=== PATIENT | female | born 1945 | race Caucasian/White ===

== ENCOUNTER 2021-05-31 20:54 | Inpatient (IN) ==
--- NOTE | 2021-05-31 22:07 | Emergency Department Note ---
HPI General Chief complaint: Blood Sugar Problem Stated complaint: weakness Time Seen by Provider: 05/31/21 21:56 Source: patient Mode of arrival: ambulatory Limitations: no limitations History of Present Illness HPI Narrative: Narrative: The patient is a 75-year-old female with a history of insulin-dependent diabetes presents today reporting elevated blood sugars. She denies chest pain, fevers, chills, night sweats, rashes, headache or neck pain. Denies any shortness of breath. Related Data Home Medications Medication Instructions Recorded Confirmed amlodipine 5 mg PO DAILY 09/18/17 01/05/21 calcium polycarbophil 1,250 mg PO DAILY 09/18/17 01/05/21 diazepam 5 mg PO TIDP PRN 09/18/17 01/05/21 gabapentin 800 mg PO QIDP 09/18/17 06/01/21 gemfibrozil 600 mg PO BIDAC 09/18/17 01/05/21 insulin NPH isoph U-100 human 60 unit SQ DAILY 09/18/17 01/05/21 [Novolin N] insulin regular human [Novolin R] 0 unit SQ TID 09/18/17 01/05/21 levothyroxine 125 mcg PO DAILY 09/18/17 01/05/21 axfqqwtc-fzj-qtes fum-folic ac 1 ea PO DAILY 09/18/17 01/05/21 omeprazole 20 mg PO BIDAC 09/18/17 01/05/21 pravastatin 20 mg PO HS 09/18/17 01/05/21 tizanidine 4 mg PO TID 09/18/17 01/05/21 propranolol 10 mg PO BID 09/25/17 06/01/21 vit C,Z-Kf-yptly-lutein-zeaxan 1 tab PO DAILY 02/25/18 01/05/21 [Ocuvite] acyclovir 400 mg tablet 400 mg PO QDAY 03/09/20 06/01/21 betamethasone dipropionate 0.05 % See Rx Instructions TOPICAL 03/09/20 01/05/21 topical ointment .COMPLEX escitalopram oxalate 10 mg tablet 10 mg PO QDAY 03/09/20 01/05/21 losartan 50 mg tablet 50 mg PO QDAY 03/09/20 06/01/21 atorvastatin 40 mg PO QHS 06/01/21 06/01/21 levothyroxine 100 mcg PO DAILY 06/01/21 06/01/21 ouuvog-jllyvqba-yrhjxmc [Zenpep] 40,000 cap PO TID 06/01/21 06/01/21 mirtazapine 7.5 mg PO DAILY 06/01/21 06/01/21 Previous Rx's Medication Instructions Recorded albuterol sulfate 1 puff IH Q4-6HP PRN #1 inhaler 09/25/17 naproxen 250 mg PO BIDCC #30 tab 11/13/17 metoclopramide HCl 10 mg PO Q6HP PRN #12 tab 02/25/18 azithromycin 0 mg PO DAILY #6 tab 04/24/18 methylprednisolone 1 packet PO DAILY #1 tab.ds.pk 04/24/18 Allergies Allergy/AdvReac Type Severity Reaction Status Date / Time cephalexin [From Keflex] Allergy Intermediate Swelling Verified 05/31/21 20:56 Nortriptyline Allergy Intermediate Nausea Verified 05/31/21 20:56 penicillin V [From Pen-Vee K] Allergy Intermediate UNKNOWN Verified 05/31/21 20:56 Anistreplase [From Eminase] Allergy Unknown UNKNOWN Verified 05/31/21 20:56 codeine Allergy Unknown UNKNOWN Verified 05/31/21 20:56 fenugreek Allergy Unknown UNKNOWN Verified 05/31/21 20:56 Penicillins Allergy Unknown UNKNOWN Verified 05/31/21 20:56 Sulfa (Sulfonamide Allergy Unknown UNKNOWN Verified 05/31/21 20:56 Antibiotics) promethazine AdvReac Severe Fainting Verified 05/31/21 20:56 Erythromycin Base AdvReac Intermediate Itching Verified 05/31/21 20:56 Review of Systems ROS ROS Narrative: Narrative: All systems ED: reviewed and negative except as stated. 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) Depression (Chronic) Anxiety (Chronic) Hypertension (Chronic) Osteoporosis (Chronic) Rectal pain (Chronic) Low back pain (Chronic) Pain in thoracic spine (Chronic) Age-related osteoporosis with current pathological fracture, vertebra(e), initial encounter for fracture (Chronic) Anemia (Acute) Elevated liver enzymes (Acute) Hyperglycemia due to type 2 diabetes mellitus (Acute) Medical History Acute exacerbation of chronic low back pain Acute exacerbation of chronic obstructive airways disease Age-related osteoporosis with current pathological fracture, vertebra(e), initial encounter for fracture Anterior epistaxis Anxiety Bilateral primary osteoarthritis of hip Bimalleolar ankle fracture Chronic bronchitis Chronic bronchitis with acute exacerbation Dehydration Depression Epistaxis Hypertension Hypoglycemia Hypothyroidism Hypoxia Insomnia Levator syndrome Lipomatosis Low back pain Osteoporosis Pain in thoracic spine Radiculopathy, lumbosacral region Radiculopathy, sacral and sacrococcygeal region Rectal pain Sacrococcygeal pain Surgical History History of surgery Vertebroplasty T12 w/sed 09/28/19 Family History Other No pertinent family history Social History Smoking Status: Never smoker Exam Narrative Narrative: Narrative: General Limitations: no limitations General appearance: Present alert Head Head: Present atraumatic and normocephalic Eye Eye: Present normal appearance, PERRL and EOMI ENT ENT: Present normal exam, normal oropharynx and mucous membranes moist Neck Neck: Present normal inspection, full ROM and trachea midline Chest Chest: Present normal inspection and symmetric chest wall rise Respiratory Respiratory: Present normal lung sounds bilaterally Cardiovascular Cardiovascular: Present regular rate and normal rhythm Adbominal Abdominal: Present soft and normal bowel sounds; Absent tenderness, guarding, rebound and organomegaly Rectal Rectal: Present deferred Extremities Extremities: Present normal inspection and full ROM; Absent tenderness Back Back: Present normal inspection and full ROM; Absent tenderness Neurological Neurological: Present alert, oriented X3, CN II-XII intact, normal gait, motor sensory deficit and reflexes normal Psychiatric Psychiatric: Present normal affect Skin Skin: Present warm (WNL); Absent rash Course Course Course Narrative: ekg interpretation. 05/31/21 11:29 EKG shows no STEMI., Nonspecific EKG. Rate 78, KS interval 160, QRS 88, QTc 488, P waves are upright in leads I, II and III and inverted in aVR, no KS depression or elevation lead II or aVR respectively normal axis, good R wave progression, no acute ST segment elevation depression, no shortened KS interval, no STEMI, nonspecific EKG. Vital Signs Vital signs: Vital Signs Temperature 98.1 F 05/31/21 20:54 Pulse Rate 83 05/31/21 20:54 Respiratory Rate 16 05/31/21 20:54 Blood Pressure 91/40 05/31/21 20:54 Pulse Oximetry (%) 98 05/31/21 20:54 Temperature 97.4 F 06/01/21 04:43 Pulse Rate 78 06/01/21 05:46 Respiratory Rate 14 06/01/21 05:46 Blood Pressure 122/76 06/01/21 04:43 Pulse Oximetry (%) 100 06/01/21 05:46 MDM MDM Narrative Medical decision making narrative: Narrative: Patient is noted to be mildly acidotic as well as have an elevated anion gap with presence of ketones. Her blood sugars have improved significantly. However she is in DKA she was started on insulin drip I spoke with the hospitalist Dr. Gregg who is agreed to admit this patient. Basic facilitated admission orders placed. Lab Data Result diagrams: 05/31/21 22:47 05/31/21 22:47 Labs: Lab Results 05/31/21 05/31/21 05/31/21 Range/Units 22:45 22:47 22:47 WBC 9.1 (4.5-11.0) K/mcL RBC 4.52 (3.59-5.38) M/mcL Hgb 13.7 (11.2-15.7) g/dL Hct 39.3 (34.1-44.9) % MCV 86.9 (80.0-100.0) fL MCH 30.3 (26.0-34.0) pg MCHC 34.9 (31.0-36.0) g/dL RDW 14.4 (11.5-14.5) % Plt Count 236 (140-440) K/mcL MPV 10.3 (7.4-10.4) fL Neut % (Auto) 57.4 (38.0-78.0) % Lymph % (Auto) 28.7 (15.5-49.0) % [place] % (Auto) 11.5 (1.0-12.0) % Eos % (Auto) 1.7 (0.0-7.0) % Baso % (Auto) 0.7 (0.0-2.0) % Lymph # (Auto) 2.61 (1.50-4.80) K/mcL [place] # (Auto) 1.04 H (0.10-0.90) K/mcL Eos # (Auto) 0.15 (0.00-0.70) K/mcL Baso # (Auto) 0.06 (0.00-0.30) K/mcL Absolute Neutrophils 5.22 (1.80-8.00) K/mcL ABG Methemoglobin 0 L (0.4-1.5) % VBG pH 7.28 L (7.32-7.42) U VBG pCO2 26.5 L (41.0-51.0) mmHg VBG pO2 38.6 (25.0-40.0) mmHg VBG HCO3 12.3 L (24.0-28.0) mmol/L VBG Total CO2 13.1 L (25.0-29.0) mmol/L VBG O2 Saturation 67.6 (40.0-70.0) % VBG Base Excess -13 L (-2-3) VBG Lactic Acid (0.5-2.0) mmol/L Carboxyhemoglobin 3.2 H (0.0-1.5) % THgb Total Hemoglobin 13.0 L (13.5-16.5) gm/Dl Sodium 130 L (133-145) mmol/L Potassium 3.8 (3.3-5.1) mmol/L Chloride 96 (96-108) mmol/L Carbon Dioxide 10 L* (22-30) mmol/L Anion Gap 24.0 H (8.0-16.0) BUN 25 H (8-23) mg/dL Creatinine 1.7 H (0.6-1.1) mg/dL GFR Calculation 29 Glucose 255 H (70-105) mg/dL Calcium 9.3 (8.6-10.4) mg/dL Magnesium 2.0 (1.6-2.5) mg/dL Total Bilirubin 0.3 (0.1-1.0) mg/dL AST 151 H (<32) U/L ALT 325 H (<40) U/L Alkaline Phosphatase 174 H (39-117) U/L Total Creatine Kinase (24-170) U/L Troponin T (<0.03) ng/mL NT-Pro-B Natriuret Pep (<450.0) pg/mL Total Protein 6.8 (5.9-8.4) gm/dL Albumin 3.7 (3.2-5.2) gm/dL Globulin 3.1 (2.2-3.7) gm/dL Albumin/Globulin Ratio 1.2 (1.0-2.3) Beta-Hydroxybutyrate 6.53 H (<0.27) mmol/L Ethyl Alcohol (<0.010) gm/dL 05/31/21 05/31/21 05/31/21 Range/Units 22:47 22:47 23:19 WBC (4.5-11.0) K/mcL RBC (3.59-5.38) M/mcL Hgb (11.2-15.7) g/dL Hct (34.1-44.9) % MCV (80.0-100.0) fL MCH (26.0-34.0) pg MCHC (31.0-36.0) g/dL RDW (11.5-14.5) % Plt Count (140-440) K/mcL MPV (7.4-10.4) fL Neut % (Auto) (38.0-78.0) % Lymph % (Auto) (15.5-49.0) % [place] % (Auto) (1.0-12.0) % Eos % (Auto) (0.0-7.0) % Baso % (Auto) (0.0-2.0) % Lymph # (Auto) (1.50-4.80) K/mcL [place] # (Auto) (0.10-0.90) K/mcL Eos # (Auto) (0.00-0.70) K/mcL Baso # (Auto) (0.00-0.30) K/mcL Absolute Neutrophils (1.80-8.00) K/mcL ABG Methemoglobin (0.4-1.5) % VBG pH (7.32-7.42) U VBG pCO2 (41.0-51.0) mmHg VBG pO2 (25.0-40.0) mmHg VBG HCO3 (24.0-28.0) mmol/L VBG Total CO2 (25.0-29.0) mmol/L VBG O2 Saturation (40.0-70.0) % VBG Base Excess (-2-3) VBG Lactic Acid 1.9 (0.5-2.0) mmol/L Carboxyhemoglobin (0.0-1.5) % THgb Total Hemoglobin (13.5-16.5) gm/Dl Sodium (133-145) mmol/L Potassium (3.3-5.1) mmol/L Chloride (96-108) mmol/L Carbon Dioxide (22-30) mmol/L Anion Gap (8.0-16.0) BUN (8-23) mg/dL Creatinine (0.6-1.1) mg/dL GFR Calculation Glucose (70-105) mg/dL Calcium (8.6-10.4) mg/dL Magnesium (1.6-2.5) mg/dL Total Bilirubin (0.1-1.0) mg/dL AST (<32) U/L ALT (<40) U/L Alkaline Phosphatase (39-117) U/L Total Creatine Kinase 82 (24-170) U/L Troponin T < 0.01 (<0.03) ng/mL NT-Pro-B Natriuret Pep (<450.0) pg/mL Total Protein (5.9-8.4) gm/dL Albumin (3.2-5.2) gm/dL Globulin (2.2-3.7) gm/dL Albumin/Globulin Ratio (1.0-2.3) Beta-Hydroxybutyrate (<0.27) mmol/L Ethyl Alcohol (<0.010) gm/dL 05/31/21 06/01/21 Range/Units 23:19 00:39 WBC (4.5-11.0) K/mcL RBC (3.59-5.38) M/mcL Hgb (11.2-15.7) g/dL Hct (34.1-44.9) % MCV (80.0-100.0) fL MCH (26.0-34.0) pg MCHC (31.0-36.0) g/dL RDW (11.5-14.5) % Plt Count (140-440) K/mcL MPV (7.4-10.4) fL Neut % (Auto) (38.0-78.0) % Lymph % (Auto) (15.5-49.0) % [place] % (Auto) (1.0-12.0) % Eos % (Auto) (0.0-7.0) % Baso % (Auto) (0.0-2.0) % Lymph # (Auto) (1.50-4.80) K/mcL [place] # (Auto) (0.10-0.90) K/mcL Eos # (Auto) (0.00-0.70) K/mcL Baso # (Auto) (0.00-0.30) K/mcL Absolute Neutrophils (1.80-8.00) K/mcL ABG Methemoglobin (0.4-1.5) % VBG pH (7.32-7.42) U VBG pCO2 (41.0-51.0) mmHg VBG pO2 (25.0-40.0) mmHg VBG HCO3 (24.0-28.0) mmol/L VBG Total CO2 (25.0-29.0) mmol/L VBG O2 Saturation (40.0-70.0) % VBG Base Excess (-2-3) VBG Lactic Acid (0.5-2.0) mmol/L Carboxyhemoglobin (0.0-1.5) % THgb Total Hemoglobin (13.5-16.5) gm/Dl Sodium (133-145) mmol/L Potassium (3.3-5.1) mmol/L Chloride (96-108) mmol/L Carbon Dioxide (22-30) mmol/L Anion Gap (8.0-16.0) BUN (8-23) mg/dL Creatinine (0.6-1.1) mg/dL GFR Calculation Glucose (70-105) mg/dL Calcium (8.6-10.4) mg/dL Magnesium (1.6-2.5) mg/dL Total Bilirubin (0.1-1.0) mg/dL AST (<32) U/L ALT (<40) U/L Alkaline Phosphatase (39-117) U/L Total Creatine Kinase (24-170) U/L Troponin T (<0.03) ng/mL NT-Pro-B Natriuret Pep 908.9 H (<450.0) pg/mL Total Protein (5.9-8.4) gm/dL Albumin (3.2-5.2) gm/dL Globulin (2.2-3.7) gm/dL Albumin/Globulin Ratio (1.0-2.3) Beta-Hydroxybutyrate (<0.27) mmol/L Ethyl Alcohol < 0.010 (<0.010) gm/dL ED POC Tests ED POC Tests: SHAHID - SARS Antigen Negative Discharge Plan Patient/Caregiver Discharge Instructions Pt seen by TRAIN CALLER/PA only: No Clinical Impression: DKA (diabetic ketoacidosis) Qualifiers: Diabetes mellitus type: other specified (including JACEK) Diabetes mellitus complication detail: without coma Qualified Code(s): E13.10 - Other specified diabetes mellitus with ketoacidosis without coma Patient Disposition: Xfer As Inpt ([facility]) Condition: Serious Discharge Date/Time: 06/01/21 03:02
[2021-05-31] MEDS ORDERED: 0.9 % SODIUM CHLORIDE 1,000 ML IV ONE ×2 (22:20→23:12)
[2021-05-31 23:09] LABS: ABG Methemoglobin 0 % (0.4-1.5); VBG Base Excess -13 (-2-3); VBG HCO3 12.3 mmol/L (24.0-28.0); VBG Oxygen Saturation 67.6 % (40.0-70.0); VBG PCO2 26.5 mmHg (41.0-51.0); VBG PH 7.28 U (7.32-7.42); VBG PO2 38.6 mmHg (25.0-40.0); VBG Total CO2 13.1 mmol/L (25.0-29.0)
[2021-05-31 23:12] LABS: Basophils # (Auto) 0.06 K/mcL (0.00-0.30); Basophils % (Auto) 0.7 % (0.0-2.0); Eosinophils # (Auto) 0.15 K/mcL (0.00-0.70); Eosinophils % (Auto) 1.7 % (0.0-7.0); Hematocrit 39.3 % (34.1-44.9); Hemoglobin 13.7 g/dL (11.2-15.7); Lymphocytes # (Auto) 2.61 K/mcL (1.50-4.80); Lymphocytes % (Auto) 28.7 % (15.5-49.0); Mean Cell Volume 86.9 fL (80.0-100.0); Mean Corpuscular HGB Conc 34.9 g/dL (31.0-36.0); Mean Platelet Volume 10.3 fL (7.4-10.4); Monocytes # (Auto) 1.04 K/mcL (0.10-0.90); Monocytes % (Auto) 11.5 % (1.0-12.0); Neutrophils % (Auto) 57.4 % (38.0-78.0); Platelet Count 236 K/mcL (140-440); RBC 4.52 M/mcL (3.59-5.38); Red Cell Distribution Width 14.4 % (11.5-14.5); WBC 9.1 K/mcL (4.5-11.0)
[2021-05-31 23:50] LABS: Creatine Kinase 82 U/L (24-170)
[2021-05-31 23:55] LABS: ALT/SGPT 325 U/L (<40); AST/SGOT 151 U/L (<32); Albumin 3.7 gm/dL (3.2-5.2); Albumin/Globulin Ratio 1.2 (1.0-2.3); Alkaline Phosphatase 174 U/L (39-117); Bilirubin,Total 0.3 mg/dL (0.1-1.0); Blood Urea Nitrogen 25 mg/dL (8-23); Calcium 9.3 mg/dL (8.6-10.4); Carbon Dioxide 10 mmol/L (22-30); Chloride 96 mmol/L (96-108); Globulin 3.1 gm/dL (2.2-3.7); Glomerular Filtration Rate 29; Glucose 255 mg/dL (70-105)
[2021-06-01 00:03] LABS: Beta Hydroxybutyrate 6.53 mmol/L (<0.27)
[2021-06-01] MEDS ORDERED: INSULIN REGULAR, HUMAN 50 UNIT in 0.9 % SODIUM CHLORIDE 99.5 ML IV SCH ×3 (00:15→16:00)
[2021-06-01] MEDS ORDERED: ONDANSETRON 4 MG/2 ML VIAL IV PRN ×2 (00:40→03:10)
[2021-06-01] MEDS ORDERED: 0.9 % SODIUM CHLORIDE 1,000 ML IV SCH (00:45)
--- NOTE | 2021-06-01 00:46 | Internal Med History&Physical ---
HPI History of Present Illness Patient information: Note initiated : 06/01/21 at 12:44 am Service Date, if different from initiated Date: [] Patient: Tennille Castillo 75 y/o F admitted on for weakness. Chief Complaint: [] History of present illness: Ms. Castillo is a 75 year old female with a history of insulin dependent diabetes mellitus preanted to the ED in diabetic ketoacidosis probably because she was not taking her insulin. The patient was started on an insulin drip, hospital medicine was consulted for hospital admission. The patient denies chest pain, no fevers or chills and clinically she does not appear to have an underlying infection. The patient said she was "in a fog" for several days and did not take her insulin during that time. She lives alone, suffers from chronic back pain, radiculopathy and rectal spasms. She also has hypertension and hypothyroidism. Review of systems Constitutional: no fever, fatigue, or weight loss Eyes: no vision changes or pain Cardiovascular: no chest pain, no palpitations Respiratory: no cough or dyspnea Gastrointestinal: no abdominal pain, no nausea, vomiting, or diarrhea Genitourinary: no dysuria or difficulty voiding Musculoskeletal: positive for back pain Integumentary: no skin lesion or wound Neurological: no focal weakness or numbness Psychiatric: no anxiety or depression Physical exam Head: Atraumatic, normal inspection. Eyes: normal appearance, no scleral icterus. Neck: full ROM Respiratory: no respiratory distress. Cardiovascular: normal rate and rhythm, S1, S2. GI/Abdominal: soft, nontender, no guarding. Extremities: full range of motion, nontender. Neurological: CN II-XII intact, intact motor, intact sensation. 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) Depression (Chronic) Anxiety (Chronic) Hypertension (Chronic) Osteoporosis (Chronic) Rectal pain (Chronic) Low back pain (Chronic) Pain in thoracic spine (Chronic) Age-related osteoporosis with current pathological fracture, vertebra(e), initial encounter for fracture (Chronic) Anemia (Acute) Elevated liver enzymes (Acute) Hyperglycemia due to type 2 diabetes mellitus (Acute) Medical History Acute exacerbation of chronic low back pain Acute exacerbation of chronic obstructive airways disease Age-related osteoporosis with current pathological fracture, vertebra(e), initial encounter for fracture Anterior epistaxis Anxiety Bilateral primary osteoarthritis of hip Bimalleolar ankle fracture Chronic bronchitis Chronic bronchitis with acute exacerbation Dehydration Depression Epistaxis Hypertension Hypoglycemia Hypothyroidism Hypoxia Insomnia Levator syndrome Lipomatosis Low back pain Osteoporosis Pain in thoracic spine Radiculopathy, lumbosacral region Radiculopathy, sacral and sacrococcygeal region Rectal pain Sacrococcygeal pain Surgical History History of surgery Vertebroplasty T12 w/sed 09/28/19 Family History Other No pertinent family history MEDS/ALLERGIES Home Medications and Allergies Home Medications Medication Instructions Recorded Confirmed Type calcium polycarbophil 1,250 mg PO DAILY 09/18/17 06/01/21 History gabapentin 800 mg PO QIDP 09/18/17 06/01/21 History insulin regular human [Novolin R] See Rx Instructions .ROUTE .COMPLEX 09/18/17 06/01/21 History ltnltgll-vtu-hfcq fum-folic ac 1 ea PO DAILY 09/18/17 06/01/21 History albuterol sulfate 1 puff IH Q4-6HP PRN #1 inhaler 09/25/17 06/01/21 Rx propranolol 10 mg PO BID 09/25/17 06/01/21 History vit C,N-At-jhken-lutein-zeaxan 1 tab PO DAILY 02/25/18 06/01/21 History [Ocuvite] acyclovir 400 mg tablet 400 mg PO QDAY 03/09/20 06/01/21 History betamethasone dipropionate 0.05 % See Rx Instructions TOPICAL 03/09/20 06/01/21 History topical ointment .COMPLEX losartan 50 mg tablet 50 mg PO QDAY 03/09/20 06/01/21 History atorvastatin 40 mg PO QHS 06/01/21 06/01/21 History insulin degludec [Tresiba U-100 25 unit SUBCUT BID 06/01/21 06/01/21 History Insulin] levothyroxine 100 mcg PO DAILY 06/01/21 06/01/21 History ocvcxq-kkscxpfq-foncgfk [Zenpep] 40,000 cap PO TID 06/01/21 06/01/21 History mirtazapine 7.5 mg PO DAILY 06/01/21 06/01/21 History Allergies Allergy/AdvReac Type Severity Reaction Status Date / Time cephalexin [From Keflex] Allergy Intermediate Swelling Verified 05/31/21 20:56 Nortriptyline Allergy Intermediate Nausea Verified 05/31/21 20:56 penicillin V [From Pen-Vee K] Allergy Intermediate UNKNOWN Verified 05/31/21 20:56 Anistreplase [From Eminase] Allergy Unknown UNKNOWN Verified 05/31/21 20:56 codeine Allergy Unknown UNKNOWN Verified 05/31/21 20:56 fenugreek Allergy Unknown UNKNOWN Verified 05/31/21 20:56 Penicillins Allergy Unknown UNKNOWN Verified 05/31/21 20:56 Sulfa (Sulfonamide Allergy Unknown UNKNOWN Verified 05/31/21 20:56 Antibiotics) promethazine AdvReac Severe Fainting Verified 05/31/21 20:56 Erythromycin Base AdvReac Intermediate Itching Verified 05/31/21 20:56 EXAM Constitutional Vitals: Temp Pulse Resp BP Pulse Ox 98.1 F 74 16 120/48 99 05/31/21 20:54 06/01/21 00:38 05/31/21 20:54 06/01/21 00:31 06/01/21 00:38 DATA Data Completed and Pending Labs: Labs from last 24 hours 06/01/21 05/31/21 05/31/21 00:39 23:19 23:19 WBC RBC Hgb Hct MCV MCH MCHC RDW Plt Count MPV Neut % (Auto) Lymph % (Auto) [place] % (Auto) Eos % (Auto) Baso % (Auto) Lymph # (Auto) [place] # (Auto) Eos # (Auto) Baso # (Auto) Absolute Neutrophils ABG Methemoglobin VBG pH VBG pCO2 VBG pO2 VBG HCO3 VBG Total CO2 VBG O2 Saturation VBG Base Excess VBG Lactic Acid Carboxyhemoglobin Total Hemoglobin Sodium Potassium Chloride Carbon Dioxide Anion Gap BUN Creatinine GFR Calculation Glucose Calcium Magnesium Total Bilirubin AST ALT Alkaline Phosphatase Total Creatine Kinase Troponin T < 0.01 NT-Pro-B Natriuret Pep 908.9 H Total Protein Albumin Globulin Albumin/Globulin Ratio Beta-Hydroxybutyrate Ethyl Alcohol Pending 05/31/21 05/31/21 05/31/21 22:47 22:47 22:47 WBC 9.1 RBC 4.52 Hgb 13.7 Hct 39.3 MCV 86.9 MCH 30.3 MCHC 34.9 RDW 14.4 Plt Count 236 MPV 10.3 Neut % (Auto) 57.4 Lymph % (Auto) 28.7 [place] % (Auto) 11.5 Eos % (Auto) 1.7 Baso % (Auto) 0.7 Lymph # (Auto) 2.61 [place] # (Auto) 1.04 H Eos # (Auto) 0.15 Baso # (Auto) 0.06 Absolute Neutrophils 5.22 ABG Methemoglobin VBG pH VBG pCO2 VBG pO2 VBG HCO3 VBG Total CO2 VBG O2 Saturation VBG Base Excess VBG Lactic Acid 1.9 Carboxyhemoglobin Total Hemoglobin Sodium Potassium Chloride Carbon Dioxide Anion Gap BUN Creatinine GFR Calculation Glucose Calcium Magnesium Total Bilirubin AST ALT Alkaline Phosphatase Total Creatine Kinase 82 Troponin T NT-Pro-B Natriuret Pep Total Protein Albumin Globulin Albumin/Globulin Ratio Beta-Hydroxybutyrate Ethyl Alcohol 05/31/21 05/31/21 22:47 22:45 WBC RBC Hgb Hct MCV MCH MCHC RDW Plt Count MPV Neut % (Auto) Lymph % (Auto) [place] % (Auto) Eos % (Auto) Baso % (Auto) Lymph # (Auto) [place] # (Auto) Eos # (Auto) Baso # (Auto) Absolute Neutrophils ABG Methemoglobin 0 L VBG pH 7.28 L VBG pCO2 26.5 L VBG pO2 38.6 VBG HCO3 12.3 L VBG Total CO2 13.1 L VBG O2 Saturation 67.6 VBG Base Excess -13 L VBG Lactic Acid Carboxyhemoglobin 3.2 H Total Hemoglobin 13.0 L Sodium 130 L Potassium 3.8 Chloride 96 Carbon Dioxide 10 L* Anion Gap 24.0 H BUN 25 H Creatinine 1.7 H GFR Calculation 29 Glucose 255 H Calcium 9.3 Magnesium 2.0 Total Bilirubin 0.3 AST 151 H ALT 325 H Alkaline Phosphatase 174 H Total Creatine Kinase Troponin T NT-Pro-B Natriuret Pep Total Protein 6.8 Albumin 3.7 Globulin 3.1 Albumin/Globulin Ratio 1.2 Beta-Hydroxybutyrate 6.53 H Ethyl Alcohol A/P Narrative A/P Narrative: Assessment: 75 year old female with insulin dependent diabetes mellitus admitted for diabetic ketoacidosis likely secondary to noncompliance with insulin. #Diabetic ketoacidosis #Acute kidney injury #Elevated LFTs #Urinary retention #Diabetes mellitus #Hypertension #Hypothyroidism #Chronic back pain with radiculopathy Plan -Insulin infusion, follow anion gap and electrolytes-replace prn. -Transition to basal/bolus insulin when anion gap is normal -IV normal saline -Bladder scan/straight cath prn -Home medication reconciliation, resume essential meds. -DVT ppx: heparin SQ -Code status: DNR Time Spent With Patient Time: Total time spent is greater than 50% in coordination of care (as documented) at patient's floor/unit and/or counseling patient:
[2021-06-01] MEDS ORDERED: fentaNYL 100 MCG/2 ML VIAL IV ONE (01:05)
[2021-06-01 01:55] LABS: Alcohol, Blood < 10.0 mg/dL; Alcohol,Blood < 0.010 gm/dL (<0.010)
[2021-06-01] MEDS ORDERED: LACTULOSE 20 GM/30 ML ORAL.SOL PO PRN (03:10)
[2021-06-01] MEDS ORDERED: SENNOSIDES 1 TABLET PO PRN (03:10)
[2021-06-01] MEDS: DEXTROSE 5%-1/2NS 1,000 ML IV SCH ×2 (03:22→13:31)
[2021-06-01] MEDS: 0.9 % SODIUM CHLORIDE 10 ML SYRINGE IV SCH ×6 (05:41→22:39)
[2021-06-01 06:04] LABS: ABG Methemoglobin 0.3 % (0.4-1.5); Total Hemoglobin 12.2 gm/Dl (13.5-16.5); VBG Base Excess -10 (-2-3); VBG HCO3 15.5 mmol/L (24.0-28.0); VBG Oxygen Saturation 84.3 % (40.0-70.0); VBG PCO2 32.6 mmHg (41.0-51.0); VBG PO2 60.8 mmHg (25.0-40.0); VBG Total CO2 16.5 mmol/L (25.0-29.0)
--- NOTE | 2021-06-01 06:25 | EKG ---
[facility] Test Date: 2021-05-31 Pat Name: Tennille Castillo Department: ED Room: Gender: Female Senior [employer]: : 1945 Requested By: Darnell Ramos Order Number: [id number] Reading MD: Danny Milian Measurements Intervals [place] Rate: 78 P: 59 TX: 160 QRS: 36 QRSD: 88 T: 70 QT: 428 QTc: 488 Interpretive Statements SINUS RHYTHM BORDERLINE PROLONGED QT INTERVAL Electronically Signed On 06-01-2021 6:25:53 PDT by Danny Milian /store/M0/[id number].pdf
[2021-06-01 06:34] LABS: ALT/SGPT 262 U/L (<40); AST/SGOT 116 U/L (<32); Albumin 2.9 gm/dL (3.2-5.2); Alkaline Phosphatase 150 U/L (39-117); Bilirubin,Direct < 0.2 mg/dL (0-0.3); Bilirubin,Total 0.3 mg/dL (0.1-1.0); Blood Urea Nitrogen 19 mg/dL (8-23); Calcium 8.2 mg/dL (8.6-10.4); Carbon Dioxide 13 mmol/L (22-30); Chloride 103 mmol/L (96-108); Glomerular Filtration Rate 40; Glucose 165 mg/dL (70-105); Lactate Dehydrogenase 195 U/L (135-225); Triglycerides 466 mg/dL (<150); Uric Acid 7.7 mg/dL (2.5-8.0)
--- NOTE | 2021-06-01 08:07 | XRay Report ---
HISTORY: Increased weakness, chronic bronchitis, prior pneumonia FINDINGS: Subtle increased interstitial lung markings are present in the left lower lobe and lingula. A diffuse pneumonia was seen in this region on the prior x-ray done on 04/24/18. The findings on today's study probably represent residual mild interstitial fibrosis. Right lung is clear. No new infiltrate has developed. There is no mass, pulmonary vascular congestion, pleural effusion or adenopathy. The heart is normal in size and contour. There are calcified plaques in the aortic arch. IMPRESSION: Subtle interstitial lung disease in the left lower thorax which may be fibrosis. The exam is otherwise normal. Interpreted and Authenticated by: Allan Lawler 06/01/21
[2021-06-01] MEDS ORDERED: INSULIN GLARGINE, HUMAN 1 UNIT/0.01 ML SQ SCH (09:00)
[2021-06-01 09:03] LABS: ABG Methemoglobin 0.3 % (0.4-1.5); Total Hemoglobin 12.6 gm/Dl (13.5-16.5); VBG Base Excess -9 (-2-3); VBG HCO3 17.6 mmol/L (24.0-28.0); VBG Oxygen Saturation 66.9 % (40.0-70.0); VBG PCO2 40.5 mmHg (41.0-51.0); VBG PH 7.26 U (7.32-7.42); VBG PO2 36.5 mmHg (25.0-40.0); VBG Total CO2 18.8 mmol/L (25.0-29.0)
[2021-06-01] MEDS: HEPARIN 5,000 UNIT/ML VIAL SQ SCH ×2 (09:23→21:58)
[2021-06-01 09:28] LABS: Albumin 3.5 gm/dL (3.2-5.2); Blood Urea Nitrogen 19 mg/dL (8-23); Calcium 8.5 mg/dL (8.6-10.4); Carbon Dioxide 17 mmol/L (22-30); Chloride 102 mmol/L (96-108); Glomerular Filtration Rate 44; Glucose 227 mg/dL (70-105); Phosphorous 1.7 mg/dL (2.5-4.5)
[2021-06-01] MEDS ORDERED: ACETAMINOPHEN 325 MG TABLET PO PRN (10:47)
[2021-06-01] MEDS ORDERED: KETOROLAC 15 MG/ML VIAL IV ONE (11:01)
[2021-06-01] MEDS: 0.9 % SODIUM CHLORIDE 1,000 ML IV SCH ×2 (11:18→21:22)
[2021-06-01 12:27] LABS: ABG Methemoglobin 0.3 % (0.4-1.5); Total Hemoglobin 11.4 gm/Dl (13.5-16.5); VBG Base Excess -7 (-2-3); VBG HCO3 19.1 mmol/L (24.0-28.0); VBG Oxygen Saturation 78.6 % (40.0-70.0); VBG PCO2 42.4 mmHg (41.0-51.0); VBG PH 7.27 U (7.32-7.42); VBG PO2 46.9 mmHg (25.0-40.0); VBG Total CO2 20.4 mmol/L (25.0-29.0)
[2021-06-01] MEDS: HYDROmorphone 0.5 MG/0.5 ML SYRINGE IV PRN (12:28)
[2021-06-01 12:49] LABS: Albumin 2.9 gm/dL (3.2-5.2); Blood Urea Nitrogen 18 mg/dL (8-23); Calcium 7.8 mg/dL (8.6-10.4); Carbon Dioxide 16 mmol/L (22-30); Chloride 101 mmol/L (96-108); Glomerular Filtration Rate 49; Glucose 405 mg/dL (70-105); Phosphorous 1.1 mg/dL (2.5-4.5)
[2021-06-01 13:12] LABS: Hemoglobin A1C 13.2 % Hgb (4.0-6.0)
[2021-06-01 15:37] LABS: ABG Methemoglobin 0.3 % (0.4-1.5); VBG Base Excess -6 (-2-3); VBG HCO3 19.3 mmol/L (24.0-28.0); VBG Oxygen Saturation 86.9 % (40.0-70.0); VBG PH 7.32 U (7.32-7.42); VBG Total CO2 20.5 mmol/L (25.0-29.0)
[2021-06-01 16:43] LABS: Blood Urea Nitrogen 18 mg/dL (8-23); Carbon Dioxide 17 mmol/L (22-30); Chloride 101 mmol/L (96-108); Glomerular Filtration Rate 36; Glucose 374 mg/dL (70-105); Phosphorous 1.8 mg/dL (2.5-4.5)
[2021-06-01 17:43] LABS: Amphetamine Screen,Urine None detected; Barbiturate Screen,Urine None detected; Benzodiazepines Screen,Urine None detected; Cannabinoid Screen,Urine None detected; Cocaine Screen,Urine None detected; Opiate Screen,Urine None detected; Oxycodone, Urine Screen None detected; Phencyclidine Screen,Urine None detected
[2021-06-01 17:49] LABS: Appearance,Urine HAZY (Clear); Bacteria,Urine FEW /hpf (0); Bilirubin,Urine Negative (Negative); Color,Urine YELLOW; Culture Indicated,Urine yes; Glucose,Urine (UA) 50 mg/dL (Negative); Ketones,Urine 20 mg/dL (Negative); Leukocyte Esterase,Urine 500 /ug (Negative); Mucus,Urine FEW /hpf; Nitrate,Urine Negative (Negative); Protein,Urine Negative (Negative); Specific Gravity,Urine 1.009 (1.000-1.035); Urine Blood Negative (Negative); Urine Hyaline Cast 3 /lph (0-2); Urine RBC 4 /hpf (0-3); Urine Squamous Epithelial Cell < 1 /hpf (0-4); Urine WBC 63 /hpf (0-4); Urobilinogen,Urine Negative
[2021-06-01] MEDS ORDERED: ALBUTEROL SULFATE 200 PUFF INHALER IH PRN (18:31)
[2021-06-01] MEDS ORDERED: DEXTROSE 50% 50 ML VIAL IV PRN (18:34)
[2021-06-01] MEDS ORDERED: DEXTROSE 31 GM ORAL.SUSP PO PRN (18:34)
[2021-06-01] MEDS ORDERED: POTASSIUM CHLORIDE 20 MEQ TABLET PO ONE (18:37)
[2021-06-01] MEDS ORDERED: GABAPENTIN 400 MG CAPSULE PO SCH (18:45)
[2021-06-01 20:00] LABS: ABG Methemoglobin 0.3 % (0.4-1.5); Total Hemoglobin 10.9 gm/Dl (13.5-16.5); VBG Base Excess -5 (-2-3); VBG HCO3 19.5 mmol/L (24.0-28.0); VBG Oxygen Saturation 90.1 % (40.0-70.0); VBG PH 7.36 U (7.32-7.42); VBG PO2 77.6 mmHg (25.0-40.0); VBG Total CO2 20.6 mmol/L (25.0-29.0)
[2021-06-01 20:27] LABS: Albumin 2.8 gm/dL (3.2-5.2); Blood Urea Nitrogen 17 mg/dL (8-23); Calcium 7.9 mg/dL (8.6-10.4); Carbon Dioxide 18 mmol/L (22-30); Chloride 102 mmol/L (96-108); Glomerular Filtration Rate 49; Glucose 252 mg/dL (70-105); Phosphorous 1.2 mg/dL (2.5-4.5)
[2021-06-01] MEDS ORDERED: ATORVASTATIN 40 MG TABLET PO SCH (21:00)
[2021-06-01] MEDS ORDERED: SENNOSIDES 1 TABLET PO SCH (21:00)
[2021-06-01] MEDS: NEUTRA PHOS 1 PACKET PO SCH (21:56)
[2021-06-01] MEDS: INSULIN LISPRO 1 UNIT/0.01 ML UNIT SQ SCH (21:57)
[2021-06-02 01:52] LABS: Albumin 2.9 gm/dL (3.2-5.2); Blood Urea Nitrogen 16 mg/dL (8-23); Calcium 7.9 mg/dL (8.6-10.4); Carbon Dioxide 17 mmol/L (22-30); Chloride 104 mmol/L (96-108); Glomerular Filtration Rate 49; Glucose 404 mg/dL (70-105); Phosphorous 1.9 mg/dL (2.5-4.5)
[2021-06-02] MEDS: DEXTROSE 5%-1/2NS 1,000 ML IV SCH (02:42)
[2021-06-02] MEDS: 0.9 % SODIUM CHLORIDE 10 ML SYRINGE IV SCH ×3 (04:50→20:53)
[2021-06-02] MEDS ORDERED: LEVOTHYROXINE 100 MCG TABLET PO SCH (07:30)
[2021-06-02] MEDS: 0.9 % SODIUM CHLORIDE 1,000 ML IV SCH (08:12)
[2021-06-02] MEDS: INSULIN LISPRO 1 UNIT/0.01 ML UNIT SQ SCH ×8 (08:20→20:49)
[2021-06-02] MEDS: HYDROmorphone 0.5 MG/0.5 ML SYRINGE IV PRN (08:21)
[2021-06-02] MEDS ORDERED: PROTEASE PO SCH (09:00)
[2021-06-02] MEDS ORDERED: INSULIN GLARGINE, HUMAN 1 UNIT/0.01 ML SQ SCH (09:00)
[2021-06-02] MEDS ORDERED: AMYLASE PO SCH (09:00)
[2021-06-02] MEDS ORDERED: LIPASE PO SCH (09:00)
[2021-06-02 09:34] LABS: ALT/SGPT 184 U/L (<40); AST/SGOT 63 U/L (<32); Albumin/Globulin Ratio 1.1 (1.0-2.3); Alkaline Phosphatase 137 U/L (39-117); Bilirubin,Direct < 0.2 mg/dL (0-0.3); Bilirubin,Total 0.3 mg/dL (0.1-1.0); Blood Urea Nitrogen 9 mg/dL (8-23); Calcium 7.9 mg/dL (8.6-10.4); Carbon Dioxide 18 mmol/L (22-30); Chloride 105 mmol/L (96-108); Globulin 2.8 gm/dL (2.2-3.7); Glomerular Filtration Rate 72; Glucose 403 mg/dL (70-105); Lactate Dehydrogenase 185 U/L (135-225); Triglycerides 479 mg/dL (<150); Uric Acid 6.1 mg/dL (2.5-8.0)
[2021-06-02] MEDS: NEUTRA PHOS 1 PACKET PO SCH (10:50)
[2021-06-02] MEDS: HEPARIN 5,000 UNIT/ML VIAL SQ SCH (10:50)
[2021-06-02] MEDS ORDERED: POTASSIUM PHOSPHATE 40 MEQ in DEXTROSE 5% IN WATER 500 ML IV ONE (11:24)
[2021-06-02] MEDS ORDERED: DEXTROSE 31 GM ORAL.SUSP PO PRN (11:57)
[2021-06-02] MEDS ORDERED: ONDANSETRON 4 MG/2 ML VIAL IV PRN (11:57)
[2021-06-02] MEDS ORDERED: LACTULOSE 20 GM/30 ML ORAL.SOL PO PRN (11:57)
[2021-06-02] MEDS ORDERED: HYDROmorphone 0.5 MG/0.5 ML SYRINGE IV PRN ×2 (11:57→18:25)
[2021-06-02] MEDS ORDERED: ACETAMINOPHEN 325 MG TABLET PO PRN (11:57)
[2021-06-02] MEDS ORDERED: DEXTROSE 50% 50 ML VIAL IV PRN (11:57)
[2021-06-02] MEDS ORDERED: SENNOSIDES 1 TABLET PO PRN (11:57)
[2021-06-02] MEDS ORDERED: ALBUTEROL SULFATE 200 PUFF INHALER IH PRN (11:57)
[2021-06-02] MEDS ORDERED: 0.9 % SODIUM CHLORIDE 1,000 ML IV SCH (11:57)
[2021-06-02] MEDS ORDERED: INSULIN GLARGINE, HUMAN 1 UNIT/0.01 ML SQ ONE (12:06)
[2021-06-02] MEDS ORDERED: KETOROLAC 15 MG/ML VIAL IV PRN (12:07)
[2021-06-02] MEDS: LIPASE PO SCH ×2 (14:23→20:30)
[2021-06-02] MEDS: AMYLASE PO SCH ×2 (14:23→20:30)
[2021-06-02] MEDS: PROTEASE PO SCH ×2 (14:23→20:30)
--- NOTE | 2021-06-02 14:35 | Internal Med Progress Note ---
SUBJECTIVE Subjective Patient information: Note initiated : 06/02/21 at 2:31 pm Service Date, if different from initiated Date: [] Patient: Tennille Castillo 75 y/o F admitted on 06/01/21 for weakness. Chief Complaint: [] Interval history: Ms. Castillo is a 75 year old female with a history of insulin dependent diabetes mellitus preanted to the ED in diabetic ketoacidosis probably because she was not taking her insulin. The patient was started on an insulin drip, hospital medicine was consulted for hospital admission. The patient denies chest pain, no fevers or chills and clinically she does not appear to have an underlying infection. The patient said she was "in a fog" for several days and did not take her insulin during that time. She lives alone, suffers from chronic back pain, radiculopathy and rectal spasms. She also has hypertension and hypothyroidism. 06/02: transitioned to basal/bolus subcutaneous insulin, the patient feels better eating well,, back pain improved, replaced phosphorus, discontinued IV fluid, transfer to med/surg. Physical exam Head: Atraumatic, normal inspection. Eyes: normal appearance, no scleral icterus. Neck: full ROM Respiratory: no respiratory distress. Cardiovascular: normal rate and rhythm, S1, S2. GI/Abdominal: soft, nontender, no guarding. Extremities: full range of motion, nontender. Neurological: CN II-XII intact, intact motor, intact sensation. Psychiatric: depressed mood Skin: warm, normal color Constitutional Vitals: Vital Signs Temp Pulse Resp BP Pulse Ox 97.2 F 90 19 153/72 96 06/02/21 08:01 06/02/21 12:01 06/02/21 12:01 06/02/21 12:01 06/02/21 12:01 Period Temp Pulse Resp BP Sys/Rosario Pulse Ox Last 24 Hr 97.0 F-98.4 F 77-91 12-19 110-171/47-73 93-100 Intake and Output 06/02/21 06/02/21 06/02/21 05:59 13:59 21:59 Intake Total 300 1575 Output Total 9855 079 0301 Balance -1550 775 -1500 Weight 84.005 kg Patient Weight 06/03/21 05:59 Weight 84.005 kg Intake & Output: Intake & Output 06/02/21 06/02/2121 05:59 13:59 21:59 Intake Total 300 1575 Output Total 0975 486 8595 Balance -1550 775 -1500 Weight 84.005 kg Intake: IV 1575 Sodium Chloride 0.9% 1,000 ml @ 1575 100 mls/hr IV .Q10H [facility] Rx#: [id number] Oral 300 Output: Void Amount 3728 [id number] Other: Meal Breakfast Percent of Meal Consumed 100% Feeding Ability Independent Urine Appearance Clear Clear Urine Color Bright Yellow Bright Yellow Light Brittani Urine Odor Normal Normal Stool Size Smear Large Stool Color Brown Brown Stool Consistency Soft Soft # Bowel Movements 1 OBJ DATA Labs CBC & Chem 7: 05/31/21 22:47 06/02/21 08:02 Labs: Abnormal Lab Results 06/02/21 06/01/21 06/01/21 08:02 23:18 19:40 [place] # (Auto) ABG Methemoglobin 0.3 L VBG pH VBG pCO2 35.0 L VBG pO2 77.6 H VBG HCO3 19.5 L VBG Total CO2 20.6 L VBG O2 Saturation 90.1 H VBG Base Excess -5 L Carboxyhemoglobin 5.3 H Total Hemoglobin 10.9 L Sodium Potassium Carbon Dioxide 18 L 17 L Anion Gap BUN Creatinine Glucose 403 H 404 H Hemoglobin A1c Calcium 7.9 L 7.9 L Phosphorus 1.0 L 1.9 L GGT 133 H AST 63 H ALT 184 H Alkaline Phosphatase 137 H NT-Pro-B Natriuret Pep Total Protein 5.8 L Albumin 3.0 L 2.9 L Triglycerides 479 H Beta-Hydroxybutyrate Urine Appearance Urine Glucose (UA) Urine Ketones Ur Leukocyte Esterase Urine RBC Urine WBC Urine Bacteria Hyaline Casts Urine Mucus 06/01/21 06/01/21 06/01/21 19:40 15:45 15:15 [place] # (Auto) ABG Methemoglobin 0.3 L VBG pH VBG pCO2 38.0 L VBG pO2 62.0 H VBG HCO3 19.3 L VBG Total CO2 20.5 L VBG O2 Saturation 86.9 H VBG Base Excess -6 L Carboxyhemoglobin 4.7 H Total Hemoglobin 11.0 L Sodium Potassium 3.2 L Carbon Dioxide 18 L Anion Gap BUN Creatinine Glucose 252 H Hemoglobin A1c Calcium 7.9 L Phosphorus 1.2 L GGT AST ALT Alkaline Phosphatase NT-Pro-B Natriuret Pep Total Protein Albumin 2.8 L Triglycerides Beta-Hydroxybutyrate Urine Appearance Hazy A Urine Glucose (UA) 50 A Urine Ketones 20 A Ur Leukocyte Esterase 500 A Urine RBC 4 H Urine WBC 63 H Urine Bacteria Few A Hyaline Casts 3 H Urine Mucus Few A 06/01/21 06/01/21 06/01/21 15:15 11:55 11:55 [place] # (Auto) ABG Methemoglobin 0.3 L VBG pH 7.27 L VBG pCO2 VBG pO2 46.9 H VBG HCO3 19.1 L VBG Total CO2 20.4 L VBG O2 Saturation 78.6 H VBG Base Excess -7 L Carboxyhemoglobin 4.5 H Total Hemoglobin 11.4 L Sodium 130 L Potassium Carbon Dioxide 17 L 16 L Anion Gap BUN Creatinine 1.4 H Glucose 374 H 405 H Hemoglobin A1c Calcium 8.0 L 7.8 L Phosphorus 1.8 L 1.1 L GGT AST ALT Alkaline Phosphatase NT-Pro-B Natriuret Pep Total Protein Albumin 3.0 L 2.9 L Triglycerides Beta-Hydroxybutyrate Urine Appearance Urine Glucose (UA) Urine Ketones Ur Leukocyte Esterase Urine RBC Urine WBC Urine Bacteria Hyaline Casts Urine Mucus 06/01/21 06/01/21 06/01/21 08:20 08:20 05:42 [place] # (Auto) ABG Methemoglobin 0.3 L 0.3 L VBG pH 7.26 L 7.30 L VBG pCO2 40.5 L 32.6 L VBG pO2 60.8 H VBG HCO3 17.6 L 15.5 L VBG Total CO2 18.8 L 16.5 L VBG O2 Saturation 84.3 H VBG Base Excess -9 L -10 L Carboxyhemoglobin 4.0 H 6.6 H Total Hemoglobin 12.6 L 12.2 L Sodium Potassium Carbon Dioxide 17 L Anion Gap BUN Creatinine 1.2 H Glucose 227 H Hemoglobin A1c Calcium 8.5 L Phosphorus 1.7 L GGT AST ALT Alkaline Phosphatase NT-Pro-B Natriuret Pep Total Protein Albumin Triglycerides Beta-Hydroxybutyrate Urine Appearance Urine Glucose (UA) Urine Ketones Ur Leukocyte Esterase Urine RBC Urine WBC Urine Bacteria Hyaline Casts Urine Mucus 06/01/21 05/31/21 05/31/21 05:42 23:19 22:47 [place] # (Auto) 1.04 H ABG Methemoglobin VBG pH VBG pCO2 VBG pO2 VBG HCO3 VBG Total CO2 VBG O2 Saturation VBG Base Excess Carboxyhemoglobin Total Hemoglobin Sodium Potassium Carbon Dioxide 13 L Anion Gap 19.0 H BUN Creatinine 1.3 H Glucose 165 H Hemoglobin A1c Calcium 8.2 L Phosphorus 2.0 L GGT 174 H AST 116 H ALT 262 H Alkaline Phosphatase 150 H NT-Pro-B Natriuret Pep 908.9 H Total Protein Albumin 2.9 L Triglycerides 466 H Beta-Hydroxybutyrate Urine Appearance Urine Glucose (UA) Urine Ketones Ur Leukocyte Esterase Urine RBC Urine WBC Urine Bacteria Hyaline Casts Urine Mucus 05/31/21 05/31/21 05/31/21 22:47 22:45 10:47 [place] # (Auto) ABG Methemoglobin 0 L VBG pH 7.28 L VBG pCO2 26.5 L VBG pO2 VBG HCO3 12.3 L VBG Total CO2 13.1 L VBG O2 Saturation VBG Base Excess -13 L Carboxyhemoglobin 3.2 H Total Hemoglobin 13.0 L Sodium 130 L Potassium Carbon Dioxide 10 L* Anion Gap 24.0 H BUN 25 H Creatinine 1.7 H Glucose 255 H Hemoglobin A1c 13.2 H Calcium Phosphorus GGT AST 151 H ALT 325 H Alkaline Phosphatase 174 H NT-Pro-B Natriuret Pep Total Protein Albumin Triglycerides Beta-Hydroxybutyrate 6.53 H Urine Appearance Urine Glucose (UA) Urine Ketones Ur Leukocyte Esterase Urine RBC Urine WBC Urine Bacteria Hyaline Casts Urine Mucus Meds: Medications Acetaminophen (Acetaminophen 325 Mg Tablet) 325 mg PO Q6HP PRN; Protocol PRN Reason: Per Pain Protocol Albuterol Sulfate (Albuterol Sulfate 200 Puff Inhaler) 1 puff IH Q4-6HP PRN PRN Reason: cough, wheezing Atorvastatin Calcium (Atorvastatin 40 Mg Tablet) 40 mg PO QHS PEG Dextrose (Dextrose 50% 50 Ml Vial) 0 ml IV UD PRN PRN Reason: Hypoglycemia Diagnostic Test (Pha) (Accu-Chek 1 Each Strip) 1 each FS ACHS [facility] Last Admin: 06/02/21 14:05 Dose: 1 each Documented by: Gabapentin (Gabapentin 400 Mg Capsule) 800 mg PO QIDP PEG Glucose (Dextrose 31 Gm Oral.Susp) 15 gm PO PRN PRN PRN Reason: Hypoglycemia Potassium Phosphate 40 meq/ (Dextrose) 509.0909 mls @ 127.273 mls/hr IV ONCE ONE Stop: 06/02/21 15:23 Last Admin: 06/02/21 11:57 Dose: 127.273 mls/hr Documented by: Insulin Glargine (Insulin Glargine, Human 1 Unit/0.01 Ml) 50 unit SQ DAILY PEG Insulin Human Lispro (Insulin Lispro 1 Unit/0.01 Ml Unit) 5 unit SQ AC PEG Insulin Human Lispro (Insulin Lispro 1 Unit/0.01 Ml Unit) 0 unit SQ ACHS [facility]; Protocol Last Admin: 06/02/21 14:23 Dose: 20 units Documented by: Ketorolac Tromethamine (Ketorolac 15 Mg/Ml Vial) 15 mg IV Q6HP PRN PRN Reason: Per Pain Protocol Lactulose (Lactulose 20 Gm/30 Ml Oral.Alley) 10 gm PO DAILYP PRN PRN Reason: Constipation Levothyroxine Sodium (Levothyroxine 100 Mcg Tablet) 100 mcg PO QAMAC PEG Mirtazapine (Mirtazapine 15 Mg Tablet) 7.5 mg PO HS [facility] Ondansetron HCl (Ondansetron 4 Mg/2 Ml Vial) 4 mg IV Q4HP PRN; Protocol PRN Reason: Nausea And Vomiting Lipase-Protease- Amylase [Zenpep] 40, 000-126,000-168,000 Unit Cap 1 dose PO TID [facility] Last Admin: 06/02/21 14:23 Dose: 1 dose Documented by: Senna (Sennosides 1 Tablet) 2 tab PO HS PEG Senna (Sennosides 1 Tablet) 2 tab PO HSP PRN PRN Reason: Constipation Sodium Chloride (0.9 % Sodium Chloride 10 Ml Syringe) 10 ml IV Q8 [facility] Last Admin: 06/02/21 12:57 Dose: Not Given Documented by: Tramadol HCl (Tramadol 50 Mg Tablet) 50 mg PO Q4HP PRN; Protocol PRN Reason: Pain ABG Interpretation ABG results: 05/31/21 06/01/21 06/01/21 22:45 05:42 08:20 ABG Methemoglobin 0 L 0.3 L 0.3 L VBG pH 7.28 L 7.30 L 7.26 L VBG pCO2 26.5 L 32.6 L 40.5 L VBG pO2 38.6 60.8 H 36.5 VBG HCO3 12.3 L 15.5 L 17.6 L VBG Total CO2 13.1 L 16.5 L 18.8 L VBG O2 Saturation 67.6 84.3 H 66.9 VBG Base Excess -13 L -10 L -9 L 06/01/21 06/01/21 06/01/21 11:55 15:15 19:40 ABG Methemoglobin 0.3 L 0.3 L 0.3 L VBG pH 7.27 L 7.32 7.36 VBG pCO2 42.4 38.0 L 35.0 L VBG pO2 46.9 H 62.0 H 77.6 H VBG HCO3 19.1 L 19.3 L 19.5 L VBG Total CO2 20.4 L 20.5 L 20.6 L VBG O2 Saturation 78.6 H 86.9 H 90.1 H VBG Base Excess -7 L -6 L -5 L A/P Narrative A/P Narrative: Assessment: 75 year old female with insulin dependent diabetes mellitus admitted for diabetic ketoacidosis likely secondary to noncompliance with insulin. #Resolved diabetic ketoacidosis #Resolved acute kidney injury #Hypophosphatemia #Elevated LFTs-improving #Urinary retention #Diabetes mellitus #Hypertension #Hypothyroidism #Chronic back pain with radiculopathy Plan -Lantus, Lispro AC and SSI-high. -Discontinue IV fluid. -Analgesics prn for back pain. -Bladder scan/straight cath prn -Essential meds. -DVT ppx: Lovenox SQ -Code status: DNR Time Spent With Patient Time: Total time spent is greater than 50% in coordination of care (as documented) at patient's floor/unit and/or counseling patient:
[2021-06-02] MEDS: traMADol 50 MG TABLET PO PRN (15:50)
[2021-06-02] MEDS ORDERED: INSULIN LISPRO 1 UNIT/0.01 ML UNIT SQ SCH ×2 (17:00)
[2021-06-02] MEDS: ATORVASTATIN 40 MG TABLET PO SCH (20:28)
[2021-06-02] MEDS: MELATONIN 3 MG TABLET PO PRN (20:28)
[2021-06-02] MEDS: MIRTAZAPINE 15 MG TABLET PO SCH (20:28)
[2021-06-02] MEDS: HYDROcodone/APAP 5/325MG TABLET PO PRN (20:28)
[2021-06-02] MEDS: SENNOSIDES 1 TABLET PO SCH (20:53)
[2021-06-02] MEDS ORDERED: MIRTAZAPINE 15 MG TABLET PO SCH (21:00)
[2021-06-02] MEDS ORDERED: HEPARIN 5,000 UNIT/ML VIAL SQ SCH (21:00)
[2021-06-03] MEDS: 0.9 % SODIUM CHLORIDE 10 ML SYRINGE IV SCH ×3 (06:27→20:43)
[2021-06-03] MEDS: LEVOTHYROXINE 100 MCG TABLET PO SCH (08:28)
[2021-06-03] MEDS: INSULIN LISPRO 1 UNIT/0.01 ML UNIT SQ SCH ×7 (08:29→20:40)
[2021-06-03 08:44] LABS: ALT/SGPT 134 U/L (<40); AST/SGOT 42 U/L (<32); Albumin/Globulin Ratio 1.2 (1.0-2.3); Alkaline Phosphatase 115 U/L (39-117); Bilirubin,Direct < 0.2 mg/dL (0-0.3); Bilirubin,Total 0.3 mg/dL (0.1-1.0); Blood Urea Nitrogen 6 mg/dL (8-23); Calcium 7.9 mg/dL (8.6-10.4); Carbon Dioxide 21 mmol/L (22-30); Chloride 108 mmol/L (96-108); Globulin 2.5 gm/dL (2.2-3.7); Glomerular Filtration Rate 94; Glucose 213 mg/dL (70-105); Lactate Dehydrogenase 162 U/L (135-225); Phosphorous 1.9 mg/dL (2.5-4.5); Triglycerides 318 mg/dL (<150); Uric Acid 4.8 mg/dL (2.5-8.0)
[2021-06-03] MEDS ORDERED: INSULIN GLARGINE, HUMAN 1 UNIT/0.01 ML SQ SCH ×2 (09:00)
[2021-06-03] MEDS: LIPASE PO SCH ×3 (09:25→20:43)
[2021-06-03] MEDS: AMYLASE PO SCH ×3 (09:25→20:43)
[2021-06-03] MEDS: PROTEASE PO SCH ×3 (09:25→20:43)
[2021-06-03] MEDS: GABAPENTIN 400 MG CAPSULE PO SCH ×2 (09:26→20:42)
--- NOTE | 2021-06-03 16:39 | Internal Med Progress Note ---
SUBJECTIVE Subjective Patient information: Note initiated : 06/03/21 at 4:36 pm Service Date, if different from initiated Date: [] Patient: Tennille Castillo 75 y/o F admitted on 06/01/21 for weakness. Chief Complaint: [] Interval history: Ms. Castillo is a 75 year old female with a history of insulin dependent diabetes mellitus preanted to the ED in diabetic ketoacidosis probably because she was not taking her insulin. The patient was started on an insulin drip, hospital medicine was consulted for hospital admission. The patient denies chest pain, no fevers or chills and clinically she does not appear to have an underlying infection. The patient said she was "in a fog" for several days and did not take her insulin during that time. She lives alone, suffers from chronic back pain, radiculopathy and rectal spasms. She also has hypertension and hypothyroidism. 06/02: transitioned to basal/bolus subcutaneous insulin, the patient feels better eating well,, back pain improved, replaced phosphorus, discontinued IV fluid, transfer to med/surg. 06/03: blood sugar improved, the patient feels much better, waiting PT recommendations however she says she would go home instead of SNF anyway, possible discharge to home tomorrow, discontinued IV dilaudid prn. Physical exam Head: Atraumatic, normal inspection. Eyes: normal appearance, no scleral icterus. Neck: full ROM Respiratory: no respiratory distress. Cardiovascular: normal rate and rhythm, S1, S2. GI/Abdominal: soft, nontender, no guarding. Extremities: full range of motion, nontender. Neurological: CN II-XII intact, intact motor, intact sensation. Psychiatric: depressed mood Skin: warm, normal color Constitutional Vitals: Vital Signs Temp Pulse Resp BP Pulse Ox 98.0 F 84 16 130/67 95 06/03/21 16:00 06/03/21 16:00 06/03/21 16:00 06/03/21 16:00 06/03/21 16:00 Period Temp Pulse Resp BP Sys/Rosario Pulse Ox Last 24 Hr 96.9 F-98.2 F 73-84 15-20 130-142/56-76 95-97 Intake and Output 06/03/21 06/03/21 06/03/21 05:59 13:59 21:59 Intake Total 0 240 Balance 0 240 Intake & Output: Intake & Output 06/03/21 06/03/21 06/03/21 05:59 13:59 21:59 Intake Total 0 240 Balance 0 240 Intake: Oral 0 240 Other: Meal Breakfast Percent of Meal Consumed 100% Feeding Ability Independent # Voids 1 OBJ DATA Labs CBC & Chem 7: 05/31/21 22:47 06/03/21 05:54 Labs: Abnormal Lab Results 06/03/21 06/02/21 06/01/21 05:54 08:02 23:18 [place] # (Auto) ABG Methemoglobin VBG pH VBG pCO2 VBG pO2 VBG HCO3 VBG Total CO2 VBG O2 Saturation VBG Base Excess Carboxyhemoglobin Total Hemoglobin Sodium Potassium Carbon Dioxide 21 L 18 L 17 L Anion Gap BUN 6 L Creatinine 0.5 L Glucose 213 H 403 H 404 H Hemoglobin A1c Calcium 7.9 L 7.9 L 7.9 L Phosphorus 1.9 L 1.0 L 1.9 L GGT 115 H 133 H AST 42 H 63 H ALT 134 H 184 H Alkaline Phosphatase 137 H NT-Pro-B Natriuret Pep Total Protein 5.5 L 5.8 L Albumin 3.0 L 3.0 L 2.9 L Triglycerides 318 H 479 H Beta-Hydroxybutyrate Urine Appearance Urine Glucose (UA) Urine Ketones Ur Leukocyte Esterase Urine RBC Urine WBC Urine Bacteria Hyaline Casts Urine Mucus 06/01/21 06/01/21 06/01/21 19:40 19:40 15:45 [place] # (Auto) ABG Methemoglobin 0.3 L VBG pH VBG pCO2 35.0 L VBG pO2 77.6 H VBG HCO3 19.5 L VBG Total CO2 20.6 L VBG O2 Saturation 90.1 H VBG Base Excess -5 L Carboxyhemoglobin 5.3 H Total Hemoglobin 10.9 L Sodium Potassium 3.2 L Carbon Dioxide 18 L Anion Gap BUN Creatinine Glucose 252 H Hemoglobin A1c Calcium 7.9 L Phosphorus 1.2 L GGT AST ALT Alkaline Phosphatase NT-Pro-B Natriuret Pep Total Protein Albumin 2.8 L Triglycerides Beta-Hydroxybutyrate Urine Appearance Hazy A Urine Glucose (UA) 50 A Urine Ketones 20 A Ur Leukocyte Esterase 500 A Urine RBC 4 H Urine WBC 63 H Urine Bacteria Few A Hyaline Casts 3 H Urine Mucus Few A 06/01/21 06/01/21 06/01/21 15:15 15:15 11:55 [place] # (Auto) ABG Methemoglobin 0.3 L 0.3 L VBG pH 7.27 L VBG pCO2 38.0 L VBG pO2 62.0 H 46.9 H VBG HCO3 19.3 L 19.1 L VBG Total CO2 20.5 L 20.4 L VBG O2 Saturation 86.9 H 78.6 H VBG Base Excess -6 L -7 L Carboxyhemoglobin 4.7 H 4.5 H Total Hemoglobin 11.0 L 11.4 L Sodium 130 L Potassium Carbon Dioxide 17 L Anion Gap BUN Creatinine 1.4 H Glucose 374 H Hemoglobin A1c Calcium 8.0 L Phosphorus 1.8 L GGT AST ALT Alkaline Phosphatase NT-Pro-B Natriuret Pep Total Protein Albumin 3.0 L Triglycerides Beta-Hydroxybutyrate Urine Appearance Urine Glucose (UA) Urine Ketones Ur Leukocyte Esterase Urine RBC Urine WBC Urine Bacteria Hyaline Casts Urine Mucus 06/01/21 06/01/21 06/01/21 11:55 08:20 08:20 [place] # (Auto) ABG Methemoglobin 0.3 L VBG pH 7.26 L VBG pCO2 40.5 L VBG pO2 VBG HCO3 17.6 L VBG Total CO2 18.8 L VBG O2 Saturation VBG Base Excess -9 L Carboxyhemoglobin 4.0 H Total Hemoglobin 12.6 L Sodium Potassium Carbon Dioxide 16 L 17 L Anion Gap BUN Creatinine 1.2 H Glucose 405 H 227 H Hemoglobin A1c Calcium 7.8 L 8.5 L Phosphorus 1.1 L 1.7 L GGT AST ALT Alkaline Phosphatase NT-Pro-B Natriuret Pep Total Protein Albumin 2.9 L Triglycerides Beta-Hydroxybutyrate Urine Appearance Urine Glucose (UA) Urine Ketones Ur Leukocyte Esterase Urine RBC Urine WBC Urine Bacteria Hyaline Casts Urine Mucus 06/01/21 06/01/21 05/31/21 05:42 05:42 23:19 [place] # (Auto) ABG Methemoglobin 0.3 L VBG pH 7.30 L VBG pCO2 32.6 L VBG pO2 60.8 H VBG HCO3 15.5 L VBG Total CO2 16.5 L VBG O2 Saturation 84.3 H VBG Base Excess -10 L Carboxyhemoglobin 6.6 H Total Hemoglobin 12.2 L Sodium Potassium Carbon Dioxide 13 L Anion Gap 19.0 H BUN Creatinine 1.3 H Glucose 165 H Hemoglobin A1c Calcium 8.2 L Phosphorus 2.0 L GGT 174 H AST 116 H ALT 262 H Alkaline Phosphatase 150 H NT-Pro-B Natriuret Pep 908.9 H Total Protein Albumin 2.9 L Triglycerides 466 H Beta-Hydroxybutyrate Urine Appearance Urine Glucose (UA) Urine Ketones Ur Leukocyte Esterase Urine RBC Urine WBC Urine Bacteria Hyaline Casts Urine Mucus 05/31/21 05/31/21 05/31/21 22:47 22:47 22:45 [place] # (Auto) 1.04 H ABG Methemoglobin 0 L VBG pH 7.28 L VBG pCO2 26.5 L VBG pO2 VBG HCO3 12.3 L VBG Total CO2 13.1 L VBG O2 Saturation VBG Base Excess -13 L Carboxyhemoglobin 3.2 H Total Hemoglobin 13.0 L Sodium 130 L Potassium Carbon Dioxide 10 L* Anion Gap 24.0 H BUN 25 H Creatinine 1.7 H Glucose 255 H Hemoglobin A1c Calcium Phosphorus GGT AST 151 H ALT 325 H Alkaline Phosphatase 174 H NT-Pro-B Natriuret Pep Total Protein Albumin Triglycerides Beta-Hydroxybutyrate 6.53 H Urine Appearance Urine Glucose (UA) Urine Ketones Ur Leukocyte Esterase Urine RBC Urine WBC Urine Bacteria Hyaline Casts Urine Mucus 05/31/21 10:47 [place] # (Auto) ABG Methemoglobin VBG pH VBG pCO2 VBG pO2 VBG HCO3 VBG Total CO2 VBG O2 Saturation VBG Base Excess Carboxyhemoglobin Total Hemoglobin Sodium Potassium Carbon Dioxide Anion Gap BUN Creatinine Glucose Hemoglobin A1c 13.2 H Calcium Phosphorus GGT AST ALT Alkaline Phosphatase NT-Pro-B Natriuret Pep Total Protein Albumin Triglycerides Beta-Hydroxybutyrate Urine Appearance Urine Glucose (UA) Urine Ketones Ur Leukocyte Esterase Urine RBC Urine WBC Urine Bacteria Hyaline Casts Urine Mucus Meds: Medications Acetaminophen (Acetaminophen 325 Mg Tablet) 325 mg PO Q6HP PRN; Protocol PRN Reason: Per Pain Protocol Hydrocodone Bitart/Acetaminophen (Hydrocodone/Apap 5/325mg Tablet) 1 tab PO Q6HP PRN; Protocol PRN Reason: Per Pain Protocol Last Admin: 06/02/21 20:28 Dose: 1 tab Documented by: Albuterol Sulfate (Albuterol Sulfate 200 Puff Inhaler) 1 puff IH Q4-6HP PRN PRN Reason: cough, wheezing Atorvastatin Calcium (Atorvastatin 40 Mg Tablet) 40 mg PO QHS [facility] Last Admin: 06/02/21 20:28 Dose: 40 mg Documented by: Dextrose (Dextrose 50% 50 Ml Vial) 0 ml IV UD PRN PRN Reason: Hypoglycemia Diagnostic Test (Pha) (Accu-Chek 1 Each Strip) 1 each FS [facility] Last Admin: 06/03/21 12:05 Dose: 1 each Documented by: Gabapentin (Gabapentin 400 Mg Capsule) 800 mg PO QIDP [facility] Last Admin: 06/03/21 09:26 Dose: 800 mg Documented by: Glucose (Dextrose 31 Gm Oral.Susp) 15 gm PO PRN PRN PRN Reason: Hypoglycemia Hydromorphone HCl (Hydromorphone 0.5 Mg/0.5 Ml Syringe) 0.5 mg IV Q4HP PRN; Protocol PRN Reason: Per Pain Protocol Insulin Glargine (Insulin Glargine, Human 1 Unit/0.01 Ml) 25 unit SQ BID [facility] Insulin Human Lispro (Insulin Lispro 1 Unit/0.01 Ml Unit) 0 unit SQ [facility]; Protocol Last Admin: 06/03/21 12:05 Dose: 6 units Documented by: Insulin Human Lispro (Insulin Lispro 1 Unit/0.01 Ml Unit) 7 unit SQ [facility] Last Admin: 06/03/21 12:05 Dose: 7 unit Documented by: Ketorolac Tromethamine (Ketorolac 15 Mg/Ml Vial) 15 mg IV Q6HP PRN PRN Reason: Per Pain Protocol Lactulose (Lactulose 20 Gm/30 Ml Oral.Alley) 10 gm PO DAILYP PRN PRN Reason: Constipation Levothyroxine Sodium ([facility]othy[facility]ine 100 Mcg Tablet) [facility] Last Admin: 06/03/21 08:28 Dose: 100 mcg Documented by: Melatonin (Melatonin 3 Mg Tablet) 3 mg PO HSP PRN PRN Reason: Insomnia Last Admin: 06/02/21 20:28 Dose: 3 mg Documented by: Mirtazapine (Mirtazapine 15 Mg Tablet) 7.5 mg PO [facility] Last Admin: 06/02/21 20:28 Dose: 7.5 mg Documented by: Ondansetron HCl (Ondansetron 4 Mg/2 Ml Vial) 4 mg IV Q4HP PRN; Protocol PRN Reason: Nausea And Vomiting Lipase-Protease- Amylase [Zenpep] 40, 000-126,000-168,000 Unit Cap 1 dose PO TID [facility] Last Admin: 06/03/21 15:00 Dose: 1 dose Documented by: Senna (Sennosides 1 Tablet) 2 tab PO HS [facility] Last Admin: 06/02/21 20:53 Dose: Not Given Documented by: Senna (Sennosides 1 Tablet) 2 tab PO HSP PRN PRN Reason: Constipation Sodium Chloride (0.9 % Sodium Chloride 10 Ml Syringe) 10 ml IV Q8 [facility] Last Admin: 06/03/21 12:06 Dose: 10 ml Documented by: Tramadol HCl (Tramadol 50 Mg Tablet) 50 mg PO Q4HP PRN; Protocol PRN Reason: Pain Last Admin: 06/02/21 15:50 Dose: 50 mg Documented by: ABG Interpretation ABG results: 05/31/21 06/01/21 06/01/21 22:45 05:42 08:20 ABG Methemoglobin 0 L 0.3 L 0.3 L VBG pH 7.28 L 7.30 L 7.26 L VBG pCO2 26.5 L 32.6 L 40.5 L VBG pO2 38.6 60.8 H 36.5 VBG HCO3 12.3 L 15.5 L 17.6 L VBG Total CO2 13.1 L 16.5 L 18.8 L VBG O2 Saturation 67.6 84.3 H 66.9 VBG Base Excess -13 L -10 L -9 L 06/01/21 06/01/21 06/01/21 11:55 15:15 19:40 ABG Methemoglobin 0.3 L 0.3 L 0.3 L VBG pH 7.27 L 7.32 7.36 VBG pCO2 42.4 38.0 L 35.0 L VBG pO2 46.9 H 62.0 H 77.6 H VBG HCO3 19.1 L 19.3 L 19.5 L VBG Total CO2 20.4 L 20.5 L 20.6 L VBG O2 Saturation 78.6 H 86.9 H 90.1 H VBG Base Excess -7 L -6 L -5 L A/P Narrative A/P Narrative: Assessment: 75 year old female with insulin dependent diabetes mellitus admitted for diabetic ketoacidosis likely secondary to noncompliance with insulin. #Resolved diabetic ketoacidosis #Resolved acute kidney injury #Hypophosphatemia #Elevated LFTs-improving #Urinary retention #Diabetes mellitus #Hypertension #Hypothyroidism #Chronic back pain with radiculopathy Plan -Lantus, Lispro AC and SSI-high. -Analgesics prn for back pain. -Bladder scan/straight cath prn -Essential meds. -DVT ppx: Lovenox SQ -Code status: DNR -Disposition: probably home tomorrow with home health Time Spent With Patient Time: Total time spent is greater than 50% in coordination of care (as documented) at patient's floor/unit and/or counseling patient:
[2021-06-03] MEDS: INSULIN GLARGINE, HUMAN 1 UNIT/0.01 ML SQ SCH (20:41)
[2021-06-03] MEDS: MIRTAZAPINE 15 MG TABLET PO SCH (20:42)
[2021-06-03] MEDS: traMADol 50 MG TABLET PO PRN (20:42)
[2021-06-03] MEDS: ATORVASTATIN 40 MG TABLET PO SCH (20:43)
[2021-06-03] MEDS: MELATONIN 3 MG TABLET PO PRN (20:43)
[2021-06-03] MEDS: SENNOSIDES 1 TABLET PO SCH (20:43)
[2021-06-04] MEDS: HYDROcodone/APAP 5/325MG TABLET PO PRN ×2 (00:11→05:15)
[2021-06-04] MEDS: traMADol 50 MG TABLET PO PRN (03:34)
[2021-06-04] MEDS: 0.9 % SODIUM CHLORIDE 10 ML SYRINGE IV SCH (04:42)
[2021-06-04] MEDS: LEVOTHYROXINE 100 MCG TABLET PO SCH (07:01)
[2021-06-04] MEDS: INSULIN LISPRO 1 UNIT/0.01 ML UNIT SQ SCH ×4 (07:09→11:22)
[2021-06-04] MEDS ORDERED: POTASSIUM PHOSPHATE 20 MEQ in DEXTROSE 5% IN WATER 250 ML IV ONE ×2 (08:00→09:00)
[2021-06-04] MEDS: INSULIN GLARGINE, HUMAN 1 UNIT/0.01 ML SQ SCH (08:24)
[2021-06-04] MEDS: LIPASE PO SCH (09:10)
[2021-06-04] MEDS: AMYLASE PO SCH (09:10)
[2021-06-04] MEDS: PROTEASE PO SCH (09:10)
--- NOTE | 2021-06-04 09:16 | Discharge Summary ---
Discharge Provider Provider Patient information: Note initiated : 06/04/21 at 9:14 am Service Date, if different from initiated Date: [] Patient: Tennille Castillo 75 y/o F admitted on 06/01/21 for weakness. Chief Complaint: [] Date of admission: 06/01/21 03:00 Discharge date: 06/04/21 Primary care physician: Alan Davis MD Consults: 06/01/21 Consult to Physician [CONS] Stat Comment: Consulting Provider: Tom Montenegro Reason For Exam: Physician to Consult Discharge Meds Discharge Medications Home Medications Novolin R Regular U-100 Insuln See Rx Instructions .ROUTE .COMPLEX 09/18/17 [History Confirmed 06/01/21 Last Taken 07/15/18] calcium polycarbophil 1,250 mg PO DAILY 09/18/17 [History Confirmed 06/01/21 Last Taken 07/15/18] gabapentin 800 mg PO QIDP 09/18/17 [History Confirmed 06/01/21 Last Taken 07/15/18] shcqdkpf-tvi-ldqu fum-folic ac 1 ea PO DAILY 09/18/17 [History Confirmed 06/01/21 Last Taken 07/15/18] albuterol sulfate 1 puff IH Q4-6HP PRN #1 inhaler 09/25/17 [Rx Confirmed 06/01/21 Last Taken 07/15/18] propranolol 10 mg PO BID 09/25/17 [History Confirmed 06/01/21 Last Taken 07/15/18] Healthy Eyes Lutein-Zeaxanthin 1 tab PO DAILY 02/25/18 [History Confirmed 06/01/21 Last Taken 07/15/18] acyclovir 400 mg tablet 400 mg PO QDAY 03/09/20 [History Confirmed 06/01/21 Last Taken Unknown] betamethasone dipropionate 0.05 % topical ointment See Rx Instructions TOPICAL .COMPLEX 03/09/20 [History Confirmed 06/01/21 Last Taken Unknown] losartan 50 mg tablet 50 mg PO QDAY 03/09/20 [History Confirmed 06/01/21 Last Taken Unknown] Tresiba U-100 Insulin 25 unit SUBCUT BID 06/01/21 [History Confirmed 06/01/21 Last Taken Unknown] Zenpep 40,000 cap PO TID 06/01/21 [History Confirmed 06/01/21 Last Taken Unknown] atorvastatin 40 mg PO QHS 06/01/21 [History Confirmed 06/01/21 Last Taken Unknown] levothyroxine 100 mcg PO DAILY 06/01/21 [History Confirmed 06/01/21 Last Taken Unknown] mirtazapine 7.5 mg PO DAILY 06/01/21 [History Confirmed 06/01/21 Last Taken Unknown] COURSE Hospital Course Hospital course: Ms. Castillo is a 75 year old female with a history of insulin dependent diabetes mellitus preanted to the ED in diabetic ketoacidosis probably because she was not taking her insulin. The patient was started on an insulin drip, hospital medicine was consulted for hospital admission. The patient denies chest pain, no fevers or chills and clinically she does not appear to have an underlying infection. The patient said she was "in a fog" for several days and did not take her insulin during that time. She lives alone, suffers from chronic back pain, radiculopathy and rectal spasms. She also has hypertension and hypothyroidism. 06/02: transitioned to basal/bolus subcutaneous insulin, the patient feels better eating well,, back pain improved, replaced phosphorus, discontinued IV fluid, transfer to med/surg. 06/03: blood sugar improved, the patient feels much better, waiting PT recommendations however she says she would go home instead of SNF anyway, possible discharge to home tomorrow, discontinued IV dilaudid prn. 06/04: discharged to home with home health on the same basal/bolus insulin regimen as before. Physical exam Head: Atraumatic, normal inspection. Eyes: normal appearance, no scleral icterus. Neck: full ROM Respiratory: no respiratory distress. Cardiovascular: normal rate and rhythm, S1, S2. GI/Abdominal: soft, nontender, no guarding. Extremities: full range of motion, nontender. Neurological: CN II-XII intact, intact motor, intact sensation. Psychiatric: depressed mood Skin: warm, normal color Discharge diagnosis: Diabetic ketoacidosis Time Spent with Patient Time attestation: Total time spent providing and/or coordinating discharge services: EXAM Constitutional Vitals: Temp Pulse Resp BP Pulse Ox 97 F 67 20 158/77 96 06/04/21 07:26 06/04/21 04:00 06/04/21 07:26 06/04/21 07:26 06/04/21 07:26 Discharge Data Data Completed and Pending Labs on day of discharge: Preliminary micro results at discharge 06/01/21 01:13 Blood Culture - Preliminary Blood 06/01/21 00:57 Blood Culture - Preliminary Blood Discharge Plan Patient/Caregiver Discharge Instructions Activity: increase activity as tolerated Diet: Consistent Carbohydrate Prescriptions: Continued acyclovir 400 mg tablet 400 mg PO QDAY RF: 0 betamethasone dipropionate 0.05 % ointment See Rx Instructions TOPICAL .COMPLEX RF: 0 losartan 50 mg tablet 50 mg PO QDAY RF: 0 gabapentin 400 MG capsule 800 mg PO QIDP RF: 0 Novolin R Regular U-100 Insuln 100 UNIT/ML solution See Rx Instructions unit .ROUTE .COMPLEX RF: 0 calcium polycarbophil 625 MG tablet 1,250 mg PO DAILY RF: 0 owyusctd-zlx-mtre fum-folic ac 1 EACH tablet 1 ea PO DAILY RF: 0 propranolol 10 MG tablet 10 mg PO BID RF: 0 albuterol sulfate 1 PUFF inhaler 1 puff IH Q4-6HP PRN (Reason: cough, wheezing) Qty: 1 RF: 0 Healthy Eyes Lutein-Zeaxanthin 1 TAB tablet 1 tab PO DAILY RF: 0 atorvastatin 40 mg tablet 40 mg PO QHS RF: 0 levothyroxine 100 mcg tablet 100 mcg PO DAILY RF: 0 mirtazapine 7.5 mg tablet 7.5 mg PO DAILY RF: 0 Zenpep 40,000-126,000- 168,000 unit capsule,delayed release(DR/EC) 40,000 cap PO TID RF: 0 Tresiba U-100 Insulin 100 unit/mL solution 25 unit SUBCUT BID RF: 0 Other Ambulatory Orders: OT Discharge Order (Routine) Location: None Selected Ordered By: Tom Montenegro Physical Therapy at Discharge - General (Routine) Location: None Selected Ordered By: Tom Montenegro Follow Up Plan Follow up with: Alan Davis MD [Primary Care Provider] - Patient Disposition: Home Health Service Prognosis: Serious Overall status at discharge: patient is progressing back to baseline Discharge Orders: Discharge Order (Routine); Ordered 06/04/21 Ordered By: Tom Montenegro
== END 2021-06-04 13:30 | disposition home health service (06) | DRG 638 ==
LOC: ED 20:54 → ICU 06-01 03:00 → ED 06-01 03:02 → MEDSUR 06-02 14:33
PROVIDERS: ADMIT Internal Medicine; ATTEND Internal Medicine

== ENCOUNTER 2021-09-20 14:21 | Inpatient (IN) ==
[2021-09-20] MEDS ORDERED: 0.9 % SODIUM CHLORIDE 500 ML IV ONE (14:33)
--- NOTE | 2021-09-20 14:37 | Emergency Department Note ---
HPI General Chief complaint: Weakness Stated complaint: weakness x 1 week Time Seen by Provider: 09/20/21 14:25 Source: patient and EMS Mode of arrival: EMS Limitations: no limitations History of Present Illness HPI Narrative: Narrative: 65-year-old female with a he is, cirrhosis of liver, degenerative disc disease, fibromyalgia, hepatitis A, pancreatitis, neurofibromatosis and a spastic colon presents the ER to be evaluated for weakness for the last week and a half. She normally has caregivers come by her house but they have not been able to come to her house for the last week and a half. She says she is been having trouble fixing her self meals and feels generally weak. She has had several falls but reports no extremity pain or injuries. She has not impacted her chest wall and she is unsure whether she has hit her head or not. She says she is been afebrile and has had no nausea or vomiting. She says she has had diarrhea for the last 2 days there has been no blood in her stools. She denies dysuria, urgency or frequency, chest pain or chest pressure. She does have some chest wall pain in her left lower chest. Related Data Home Medications Medication Instructions Recorded Confirmed calcium polycarbophil 625 mg tablet 1,250 mg PO DAILY 09/18/17 08/22/21 gabapentin 400 mg capsule 800 mg PO QIDP 09/18/17 08/22/21 insulin regular human 100 unit/mL See Rx Instructions .ROUTE .COMPLEX 09/18/17 08/22/21 injection solution (Novolin R Regular U-100 Insulin) rhdlntpximng-njubofdg-sewx 1 ea PO DAILY 09/18/17 08/22/21 fumarate 7.5 mg-folic acid 400 mcg tablet vit C,D-Xu-mehzez-lutein-zeaxan 60 1 tab PO DAILY 02/25/18 08/22/21 mg-13.5 mg-15 mg-2 mg-6 mg capsule (Healthy Eyes Lutein-Zeaxanthin) acyclovir 400 mg tablet 400 mg PO QDAY 03/09/20 08/22/21 betamethasone dipropionate 0.05 % See Rx Instructions TOPICAL 03/09/20 08/22/21 topical ointment .COMPLEX losartan 50 mg tablet 50 mg PO QDAY 03/09/20 08/22/21 atorvastatin 40 mg tablet 40 mg PO QHS 06/01/21 08/22/21 insulin degludec 100 unit/mL 25 unit SUBCUT BID 06/01/21 08/22/21 subcutaneous solution (Tresiba U-100 Insulin) levothyroxine 100 mcg tablet 100 mcg PO DAILY 06/01/21 08/22/21 fxcttk-fwqlzzfo-vlhzumw 40,000 cap PO TID 06/01/21 08/22/21 40,000-126,000-168,000 unit capsule, delay rel (Zenpep) mirtazapine 7.5 mg tablet 7.5 mg PO DAILY 06/01/21 08/22/21 Lactobacillus acidophilus 2 tab PO QDAY tab 07/15/21 08/22/21 (Acidophilus) Saccharomyces boulardii [Daily 1 tab PO QAM 07/15/21 08/22/21 Probiotic (S. boulardii)] bismuth subsalicylate 262 mg See Rx Instructions PO .COMPLEX PRN 07/15/21 08/22/21 chewable tablet (Pepto-Bismol To-Go) cholecalciferol (vitamin D3) PO QDAY 07/15/21 08/22/21 diclofenac sodium 1 % topical gel 2 g TOPICAL QID 07/15/21 08/22/21 diphenhydramine HCl 25 mg tablet 25 mg PO Q4H tab 07/15/21 08/22/21 (Sleep-Tabs) docusate sodium [Stool Softener] PO 07/15/21 08/22/21 fluticasone propionate 50 1 spray INTRANASAL QDAY 07/15/21 08/22/21 mcg/actuation nasal spray,suspension (Allergy Relief (fluticasone)) hyoscyamine sulfate 0.125 mg 0.125 mg PO Q6H PRN tab 07/15/21 08/22/21 sublingual tablet miconazole nitrate [Monistat 3] VAGINAL 07/15/21 08/22/21 multivit yur-dkbg-PH-herb 186 PO 07/15/21 08/22/21 [Hair, Skin and Nails Advanced] zinc 50 mg tablet 50 mg PO QDAY 07/15/21 08/22/21 trazodone 100 mg tablet 100 mg PO QDAY PRN 08/22/21 08/22/21 Previous Rx's Medication Instructions Recorded albuterol sulfate 90 mcg/actuation 1 puff IH Q4-6HP PRN #1 inhaler 09/25/17 aerosol inhaler ciprofloxacin HCl 0.3 % eye See Rx Instructions .ROUTE 06/14/21 ointment (Ciloxan) .COMPLEX #3.5 g Allergies Allergy/AdvReac Type Severity Reaction Status Date / Time cephalexin [From Keflex] Allergy Intermediate Swelling Verified 05/31/21 20:56 Anistreplase [From Eminase] Allergy Unknown UNKNOWN Verified 05/31/21 20:56 codeine Allergy Unknown UNKNOWN Verified 05/31/21 20:56 fenugreek Allergy Unknown UNKNOWN Verified 05/31/21 20:56 Penicillins Allergy Unknown UNKNOWN Verified 05/31/21 20:56 Sulfa (Sulfonamide Allergy Unknown UNKNOWN Verified 05/31/21 20:56 Antibiotics) promethazine AdvReac Intermediate Fainting Verified 06/01/21 21:16 Erythromycin Base AdvReac Mild Itching Verified 06/01/21 21:16 Nortriptyline AdvReac Mild Nausea Verified 06/01/21 21:16 trulicity Allergy Unknown Unknown Uncoded 07/15/21 09:11 Review of Systems ROS ROS Narrative: Narrative: All systems ED: reviewed and negative except as stated. [facility] Narrative Patient History Narrative: Narrative: Medical/Surgical/Family History All Active Problems (Updated 09/20/21 @ 16:55 by Rios Burton PA-C) DKA (diabetic ketoacidosis) (Acute) Vulvovaginitis due to yeast (Acute) Sleepwalking (Chronic) REM sleep behavior disorder (Chronic) Hypersomnia (Chronic) Snoring (Chronic) Tremor (Chronic) Neurofibromatosis 2 (Chronic) Trigger finger (Chronic) Sleep disturbance (Chronic) Arthralgia (Chronic) Pancreatitis (Chronic) Macular degeneration (Chronic) Hepatitis A (Chronic) Glaucoma (Chronic) Fibromyalgia (Chronic) DDD (degenerative disc disease), cervical (Chronic) Diabetic retinopathy (Chronic) Opioid dependence (Chronic) Stress (Chronic) Hard of hearing (Chronic) Multiple environmental allergies (Chronic) Fracture of lumbar spine (Chronic) Compression fracture of lumbosacral spine (Chronic) Abdominal pain (Chronic) Chronic pancreatitis (Chronic) Liver mass (Chronic) Cirrhosis of liver (Chronic) Constipation (Chronic) Neuropathy (Chronic) Chronic pain (Chronic) Essential tremor (Chronic) Bimalleolar ankle fracture (Chronic) Chronic bronchitis with acute exacerbation (Chronic) Dehydration (Chronic) Epistaxis (Chronic) Hypoxia (Chronic) Anterior epistaxis (Chronic) Candidiasis of mouth (Chronic) DKA (diabetic ketoacidosis) (Chronic) Conjunctivitis (Chronic) Bronchitis (Chronic) Dehiscence of closure of skin (Chronic) Anemia (Chronic) Elevated liver enzymes (Chronic) 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) Radiculopathy, sacral and sacrococcygeal region (Chronic) Radiculopathy, lumbosacral region (Chronic) Insomnia (Chronic) Levator syndrome (Chronic) Sacrococcygeal pain (Chronic) History of surgery (Chronic) Hypothyroidism (Chronic) Chronic bronchitis (Chronic) 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) Depression (Chronic) Anxiety (Chronic) Hypertension (Chronic) Osteoporosis (Chronic) Rectal pain (Chronic) Low back pain (Chronic) Pain in thoracic spine (Chronic) Age-related osteoporosis with current pathological fracture, vertebra(e), initial encounter for fracture (Chronic) Medical History Abdominal pain Acute exacerbation of chronic obstructive airways disease Age-related osteoporosis with current pathological fracture, vertebra(e), initial encounter for fracture Anemia Anterior epistaxis Anxiety Arthralgia Bilateral primary osteoarthritis of hip Bimalleolar ankle fracture Bronchitis Candidiasis of mouth Chronic bronchitis with acute exacerbation Chronic pain Chronic pancreatitis Cirrhosis of liver Compression fracture of lumbosacral spine Conjunctivitis Constipation DDD (degenerative disc disease), cervical Dehiscence of closure of skin Dehydration Depression Diabetic retinopathy DKA (diabetic ketoacidosis) Elevated liver enzymes Epistaxis Essential tremor Fibromyalgia Fracture of lumbar spine Glaucoma Hard of hearing Hepatitis A Hyperglycemia due to type 2 diabetes mellitus Hypersomnia Hypertension Hypothyroidism Hypoxia Insomnia Levator syndrome Lipomatosis Liver mass Low back pain Macular degeneration Multiple environmental allergies Neurofibromatosis 2 Neuropathy Opioid dependence Osteoporosis Pain in thoracic spine Pancreatitis Radiculopathy, lumbosacral region Radiculopathy, sacral and sacrococcygeal region Rectal pain REM sleep behavior disorder Sacrococcygeal pain Sleep disturbance Sleepwalking Snoring Stress Tremor Trigger finger Surgical History History of appendectomy (~1970) History of arthroplasty of right ankle (~2017) History of cataract surgery (~2003) History of cholecystectomy History of colonoscopy (~10/11/18) History of decompression of median nerve (~2003) History of dilation and curettage History of eye surgery (~2005) Glaucoma History of hand surgery (~2003) Release of trigger finger, right History of left breast biopsy (~2005) History of oophorectomy History of surgery Vertebroplasty T12 w/sed 09/28/19 History of surgery retinopathy laser Stereotactic destruction of lesion using gamma radiation-2004 History of surgery on wrist History of tonsillectomy and adenoidectomy (~1969) Family History Mother Heart disease Fibromyalgia Father Malignant melanoma Malignant tumor of prostate Leukemia Social History Smoking Status: Never smoker Alcohol Intake Frequency: does not drink Exam Narrative Narrative: Narrative: Gen: Patient sitting upright in bed and appears to be weak but in no acute distress Eyes: PERRL, no conjunctival injection , and symmetrical lids. Sclerae non icteric HENMT: Normocephalic Atraumatic head, external nose and ears. Moist MM. No evidence of external trauma CVS: +S1/S2, No murmurs or gallops. Radial pulses 2+ and equal bilat. No swelling RESP: Unlabored respiratory effort . Clear to auscultation bilaterally (CTAB). No noted wheezes rales or ronchi. GI: Nontender/Nondistended (NTND), No focal tenderness Chest wall: Left anterior chest wall tenderness especially with inspiration no crepitus or subcutaneous emphysema or bruising MSK: Extremities w/o deformity or ttp. No cyanosis or clubbing. Skin: Warm, Dry . No rashes or lesions . Cap refill less than 2. Psych: Awake, Alert, & Oriented (AAO) x3. Appropriate mood and affect . General Limitations: no limitations Course Vital Signs Vital signs: Vital Signs Temperature 98.9 F 09/20/21 14:27 Pulse Rate 80 09/20/21 14:27 Respiratory Rate 20 09/20/21 14:27 Blood Pressure 98/63 09/20/21 14:27 Pulse Oximetry (%) 96 09/20/21 14:27 Temperature 98.9 F 09/20/21 14:27 Pulse Rate 80 09/20/21 14:27 Respiratory Rate 20 09/20/21 14:27 Blood Pressure 98/63 09/20/21 14:27 Pulse Oximetry (%) 96 09/20/21 14:27 MDM MDM Narrative Medical decision making narrative: Narrative: Patient has had weakness for approximately a week and a half her caregivers have not been able to get into her due to snow. She has many chronic medical issues to include uncontrolled diabetes, chronic pancreatitis, hypertension, degenerative disc disease, fibromyalgia etc. She was evaluated with head CT, CBC, CMP, troponin, EKG, chest x-ray, UA and magnesium CBC: Slightly elevated white count otherwise unremarkable CMP: Decrease CO2 and anion gap of 22 blood sugar 268 suggest possible ketoacidosis. Venous blood gas and BHB ordered at this time. Patient has normal potassium. Troponin: Undetectable EKG: Normal sinus rhythm at a rate of 70 bpm no evidence of acute ischemia, EKG reviewed with attending physician Magnesium: Normal Chest x-ray: Normal chest x-ray Head Ct: No acute intracranial hemorrhage or process During from cath it was reported that patient has beefy red and irritated vagina with curd-like discharge consistent with yeast infection and candidal vulvovaginitis she reports some irritation and will be given 150 mg of Diflucan and will be sent home with a prescription for another pill and will follow up with her primary care provider for pelvic exam. Venous blood gas: Consistent with DKA BHB: Elevated 4.47 Patient is in DKA, she also has vulvovaginitis, head CT and chest x-ray were normal. Dr. Borges was contacted regarding her DKA for admission and he agreed to admit the patient she wanted her started on a 7 unit bolus followed by an insulin drip. This was ordered for the patient he will be down to see her and admit the patient. Discharge Plan Patient/Caregiver Discharge Instructions Pt seen by ATHLETIC SHOE DESIGNER/PA only: Yes Clinical Impression: DKA (diabetic ketoacidosis), Vulvovaginitis due to yeast Patient Disposition: Xfer As Inpt ([facility]) Condition: Fair Follow up with: Alan Davis MD [Physician] - Prescriptions: No Action acyclovir 400 mg tablet 400 mg PO QDAY 0RF betamethasone dipropionate 0.05 % ointment See Rx Instructions TOPICAL .COMPLEX 0RF Rx Instructions: UNKNOWN topical UNKNOWN; losartan 50 mg tablet 50 mg PO QDAY 0RF Acidophilus Tablet,Chewable 2 tab PO QDAY 0RF fluticasone propionate [Allergy Relief (fluticasone)] 50 mcg/actuation spray,suspension 1 spray intranasal QDAY 0RF Rx Instructions: administer into each nostril diclofenac sodium 1 % gel 2 g topical QID 0RF Rx Instructions: apply to single elbow, wrist or hand; for hand includes palm/fingers/back of hand hyoscyamine sulfate 0.125 mg tablet, sublingual 0.125 mg PO Q6H PRN0RF multivit aqy-yokr-II-herb 186 [Hair, Skin and Nails Advanced] PO 0RF miconazole nitrate [Monistat 3] vaginal 0RF bismuth subsalicylate [Pepto-Bismol To-Go] 262 mg tablet,chewable See Rx Instructions PO .COMPLEX PRN0RF Rx Instructions: PO PRN; do not exceed 16 tabs per 24 hrs Saccharomyces boulardii [Daily Probiotic (S. boulardii)] 1 tab PO QAM 0RF diphenhydramine HCl [Sleep-Tabs] 25 mg tablet 25 mg PO Q4H 0RF docusate sodium [Stool Softener] PO 0RF zinc 50 mg tablet 50 mg PO QDAY 0RF cholecalciferol (vitamin D3) PO QDAY 0RF Rx Instructions: 2000IU trazodone 100 mg tablet 100 mg PO QDAY PRN (Reason: insomnia) 0RF gabapentin 400 MG capsule 800 mg PO QIDP 0RF Novolin R Regular U-100 Insuln 100 UNIT/ML solution See Rx Instructions unit .ROUTE .COMPLEX 0RF Protocol: Insulin Sliding Scale, High Condition: HUMALOG/NOVALOG SC SLIDING Dose/Route: SCALE Condition: FSBS < 70 Dose/Route: Give 4 Oz juice, or 15gm oral Instruction: Glucose, or 25ml D50W IV if Dose/Route: unable to take PO. Recheck in Instruction: 15 min and repeat if FSBS < 70 Condition: FSBS 71-140 Dose/Route: NO COVERAGE Condition: FSBS 141-170 Dose/Route: 3 UNITS Condition: FSBS 171-200 Dose/Route: 6 UNITS Condition: FSBS 201-250 Dose/Route: 9 UNITS Condition: FSBS 251-300 Dose/Route: 12 UNITS Condition: FSBS 301-350 Dose/Route: 15 UNITS Condition: FSBS 351-400 Dose/Route: 18 UNITS Condition: FSBS > 400 Dose/Route: 20 UNITS; REPEAT Q2H X2 Instruction: CONTINUE FOLLOWING SLIDING Condition: SCALE; IF STILL > 400; CALL Dose/Route: PHYSICIAN Rx Instructions: 70-139 none 140-180 4 units 181-240 6 Units 241-300 8 Units >300 Can't read instructions calcium polycarbophil 625 MG tablet 1,250 mg PO DAILY 0RF nsxaimcf-yws-rhat fum-folic ac 1 EACH tablet 1 ea PO DAILY 0RF albuterol sulfate 1 PUFF inhaler 1 puff IH Q4-6HP PRN (Reason: cough, wheezing) Qty: 1 0RF Healthy Eyes Lutein-Zeaxanthin 1 TAB tablet 1 tab PO DAILY 0RF atorvastatin 40 mg tablet 40 mg PO QHS 0RF Label Comments: take 1 tablet by mouth at bedtime levothyroxine 100 mcg tablet 100 mcg PO DAILY 0RF Label Comments: take 1 tablet by mouth once daily mirtazapine 7.5 mg tablet 7.5 mg PO DAILY 0RF Label Comments: take 1 tablet by mouth every evening Zenpep 40,000-126,000- 168,000 unit capsule,delayed release(DR/EC) 40,000 cap PO TID 0RF Label Comments: take 1 capsule by mouth three times a day Tresiba U-100 Insulin 100 unit/mL solution 25 unit SUBCUT BID 0RF Label Comments: inject 25 units subcutaneously twice a day Ciloxan 0.3 % ointment See Rx Instructions .ROUTE .COMPLEX Qty: 3.5 0RF Rx Instructions: apply 1/2 inch ribbon into affected eye(s) 3 times daily for 2 days; then twice daily for 5 days
--- NOTE | 2021-09-20 15:04 | XRay Report ---
HISTORY: Increased weakness FINDINGS: The lungs are clear and well expanded. The heart size, mediastinum, leroy and pleura are normal. There has been no change since the prior exam done on 06/14/21. IMPRESSION: Normal exam Interpreted and Authenticated by: Allan Lawler 09/20/21
[2021-09-20 15:15] LABS: Basophils # (Auto) 0.06 K/mcL (0.00-0.30); Basophils % (Auto) 0.5 % (0.0-2.0); Eosinophils # (Auto) 0.04 K/mcL (0.00-0.70); Eosinophils % (Auto) 0.3 % (0.0-7.0); Hematocrit 40.1 % (34.1-44.9); Hemoglobin 14.2 g/dL (11.2-15.7); Lymphocytes # (Auto) 2.92 K/mcL (1.50-4.80); Lymphocytes % (Auto) 24.4 % (15.5-49.0); Mean Cell Volume 85.7 fL (80.0-100.0); Mean Corpuscular HGB Conc 35.4 g/dL (31.0-36.0); Monocytes # (Auto) 0.58 K/mcL (0.10-0.90); Monocytes % (Auto) 4.8 % (1.0-12.0); Platelet Count 268 K/mcL (140-440); RBC 4.68 M/mcL (3.59-5.38); Red Cell Distribution Width 13.2 % (11.5-14.5)
[2021-09-20] MEDS ORDERED: ACETAMINOPHEN 325 MG TABLET PO ONE (15:16)
[2021-09-20] MEDS ORDERED: FLUCONAZOLE 150 MG TABLET PO ONE (15:17)
--- NOTE | 2021-09-20 15:23 | Cat Scan Report ---
History: Fell, increased weakness TECHNIQUE: The brain was imaged without contrast in axial plane at 2.5 mm intervals. The radiation exposure was limited using dose reduction technology. FINDINGS: The bone windows show no skull fracture. There is no intracranial hemorrhage, cerebral edema, infarct or mass effect. There is mild generalized atrophy, most apparent in the frontal lobes. No abnormal extra-axial fluid collection is present. The ventricles are prominent but proportionate to the atrophy. There is mucosal thickening, with a small amount of fluid in the inferior recess of the left frontal sinus. There is opacification of a couple anterior ethmoid air cells on the left side and there is mucosal thickening along the mccullough of the sphenoid sinus. Mucosal thickening is also present inferiorly in the left maxillary sinus. Comparison with the prior head CT done on 01/18/17 shows there has been progression of the atrophy. The sinusitis is a new finding. IMPRESSION: Normal age-related degenerative changes and no evidence of acute head injury Sinusitis Rios Burton was called with report Interpreted and Authenticated by: Allan Lawler 09/20/21
[2021-09-20 15:33] LABS: ALT/SGPT 58 U/L (<40); AST/SGOT 80 U/L (<32); Albumin 4.5 gm/dL (3.2-5.2); Albumin/Globulin Ratio 1.4 (1.0-2.3); Alkaline Phosphatase 160 U/L (39-117); Bilirubin,Total 0.4 mg/dL (0.1-1.0); Blood Urea Nitrogen 19 mg/dL (8-23); Calcium 9.6 mg/dL (8.6-10.4); Carbon Dioxide 13 mmol/L (22-30); Chloride 95 mmol/L (96-108); Globulin 3.2 gm/dL (2.2-3.7); Glomerular Filtration Rate 44; Glucose 280 mg/dL (70-105)
[2021-09-20] MEDS ORDERED: INSULIN REGULAR, HUMAN 1 UNIT/0.01 ML UNIT IV ONE (16:48)
[2021-09-20] MEDS ORDERED: LACTATED RINGERS 1,000 ML IV ONE (16:48)
[2021-09-20] MEDS ORDERED: INSULIN REGULAR, HUMAN 50 UNIT in 0.9 % SODIUM CHLORIDE 99.5 ML IV SCH ×2 (17:00→19:30)
--- NOTE | 2021-09-20 17:06 | Internal Med History&Physical ---
HPI History of Present Illness Patient information: Note initiated : 09/20/21 at 5:00 pm Service Date, if different from initiated Date: [] Patient: Tennille Castillo a 76 y/o F admitted on for weakness x 1 week. Chief Complaint: [] History of present illness: Ms. Castillo is a 76 year old F Presents to the ED with generalized weakness lightheadedness. Patient states she has caregivers that help her take care of her but they have not been the recent because of the snow. Her daughter helps her out quite a bit about of the daughter is out of town. She complained of dysuria and in the ED was evaluated found to have candidal vulvovaginitis. Laboratory was also consistent with DKA. She was given oral fluconazole in the ED. Also given IV fluids and started on insulin drip. Review of Systems: Pertinent positive as above plus occasional diarrhea. Denies headache/fever/chills/nausea/vomiting/chest or abdominal pain/cough/dyspnea. Otherwise see above. PFSH PFSH All Active Problems (Updated 09/20/21 @ 16:55 by Rios Burton PA-C) DKA (diabetic ketoacidosis) (Acute) Vulvovaginitis due to yeast (Acute) Sleepwalking (Chronic) REM sleep behavior disorder (Chronic) Hypersomnia (Chronic) Snoring (Chronic) Tremor (Chronic) Neurofibromatosis 2 (Chronic) Trigger finger (Chronic) Sleep disturbance (Chronic) Arthralgia (Chronic) Pancreatitis (Chronic) Macular degeneration (Chronic) Hepatitis A (Chronic) Glaucoma (Chronic) Fibromyalgia (Chronic) DDD (degenerative disc disease), cervical (Chronic) Diabetic retinopathy (Chronic) Opioid dependence (Chronic) Stress (Chronic) Hard of hearing (Chronic) Multiple environmental allergies (Chronic) Fracture of lumbar spine (Chronic) Compression fracture of lumbosacral spine (Chronic) Abdominal pain (Chronic) Chronic pancreatitis (Chronic) Liver mass (Chronic) Cirrhosis of liver (Chronic) Constipation (Chronic) Neuropathy (Chronic) Chronic pain (Chronic) Essential tremor (Chronic) Bimalleolar ankle fracture (Chronic) Chronic bronchitis with acute exacerbation (Chronic) Dehydration (Chronic) Epistaxis (Chronic) Hypoxia (Chronic) Anterior epistaxis (Chronic) Candidiasis of mouth (Chronic) DKA (diabetic ketoacidosis) (Chronic) Conjunctivitis (Chronic) Bronchitis (Chronic) Dehiscence of closure of skin (Chronic) Anemia (Chronic) Elevated liver enzymes (Chronic) 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) Radiculopathy, sacral and sacrococcygeal region (Chronic) Radiculopathy, lumbosacral region (Chronic) Insomnia (Chronic) Levator syndrome (Chronic) Sacrococcygeal pain (Chronic) History of surgery (Chronic) Hypothyroidism (Chronic) Chronic bronchitis (Chronic) 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) Depression (Chronic) Anxiety (Chronic) Hypertension (Chronic) Osteoporosis (Chronic) Rectal pain (Chronic) Low back pain (Chronic) Pain in thoracic spine (Chronic) Age-related osteoporosis with current pathological fracture, vertebra(e), initial encounter for fracture (Chronic) Medical History Abdominal pain Acute exacerbation of chronic obstructive airways disease Age-related osteoporosis with current pathological fracture, vertebra(e), initial encounter for fracture Anemia Anterior epistaxis Anxiety Arthralgia Bilateral primary osteoarthritis of hip Bimalleolar ankle fracture Bronchitis Candidiasis of mouth Chronic bronchitis with acute exacerbation Chronic pain Chronic pancreatitis Cirrhosis of liver Compression fracture of lumbosacral spine Conjunctivitis Constipation DDD (degenerative disc disease), cervical Dehiscence of closure of skin Dehydration Depression Diabetic retinopathy DKA (diabetic ketoacidosis) Elevated liver enzymes Epistaxis Essential tremor Fibromyalgia Fracture of lumbar spine Glaucoma Hard of hearing Hepatitis A Hyperglycemia due to type 2 diabetes mellitus Hypersomnia Hypertension Hypothyroidism Hypoxia Insomnia Levator syndrome Lipomatosis Liver mass Low back pain Macular degeneration Multiple environmental allergies Neurofibromatosis 2 Neuropathy Opioid dependence Osteoporosis Pain in thoracic spine Pancreatitis Radiculopathy, lumbosacral region Radiculopathy, sacral and sacrococcygeal region Rectal pain REM sleep behavior disorder Sacrococcygeal pain Sleep disturbance Sleepwalking Snoring Stress Tremor Trigger finger Surgical History History of appendectomy (~1970) History of arthroplasty of right ankle (~2017) History of cataract surgery (~2003) History of cholecystectomy History of colonoscopy (~06/26/18) History of decompression of median nerve (~2003) History of dilation and curettage History of eye surgery (~2005) Glaucoma History of hand surgery (~2003) Release of trigger finger, right History of left breast biopsy (~2005) History of oophorectomy History of surgery Vertebroplasty T12 w/sed 1/13/20 History of surgery retinopathy laser Stereotactic destruction of lesion using gamma radiation-2004 History of surgery on wrist History of tonsillectomy and adenoidectomy (~1970) Family History Mother Heart disease Fibromyalgia Father Malignant melanoma Malignant tumor of prostate Leukemia Social History education level: college occupational status: retired smoking status: Never smoker alcohol intake frequency: does not drink MEDS/ALLERGIES Home Medications and Allergies Home Medications Medication Instructions Recorded Confirmed Type calcium polycarbophil 625 mg tablet 1,250 mg PO DAILY 09/18/17 08/22/21 History gabapentin 400 mg capsule 800 mg PO QIDP 09/18/17 08/22/21 History insulin regular human 100 unit/mL See Rx Instructions .ROUTE .COMPLEX 09/18/17 08/22/21 History injection solution (Novolin R Regular U-100 Insulin) aeupstdqwjsw-kzfzwylh-semi 1 ea PO DAILY 09/18/17 08/22/21 History fumarate 7.5 mg-folic acid 400 mcg tablet albuterol sulfate 90 mcg/actuation 1 puff IH Q4-6HP PRN #1 inhaler 09/25/17 08/22/21 Rx aerosol inhaler vit C,C-Vq-irnrkn-lutein-zeaxan 60 1 tab PO DAILY 02/25/18 08/22/21 History mg-13.5 mg-15 mg-2 mg-6 mg capsule (Healthy Eyes Lutein-Zeaxanthin) acyclovir 400 mg tablet 400 mg PO QDAY 03/09/20 08/22/21 History betamethasone dipropionate 0.05 % See Rx Instructions TOPICAL 03/09/20 08/22/21 History topical ointment .COMPLEX losartan 50 mg tablet 50 mg PO QDAY 03/09/20 08/22/21 History atorvastatin 40 mg tablet 40 mg PO QHS 06/01/21 08/22/21 History insulin degludec 100 unit/mL 25 unit SUBCUT BID 06/01/21 08/22/21 History subcutaneous solution (Tresiba U-100 Insulin) levothyroxine 100 mcg tablet 100 mcg PO DAILY 06/01/21 08/22/21 History swsfeu-kvoljtka-phziuuh 40,000 cap PO TID 06/01/21 08/22/21 History 40,000-126,000-168,000 unit capsule, delay rel (Zenpep) mirtazapine 7.5 mg tablet 7.5 mg PO DAILY 06/01/21 08/22/21 History ciprofloxacin HCl 0.3 % eye See Rx Instructions .ROUTE 06/14/21 08/22/21 Rx ointment (Ciloxan) .COMPLEX #3.5 g Lactobacillus acidophilus 2 tab PO QDAY tab 07/15/21 08/22/21 History (Acidophilus) Saccharomyces boulardii [Daily 1 tab PO QAM 07/15/21 08/22/21 History Probiotic (S. boulardii)] bismuth subsalicylate 262 mg See Rx Instructions PO .COMPLEX PRN 07/15/21 08/22/21 History chewable tablet (Pepto-Bismol To-Go) cholecalciferol (vitamin D3) PO QDAY 07/15/21 08/22/21 History diclofenac sodium 1 % topical gel 2 g TOPICAL QID 07/15/21 08/22/21 History diphenhydramine HCl 25 mg tablet 25 mg PO Q4H tab 07/15/21 08/22/21 History (Sleep-Tabs) docusate sodium [Stool Softener] PO 07/15/21 08/22/21 History fluticasone propionate 50 1 spray INTRANASAL QDAY 07/15/21 08/22/21 History mcg/actuation nasal spray,suspension (Allergy Relief (fluticasone)) hyoscyamine sulfate 0.125 mg 0.125 mg PO Q6H PRN tab 07/15/21 08/22/21 History sublingual tablet miconazole nitrate [Monistat 3] VAGINAL 07/15/21 08/22/21 History multivit zqw-idrt-EZ-herb 186 PO 07/15/21 08/22/21 History [Hair, Skin and Nails Advanced] zinc 50 mg tablet 50 mg PO QDAY 07/15/21 08/22/21 History trazodone 100 mg tablet 100 mg PO QDAY PRN 08/22/21 08/22/21 History Allergies Allergy/AdvReac Type Severity Reaction Status Date / Time cephalexin [From Keflex] Allergy Intermediate Swelling Verified 05/31/21 20:56 Anistreplase [From Eminase] Allergy Unknown UNKNOWN Verified 05/31/21 20:56 codeine Allergy Unknown UNKNOWN Verified 05/31/21 20:56 fenugreek Allergy Unknown UNKNOWN Verified 05/31/21 20:56 Penicillins Allergy Unknown UNKNOWN Verified 05/31/21 20:56 Sulfa (Sulfonamide Allergy Unknown UNKNOWN Verified 05/31/21 20:56 Antibiotics) promethazine AdvReac Intermediate Fainting Verified 06/01/21 21:16 Erythromycin Base AdvReac Mild Itching Verified 06/01/21 21:16 Nortriptyline AdvReac Mild Nausea Verified 06/01/21 21:16 trulicity Allergy Unknown Unknown Uncoded 07/15/21 09:11 EXAM Constitutional Vitals: Temp Pulse Resp BP Pulse Ox 98.9 F 71 21 111/53 97 09/20/21 14:27 09/20/21 16:51 09/20/21 16:51 09/20/21 16:51 09/20/21 16:51 Exam: General: Alert, Awake, No acute Distress Eyes/N/T: EOMI, PERRL, Head/Neck: neck supple, normocephalic atraumatic CV: RRR, 1/6 SM Pulm: Clear b/l, no wheezing/rhonchi/rales Abd: soft, nontender, +BS x4 Ext: no clubbing/cyanosis/edema Neuro: Alert, no focal deficits, moves all extremities, CN 2-12 grossly intact, symmetrical strength b/l upper/lower, sensations intact b/l upper/lower Skin: warm/dry DATA Data Completed and Pending Labs: Labs from last 24 hours 09/20/21 09/20/21 09/20/21 15:13 14:42 14:42 WBC RBC Hgb Hct MCV MCH MCHC RDW Plt Count MPV Neut % (Auto) Lymph % (Auto) [place] % (Auto) Eos % (Auto) Baso % (Auto) Lymph # (Auto) [place] # (Auto) Eos # (Auto) Baso # (Auto) Absolute Neutrophils Sodium Potassium Chloride Carbon Dioxide Anion Gap BUN Creatinine GFR Calculation Glucose Calcium Magnesium Total Bilirubin AST ALT Alkaline Phosphatase Troponin T < 0.01 Total Protein Albumin Globulin Albumin/Globulin Ratio Beta-Hydroxybutyrate 4.47 H Urine Color Pending Urine Appearance Pending Urine pH Pending Ur Specific [place] Pending Urine Protein Pending Urine Glucose (UA) Pending Urine Ketones Pending Urine Occult Blood Pending Urine Nitrate Pending Urine Bilirubin Pending Urine Urobilinogen Pending Ur Leukocyte Esterase Pending 09/20/21 09/20/21 09/20/21 14:42 14:42 14:42 WBC 12.0 H RBC 4.68 Hgb 14.2 Hct 40.1 MCV 85.7 MCH 30.3 MCHC 35.4 RDW 13.2 Plt Count 268 MPV 11.0 H Neut % (Auto) 70.0 Lymph % (Auto) 24.4 [place] % (Auto) 4.8 Eos % (Auto) 0.3 Baso % (Auto) 0.5 Lymph # (Auto) 2.92 [place] # (Auto) 0.58 Eos # (Auto) 0.04 Baso # (Auto) 0.06 Absolute Neutrophils 8.37 H Sodium 130 L Potassium 4.5 Chloride 95 L Carbon Dioxide 13 L Anion Gap 22.0 H BUN 19 Creatinine 1.2 H GFR Calculation 44 Glucose 280 H Calcium 9.6 Magnesium 1.9 Total Bilirubin 0.4 AST 80 H ALT 58 H Alkaline Phosphatase 160 H Troponin T Total Protein 7.7 Albumin 4.5 Globulin 3.2 Albumin/Globulin Ratio 1.4 Beta-Hydroxybutyrate Urine Color Urine Appearance Urine pH Ur Specific [place] Urine Protein Urine Glucose (UA) Urine Ketones Urine Occult Blood Urine Nitrate Urine Bilirubin Urine Urobilinogen Ur Leukocyte Esterase A/P Narrative A/P Narrative: A: *DKA (DM w/neuropathy): -A1c *Generalized weakness: *Candidal vulvovaginitis: s/p fluconazole in ED *HTN/HLD: on ARB *Hypothyroidism: *Cirrhosis: Follows with Dulce Delcid *Frequently elevated liver enzymes P: -IVF -insulin gtt -monitor electrolytes -PT/OT -Home medication reconciliation -ppx: Lovenox Time Spent With Patient Time: Total time spent is greater than 50% in coordination of care (as documented) at patient's floor/unit and/or counseling patient:
[2021-09-20] MEDS ORDERED: DEXTROSE 5%-1/2NS 1,000 ML IV ONE (17:16)
[2021-09-20 18:29] LABS: Appearance,Urine Clear (Clear); Bilirubin,Urine Negative (Negative); Color,Urine Yellow; Culture Indicated,Urine No; Ketones,Urine >=160 mg/dL mg/dL (Negative); Leukocyte Esterase,Urine Negative /uL (Negative); Nitrate,Urine Negative (Negative); PH,Urine 5.5 (5.0-9.0); Specific Gravity,Urine >= 1.030 (1.000-1.035); Urine Blood Moderate ery/mcL (Negative); Urine Hyaline Cast 19 /lph (0-2); Urine RBC 4 /hpf (0-3); Urine Squamous Epithelial Cell 0 /hpf (0-4); Urine WBC < 1 /hpf (0-4); Urobilinogen,Urine Normal
[2021-09-20] MEDS ORDERED: POLYETHYLENE GLYCOL 3350 17 GM PACKET PO PRN (18:51)
[2021-09-20] MEDS ORDERED: POTASSIUM CHLORIDE 20 MEQ TABLET PO PRN ×2 (18:51)
[2021-09-20] MEDS ORDERED: LACTATED RINGERS 1,000 ML IV SCH ×2 (18:51→19:30)
[2021-09-20] MEDS ORDERED: PROCHLORPERAZINE 10 MG/2 ML VIAL IV PRN (18:51)
[2021-09-20] MEDS ORDERED: IPRATROPIUM/ALBUTEROL 3 ML AMPUL.NEB NEB PRN (18:51)
[2021-09-20] MEDS ORDERED: ONDANSETRON 4 MG/2 ML VIAL IV PRN (18:51)
[2021-09-20] MEDS ORDERED: SENNOSIDES 1 TABLET PO PRN (18:51)
[2021-09-20] MEDS ORDERED: MAGNESIUM SULFATE 2 GM/50 ML BAG IV PRN (18:51)
[2021-09-20] MEDS ORDERED: POTASSIUM CHLORIDE 40 MEQ in DEXTROSE 5% IN WATER 500 ML IV PRN (18:51)
[2021-09-20] MEDS: 0.9 % SODIUM CHLORIDE 10 ML SYRINGE IV SCH ×2 (18:54→21:00)
[2021-09-20] MEDS: 0.9 % SODIUM CHLORIDE 250 ML IV SCH (18:58)
[2021-09-20 19:46] LABS: POC Blood Urea Nitrogen 17 mg/dL (6-20); POC CO2 19 mmol/L (22-30); POC Calcium, Ionized 1.35 mmEq/L (1.16-1.32); POC Chloride 103 mEq/L (96-108); POC Creatinine 0.7 mg/dL (0.6-1.2); POC Glucose, Random 181 mg/dL (70-105); POC Hematocrit 37 % (36-48); POC Potassium 3.6 mEql/L (3.3-5.1); POC Sodium 135 mEq/L (133-145)
[2021-09-20] MEDS: DEXTROSE 5%-1/2NS 1,000 ML IV SCH (20:59)
[2021-09-21] MEDS: DEXTROSE 5%-1/2NS 1,000 ML IV SCH ×2 (02:04→04:18)
[2021-09-21] MEDS: 0.9 % SODIUM CHLORIDE 10 ML SYRINGE IV SCH ×3 (04:19→23:43)
[2021-09-21 06:48] LABS: Basophils # (Auto) 0.03 K/mcL (0.00-0.30); Basophils % (Auto) 0.4 % (0.0-2.0); Eosinophils # (Auto) 0.16 K/mcL (0.00-0.70); Eosinophils % (Auto) 2.2 % (0.0-7.0); Hematocrit 35.5 % (34.1-44.9); Hemoglobin 12.4 g/dL (11.2-15.7); Lymphocytes # (Auto) 3.02 K/mcL (1.50-4.80); Lymphocytes % (Auto) 41.8 % (15.5-49.0); Mean Cell Volume 85.5 fL (80.0-100.0); Mean Corpuscular HGB Conc 34.9 g/dL (31.0-36.0); Mean Platelet Volume 10.6 fL (7.4-10.4); Monocytes # (Auto) 0.37 K/mcL (0.10-0.90); Monocytes % (Auto) 5.1 % (1.0-12.0); Neutrophils % (Auto) 50.5 % (38.0-78.0); Platelet Count 172 K/mcL (140-440); RBC 4.15 M/mcL (3.59-5.38); Red Cell Distribution Width 13.4 % (11.5-14.5); WBC 7.2 K/mcL (4.5-11.0)
[2021-09-21 06:58] LABS: ALT/SGPT 39 U/L (<40); AST/SGOT 41 U/L (<32); Albumin 3.6 gm/dL (3.2-5.2); Albumin/Globulin Ratio 1.8 (1.0-2.3); Alkaline Phosphatase 121 U/L (39-117); Beta Hydroxybutyrate 0.16 mmol/L (<0.27); Bilirubin,Direct < 0.2 mg/dL (0-0.3); Bilirubin,Total 0.3 mg/dL (0.1-1.0); Blood Urea Nitrogen 12 mg/dL (8-23); Calcium 8.7 mg/dL (8.6-10.4); Carbon Dioxide 19 mmol/L (22-30); Chloride 106 mmol/L (96-108); Glomerular Filtration Rate 84; Glucose 154 mg/dL (70-105); Lactate Dehydrogenase 182 U/L (135-225); Phosphorous 2.3 mg/dL (2.5-4.5); Triglycerides 131 mg/dL (<150); Uric Acid 6.9 mg/dL (2.5-8.0)
--- NOTE | 2021-09-21 08:00 | Internal Med Progress Note ---
SUBJECTIVE Subjective Patient information: Note initiated : 09/21/21 at 7:56 am Service Date, if different from initiated Date: [] Patient: Tennille Castillo a 76 y/o F admitted on 09/20/21 for weakness x 1 week. Chief Complaint: [] Interval history: Chief Complaint: [] History of present illness: Ms. Castillo is a 76 year old F Presents to the ED with generalized weakness lightheadedness. Patient states she has caregivers that help her take care of her but they have not been the recent because of the snow. Her daughter helps her out quite a bit about of the daughter is out of town. She complained of dysuria and in the ED was evaluated found to have candidal vulvovaginitis. Laboratory was also consistent with DKA. She was given oral fluconazole in the ED. Also given IV fluids and started on insulin drip. 09/21 Feeling a little better. Other than poor sleep last night. Review of Systems: denies headache/fever/chills/nausea/vomiting/chest or abdominal pain/cough/dyspnea/diarrhea. Otherwise see above. Constitutional Vitals: Vital Signs Temp Pulse Resp BP Pulse Ox 98.8 F 64 14 106/63 95 09/21/21 02:01 09/21/21 04:01 09/21/21 06:01 09/21/21 06:01 09/21/21 06:01 Period Temp Pulse Resp BP Sys/Rosario Pulse Ox Last 24 Hr 97.0 F-98.9 F 64-80 9-21 98-139/45-92 94-99 Intake and Output 09/20/21 09/21/21 09/21/21 21:59 05:59 13:59 Intake Total 1053 939 480 Output Total 1200 Balance 1053 939 -720 Weight 65.941 kg Intake & Output: Intake & Output 09/20/21 09/21/21 09/21/21 21:59 05:59 13:59 Intake Total 1053 939 480 Output Total 1200 Balance 1053 939 -720 Weight 65.941 kg Intake: IV 1053 939 Sodium Chloride 0.9% 500 ml @ 500 Wide Open IV BOLUS ONE Rx#: [id number] Dextrose 5%-1/2Ns IV Solution 1 128 872 ,000 ml @ 100 mls/hr IV .Q10H ONE Rx#:[id number] HumuLIN R 50 UNIT In Sodium 25 67 Chloride 0.9% 99.5 ml @ 5 UNIT/ HR 10 mls/hr IV DUR PEG Rx#: [id number] Lactated Ringers 1,000 ml @ 400 Wide Open IV BOLUS ONE Rx#: [id number] Oral 480 Output: Void Amount 1200 Other: Meal snack Percent of Meal Consumed 75% Urine Appearance Clear Fem Cath Clear Urine Color Pale Fem Cath Bright Yellow Urine Odor Fem Cath Normal # Voids 1 Exam: General: Alert, Awake, No acute Distress Eyes/N/T: EOMI, , Head/Neck: neck supple, CV: RRR, 09/21 SM Pulm: Clear b/l, no wheezing/rhonchi/rales Abd: soft, nontender, +BS x4 Ext: no clubbing/cyanosis/edema Neuro: Alert, no focal deficits, moves all extremities, Skin: warm/dry OBJ DATA Labs CBC & Chem 7: 09/21/21 05:20 09/21/21 05:53 Labs: Abnormal Lab Results 09/21/21 09/21/21 09/20/21 05:53 05:20 19:38 WBC MPV 10.6 H Absolute Neutrophils Sodium Chloride Carbon Dioxide 19 L POC Total CO2 19 L Anion Gap Creatinine Glucose 154 H POC Glucose 181 H Hemoglobin A1c POC WB Ioniz Calcium 1.35 H Phosphorus 2.3 L GGT 79 H AST 41 H ALT Alkaline Phosphatase 121 H Total Protein 5.6 L Globulin 2.0 L Beta-Hydroxybutyrate Urine Protein Urine Glucose (UA) Urine Ketones Urine Occult Blood Urine RBC Hyaline Casts 09/20/21 09/20/21 09/20/21 15:13 14:42 14:42 WBC MPV Absolute Neutrophils Sodium Chloride Carbon Dioxide POC Total CO2 Anion Gap Creatinine Glucose POC Glucose Hemoglobin A1c 12.0 H POC WB Ioniz Calcium Phosphorus GGT AST ALT Alkaline Phosphatase Total Protein Globulin Beta-Hydroxybutyrate 4.47 H Urine Protein 30 mg/dl A Urine Glucose (UA) 500 mg/dl A Urine Ketones >=160 mg/dl A Urine Occult Blood Moderate A Urine RBC 4 H Hyaline Casts 19 H 09/20/21 09/20/21 14:42 14:42 WBC 12.0 H MPV 11.0 H Absolute Neutrophils 8.37 H Sodium 130 L Chloride 95 L Carbon Dioxide 13 L POC Total CO2 Anion Gap 22.0 H Creatinine 1.2 H Glucose 280 H POC Glucose Hemoglobin A1c POC WB Ioniz Calcium Phosphorus GGT AST 80 H ALT 58 H Alkaline Phosphatase 160 H Total Protein Globulin Beta-Hydroxybutyrate Urine Protein Urine Glucose (UA) Urine Ketones Urine Occult Blood Urine RBC Hyaline Casts Meds: Medications Acetaminophen (Acetaminophen 325 Mg Tablet) 650 mg PO Q6HP PRN; Protocol PRN Reason: Per Pain Protocol/Fever > 101 Albuterol/Ipratropium (Ipratropium/Albuterol 3 Ml Ampul.Neb) 3 ml NEB Q4HP PRN PRN Reason: Shortness Of Breath Diagnostic Test (Pha) (Accu-Chek 1 Each Strip) 1 each FS Q1 [facility] Last Admin: 09/21/21 07:09 Dose: 1 each Documented by: Enoxaparin Sodium (Enoxaparin 40 Mg/0.4 Ml Syringe) 40 mg SQ DAILY [facility] Potassium Chloride 40 meq/ (Dextrose) 520 mls @ 130 mls/hr IV UD PRN PRN Reason: Potassium < 3 Magnesium Sulfate (Magnesium Sulfate) 2 gm in 50 mls @ 50 mls/hr IV UD PRN PRN Reason: Magnesium </= 1.6 Sodium Chloride (Sodium Chloride 0.9%) 250 mls @ 20 mls/hr IV .[id number] [facility] Last Admin: 09/20/21 18:58 Dose: 20 mls/hr Documented by: Insulin Human Regular 50 unit/ (Sodium Chloride) 100 mls @ 4 mls/hr IV DUR [facility]; Protocol Last Admin: 09/21/21 07:10 Dose: 2 unit/hr, 4 mls/hr Documented by: Dextrose/Sodium Chloride (Dextrose 5%-1/2ns Iv Solution) 1,000 mls @ 125 mls/hr IV .Q8H [facility] Last Admin: 09/21/21 04:18 Dose: Not Given Documented by: Ondansetron HCl (Ondansetron 4 Mg/2 Ml Vial) 4 mg IV Q4HP PRN PRN Reason: Nausea And Vomiting Polyethylene Glycol (Polyethylene Glycol 3350 17 Gm Packet) 17 gm PO DAILYP PRN PRN Reason: Constipation Potassium Chloride (Potassium Chloride 20 Meq Tablet) 40 meq PO UD PRN PRN Reason: Potssium is 3-3.5 Potassium Chloride (Potassium Chloride 20 Meq Tablet) 40 meq PO UD PRN PRN Reason: Potassium < 3 Prochlorperazine (Prochlorperazine 10 Mg/2 Ml Vial) 10 mg IV Q6HP PRN PRN Reason: Nausea And Vomiting Senna (Sennosides 1 Tablet) 2 tab PO DAILYP PRN PRN Reason: Constipation Sodium Chloride (0.9 % Sodium Chloride 10 Ml Syringe) 10 ml IV Q8 PEG Last Admin: 09/21/21 04:19 Dose: Not Given Documented by: A/P Narrative A/P Narrative: 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 *Generalized weakness: *Candidal vulvovaginitis: s/p fluconazole in ED *HTN/HLD: on ARB *Hypothyroidism: *Cirrhosis: Follows with Dulce Delcid *Frequently elevated liver enzymes P: -insulin gtt to SQ -titrate insulin as needed -monitor electrolytes -PT/OT -CM for placement needs -ppx: Lovenox Time Spent With Patient Time: Total time spent is greater than 50% in coordination of care (as documented) at patient's floor/unit and/or counseling patient: QUALITY VTE Deep Vein Thrombosis/Pulmonary Embolism Present on Admission: No
[2021-09-21] MEDS ORDERED: traZODone HCL 100 MG TABLET PO PRN (08:02)
[2021-09-21] MEDS ORDERED: DEXTROSE 31 GM ORAL.SUSP PO PRN (08:03)
[2021-09-21] MEDS ORDERED: DEXTROSE 50% 50 ML VIAL IV PRN (08:03)
[2021-09-21] MEDS: 0.9 % SODIUM CHLORIDE 250 ML IV SCH ×2 (08:08→21:38)
[2021-09-21] MEDS ORDERED: GABAPENTIN 400 MG CAPSULE PO SCH (08:15)
[2021-09-21] MEDS: LEVOTHYROXINE 125 MCG TABLET PO SCH (09:05)
[2021-09-21] MEDS: INSULIN GLARGINE, HUMAN 1 UNIT/0.01 ML SQ SCH ×2 (09:05→21:28)
[2021-09-21] MEDS: DULoxetine 30 MG CAPSULE PO SCH (09:05)
[2021-09-21] MEDS: ENOXAPARIN 40 MG/0.4 ML SYRINGE SQ SCH (09:06)
[2021-09-21] MEDS ORDERED: diphenhydrAMINE 25 MG CAPSULE PO PRN (09:13)
[2021-09-21] MEDS: INSULIN DEGLUDEC 100 UNIT/ML SUB-Q SCH ×2 (09:15→21:39)
[2021-09-21] MEDS ORDERED: traZODone HCL 100 MG TABLET PO SCH (09:15)
[2021-09-21] MEDS: ACETAMINOPHEN 325 MG TABLET PO PRN ×3 (09:29→21:35)
[2021-09-21] MEDS ORDERED: INSULIN REGULAR, HUMAN 50 UNIT in 0.9 % SODIUM CHLORIDE 99.5 ML IV PRN (10:15)
[2021-09-21] MEDS: INSULIN LISPRO 1 UNIT/0.01 ML UNIT SQ SCH ×4 (11:18→21:29)
--- NOTE | 2021-09-21 11:36 | Discharge Summary ---
Discharge Provider Provider Patient information: Note initiated : 09/21/21 at 11:36 am Service Date, if different from initiated Date: [] Patient: Tennille Castillo 76 y/o F admitted on 09/20/21 for weakness x 1 week. Chief Complaint: [] Date of admission: 09/20/21 18:36 Discharge date: 09/22/21 Primary care physician: Faye Porras DO Consults: 09/20/21 Consult to Physician [CONS] Stat Comment: Consulting Provider: Jef Borges Reason For Exam: Physician to Consult Discharge Meds Discharge Medications Home Medications insulin regular human 100 unit/mL injection solution (Novolin R Regular U-100 Insulin) See Rx Instructions .ROUTE .COMPLEX 09/18/17 [History Confirmed 09/21/21 Last Taken 07/15/18] yaegdtclzped-kmuqindz-xfpd fumarate 7.5 mg-folic acid 400 mcg tablet 1 ea PO DAILY 09/18/17 [History Confirmed 09/21/21 Last Taken 07/15/18] vit C,B-Lm-wbrpxp-lutein-zeaxan 60 mg-13.5 mg-15 mg-2 mg-6 mg capsule (Healthy Eyes Lutein-Zeaxanthin) 1 tab PO DAILY 02/25/18 [History Confirmed 09/21/21 Last Taken 07/15/18] losartan 50 mg tablet 50 mg PO QDAY 03/09/20 [History Confirmed 09/21/21 Last Taken Unknown] atorvastatin 40 mg tablet 40 mg PO QHS 06/01/21 [History Confirmed 09/21/21 Last Taken Unknown] levothyroxine 100 mcg tablet 125 mcg PO DAILY 06/01/21 [History Confirmed 09/21/21 Last Taken Unknown] bjcxjc-vqnktpws-grsgbny 40,000-126,000-168,000 unit capsule, delay rel (Zenpep) 40,000 cap PO TID 06/01/21 [History Confirmed 09/21/21 Last Taken Unknown] Lactobacillus acidophilus (Acidophilus) 2 tab PO QDAY tab 07/15/21 [History Confirmed 09/21/21 Last Taken Unknown] Saccharomyces boulardii [Daily Probiotic (S. boulardii)] 1 tab PO QAM 07/15/21 [History Confirmed 09/21/21 Last Taken Unknown] cholecalciferol (vitamin D3) PO QDAY 07/15/21 [History Confirmed 08/22/21 Last Taken Unknown] diphenhydramine HCl 25 mg tablet (Sleep-Tabs) 50 mg PO Q4H tab 07/15/21 [History Confirmed 09/21/21 Last Taken Unknown] docusate sodium [Stool Softener] 1 dose PO DAILY PRN 07/15/21 [History Confirmed 08/22/21 Last Taken Unknown] fluticasone propionate 50 mcg/actuation nasal spray,suspension (Allergy Relief (fluticasone)) 1 spray INTRANASAL QDAY 07/15/21 [History Confirmed 09/21/21 Last Taken Unknown] hyoscyamine sulfate 0.125 mg sublingual tablet 0.125 mg PO Q6H PRN tab 07/15/21 [History Confirmed 09/21/21 Last Taken Unknown] miconazole nitrate [Monistat 3] VAGINAL 07/15/21 [History Confirmed 08/22/21 Last Taken Unknown] multivit fwe-auec-FC-herb 186 [Hair, Skin and Nails Advanced] 1 tab PO DAILY 07/15/21 [History Confirmed 09/21/21 Last Taken Unknown] zinc 50 mg tablet 50 mg PO QDAY 07/15/21 [History Confirmed 09/21/21 Last Taken Unknown] trazodone 100 mg tablet 100 mg PO QDAY PRN 08/22/21 [History Confirmed 09/21/21 Last Taken Unknown] duloxetine 30 mg capsule,delayed release 30 mg PO QDAY 09/20/21 [History Confirmed 09/21/21 Last Taken Unknown] acyclovir 400 mg tablet 1 tab PO BID 09/21/21 [History Confirmed 09/21/21 Last Taken Unknown] gabapentin 800 mg tablet 1 tab PO QID 09/21/21 [History Confirmed 09/21/21 Last Taken Unknown] insulin aspart U-100 100 unit/mL (3 mL) subcutaneous pen (Novolog Flexpen U-100 Insulin aspart) sliding scale dose SUBCUT UD 09/21/21 [History Last Taken Unknown] insulin degludec 100 unit/mL subcutaneous solution (Tresiba U-100 Insulin) 30 unit (0.3 mL) SUBCUT BID #1 ml 09/22/21 [Rx Last Taken Unknown] COURSE Hospital Course Hospital course: History of present illness: Ms. Castillo is a 76 year old F Presents to the ED with generalized weakness lightheadedness. Patient states she has caregivers that help her take care of her but they have not been the recent because of the snow. Her daughter helps her out quite a bit about of the daughter is out of town. She complained of dysuria and in the ED was evaluated found to have candidal vulvovaginitis. Laboratory was also consistent with DKA. She was given oral fluconazole in the ED. Also given IV fluids and started on insulin drip. 09/21 Feeling a little better. Other than poor sleep last night. 09/22 Doing well. Want to go home. Stable for discharge. 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 *Generalized weakness: *Candidal vulvovaginitis: s/p fluconazole in ED *HTN/HLD: on ARB *Hypothyroidism: *Cirrhosis: Follows with Dulce Delcid *Frequently elevated liver enzymes Discharge diagnosis: DKA generalized weakness candidal vulvovaginitis Secondary discharge diagnosis: Cirrhosis hypertension hypothyroidism Time Spent with Patient Time attestation: Total time spent providing and/or coordinating discharge services: Time spent: Greater than 30 minutes EXAM Constitutional Vitals: Temp Pulse Resp BP Pulse Ox 98.8 F 64 14 106/63 95 09/21/21 02:01 09/21/21 04:01 09/21/21 06:01 09/21/21 06:01 09/21/21 06:01 Discharge Data Data Completed and Pending Labs on day of discharge: Labs from last 24 hours 09/21/21 09/21/21 09/20/21 05:53 05:20 19:38 WBC 7.2 RBC 4.15 Hgb 12.4 Hct 35.5 POC Hct 37 MCV 85.5 MCH 29.9 MCHC 34.9 RDW 13.4 Plt Count 172 MPV 10.6 H Neut % (Auto) 50.5 Lymph % (Auto) 41.8 Rowan % (Auto) 5.1 Eos % (Auto) 2.2 Baso % (Auto) 0.4 Lymph # (Auto) 3.02 Rowan # (Auto) 0.37 Eos # (Auto) 0.16 Baso # (Auto) 0.03 Absolute Neutrophils 3.64 POC Sodium 135 Sodium 136 POC Potassium 3.6 Potassium 3.3 POC Chloride 103 Chloride 106 Carbon Dioxide 19 L POC Total CO2 19 L Anion Gap 11.0 POC BUN 17 BUN 12 Creatinine 0.7 POC Creatinine 0.7 GFR Calculation 84 Glucose 154 H POC Glucose 181 H Hemoglobin A1c Estim Average Glucose Uric Acid 6.9 Calcium 8.7 POC WB Ioniz Calcium 1.35 H Phosphorus 2.3 L Magnesium 1.8 Total Bilirubin 0.3 Direct Bilirubin < 0.2 GGT 79 H AST 41 H ALT 39 Alkaline Phosphatase 121 H Lactate Dehydrogenase 182 Troponin T Total Protein 5.6 L Albumin 3.6 Globulin 2.0 L Albumin/Globulin Ratio 1.8 Triglycerides 131 Beta-Hydroxybutyrate 0.16 Urine Color Urine Appearance Urine pH Ur Specific [employer] Urine Protein Urine Glucose (UA) Urine Ketones Urine Occult Blood Urine Nitrate Urine Bilirubin Urine Urobilinogen Ur Leukocyte Esterase Urine RBC Urine WBC Ur Squamous Epith Cells Urine Bacteria Hyaline Casts Ur Culture Indicated? 09/20/21 09/20/21 09/20/21 15:13 14:42 14:42 WBC RBC Hgb Hct POC Hct MCV MCH MCHC RDW Plt Count MPV Neut % (Auto) Lymph % (Auto) Rowan % (Auto) Eos % (Auto) Baso % (Auto) Lymph # (Auto) Rowan # (Auto) Eos # (Auto) Baso # (Auto) Absolute Neutrophils POC Sodium Sodium POC Potassium Potassium POC Chloride Chloride Carbon Dioxide POC Total CO2 Anion Gap POC BUN BUN Creatinine POC Creatinine GFR Calculation Glucose POC Glucose Hemoglobin A1c 12.0 H Estim Average Glucose 298 Uric Acid Calcium POC WB Ioniz Calcium Phosphorus 3.0 Magnesium Total Bilirubin Direct Bilirubin GGT AST ALT Alkaline Phosphatase Lactate Dehydrogenase Troponin T Total Protein Albumin Globulin Albumin/Globulin Ratio Triglycerides Beta-Hydroxybutyrate Urine Color Yellow Urine Appearance Clear Urine pH 5.5 Ur Specific [employer] >= 1.030 Urine Protein 30 mg/dl A Urine Glucose (UA) 500 mg/dl A Urine Ketones >=160 mg/dl A Urine Occult Blood Moderate A Urine Nitrate Negative Urine Bilirubin Negative Urine Urobilinogen Normal Ur Leukocyte Esterase Negative Urine RBC 4 H Urine WBC < 1 Ur Squamous Epith Cells 0 Urine Bacteria None Hyaline Casts 19 H Ur Culture Indicated? No 09/20/21 09/20/21 09/20/21 14:42 14:42 14:42 WBC RBC Hgb Hct POC Hct MCV MCH MCHC RDW Plt Count MPV Neut % (Auto) Lymph % (Auto) Rowan % (Auto) Eos % (Auto) Baso % (Auto) Lymph # (Auto) Rowan # (Auto) Eos # (Auto) Baso # (Auto) Absolute Neutrophils POC Sodium Sodium POC Potassium Potassium POC Chloride Chloride Carbon Dioxide POC Total CO2 Anion Gap POC BUN BUN Creatinine POC Creatinine GFR Calculation Glucose POC Glucose Hemoglobin A1c Estim Average Glucose Uric Acid Calcium POC WB Ioniz Calcium Phosphorus Magnesium 1.9 Total Bilirubin Direct Bilirubin GGT AST ALT Alkaline Phosphatase Lactate Dehydrogenase Troponin T < 0.01 Total Protein Albumin Globulin Albumin/Globulin Ratio Triglycerides Beta-Hydroxybutyrate 4.47 H Urine Color Urine Appearance Urine pH Ur Specific [employer] Urine Protein Urine Glucose (UA) Urine Ketones Urine Occult Blood Urine Nitrate Urine Bilirubin Urine Urobilinogen Ur Leukocyte Esterase Urine RBC Urine WBC Ur Squamous Epith Cells Urine Bacteria Hyaline Casts Ur Culture Indicated? 09/20/21 09/20/21 14:42 14:42 WBC 12.0 H RBC 4.68 Hgb 14.2 Hct 40.1 POC Hct MCV 85.7 MCH 30.3 MCHC 35.4 RDW 13.2 Plt Count 268 MPV 11.0 H Neut % (Auto) 70.0 Lymph % (Auto) 24.4 Rowan % (Auto) 4.8 Eos % (Auto) 0.3 Baso % (Auto) 0.5 Lymph # (Auto) 2.92 Rowan # (Auto) 0.58 Eos # (Auto) 0.04 Baso # (Auto) 0.06 Absolute Neutrophils 8.37 H POC Sodium Sodium 130 L POC Potassium Potassium 4.5 POC Chloride Chloride 95 L Carbon Dioxide 13 L POC Total CO2 Anion Gap 22.0 H POC BUN BUN 19 Creatinine 1.2 H POC Creatinine GFR Calculation 44 Glucose 280 H POC Glucose Hemoglobin A1c Estim Average Glucose Uric Acid Calcium 9.6 POC WB Ioniz Calcium Phosphorus Magnesium Total Bilirubin 0.4 Direct Bilirubin GGT AST 80 H ALT 58 H Alkaline Phosphatase 160 H Lactate Dehydrogenase Troponin T Total Protein 7.7 Albumin 4.5 Globulin 3.2 Albumin/Globulin Ratio 1.4 Triglycerides Beta-Hydroxybutyrate Urine Color Urine Appearance Urine pH Ur Specific [employer] Urine Protein Urine Glucose (UA) Urine Ketones Urine Occult Blood Urine Nitrate Urine Bilirubin Urine Urobilinogen Ur Leukocyte Esterase Urine RBC Urine WBC Ur Squamous Epith Cells Urine Bacteria Hyaline Casts Ur Culture Indicated? Discharge Plan Patient/Caregiver Discharge Instructions Activity: increase activity as tolerated Diet: Consistent Carbohydrate Instructions: Diabetic Ketoacidosis (GEN), Weakness (GEN) Activity Restrictions/Additional Instructions: Increase activity as tolerated, continue a consistent carbohydrate diet. Please call on Saturday to schedule an appointment with your Primary Care Physician [facility] will contact you to schedule an appointment This discharge packet is provided to you to help keep you informed about your care. We want to ensure you get everything you need when you go home. You will also be receiving a call from us in a few days to follow up with you and see how you are doing since your discharge. This gives us a chance to listen to any concerns you maybe experiencing since you were discharged or any additional needs you may have, as well as providing us feedback on your care experience. We strive to always provide excellent care and thank you for your feedback and for choosing [facility]. Prescriptions: Continued losartan 50 mg tablet 50 mg PO QDAY 0RF Acidophilus Tablet,Chewable 2 tab PO QDAY 0RF fluticasone propionate [Allergy Relief (fluticasone)] 50 mcg/actuation spray,suspension 1 spray intranasal QDAY 0RF Rx Instructions: administer into each nostril hyoscyamine sulfate 0.125 mg tablet, sublingual 0.125 mg PO Q6H PRN (Reason: Secretions) 0RF multivit npm-ipnt-LY-herb 186 [Hair, Skin and Nails Advanced] 1 tab PO DAILY 0RF miconazole nitrate [Monistat 3] vaginal 0RF Saccharomyces boulardii [Daily Probiotic (S. boulardii)] 1 tab PO QAM 0RF diphenhydramine HCl [Sleep-Tabs] 25 mg tablet 50 mg PO Q4H 0RF docusate sodium [Stool Softener] 1 dose PO DAILY PRN (Reason: Constipation) 0RF zinc 50 mg tablet 50 mg PO QDAY 0RF cholecalciferol (vitamin D3) PO QDAY 0RF Rx Instructions: 2000IU trazodone 100 mg tablet 100 mg PO QDAY PRN (Reason: insomnia) 0RF Novolin R Regular U-100 Insuln 100 UNIT/ML solution See Rx Instructions unit .ROUTE .COMPLEX 0RF Protocol: Insulin Sliding Scale, High Condition: HUMALOG/NOVALOG SC SLIDING Dose/Route: SCALE Condition: FSBS < 70 Dose/Route: Give 4 Oz juice, or 15gm oral Instruction: Glucose, or 25ml D50W IV if Dose/Route: unable to take PO. Recheck in Instruction: 15 min and repeat if FSBS < 70 Condition: FSBS 71-140 Dose/Route: NO COVERAGE Condition: FSBS 141-170 Dose/Route: 3 UNITS Condition: FSBS 171-200 Dose/Route: 6 UNITS Condition: FSBS 201-250 Dose/Route: 9 UNITS Condition: FSBS 251-300 Dose/Route: 12 UNITS Condition: FSBS 301-350 Dose/Route: 15 UNITS Condition: FSBS 351-400 Dose/Route: 18 UNITS Condition: FSBS > 400 Dose/Route: 20 UNITS; REPEAT Q2H X2 Instruction: CONTINUE FOLLOWING SLIDING Condition: SCALE; IF STILL > 400; CALL Dose/Route: PHYSICIAN Rx Instructions: 70-139 none 140-180 4 units 181-240 6 Units 241-300 8 Units >300 Can't read instructions txwamghv-vuq-yzow fum-folic ac 1 EACH tablet 1 ea PO DAILY 0RF Healthy Eyes Lutein-Zeaxanthin 1 TAB tablet 1 tab PO DAILY 0RF atorvastatin 40 mg tablet 40 mg PO QHS 0RF Label Comments: take 1 tablet by mouth at bedtime levothyroxine 100 mcg tablet 125 mcg PO DAILY 0RF Label Comments: take 1 tablet by mouth once daily Zenpep 40,000-126,000- 168,000 unit capsule,delayed release(DR/EC) 40,000 cap PO TID 0RF Label Comments: take 1 capsule by mouth three times a day duloxetine 30 mg Capsule,Delayed Release(Dr/Ec) 30 mg PO QDAY 0RF acyclovir 400 mg tablet 1 tab PO BID 0RF gabapentin 800 mg tablet 1 tab PO QID 0RF insulin aspart U-100 [Novolog Flexpen U-100 Insulin] 100 unit/mL (3 mL) insulin pen subcut UD 0RF Changed Tresiba U-100 Insulin 100 unit/mL solution 30 unit SUBCUT BID Qty: 1 0RF Follow Up Plan Follow up with: Faye Porras DO [Primary Care Provider] - (The office is closed on Saturday, please call on Saturday to schedule a post hospital follow up appointment.) Patient Disposition: Home Health Service Prognosis: Fair Overall status at discharge: patient is progressing back to baseline Discharge Orders: Discharge Order (Routine); Ordered 09/22/21 Ordered By: Jef GASCA VTE Deep Vein Thrombosis/Pulmonary Embolism Present on Admission: No
--- NOTE | 2021-09-21 12:27 | EKG ---
[facility] Test Date: 2021-09-20 Pat Name: Tennille Castillo Department: ED Room: Gender: Female Research Program Coordinator: oskar : 1945 Requested By: Rios Burton Order Number: [id number] Reading MD: Will Lawler M.D. Measurements Intervals Adrian Rate: 78 P: 9 NH: 160 QRS: 35 QRSD: 95 T: 100 QT: 404 QTc: 461 Interpretive Statements Sinus rhythm Probable left atrial enlargement Borderline repolarization abnormality Electronically Signed On 09-21-2021 12:27:45 PST by Will Lawler M.D. /[id number]
[2021-09-21] MEDS: LIPASE PO SCH ×2 (16:31→21:40)
[2021-09-21] MEDS: PROTEASE PO SCH ×2 (16:31→21:40)
[2021-09-21] MEDS: AMYLASE PO SCH ×2 (16:31→21:40)
[2021-09-21] MEDS ORDERED: MELATONIN 3 MG TABLET PO SCH (21:00)
[2021-09-21] MEDS ORDERED: ATORVASTATIN 40 MG TABLET PO SCH (21:00)
[2021-09-22] MEDS: GABAPENTIN 400 MG CAPSULE PO SCH ×2 (08:03→12:44)
[2021-09-22] MEDS: DULoxetine 30 MG CAPSULE PO SCH (08:03)
[2021-09-22] MEDS: INSULIN LISPRO 1 UNIT/0.01 ML UNIT SQ SCH ×2 (08:04→12:00)
[2021-09-22] MEDS: LEVOTHYROXINE 125 MCG TABLET PO SCH (08:04)
[2021-09-22] MEDS: ENOXAPARIN 40 MG/0.4 ML SYRINGE SQ SCH (08:04)
[2021-09-22] MEDS: 0.9 % SODIUM CHLORIDE 10 ML SYRINGE IV SCH ×2 (08:09→17:50)
[2021-09-22] MEDS ORDERED: INSULIN GLARGINE, HUMAN 1 UNIT/0.01 ML SQ SCH (09:00)
[2021-09-22] MEDS ORDERED: LOSARTAN 50 MG TABLET PO SCH (09:00)
[2021-09-22] MEDS: ACETAMINOPHEN 325 MG TABLET PO PRN (09:05)
[2021-09-22] MEDS: AMYLASE PO SCH ×2 (11:22→17:51)
[2021-09-22] MEDS: LIPASE PO SCH ×2 (11:22→17:51)
[2021-09-22] MEDS: PROTEASE PO SCH ×2 (11:22→17:51)
== END 2021-09-22 15:25 | disposition home health service (06) | DRG 639 ==
LOC: ED 14:21 → ICU 18:36
PROVIDERS: ADMIT Internal Medicine; ATTEND Internal Medicine

== ENCOUNTER 2021-12-03 21:49 | Inpatient (IN) ==
[2021-12-03] MEDS ORDERED: 0.9 % SODIUM CHLORIDE 1,000 ML IV ONE (21:55)
[2021-12-03 22:16] LABS: POC Blood Urea Nitrogen 18 mg/dL (6-20); POC CO2 9 mmol/L (22-30); POC Calcium, Ionized 1.16 mmEq/L (1.16-1.32); POC Chloride 100 mEq/L (96-108); POC Glucose, Random 697 mg/dL (70-105); POC Hematocrit 46 % (36-48); POC Potassium 4.8 mEql/L (3.3-5.1); POC Sodium 127 mEq/L (133-145)
[2021-12-03 22:34] LABS: Hematocrit 44.2 % (34.1-44.9); Hemoglobin 14.8 g/dL (11.2-15.7); Mean Cell Volume 92.9 fL (80.0-100.0); Mean Corpuscular HGB Conc 33.5 g/dL (31.0-36.0); Mean Platelet Volume 11.3 fL (7.4-10.4); Platelet Count 201 K/mcL (140-440); RBC 4.76 M/mcL (3.59-5.38); Red Cell Distribution Width 14.6 % (11.5-14.5); WBC 9.1 K/mcL (4.5-11.0)
[2021-12-03 23:04] LABS: Anisocytosis 1+ (None Seen); Basophils % (Manual) 1 % (0-2); Lymphocytes % 37 % (15-49); Monocytes % (Manual) 5 % (1-12); Platelet Estimate NORMAL (Normal); RBC Morphology ABNORMAL (Normal); Segmented Neutrophils % 57 % (38-78)
[2021-12-03] MEDS ORDERED: INSULIN REGULAR, HUMAN 1 UNIT/0.01 ML UNIT IV ONE (23:07)
[2021-12-03 23:34] LABS: Beta Hydroxybutyrate 10.86 mmol/L (<0.27)
[2021-12-03 23:43] LABS: ABG Methemoglobin 0.3 % (0.4-1.5); VBG Base Excess 1 (-2-3); VBG HCO3 24.5 mmol/L (24.0-28.0); VBG Oxygen Saturation 89.3 % (40.0-70.0); VBG PCO2 34.9 mmHg (41.0-51.0); VBG PH 7.46 U (7.32-7.42); VBG PO2 149.7 mmHg (25.0-40.0); VBG Total CO2 25.6 mmol/L (25.0-29.0)
--- NOTE | 2021-12-04 00:17 | Emergency Department Note ---
HPI General Chief complaint: Blood Sugar Problem Stated complaint: b lood sugar reads HI Time Seen by Provider: 12/03/21 22:23 Source: EMS Mode of arrival: EMS Limitations: no limitations History of Present Illness HPI Narrative: Narrative: 76 yo F w/ h/o DM2, DELICIA, liver cirrhosis, p/w generalized weakness, elevated blood sugar. She reports one week of malaise, fatigue, slight shortness of breath, cough w/ productive sputum. Due to this she has been eating and drinking less and has stopped taking her insulin. She now presents feeling weak and noting elevated blood sugar. Related Data Home Medications Medication Instructions Recorded Confirmed insulin regular human 100 unit/mL See Rx Instructions .ROUTE .COMPLEX 09/18/17 12/04/21 injection solution (Novolin R Regular U-100 Insulin) vit C,L-Ts-qbsbqp-lutein-zeaxan 60 1 tab PO DAILY 02/25/18 12/04/21 mg-13.5 mg-15 mg-2 mg-6 mg capsule (Healthy Eyes Lutein-Zeaxanthin) losartan 50 mg tablet 50 mg PO QDAY 03/09/20 12/04/21 atorvastatin 40 mg tablet 40 mg PO QHS 06/01/21 12/04/21 levothyroxine 100 mcg tablet 125 mcg PO DAILY 06/01/21 12/04/21 cdxmoo-ayfxujig-reutjzv 40,000 cap PO TID 06/01/21 12/04/21 40,000-126,000-168,000 unit capsule, delay rel (Zenpep) Lactobacillus acidophilus 2 tab PO QDAY tab 07/15/21 12/04/21 (Acidophilus) cholecalciferol (vitamin D3) PO QDAY 07/15/21 08/22/21 docusate sodium [Stool Softener] 1 dose PO DAILY PRN 07/15/21 12/04/21 hyoscyamine sulfate 0.125 mg 0.125 mg PO Q6H PRN tab 07/15/21 12/04/21 sublingual tablet miconazole nitrate [Monistat 3] VAGINAL 07/15/21 08/22/21 multivit tko-pzha-OQ-herb 186 1 tab PO DAILY 07/15/21 12/04/21 [Hair, Skin and Nails Advanced] zinc 50 mg tablet 50 mg PO QDAY 07/15/21 12/04/21 trazodone 100 mg tablet 100 mg PO QDAY PRN 08/22/21 12/04/21 duloxetine 30 mg capsule,delayed 30 mg PO QDAY 09/20/21 12/04/21 release acyclovir 400 mg tablet 1 tab PO BID 09/21/21 12/04/21 gabapentin 800 mg tablet 1 tab PO QID 09/21/21 12/04/21 insulin aspart U-100 100 unit/mL sliding scale dose SUBCUT UD 09/21/21 (3 mL) subcutaneous pen (Novolog Flexpen U-100 Insulin aspart) Previous Rx's Medication Instructions Recorded insulin degludec 100 unit/mL 30 unit (0.3 mL) SUBCUT BID #1 ml 09/22/21 subcutaneous solution (Tresiba U-100 Insulin) Allergies Allergy/AdvReac Type Severity Reaction Status Date / Time cephalexin [From Keflex] Allergy Intermediate Swelling Verified 12/03/21 21:51 Anistreplase [From Eminase] Allergy Unknown UNKNOWN Verified 12/03/21 21:51 fenugreek Allergy Unknown UNKNOWN Verified 12/03/21 21:51 Sulfa (Sulfonamide Allergy Unknown UNKNOWN Verified 12/03/21 21:51 Antibiotics) codeine AdvReac Intermediate Itching Verified 12/03/21 21:51 Penicillins AdvReac Intermediate Rash Verified 12/03/21 21:51 promethazine AdvReac Intermediate Fainting Verified 12/03/21 21:51 Erythromycin Base AdvReac Mild Itching Verified 12/03/21 21:51 Nortriptyline AdvReac Mild Nausea Verified 12/03/21 21:51 trulicity Allergy Intermediate Unknown Uncoded 09/21/21 21:44 Review of Systems ROS ROS Narrative: Narrative: All systems ED: reviewed and negative except as stated. FOR[facility]LY [facility] Narrative Patient History Narrative: Narrative: Medical/Surgical/Family History All Active Problems (Updated 12/04/21 @ 05:40 by Geo Gonsalves MD) Generalized weakness (Acute) Acute dehydration (Acute) Diabetic ketosis (Acute) Acute dyspnea (Acute) Obstructive sleep apnea (Acute) DKA (diabetic ketoacidosis) (Acute) Vulvovaginitis due to yeast (Acute) Sleepwalking (Chronic) REM sleep behavior disorder (Chronic) Hypersomnia (Chronic) Snoring (Chronic) Tremor (Chronic) Neurofibromatosis 2 (Chronic) Trigger finger (Chronic) Sleep disturbance (Chronic) Arthralgia (Chronic) Pancreatitis (Chronic) Macular degeneration (Chronic) Hepatitis A (Chronic) Glaucoma (Chronic) Fibromyalgia (Chronic) DDD (degenerative disc disease), cervical (Chronic) Diabetic retinopathy (Chronic) Opioid dependence (Chronic) Stress (Chronic) Hard of hearing (Chronic) Multiple environmental allergies (Chronic) Fracture of lumbar spine (Chronic) Compression fracture of lumbosacral spine (Chronic) Abdominal pain (Chronic) Chronic pancreatitis (Chronic) Liver mass (Chronic) Cirrhosis of liver (Chronic) Constipation (Chronic) Neuropathy (Chronic) Chronic pain (Chronic) Essential tremor (Chronic) Bimalleolar ankle fracture (Chronic) Chronic bronchitis with acute exacerbation (Chronic) Dehydration (Chronic) Epistaxis (Chronic) Hypoxia (Chronic) Anterior epistaxis (Chronic) Candidiasis of mouth (Chronic) DKA (diabetic ketoacidosis) (Chronic) Conjunctivitis (Chronic) Bronchitis (Chronic) Dehiscence of closure of skin (Chronic) Anemia (Chronic) Elevated liver enzymes (Chronic) 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) Radiculopathy, sacral and sacrococcygeal region (Chronic) Radiculopathy, lumbosacral region (Chronic) Insomnia (Chronic) Levator syndrome (Chronic) Sacrococcygeal pain (Chronic) History of surgery (Chronic) Hypothyroidism (Chronic) Chronic bronchitis (Chronic) 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) Depression (Chronic) Anxiety (Chronic) Hypertension (Chronic) Osteoporosis (Chronic) Rectal pain (Chronic) Low back pain (Chronic) Pain in thoracic spine (Chronic) Age-related osteoporosis with current pathological fracture, vertebra(e), initial encounter for fracture (Chronic) Medical History Abdominal pain Acute exacerbation of chronic obstructive airways disease Age-related osteoporosis with current pathological fracture, vertebra(e), initial encounter for fracture Anemia Anterior epistaxis Anxiety Arthralgia Bilateral primary osteoarthritis of hip Bimalleolar ankle fracture Bronchitis Candidiasis of mouth Chronic bronchitis with acute exacerbation Chronic pain Chronic pancreatitis Cirrhosis of liver Compression fracture of lumbosacral spine Conjunctivitis Constipation DDD (degenerative disc disease), cervical Dehiscence of closure of skin Dehydration Depression Diabetic retinopathy DKA (diabetic ketoacidosis) Elevated liver enzymes Epistaxis Essential tremor Fibromyalgia Fracture of lumbar spine Glaucoma Hard of hearing Hepatitis A Hyperglycemia due to type 2 diabetes mellitus Hypersomnia Hypertension Hypothyroidism Hypoxia Insomnia Levator syndrome Lipomatosis Liver mass Low back pain Macular degeneration Multiple environmental allergies Neurofibromatosis 2 Neuropathy Obstructive sleep apnea Opioid dependence Osteoporosis Pain in thoracic spine Pancreatitis Radiculopathy, lumbosacral region Radiculopathy, sacral and sacrococcygeal region Rectal pain REM sleep behavior disorder Sacrococcygeal pain Sleep disturbance Sleepwalking Snoring Stress Tremor Trigger finger Surgical History History of appendectomy (~1969) History of arthroplasty of right ankle (~2017) History of cataract surgery (~2003) History of cholecystectomy History of colonoscopy (~06/26/18) History of decompression of median nerve (~2003) History of dilation and curettage History of eye surgery (~2005) Glaucoma History of hand surgery (~2003) Release of trigger finger, right History of left breast biopsy (~2005) History of oophorectomy History of surgery Vertebroplasty T12 w/sed 09/28/19 History of surgery retinopathy laser Stereotactic destruction of lesion using gamma radiation-2004 History of surgery on wrist History of tonsillectomy and adenoidectomy (~1969) Family History Mother Heart disease Fibromyalgia Father Malignant melanoma Malignant tumor of prostate Leukemia Social History Smoking Status: Never smoker Alcohol Intake Frequency: does not drink Exam Narrative Narrative: Narrative: General Limitations: no limitations General appearance: Present alert and in no apparent distress Head Head: Present atraumatic and normocephalic ENT ENT: Present normal oropharynx and mucous membranes dry Chest Chest: Present normal inspection and symmetric chest wall rise Respiratory Respiratory: Present normal lung sounds bilaterally; Absent accessory muscle use or decreased breath sounds Cardiovascular Cardiovascular: Present regular rate, normal rhythm, +S1, +S2 and other (2+ B/L radial pulses); Absent systolic murmur or diastolic murmur Adbominal Abdominal: Present soft and normal bowel sounds; Absent distention or tenderness Extremities Extremities: Absent pedal edema Neurological Neurological: Present alert and oriented X3 Psychiatric Psychiatric: Present normal affect Skin Skin: Present warm (WNL) and dry Course Vital Signs Vital signs: Vital Signs Temperature 97.6 F 12/03/21 21:51 Pulse Rate 100 H 12/03/21 21:51 Respiratory Rate 20 12/03/21 21:51 Blood Pressure 123/100 12/03/21 21:51 Pulse Oximetry (%) 100 12/03/21 21:51 Temperature 97.6 F 12/03/21 21:51 Pulse Rate 76 12/04/21 05:06 Respiratory Rate 20 12/03/21 21:51 Blood Pressure 133/54 12/04/21 03:16 Pulse Oximetry (%) 100 12/04/21 05:06 MDM MDM Narrative Medical decision making narrative: 76 yo F w/ h/o DM2, DELICIA, liver cirrhosis, p/w generalized weakness, elevated blood sugar. DDx - sepsis, viral syndrome, PNA, PE, ACS, metabolic/electrolyte d/o Pt presented clinically stable, in NAD. She was not clinically septic and ultimately I did not find evidence of a bacterial process. Her COVID swab was negative, CXR showed no PNA. She reported SOB but clinically PE and ACS were unlikely. EKG showed no ischemia and POC troponin was negative. She did have clear evidence of diabetic ketosis. Her BS was 697 w/ CO2 9 and ketones 10. Suprisingly pH was 7.46 on VBG. While this might not be true DKA, it is clearly more than can be turned around in the ED. I started her on IVF, IV insulin, and admitted her to the hospitalist. Lab Data Lab results reviewed: Yes I reviewed the patient's lab results. Result diagrams: 12/03/21 22:06 Labs: Lab Results 12/03/21 12/03/21 12/03/21 Range/Units 00:16 22:06 22:06 WBC 9.1 (4.5-11.0) K/mcL RBC 4.76 (3.59-5.38) M/mcL Hgb 14.8 (11.2-15.7) g/dL Hct 44.2 (34.1-44.9) % POC Hct 46 (36-48) % MCV 92.9 (80.0-100.0) fL MCH 31.1 (26.0-34.0) pg MCHC 33.5 (31.0-36.0) g/dL RDW 14.6 H (11.5-14.5) % Plt Count 201 (140-440) K/mcL MPV 11.3 H (7.4-10.4) fL Seg Neutrophils % 57 (38-78) % Lymphocytes % 37 (15-49) % Monocytes % (Manual) 5 (1-12) % Basophils % (Manual) 1 (0-2) % Platelet Estimate Normal (Normal) RBC Morphology Abnormal A (Normal) Anisocytosis 1+ A (None Seen) ABG Methemoglobin (0.4-1.5) % VBG pH (7.32-7.42) U VBG pCO2 (41.0-51.0) mmHg VBG pO2 (25.0-40.0) mmHg VBG HCO3 (24.0-28.0) mmol/L VBG Total CO2 (25.0-29.0) mmol/L VBG O2 Saturation (40.0-70.0) % VBG Base Excess (-2-3) Carboxyhemoglobin (0.0-1.5) % THgb Total Hemoglobin (12.0-15.0) gm/Dl POC Sodium 127 L (133-145) mEq/L POC Potassium 4.8 (3.3-5.1) mEql/L POC Chloride 100 (96-108) mEq/L POC Total CO2 9 L* (22-30) mmol/L POC BUN 18 (6-20) mg/dL POC Creatinine 1.0 (0.6-1.2) mg/dL POC Glucose 697 H* (70-105) mg/dL POC WB Ioniz Calcium 1.16 (1.16-1.32) mmEq/L Phosphorus (2.5-4.5) mg/dL Magnesium (1.6-2.5) mg/dL Beta-Hydroxybutyrate (<0.27) mmol/L Urine Color Urine Appearance (Clear) Urine pH (5.0-9.0) Ur Specific Gibson (1.000-1.035) Urine Protein (Negative) mg/dL Urine Glucose (UA) (Negative) mg/dL Urine Ketones (Negative) mg/dL Urine Occult Blood (Negative) vicki/mcL Urine Nitrate (Negative) Urine Bilirubin (Negative) mg/dL Urine Urobilinogen mg/dL Ur Leukocyte Esterase (Negative) /uL Urine RBC (0-3) /hpf Urine WBC (0-4) /hpf Ur Squamous Epith Cells (0-4) /hpf Urine Bacteria (0) /hpf Hyaline Casts (0-2) /lph Urine Mucus (None) /hpf Urine Yeast (Budding) (None) /hpf Ur Culture Indicated? POC Troponin I 0.02 (0.02-0.08) ng/mL 12/03/21 12/03/21 12/04/21 Range/Units 22:06 23:20 01:35 WBC (4.5-11.0) K/mcL RBC (3.59-5.38) M/mcL Hgb (11.2-15.7) g/dL Hct (34.1-44.9) % POC Hct 42 (36-48) % MCV (80.0-100.0) fL MCH (26.0-34.0) pg MCHC (31.0-36.0) g/dL RDW (11.5-14.5) % Plt Count (140-440) K/mcL MPV (7.4-10.4) fL Seg Neutrophils % (38-78) % Lymphocytes % (15-49) % Monocytes % (Manual) (1-12) % Basophils % (Manual) (0-2) % Platelet Estimate (Normal) RBC Morphology (Normal) Anisocytosis (None Seen) ABG Methemoglobin 0.3 L (0.4-1.5) % VBG pH 7.46 H (7.32-7.42) U VBG pCO2 34.9 L (41.0-51.0) mmHg VBG pO2 149.7 H (25.0-40.0) mmHg VBG HCO3 24.5 (24.0-28.0) mmol/L VBG Total CO2 25.6 (25.0-29.0) mmol/L VBG O2 Saturation 89.3 H (40.0-70.0) % VBG Base Excess 1 (-2-3) Carboxyhemoglobin 9.2 H (0.0-1.5) % THgb Total Hemoglobin 12.0 (12.0-15.0) gm/Dl POC Sodium 134 (133-145) mEq/L POC Potassium 4.1 (3.3-5.1) mEql/L POC Chloride 107 (96-108) mEq/L POC Total CO2 9 L* (22-30) mmol/L POC BUN 16 (6-20) mg/dL POC Creatinine 0.9 (0.6-1.2) mg/dL POC Glucose 453 H* (70-105) mg/dL POC WB Ioniz Calcium 1.21 (1.16-1.32) mmEq/L Phosphorus 4.0 (2.5-4.5) mg/dL Magnesium 2.1 (1.6-2.5) mg/dL Beta-Hydroxybutyrate 10.86 H (<0.27) mmol/L Urine Color Urine Appearance (Clear) Urine pH (5.0-9.0) Ur Specific Gibson (1.000-1.035) Urine Protein (Negative) mg/dL Urine Glucose (UA) (Negative) mg/dL Urine Ketones (Negative) mg/dL Urine Occult Blood (Negative) vicki/mcL Urine Nitrate (Negative) Urine Bilirubin (Negative) mg/dL Urine Urobilinogen mg/dL Ur Leukocyte Esterase (Negative) /uL Urine RBC (0-3) /hpf Urine WBC (0-4) /hpf Ur Squamous Epith Cells (0-4) /hpf Urine Bacteria (0) /hpf Hyaline Casts (0-2) /lph Urine Mucus (None) /hpf Urine Yeast (Budding) (None) /hpf Ur Culture Indicated? POC Troponin I (0.02-0.08) ng/mL 12/04/21 Range/Units 03:46 WBC (4.5-11.0) K/mcL RBC (3.59-5.38) M/mcL Hgb (11.2-15.7) g/dL Hct (34.1-44.9) % POC Hct (36-48) % MCV (80.0-100.0) fL MCH (26.0-34.0) pg MCHC (31.0-36.0) g/dL RDW (11.5-14.5) % Plt Count (140-440) K/mcL MPV (7.4-10.4) fL Seg Neutrophils % (38-78) % Lymphocytes % (15-49) % Monocytes % (Manual) (1-12) % Basophils % (Manual) (0-2) % Platelet Estimate (Normal) RBC Morphology (Normal) Anisocytosis (None Seen) ABG Methemoglobin (0.4-1.5) % VBG pH (7.32-7.42) U VBG pCO2 (41.0-51.0) mmHg VBG pO2 (25.0-40.0) mmHg VBG HCO3 (24.0-28.0) mmol/L VBG Total CO2 (25.0-29.0) mmol/L VBG O2 Saturation (40.0-70.0) % VBG Base Excess (-2-3) Carboxyhemoglobin (0.0-1.5) % THgb Total Hemoglobin (12.0-15.0) gm/Dl POC Sodium (133-145) mEq/L POC Potassium (3.3-5.1) mEql/L POC Chloride (96-108) mEq/L POC Total CO2 (22-30) mmol/L POC BUN (6-20) mg/dL POC Creatinine (0.6-1.2) mg/dL POC Glucose (70-105) mg/dL POC WB Ioniz Calcium (1.16-1.32) mmEq/L Phosphorus (2.5-4.5) mg/dL Magnesium (1.6-2.5) mg/dL Beta-Hydroxybutyrate (<0.27) mmol/L Urine Color Yellow Urine Appearance Clear (Clear) Urine pH 5.0 (5.0-9.0) Ur Specific Gibson 1.020 (1.000-1.035) Urine Protein Negative (Negative) mg/dL Urine Glucose (UA) 500 mg/dl A (Negative) mg/dL Urine Ketones >=160 mg/dl A (Negative) mg/dL Urine Occult Blood Small A (Negative) vicki/mcL Urine Nitrate Negative (Negative) Urine Bilirubin Negative (Negative) mg/dL Urine Urobilinogen Normal mg/dL Ur Leukocyte Esterase Negative (Negative) /uL Urine RBC 1 (0-3) /hpf Urine WBC 11 H (0-4) /hpf Ur Squamous Epith Cells 0 (0-4) /hpf Urine Bacteria None (0) /hpf Hyaline Casts 1 (0-2) /lph Urine Mucus Few A (None) /hpf Urine Yeast (Budding) Few A (None) /hpf Ur Culture Indicated? yes POC Troponin I (0.02-0.08) ng/mL ED POC Tests ED POC Tests: SHAHID - SARS Antigen Negative EKG Data EKG #1: EKG attestation: Yes I reviewed and interpreted this EKG. and Yes There are no EKG findings of acute coronary syndrome EKG results narrative: Sinus rate of 86 Normal SD, QRS, QT interval. QTc 524. No STEMI, DeWinters, Brugada, Wellens. Similar to previous EKG. Discharge Plan Patient/Caregiver Discharge Instructions Pt seen by FLEET MANAGER/PA only: No Clinical Impression: Generalized weakness, Acute dehydration, Diabetic ketosis, Acute dyspnea Patient Disposition: Xfer As Inpt ([facility]) Condition: Serious Discharge Date/Time: 12/04/21 05:23
[2021-12-04] MEDS ORDERED: 0.9 % SODIUM CHLORIDE 1,000 ML IV ONE (01:13)
[2021-12-04 01:49] LABS: POC Blood Urea Nitrogen 16 mg/dL (6-20); POC CO2 9 mmol/L (22-30); POC Calcium, Ionized 1.21 mmEq/L (1.16-1.32); POC Chloride 107 mEq/L (96-108); POC Creatinine 0.9 mg/dL (0.6-1.2); POC Glucose, Random 453 mg/dL (70-105); POC Hematocrit 42 % (36-48); POC Potassium 4.1 mEql/L (3.3-5.1); POC Sodium 134 mEq/L (133-145)
[2021-12-04 04:28] LABS: Appearance,Urine Clear (Clear); Bilirubin,Urine Negative (Negative); Color,Urine Yellow; Culture Indicated,Urine yes; Ketones,Urine >=160 mg/dL mg/dL (Negative); Leukocyte Esterase,Urine Negative /uL (Negative); Mucus,Urine FEW /hpf; Nitrate,Urine Negative (Negative); Protein,Urine Negative (Negative); Urine Blood Small ery/mcL (Negative); Urine Budding Yeast FEW /hpf; Urine Hyaline Cast 1 /lph (0-2); Urine RBC 1 /hpf (0-3); Urine Squamous Epithelial Cell 0 /hpf (0-4); Urine WBC 11 /hpf (0-4); Urobilinogen,Urine Normal
[2021-12-04] MEDS ORDERED: ACETAMINOPHEN 325 MG TABLET PO ONE (04:28)
--- NOTE | 2021-12-04 04:58 | Internal Med History&Physical ---
HPI History of Present Illness Patient information: Note initiated : 12/04/21 at 4:54 am Service Date, if different from initiated Date: [] Patient: Tennille Castillo 76 y/o F admitted on for b lood sugar [facility]. Chief Complaint: [] Chief complaint: weakness, abdominal pain, decreased food intake, nausea History of present illness: Ms. Castillo is a 76 year old F past medical history of type 2 diabetes mellitus, depression with anxiety, chronic pancreatitis, hypothyroidism, essential HTN, presenting with 1 week history of general body weakness, abdominal pain, decreased food intake, and nausea. Last prior episode of DKA was about a year ago. Over the past week, patient has experienced gradual onset, gradually worsening nature of general body weakness, abdominal pain mostly in the left upper and lower quadrants, 10 out of 10 in severity, aching, constant, as well as decreased food intake and nausea without vomiting. As a result, patient has not been compliant with her insulin regimen which comprise of Tresiba 30 units twice daily as well as sliding scale insulin. Initial lab works in the ED significant for glucose of 697, serum bicarb of 9, anion gap of 18, and beta hydroxybutyrate of 10.86, suggestive of another episode of diabetic ketoacidosis. Constitutional Constitutional: Present headache(s) and weakness; Absent chills, excessive s weating, fatigue or fever(s) Additional comments: decreased appetite EENT Eyes: Absent blurry vision, change in vision, loss of vision or other visual disturbances Ears: Absent decreased hearing or tinnitus Nose, mouth and throat: Absent abnormal hearing, dry mouth, headache(s), nasal congestion or sore throat Cardiovascular Cardiovascular: Absent chest pain, chest pain at rest, edema, irregular heart rhythm or palpatations Respiratory Respiratory: Absent cough, dyspnea or wheezing Gastrointestinal Gastrointestinal: Present abdominal pain and nausea; Absent constipation, diarrhea or vomiting Additional comments: decreased appetite Musculoskeletal Musculoskeletal: Absent back pain, deformity, limited range of motion, muscle cramps, muscle weakness or numbness Integumentary Integumentary: Absent lesions, rash or wounds Neurological Neurological: Absent focal weakness, headache(s) or numbness Psychiatric Psychiatric: Absent anxiety, depression or hallucinations PFSH PFSH All Active Problems Obstructive sleep apnea (Acute) DKA (diabetic ketoacidosis) (Acute) Vulvovaginitis due to yeast (Acute) Sleepwalking (Chronic) REM sleep behavior disorder (Chronic) Hypersomnia (Chronic) Snoring (Chronic) Tremor (Chronic) Neurofibromatosis 2 (Chronic) Trigger finger (Chronic) Sleep disturbance (Chronic) Arthralgia (Chronic) Pancreatitis (Chronic) Macular degeneration (Chronic) Hepatitis A (Chronic) Glaucoma (Chronic) Fibromyalgia (Chronic) DDD (degenerative disc disease), cervical (Chronic) Diabetic retinopathy (Chronic) Opioid dependence (Chronic) Stress (Chronic) Hard of hearing (Chronic) Multiple environmental allergies (Chronic) Fracture of lumbar spine (Chronic) Compression fracture of lumbosacral spine (Chronic) Abdominal pain (Chronic) Chronic pancreatitis (Chronic) Liver mass (Chronic) Cirrhosis of liver (Chronic) Constipation (Chronic) Neuropathy (Chronic) Chronic pain (Chronic) Essential tremor (Chronic) Bimalleolar ankle fracture (Chronic) Chronic bronchitis with acute exacerbation (Chronic) Dehydration (Chronic) Epistaxis (Chronic) Hypoxia (Chronic) Anterior epistaxis (Chronic) Candidiasis of mouth (Chronic) DKA (diabetic ketoacidosis) (Chronic) Conjunctivitis (Chronic) Bronchitis (Chronic) Dehiscence of closure of skin (Chronic) Anemia (Chronic) Elevated liver enzymes (Chronic) 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) Radiculopathy, sacral and sacrococcygeal region (Chronic) Radiculopathy, lumbosacral region (Chronic) Insomnia (Chronic) Levator syndrome (Chronic) Sacrococcygeal pain (Chronic) History of surgery (Chronic) Hypothyroidism (Chronic) Chronic bronchitis (Chronic) 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) Depression (Chronic) Anxiety (Chronic) Hypertension (Chronic) Osteoporosis (Chronic) Rectal pain (Chronic) Low back pain (Chronic) Pain in thoracic spine (Chronic) Age-related osteoporosis with current pathological fracture, vertebra(e), initial encounter for fracture (Chronic) Medical History Abdominal pain Acute exacerbation of chronic obstructive airways disease Age-related osteoporosis with current pathological fracture, vertebra(e), initial encounter for fracture Anemia Anterior epistaxis Anxiety Arthralgia Bilateral primary osteoarthritis of hip Bimalleolar ankle fracture Bronchitis Candidiasis of mouth Chronic bronchitis with acute exacerbation Chronic pain Chronic pancreatitis Cirrhosis of liver Compression fracture of lumbosacral spine Conjunctivitis Constipation DDD (degenerative disc disease), cervical Dehiscence of closure of skin Dehydration Depression Diabetic retinopathy DKA (diabetic ketoacidosis) Elevated liver enzymes Epistaxis Essential tremor Fibromyalgia Fracture of lumbar spine Glaucoma Hard of hearing Hepatitis A Hyperglycemia due to type 2 diabetes mellitus Hypersomnia Hypertension Hypothyroidism Hypoxia Insomnia Levator syndrome Lipomatosis Liver mass Low back pain Macular degeneration Multiple environmental allergies Neurofibromatosis 2 Neuropathy Obstructive sleep apnea Opioid dependence Osteoporosis Pain in thoracic spine Pancreatitis Radiculopathy, lumbosacral region Radiculopathy, sacral and sacrococcygeal region Rectal pain REM sleep behavior disorder Sacrococcygeal pain Sleep disturbance Sleepwalking Snoring Stress Tremor Trigger finger Surgical History History of appendectomy (~1969) History of arthroplasty of right ankle (~2017) History of cataract surgery (~2003) History of cholecystectomy History of colonoscopy (~06/26/18) History of decompression of median nerve (~2003) History of dilation and curettage History of eye surgery (~2005) Glaucoma History of hand surgery (~2003) Release of trigger finger, right History of left breast biopsy (~2005) History of oophorectomy History of surgery Vertebroplasty T12 w/sed 09/28/19 History of surgery retinopathy laser Stereotactic destruction of lesion using gamma radiation-2004 History of surgery on wrist History of tonsillectomy and adenoidectomy (~1969) Family History Mother Heart disease Fibromyalgia Father Malignant melanoma Malignant tumor of prostate Leukemia Social History education level: college occupational status: retired smoking status: Never smoker alcohol intake frequency: does not drink MEDS/ALLERGIES Home Medications and Allergies Home Medications Medication Instructions Recorded Confirmed Type insulin regular human 100 unit/mL See Rx Instructions .ROUTE .COMPLEX 09/18/17 12/04/21 History injection solution (Novolin R Regular U-100 Insulin) vit C,V-Go-zkgeyo-lutein-zeaxan 60 1 tab PO DAILY 02/25/18 12/04/21 History mg-13.5 mg-15 mg-2 mg-6 mg capsule (Healthy Eyes Lutein-Zeaxanthin) losartan 50 mg tablet 50 mg PO QDAY 03/09/20 12/04/21 History atorvastatin 40 mg tablet 40 mg PO QHS 06/01/21 12/04/21 History levothyroxine 100 mcg tablet 125 mcg PO DAILY 06/01/21 12/04/21 History xjcvhw-gpovrknc-whnqfso 40,000 cap PO TID 06/01/21 12/04/21 History 40,000-126,000-168,000 unit capsule, delay rel (Zenpep) Lactobacillus acidophilus 2 tab PO QDAY tab 07/15/21 12/04/21 History (Acidophilus) cholecalciferol (vitamin D3) PO QDAY 07/15/21 08/22/21 History docusate sodium [Stool Softener] 1 dose PO DAILY PRN 07/15/21 12/04/21 History hyoscyamine sulfate 0.125 mg 0.125 mg PO Q6H PRN tab 07/15/21 12/04/21 History sublingual tablet miconazole nitrate [Monistat 3] VAGINAL 07/15/21 08/22/21 History multivit fsl-eumu-BL-herb 186 1 tab PO DAILY 07/15/21 12/04/21 History [Hair, Skin and Nails Advanced] zinc 50 mg tablet 50 mg PO QDAY 07/15/21 12/04/21 History trazodone 100 mg tablet 100 mg PO QDAY PRN 08/22/21 12/04/21 History duloxetine 30 mg capsule,delayed 30 mg PO QDAY 09/20/21 12/04/21 History release acyclovir 400 mg tablet 1 tab PO BID 09/21/21 12/04/21 History gabapentin 800 mg tablet 1 tab PO QID 09/21/21 12/04/21 History insulin aspart U-100 100 unit/mL sliding scale dose SUBCUT UD 09/21/21 History (3 mL) subcutaneous pen (Novolog Flexpen U-100 Insulin aspart) insulin degludec 100 unit/mL 30 unit (0.3 mL) SUBCUT BID #1 ml 09/22/21 12/04/21 Rx subcutaneous solution (Tresiba U-100 Insulin) Allergies Allergy/AdvReac Type Severity Reaction Status Date / Time cephalexin [From Keflex] Allergy Intermediate Swelling Verified 12/03/21 21:51 Anistreplase [From Eminase] Allergy Unknown UNKNOWN Verified 12/03/21 21:51 fenugreek Allergy Unknown UNKNOWN Verified 12/03/21 21:51 Sulfa (Sulfonamide Allergy Unknown UNKNOWN Verified 12/03/21 21:51 Antibiotics) codeine AdvReac Intermediate Itching Verified 12/03/21 21:51 Penicillins AdvReac Intermediate Rash Verified 12/03/21 21:51 promethazine AdvReac Intermediate Fainting Verified 12/03/21 21:51 Erythromycin Base AdvReac Mild Itching Verified 12/03/21 21:51 Nortriptyline AdvReac Mild Nausea Verified 12/03/21 21:51 trulicity Allergy Intermediate Unknown Uncoded 09/21/21 21:44 EXAM Constitutional Vitals: Temp Pulse Resp BP Pulse Ox 36.4 C 72 20 133/54 100 12/03/21 21:51 12/04/21 03:25 12/03/21 21:51 12/04/21 03:16 12/04/21 03:25 General appearance: cooperative, mild distress and no acute distress Head Head exam: Present atraumatic and normocephalic Eye Eye exam: Present EOMI and PERRL ENT ENT exam: Present mucous membranes moist, normal exam and normal external ear exam Neck Neck exam: Present normal inspection; Absent lymphadenopathy, tenderness or thyromegaly Respiratory Respiratory exam: Absent accessory muscle use, respiratory distress or wheezes Cardiovascular Cardiovascular exam: Present normal rate and rhythm; Absent JVD GI/Abdominal GI/Abdominal exam: Present normal bowel sounds, soft and tenderness; Absent organomegaly Extremities Exam Extremities exam: Present full ROM, normal capillary refill and normal inspection; Absent tenderness Neurological Exam Neurological exam: Present alert, CN II-XII intact and oriented X3; Absent motor sensory deficit Psychiatric Psychiatric exam: Present normal affect and normal mood; Absent anxious or depressed Skin Skin exam: Present dry and intact DATA Data Completed and Pending Labs: Labs from last 24 hours 12/04/21 12/04/21 12/03/21 03:46 01:35 23:20 WBC RBC Hgb Hct POC Hct 42 MCV MCH MCHC RDW Plt Count MPV Seg Neutrophils % Lymphocytes % Monocytes % (Manual) Basophils % (Manual) Platelet Estimate RBC Morphology Anisocytosis ABG Methemoglobin 0.3 L VBG pH 7.46 H VBG pCO2 34.9 L VBG pO2 149.7 H VBG HCO3 24.5 VBG Total CO2 25.6 VBG O2 Saturation 89.3 H VBG Base Excess 1 Carboxyhemoglobin 9.2 H Total Hemoglobin 12.0 POC Sodium 134 POC Potassium 4.1 POC Chloride 107 POC Total CO2 9 L* POC BUN 16 POC Creatinine 0.9 POC Glucose 453 H* POC WB Ioniz Calcium 1.21 Phosphorus Magnesium Beta-Hydroxybutyrate Urine Color Yellow Urine Appearance Clear Urine pH 5.0 Ur Specific [place] 1.020 Urine Protein Negative Urine Glucose (UA) 500 mg/dl A Urine Ketones >=160 mg/dl A Urine Occult Blood Small A Urine Nitrate Negative Urine Bilirubin Negative Urine Urobilinogen Normal Ur Leukocyte Esterase Negative Urine RBC 1 Urine WBC 11 H Ur Squamous Epith Cells 0 Urine Bacteria None Hyaline Casts 1 Urine Mucus Few A Urine Yeast (Budding) Few A Ur Culture Indicated? yes POC Troponin I 12/03/21 12/03/21 12/03/21 22:06 22:06 22:06 WBC 9.1 RBC 4.76 Hgb 14.8 Hct 44.2 POC Hct 46 MCV 92.9 MCH 31.1 MCHC 33.5 RDW 14.6 H Plt Count 201 MPV 11.3 H Seg Neutrophils % 57 Lymphocytes % 37 Monocytes % (Manual) 5 Basophils % (Manual) 1 Platelet Estimate Normal RBC Morphology Abnormal A Anisocytosis 1+ A ABG Methemoglobin VBG pH VBG pCO2 VBG pO2 VBG HCO3 VBG Total CO2 VBG O2 Saturation VBG Base Excess Carboxyhemoglobin Total Hemoglobin POC Sodium 127 L POC Potassium 4.8 POC Chloride 100 POC Total CO2 9 L* POC BUN 18 POC Creatinine 1.0 POC Glucose 697 H* POC WB Ioniz Calcium 1.16 Phosphorus 4.0 Magnesium 2.1 Beta-Hydroxybutyrate 10.86 H Urine Color Urine Appearance Urine pH Ur Specific [place] Urine Protein Urine Glucose (UA) Urine Ketones Urine Occult Blood Urine Nitrate Urine Bilirubin Urine Urobilinogen Ur Leukocyte Esterase Urine RBC Urine WBC Ur Squamous Epith Cells Urine Bacteria Hyaline Casts Urine Mucus Urine Yeast (Budding) Ur Culture Indicated? POC Troponin I 12/03/21 00:16 WBC RBC Hgb Hct POC Hct MCV MCH MCHC RDW Plt Count MPV Seg Neutrophils % Lymphocytes % Monocytes % (Manual) Basophils % (Manual) Platelet Estimate RBC Morphology Anisocytosis ABG Methemoglobin VBG pH VBG pCO2 VBG pO2 VBG HCO3 VBG Total CO2 VBG O2 Saturation VBG Base Excess Carboxyhemoglobin Total Hemoglobin POC Sodium POC Potassium POC Chloride POC Total CO2 POC BUN POC Creatinine POC Glucose POC WB Ioniz Calcium Phosphorus Magnesium Beta-Hydroxybutyrate Urine Color Urine Appearance Urine pH Ur Specific [place] Urine Protein Urine Glucose (UA) Urine Ketones Urine Occult Blood Urine Nitrate Urine Bilirubin Urine Urobilinogen Ur Leukocyte Esterase Urine RBC Urine WBC Ur Squamous Epith Cells Urine Bacteria Hyaline Casts Urine Mucus Urine Yeast (Budding) Ur Culture Indicated? POC Troponin I 0.02 A/P Assessment and plan (1) DKA (diabetic ketoacidosis): Status: Acute (2) Hypothyroidism: Status: Chronic (3) Depression: Status: Chronic (4) Anxiety: Status: Chronic (5) Hypertension: Status: Chronic (6) Chronic pancreatitis: Status: Chronic Narrative A/P Narrative: Assessment and Plans: 1. 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 Essential HTN: Currently normotensive Losartan 3. Hypothyroidism: Continue thyroid replacement therapy 4. Depression with anxiety: Cymbalta 5. Chronic pancreatitis: Lipase level Probiotics Zenpep GI ppx: not currently indicated DVT ppx: Lovenox Code status: Full Prognosis: guarded Disposition: inpatient ICU Critical Care Time: 1hr Time Spent With Patient Time: Total time spent is greater than 50% in coordination of care (as documented) at patient's floor/unit and/or counseling patient: Total time spent with greater than 50% in coordination of care (as documented) at patient's floor/unit and/or counseling patient:: 50 - 70 minutes Critical Care Time: Yes Total Critical Care Time: 60
[2021-12-04] MEDS ORDERED: INSULIN REGULAR, HUMAN 1 UNIT/0.01 ML UNIT ONE (05:10)
[2021-12-04] MEDS ORDERED: POTASSIUM CHLORIDE 20 MEQ in DEXTROSE 5% IN WATER 250 ML IV PRN (05:39)
[2021-12-04] MEDS ORDERED: INSULIN REGULAR, HUMAN 50 UNIT in 0.9 % SODIUM CHLORIDE 99.5 ML IV SCH ×2 (05:39→17:00)
[2021-12-04] MEDS ORDERED: MAGNESIUM SULFATE 2 GM/50 ML BAG IV PRN (05:39)
[2021-12-04] MEDS ORDERED: IPRATROPIUM/ALBUTEROL 3 ML AMPUL.NEB NEB PRN (05:39)
[2021-12-04] MEDS ORDERED: ONDANSETRON 4 MG/2 ML VIAL IV PRN (05:39)
[2021-12-04] MEDS: NACL 0.9% W/KCL 20MEQ 1,000 ML IV SCH ×3 (05:53→16:08)
[2021-12-04] MEDS: DEXTROSE 5%-1/2NS W/20MEQ KCL 1,000 ML IV SCH ×7 (05:54→19:28)
[2021-12-04] MEDS: 0.9 % SODIUM CHLORIDE 10 ML SYRINGE IV SCH ×3 (06:06→20:52)
[2021-12-04 06:57] LABS: Estimated Average Glucose(eAG) 324 mg/dL; Hemoglobin A1C 12.9 % Hgb (4.0-6.0)
[2021-12-04] MEDS ORDERED: INSULIN REGULAR, HUMAN 1 UNIT/0.01 ML UNIT IV ONE ×2 (07:01→07:56)
[2021-12-04] MEDS: LEVOTHYROXINE 125 MCG TABLET PO SCH (07:04)
[2021-12-04] MEDS: METOCLOPRAMIDE 10 MG/2 ML VIAL IV SCH ×3 (07:05→17:41)
[2021-12-04 07:09] LABS: Blood Urea Nitrogen 14 mg/dL (8-23); Calcium 8.2 mg/dL (8.6-10.4); Carbon Dioxide 6 mmol/L (22-30); Chloride 91 mmol/L (96-108); Glomerular Filtration Rate 40; Glucose 487 mg/dL (70-105)
[2021-12-04] MEDS ORDERED: SENNOSIDES 1 TABLET PO PRN (07:58)
--- NOTE | 2021-12-04 08:39 | XRay Report ---
HISTORY: Chest pain FINDINGS: The lungs are clear and normally expanded. The heart size, mediastinum, leroy and pleura are normal. Comparison with the prior exam from 09/20/21 shows no change. Mild calcific tendinitis is present in both shoulders. IMPRESSION: Normal exam Interpreted and Authenticated by: Allan Lawler 12/04/21
[2021-12-04] MEDS: LOSARTAN 50 MG TABLET PO SCH (09:52)
[2021-12-04] MEDS: ENOXAPARIN 40 MG/0.4 ML SYRINGE SQ SCH (09:52)
[2021-12-04] MEDS: DOCUSATE SODIUM 100 MG CAPSULE PO SCH ×2 (09:52→19:59)
[2021-12-04] MEDS: MULTIVIT,THER IRON,CA,FA & MIN 1 TABLET PO SCH (09:52)
[2021-12-04] MEDS: ZINC SULFATE 50 MG CAPSULE PO SCH (09:52)
[2021-12-04] MEDS: GABAPENTIN 400 MG CAPSULE PO SCH ×4 (10:05→19:59)
[2021-12-04] MEDS: LACTOBACILLUS 1 CAPSULE PO SCH (10:06)
[2021-12-04] MEDS: VIT A,C & E/LUTEIN/MINERALS TABLET PO SCH (10:06)
[2021-12-04] MEDS: DULoxetine 30 MG CAPSULE PO SCH (10:06)
[2021-12-04] MEDS: ACYCLOVIR 400 MG TABLET PO SCH ×2 (10:06→19:59)
[2021-12-04] MEDS: LIPASE PROTEASE AMYLASE PO SCH ×3 (10:13→19:56)
[2021-12-04] MEDS: ACETAMINOPHEN 325 MG TABLET PO PRN (12:15)
--- NOTE | 2021-12-04 13:36 | EKG ---
[facility] Test Date: 2021-12-03 Pat Name: Tennille Castillo Department: ED Room: Gender: Female [place] C[place]: ROSY : 1945 Requested By: Geo Gonaslves Order Number: [id number] Reading MD: Shahram Garces D.O. Measurements Intervals [place] Rate: 86 P: 67 MT: 163 QRS: 47 QRSD: 96 T: 66 QT: 438 QTc: 524 Interpretive Statements Sinus rhythm Prolonged QT interval Electronically Signed On 12-04-2021 13:36:49 PDT by Shahram Garces D.O. /store/[id number]
[2021-12-04 16:57] LABS: Blood Urea Nitrogen 11 mg/dL (8-23); Calcium 7.6 mg/dL (8.6-10.4); Carbon Dioxide 13 mmol/L (22-30); Chloride 105 mmol/L (96-108); Glomerular Filtration Rate 55; Glucose 175 mg/dL (70-105)
[2021-12-04] MEDS: INSULIN REGULAR, HUMAN 50 UNIT in 0.9 % SODIUM CHLORIDE 99.5 ML IV SCH (17:26)
[2021-12-04 18:56] LABS: Blood Urea Nitrogen 10 mg/dL (8-23); Calcium 7.8 mg/dL (8.6-10.4); Carbon Dioxide 15 mmol/L (22-30); Chloride 106 mmol/L (96-108); Glomerular Filtration Rate 62; Glucose 173 mg/dL (70-105)
[2021-12-04] MEDS ORDERED: DEXTROSE 50% 50 ML VIAL IV PRN (19:10)
[2021-12-04] MEDS ORDERED: DEXTROSE 31 GM ORAL.SUSP PO PRN (19:10)
[2021-12-04] MEDS: INSULIN GLARGINE, HUMAN 1 UNIT/0.01 ML SQ SCH ×2 (19:51→20:24)
[2021-12-04] MEDS ORDERED: INSULIN GLARGINE, HUMAN 1 UNIT/0.01 ML SQ ONE (19:53)
[2021-12-04] MEDS: oxyCODONE HCL 5 MG TABLET PO PRN (19:53)
[2021-12-04] MEDS: ATORVASTATIN 40 MG TABLET PO SCH (19:59)
[2021-12-04] MEDS: INSULIN LISPRO 1 UNIT/0.01 ML UNIT SQ SCH (20:52)
[2021-12-05] MEDS: DEXTROSE 5%-1/2NS W/20MEQ KCL 1,000 ML IV SCH ×3 (00:50→05:24)
[2021-12-05] MEDS: METOCLOPRAMIDE 10 MG/2 ML VIAL IV SCH ×2 (01:30→05:44)
[2021-12-05] MEDS: oxyCODONE HCL 5 MG TABLET PO PRN ×3 (03:46→20:44)
[2021-12-05] MEDS: INSULIN REGULAR, HUMAN 50 UNIT in 0.9 % SODIUM CHLORIDE 99.5 ML IV SCH (05:23)
[2021-12-05] MEDS: 0.9 % SODIUM CHLORIDE 10 ML SYRINGE IV SCH ×3 (05:44→20:46)
[2021-12-05 07:04] LABS: Basophils # (Auto) 0.04 K/mcL (0.00-0.30); Basophils % (Auto) 0.7 % (0.0-2.0); Eosinophils # (Auto) 0.16 K/mcL (0.00-0.70); Eosinophils % (Auto) 2.7 % (0.0-7.0); Hematocrit 37.9 % (34.1-44.9); Hemoglobin 12.6 g/dL (11.2-15.7); Lymphocytes % (Auto) 43.3 % (15.5-49.0); Mean Cell Volume 90.7 fL (80.0-100.0); Mean Corpuscular HGB Conc 33.2 g/dL (31.0-36.0); Mean Platelet Volume 11.1 fL (7.4-10.4); Monocytes # (Auto) 0.26 K/mcL (0.10-0.90); Monocytes % (Auto) 4.3 % (1.0-12.0); Platelet Count 142 K/mcL (140-440); RBC 4.18 M/mcL (3.59-5.38); Red Cell Distribution Width 15.2 % (11.5-14.5)
[2021-12-05] MEDS: LEVOTHYROXINE 125 MCG TABLET PO SCH (07:08)
[2021-12-05] MEDS: INSULIN LISPRO 1 UNIT/0.01 ML UNIT SQ SCH ×5 (07:08→20:59)
[2021-12-05 07:28] LABS: ALT/SGPT 57 U/L (<40); AST/SGOT 158 U/L (<32); Albumin 3.3 gm/dL (3.2-5.2); Albumin/Globulin Ratio 1.5 (1.0-2.3); Alkaline Phosphatase 117 U/L (39-117); Bilirubin,Total 0.4 mg/dL (0.1-1.0); Blood Urea Nitrogen 8 mg/dL (8-23); Calcium 7.7 mg/dL (8.6-10.4); Carbon Dioxide 14 mmol/L (22-30); Chloride 105 mmol/L (96-108); Globulin 2.2 gm/dL (2.2-3.7); Glomerular Filtration Rate 71; Glucose 216 mg/dL (70-105)
[2021-12-05] MEDS: LIPASE PROTEASE AMYLASE PO SCH ×5 (08:58→20:46)
[2021-12-05] MEDS ORDERED: LEVOTHYROXINE 125 MCG TABLET PO SCH (09:00)
[2021-12-05] MEDS ORDERED: ZINC 50 MG PO SCH (09:00)
[2021-12-05] MEDS: LOSARTAN 50 MG TABLET PO SCH (09:13)
[2021-12-05] MEDS: ZINC SULFATE 50 MG CAPSULE PO SCH (09:14)
[2021-12-05] MEDS: ENOXAPARIN 40 MG/0.4 ML SYRINGE SQ SCH (09:14)
[2021-12-05] MEDS: INSULIN GLARGINE, HUMAN 1 UNIT/0.01 ML SQ SCH ×2 (09:14→20:45)
[2021-12-05] MEDS: VITAMIN D3 25 MCG TABLET PO SCH (09:14)
[2021-12-05] MEDS: MULTIVIT,THER IRON,CA,FA & MIN 1 TABLET PO SCH (09:14)
[2021-12-05] MEDS: VIT A,C & E/LUTEIN/MINERALS TABLET PO SCH (09:15)
[2021-12-05] MEDS: LACTOBACILLUS 1 CAPSULE PO SCH (09:15)
[2021-12-05] MEDS: DOCUSATE SODIUM 100 MG CAPSULE PO SCH ×2 (09:15→20:44)
[2021-12-05] MEDS: GABAPENTIN 400 MG CAPSULE PO SCH ×4 (09:15→20:44)
[2021-12-05] MEDS: ACYCLOVIR 400 MG TABLET PO SCH ×2 (09:15→20:44)
[2021-12-05] MEDS: DULoxetine 30 MG CAPSULE PO SCH (09:15)
[2021-12-05] MEDS: ACETAMINOPHEN 325 MG TABLET PO PRN ×2 (09:34→20:45)
[2021-12-05] MEDS ORDERED: METOCLOPRAMIDE 10 MG/2 ML VIAL IV PRN (11:14)
--- NOTE | 2021-12-05 11:20 | Internal Med Progress Note ---
SUBJECTIVE Subjective Patient information: Note initiated : 12/05/21 at 11:14 am Service Date, if different from initiated Date: [] Patient: Tennille Castillo a 76 y/o F admitted on 12/04/21 for Blood sugar reads HI. Chief Complaint: [] Interval history: Ms. Castillo is a 76 year old F past medical history of type 2 diabetes mellitus, depression with anxiety, chronic pancreatitis, hypothyroidism, essential HTN, presenting with 1 week history of general body weakness, abdominal pain, decreased food intake, and nausea. Last prior episode of DKA was about a year ago. Over the past week, patient has experienced gradual onset, gradually worsening nature of general body weakness, abdominal pain mostly in the left upper and lower quadrants, 10 out of 10 in severity, aching, constant, as well as decreased food intake and nausea without vomiting. As a result, patient has not been compliant with her insulin regimen which comprise of Tresiba 30 units twice daily as well as sliding scale insulin. Initial lab works in the ED significant for glucose of 697, serum bicarb of 9, anion gap of 18, and beta hydroxybutyrate of 10.86, suggestive of another episode of diabetic ketoacidosis. 12/05: Insulin drip was being switched off last evening. Fasting glucose level 214. Tolerating CC diet. Denies nausea or vomiting. Denies abdominal pain. Continue SQ insulin therapy. Transfer from ICU to med surg. Constitutional Vitals: Vital Signs Temp Pulse Resp BP Pulse Ox 36.7 C 77 10 L 142/49 95 12/05/21 08:00 12/05/21 10:01 12/05/21 10:01 12/05/21 10:01 12/05/21 10:01 Period Temp Pulse Resp BP Sys/Rosario Pulse Ox Last 24 Hr 36.0 C-36.8 C 66-86 7-26 112-151/46-95 93-100 Intake and Output 12/04/21 12/05/21 12/05/21 21:59 05:59 13:59 Intake Total 2772 180 0 Output Total 950 0 Balance 1822 180 0 Weight 73.085 kg Intake & Output: Intake & Output 12/04/21 12/05/21 12/05/21 21:59 05:59 13:59 Intake Total 2772 180 0 Output Total 950 0 Balance 1822 180 0 Weight 73.085 kg Intake: IV 2372 0 Dextrose 5%-1/2Ns W/20Meq KCl 1 2317 0 ,000 ml @ 250 mls/hr IV .Q4H [facility] Rx#:[id number] HumuLIN R 50 UNIT In Sodium 55 0 Chloride 0.9% 99.5 ml @ Per Protocol IV Q12H [facility] Rx#: [id number] Oral 400 180 Output: Void Amount 950 0 Other: Urine Appearance Clear Urine Color Light Brittani General appearance: average body habitus, cooperative and no acute distress Head Head exam: Present atraumatic and normal inspection Eye Eye exam: Present normal appearance ENT ENT exam: Present mucous membranes moist, normal exam and normal external ear exam Neck Neck exam: Present normal inspection Respiratory Respiratory exam: Present normal respiratory exam Cardiovascular Cardiovascular exam: Present normal rate and rhythm GI/Abdominal GI/Abdominal exam: Present normal bowel sounds Back Exam Back exam: Present normal inspection Neurological Exam Neurological exam: Present alert and oriented X3 Skin Skin exam: Present intact and warm OBJ DATA Labs CBC & Chem 7: 12/05/21 05:22 12/05/21 05:22 Labs: Abnormal Lab Results 12/05/21 12/05/21 12/04/21 05:22 05:22 17:53 RDW 15.2 H MPV 11.1 H RBC Morphology Anisocytosis ABG Methemoglobin VBG pH VBG pCO2 VBG pO2 VBG O2 Saturation Carboxyhemoglobin POC Sodium Sodium 131 L 132 L Chloride Carbon Dioxide 14 L 15 L POC Total CO2 Anion Gap Creatinine Glucose 216 H 173 H POC Glucose Hemoglobin A1c Calcium 7.7 L 7.8 L Phosphorus 1.0 L AST 158 H ALT 57 H Total Protein 5.5 L Lipase Beta-Hydroxybutyrate Urine Glucose (UA) Urine Ketones Urine Occult Blood Urine WBC Urine Mucus Urine Yeast (Budding) 12/04/21 12/04/21 12/04/21 15:55 05:47 03:46 RDW MPV RBC Morphology Anisocytosis ABG Methemoglobin VBG pH VBG pCO2 VBG pO2 VBG O2 Saturation Carboxyhemoglobin POC Sodium Sodium 132 L 126 L Chloride 91 L Carbon Dioxide 13 L 6 L* POC Total CO2 Anion Gap 29.0 H Creatinine 1.3 H Glucose 175 H 487 H* POC Glucose Hemoglobin A1c 12.9 H Calcium 7.6 L 8.2 L Phosphorus AST ALT Total Protein Lipase 180 H Beta-Hydroxybutyrate Urine Glucose (UA) 500 mg/dl A Urine Ketones >=160 mg/dl A Urine Occult Blood Small A Urine WBC 11 H Urine Mucus Few A Urine Yeast (Budding) Few A 12/04/21 12/03/21 12/03/21 01:35 23:20 22:06 RDW MPV RBC Morphology Anisocytosis ABG Methemoglobin 0.3 L VBG pH 7.46 H VBG pCO2 34.9 L VBG pO2 149.7 H VBG O2 Saturation 89.3 H Carboxyhemoglobin 9.2 H POC Sodium Sodium Chloride Carbon Dioxide POC Total CO2 9 L* Anion Gap Creatinine Glucose POC Glucose 453 H* Hemoglobin A1c Calcium Phosphorus AST ALT Total Protein Lipase Beta-Hydroxybutyrate 10.86 H Urine Glucose (UA) Urine Ketones Urine Occult Blood Urine WBC Urine Mucus Urine Yeast (Budding) 12/03/21 12/03/21 22:06 22:06 RDW 14.6 H MPV 11.3 H RBC Morphology Abnormal A Anisocytosis 1+ A ABG Methemoglobin VBG pH VBG pCO2 VBG pO2 VBG O2 Saturation Carboxyhemoglobin POC Sodium 127 L Sodium Chloride Carbon Dioxide POC Total CO2 9 L* Anion Gap Creatinine Glucose POC Glucose 697 H* Hemoglobin A1c Calcium Phosphorus AST ALT Total Protein Lipase Beta-Hydroxybutyrate Urine Glucose (UA) Urine Ketones Urine Occult Blood Urine WBC Urine Mucus Urine Yeast (Budding) Meds: Medications Acetaminophen (Acetaminophen 325 Mg Tablet) 650 mg PO Q4-6HP PRN; Protocol PRN Reason: Per Pain Protocol/Fever > 101 Last Admin: 12/05/21 09:34 Dose: 650 mg Documented by: Acyclovir (Acyclovir 400 Mg Tablet) 400 mg PO BID [facility]; Protocol Last Admin: 12/05/21 09:15 Dose: 400 mg Documented by: Albuterol/Ipratropium (Ipratropium/Albuterol 3 Ml Ampul.Neb) 3 ml NEB Q4HRT PRN PRN Reason: Wheezing Atorvastatin Calcium (Atorvastatin 40 Mg Tablet) 40 mg PO QHS [facility] Last Admin: 12/04/21 19:59 Dose: 40 mg Documented by: Dextrose (Dextrose 50% 50 Ml Vial) 0 ml IV UD PRN PRN Reason: Per Sliding Scale Diagnostic Test (Pha) (Accu-Chek 1 Each Strip) 1 each FS ACHS [facility] Last Admin: 12/05/21 07:02 Dose: 1 each Documented by: Docusate Sodium (Docusate Sodium 100 Mg Capsule) 100 mg PO BID [facility] Last Admin: 12/05/21 09:15 Dose: 100 mg Documented by: Duloxetine HCl (Duloxetine 30 Mg Capsule) 30 mg PO QDAY [facility] Last Admin: 12/05/21 09:15 Dose: 30 mg Documented by: Enoxaparin Sodium (Enoxaparin 40 Mg/0.4 Ml Syringe) 40 mg SQ DAILY [facility] Last Admin: 12/05/21 09:14 Dose: 40 mg Documented by: Gabapentin (Gabapentin 400 Mg Capsule) 800 mg PO QID [facility] Last Admin: 12/05/21 09:15 Dose: 800 mg Documented by: Glucose (Dextrose 31 Gm Oral.Susp) 15 gm PO PRN PRN PRN Reason: Hypoglycemia Hyoscyamine (Hyoscyamine Sulfate 0.125 Mg Tablet) 0.125 mg PO Q6HP PRN PRN Reason: Secretions Potassium Chloride 20 meq/ (Dextrose) 260 mls @ 130 mls/hr IV UD PRN PRN Reason: hypokalemia Magnesium Sulfate (Magnesium Sulfate) 2 gm in 50 mls @ 50 mls/hr IV UD PRN PRN Reason: Hypomagnesemia Insulin Human Regular 50 unit/ (Sodium Chloride) 100 mls @ 0 mls/hr IV Q12H [facility]; Protocol Last Titration: 12/05/21 07:48 Dose: Infused Documented by: Sodium Phosphate 30 mmol/ (Dextrose) 510 mls @ 85 mls/hr IV UD PRN PRN Reason: Hypophosphatemia Insulin Glargine (Insulin Glargine, Human 1 Unit/0.01 Ml) 30 unit SQ BID [facility] Last Admin: 12/05/21 09:14 Dose: 30 unit Documented by: Insulin Human Lispro (Insulin Lispro 1 Unit/0.01 Ml Unit) 0 unit SQ ACHS [facility]; Protocol Last Admin: 12/05/21 07:08 Dose: 6 unit Documented by: Iron Carb/Multivit/[employer]/Folic Acid (Multivit,Ther Iron,Ca,Fa & Min 1 Tablet) 1 tab PO DAILY [facility] Last Admin: 12/05/21 09:14 Dose: 1 tab Documented by: Lactobacillus Rhamnosus (Lactobacillus 1 Capsule) 2 cap PO QDAY [facility] Last Admin: 12/05/21 09:15 Dose: 2 cap Documented by: Levothyroxine Sodium (Levothyroxine 125 Mcg Tablet) 125 mcg PO QAMAC [facility] Last Admin: 12/05/21 07:08 Dose: 125 mcg Documented by: Losartan Potassium (Losartan 50 Mg Tablet) 50 mg PO QDAY [facility] Last Admin: 12/05/21 09:13 Dose: 50 mg Documented by: Metoclopramide HCl (Metoclopramide 10 Mg/2 Ml Vial) 10 mg IV Q6 PRN PRN Reason: Nausea And Vomiting Morphine Sulfate (Morphine 4 Mg/Ml Vial) 4 mg IV Q2HP PRN; Protocol PRN Reason: Per Pain Protocol Multivitamins/Minerals (Vit A,C & E/Lutein/Minerals Tablet) 1 tab PO DAILY [facility] Last Admin: 12/05/21 09:15 Dose: 1 tab Documented by: Ondansetron HCl (Ondansetron 4 Mg/2 Ml Vial) 4 mg IV Q4-6HP PRN; Protocol PRN Reason: Nausea And Vomiting Oxycodone HCl (Oxycodone Hcl 5 Mg Tablet) 10 mg PO Q6HP PRN; Protocol PRN Reason: Per Pain Protocol Last Admin: 12/05/21 09:34 Dose: 10 mg Documented by: Lipase-Protease- Amylase [Zenpep] 40, 000-126,000-168,000 Cap 1 dose PO TID [facility] Last Admin: 12/05/21 08:58 Dose: 1 dose Documented by: Senna (Sennosides 1 Tablet) 1 tab PO DAILYP PRN PRN Reason: Constipation Sodium Chloride (0.9 % Sodium Chloride 10 Ml Syringe) 10 ml IV Q8 [facility] Last Admin: 12/05/21 05:44 Dose: 10 ml Documented by: Trazodone HCl (Trazodone Hcl 100 Mg Tablet) 100 mg PO HSP PRN PRN Reason: insomnia Vitamin D (Vitamin D3 25 Mcg Tablet) 50 mcg PO DAILY [facility] Last Admin: 12/05/21 09:14 Dose: 50 mcg Documented by: Zinc Sulfate (Zinc Sulfate 50 Mg Capsule) 50 mg PO QDAY [facility] Last Admin: 12/05/21 09:14 Dose: 50 mg Documented by: ABG Interpretation ABG results: 12/03/21 23:20 ABG Methemoglobin 0.3 L VBG pH 7.46 H VBG pCO2 34.9 L VBG pO2 149.7 H VBG HCO3 24.5 VBG Total CO2 25.6 VBG O2 Saturation 89.3 H VBG Base Excess 1 A/P Assessment and plan (1) DKA (diabetic ketoacidosis): Status: Acute (2) Hypothyroidism: Status: Chronic (3) Depression: Status: Chronic (4) Anxiety: Status: Chronic (5) Hypertension: Status: Chronic (6) Chronic pancreatitis: Status: Chronic (7) Hypomagnesemia: Status: Acute Narrative A/P Narrative: Assessment and Plans: 1. DKA type II: Transfer to med surg Insulin Lantus 30 unit BID SSI AC HS Accu Chek AC HS HgA1c Hypoglycemia protocol Diabetes education 2. Essential HTN: Currently normotensive Losartan 3. Hypothyroidism: Continue thyroid replacement therapy 4. Depression with anxiety: Gerambalta 5. Chronic pancreatitis: Lipase level Probiotics Zenpep 6. Hypomagnesemia: Mg rider Trend serum Mg level daily GI ppx: not currently indicated DVT ppx: Lovenox Code status: Full Prognosis: stable Disposition: Transfer to med surg Time Spent With Patient Time: Total time spent is greater than 50% in coordination of care (as documented) at patient's floor/unit and/or counseling patient: Total time spent with greater than 50% in coordination of care (as documented) at patient's floor/unit and/or counseling patient:: 35 - 50 minutes
[2021-12-05] MEDS: SODIUM PHOSPHATE 30 MMOL in DEXTROSE 5% IN WATER 500 ML IV PRN (11:37)
[2021-12-05] MEDS ORDERED: DEXTROSE 31 GM ORAL.SUSP PO PRN (19:23)
[2021-12-05] MEDS ORDERED: DEXTROSE 50% 50 ML VIAL IV PRN (19:23)
[2021-12-05] MEDS: ATORVASTATIN 40 MG TABLET PO SCH (20:45)
[2021-12-06] MEDS: 0.9 % SODIUM CHLORIDE 10 ML SYRINGE IV SCH ×3 (05:10→21:57)
[2021-12-06] MEDS: INSULIN LISPRO 1 UNIT/0.01 ML UNIT SQ SCH ×4 (07:05→21:55)
[2021-12-06] MEDS: LEVOTHYROXINE 125 MCG TABLET PO SCH (07:06)
[2021-12-06 07:07] LABS: ALT/SGPT 58 U/L (<40); AST/SGOT 133 U/L (<32); Albumin 3.2 gm/dL (3.2-5.2); Albumin/Globulin Ratio 1.4 (1.0-2.3); Alkaline Phosphatase 111 U/L (39-117); Bilirubin,Total 0.3 mg/dL (0.1-1.0); Blood Urea Nitrogen 5 mg/dL (8-23); Calcium 8.1 mg/dL (8.6-10.4); Carbon Dioxide 19 mmol/L (22-30); Chloride 104 mmol/L (96-108); Globulin 2.3 gm/dL (2.2-3.7); Glomerular Filtration Rate 84; Glucose 139 mg/dL (70-105); Phosphorous 1.3 mg/dL (2.5-4.5)
[2021-12-06] MEDS: LIPASE PROTEASE AMYLASE PO SCH ×5 (08:25→21:57)
[2021-12-06] MEDS: VIT A,C & E/LUTEIN/MINERALS TABLET PO SCH (08:39)
[2021-12-06] MEDS: MULTIVIT,THER IRON,CA,FA & MIN 1 TABLET PO SCH (08:39)
[2021-12-06] MEDS: ZINC SULFATE 50 MG CAPSULE PO SCH (08:39)
[2021-12-06] MEDS: LACTOBACILLUS 1 CAPSULE PO SCH (08:39)
[2021-12-06] MEDS: VITAMIN D3 25 MCG TABLET PO SCH (08:39)
[2021-12-06] MEDS: LOSARTAN 50 MG TABLET PO SCH (08:39)
[2021-12-06] MEDS: DOCUSATE SODIUM 100 MG CAPSULE PO SCH ×2 (08:39→21:57)
[2021-12-06] MEDS: DULoxetine 30 MG CAPSULE PO SCH (08:40)
[2021-12-06] MEDS: ENOXAPARIN 40 MG/0.4 ML SYRINGE SQ SCH (08:40)
[2021-12-06] MEDS: GABAPENTIN 400 MG CAPSULE PO SCH ×4 (08:40→21:57)
[2021-12-06] MEDS: ACYCLOVIR 400 MG TABLET PO SCH ×2 (08:40→21:57)
[2021-12-06] MEDS: INSULIN GLARGINE, HUMAN 1 UNIT/0.01 ML SQ SCH ×2 (08:41→21:54)
[2021-12-06] MEDS: ACETAMINOPHEN 325 MG TABLET PO PRN ×3 (08:50→19:07)
[2021-12-06] MEDS: oxyCODONE HCL 5 MG TABLET PO PRN ×3 (08:50→21:56)
[2021-12-06] MEDS: SODIUM PHOSPHATE 30 MMOL in DEXTROSE 5% IN WATER 500 ML IV PRN (11:30)
--- NOTE | 2021-12-06 12:02 | Internal Med Progress Note ---
SUBJECTIVE Subjective Patient information: Note initiated : 12/06/21 at 11:58 am Service Date, if different from initiated Date: [] Patient: Tennille Castillo a 76 y/o F admitted on 12/04/21 for Blood sugar reads HI. Chief Complaint: [] Interval history: Ms. Castillo is a 76 year old F past medical history of type 2 diabetes mellitus, depression with anxiety, chronic pancreatitis, hypothyroidism, essential HTN, presenting with 1 week history of general body weakness, abdominal pain, decreased food intake, and nausea. Last prior episode of DKA was about a year ago. Over the past week, patient has experienced gradual onset, gradually worsening nature of general body weakness, abdominal pain mostly in the left upper and lower quadrants, 10 out of 10 in severity, aching, constant, as well as decreased food intake and nausea without vomiting. As a result, patient has not been compliant with her insulin regimen which comprise of Tresiba 30 units twice daily as well as sliding scale insulin. Initial lab works in the ED significant for glucose of 697, serum bicarb of 9, anion gap of 18, and beta hydroxybutyrate of 10.86, suggestive of another episode of diabetic ketoacidosis. 12/05: Insulin drip was being switched off last evening. Fasting glucose level 214. Tolerating CC diet. Denies nausea or vomiting. Denies abdominal pain. Continue SQ insulin therapy. Transfer from ICU to med surg. 12/06: Fasting glucose 114. Good appetite, tolerating oral feeding. Denies GI symptoms such as nausea or vomiting. Denies abdominal pain. Continue SQ insulin therapy. Pending SNF placement. Constitutional Vitals: Vital Signs Temp Pulse Resp BP Pulse Ox 36.6 C 76 20 126/69 95 12/06/21 07:31 12/06/21 07:31 12/06/21 04:00 12/06/21 07:31 12/06/21 07:31 Period Temp Pulse Resp BP Sys/Rosario Pulse Ox Last 24 Hr 36.3 C-36.6 C 74-84 16-20 115-148/54-75 93-99 Intake and Output 12/05/21 12/06/21 12/06/21 21:59 05:59 13:59 Intake Total 910 520 440 Output Total 9942 529 9585 Balance -90 -305 -760 Weight 75.296 kg Intake & Output: Intake & Output 12/05/21 12/06/21 12/06/21 21:59 05:59 13:59 Intake Total 910 520 440 Output Total 5080 638 1325 Balance -90 -305 -760 Weight 75.296 kg Intake: IV 510 Sodium Phosphate 30 Mmol In 510 Dextrose 5% in Water 500 ml @ 85 mls/hr IV UD PRN Rx#: [id number] Oral 400 520 440 Output: Void Amount 3538 694 4240 Other: Meal Breakfast Percent of Meal Consumed 100% Feeding Ability Independent Urine Appearance Clear Urine Color Bright Yellow Head Head exam: Present atraumatic and normal inspection Eye Eye exam: Present normal appearance ENT ENT exam: Present mucous membranes moist, normal exam and normal external ear exam Neck Neck exam: Present normal inspection Respiratory Respiratory exam: Present normal respiratory exam Cardiovascular Cardiovascular exam: Present normal rate and rhythm GI/Abdominal GI/Abdominal exam: Present normal bowel sounds Back Exam Back exam: Present normal inspection Neurological Exam Neurological exam: Present alert and oriented X3 Skin Skin exam: Present intact and warm OBJ DATA Labs CBC & Chem 7: 12/05/21 05:22 12/06/21 05:14 Labs: Abnormal Lab Results 12/06/21 12/05/21 12/05/21 05:14 05:22 05:22 RDW 15.2 H MPV 11.1 H RBC Morphology Anisocytosis ABG Methemoglobin VBG pH VBG pCO2 VBG pO2 VBG O2 Saturation Carboxyhemoglobin POC Sodium Sodium 131 L Chloride Carbon Dioxide 19 L 14 L POC Total CO2 Anion Gap BUN 5 L Creatinine Glucose 139 H 216 H POC Glucose Hemoglobin A1c Calcium 8.1 L 7.7 L Phosphorus 1.3 L 1.0 L AST 133 H 158 H ALT 58 H 57 H Total Protein 5.5 L 5.5 L Lipase Beta-Hydroxybutyrate Urine Glucose (UA) Urine Ketones Urine Occult Blood Urine WBC Urine Mucus Urine Yeast (Budding) 12/04/21 12/04/21 12/04/21 17:53 15:55 05:47 RDW MPV RBC Morphology Anisocytosis ABG Methemoglobin VBG pH VBG pCO2 VBG pO2 VBG O2 Saturation Carboxyhemoglobin POC Sodium Sodium 132 L 132 L 126 L Chloride 91 L Carbon Dioxide 15 L 13 L 6 L* POC Total CO2 Anion Gap 29.0 H BUN Creatinine 1.3 H Glucose 173 H 175 H 487 H* POC Glucose Hemoglobin A1c 12.9 H Calcium 7.8 L 7.6 L 8.2 L Phosphorus AST ALT Total Protein Lipase 180 H Beta-Hydroxybutyrate Urine Glucose (UA) Urine Ketones Urine Occult Blood Urine WBC Urine Mucus Urine Yeast (Budding) 12/04/21 12/04/21 12/03/21 03:46 01:35 23:20 RDW MPV RBC Morphology Anisocytosis ABG Methemoglobin 0.3 L VBG pH 7.46 H VBG pCO2 34.9 L VBG pO2 149.7 H VBG O2 Saturation 89.3 H Carboxyhemoglobin 9.2 H POC Sodium Sodium Chloride Carbon Dioxide POC Total CO2 9 L* Anion Gap BUN Creatinine Glucose POC Glucose 453 H* Hemoglobin A1c Calcium Phosphorus AST ALT Total Protein Lipase Beta-Hydroxybutyrate Urine Glucose (UA) 500 mg/dl A Urine Ketones >=160 mg/dl A Urine Occult Blood Small A Urine WBC 11 H Urine Mucus Few A Urine Yeast (Budding) Few A 12/03/21 12/03/21 12/03/21 22:06 22:06 22:06 RDW 14.6 H MPV 11.3 H RBC Morphology Abnormal A Anisocytosis 1+ A ABG Methemoglobin VBG pH VBG pCO2 VBG pO2 VBG O2 Saturation Carboxyhemoglobin POC Sodium 127 L Sodium Chloride Carbon Dioxide POC Total CO2 9 L* Anion Gap BUN Creatinine Glucose POC Glucose 697 H* Hemoglobin A1c Calcium Phosphorus AST ALT Total Protein Lipase Beta-Hydroxybutyrate 10.86 H Urine Glucose (UA) Urine Ketones Urine Occult Blood Urine WBC Urine Mucus Urine Yeast (Budding) Meds: Medications Acetaminophen (Acetaminophen 325 Mg Tablet) 650 mg PO Q4-6HP PRN; Protocol PRN Reason: Per Pain Protocol/Fever > 101 Last Admin: 12/06/21 08:50 Dose: 650 mg Documented by: Acyclovir (Acyclovir 400 Mg Tablet) 400 mg PO BID [facility]; Protocol Last Admin: 12/06/21 08:40 Dose: 400 mg Documented by: Albuterol/Ipratropium (Ipratropium/Albuterol 3 Ml Ampul.Neb) 3 ml NEB Q4HRT PRN PRN Reason: Wheezing Atorvastatin Calcium (Atorvastatin 40 Mg Tablet) 40 mg PO QHS [facility] Last Admin: 12/05/21 20:45 Dose: 40 mg Documented by: Dextrose (Dextrose 50% 50 Ml Vial) 0 ml IV UD PRN PRN Reason: Per Sliding Scale Diagnostic Test (Pha) (Accu-Chek 1 Each Strip) 1 each FS ACHS [facility] Last Admin: 12/06/21 11:30 Dose: 1 each Documented by: Docusate Sodium (Docusate Sodium 100 Mg Capsule) 100 mg PO BID [facility] Last Admin: 12/06/21 08:39 Dose: 100 mg Documented by: Duloxetine HCl (Duloxetine 30 Mg Capsule) 30 mg PO QDAY [facility] Last Admin: 12/06/21 08:40 Dose: 30 mg Documented by: Enoxaparin Sodium (Enoxaparin 40 Mg/0.4 Ml Syringe) 40 mg SQ DAILY [facility] Last Admin: 12/06/21 08:40 Dose: 40 mg Documented by: Gabapentin (Gabapentin 400 Mg Capsule) 800 mg PO QID [facility] Last Admin: 12/06/21 08:40 Dose: 800 mg Documented by: Glucose (Dextrose 31 Gm Oral.Susp) 15 gm PO PRN PRN PRN Reason: Hypoglycemia Hyoscyamine (Hyoscyamine Sulfate 0.125 Mg Tablet) 0.125 mg PO Q6HP PRN PRN Reason: Secretions Potassium Chloride 20 meq/ (Dextrose) 260 mls @ 130 mls/hr IV UD PRN PRN Reason: hypokalemia Magnesium Sulfate (Magnesium Sulfate) 2 gm in 50 mls @ 50 mls/hr IV UD PRN PRN Reason: Hypomagnesemia Sodium Phosphate 30 mmol/ (Dextrose) 510 mls @ 85 mls/hr IV UD PRN PRN Reason: Hypophosphatemia Last Infusion: 12/05/21 18:11 Dose: Infused Documented by: Insulin Glargine (Insulin Glargine, Human 1 Unit/0.01 Ml) 40 unit SQ BID [facility] Last Admin: 12/06/21 08:41 Dose: 40 unit Documented by: Insulin Human Lispro (Insulin Lispro 1 Unit/0.01 Ml Unit) 0 unit SQ [facility]; Protocol Last Admin: 12/06/21 11:33 Dose: 9 unit Documented by: Iron Carb/Multivit/[place]/Folic Acid (Multivit,Ther Iron,Ca,Fa & Min 1 Tablet) 1 tab PO DAILY [facility] Last Admin: 12/06/21 08:39 Dose: 1 tab Documented by: Lactobacillus Rhamnosus (Lactobacillus 1 Capsule) 2 cap PO QDAY [facility] Last Admin: 12/06/21 08:39 Dose: 2 cap Documented by: Levothyroxine Sodium (Levothyroxine 125 Mcg Tablet) 125 mcg PO QAMAC [facility] Last Admin: 12/06/21 07:06 Dose: 125 mcg Documented by: Losartan Potassium (Losartan 50 Mg Tablet) 50 mg PO QDAY [facility] Last Admin: 12/06/21 08:39 Dose: 50 mg Documented by: Metoclopramide HCl (Metoclopramide 10 Mg/2 Ml Vial) 10 mg IV Q6HP PRN PRN Reason: Nausea And Vomiting Morphine Sulfate (Morphine 4 Mg/Ml Vial) 4 mg IV Q2HP PRN; Protocol PRN Reason: Per Pain Protocol Multivitamins/Minerals (Vit A,C & E/Lutein/Minerals Tablet) 1 tab PO DAILY [facility] Last Admin: 12/06/21 08:39 Dose: 1 tab Documented by: Ondansetron HCl (Ondansetron 4 Mg/2 Ml Vial) 4 mg IV Q4-6HP PRN; Protocol PRN Reason: Nausea And Vomiting Oxycodone HCl (Oxycodone Hcl 5 Mg Tablet) 10 mg PO Q6HP PRN; Protocol PRN Reason: Per Pain Protocol Last Admin: 12/06/21 08:50 Dose: 10 mg Documented by: Lipase-Protease- Amylase [Zenpep] 40, 000-126,000-168,000 Cap 1 dose PO TID [facility] Last Admin: 12/06/21 08:25 Dose: 1 dose Documented by: Senna (Sennosides 1 Tablet) 1 tab PO DAILYP PRN PRN Reason: Constipation Sodium Chloride (0.9 % Sodium Chloride 10 Ml Syringe) 10 ml IV Q8 [facility] Last Admin: 12/06/21 05:10 Dose: 10 ml Documented by: Trazodone HCl (Trazodone Hcl 100 Mg Tablet) 100 mg PO HSP PRN PRN Reason: insomnia Vitamin D (Vitamin D3 25 Mcg Tablet) 50 mcg PO DAILY [facility] Last Admin: 12/06/21 08:39 Dose: 50 mcg Documented by: Zinc Sulfate (Zinc Sulfate 50 Mg Capsule) 50 mg PO QDAY [facility] Last Admin: 12/06/21 08:39 Dose: 50 mg Documented by: ABG Interpretation ABG results: 12/03/21 23:20 ABG Methemoglobin 0.3 L VBG pH 7.46 H VBG pCO2 34.9 L VBG pO2 149.7 H VBG HCO3 24.5 VBG Total CO2 25.6 VBG O2 Saturation 89.3 H VBG Base Excess 1 A/P Assessment and plan (1) DKA (diabetic ketoacidosis): Status: Acute (2) Hypothyroidism: Status: Chronic (3) Depression: Status: Chronic (4) Anxiety: Status: Chronic (5) Hypertension: Status: Chronic (6) Chronic pancreatitis: Status: Chronic (7) Hypomagnesemia: Status: Acute Narrative A/P Narrative: Assessment and Plans: 1. DKA type II: inpatient med surg Insulin Lantus 40 unit BID SSI AC HS Accu Chek AC HS HgA1c 12.9 Hypoglycemia protocol Diabetes education 2. Essential HTN: Currently normotensive Losartan 3. Hypothyroidism: Continue thyroid replacement therapy 4. Depression with anxiety: Cymbalta 5. Chronic pancreatitis: Lipase level Probiotics Zenpep 6. Hypomagnesemia: Mg rider Trend serum Mg level daily GI ppx: not currently indicated DVT ppx: Lovenox Code status: Full Prognosis: stable Disposition: inpatient med surg; pending SNF placement Time Spent With Patient Time: Total time spent is greater than 50% in coordination of care (as documented) at patient's floor/unit and/or counseling patient: Total time spent with greater than 50% in coordination of care (as documented) at patient's floor/unit and/or counseling patient:: 35 - 50 minutes
[2021-12-06] MEDS: ATORVASTATIN 40 MG TABLET PO SCH (21:57)
[2021-12-07] MEDS: ACETAMINOPHEN 325 MG TABLET PO PRN (02:15)
[2021-12-07] MEDS: oxyCODONE HCL 5 MG TABLET PO PRN ×2 (03:38→13:20)
[2021-12-07] MEDS: 0.9 % SODIUM CHLORIDE 10 ML SYRINGE IV SCH ×3 (05:18→21:20)
[2021-12-07 07:02] LABS: ALT/SGPT 80 U/L (<40); AST/SGOT 205 U/L (<32); Albumin 3.2 gm/dL (3.2-5.2); Albumin/Globulin Ratio 1.4 (1.0-2.3); Alkaline Phosphatase 125 U/L (39-117); Bilirubin,Total 0.2 mg/dL (0.1-1.0); Blood Urea Nitrogen 7 mg/dL (8-23); Calcium 8.4 mg/dL (8.6-10.4); Carbon Dioxide 26 mmol/L (22-30); Chloride 104 mmol/L (96-108); Globulin 2.3 gm/dL (2.2-3.7); Glomerular Filtration Rate 88; Glucose 147 mg/dL (70-105)
[2021-12-07 07:03] LABS: Phosphorous 1.7 mg/dL (2.5-4.5)
[2021-12-07] MEDS: LEVOTHYROXINE 125 MCG TABLET PO SCH (07:26)
[2021-12-07] MEDS: INSULIN LISPRO 1 UNIT/0.01 ML UNIT SQ SCH ×4 (07:29→21:21)
[2021-12-07 08:13] LABS: Basophils # (Auto) 0.03 K/mcL (0.00-0.30); Basophils % (Auto) 0.7 % (0.0-2.0); Eosinophils % (Auto) 2.5 % (0.0-7.0); Hematocrit 35.3 % (34.1-44.9); Hemoglobin 12.5 g/dL (11.2-15.7); Lymphocytes # (Auto) 1.81 K/mcL (1.50-4.80); Lymphocytes % (Auto) 44.5 % (15.5-49.0); Mean Corpuscular HGB Conc 35.4 g/dL (31.0-36.0); Mean Platelet Volume 11.3 fL (7.4-10.4); Monocytes # (Auto) 0.28 K/mcL (0.10-0.90); Monocytes % (Auto) 6.9 % (1.0-12.0); Neutrophils % (Auto) 45.4 % (38.0-78.0); Platelet Count 97 K/mcL (140-440); RBC 4.01 M/mcL (3.59-5.38); Red Cell Distribution Width 15.1 % (11.5-14.5); WBC 4.1 K/mcL (4.5-11.0)
[2021-12-07 08:13] LABS: Basophils # (Auto) 0.03 K/mcL (0.00-0.30); Basophils % (Auto) 0.6 % (0.0-2.0); Eosinophils # (Auto) 0.14 K/mcL (0.00-0.70); Eosinophils % (Auto) 2.7 % (0.0-7.0); Hematocrit 36.3 % (34.1-44.9); Hemoglobin 12.3 g/dL (11.2-15.7); Lymphocytes # (Auto) 2.63 K/mcL (1.50-4.80); Lymphocytes % (Auto) 50.9 % (15.5-49.0); Mean Cell Volume 91.9 fL (80.0-100.0); Mean Corpuscular HGB Conc 33.9 g/dL (31.0-36.0); Mean Platelet Volume 12.4 fL (7.4-10.4); Monocytes # (Auto) 0.26 K/mcL (0.10-0.90); Neutrophils % (Auto) 40.8 % (38.0-78.0); Platelet Count 118 K/mcL (140-440); RBC 3.95 M/mcL (3.59-5.38); Red Cell Distribution Width 15.9 % (11.5-14.5); WBC 5.2 K/mcL (4.5-11.0)
[2021-12-07] MEDS: ENOXAPARIN 40 MG/0.4 ML SYRINGE SQ SCH (10:10)
[2021-12-07] MEDS: INSULIN GLARGINE, HUMAN 1 UNIT/0.01 ML SQ SCH ×2 (10:10→21:21)
[2021-12-07] MEDS: VIT A,C & E/LUTEIN/MINERALS TABLET PO SCH (10:11)
[2021-12-07] MEDS: LOSARTAN 50 MG TABLET PO SCH (10:11)
[2021-12-07] MEDS: LACTOBACILLUS 1 CAPSULE PO SCH (10:11)
[2021-12-07] MEDS: DULoxetine 30 MG CAPSULE PO SCH (10:11)
[2021-12-07] MEDS: GABAPENTIN 400 MG CAPSULE PO SCH ×4 (10:11→21:18)
[2021-12-07] MEDS: ACYCLOVIR 400 MG TABLET PO SCH ×2 (10:12→21:18)
[2021-12-07] MEDS: DOCUSATE SODIUM 100 MG CAPSULE PO SCH ×2 (10:14→21:18)
[2021-12-07] MEDS: MULTIVIT,THER IRON,CA,FA & MIN 1 TABLET PO SCH (10:21)
[2021-12-07] MEDS: VITAMIN D3 25 MCG TABLET PO SCH (10:21)
[2021-12-07] MEDS: LIPASE PROTEASE AMYLASE PO SCH ×3 (10:21→21:33)
[2021-12-07] MEDS: ZINC SULFATE 50 MG CAPSULE PO SCH (10:21)
[2021-12-07] MEDS ORDERED: POTASSIUM PHOSPHATE 40 MEQ in DEXTROSE 5% IN WATER 500 ML IV PRN (10:45)
--- NOTE | 2021-12-07 10:47 | Internal Med Progress Note ---
SUBJECTIVE Subjective Patient information: Note initiated : 12/07/21 at 10:46 am Service Date, if different from initiated Date: [] Patient: Tennille Castillo a 76 y/o F admitted on 12/04/21 for Blood sugar reads HI. Chief Complaint: [] Interval history: Ms. Castillo is a 76 year old F past medical history of type 2 diabetes mellitus, depression with anxiety, chronic pancreatitis, hypothyroidism, essential HTN, presenting with 1 week history of general body weakness, abdominal pain, decreased food intake, and nausea. Last prior episode of DKA was about a year ago. Over the past week, patient has experienced gradual onset, gradually worsening nature of general body weakness, abdominal pain mostly in the left upper and lower quadrants, 10 out of 10 in severity, aching, constant, as well as decreased food intake and nausea without vomiting. As a result, patient has not been compliant with her insulin regimen which comprise of Tresiba 30 units twice daily as well as sliding scale insulin. Initial lab works in the ED significant for glucose of 697, serum bicarb of 9, anion gap of 18, and beta hydroxybutyrate of 10.86, suggestive of another episode of diabetic ketoacidosis. 12/05: Insulin drip was being switched off last evening. Fasting glucose level 214. Tolerating CC diet. Denies nausea or vomiting. Denies abdominal pain. Continue SQ insulin therapy. Transfer from ICU to med surg. 12/06: Fasting glucose 114. Good appetite, tolerating oral feeding. Denies GI symptoms such as nausea or vomiting. Denies abdominal pain. Continue SQ insulin therapy. Pending SNF placement. 12/07: Fasting glucose 124. Good appetite, tolerating oral feeding. Denies GI symptoms such as nausea or vomiting. Denies abdominal pain. Continue SQ insulin therapy. Medically cleared, pending SNF placement. Constitutional Vitals: Vital Signs Temp Pulse Resp BP Pulse Ox 35.8 C L 79 14 145/82 95 12/07/21 07:54 12/07/21 07:54 12/07/21 07:54 12/07/21 07:54 12/07/21 07:54 Period Temp Pulse Resp BP Sys/Rosario Pulse Ox Last 24 Hr 35.8 C-36.9 C 78-87 14-16 132-159/60-82 95-98 Intake and Output 12/06/21 12/07/21 12/07/21 21:59 05:59 13:59 Intake Total 480 150 240 Output Total 900 1450 Balance -420 -1300 240 Weight 75.931 kg Intake & Output: Intake & Output 12/06/21 12/07/21 12/07/21 21:59 05:59 13:59 Intake Total 480 150 240 Output Total 900 1450 Balance -420 -1300 240 Weight 75.931 kg Intake: Oral 480 150 240 Output: Void Amount 900 1450 Other: Meal Dinner Percent of Meal Consumed 100% Urine Appearance Clear Clear Urine Color Bright Yellow Bright Yellow Head Head exam: Present atraumatic and normal inspection Eye Eye exam: Present normal appearance ENT ENT exam: Present mucous membranes moist, normal exam and normal external ear exam Neck Neck exam: Present normal inspection Respiratory Respiratory exam: Present normal respiratory exam Cardiovascular Cardiovascular exam: Present normal rate and rhythm GI/Abdominal GI/Abdominal exam: Present normal bowel sounds Back Exam Back exam: Present normal inspection Neurological Exam Neurological exam: Present alert and oriented X3 Skin Skin exam: Present intact and warm OBJ DATA Labs CBC & Chem 7: 12/07/21 05:31 12/07/21 05:31 Labs: Abnormal Lab Results 12/07/21 12/07/21 12/06/21 05:31 05:31 05:14 WBC 4.1 L RDW 15.1 H Plt Count 97 L MPV 11.3 H Lymph % (Auto) Sodium Potassium 3.2 L Carbon Dioxide 19 L BUN 7 L 5 L Glucose 147 H 139 H Calcium 8.4 L 8.1 L Phosphorus 1.7 L 1.3 L AST 205 H 133 H ALT 80 H 58 H Alkaline Phosphatase 125 H Total Protein 5.5 L 5.5 L 12/06/21 12/05/21 12/05/21 05:14 05:22 05:22 WBC RDW 15.9 H 15.2 H Plt Count 118 L MPV 12.4 H 11.1 H Lymph % (Auto) 50.9 H Sodium 131 L Potassium Carbon Dioxide 14 L BUN Glucose 216 H Calcium 7.7 L Phosphorus 1.0 L AST 158 H ALT 57 H Alkaline Phosphatase Total Protein 5.5 L 12/04/21 12/04/21 17:53 15:55 WBC RDW Plt Count MPV Lymph % (Auto) Sodium 132 L 132 L Potassium Carbon Dioxide 15 L 13 L BUN Glucose 173 H 175 H Calcium 7.8 L 7.6 L Phosphorus AST ALT Alkaline Phosphatase Total Protein Meds: Medications Acetaminophen (Acetaminophen 325 Mg Tablet) 650 mg PO Q4-6HP PRN; Protocol PRN Reason: Per Pain Protocol/Fever > 101 Last Admin: 12/07/21 02:15 Dose: 650 mg Documented by: Acyclovir (Acyclovir 400 Mg Tablet) 400 mg PO BID [facility]; Protocol Last Admin: 12/07/21 10:12 Dose: 400 mg Documented by: Albuterol/Ipratropium (Ipratropium/Albuterol 3 Ml Ampul.Neb) 3 ml NEB Q4HRT PRN PRN Reason: Wheezing Atorvastatin Calcium (Atorvastatin 40 Mg Tablet) 40 mg PO QHS [facility] Last Admin: 12/06/21 21:57 Dose: 40 mg Documented by: Dextrose (Dextrose 50% 50 Ml Vial) 0 ml IV UD PRN PRN Reason: Per Sliding Scale Diagnostic Test (Pha) (Accu-Chek 1 Each Strip) 1 each FS ACHS [facility] Last Admin: 12/07/21 07:29 Dose: 1 each Documented by: Docusate Sodium (Docusate Sodium 100 Mg Capsule) 100 mg PO BID [facility] Last Admin: 12/07/21 10:14 Dose: 100 mg Documented by: Duloxetine HCl (Duloxetine 30 Mg Capsule) 30 mg PO QDAY [facility] Last Admin: 12/07/21 10:11 Dose: 30 mg Documented by: Enoxaparin Sodium (Enoxaparin 40 Mg/0.4 Ml Syringe) 40 mg SQ DAILY [facility] Last Admin: 12/07/21 10:10 Dose: 40 mg Documented by: Gabapentin (Gabapentin 400 Mg Capsule) 800 mg PO QID [facility] Last Admin: 12/07/21 10:11 Dose: 800 mg Documented by: Glucose (Dextrose 31 Gm Oral.Susp) 15 gm PO PRN PRN PRN Reason: Hypoglycemia Hyoscyamine (Hyoscyamine Sulfate 0.125 Mg Tablet) 0.125 mg PO Q6HP PRN PRN Reason: Secretions Potassium Chloride 20 meq/ (Dextrose) 260 mls @ 130 mls/hr IV UD PRN PRN Reason: hypokalemia Magnesium Sulfate (Magnesium Sulfate) 2 gm in 50 mls @ 50 mls/hr IV UD PRN PRN Reason: Hypomagnesemia Sodium Phosphate 30 mmol/ (Dextrose) 510 mls @ 85 mls/hr IV UD PRN PRN Reason: Hypophosphatemia Last Infusion: 12/05/21 18:11 Dose: Infused Documented by: Potassium Phosphate 40 meq/ (Dextrose) 509.0909 mls @ 127.273 mls/hr IV UD PRN PRN Reason: Hypokalemia Insulin Glargine (Insulin Glargine, Human 1 Unit/0.01 Ml) 40 unit SQ BID [facility] Last Admin: 12/07/21 10:10 Dose: 40 unit Documented by: Insulin Human Lispro (Insulin Lispro 1 Unit/0.01 Ml Unit) 0 unit SQ ACHS [facility]; Protocol Last Admin: 12/07/21 07:29 Dose: Not Given Documented by: Iron Carb/Multivit/Client Resolution Specialist/Folic Acid (Multivit,Ther Iron,Ca,Fa & Min 1 Tablet) 1 tab PO DAILY [facility] Last Admin: 12/07/21 10:21 Dose: 1 tab Documented by: Lactobacillus Rhamnosus (Lactobacillus 1 Capsule) 2 cap PO QDAY [facility] Last Admin: 12/07/21 10:11 Dose: 2 cap Documented by: Levothyroxine Sodium (Levothyroxine 125 Mcg Tablet) 125 mcg PO QAMAC [facility] Last Admin: 12/07/21 07:26 Dose: 125 mcg Documented by: Losartan Potassium (Losartan 50 Mg Tablet) 50 mg PO QDAY [facility] Last Admin: 12/07/21 10:11 Dose: 50 mg Documented by: Metoclopramide HCl (Metoclopramide 10 Mg/2 Ml Vial) 10 mg IV Q6HP PRN PRN Reason: Nausea And Vomiting Morphine Sulfate (Morphine 4 Mg/Ml Vial) 4 mg IV Q2HP PRN; Protocol PRN Reason: Per Pain Protocol Multivitamins/Minerals (Vit A,C & E/Lutein/Minerals Tablet) 1 tab PO DAILY [facility] Last Admin: 12/07/21 10:11 Dose: 1 tab Documented by: Ondansetron HCl (Ondansetron 4 Mg/2 Ml Vial) 4 mg IV Q4-6HP PRN; Protocol PRN Reason: Nausea And Vomiting Oxycodone HCl (Oxycodone Hcl 5 Mg Tablet) 10 mg PO Q6HP PRN; Protocol PRN Reason: Per Pain Protocol Last Admin: 12/07/21 03:38 Dose: 10 mg Documented by: Lipase-Protease- Amylase [Zenpep] 40, 000-126,000-168,000 Cap 1 dose PO TID [facility] Last Admin: 12/07/21 10:21 Dose: 1 dose Documented by: Polyethylene Glycol (Polyethylene Glycol 3350 17 Gm Packet) 17 gm PO DAILYP PRN PRN Reason: Constipation Potassium Chloride (Potassium Chloride 20 Meq Tablet) 20 meq PO BIDCC [facility] Senna (Sennosides 1 Tablet) 1 tab PO DAILYP PRN PRN Reason: Constipation Sodium Chloride (0.9 % Sodium Chloride 10 Ml Syringe) 10 ml IV Q8 [facility] Last Admin: 12/07/21 05:18 Dose: 10 ml Documented by: Trazodone HCl (Trazodone Hcl 100 Mg Tablet) 100 mg PO HSP PRN PRN Reason: insomnia Vitamin D (Vitamin D3 25 Mcg Tablet) 50 mcg PO DAILY [facility] Last Admin: 12/07/21 10:21 Dose: 50 mcg Documented by: Zinc Sulfate (Zinc Sulfate 50 Mg Capsule) 50 mg PO QDAY [facility] Last Admin: 12/07/21 10:21 Dose: 50 mg Documented by: ABG Interpretation ABG results: 12/03/21 23:20 ABG Methemoglobin 0.3 L VBG pH 7.46 H VBG pCO2 34.9 L VBG pO2 149.7 H VBG HCO3 24.5 VBG Total CO2 25.6 VBG O2 Saturation 89.3 H VBG Base Excess 1 A/P Assessment and plan (1) DKA (diabetic ketoacidosis): Status: Acute (2) Hypothyroidism: Status: Chronic (3) Depression: Status: Chronic (4) Anxiety: Status: Chronic (5) Hypertension: Status: Chronic (6) Chronic pancreatitis: Status: Chronic (7) Hypomagnesemia: Status: Acute Narrative A/P Narrative: Assessment and Plans: 1. DKA type II: inpatient med surg Insulin Lantus 40 unit BID SSI AC HS Accu Chek AC HS HgA1c 12.9 Hypoglycemia protocol Diabetes education 2. Essential HTN: Currently normotensive Losartan 3. Hypothyroidism: Continue thyroid replacement therapy 4. Depression with anxiety: Cymbalta 5. Chronic pancreatitis: Lipase level Probiotics Zenpep 6. Hypomagnesemia: Mg rider Trend serum Mg level daily GI ppx: not currently indicated DVT ppx: Lovenox Code status: Full Prognosis: stable Disposition: inpatient med surg; pending SNF placement Time Spent With Patient Time: Total time spent is greater than 50% in coordination of care (as documented) at patient's floor/unit and/or counseling patient: Total time spent with greater than 50% in coordination of care (as documented) at patient's floor/unit and/or counseling patient:: 35 - 50 minutes
[2021-12-07] MEDS: POLYETHYLENE GLYCOL 3350 17 GM PACKET PO PRN (11:41)
[2021-12-07] MEDS: HYOSCYAMINE SULFATE 0.125 MG TABLET PO PRN ×2 (11:56→17:46)
[2021-12-07] MEDS: POTASSIUM CHLORIDE 20 MEQ TABLET PO SCH ×2 (13:19→17:41)
[2021-12-07] MEDS: NEUTRA PHOS 1 PACKET PO SCH ×2 (13:19→21:19)
[2021-12-07] MEDS ORDERED: POTASSIUM CHLORIDE 20 MEQ TABLET PO SCH (17:30)
[2021-12-07] MEDS ORDERED: NEUTRA PHOS 1 PACKET PO SCH (21:00)
[2021-12-07] MEDS: ATORVASTATIN 40 MG TABLET PO SCH (21:18)
[2021-12-08] MEDS: ACETAMINOPHEN 325 MG TABLET PO PRN ×2 (00:30→21:19)
[2021-12-08] MEDS: 0.9 % SODIUM CHLORIDE 10 ML SYRINGE IV SCH ×3 (05:06→21:21)
[2021-12-08] MEDS: HYOSCYAMINE SULFATE 0.125 MG TABLET PO PRN ×2 (05:06→12:38)
[2021-12-08 06:41] LABS: Basophils # (Auto) 0.04 K/mcL (0.00-0.30); Basophils % (Auto) 0.9 % (0.0-2.0); Eosinophils % (Auto) 2.1 % (0.0-7.0); Hematocrit 37.2 % (34.1-44.9); Hemoglobin 12.8 g/dL (11.2-15.7); Lymphocytes # (Auto) 1.96 K/mcL (1.50-4.80); Lymphocytes % (Auto) 41.7 % (15.5-49.0); Mean Cell Volume 88.4 fL (80.0-100.0); Mean Corpuscular HGB Conc 34.4 g/dL (31.0-36.0); Mean Platelet Volume 11.3 fL (7.4-10.4); Monocytes # (Auto) 0.33 K/mcL (0.10-0.90); Neutrophils % (Auto) 48.3 % (38.0-78.0); Platelet Count 101 K/mcL (140-440); RBC 4.21 M/mcL (3.59-5.38); Red Cell Distribution Width 14.9 % (11.5-14.5); WBC 4.7 K/mcL (4.5-11.0)
[2021-12-08 06:53] LABS: ALT/SGPT 90 U/L (<40); AST/SGOT 207 U/L (<32); Albumin 3.4 gm/dL (3.2-5.2); Albumin/Globulin Ratio 1.4 (1.0-2.3); Alkaline Phosphatase 130 U/L (39-117); Bilirubin,Total 0.3 mg/dL (0.1-1.0); Blood Urea Nitrogen 11 mg/dL (8-23); Calcium 9.1 mg/dL (8.6-10.4); Carbon Dioxide 32 mmol/L (22-30); Chloride 96 mmol/L (96-108); Globulin 2.5 gm/dL (2.2-3.7); Glomerular Filtration Rate 94; Glucose 167 mg/dL (70-105); Phosphorous 1.9 mg/dL (2.5-4.5)
[2021-12-08] MEDS: LIPASE PROTEASE AMYLASE PO SCH ×3 (07:57→21:19)
[2021-12-08] MEDS: POTASSIUM CHLORIDE 20 MEQ TABLET PO SCH ×2 (07:57→16:43)
[2021-12-08] MEDS: LEVOTHYROXINE 125 MCG TABLET PO SCH (07:57)
[2021-12-08] MEDS: INSULIN LISPRO 1 UNIT/0.01 ML UNIT SQ SCH ×4 (07:58→21:20)
[2021-12-08] MEDS: ENOXAPARIN 40 MG/0.4 ML SYRINGE SQ SCH (09:22)
[2021-12-08] MEDS: LACTOBACILLUS 1 CAPSULE PO SCH (09:22)
[2021-12-08] MEDS: INSULIN GLARGINE, HUMAN 1 UNIT/0.01 ML SQ SCH ×2 (09:22→21:21)
[2021-12-08] MEDS: POLYETHYLENE GLYCOL 3350 17 GM PACKET PO PRN (09:22)
[2021-12-08] MEDS: NEUTRA PHOS 1 PACKET PO SCH ×2 (09:22→21:20)
[2021-12-08] MEDS: VIT A,C & E/LUTEIN/MINERALS TABLET PO SCH (09:23)
[2021-12-08] MEDS: DULoxetine 30 MG CAPSULE PO SCH (09:23)
[2021-12-08] MEDS: GABAPENTIN 400 MG CAPSULE PO SCH ×4 (09:23→21:19)
[2021-12-08] MEDS: DOCUSATE SODIUM 100 MG CAPSULE PO SCH ×2 (09:23→21:19)
[2021-12-08] MEDS: LOSARTAN 50 MG TABLET PO SCH (09:23)
[2021-12-08] MEDS: VITAMIN D3 25 MCG TABLET PO SCH (09:23)
[2021-12-08] MEDS: ACYCLOVIR 400 MG TABLET PO SCH ×2 (09:23→21:19)
[2021-12-08] MEDS: ZINC SULFATE 50 MG CAPSULE PO SCH (09:23)
[2021-12-08] MEDS: MULTIVIT,THER IRON,CA,FA & MIN 1 TABLET PO SCH (09:23)
[2021-12-08] MEDS ORDERED: POTASSIUM CHLORIDE 20 MEQ TABLET PO ONE (10:15)
--- NOTE | 2021-12-08 14:33 | Internal Med Progress Note ---
SUBJECTIVE Subjective Patient information: Note initiated : 12/08/21 at 2:32 pm Service Date, if different from initiated Date: [] Patient: Tennille Castillo a 76 y/o F admitted on 12/04/21 for Blood sugar reads HI. Chief Complaint: [] Principal diagnosis: Elevated blood sugars Interval history: Ms. Castillo is a 76 year old F past medical history of type 2 diabetes mellitus, depression with anxiety, chronic pancreatitis, hypothyroidism, essential HTN, presenting with 1 week history of general body weakness, abdominal pain, decreased food intake, and nausea. Last prior episode of DKA was about a year ago. Over the past week, patient has experienced gradual onset, gradually worsening nature of general body weakness, abdominal pain mostly in the left upper and lower quadrants, 10 out of 10 in severity, aching, constant, as well as decreased food intake and nausea without vomiting. As a result, patient has not been compliant with her insulin regimen which comprise of Tresiba 30 units twice daily as well as sliding scale insulin. Initial lab works in the ED significant for glucose of 697, serum bicarb of 9, anion gap of 18, and beta hydroxybutyrate of 10.86, suggestive of another episode of diabetic ketoacidos is. 12/05: Insulin drip was being switched off last evening. Fasting glucose level 214. Tolerating CC diet. Denies nausea or vomiting. Denies abdominal pain. Continue SQ insulin therapy. Transfer from ICU to med surg. 12/06: Fasting glucose 114. Good appetite, tolerating oral feeding. Denies GI symptoms such as nausea or vomiting. Denies abdominal pain. Continue SQ insulin therapy. Pending SNF placement. 12/07: Fasting glucose 124. Good appetite, tolerating oral feeding. Denies GI symptoms such as nausea or vomiting. Denies abdominal pain. Continue SQ insulin therapy. Medically cleared, pending SNF placement. 12/08: No new sx or complaints. Eating well. Awaiting SNF placement. Constitutional Vitals: Vital Signs Temp Pulse Resp BP Pulse Ox 98.3 F 88 20 154/82 93 12/08/21 11:35 12/08/21 11:35 12/08/21 11:35 12/08/21 11:35 12/08/21 11:35 Period Temp Pulse Resp BP Sys/Rosario Pulse Ox Last 24 Hr 97.2 F-98.3 F 87-94 14-20 121-158/70-87 91-97 Intake and Output 12/08/21 12/08/21 12/08/21 05:59 13:59 21:59 Intake Total 1790 480 Output Total 1999 850 Balance -210 -370 Weight 77.247 kg Patient Weight 12/09/21 05:59 Weight 77.247 kg Intake & Output: Intake & Output 12/08/21 12/08/21 12/08/21 05:59 13:59 21:59 Intake Total 1790 480 Output Total 1999 850 Balance -210 -370 Weight 77.247 kg Intake: Oral 1790 480 Output: Void Amount 1999 Other: Meal Breakfast Percent of Meal Consumed 100% Feeding Ability Independent Urine Appearance Clear Urine Color Pale General appearance: average body habitus, cooperative and no acute distress Head Head exam: Present atraumatic and normocephalic Eye Eye exam: Present normal appearance Respiratory Respiratory exam: Present normal respiratory exam and CTAB; Absent accessory muscle use, decreased breath sounds or respiratory distress Cardiovascular Cardiovascular exam: Present normal rate and rhythm and RRR; Absent bradycardia, gallop, systolic murmur or tachycardia GI/Abdominal GI/Abdominal exam: Present soft Neurological Exam Neurological exam: Present alert and oriented X3; Absent altered or motor sensory deficit OBJ DATA Labs CBC & Chem 7: 12/08/21 05:14 12/08/21 05:14 Labs: Abnormal Lab Results 12/08/21 12/08/21 12/07/21 05:14 05:14 05:31 WBC RDW 14.9 H Plt Count 101 L MPV 11.3 H Lymph % (Auto) Potassium 3.2 L 3.2 L Carbon Dioxide 32 H Anion Gap 7.0 L BUN 7 L Creatinine 0.5 L Glucose 167 H 147 H Calcium 8.4 L Phosphorus 1.9 L 1.7 L AST 207 H 205 H ALT 90 H 80 H Alkaline Phosphatase 130 H 125 H Total Protein 5.5 L 12/07/21 12/06/21 12/06/21 05:31 05:14 05:14 WBC 4.1 L RDW 15.1 H 15.9 H Plt Count 97 L 118 L MPV 11.3 H 12.4 H Lymph % (Auto) 50.9 H Potassium Carbon Dioxide 19 L Anion Gap BUN 5 L Creatinine Glucose 139 H Calcium 8.1 L Phosphorus 1.3 L AST 133 H ALT 58 H Alkaline Phosphatase Total Protein 5.5 L Meds: Medications Acetaminophen (Acetaminophen 325 Mg Tablet) 650 mg PO Q4-6HP PRN; Protocol PRN Reason: Per Pain Protocol/Fever > 101 Last Admin: 12/08/21 00:30 Dose: 650 mg Documented by: Acyclovir (Acyclovir 400 Mg Tablet) 400 mg PO BID [facility]; Protocol Last Admin: 12/08/21 09:23 Dose: 400 mg Documented by: Albuterol/Ipratropium (Ipratropium/Albuterol 3 Ml Ampul.Neb) 3 ml NEB Q4HRT PRN PRN Reason: Wheezing Atorvastatin Calcium (Atorvastatin 40 Mg Tablet) 40 mg PO QHS [facility] Last Admin: 12/07/21 21:18 Dose: 40 mg Documented by: Dextrose (Dextrose 50% 50 Ml Vial) 0 ml IV UD PRN PRN Reason: Per Sliding Scale Diagnostic Test (Pha) (Accu-Chek 1 Each Strip) 1 each FS ACHS [facility] Last Admin: 12/08/21 12:01 Dose: 1 each Documented by: Docusate Sodium (Docusate Sodium 100 Mg Capsule) 100 mg PO BID [facility] Last Admin: 12/08/21 09:23 Dose: 100 mg Documented by: Duloxetine HCl (Duloxetine 30 Mg Capsule) 30 mg PO QDAY [facility] Last Admin: 12/08/21 09:23 Dose: 30 mg Documented by: Enoxaparin Sodium (Enoxaparin 40 Mg/0.4 Ml Syringe) 40 mg SQ DAILY [facility] Last Admin: 12/08/21 09:22 Dose: 40 mg Documented by: Gabapentin (Gabapentin 400 Mg Capsule) 800 mg PO QID [facility] Last Admin: 12/08/21 12:38 Dose: 800 mg Documented by: Glucose (Dextrose 31 Gm Oral.Susp) 15 gm PO PRN PRN PRN Reason: Hypoglycemia Hyoscyamine (Hyoscyamine Sulfate 0.125 Mg Tablet) 0.125 mg PO Q6HP PRN PRN Reason: Secretions Last Admin: 12/08/21 12:38 Dose: 0.125 mg Documented by: Potassium Chloride 20 meq/ (Dextrose) 260 mls @ 130 mls/hr IV UD PRN PRN Reason: hypokalemia Magnesium Sulfate (Magnesium Sulfate) 2 gm in 50 mls @ 50 mls/hr IV UD PRN PRN Reason: Hypomagnesemia Potassium Phosphate 40 meq/ (Dextrose) 509.0909 mls @ 127.273 mls/hr IV UD PRN PRN Reason: Hypokalemia Insulin Glargine (Insulin Glargine, Human 1 Unit/0.01 Ml) 40 unit SQ BID [facility] Last Admin: 12/08/21 09:22 Dose: 40 unit Documented by: Insulin Human Lispro (Insulin Lispro 1 Unit/0.01 Ml Unit) 0 unit SQ ACHS [facility]; Protocol Last Admin: 12/08/21 12:01 Dose: 6 unit Documented by: Iron Carb/Multivit/Benjamin Perez/Folic Acid (Multivit,Ther Iron,Ca,Fa & Min 1 Tablet) 1 tab PO DAILY [facility] Last Admin: 12/08/21 09:23 Dose: 1 tab Documented by: Lactobacillus Rhamnosus (Lactobacillus 1 Capsule) 2 cap PO QDAY [facility] Last Admin: 12/08/21 09:22 Dose: 2 cap Documented by: Levothyroxine Sodium (Levothyroxine 125 Mcg Tablet) 125 mcg PO QAMAC [facility] Last Admin: 12/08/21 07:57 Dose: 125 mcg Documented by: Losartan Potassium (Losartan 50 Mg Tablet) 50 mg PO QDAY [facility] Last Admin: 12/08/21 09:23 Dose: 50 mg Documented by: Magnesium Oxide (Magnesium Oxide 400 Mg Tablet) 800 mg PO DAILY [facility] Metoclopramide HCl (Metoclopramide 10 Mg/2 Ml Vial) 10 mg IV Q6HP PRN PRN Reason: Nausea And Vomiting Morphine Sulfate (Morphine 4 Mg/Ml Vial) 4 mg IV Q2HP PRN; Protocol PRN Reason: Per Pain Protocol Multivitamins/Minerals (Vit A,C & E/Lutein/Minerals Tablet) 1 tab PO DAILY [facility] Last Admin: 12/08/21 09:23 Dose: 1 tab Documented by: Ondansetron HCl (Ondansetron 4 Mg/2 Ml Vial) 4 mg IV Q4-6HP PRN; Protocol PRN Reason: Nausea And Vomiting Oxycodone HCl (Oxycodone Hcl 5 Mg Tablet) 10 mg PO Q6HP PRN; Protocol PRN Reason: Per Pain Protocol Last Admin: 12/07/21 13:20 Dose: 10 mg Documented by: Lipase-Protease- Amylase [Zenpep] 40, 000-126,000-168,000 Cap 1 dose PO TID [facility] Last Admin: 12/08/21 07:57 Dose: 1 dose Documented by: Polyethylene Glycol (Polyethylene Glycol 3350 17 Gm Packet) 17 gm PO DAILYP PRN PRN Reason: Constipation Last Admin: 12/08/21 09:22 Dose: 17 gm Documented by: Potassium Chloride (Potassium Chloride 20 Meq Tablet) 40 meq PO BIDCC [facility] Stop: 12/10/21 23:59 Potassium/Phosphorus/Sodium (Neutra Phos 1 Packet) 1 packet PO BID [facility] Last Admin: 12/08/21 09:22 Dose: 1 packet Documented by: Senna (Sennosides 1 Tablet) 1 tab PO DAILYP PRN PRN Reason: Constipation Sodium Chloride (0.9 % Sodium Chloride 10 Ml Syringe) 10 ml IV Q8 [facility] Last Admin: 12/08/21 05:06 Dose: 10 ml Documented by: Trazodone HCl (Trazodone Hcl 100 Mg Tablet) 100 mg PO HSP PRN PRN Reason: insomnia Vitamin D (Vitamin D3 25 Mcg Tablet) 50 mcg PO DAILY [facility] Last Admin: 12/08/21 09:23 Dose: 50 mcg Documented by: Zinc Sulfate (Zinc Sulfate 50 Mg Capsule) 50 mg PO QDAY [facility] Last Admin: 12/08/21 09:23 Dose: 50 mg Documented by: ABG Interpretation ABG results: 12/03/21 23:20 ABG Methemoglobin 0.3 L VBG pH 7.46 H VBG pCO2 34.9 L VBG pO2 149.7 H VBG HCO3 24.5 VBG Total CO2 25.6 VBG O2 Saturation 89.3 H VBG Base Excess 1 A/P Narrative A/P Narrative: 1. DKA type II: inpatient med surg Insulin Lantus 30 unit BID SSI AC HS Accu Chek AC HS HgA1c 12.9 Hypoglycemia protocol Diabetes education 2. Essential HTN: Currently normotensive Losartan 3. Hypothyroidism: Continue thyroid replacement therapy 4. Depression with anxiety: Cymbalta 5. Chronic pancreatitis: Lipase level Probiotics Zenpep 6. Hypomagnesemia:Hypokalemia Mg rider. PO 40 meq BID for another 3 days. Trend serum Mg level daily GI ppx: not currently indicated DVT ppx: Lovenox Code status: Full Prognosis: stable Disposition: inpatient med surg; pending SNF placement Time Spent With Patient Time: Total time spent is greater than 50% in coordination of care (as documented) at patient's floor/unit and/or counseling patient: Total time spent with greater than 50% in coordination of care (as documented) at patient's floor/unit and/or counseling patient:: 25 - 35 minutes Critical Care Time: No
[2021-12-08] MEDS: oxyCODONE HCL 5 MG TABLET PO PRN (16:36)
[2021-12-08] MEDS: ATORVASTATIN 40 MG TABLET PO SCH (21:20)
[2021-12-09] MEDS: 0.9 % SODIUM CHLORIDE 10 ML SYRINGE IV SCH ×3 (04:01→21:55)
[2021-12-09] MEDS: oxyCODONE HCL 5 MG TABLET PO PRN ×2 (04:31→12:17)
[2021-12-09] MEDS: HYOSCYAMINE SULFATE 0.125 MG TABLET PO PRN (04:34)
[2021-12-09 06:23] LABS: Basophils # (Auto) 0.04 K/mcL (0.00-0.30); Basophils % (Auto) 0.8 % (0.0-2.0); Eosinophils # (Auto) 0.14 K/mcL (0.00-0.70); Eosinophils % (Auto) 2.9 % (0.0-7.0); Hematocrit 37.5 % (34.1-44.9); Hemoglobin 12.6 g/dL (11.2-15.7); Lymphocytes # (Auto) 2.27 K/mcL (1.50-4.80); Lymphocytes % (Auto) 46.7 % (15.5-49.0); Mean Cell Volume 90.6 fL (80.0-100.0); Mean Corpuscular HGB Conc 33.6 g/dL (31.0-36.0); Mean Platelet Volume 11.2 fL (7.4-10.4); Monocytes # (Auto) 0.36 K/mcL (0.10-0.90); Monocytes % (Auto) 7.4 % (1.0-12.0); Neutrophils % (Auto) 42.2 % (38.0-78.0); Platelet Count 100 K/mcL (140-440); RBC 4.14 M/mcL (3.59-5.38); Red Cell Distribution Width 15.3 % (11.5-14.5); WBC 4.9 K/mcL (4.5-11.0)
[2021-12-09 06:41] LABS: Phosphorous 2.9 mg/dL (2.5-4.5)
[2021-12-09] MEDS: INSULIN LISPRO 1 UNIT/0.01 ML UNIT SQ SCH ×4 (08:34→21:48)
[2021-12-09] MEDS: POTASSIUM CHLORIDE 20 MEQ TABLET PO SCH ×2 (08:35→17:25)
[2021-12-09] MEDS: INSULIN GLARGINE, HUMAN 1 UNIT/0.01 ML SQ SCH ×2 (08:35→21:47)
[2021-12-09] MEDS: VITAMIN D3 25 MCG TABLET PO SCH (08:35)
[2021-12-09] MEDS: LEVOTHYROXINE 125 MCG TABLET PO SCH (08:36)
[2021-12-09] MEDS: VIT A,C & E/LUTEIN/MINERALS TABLET PO SCH (08:36)
[2021-12-09] MEDS: LACTOBACILLUS 1 CAPSULE PO SCH (08:36)
[2021-12-09] MEDS: MULTIVIT,THER IRON,CA,FA & MIN 1 TABLET PO SCH (08:36)
[2021-12-09] MEDS: LOSARTAN 50 MG TABLET PO SCH (08:36)
[2021-12-09] MEDS: GABAPENTIN 400 MG CAPSULE PO SCH ×4 (08:36→21:55)
[2021-12-09] MEDS: ZINC SULFATE 50 MG CAPSULE PO SCH (08:36)
[2021-12-09] MEDS: DOCUSATE SODIUM 100 MG CAPSULE PO SCH ×2 (08:36→21:55)
[2021-12-09] MEDS: DULoxetine 30 MG CAPSULE PO SCH (08:37)
[2021-12-09] MEDS: ENOXAPARIN 40 MG/0.4 ML SYRINGE SQ SCH (08:37)
[2021-12-09] MEDS: ACYCLOVIR 400 MG TABLET PO SCH ×2 (08:38→21:47)
[2021-12-09] MEDS: LIPASE PROTEASE AMYLASE PO SCH ×3 (08:54→21:55)
[2021-12-09] MEDS ORDERED: MAGNESIUM OXIDE 400 MG TABLET PO SCH (09:00)
--- NOTE | 2021-12-09 10:43 | Internal Med Progress Note ---
SUBJECTIVE Subjective Patient information: Note initiated : 12/09/21 at 10:36 am Service Date, if different from initiated Date: [] Patient: Tennille Castillo a 76 y/o F admitted on 12/04/21 for Blood sugar reads HI. Chief Complaint: [] Principal diagnosis: Elevated blood sugars Interval history: Ms. Castillo is a 76 year old F past medical history of type 2 diabetes mellitus, depression with anxiety, chronic pancreatitis, hypothyroidism, essential HTN, presenting with 1 week history of general body weakness, abdominal pain, decreased food intake, and nausea. Last prior episode of DKA was about a year ago. Over the past week, patient has experienced gradual onset, gradually worsening nature of general body weakness, abdominal pain mostly in the left upper and lower quadrants, 10 out of 10 in severity, aching, constant, as well as decreased food intake and nausea without vomiting. As a result, patient has not been compliant with her insulin regimen which comprise of Tresiba 30 units twice daily as well as sliding scale insulin. Initial lab works in the ED significant for glucose of 697, serum bicarb of 9, anion gap of 18, and beta hydroxybutyrate of 10.86, suggestive of another episode of diabetic ketoacido sis. 12/05: Insulin drip was being switched off last evening. Fasting glucose level 214. Tolerating CC diet. Denies nausea or vomiting. Denies abdominal pain. Continue SQ insulin therapy. Transfer from ICU to med surg. 12/06: Fasting glucose 114. Good appetite, tolerating oral feeding. Denies GI symptoms such as nausea or vomiting. Denies abdominal pain. Continue SQ insulin therapy. Pending SNF placement. 12/07: Fasting glucose 124. Good appetite, tolerating oral feeding. Denies GI symptoms such as nausea or vomiting. Denies abdominal pain. Continue SQ insulin therapy. Medically cleared, pending SNF placement. 12/08: No new sx or complaints. Eating well. Awaiting SNF placement. 12/09- Some sharp chest pain that started this morning. 01/23- substernal. Non radiating. No hx of cardiac pathology. No SOB or dyspnea. Constitutional Vitals: Vital Signs Temp Pulse Resp BP Pulse Ox 97.2 F 83 16 135/64 96 12/09/21 07:35 12/09/21 07:35 12/09/21 07:35 12/09/21 07:35 12/09/21 07:35 Period Temp Pulse Resp BP Sys/Rosario Pulse Ox Last 24 Hr 97.2 F-98.3 F 79-88 16-20 135-154/64-88 92-96 Intake and Output 12/08/21 12/09/21 12/09/21 21:59 05:59 13:59 Intake Total 490 450 0 Output Total 800 800 Balance -310 -350 0 Weight 77.247 kg Intake & Output: Intake & Output 12/08/21 12/09/21 12/09/21 21:59 05:59 13:59 Intake Total 490 450 0 Output Total 800 800 Balance -310 -350 0 Weight 77.247 kg Intake: Oral 490 450 0 Output: Void Amount 800 800 Other: Meal Dinner Breakfast Percent of Meal Consumed 100% 100% Feeding Ability Independent Urine Appearance Clear Clear Urine Color Pale Pale Bright Yellow Urine Odor Normal Normal General appearance: average body habitus, cooperative and no acute distress Head Head exam: Present atraumatic and normocephalic Eye Eye exam: Present normal appearance Respiratory Respiratory exam: Present normal respiratory exam and CTAB; Absent accessory muscle use, decreased breath sounds or respiratory distress Cardiovascular Cardiovascular exam: Present normal rate and rhythm and RRR; Absent bradycardia, gallop, systolic murmur or tachycardia GI/Abdominal GI/Abdominal exam: Present soft Neurological Exam Neurological exam: Present alert and oriented X3; Absent altered or motor sensory deficit OBJ DATA Labs CBC & Chem 7: 12/09/21 05:07 12/08/21 05:14 Labs: Abnormal Lab Results 12/09/21 12/08/21 12/08/21 05:07 05:14 05:14 WBC RDW 15.3 H 14.9 H Plt Count 100 L 101 L MPV 11.2 H 11.3 H Lymph % (Auto) Potassium 3.2 L Carbon Dioxide 32 H Anion Gap 7.0 L BUN Creatinine 0.5 L Glucose 167 H Calcium Phosphorus 1.9 L AST 207 H ALT 90 H Alkaline Phosphatase 130 H Total Protein 12/07/21 12/07/21 12/06/21 05:31 05:31 05:14 WBC 4.1 L RDW 15.1 H 15.9 H Plt Count 97 L 118 L MPV 11.3 H 12.4 H Lymph % (Auto) 50.9 H Potassium 3.2 L Carbon Dioxide Anion Gap BUN 7 L Creatinine Glucose 147 H Calcium 8.4 L Phosphorus 1.7 L AST 205 H ALT 80 H Alkaline Phosphatase 125 H Total Protein 5.5 L Meds: Medications Acetaminophen (Acetaminophen 325 Mg Tablet) 650 mg PO Q4-6HP PRN; Protocol PRN Reason: Per Pain Protocol/Fever > 101 Last Admin: 12/08/21 21:19 Dose: 650 mg Documented by: Acyclovir (Acyclovir 400 Mg Tablet) 400 mg PO BID [facility]; Protocol Last Admin: 12/09/21 08:38 Dose: 400 mg Documented by: Albuterol/Ipratropium (Ipratropium/Albuterol 3 Ml Ampul.Neb) 3 ml NEB Q4HRT PRN PRN Reason: Wheezing Atorvastatin Calcium (Atorvastatin 40 Mg Tablet) 40 mg PO QHS [facility] Last Admin: 12/08/21 21:20 Dose: 40 mg Documented by: Dextrose (Dextrose 50% 50 Ml Vial) 0 ml IV UD PRN PRN Reason: Per Sliding Scale Diagnostic Test (Pha) (Accu-Chek 1 Each Strip) 1 each FS ACHS [facility] Last Admin: 12/09/21 07:25 Dose: 1 each Documented by: Docusate Sodium (Docusate Sodium 100 Mg Capsule) 100 mg PO BID [facility] Last Admin: 12/09/21 08:36 Dose: 100 mg Documented by: Duloxetine HCl (Duloxetine 30 Mg Capsule) 30 mg PO QDAY [facility] Last Admin: 12/09/21 08:37 Dose: 30 mg Documented by: Enoxaparin Sodium (Enoxaparin 40 Mg/0.4 Ml Syringe) 40 mg SQ DAILY [facility] Last Admin: 12/09/21 08:37 Dose: 40 mg Documented by: Gabapentin (Gabapentin 400 Mg Capsule) 800 mg PO QID [facility] Last Admin: 12/09/21 08:36 Dose: 800 mg Documented by: Glucose (Dextrose 31 Gm Oral.Susp) 15 gm PO PRN PRN PRN Reason: Hypoglycemia Hyoscyamine (Hyoscyamine Sulfate 0.125 Mg Tablet) 0.125 mg PO Q6HP PRN PRN Reason: Secretions Last Admin: 12/09/21 04:34 Dose: 0.125 mg Documented by: Potassium Chloride 20 meq/ (Dextrose) 260 mls @ 130 mls/hr IV UD PRN PRN Reason: hypokalemia Potassium Phosphate 40 meq/ (Dextrose) 509.0909 mls @ 127.273 mls/hr IV UD PRN PRN Reason: Hypokalemia Insulin Glargine (Insulin Glargine, Human 1 Unit/0.01 Ml) 40 unit SQ BID [facility] Last Admin: 12/09/21 08:35 Dose: 40 unit Documented by: Insulin Human Lispro (Insulin Lispro 1 Unit/0.01 Ml Unit) 0 unit SQ ACHS [facility]; Protocol Last Admin: 12/09/21 08:34 Dose: 9 unit Documented by: Iron Carb/Multivit/[place]/Folic Acid (Multivit,Ther Iron,Ca,Fa & Min 1 Tablet) 1 tab PO DAILY [facility] Last Admin: 12/09/21 08:36 Dose: 1 tab Documented by: Lactobacillus Rhamnosus (Lactobacillus 1 Capsule) 2 cap PO QDAY [facility] Last Admin: 12/09/21 08:36 Dose: 2 cap Documented by: Levothyroxine Sodium (Levothyroxine 125 Mcg Tablet) 125 mcg PO QAMAC [facility] Last Admin: 12/09/21 08:36 Dose: 125 mcg Documented by: Losartan Potassium (Losartan 50 Mg Tablet) 50 mg PO QDAY [facility] Last Admin: 12/09/21 08:36 Dose: 50 mg Documented by: Metoclopramide HCl (Metoclopramide 10 Mg/2 Ml Vial) 10 mg IV Q6HP PRN PRN Reason: Nausea And Vomiting Morphine Sulfate (Morphine 4 Mg/Ml Vial) 4 mg IV Q2HP PRN; Protocol PRN Reason: Per Pain Protocol Multivitamins/Minerals (Vit A,C & E/Lutein/Minerals Tablet) 1 tab PO DAILY [facility] Last Admin: 12/09/21 08:36 Dose: 1 tab Documented by: Ondansetron HCl (Ondansetron 4 Mg/2 Ml Vial) 4 mg IV Q4-6HP PRN; Protocol PRN Reason: Nausea And Vomiting Oxycodone HCl (Oxycodone Hcl 5 Mg Tablet) 10 mg PO Q6HP PRN; Protocol PRN Reason: Per Pain Protocol Last Admin: 12/09/21 04:31 Dose: 10 mg Documented by: Lipase-Protease- Amylase [Zenpep] 40, 000-126,000-168,000 Cap 1 dose PO TID [facility] Last Admin: 12/09/21 08:54 Dose: 1 dose Documented by: Polyethylene Glycol (Polyethylene Glycol 3350 17 Gm Packet) 17 gm PO DAILYP PRN PRN Reason: Constipation Last Admin: 12/08/21 09:22 Dose: 17 gm Documented by: Potassium Chloride ([facility] Stop: 12/10/21 23:59 Last Admin: 12/09/21 08:35 Dose: 40 meq Documented by: Senna (Sennosides 1 Tablet) 1 tab PO DAILYP PRN PRN Reason: Constipation Sodium Chloride (0.9 % Sodium Chloride 10 Ml Syringe) 10 ml IV Q8 [facility] Last Admin: 12/09/21 04:01 Dose: 10 ml Documented by: Trazodone HCl (Trazodone Hcl 100 Mg Tablet) 100 mg PO HSP PRN PRN Reason: insomnia Vitamin D (Vitamin D3 25 Mcg Tablet) 50 mcg PO DAILY [facility] Last Admin: 12/09/21 08:35 Dose: 50 mcg Documented by: Zinc Sulfate (Zinc Sulfate 50 Mg Capsule) 50 mg PO QDAY [facility] Last Admin: 12/09/21 08:36 Dose: 50 mg Documented by: ABG Interpretation ABG results: 12/03/21 23:20 ABG Methemoglobin 0.3 L VBG pH 7.46 H VBG pCO2 34.9 L VBG pO2 149.7 H VBG HCO3 24.5 VBG Total CO2 25.6 VBG O2 Saturation 89.3 H VBG Base Excess 1 A/P Narrative A/P Narrative: 1. DKA type II: inpatient med surg Insulin Lantus 30 unit BID SSI AC HS Accu Chek AC HS HgA1c 12.9 Hypoglycemia protocol Diabetes education 2. Essential HTN: Currently normotensive Losartan 3. Hypothyroidism: Continue thyroid replacement therapy 4. Depression with anxiety: Cymbalta 5. Chronic pancreatitis: Lipase level Probiotics Zenpep 6. Hypomagnesemia:Hypokalemia Mg rider. PO 40 meq BID for another 3 days. Trend serum Mg level daily 7. Chest pain. Ordered EKG and troponin. CXR on 12/03- WNL. GI ppx: not currently indicated DVT ppx: Lovenox Code status: Full Prognosis: stable Disposition: inpatient med surg; pending SNF placement Time Spent With Patient Time: Total time spent is greater than 50% in coordination of care (as documented) at patient's floor/unit and/or counseling patient: Total time spent with greater than 50% in coordination of care (as documented) at patient's floor/unit and/or counseling patient:: 25 - 35 minutes
[2021-12-09] MEDS: ACETAMINOPHEN 325 MG TABLET PO PRN ×2 (14:52→23:49)
[2021-12-09] MEDS: morphine 4 MG/ML VIAL IV PRN ×2 (18:53→23:49)
[2021-12-09] MEDS: ATORVASTATIN 40 MG TABLET PO SCH (21:47)
[2021-12-10] MEDS: traZODone HCL 100 MG TABLET PO PRN ×2 (03:18→20:56)
[2021-12-10] MEDS: 0.9 % SODIUM CHLORIDE 10 ML SYRINGE IV SCH ×3 (05:09→20:57)
[2021-12-10] MEDS: morphine 4 MG/ML VIAL IV PRN (05:41)
[2021-12-10] MEDS: POTASSIUM CHLORIDE 20 MEQ TABLET PO SCH ×2 (07:05→17:25)
[2021-12-10] MEDS: LEVOTHYROXINE 125 MCG TABLET PO SCH (07:05)
[2021-12-10] MEDS: ACETAMINOPHEN 325 MG TABLET PO PRN ×2 (07:06→16:30)
[2021-12-10] MEDS: INSULIN LISPRO 1 UNIT/0.01 ML UNIT SQ SCH ×4 (07:36→20:56)
[2021-12-10] MEDS: INSULIN GLARGINE, HUMAN 1 UNIT/0.01 ML SQ SCH ×2 (08:53→20:55)
[2021-12-10] MEDS: ACYCLOVIR 400 MG TABLET PO SCH ×2 (08:54→20:55)
[2021-12-10] MEDS: DULoxetine 30 MG CAPSULE PO SCH (08:54)
[2021-12-10] MEDS: VITAMIN D3 25 MCG TABLET PO SCH (08:54)
[2021-12-10] MEDS: LACTOBACILLUS 1 CAPSULE PO SCH (08:54)
[2021-12-10] MEDS: ZINC SULFATE 50 MG CAPSULE PO SCH (08:54)
[2021-12-10] MEDS: GABAPENTIN 400 MG CAPSULE PO SCH ×4 (08:54→21:00)
[2021-12-10] MEDS: MULTIVIT,THER IRON,CA,FA & MIN 1 TABLET PO SCH (08:54)
[2021-12-10] MEDS: VIT A,C & E/LUTEIN/MINERALS TABLET PO SCH (08:54)
--- NOTE | 2021-12-10 09:11 | Internal Med Progress Note ---
SUBJECTIVE Subjective Patient information: Note initiated : 12/10/21 at 9:06 am Service Date, if different from initiated Date: [] Patient: Tennille Castillo a 76 y/o F admitted on 12/04/21 for Blood sugar reads HI. Chief Complaint: [] Principal diagnosis: Elevated blood sugars Interval history: Ms. Castillo is a 76 year old F past medical history of type 2 diabetes mellitus, depression with anxiety, chronic pancreatitis, hypothyroidism, essential HTN, presenting with 1 week history of general body weakness, abdominal pain, decreased food intake, and nausea. Last prior episode of DKA was about a year ago. Over the past week, patient has experienced gradual onset, gradually worsening nature of general body weakness, abdominal pain mostly in the left upper and lower quadrants, 10 out of 10 in severity, aching, constant, as well as decreased food intake and nausea without vomiting. As a result, patient has not been compliant with her insulin regimen which comprise of Tresiba 30 units twice daily as well as sliding scale insulin. Initial lab works in the ED significant for glucose of 697, serum bicarb of 9, anion gap of 18, and beta hydroxybutyrate of 10.86, suggestive of another episode of diabetic ketoacidos is. 12/05: Insulin drip was being switched off last evening. Fasting glucose level 214. Tolerating CC diet. Denies nausea or vomiting. Denies abdominal pain. Continue SQ insulin therapy. Transfer from ICU to med surg. 12/06: Fasting glucose 114. Good appetite, tolerating oral feeding. Denies GI symptoms such as nausea or vomiting. Denies abdominal pain. Continue SQ insulin therapy. Pending SNF placement. 12/07: Fasting glucose 124. Good appetite, tolerating oral feeding. Denies GI symptoms such as nausea or vomiting. Denies abdominal pain. Continue SQ insulin therapy. Medically cleared, pending SNF placement. 12/08: No new sx or complaints. Eating well. Awaiting SNF placement. 12/09- Some sharp chest pain that started this morning. 01/23- substernal. Non radiating. No hx of cardiac pathology. No SOB or dyspnea. 12/10Chest pain has resolved. Unremarkable work-up with negative troponin This morning she reports severe headache mostly frontal, 8 out of 10 in severity, radiating to the back and to her neck. She also describes a floater in her left eye which has been bothering her for a few days now. She says she has never had headaches in the past and this concerns her. Denies any other focal neurological deficits. The only pertinent medical history that I was able to find on chart review was thoracic compression fracture status post vertebroplasty. This does not appear to be from migraines. Perhaps tension headaches/giant cell arteritis/other cerebral pathology. Ordered MRI of the brain with contrast. Do not suspect meningitis since afebrile. No evidence of neck st iffness. She also has poor dentition and complains of worsening dental pain. Ordered Peridex rinses. Her blood pressure this morning is soft 90s over 80s. Has some dizziness and lightheadedness. For the newer issues are headaches, lightheadedness, hypotension and poor dentition. Ordered blood culture, CRP, ESR .- Constitutional Vitals: Vital Signs Temp Pulse Resp BP Pulse Ox 97.2 F 94 H 20 93/82 93 12/10/21 06:54 12/10/21 00:00 12/10/21 06:54 12/10/21 06:54 12/10/21 06:54 Period Temp Pulse Resp BP Sys/Rosario Pulse Ox Last 24 Hr 97.2 F-98.2 F 85-94 16-20 93-131/67-82 93-97 Intake and Output 12/09/21 12/10/21 12/10/21 21:59 05:59 13:59 Intake Total 1000 1984 Output Total 1 Balance 1000 1983 Weight 77.247 kg Intake & Output: Intake & Output 12/09/21 12/10/21 12/10/21 21:59 05:59 13:59 Intake Total 1000 1984 Output Total 1 Balance 1000 1983 Weight 77.247 kg Intake: Oral 1000 1984 Output: # of times incontinent of urine 1 Other: Meal Dinner Percent of Meal Consumed 100% Feeding Ability Independent Urine Appearance Clear Clear Urine Color Pale Pale Urine Odor Normal Stool Size Small Small Stool Color Brown Brown Stool Consistency Dry and Hard Dry and Hard # Voids 1 1 General appearance: average body habitus, cooperative and no acute distress Head Head exam: Present atraumatic and normocephalic Eye Eye exam: Present normal appearance Respiratory Respiratory exam: Present normal respiratory exam and CTAB; Absent accessory m uscle use, decreased breath sounds or respiratory distress Cardiovascular Cardiovascular exam: Present normal rate and rhythm and RRR; Absent bradycardia, gallop, systolic murmur or tachycardia GI/Abdominal GI/Abdominal exam: Present soft Neurological Exam Neurological exam: Present alert and oriented X3; Absent altered or motor sensory deficit OBJ DATA Labs CBC & Chem 7: 12/09/21 05:07 12/08/21 05:14 Labs: Abnormal Lab Results 12/09/21 12/08/21 12/08/21 05:07 05:14 05:14 RDW 15.3 H 14.9 H Plt Count 100 L 101 L MPV 11.2 H 11.3 H Potassium 3.2 L Carbon Dioxide 32 H Anion Gap 7.0 L Creatinine 0.5 L Glucose 167 H Phosphorus 1.9 L AST 207 H ALT 90 H Alkaline Phosphatase 130 H Meds: Medications Acetaminophen (Acetaminophen 325 Mg Tablet) 650 mg PO Q4-6HP PRN; Protocol PRN Reason: Per Pain Protocol/Fever > 101 Last Admin: 12/10/21 07:06 Dose: 650 mg Documented by: Acetaminophen/Butalbital/Caffeine (Butalb/Acetaminophen/Caffeine 1 Tablet) 1 tab PO Q6HP PRN PRN Reason: Headache Acyclovir (Acyclovir 400 Mg Tablet) 400 mg PO BID [facility]; Protocol Last Admin: 12/10/21 08:54 Dose: 400 mg Documented by: Albuterol/Ipratropium (Ipratropium/Albuterol 3 Ml Ampul.Neb) 3 ml NEB Q4HRT PRN PRN Reason: Wheezing Atorvastatin Calcium (Atorvastatin 40 Mg Tablet) 40 mg PO QHS [facility] Last Admin: 12/09/21 21:47 Dose: 40 mg Documented by: Dextrose (Dextrose 50% 50 Ml Vial) 0 ml IV UD PRN PRN Reason: Per Sliding Scale Diagnostic Test (Pha) (Accu-Chek 1 Each Strip) 1 each FS ACHS [facility] Last Admin: 12/10/21 07:24 Dose: 1 each Documented by: Docusate Sodium (Docusate Sodium 100 Mg Capsule) 100 mg PO BID [facility] Last Admin: 12/09/21 21:55 Dose: 100 mg Documented by: Duloxetine HCl (Duloxetine 30 Mg Capsule) 30 mg PO QDAY [facility] Last Admin: 12/10/21 08:54 Dose: 30 mg Documented by: Enoxaparin Sodium (Enoxaparin 40 Mg/0.4 Ml Syringe) 40 mg SQ DAILY [facility] Last Admin: 12/09/21 08:37 Dose: 40 mg Documented by: Gabapentin (Gabapentin 400 Mg Capsule) 800 mg PO QID [facility] Last Admin: 12/10/21 08:54 Dose: 800 mg Documented by: Glucose (Dextrose 31 Gm Oral.Susp) 15 gm PO PRN PRN PRN Reason: Hypoglycemia Hyoscyamine (Hyoscyamine Sulfate 0.125 Mg Tablet) 0.125 mg PO Q6HP PRN PRN Reason: Secretions Last Admin: 12/09/21 04:34 Dose: 0.125 mg Documented by: Potassium Chloride 20 meq/ (Dextrose) 260 mls @ 130 mls/hr IV UD PRN PRN Reason: hypokalemia Potassium Phosphate 40 meq/ (Dextrose) 509.0909 mls @ 127.273 mls/hr IV UD PRN PRN Reason: Hypokalemia Insulin Glargine (Insulin Glargine, Human 1 Unit/0.01 Ml) 40 unit SQ BID [facility] Last Admin: 12/10/21 08:53 Dose: 40 unit Documented by: Insulin Human Lispro (Insulin Lispro 1 Unit/0.01 Ml Unit) 0 unit SQ ACHS [facility]; Protocol Last Admin: 12/10/21 07:36 Dose: 6 unit Documented by: Iron Carb/Multivit/[place]/Folic Acid (Multivit,Ther Iron,Ca,Fa & Min 1 Tablet) 1 tab PO DAILY [facility] Last Admin: 12/10/21 08:54 Dose: 1 tab Documented by: Lactobacillus Rhamnosus (Lactobacillus 1 Capsule) 2 cap PO QDAY [facility] Last Admin: 12/10/21 08:54 Dose: 2 cap Documented by: Levothyroxine Sodium (Levothyroxine 125 Mcg Tablet) 125 mcg PO QAMAC [facility] Last Admin: 12/10/21 07:05 Dose: 125 mcg Documented by: Metoclopramide HCl (Metoclopramide 10 Mg/2 Ml Vial) 10 mg IV Q6HP PRN PRN Reason: Nausea And Vomiting Morphine Sulfate (Morphine 4 Mg/Ml Vial) 4 mg IV Q2HP PRN; Protocol PRN Reason: Per Pain Protocol Last Admin: 12/10/21 05:41 Dose: 4 mg Documented by: Multivitamins/Minerals (Vit A,C & E/Lutein/Minerals Tablet) 1 tab PO DAILY [facility] Last Admin: 12/10/21 08:54 Dose: 1 tab Documented by: Ondansetron HCl (Ondansetron 4 Mg/2 Ml Vial) 4 mg IV Q4-6HP PRN; Protocol PRN Reason: Nausea And Vomiting Oxycodone HCl (Oxycodone Hcl 5 Mg Tablet) 10 mg PO Q6HP PRN; Protocol PRN Reason: Per Pain Protocol Last Admin: 12/09/21 12:17 Dose: 10 mg Documented by: Lipase-Protease- Amylase [Zenpep] 40, 000-126,000-168,000 Cap 1 dose PO TID [facility] Last Admin: 12/09/21 21:55 Dose: 1 dose Documented by: Polyethylene Glycol (Polyethylene Glycol 3350 17 Gm Packet) 17 gm PO DAILYP PRN PRN Reason: Constipation Last Admin: 12/08/21 09:22 Dose: 17 gm Documented by: Potassium Chloride (Potassium Chloride 20 Meq Tablet) 40 meq PO BIDCC [facility] Stop: 12/10/21 23:59 Last Admin: 12/10/21 07:05 Dose: 40 meq Documented by: Senna (Sennosides 1 Tablet) 1 tab PO DAILYP PRN PRN Reason: Constipation Sodium Chloride (0.9 % Sodium Chloride 10 Ml Syringe) 10 ml IV Q8 [facility] Last Admin: 12/10/21 05:09 Dose: 10 ml Documented by: Trazodone HCl (Trazodone Hcl 100 Mg Tablet) 100 mg PO HSP PRN PRN Reason: insomnia Last Admin: 12/10/21 03:18 Dose: 100 mg Documented by: Vitamin D (Vitamin D3 25 Mcg Tablet) 50 mcg PO DAILY [facility] Last Admin: 12/10/21 08:54 Dose: 50 mcg Documented by: Zinc Sulfate (Zinc Sulfate 50 Mg Capsule) 50 mg PO QDAY [facility] Last Admin: 12/10/21 08:54 Dose: 50 mg Documented by: ABG Interpretation ABG results: 12/03/21 23:20 ABG Methemoglobin 0.3 L VBG pH 7.46 H VBG pCO2 34.9 L VBG pO2 149.7 H VBG HCO3 24.5 VBG Total CO2 25.6 VBG O2 Saturation 89.3 H VBG Base Excess 1 A/P Narrative A/P Narrative: # DKA type II: inpatient med surg Insulin Lantus 40 unit BID SSI AC HS Accu Chek AC HS HgA1c 12.9 Hypoglycemia protocol Diabetes education . #Severe headache, bilateral Ordered MRI brain with contrast. Doubt infectious etiology. Suspect either g iant cell arteritis or other pathology (rule out tumor/bleed) As needed oxycodone. Also wonder if polypharmacy is contributing to her headaches. She is on high dose of gabapentin, oxycodone 10 mg, Afebrile and no neck stiffness, low suspicion for meningitis. Once MRI is performed, if it fails to reveal any pathology and if she continues to have symptoms, will consider lumbar puncture at that time. Also suspect poor dentition, translocation of bacteria from mouth. Ordered blood cultures, ESR, CRP. 2. Essential HTN: Currently normotensive Blood pressure is low. Hold losartan. 3. Hypothyroidism: Continue thyroid replacement therapy 4. Depression with anxiety: Cymbalta 5. Chronic pancreatitis: Lipase level Probiotics Zenpep 6. Hypomagnesemia:Hypokalemia Mg rider. PO 40 meq BID for another 3 days. Trend serum Mg level daily 7. Chest pain. Ordered EKG and troponin. CXR on 12/03- WNL. Unsure about the indications for acyclovir therapy. Continue for now. GI ppx: not currently indicated DVT ppx: Lovenox Code status: Full Prognosis: stable Time Spent With Patient Time: Total time spent is greater than 50% in coordination of care (as documented) at patient's floor/unit and/or counseling patient: Total time spent with greater than 50% in coordination of care (as documented) at patient's floor/unit and/or counseling patient:: 35 - 50 minutes Critical Care Time: No
[2021-12-10] MEDS: LIPASE PROTEASE AMYLASE PO SCH ×3 (09:25→20:57)
[2021-12-10] MEDS: DOCUSATE SODIUM 100 MG CAPSULE PO SCH ×2 (09:25→20:55)
[2021-12-10] MEDS: ENOXAPARIN 40 MG/0.4 ML SYRINGE SQ SCH (09:25)
--- NOTE | 2021-12-10 10:37 | EKG ---
[facility] Test Date: 2021-12-09 Pat Name: Tennille Castillo Department: MED[facility] Room: 108 Gender: Female Trouble Tracer: : 1945 Requested By: Bia Danielson Order Number: [id number] Reading MD: Danny Milian Measurements Intervals Swan Rate: 81 P: 52 TN: 167 QRS: 28 QRSD: 85 T: 114 QT: 384 QTc: 446 Interpretive Statements Sinus rhythm Probable left atrial enlargement Nonspecific T abnormalities, lateral leads Electronically Signed On 12-10-2021 10:36:54 PDT by Danny Milian /store/M0/[id number]
[2021-12-10] MEDS: BUTALB/ACETAMINOPHEN/CAFFEINE 1 TABLET PO PRN ×2 (12:03→18:51)
--- NOTE | 2021-12-10 17:15 | Cat Scan Report ---
History: Headaches, diabetes TECHNIQUE: The brain was imaged without contrast in axial plane at 2.5 mm The radiation exposure was limited using dose reduction technology. FINDINGS: There are stable chronic age-related degenerative changes with mild to moderate frontal lobe atrophy and mild temporal and parietal lobe atrophy. Subtle areas of decreased attenuation in the white matter predominantly involving the frontal lobes, consistent with age-related ischemia or degeneration. There is no evidence of an infarct, hemorrhage or mass effect. The ventricles are normal in size allowing for atrophy. No abnormal extra-axial fluid collection is present. There is concentric thickening mccullough of the sphenoid sinuses and a few ethmoid air cells. The sphenoid sinusitis is unchanged from 09/20/21. The ethmoid sinusitis has improved and previously seen left maxillary sinusitis has resolved. Bone windows show no skull lesion. No abnormality is seen within the orbits. IMPRESSION: Stable age-related degenerative changes and no acute abnormality Interpreted and Authenticated by: Allan Lawler 12/10/21
[2021-12-10] MEDS: HYOSCYAMINE SULFATE 0.125 MG TABLET PO PRN (19:04)
[2021-12-10] MEDS: ATORVASTATIN 40 MG TABLET PO SCH (20:55)
[2021-12-10] MEDS: CHLORHEXIDINE GLUCONATE 1 ML ORAL.SOL SWABMOUTH SCH (20:57)
[2021-12-11] MEDS: 0.9 % SODIUM CHLORIDE 10 ML SYRINGE IV SCH ×2 (05:16→12:46)
[2021-12-11] MEDS: ACYCLOVIR 400 MG TABLET PO SCH (09:06)
[2021-12-11] MEDS: DOCUSATE SODIUM 100 MG CAPSULE PO SCH (09:06)
[2021-12-11] MEDS: LACTOBACILLUS 1 CAPSULE PO SCH (09:06)
[2021-12-11] MEDS: MULTIVIT,THER IRON,CA,FA & MIN 1 TABLET PO SCH (09:06)
[2021-12-11] MEDS: VIT A,C & E/LUTEIN/MINERALS TABLET PO SCH (09:06)
[2021-12-11] MEDS: LEVOTHYROXINE 125 MCG TABLET PO SCH (09:06)
[2021-12-11] MEDS: GABAPENTIN 400 MG CAPSULE PO SCH ×3 (09:06→17:10)
[2021-12-11] MEDS: ENOXAPARIN 40 MG/0.4 ML SYRINGE SQ SCH (09:07)
[2021-12-11] MEDS: INSULIN GLARGINE, HUMAN 1 UNIT/0.01 ML SQ SCH (09:07)
[2021-12-11] MEDS: LIPASE PROTEASE AMYLASE PO SCH ×2 (09:07→17:11)
[2021-12-11] MEDS: DULoxetine 30 MG CAPSULE PO SCH (09:07)
[2021-12-11] MEDS: VITAMIN D3 25 MCG TABLET PO SCH (09:08)
[2021-12-11] MEDS: ZINC SULFATE 50 MG CAPSULE PO SCH (09:08)
[2021-12-11] MEDS: CHLORHEXIDINE GLUCONATE 1 ML ORAL.SOL SWABMOUTH SCH (09:08)
[2021-12-11] MEDS: INSULIN LISPRO 1 UNIT/0.01 ML UNIT SQ SCH ×3 (09:12→17:10)
[2021-12-11] MEDS ORDERED: GADOBENATE DIMEGLUMINE 20 ML/VIAL IV ONE (11:52)
--- NOTE | 2021-12-11 12:04 | Magnetic Resonance Report ---
CLINICAL INFORMATION: Headaches COMPARISON: None. TECHNIQUE: Sagittal T1 FLAIR, axial diffusion ADC, T1 FLAIR, T2 FLAIR propeller, T2 propeller gradient, T1 post Magnevist and coronal T1 FLAIR post Magnevist images were acquired. FINDINGS: The ventricles, sulci, fissures and cisterns are symmetrically enlarged enlarged compatible with mild age-related atrophy. There are no extra-axial fluid collections or mass are appreciated. Small scattered chronic senescent ischemic foci in the deep cerebral white matter with confluence in the paraventricular region are expected for age. There are no regions of restricted diffusion, hemorrhage, edema or abnormal enhancement.The signal void in intracerebral arteries, extra-axial cranial nerves, pituitary, and orbits are unremarkable. Mild mucosal thickening is present in the sphenoid sinuses minimal ethmoid mucosal thickening is likely physiologic. IMPRESSION: Mild atrophy and chronic ischemic changes throughout white matter-expected for age. Mild sphenoid sinusitis Interpreted and Authenticated by: Will Brito 12/11/21
--- NOTE | 2021-12-11 15:13 | Discharge Summary ---
Discharge Provider Provider Patient information: Note initiated : 12/11/21 at 3:08 pm Service Date, if different from initiated Date: [] Patient: Tennille Castillo 76 y/o F admitted on 12/04/21 for Blood sugar reads HI. Chief Complaint: [] Date of admission: 12/04/21 05:23 Discharge date: 12/11/21 Primary care physician: Faye Porras DO Consults: 12/04/21 Consult to Physician [CONS] Stat Comment: Consulting Provider: Devon Mcdaniel Reason For Exam: Physician to Consult 12/05/21 12:40 Consult to Physician [CONS] Routine Comment: snf referral Consulting Provider: [facility] Reason For Exam: Physician to Consult Attending physician on discharge: Bia Danielson Discharging clinician: Bia Danielson Discharge Meds Discharge Medications Home Medications insulin regular human 100 unit/mL injection solution (Novolin R Regular U-100 Insulin) See Rx Instructions .ROUTE .COMPLEX 09/18/17 [History Confirmed 12/04/21 Last Taken 07/15/18] atorvastatin 40 mg tablet 40 mg PO QHS 06/01/21 [History Confirmed 12/04/21 Last Taken Unknown] anbevo-ivxcvhma-pywvtem 40,000-126,000-168,000 unit capsule, delay rel (Zenpep) 40,000 cap PO TID 06/01/21 [History Confirmed 12/04/21 Last Taken 12/02/21] Lactobacillus acidophilus (Acidophilus) 2 tab PO BID tab 07/15/21 [History Confirmed 12/04/21 Last Taken 12/02/21] hyoscyamine sulfate 0.125 mg sublingual tablet 0.125 mg PO Q6H PRN tab 07/15/21 [History Confirmed 12/04/21 Last Taken 12/02/21] multivit gbc-ngnx-BC-herb 186 [Hair, Skin and Nails Advanced] 1 tab PO DAILY 07/15/21 [History Confirmed 12/04/21 Last Taken 12/02/21] trazodone 100 mg tablet 100 mg PO HSP PRN 08/22/21 [History Confirmed 12/04/21 Last Taken 12/01/21] duloxetine 30 mg capsule,delayed release 30 mg PO QDAY 09/20/21 [History Confirmed 12/04/21 Last Taken 12/02/21] acyclovir 400 mg tablet 1 tab PO BID 09/21/21 [History Confirmed 12/04/21 Last Taken 12/02/21] gabapentin 800 mg tablet 1 tab PO QID 09/21/21 [History Confirmed 12/04/21 Last Taken 12/02/21] insulin degludec 100 unit/mL subcutaneous solution (Tresiba U-100 Insulin) 30 unit (0.3 mL) SUBCUT BID #1 ml 09/22/21 [Rx Confirmed 12/04/21 Last Taken 12/01/21] cholecalciferol (vitamin D3) 50 mcg (2,000 unit) capsule (Vitamin D3) 50 mcg PO DAILY 12/04/21 [History Confirmed 12/04/21 Last Taken Unknown] levothyroxine 125 mcg tablet 1 tab PO QDAY 12/04/21 [History Confirmed 12/04/21 Last Taken Unknown] zinc 50 mg tablet 50 mg PO DAILY 12/04/21 [History Confirmed 12/04/21 Last Taken Unknown] COURSE Hospital Course Hospital course: Ms. Castillo is a 76 year old F past medical history of type 2 diabetes mellitus, depression with anxiety, chronic pancreatitis, hypothyroidism, essential HTN, presenting with 1 week history of general body weakness, abdominal pain, decreased food intake, and nausea. Last prior episode of DKA was about a year ago. Over the past week, patient has experienced gradual onset, gradually worsening nature of general body weakness, abdominal pain mostly in the left upper and lower quadrants, 10 out of 10 in severity, aching, constant, as well as decreased food intake and nausea without vomiting. As a result, patient has not been compliant with her insulin regimen which comprise of Tresiba 30 units twice daily as well as sliding scale insulin. Initial lab works in the ED significant for glucose of 697, serum bicarb of 9, anion gap of 18, and beta hydroxybutyrate of 10.86, suggestive of another episode of diabetic ketoacidosis. 12/05: Insulin drip was being switched off last evening. Fasting glucose level 214. Tolerating CC diet. Denies nausea or vomiting. Denies abdominal pain. Continue SQ insulin therapy. Transfer from ICU to med surg. 12/06: Fasting glucose 114. Good appetite, tolerating oral feeding. Denies GI symptoms such as nausea or vomiting. Denies abdominal pain. Continue SQ insulin therapy. Pending SNF placement. 12/07: Fasting glucose 124. Good appetite, tolerating oral feeding. Denies GI symptoms such as nausea or vomiting. Denies abdominal pain. Continue SQ insulin therapy. Medically cleared, pending SNF placement. 12/08: No new sx or complaints. Eating well. Awaiting SNF placement. 12/09- Some sharp chest pain that started this morning. 01/23- substernal. Non radiating. No hx of cardiac pathology. No SOB or dyspnea. 12/10Chest pain has resolved. Unremarkable work-up with negative troponin This morning she reports severe headache mostly frontal, 8 out of 10 in severity, radiating to the back and to her neck. She also describes a floater in her left eye which has been bothering her for a few days now. She says she has never had headaches in the past and this concerns her. Denies any other focal joanie rological deficits. The only pertinent medical history that I was able to find on chart review was thoracic compression fracture status post vertebroplasty. This does not appear to be from migraines. Perhaps tension headaches/giant cell arteritis/other cerebral pathology. Ordered MRI of the brain with contrast-unremarkable and no acute events. She also has poor dentition and complains of worsening dental pain. Ordered Peridex rinses. 12/11- Doing well. Wants to go home instead of SNF. Ambulated well with PT yesterday, cleared for discharge. Discharge diagnosis: Diabetic ketoacidosis Pertinent studies/significant findings: # DKA type II: inpatient med surg Insulin Lantus 40 unit BID HgA1c 12.9 Resume Tresiba 30 units twice daily with Novolin sliding scale on discharge . #Severe headache, bilateral Ordered MRI brain with contrast which ruled out acute pathology. Mild atrophy and chronic ischemic changes noted, this seems to be age appropriate and would not cause her any headaches. Doubt infectious etiology. Low suspicion for giant cell arteritis considering her normal ESR. As needed oxycodone. Also wonder if polypharmacy is contributing to her headaches. She is on high dose of gabapentin (she says her neuropathic pain is pretty severe and needs it) oxycodone 10 mg, Afebrile and no neck stiffness, low suspicion for meningitis. 2. Essential HTN: Currently normotensive Blood pressure is low. Stop losartan 3. Hypothyroidism: Continue thyroid replacement therapy 4. Depression with anxiety: Cymbalta 5. Chronic pancreatitis: Lipase level Probiotics Zenpep 6. Hypomagnesemia:Hypokalemia Mg rider. PO 40 meq BID for another 3 days. Trend serum Mg level daily 7. Chest pain. Ordered EKG and troponin. CXR on 12/03- WNL. Spontaneously resolved Time Spent with Patient Time attestation: Total time spent providing and/or coordinating discharge services: Time spent: Greater than 30 minutes EXAM Constitutional Vitals: Temp Pulse Resp BP Pulse Ox 97.3 F 82 16 135/79 95 12/11/21 12:06 12/11/21 12:06 12/11/21 12:06 12/11/21 12:06 12/11/21 12:06 General appearance: average body habitus, cooperative and no acute distress Head Head exam: Present atraumatic and normocephalic Eye Eye exam: Present normal appearance ENT ENT exam: Present mucous membranes moist Respiratory Respiratory exam: Present normal respiratory exam and CTAB; Absent accessory muscle use, rales, respiratory distress, stridor or wheezes Cardiovascular Cardiovascular exam: Present normal rate and rhythm and RRR; Absent bradycardia, diastolic murmur, gallop, irregular rhythm or rubs GI/Abdominal GI/Abdominal exam: Present normal bowel sounds and soft; Absent distended, guarding or rebound Expanded Lower Extremity Exam Hip exam: Present normal inspection; Absent swelling Back Exam Back exam: Present normal inspection; Absent CVA tenderness (L), CVA tenderness (R), paraspinal tenderness or vertebral tenderness Neurological Exam Neurological exam: Present alert and oriented X3; Absent abnormal gait or motor sensory deficit Discharge Data Data Completed and Pending Labs on day of discharge: Labs from last 24 hours 12/11/21 05:24 C-Reactive Protein < 0.30 Discharge Plan Patient/Caregiver Discharge Instructions Activity: as per physical therapy and increase activity as tolerated Diet: Consistent Carbohydrate Prescriptions: Continued Acidophilus Tablet,Chewable 2 tab PO BID 0RF hyoscyamine sulfate 0.125 mg tablet, sublingual 0.125 mg PO Q6H PRN (Reason: Abdominal Discomfort) 0RF multivit gls-vums-AC-herb 186 [Hair, Skin and Nails Advanced] 1 tab PO DAILY 0RF trazodone 100 mg tablet 100 mg PO HSP PRN (Reason: insomnia) 0RF Novolin R Regular U-100 Insuln 100 UNIT/ML solution See Rx Instructions unit .ROUTE .COMPLEX 0RF Protocol: Insulin Sliding Scale, High Condition: HUMALOG/NOVALOG SC SLIDING Dose/Route: SCALE Condition: FSBS < 70 Dose/Route: Give 4 Oz juice, or 15gm oral Instruction: Glucose, or 25ml D50W IV if Dose/Route: unable to take PO. Recheck in Instruction: 15 min and repeat if FSBS < 70 Condition: FSBS 71-140 Dose/Route: NO COVERAGE Condition: FSBS 141-170 Dose/Route: 3 UNITS Condition: FSBS 171-200 Dose/Route: 6 UNITS Condition: FSBS 201-250 Dose/Route: 9 UNITS Condition: FSBS 251-300 Dose/Route: 12 UNITS Condition: FSBS 301-350 Dose/Route: 15 UNITS Condition: FSBS 351-400 Dose/Route: 18 UNITS Condition: FSBS > 400 Dose/Route: 20 UNITS; REPEAT Q2H X2 Instruction: CONTINUE FOLLOWING SLIDING Condition: SCALE; IF STILL > 400; CALL Dose/Route: PHYSICIAN Rx Instructions: 70-139 none 140-180 4 units 181-240 6 Units 241-300 8 Units >300 Can't read instructions atorvastatin 40 mg tablet 40 mg PO QHS 0RF Label Comments: take 1 tablet by mouth at bedtime Zenpep 40,000-126,000- 168,000 unit capsule,delayed release(DR/EC) 40,000 cap PO TID 0RF Label Comments: take 1 capsule by mouth three times a day duloxetine 30 mg Capsule,Delayed Release(Dr/Ec) 30 mg PO QDAY 0RF acyclovir 400 mg tablet 1 tab PO BID 0RF gabapentin 800 mg tablet 1 tab PO QID 0RF Tresiba U-100 Insulin 100 unit/mL solution 30 unit SUBCUT BID Qty: 1 0RF levothyroxine 125 mcg tablet 1 tab PO QDAY 0RF zinc 50 mg Tablet 50 mg PO DAILY 0RF cholecalciferol (vitamin D3) [Vitamin D3] 50 mcg (2,000 unit) Capsule 50 mcg PO DAILY 0RF Discontinued losartan 50 mg tablet 50 mg PO QDAY 0RF Follow Up Plan Follow up with: Faye Porras DO [Primary Care Provider] - Patient Disposition: Home, Self-Care Prognosis: Serious Overall status at discharge: patient is back to baseline Discharge Orders: Discharge Order (Routine); Ordered 12/11/21 Ordered By: Bia Danielson
== END 2021-12-11 19:53 | disposition home or self-care (01) | DRG 638 ==
LOC: ED 21:49 → ICU 12-04 05:23 → MEDSUR 12-06 17:05
PROVIDERS: ADMIT Internal Medicine; ATTEND Internal Medicine Medical Oncology

== ENCOUNTER 2021-12-20 10:14 | Inpatient (IN) ==
[2021-12-20] MEDS ORDERED: IOPAMIDOL 100 ML BOTTLE IV ONE (10:15)
[2021-12-20] MEDS ORDERED: 0.9 % SODIUM CHLORIDE 1,000 ML IV ONE (10:31)
[2021-12-20] MEDS ORDERED: LACTATED RINGERS 1,000 ML IV ONE (10:31)
--- NOTE | 2021-12-20 10:46 | XRay Report ---
INDICATION: cough TECHNIQUE: AP portable chest x-ray COMPARISON: Previous chest x-rays dated 12/03/2021, 09/20/2021, 06/14/2021 FINDINGS: Lungs:Lungs are negative. No focal pulmonary parenchymal infiltrate or mass Heart, vascular:No significant cardiomegaly. Pulmonary vascularity is normal. No pulmonary edema or pulmonary congestion Mediastinum, leroy:No mediastinal widening. No hilar mass Pleura:No pleural fluid. No pleural-based mass or calcification Skeletal:Negative. IMPRESSION: 1. Negative AP portable chest x-ray 2. No significant interval change Interpreted and Authenticated by: Will Peck 12/20/21
[2021-12-20 11:35] LABS: POC Blood Urea Nitrogen 20 mg/dL (6-20); POC CO2 12 mmol/L (22-30); POC Calcium, Ionized 1.26 mmEq/L (1.16-1.32); POC Chloride 98 mEq/L (96-108); POC Creatinine 0.9 mg/dL (0.6-1.2); POC Glucose, Random > 700 mg/dL; POC Hematocrit 39 % (36-48); POC Potassium 4.8 mEql/L (3.3-5.1); POC Sodium 126 mEq/L (133-145)
[2021-12-20 12:04] LABS: Basophils # (Auto) 0.08 K/mcL (0.00-0.30); Basophils % (Auto) 1.2 % (0.0-2.0); Eosinophils % (Auto) 1.5 % (0.0-7.0); Hematocrit 38.7 % (34.1-44.9); Hemoglobin 12.5 g/dL (11.2-15.7); Lymphocytes # (Auto) 2.18 K/mcL (1.50-4.80); Lymphocytes % (Auto) 32.3 % (15.5-49.0); Mean Cell Volume 97.2 fL (80.0-100.0); Mean Corpuscular HGB Conc 32.3 g/dL (31.0-36.0); Mean Platelet Volume 10.5 fL (7.4-10.4); Monocytes # (Auto) 0.43 K/mcL (0.10-0.90); Monocytes % (Auto) 6.4 % (1.0-12.0); Neutrophils % (Auto) 58.6 % (38.0-78.0); Platelet Count 216 K/mcL (140-440); RBC 3.98 M/mcL (3.59-5.38); Red Cell Distribution Width 15.2 % (11.5-14.5); WBC 6.7 K/mcL (4.5-11.0)
--- NOTE | 2021-12-20 12:14 | Cat Scan Report ---
INDICATION: abd pain, dka COMPARISON: Previous examination dated 02/25/2018 TECHNIQUE: Axial images were obtained through the abdomen and pelvis. Sagittally and coronally reformatted images. 80 mL Isovue 370 injected intravenously.Oral contrast material was not administered FINDINGS: Lung bases:Negative. No pulmonary parenchymal infiltrates. There is no pneumonia. No pleural effusion or pericardial effusion. There is severe coronary artery calcification. Liver:Negative. No focal intrahepatic mass. No focal abnormality. No intrahepatic abscess Liver contour is smooth. No evidence for cirrhosis Gallbladder, bilary:Surgical clips in the gallbladder fossa. There is mild intrahepatic bile duct dilatation. Common bile duct is dilated to 11 mm. Findings are chronic Spleen:No splenomegaly. Normal enhancement of splenic and portal veins. Pancreas:Pancreas is atrophic. There are multiple low density lesions within the body and head of the pancreas. These appear stable since 2019. No evidence of pancreatitis. Adrenal glands:Negative Kidneys,ureters,bladder:11 mm right lower pole renal cyst, unchanged. No hydronephrosis. No perinephric abscess. No hydroureter. No ureteral calculus. Bladder is distended. There is no bladder calculus. No detectable mass. Gastrointestinal:Negative colon. No diverticulitis. No detectable mass Negative small bowel. No mechanical small bowel obstruction. No bowel wall thickening. No focal abnormality. Negative stomach and duodenum. No focal abnormality. Appendix: The appendix is not well visualized. No evidence for appendicitis Vascular:There is atherosclerotic calcification. 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 The splenic vein is thin but patent. Appearance is unchanged Lymphatic:No retroperitoneal or mesenteric adenopathy Mesentery, peritoneum: No free intraperitoneal fluid. No mesenteric or retroperitoneal mass. No intra-abdominal abscess. Reproductive:Uterus is not well visualized and is probably been removed. No adnexal mass Musculoskeletal:Previous kyphoplasty or vertebroplasty at T12. Mild compression deformity of the L2 vertebral body. These findings are new. No sacral fracture identified. Pelvis is negative. No acute fracture. Hips are negative Subcutaneous densities in the anterior abdominal wall or secondary to insulin injections No abdominal wall or inguinal hernia IMPRESSION: 1. No focal abnormality to suggest infection. No intra-abdominal abscess 2. Severe coronary artery calcification 3. Previous cholecystectomy. Mild intrahepatic and extrahepatic bile duct dilatation 4. Splenic vein is thin but patent. There are prominent perisplenic, retroperitoneal varices. Appearance is unchanged 5. Atrophic pancreas. Multiple low density lesions are stable 6. Distended urinary bladder 7. T12 and L2 compression deformities are new since 02/25/2018. Prior T12 vertebral body augmentation 8. Abnormality in the anterior abdominal wall subcutaneous fat consistent with insulin injections 9. Atherosclerotic calcification of the abdominal aorta. No abdominal aortic aneurysm The exam was performed using radiation dose optimization techniques including, but not limited to, automated exposure control, adjustment of the mA and/or kV according to patient size and use of iterative reconstruction technique. Interpreted and Authenticated by: Will Peck 12/20/21
[2021-12-20] MEDS ORDERED: INSULIN REGULAR, HUMAN 50 UNIT in 0.9 % SODIUM CHLORIDE 99.5 ML IV SCH (12:15)
[2021-12-20 12:50] LABS: ALT/SGPT 83 U/L (<40); AST/SGOT 105 U/L (<32); Albumin 4.3 gm/dL (3.2-5.2); Albumin/Globulin Ratio 1.5 (1.0-2.3); Alkaline Phosphatase 172 U/L (39-117); Bilirubin,Total 0.5 mg/dL (0.1-1.0); Blood Urea Nitrogen 20 mg/dL (8-23); Calcium 9.7 mg/dL (8.6-10.4); Carbon Dioxide 10 mmol/L (22-30); Chloride 85 mmol/L (96-108); Globulin 2.8 gm/dL (2.2-3.7); Glomerular Filtration Rate 44; Glucose 788 mg/dL (70-105)
--- NOTE | 2021-12-20 14:00 | Internal Med History&Physical ---
HPI History of Present Illness Patient information: Note initiated : 12/20/21 at 1:45 pm Service Date, if different from initiated Date: [] Patient: Tennille Castillo a 76 y/o F admitted on for High blood sugar. Chief Complaint: [] History of present illness: Ms. Castillo is a 76 year old female with a history of insulin-dependent diabetes mellitus complicated by recurrent hospitalizations for diabetic ketoacidosis, chronic pancreatitis, hypothyroidism, coronary artery disease, hyperlipidemia who presented to the ED emergency department at the request of her primary care provider for hyperglycemia. In the emergency department, the patient was found to have a serum glucose of over 700 and a metabolic acidosis as well as an acute kidney injury. A CT abdomen pelvis was done and did not show any acute changes. These findings are consistent with diabetic ketoacidosis, hospital medicine was consulted for admission. The patient was discharged from [facility] on 12/11/2021 after being treated for diabetic ketoacidosis. It appears that the patient was initially recommended go to a residential facility for rehab however the patient eventually went home. The patient says that this was because her insurance had refused payment for a residential facility. It seems like the patient's blood sugar was well controlled during the hospital stay however when the patient returned home she says that the lowest blood sugar she noted was 190. In addition, the patient felt generally weak and lethargic. She was seen by her primary care provider who ordered labs and noted that her blood sugar was extremely elevated and referred her to the emergency department. There is no evidence of infectious causes of diabetic ketoacidosis, no evidence of acute coronary syndrome. Patient says that she was taking her Tresiba and sliding scale insulin as prescribed, she does not feel like she was eating excessive carbohydrates. The patient lives alone and recently has been struggling more with activities of daily living. In p articular, she says that she has been having difficulty because of a tremor. On exam the patient does have a significant tremor during activity but disappears at rest consistent with essential tremor. We discussed the plan of care which would include an insulin infusion, correction of electrolyte abnormalities and titrating her basal bolus insulin to achieve better glycemic control. We also discussed the possibility of residential facility for rehab as she appears to be much weaker than she was during her last hospitalization. We discussed CODE STATUS in detail, the patient wishes to be a limited cold that would include CPR, vasopressors, defibrillation and resynchronization shocks as indicated but not intubation. Review of systems Constitutional: Positive for fatigue and chills, no fever Eyes: no vision changes or pain Cardiovascular: no chest pain, no palpitations Respiratory: no cough or dyspnea Gastrointestinal: Positive for nausea and abdominal discomfort. Genitourinary: no dysuria or difficulty voiding Musculoskeletal: no arthralgia or myalgia Integumentary: no skin lesion or wound Neurological: no focal weakness or numbness Psychiatric: no anxiety or depression Physical exam Head: Small bruise over left orbit. Eyes: normal appearance, no scleral icterus. Neck: full ROM Respiratory: no respiratory distress. Cardiovascular: normal rate and rhythm, S1, S2. GI/Abdominal: soft, nontender, no guarding. Extremities: full range of motion, nontender. Neurological: CN II-XII intact, intact motor, intact sensation. Psychiatric: normal mood. Skin: warm, normal color PFSH PFSH All Active Problems (Updated 12/05/21 @ 11:18 by Devon Mcdaniel MD) Hypomagnesemia (Acute) Generalized weakness (Acute) Acute dehydration (Acute) Diabetic ketosis (Acute) Acute dyspnea (Acute) Obstructive sleep apnea (Acute) DKA (diabetic ketoacidosis) (Acute) Vulvovaginitis due to yeast (Acute) Sleepwalking (Chronic) REM sleep behavior disorder (Chronic) Hypersomnia (Chronic) Snoring (Chronic) Tremor (Chronic) Neurofibromatosis 2 (Chronic) Trigger finger (Chronic) Sleep disturbance (Chronic) Arthralgia (Chronic) Pancreatitis (Chronic) Macular degeneration (Chronic) Hepatitis A (Chronic) Glaucoma (Chronic) Fibromyalgia (Chronic) DDD (degenerative disc disease), cervical (Chronic) Diabetic retinopathy (Chronic) Opioid dependence (Chronic) Stress (Chronic) Hard of hearing (Chronic) Multiple environmental allergies (Chronic) Fracture of lumbar spine (Chronic) Compression fracture of lumbosacral spine (Chronic) Abdominal pain (Chronic) Chronic pancreatitis (Chronic) Liver mass (Chronic) Cirrhosis of liver (Chronic) Constipation (Chronic) Neuropathy (Chronic) Chronic pain (Chronic) Essential tremor (Chronic) Bimalleolar ankle fracture (Chronic) Chronic bronchitis with acute exacerbation (Chronic) Dehydration (Chronic) Epistaxis (Chronic) Hypoxia (Chronic) Anterior epistaxis (Chronic) Candidiasis of mouth (Chronic) DKA (diabetic ketoacidosis) (Chronic) Conjunctivitis (Chronic) Bronchitis (Chronic) Dehiscence of closure of skin (Chronic) Anemia (Chronic) Elevated liver enzymes (Chronic) 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) Radiculopathy, sacral and sacrococcygeal region (Chronic) Radiculopathy, lumbosacral region (Chronic) Insomnia (Chronic) Levator syndrome (Chronic) Sacrococcygeal pain (Chronic) History of surgery (Chronic) Hypothyroidism (Chronic) Chronic bronchitis (Chronic) 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) Depression (Chronic) Anxiety (Chronic) Hypertension (Chronic) Osteoporosis (Chronic) Rectal pain (Chronic) Low back pain (Chronic) Pain in thoracic spine (Chronic) Age-related osteoporosis with current pathological fracture, vertebra(e), initial encounter for fracture (Chronic) Medical History Abdominal pain Acute exacerbation of chronic obstructive airways disease Age-related osteoporosis with current pathological fracture, vertebra(e), initial encounter for fracture Anemia Anterior epistaxis Anxiety Arthralgia Bilateral primary osteoarthritis of hip Bimalleolar ankle fracture Bronchitis Candidiasis of mouth Chronic bronchitis with acute exacerbation Chronic pain Chronic pancreatitis Cirrhosis of liver Compression fracture of lumbosacral spine Conjunctivitis Constipation DDD (degenerative disc disease), cervical Dehiscence of closure of skin Dehydration Depression Diabetic retinopathy DKA (diabetic ketoacidosis) Elevated liver enzymes Epistaxis Essential tremor Fibromyalgia Fracture of lumbar spine Glaucoma Hard of hearing Hepatitis A Hyperglycemia due to type 2 diabetes mellitus Hypersomnia Hypertension Hypothyroidism Hypoxia Insomnia Levator syndrome Lipomatosis Liver mass Low back pain Macular degeneration Multiple environmental allergies Neurofibromatosis 2 Neuropathy Obstructive sleep apnea Opioid dependence Osteoporosis Pain in thoracic spine Pancreatitis Radiculopathy, lumbosacral region Radiculopathy, sacral and sacrococcygeal region Rectal pain REM sleep behavior disorder Sacrococcygeal pain Sleep disturbance Sleepwalking Snoring Stress Tremor Trigger finger Surgical History History of appendectomy (~1970) History of arthroplasty of right ankle (~2017) History of cataract surgery (~2003) History of cholecystectomy History of colonoscopy (~06/26/18) History of decompression of median nerve (~2003) History of dilation and curettage History of eye surgery (~2005) Glaucoma History of hand surgery (~2003) Release of trigger finger, right History of left breast biopsy (~2005) History of oophorectomy History of surgery Vertebroplasty T12 w/sed 09/28/19 History of surgery retinopathy laser Stereotactic destruction of lesion using gamma radiation-2004 History of surgery on wrist History of tonsillectomy and adenoidectomy (~1969) Family History Mother Heart disease Fibromyalgia Father Malignant melanoma Malignant tumor of prostate Leukemia Social History education level: college occupational status: retired smoking status: Never smoker alcohol intake frequency: does not drink MEDS/ALLERGIES Home Medications and Allergies Home Medications Medication Instructions Recorded Confirmed Type insulin regular human 100 unit/mL See Rx Instructions .ROUTE .COMPLEX 09/18/17 12/20/21 History injection solution (Novolin R Regular U-100 Insulin) atorvastatin 40 mg tablet 40 mg PO QHS 06/01/21 12/20/21 History [id number] 40,000 cap PO TID 06/01/21 12/20/21 History 40,000-126,000-168,000 unit capsule, delay rel (Zenpep) Lactobacillus acidophilus 2 tab PO BID tab 07/15/21 12/04/21 History (Acidophilus) hyoscyamine sulfate 0.125 mg 0.125 mg PO Q6H PRN tab 07/15/21 12/04/21 History sublingual tablet multivit [id number] 186 1 tab PO DAILY 07/15/21 12/04/21 History [Hair, Skin and Nails Advanced] trazodone 100 mg tablet 100 mg PO HSP PRN 08/22/21 12/20/21 History duloxetine 30 mg capsule,delayed 30 mg PO QDAY 09/20/21 12/20/21 History release acyclovir 400 mg tablet 1 tab PO BID 09/21/21 12/20/21 History gabapentin 800 mg tablet 1 tab PO QID 09/21/21 12/04/21 History insulin degludec 100 unit/mL 30 unit (0.3 mL) SUBCUT BID #1 ml 09/22/21 12/20/21 Rx subcutaneous solution (Tresiba U-100 Insulin) cholecalciferol (vitamin D3) 50 50 mcg PO DAILY 12/04/21 12/04/21 History mcg (2,000 unit) capsule (Vitamin D3) levothyroxine 125 mcg tablet 1 tab PO QDAY 12/04/21 12/20/21 History zinc 50 mg tablet 50 mg PO DAILY 12/04/21 12/04/21 History nystatin 100,000 unit/mL oral 5 ml PO QID PRN 12/20/21 12/20/21 History suspension Allergies Allergy/AdvReac Type Severity Reaction Status Date / Time cephalexin [From Keflex] Allergy Intermediate Swelling Verified 12/20/21 10:15 Penicillins Allergy Mild Rash Verified 12/20/21 10:15 Anistreplase [From Eminase] Allergy Unknown UNKNOWN Verified 12/20/21 10:15 fenugreek Allergy Unknown UNKNOWN Verified 12/20/21 10:15 codeine AdvReac Mild Itching Verified 12/20/21 10:15 Erythromycin Base AdvReac Mild Itching Verified 12/20/21 10:15 Nortriptyline AdvReac Mild Nausea Verified 12/20/21 10:15 promethazine AdvReac Mild Fainting Verified 12/20/21 10:15 trulicity AdvReac Intermediate Other Uncoded 12/04/21 06:40 EXAM Constitutional Vitals: Temp Pulse Resp BP Pulse Ox 97.0 F 82 12 124/49 97 12/20/21 10:15 12/20/21 13:21 12/20/21 13:21 12/20/21 13:21 12/20/21 13:21 DATA Data Completed and Pending Labs: Labs from last 24 hours 12/20/21 12/20/21 12/20/21 12:40 11:18 11:18 WBC RBC Hgb Hct POC Hct 39 MCV MCH MCHC RDW Plt Count MPV Neut % (Auto) Lymph % (Auto) [place] % (Auto) Eos % (Auto) Baso % (Auto) Lymph # (Auto) [place] # (Auto) Eos # (Auto) Baso # (Auto) Absolute Neutrophils VBG Lactic Acid POC Sodium 126 L Sodium 124 L POC Potassium 4.8 Potassium 4.9 POC Chloride 98 Chloride 85 L Carbon Dioxide 10 L* POC Total CO2 12 L Anion Gap 29.0 H POC BUN 20 BUN 20 Creatinine 1.2 H POC Creatinine 0.9 GFR Calculation 44 Glucose 788 H* POC Glucose > 700 H* Calcium 9.7 POC WB Ioniz Calcium 1.26 Total Bilirubin 0.5 AST 105 H ALT 83 H Alkaline Phosphatase 172 H Troponin T < 0.01 Total Protein 7.1 Albumin 4.3 Globulin 2.8 Albumin/Globulin Ratio 1.5 Urine Color Pending Urine Appearance Pending Urine pH Pending Ur Specific [place] Pending Urine Protein Pending Urine Glucose (UA) Pending Urine Ketones Pending Urine Occult Blood Pending Urine Nitrate Pending Urine Bilirubin Pending Urine Urobilinogen Pending Ur Leukocyte Esterase Pending 12/20/21 12/20/21 11:18 11:05 WBC 6.7 RBC 3.98 Hgb 12.5 Hct 38.7 POC Hct MCV 97.2 MCH 31.4 MCHC 32.3 RDW 15.2 H Plt Count 216 MPV 10.5 H Neut % (Auto) 58.6 Lymph % (Auto) 32.3 [place] % (Auto) 6.4 Eos % (Auto) 1.5 Baso % (Auto) 1.2 Lymph # (Auto) 2.18 [place] # (Auto) 0.43 Eos # (Auto) 0.10 Baso # (Auto) 0.08 Absolute Neutrophils 3.95 VBG Lactic Acid 1.8 POC Sodium Sodium POC Potassium Potassium POC Chloride Chloride Carbon Dioxide POC Total CO2 Anion Gap POC BUN BUN Creatinine POC Creatinine GFR Calculation Glucose POC Glucose Calcium POC WB Ioniz Calcium Total Bilirubin AST ALT Alkaline Phosphatase Troponin T Total Protein Albumin Globulin Albumin/Globulin Ratio Urine Color Urine Appearance Urine pH Ur Specific [place] Urine Protein Urine Glucose (UA) Urine Ketones Urine Occult Blood Urine Nitrate Urine Bilirubin Urine Urobilinogen Ur Leukocyte Esterase A/P Narrative A/P Narrative: Assessment: 76 year old female with a history of insulin-dependent diabetes mellitus complicated by recurrent hospitalizations for diabetic ketoacidosis, chronic pancreatitis, hypothyroidism, coronary artery disease, hyperlipidemia admitted for diabetic ketoacidosis. #Diabetic ketoacidosis #Acute kidney injury secondary to diabetic ketoacidosis #Hyponatremia due to hyperglycemia #Poorly controlled insulin-dependent diabetes mellitus #Coronary artery disease, stable #Hypothyroidism #Chronic pancreatitis #Essential tremor Plan -Insulin infusion for DKA. -Follow anion gap, VBG for pH, electrolytes. -IV fluid with NS, add D5 if anion gap not closed when glucose less than 200. -Replace electrolytes as needed. -Follow renal function and urine output. -Continue home atorvastatin, duloxetine, gabapentin, levothyroxine, trazodone at bedtime as needed. -When DKA resolved and the patient is tolerating a diet transition to basal bolus insulin, likely will need higher doses than before admission. -Consistent carbohydrate diet. -PT and OT. -DVT prophylaxis: Heparin SQ -CODE STATUS: Limited -Disposition: Probably SNF for rehab. Time Spent With Patient Time: Total time spent is greater than 50% in coordination of care (as documented) at patient's floor/unit and/or counseling patient:
[2021-12-20 14:04] LABS: Appearance,Urine CLEAR (Clear); Bilirubin,Urine Negative (Negative); Color,Urine COLORLESS; Culture Indicated,Urine No; Glucose,Urine (UA) >=500 mg/dL (Negative); Ketones,Urine 80 mg/dL (Negative); Leukocyte Esterase,Urine Negative /uL (Negative); Mucus,Urine FEW /hpf; Nitrate,Urine Negative (Negative); Protein,Urine Negative (Negative); Specific Gravity,Urine 1.026 (1.000-1.035); Urine Blood Negative (Negative); Urine Hyaline Cast 1 /lph (0-2); Urine RBC < 1 /hpf (0-3); Urine Squamous Epithelial Cell < 1 /hpf (0-4); Urine WBC 7 /hpf (0-4); Urobilinogen,Urine Negative
--- NOTE | 2021-12-20 14:12 | Emergency Department Note ---
HPI General Chief complaint: Blood Sugar Problem Stated complaint: High blood sugar Time Seen by Provider: 12/20/21 10:22 Source: EMS Mode of arrival: EMS Limitations: no limitations History of Present Illness HPI Narrative: Narrative: 76-year-old female with history of diabetes, multiple admissions for DKA last ab out 3 weeks ago presents for evaluation of severe hyperglycemia from her primary care physician's office. She has been home for about a week, she reports that she is compliant on her medications, takes Tresiba 30 units twice daily and sliding scale insulin approximately 20 units 3 times daily of short acting. She denies any increased p.o. intake. She has been at rehab and has had steadily increasing blood sugars when she checks ranging from approximately 200 to briefly undetectable high, but mostly in a normal range. She denies any cough or congestion. She denies fever or chills. She denies body aches. She reports general malaise and weakness and fatigue. She denies any new abdominal pain. She denies nausea or vomiting. She denies constipation or diarrhea. She denies dysuria or flank pain. Related Data Home Medications Medication Instructions Recorded Confirmed insulin regular human 100 unit/mL See Rx Instructions .ROUTE .COMPLEX 09/18/17 12/20/21 injection solution (Novolin R Regular U-100 Insulin) atorvastatin 40 mg tablet 40 mg PO QHS 06/01/21 12/20/21 [id number] 40,000 cap PO TID 06/01/21 12/20/21 40,000-126,000-168,000 unit capsule, delay rel (Zenpep) Lactobacillus acidophilus 2 tab PO BID tab 07/15/21 12/04/21 (Acidophilus) hyoscyamine sulfate 0.125 mg 0.125 mg PO Q6H PRN tab 07/15/21 12/04/21 sublingual tablet multivit [id number] 186 1 tab PO DAILY 07/15/21 12/04/21 [Hair, Skin and Nails Advanced] trazodone 100 mg tablet 100 mg PO HSP PRN 08/22/21 12/20/21 duloxetine 30 mg capsule,delayed 30 mg PO QDAY 09/20/21 12/20/21 release acyclovir 400 mg tablet 1 tab PO BID 09/21/21 12/20/21 gabapentin 800 mg tablet 1 tab PO QID 09/21/21 12/04/21 cholecalciferol (vitamin D3) 50 50 mcg PO DAILY 12/04/21 12/04/21 mcg (2,000 unit) capsule (Vitamin D3) levothyroxine 125 mcg tablet 1 tab PO QDAY 12/04/21 12/20/21 zinc 50 mg tablet 50 mg PO DAILY 12/04/21 12/04/21 nystatin 100,000 unit/mL oral 5 ml PO QID PRN 12/20/21 12/20/21 suspension Previous Rx's Medication Instructions Recorded insulin degludec 100 unit/mL 30 unit (0.3 mL) SUBCUT BID #1 ml 09/22/21 subcutaneous solution (Tresiba U-100 Insulin) Allergies Allergy/AdvReac Type Severity Reaction Status Date / Time cephalexin [From Keflex] Allergy Intermediate Swelling Verified 12/20/21 10:15 Penicillins Allergy Mild Rash Verified 12/20/21 10:15 Anistreplase [From Eminase] Allergy Unknown UNKNOWN Verified 12/20/21 10:15 fenugreek Allergy Unknown UNKNOWN Verified 12/20/21 10:15 codeine AdvReac Mild Itching Verified 12/20/21 10:15 Erythromycin Base AdvReac Mild Itching Verified 12/20/21 10:15 Nortriptyline AdvReac Mild Nausea Verified 12/20/21 10:15 promethazine AdvReac Mild Fainting Verified 12/20/21 10:15 trulicity AdvReac Intermediate Other Uncoded 12/04/21 06:40 Review of Systems ROS ROS Narrative: Narrative: All systems ED: reviewed and negative except as stated. [facility] Narrative Patient History Narrative: Narrative: Medical/Surgical/Family History All Active Problems (Updated 12/20/21 @ 14:12 by Dakota Chappell DO) Diabetic keto-acidosis (Acute) Pseudohyponatremia (Acute) Hypomagnesemia (Acute) Generalized weakness (Acute) Acute dehydration (Acute) Diabetic ketosis (Acute) Acute dyspnea (Acute) Obstructive sleep apnea (Acute) DKA (diabetic ketoacidosis) (Acute) Vulvovaginitis due to yeast (Acute) Sleepwalking (Chronic) REM sleep behavior disorder (Chronic) Hypersomnia (Chronic) Snoring (Chronic) Tremor (Chronic) Neurofibromatosis 2 (Chronic) Trigger finger (Chronic) Sleep disturbance (Chronic) Arthralgia (Chronic) Pancreatitis (Chronic) Macular degeneration (Chronic) Hepatitis A (Chronic) Glaucoma (Chronic) Fibromyalgia (Chronic) DDD (degenerative disc disease), cervical (Chronic) Diabetic retinopathy (Chronic) Opioid dependence (Chronic) Stress (Chronic) Hard of hearing (Chronic) Multiple environmental allergies (Chronic) Fracture of lumbar spine (Chronic) Compression fracture of lumbosacral spine (Chronic) Abdominal pain (Chronic) Chronic pancreatitis (Chronic) Liver mass (Chronic) Cirrhosis of liver (Chronic) Constipation (Chronic) Neuropathy (Chronic) Chronic pain (Chronic) Essential tremor (Chronic) Bimalleolar ankle fracture (Chronic) Chronic bronchitis with acute exacerbation (Chronic) Dehydration (Chronic) Epistaxis (Chronic) Hypoxia (Chronic) Anterior epistaxis (Chronic) Candidiasis of mouth (Chronic) DKA (diabetic ketoacidosis) (Chronic) Conjunctivitis (Chronic) Bronchitis (Chronic) Dehiscence of closure of skin (Chronic) Anemia (Chronic) Elevated liver enzymes (Chronic) 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) Radiculopathy, sacral and sacrococcygeal region (Chronic) Radiculopathy, lumbosacral region (Chronic) Insomnia (Chronic) Levator syndrome (Chronic) Sacrococcygeal pain (Chronic) History of surgery (Chronic) Hypothyroidism (Chronic) Chronic bronchitis (Chronic) 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) Depression (Chronic) Anxiety (Chronic) Hypertension (Chronic) Osteoporosis (Chronic) Rectal pain (Chronic) Low back pain (Chronic) Pain in thoracic spine (Chronic) Age-related osteoporosis with current pathological fracture, vertebra(e), initi al encounter for fracture (Chronic) Medical History Abdominal pain Acute exacerbation of chronic obstructive airways disease Age-related osteoporosis with current pathological fracture, vertebra(e), initial encounter for fracture Anemia Anterior epistaxis Anxiety Arthralgia Bilateral primary osteoarthritis of hip Bimalleolar ankle fracture Bronchitis Candidiasis of mouth Chronic bronchitis with acute exacerbation Chronic pain Chronic pancreatitis Cirrhosis of liver Compression fracture of lumbosacral spine Conjunctivitis Constipation DDD (degenerative disc disease), cervical Dehiscence of closure of skin Dehydration Depression Diabetic retinopathy DKA (diabetic ketoacidosis) Elevated liver enzymes Epistaxis Essential tremor Fibromyalgia Fracture of lumbar spine Glaucoma Hard of hearing Hepatitis A Hyperglycemia due to type 2 diabetes mellitus Hypersomnia Hypertension Hypothyroidism Hypoxia Insomnia Levator syndrome Lipomatosis Liver mass Low back pain Macular degeneration Multiple environmental allergies Neurofibromatosis 2 Neuropathy Obstructive sleep apnea Opioid dependence Osteoporosis Pain in thoracic spine Pancreatitis Radiculopathy, lumbosacral region Radiculopathy, sacral and sacrococcygeal region Rectal pain REM sleep behavior disorder Sacrococcygeal pain Sleep disturbance Sleepwalking Snoring Stress Tremor Trigger finger Surgical History History of appendectomy (~1969) History of arthroplasty of right ankle (~2017) History of cataract surgery (~2003) History of cholecystectomy History of colonoscopy (~06/26/18) History of decompression of median nerve (~2003) History of dilation and curettage History of eye surgery (~2005) Glaucoma History of hand surgery (~2003) Release of trigger finger, right History of left breast biopsy (~2005) History of oophorectomy History of surgery Vertebroplasty T12 w/sed 09/28/19 History of surgery retinopathy laser Stereotactic destruction of lesion using gamma radiation-2004 History of surgery on wrist History of tonsillectomy and adenoidectomy (~1969) Family History Mother Heart disease Fibromyalgia Father Malignant melanoma Malignant tumor of prostate Leukemia Social History Smoking Status: Never smoker Alcohol Intake Frequency: does not drink Exam Narrative Narrative: Narrative: General Limitations: no limitations General appearance: Present alert and in no apparent distress Head Head: Present atraumatic and normocephalic Eye Eye: Present normal appearance, PERRL and EOMI; Absent nystagmus ENT ENT: Present normal oropharynx and mucous membranes dry Neck Neck: Present normal inspection and full ROM; Absent meningismus Chest Chest: Present normal inspection and symmetric chest wall rise Respiratory Respiratory: Present normal lung sounds bilaterally; Absent respiratory distress Cardiovascular Cardiovascular: Present regular rate, normal rhythm and normal heart sounds Adbominal Abdominal: Present soft and tenderness (Very mild diffuse tenderness with no guarding or rebound); Absent distention Extremities Extremities: Present normal inspection and full ROM Back Back: Present normal inspection and full ROM; Absent CVA tenderness (R) or CVA tenderness (L) Neurological Neurological: Present alert, oriented X3 and CN II-XII intact; Absent motor sensory deficit Psychiatric Psychiatric: Present normal affect and normal mood Skin Skin: Present warm (WNL), dry and normal color Course Vital Signs Vital signs: Vital Signs Temperature 97.0 F 12/20/21 10:15 Pulse Rate 93 H 12/20/21 10:15 Respiratory Rate 18 12/20/21 10:15 Blood Pressure 155/123 12/20/21 10:15 Pulse Oximetry (%) 100 12/20/21 10:15 Temperature 97.0 F 12/20/21 10:15 Pulse Rate 82 12/20/21 13:21 Respiratory Rate 12 12/20/21 13:21 Blood Pressure 124/49 12/20/21 13:21 Pulse Oximetry (%) 97 12/20/21 13:21 MDM MDM Narrative Medical decision making narrative: Narrative: Patient with symptoms concerning for DKA, recent admission for the same and reports consistent steadily increasing blood sugars. Lab work-up confirms this with anion gap metabolic acidosis and severe hyperglycemia for which she will require IV insulin for now. There is no definite underlying causative issue. Given frequency of episodes, more likely dietary issue at home as she has not had any change in her insulin dosing and by report is consistent with this. Blo od cultures were sent, no occult pathology evident on ER work-up Medical Records Medical records reviewed: Yes I reviewed the patient's medical records. Lab Data Lab results reviewed: Yes I reviewed the patient's lab results. Result diagrams: 12/20/21 11:18 12/20/21 11:18 Labs: Lab Results 12/20/21 12/20/21 12/20/21 Range/Units 11:05 11:18 11:18 WBC 6.7 (4.5-11.0) K/mcL RBC 3.98 (3.59-5.38) M/mcL Hgb 12.5 (11.2-15.7) g/dL Hct 38.7 (34.1-44.9) % POC Hct 39 (36-48) % MCV 97.2 (80.0-100.0) fL MCH 31.4 (26.0-34.0) pg MCHC 32.3 (31.0-36.0) g/dL RDW 15.2 H (11.5-14.5) % Plt Count 216 (140-440) K/mcL MPV 10.5 H (7.4-10.4) fL Neut % (Auto) 58.6 (38.0-78.0) % Lymph % (Auto) 32.3 (15.5-49.0) % Hamilton % (Auto) 6.4 (1.0-12.0) % Eos % (Auto) 1.5 (0.0-7.0) % Baso % (Auto) 1.2 (0.0-2.0) % Lymph # (Auto) 2.18 (1.50-4.80) K/mcL [place] # (Auto) 0.43 (0.10-0.90) K/mcL Eos # (Auto) 0.10 (0.00-0.70) K/mcL Baso # (Auto) 0.08 (0.00-0.30) K/mcL Absolute Neutrophils 3.95 (1.80-8.00) K/mcL VBG Lactic Acid 1.8 (0.5-2.0) mmol/L POC Sodium 126 L (133-145) mEq/L Sodium 124 L (133-145) mmol/L POC Potassium 4.8 (3.3-5.1) mEql/L Potassium 4.9 (3.3-5.1) mmol/L POC Chloride 98 (96-108) mEq/L Chloride 85 L (96-108) mmol/L Carbon Dioxide 10 L* (22-30) mmol/L POC Total CO2 12 L (22-30) mmol/L Anion Gap 29.0 H (8.0-16.0) POC BUN 20 (6-20) mg/dL BUN 20 (8-23) mg/dL Creatinine 1.2 H (0.6-1.1) mg/dL POC Creatinine 0.9 (0.6-1.2) mg/dL GFR Calculation 44 Glucose 788 H* (70-105) mg/dL POC Glucose > 700 H* mg/dL Calcium 9.7 (8.6-10.4) mg/dL POC WB Ioniz Calcium 1.26 (1.16-1.32) mmEq/L Total Bilirubin 0.5 (0.1-1.0) mg/dL AST 105 H (<32) U/L ALT 83 H (<40) U/L Alkaline Phosphatase 172 H (39-117) U/L Troponin T (<0.03) ng/mL Total Protein 7.1 (5.9-8.4) gm/dL Albumin 4.3 (3.2-5.2) gm/dL Globulin 2.8 (2.2-3.7) gm/dL Albumin/Globulin Ratio 1.5 (1.0-2.3) 12/20/21 Range/Units 11:18 WBC (4.5-11.0) K/mcL RBC (3.59-5.38) M/mcL Hgb (11.2-15.7) g/dL Hct (34.1-44.9) % POC Hct (36-48) % MCV (80.0-100.0) fL MCH (26.0-34.0) pg MCHC (31.0-36.0) g/dL RDW (11.5-14.5) % Plt Count (140-440) K/mcL MPV (7.4-10.4) fL Neut % (Auto) (38.0-78.0) % Lymph % (Auto) (15.5-49.0) % Hamilton % (Auto) (1.0-12.0) % Eos % (Auto) (0.0-7.0) % Baso % (Auto) (0.0-2.0) % Lymph # (Auto) (1.50-4.80) K/mcL Hamilton # (Auto) (0.10-0.90) K/mcL Eos # (Auto) (0.00-0.70) K/mcL Baso # (Auto) (0.00-0.30) K/mcL Absolute Neutrophils (1.80-8.00) K/mcL VBG Lactic Acid (0.5-2.0) mmol/L POC Sodium (133-145) mEq/L Sodium (133-145) mmol/L POC Potassium (3.3-5.1) mEql/L Potassium (3.3-5.1) mmol/L POC Chloride (96-108) mEq/L Chloride (96-108) mmol/L Carbon Dioxide (22-30) mmol/L POC Total CO2 (22-30) mmol/L Anion Gap (8.0-16.0) POC BUN (6-20) mg/dL BUN (8-23) mg/dL Creatinine (0.6-1.1) mg/dL POC Creatinine (0.6-1.2) mg/dL GFR Calculation Glucose (70-105) mg/dL POC Glucose mg/dL Calcium (8.6-10.4) mg/dL POC WB Ioniz Calcium (1.16-1.32) mmEq/L Total Bilirubin (0.1-1.0) mg/dL AST (<32) U/L ALT (<40) U/L Alkaline Phosphatase (39-117) U/L Troponin T < 0.01 (<0.03) ng/mL Total Protein (5.9-8.4) gm/dL Albumin (3.2-5.2) gm/dL Globulin (2.2-3.7) gm/dL Albumin/Globulin Ratio (1.0-2.3) Radiology Data Radiology results reviewed: Yes I reviewed the patient's radiology results. EKG Data EKG #1: EKG attestation: Yes I reviewed and interpreted this EKG. and Yes There are no EKG findings of acute coronary syndrome EKG results narrative: Sinus rhythm at a rate of 84. Normal axis. QTc 458. High lateral T wave flattening/inversion. Borderline LVH with possible strain abnormality. Abnormal but nonspecific EKG Procedures Other Procedure: Peripheral IV placement Indication: Nursing/lab unable to obtain sample for lab and secondary IV for DKA No contraindications Verbal consent obtained from patient Usual sterile prep and drape. Ultrasound guidance utilized. Vessel identified with good compression. Left proximal arm utilized. 20-gauge 1.9 inch catheter introduced, good blood return. Samples obtained and sent for lab analysis. Flushed easily. No complications CC TIME Critical Care Time Critical Care Time: Yes Attestation: Approximately 30 minutes of critical care time was used in order to assess and manage the high probability of imminent or life threatening deterioration to diabetic ketoacidosis which required my highest level of preparedness and interventions with frequent patient assessments. This time is excluding time spent on separately billable procedures. Discharge Plan Patient/Caregiver Discharge Instructions Pt seen by PASTRY WRAPPER/PA only: No Clinical Impression: Diabetic keto-acidosis, Pseudohyponatremia Patient Disposition: Xfer As Inpt ([facility]) Follow up with: Faye Porras DO [Primary Care Provider] - Prescriptions: No Action Acidophilus Tablet,Chewable 2 tab PO BID 0RF hyoscyamine sulfate 0.125 mg tablet, sublingual 0.125 mg PO Q6H PRN (Reason: Abdominal Discomfort) 0RF multivit [id number]-JG-herb 186 [Hair, Skin and Nails Advanced] 1 tab PO DAILY 0RF trazodone 100 mg tablet 100 mg PO HSP PRN (Reason: insomnia) 0RF Novolin R Regular U-100 Insuln 100 UNIT/ML solution See Rx Instructions unit .ROUTE .COMPLEX 0RF Protocol: Insulin Sliding Scale, High Condition: HUMALOG/NOVALOG SC SLIDING Dose/Route: SCALE Condition: FSBS < 70 Dose/Route: Give 4 Oz juice, or 15gm oral Instruction: Glucose, or 25ml D50W IV if Dose/Route: unable to take PO. Recheck in Instruction: 15 min and repeat if FSBS < 70 Condition: FSBS 71-140 Dose/Route: NO COVERAGE Condition: FSBS 141-170 Dose/Route: 3 UNITS Condition: FSBS 171-200 Dose/Route: 6 UNITS Condition: FSBS 201-250 Dose/Route: 9 UNITS Condition: FSBS 251-300 Dose/Route: 12 UNITS Condition: FSBS 301-350 Dose/Route: 15 UNITS Condition: FSBS 351-400 Dose/Route: 18 UNITS Condition: FSBS > 400 Dose/Route: 20 UNITS; REPEAT Q2H X2 Instruction: CONTINUE FOLLOWING SLIDING Condition: SCALE; IF STILL > 400; CALL Dose/Route: PHYSICIAN Rx Instructions: 70-139 none 140-180 4 units 181-240 6 Units 241-300 8 Units >300 Can't read instructions atorvastatin 40 mg tablet 40 mg PO QHS 0RF Label Comments: take 1 tablet by mouth at bedtime Zenpep 40,000-126,000- 168,000 unit capsule,delayed release(DR/EC) 40,000 cap PO TID 0RF Label Comments: take 1 capsule by mouth three times a day duloxetine 30 mg Capsule,Delayed Release(Dr/Ec) 30 mg PO QDAY 0RF acyclovir 400 mg tablet 1 tab PO BID 0RF gabapentin 800 mg tablet 1 tab PO QID 0RF Tresiba U-100 Insulin 100 unit/mL solution 30 unit SUBCUT BID Qty: 1 0RF levothyroxine 125 mcg tablet 1 tab PO QDAY 0RF zinc 50 mg Tablet 50 mg PO DAILY 0RF cholecalciferol (vitamin D3) [Vitamin D3] 50 mcg (2,000 unit) Capsule 50 mcg PO DAILY 0RF nystatin 100,000 unit/mL suspension 5 ml PO QID PRN (Reason: Itching) 0RF
[2021-12-20] MEDS ORDERED: ONDANSETRON 4 MG/2 ML VIAL IV PRN (15:10)
[2021-12-20] MEDS ORDERED: traZODone HCL 100 MG TABLET PO PRN (15:10)
[2021-12-20] MEDS ORDERED: LACTULOSE 20 GM/30 ML ORAL.SOL PO PRN (15:10)
[2021-12-20] MEDS ORDERED: LACTATED RINGERS 1,000 ML IV SCH (15:10)
[2021-12-20] MEDS ORDERED: INSULIN REGULAR, HUMAN 1 UNIT/0.01 ML UNIT IV ONE ×2 (15:34→16:28)
--- NOTE | 2021-12-20 15:34 | EKG ---
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 Measurements Intervals [place] Rate: 84 P: 55 MN: 171 QRS: 24 QRSD: 91 T: 111 QT: 387 QTc: 458 Interpretive Statements Sinus rhythm Probable left atrial enlargement Probable LVH with secondary repol abnrm Electronically Signed On 12-20-2021 15:33:36 PDT by Will Lawler M.D. /store/M0/[id number]
[2021-12-20] MEDS: 0.9 % SODIUM CHLORIDE 10 ML SYRINGE IV SCH ×2 (15:48→22:09)
[2021-12-20 15:51] LABS: ABG Methemoglobin 0.1 % (0.4-1.5); Total Hemoglobin 12.5 gm/Dl (12.0-15.0); VBG Base Excess -13 (-2-3); VBG HCO3 13.1 mmol/L (24.0-28.0); VBG Oxygen Saturation 91.6 % (40.0-70.0); VBG PCO2 29.9 mmHg (41.0-51.0); VBG PH 7.26 U (7.32-7.42); VBG PO2 80.3 mmHg (25.0-40.0); VBG Total CO2 14.1 mmol/L (25.0-29.0)
[2021-12-20 16:23] LABS: Carbon Dioxide 13 mmol/L (22-30); Chloride 95 mmol/L (96-108)
[2021-12-20 16:35] LABS: ALT/SGPT 69 U/L (<40); AST/SGOT 77 U/L (<32); Albumin 4.1 gm/dL (3.2-5.2); Albumin/Globulin Ratio 1.7 (1.0-2.3); Alkaline Phosphatase 151 U/L (39-117); Bilirubin,Direct < 0.2 mg/dL (0-0.3); Bilirubin,Total 0.4 mg/dL (0.1-1.0); Blood Urea Nitrogen 17 mg/dL (8-23); Calcium 9.1 mg/dL (8.6-10.4); Globulin 2.4 gm/dL (2.2-3.7); Glomerular Filtration Rate 49; Glucose 456 mg/dL (70-105); Lactate Dehydrogenase 183 U/L (135-225); Phosphorous 2.7 mg/dL (2.5-4.5); Triglycerides 278 mg/dL (<150); Uric Acid 8.2 mg/dL (2.5-8.0)
[2021-12-20 16:55] LABS: Beta Hydroxybutyrate 5.05 mmol/L (<0.27)
[2021-12-20] MEDS: GABAPENTIN 400 MG CAPSULE PO SCH ×2 (17:22→20:15)
[2021-12-20] MEDS: PROTEASE PO SCH ×2 (17:24→20:24)
[2021-12-20] MEDS: AMYLASE PO SCH ×2 (17:24→20:24)
[2021-12-20] MEDS: LIPASE PO SCH ×2 (17:24→20:24)
[2021-12-20] MEDS: INSULIN REGULAR, HUMAN 50 UNIT in 0.9 % SODIUM CHLORIDE 99.5 ML IV SCH (18:39)
[2021-12-20] MEDS: ACETAMINOPHEN 325 MG TABLET PO PRN (18:49)
[2021-12-20 19:57] LABS: ABG Methemoglobin 0.3 % (0.4-1.5); Total Hemoglobin 12.1 gm/Dl (12.0-15.0); VBG Base Excess -5 (-2-3); VBG HCO3 20.4 mmol/L (24.0-28.0); VBG Oxygen Saturation 90.3 % (40.0-70.0); VBG PCO2 36.8 mmHg (41.0-51.0); VBG PH 7.36 U (7.32-7.42); VBG PO2 71.2 mmHg (25.0-40.0); VBG Total CO2 21.5 mmol/L (25.0-29.0)
[2021-12-20] MEDS: ATORVASTATIN 40 MG TABLET PO SCH (20:14)
[2021-12-20] MEDS: HEPARIN 5,000 UNIT/ML VIAL SQ SCH (20:15)
[2021-12-20] MEDS: ACYCLOVIR 400 MG TABLET PO SCH (20:15)
[2021-12-20] MEDS: HYOSCYAMINE SULFATE 0.125 MG TABLET PO PRN (20:23)
[2021-12-20] MEDS: DOCUSATE SODIUM 100 MG CAPSULE PO SCH (22:09)
[2021-12-20] MEDS ORDERED: DEXTROSE 50% 50 ML SYRINGE IV ONE (22:09)
[2021-12-20] MEDS ORDERED: POTASSIUM CHLORIDE 20 MEQ/10 ML VIAL IV ONE (22:31)
[2021-12-20] MEDS: DEXTROSE 5%-1/2NS W/40MEQ KCL 1,000 ML IV SCH (22:40)
[2021-12-20 23:42] LABS: ABG Methemoglobin 0.2 % (0.4-1.5); Total Hemoglobin 11.6 gm/Dl (12.0-15.0); VBG Base Excess -3 (-2-3); VBG HCO3 21.5 mmol/L (24.0-28.0); VBG Oxygen Saturation 93.2 % (40.0-70.0); VBG PCO2 35.8 mmHg (41.0-51.0); VBG PO2 115.4 mmHg (25.0-40.0); VBG Total CO2 22.6 mmol/L (25.0-29.0)
[2021-12-21 00:30] LABS: Blood Urea Nitrogen 15 mg/dL (8-23); Carbon Dioxide 19 mmol/L (22-30); Chloride 104 mmol/L (96-108); Glomerular Filtration Rate 62; Glucose 128 mg/dL (70-105)
[2021-12-21] MEDS ORDERED: INSULIN REGULAR, HUMAN 1 UNIT/0.01 ML UNIT ONE (01:31)
[2021-12-21] MEDS ORDERED: DEXTROSE 50% 50 ML VIAL IV PRN ×2 (02:10→08:14)
[2021-12-21] MEDS ORDERED: DEXTROSE 50% 50 ML SYRINGE IV ONE ×3 (02:15→06:35)
[2021-12-21] MEDS: INSULIN REGULAR, HUMAN 50 UNIT in 0.9 % SODIUM CHLORIDE 99.5 ML IV SCH (02:15)
[2021-12-21 03:58] LABS: ABG Methemoglobin 0.3 % (0.4-1.5); Total Hemoglobin 11.5 gm/Dl (12.0-15.0); VBG Base Excess -4 (-2-3); VBG HCO3 20.4 mmol/L (24.0-28.0); VBG Oxygen Saturation 93.6 % (40.0-70.0); VBG PCO2 36.5 mmHg (41.0-51.0); VBG PH 7.37 U (7.32-7.42); VBG PO2 95.3 mmHg (25.0-40.0); VBG Total CO2 21.6 mmol/L (25.0-29.0)
[2021-12-21 04:23] LABS: Blood Urea Nitrogen 15 mg/dL (8-23); Calcium 8.9 mg/dL (8.6-10.4); Carbon Dioxide 20 mmol/L (22-30); Chloride 106 mmol/L (96-108); Glomerular Filtration Rate 62; Glucose 101 mg/dL (70-105)
[2021-12-21] MEDS: 0.9 % SODIUM CHLORIDE 250 ML IV SCH ×2 (05:25→17:26)
[2021-12-21] MEDS: 0.9 % SODIUM CHLORIDE 10 ML SYRINGE IV SCH ×3 (05:27→20:48)
[2021-12-21] MEDS ORDERED: DEXTROSE 31 GM ORAL.SUSP PO PRN (08:14)
[2021-12-21 08:31] LABS: ABG Methemoglobin 0.2 % (0.4-1.5); Total Hemoglobin 11.7 gm/Dl (12.0-15.0); VBG Base Excess -5 (-2-3); VBG HCO3 20.1 mmol/L (24.0-28.0); VBG Oxygen Saturation 92.5 % (40.0-70.0); VBG PCO2 36.3 mmHg (41.0-51.0); VBG PH 7.36 U (7.32-7.42); VBG PO2 104.4 mmHg (25.0-40.0); VBG Total CO2 21.2 mmol/L (25.0-29.0)
[2021-12-21] MEDS: DOCUSATE SODIUM 100 MG CAPSULE PO SCH ×2 (08:40→20:33)
[2021-12-21] MEDS: AMYLASE PO SCH ×4 (08:45→20:34)
[2021-12-21] MEDS: LIPASE PO SCH ×4 (08:45→20:34)
[2021-12-21] MEDS: PROTEASE PO SCH ×4 (08:45→20:34)
[2021-12-21] MEDS: MULTIVIT,THER IRON,CA,FA & MIN 1 TABLET PO SCH (08:56)
[2021-12-21] MEDS: HEPARIN 5,000 UNIT/ML VIAL SQ SCH ×2 (08:57→20:33)
[2021-12-21] MEDS: DULoxetine 30 MG CAPSULE PO SCH (08:57)
[2021-12-21] MEDS: LEVOTHYROXINE 125 MCG TABLET PO SCH (08:57)
[2021-12-21] MEDS: ACYCLOVIR 400 MG TABLET PO SCH ×2 (08:57→20:34)
[2021-12-21] MEDS: GABAPENTIN 400 MG CAPSULE PO SCH ×4 (08:57→20:34)
[2021-12-21 08:59] LABS: Blood Urea Nitrogen 13 mg/dL (8-23); Calcium 8.8 mg/dL (8.6-10.4); Carbon Dioxide 20 mmol/L (22-30); Chloride 107 mmol/L (96-108); Glomerular Filtration Rate 71; Glucose 187 mg/dL (70-105)
[2021-12-21] MEDS ORDERED: INSULIN GLARGINE, HUMAN 1 UNIT/0.01 ML SQ SCH ×2 (09:00→21:00)
[2021-12-21] MEDS: DEXTROSE 5%-1/2NS W/40MEQ KCL 1,000 ML IV SCH (09:13)
[2021-12-21 11:00] LABS: Hemoglobin A1C 12.9 % Hgb (4.0-6.0)
[2021-12-21] MEDS ORDERED: INSULIN LISPRO 1 UNIT/0.01 ML UNIT SQ SCH (11:30)
--- NOTE | 2021-12-21 12:27 | Internal Med Progress Note ---
SUBJECTIVE Subjective Patient information: Note initiated : 12/21/21 at 12:24 pm Service Date, if different from initiated Date: [] Patient: Tennille Castillo a 76 y/o F admitted on 12/20/21 for High blood sugar. Chief Complaint: [] Interval history: Ms. Castillo is a 76 year old female with a history of insulin-dependent diabetes mellitus complicated by recurrent hospitalizations for diabetic ketoacidosis, chronic pancreatitis, hypothyroidism, coronary artery disease, hyperlipidemia who presented to the ED emergency department at the request of her primary care provider for hyperglycemia. In the emergency department, the patient was found to have a serum glucose of over 700 and a metabolic acidosis as well as an acute kidney injury. A CT abdomen pelvis was done and did not show any acute changes. These findings are consistent with diabetic ketoacidosis, hospital medicine was consulted for admission. The patient was discharged from [facility] on 12/11/2021 after being treated for diabetic ketoacidosis. It appears that the patient was initially recommended go to a retirement facility for rehab however the patient eventually went home. The patient says that this was because her insurance had refused payment for a retirement facility. It seems like the patient's blood sugar was well controlled during the hospital stay however when the patient returned home she says that the lowest blood sugar she noted was 190. In addition, the patient felt generally weak and lethargic. She was seen by her primary care provider who ordered labs and noted that her blood sugar was extremely elevated and referred her to the emergency department. There is no evidence of infectious causes of diabetic ketoacidosis, no evidence of acute coronary syndrome. Patient says that she was taking her Tresiba and sliding scale insulin as prescribed, she does not feel like she was eating excessive carbohydrates. The patient lives alone and recently has been struggling more with activities of daily living. In particular, she says that she has been having difficulty because of a tremor. On exam the patient does have a significant tremor during activity but disappears at rest consistent with essential tremor. We discussed the plan of care which would include an insulin infusion, correction of electrolyte abnormalities and titrating her basal bolus insulin to achieve better glycemic control. We also discussed the possibility of retirement facility for rehab as she appears to be much weaker than she was during her last hospitalization. We discussed CODE STATUS in detail, the patient wishes to be a limited cold that would include CPR, vasopressors, defibrillation and resynchronization shocks as indicated but not intubation. 4/7 Diabetic ketoacidosis resolved, transitioned off insulin infusion to basal bolus subcutaneous insulin regimen. Awaiting PT and OT recommendations. Transfer to [facility]. Physical exam Head: Small bruise over left orbit. Eyes: normal appearance, no scleral icterus. Neck: full ROM Respiratory: no respiratory distress. Cardiovascular: normal rate and rhythm, S1, S2. GI/Abdominal: soft, nontender, no guarding. Extremities: full range of motion, nontender. Neurological: CN II-XII intact, intact motor, intact sensation. Psychiatric: normal mood. Skin: warm, normal color Constitutional Vitals: Vital Signs Temp Pulse Resp BP Pulse Ox 97.4 F 71 12 94/57 96 12/21/21 08:01 12/21/21 10:01 12/21/21 10:01 12/21/21 10:01 12/21/21 10:01 Period Temp Pulse Resp BP Sys/Rosario Pulse Ox Last 24 Hr 97.4 F-98.5 F 65-83 12-18 92-135/38-60 90-100 Intake and Output 12/20/21 12/21/21 12/21/21 21:59 05:59 13:59 Intake Total 0227 855 9494 Output Total 1350 0 Balance 615 333 1760 Weight 72.711 kg Intake & Output: Intake & Output 12/20/21 12/21/21 12/21/21 21:59 05:59 13:59 Intake Total 0313 970 1066 Output Total 1350 0 Balance 912 522 0723 Weight 72.711 kg Intake: IV 9812 753 5497 Sodium Chloride 0.9% 1,000 ml @ 1000 Wide Open IV .Q0M ONE Rx#: [id number] Dextrose 5%-1/2Ns W/40Meq KCl 1 1000 ,000 ml @ 100 mls/hr IV .Q10H PEG Rx#:[id number] HumuLIN R 50 UNIT In Sodium 157 61 5 Chloride 0.9% 99.5 ml @ Per Protocol IV DUR PEG Rx#: [id number] Lactated Ringers 1,000 ml @ 100 725 mls/hr IV .Q10H PEG Rx#: [id number] Oral 520 360 Output: Void Amount 1350 0 Other: Meal Dinner Breakfast Percent of Meal Consumed 100% 100% Feeding Ability Independent Urine Appearance Clear Urine Color Bright Yellow OBJ DATA Labs CBC & Chem 7: 12/20/21 11:18 12/21/21 08:02 Labs: Abnormal Lab Results 12/21/21 12/21/21 12/21/21 08:02 08:02 08:02 RDW MPV ABG Methemoglobin 0.2 L VBG pH VBG pCO2 36.3 L VBG pO2 104.4 H VBG HCO3 20.1 L VBG Total CO2 21.2 L VBG O2 Saturation 92.5 H VBG Base Excess -5 L Carboxyhemoglobin 4.9 H Total Hemoglobin 11.7 L POC Sodium Sodium Chloride Carbon Dioxide 20 L POC Total CO2 Anion Gap Creatinine Glucose 187 H POC Glucose Hemoglobin A1c 12.9 H Uric Acid GGT AST ALT Alkaline Phosphatase Triglycerides Beta-Hydroxybutyrate Urine Glucose (UA) Urine Ketones Urine WBC Urine Mucus 12/21/21 12/21/21 12/20/21 03:36 03:35 23:21 RDW MPV ABG Methemoglobin 0.3 L VBG pH VBG pCO2 36.5 L VBG pO2 95.3 H VBG HCO3 20.4 L VBG Total CO2 21.6 L VBG O2 Saturation 93.6 H VBG Base Excess -4 L Carboxyhemoglobin 3.0 H Total Hemoglobin 11.5 L POC Sodium Sodium Chloride Carbon Dioxide 20 L 19 L POC Total CO2 Anion Gap Creatinine Glucose 128 H POC Glucose Hemoglobin A1c Uric Acid GGT AST ALT Alkaline Phosphatase Triglycerides Beta-Hydroxybutyrate Urine Glucose (UA) Urine Ketones Urine WBC Urine Mucus 12/20/21 12/20/21 12/20/21 23:21 19:34 15:23 RDW MPV ABG Methemoglobin 0.2 L 0.3 L 0.1 L VBG pH 7.26 L VBG pCO2 35.8 L 36.8 L 29.9 L VBG pO2 115.4 H 71.2 H 80.3 H VBG HCO3 21.5 L 20.4 L 13.1 L VBG Total CO2 22.6 L 21.5 L 14.1 L VBG O2 Saturation 93.2 H 90.3 H 91.6 H VBG Base Excess -3 L -5 L -13 L Carboxyhemoglobin 4.4 H 4.0 H 3.3 H Total Hemoglobin 11.6 L POC Sodium Sodium Chloride Carbon Dioxide POC Total CO2 Anion Gap Creatinine Glucose POC Glucose Hemoglobin A1c Uric Acid GGT AST ALT Alkaline Phosphatase Triglycerides Beta-Hydroxybutyrate Urine Glucose (UA) Urine Ketones Urine WBC Urine Mucus 12/20/21 12/20/21 12/20/21 15:23 12:40 11:18 RDW MPV ABG Methemoglobin VBG pH VBG pCO2 VBG pO2 VBG HCO3 VBG Total CO2 VBG O2 Saturation VBG Base Excess Carboxyhemoglobin Total Hemoglobin POC Sodium 126 L Sodium 129 L 124 L Chloride 95 L 85 L Carbon Dioxide 13 L 10 L* POC Total CO2 12 L Anion Gap 21.0 H 29.0 H Creatinine 1.2 H Glucose 456 H* 788 H* POC Glucose > 700 H* Hemoglobin A1c Uric Acid 8.2 H GGT 242 H AST 77 H 105 H ALT 69 H 83 H Alkaline Phosphatase 151 H 172 H Triglycerides 278 H Beta-Hydroxybutyrate 5.05 H Urine Glucose (UA) >=500 A Urine Ketones 80 A Urine WBC 7 H Urine Mucus Few A 12/20/21 11:18 RDW 15.2 H MPV 10.5 H ABG Methemoglobin VBG pH VBG pCO2 VBG pO2 VBG HCO3 VBG Total CO2 VBG O2 Saturation VBG Base Excess Carboxyhemoglobin Total Hemoglobin POC Sodium Sodium Chloride Carbon Dioxide POC Total CO2 Anion Gap Creatinine Glucose POC Glucose Hemoglobin A1c Uric Acid GGT AST ALT Alkaline Phosphatase Triglycerides Beta-Hydroxybutyrate Urine Glucose (UA) Urine Ketones Urine WBC Urine Mucus Meds: Medications Acetaminophen (Acetaminophen 325 Mg Tablet) 650 mg PO Q6HP PRN; Protocol PRN Reason: Per Pain Protocol/Fever > 101 Last Admin: 12/20/21 18:49 Dose: 650 mg Documented by: Acyclovir (Acyclovir 400 Mg Tablet) 400 mg PO BID [facility]; Protocol Last Admin: 12/21/21 08:57 Dose: 400 mg Documented by: Atorvastatin Calcium (Atorvastatin 40 Mg Tablet) 40 mg PO QHS [facility] Last Admin: 12/20/21 20:14 Dose: 40 mg Documented by: Dextrose (Dextrose 50% 50 Ml Vial) 0 ml IV UD PRN PRN Reason: Per Sliding Scale Diagnostic Test (Pha) (Accu-Chek 1 Each Strip) 1 each FS ACHS [facility] Last Admin: 12/21/21 11:35 Dose: 1 each Documented by: Docusate Sodium (Docusate Sodium 100 Mg Capsule) 100 mg PO BID [facility] Last Admin: 12/21/21 08:40 Dose: Not Given Documented by: Duloxetine HCl (Duloxetine 30 Mg Capsule) 30 mg PO QDAY [facility] Last Admin: 12/21/21 08:57 Dose: 30 mg Documented by: Gabapentin (Gabapentin 400 Mg Capsule) 800 mg PO QID [facility] Last Admin: 12/21/21 08:57 Dose: 800 mg Documented by: Glucose (Dextrose 31 Gm Oral.Susp) 15 gm PO PRN PRN PRN Reason: Hypoglycemia Heparin Sodium (Porcine) (Heparin 5,000 Unit/Ml Vial) 5,000 unit SQ Q12 [facility] Last Admin: 12/21/21 08:57 Dose: 5,000 unit Documented by: Hyoscyamine (Hyoscyamine Sulfate 0.125 Mg Tablet) 0.125 mg PO Q6HP PRN PRN Reason: Abdominal Discomfort Last Admin: 12/20/21 20:23 Dose: 0.125 mg Documented by: Sodium Chloride (Sodium Chloride 0.9%) 250 mls @ 20 mls/hr IV .[id number] [facility] Last Admin: 12/21/21 05:25 Dose: 20 mls/hr Documented by: Insulin Glargine (Insulin Glargine, Human 1 Unit/0.01 Ml) 24 unit SQ BID [facility] Last Admin: 12/21/21 08:55 Dose: 24 units Documented by: Insulin Human Lispro (Insulin Lispro 1 Unit/0.01 Ml Unit) 0 unit SQ ACHS [facility]; Protocol Last Admin: 12/21/21 11:35 Dose: 10 units Documented by: Iron Carb/Multivit/[place]/Folic Acid (Multivit,Ther Iron,Ca,Fa & Min 1 Tablet) 1 tab PO DAILY [facility] Last Admin: 12/21/21 08:56 Dose: 1 tab Documented by: Lactulose (Lactulose 20 Gm/30 Ml Oral.Alley) 10 gm PO DAILYP PRN PRN Reason: Constipation Levothyroxine Sodium (Levothyroxine 125 Mcg Tablet) 125 mcg PO QDAY [facility] Last Admin: 12/21/21 08:57 Dose: 125 mcg Documented by: Melatonin (Melatonin 3 Mg Tablet) 3 mg PO HSP PRN PRN Reason: Insomnia Ondansetron HCl (Ondansetron 4 Mg/2 Ml Vial) 4 mg IV Q4HP PRN; Protocol PRN Reason: Nausea And Vomiting Lipase 40,000 Longterm Units, Protease 126, 000 Longterm Units, And Amylase 168,000 Longterm 1 dose PO TID [facility] Last Admin: 12/21/21 11:35 Dose: 1 dose Documented by: Izabel (Sennosides 1 Tablet) 2 tab PO HSP PRN PRN Reason: Constipation Sodium Chloride (0.9 % Sodium Chloride 10 Ml Syringe) 10 ml IV Q8 [facility] Last Admin: 12/21/21 05:27 Dose: Not Given Documented by: ABG Interpretation ABG results: 12/20/21 12/20/21 12/20/21 15:23 19:34 23:21 ABG Methemoglobin 0.1 L 0.3 L 0.2 L VBG pH 7.26 L 7.36 7.40 VBG pCO2 29.9 L 36.8 L 35.8 L VBG pO2 80.3 H 71.2 H 115.4 H VBG HCO3 13.1 L 20.4 L 21.5 L VBG Total CO2 14.1 L 21.5 L 22.6 L VBG O2 Saturation 91.6 H 90.3 H 93.2 H VBG Base Excess -13 L -5 L -3 L 12/21/21 12/21/21 03:35 08:02 ABG Methemoglobin 0.3 L 0.2 L VBG pH 7.37 7.36 VBG pCO2 36.5 L 36.3 L VBG pO2 95.3 H 104.4 H VBG HCO3 20.4 L 20.1 L VBG Total CO2 21.6 L 21.2 L VBG O2 Saturation 93.6 H 92.5 H VBG Base Excess -4 L -5 L A/P Narrative A/P Narrative: Assessment: 76 year old female with a history of insulin-dependent diabetes mellitus complicated by recurrent hospitalizations for diabetic ketoacidosis, chronic pancreatitis, hypothyroidism, coronary artery disease, hyperlipidemia admitted for diabetic ketoacidosis. #Resolved diabetic ketoacidosis #Resolved prerenal acute kidney injury #Insulin-dependent diabetes mellitus, poorly controlled #Coronary artery disease, stable #Hypothyroidism #Chronic pancreatitis #Essential tremor Plan -Discontinued insulin infusion, monitor for recurrence of diabetic ketoacidosis. -Lantus 30 units twice daily and correction Humalog SSIhigh. -Adjust basal/bolus insulin doses as needed, hemoglobin A1c was 12.9. -Discontinued IV fluid. -Continue home atorvastatin, duloxetine, gabapentin, levothyroxine. -Consistent carbohydrate diet. -PT and OT. -DVT prophylaxis: Heparin SQ -CODE STATUS: Limited -Disposition: Probably SNF for rehab. Likely higher doses of insulin at discharge. Time Spent With Patient Time: Total time spent is greater than 50% in coordination of care (as documented) at patient's floor/unit and/or counseling patient: QUALITY VTE Deep Vein Thrombosis/Pulmonary Embolism Present on Admission: No
[2021-12-21] MEDS: HYOSCYAMINE SULFATE 0.125 MG TABLET PO PRN ×2 (12:55→20:35)
[2021-12-21] MEDS: INSULIN LISPRO 1 UNIT/0.01 ML UNIT SQ SCH ×2 (16:39→20:34)
[2021-12-21] MEDS: ATORVASTATIN 40 MG TABLET PO SCH (20:34)
[2021-12-21] MEDS: INSULIN GLARGINE, HUMAN 1 UNIT/0.01 ML SQ SCH (20:35)
[2021-12-22] MEDS: 0.9 % SODIUM CHLORIDE 10 ML SYRINGE IV SCH ×3 (05:23→21:38)
[2021-12-22] MEDS: INSULIN LISPRO 1 UNIT/0.01 ML UNIT SQ SCH ×4 (07:17→21:37)
[2021-12-22 07:37] LABS: ALT/SGPT 143 U/L (<40); AST/SGOT 393 U/L (<32); Albumin 3.4 gm/dL (3.2-5.2); Albumin/Globulin Ratio 1.4 (1.0-2.3); Alkaline Phosphatase 142 U/L (39-117); Bilirubin,Direct < 0.2 mg/dL (0-0.3); Bilirubin,Total 0.3 mg/dL (0.1-1.0); Blood Urea Nitrogen 9 mg/dL (8-23); Calcium 8.6 mg/dL (8.6-10.4); Carbon Dioxide 21 mmol/L (22-30); Chloride 104 mmol/L (96-108); Globulin 2.4 gm/dL (2.2-3.7); Glomerular Filtration Rate 88; Glucose 176 mg/dL (70-105); Lactate Dehydrogenase 353 U/L (135-225); Phosphorous 1.7 mg/dL (2.5-4.5); Triglycerides 147 mg/dL (<150)
[2021-12-22] MEDS: DOCUSATE SODIUM 100 MG CAPSULE PO SCH ×2 (07:58→21:37)
[2021-12-22] MEDS: DULoxetine 30 MG CAPSULE PO SCH (07:58)
[2021-12-22] MEDS: LEVOTHYROXINE 125 MCG TABLET PO SCH (07:58)
[2021-12-22] MEDS: INSULIN GLARGINE, HUMAN 1 UNIT/0.01 ML SQ SCH ×2 (07:58→21:37)
[2021-12-22] MEDS: HEPARIN 5,000 UNIT/ML VIAL SQ SCH ×2 (07:58→21:38)
[2021-12-22] MEDS: MULTIVIT,THER IRON,CA,FA & MIN 1 TABLET PO SCH (07:58)
[2021-12-22] MEDS: GABAPENTIN 400 MG CAPSULE PO SCH ×4 (07:58→21:37)
[2021-12-22] MEDS: ACYCLOVIR 400 MG TABLET PO SCH ×2 (08:09→21:38)
[2021-12-22] MEDS: PROTEASE PO SCH ×3 (08:09→21:42)
[2021-12-22] MEDS: AMYLASE PO SCH ×3 (08:09→21:42)
[2021-12-22] MEDS: LIPASE PO SCH ×3 (08:09→21:42)
[2021-12-22] MEDS: HYOSCYAMINE SULFATE 0.125 MG TABLET PO PRN ×2 (10:39→19:28)
[2021-12-22] MEDS: SENNOSIDES 1 TABLET PO PRN (12:01)
[2021-12-22] MEDS ORDERED: NEUTRA PHOS 1 PACKET PO SCH (15:00)
--- NOTE | 2021-12-22 15:16 | Internal Med Progress Note ---
SUBJECTIVE Subjective Patient information: Note initiated : 12/22/21 at 3:15 pm Service Date, if different from initiated Date: [] Patient: Tennille Castillo a 76 y/o F admitted on 12/20/21 for High blood sugar. Chief Complaint: [] Interval history: Ms. Castillo is a 76 year old female with a history of insulin-dependent diabetes mellitus complicated by recurrent hospitalizations for diabetic ketoacidosis, chronic pancreatitis, hypothyroidism, coronary artery disease, hyperlipidemia who presented to the ED emergency department at the request of her primary care provider for hyperglycemia. In the emergency department, the patient was found to have a serum glucose of over 700 and a metabolic acidosis as well as an acute kidney injury. A CT abdomen pelvis was done and did not show any acute changes. These findings are consistent with diabetic ketoacidosis, hospital medicine was consulted for admission. The patient was discharged from [facility] on 12/11/2021 after being treated for diabetic ketoacidosis. It appears that the patient was initially recommended go to a alf facility for rehab however the patient eventually went home. The patient says that this was because her insurance had refused payment for a alf facility. It seems like the patient's blood sugar was well controlled during the hospital stay however when the patient returned home she says that the lowest blood sugar she noted was 190. In addition, the patient felt generally weak and lethargic. She was seen by her primary care provider who ordered labs and noted that her blood sugar was extremely elevated and referred her to the emergency department. There is no evidence of infectious causes of diabetic ketoacidosis, no evidence of acute coronary syndrome. Patient says that she was taking her Tresiba and sliding scale insulin as prescribed, she does not feel like she was eating excessive carbohydrates. The patient lives alone and recently has been struggling more with activities of daily living. In particular, she says that she has been having difficulty because of a tremor. On exam the patient does have a significant tremor during activity but disappears at rest consistent with essential tremor. We discussed the plan of care which would include an insulin infusion, correction of electrolyte abnormalities and titrating her basal bolus insulin to achieve better glycemic control. We also discussed the possibility of alf facility for rehab as she appears to be much weaker than she was during her last hospitalization. We discussed CODE STATUS in detail, the patient wishes to be a limited cold that would include CPR, vasopressors, defibrillation and resynchronization shocks as indicated but not intubation. 12/21 Diabetic ketoacidosis resolved, transitioned off insulin infusion to basal bolus subcutaneous insulin regimen. Awaiting PT and OT recommendations. Transfer to [facility]. 12/22 Elevated LFTs, will follow tomorrow. Recent abdominal ultrasound reviewed. Replacing phosphorus. Otherwise CM working on prior authorization for short term SNF rehab. Physical exam Head: Small bruise over left orbit. Eyes: normal appearance, no scleral icterus. Neck: full ROM Respiratory: no respiratory distress. Cardiovascular: normal rate and rhythm, S1, S2. GI/Abdominal: soft, nontender, no guarding. Extremities: full range of motion, nontender. Neurological: CN II-XII intact, intact motor, intact sensation. Psychiatric: normal mood. Skin: warm, normal color Constitutional Vitals: Vital Signs Temp Pulse Resp BP Pulse Ox 97.6 F 64 18 121/64 91 12/22/21 12:00 12/22/21 12:00 12/22/21 12:00 12/22/21 12:00 12/22/21 12:00 Period Temp Pulse Resp BP Sys/Rosario Pulse Ox Last 24 Hr 97.6 F-98.9 F 64-78 14-18 121-147/63-76 91-99 Intake and Output 12/22/21 12/22/21 12/22/21 05:59 13:59 21:59 Intake Total 1800 247 Output Total 2225 1300 Balance -425 -1300 247 Weight 82.645 kg 82.645 kg Patient Weight 12/23/21 05:59 Weight 82.645 kg Intake & Output: Intake & Output 12/22/21 12/22/21 12/22/21 05:59 13:59 21:59 Intake Total 1800 247 Output Total 2225 1300 Balance -425 -1300 247 Weight 82.645 kg 82.645 kg Intake: IV 247 Sodium Chloride 0.9% 250 ml @ 247 20 mls/hr IV .[id number] PEG Rx#: [id number] Oral 1800 Output: Void Amount 2225 1300 Other: Urine Appearance Clear Urine Color Bright Yellow Urine Odor Normal OBJ DATA Labs CBC & Chem 7: 12/20/21 11:18 12/22/21 05:37 Labs: Abnormal Lab Results 12/22/21 12/21/2122 05:37 08:02 08:02 RDW MPV ABG Methemoglobin VBG pH VBG pCO2 VBG pO2 VBG HCO3 VBG Total CO2 VBG O2 Saturation VBG Base Excess Carboxyhemoglobin Total Hemoglobin POC Sodium Sodium Chloride Carbon Dioxide 21 L 20 L POC Total CO2 Anion Gap Creatinine Glucose 176 H 187 H POC Glucose Hemoglobin A1c 12.9 H Uric Acid Phosphorus 1.7 L GGT 259 H AST 393 H ALT 143 H Alkaline Phosphatase 142 H Lactate Dehydrogenase 353 H Total Protein 5.8 L Triglycerides Beta-Hydroxybutyrate Urine Glucose (UA) Urine Ketones Urine WBC Urine Mucus 12/21/21 12/21/21 12/21/21 08:02 03:36 03:35 RDW MPV ABG Methemoglobin 0.2 L 0.3 L VBG pH VBG pCO2 36.3 L 36.5 L VBG pO2 104.4 H 95.3 H VBG HCO3 20.1 L 20.4 L VBG Total CO2 21.2 L 21.6 L VBG O2 Saturation 92.5 H 93.6 H VBG Base Excess -5 L -4 L Carboxyhemoglobin 4.9 H 3.0 H Total Hemoglobin 11.7 L 11.5 L POC Sodium Sodium Chloride Carbon Dioxide 20 L POC Total CO2 Anion Gap Creatinine Glucose POC Glucose Hemoglobin A1c Uric Acid Phosphorus GGT AST ALT Alkaline Phosphatase Lactate Dehydrogenase Total Protein Triglycerides Beta-Hydroxybutyrate Urine Glucose (UA) Urine Ketones Urine WBC Urine Mucus 12/20/21 12/20/21 12/20/21 23:21 23:21 19:34 RDW MPV ABG Methemoglobin 0.2 L 0.3 L VBG pH VBG pCO2 35.8 L 36.8 L VBG pO2 115.4 H 71.2 H VBG HCO3 21.5 L 20.4 L VBG Total CO2 22.6 L 21.5 L VBG O2 Saturation 93.2 H 90.3 H VBG Base Excess -3 L -5 L Carboxyhemoglobin 4.4 H 4.0 H Total Hemoglobin 11.6 L POC Sodium Sodium Chloride Carbon Dioxide 19 L POC Total CO2 Anion Gap Creatinine Glucose 128 H POC Glucose Hemoglobin A1c Uric Acid Phosphorus GGT AST ALT Alkaline Phosphatase Lactate Dehydrogenase Total Protein Triglycerides Beta-Hydroxybutyrate Urine Glucose (UA) Urine Ketones Urine WBC Urine Mucus 12/20/21 12/20/21 12/20/21 15:23 15:23 12:40 RDW MPV ABG Methemoglobin 0.1 L VBG pH 7.26 L VBG pCO2 29.9 L VBG pO2 80.3 H VBG HCO3 13.1 L VBG Total CO2 14.1 L VBG O2 Saturation 91.6 H VBG Base Excess -13 L Carboxyhemoglobin 3.3 H Total Hemoglobin POC Sodium Sodium 129 L Chloride 95 L Carbon Dioxide 13 L POC Total CO2 Anion Gap 21.0 H Creatinine Glucose 456 H* POC Glucose Hemoglobin A1c Uric Acid 8.2 H Phosphorus GGT 242 H AST 77 H ALT 69 H Alkaline Phosphatase 151 H Lactate Dehydrogenase Total Protein Triglycerides 278 H Beta-Hydroxybutyrate 5.05 H Urine Glucose (UA) >=500 A Urine Ketones 80 A Urine WBC 7 H Urine Mucus Few A 12/20/21 12/20/21 11:18 11:18 RDW 15.2 H MPV 10.5 H ABG Methemoglobin VBG pH VBG pCO2 VBG pO2 VBG HCO3 VBG Total CO2 VBG O2 Saturation VBG Base Excess Carboxyhemoglobin Total Hemoglobin POC Sodium 126 L Sodium 124 L Chloride 85 L Carbon Dioxide 10 L* POC Total CO2 12 L Anion Gap 29.0 H Creatinine 1.2 H Glucose 788 H* POC Glucose > 700 H* Hemoglobin A1c Uric Acid Phosphorus GGT AST 105 H ALT 83 H Alkaline Phosphatase 172 H Lactate Dehydrogenase Total Protein Triglycerides Beta-Hydroxybutyrate Urine Glucose (UA) Urine Ketones Urine WBC Urine Mucus Meds: Medications Acetaminophen (Acetaminophen 325 Mg Tablet) 650 mg PO Q6HP PRN; Protocol PRN Reason: Per Pain Protocol/Fever > 101 Last Admin: 12/20/21 18:49 Dose: 650 mg Documented by: Acyclovir (Acyclovir 400 Mg Tablet) 400 mg PO BID [facility]; Protocol Last Admin: 12/22/21 08:09 Dose: 400 mg Documented by: Atorvastatin Calcium (Atorvastatin 40 Mg Tablet) 40 mg PO QHS [facility] Last Admin: 12/21/21 20:34 Dose: 40 mg Documented by: Dextrose (Dextrose 50% 50 Ml Vial) 0 ml IV UD PRN PRN Reason: Per Sliding Scale Diagnostic Test (Pha) (Accu-Chek 1 Each Strip) 1 each FS ACHS [facility] Last Admin: 12/22/21 11:57 Dose: 1 each Documented by: Docusate Sodium (Docusate Sodium 100 Mg Capsule) 100 mg PO BID [facility] Last Admin: 12/22/21 07:58 Dose: 100 mg Documented by: Duloxetine HCl (Duloxetine 30 Mg Capsule) 30 mg PO QDAY [facility] Last Admin: 12/22/21 07:58 Dose: 30 mg Documented by: Gabapentin (Gabapentin 400 Mg Capsule) 800 mg PO QID [facility] Last Admin: 12/22/21 13:29 Dose: 800 mg Documented by: Glucose (Dextrose 31 Gm Oral.Susp) 15 gm PO PRN PRN PRN Reason: Hypoglycemia Heparin Sodium (Porcine) (Heparin 5,000 Unit/Ml Vial) 5,000 unit SQ Q12 [facility] Last Admin: 12/22/21 07:58 Dose: 5,000 unit Documented by: Hyoscyamine (Hyoscyamine Sulfate 0.125 Mg Tablet) 0.125 mg PO Q6HP PRN PRN Reason: Abdominal Discomfort Last Admin: 12/22/21 10:39 Dose: 0.125 mg Documented by: Insulin Glargine (Insulin Glargine, Human 1 Unit/0.01 Ml) 30 unit SQ BID [facility] Last Admin: 12/22/21 07:58 Dose: 30 units Documented by: Insulin Human Lispro (Insulin Lispro 1 Unit/0.01 Ml Unit) 0 unit SQ ACHS [facility]; Protocol Last Admin: 12/22/21 11:56 Dose: 9 units Documented by: Iron Carb/Multivit/[place]/Folic Acid (Multivit,Ther Iron,Ca,Fa & Min 1 Tablet) 1 tab PO DAILY [facility] Last Admin: 12/22/21 07:58 Dose: 1 tab Documented by: Lactulose (Lactulose 20 Gm/30 Ml Oral.Alley) 10 gm PO DAILYP PRN PRN Reason: Constipation Levothyroxine Sodium (Levothyroxine 125 Mcg Tablet) 125 mcg PO QDAY [facility] Last Admin: 12/22/21 07:58 Dose: 125 mcg Documented by: Melatonin (Melatonin 3 Mg Tablet) 3 mg PO HSP PRN PRN Reason: Insomnia Ondansetron HCl (Ondansetron 4 Mg/2 Ml Vial) 4 mg IV Q4HP PRN; Protocol PRN Reason: Nausea And Vomiting Lipase 40,000 Fpc Units, Protease 126, 000 Fpc Units, And Amylase 168,000 Fpc 1 dose PO TID [facility] Last Admin: 12/22/21 14:54 Dose: 1 dose Documented by: Senna (Sennosides 1 Tablet) 2 tab PO HSP PRN PRN Reason: Constipation Last Admin: 12/22/21 12:01 Dose: 2 tab Documented by: Sodium Chloride (0.9 % Sodium Chloride 10 Ml Syringe) 10 ml IV Q8 PEG Last Admin: 12/22/21 14:52 Dose: 10 ml Documented by: ABG Interpretation ABG results: 12/20/21 12/20/21 12/20/21 15:23 19:34 23:21 ABG Methemoglobin 0.1 L 0.3 L 0.2 L VBG pH 7.26 L 7.36 7.40 VBG pCO2 29.9 L 36.8 L 35.8 L VBG pO2 80.3 H 71.2 H 115.4 H VBG HCO3 13.1 L 20.4 L 21.5 L VBG Total CO2 14.1 L 21.5 L 22.6 L VBG O2 Saturation 91.6 H 90.3 H 93.2 H VBG Base Excess -13 L -5 L -3 L 12/21/21 12/21/21 03:35 08:02 ABG Methemoglobin 0.3 L 0.2 L VBG pH 7.37 7.36 VBG pCO2 36.5 L 36.3 L VBG pO2 95.3 H 104.4 H VBG HCO3 20.4 L 20.1 L VBG Total CO2 21.6 L 21.2 L VBG O2 Saturation 93.6 H 92.5 H VBG Base Excess -4 L -5 L A/P Narrative A/P Narrative: Assessment: 76 year old female with a history of insulin-dependent diabetes mellitus complicated by recurrent hospitalizations for diabetic ketoacidosis, chronic pancreatitis, hypothyroidism, coronary artery disease, hyperlipidemia admitted for diabetic ketoacidosis. #Elevated LFTs #Resolved diabetic ketoacidosis #Resolved prerenal acute kidney injury #Insulin-dependent diabetes mellitus, poorly controlled #Coronary artery disease, stable #Hypothyroidism #Chronic pancreatitis #Essential tremor Plan -Lantus 30 units twice daily and correction Humalog SSIhigh. -Add prandial Humalog 3 units AC. -Adjust basal/bolus insulin doses as needed, hemoglobin A1c was 12.9. -Monitor LFTs, consider liver imaging. History of cholecystectomy noted. -Continue home atorvastatin, duloxetine, gabapentin, levothyroxine. -Consistent carbohydrate diet. -PT and OT. -DVT prophylaxis: Heparin SQ -CODE STATUS: Limited -Disposition: SNF for rehab. Likely higher doses of insulin at discharge. Time Spent With Patient Time: Total time spent is greater than 50% in coordination of care (as documented) at patient's floor/unit and/or counseling patient: QUALITY VTE Deep Vein Thrombosis/Pulmonary Embolism Present on Admission: No
[2021-12-22] MEDS ORDERED: INSULIN LISPRO 1 UNIT/0.01 ML UNIT SQ SCH (17:00)
[2021-12-22] MEDS: NEUTRA PHOS 1 PACKET PO SCH (21:36)
[2021-12-22] MEDS: MELATONIN 3 MG TABLET PO PRN (21:38)
[2021-12-22] MEDS: ATORVASTATIN 40 MG TABLET PO SCH (21:38)
[2021-12-23] MEDS: 0.9 % SODIUM CHLORIDE 10 ML SYRINGE IV SCH ×3 (06:01→20:30)
[2021-12-23] MEDS ORDERED: INSULIN LISPRO 1 UNIT/0.01 ML UNIT SQ SCH (07:00)
[2021-12-23 07:18] LABS: ALT/SGPT 146 U/L (<40); AST/SGOT 308 U/L (<32); Albumin 3.6 gm/dL (3.2-5.2); Albumin/Globulin Ratio 1.4 (1.0-2.3); Alkaline Phosphatase 156 U/L (39-117); Bilirubin,Direct < 0.2 mg/dL (0-0.3); Bilirubin,Total 0.3 mg/dL (0.1-1.0); Blood Urea Nitrogen 8 mg/dL (8-23); Calcium 8.6 mg/dL (8.6-10.4); Carbon Dioxide 28 mmol/L (22-30); Chloride 105 mmol/L (96-108); Globulin 2.5 gm/dL (2.2-3.7); Glomerular Filtration Rate 94; Glucose 70 mg/dL (70-105); Lactate Dehydrogenase 281 U/L (135-225); Phosphorous 2.5 mg/dL (2.5-4.5); Triglycerides 198 mg/dL (<150); Uric Acid 4.2 mg/dL (2.5-8.0)
[2021-12-23] MEDS: INSULIN LISPRO 1 UNIT/0.01 ML UNIT SQ SCH ×7 (07:55→20:29)
[2021-12-23] MEDS: HEPARIN 5,000 UNIT/ML VIAL SQ SCH ×2 (08:28→20:29)
[2021-12-23] MEDS: NEUTRA PHOS 1 PACKET PO SCH ×2 (08:28→20:29)
[2021-12-23] MEDS: AMYLASE PO SCH ×3 (08:29→16:53)
[2021-12-23] MEDS: GABAPENTIN 400 MG CAPSULE PO SCH ×4 (08:29→20:28)
[2021-12-23] MEDS: LEVOTHYROXINE 125 MCG TABLET PO SCH (08:29)
[2021-12-23] MEDS: HYOSCYAMINE SULFATE 0.125 MG TABLET PO PRN ×2 (08:29→22:26)
[2021-12-23] MEDS: LIPASE PO SCH ×3 (08:29→16:53)
[2021-12-23] MEDS: DOCUSATE SODIUM 100 MG CAPSULE PO SCH ×2 (08:29→20:28)
[2021-12-23] MEDS: DULoxetine 30 MG CAPSULE PO SCH (08:29)
[2021-12-23] MEDS: MULTIVIT,THER IRON,CA,FA & MIN 1 TABLET PO SCH (08:29)
[2021-12-23] MEDS: PROTEASE PO SCH ×3 (08:29→16:53)
[2021-12-23] MEDS: ACYCLOVIR 400 MG TABLET PO SCH ×2 (08:29→20:29)
[2021-12-23] MEDS: INSULIN GLARGINE, HUMAN 1 UNIT/0.01 ML SQ SCH (08:30)
[2021-12-23] MEDS ORDERED: POTASSIUM CHLORIDE 20 MEQ TABLET PO ONE (09:21)
[2021-12-23] MEDS: ACETAMINOPHEN 325 MG TABLET PO PRN (09:44)
[2021-12-23] MEDS: SENNOSIDES 1 TABLET PO PRN (11:42)
--- NOTE | 2021-12-23 13:17 | Internal Med Progress Note ---
SUBJECTIVE Subjective Patient information: Note initiated : 12/23/21 at 1:13 pm Service Date, if different from initiated Date: [] Patient: Tennille Castillo a 76 y/o F admitted on 12/20/21 for High blood sugar. Chief Complaint: [] Interval history: Ms. Castillo is a 76 year old female with a history of insulin-dependent diabetes mellitus complicated by recurrent hospitalizations for diabetic ketoacidosis, chronic pancreatitis, hypothyroidism, coronary artery disease, hyperlipidemia who presented to the ED emergency department at the request of her primary care provider for hyperglycemia. In the emergency department, the patient was found to have a serum glucose of over 700 and a metabolic acidosis as well as an acute kidney injury. A CT abdomen pelvis was done and did not show any acute changes. These findings are consistent with diabetic ketoacidosis, hospital medicine was consulted for admission. The patient was discharged from [facility] on 12/11/2021 after being treated for diabetic ketoacidosis. It appears that the patient was initially recommended go to a [facility] facility for rehab however the patient eventually went home. The patient says that this was because her insurance had refused payment for a [facility] facility. It seems like the patient's blood sugar was well controlled during the hospital stay however when the patient returned home she says that the lowest blood sugar she noted was 190. In addition, the patient felt generally weak and lethargic. She was seen by her primary care provider who ordered labs and noted that her blood sugar was extremely elevated and referred her to the emergency department. There is no evidence of infectious causes of diabetic ketoacidosis, no evidence of acute coronary syndrome. Patient says that she was taking her Tresiba and sliding scale insulin as prescribed, she does not feel like she was eating excessive carbohydrates. The patient lives alone and recently has been struggling more with activities of daily living. In particular, she says that she has been having difficulty because of a tremor. On exam the patient does have a significant tremor during activity but disappears at rest consistent with essential tremor. We discussed the plan of care which would include an insulin infusion, correction of electrolyte abnormalities and titrating her basal bolus insulin to achieve better glycemic control. We also discussed the possibility of [facility] facility for rehab as she appears to be much weaker than she was during her last hospitalization. We discussed CODE STATUS in detail, the patient wishes to be a limited cold that would include CPR, vasopressors, defibrillation and resynchronization shocks as indicated but not intubation. 12/21 Diabetic ketoacidosis resolved, transitioned off insulin infusion to basal bolus subcutaneous insulin regimen. Awaiting PT and OT recommendations. Transfer to [facility]. 12/22 Elevated LFTs, will follow tomorrow. Recent abdominal ultrasound reviewed. Replacing phosphorus. Otherwise CM working on prior authorization for short term SNF rehab. 12/23 LFTs trending down, no abdominal tenderness. Morning glucose was 77 but the patient was hypergycemic during the daytime yesterday. Decreased Lantus to 50 units once a day, increased prandial Humalog to 7 units with meals and decreased sliding scale humalog to medium dose. Pending placement. Physical exam Head: Small bruise over left orbit. Eyes: normal appearance, no scleral icterus. Neck: full ROM Respiratory: no respiratory distress. Cardiovascular: normal rate and rhythm, S1, S2. GI/Abdominal: soft, nontender, no guarding. Extremities: full range of motion, nontender. Neurological: CN II-XII intact, intact motor, intact sensation. Psychiatric: normal mood. Skin: warm, normal color Constitutional Vitals: Vital Signs Temp Pulse Resp BP Pulse Ox 97.2 F 82 18 134/70 96 12/23/21 11:29 12/23/21 11:29 12/23/21 11:29 12/23/21 11:29 12/23/21 11:29 Period Temp Pulse Resp BP Sys/Rosario Pulse Ox Last 24 Hr 97.2 F-98.3 F 72-92 14-19 120-156/63-83 92-99 Intake and Output 12/22/21 12/23/21 12/23/21 21:59 05:59 13:59 Intake Total 607 350 240 Output Total 1225 900 900 Balance -555 -391 -992 Weight 75.16 kg Intake & Output: Intake & Output 12/22/21 12/23/21 12/23/21 21:59 05:59 13:59 Intake Total 607 350 240 Output Total 1225 900 900 Balance -747 -550 660 Weight 75.16 kg Intake: IV 247 Sodium Chloride 0.9% 250 ml @ 247 20 mls/hr IV .[id number] [facility] Rx#: [id number] Oral 360 350 240 Output: Void Amount 1225 900 900 Other: Meal Breakfast Percent of Meal Consumed 100% Feeding Ability Independent Urine Appearance Clear Urine Color Light Brittani Urine Odor Normal OBJ DATA Labs CBC & Chem 7: 12/20/21 11:18 12/23/21 05:21 Labs: Abnormal Lab Results 12/23/21 12/22/21 12/21/21 05:21 05:37 08:02 ABG Methemoglobin VBG pH VBG pCO2 VBG pO2 VBG HCO3 VBG Total CO2 VBG O2 Saturation VBG Base Excess Carboxyhemoglobin Total Hemoglobin Sodium Potassium 3.0 L Chloride Carbon Dioxide 21 L Anion Gap Creatinine 0.5 L Glucose 176 H Hemoglobin A1c 12.9 H Uric Acid Phosphorus 1.7 L GGT 291 H 259 H AST 308 H 393 H ALT 146 H 143 H Alkaline Phosphatase 156 H 142 H Lactate Dehydrogenase 281 H 353 H Total Protein 5.8 L Triglycerides 198 H Beta-Hydroxybutyrate Urine Glucose (UA) Urine Ketones Urine WBC Urine Mucus 12/21/21 12/21/21 12/21/21 08:02 08:02 03:36 ABG Methemoglobin 0.2 L VBG pH VBG pCO2 36.3 L VBG pO2 104.4 H VBG HCO3 20.1 L VBG Total CO2 21.2 L VBG O2 Saturation 92.5 H VBG Base Excess -5 L Carboxyhemoglobin 4.9 H Total Hemoglobin 11.7 L Sodium Potassium Chloride Carbon Dioxide 20 L 20 L Anion Gap Creatinine Glucose 187 H Hemoglobin A1c Uric Acid Phosphorus GGT AST ALT Alkaline Phosphatase Lactate Dehydrogenase Total Protein Triglycerides Beta-Hydroxybutyrate Urine Glucose (UA) Urine Ketones Urine WBC Urine Mucus 12/21/21 12/20/21 12/20/21 03:35 23:21 23:21 ABG Methemoglobin 0.3 L 0.2 L VBG pH VBG pCO2 36.5 L 35.8 L VBG pO2 95.3 H 115.4 H VBG HCO3 20.4 L 21.5 L VBG Total CO2 21.6 L 22.6 L VBG O2 Saturation 93.6 H 93.2 H VBG Base Excess -4 L -3 L Carboxyhemoglobin 3.0 H 4.4 H Total Hemoglobin 11.5 L 11.6 L Sodium Potassium Chloride Carbon Dioxide 19 L Anion Gap Creatinine Glucose 128 H Hemoglobin A1c Uric Acid Phosphorus GGT AST ALT Alkaline Phosphatase Lactate Dehydrogenase Total Protein Triglycerides Beta-Hydroxybutyrate Urine Glucose (UA) Urine Ketones Urine WBC Urine Mucus 12/20/21 12/20/21 12/20/21 19:34 15:23 15:23 ABG Methemoglobin 0.3 L 0.1 L VBG pH 7.26 L VBG pCO2 36.8 L 29.9 L VBG pO2 71.2 H 80.3 H VBG HCO3 20.4 L 13.1 L VBG Total CO2 21.5 L 14.1 L VBG O2 Saturation 90.3 H 91.6 H VBG Base Excess -5 L -13 L Carboxyhemoglobin 4.0 H 3.3 H Total Hemoglobin Sodium 129 L Potassium Chloride 95 L Carbon Dioxide 13 L Anion Gap 21.0 H Creatinine Glucose 456 H* Hemoglobin A1c Uric Acid 8.2 H Phosphorus GGT 242 H AST 77 H ALT 69 H Alkaline Phosphatase 151 H Lactate Dehydrogenase Total Protein Triglycerides 278 H Beta-Hydroxybutyrate 5.05 H Urine Glucose (UA) Urine Ketones Urine WBC Urine Mucus 12/20/21 12:40 ABG Methemoglobin VBG pH VBG pCO2 VBG pO2 VBG HCO3 VBG Total CO2 VBG O2 Saturation VBG Base Excess Carboxyhemoglobin Total Hemoglobin Sodium Potassium Chloride Carbon Dioxide Anion Gap Creatinine Glucose Hemoglobin A1c Uric Acid Phosphorus GGT AST ALT Alkaline Phosphatase Lactate Dehydrogenase Total Protein Triglycerides Beta-Hydroxybutyrate Urine Glucose (UA) >=500 A Urine Ketones 80 A Urine WBC 7 H Urine Mucus Few A Meds: Medications Acetaminophen (Acetaminophen 325 Mg Tablet) 650 mg PO Q6HP PRN; Protocol PRN Reason: Per Pain Protocol/Fever > 101 Last Admin: 12/23/21 09:44 Dose: 650 mg Documented by: Acyclovir (Acyclovir 400 Mg Tablet) 400 mg PO BID [facility]; Protocol Last Admin: 12/23/21 08:29 Dose: 400 mg Documented by: Atorvastatin Calcium (Atorvastatin 40 Mg Tablet) 40 mg PO QHS [facility] Last Admin: 12/22/21 21:38 Dose: 40 mg Documented by: Dextrose (Dextrose 50% 50 Ml Vial) 0 ml IV UD PRN PRN Reason: Per Sliding Scale Diagnostic Test (Pha) (Accu-Chek 1 Each Strip) 1 each FS ACHS [facility] Last Admin: 12/23/21 11:43 Dose: 1 each Documented by: Docusate Sodium (Docusate Sodium 100 Mg Capsule) 100 mg PO BID [facility] Last Admin: 12/23/21 08:29 Dose: 100 mg Documented by: Duloxetine HCl (Duloxetine 30 Mg Capsule) 30 mg PO QDAY [facility] Last Admin: 12/23/21 08:29 Dose: 30 mg Documented by: Gabapentin (Gabapentin 400 Mg Capsule) 800 mg PO QID [facility] Last Admin: 12/23/21 12:37 Dose: 800 mg Documented by: Glucose (Dextrose 31 Gm Oral.Susp) 15 gm PO PRN PRN PRN Reason: Hypoglycemia Heparin Sodium (Porcine) (Heparin 5,000 Unit/Ml Vial) 5,000 unit SQ Q12 [facility] Last Admin: 12/23/21 08:28 Dose: 5,000 unit Documented by: Hyoscyamine (Hyoscyamine Sulfate 0.125 Mg Tablet) 0.125 mg PO Q6HP PRN PRN Reason: Abdominal Discomfort Last Admin: 12/23/21 08:29 Dose: 0.125 mg Documented by: Insulin Glargine (Insulin Glargine, Human 1 Unit/0.01 Ml) 10 unit SQ HS [facility] Stop: 12/23/21 21:01 Insulin Glargine (Insulin Glargine, Human 1 Unit/0.01 Ml) 50 unit SQ DAILY [facility] Insulin Human Lispro (Insulin Lispro 1 Unit/0.01 Ml Unit) 0 unit SQ ACHS [facility]; P rotocol Last Admin: 12/23/21 11:42 Dose: 2 units Documented by: Insulin Human Lispro (Insulin Lispro 1 Unit/0.01 Ml Unit) 7 unit SQ AC [facility] Last Admin: 12/23/21 11:42 Dose: 7 units Documented by: Iron Carb/Multivit/[employer]/Folic Acid (Multivit,Ther Iron,Ca,Fa & Min 1 Tablet) 1 tab PO DAILY [facility] Last Admin: 12/23/21 08:29 Dose: 1 tab Documented by: Lactulose (Lactulose 20 Gm/30 Ml Oral.Alley) 10 gm PO DAILYP PRN PRN Reason: Constipation Last Admin: 12/23/21 07:28 Dose: 10 gm Documented by: Levothyroxine Sodium (Levothyroxine 125 Mcg Tablet) 125 mcg PO QDAY [facility] Last Admin: 12/23/21 08:29 Dose: 125 mcg Documented by: Melatonin (Melatonin 3 Mg Tablet) 3 mg PO HSP PRN PRN Reason: Insomnia Last Admin: 12/22/21 21:38 Dose: 3 mg Documented by: Ondansetron HCl (Ondansetron 4 Mg/2 Ml Vial) 4 mg IV Q4HP PRN; Protocol PRN Reason: Nausea And Vomiting Lipase 40,000 Correction Units, Protease 126, 000 Correction Units, And Amylase 168,000 Correction 1 dose PO TIDCC PEG Potassium/Phosphorus/Sodium (Neutra Phos 1 Packet) 2 packet PO BID [facility] Stop: 12/23/21 21:01 Last Admin: 12/23/21 08:28 Dose: 2 packet Documented by: Senna (Sennosides 1 Tablet) 2 tab PO HSP PRN PRN Reason: Constipation Last Admin: 12/23/21 11:42 Dose: 2 tab Documented by: Sodium Chloride (0.9 % Sodium Chloride 10 Ml Syringe) 10 ml IV Q8 [facility] Last Admin: 12/23/21 06:01 Dose: 10 ml Documented by: ABG Interpretation ABG results: 12/20/21 12/20/21 12/20/21 15:23 19:34 23:21 ABG Methemoglobin 0.1 L 0.3 L 0.2 L VBG pH 7.26 L 7.36 7.40 VBG pCO2 29.9 L 36.8 L 35.8 L VBG pO2 80.3 H 71.2 H 115.4 H VBG HCO3 13.1 L 20.4 L 21.5 L VBG Total CO2 14.1 L 21.5 L 22.6 L VBG O2 Saturation 91.6 H 90.3 H 93.2 H VBG Base Excess -13 L -5 L -3 L 12/21/21 12/21/21 03:35 08:02 ABG Methemoglobin 0.3 L 0.2 L VBG pH 7.37 7.36 VBG pCO2 36.5 L 36.3 L VBG pO2 95.3 H 104.4 H VBG HCO3 20.4 L 20.1 L VBG Total CO2 21.6 L 21.2 L VBG O2 Saturation 93.6 H 92.5 H VBG Base Excess -4 L -5 L A/P Narrative A/P Narrative: Assessment: 76 year old female with a history of insulin-dependent diabetes mellitus complicated by recurrent hospitalizations for diabetic ketoacidosis, chronic pancreatitis, hypothyroidism, coronary artery disease, hyperlipidemia admitted for diabetic ketoacidosis. #Elevated LFTs #Resolved diabetic ketoacidosis #Resolved prerenal acute kidney injury #Insulin-dependent diabetes mellitus, poorly controlled #Coronary artery disease, stable #Hypothyroidism #Chronic pancreatitis #Essential tremor Plan -Change Lantus to 50 units daily, previously 30 units BID. -Increase prandial Humalog to 7 units with meals. -Decrease correction Humalog SSI to medium. -Adjust basal/bolus insulin doses as needed, hemoglobin A1c was 12.9. -Monitor LFTs, consider liver imaging. History of cholecystectomy noted. -Continue home atorvastatin, duloxetine, gabapentin, levothyroxine. -Consistent carbohydrate diet. -PT and OT. -DVT prophylaxis: Heparin SQ -CODE STATUS: Limited -Disposition: SNF for rehab. Likely higher doses of insulin at discharge. Time Spent With Patient Time: Total time spent is greater than 50% in coordination of care (as documented) at patient's floor/unit and/or counseling patient: QUALITY VTE Deep Vein Thrombosis/Pulmonary Embolism Present on Admission: No
[2021-12-23] MEDS ORDERED: POLYETHYLENE GLYCOL 3350 17 GM PACKET ONE (16:43)
[2021-12-23] MEDS: POLYETHYLENE GLYCOL 3350 17 GM PACKET PO SCH (16:46)
[2021-12-23] MEDS: ATORVASTATIN 40 MG TABLET PO SCH (20:28)
[2021-12-23] MEDS: MELATONIN 3 MG TABLET PO PRN (20:29)
[2021-12-23] MEDS ORDERED: INSULIN GLARGINE, HUMAN 1 UNIT/0.01 ML SQ SCH (21:00)
[2021-12-24] MEDS: 0.9 % SODIUM CHLORIDE 10 ML SYRINGE IV SCH ×3 (05:06→20:27)
[2021-12-24] MEDS: MULTIVIT,THER IRON,CA,FA & MIN 1 TABLET PO SCH (08:13)
[2021-12-24] MEDS: GABAPENTIN 400 MG CAPSULE PO SCH ×4 (08:14→20:26)
[2021-12-24] MEDS: ACYCLOVIR 400 MG TABLET PO SCH ×2 (08:14→20:26)
[2021-12-24] MEDS: DULoxetine 30 MG CAPSULE PO SCH (08:14)
[2021-12-24] MEDS: ACETAMINOPHEN 325 MG TABLET PO PRN (08:14)
[2021-12-24] MEDS: HYOSCYAMINE SULFATE 0.125 MG TABLET PO PRN ×3 (08:14→21:21)
[2021-12-24] MEDS: LEVOTHYROXINE 125 MCG TABLET PO SCH (08:14)
[2021-12-24] MEDS: LIPASE PO SCH ×3 (08:15→17:04)
[2021-12-24] MEDS: AMYLASE PO SCH ×3 (08:15→17:04)
[2021-12-24] MEDS: INSULIN GLARGINE, HUMAN 1 UNIT/0.01 ML SQ SCH (08:15)
[2021-12-24] MEDS: PROTEASE PO SCH ×3 (08:15→17:04)
[2021-12-24] MEDS: HEPARIN 5,000 UNIT/ML VIAL SQ SCH ×2 (08:15→20:26)
[2021-12-24 08:16] LABS: ALT/SGPT 180 U/L (<40); AST/SGOT 348 U/L (<32); Albumin 3.5 gm/dL (3.2-5.2); Albumin/Globulin Ratio 1.3 (1.0-2.3); Alkaline Phosphatase 161 U/L (39-117); Bilirubin,Direct < 0.2 mg/dL (0-0.3); Bilirubin,Total 0.3 mg/dL (0.1-1.0); Blood Urea Nitrogen 6 mg/dL (8-23); Calcium 8.9 mg/dL (8.6-10.4); Carbon Dioxide 28 mmol/L (22-30); Chloride 101 mmol/L (96-108); Globulin 2.6 gm/dL (2.2-3.7); Glomerular Filtration Rate 94; Glucose 121 mg/dL (70-105); Lactate Dehydrogenase 302 U/L (135-225); Phosphorous 2.4 mg/dL (2.5-4.5); Triglycerides 232 mg/dL (<150); Uric Acid 3.3 mg/dL (2.5-8.0)
[2021-12-24] MEDS: INSULIN LISPRO 1 UNIT/0.01 ML UNIT SQ SCH ×7 (08:16→20:26)
[2021-12-24] MEDS: DOCUSATE SODIUM 100 MG CAPSULE PO SCH ×2 (08:20→20:27)
[2021-12-24] MEDS: POLYETHYLENE GLYCOL 3350 17 GM PACKET PO SCH (08:20)
--- NOTE | 2021-12-24 10:09 | Internal Med Progress Note ---
SUBJECTIVE Subjective Patient information: Note initiated : 12/24/21 at 10:09 am Service Date, if different from initiated Date: [] Patient: Tennille Castillo a 76 y/o F admitted on 12/20/21 for High blood sugar. Chief Complaint: [] Interval history: Ms. Castillo is a 76 year old female with a history of insulin-dependent diabetes mellitus complicated by recurrent hospitalizations for diabetic ketoacidosis, chronic pancreatitis, hypothyroidism, coronary artery disease, hyperlipidemia who presented to the ED emergency department at the request of her primary care provider for hyperglycemia. In the emergency department, the patient was found to have a serum glucose of over 700 and a metabolic acidosis as well as an acute kidney injury. A CT abdomen pelvis was done and did not show any acute changes. These findings are consistent with diabetic ketoacidosis, hospital medicine was consulted for admission. The patient was discharged from [facility] on 12/11/2021 after being treated for diabetic ketoacidosis. It appears that the patient was initially recommended go to a assisted facility for rehab however the patient eventually went home. The patient says that this was because her insurance had refused payment for a assisted facility. It seems like the patient's blood sugar was well controlled during the hospital stay however when the patient returned home she says that the lowest blood sugar she noted was 190. In addition, the patient felt generally weak and lethargic. She was seen by her primary care provider who ordered labs and noted that her blood sugar was extremely elevated and referred her to the emergency department. There is no evidence of infectious causes of diabetic ketoacidosis, no evidence of acute coronary syndrome. Patient says that she was taking her Tresiba and sliding scale insulin as prescribed, she does not feel like she was eating excessive carbohydrates. The patient lives alone and recently has been struggling more with activities of daily living. In particular, she says that she has been having difficulty because of a tremor. On exam the patient does have a significant tremor during activity but disappears at rest consistent with essential tremor. We discussed the plan of care which would include an insulin infusion, correction of electrolyte abnormalities and titrating her basal bolus insulin to achieve better glycemic control. We also discussed the possibility of assisted facility for rehab as she appears to be much weaker than she was during her last hospitalization. We discussed CODE STATUS in detail, the patient wishes to be a limited cold that would include CPR, vasopressors, defibrillation and resynchronization shocks as indicated but not intubation. 12/21 Diabetic ketoacidosis resolved, transitioned off insulin infusion to basal bolus subcutaneous insulin regimen. Awaiting PT and OT recommendations. Transfer to [facility]. 12/22 Elevated LFTs, will follow tomorrow. Recent abdominal ultrasound reviewed. Replacing phosphorus. Otherwise CM working on prior authorization for short term SNF rehab. 12/23 LFTs trending down, no abdominal tenderness. Morning glucose was 77 but the patient was hyperglycemic during the daytime yesterday. Decreased Lantus to 50 units once a day, increased prandial Humalog to 7 units with meals and decreased sliding scale humalog to medium dose. Pending placement. 12/24 The patient feels well, LFTs increased from yesterday but no tenderness in the right upper quadrant. Ordered limited abdominal ultrasound for further evaluation, the patient has a history of cholecystectomy. Need to evaluate further with advanced imaging such as MRCP. Otherwise the patient is doing well, awaiting placement. Physical exam Head: Small bruise over left orbit. Eyes: normal appearance, no scleral icterus. Neck: full ROM Respiratory: no respiratory distress. Cardiovascular: normal rate and rhythm, S1, S2. GI/Abdominal: soft, nontender, no guarding. Extremities: full range of motion, nontender. Neurological: CN II-XII intact, intact motor, intact sensation. Psychiatric: normal mood. Skin: warm, normal color Constitutional Vitals: Vital Signs Temp Pulse Resp BP Pulse Ox 97.6 F 74 18 136/73 97 12/24/21 08:00 12/24/21 08:00 12/24/21 08:00 12/24/21 08:00 12/24/21 08:00 Period Temp Pulse Resp BP Sys/Rosario Pulse Ox Last 24 Hr 97.2 F-98.8 F 74-92 14-18 126-144/69-79 96-97 Intake and Output 12/23/21 12/24/21 12/24/21 21:59 05:59 13:59 Intake Total 840 550 Output Total 1650 Balance -810 550 Weight 75.841 kg Intake & Output: Intake & Output 12/23/21 12/24/21 12/24/21 21:59 05:59 13:59 Intake Total 840 550 Output Total 1650 Balance -810 550 Weight 75.841 kg Intake: Oral 240 550 GI Tube Flush 600 Output: Void Amount 1650 Other: Meal Dinner Percent of Meal Consumed 100% Feeding Ability Independent Urine Appearance Clear Urine Color Bright Yellow Urine Odor Normal Stool Size Moderate Stool Color Brown Green Stool Consistency Soft # Voids 1 # Bowel Movements 1 OBJ DATA Labs CBC & Chem 7: 12/20/21 11:18 12/24/21 06:40 Labs: Abnormal Lab Results 12/24/21 12/23/21 12/22/21 06:40 05:21 05:37 Potassium 3.0 L Carbon Dioxide 21 L BUN 6 L Creatinine 0.5 L 0.5 L Glucose 121 H 176 H Hemoglobin A1c Phosphorus 2.4 L 1.7 L GGT 316 H 291 H 259 H AST 348 H 308 H 393 H ALT 180 H 146 H 143 H Alkaline Phosphatase 161 H 156 H 142 H Lactate Dehydrogenase 302 H 281 H 353 H Total Protein 5.8 L Triglycerides 232 H 198 H 12/21/21 08:02 Potassium Carbon Dioxide BUN Creatinine Glucose Hemoglobin A1c 12.9 H Phosphorus GGT AST ALT Alkaline Phosphatase Lactate Dehydrogenase Total Protein Triglycerides Meds: Medications Acetaminophen (Acetaminophen 325 Mg Tablet) 650 mg PO Q6HP PRN; Protocol PRN Reason: Per Pain Protocol/Fever > 101 Last Admin: 12/24/21 08:14 Dose: 650 mg Documented by: Acetaminophen/Butalbital/Caffeine (Butalb/Acetaminophen/Caffeine 1 Tablet) 1 tab PO Q6HP PRN PRN Reason: Headache Acyclovir (Acyclovir 400 Mg Tablet) 400 mg PO BID [facility]; Protocol Last Admin: 12/24/21 08:14 Dose: 400 mg Documented by: Atorvastatin Calcium (Atorvastatin 40 Mg Tablet) 40 mg PO QHS [facility] Last Admin: 12/23/21 20:28 Dose: 40 mg Documented by: Dextrose (Dextrose 50% 50 Ml Vial) 0 ml IV UD PRN PRN Reason: Per Sliding Scale Diagnostic Test (Pha) (Accu-Chek 1 Each Strip) 1 each FS ACHS [facility] Last Admin: 12/24/21 08:16 Dose: 1 each Documented by: Docusate Sodium (Docusate Sodium 100 Mg Capsule) 100 mg PO BID [facility] Last Admin: 12/24/21 08:20 Dose: Not Given Documented by: Duloxetine HCl (Duloxetine 30 Mg Capsule) 30 mg PO QDAY [facility] Last Admin: 12/24/21 08:14 Dose: 30 mg Documented by: Gabapentin (Gabapentin 400 Mg Capsule) 800 mg PO QID [facility] Last Admin: 12/24/21 08:14 Dose: 800 mg Documented by: Glucose (Dextrose 31 Gm Oral.Susp) 15 gm PO PRN PRN PRN Reason: Hypoglycemia Heparin Sodium (Porcine) (Heparin 5,000 Unit/Ml Vial) 5,000 unit SQ Q12 [facility] Last Admin: 12/24/21 08:15 Dose: 5,000 unit Documented by: Hyoscyamine (Hyoscyamine Sulfate 0.125 Mg Tablet) 0.125 mg PO Q6HP PRN PRN Reason: Abdominal Discomfort Last Admin: 12/24/21 08:14 Dose: 0.125 mg Documented by: Insulin Glargine (Insulin Glargine, Human 1 Unit/0.01 Ml) 50 unit SQ DAILY [facility] Last Admin: 12/24/21 08:15 Dose: 50 unit Documented by: Insulin Human Lispro (Insulin Lispro 1 Unit/0.01 Ml Unit) 0 unit SQ [facility]; Protocol Last Admin: 12/24/21 08:16 Dose: Not Given Documented by: Insulin Human Lispro (Insulin Lispro 1 Unit/0.01 Ml Unit) 7 unit SQ AC [facility] Last Admin: 12/24/21 08:16 Dose: 7 units Documented by: Iron Carb/Multivit/Braham/Folic Acid (Multivit,Ther Iron,Ca,Fa & Min 1 Tablet) 1 tab PO DAILY [facility] Last Admin: 12/24/21 08:13 Dose: 1 tab Documented by: Lactulose (Lactulose 20 Gm/30 Ml Oral.Alley) 10 gm PO DAILYP PRN PRN Reason: Constipation Last Admin: 12/23/21 07:28 Dose: 10 gm Documented by: Levothyroxine Sodium (Levothyroxine 125 Mcg Tablet) 125 mcg PO QDAY [facility] Last Admin: 12/24/21 08:14 Dose: 125 mcg Documented by: Melatonin (Melatonin 3 Mg Tablet) 3 mg PO HSP PRN PRN Reason: Insomnia Last Admin: 12/23/21 20:29 Dose: 3 mg Documented by: Ondansetron HCl (Ondansetron 4 Mg/2 Ml Vial) 4 mg IV Q4HP PRN; Protocol PRN Reason: Nausea And Vomiting Lipase 40,000 Residential Units, Protease 126, 000 Residential Units, And Amylase 168,000 Residential 1 dose PO TIDCC [facility] Last Admin: 12/24/21 08:15 Dose: 1 dose Documented by: Polyethylene Glycol (Polyethylene Glycol 3350 17 Gm Packet) 17 gm PO DAILY [facility] Last Admin: 12/24/21 08:20 Dose: Not Given Documented by: Senna (Sennosides 1 Tablet) 2 tab PO HSP PRN PRN Reason: Constipation Last Admin: 12/23/21 11:42 Dose: 2 tab Documented by: Sodium Chloride (0.9 % Sodium Chloride 10 Ml Syringe) 10 ml IV Q8 [facility] Last Admin: 12/24/21 05:06 Dose: 10 ml Documented by: ABG Interpretation ABG results: 12/20/21 12/20/21 12/20/21 15:23 19:34 23:21 ABG Methemoglobin 0.1 L 0.3 L 0.2 L VBG pH 7.26 L 7.36 7.40 VBG pCO2 29.9 L 36.8 L 35.8 L VBG pO2 80.3 H 71.2 H 115.4 H VBG HCO3 13.1 L 20.4 L 21.5 L VBG Total CO2 14.1 L 21.5 L 22.6 L VBG O2 Saturation 91.6 H 90.3 H 93.2 H VBG Base Excess -13 L -5 L -3 L 12/21/21 12/21/21 03:35 08:02 ABG Methemoglobin 0.3 L 0.2 L VBG pH 7.37 7.36 VBG pCO2 36.5 L 36.3 L VBG pO2 95.3 H 104.4 H VBG HCO3 20.4 L 20.1 L VBG Total CO2 21.6 L 21.2 L VBG O2 Saturation 93.6 H 92.5 H VBG Base Excess -4 L -5 L A/P Narrative A/P Narrative: Assessment: 76 year old female with a history of insulin-dependent diabetes mellitus complicated by recurrent hospitalizations for diabetic ketoacidosis, chronic pancreatitis, hypothyroidism, coronary artery disease, hyperlipidemia admitted for diabetic ketoacidosis. Diabetic ketoacidosis resolved. The estuardo bustillos also had a prerenal acute kidney injury with resolved with IV fluids and treating diabetic ketoacidosis. The patient subsequently developed an increase in her liver function tests. #Elevated LFTs of uncertain cause #Resolved diabetic ketoacidosis #Resolved prerenal acute kidney injury #Insulin-dependent diabetes mellitus, poorly controlled #Coronary artery disease, stable #Hypothyroidism #Chronic pancreatitis #Essential tremor Plan -Lantus 50 units daily, previously 30 units BID. -Prandial Humalog 7 units with meals. -Correction Humalog SSI to medium. -Adjust basal/bolus insulin doses as needed, hemoglobin A1c was 12.9. -Limited abdominal ultrasound, consider advanced imaging such as MRCP. -Hold atorvastatin for now for elevated LFTs. -Continue home duloxetine, gabapentin, levothyroxine. -Consistent carbohydrate diet. -PT and OT. -DVT prophylaxis: Heparin SQ -CODE STATUS: Limited -Disposition: SNF for rehab. Likely higher doses of insulin at discharge. Time Spent With Patient Time: Total time spent is greater than 50% in coordination of care (as documented) at patient's floor/unit and/or counseling patient: QUALITY VTE Deep Vein Thrombosis/Pulmonary Embolism Present on Admission: No
--- NOTE | 2021-12-24 11:25 | Ultrasound Report ---
INDICATION: Elevated LFTs TECHNIQUE: Grayscale and color flow Doppler spectral imaging COMPARISON: Previous abdominal and pelvic CT scan dated 12/20/2021 FINDINGS: Gallbladder:Previous cholecystectomy Common bile duct:Dilated common bile duct, unchanged. Common bile duct measures9 mm Liver:Liver is sonographically dense. No detectable mass. Liver contour is smooth. Liver [id number] cm Portal vein:Normal hepatopedal portal venous flow Pancreas:Pancreas is poorly visualized. Pancreatic cyst demonstrated on CT scan are not identified IMPRESSION: 1. Previous cholecystectomy 2. Mild extrahepatic bile duct dilatation 3. Echogenic liver without focal abnormality Interpreted and Authenticated by: Will Peck 12/24/21
--- NOTE | 2021-12-24 12:58 | Discharge Summary ---
Discharge Provider Provider Patient information: Note initiated : 12/24/21 at 12:55 pm Service Date, if different from initiated Date: [] Patient: Tennille Castillo 76 y/o F admitted on 12/20/21 for High blood sugar. Chief Complaint: [] Date of admission: 12/20/21 14:55 Discharge date: 12/25/21 Primary care physician: Faye Porras DO Consults: 12/20/21 Consult to Physician [CONS] Stat Comment: Consulting Provider: Tom Montenegro Reason For Exam: Physician to Consult 12/21/21 08:06 Consult to Physician [CONS] Routine Comment: snf referral Consulting Provider: [facility] [place] Reason For Exam: Physician to Consult Discharge Meds Discharge Medications Home Medications atorvastatin 40 mg tablet 40 mg PO QHS 06/01/21 [History Confirmed 12/20/21 Last Taken Unknown] udyqki-hnudtzsq-vnajald 40,000-126,000-168,000 unit capsule, delay rel (Zenpep) 40,000 cap PO TID 06/01/21 [History Confirmed 12/20/21 Last Taken 12/02/21] Lactobacillus acidophilus (Acidophilus) 2 tab PO BID tab 07/15/21 [History Confirmed 12/20/21 Last Taken 12/02/21] hyoscyamine sulfate 0.125 mg sublingual tablet 0.125 mg PO Q6H PRN tab 07/15/21 [History Confirmed 12/20/21 Last Taken 12/02/21] multivit noo-cczz-GP-herb 186 [Hair, Skin and Nails Advanced] 1 tab PO DAILY 07/15/21 [History Confirmed 12/20/21 Last Taken 12/02/21] trazodone 100 mg tablet 100 mg PO HSP PRN 08/22/21 [History Confirmed 12/20/21 Last Taken 12/01/21] duloxetine 30 mg capsule,delayed release 30 mg PO QDAY 09/20/21 [History Confirmed 12/20/21 Last Taken 12/02/21] acyclovir 400 mg tablet 1 tab PO BID 09/21/21 [History Confirmed 12/20/21 Last Taken 12/02/21] gabapentin 800 mg tablet 1 tab PO QID 09/21/21 [History Confirmed 12/20/21 Last Taken 12/02/21] insulin degludec 100 unit/mL subcutaneous solution (Tresiba U-100 Insulin) 30 unit (0.3 mL) SUBCUT BID #1 ml 09/22/21 [Rx Confirmed 12/20/21 Last Taken 12/01/21] cholecalciferol (vitamin D3) 50 mcg (2,000 unit) capsule (Vitamin D3) 50 mcg PO DAILY 12/04/21 [History Confirmed 12/20/21 Last Taken Unknown] levothyroxine 125 mcg tablet 1 tab PO QDAY 12/04/21 [History Confirmed 12/20/21 Last Taken Unknown] zinc 50 mg tablet 50 mg PO DAILY 12/04/21 [History Confirmed 12/20/21 Last Taken Unknown] insulin regular human 100 unit/mL injection solution (Novolin R Regular U-100 Insulin) See Protocol SUBCUT AC #10 ml 12/25/21 [Rx Last Taken Unknown] COURSE Hospital Course Hospital course: Interval history: Ms. Castillo is a 76 year old female with a history of insulin-dependent diabetes mellitus complicated by recurrent hospitalizations for diabetic ketoacidosis, chronic pancreatitis, hypothyroidism, coronary artery disease, hyperlipidemia who presented to the ED emergency department at the request of her primary care provider for hyperglycemia. In the emergency department, the patient was found to have a serum glucose of over 700 and a metabolic acidosis as well as an acute kidney injury. A CT abdomen pelvis was done and did not show any acute changes. These findings are consistent with diabetic ketoacidosis, hospital medicine was consulted for admission. The patient was discharged from [facility] on 12/11/2021 after being treated for diabetic ketoacidosis. It appears that the patient was initially recommended go to a intermediate facility for rehab however the patient eventually went home. The patient says that this was because her insurance had refused payment for a intermediate facility. It seems like the patient's blood sugar was well controlled during the hospital stay however when the patient returned home she says that the lowest blood sugar she noted was 190. In addition, the patient felt generally weak and lethargic. She was seen by her primary care provider who ordered labs and noted that her blood sugar was extremely elevated and referred her to the emergency department. There is no evidence of infectious causes of diabetic ketoacidosis, no evidence of acute coronary syndrome. Patient says that she was taking her Tresiba and sliding scale insulin as prescribed, she does not feel like she was eating excessive carbohydrates. The patient lives alone and recently has been struggling more with activities of daily living. In particular, she says that she has been having difficulty because of a tremor. On exam the patient does alejandre ve a significant tremor during activity but disappears at rest consistent with essential tremor. We discussed the plan of care which would include an insulin infusion, correction of electrolyte abnormalities and titrating her basal bolus insulin to achieve better glycemic control. We also discussed the possibility of intermediate facility for rehab as she appears to be much weaker than she was during her last hospitalization. We discussed CODE STATUS in detail, the patient wishes to be a limited cold that would include CPR, vasopressors, defibrillation and resynchronization shocks as indicated but not intubation. 12/21 Diabetic ketoacidosis resolved, transitioned off insulin infusion to basal bolus subcutaneous insulin regimen. Awaiting PT and OT recommendations. Transfer to [facility]. 12/22 Elevated LFTs, will follow tomorrow. Recent abdominal ultrasound reviewed. Replacing phosphorus. Otherwise CM working on prior authorization for short term SNF rehab. 12/23 LFTs trending down, no abdominal tenderness. Morning glucose was 77 but the patient was hyperglycemic during the daytime yesterday. Decreased Lantus to 50 units once a day, increased prandial Humalog to 7 units with meals and decreased sliding scale humalog to medium dose. Pending placement. 12/24 The patient feels well, LFTs increased from yesterday but no tenderness in the right upper quadrant. Ordered limited abdominal ultrasound for further evaluation, the patient has a history of cholecystectomy. Need to evaluate further with advanced imaging such as MRCP. Otherwise the patient is doing well, awaiting placement. 12/25 Blood glucose better controlled. Transaminitis mildly improved but still elevated. We will follow up labs outpatient. A/P Narrative: Assessment: 76 year old female with a history of insulin-dependent diabetes mellitus complicated by recurrent hospitalizations for diabetic ketoacidosis, chronic pancreatitis, hypothyroidism, coronary artery disease, hyperlipidemia admitted for diabetic ketoacidosis. Diabetic ketoacidosis resolved. The patient also had a prerenal acute kidney injury with resolved with IV fluids and treating diabetic ketoacidosis. The patient subsequently developed an increase in her liver function tests. #Resolved diabetic ketoacidosis, a1c 12.9 #Elevated LFTs of uncertain cause #Resolved prerenal acute kidney injury #Insulin-dependent diabetes mellitus, poorly controlled #Coronary artery disease, stable #Hypothyroidism #Chronic pancreatitis #Essential tremor Plan -Likely higher doses of insulin at discharge. Discharge diagnosis: DKA transaminitis SUDARSHAN Secondary discharge diagnosis: Diabetes CAD hypothyroidism chronic pancreatitis essential tremor Time Spent with Patient Time attestation: Total time spent providing and/or coordinating discharge services: Time spent: Greater than 30 minutes EXAM Constitutional Vitals: Temp Pulse Resp BP Pulse Ox 97.9 F 80 18 140/68 96 12/24/21 12:00 12/24/21 12:00 12/24/21 12:00 12/24/21 12:00 12/24/21 12:00 Discharge Data Data Completed and Pending Labs on day of discharge: Labs from last 24 hours 12/24/21 06:40 Sodium 139 Potassium 4.0 Chloride 101 Carbon Dioxide 28 Anion Gap 10.0 BUN 6 L Creatinine 0.5 L GFR Calculation 94 Glucose 121 H Uric Acid 3.3 Calcium 8.9 Phosphorus 2.4 L Magnesium 2.0 Total Bilirubin 0.3 Direct Bilirubin < 0.2 GGT 316 H AST 348 H ALT 180 H Alkaline Phosphatase 161 H Lactate Dehydrogenase 302 H Total Protein 6.1 Albumin 3.5 Globulin 2.6 Albumin/Globulin Ratio 1.3 Triglycerides 232 H Preliminary micro results at discharge 12/20/21 11:18 Blood Culture - Preliminary Blood 12/20/21 10:50 Blood Culture - Preliminary Blood Discharge Plan Patient/Caregiver Discharge Instructions Activity: increase activity as tolerated Diet: Consistent Carbohydrate Activity Restrictions/Additional Instructions: Check blood glucose with meals and at bedtime and keep a log and bring to PCP for medication adjustment for diabetes. Prescriptions: Continued Acidophilus Tablet,Chewable 2 tab PO BID 0RF hyoscyamine sulfate 0.125 mg tablet, sublingual 0.125 mg PO Q6H PRN (Reason: Abdominal Discomfort) 0RF multivit mjk-kjtg-ML-herb 186 [Hair, Skin and Nails Advanced] 1 tab PO DAILY 0RF trazodone 100 mg tablet 100 mg PO HSP PRN (Reason: insomnia) 0RF atorvastatin 40 mg tablet 40 mg PO QHS 0RF Label Comments: take 1 tablet by mouth at bedtime Zenpep 40,000-126,000- 168,000 unit capsule,delayed release(DR/EC) 40,000 cap PO TID 0RF Label Comments: take 1 capsule by mouth three times a day duloxetine 30 mg Capsule,Delayed Release(Dr/Ec) 30 mg PO QDAY 0RF acyclovir 400 mg tablet 1 tab PO BID 0RF gabapentin 800 mg tablet 1 tab PO QID 0RF Tresiba U-100 Insulin 100 unit/mL solution 30 unit SUBCUT BID Qty: 1 0RF levothyroxine 125 mcg tablet 1 tab PO QDAY 0RF zinc 50 mg Tablet 50 mg PO DAILY 0RF cholecalciferol (vitamin D3) [Vitamin D3] 50 mcg (2,000 unit) Capsule 50 mcg PO DAILY 0RF Changed Novolin R Regular U-100 Insuln 100 UNIT/ML solution See Protocol unit subcut AC Qty: 10 0RF Protocol: Insulin Sliding Scale, High Condition: HUMALOG/NOVALOG SC SLIDING Dose/Route: SCALE Condition: FSBS < 70 Dose/Route: Give 4 Oz juice, or 15gm oral Instruction: Glucose, or 25ml D50W IV if Dose/Route: unable to take PO. Recheck in Instruction: 15 min and repeat if FSBS < 70 Condition: FSBS 71-140 Dose/Route: NO COVERAGE Condition: FSBS 141-170 Dose/Route: 3 UNITS Condition: FSBS 171-200 Dose/Route: 6 UNITS Condition: FSBS 201-250 Dose/Route: 9 UNITS Condition: FSBS 251-300 Dose/Route: 12 UNITS Condition: FSBS 301-350 Dose/Route: 15 UNITS Condition: FSBS 351-400 Dose/Route: 18 UNITS Condition: FSBS > 400 Dose/Route: 20 UNITS; REPEAT Q2H X2 Instruction: CONTINUE FOLLOWING SLIDING Condition: SCALE; IF STILL > 400; CALL Dose/Route: PHYSICIAN Rx Instructions: 70-139 none subcut before meals and at bedtime; Other Ambulatory Orders: Comprehensive Metabolic Panel (Routine) Timeframe: 3 Days Facility: [facility] - Location: Laboratory Ordered By: Jef Borges Follow Up Plan Follow up with: Faye Porras DO [Primary Care Provider] - Patient Disposition: Xfer Assisted Living Facility Prognosis: Fair Overall status at discharge: patient is progressing back to baseline Discharge Orders: Discharge Order (Routine); Ordered 12/25/21 Ordered By: Jef Borges QUALITY VTE Deep Vein Thrombosis/Pulmonary Embolism Present on Admission: No
[2021-12-24] MEDS: MELATONIN 3 MG TABLET PO PRN (20:26)
[2021-12-25] MEDS: 0.9 % SODIUM CHLORIDE 10 ML SYRINGE IV SCH ×3 (05:22→20:25)
[2021-12-25 07:37] LABS: ALT/SGPT 161 U/L (<40); AST/SGOT 256 U/L (<32); Albumin 3.6 gm/dL (3.2-5.2); Albumin/Globulin Ratio 1.4 (1.0-2.3); Alkaline Phosphatase 168 U/L (39-117); Bilirubin,Direct < 0.2 mg/dL (0-0.3); Bilirubin,Total 0.4 mg/dL (0.1-1.0); Blood Urea Nitrogen 10 mg/dL (8-23); Calcium 9.3 mg/dL (8.6-10.4); Carbon Dioxide 26 mmol/L (22-30); Chloride 105 mmol/L (96-108); Globulin 2.6 gm/dL (2.2-3.7); Glomerular Filtration Rate 88; Glucose 74 mg/dL (70-105); Lactate Dehydrogenase 278 U/L (135-225); Phosphorous 3.4 mg/dL (2.5-4.5); Triglycerides 165 mg/dL (<150); Uric Acid 3.7 mg/dL (2.5-8.0)
[2021-12-25] MEDS: INSULIN LISPRO 1 UNIT/0.01 ML UNIT SQ SCH ×7 (07:45→20:38)
[2021-12-25] MEDS: LIPASE PO SCH ×3 (08:06→16:56)
[2021-12-25] MEDS: PROTEASE PO SCH ×3 (08:06→16:56)
[2021-12-25] MEDS: AMYLASE PO SCH ×3 (08:06→16:56)
[2021-12-25] MEDS: HEPARIN 5,000 UNIT/ML VIAL SQ SCH ×2 (08:07→20:22)
[2021-12-25] MEDS: INSULIN GLARGINE, HUMAN 1 UNIT/0.01 ML SQ SCH (08:07)
[2021-12-25] MEDS: GABAPENTIN 400 MG CAPSULE PO SCH ×4 (08:08→20:17)
[2021-12-25] MEDS: MULTIVIT,THER IRON,CA,FA & MIN 1 TABLET PO SCH (08:09)
[2021-12-25] MEDS: LEVOTHYROXINE 125 MCG TABLET PO SCH (08:09)
[2021-12-25] MEDS: DULoxetine 30 MG CAPSULE PO SCH (08:09)
[2021-12-25] MEDS: ACYCLOVIR 400 MG TABLET PO SCH ×2 (08:09→20:17)
[2021-12-25] MEDS: POLYETHYLENE GLYCOL 3350 17 GM PACKET PO SCH (08:11)
[2021-12-25] MEDS: HYOSCYAMINE SULFATE 0.125 MG TABLET PO PRN ×3 (08:22→20:17)
[2021-12-25] MEDS: DOCUSATE SODIUM 100 MG CAPSULE PO SCH ×2 (08:22→20:21)
[2021-12-25] MEDS: ACETAMINOPHEN 325 MG TABLET PO PRN (11:24)
[2021-12-25] MEDS: MELATONIN 3 MG TABLET PO PRN (22:20)
[2021-12-26] MEDS: HYOSCYAMINE SULFATE 0.125 MG TABLET PO PRN ×3 (03:26→19:31)
[2021-12-26] MEDS: ACETAMINOPHEN 325 MG TABLET PO PRN ×2 (07:33→21:34)
[2021-12-26] MEDS: INSULIN LISPRO 1 UNIT/0.01 ML UNIT SQ SCH ×7 (07:35→21:35)
[2021-12-26] MEDS: ACYCLOVIR 400 MG TABLET PO SCH ×2 (08:11→21:20)
[2021-12-26] MEDS: LEVOTHYROXINE 125 MCG TABLET PO SCH (08:12)
[2021-12-26] MEDS: DULoxetine 30 MG CAPSULE PO SCH (08:12)
[2021-12-26] MEDS: GABAPENTIN 400 MG CAPSULE PO SCH ×4 (08:12→21:20)
[2021-12-26] MEDS: MULTIVIT,THER IRON,CA,FA & MIN 1 TABLET PO SCH (08:12)
[2021-12-26] MEDS: INSULIN GLARGINE, HUMAN 1 UNIT/0.01 ML SQ SCH (08:13)
[2021-12-26] MEDS: AMYLASE PO SCH ×3 (08:14→17:30)
[2021-12-26] MEDS: LIPASE PO SCH ×3 (08:14→17:30)
[2021-12-26] MEDS: PROTEASE PO SCH ×3 (08:14→17:30)
[2021-12-26] MEDS: DOCUSATE SODIUM 100 MG CAPSULE PO SCH ×2 (08:14→21:20)
[2021-12-26] MEDS: HEPARIN 5,000 UNIT/ML VIAL SQ SCH ×2 (08:17→21:20)
[2021-12-26] MEDS: POLYETHYLENE GLYCOL 3350 17 GM PACKET PO SCH (09:15)
[2021-12-26] MEDS: BUTALB/ACETAMINOPHEN/CAFFEINE 1 TABLET PO PRN (14:27)
[2021-12-26] MEDS: 0.9 % SODIUM CHLORIDE 10 ML SYRINGE IV SCH ×3 (14:29→21:36)
--- NOTE | 2021-12-26 16:28 | Internal Med Progress Note ---
SUBJECTIVE Subjective Patient information: Note initiated : 12/26/21 at 4:25 pm Service Date, if different from initiated Date: [] Patient: Tennille Castillo a 76 y/o F admitted on 12/20/21 for High blood sugar. Chief Complaint: [] Interval history: Interval history: Ms. Castillo is a 76 year old female with a history of insulin-dependent diabetes mellitus complicated by recurrent hospitalizations for diabetic ketoacidosis, chronic pancreatitis, hypothyroidism, coronary artery disease, hyperlipidemia who presented to the ED emergency department at the request of her primary care provider for hyperglycemia. In the emergency department, the patient was found to have a serum glucose of over 700 and a metabolic acidosis as well as an acute kidney injury. A CT abdomen pelvis was done and did not show any acute changes. These findings are consistent with diabetic ketoacidosis, hospital medicine was consulted for admission. The patient was discharged from [facility] on 12/11/2021 after being treated for diabetic ketoacidosis. It appears that the patient was initially recommended go to a correction facility for rehab however the patient eventually went home. The patient says that this was because her insurance had refused payment for a correction facility. It seems like the patient's blood sugar was well controlled during the hospital stay however when the patient returned home she says that the lowest blood sugar she noted was 190. In addition, the patient felt generally weak and lethargic. She was seen by her primary care provider who ordered labs and noted that her blood sugar was extremely elevated and referred her to the emergency department. There is no evidence of infectious causes of diabetic ketoacidosis, no evidence of acute coronary syndrome. Patient says that she was taking her Tresiba and sliding scale insulin as prescribed, she does not feel like she was eating excessive carbohydrates. The patient lives alone and recently has been struggling more with activities of daily living. In particular, she says that she has been having difficulty because of a tremor. On exam the patient does have a significant tremor during activity but disappears at rest consistent with essential tremor. We discussed the plan of care which would include an insulin infusion, correction of electrolyte abnormalities and titrating her basal bolus insulin to achieve better glycemic control. We also discussed the possibility of correction facility for rehab as she appears to be much weaker than she was during her last hospitalization. We discussed CODE STATUS in detail, the patient wishes to be a limited cold that would include CPR, vasopressors, defibrillation and resynchronization shocks as indicated but not intubation. 12/21 Diabetic ketoacidosis resolved, transitioned off insulin infusion to basal bolus subcutaneous insulin regimen. Awaiting PT and OT recommendations. Transfer to [facility]. 12/22 Elevated LFTs, will follow tomorrow. Recent abdominal ultrasound reviewed. Repla cing phosphorus. Otherwise CM working on prior authorization for short term SNF rehab. 12/23 LFTs trending down, no abdominal tenderness. Morning glucose was 77 but the patient was hyperglycemic during the daytime yesterday. Decreased Lantus to 50 units once a day, increased prandial Humalog to 7 units with meals and decreased sliding scale humalog to medium dose. Pending placement. 12/24 The patient feels well, LFTs increased from yesterday but no tenderness in the right upper quadrant. Ordered limited abdominal ultrasound for further evaluation, the patient has a history of cholecystectomy. Need to evaluate further with advanced imaging such as MRCP. Otherwise the patient is doing well, awaiting placement. 12/25 Blood glucose better controlled. Transaminitis mildly improved but still elevated. We will follow up labs outpatient. 12/26 Pt sas not discharged yesterday because of Insurance authorization for nursing facility. Patient had poor sleep last night but slept well during the day. No new complaints. Review of Systems: denies headache/fever/chills/nausea/vomiting/chest or abdominal pain/cough/dyspnea/diarrhea. Otherwise see above. Constitutional Vitals: Vital Signs Temp Pulse Resp BP Pulse Ox 98.1 F 71 20 136/71 98 12/26/21 12:00 12/26/21 12:00 12/26/21 12:00 12/26/21 12:00 12/26/21 12:00 Period Temp Pulse Resp BP Sys/Rosario Pulse Ox Last 24 Hr 96.7 F-98.1 F 71-90 12-20 136-189/71-95 94-99 Intake and Output 12/26/21 12/26/21 12/26/21 05:59 13:59 21:59 Intake Total 240 400 Output Total 1000 1350 Balance -760 -950 Weight 74.344 kg Patient Weight 12/27/21 05:59 Weight 74.344 kg Intake & Output: Intake & Output 12/26/21 12/26/21 12/26/21 05:59 13:59 21:59 Intake Total 240 400 Output Total 1000 1350 Balance -760 -950 Weight 74.344 kg Intake: Oral 240 400 Output: Void Amount 1000 1350 Other: Urine Appearance Clear Urine Color Bright Yellow Bright Yellow Urine Odor Normal Exam: General: Alert, Awake, No acute Distress Eyes/N/T: EOMI, Head/Neck: neck supple, CV: RRR, No murmurs, Pulm: Clear b/l, no wheezing/rhonchi/rales Abd: soft, nontender, +BS x4 Ext: no clubbing/cyanosis/edema Neuro: Alert, no focal deficits, moves all extremities, Skin: warm/dry OBJ DATA Labs CBC & Chem 7: 12/20/21 11:18 12/25/21 05:49 Labs: Abnormal Lab Results 12/25/21 12/24/21 05:49 06:40 BUN 6 L Creatinine 0.5 L Glucose 121 H Phosphorus 2.4 L GGT 296 H 316 H AST 256 H 348 H ALT 161 H 180 H Alkaline Phosphatase 168 H 161 H Lactate Dehydrogenase 278 H 302 H Triglycerides 165 H 232 H Meds: Medications Acetaminophen (Acetaminophen 325 Mg Tablet) 650 mg PO Q6HP PRN; Protocol PRN Reason: Per Pain Protocol/Fever > 101 Last Admin: 12/26/21 07:33 Dose: 650 mg Documented by: Acetaminophen/Butalbital/Caffeine (Butalb/Acetaminophen/Caffeine 1 Tablet) 1 tab PO Q6HP PRN PRN Reason: Headache Last Admin: 12/26/21 14:27 Dose: 1 tab Documented by: Acyclovir (Acyclovir 400 Mg Tablet) 400 mg PO BID [facility]; Protocol Last Admin: 12/26/21 08:11 Dose: 400 mg Documented by: Dextrose (Dextrose 50% 50 Ml Vial) 0 ml IV UD PRN PRN Reason: Per Sliding Scale Diagnostic Test (Pha) (Accu-Chek 1 Each Strip) 1 each FS ACHS [facility] Last Admin: 12/26/21 11:29 Dose: 1 each Documented by: Docusate Sodium (Docusate Sodium 100 Mg Capsule) 100 mg PO BID [facility] Last Admin: 12/26/21 08:14 Dose: Not Given Documented by: Duloxetine HCl (Duloxetine 30 Mg Capsule) 30 mg PO QDAY [facility] Last Admin: 12/26/21 08:12 Dose: 30 mg Documented by: Gabapentin (Gabapentin 400 Mg Capsule) 800 mg PO QID [facility] Last Admin: 12/26/21 14:27 Dose: 800 mg Documented by: Glucose (Dextrose 31 Gm Oral.Susp) 15 gm PO PRN PRN PRN Reason: Hypoglycemia Heparin Sodium (Porcine) (Heparin 5,000 Unit/Ml Vial) 5,000 unit SQ Q12 [facility] Last Admin: 12/26/21 08:17 Dose: 5,000 unit Documented by: Hyoscyamine (Hyoscyamine Sulfate 0.125 Mg Tablet) 0.125 mg PO Q6HP PRN PRN Reason: Abdominal Discomfort Last Admin: 12/26/21 09:52 Dose: 0.125 mg Documented by: Insulin Glargine (Insulin Glargine, Human 1 Unit/0.01 Ml) 50 unit SQ DAILY [facility] Last Admin: 12/26/21 08:13 Dose: 50 unit Documented by: Insulin Human Lispro (Insulin Lispro 1 Unit/0.01 Ml Unit) 0 unit SQ [facility]; Protocol Last Admin: 12/26/21 11:44 Dose: 2 units Documented by: Insulin Human Lispro (Insulin Lispro 1 Unit/0.01 Ml Unit) 7 unit SQ AC [facility] Last Admin: 12/26/21 11:44 Dose: 7 units Documented by: Iron Carb/Multivit/[employer]/Folic Acid (Multivit,Ther Iron,Ca,Fa & Min 1 Tablet) 1 tab PO DAILY [facility] Last Admin: 12/26/21 08:12 Dose: 1 tab Documented by: Lactulose (Lactulose 20 Gm/30 Ml Oral.Alley) 10 gm PO DAILYP PRN PRN Reason: Constipation Last Admin: 12/23/21 07:28 Dose: 10 gm Documented by: Levothyroxine Sodium (Levothyroxine 125 Mcg Tablet) 125 mcg PO QDAY [facility] Last Admin: 12/26/21 08:12 Dose: 125 mcg Documented by: Melatonin (Melatonin 3 Mg Tablet) 3 mg PO HSP PRN PRN Reason: Insomnia Last Admin: 12/25/21 22:20 Dose: 3 mg Documented by: Ondansetron HCl (Ondansetron 4 Mg/2 Ml Vial) 4 mg IV Q4HP PRN; Protocol PRN Reason: Nausea And Vomiting Lipase 40,000 Jail Units, Protease 126, 000 Jail Units, And Amylase 168,000 Jail 1 dose PO TIDCC [facility] Last Admin: 12/26/21 11:45 Dose: 1 dose Documented by: Polyethylene Glycol (Polyethylene Glycol 3350 17 Gm Packet) 17 gm PO DAILY [facility] Last Admin: 12/26/21 09:15 Dose: Not Given Documented by: Senna (Sennosides 1 Tablet) 2 tab PO HSP PRN PRN Reason: Constipation Last Admin: 12/23/21 11:42 Dose: 2 tab Documented by: Sodium Chloride (0.9 % Sodium Chloride 10 Ml Syringe) 10 ml IV Q8 [facility] Last Admin: 12/26/21 14:31 Dose: 10 ml Documented by: ABG Interpretation ABG results: 12/20/21 12/20/21 12/20/21 15:23 19:34 23:21 ABG Methemoglobin 0.1 L 0.3 L 0.2 L VBG pH 7.26 L 7.36 7.40 VBG pCO2 29.9 L 36.8 L 35.8 L VBG pO2 80.3 H 71.2 H 115.4 H VBG HCO3 13.1 L 20.4 L 21.5 L VBG Total CO2 14.1 L 21.5 L 22.6 L VBG O2 Saturation 91.6 H 90.3 H 93.2 H VBG Base Excess -13 L -5 L -3 L 12/21/21 12/21/21 03:35 08:02 ABG Methemoglobin 0.3 L 0.2 L VBG pH 7.37 7.36 VBG pCO2 36.5 L 36.3 L VBG pO2 95.3 H 104.4 H VBG HCO3 20.4 L 20.1 L VBG Total CO2 21.6 L 21.2 L VBG O2 Saturation 93.6 H 92.5 H VBG Base Excess -4 L -5 L A/P Narrative A/P Narrative: A: #Resolved diabetic ketoacidosis, a1c 12.9 #Elevated LFTs of uncertain cause #Resolved prerenal acute kidney injury #Insulin-dependent diabetes mellitus, poorly controlled #Coronary artery disease, stable #Hypothyroidism #Chronic pancreatitis #Essential tremor Plan -Lantus and SSI -Prandial Humalog 7 units with meals. -Adjust basal/bolus insulin doses as needed, hemoglobin A1c was 12.9. -Hold atorvastatin for now for elevated LFTs. -Continue home duloxetine, gabapentin, levothyroxine. -Consistent carbohydrate diet. -PT and OT. -DVT prophylaxis: Heparin SQ -CODE STATUS: Limited Time Spent With Patient Time: Total time spent is greater than 50% in coordination of care (as documented) at patient's floor/unit and/or counseling patient: QUALITY VTE Deep Vein Thrombosis/Pulmonary Embolism Present on Admission: No
--- NOTE | 2021-12-26 16:29 | Discharge Summary ---
Discharge Provider Provider Patient information: Note initiated : 12/26/21 at 7:22 am Service Date, if different from initiated Date: [] Patient: Tennille Castillo 76 y/o F admitted on 12/20/21 for High blood sugar. Chief Complaint: [] Date of admission: 12/20/21 14:55 Discharge date: 12/29/21 Primary care physician: Faye Porras DO Consults: 12/20/21 Consult to Physician [CONS] Stat Comment: Consulting Provider: Tom Montenegro Reason For Exam: Physician to Consult 12/21/21 08:06 Consult to Physician [CONS] Routine Comment: snf referral Consulting Provider: [facility] Reason For Exam: Physician to Consult Discharge Meds Discharge Medications Home Medications [id number] 40,000-126,000-168,000 unit capsule, delay rel (Zenpep) 40,000 cap PO TID 06/01/21 [History Confirmed 12/20/21 Last Taken 12/02/21] Lactobacillus acidophilus (Acidophilus) 2 tab PO BID tab 07/15/21 [History Confirmed 12/20/21 Last Taken 12/02/21] hyoscyamine sulfate 0.125 mg sublingual tablet 0.125 mg PO Q6H PRN tab 07/15/21 [History Confirmed 12/20/21 Last Taken 12/02/21] multivit [id number] 186 [Hair, Skin and Nails Advanced] 1 tab PO DAILY 07/15/21 [History Confirmed 12/20/21 Last Taken 12/02/21] trazodone 100 mg tablet 100 mg PO HSP PRN 08/22/21 [History Confirmed 12/20/21 Last Taken 12/01/21] duloxetine 30 mg capsule,delayed release 30 mg PO QDAY 09/20/21 [History Confirmed 12/20/21 Last Taken 12/02/21] acyclovir 400 mg tablet 1 tab PO BID 09/21/21 [History Confirmed 12/20/21 Last Taken 12/02/21] gabapentin 800 mg tablet 1 tab PO QID 09/21/21 [History Confirmed 12/20/21 Last Taken 12/02/21] insulin degludec 100 unit/mL subcutaneous solution (Tresiba U-100 Insulin) 30 unit (0.3 mL) SUBCUT BID #1 ml 09/22/21 [Rx Confirmed 12/20/21 Last Taken 12/01/21] cholecalciferol (vitamin D3) 50 mcg (2,000 unit) capsule (Vitamin D3) 50 mcg PO DAILY 12/04/21 [History Confirmed 12/20/21 Last Taken Unknown] levothyroxine 125 mcg tablet 1 tab PO QDAY 12/04/21 [History Confirmed 12/20/21 Last Taken Unknown] zinc 50 mg tablet 50 mg PO DAILY 12/04/21 [History Confirmed 12/20/21 Last Taken Unknown] insulin regular human 100 unit/mL injection solution (Novolin R Regular U-100 Insulin) See Protocol SUBCUT AC #10 ml 12/25/21 [Rx Last Taken Unknown] COURSE Hospital Course Hospital course: Interval history: Ms. Castillo is a 76 year old female with a history of insulin-dependent diabetes mellitus complicated by recurrent hospitalizations for diabetic ketoacidosis, chronic pancreatitis, hypothyroidism, coronary artery disease, hyperlipidemia who presented to the ED emergency department at the request of her primary care provider for hyperglycemia. In the emergency department, the patient was found to have a serum glucose of over 700 and a metabolic acidosis as well as an acute kidney injury. A CT abdomen pelvis was done and did not show any acute changes. These findings are consistent with diabetic ketoacidosis, hospital medicine was consulted for admission. The patient was discharged from [facility] on 12/11/2021 after being treated for diabetic ketoacidosis. It appears that the patient was initially recommended go to a intermediate facility for rehab however the patient eventually went home. The patient says that this was because her insurance had refused payment for a intermediate facility. It seems like the patient's blood sugar was well controlled during the hospital stay however when the patient returned home she says that the lowest blood sugar she noted was 190. In addition, the patient felt generally weak and lethargic. She was seen by her primary care provider who ordered labs and noted that her blood sugar was extremely elevated and referred her to the emergency department. There is no evidence of infectious causes of diabetic ketoacidosis, no evidence of acute coronary syndrome. Patient says that she was taking her Tresiba and sliding scale insulin as prescribed, she does not feel like she was eating excessive carbohydrates. The patient lives alone and recently has been struggling more with activities of daily living. In particular, she says that she has been having difficulty because of a tremor. On exam the patient does have a significant tremor during activity but disappears at rest consistent with essential tremor. We discussed the plan of care which would include an insulin infusion, correction of electrolyte abnormalities and titrating her basal bolus insulin to achieve better glycemic control. We also discussed the possibility of intermediate facility for rehab as she appears to be much weaker than she was during her last hospitalization. We discussed CODE STATUS in detail, the patient wishes to be a limited cold that would include CPR, vasopressors, defibrillation and resynchronization shocks as indicated but not intubation. 12/21 Diabetic ketoacidosis resolved, transitioned off insulin infusion to basal bolus subcutaneous insulin regimen. Awaiting PT and OT recommendations. Transfer to [facility]. 12/22 Elevated LFTs, will follow tomorrow. Recent abdominal ultrasound reviewed. Replacing phosphorus. Otherwise CM working on prior authorization for short term SNF rehab. 12/23 LFTs trending down, no abdominal tenderness. Morning glucose was 77 but the patient was hyperglycemic during the daytime yesterday. Decreased Lantus to 50 units once a day, increased prandial Humalog to 7 units with meals and decreased sliding scale humalog to medium dose. Pending placement. 12/24 The patient feels well, LFTs increased from yesterday but no tenderness in the right upper quadrant. Ordered limited abdominal ultrasound for further evaluation, the patient has a history of cholecystectomy. Need to evaluate further with advanced imaging such as MRCP. Otherwise the patient is doing well, awaiting placement. 12/25 Blood glucose better controlled. Transaminitis mildly improved but still elevated. We will follow up labs outpatient. 12/26 Pt sas not discharged yesterday because of Insurance authorization for nursing facility. Patient had poor sleep last night but slept well during the day. No new complaints. 12/27 No overnight event or new complaints. Awaiting discharge. 12/28 Patient feels a little constipated and was hoping to get some laxatives. Although looking at the notes she was on MiraLAX daily but refused several days ago because she had a loose stool. No nausea or vomiting. 12/29 No overnight event or new complaints. Awaiting placement. A: #Resolved diabetic ketoacidosis, a1c 12.9 #Elevated LFTs of uncertain cause #Resolved prerenal acute kidney injury #Insulin-dependent diabetes mellitus, poorly controlled #Coronary artery disease, stable #Hypothyroidism #Chronic pancreatitis #Essential tremor Plan -Lantus and SSI -Hold atorvastatin for now for elevated LFTs. Discharge diagnosis: DKA transaminitis acute kidney injury Secondary discharge diagnosis: Diabetes CAD hypothyroidism chronic pancreatitis essential tremor Time Spent with Patient Time attestation: Total time spent providing and/or coordinating discharge services: Time spent: Greater than 30 minutes EXAM Constitutional Vitals: Temp Pulse Resp BP Pulse Ox 97.2 F 82 14 147/79 96 12/26/21 03:22 12/26/21 03:22 12/26/21 03:22 12/26/21 03:22 12/26/21 03:22 Discharge Data Data Completed and Pending Labs on day of discharge: Labs from last 24 hours 12/25/21 05:49 Sodium 143 Potassium 3.6 Chloride 105 Carbon Dioxide 26 Anion Gap 12.0 BUN 10 Creatinine 0.6 GFR Calculation 88 Glucose 74 Uric Acid 3.7 Calcium 9.3 Phosphorus 3.4 Magnesium 2.1 Total Bilirubin 0.4 Direct Bilirubin < 0.2 GGT 296 H AST 256 H ALT 161 H Alkaline Phosphatase 168 H Lactate Dehydrogenase 278 H Total Protein 6.2 Albumin 3.6 Globulin 2.6 Albumin/Globulin Ratio 1.4 Triglycerides 165 H Discharge Plan Patient/Caregiver Discharge Instructions Activity: increase activity as tolerated Diet: Consistent Carbohydrate Instructions: Acute Kidney Injury (DC), Diabetic Ketoacidosis (DC), Meal Planning with Diabetes Exchanges (DC) Activity Restrictions/Additional Instructions: Resume home diet as tolerated. Take all meals up in chair, sitting at 90 degrees, to prevent aspiration. Increase activity as tolerated. PT and OT at SNF. Continue fall precautions. Hospitalist recommends a CMP be drawn in 3 days. Take all medication as directed. Your prescription is with your discharge paperwork. The Hospitalist changed your insulin sliding scale. Bring a blood glucose log to PCP for medication adjustment for diabetes. Return to ER for fever, chills, uncontrolled pain, inability to urinate or have a bowel movement, nausea and/or vomiting, swelling, redness, signs of infection, shortness of breath, chest pain, return of symptoms, or other acute symptom. This discharge packet is provided to you to help keep you informed about your care. We want to ensure you get everything you need when you go home. You will also be receiving a call from us in a few days to follow up with you and see how you are doing since your discharge. This gives us a chance to listen to any concerns you maybe experiencing since you were discharged or any additional needs you may have, as well as providing us feedback on your care experience. We strive to always provide excellent care and thank you for your feedback and for choosing [facility]. Prescriptions: Continued Acidophilus Tablet,Chewable 2 tab PO BID 0RF hyoscyamine sulfate 0.125 mg tablet, sublingual 0.125 mg PO Q6H PRN (Reason: Abdominal Discomfort) 0RF multivit [id number] 186 [Hair, Skin and Nails Advanced] 1 tab PO DAILY 0RF trazodone 100 mg tablet 100 mg PO HSP PRN (Reason: insomnia) 0RF Zenpep 40,000-126,000- 168,000 unit capsule,delayed release(DR/EC) 40,000 cap PO TID 0RF Label Comments: take 1 capsule by mouth three times a day duloxetine 30 mg Capsule,Delayed Release(Dr/Ec) 30 mg PO QDAY 0RF acyclovir 400 mg tablet 1 tab PO BID 0RF gabapentin 800 mg tablet 1 tab PO QID 0RF Tresiba U-100 Insulin 100 unit/mL solution 30 unit SUBCUT BID Qty: 1 0RF levothyroxine 125 mcg tablet 1 tab PO QDAY 0RF zinc 50 mg Tablet 50 mg PO DAILY 0RF cholecalciferol (vitamin D3) [Vitamin D3] 50 mcg (2,000 unit) Capsule 50 mcg PO DAILY 0RF Changed Novolin R Regular U-100 Insuln 100 UNIT/ML solution See Protocol unit subcut AC Qty: 10 0RF Protocol: Insulin Sliding Scale, High Condition: HUMALOG/NOVALOG SC SLIDING Dose/Route: SCALE Condition: FSBS < 70 Dose/Route: Give 4 Oz juice, or 15gm oral Instruction: Glucose, or 25ml D50W IV if Dose/Route: unable to take PO. Recheck in Instruction: 15 min and repeat if FSBS < 70 Condition: FSBS 71-140 Dose/Route: NO COVERAGE Condition: FSBS 141-170 Dose/Route: 3 UNITS Condition: FSBS 171-200 Dose/Route: 6 UNITS Condition: FSBS 201-250 Dose/Route: 9 UNITS Condition: FSBS 251-300 Dose/Route: 12 UNITS Condition: FSBS 301-350 Dose/Route: 15 UNITS Condition: FSBS 351-400 Dose/Route: 18 UNITS Condition: FSBS > 400 Dose/Route: 20 UNITS; REPEAT Q2H X2 Instruction: CONTINUE FOLLOWING SLIDING Condition: SCALE; IF STILL > 400; CALL Dose/Route: PHYSICIAN Rx Instructions: 70-139 none subcut before meals and at bedtime; Discontinued atorvastatin 40 mg tablet 40 mg PO QHS 0RF Label Comments: take 1 tablet by mouth at bedtime Other Ambulatory Orders: Comprehensive Metabolic Panel (Routine) Timeframe: 3 Days Facility: [facility] - Location: Laboratory Ordered By: Jef Borges OT Discharge Order (Routine) Location: None Selected Ordered By: Jef Borges Physical Therapy at Discharge - General (Routine) Location: None Selected Ordered By: Jef Borges Follow Up Plan Follow up with: Faye Porras DO [Primary Care Provider] - (IF you have not heard from the office in 4 busines days, please contact office to schedule a hospital follow up appointment.) Patient Disposition: Home Health Service Prognosis: Fair Overall status at discharge: patient is progressing back to baseline Discharge Orders: Discharge Order (Routine); Ordered 12/29/21 Ordered By: Jef Borges QUALITY VTE Deep Vein Thrombosis/Pulmonary Embolism Present on Admission: No
[2021-12-26] MEDS: MELATONIN 3 MG TABLET PO PRN (21:35)
[2021-12-27] MEDS: ACETAMINOPHEN 325 MG TABLET PO PRN ×2 (07:02→13:15)
[2021-12-27] MEDS: INSULIN LISPRO 1 UNIT/0.01 ML UNIT SQ SCH ×8 (07:40→21:30)
[2021-12-27] MEDS: MULTIVIT,THER IRON,CA,FA & MIN 1 TABLET PO SCH (08:17)
[2021-12-27] MEDS: GABAPENTIN 400 MG CAPSULE PO SCH ×4 (08:17→21:28)
[2021-12-27] MEDS: ACYCLOVIR 400 MG TABLET PO SCH ×2 (08:17→21:28)
[2021-12-27] MEDS: DOCUSATE SODIUM 100 MG CAPSULE PO SCH ×2 (08:17→21:28)
[2021-12-27] MEDS: DULoxetine 30 MG CAPSULE PO SCH (08:17)
[2021-12-27] MEDS: HEPARIN 5,000 UNIT/ML VIAL SQ SCH ×2 (08:18→21:28)
[2021-12-27] MEDS: INSULIN GLARGINE, HUMAN 1 UNIT/0.01 ML SQ SCH (08:18)
[2021-12-27] MEDS: AMYLASE PO SCH ×3 (08:20→16:42)
[2021-12-27] MEDS: LIPASE PO SCH ×3 (08:20→16:42)
[2021-12-27] MEDS: POLYETHYLENE GLYCOL 3350 17 GM PACKET PO SCH (08:20)
[2021-12-27] MEDS: PROTEASE PO SCH ×3 (08:20→16:42)
--- NOTE | 2021-12-27 10:02 | Internal Med Progress Note ---
SUBJECTIVE Subjective Patient information: Note initiated : 12/27/21 at 10:01 am Service Date, if different from initiated Date: [] Patient: Tennille Castillo a 76 y/o F admitted on 12/20/21 for High blood sugar. Chief Complaint: [] Interval history: Interval history: Ms. Castillo is a 76 year old female with a history of insulin-dependent diabetes mellitus complicated by recurrent hospitalizations for diabetic ketoacidosis, chronic pancreatitis, hypothyroidism, coronary artery disease, hyperlipidemia who presented to the ED emergency department at the request of her primary care provider for hyperglycemia. In the emergency department, the patient was found to have a serum glucose of over 700 and a metabolic acidosis as well as an acute kidney injury. A CT abdomen pelvis was done and did not show any acute changes. These findings are consistent with diabetic ketoacidosis, hospital medicine was consulted for admission. The patient was discharged from [facility] on 12/11/2021 after being treated for diabetic ketoacidosis. It appears that the patient was initially recommended go to a [facility] facility for rehab however the patient eventually went home. The patient says that this was because her insurance had refused payment for a [facility] facility. It seems like the patient's blood sugar was well controlled during the hospital stay however when the patient returned home she says that the lowest blood sugar she noted was 190. In addition, the patient felt generally weak and lethargic. She was seen by her primary care provider who ordered labs and noted that her blood sugar was extremely elevated and referred her to the emergency department. There is no evidence of infectious causes of diabetic ketoacidosis, no evidence of acute coronary syndrome. Patient says that she was taking her Tresiba and sliding scale insulin as prescribed, she does not feel like she was eating excessive carbohydrates. The patient lives alone and recently has been struggling more with activities of daily living. In particular, she says that she has been having difficulty because of a tremor. On exam the patient does have a significant tremor during activity but disappears at rest consistent with essential tremor. We discussed the plan of care which would include an insulin infusion, correction of electrolyte abnormalities and titrating her basal bolus insulin to achieve better glycemic control. We also discussed the possibility of [facility] facility for rehab as she appears to be much weaker than she was during her last hospitalization. We discussed CODE STATUS in detail, the patient wishes to be a limited cold that would include CPR, vasopressors, defibrillation and resynchronization shocks as indicated but not intubation. 12/21 Diabetic ketoacidosis resolved, transitioned off insulin infusion to basal bolus subcutaneous insulin regimen. Awaiting PT and OT recommendations. Transfer to [facility]. 12/22 Elevated LFTs, will follow tomorrow. Recent abdominal ultrasound reviewed. Repl acing phosphorus. Otherwise CM working on prior authorization for short term SNF rehab. 12/23 LFTs trending down, no abdominal tenderness. Morning glucose was 77 but the patient was hyperglycemic during the daytime yesterday. Decreased Lantus to 50 units once a day, increased prandial Humalog to 7 units with meals and decreased sliding scale humalog to medium dose. Pending placement. 12/24 The patient feels well, LFTs increased from yesterday but no tenderness in the right upper quadrant. Ordered limited abdominal ultrasound for further evaluation, the patient has a history of cholecystectomy. Need to evaluate further with advanced imaging such as MRCP. Otherwise the patient is doing well, awaiting placement. 12/25 Blood glucose better controlled. Transaminitis mildly improved but still elevated. We will follow up labs outpatient. 12/26 Pt not discharged yesterday because of Insurance authorization for nursing facility. Patient had poor sleep last night but slept well during the day. No new complaints. 12/27 No overnight event or new complaints. Awaiting discharge. Review of Systems: denies headache/fever/chills/nausea/vomiting/chest or abdominal pain/cough/dyspnea/diarrhea. Otherwise see above. Constitutional Vitals: Vital Signs Temp Pulse Resp BP Pulse Ox 97.1 F 73 20 118/63 96 12/27/21 07:41 12/27/21 07:41 12/27/21 07:41 12/27/21 07:41 12/27/21 07:41 Period Temp Pulse Resp BP Sys/Rosario Pulse Ox Last 24 Hr 96.5 F-98.4 F 71-81 12-20 118-144/63-74 94-98 Intake and Output 12/26/21 12/27/21 12/27/21 21:59 05:59 13:59 Intake Total 450 200 480 Output Total 1000 Balance 450 -800 480 Weight 74.797 kg Intake & Output: Intake & Output 12/26/21 12/27/21 12/27/21 21:59 05:59 13:59 Intake Total 450 200 480 Output Total 1000 Balance 450 -800 480 Weight 74.797 kg Intake: Oral 450 200 480 Output: Void Amount 1000 Other: Meal Breakfast Percent of Meal Consumed 100% Feeding Ability Independent Urine Appearance Clear Urine Color Bright Yellow Exam: General: Alert, Awake, No acute Distress Eyes/N/T: EOMI, Head/Neck: neck supple, CV: RRR, No murmurs, Pulm: Clear b/l, no wheezing/rhonchi/rales Abd: soft, nontender, +BS x4 Ext: no clubbing/cyanosis/edema Neuro: Alert, no focal deficits, moves all extremities, Skin: warm/dry OBJ DATA Labs CBC & Chem 7: 12/20/21 11:18 12/25/21 05:49 Labs: Abnormal Lab Results 12/25/21 05:49 GGT 296 H AST 256 H ALT 161 H Alkaline Phosphatase 168 H Lactate Dehydrogenase 278 H Triglycerides 165 H Meds: Medications Acetaminophen (Acetaminophen 325 Mg Tablet) 650 mg PO Q6HP PRN; Protocol PRN Reason: Per Pain Protocol/Fever > 101 Last Admin: 12/27/21 07:02 Dose: 650 mg Documented by: Acetaminophen/Butalbital/Caffeine (Butalb/Acetaminophen/Caffeine 1 Tablet) 1 tab PO Q6HP PRN PRN Reason: Headache Last Admin: 12/26/21 14:27 Dose: 1 tab Documented by: Acyclovir (Acyclovir 400 Mg Tablet) 400 mg PO BID [facility]; Protocol Last Admin: 12/27/21 08:17 Dose: 400 mg Documented by: Dextrose (Dextrose 50% 50 Ml Vial) 0 ml IV UD PRN PRN Reason: Per Sliding Scale Diagnostic Test (Pha) (Accu-Chek 1 Each Strip) 1 each FS ACHS [facility] Last Admin: 12/27/21 07:41 Dose: 1 each Documented by: Docusate Sodium (Docusate Sodium 100 Mg Capsule) 100 mg PO BID [facility] Last Admin: 12/27/21 08:17 Dose: 100 mg Documented by: Duloxetine HCl (Duloxetine 30 Mg Capsule) 30 mg PO QDAY [facility] Last Admin: 12/27/21 08:17 Dose: 30 mg Documented by: Gabapentin (Gabapentin 400 Mg Capsule) 800 mg PO QID [facility] Last Admin: 12/27/21 08:17 Dose: 800 mg Documented by: Glucose (Dextrose 31 Gm Oral.Susp) 15 gm PO PRN PRN PRN Reason: Hypoglycemia Heparin Sodium (Porcine) (Heparin 5,000 Unit/Ml Vial) 5,000 unit SQ Q12 [facility] Last Admin: 12/27/21 08:18 Dose: 5,000 unit Documented by: Hyoscyamine (Hyoscyamine Sulfate 0.125 Mg Tablet) 0.125 mg PO Q6HP PRN PRN Reason: Abdominal Discomfort Last Admin: 12/26/21 19:31 Dose: 0.125 mg Documented by: Insulin Glargine (Insulin Glargine, Human 1 Unit/0.01 Ml) 50 unit SQ DAILY [facility] Last Admin: 12/27/21 08:18 Dose: 50 unit Documented by: Insulin Human Lispro (Insulin Lispro 1 Unit/0.01 Ml Unit) 0 unit SQ ACHS [facility]; Protocol Last Admin: 12/27/21 07:41 Dose: 4 units Documented by: Insulin Human Lispro (Insulin Lispro 1 Unit/0.01 Ml Unit) 7 unit SQ AC [facility] Last Admin: 12/27/21 07:40 Dose: 7 units Documented by: Iron Carb/Multivit/[place]/Folic Acid (Multivit,Ther Iron,Ca,Fa & Min 1 Tablet) 1 tab PO DAILY [facility] Last Admin: 12/27/21 08:17 Dose: 1 tab Documented by: Lactulose (Lactulose 20 Gm/30 Ml Oral.Alley) 10 gm PO DAILYP PRN PRN Reason: Constipation Last Admin: 12/23/21 07:28 Dose: 10 gm Documented by: Levothyroxine Sodium (Levothyroxine 125 Mcg Tablet) 125 mcg PO QDAY [facility] Last Admin: 12/26/21 08:12 Dose: 125 mcg Documented by: Melatonin (Melatonin 3 Mg Tablet) 3 mg PO HSP PRN PRN Reason: Insomnia Last Admin: 12/26/21 21:35 Dose: 3 mg Documented by: Ondansetron HCl (Ondansetron 4 Mg/2 Ml Vial) 4 mg IV Q4HP PRN; Protocol PRN Reason: Nausea And Vomiting Lipase 40,000 Penitentiary Units, Protease 126, 000 Penitentiary Units, And Amylase 168,000 Penitentiary 1 dose PO TIDCC [facility] Last Admin: 12/27/21 08:20 Dose: 1 dose Documented by: Polyethylene Glycol (Polyethylene Glycol 3350 17 Gm Packet) 17 gm PO DAILY PEG Last Admin: 12/27/21 08:20 Dose: 17 gm Documented by: Izabel (Sennosides 1 Tablet) 2 tab PO HSP PRN PRN Reason: Constipation Last Admin: 12/23/21 11:42 Dose: 2 tab Documented by: ABG Interpretation ABG results: 12/20/21 12/20/21 12/20/21 15:23 19:34 23:21 ABG Methemoglobin 0.1 L 0.3 L 0.2 L VBG pH 7.26 L 7.36 7.40 VBG pCO2 29.9 L 36.8 L 35.8 L VBG pO2 80.3 H 71.2 H 115.4 H VBG HCO3 13.1 L 20.4 L 21.5 L VBG Total CO2 14.1 L 21.5 L 22.6 L VBG O2 Saturation 91.6 H 90.3 H 93.2 H VBG Base Excess -13 L -5 L -3 L 12/21/21 12/21/21 03:35 08:02 ABG Methemoglobin 0.3 L 0.2 L VBG pH 7.37 7.36 VBG pCO2 36.5 L 36.3 L VBG pO2 95.3 H 104.4 H VBG HCO3 20.4 L 20.1 L VBG Total CO2 21.6 L 21.2 L VBG O2 Saturation 93.6 H 92.5 H VBG Base Excess -4 L -5 L A/P Narrative A/P Narrative: A: #Resolved diabetic ketoacidosis, a1c 12.9 #Elevated LFTs of uncertain cause #Resolved prerenal acute kidney injury #Insulin-dependent diabetes mellitus, poorly controlled #Coronary artery disease, stable #Hypothyroidism #Chronic pancreatitis #Essential tremor Plan -Lantus and SSI -Prandial Humalog 7 units with meals. -Adjust basal/bolus insulin doses as needed, hemoglobin A1c was 12.9. -Hold atorvastatin for now for elevated LFTs. -Continue home duloxetine, gabapentin, levothyroxine. -Consistent carbohydrate diet. -PT and OT. -DVT prophylaxis: Heparin SQ -CODE STATUS: Limited Time Spent With Patient Time: Total time spent is greater than 50% in coordination of care (as documented) at patient's floor/unit and/or counseling patient: QUALITY VTE Deep Vein Thrombosis/Pulmonary Embolism Present on Admission: No
[2021-12-27] MEDS: LEVOTHYROXINE 125 MCG TABLET PO SCH (12:20)
[2021-12-27] MEDS: HYOSCYAMINE SULFATE 0.125 MG TABLET PO PRN ×2 (13:15→19:18)
[2021-12-27] MEDS: BUTALB/ACETAMINOPHEN/CAFFEINE 1 TABLET PO PRN (19:18)
[2021-12-27] MEDS: MELATONIN 3 MG TABLET PO PRN (22:06)
--- NOTE | 2021-12-28 07:36 | Internal Med Progress Note ---
SUBJECTIVE Subjective Patient information: Note initiated : 12/28/21 at 7:35 am Service Date, if different from initiated Date: [] Patient: Tennille Castillo a 76 y/o F admitted on 12/20/21 for High blood sugar. Chief Complaint: [] Interval history: Interval history: Ms. Castillo is a 76 year old female with a history of insulin-dependent diabetes mellitus complicated by recurrent hospitalizations for diabetic ketoacidosis, chronic pancreatitis, hypothyroidism, coronary artery disease, hyperlipidemia who presented to the ED emergency department at the request of her primary care provider for hyperglycemia. In the emergency department, the patient was found to have a serum glucose of over 700 and a metabolic acidosis as well as an acute kidney injury. A CT abdomen pelvis was done and did not show any acute changes. These findings are consistent with diabetic ketoacidosis, hospital medicine was consulted for admission. The patient was discharged from [facility] on 12/11/2021 after being treated for diabetic ketoacidosis. It appears that the patient was initially recommended go to a shelter facility for rehab however the patient eventually went home. The patient says that this was because her insurance had refused payment for a shelter facility. It seems like the patient's blood sugar was well controlled during the hospital stay however when the patient returned home she says that the lowest blood sugar she noted was 190. In addition, the patient felt generally weak and lethargic. She was seen by her primary care provider who ordered labs and noted that her blood sugar was extremely elevated and referred her to the emergency department. There is no evidence of infectious causes of diabetic ketoacidosis, no evidence of acute coronary syndrome. Patient says that she was taking her Tresiba and sliding scale insulin as prescribed, she does not feel like she was eating excessive carbohydrates. The patient lives alone and recently has been struggling more with activities of daily living. In particular, she says that she has been having difficulty because of a tremor. On exam the patient does have a significant tremor during activity but disappears at rest consistent with essential tremor. We discussed the plan of care which would include an insulin infusion, correction of electrolyte abnormalities and titrating her basal bolus insulin to achieve better glycemic control. We also discussed the possibility of shelter facility for rehab as she appears to be much weaker than she was during her last hospitalization. We discussed CODE STATUS in detail, the patient wishes to be a limited cold that would include CPR, vasopressors, defibrillation and resynchronization shocks as indicated but not intubation. 12/21 Diabetic ketoacidosis resolved, transitioned off insulin infusion to basal bolus subcutaneous insulin regimen. Awaiting PT and OT recommendations. Transfer to [facility]. 12/22 Elevated LFTs, will follow tomorrow. Recent abdominal ultrasound reviewed. Repla cing phosphorus. Otherwise CM working on prior authorization for short term SNF rehab. 12/23 LFTs trending down, no abdominal tenderness. Morning glucose was 77 but the patient was hyperglycemic during the daytime yesterday. Decreased Lantus to 50 units once a day, increased prandial Humalog to 7 units with meals and decreased sliding scale humalog to medium dose. Pending placement. 12/24 The patient feels well, LFTs increased from yesterday but no tenderness in the right upper quadrant. Ordered limited abdominal ultrasound for further evaluation, the patient has a history of cholecystectomy. Need to evaluate further with advanced imaging such as MRCP. Otherwise the patient is doing well, awaiting placement. 12/25 Blood glucose better controlled. Transaminitis mildly improved but still elevated. We will follow up labs outpatient. 12/26 Pt not discharged yesterday because of Insurance authorization for nursing facility. Patient had poor sleep last night but slept well during the day. No new complaints. 12/27 No overnight event or new complaints. Awaiting discharge. 12/28 Patient feels a little constipated and was hoping to get some laxatives. Although looking at the notes she was on MiraLAX daily but refused several days ago because she had a loose stool. No nausea or vomiting. Review of Systems: denies headache/fever/chills/nausea/vomiting/chest or abdominal pain/co ugh/dyspnea/diarrhea. Otherwise see above. Constitutional Vitals: Vital Signs Temp Pulse Resp BP Pulse Ox 97.5 F 98 H 17 136/86 98 12/28/21 07:24 12/28/21 07:24 12/28/21 07:24 12/28/21 07:24 12/28/21 07:24 Period Temp Pulse Resp BP Sys/Rosario Pulse Ox Last 24 Hr 96.5 F-98.0 F 71-98 14-20 118-155/63-86 94-98 Intake and Output 12/27/21 12/28/21 12/28/21 21:59 05:59 13:59 Intake Total 580 Output Total 1000 1000 Balance -1000 -420 Weight 75.115 kg Intake & Output: Intake & Output 12/27/21 12/28/21 12/28/21 21:59 05:59 13:59 Intake Total 580 Output Total 1000 1000 Balance -1000 -420 Weight 75.115 kg Intake: Oral 580 Output: Urine Catheter Amount 1000 Void Amount 0 1000 # of times incontinent of urine 0 Other: Meal PB & Andres Crackers Percent of Meal Consumed 100% Feeding Ability Independent Urine Appearance Clear Clear Urine Color Dark Yellow Bright Yellow Urine Odor Normal # Voids 0 Exam: General: Alert, Awake, No acute Distress Eyes/N/T: EOMI, Head/Neck: neck supple, CV: RRR, No murmurs, Pulm: Clear b/l, no wheezing/rhonchi/rales Abd: soft, nontender, +BS x4 Ext: no clubbing/cyanosis/edema Neuro: Alert, no focal deficits, moves all extremities, Skin: warm/dry OBJ DATA Labs CBC & Chem 7: 12/20/21 11:18 12/25/21 05:49 Labs: Abnormal Lab Results 12/25/21 05:49 GGT 296 H AST 256 H ALT 161 H Alkaline Phosphatase 168 H Lactate Dehydrogenase 278 H Triglycerides 165 H Meds: Medications Acetaminophen (Acetaminophen 325 Mg Tablet) 650 mg PO Q6HP PRN; Protocol PRN Reason: Per Pain Protocol/Fever > 101 Last Admin: 12/27/21 13:15 Dose: 650 mg Documented by: Acetaminophen/Butalbital/Caffeine (Butalb/Acetaminophen/Caffeine 1 Tablet) 1 tab PO Q6HP PRN PRN Reason: Headache Last Admin: 12/27/21 19:18 Dose: 1 tab Documented by: Acyclovir (Acyclovir 400 Mg Tablet) 400 mg PO BID [facility]; Protocol Last Admin: 12/27/21 21:28 Dose: 400 mg Documented by: Dextrose (Dextrose 50% 50 Ml Vial) 0 ml IV UD PRN PRN Reason: Per Sliding Scale Diagnostic Test (Pha) (Accu-Chek 1 Each Strip) 1 each FS ACHS PEG Last Admin: 12/27/21 21:30 Dose: 1 each Documented by: Docusate Sodium (Docusate Sodium 100 Mg Capsule) 100 mg PO BID [facility] Last Admin: 12/27/21 21:28 Dose: 100 mg Documented by: Duloxetine HCl (Duloxetine 30 Mg Capsule) 30 mg PO QDAY [facility] Last Admin: 12/27/21 08:17 Dose: 30 mg Documented by: Gabapentin (Gabapentin 400 Mg Capsule) 800 mg PO QID [facility] Last Admin: 12/27/21 21:28 Dose: 800 mg Documented by: Glucose (Dextrose 31 Gm Oral.Susp) 15 gm PO PRN PRN PRN Reason: Hypoglycemia Heparin Sodium (Porcine) (Heparin 5,000 Unit/Ml Vial) 5,000 unit SQ Q12 [facility] Last Admin: 12/27/21 21:28 Dose: 5,000 unit Documented by: Hyoscyamine (Hyoscyamine Sulfate 0.125 Mg Tablet) 0.125 mg PO Q6HP PRN PRN Reason: Abdominal Discomfort Last Admin: 12/27/21 19:18 Dose: 0.125 mg Documented by: Insulin Glargine (Insulin Glargine, Human 1 Unit/0.01 Ml) 50 unit SQ DAILY [facility] Last Admin: 12/27/21 08:18 Dose: 50 unit Documented by: Insulin Human Lispro (Insulin Lispro 1 Unit/0.01 Ml Unit) 0 unit SQ [facility]; Protocol Last Admin: 12/27/21 21:30 Dose: Not Given Documented by: Insulin Human Lispro (Insulin Lispro 1 Unit/0.01 Ml Unit) 7 unit SQ AC [facility] Last Admin: 12/27/21 16:40 Dose: 7 units Documented by: Iron Carb/Multivit/[place]/Folic Acid (Multivit,Ther Iron,Ca,Fa & Min 1 Tablet) 1 tab PO DAILY [facility] Last Admin: 12/27/21 08:17 Dose: 1 tab Documented by: Lactulose (Lactulose 20 Gm/30 Ml Oral.Alley) 10 gm PO DAILYP PRN PRN Reason: Constipation Last Admin: 12/23/21 07:28 Dose: 10 gm Documented by: Levothyroxine Sodium (Levothyroxine 125 Mcg Tablet) 125 mcg PO QDAY [facility] Last Admin: 12/27/21 12:20 Dose: 125 mcg Documented by: Melatonin (Melatonin 3 Mg Tablet) 3 mg PO HSP PRN PRN Reason: Insomnia Last Admin: 12/27/21 22:06 Dose: 3 mg Documented by: Ondansetron HCl (Ondansetron 4 Mg/2 Ml Vial) 4 mg IV Q4HP PRN; Protocol PRN Reason: Nausea And Vomiting Lipase 40,000 [place] Units, Protease 126, 000 Prison Units, And Amylase 168,000 [place] 1 dose PO TIDCC [facility] Last Admin: 12/27/21 16:42 Dose: 1 dose Documented by: Polyethylene Glycol (Polyethylene Glycol 3350 17 Gm Packet) 17 gm PO DAILY [facility] Last Admin: 12/27/21 08:20 Dose: 17 gm Documented by: Senna (Sennosides 1 Tablet) 2 tab PO HSP PRN PRN Reason: Constipation Last Admin: 12/23/21 11:42 Dose: 2 tab Documented by: ABG Interpretation ABG results: 12/20/21 12/20/21 12/20/21 15:23 19:34 23:21 ABG Methemoglobin 0.1 L 0.3 L 0.2 L VBG pH 7.26 L 7.36 7.40 VBG pCO2 29.9 L 36.8 L 35.8 L VBG pO2 80.3 H 71.2 H 115.4 H VBG HCO3 13.1 L 20.4 L 21.5 L VBG Total CO2 14.1 L 21.5 L 22.6 L VBG O2 Saturation 91.6 H 90.3 H 93.2 H VBG Base Excess -13 L -5 L -3 L 12/21/21 12/21/21 03:35 08:02 ABG Methemoglobin 0.3 L 0.2 L VBG pH 7.37 7.36 VBG pCO2 36.5 L 36.3 L VBG pO2 95.3 H 104.4 H VBG HCO3 20.4 L 20.1 L VBG Total CO2 21.6 L 21.2 L VBG O2 Saturation 93.6 H 92.5 H VBG Base Excess -4 L -5 L A/P Narrative A/P Narrative: A: #Resolved diabetic ketoacidosis, a1c 12.9 #Elevated LFTs of uncertain cause #Resolved prerenal acute kidney injury #Insulin-dependent diabetes mellitus, poorly controlled #Coronary artery disease, stable #Hypothyroidism #Chronic pancreatitis #Essential tremor Plan -Lantus and SSI -Prandial Humalog 7 units with meals. -Adjust basal/bolus insulin doses as needed, hemoglobin A1c was 12.9. -Hold atorvastatin for now for elevated LFTs. -Continue home duloxetine, gabapentin, levothyroxine. -Consistent carbohydrate diet. -PT and OT. -awaiting placement -DVT prophylaxis: Heparin SQ CODE STATUS: Limited Time Spent With Patient Time: Total time spent is greater than 50% in coordination of care (as documented) at patient's floor/unit and/or counseling patient: QUALITY VTE Deep Vein Thrombosis/Pulmonary Embolism Present on Admission: No
[2021-12-28] MEDS: INSULIN LISPRO 1 UNIT/0.01 ML UNIT SQ SCH ×7 (07:39→20:25)
[2021-12-28] MEDS: PROTEASE PO SCH ×3 (08:52→16:52)
[2021-12-28] MEDS: AMYLASE PO SCH ×3 (08:52→16:52)
[2021-12-28] MEDS: LIPASE PO SCH ×3 (08:52→16:52)
[2021-12-28] MEDS: MULTIVIT,THER IRON,CA,FA & MIN 1 TABLET PO SCH (08:53)
[2021-12-28] MEDS: BUTALB/ACETAMINOPHEN/CAFFEINE 1 TABLET PO PRN (08:56)
[2021-12-28] MEDS: LEVOTHYROXINE 125 MCG TABLET PO SCH (08:57)
[2021-12-28] MEDS: ACYCLOVIR 400 MG TABLET PO SCH ×2 (08:58→20:24)
[2021-12-28] MEDS: DOCUSATE SODIUM 100 MG CAPSULE PO SCH ×2 (08:58→20:24)
[2021-12-28] MEDS: DULoxetine 30 MG CAPSULE PO SCH (08:58)
[2021-12-28] MEDS: GABAPENTIN 400 MG CAPSULE PO SCH ×4 (08:58→20:24)
[2021-12-28] MEDS: HYOSCYAMINE SULFATE 0.125 MG TABLET PO PRN ×3 (09:04→21:46)
[2021-12-28] MEDS: HEPARIN 5,000 UNIT/ML VIAL SQ SCH ×2 (09:04→20:25)
[2021-12-28] MEDS: INSULIN GLARGINE, HUMAN 1 UNIT/0.01 ML SQ SCH (09:09)
[2021-12-28] MEDS: POLYETHYLENE GLYCOL 3350 17 GM PACKET PO SCH (09:10)
[2021-12-28] MEDS: MELATONIN 3 MG TABLET PO PRN (20:28)
[2021-12-29] MEDS: INSULIN LISPRO 1 UNIT/0.01 ML UNIT SQ SCH ×4 (07:23→11:27)
[2021-12-29] MEDS: PROTEASE PO SCH ×2 (07:31→11:26)
[2021-12-29] MEDS: LIPASE PO SCH ×2 (07:31→11:26)
[2021-12-29] MEDS: AMYLASE PO SCH ×2 (07:31→11:26)
[2021-12-29] MEDS: POLYETHYLENE GLYCOL 3350 17 GM PACKET PO SCH (08:06)
[2021-12-29] MEDS: DULoxetine 30 MG CAPSULE PO SCH (08:06)
[2021-12-29] MEDS: GABAPENTIN 400 MG CAPSULE PO SCH ×2 (08:06→12:37)
[2021-12-29] MEDS: ACYCLOVIR 400 MG TABLET PO SCH (08:06)
[2021-12-29] MEDS: LEVOTHYROXINE 125 MCG TABLET PO SCH (08:06)
[2021-12-29] MEDS: MULTIVIT,THER IRON,CA,FA & MIN 1 TABLET PO SCH (08:06)
[2021-12-29] MEDS: HEPARIN 5,000 UNIT/ML VIAL SQ SCH (08:07)
[2021-12-29] MEDS: INSULIN GLARGINE, HUMAN 1 UNIT/0.01 ML SQ SCH (08:07)
[2021-12-29] MEDS: DOCUSATE SODIUM 100 MG CAPSULE PO SCH (08:08)
--- NOTE | 2021-12-29 08:36 | Internal Med Progress Note ---
SUBJECTIVE Subjective Patient information: Note initiated : 12/29/21 at 8:35 am Service Date, if different from initiated Date: [] Patient: Tennille Castillo a 76 y/o F admitted on 12/20/21 for High blood sugar. Chief Complaint: [] Interval history: Interval history: Ms. Castillo is a 76 year old female with a history of insulin-dependent diabetes mellitus complicated by recurrent hospitalizations for diabetic ketoacidosis, chronic pancreatitis, hypothyroidism, coronary artery disease, hyperlipidemia who presented to the ED emergency department at the request of her primary care provider for hyperglycemia. In the emergency department, the patient was found to have a serum glucose of over 700 and a metabolic acidosis as well as an acute kidney injury. A CT abdomen pelvis was done and did not show any acute changes. These findings are consistent with diabetic ketoacidosis, hospital medicine was consulted for admission. The patient was discharged from [facility] on 12/11/2021 after being treated for diabetic ketoacidosis. It appears that the patient was initially recommended go to a long term facility for rehab however the patient eventually went home. The patient says that this was because her insurance had refused payment for a long term facility. It seems like the patient's blood sugar was well controlled during the hospital stay however when the patient returned home she says that the lowest blood sugar she noted was 190. In addition, the patient felt generally weak and lethargic. She was seen by her primary care provider who ordered labs and noted that her blood sugar was extremely elevated and referred her to the emergency department. There is no evidence of infectious causes of diabetic ketoacidosis, no evidence of acute coronary syndrome. Patient says that she was taking her Tresiba and sliding scale insulin as prescribed, she does not feel like she was eating excessive carbohydrates. The patient lives alone and recently has been struggling more with activities of daily living. In particular, she says that she has been having difficulty because of a tremor. On exam the patient does have a significant tremor during activity but disappears at rest consistent with essential tremor. We discussed the plan of care which would include an insulin infusion, correction of electrolyte abnormalities and titrating her basal bolus insulin to achieve better glycemic control. We also discussed the possibility of long term facility for rehab as she appears to be much weaker than she was during her last hospitalization. We discussed CODE STATUS in detail, the patient wishes to be a limited cold that would include CPR, vasopressors, defibrillation and resynchronization shocks as indicated but not intubation. 12/21 Diabetic ketoacidosis resolved, transitioned off insulin infusion to basal bolus subcutaneous insulin regimen. Awaiting PT and OT recommendations. Transfer to [facility]. 12/22 Elevated LFTs, will follow tomorrow. Recent abdominal ultrasound reviewed. Repla cing phosphorus. Otherwise CM working on prior authorization for short term SNF rehab. 12/23 LFTs trending down, no abdominal tenderness. Morning glucose was 77 but the patient was hyperglycemic during the daytime yesterday. Decreased Lantus to 50 units once a day, increased prandial Humalog to 7 units with meals and decreased sliding scale humalog to medium dose. Pending placement. 12/24 The patient feels well, LFTs increased from yesterday but no tenderness in the right upper quadrant. Ordered limited abdominal ultrasound for further evaluation, the patient has a history of cholecystectomy. Need to evaluate further with advanced imaging such as MRCP. Otherwise the patient is doing well, awaiting placement. 12/25 Blood glucose better controlled. Transaminitis mildly improved but still elevated. We will follow up labs outpatient. 12/26 Pt not discharged yesterday because of Insurance authorization for nursing facility. Patient had poor sleep last night but slept well during the day. No new complaints. 12/27 No overnight event or new complaints. Awaiting discharge. 12/28 Patient feels a little constipated and was hoping to get some laxatives. Although looking at the notes she was on MiraLAX daily but refused several days ago because she had a loose stool. No nausea or vomiting. 12/29 No overnight event or new complaints. Awaiting placement. Review of Systems: denies headache/fever/chills/nausea/vomiting/chest or abdominal pain/cough/dyspnea/diarrhea. Otherwise see above. Constitutional Vitals: Vital Signs Temp Pulse Resp BP Pulse Ox 97.5 F 69 16 129/65 92 12/29/21 08:00 12/29/21 08:00 12/29/21 08:00 12/29/21 08:00 12/29/21 08:00 Period Temp Pulse Resp BP Sys/Rosario Pulse Ox Last 24 Hr 97 F-98.3 F 69-87 16-18 121-176/65-94 92-98 Intake and Output 12/28/21 12/29/21 12/29/21 21:59 05:59 13:59 Intake Total 250 1000 Balance 250 1000 Weight 76.34 kg Intake & Output: Intake & Output 12/28/21 12/29/21 12/29/21 21:59 05:59 13:59 Intake Total 250 1000 Balance 250 1000 Weight 76.34 kg Intake: Oral 250 1000 Other: Meal Dinner Percent of Meal Consumed 100% Feeding Ability Independent # Voids 1 1 Exam: General: Alert, Awake, No acute Distress Eyes/N/T: EOMI, Head/Neck: neck supple, CV: RRR, No murmurs, Pulm: Clear b/l, no wheezing/rhonchi/rales Abd: soft, nontender, +BS x4 Ext: no clubbing/cyanosis/edema Neuro: Alert, no focal deficits, moves all extremities, Skin: warm/dry OBJ DATA Labs CBC & Chem 7: 12/20/21 11:18 12/25/21 05:49 Meds: Medications Acetaminophen (Acetaminophen 325 Mg Tablet) 650 mg PO Q6HP PRN; Protocol PRN Reason: Per Pain Protocol/Fever > 101 Last Admin: 12/27/21 13:15 Dose: 650 mg Documented by: Acetaminophen/Butalbital/Caffeine (Butalb/Acetaminophen/Caffeine 1 Tablet) 1 tab PO Q6HP PRN PRN Reason: Headache Last Admin: 12/28/21 08:56 Dose: 1 tab Documented by: Acyclovir (Acyclovir 400 Mg Tablet) 400 mg PO BID [facility]; Protocol Last Admin: 12/29/21 08:06 Dose: 400 mg Documented by: Dextrose (Dextrose 50% 50 Ml Vial) 0 ml IV UD PRN PRN Reason: Per Sliding Scale Diagnostic Test (Pha) (Accu-Chek 1 Each Strip) 1 each FS ACHS [facility] Last Admin: 12/29/21 07:21 Dose: 1 each Documented by: Docusate Sodium (Docusate Sodium 100 Mg Capsule) 100 mg PO BID [facility] Last Admin: 12/29/21 08:08 Dose: 100 mg Documented by: Duloxetine HCl (Duloxetine 30 Mg Capsule) 30 mg PO QDAY [facility] Last Admin: 12/29/21 08:06 Dose: 30 mg Documented by: Gabapentin (Gabapentin 400 Mg Capsule) 800 mg PO QID [facility] Last Admin: 12/29/21 08:06 Dose: 800 mg Documented by: Glucose (Dextrose 31 Gm Oral.Susp) 15 gm PO PRN PRN PRN Reason: Hypoglycemia Heparin Sodium (Porcine) (Heparin 5,000 Unit/Ml Vial) 5,000 unit SQ Q12 [facility] Last Admin: 12/29/21 08:07 Dose: 5,000 unit Documented by: Hyoscyamine (Hyoscyamine Sulfate 0.125 Mg Tablet) 0.125 mg PO Q6HP PRN PRN Reason: Abdominal Discomfort Last Admin: 12/28/21 21:46 Dose: 0.125 mg Documented by: Insulin Glargine (Insulin Glargine, Human 1 Unit/0.01 Ml) 50 unit SQ DAILY [facility] Last Admin: 12/29/21 08:07 Dose: 50 unit Documented by: Insulin Human Lispro (Insulin Lispro 1 Unit/0.01 Ml Unit) 0 unit SQ ACHS [facility]; Protocol Last Admin: 12/29/21 07:23 Dose: Not Given Documented by: Insulin Human Lispro (Insulin Lispro 1 Unit/0.01 Ml Unit) 7 unit SQ AC [facility] Last Admin: 12/29/21 07:30 Dose: 7 units Documented by: Iron Carb/Multivit/[place]/Folic Acid (Multivit,Ther Iron,Ca,Fa & Min 1 Tablet) 1 tab PO DAILY [facility] Last Admin: 12/29/21 08:06 Dose: 1 tab Documented by: Lactulose (Lactulose 20 Gm/30 Ml Oral.Alley) 10 gm PO DAILYP PRN PRN Reason: Constipation Last Admin: 12/23/21 07:28 Dose: 10 gm Documented by: Levothyroxine Sodium (Levothyroxine 125 Mcg Tablet) 125 mcg PO QDAY [facility] Last Admin: 12/29/21 08:06 Dose: 125 mcg Documented by: Melatonin (Melatonin 3 Mg Tablet) 3 mg PO HSP PRN PRN Reason: Insomnia Last Admin: 12/28/21 20:28 Dose: 3 mg Documented by: Ondansetron HCl (Ondansetron 4 Mg/2 Ml Vial) 4 mg IV Q4HP PRN; Protocol PRN Reason: Nausea And Vomiting Lipase 40,000 Long Term Units, Protease 126, 000 Long Term Units, And Amylase 168,000 Long Term 1 dose PO TIDCC [facility] Last Admin: 12/29/21 07:31 Dose: 1 dose Documented by: Polyethylene Glycol (Polyethylene Glycol 3350 17 Gm Packet) 17 gm PO DAILY PEG Last Admin: 12/29/21 08:06 Dose: 17 gm Documented by: Senna (Sennosides 1 Tablet) 2 tab PO HSP PRN PRN Reason: Constipation Last Admin: 12/23/21 11:42 Dose: 2 tab Documented by: ABG Interpretation ABG results: 12/20/21 12/20/21 12/20/21 15:23 19:34 23:21 ABG Methemoglobin 0.1 L 0.3 L 0.2 L VBG pH 7.26 L 7.36 7.40 VBG pCO2 29.9 L 36.8 L 35.8 L VBG pO2 80.3 H 71.2 H 115.4 H VBG HCO3 13.1 L 20.4 L 21.5 L VBG Total CO2 14.1 L 21.5 L 22.6 L VBG O2 Saturation 91.6 H 90.3 H 93.2 H VBG Base Excess -13 L -5 L -3 L 12/21/21 12/21/21 03:35 08:02 ABG Methemoglobin 0.3 L 0.2 L VBG pH 7.37 7.36 VBG pCO2 36.5 L 36.3 L VBG pO2 95.3 H 104.4 H VBG HCO3 20.4 L 20.1 L VBG Total CO2 21.6 L 21.2 L VBG O2 Saturation 93.6 H 92.5 H VBG Base Excess -4 L -5 L A/P Narrative A/P Narrative: A: #Resolved diabetic ketoacidosis, a1c 12.9 #Elevated LFTs of uncertain cause #Resolved prerenal acute kidney injury #Insulin-dependent diabetes mellitus, poorly controlled #Coronary artery disease, stable #Hypothyroidism #Chronic pancreatitis #Essential tremor Plan -Lantus and SSI -Prandial Humalog 7 units with meals. -Adjust basal/bolus insulin doses as needed, hemoglobin A1c was 12.9. -Hold atorvastatin for now for elevated LFTs. -Continue home duloxetine, gabapentin, levothyroxine. -Consistent carbohydrate diet. -PT and OT. -awaiting placement -DVT prophylaxis: Heparin SQ CODE STATUS: Limited Time Spent With Patient Time: Total time spent is greater than 50% in coordination of care (as documented) at patient's floor/unit and/or counseling patient: QUALITY VTE Deep Vein Thrombosis/Pulmonary Embolism Present on Admission: No
[2021-12-29] MEDS: HYOSCYAMINE SULFATE 0.125 MG TABLET PO PRN (08:40)
[2021-12-29] MEDS: BUTALB/ACETAMINOPHEN/CAFFEINE 1 TABLET PO PRN (10:19)
== END 2021-12-29 15:45 | disposition home health service (06) | DRG 638 ==
LOC: ED 10:14 → ICU 14:55 → MEDSUR 12-21 13:03
PROVIDERS: ADMIT Internal Medicine; ATTEND Internal Medicine

== ENCOUNTER 2022-02-07 15:03 | Inpatient (IN) ==
[2022-02-07 15:48] LABS: POC Calcium, Ionized 1.16 (1.16-1.32); POC Creatinine 1.4 (0.6-1.2); POC Potassium 4.8 (3.3-5.1)
--- NOTE | 2022-02-07 15:59 | Emergency Department Note ---
HPI <Rios Burton PA-C - Last Filed: 02/07/22 21:47> General Chief complaint: Blood Sugar Problem Stated complaint: HYPRGLYEMIC Time Seen by Provider: 02/07/22 15:22 Source: patient Mode of arrival: EMS Limitations: no limitations History of Present Illness HPI Narrative: Narrative: 76-year-old female with a history of uncontrolled diabetes, diabetic ketoacidosis, pseudohyponatremia, hypomagnesemia, DELICIA, fibromyalgia, degenerative disc disease, essential tremor, hypothyroidism presents the ER to be evaluated for abdominal pain, malaise, elevated blood sugars, polydipsia, polyphagia polyuria she states her blood sugars were good last week but this week they have been doing way worse. She states she had her thyroid medication changed last week. She states she is felt hot but has had no objective fever, she had nausea without vomiting, general abdominal pain associated with her blood sugars being high and denies urinary symptoms. Related Data Home Medications Medication Instructions Recorded Confirmed [id number] 40,000 cap PO TID 06/01/21 02/07/22 40,000-126,000-168,000 unit capsule, delay rel (Zenpep) Lactobacillus acidophilus 2 tab PO BID tab 07/15/21 02/07/22 (Acidophilus) hyoscyamine sulfate 0.125 mg 0.125 mg PO Q6H PRN tab 07/15/21 02/07/22 sublingual tablet multivit [id number] 186 1 tab PO DAILY 07/15/21 02/07/22 [Hair, Skin and Nails Advanced] trazodone 100 mg tablet 100 mg PO HSP PRN 08/22/21 02/07/22 duloxetine 30 mg capsule,delayed 30 mg PO QDAY 09/20/21 02/07/22 release acyclovir 400 mg tablet 1 tab PO BID 09/21/21 02/07/22 gabapentin 800 mg tablet 1 tab PO QID 09/21/21 02/07/22 cholecalciferol (vitamin D3) 50 50 mcg PO DAILY 12/04/21 02/07/22 mcg (2,000 unit) capsule (Vitamin D3) zinc 50 mg tablet 50 mg PO DAILY 12/04/21 02/07/22 levothyroxine 100 mcg tablet 100 mcg PO QDAY 02/07/22 02/07/22 propranolol 10 mg PO TID 02/07/22 02/07/22 Previous Rx's Medication Instructions Recorded insulin degludec 100 unit/mL 30 unit (0.3 mL) SUBCUT BID #1 ml 09/22/21 subcutaneous solution (Tresiba U-100 Insulin) insulin regular human 100 unit/mL See Protocol SUBCUT AC #10 ml 12/25/21 injection solution (Novolin R Regular U-100 Insulin) Allergies Allergy/AdvReac Type Severity Reaction Status Date / Time cephalexin [From Keflex] Allergy Intermediate Swelling Verified 02/07/22 20:49 Penicillins Allergy Mild Rash Verified 02/07/22 20:49 Anistreplase [From Eminase] Allergy Unknown UNKNOWN Verified 02/07/22 20:49 fenugreek Allergy Unknown UNKNOWN Verified 02/07/22 20:49 codeine AdvReac Mild Itching Verified 02/07/22 20:49 Erythromycin Base AdvReac Mild Itching Verified 02/07/22 20:49 Nortriptyline AdvReac Mild Nausea Verified 02/07/22 20:49 promethazine AdvReac Mild Fainting Verified 02/07/22 20:49 trulicity AdvReac Intermediate Other Uncoded 12/04/21 06:40 Review of Systems <Rios Burton PA-C - Last Filed: 02/07/22 21:47> ROS ROS Narrative: Narrative: All systems ED: reviewed and negative except as stated. [facility] <Rios Burotn PA-C - Last Filed: 02/07/22 21:47> Narrative Patient History Narrative: Narrative: Medical/Surgical/Family History All Active Problems (Updated 02/07/22 @ 21:47 by Rios Burton PA-C) Diabetic keto-acidosis (Acute) Pseudohyponatremia (Acute) DKA (diabetic ketoacidosis) (Acute) Hypomagnesemia (Acute) Generalized weakness (Acute) Acute dehydration (Acute) Diabetic ketosis (Acute) Acute dyspnea (Acute) Obstructive sleep apnea (Acute) DKA (diabetic ketoacidosis) (Acute) Vulvovaginitis due to yeast (Acute) Sleepwalking (Chronic) REM sleep behavior disorder (Chronic) Hypersomnia (Chronic) Snoring (Chronic) Tremor (Chronic) Neurofibromatosis 2 (Chronic) Trigger finger (Chronic) Sleep disturbance (Chronic) Arthralgia (Chronic) Pancreatitis (Chronic) Macular degeneration (Chronic) Hepatitis A (Chronic) Glaucoma (Chronic) Fibromyalgia (Chronic) DDD (degenerative disc disease), cervical (Chronic) Diabetic retinopathy (Chronic) Opioid dependence (Chronic) Stress (Chronic) Hard of hearing (Chronic) Multiple environmental allergies (Chronic) Fracture of lumbar spine (Chronic) Compression fracture of lumbosacral spine (Chronic) Abdominal pain (Chronic) Chronic pancreatitis (Chronic) Liver mass (Chronic) Cirrhosis of liver (Chronic) Constipation (Chronic) Neuropathy (Chronic) Chronic pain (Chronic) Essential tremor (Chronic) Bimalleolar ankle fracture (Chronic) Chronic bronchitis with acute exacerbation (Chronic) Dehydration (Chronic) Epistaxis (Chronic) Hypoxia (Chronic) Anterior epistaxis (Chronic) Candidiasis of mouth (Chronic) DKA (diabetic ketoacidosis) (Chronic) Conjunctivitis (Chronic) Bronchitis (Chronic) Dehiscence of closure of skin (Chronic) Anemia (Chronic) Elevated liver enzymes (Chronic) 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) Radiculopathy, sacral and sacrococcygeal region (Chronic) Radiculopathy, lumbosacral region (Chronic) Insomnia (Chronic) Levator syndrome (Chronic) Sacrococcygeal pain (Chronic) History of surgery (Chronic) Hypothyroidism (Chronic) Chronic bronchitis (Chronic) 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) Depression (Chronic) Anxiety (Chronic) Hypertension (Chronic) Osteoporosis (Chronic) Rectal pain (Chronic) Low back pain (Chronic) Pain in thoracic spine (Chronic) Age-related osteoporosis with current pathological fracture, vertebra(e), initial encounter for fracture (Chronic) Medical History Abdominal pain Acute exacerbation of chronic obstructive airways disease Age-related osteoporosis with current pathological fracture, vertebra(e), initial encounter for fracture Anemia Anterior epistaxis Anxiety Arthralgia Bilateral primary osteoarthritis of hip Bimalleolar ankle fracture Bronchitis Candidiasis of mouth Chronic bronchitis with acute exacerbation Chronic pain Chronic pancreatitis Cirrhosis of liver Compression fracture of lumbosacral spine Conjunctivitis Constipation DDD (degenerative disc disease), cervical Dehiscence of closure of skin Dehydration Depression Diabetic retinopathy DKA (diabetic ketoacidosis) Elevated liver enzymes Epistaxis Essential tremor Fibromyalgia Fracture of lumbar spine Glaucoma Hard of hearing Hepatitis A Hyperglycemia due to type 2 diabetes mellitus Hypersomnia Hypertension Hypothyroidism Hypoxia Insomnia Levator syndrome Lipomatosis Liver mass Low back pain Macular degeneration Multiple environmental allergies Neurofibromatosis 2 Neuropathy Obstructive sleep apnea Opioid dependence Osteoporosis Pain in thoracic spine Pancreatitis Radiculopathy, lumbosacral region Radiculopathy, sacral and sacrococcygeal region Rectal pain REM sleep behavior disorder Sacrococcygeal pain Sleep disturbance Sleepwalking Snoring Stress Tremor Trigger finger Surgical History History of appendectomy (~1969) History of arthroplasty of right ankle (~2017) History of cataract surgery (~2003) History of cholecystectomy History of colonoscopy (~06/26/18) History of decompression of median nerve (~2003) History of dilation and curettage History of eye surgery (~2005) Glaucoma History of hand surgery (~2003) Release of trigger finger, right History of left breast biopsy (~2005) History of oophorectomy History of surgery Vertebroplasty T12 w/sed 09/28/19 History of surgery retinopathy laser Stereotactic destruction of lesion using gamma radiation-2004 History of surgery on wrist History of tonsillectomy and adenoidectomy (~1969) Family History Mother Heart disease Fibromyalgia Father Malignant melanoma Malignant tumor of prostate Leukemia Social History Smoking Status: Never smoker Alcohol Intake Frequency: does not drink Exam <Rios Burton PA-C - Last Filed: 02/07/22 21:47> Narrative Narrative: Narrative: Gen: No acute distress, patient peacefully sleeping when I came into the room Eyes: PERRL, no conjunctival injection , and symmetrical lids. Sclerae non icte lakisha HENMT: Normocephalic Atraumatic head, external nose and ears. Moist MM. Neck: Symmetric, trachea midline, midline neck scar from what appears to be a thyroidectomy CVS: +S1/S2, No murmurs or gallops. Radial pulses 2+ and equal bilat. No swelling RESP: Unlabored respiratory effort . Clear to auscultation bilaterally (CTAB). No noted wheezes rales or ronchi. GI: Diffusely tender but nondistended abdomen, no guarding, rigidity or evidence of focal peritonitis MSK: Extremities w/o deformity or ttp. No cyanosis or clubbing. Skin: Warm, Dry . No rashes or lesions . Cap refill less than 2. Neuro: No focal neurological deficit Psych: Awake, Alert, & Oriented (AAO) x3. Appropriate mood and affect . General Limitations: no limitations Course <Rios Burton PA-C - Last Filed: 02/07/22 21:47> Vital Signs Vital signs: Vital Signs Temperature 96.7 F L 02/07/22 15:05 Pulse Rate 80 02/07/22 15:05 Respiratory Rate 1 L 02/07/22 15:05 Blood Pressure 126/59 02/07/22 15:05 Pulse Oximetry (%) 98 02/07/22 15:05 Temperature 96.4 F L 02/13/22 16:00 Pulse Rate 70 02/13/22 16:00 Respiratory Rate 12 02/13/22 16:00 Blood Pressure 147/75 02/13/22 16:00 Pulse Oximetry (%) 95 02/13/22 16:00 MDM <Rios Burton PA-C - Last Filed: 02/07/22 21:47> MDM Narrative Medical decision making narrative: Narrative: Patient presents the ER for high blood sugars. She will be evaluated for DKA and will be started initially with a liter of normal saline. She will be evaluated with CBC, Chem-8, hepatic panel, BHB, CG 4, TSH and magnesium. CBC: Slightly elevated white count otherwise unremarkable Chem8: Potassium is normal, bump in creatinine elevated anion gap Hepatic panel: Unremarkable BHB: 7.29 cg4: Acidosis, decreased bicarb, lactate to upper limit of normal TSH: 22.38 H severely hypothyroid Mag: Normal Patient started on insulin drip. Patient has anion gap acidosis and elevated beta hydroxybutyrate in addition to hypothyroid which is likely contributing to her elevation of blood sugars rather than an infectious source. Dr. Curry will be consulted for admission. Dr. Curry: Requested a chest x-ray and a UA and he will follow up on results and admit the patient. Chest x-ray: Pending UA: Pending Lab Data Result diagrams: 02/07/22 15:41 02/12/22 09:56 Labs: Lab Results 02/07/22 02/07/22 02/07/22 Range/Units 15:41 15:41 15:42 WBC 11.2 H (4.5-11.0) K/mcL RBC 4.36 (3.59-5.38) M/mcL Hgb 13.8 (11.2-15.7) g/dL Hct 39.5 (34.1-44.9) % POC Hct (36-48) MCV 90.6 (80.0-100.0) fL MCH 31.7 (26.0-34.0) pg MCHC 34.9 (31.0-36.0) g/dL RDW 13.3 (11.5-14.5) % Plt Count 211 (140-440) K/mcL MPV 10.5 H (7.4-10.4) fL Neut % (Auto) 72.2 (38.0-78.0) % Lymph % (Auto) 21.2 (15.5-49.0) % Davison % (Auto) 6.1 (1.0-12.0) % Eos % (Auto) 0.1 (0.0-7.0) % Baso % (Auto) 0.4 (0.0-2.0) % Lymph # (Auto) 2.38 (1.50-4.80) K/mcL Davison # (Auto) 0.69 (0.10-0.90) K/mcL Eos # (Auto) 0.01 (0.00-0.70) K/mcL Baso # (Auto) 0.04 (0.00-0.30) K/mcL Absolute Neutrophils 8.10 H (1.80-8.00) K/mcL POC VBG pH 7.21 L (7.32-7.42) POC VBG pCO2 at Temp 27.2 L (41-51) POC VBG pO2 32 (25-40) POC VBG HCO3 10.9 L* (24-28) POC VBG Total CO2 12.0 L (25-29) POC Venous O2 Sat 50.0 (40-70) POC VBG Base Excess -17.0 L (-2-2) POC Sodium (133-145) POC Potassium (3.3-5.1) POC Chloride (96-108) POC Total CO2 (22-30) POC BUN (6-20) POC Creatinine (0.6-1.2) POC Glucose (70-105) POC Venous Lactate 2.0 (0.5-2) POC WB Ioniz Calcium (1.16-1.32) Magnesium 2.2 (1.6-2.5) mg/dL Total Bilirubin 0.7 (0.1-1.0) mg/dL Direct Bilirubin 0.2 (<0.3) mg/dL AST 31 (<32) U/L ALT 67 H (<40) U/L Alkaline Phosphatase 140 H (39-117) U/L Total Protein 7.3 (5.9-8.4) gm/dL Albumin 4.4 (3.2-5.2) gm/dL Globulin 2.9 (2.2-3.7) gm/dL Beta-Hydroxybutyrate 7.29 H (<0.27) mmol/L TSH 22.38 H (0.27-5.01) uIU/mL Urine Color Urine Appearance (Clear) Urine pH (5.0-9.0) Ur Specific Henry (1.000-1.035) Urine Protein (Negative) mg/dL Urine Glucose (UA) (Negative) mg/dL Urine Ketones (Negative) mg/dL Urine Occult Blood (Negative) mg/dL Urine Nitrate (Negative) Urine Bilirubin (Negative) mg/dL Urine Urobilinogen mg/dL Ur Leukocyte Esterase (Negative) /uL Urine RBC (0-3) /hpf Urine WBC (0-4) /hpf Ur Squamous Epith Cells (0-4) /hpf Urine Bacteria (0) /hpf Hyaline Casts (0-2) /lph Urine Mucus (None) /hpf Ur Culture Indicated? 02/07/22 02/07/22 Range/Units 15:46 17:37 WBC (4.5-11.0) K/mcL RBC (3.59-5.38) M/mcL Hgb (11.2-15.7) g/dL Hct (34.1-44.9) % POC Hct 42.0 (36-48) MCV (80.0-100.0) fL MCH (26.0-34.0) pg MCHC (31.0-36.0) g/dL RDW (11.5-14.5) % Plt Count (140-440) K/mcL MPV (7.4-10.4) fL Neut % (Auto) (38.0-78.0) % Lymph % (Auto) (15.5-49.0) % Davison % (Auto) (1.0-12.0) % Eos % (Auto) (0.0-7.0) % Baso % (Auto) (0.0-2.0) % Lymph # (Auto) (1.50-4.80) K/mcL Davison # (Auto) (0.10-0.90) K/mcL Eos # (Auto) (0.00-0.70) K/mcL Baso # (Auto) (0.00-0.30) K/mcL Absolute Neutrophils (1.80-8.00) K/mcL POC VBG pH (7.32-7.42) POC VBG pCO2 at Temp (41-51) POC VBG pO2 (25-40) POC VBG HCO3 (24-28) POC VBG Total CO2 (25-29) POC Venous O2 Sat (40-70) POC VBG Base Excess (-2-2) POC Sodium 128 L (133-145) POC Potassium 4.8 (3.3-5.1) POC Chloride 98 (96-108) POC Total CO2 12.0 L (22-30) POC BUN 33 H (6-20) POC Creatinine 1.4 H (0.6-1.2) POC Glucose 509 H* (70-105) POC Venous Lactate (0.5-2) POC WB Ioniz Calcium 1.16 (1.16-1.32) Magnesium (1.6-2.5) mg/dL Total Bilirubin (0.1-1.0) mg/dL Direct Bilirubin (<0.3) mg/dL AST (<32) U/L ALT (<40) U/L Alkaline Phosphatase (39-117) U/L Total Protein (5.9-8.4) gm/dL Albumin (3.2-5.2) gm/dL Globulin (2.2-3.7) gm/dL Beta-Hydroxybutyrate (<0.27) mmol/L TSH (0.27-5.01) uIU/mL Urine Color Yellow Urine Appearance Hazy A (Clear) Urine pH 5.0 (5.0-9.0) Ur Specific Henry 1.022 (1.000-1.035) Urine Protein Negative (Negative) mg/dL Urine Glucose (UA) >=500 A (Negative) mg/dL Urine Ketones 80 A (Negative) mg/dL Urine Occult Blood 0.03 (Negative) mg/dL Urine Nitrate Negative (Negative) Urine Bilirubin Negative (Negative) mg/dL Urine Urobilinogen Negative mg/dL Ur Leukocyte Esterase 250 A (Negative) /uL Urine RBC 3 (0-3) /hpf Urine WBC 83 H (0-4) /hpf Ur Squamous Epith Cells < 1 (0-4) /hpf Urine Bacteria Few A (0) /hpf Hyaline Casts 4 H (0-2) /lph Urine Mucus Few A (None) /hpf Ur Culture Indicated? yes Discharge Plan Patient/Caregiver Discharge Instructions Pt seen by TECHNOLOGY DIRECTOR/PA only: Yes Clinical Impression: DKA (diabetic ketoacidosis) Activity: increase activity as tolerated Patient Disposition: Xfer As Inpt ([facility]) Condition: Fair Discharge Date/Time: 02/07/22 18:46 Discharge Comment: Taken to ICU via stretcher
[2022-02-07 16:24] LABS: Basophils # (Auto) 0.04 K/mcL (0.00-0.30); Basophils % (Auto) 0.4 % (0.0-2.0); Eosinophils # (Auto) 0.01 K/mcL (0.00-0.70); Eosinophils % (Auto) 0.1 % (0.0-7.0); Hematocrit 39.5 % (34.1-44.9); Hemoglobin 13.8 g/dL (11.2-15.7); Lymphocytes # (Auto) 2.38 K/mcL (1.50-4.80); Lymphocytes % (Auto) 21.2 % (15.5-49.0); Mean Cell Volume 90.6 fL (80.0-100.0); Mean Corpuscular HGB Conc 34.9 g/dL (31.0-36.0); Mean Platelet Volume 10.5 fL (7.4-10.4); Monocytes # (Auto) 0.69 K/mcL (0.10-0.90); Monocytes % (Auto) 6.1 % (1.0-12.0); Neutrophils % (Auto) 72.2 % (38.0-78.0); Platelet Count 211 K/mcL (140-440); RBC 4.36 M/mcL (3.59-5.38); Red Cell Distribution Width 13.3 % (11.5-14.5); WBC 11.2 K/mcL (4.5-11.0)
[2022-02-07] MEDS ORDERED: 0.9 % SODIUM CHLORIDE 1,000 ML IV ONE (16:34)
[2022-02-07] MEDS: INSULIN REGULAR, HUMAN 50 UNIT in 0.9 % SODIUM CHLORIDE 99.5 ML IV SCH ×2 (16:54→22:38)
[2022-02-07 17:00] LABS: ALT/SGPT 67 U/L (<40); AST/SGOT 31 U/L (<32); Albumin 4.4 gm/dL (3.2-5.2); Alkaline Phosphatase 140 U/L (39-117); Bilirubin,Direct 0.2 mg/dL (<0.3); Bilirubin,Total 0.7 mg/dL (0.1-1.0); Globulin 2.9 gm/dL (2.2-3.7); Thyroid Stimulating Hormone 22.38 uIU/mL (0.27-5.01)
[2022-02-07 17:06] LABS: Beta Hydroxybutyrate 7.29 mmol/L (<0.27)
[2022-02-07] MEDS ORDERED: ONDANSETRON 4 MG/2 ML VIAL IV PRN (17:36)
[2022-02-07] MEDS ORDERED: NITROGLYCERIN 0.4 MG TAB.SUBL SL PRN (17:36)
[2022-02-07] MEDS ORDERED: BISACODYL 10 MG SUPP.RECT PR PRN (17:36)
[2022-02-07] MEDS ORDERED: PROMETHAZINE 25 MG/ML VIAL IV PRN (17:36)
[2022-02-07] MEDS ORDERED: SENNOSIDES 1 TABLET PO PRN (17:36)
[2022-02-07] MEDS ORDERED: IPRATROPIUM/ALBUTEROL 3 ML AMPUL.NEB NEB PRN (17:36)
[2022-02-07] MEDS ORDERED: DEXTROSE 5%-NS 1,000 ML IV PRN (17:45)
[2022-02-07] MEDS ORDERED: INSULIN REGULAR, HUMAN 50 UNIT in 0.9 % SODIUM CHLORIDE 100 ML IV SCH (17:45)
--- NOTE | 2022-02-07 17:51 | XRay Report ---
CLINICAL INFORMATION: Cough COMPARISON: 12/20/2021. TECHNIQUE: Portable FINDINGS: The heart size, mediastinum and pulmonary vessels are unremarkable. The lungs are clear. There are no effusions. The bones and soft tissues are within normal limits. IMPRESSION: Normal chest. Interpreted and Authenticated by: Will Brito 02/07/22
[2022-02-07 18:31] LABS: Appearance,Urine HAZY (Clear); Bacteria,Urine FEW /hpf (0); Bilirubin,Urine Negative (Negative); Color,Urine YELLOW; Culture Indicated,Urine yes; Glucose,Urine (UA) >=500 mg/dL (Negative); Ketones,Urine 80 mg/dL (Negative); Leukocyte Esterase,Urine 250 /uL (Negative); Mucus,Urine FEW /hpf; Nitrate,Urine Negative (Negative); Protein,Urine Negative (Negative); Specific Gravity,Urine 1.022 (1.000-1.035); Urine Blood 0.03 mg/dL (Negative); Urine Hyaline Cast 4 /lph (0-2); Urine RBC 3 /hpf (0-3); Urine Squamous Epithelial Cell < 1 /hpf (0-4); Urine WBC 83 /hpf (0-4); Urobilinogen,Urine Negative
[2022-02-07] MEDS: 0.9 % SODIUM CHLORIDE 1,000 ML IV SCH (19:11)
--- NOTE | 2022-02-07 19:25 | Internal Med History&Physical ---
HPI History of Present Illness Patient information: Note initiated : 02/07/22 at 7:23 pm Service Date, if different from initiated Date: [] Patient: Tennille Castillo a 76 y/o F admitted on 02/07/22 for HYPRGLYEMIC. Chief Complaint: [] History of present illness: Ms. Castillo is a 76 year old F This is a 76-year-old female with a history of type 2 diabetes had a recurrent hospital admissions for DKA, chronic pancreatitis hypothyroidism, coronary art vicki disease hyperlipidemia who is present to the ER with a blood glucose of more than 500 and tiredness. Patient continued having chronic abdominal pain no significant worsening she also complaining of some lower abdominal pain and her urine analysis was positive for UTI and started on ceftriaxone in the ED patient had a recent admissions for the same and was supposed to be discharged to a rehab facility when finally patient ended up choosing going home and she failed home multiple times. ED physician seriously doubt her insulin management at home CODE STATUS discussed with the patient and she want to be limited intervention which includes CPR vasopressors defibrillation resynchronization shock as indicated but no intubation Review of systems Constitutional: Positive for fatigue and chills, no fever Eyes: no vision changes or pain Cardiovascular: no chest pain, no palpitations Respiratory: no cough or dyspnea Gastrointestinal: Positive for nausea and abdominal discomfort. Genitourinary: no dysuria or difficulty voiding Musculoskeletal: no arthralgia or myalgia Integumentary: no skin lesion or wound Neurological: no focal weakness or numbness Psychiatric: no anxiety or depression Physical exam Head: Small bruise over left orbit. Eyes: normal appearance, no scleral icterus. Neck: full ROM Respiratory: no respiratory distress. Cardiovascular: normal rate and rhythm, S1, S2. GI/Abdominal: soft, nontender, no guarding. Extremities: full range of motion, nontender. Neurological: CN II-XII intact, intact motor, intact sensation. Psychiatric: normal mood. Skin: warm, normal color PFSH PFSH All Active Problems (Updated 02/07/22 @ 21:47 by Rios Burton PA-C) Diabetic keto-acidosis (Acute) Pseudohyponatremia (Acute) DKA (diabetic ketoacidosis) (Acute) Hypomagnesemia (Acute) Generalized weakness (Acute) Acute dehydration (Acute) Diabetic ketosis (Acute) Acute dyspnea (Acute) Obstructive sleep apnea (Acute) DKA (diabetic ketoacidosis) (Acute) Vulvovaginitis due to yeast (Acute) Sleepwalking (Chronic) REM sleep behavior disorder (Chronic) Hypersomnia (Chronic) Snoring (Chronic) Tremor (Chronic) Neurofibromatosis 2 (Chronic) Trigger finger (Chronic) Sleep disturbance (Chronic) Arthralgia (Chronic) Pancreatitis (Chronic) Macular degeneration (Chronic) Hepatitis A (Chronic) Glaucoma (Chronic) Fibromyalgia (Chronic) DDD (degenerative disc disease), cervical (Chronic) Diabetic retinopathy (Chronic) Opioid dependence (Chronic) Stress (Chronic) Hard of hearing (Chronic) Multiple environmental allergies (Chronic) Fracture of lumbar spine (Chronic) Compression fracture of lumbosacral spine (Chronic) Abdominal pain (Chronic) Chronic pancreatitis (Chronic) Liver mass (Chronic) Cirrhosis of liver (Chronic) Constipation (Chronic) Neuropathy (Chronic) Chronic pain (Chronic) Essential tremor (Chronic) Bimalleolar ankle fracture (Chronic) Chronic bronchitis with acute exacerbation (Chronic) Dehydration (Chronic) Epistaxis (Chronic) Hypoxia (Chronic) Anterior epistaxis (Chronic) Candidiasis of mouth (Chronic) DKA (diabetic ketoacidosis) (Chronic) Conjunctivitis (Chronic) Bronchitis (Chronic) Dehiscence of closure of skin (Chronic) Anemia (Chronic) Elevated liver enzymes (Chronic) 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) Radiculopathy, sacral and sacrococcygeal region (Chronic) Radiculopathy, lumbosacral region (Chronic) Insomnia (Chronic) Levator syndrome (Chronic) Sacrococcygeal pain (Chronic) History of surgery (Chronic) Hypothyroidism (Chronic) Chronic bronchitis (Chronic) 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) Depression (Chronic) Anxiety (Chronic) Hypertension (Chronic) Osteoporosis (Chronic) Rectal pain (Chronic) Low back pain (Chronic) Pain in thoracic spine (Chronic) Age-related osteoporosis with current pathological fracture, vertebra(e), initial encounter for fracture (Chronic) Medical History Abdominal pain Acute exacerbation of chronic obstructive airways disease Age-related osteoporosis with current pathological fracture, vertebra(e), initial encounter for fracture Anemia Anterior epistaxis Anxiety Arthralgia Bilateral primary osteoarthritis of hip Bimalleolar ankle fracture Bronchitis Candidiasis of mouth Chronic bronchitis with acute exacerbation Chronic pain Chronic pancreatitis Cirrhosis of liver Compression fracture of lumbosacral spine Conjunctivitis Constipation DDD (degenerative disc disease), cervical Dehiscence of closure of skin Dehydration Depression Diabetic retinopathy DKA (diabetic ketoacidosis) Elevated liver enzymes Epistaxis Essential tremor Fibromyalgia Fracture of lumbar spine Glaucoma Hard of hearing Hepatitis A Hyperglycemia due to type 2 diabetes mellitus Hypersomnia Hypertension Hypothyroidism Hypoxia Insomnia Levator syndrome Lipomatosis Liver mass Low back pain Macular degeneration Multiple environmental allergies Neurofibromatosis 2 Neuropathy Obstructive sleep apnea Opioid dependence Osteoporosis Pain in thoracic spine Pancreatitis Radiculopathy, lumbosacral region Radiculopathy, sacral and sacrococcygeal region Rectal pain REM sleep behavior disorder Sacrococcygeal pain Sleep disturbance Sleepwalking Snoring Stress Tremor Trigger finger Surgical History History of appendectomy (~1969) History of arthroplasty of right ankle (~2017) History of cataract surgery (~2003) History of cholecystectomy History of colonoscopy (~06/26/18) History of decompression of median nerve (~2003) History of dilation and curettage History of eye surgery (~2005) Glaucoma History of hand surgery (~2003) Release of trigger finger, right History of left breast biopsy (~2005) History of oophorectomy History of surgery Vertebroplasty T12 w/sed 09/28/19 History of surgery retinopathy laser Stereotactic destruction of lesion using gamma radiation-2004 History of surgery on wrist History of tonsillectomy and adenoidectomy (~1969) Family History Mother Heart disease Fibromyalgia Father Malignant melanoma Malignant tumor of prostate Leukemia Social History education level: college occupational status: retired smoking status: Never smoker alcohol intake frequency: does not drink MEDS/ALLERGIES Home Medications and Allergies Home Medications Medication Instructions Recorded Confirmed Type [id number] 40,000 cap PO TID 06/01/21 02/07/22 History 40,000-126,000-168,000 unit capsule, delay rel (Zenpep) Lactobacillus acidophilus 2 tab PO BID tab 07/15/21 02/07/22 History (Acidophilus) hyoscyamine sulfate 0.125 mg 0.125 mg PO Q6H PRN tab 07/15/21 02/07/22 History sublingual tablet multivit [id number] 186 1 tab PO DAILY 07/15/21 02/07/22 History [Hair, Skin and Nails Advanced] trazodone 100 mg tablet 100 mg PO HSP PRN 08/22/21 02/07/22 History duloxetine 30 mg capsule,delayed 30 mg PO QDAY 09/20/21 02/07/22 History release acyclovir 400 mg tablet 1 tab PO BID 09/21/21 02/07/22 History gabapentin 800 mg tablet 1 tab PO QID 09/21/21 02/07/22 History insulin degludec 100 unit/mL 30 unit (0.3 mL) SUBCUT BID #1 ml 09/22/21 02/07/22 Rx subcutaneous solution (Tresiba U-100 Insulin) cholecalciferol (vitamin D3) 50 50 mcg PO DAILY 12/04/21 02/07/22 History mcg (2,000 unit) capsule (Vitamin D3) zinc 50 mg tablet 50 mg PO DAILY 12/04/21 02/07/22 History insulin regular human 100 unit/mL See Protocol SUBCUT AC #10 ml 12/25/21 02/07/22 Rx injection solution (Novolin R Regular U-100 Insulin) levothyroxine 100 mcg tablet 100 mcg PO QDAY 02/07/22 02/07/22 History propranolol 10 mg PO TID 02/07/22 02/07/22 History Allergies Allergy/AdvReac Type Severity Reaction Status Date / Time cephalexin [From Keflex] Allergy Intermediate Swelling Verified 02/07/22 20:49 Penicillins Allergy Mild Rash Verified 02/07/22 20:49 Anistreplase [From Eminase] Allergy Unknown UNKNOWN Verified 02/07/22 20:49 fenugreek Allergy Unknown UNKNOWN Verified 02/07/22 20:49 codeine AdvReac Mild Itching Verified 02/07/22 20:49 Erythromycin Base AdvReac Mild Itching Verified 02/07/22 20:49 Nortriptyline AdvReac Mild Nausea Verified 02/07/22 20:49 promethazine AdvReac Mild Fainting Verified 02/07/22 20:49 trulicity AdvReac Intermediate Other Uncoded 12/04/21 06:40 EXAM Constitutional Vitals: Temp Pulse Resp BP Pulse Ox 96.7 F L 82 14 108/55 99 02/07/22 19:02 02/07/22 19:02 02/07/22 19:02 02/07/22 19:02 02/07/22 19:02 DATA Data Completed and Pending Labs: Labs from last 24 hours 02/07/22 02/07/22 02/07/22 17:37 15:46 15:42 WBC RBC Hgb Hct POC Hct 42.0 MCV MCH MCHC RDW Plt Count MPV Neut % (Auto) Lymph % (Auto) Campbell % (Auto) Eos % (Auto) Baso % (Auto) Lymph # (Auto) Campbell # (Auto) Eos # (Auto) Baso # (Auto) Absolute Neutrophils POC VBG pH 7.21 L POC VBG pCO2 at Temp 27.2 L POC VBG pO2 32 POC VBG HCO3 10.9 L* POC VBG Total CO2 12.0 L POC Venous O2 Sat 50.0 POC VBG Base Excess -17.0 L POC Sodium 128 L POC Potassium 4.8 POC Chloride 98 POC Total CO2 12.0 L POC BUN 33 H POC Creatinine 1.4 H POC Glucose 509 H* POC Venous Lactate 2.0 POC WB Ioniz Calcium 1.16 Magnesium Total Bilirubin Direct Bilirubin AST ALT Alkaline Phosphatase Total Protein Albumin Globulin Beta-Hydroxybutyrate TSH Urine Color Yellow Urine Appearance Hazy A Urine pH 5.0 Ur Specific [place] 1.022 Urine Protein Negative Urine Glucose (UA) >=500 A Urine Ketones 80 A Urine Occult Blood 0.03 Urine Nitrate Negative Urine Bilirubin Negative Urine Urobilinogen Negative Ur Leukocyte Esterase 250 A Urine RBC 3 Urine WBC 83 H Ur Squamous Epith Cells < 1 Urine Bacteria Few A Hyaline Casts 4 H Urine Mucus Few A Ur Culture Indicated? yes 02/07/22 02/07/22 15:41 15:41 WBC 11.2 H RBC 4.36 Hgb 13.8 Hct 39.5 POC Hct MCV 90.6 MCH 31.7 MCHC 34.9 RDW 13.3 Plt Count 211 MPV 10.5 H Neut % (Auto) 72.2 Lymph % (Auto) 21.2 Campbell % (Auto) 6.1 Eos % (Auto) 0.1 Baso % (Auto) 0.4 Lymph # (Auto) 2.38 Campbell # (Auto) 0.69 Eos # (Auto) 0.01 Baso # (Auto) 0.04 Absolute Neutrophils 8.10 H POC VBG pH POC VBG pCO2 at Temp POC VBG pO2 POC VBG HCO3 POC VBG Total CO2 POC Venous O2 Sat POC VBG Base Excess POC Sodium POC Potassium POC Chloride POC Total CO2 POC BUN POC Creatinine POC Glucose POC Venous Lactate POC WB Ioniz Calcium Magnesium 2.2 Total Bilirubin 0.7 Direct Bilirubin 0.2 AST 31 ALT 67 H Alkaline Phosphatase 140 H Total Protein 7.3 Albumin 4.4 Globulin 2.9 Beta-Hydroxybutyrate 7.29 H TSH 22.38 H Urine Color Urine Appearance Urine pH Ur Specific [place] Urine Protein Urine Glucose (UA) Urine Ketones Urine Occult Blood Urine Nitrate Urine Bilirubin Urine Urobilinogen Ur Leukocyte Esterase Urine RBC Urine WBC Ur Squamous Epith Cells Urine Bacteria Hyaline Casts Urine Mucus Ur Culture Indicated? A/P Narrative Plan of Treatment: #Diabetic ketoacidosis #Acute kidney injury secondary to diabetic ketoacidosis #Hyponatremia due to hyperglycemia #Poorly controlled insulin-dependent diabetes mellitus #Coronary artery disease, stable #Hypothyroidism #Chronic pancreatitis #Essential tremor Plan -Insulin infusion for DKA. -Follow anion gap, VBG for pH, electrolytes. -IV fluid with NS, add D5 if anion gap not closed when glucose less than 200. -Replace electrolytes as needed. -Follow renal function and urine output. -Continue home atorvastatin, duloxetine, gabapentin, levothyroxine -When DKA resolved and the patient is tolerating a diet transition to basal bolus insulin, likely will need higher doses than before admission. -Continue her home pancreatic enzyme supplements -Consistent carbohydrate diet. -PT and OT. -DVT prophylaxis: Heparin SQ -CODE STATUS: Limited -Disposition: Probably SNF or Time Spent With Patient Time: Total time spent is greater than 50% in coordination of care (as documented) at patient's floor/unit and/or counseling patient: Total time spent with greater than 50% in coordination of care (as documented) at patient's floor/unit and/or counseling patient:: 50 - 70 minutes Critical Care Time: No
[2022-02-07] MEDS: ACETAMINOPHEN 325 MG TABLET PO PRN (19:51)
[2022-02-07] MEDS ORDERED: DEXTROSE 31 GM ORAL.SUSP PO PRN (20:37)
[2022-02-07] MEDS ORDERED: DEXTROSE 50% 50 ML VIAL IV PRN (20:37)
[2022-02-07] MEDS: GABAPENTIN 300 MG CAPSULE PO SCH (21:00)
[2022-02-07] MEDS: PROPRANOLOL 10 MG TABLET PO SCH (21:00)
[2022-02-07] MEDS: LEVOFLOXACIN 750 MG/150 ML BAG IV SCH (21:00)
[2022-02-07] MEDS: 0.9 % SODIUM CHLORIDE 10 ML SYRINGE IV SCH (21:01)
[2022-02-07] MEDS: INSULIN LISPRO 1 UNIT/0.01 ML UNIT SQ SCH (21:13)
[2022-02-07] MEDS: INSULIN GLARGINE, HUMAN 1 UNIT/0.01 ML SQ SCH (21:14)
[2022-02-07] MEDS ORDERED: INSULIN REGULAR, HUMAN 1 UNIT/0.01 ML UNIT ONE ×2 (22:17→22:26)
[2022-02-07] MEDS: 0.9 % SODIUM CHLORIDE 500 ML IV SCH (22:52)
[2022-02-08] MEDS ORDERED: POTASSIUM CHLORIDE 20 MEQ TABLET PO PRN
[2022-02-08] MEDS: ACETAMINOPHEN 325 MG TABLET PO PRN ×3 (02:04→19:18)
[2022-02-08] MEDS: 0.9 % SODIUM CHLORIDE 1,000 ML IV SCH ×3 (03:49→15:42)
[2022-02-08] MEDS ORDERED: DEXTROSE 50% 50 ML SYRINGE IV ONE (05:11)
[2022-02-08] MEDS: 0.9 % SODIUM CHLORIDE 10 ML SYRINGE IV SCH ×3 (05:27→21:37)
[2022-02-08 07:07] LABS: Blood Urea Nitrogen 22 mg/dL (8-23); Calcium 8.3 mg/dL (8.6-10.4); Carbon Dioxide 16 mmol/L (22-30); Chloride 101 mmol/L (96-108); Glomerular Filtration Rate 49; Glucose 135 mg/dL (70-105)
[2022-02-08] MEDS: INSULIN LISPRO 1 UNIT/0.01 ML UNIT SQ SCH ×4 (07:22→21:36)
[2022-02-08] MEDS: PROPRANOLOL 10 MG TABLET PO SCH ×3 (07:58→21:37)
[2022-02-08] MEDS: LEVOTHYROXINE 100 MCG TABLET PO SCH (07:58)
[2022-02-08] MEDS: PANTOPRAZOLE 40 MG TABLET PO SCH (07:58)
[2022-02-08] MEDS: DULoxetine 30 MG CAPSULE PO SCH (07:58)
[2022-02-08] MEDS: GABAPENTIN 300 MG CAPSULE PO SCH ×3 (07:58→21:37)
[2022-02-08] MEDS: INSULIN GLARGINE, HUMAN 1 UNIT/0.01 ML SQ SCH ×2 (07:59→21:36)
[2022-02-08] MEDS: ENOXAPARIN 30 MG/0.3 ML SYRINGE SQ SCH (07:59)
[2022-02-08] MEDS: LIPASE PO SCH ×2 (15:42→21:00)
[2022-02-08] MEDS: AMYLASE PO SCH ×2 (15:42→21:00)
[2022-02-08] MEDS: PROTEASE PO SCH ×2 (15:42→21:00)
[2022-02-09] MEDS: 0.9 % SODIUM CHLORIDE 500 ML IV SCH ×2 (06:19→23:53)
[2022-02-09] MEDS: 0.9 % SODIUM CHLORIDE 10 ML SYRINGE IV SCH ×3 (06:20→20:41)
[2022-02-09] MEDS: INSULIN LISPRO 1 UNIT/0.01 ML UNIT SQ SCH ×5 (07:03→23:13)
[2022-02-09] MEDS: LEVOTHYROXINE 100 MCG TABLET PO SCH (08:11)
[2022-02-09] MEDS: PROPRANOLOL 10 MG TABLET PO SCH ×3 (08:11→20:41)
[2022-02-09] MEDS: DULoxetine 30 MG CAPSULE PO SCH (08:11)
[2022-02-09] MEDS: ENOXAPARIN 30 MG/0.3 ML SYRINGE SQ SCH ×2 (08:11→08:43)
[2022-02-09] MEDS: PANTOPRAZOLE 40 MG TABLET PO SCH (08:11)
[2022-02-09] MEDS: GABAPENTIN 300 MG CAPSULE PO SCH ×3 (08:11→20:41)
[2022-02-09] MEDS: INSULIN GLARGINE, HUMAN 1 UNIT/0.01 ML SQ SCH ×2 (08:23→20:40)
[2022-02-09] MEDS: LEVOFLOXACIN 750 MG/150 ML BAG IV SCH (08:30)
[2022-02-09] MEDS: LIPASE PO SCH ×3 (08:44→20:42)
[2022-02-09] MEDS: PROTEASE PO SCH ×3 (08:44→20:42)
[2022-02-09] MEDS: AMYLASE PO SCH ×3 (08:44→20:42)
[2022-02-09] MEDS: LEVOFLOXACIN 750 MG TABLET PO SCH (10:30)
[2022-02-09] MEDS: ACETAMINOPHEN 325 MG TABLET PO PRN (10:50)
--- NOTE | 2022-02-09 11:35 | Internal Med Progress Note ---
SUBJECTIVE Subjective Patient information: Note initiated : 02/08/22 at 11:31 am Service Date, if different from initiated Date:02/08/2022 Patient: Tennille Castillo 76 y/o F admitted on 02/07/22 for HYPRGLYEMIC. Chief Complaint: [] Interval history: This is a 76-year-old female with a history of type 2 diabetes had a recurrent hospital admissions for DKA, chronic pancreatitis hypothyroidism, coronary artery disease hyperlipidemia who is present to the ER with a blood glucose of more than 500 and tiredness. Patient continued having chronic abdominal pain no significant worsening she also complaining of some lower abdominal pain and her urine analysis was positive for UTI and started on ceftriaxone in the ED patient had a recent admissions for the same and was supposed to be discharged to a rehab facility when finally patient ended up choosing going home and she failed home multiple times. ED physician seriously doubt her insulin management at home CODE STATUS discussed with the patient and she want to be limited intervention which includes CPR vasopressors defibrillation resynchronization shock as indicated but no intubation Review of systems Constitutional: Positive for fatigue and chills, no fever Eyes: no vision changes or pain Cardiovascular: no chest pain, no palpitations Respiratory: no cough or dyspnea Gastrointestinal: Positive for nausea and abdominal discomfort. Genitourinary: no dysuria or difficulty voiding Musculoskeletal: no arthralgia or myalgia Integumentary: no skin lesion or wound Neurological: no focal weakness or numbness Psychiatric: no anxiety or depression Physical exam Head: Small bruise over left orbit. Eyes: normal appearance, no scleral icterus. Neck: full ROM Respiratory: no respiratory distress. Cardiovascular: normal rate and rhythm, S1, S2. GI/Abdominal: soft, nontender, no guarding. Extremities: full range of motion, nontender. Neurological: CN II-XII intact, intact motor, intact sensation. Psychiatric: normal mood. Skin: warm, normal color 02/08 Patient is feeling better Blood sugar is better controlled she had an episode of hypoglycemia I seriously doubt her insulin management at home she lives alone and appears to be weak and having abdominal pain from chronic pancreatitis We will continue titrating her long-acting insulin Constitutional Vitals: Vital Signs Temp Pulse Resp BP Pulse Ox 97.0 F 61 18 107/58 98 02/09/22 08:01 02/08/22 20:01 02/09/22 08:01 02/09/22 08:40 02/09/22 08:01 Period Temp Pulse Resp BP Sys/Rosario Pulse Ox Last 24 Hr 96.8 F-97.4 F 57-63 14-24 98-130/52-81 95-99 Intake and Output 02/08/22 02/09/22 02/09/22 21:59 05:59 13:59 Intake Total 1450 1300 33 Output Total 150 675 Balance 1300 625 33 Weight 72.802 kg Intake & Output: Intake & Output 02/08/22 02/09/22 02/09/22 21:59 05:59 13:59 Intake Total 1450 1300 33 Output Total 150 675 Balance 1300 625 33 Weight 72.802 kg Intake: IV 1000 1000 33 Sodium Chloride 0.9% 1,000 ml @ 1000 1000 100 mls/hr IV .Q10H PEG Rx#: [id number] Sodium Chloride 0.9% 500 ml @ 0 20 mls/hr IV .Q24H PEG Rx#: [id number] HumuLIN R 50 UNIT In Sodium 0 Chloride 0.9% 99.5 ml @ 7.2 UNIT/HR 14.4 mls/hr IV DUR PEG Rx#:[id number] Oral 450 300 Output: Void Amount 150 675 Other: Meal Dinner Percent of Meal Consumed 100% Urine Appearance Clear Urine Color Dark Yellow Dark Yellow Stool Size Moderate Large Moderate Stool Color Brown Brown Brown Blood Tinged Stool Consistency Formed Soft Soft # Bowel Movements 1 1 OBJ DATA Labs CBC & Chem 7: 02/07/22 15:41 02/08/22 05:10 Labs: Abnormal Lab Results 02/08/22 02/07/22 02/07/22 05:10 17:37 15:46 WBC MPV Absolute Neutrophils POC VBG pH POC VBG pCO2 at Temp POC VBG HCO3 POC VBG Total CO2 POC VBG Base Excess POC Sodium 128 L Sodium 130 L Carbon Dioxide 16 L POC Total CO2 12.0 L POC BUN 33 H POC Creatinine 1.4 H Glucose 135 H POC Glucose 509 H* Calcium 8.3 L ALT Alkaline Phosphatase Beta-Hydroxybutyrate TSH Urine Appearance Hazy A Urine Glucose (UA) >=500 A Urine Ketones 80 A Ur Leukocyte Esterase 250 A Urine WBC 83 H Urine Bacteria Few A Hyaline Casts 4 H Urine Mucus Few A 02/07/22 02/07/22 02/07/22 15:42 15:41 15:41 WBC 11.2 H MPV 10.5 H Absolute Neutrophils 8.10 H POC VBG pH 7.21 L POC VBG pCO2 at Temp 27.2 L POC VBG HCO3 10.9 L* POC VBG Total CO2 12.0 L POC VBG Base Excess -17.0 L POC Sodium Sodium Carbon Dioxide POC Total CO2 POC BUN POC Creatinine Glucose POC Glucose Calcium ALT 67 H Alkaline Phosphatase 140 H Beta-Hydroxybutyrate 7.29 H TSH 22.38 H Urine Appearance Urine Glucose (UA) Urine Ketones Ur Leukocyte Esterase Urine WBC Urine Bacteria Hyaline Casts Urine Mucus Meds: Medications Acetaminophen (Acetaminophen 325 Mg Tablet) 650 mg PO Q4-6HP PRN; Protocol PRN Reason: Per Pain Protocol/Fever > 101 Last Admin: 02/09/22 10:50 Dose: 650 mg Documented by: Albuterol/Ipratropium (Ipratropium/Albuterol 3 Ml Ampul.Neb) 3 ml NEB Q4HRT PRN PRN Reason: Wheezing Bisacodyl (Bisacodyl 10 Mg Supp.Rect) 10 mg OK Q2-3DAYS PRN PRN Reason: Constipation Dextrose (Dextrose 50% 50 Ml Vial) 0 ml IV UD PRN PRN Reason: Per Sliding Scale Last Admin: 02/08/22 05:28 Dose: 25 ml Documented by: Diagnostic Test (Pha) (Accu-Chek 1 Each Strip) 1 each FS ACHS [facility] Last Admin: 02/09/22 11:24 Dose: 1 each Documented by: Duloxetine HCl (Duloxetine 30 Mg Capsule) 30 mg PO QDAY [facility] Last Admin: 02/09/22 08:11 Dose: 30 mg Documented by: Enoxaparin Sodium (Enoxaparin 30 Mg/0.3 Ml Syringe) 30 mg SQ DAILY [facility] Last Admin: 02/09/22 08:43 Dose: Not Given Documented by: Gabapentin (Gabapentin 300 Mg Capsule) 300 mg PO TID [facility] Last Admin: 02/09/22 08:11 Dose: 300 mg Documented by: Glucose (Dextrose 31 Gm Oral.Susp) 15 gm PO PRN PRN PRN Reason: Hypoglycemia Insulin Human Regular 50 unit/ (Sodium Chloride) 100.5 mls @ 2.93 mls/hr IV DUR [facility]; Protocol Sodium Chloride (Sodium Chloride 0.9%) 500 mls @ 20 mls/hr IV .Q24H [facility] Last Admin: 02/09/22 06:19 Dose: Not Given Documented by: Insulin Glargine (Insulin Glargine, Human 1 Unit/0.01 Ml) 30 unit SQ BID [facility] Last Admin: 02/09/22 08:23 Dose: 30 units Documented by: Insulin Human Lispro (Insulin Lispro 1 Unit/0.01 Ml Unit) 0 unit SQ ACHS [facility]; Protocol Last Admin: 02/09/22 07:03 Dose: Not Given Documented by: Levofloxacin (Levofloxacin 750 Mg Tablet) 750 mg PO Q48H [facility] Last Admin: 02/09/22 10:30 Dose: 750 mg Documented by: Levothyroxine Sodium (Levothyroxine 100 Mcg Tablet) 100 mcg PO ACB [facility] Last Admin: 02/09/22 08:11 Dose: 100 mcg Documented by: Lorazepam (Lorazepam 2 Mg/Ml Vial) 0.5 mg IV Q2HP PRN PRN Reason: ANXIETY/SEDATION Nitroglycerin (Nitroglycerin 0.4 Mg Tab.Subl) 0.4 mg SL Q5M PRN PRN Reason: Chest Pain Ondansetron HCl (Ondansetron 4 Mg/2 Ml Vial) 4 mg IV Q4-6HP PRN; Protocol PRN Reason: Nausea And Vomiting Pantoprazole Sodium (Pantoprazole 40 Mg Tablet) 40 mg PO QAMAC [facility] Last Admin: 02/09/22 08:11 Dose: 40 mg Documented by: Lipase-Protease- Amylase [Zenpep] 40, 000-126,000-168,000 Unit Cap 1 dose PO TID [facility] Last Admin: 02/09/22 08:44 Dose: Not Given Documented by: Potassium Chloride (Potassium Chloride 20 Meq Tablet) 40 meq PO ONCE PRN PRN Reason: Hypokalemia <3.5 Promethazine HCl (Promethazine 25 Mg/Ml Vial) 12.5 mg IV Q4-6HP PRN; Protocol PRN Reason: Nausea And Vomiting Propranolol HCl (Propranolol 10 Mg Tablet) 10 mg PO TID [facility] Last Admin: 02/09/22 08:11 Dose: 10 mg Documented by: Senna (Sennosides 1 Tablet) 2 tab PO HSP PRN PRN Reason: Constipation Sodium Chloride (0.9 % Sodium Chloride 10 Ml Syringe) 10 ml IV Q8 [facility] Last Admin: 02/09/22 06:20 Dose: 10 ml Documented by: A/P Narrative Plan of Treatment: #Diabetic ketoacidosis #Acute kidney injury secondary to diabetic ketoacidosis-improved #Hyponatremia due to hyperglycemia #Poorly controlled insulin-dependent diabetes mellitus #Coronary artery disease, stable #Hypothyroidism #Chronic pancreatitis #Essential tremor Plan -Insulin infusion for DKA discontinued and started on long-acting insulin and sliding scale -Follow adced encourage her oral intake -Replace electrolytes as needed. -Follow renal function and urine output. -Continue home atorvastatin, duloxetine, gabapentin, levothyroxine -Started home Lantus and sliding scale -Continue her home pancreatic enzyme supplements -Consistent carbohydrate diet. -PT and OT. -DVT prophylaxis: Heparin SQ -CODE STATUS: Limited -Disposition: Probably SNF or Time Spent With Patient Time: Total time spent is greater than 50% in coordination of care (as documented) at patient's floor/unit and/or counseling patient:
--- NOTE | 2022-02-09 11:38 | Internal Med Progress Note ---
SUBJECTIVE Subjective Patient information: Note initiated : 02/09/22 at 11:37 am Service Date, if different from initiated Date: [] Patient: Tennille Castillo 76 y/o F admitted on 02/07/22 for HYPRGLYEMIC. Chief Complaint: [] Interval history: 76-year-old female with a history of type 2 diabetes had a recurrent hospital admissions for DKA, chronic pancreatitis hypothyroidism, coronary artery disease hyperlipidemia who is present to the ER with a blood glucose of more than 500 and tiredness. Patient continued having chronic abdominal pain no significant worsening she also complaining of some lower abdominal pain and her urine analysis was positive for UTI and started on ceftriaxone in the ED patient had a recent admissions for the same and was supposed to be discharged to a rehab facility when finally patient ended up choosing going home and she failed home multiple times. ED physician seriously doubt her insulin management at home CODE STATUS discussed with the patient and she want to be limited intervention which includes CPR vasopressors defibrillation resynchronization shock as indicated but no intubation Review of systems Constitutional: Positive for fatigue and chills, no fever Eyes: no vision changes or pain Cardiovascular: no chest pain, no palpitations Respiratory: no cough or dyspnea Gastrointestinal: no nausea and stil have abdominal discomfort. Genitourinary: no dysuria or difficulty voiding Musculoskeletal: no arthralgia or myalgia Integumentary: no skin lesion or wound Neurological: no focal weakness or numbness Psychiatric: no anxiety or depression Physical exam Head: Small bruise over left orbit. Eyes: normal appearance, no scleral icterus. Neck: full ROM Respiratory: no respiratory distress. Cardiovascular: normal rate and rhythm, S1, S2. GI/Abdominal: soft, nontender, no guarding. Extremities: full range of motion, nontender. Neurological: CN II-XII intact, intact motor, intact sensation. Psychiatric: normal mood. Skin: warm, normal color 02/08 Patient is feeling better Blood sugar is better controlled she had an episode of hypoglycemia I seriously doubt her insulin management at home she lives alone and appears to be weak and having abdominal pain from chronic pancreatitis We will continue titrating her long-acting insulin 02/09 Patient appears to be very weak Not participating much with the physical therapy Hypoglycemia improved Discussed with case management about probably needing placement in [place] discussed with the patient she refused to go to rehab and continued to fail at home and failing insulin management Constitutional Vitals: Vital Signs Temp Pulse Resp BP Pulse Ox 97.0 F 61 18 107/58 98 02/09/22 08:01 02/08/22 20:01 02/09/22 08:01 02/09/22 08:40 02/09/22 08:01 Period Temp Pulse Resp BP Sys/Rosario Pulse Ox Last 24 Hr 96.8 F-97.4 F 57-63 14-24 98-130/52-81 95-99 Intake and Output 02/08/22 02/09/22 02/09/22 21:59 05:59 13:59 Intake Total 1450 1300 33 Output Total 150 675 Balance 1300 625 33 Weight 72.802 kg Intake & Output: Intake & Output 02/08/22 02/09/22 02/09/22 21:59 05:59 13:59 Intake Total 1450 1300 33 Output Total 150 675 Balance 1300 625 33 Weight 72.802 kg Intake: IV 1000 1000 33 Sodium Chloride 0.9% 1,000 ml @ 1000 1000 100 mls/hr IV .Q10H PEG Rx#: [id number] Sodium Chloride 0.9% 500 ml @ 0 20 mls/hr IV .Q24H PEG Rx#: [id number] HumuLIN R 50 UNIT In Sodium 0 Chloride 0.9% 99.5 ml @ 7.2 UNIT/HR 14.4 mls/hr IV DUR PEG Rx#:[id number] Oral 450 300 Output: Void Amount 150 675 Other: Meal Dinner Percent of Meal Consumed 100% Urine Appearance Clear Urine Color Dark Yellow Dark Yellow Stool Size Moderate Large Moderate Stool Color Brown Brown Brown Blood Tinged Stool Consistency Formed Soft Soft # Bowel Movements 1 1 OBJ DATA Labs CBC & Chem 7: 02/07/22 15:41 02/08/22 05:10 Labs: Abnormal Lab Results 02/08/22 02/07/22 02/07/22 05:10 17:37 15:46 WBC MPV Absolute Neutrophils POC VBG pH POC VBG pCO2 at Temp POC VBG HCO3 POC VBG Total CO2 POC VBG Base Excess POC Sodium 128 L Sodium 130 L Carbon Dioxide 16 L POC Total CO2 12.0 L POC BUN 33 H POC Creatinine 1.4 H Glucose 135 H POC Glucose 509 H* Calcium 8.3 L ALT Alkaline Phosphatase Beta-Hydroxybutyrate TSH Urine Appearance Hazy A Urine Glucose (UA) >=500 A Urine Ketones 80 A Ur Leukocyte Esterase 250 A Urine WBC 83 H Urine Bacteria Few A Hyaline Casts 4 H Urine Mucus Few A 02/07/22 02/07/22 02/07/22 15:42 15:41 15:41 WBC 11.2 H MPV 10.5 H Absolute Neutrophils 8.10 H POC VBG pH 7.21 L POC VBG pCO2 at Temp 27.2 L POC VBG HCO3 10.9 L* POC VBG Total CO2 12.0 L POC VBG Base Excess -17.0 L POC Sodium Sodium Carbon Dioxide POC Total CO2 POC BUN POC Creatinine Glucose POC Glucose Calcium ALT 67 H Alkaline Phosphatase 140 H Beta-Hydroxybutyrate 7.29 H TSH 22.38 H Urine Appearance Urine Glucose (UA) Urine Ketones Ur Leukocyte Esterase Urine WBC Urine Bacteria Hyaline Casts Urine Mucus Meds: Medications Acetaminophen (Acetaminophen 325 Mg Tablet) 650 mg PO Q4-6HP PRN; Protocol PRN Reason: Per Pain Protocol/Fever > 101 Last Admin: 02/09/22 10:50 Dose: 650 mg Documented by: Albuterol/Ipratropium (Ipratropium/Albuterol 3 Ml Ampul.Neb) 3 ml NEB Q4HRT PRN PRN Reason: Wheezing Bisacodyl (Bisacodyl 10 Mg Supp.Rect) 10 mg RI Q2-3DAYS PRN PRN Reason: Constipation Dextrose (Dextrose 50% 50 Ml Vial) 0 ml IV UD PRN PRN Reason: Per Sliding Scale Last Admin: 02/08/22 05:28 Dose: 25 ml Documented by: Diagnostic Test (Pha) (Accu-Chek 1 Each Strip) 1 each FS ACHS [facility] Last Admin: 02/09/22 11:24 Dose: 1 each Documented by: Duloxetine HCl (Duloxetine 30 Mg Capsule) 30 mg PO QDAY [facility] Last Admin: 02/09/22 08:11 Dose: 30 mg Documented by: Enoxaparin Sodium (Enoxaparin 30 Mg/0.3 Ml Syringe) 30 mg SQ DAILY [facility] Last Admin: 02/09/22 08:43 Dose: Not Given Documented by: Gabapentin (Gabapentin 300 Mg Capsule) 300 mg PO TID [facility] Last Admin: 02/09/22 08:11 Dose: 300 mg Documented by: Glucose (Dextrose 31 Gm Oral.Susp) 15 gm PO PRN PRN PRN Reason: Hypoglycemia Insulin Human Regular 50 unit/ (Sodium Chloride) 100.5 mls @ 2.93 mls/hr IV DUR [facility]; Protocol Sodium Chloride (Sodium Chloride 0.9%) 500 mls @ 20 mls/hr IV .Q24H [facility] Last Admin: 02/09/22 06:19 Dose: Not Given Documented by: Insulin Glargine (Insulin Glargine, Human 1 Unit/0.01 Ml) 30 unit SQ BID [facility] Last Admin: 02/09/22 08:23 Dose: 30 units Documented by: Insulin Human Lispro (Insulin Lispro 1 Unit/0.01 Ml Unit) 0 unit SQ ACHS [facility]; Protocol Last Admin: 02/09/22 07:03 Dose: Not Given Documented by: Levofloxacin (Levofloxacin 750 Mg Tablet) 750 mg PO Q48H [facility] Last Admin: 02/09/22 10:30 Dose: 750 mg Documented by: Levothyroxine Sodium (Levothyroxine 100 Mcg Tablet) 100 mcg PO ACB [facility] Last Admin: 02/09/22 08:11 Dose: 100 mcg Documented by: Lorazepam (Lorazepam 2 Mg/Ml Vial) 0.5 mg IV Q2HP PRN PRN Reason: ANXIETY/SEDATION Nitroglycerin (Nitroglycerin 0.4 Mg Tab.Subl) 0.4 mg SL Q5M PRN PRN Reason: Chest Pain Ondansetron HCl (Ondansetron 4 Mg/2 Ml Vial) 4 mg IV Q4-6HP PRN; Protocol PRN Reason: Nausea And Vomiting Pantoprazole Sodium (Pantoprazole 40 Mg Tablet) 40 mg PO QAMAC [facility] Last Admin: 02/09/22 08:11 Dose: 40 mg Documented by: Lipase-Protease- Amylase [Zenpep] 40, 000-126,000-168,000 Unit Cap 1 dose PO TID [facility] Last Admin: 02/09/22 08:44 Dose: Not Given Documented by: Potassium Chloride (Potassium Chloride 20 Meq Tablet) 40 meq PO ONCE PRN PRN Reason: Hypokalemia <3.5 Promethazine HCl (Promethazine 25 Mg/Ml Vial) 12.5 mg IV Q4-6HP PRN; Protocol PRN Reason: Nausea And Vomiting Propranolol HCl (Propranolol 10 Mg Tablet) 10 mg PO TID [facility] Last Admin: 02/09/22 08:11 Dose: 10 mg Documented by: Senna (Sennosides 1 Tablet) 2 tab PO HSP PRN PRN Reason: Constipation Sodium Chloride (0.9 % Sodium Chloride 10 Ml Syringe) 10 ml IV Q8 PEG Last Admin: 02/09/22 06:20 Dose: 10 ml Documented by: A/P Narrative Plan of Treatment: #Diabetic ketoacidosis #Acute kidney injury secondary to diabetic ketoacidosis-improved #Hyponatremia due to hyperglycemia #Poorly controlled insulin-dependent diabetes mellitus #Coronary artery disease, stable #Hypothyroidism #Chronic pancreatitis #Essential tremor Plan -Insulin infusion for DKA discontinued and started on long-acting insulin and sliding scale -Follow adced encourage her oral intake -Replace electrolytes as needed -Follow renal function and urine output. -Continue home atorvastatin, duloxetine, gabapentin, levothyroxine -Started home Lantus and sliding scale -Continue her home pancreatic enzyme supplements -Consistent carbohydrate diet. -PT and OT. -DVT prophylaxis: Heparin SQ -CODE STATUS: Limited -Disposition: Probably SNF or Time Spent With Patient Time: Total time spent is greater than 50% in coordination of care (as documented) at patient's floor/unit and/or counseling patient:
[2022-02-10] MEDS: LORazepam 2 MG/ML VIAL IV PRN ×2 (00:24→10:54)
[2022-02-10] MEDS: INSULIN LISPRO 1 UNIT/0.01 ML UNIT SQ SCH ×5 (01:28→20:19)
[2022-02-10] MEDS: 0.9 % SODIUM CHLORIDE 10 ML SYRINGE IV SCH ×3 (05:42→21:05)
[2022-02-10] MEDS: LEVOTHYROXINE 100 MCG TABLET PO SCH (07:36)
[2022-02-10] MEDS: PANTOPRAZOLE 40 MG TABLET PO SCH (07:36)
[2022-02-10] MEDS: GABAPENTIN 300 MG CAPSULE PO SCH ×3 (08:26→20:05)
[2022-02-10] MEDS: PROPRANOLOL 10 MG TABLET PO SCH ×3 (08:26→20:05)
[2022-02-10] MEDS: DULoxetine 30 MG CAPSULE PO SCH (08:26)
[2022-02-10] MEDS: INSULIN GLARGINE, HUMAN 1 UNIT/0.01 ML SQ SCH ×2 (08:26→20:19)
[2022-02-10] MEDS: AMYLASE PO SCH ×3 (08:27→20:07)
[2022-02-10] MEDS: ENOXAPARIN 30 MG/0.3 ML SYRINGE SQ SCH (08:27)
[2022-02-10] MEDS: PROTEASE PO SCH ×3 (08:27→20:07)
[2022-02-10] MEDS: LIPASE PO SCH ×3 (08:27→20:07)
[2022-02-10] MEDS: ACETAMINOPHEN 325 MG TABLET PO PRN ×2 (09:58→20:05)
--- NOTE | 2022-02-10 15:03 | Internal Med Progress Note ---
SUBJECTIVE Subjective Patient information: Note initiated : 02/10/22 at 3:03 pm Service Date, if different from initiated Date: [] Patient: Tennille Castillo 76 y/o F admitted on 02/07/22 for HYPRGLYEMIC. Chief Complaint: [] Interval history: 76-year-old female with a history of type 2 diabetes had a recurrent hospital admissions for DKA, chronic pancreatitis hypothyroidism, coronary artery disease hyperlipidemia who is present to the ER with a blood glucose of more than 500 and tiredness. Patient continued having chronic abdominal pain no significant worsening she also complaining of some lower abdominal pain and her urine analysis was positive for UTI and started on ceftriaxone in the ED patient had a recent admissions for the same and was supposed to be discharged to a rehab facility when finally patient ended up choosing going home and she failed home multiple times. ED physician seriously doubt her insulin management at home CODE STATUS discussed with the patient and she want to be limited intervention which includes CPR vasopressors defibrillation resynchronization shock as indicated but no intubation Review of systems Constitutional: Positive for fatigue and chills, no fever Eyes: no vision changes or pain Cardiovascular: no chest pain, no palpitations Respiratory: no cough or dyspnea Gastrointestinal: no nausea and stil have abdominal discomfort. Genitourinary: no dysuria or difficulty voiding Musculoskeletal: no arthralgia or myalgia Integumentary: no skin lesion or wound Neurological: no focal weakness or numbness Psychiatric: no anxiety or depression Physical exam Head: Small bruise over left orbit. Eyes: normal appearance, no scleral icterus. Neck: full ROM Respiratory: no respiratory distress. Cardiovascular: normal rate and rhythm, S1, S2. GI/Abdominal: soft, nontender, no guarding. Extremities: full range of motion, nontender. Neurological: CN II-XII intact, intact motor, intact sensation. Psychiatric: normal mood. Skin: warm, normal color 02/08 Patient is feeling better Blood sugar is better controlled she had an episode of hypoglycemia I seriously doubt her insulin management at home she lives alone and appears to be weak and having abdominal pain from chronic pancreatitis We will continue titrating her long-acting insulin 02/09 Patient appears to be very weak Not participating much with the physical therapy Hypoglycemia improved Discussed with case management about probably needing placement in [place] discussed with the patient she refused to go to rehab and continued to fail at home and failing insulin management 05/13 Patient blood sugar is better controlled Patient was complaining of rectal spasm she takes hyoscyamine at home and continued Patient is willing to go to subacute rehab encourage her to work with physical therapy Constitutional Vitals: Vital Signs Temp Pulse Resp BP Pulse Ox 96.9 F L 63 16 142/70 100 02/10/22 11:54 02/10/22 11:54 02/10/22 11:54 02/10/22 11:54 02/10/22 11:54 Period Temp Pulse Resp BP Sys/Rosario Pulse Ox Last 24 Hr 96.9 F-97.2 F 63-69 16-20 122-149/63-74 93-100 Intake and Output 02/10/22 02/10/22 02/10/22 05:59 13:59 21:59 Intake Total 480 480 480 Balance 480 480 480 Weight 72.802 kg Intake & Output: Intake & Output 02/10/22 02/10/22 02/10/22 05:59 13:59 21:59 Intake Total 480 480 480 Balance 480 480 480 Weight 72.802 kg Intake: Oral 480 480 480 Other: Meal Breakfast Lunch Percent of Meal Consumed 100% 100% Feeding Ability Independent Independent Stool Size Moderate Stool Consistency Soft # Voids 3 OBJ DATA Labs CBC & Chem 7: 02/07/22 15:41 02/08/22 05:10 Labs: Abnormal Lab Results 02/08/22 02/07/22 02/07/22 05:10 17:37 15:46 WBC MPV Absolute Neutrophils POC VBG pH POC VBG pCO2 at Temp POC VBG HCO3 POC VBG Total CO2 POC VBG Base Excess POC Sodium 128 L Sodium 130 L Carbon Dioxide 16 L POC Total CO2 12.0 L POC BUN 33 H POC Creatinine 1.4 H Glucose 135 H POC Glucose 509 H* Calcium 8.3 L ALT Alkaline Phosphatase Beta-Hydroxybutyrate TSH Urine Appearance Hazy A Urine Glucose (UA) >=500 A Urine Ketones 80 A Ur Leukocyte Esterase 250 A Urine WBC 83 H Urine Bacteria Few A Hyaline Casts 4 H Urine Mucus Few A 02/07/22 02/07/22 02/07/22 15:42 15:41 15:41 WBC 11.2 H MPV 10.5 H Absolute Neutrophils 8.10 H POC VBG pH 7.21 L POC VBG pCO2 at Temp 27.2 L POC VBG HCO3 10.9 L* POC VBG Total CO2 12.0 L POC VBG Base Excess -17.0 L POC Sodium Sodium Carbon Dioxide POC Total CO2 POC BUN POC Creatinine Glucose POC Glucose Calcium ALT 67 H Alkaline Phosphatase 140 H Beta-Hydroxybutyrate 7.29 H TSH 22.38 H Urine Appearance Urine Glucose (UA) Urine Ketones Ur Leukocyte Esterase Urine WBC Urine Bacteria Hyaline Casts Urine Mucus Meds: Medications Acetaminophen (Acetaminophen 325 Mg Tablet) 650 mg PO Q4-6HP PRN; Protocol PRN Reason: Per Pain Protocol/Fever > 101 Last Admin: 02/10/22 09:58 Dose: 650 mg Documented by: Albuterol/Ipratropium (Ipratropium/Albuterol 3 Ml Ampul.Neb) 3 ml NEB Q4HRT PRN PRN Reason: Wheezing Bisacodyl (Bisacodyl 10 Mg Supp.Rect) 10 mg [place] Q2-3DAYS PRN PRN Reason: Constipation Dextrose (Dextrose 50% 50 Ml Vial) 0 ml IV UD PRN PRN Reason: Per Sliding Scale Last Admin: 02/08/22 05:28 Dose: 25 ml Documented by: Diagnostic Test (Pha) (Accu-Chek 1 Each Strip) 1 each FS ACHS [facility] Last Admin: 02/10/22 11:12 Dose: 1 each Documented by: Duloxetine HCl (Duloxetine 30 Mg Capsule) 30 mg PO QDAY [facility] Last Admin: 02/10/22 08:26 Dose: 30 mg Documented by: Enoxaparin Sodium (Enoxaparin 30 Mg/0.3 Ml Syringe) 30 mg SQ DAILY [facility] Last Admin: 02/10/22 08:27 Dose: Not Given Documented by: Gabapentin (Gabapentin 300 Mg Capsule) 300 mg PO TID [facility] Last Admin: 02/10/22 14:34 Dose: 300 mg Documented by: Glucose (Dextrose 31 Gm Oral.Susp) 15 gm PO PRN PRN PRN Reason: Hypoglycemia Hyoscyamine (Hyoscyamine Sulfate 0.125 Mg Tablet) 0.125 mg PO Q12HP PRN PRN Reason: Abdominal Discomfort Insulin Human Regular 50 unit/ (Sodium Chloride) 100.5 mls @ 2.93 mls/hr IV DUR PEG; Protocol Sodium Chloride (Sodium Chloride 0.9%) 500 mls @ 20 mls/hr IV .Q24H [facility] Last Admin: 02/09/22 23:53 Dose: Not Given Documented by: Insulin Glargine (Insulin Glargine, Human 1 Unit/0.01 Ml) 30 unit SQ BID [facility] Last Admin: 02/10/22 08:26 Dose: 30 units Documented by: Insulin Human Lispro (Insulin Lispro 1 Unit/0.01 Ml Unit) 0 unit SQ ACHS [facility]; P rotocol Last Admin: 02/10/22 11:28 Dose: 8 units Documented by: Levofloxacin (Levofloxacin 750 Mg Tablet) 750 mg PO Q48H [facility] Last Admin: 02/09/22 10:30 Dose: 750 mg Documented by: Levothyroxine Sodium (Levothyroxine 100 Mcg Tablet) 100 mcg PO ACB [facility] Last Admin: 02/10/22 07:36 Dose: 100 mcg Documented by: Lorazepam (Lorazepam 2 Mg/Ml Vial) 0.5 mg IV Q2HP PRN PRN Reason: ANXIETY/SEDATION Last Admin: 02/10/22 10:54 Dose: 0.5 mg Documented by: Nitroglycerin (Nitroglycerin 0.4 Mg Tab.Subl) 0.4 mg SL Q5M PRN PRN Reason: Chest Pain Ondansetron HCl (Ondansetron 4 Mg/2 Ml Vial) 4 mg IV Q4-6HP PRN; Protocol PRN Reason: Nausea And Vomiting Pantoprazole Sodium (Pantoprazole 40 Mg Tablet) 40 mg PO QAMAC [facility] Last Admin: 02/10/22 07:36 Dose: 40 mg Documented by: Lipase-Protease- Amylase [Zenpep] 40, 000-126,000-168,000 Unit Cap 1 dose PO TID [facility] Last Admin: 02/10/22 08:27 Dose: Not Given Documented by: Potassium Chloride (Potassium Chloride 20 Meq Tablet) 40 meq PO ONCE PRN PRN Reason: Hypokalemia <3.5 Promethazine HCl (Promethazine 25 Mg/Ml Vial) 12.5 mg IV Q4-6HP PRN; Protocol PRN Reason: Nausea And Vomiting Propranolol HCl (Propranolol 10 Mg Tablet) 10 mg PO TID [facility] Last Admin: 02/10/22 14:34 Dose: 10 mg Documented by: Senna (Sennosides 1 Tablet) 2 tab PO HSP PRN PRN Reason: Constipation Sodium Chloride (0.9 % Sodium Chloride 10 Ml Syringe) 10 ml IV Q8 [facility] Last Admin: 02/10/22 13:44 Dose: Not Given Documented by: A/P Narrative Plan of Treatment: #Diabetic ketoacidosis #Acute kidney injury secondary to diabetic ketoacidosis-improved #Hyponatremia due to hyperglycemia #Poorly controlled insulin-dependent diabetes mellitus #Coronary artery disease, stable #Hypothyroidism #Chronic pancreatitis #Essential tremor Plan -Insulin infusion for DKA discontinued and started on long-acting insulin and sliding scale -Follow adced encourage her oral intake -Replace electrolytes as needed -Follow renal function and urine output. -Continue home atorvastatin, duloxetine, gabapentin, levothyroxine -Started home Lantus and sliding scale -Continue her home pancreatic enzyme supplements -Consistent carbohydrate diet. -PT and OT. -DVT prophylaxis: Heparin SQ -CODE STATUS: Limited -Disposition: Probably SNF or Time Spent With Patient Time: Total time spent is greater than 50% in coordination of care (as documented) at patient's floor/unit and/or counseling patient:
[2022-02-10] MEDS: HYOSCYAMINE SULFATE 0.125 MG TABLET PO PRN (15:04)
[2022-02-10] MEDS: QUEtiapine 25 MG TABLET PO PRN (22:12)
[2022-02-10] MEDS: MELATONIN 3 MG TABLET PO PRN (22:12)
[2022-02-10] MEDS ORDERED: QUEtiapine 25 MG TABLET ONE (22:19)
[2022-02-10] MEDS ORDERED: MELATONIN 3 MG TABLET PO ONE (22:19)
[2022-02-11] MEDS: 0.9 % SODIUM CHLORIDE 10 ML SYRINGE IV SCH ×3 (04:29→21:49)
[2022-02-11] MEDS: INSULIN LISPRO 1 UNIT/0.01 ML UNIT SQ SCH ×4 (07:23→20:56)
[2022-02-11] MEDS: PANTOPRAZOLE 40 MG TABLET PO SCH (07:28)
[2022-02-11] MEDS: LEVOTHYROXINE 100 MCG TABLET PO SCH (07:28)
[2022-02-11] MEDS: DULoxetine 30 MG CAPSULE PO SCH (08:13)
[2022-02-11] MEDS: GABAPENTIN 300 MG CAPSULE PO SCH ×3 (08:13→20:49)
[2022-02-11] MEDS: PROPRANOLOL 10 MG TABLET PO SCH ×3 (08:13→20:49)
[2022-02-11] MEDS: PROTEASE PO SCH ×3 (08:14→16:30)
[2022-02-11] MEDS: LIPASE PO SCH ×3 (08:14→16:30)
[2022-02-11] MEDS: INSULIN GLARGINE, HUMAN 1 UNIT/0.01 ML SQ SCH ×2 (08:14→20:48)
[2022-02-11] MEDS: AMYLASE PO SCH ×3 (08:14→16:30)
[2022-02-11] MEDS: ACETAMINOPHEN 325 MG TABLET PO PRN (08:18)
[2022-02-11] MEDS: ENOXAPARIN 30 MG/0.3 ML SYRINGE SQ SCH (08:28)
[2022-02-11] MEDS: LEVOFLOXACIN 750 MG TABLET PO SCH (08:34)
[2022-02-11] MEDS: HYOSCYAMINE SULFATE 0.125 MG TABLET PO PRN (08:54)
--- NOTE | 2022-02-11 13:08 | Internal Med Progress Note ---
SUBJECTIVE Subjective Patient information: Note initiated : 02/11/22 at 1:07 pm Service Date, if different from initiated Date: [] Patient: Tennille Castillo 76 y/o F admitted on 02/07/22 for HYPRGLYEMIC. Chief Complaint: [] Interval history: 76-year-old female with a history of type 2 diabetes had a recurrent hospital admissions for DKA, chronic pancreatitis hypothyroidism, coronary artery disease hyperlipidemia who is present to the ER with a blood glucose of more than 500 and tiredness. Patient continued having chronic abdominal pain no significant worsening she also complaining of some lower abdominal pain and her urine analysis was positive for UTI and started on ceftriaxone in the ED patient had a recent admissions for the same and was supposed to be discharged to a rehab facility when finally patient ended up choosing going home and she failed home multiple times. ED physician seriously doubt her insulin management at home CODE STATUS discussed with the patient and she want to be limited intervention which includes CPR vasopressors defibrillation resynchronization shock as indicated but no intubation Review of systems Constitutional: Positive for fatigue and chills, no fever Eyes: no vision changes or pain Cardiovascular: no chest pain, no palpitations Respiratory: no cough or dyspnea Gastrointestinal: no nausea and stil have abdominal discomfort. Genitourinary: no dysuria or difficulty voiding Musculoskeletal: no arthralgia or myalgia Integumentary: no skin lesion or wound Neurological: no focal weakness or numbness Psychiatric: no anxiety or depression Physical exam Head: Small bruise over left orbit. Eyes: normal appearance, no scleral icterus. Neck: full ROM Respiratory: no respiratory distress. Cardiovascular: normal rate and rhythm, S1, S2. GI/Abdominal: soft, nontender, no guarding. Extremities: full range of motion, nontender. Neurological: CN II-XII intact, intact motor, intact sensation. Psychiatric: normal mood. Skin: warm, normal color 02/08 Patient is feeling better Blood sugar is better controlled she had an episode of hypoglycemia I seriously doubt her insulin management at home she lives alone and appears to be weak and having abdominal pain from chronic pancreatitis We will continue titrating her long-acting insulin 02/09 Patient appears to be very weak Not participating much with the physical therapy Hypoglycemia improved Discussed with case management about probably needing placement in [place] discussed with the patient she refused to go to rehab and continued to fail at home and failing insulin management 05/13 Patient blood sugar is better controlled Patient was complaining of rectal spasm she takes hyoscyamine at home and continued Patient is willing to go to subacute rehab encourage her to work with physical therapy 05/14 Blood sugar control Patient able to work with physical therapy Constitutional Vitals: Vital Signs Temp Pulse Resp BP Pulse Ox 97.3 F 61 16 134/71 96 02/11/22 11:58 02/11/22 11:58 02/11/22 11:58 02/11/22 11:58 02/11/22 11:58 Period Temp Pulse Resp BP Sys/Rosario Pulse Ox Last 24 Hr 96.8 F-98.5 F 58-72 14-20 122-162/66-83 94-98 Intake and Output 02/10/22 02/11/22 02/11/22 21:59 05:59 13:59 Intake Total 600 720 Balance 600 720 Weight 71.94 kg Intake & Output: Intake & Output 02/10/22 02/11/22 02/11/22 21:59 05:59 13:59 Intake Total 600 720 Balance 600 720 Weight 71.94 kg Intake: Oral 600 720 Other: Meal Lunch Breakfast Percent of Meal Consumed 100% 100% Feeding Ability Independent Independent # Voids 3 OBJ DATA Labs CBC & Chem 7: 02/07/22 15:41 02/08/22 05:10 Meds: Medications Acetaminophen (Acetaminophen 325 Mg Tablet) 650 mg PO Q4-6HP PRN; Protocol PRN Reason: Per Pain Protocol/Fever > 101 Last Admin: 02/11/22 08:18 Dose: 650 mg Documented by: Albuterol/Ipratropium (Ipratropium/Albuterol 3 Ml Ampul.Neb) 3 ml NEB Q4HRT PRN PRN Reason: Wheezing Bisacodyl (Bisacodyl 10 Mg Supp.Rect) 10 mg [place] Q2-3DAYS PRN PRN Reason: Constipation Dextrose (Dextrose 50% 50 Ml Vial) 0 ml IV UD PRN PRN Reason: Per Sliding Scale Last Admin: 02/08/22 05:28 Dose: 25 ml Documented by: Diagnostic Test (Pha) (Accu-Chek 1 Each Strip) 1 each FS ACHS PEG Last Admin: 02/11/22 11:18 Dose: 1 each Documented by: Duloxetine HCl (Duloxetine 30 Mg Capsule) 30 mg PO QDAY PEG Last Admin: 02/11/22 08:13 Dose: 30 mg Documented by: Enoxaparin Sodium (Enoxaparin 30 Mg/0.3 Ml Syringe) 30 mg SQ DAILY [facility] Last Admin: 02/11/22 08:28 Dose: Not Given Documented by: Gabapentin (Gabapentin 300 Mg Capsule) 300 mg PO TID [facility] Last Admin: 02/11/22 08:13 Dose: 300 mg Documented by: Glucose (Dextrose 31 Gm Oral.Susp) 15 gm PO PRN PRN PRN Reason: Hypoglycemia Hyoscyamine (Hyoscyamine Sulfate 0.125 Mg Tablet) 0.125 mg PO Q12HP PRN PRN Reason: Abdominal Discomfort Last Admin: 02/11/22 08:54 Dose: 0.125 mg Documented by: Insulin Human Regular 50 unit/ (Sodium Chloride) 100.5 mls @ 2.93 mls/hr IV DUR [facility]; Protocol Insulin Glargine (Insulin Glargine, Human 1 Unit/0.01 Ml) 30 unit SQ BID [facility] Last Admin: 02/11/22 08:14 Dose: 30 units Documented by: Insulin Human Lispro (Insulin Lispro 1 Unit/0.01 Ml Unit) 0 unit SQ ACHS [facility]; Protocol Last Admin: 02/11/22 11:29 Dose: 2 units Documented by: Levofloxacin (Levofloxacin 750 Mg Tablet) 750 mg PO Q48H [facility] Last Admin: 02/11/22 08:34 Dose: 750 mg Documented by: Levothyroxine Sodium (Levothyroxine 100 Mcg Tablet) 100 mcg PO ACB [facility] Last Admin: 02/11/22 07:28 Dose: 100 mcg Documented by: Lorazepam (Lorazepam 2 Mg/Ml Vial) 0.5 mg IV Q2HP PRN PRN Reason: ANXIETY/SEDATION Last Admin: 02/10/22 10:54 Dose: 0.5 mg Documented by: Melatonin (Melatonin 3 Mg Tablet) 3 mg PO HSP PRN PRN Reason: Insomnia Last Admin: 02/10/22 22:12 Dose: 3 mg Documented by: Nitroglycerin (Nitroglycerin 0.4 Mg Tab.Subl) 0.4 mg SL Q5M PRN PRN Reason: Chest Pain Ondansetron HCl (Ondansetron 4 Mg/2 Ml Vial) 4 mg IV Q4-6HP PRN; Protocol PRN Reason: Nausea And Vomiting Pantoprazole Sodium (Pantoprazole 40 Mg Tablet) 40 mg PO QAMAC [facility] Last Admin: 02/11/22 07:28 Dose: 40 mg Documented by: Lipase-Protease- Amylase [Zenpep] 40, 000-126,000-168,000 Unit Cap 1 dose PO 0800,1100,1600 [facility] Last Admin: 02/11/22 11:42 Dose: 1 dose Documented by: Potassium Chloride (Potassium Chloride 20 Meq Tablet) 40 meq PO ONCE PRN PRN Reason: Hypokalemia <3.5 Promethazine HCl (Promethazine 25 Mg/Ml Vial) 12.5 mg IV Q4-6HP PRN; Protocol PRN Reason: Nausea And Vomiting Propranolol HCl (Propranolol 10 Mg Tablet) 10 mg PO TID [facility] Last Admin: 02/11/22 08:13 Dose: 10 mg Documented by: Quetiapine Fumarate (Quetiapine 25 Mg Tablet) 12.5 mg PO HS PRN PRN Reason: iNSOMNIA-2nd option Last Admin: 02/10/22 22:12 Dose: 12.5 mg Documented by: Senna (Sennosides 1 Tablet) 2 tab PO HSP PRN PRN Reason: Constipation Sodium Chloride (0.9 % Sodium Chloride 10 Ml Syringe) 10 ml IV Q8 [facility] Last Admin: 02/11/22 12:25 Dose: Not Given Documented by: A/P Narrative Plan of Treatment: #Diabetic ketoacidosis #Acute kidney injury secondary to diabetic ketoacidosis-improved #Hyponatremia due to hyperglycemia #Poorly controlled insulin-dependent diabetes mellitus #Coronary artery disease, stable #Hypothyroidism #Chronic pancreatitis #Essential tremor Plan -Insulin infusion for DKA discontinued and started on long-acting insulin and sliding scale -Follow adced encourage her oral intake -Replace electrolytes as needed -Follow renal function and urine output. -Continue home atorvastatin, duloxetine, gabapentin, levothyroxine -Started home Lantus and sliding scale -Continue her home pancreatic enzyme supplements -Consistent carbohydrate diet. -PT and OT. -DVT prophylaxis: Heparin SQ -CODE STATUS: Limited -Disposition: Probably SNF or Time Spent With Patient Time: Total time spent is greater than 50% in coordination of care (as documented) at patient's floor/unit and/or counseling patient:
[2022-02-11] MEDS: traMADol 50 MG TABLET PO PRN ×2 (14:11→20:49)
[2022-02-11] MEDS: DICYCLOMINE 20 MG TABLET PO PRN (14:12)
[2022-02-11] MEDS: QUEtiapine 25 MG TABLET PO PRN (20:49)
[2022-02-11] MEDS: MELATONIN 3 MG TABLET PO PRN (20:49)
[2022-02-12] MEDS: PANTOPRAZOLE 40 MG TABLET PO SCH (07:05)
[2022-02-12] MEDS: LEVOTHYROXINE 100 MCG TABLET PO SCH (07:05)
[2022-02-12] MEDS: LIPASE PO SCH ×3 (07:06→16:25)
[2022-02-12] MEDS: PROTEASE PO SCH ×3 (07:06→16:25)
[2022-02-12] MEDS: AMYLASE PO SCH ×3 (07:06→16:25)
[2022-02-12] MEDS: INSULIN LISPRO 1 UNIT/0.01 ML UNIT SQ SCH ×4 (07:16→20:34)
[2022-02-12] MEDS: DICYCLOMINE 20 MG TABLET PO PRN ×2 (07:16→19:42)
[2022-02-12] MEDS: INSULIN GLARGINE, HUMAN 1 UNIT/0.01 ML SQ SCH ×2 (08:08→20:33)
[2022-02-12] MEDS: DULoxetine 30 MG CAPSULE PO SCH (08:08)
[2022-02-12] MEDS: GABAPENTIN 300 MG CAPSULE PO SCH ×3 (08:08→20:33)
[2022-02-12] MEDS: PROPRANOLOL 10 MG TABLET PO SCH ×3 (08:08→20:33)
[2022-02-12] MEDS: ENOXAPARIN 30 MG/0.3 ML SYRINGE SQ SCH (08:10)
[2022-02-12] MEDS ORDERED: POLYETHYLENE GLYCOL 3350 17 GM PACKET PO PRN (09:47)
--- NOTE | 2022-02-12 10:10 | Internal Med Progress Note ---
SUBJECTIVE Subjective Patient information: Note initiated : 02/12/22 at 10:10 am Service Date, if different from initiated Date: [] Patient: Tennille Castillo 76 y/o F admitted on 02/07/22 for HYPRGLYEMIC. Chief Complaint: [] Interval history: 6-year-old female with a history of type 2 diabetes had a recurrent hospital admissions for DKA, chronic pancreatitis hypothyroidism, coronary artery disease hyperlipidemia who is present to the ER with a blood glucose of more than 500 and tiredness. Patient continued having chronic abdominal pain no significant worsening she also complaining of some lower abdominal pain and her urine analysis was positive for UTI and started on ceftriaxone in the ED patient had a recent admissions for the same and was supposed to be discharged to a rehab facility when finally patient ended up choosing going home and she failed home multiple times. ED physician seriously doubt her insulin management at home CODE STATUS discussed with the patient and she want to be limited intervention which includes CPR vasopressors defibrillation resynchronization shock as indicated but no intubation Review of systems Constitutional: Positive for fatigue and chills, no fever Cardiovascular: no chest pain, no palpitations Respiratory: no cough or dyspnea Gastrointestinal: no nausea and stil have abdominal discomfort. Genitourinary: no dysuria or difficulty voiding Neurological: no focal weakness or numbness Physical exam Eyes: normal appearance, no scleral icterus. Respiratory: no respiratory distress. Cardiovascular: normal rate and rhythm, S1, S2. GI/Abdominal: soft, nontender, no guarding. Extremities: full range of motion, nontender. Neurological: CN II-XII intact, intact motor, intact sensation. 02/08 Patient is feeling better Blood sugar is better controlled she had an episode of hypoglycemia I seriously doubt her insulin management at home she lives alone and appears to be weak and having abdominal pain from chronic pancreatitis We will continue titrating her long-acting insulin 02/09 Patient appears to be very weak Not participating much with the physical therapy Hypoglycemia improved Discussed with case management about probably needing placement in [place] discussed with the patient she refused to go to rehab and continued to fail at home and failing insulin management 05/13 Patient blood sugar is better controlled Patient was complaining of rectal spasm she takes hyoscyamine at home and continued Patient is willing to go to subacute rehab encourage her to work with physical therapy 05/14 Blood sugar control Patient able to work with physical therapy 05/15 Patient continues to refuse Lovenox Educated her Working with physical therapy Constitutional Vitals: Vital Signs Temp Pulse Resp BP Pulse Ox 97.3 F 64 18 148/80 98 02/12/22 07:33 02/12/22 07:33 02/12/22 07:33 02/12/22 07:33 02/12/22 07:33 Period Temp Pulse Resp BP Sys/Rosario Pulse Ox Last 24 Hr 97.3 F-98.8 F 61-71 14-18 120-166/68-92 95-100 Intake and Output 02/11/22 02/12/22 02/12/22 21:59 05:59 13:59 Intake Total 240 480 240 Balance 240 480 240 Weight 73.709 kg Intake & Output: Intake & Output 02/11/22 02/12/22 02/12/22 21:59 05:59 13:59 Intake Total 240 480 240 Balance 240 480 240 Weight 73.709 kg Intake: Oral 240 480 240 Other: Meal Dinner Breakfast Percent of Meal Consumed 100% 100% Feeding Ability Independent Independent # Voids 2 3 OBJ DATA Labs CBC & Chem 7: 02/07/22 15:41 02/08/22 05:10 Meds: Medications Acetaminophen (Acetaminophen 325 Mg Tablet) 650 mg PO Q4-6HP PRN; Protocol PRN Reason: Per Pain Protocol/Fever > 101 Last Admin: 02/11/22 08:18 Dose: 650 mg Documented by: Albuterol/Ipratropium (Ipratropium/Albuterol 3 Ml Ampul.Neb) 3 ml NEB Q4HRT PRN PRN Reason: Wheezing Bisacodyl (Bisacodyl 10 Mg Supp.Rect) 10 mg [place] Q2-3DAYS PRN PRN Reason: Constipation Dextrose (Dextrose 50% 50 Ml Vial) 0 ml IV UD PRN PRN Reason: Per Sliding Scale Last Admin: 02/08/22 05:28 Dose: 25 ml Documented by: Diagnostic Test (Pha) (Accu-Chek 1 Each Strip) 1 each FS ACHS PEG Last Admin: 02/12/22 07:08 Dose: 1 each Documented by: Dicyclomine HCl (Dicyclomine 20 Mg Tablet) 20 mg PO QID PRN PRN Reason: abdominal discomfort Last Admin: 02/12/22 07:16 Dose: 20 mg Documented by: Duloxetine HCl (Duloxetine 30 Mg Capsule) 30 mg PO QDAY [facility] Last Admin: 02/12/22 08:08 Dose: 30 mg Documented by: Enoxaparin Sodium (Enoxaparin 30 Mg/0.3 Ml Syringe) 30 mg SQ DAILY [facility] Last Admin: 02/12/22 08:10 Dose: Not Given Documented by: Gabapentin (Gabapentin 300 Mg Capsule) 300 mg PO TID [facility] Last Admin: 02/12/22 08:08 Dose: 300 mg Documented by: Glucose (Dextrose 31 Gm Oral.Susp) 15 gm PO PRN PRN PRN Reason: Hypoglycemia Insulin Human Regular 50 unit/ (Sodium Chloride) 100.5 mls @ 2.93 mls/hr IV DUR [facility]; Protocol Insulin Glargine (Insulin Glargine, Human 1 Unit/0.01 Ml) 30 unit SQ BID [facility] Last Admin: 02/12/22 08:08 Dose: 30 units Documented by: Insulin Human Lispro (Insulin Lispro 1 Unit/0.01 Ml Unit) 0 unit SQ ACHS [facility]; Protocol Last Admin: 02/12/22 07:16 Dose: 4 units Documented by: Levofloxacin (Levofloxacin 750 Mg Tablet) 750 mg PO Q48H [facility] Last Admin: 02/11/22 08:34 Dose: 750 mg Documented by: Levothyroxine Sodium (Levothyroxine 100 Mcg Tablet) 100 mcg PO ACB [facility] Last Admin: 02/12/22 07:05 Dose: 100 mcg Documented by: Melatonin (Melatonin 3 Mg Tablet) 3 mg PO HSP PRN PRN Reason: Insomnia Last Admin: 02/11/22 20:49 Dose: 3 mg Documented by: Nitroglycerin (Nitroglycerin 0.4 Mg Tab.Subl) 0.4 mg SL Q5M PRN PRN Reason: Chest Pain Ondansetron HCl (Ondansetron 4 Mg/2 Ml Vial) 4 mg IV Q4-6HP PRN; Protocol PRN Reason: Nausea And Vomiting Pantoprazole Sodium (Pantoprazole 40 Mg Tablet) 40 mg PO QAMAC [facility] Last Admin: 02/12/22 07:05 Dose: 40 mg Documented by: Lipase-Protease- Amylase [Zenpep] 40, 000-126,000-168,000 Unit Cap 1 dose PO 0800,1100,1600 [facility] Last Admin: 02/12/22 07:06 Dose: 1 dose Documented by: Polyethylene Glycol (Polyethylene Glycol 3350 17 Gm Packet) 17 gm PO DAILYP PRN PRN Reason: Constipation Potassium Chloride (Potassium Chloride 20 Meq Tablet) 40 meq PO ONCE PRN PRN Reason: Hypokalemia <3.5 Promethazine HCl (Promethazine 25 Mg/Ml Vial) 12.5 mg IV Q4-6HP PRN; Protocol PRN Reason: Nausea And Vomiting Propranolol HCl (Propranolol 10 Mg Tablet) 10 mg PO TID PEG Last Admin: 02/12/22 08:08 Dose: 10 mg Documented by: Quetiapine Fumarate (Quetiapine 25 Mg Tablet) 12.5 mg PO HS PRN PRN Reason: iNSOMNIA-2nd option Last Admin: 02/11/22 20:49 Dose: 12.5 mg Documented by: Senna (Sennosides 1 Tablet) 2 tab PO HSP PRN PRN Reason: Constipation Tramadol HCl (Tramadol 50 Mg Tablet) 50 mg PO Q6HP PRN; Protocol PRN Reason: Pain Last Admin: 02/11/22 20:49 Dose: 50 mg Documented by: A/P Narrative Plan of Treatment: #Diabetic ketoacidosis #Acute kidney injury secondary to diabetic ketoacidosis-improved #Hyponatremia due to hyperglycemia #Poorly controlled insulin-dependent diabetes mellitus #Coronary artery disease, stable #Hypothyroidism #Chronic pancreatitis #Essential tremor Plan -Insulin infusion for DKA discontinued and started on long-acting insulin and sliding scale -Follow adced encourage her oral intake -Replace electrolytes as needed -Follow renal function and urine output. -Continue home atorvastatin, duloxetine, gabapentin, levothyroxine -Started home Lantus and sliding scale -Continue her home pancreatic enzyme supplements -Consistent carbohydrate diet. -PT and OT. -DVT prophylaxis: Heparin SQ -CODE STATUS: Limited -Disposition: Probably SNF or Time Spent With Patient Time: Total time spent is greater than 50% in coordination of care (as documented) at patient's floor/unit and/or counseling patient:
[2022-02-12 10:48] LABS: ALT/SGPT 73 U/L (<40); AST/SGOT 148 U/L (<32); Albumin 3.3 gm/dL (3.2-5.2); Albumin/Globulin Ratio 1.4 (1.0-2.3); Alkaline Phosphatase 114 U/L (39-117); Bilirubin,Total 0.2 mg/dL (0.1-1.0); Blood Urea Nitrogen 14 mg/dL (8-23); Calcium 8.5 mg/dL (8.6-10.4); Carbon Dioxide 26 mmol/L (22-30); Chloride 97 mmol/L (96-108); Globulin 2.4 gm/dL (2.2-3.7); Glomerular Filtration Rate 71; Glucose 314 mg/dL (70-105)
[2022-02-12] MEDS: ACETAMINOPHEN 325 MG TABLET PO PRN (19:44)
[2022-02-12] MEDS: MELATONIN 3 MG TABLET PO PRN (20:33)
[2022-02-12] MEDS: QUEtiapine 25 MG TABLET PO PRN (20:33)
[2022-02-12] MEDS ORDERED: POTASSIUM CHLORIDE 20 MEQ TABLET PO ONE (22:59)
[2022-02-12] MEDS ORDERED: CARVEDILOL 12.5 MG TABLET PO ONE (23:34)
[2022-02-12] MEDS: POTASSIUM CHLORIDE 20 MEQ TABLET PO ONE ×2 (23:57→23:59)
[2022-02-12] MEDS: CARVEDILOL 12.5 MG TABLET PO SCH (23:58)
[2022-02-12] MEDS: CARVEDILOL 6.25 MG TABLET ONE (23:58)
[2022-02-13] MEDS: CARVEDILOL 6.25 MG TABLET ONE
[2022-02-13] MEDS ORDERED: hydrALAZINE 20 MG/ML VIAL IV PRN (02:07)
[2022-02-13] MEDS: LEVOTHYROXINE 100 MCG TABLET PO SCH (07:55)
[2022-02-13] MEDS: PANTOPRAZOLE 40 MG TABLET PO SCH (07:55)
[2022-02-13] MEDS: LIPASE PO SCH ×3 (07:56→15:51)
[2022-02-13] MEDS: AMYLASE PO SCH ×3 (07:56→15:51)
[2022-02-13] MEDS: PROTEASE PO SCH ×3 (07:56→15:51)
[2022-02-13] MEDS: CARVEDILOL 12.5 MG TABLET PO SCH ×2 (07:56→17:15)
[2022-02-13] MEDS: INSULIN GLARGINE, HUMAN 1 UNIT/0.01 ML SQ SCH ×2 (08:31→21:29)
[2022-02-13] MEDS: GABAPENTIN 300 MG CAPSULE PO SCH ×3 (08:31→21:29)
[2022-02-13] MEDS: PROPRANOLOL 10 MG TABLET PO SCH ×3 (08:31→21:29)
[2022-02-13] MEDS: DULoxetine 30 MG CAPSULE PO SCH (08:31)
[2022-02-13] MEDS: ENOXAPARIN 30 MG/0.3 ML SYRINGE SQ SCH (08:32)
[2022-02-13] MEDS: INSULIN LISPRO 1 UNIT/0.01 ML UNIT SQ SCH ×5 (08:32→23:37)
[2022-02-13] MEDS: LEVOFLOXACIN 750 MG TABLET PO SCH (08:41)
[2022-02-13] MEDS ORDERED: CARVEDILOL 12.5 MG TABLET PO SCH ×2 (09:00→23:41)
--- NOTE | 2022-02-13 11:36 | Internal Med Progress Note ---
SUBJECTIVE Subjective Patient information: Note initiated : 02/13/22 at 11:35 am Service Date, if different from initiated Date: [] Patient: Tennille Castillo 76 y/o F admitted on 02/07/22 for HYPRGLYEMIC. Chief Complaint: [] Interval history: 6-year-old female with a history of type 2 diabetes had a recurrent hospital admissions for DKA, chronic pancreatitis hypothyroidism, coronary artery disease hyperlipidemia who is present to the ER with a blood glucose of more than 500 and tiredness. Patient continued having chronic abdominal pain no significant worsening she also complaining of some lower abdominal pain and her urine analysis was positive for UTI and started on ceftriaxone in the ED patient had a recent admissions for the same and was supposed to be discharged to a rehab facility when finally patient ended up choosing going home and she failed home multiple times. ED physician seriously doubt her insulin management at home CODE STATUS discussed with the patient and she want to be limited intervention which includes CPR vasopressors defibrillation resynchronization shock as indicated but no intubation Review of systems Constitutional: Positive for fatigue and chills, no fever Cardiovascular: no chest pain, no palpitations Respiratory: no cough or dyspnea Gastrointestinal: no nausea and stil have abdominal discomfort. Genitourinary: no dysuria or difficulty voiding Neurological: no focal weakness or numbness Physical exam Eyes: normal appearance, no scleral icterus. Respiratory: no respiratory distress. Cardiovascular: normal rate and rhythm, S1, S2. GI/Abdominal: soft, nontender, no guarding. Extremities: full range of motion, nontender. Neurological: CN II-XII intact, intact motor, intact sensation. 02/08 Patient is feeling better Blood sugar is better controlled she had an episode of hypoglycemia I seriously doubt her insulin management at home she lives alone and appears to be weak and having abdominal pain from chronic pancreatitis We will continue titrating her long-acting insulin 02/09 Patient appears to be very weak Not participating much with the physical therapy Hypoglycemia improved Discussed with case management about probably needing placement in [place] discussed with the patient she refused to go to rehab and continued to fail at home and failing insulin management 05/13 Patient blood sugar is better controlled Patient was complaining of rectal spasm she takes hyoscyamine at home and continued Patient is willing to go to subacute rehab encourage her to work with physical therapy 05/14 Blood sugar control Patient able to work with physical therapy 05/15 Patient continues to refuse Lovenox Educated her Working with physical therapy 05/16 Patient is progressing well with physical therapy Pending SNF placement Constitutional Vitals: Vital Signs Temp Pulse Resp BP Pulse Ox 96.5 F L 63 12 137/81 94 02/13/22 07:23 02/13/22 07:23 02/13/22 07:23 02/13/22 07:23 02/13/22 07:23 Period Temp Pulse Resp BP Sys/Rosario Pulse Ox Last 24 Hr 96.5 F-97.6 F 63-73 12-16 114-171/65-87 93-99 Intake and Output 02/12/22 02/13/22 02/13/22 21:59 05:59 13:59 Intake Total 700 700 Balance 700 700 Weight 74.435 kg Intake & Output: Intake & Output 02/12/22 02/13/22 02/13/22 21:59 05:59 13:59 Intake Total 700 700 Balance 700 700 Weight 74.435 kg Intake: Oral 700 700 Other: Meal Dinner Snacks Percent of Meal Consumed 100% 100% Feeding Ability Independent Independent Stool Size Moderate Stool Consistency Soft # Voids 4 1 # Bowel Movements 1 OBJ DATA Labs CBC & Chem 7: 02/07/22 15:41 02/12/22 09:56 Labs: Abnormal Lab Results 02/12/22 09:56 Potassium 3.0 L Glucose 314 H Calcium 8.5 L AST 148 H ALT 73 H Total Protein 5.7 L Meds: Medications Acetaminophen (Acetaminophen 325 Mg Tablet) 650 mg PO Q4-6HP PRN; Protocol PRN Reason: Per Pain Protocol/Fever > 101 Last Admin: 02/12/22 19:44 Dose: 650 mg Documented by: Albuterol/Ipratropium (Ipratropium/Albuterol 3 Ml Ampul.Neb) 3 ml NEB Q4HRT PRN PRN Reason: Wheezing Bisacodyl (Bisacodyl 10 Mg Supp.Rect) 10 mg [place] Q2-3DAYS PRN PRN Reason: Constipation Carvedilol (Carvedilol 12.5 Mg Tablet) 12.5 mg PO BIDCC PEG Last Admin: 02/13/22 07:56 Dose: 12.5 mg Documented by: Dextrose (Dextrose 50% 50 Ml Vial) 0 ml IV UD PRN PRN Reason: Per Sliding Scale Last Admin: 02/08/22 05:28 Dose: 25 ml Documented by: Diagnostic Test (Pha) (Accu-Chek 1 Each Strip) 1 each FS ACHS [facility] Last Admin: 02/13/22 11:16 Dose: 1 each Documented by: Dicyclomine HCl (Dicyclomine 20 Mg Tablet) 20 mg PO QID PRN PRN Reason: abdominal discomfort Last Admin: 02/12/22 19:42 Dose: 20 mg Documented by: Duloxetine HCl (Duloxetine 30 Mg Capsule) 30 mg PO QDAY [facility] Last Admin: 02/13/22 08:31 Dose: 30 mg Documented by: Enoxaparin Sodium (Enoxaparin 30 Mg/0.3 Ml Syringe) 30 mg SQ DAILY [facility] Last Admin: 02/13/22 08:32 Dose: 30 mg Documented by: Gabapentin (Gabapentin 300 Mg Capsule) 300 mg PO TID [facility] Last Admin: 02/13/22 08:31 Dose: 300 mg Documented by: Glucose (Dextrose 31 Gm Oral.Susp) 15 gm PO PRN PRN PRN Reason: Hypoglycemia Hydralazine HCl (Hydralazine 20 Mg/Ml Vial) 10 mg IV Q4HP PRN PRN Reason: Hypertension Insulin Human Regular 50 unit/ (Sodium Chloride) 100.5 mls @ 2.93 mls/hr IV DUR [facility]; Protocol Insulin Glargine (Insulin Glargine, Human 1 Unit/0.01 Ml) 30 unit SQ BID [facility] Last Admin: 02/13/22 08:31 Dose: 30 units Documented by: Insulin Human Lispro (Insulin Lispro 1 Unit/0.01 Ml Unit) 0 unit SQ [facility]; Protocol Last Admin: 02/13/22 11:15 Dose: 6 units Documented by: Levofloxacin (Levofloxacin 750 Mg Tablet) 750 mg PO Q48H [facility] Last Admin: 02/13/22 08:41 Dose: 750 mg Documented by: Levothyroxine Sodium (Levothyroxine 100 Mcg Tablet) 100 mcg PO ACB [facility] Last Admin: 02/13/22 07:55 Dose: 100 mcg Documented by: Melatonin (Melatonin 3 Mg Tablet) 3 mg PO HSP PRN PRN Reason: Insomnia Last Admin: 02/12/22 20:33 Dose: 3 mg Documented by: Nitroglycerin (Nitroglycerin 0.4 Mg Tab.Subl) 0.4 mg SL Q5M PRN PRN Reason: Chest Pain Ondansetron HCl (Ondansetron 4 Mg/2 Ml Vial) 4 mg IV Q4-6HP PRN; Protocol PRN Reason: Nausea And Vomiting Pantoprazole Sodium (Pantoprazole 40 Mg Tablet) 40 mg PO QAMAC [facility] Last Admin: 02/13/22 07:55 Dose: 40 mg Documented by: Lipase-Protease- Amylase [Zenpep] 40, 000-126,000-168,000 Unit Cap 1 dose PO 08 00,1100,1600 [facility] Last Admin: 02/13/22 11:07 Dose: 1 dose Documented by: Polyethylene Glycol (Polyethylene Glycol 3350 17 Gm Packet) 17 gm PO DAILYP PRN PRN Reason: Constipation Promethazine HCl (Promethazine 25 Mg/Ml Vial) 12.5 mg IV Q4-6HP PRN; Protocol PRN Reason: Nausea And Vomiting Propranolol HCl (Propranolol 10 Mg Tablet) 10 mg PO TID [facility] Last Admin: 02/13/22 08:31 Dose: 10 mg Documented by: Quetiapine Fumarate (Quetiapine 25 Mg Tablet) 12.5 mg PO HS PRN PRN Reason: iNSOMNIA-2nd option Last Admin: 02/12/22 20:33 Dose: 12.5 mg Documented by: Senna (Sennosides 1 Tablet) 2 tab PO HSP PRN PRN Reason: Constipation Tramadol HCl (Tramadol 50 Mg Tablet) 50 mg PO Q6HP PRN; Protocol PRN Reason: Pain Last Admin: 02/11/22 20:49 Dose: 50 mg Documented by: A/P Narrative Plan of Treatment: #Diabetic ketoacidosis #Acute kidney injury secondary to diabetic ketoacidosis-improved #Hyponatremia due to hyperglycemia #Poorly controlled insulin-dependent diabetes mellitus #Coronary artery disease, stable #Hypothyroidism #Chronic pancreatitis #Essential tremor Plan -Insulin infusion for DKA discontinued and started on long-acting insulin and sliding scale -Follow adced encourage her oral intake -Replace electrolytes as needed -Follow renal function and urine output. -Continue home atorvastatin, duloxetine, gabapentin, levothyroxine -Started home Lantus and sliding scale -Continue her home pancreatic enzyme supplements -Consistent carbohydrate diet. -PT and OT. -DVT prophylaxis: Heparin SQ -CODE STATUS: Limited -Disposition: Probably SNF or Time Spent With Patient Time: Total time spent is greater than 50% in coordination of care (as documented) at patient's floor/unit and/or counseling patient:
[2022-02-13] MEDS: DICYCLOMINE 20 MG TABLET PO PRN ×3 (11:55→21:33)
--- NOTE | 2022-02-13 13:31 | Discharge Summary ---
Discharge Provider Provider IMPORTANT FOLLOW-UP INFORMATION FOR PCP: Plan -changed home lantus from 30bid to 40 qam and 30 qpm -Patient to monitor Blood glucose twice daily and bring log to PCP -started fenofibrate Patient information: Note initiated : 02/13/22 at 1:29 pm Service Date, if different from initiated Date: [] Patient: Tennille Castillo 76 y/o F admitted on 02/07/22 for HYPRGLYEMIC. Chief Complaint: [] Date of admission: 02/07/22 18:46 Primary care physician: OSKAR Carvajal Consults: 02/07/22 Consult to Physician [CONS] Stat Comment: Consulting Provider: Giselle Curry Reason For Exam: Physician to Consult COURSE Hospital Course Hospital course: 6-year-old female with a history of type 2 diabetes had a recurrent hospital admissions for DKA, chronic pancreatitis hypothyroidism, coronary artery disease hyperlipidemia who is present to the ER with a blood glucose of more than 500 and tiredness. Patient continued having chronic abdominal pain no significant worsening she also complaining of some lower abdominal pain and her urine analysis was positive for UTI and started on ceftriaxone in the ED patient had a recent admissions for the same and was supposed to be discharged to a rehab facility when finally patient ended up choosing going home and she failed home multiple times. ED physician seriously doubt her insulin management at home CODE STATUS discussed with the patient and she want to be limited intervention which includes CPR vasopressors defibrillation resynchronization shock as indicated but no intubation 02/08 Patient is feeling better Blood sugar is better controlled she had an episode of hypoglycemia I seriously doubt her insulin management at home she lives alone and appears to be weak and having abdominal pain from chronic pancreatitis We will continue titrating her long-acting insulin 02/09 Patient appears to be very weak Not participating much with the physical therapy Hypoglycemia improved Discussed with case management about probably needing placement in [place] discussed with the patient she refused to go to rehab and continued to fail at home and failing insulin management 02/10 Patient blood sugar is better controlled Patient was complaining of rectal spasm she takes hyoscyamine at home and continued Patient is willing to go to subacute rehab encourage her to work with physical therapy 02/11 Blood sugar control Patient able to work with physical therapy 02/12 Patient continues to refuse Lovenox Educated her Working with physical therapy 02/13 Patient is progressing well with physical therapy Pending SNF placement 02/14 Patient states poor sleep, no other new complaints. Hypoglycemic yesterday afternoon evening. Will adjust her morning Lantus. Hypertriglyceridemia, start fibrate. 02/15 Patient seems to sleep better. Complains of mild headache. Blood glucose in the afternoon evening mildly improving Triglycerides better today. A: #Diabetic ketoacidosis: -A1c 12.9 in December #SUDARSHAN: 2/2 diabetic ketoacidosis-improved #Hyponatremia due to hyperglycemia: improved #Poorly controlled insulin-dependent diabetes mellitus: #Coronary artery disease: stable #Hypothyroidism: #Chronic pancreatitis: #Transaminitis: #Hypertriglyceridemia: Was on statin in past but that was stopped due to elevated liver enzymes. -improving #Electrolyte d/o (hypokalemia): #Essential tremor: #UTI (Staph, mssa): Plan -changed home lantus from 30bid to 40 qam and 30 qpm -Patient to monitor Blood glucose twice daily and bring log to PCP -started fenofibrate Discharge diagnosis: DKA SUDARSHAN hyponatremia hypertriglyceridemia Secondary discharge diagnosis: CAD hypothyroidism chronic pancreatitis tremor essential diabetes Time Spent with Patient Time attestation: Total time spent providing and/or coordinating discharge services: Time spent: Greater than 30 minutes EXAM Constitutional Vitals: Temp Pulse Resp BP Pulse Ox 96.7 F L 69 12 129/84 95 02/13/22 12:00 02/13/22 12:00 02/13/22 12:00 02/13/22 12:00 02/13/22 12:00 Discharge Plan Patient/Caregiver Discharge Instructions Activity: increase activity as tolerated Diet: Consistent Carbohydrate Stand Alone Forms: Work/Release Restrictions Prescriptions: New fenofibrate micronized 43 mg Capsule 86 mg PO DAILY Qty: 30 0RF Continued Acidophilus Tablet,Chewable 2 tab PO BID 0RF hyoscyamine sulfate 0.125 mg tablet, sublingual 0.125 mg PO Q6H PRN (Reason: Abdominal Discomfort) 0RF multivit [id number] [Hair, Skin and Nails Advanced] 1 tab PO DAILY 0RF trazodone 100 mg tablet 100 mg PO HSP PRN (Reason: insomnia) 0RF Zenpep 40,000-126,000- 168,000 unit capsule,delayed release(DR/EC) 40,000 cap PO TID 0RF Label Comments: take 1 capsule by mouth three times a day duloxetine 30 mg Capsule,Delayed Release(Dr/Ec) 30 mg PO QDAY 0RF acyclovir 400 mg tablet 1 tab PO BID 0RF gabapentin 800 mg tablet 1 tab PO QID 0RF zinc 50 mg Tablet 50 mg PO DAILY 0RF cholecalciferol (vitamin D3) [Vitamin D3] 50 mcg (2,000 unit) Capsule 50 mcg PO DAILY 0RF Novolin R Regular U-100 Insuln 100 UNIT/ML solution See Protocol unit subcut AC Qty: 10 0RF Protocol: Insulin Sliding Scale, High Condition: HUMALOG/NOVALOG SC SLIDING Dose/Route: SCALE Condition: FSBS < 70 Dose/Route: Give 4 Oz juice, or 15gm oral Instruction: Glucose, or 25ml D50W IV if Dose/Route: unable to take PO. Recheck in Instruction: 15 min and repeat if FSBS < 70 Condition: FSBS 71-140 Dose/Route: NO COVERAGE Condition: FSBS 141-170 Dose/Route: 3 UNITS Condition: FSBS 171-200 Dose/Route: 6 UNITS Condition: FSBS 201-250 Dose/Route: 9 UNITS Condition: FSBS 251-300 Dose/Route: 12 UNITS Condition: FSBS 301-350 Dose/Route: 15 UNITS Condition: FSBS 351-400 Dose/Route: 18 UNITS Condition: FSBS > 400 Dose/Route: 20 UNITS; REPEAT Q2H X2 Instruction: CONTINUE FOLLOWING SLIDING Condition: SCALE; IF STILL > 400; CALL Dose/Route: PHYSICIAN Rx Instructions: 70-139 none subcut before meals and at bedtime; levothyroxine 100 mcg Tablet 100 mcg PO QDAY 0RF propranolol 30 mg tablet 10 mg PO TID 0RF Changed Tresiba U-100 Insulin 100 unit/mL solution See Rx Instructions .ROUTE .COMPLEX Qty: 1 0RF Rx Instructions: take 40 units in morning and 30 units in evening Follow Up Plan Follow up with: Jacque Severino FNP [Primary Care Provider] - Patient Disposition: Xfer SNF Prognosis: Fair Rehab Potential: Fair I certify that the patient requires SNF services: Yes Overall status at discharge: patient is progressing back to baseline
--- NOTE | 2022-02-13 14:12 | Internal Med Progress Note ---
SUBJECTIVE Subjective Patient information: Note initiated : 02/13/22 at 2:10 pm Service Date, if different from initiated Date: [] Patient: Tennille Castillo 76 y/o F admitted on 02/07/22 for HYPRGLYEMIC. Chief Complaint: [] Interval history: 6-year-old female with a history of type 2 diabetes had a recurrent hospital admissions for DKA, chronic pancreatitis hypothyroidism, coronary artery disease hyperlipidemia who is present to the ER with a blood glucose of more than 500 and tiredness. Patient continued having chronic abdominal pain no significant worsening she also complaining of some lower abdominal pain and her urine analysis was positive for UTI and started on ceftriaxone in the ED patient had a recent admissions for the same and was supposed to be discharged to a rehab facility when finally patient ended up choosing going home and she failed home multiple times. ED physician seriously doubt her insulin management at home CODE STATUS discussed with the patient and she want to be limited intervention which includes CPR vasopressors defibrillation resynchronization shock as indicated but no intubation 02/08 Patient is feeling better Blood sugar is better controlled she had an episode of hypoglycemia I seriously doubt her insulin management at home she lives alone and appears to be weak and having abdominal pain from chronic pancreatitis We will continue titrating her long-acting insulin 02/09 Patient appears to be very weak Not participating much with the physical therapy Hypoglycemia improved Discussed with case management about probably needing placement in [place] discussed with the patient she refused to go to rehab and continued to fail at home and failing insulin management 02/10 Patient blood sugar is better controlled Patient was complaining of rectal spasm she takes hyoscyamine at home and continued Patient is willing to go to subacute rehab encourage her to work with physical therapy 02/11 Blood sugar control Patient able to work with physical therapy 02/12 Patient continues to refuse Lovenox Educated her Working with physical therapy 02/13 Patient is progressing well with physical therapy Pending SNF placement 02/14 Constitutional Vitals: Vital Signs Temp Pulse Resp BP Pulse Ox 96.7 F L 69 12 129/84 95 02/13/22 12:00 02/13/22 12:00 02/13/22 12:00 02/13/22 12:00 02/13/22 12:00 Period Temp Pulse Resp BP Sys/Rosario Pulse Ox Last 24 Hr 96.5 F-97.4 F 63-73 12-14 114-171/65-87 93-98 Intake and Output 02/13/22 02/13/22 02/13/22 05:59 13:59 21:59 Intake Total 700 Balance 700 Weight 74.435 kg Patient Weight 02/14/22 05:59 Weight 74.435 kg Intake & Output: Intake & Output 02/13/22 02/13/22 02/13/22 05:59 13:59 21:59 Intake Total 700 Balance 700 Weight 74.435 kg Intake: Oral 700 Other: Meal Snacks Percent of Meal Consumed 100% Feeding Ability Independent Stool Size Moderate Stool Consistency Soft # Voids 1 # Bowel Movements 1 Exam: General: Alert, Awake, No acute Distress Eyes/N/T: EOMI, Head/Neck: neck supple, CV: RRR, No murmurs, Pulm: Clear b/l, no wheezing/rhonchi/rales Abd: soft, nontender, +BS x4 Ext: no clubbing/cyanosis/edema Neuro: Alert, no focal deficits, moves all extremities, Skin: warm/dry OBJ DATA Labs CBC & Chem 7: 02/07/22 15:41 02/12/22 09:56 Labs: Abnormal Lab Results 02/12/22 09:56 Potassium 3.0 L Glucose 314 H Calcium 8.5 L AST 148 H ALT 73 H Total Protein 5.7 L Meds: Medications Acetaminophen (Acetaminophen 325 Mg Tablet) 650 mg PO Q4-6HP PRN; Protocol PRN Reason: Per Pain Protocol/Fever > 101 Last Admin: 02/12/22 19:44 Dose: 650 mg Documented by: Albuterol/Ipratropium (Ipratropium/Albuterol 3 Ml Ampul.Neb) 3 ml NEB Q4HRT PRN PRN Reason: Wheezing Bisacodyl (Bisacodyl 10 Mg Supp.Rect) 10 mg [place] Q2-3DAYS PRN PRN Reason: Constipation Carvedilol (Carvedilol 12.5 Mg Tablet) 12.5 mg PO BIDCC [facility] Last Admin: 02/13/22 07:56 Dose: 12.5 mg Documented by: Dextrose (Dextrose 50% 50 Ml Vial) 0 ml IV UD PRN PRN Reason: Per Sliding Scale Last Admin: 02/08/22 05:28 Dose: 25 ml Documented by: Diagnostic Test (Pha) (Accu-Chek 1 Each Strip) 1 each FS ACHS [facility] Last Admin: 02/13/22 11:16 Dose: 1 each Documented by: Dicyclomine HCl (Dicyclomine 20 Mg Tablet) 20 mg PO QID PRN PRN Reason: abdominal discomfort Last Admin: 02/13/22 11:55 Dose: 20 mg Documented by: Duloxetine HCl (Duloxetine 30 Mg Capsule) 30 mg PO QDAY [facility] Last Admin: 02/13/22 08:31 Dose: 30 mg Documented by: Enoxaparin Sodium (Enoxaparin 30 Mg/0.3 Ml Syringe) 30 mg SQ DAILY [facility] Last Admin: 02/13/22 08:32 Dose: 30 mg Documented by: Gabapentin (Gabapentin 300 Mg Capsule) 300 mg PO TID [facility] Last Admin: 02/13/22 08:31 Dose: 300 mg Documented by: Glucose (Dextrose 31 Gm Oral.Susp) 15 gm PO PRN PRN PRN Reason: Hypoglycemia Hydralazine HCl (Hydralazine 20 Mg/Ml Vial) 10 mg IV Q4HP PRN PRN Reason: Hypertension Insulin Human Regular 50 unit/ (Sodium Chloride) 100.5 mls @ 2.93 mls/hr IV DUR [facility]; Protocol Insulin Glargine (Insulin Glargine, Human 1 Unit/0.01 Ml) 30 unit SQ BID [facility] Last Admin: 02/13/22 08:31 Dose: 30 units Documented by: Insulin Human Lispro (Insulin Lispro 1 Unit/0.01 Ml Unit) 0 unit SQ [facility]; Protocol Last Admin: 02/13/22 11:15 Dose: 6 units Documented by: Levofloxacin (Levofloxacin 750 Mg Tablet) 750 mg PO Q48H [facility] Last Admin: 02/13/22 08:41 Dose: 750 mg Documented by: Levothyroxine Sodium (Levothyroxine 100 Mcg Tablet) 100 mcg PO ACB [facility] Last Admin: 02/13/22 07:55 Dose: 100 mcg Documented by: Melatonin (Melatonin 3 Mg Tablet) 3 mg PO HSP PRN PRN Reason: Insomnia Last Admin: 02/12/22 20:33 Dose: 3 mg Documented by: Nitroglycerin (Nitroglycerin 0.4 Mg Tab.Subl) 0.4 mg SL Q5M PRN PRN Reason: Chest Pain Ondansetron HCl (Ondansetron 4 Mg/2 Ml Vial) 4 mg IV Q4-6HP PRN; Protocol PRN Reason: Nausea And Vomiting Pantoprazole Sodium (Pantoprazole 40 Mg Tablet) 40 mg PO QAMAC [facility] Last Admin: 02/13/22 07:55 Dose: 40 mg Documented by: Lipase-Protease- Amylase [Zenpep] 40, 000-126,000-168,000 Unit Cap 1 dose PO 0800,1100,1600 [facility] Last Admin: 02/13/22 11:07 Dose: 1 dose Documented by: Polyethylene Glycol (Polyethylene Glycol 3350 17 Gm Packet) 17 gm PO DAILYP PRN PRN Reason: Constipation Promethazine HCl (Promethazine 25 Mg/Ml Vial) 12.5 mg IV Q4-6HP PRN; Protocol PRN Reason: Nausea And Vomiting Propranolol HCl (Propranolol 10 Mg Tablet) 10 mg PO TID [facility] Last Admin: 02/13/22 08:31 Dose: 10 mg Documented by: Quetiapine Fumarate (Quetiapine 25 Mg Tablet) 12.5 mg PO HS PRN PRN Reason: iNSOMNIA-2nd option Last Admin: 02/12/22 20:33 Dose: 12.5 mg Documented by: Senna (Sennosides 1 Tablet) 2 tab PO HSP PRN PRN Reason: Constipation Tramadol HCl (Tramadol 50 Mg Tablet) 50 mg PO Q6HP PRN; Protocol PRN Reason: Pain Last Admin: 02/11/22 20:49 Dose: 50 mg Documented by: A/P Narrative A/P Narrative: A: #Diabetic ketoacidosis: #SUDARSHAN: 2/2 diabetic ketoacidosis-improved #Hyponatremia due to hyperglycemia: #Poorly controlled insulin-dependent diabetes mellitus: #Coronary artery disease: stable #Hypothyroidism: #Chronic pancreatitis: #Essential tremor: Plan -Insulin infusion for DKA discontinued and started on long-acting insulin and sliding scale -Started home Lantus and sliding scale -encourage her oral intake -Replace electrolytes as needed -Follow renal function and urine output -Continue home atorvastatin/duloxetine/gabapentin/levothyroxine -Continue her home pancreatic enzyme supplements -PT and OT -CM for SNF placement -DVT prophylaxis: Heparin SQ CODE STATUS: Limited Time Spent With Patient Time: Total time spent is greater than 50% in coordination of care (as documented) at patient's floor/unit and/or counseling patient:
[2022-02-13] MEDS: MELATONIN 3 MG TABLET PO PRN (23:44)
[2022-02-13] MEDS: QUEtiapine 25 MG TABLET PO PRN (23:44)
[2022-02-14 07:07] LABS: ALT/SGPT 53 U/L (<40); AST/SGOT 60 U/L (<32); Albumin 3.5 gm/dL (3.2-5.2); Albumin/Globulin Ratio 1.7 (1.0-2.3); Alkaline Phosphatase 104 U/L (39-117); Bilirubin,Direct < 0.2 mg/dL (0-0.3); Bilirubin,Total 0.2 mg/dL (0.1-1.0); Blood Urea Nitrogen 12 mg/dL (8-23); Carbon Dioxide 30 mmol/L (22-30); Chloride 100 mmol/L (96-108); Globulin 2.1 gm/dL (2.2-3.7); Glomerular Filtration Rate 84; Glucose 101 mg/dL (70-105); Lactate Dehydrogenase 192 U/L (135-225); Phosphorous 3.5 mg/dL (2.5-4.5); Triglycerides 613 mg/dL (<150); Uric Acid 3.7 mg/dL (2.5-8.0)
[2022-02-14] MEDS: PANTOPRAZOLE 40 MG TABLET PO SCH (07:13)
[2022-02-14] MEDS: LEVOTHYROXINE 100 MCG TABLET PO SCH (07:13)
[2022-02-14] MEDS: INSULIN LISPRO 1 UNIT/0.01 ML UNIT SQ SCH ×4 (07:16→21:22)
[2022-02-14] MEDS ORDERED: ATORVASTATIN 10 MG TABLET PO ONE (07:29)
[2022-02-14] MEDS ORDERED: POTASSIUM CHLORIDE 20 MEQ TABLET PO ONE (07:30)
--- NOTE | 2022-02-14 07:32 | Internal Med Progress Note ---
SUBJECTIVE Subjective Patient information: Note initiated : 02/14/22 at 7:23 am Service Date, if different from initiated Date: [] Patient: Tennille Castillo 76 y/o F admitted on 02/07/22 for HYPRGLYEMIC. Chief Complaint: [] Interval history: 6-year-old female with a history of type 2 diabetes had a recurrent hospital admissions for DKA, chronic pancreatitis hypothyroidism, coronary artery disease hyperlipidemia who is present to the ER with a blood glucose of more than 500 and tiredness. Patient continued having chronic abdominal pain no significant worsening she also complaining of some lower abdominal pain and her urine analysis was positive for UTI and started on ceftriaxone in the ED patient had a recent admissions for the same and was supposed to be discharged to a rehab facility when finally patient ended up choosing going home and she failed home multiple times. ED physician seriously doubt her insulin management at home CODE STATUS discussed with the patient and she want to be limited intervention which includes CPR vasopressors defibrillation resynchronization shock as indicated but no intubation 02/08 Patient is feeling better Blood sugar is better controlled she had an episode of hypoglycemia I seriously doubt her insulin management at home she lives alone and appears to be weak and having abdominal pain from chronic pancreatitis We will continue titrating her long-acting insulin 02/09 Patient appears to be very weak Not participating much with the physical therapy Hypoglycemia improved Discussed with case management about probably needing placement in [place] discussed with the patient she refused to go to rehab and continued to fail at home and failing insulin management 02/10 Patient blood sugar is better controlled Patient was complaining of rectal spasm she takes hyoscyamine at home and continued Patient is willing to go to subacute rehab encourage her to work with physical therapy 02/11 Blood sugar control Patient able to work with physical therapy 02/12 Patient continues to refuse Lovenox Educated her Working with physical therapy 02/13 Patient is progressing well with physical therapy Pending SNF placement 02/14 Patient states poor sleep, no other new complaints. Hypoglycemic yesterday afte rnoon evening. Will adjust her morning Lantus. Hypertriglyceridemia, start ibrate. Review of Systems: denies headache/fever/chills/nausea/vomiting/chest or abdominal pain/cough/dyspnea/diarrhea. Otherwise see above. Constitutional Vitals: Vital Signs Temp Pulse Resp BP Pulse Ox 97.2 F 65 12 122/70 90 02/14/22 03:21 02/14/22 03:21 02/14/22 03:21 02/14/22 03:21 02/14/22 03:21 Period Temp Pulse Resp BP Sys/Rosario Pulse Ox Last 24 Hr 96.4 F-97.2 F 65-70 12-16 122-154/70-84 90-95 Intake and Output 02/13/22 02/14/22 02/14/22 21:59 05:59 13:59 Intake Total 480 290 Balance 480 290 Weight 75.795 kg Intake & Output: Intake & Output 02/13/22 02/14/22 02/14/22 21:59 05:59 13:59 Intake Total 480 290 Balance 480 290 Weight 75.795 kg Intake: Oral 480 290 Other: Meal Lunch Percent of Meal Consumed 100% Feeding Ability Independent # Voids 2 Exam: General: Alert, Awake, No acute Distress Eyes/N/T: EOMI, Head/Neck: neck supple, CV: RRR, No murmurs, Pulm: Clear b/l, no wheezing/rhonchi/rales Abd: soft, nontender, +BS x4 Ext: no clubbing/cyanosis/edema Neuro: Alert, no focal deficits, moves all extremities, Skin: warm/dry OBJ DATA Labs CBC & Chem 7: 02/07/22 15:41 02/14/22 05:18 Labs: Abnormal Lab Results 02/14/22 02/12/22 05:18 09:56 Potassium 3.2 L 3.0 L Glucose 314 H Calcium 8.5 L GGT 153 H AST 60 H 148 H ALT 53 H 73 H Total Protein 5.6 L 5.7 L Globulin 2.1 L Triglycerides 613 H Meds: Medications Acetaminophen (Acetaminophen 325 Mg Tablet) 650 mg PO Q4-6HP PRN; Protocol PRN Reason: Per Pain Protocol/Fever > 101 Last Admin: 02/12/22 19:44 Dose: 650 mg Documented by: Albuterol/Ipratropium (Ipratropium/Albuterol 3 Ml Ampul.Neb) 3 ml NEB Q4HRT PRN PRN Reason: Wheezing Bisacodyl (Bisacodyl 10 Mg Supp.Rect) 10 mg IN Q2-3DAYS PRN PRN Reason: Constipation Carvedilol (Carvedilol 12.5 Mg Tablet) 12.5 mg PO BIDCC [facility] Last Admin: 02/13/22 17:15 Dose: 12.5 mg Documented by: Dextrose (Dextrose 50% 50 Ml Vial) 0 ml IV UD PRN PRN Reason: Per Sliding Scale Last Admin: 02/08/22 05:28 Dose: 25 ml Documented by: Diagnostic Test (Pha) (Accu-Chek 1 Each Strip) 1 each FS ACHS [facility] Last Admin: 02/14/22 07:13 Dose: 1 each Documented by: Dicyclomine HCl (Dicyclomine 20 Mg Tablet) 20 mg PO QID PRN PRN Reason: abdominal discomfort Last Admin: 02/13/22 21:33 Dose: 20 mg Documented by: Duloxetine HCl (Duloxetine 30 Mg Capsule) 30 mg PO QDAY [facility] Last Admin: 02/13/22 08:31 Dose: 30 mg Documented by: Enoxaparin Sodium (Enoxaparin 30 Mg/0.3 Ml Syringe) 30 mg SQ DAILY [facility] Last Admin: 02/13/22 08:32 Dose: 30 mg Documented by: Gabapentin (Gabapentin 300 Mg Capsule) 300 mg PO TID [facility] Last Admin: 02/13/22 21:29 Dose: 300 mg Documented by: Glucose (Dextrose 31 Gm Oral.Susp) 15 gm PO PRN PRN PRN Reason: Hypoglycemia Hydralazine HCl (Hydralazine 20 Mg/Ml Vial) 10 mg IV Q4HP PRN PRN Reason: Hypertension Insulin Human Regular 50 unit/ (Sodium Chloride) 100.5 mls @ 2.93 mls/hr IV DUR [facility]; Protocol Insulin Glargine (Insulin Glargine, Human 1 Unit/0.01 Ml) 30 unit SQ BID [facility] Last Admin: 02/13/22 21:29 Dose: 30 units Documented by: Insulin Human Lispro (Insulin Lispro 1 Unit/0.01 Ml Unit) 0 unit SQ [facility]; Protocol Last Admin: 02/14/22 07:16 Dose: Not Given Documented by: Levofloxacin (Levofloxacin 750 Mg Tablet) 750 mg PO Q48H [facility] Last Admin: 02/13/22 08:41 Dose: 750 mg Documented by: Levothyroxine Sodium (Levothyroxine 100 Mcg Tablet) 100 mcg PO ACB [facility] Last Admin: 02/14/22 07:13 Dose: 100 mcg Documented by: Melatonin (Melatonin 3 Mg Tablet) 3 mg PO HSP PRN PRN Reason: Insomnia Last Admin: 02/13/22 23:44 Dose: 3 mg Documented by: Nitroglycerin (Nitroglycerin 0.4 Mg Tab.Subl) 0.4 mg SL Q5M PRN PRN Reason: Chest Pain Ondansetron HCl (Ondansetron 4 Mg/2 Ml Vial) 4 mg IV Q4-6HP PRN; Protocol PRN Reason: Nausea And Vomiting Pantoprazole Sodium (Pantoprazole 40 Mg Tablet) 40 mg PO QAMAC [facility] Last Admin: 02/14/22 07:13 Dose: 40 mg Documented by: Lipase-Protease- Amylase [Zenpep] 40, 000-126,000-168,000 Unit Cap 1 dose PO 0800,1100,1600 [facility] Last Admin: 02/13/22 15:51 Dose: 1 dose Documented by: Polyethylene Glycol (Polyethylene Glycol 3350 17 Gm Packet) 17 gm PO DAILYP PRN PRN Reason: Constipation Promethazine HCl (Promethazine 25 Mg/Ml Vial) 12.5 mg IV Q4-6HP PRN; Protocol PRN Reason: Nausea And Vomiting Propranolol HCl (Propranolol 10 Mg Tablet) 10 mg PO TID [facility] Last Admin: 02/13/22 21:29 Dose: 10 mg Documented by: Quetiapine Fumarate (Quetiapine 25 Mg Tablet) 12.5 mg PO HS PRN PRN Reason: iNSOMNIA-2nd option Last Admin: 02/13/22 23:44 Dose: 12.5 mg Documented by: Senna (Sennosides 1 Tablet) 2 tab PO HSP PRN PRN Reason: Constipation Tramadol HCl (Tramadol 50 Mg Tablet) 50 mg PO Q6HP PRN; Protocol PRN Reason: Pain Last Admin: 02/11/22 20:49 Dose: 50 mg Documented by: A/P Narrative A/P Narrative: A: #Diabetic ketoacidosis: -A1c 12.9 in December #SUDARSHAN: 2/2 diabetic ketoacidosis-improved #Hyponatremia due to hyperglycemia: improved #Poorly controlled insulin-dependent diabetes mellitus: #Coronary artery disease: stable #Hypothyroidism: #Chronic pancreatitis: #Transaminitis: #Hypertriglyceridemia: Was on statin in past but that was stopped due to elevated liver enzymes. -improving #Electrolyte d/o (hypokalemia): #Essential tremor: #UTI (Staph, mssa): Plan -started home basal(increase) and sliding scale -encourage her oral intake -Replace electrolytes as needed -Follow renal function and urine output -Continue home duloxetine/gabapentin/levothyroxine, -fenofibrate, monitor LFT's outpt -Continue her home pancreatic enzyme supplements -PT and OT -CM for SNF placement -DVT prophylaxis: Heparin SQ CODE STATUS: Limited Time Spent With Patient Time: Total time spent is greater than 50% in coordination of care (as documented) at patient's floor/unit and/or counseling patient: Total time spent with greater than 50% in coordination of care (as documented) at patient's floor/unit and/or counseling patient:: 35 - 50 minutes
[2022-02-14] MEDS: LIPASE PO SCH ×3 (08:05→15:54)
[2022-02-14] MEDS: PROTEASE PO SCH ×3 (08:05→15:54)
[2022-02-14] MEDS: AMYLASE PO SCH ×3 (08:05→15:54)
[2022-02-14] MEDS: CARVEDILOL 12.5 MG TABLET PO SCH ×2 (08:05→17:09)
[2022-02-14 08:17] LABS: HDL Cholesterol 44 mg/dL (>40); Non-HDL Cholesterol 269 mg/dL (<130); Triglycerides 607 mg/dL (<150)
[2022-02-14] MEDS: ENOXAPARIN 30 MG/0.3 ML SYRINGE SQ SCH (09:22)
[2022-02-14] MEDS: DULoxetine 30 MG CAPSULE PO SCH (09:22)
[2022-02-14] MEDS: INSULIN GLARGINE, HUMAN 1 UNIT/0.01 ML SQ SCH ×2 (09:22→21:28)
[2022-02-14] MEDS: GABAPENTIN 300 MG CAPSULE PO SCH ×3 (09:22→21:29)
[2022-02-14] MEDS: PROPRANOLOL 10 MG TABLET PO SCH ×3 (09:22→21:29)
[2022-02-14] MEDS: FENOFIBRATE 43 MG CAPSULE PO SCH (11:18)
[2022-02-14] MEDS: DICYCLOMINE 20 MG TABLET PO PRN (11:18)
[2022-02-14] MEDS: MELATONIN 3 MG TABLET PO SCH (21:29)
[2022-02-14] MEDS: ATORVASTATIN 20 MG TABLET PO SCH (21:29)
[2022-02-14] MEDS: QUEtiapine 25 MG TABLET PO PRN (21:38)
[2022-02-15 07:17] LABS: ALT/SGPT 48 U/L (<40); AST/SGOT 54 U/L (<32); Albumin 3.2 gm/dL (3.2-5.2); Albumin/Globulin Ratio 1.4 (1.0-2.3); Alkaline Phosphatase 89 U/L (39-117); Bilirubin,Direct < 0.2 mg/dL (0-0.3); Bilirubin,Total 0.2 mg/dL (0.1-1.0); Blood Urea Nitrogen 14 mg/dL (8-23); Calcium 8.9 mg/dL (8.6-10.4); Carbon Dioxide 32 mmol/L (22-30); Chloride 105 mmol/L (96-108); Globulin 2.3 gm/dL (2.2-3.7); Glomerular Filtration Rate 84; Glucose 60 mg/dL (70-105); Lactate Dehydrogenase 169 U/L (135-225); Phosphorous 3.8 mg/dL (2.5-4.5); Triglycerides 256 mg/dL (<150); Uric Acid 3.5 mg/dL (2.5-8.0)
[2022-02-15] MEDS: LEVOTHYROXINE 100 MCG TABLET PO SCH (07:20)
[2022-02-15] MEDS: PANTOPRAZOLE 40 MG TABLET PO SCH (07:21)
[2022-02-15] MEDS: INSULIN LISPRO 1 UNIT/0.01 ML UNIT SQ SCH ×4 (07:21→20:43)
--- NOTE | 2022-02-15 07:52 | Internal Med Progress Note ---
SUBJECTIVE Subjective Patient information: Note initiated : 02/15/22 at 7:48 am Service Date, if different from initiated Date: [] Patient: Tennille Castillo 76 y/o F admitted on 02/07/22 for HYPRGLYEMIC. Chief Complaint: [] Interval history: 6-year-old female with a history of type 2 diabetes had a recurrent hospital admissions for DKA, chronic pancreatitis hypothyroidism, coronary artery disease hyperlipidemia who is present to the ER with a blood glucose of more than 500 and tiredness. Patient continued having chronic abdominal pain no significant worsening she also complaining of some lower abdominal pain and her urine analysis was positive for UTI and started on ceftriaxone in the ED patient had a recent admissions for the same and was supposed to be discharged to a rehab facility when finally patient ended up choosing going home and she failed home multiple times. ED physician seriously doubt her insulin management at home CODE STATUS discussed with the patient and she want to be limited intervention which includes CPR vasopressors defibrillation resynchronization shock as indicated but no intubation 02/08 Patient is feeling better Blood sugar is better controlled she had an episode of hypoglycemia I seriously doubt her insulin management at home she lives alone and appears to be weak and having abdominal pain from chronic pancreatitis We will continue titrating her long-acting insulin 02/09 Patient appears to be very weak Not participating much with the physical therapy Hypoglycemia improved Discussed with case management about probably needing placement in [place] discussed with the patient she refused to go to rehab and continued to fail at home and failing insulin management 02/10 Patient blood sugar is better controlled Patient was complaining of rectal spasm she takes hyoscyamine at home and continued Patient is willing to go to subacute rehab encourage her to work with physical therapy 02/11 Blood sugar control Patient able to work with physical therapy 02/12 Patient continues to refuse Lovenox Educated her Working with physical therapy 02/13 Patient is progressing well with physical therapy Pending SNF placement 02/14 Patient states poor sleep, no other new complaints. Hypoglycemic yesterday afte rnoon evening. Will adjust her morning Lantus. Hypertriglyceridemia, start fibrate. 02/15 Patient seems to sleep better. Complains of mild headache. Blood glucose in the afternoon evening mildly improving Triglycerides better today. Review of Systems: denies fever/chills/nausea/vomiting/chest or abdominal pain/cough/dyspnea/diarrhea. Otherwise see above. Constitutional Vitals: Vital Signs Temp Pulse Resp BP Pulse Ox 96.7 F L 45 L 12 108/63 95 02/15/22 07:45 02/15/22 07:45 02/15/22 07:45 02/15/22 07:45 02/15/22 07:45 Period Temp Pulse Resp BP Sys/Rosario Pulse Ox Last 24 Hr 96.4 F-97.9 F 45-94 12-12 102-154/63-80 93-97 Intake and Output 02/14/22 02/15/22 02/15/22 21:59 05:59 13:59 Intake Total 595 946 Balance 595 946 Weight 75.568 kg Intake & Output: Intake & Output 02/14/22 02/15/22 02/15/22 21:59 05:59 13:59 Intake Total 595 946 Balance 595 946 Weight 75.568 kg Intake: Oral 595 946 Other: # Voids 1 1 Exam: General: Alert, Awake, No acute Distress Eyes/N/T: EOMI, Head/Neck: neck supple, CV: RRR, 2/6 SM Pulm: Clear b/l, no wheezing/rhonchi/rales Abd: soft, nontender, +BS x4 Ext: no clubbing/cyanosis/edema Neuro: Alert, no focal deficits, moves all extremities, Skin: warm/dry OBJ DATA Labs CBC & Chem 7: 02/07/22 15:41 02/15/22 05:34 Labs: Abnormal Lab Results 02/15/22 02/14/22 02/14/22 05:34 05:18 05:18 Potassium 3.2 L Carbon Dioxide 32 H Anion Gap 5.0 L Glucose 60 L Calcium GGT 130 H 153 H AST 54 H 60 H ALT 48 H 53 H Total Protein 5.5 L 5.6 L Globulin 2.1 L Triglycerides 256 H 607 H 613 H Cholesterol 313 H Non-HDL Cholesterol 269 H 02/12/22 09:56 Potassium 3.0 L Carbon Dioxide Anion Gap Glucose 314 H Calcium 8.5 L GGT AST 148 H ALT 73 H Total Protein 5.7 L Globulin Triglycerides Cholesterol Non-HDL Cholesterol Meds: Medications Acetaminophen (Acetaminophen 325 Mg Tablet) 650 mg PO Q4-6HP PRN; Protocol PRN Reason: Per Pain Protocol/Fever > 101 Last Admin: 02/12/22 19:44 Dose: 650 mg Documented by: Albuterol/Ipratropium (Ipratropium/Albuterol 3 Ml Ampul.Neb) 3 ml NEB Q4HRT PRN PRN Reason: Wheezing Atorvastatin Calcium (Atorvastatin 20 Mg Tablet) 20 mg PO HS REPLACED BY [facility] Last Admin: 02/14/22 21:29 Dose: 20 mg Documented by: Bisacodyl (Bisacodyl 10 Mg Supp.Rect) 10 mg AK Q2-3DAYS PRN PRN Reason: Constipation Carvedilol (Carvedilol 12.5 Mg Tablet) 12.5 mg PO BIDCC REPLACED BY [facility] Last Admin: 02/14/22 17:09 Dose: 12.5 mg Documented by: Dextrose (Dextrose 50% 50 Ml Vial) 0 ml IV UD PRN PRN Reason: Per Sliding Scale Last Admin: 02/08/22 05:28 Dose: 25 ml Documented by: Diagnostic Test (Pha) (Accu-Chek 1 Each Strip) 1 each FS ACHS REPLACED BY [facility] Last Admin: 02/15/22 07:15 Dose: 1 each Documented by: Dicyclomine HCl (Dicyclomine 20 Mg Tablet) 20 mg PO QID PRN PRN Reason: abdominal discomfort Last Admin: 02/14/22 11:18 Dose: 20 mg Documented by: Duloxetine HCl (Duloxetine 30 Mg Capsule) 30 mg PO QDAY REPLACED BY [facility] Last Admin: 02/14/22 09:22 Dose: 30 mg Documented by: Enoxaparin Sodium (Enoxaparin 30 Mg/0.3 Ml Syringe) 30 mg SQ DAILY [facility]PL[facility] Last Admin: 02/14/22 09:22 Dose: 30 mg Documented by: Fenofibrate (Fenofibrate 43 Mg Capsule) 86 mg PO DAILY REPL[facility] BY [facility] Last Admin: 02/14/22 11:18 Dose: 86 mg Documented by: Gabapentin (Gabapentin 300 Mg Capsule) 300 mg PO TID REPLACED BY [facility] Last Admin: 02/14/22 21:29 Dose: 300 mg Documented by: Glucose (Dextrose 31 Gm Oral.Susp) 15 gm PO PRN PRN PRN Reason: Hypoglycemia Hydralazine HCl (Hydralazine 20 Mg/Ml Vial) 10 mg IV Q4HP PRN PRN Reason: Hypertension Insulin Human Regular 50 unit/ (Sodium Chloride) 100.5 mls @ 2.93 mls/hr IV DUR REPLACED BY [facility]; Protocol Insulin Glargine (Insulin Glargine, Human 1 Unit/0.01 Ml) 40 unit SQ DAILY [facility] Last Admin: 02/14/22 09:22 Dose: 40 units Documented by: Insulin Glargine (Insulin Glargine, Human 1 Unit/0.01 Ml) 30 unit SQ HS REPLACED BY [facility] Last Admin: 02/14/22 21:28 Dose: 30 units Documented by: Insulin Human Lispro (Insulin Lispro 1 Unit/0.01 Ml Unit) 0 unit SQ ACHS REPLACED [facility]; Protocol Last Admin: 02/15/22 07:21 Dose: Not Given Documented by: Levothyroxine Sodium (Levothyroxine 100 Mcg Tablet) 100 mcg PO ACB REPLACED BY [facility] Last Admin: 02/15/22 07:20 Dose: 100 mcg Documented by: Melatonin (Melatonin 3 Mg Tablet) 3 mg PO HSP PRN PRN Reason: Insomnia Last Admin: 02/13/22 23:44 Dose: 3 mg Documented by: Melatonin (Melatonin 3 Mg Tablet) 3 mg PO QHS REPLACED BY [facility] Last Admin: 02/14/22 21:29 Dose: 3 mg Documented by: Nitroglycerin (Nitroglycerin 0.4 Mg Tab.Subl) 0.4 mg SL Q5M PRN PRN Reason: Chest Pain Ondansetron HCl (Ondansetron 4 Mg/2 Ml Vial) 4 mg IV Q4-6HP PRN; Protocol PRN Reason: Nausea And Vomiting Pantoprazole Sodium (Pantoprazole 40 Mg Tablet) 40 mg PO QAMAC REPLACED BY [facility] Last Admin: 02/15/22 07:21 Dose: 40 mg Documented by: Lipase-Protease- Amylase [Zenpep] 40, 000-126,000-168,000 Unit Cap 1 dose PO 0800,1100,1600 REPLACED BY [facility] Last Admin: 02/14/22 15:54 Dose: 1 dose Documented by: Polyethylene Glycol (Polyethylene Glycol 3350 17 Gm Packet) 17 gm PO DAILYP PRN PRN Reason: Constipation Promethazine HCl (Promethazine 25 Mg/Ml Vial) 12.5 mg IV Q4-6HP PRN; Protocol PRN Reason: Nausea And Vomiting Propranolol HCl (Propranolol 10 Mg Tablet) 10 mg PO TID REPLACED BY [facility] Last Admin: 02/14/22 21:29 Dose: 10 mg Documented by: Quetiapine Fumarate (Quetiapine 25 Mg Tablet) 12.5 mg PO HS PRN PRN Reason: iNSOMNIA-2nd option Last Admin: 02/14/22 21:38 Dose: 12.5 mg Documented by: Senna (Sennosides 1 Tablet) 2 tab PO HSP PRN PRN Reason: Constipation Tramadol HCl (Tramadol 50 Mg Tablet) 50 mg PO Q6HP PRN; Protocol PRN Reason: Pain Last Admin: 02/11/22 20:49 Dose: 50 mg Documented by: A/P Narrative A/P Narrative: A: #Diabetic ketoacidosis: -A1c 12.9 in December #SUDARSHAN: 2/2 diabetic ketoacidosis-improved #Hyponatremia due to hyperglycemia: improved #Poorly controlled insulin-dependent diabetes mellitus: #Coronary artery disease: stable #Hypothyroidism: #Chronic pancreatitis: #Transaminitis: slowly improving #Hypertriglyceridemia: Was on statin in past but that was stopped due to elevate d liver enzymes. -improving #Electrolyte d/o (hypokalemia): #Essential tremor: #UTI (Staph, mssa): completed abx course Plan -started home basal(increased morning dose) and sliding scale -encourage her oral intake -Replace electrolytes as needed -Continue home duloxetine/gabapentin/levothyroxine -started fenofibrate, monitor LFT's outpt -decrease BB for low normal Bp -Continue her home pancreatic enzyme supplements -PT and OT -CM for SNF placement -DVT prophylaxis: Heparin SQ CODE STATUS: Limited Time Spent With Patient Time: Total time spent is greater than 50% in coordination of care (as documented) at patient's floor/unit and/or counseling patient: Total time spent with greater than 50% in coordination of care (as documented) at patient's floor/unit and/or counseling patient:: 25 - 35 minutes
[2022-02-15] MEDS: GABAPENTIN 300 MG CAPSULE PO SCH ×3 (08:23→20:53)
[2022-02-15] MEDS: PROPRANOLOL 10 MG TABLET PO SCH ×3 (08:23→20:53)
[2022-02-15] MEDS: DULoxetine 30 MG CAPSULE PO SCH (08:23)
[2022-02-15] MEDS: FENOFIBRATE 43 MG CAPSULE PO SCH (08:23)
[2022-02-15] MEDS: CARVEDILOL 6.25 MG TABLET PO SCH ×2 (08:23→17:05)
[2022-02-15] MEDS: INSULIN GLARGINE, HUMAN 1 UNIT/0.01 ML SQ SCH ×2 (08:25→20:53)
[2022-02-15] MEDS: ENOXAPARIN 30 MG/0.3 ML SYRINGE SQ SCH (08:27)
[2022-02-15] MEDS: DICYCLOMINE 20 MG TABLET PO PRN ×2 (08:33→17:25)
[2022-02-15] MEDS: AMYLASE PO SCH ×3 (08:34→16:25)
[2022-02-15] MEDS: LIPASE PO SCH ×3 (08:34→16:25)
[2022-02-15] MEDS: PROTEASE PO SCH ×3 (08:34→16:25)
[2022-02-15] MEDS: ACETAMINOPHEN 325 MG TABLET PO PRN (13:25)
[2022-02-15] MEDS: ATORVASTATIN 20 MG TABLET PO SCH (20:53)
[2022-02-15] MEDS: MELATONIN 3 MG TABLET PO SCH (20:53)
[2022-02-16] MEDS: DICYCLOMINE 20 MG TABLET PO PRN ×4 (01:22→20:37)
[2022-02-16] MEDS: INSULIN LISPRO 1 UNIT/0.01 ML UNIT SQ SCH ×4 (07:11→20:36)
[2022-02-16] MEDS: PANTOPRAZOLE 40 MG TABLET PO SCH (07:12)
[2022-02-16] MEDS: CARVEDILOL 6.25 MG TABLET PO SCH ×2 (07:12→16:32)
[2022-02-16] MEDS: LEVOTHYROXINE 100 MCG TABLET PO SCH (07:12)
--- NOTE | 2022-02-16 07:15 | Internal Med Progress Note ---
SUBJECTIVE Subjective Patient information: Note initiated : 02/16/22 at 7:13 am Service Date, if different from initiated Date: [] Patient: Tennille Castillo 76 y/o F admitted on 02/07/22 for HYPRGLYEMIC. Chief Complaint: [] Interval history: 6-year-old female with a history of type 2 diabetes had a recurrent hospital admissions for DKA, chronic pancreatitis hypothyroidism, coronary artery disease hyperlipidemia who is present to the ER with a blood glucose of more than 500 and tiredness. Patient continued having chronic abdominal pain no significant worsening she also complaining of some lower abdominal pain and her urine analysis was positive for UTI and started on ceftriaxone in the ED patient had a recent admissions for the same and was supposed to be discharged to a rehab facility when finally patient ended up choosing going home and she failed home multiple times. ED physician seriously doubt her insulin management at home CODE STATUS discussed with the patient and she want to be limited intervention which includes CPR vasopressors defibrillation resynchronization shock as indicated but no intubation 02/08 Patient is feeling better Blood sugar is better controlled she had an episode of hypoglycemia I seriously doubt her insulin management at home she lives alone and appears to be weak and having abdominal pain from chronic pancreatitis We will continue titrating her long-acting insulin 02/09 Patient appears to be very weak Not participating much with the physical therapy Hypoglycemia improved Discussed with case management about probably needing placement in [place] discussed with the patient she refused to go to rehab and continued to fail at home and failing insulin management 02/10 Patient blood sugar is better controlled Patient was complaining of rectal spasm she takes hyoscyamine at home and continued Patient is willing to go to subacute rehab encourage her to work with physical therapy 02/11 Blood sugar control Patient able to work with physical therapy 02/12 Patient continues to refuse Lovenox Educated her Working with physical therapy 02/13 Patient is progressing well with physical therapy Pending SNF placement 02/14 Patient states poor sleep, no other new complaints. Hypoglycemic yesterday afte rnoon evening. Will adjust her morning Lantus. Hypertriglyceridemia, start fibrate. 02/15 Patient seems to sleep better. Complains of mild headache. Blood glucose in the afternoon evening mildly improving Triglycerides better today. 02/16 Patient states poor sleep last night. Patient hypoglycemic this morning. Will decrease her evening Lantus. Complains of headache but otherwise no new complaints. Review of Systems: denies fever/chills/nausea/vomiting/chest or abdominal pain/cough/dyspnea/di arrhea. Otherwise see above. Constitutional Vitals: Vital Signs Temp Pulse Resp BP Pulse Ox 97.4 F 62 16 127/62 95 02/16/22 03:15 02/16/22 03:15 02/16/22 03:15 02/16/22 03:15 02/16/22 03:15 Period Temp Pulse Resp BP Sys/Rosario Pulse Ox Last 24 Hr 96.7 F-98.5 F 45-74 12-20 108-146/62-76 94-96 Intake and Output 02/15/22 02/16/22 02/16/22 21:59 05:59 13:59 Intake Total 650 Balance 650 Weight 78.471 kg Intake & Output: Intake & Output 02/15/22 02/16/22 02/16/22 21:59 05:59 13:59 Intake Total 650 Balance 650 Weight 78.471 kg Intake: Oral 650 Other: Meal 2x peanutbutter & 4x crackers nicole Percent of Meal Consumed 100% 100% Feeding Ability Independent Independent Stool Size Small Stool Consistency Soft # Voids 1 1 # Bowel Movements 1 Exam: General: Alert, Awake, No acute Distress Eyes/N/T: EOMI, Head/Neck: neck supple, CV: RRR, 2/6 SM Pulm: Clear b/l, no wheezing/rhonchi/rales Abd: soft, nontender, +BS x4 Ext: no clubbing/cyanosis/edema Neuro: Alert, no focal deficits, moves all extremities, Skin: warm/dry OBJ DATA Labs CBC & Chem 7: 02/07/22 15:41 02/16/22 05:10 Labs: Abnormal Lab Results 02/15/22 02/14/22 02/14/22 05:34 05:18 05:18 Potassium 3.2 L Carbon Dioxide 32 H Anion Gap 5.0 L Glucose 60 L GGT 130 H 153 H AST 54 H 60 H ALT 48 H 53 H Total Protein 5.5 L 5.6 L Globulin 2.1 L Triglycerides 256 H 607 H 613 H Cholesterol 313 H Non-HDL Cholesterol 269 H Meds: Medications Acetaminophen (Acetaminophen 325 Mg Tablet) 650 mg PO Q4-6HP PRN; Protocol PRN Reason: Per Pain Protocol/Fever > 101 Last Admin: 02/15/22 13:25 Dose: 650 mg Documented by: Albuterol/Ipratropium (Ipratropium/Albuterol 3 Ml Ampul.Neb) 3 ml NEB Q4HRT PRN PRN Reason: Wheezing Atorvastatin Calcium (Atorvastatin 20 Mg Tablet) 20 mg PO HS [facility] Last Admin: 02/15/22 20:53 Dose: 20 mg Documented by: Bisacodyl (Bisacodyl 10 Mg Supp.Rect) 10 mg HI Q2-3DAYS PRN PRN Reason: Constipation Carvedilol (Carvedilol 6.25 Mg Tablet) 6.25 mg PO BIDCC [facility] Last Admin: 02/15/22 17:05 Dose: 6.25 mg Documented by: Dextrose (Dextrose 50% 50 Ml Vial) 0 ml IV UD PRN PRN Reason: Per Sliding Scale Last Admin: 02/08/22 05:28 Dose: 25 ml Documented by: Diagnostic Test (Pha) (Accu-Chek 1 Each Strip) 1 each FS ACHS [facility] Last Admin: 02/16/22 05:01 Dose: 1 each Documented by: Dicyclomine HCl (Dicyclomine 20 Mg Tablet) 20 mg PO QID PRN PRN Reason: abdominal discomfort Last Admin: 02/16/22 01:22 Dose: 20 mg Documented by: Duloxetine HCl (Duloxetine 30 Mg Capsule) 30 mg PO QDAY [facility] Last Admin: 02/15/22 08:23 Dose: 30 mg Documented by: Enoxaparin Sodium (Enoxaparin 30 Mg/0.3 Ml Syringe) 30 mg SQ DAILY [facility] Last Admin: 02/15/22 08:27 Dose: Not Given Documented by: Fenofibrate (Fenofibrate 43 Mg Capsule) 86 mg PO DAILY [facility] Last Admin: 02/15/22 08:23 Dose: 86 mg Documented by: Gabapentin (Gabapentin 300 Mg Capsule) 300 mg PO TID [facility] Last Admin: 02/15/22 20:53 Dose: 300 mg Documented by: Glucose (Dextrose 31 Gm Oral.Susp) 15 gm PO PRN PRN PRN Reason: Hypoglycemia Hydralazine HCl (Hydralazine 20 Mg/Ml Vial) 10 mg IV Q4HP PRN PRN Reason: Hypertension Insulin Human Regular 50 unit/ (Sodium Chloride) 100.5 mls @ 2.93 mls/hr IV DUR [facility]; Protocol Insulin Glargine (Insulin Glargine, Human 1 Unit/0.01 Ml) 40 unit SQ DAILY [facility] Last Admin: 02/15/22 08:25 Dose: 40 units Documented by: Insulin Glargine (Insulin Glargine, Human 1 Unit/0.01 Ml) 30 unit SQ HS [facility] Last Admin: 02/15/22 20:53 Dose: 30 units Documented by: Insulin Human Lispro (Insulin Lispro 1 Unit/0.01 Ml Unit) 0 unit SQ ACHS [facility]; Protocol Last Admin: 02/15/22 20:43 Dose: Not Given Documented by: Levothyroxine Sodium (Levothyroxine 100 Mcg Tablet) 100 mcg PO ACB [facility] Last Admin: 02/15/22 07:20 Dose: 100 mcg Documented by: Melatonin (Melatonin 3 Mg Tablet) 3 mg PO HSP PRN PRN Reason: Insomnia Last Admin: 02/13/22 23:44 Dose: 3 mg Documented by: Melatonin (Melatonin 3 Mg Tablet) 3 mg PO QHS [facility] Last Admin: 02/15/22 20:53 Dose: 3 mg Documented by: Nitroglycerin (Nitroglycerin 0.4 Mg Tab.Subl) 0.4 mg SL Q5M PRN PRN Reason: Chest Pain Ondansetron HCl (Ondansetron 4 Mg/2 Ml Vial) 4 mg IV Q4-6HP PRN; Protocol PRN Reason: Nausea And Vomiting Pantoprazole Sodium (Pantoprazole 40 Mg Tablet) 40 mg PO QAMAC [facility] Last Admin: 02/15/22 07:21 Dose: 40 mg Documented by: Lipase-Protease- Amylase [Zenpep] 40, 000-126,000-168,000 Unit Cap 1 dose PO 0800,1100,1600 [facility] Last Admin: 02/15/22 16:25 Dose: 1 dose Documented by: Polyethylene Glycol (Polyethylene Glycol 3350 17 Gm Packet) 17 gm PO DAILYP PRN PRN Reason: Constipation Promethazine HCl (Promethazine 25 Mg/Ml Vial) 12.5 mg IV Q4-6HP PRN; Protocol PRN Reason: Nausea And Vomiting Propranolol HCl (Propranolol 10 Mg Tablet) 10 mg PO TID [facility] Last Admin: 02/15/22 20:53 Dose: 10 mg Documented by: Quetiapine Fumarate (Quetiapine 25 Mg Tablet) 12.5 mg PO HS PRN PRN Reason: iNSOMNIA-2nd option Last Admin: 02/14/22 21:38 Dose: 12.5 mg Documented by: Senna (Sennosides 1 Tablet) 2 tab PO HSP PRN PRN Reason: Constipation Last Admin: 02/15/22 20:53 Dose: 2 tab Documented by: Tramadol HCl (Tramadol 50 Mg Tablet) 50 mg PO Q6HP PRN; Protocol PRN Reason: Pain Last Admin: 02/11/22 20:49 Dose: 50 mg Documented by: A/P Narrative A/P Narrative: A: #Diabetic ketoacidosis: -A1c 12.9 in December -Hypoglycemic this morning #Poorly controlled insulin-dependent diabetes mellitus: #SUDARSHAN: 2/2 diabetic ketoacidosis-improved #Hyponatremia due to hyperglycemia: improved #Coronary artery disease: stable #Hypothyroidism: #Chronic pancreatitis: #Transaminitis: slowly improving #Hypertriglyceridemia: Was on statin in past but that was stopped due to elevated liver enzymes. -improving #Electrolyte d/o (hypokalemia): #Essential tremor: #UTI (Stap, mssa): completed abx course Plan -started home basal(increased morning dose and now decrease evening dose) and sliding scale -Replace electrolytes as needed -Continue home duloxetine/gabapentin/levothyroxine -started fenofibrate, monitor LFT's outpt -decreased BB for low normal Bp -Continue her home pancreatic enzyme supplements -PT and OT -CM for SNF placement -DVT prophylaxis: Heparin SQ CODE STATUS: Limited Time Spent With Patient Time: Total time spent is greater than 50% in coordination of care (as documented) at patient's floor/unit and/or counseling patient: Total time spent with greater than 50% in coordination of care (as documented) at patient's floor/unit and/or counseling patient:: 25 - 35 minutes
[2022-02-16 08:04] LABS: ALT/SGPT 46 U/L (<40); AST/SGOT 64 U/L (<32); Albumin 3.4 gm/dL (3.2-5.2); Albumin/Globulin Ratio 1.7 (1.0-2.3); Alkaline Phosphatase 84 U/L (39-117); Bilirubin,Direct < 0.2 mg/dL (0-0.3); Bilirubin,Total 0.2 mg/dL (0.1-1.0); Blood Urea Nitrogen 15 mg/dL (8-23); Calcium 8.6 mg/dL (8.6-10.4); Carbon Dioxide 30 mmol/L (22-30); Chloride 102 mmol/L (96-108); Glomerular Filtration Rate 88; Glucose 72 mg/dL (70-105); Lactate Dehydrogenase 195 U/L (135-225); Phosphorous 3.2 mg/dL (2.5-4.5); Triglycerides 157 mg/dL (<150)
[2022-02-16] MEDS: DULoxetine 30 MG CAPSULE PO SCH (08:05)
[2022-02-16] MEDS: AMYLASE PO SCH ×3 (08:05→15:19)
[2022-02-16] MEDS: PROTEASE PO SCH ×3 (08:05→15:19)
[2022-02-16] MEDS: LIPASE PO SCH ×3 (08:05→15:19)
[2022-02-16] MEDS: PROPRANOLOL 10 MG TABLET PO SCH ×3 (08:05→20:29)
[2022-02-16] MEDS: GABAPENTIN 300 MG CAPSULE PO SCH ×3 (08:05→20:30)
[2022-02-16] MEDS: FENOFIBRATE 43 MG CAPSULE PO SCH (08:05)
[2022-02-16] MEDS: ENOXAPARIN 30 MG/0.3 ML SYRINGE SQ SCH (08:06)
[2022-02-16] MEDS: INSULIN GLARGINE, HUMAN 1 UNIT/0.01 ML SQ SCH (08:06)
[2022-02-16] MEDS: ATORVASTATIN 20 MG TABLET PO SCH (20:29)
[2022-02-16] MEDS: MELATONIN 3 MG TABLET PO SCH (20:30)
[2022-02-16] MEDS: QUEtiapine 25 MG TABLET PO PRN (20:37)
[2022-02-16] MEDS ORDERED: INSULIN GLARGINE, HUMAN 1 UNIT/0.01 ML SQ SCH (21:00)
--- NOTE | 2022-02-17 07:30 | Internal Med Progress Note ---
SUBJECTIVE Subjective Patient information: Note initiated : 02/17/22 at 7:27 am Service Date, if different from initiated Date: [] Patient: Tennille Castillo 76 y/o F admitted on 02/07/22 for HYPRGLYEMIC. Chief Complaint: [] Interval history: 6-year-old female with a history of type 2 diabetes had a recurrent hospital admissions for DKA, chronic pancreatitis hypothyroidism, coronary artery disease hyperlipidemia who is present to the ER with a blood glucose of more than 500 and tiredness. Patient continued having chronic abdominal pain no significant worsening she also complaining of some lower abdominal pain and her urine analysis was positive for UTI and started on ceftriaxone in the ED patient had a recent admissions for the same and was supposed to be discharged to a rehab facility when finally patient ended up choosing going home and she failed home multiple times. ED physician seriously doubt her insulin management at home CODE STATUS discussed with the patient and she want to be limited intervention which includes CPR vasopressors defibrillation resynchronization shock as indicated but no intubation 02/08 Patient is feeling better Blood sugar is better controlled she had an episode of hypoglycemia I seriously doubt her insulin management at home she lives alone and appears to be weak and having abdominal pain from chronic pancreatitis We will continue titrating her long-acting insulin 02/09 Patient appears to be very weak Not participating much with the physical therapy Hypoglycemia improved Discussed with case management about probably needing placement in [place] discussed with the patient she refused to go to rehab and continued to fail at home and failing insulin management 02/10 Patient blood sugar is better controlled Patient was complaining of rectal spasm she takes hyoscyamine at home and continued Patient is willing to go to subacute rehab encourage her to work with physical therapy 02/11 Blood sugar control Patient able to work with physical therapy 02/12 Patient continues to refuse Lovenox Educated her Working with physical therapy 02/13 Patient is progressing well with physical therapy Pending SNF placement 02/14 Patient states poor sleep, no other new complaints. Hypoglycemic yesterday afte rnoon evening. Will adjust her morning Lantus. Hypertriglyceridemia, start fibrate. 02/15 Patient seems to sleep better. Complains of mild headache. Blood glucose in the afternoon evening mildly improving Triglycerides better today. 02/16 Patient states poor sleep last night. Patient hypoglycemic this morning. Will decrease her evening Lantus. Complains of headache but otherwise no new complaints. 02/17 Blood sugar again in the morning. We will check to see if she is getting a nighttime snack. She was a bit lightheaded with hypoglycemia. able to confirm patient is not getting nighttime snack. Will instruct staff accordingly. 02/18 Review of Systems: denies fever/chills/nausea/vomiting/chest or abdominal pain/cough/dyspnea/diarrhea. Otherwise see above. Constitutional Vitals: Vital Signs Temp Pulse Resp BP Pulse Ox 96.8 F L 62 18 122/59 98 02/17/22 07:21 02/17/22 07:21 02/17/22 07:21 02/17/22 07:21 02/17/22 07:21 Period Temp Pulse Resp BP Sys/Rosario Pulse Ox Last 24 Hr 96.8 F-98.7 F 62-74 14-18 122-160/58-78 93-98 Intake and Output 02/16/22 02/17/22 02/17/22 21:59 05:59 13:59 Intake Total 800 240 Balance 800 240 Weight 77.746 kg Intake & Output: Intake & Output 02/16/22 02/17/22 02/17/22 21:59 05:59 13:59 Intake Total 800 240 Balance 800 240 Weight 77.746 kg Intake: Oral 800 240 Other: Meal Lunch Percent of Meal Consumed 100% Feeding Ability Independent # Voids 3 2 # Bowel Movements 1 Exam: General: Alert, Awake, No acute Distress Eyes/N/T: EOMI, Head/Neck: neck supple, CV: RRR, 2/6 SM Pulm: Clear b/l, no wheezing/rhonchi/rales Abd: soft, nontender, +BS x4 Ext: no clubbing/cyanosis/edema Neuro: Alert, no focal deficits, moves all extremities, Skin: warm/dry OBJ DATA Labs CBC & Chem 7: 02/07/22 15:41 02/16/22 05:10 Labs: Abnormal Lab Results 02/16/22 02/15/22 02/14/22 05:10 05:34 05:18 Carbon Dioxide 32 H Anion Gap 5.0 L Glucose 60 L GGT 126 H 130 H AST 64 H 54 H ALT 46 H 48 H Total Protein 5.4 L 5.5 L Globulin 2.0 L Triglycerides 157 H 256 H 607 H Cholesterol 313 H Non-HDL Cholesterol 269 H Meds: Medications Acetaminophen (Acetaminophen 325 Mg Tablet) 650 mg PO Q4-6HP PRN; Protocol PRN Reason: Per Pain Protocol/Fever > 101 Last Admin: 02/15/22 13:25 Dose: 650 mg Documented by: Albuterol/Ipratropium (Ipratropium/Albuterol 3 Ml Ampul.Neb) 3 ml NEB Q4HRT PRN PRN Reason: Wheezing Atorvastatin Calcium (Atorvastatin 20 Mg Tablet) 20 mg PO HS [facility] Last Admin: 02/16/22 20:29 Dose: 20 mg Documented by: Bisacodyl (Bisacodyl 10 Mg Supp.Rect) 10 mg AR Q2-3DAYS PRN PRN Reason: Constipation Carvedilol (Carvedilol 6.25 Mg Tablet) 6.25 mg PO BIDCC [facility] Last Admin: 02/16/22 16:32 Dose: 6.25 mg Documented by: Dextrose (Dextrose 50% 50 Ml Vial) 0 ml IV UD PRN PRN Reason: Per Sliding Scale Last Admin: 02/08/22 05:28 Dose: 25 ml Documented by: Diagnostic Test (Pha) (Accu-Chek 1 Each Strip) 1 each FS ACHS [facility] Last Admin: 02/17/22 07:16 Dose: 1 each Documented by: Dicyclomine HCl (Dicyclomine 20 Mg Tablet) 20 mg PO QID PRN PRN Reason: abdominal discomfort Last Admin: 02/16/22 20:37 Dose: 20 mg Documented by: Duloxetine HCl (Duloxetine 30 Mg Capsule) 30 mg PO QDAY [facility] Last Admin: 02/16/22 08:05 Dose: 30 mg Documented by: Enoxaparin Sodium (Enoxaparin 30 Mg/0.3 Ml Syringe) 30 mg SQ DAILY [facility] Last Admin: 02/16/22 08:06 Dose: Not Given Documented by: Fenofibrate (Fenofibrate 43 Mg Capsule) 86 mg PO DAILY [facility] Last Admin: 02/16/22 08:05 Dose: 86 mg Documented by: Gabapentin (Gabapentin 300 Mg Capsule) 300 mg PO TID [facility] Last Admin: 02/16/22 20:30 Dose: 300 mg Documented by: Glucose (Dextrose 31 Gm Oral.Susp) 15 gm PO PRN PRN PRN Reason: Hypoglycemia Hydralazine HCl (Hydralazine 20 Mg/Ml Vial) 10 mg IV Q4HP PRN PRN Reason: Hypertension Insulin Human Regular 50 unit/ (Sodium Chloride) 100.5 mls @ 2.93 mls/hr IV DUR [facility]; Protocol Insulin Glargine (Insulin Glargine, Human 1 Unit/0.01 Ml) 40 unit SQ DAILY [facility] Last Admin: 02/16/22 08:06 Dose: 40 units Documented by: Insulin Glargine (Insulin Glargine, Human 1 Unit/0.01 Ml) 25 unit SQ HS [facility] Last Admin: 02/16/22 20:30 Dose: 25 unit Documented by: Insulin Human Lispro (Insulin Lispro 1 Unit/0.01 Ml Unit) 0 unit SQ ACHS [facility]; Protocol Last Admin: 02/16/22 20:36 Dose: 8 units Documented by: Levothyroxine Sodium (Levothyroxine 100 Mcg Tablet) 100 mcg PO ACB [facility] Last Admin: 02/16/22 07:12 Dose: 100 mcg Documented by: Melatonin (Melatonin 3 Mg Tablet) 3 mg PO HSP PRN PRN Reason: Insomnia Last Admin: 02/13/22 23:44 Dose: 3 mg Documented by: Melatonin (Melatonin 3 Mg Tablet) 3 mg PO QHS [facility] Last Admin: 02/16/22 20:30 Dose: 3 mg Documented by: Nitroglycerin (Nitroglycerin 0.4 Mg Tab.Subl) 0.4 mg SL Q5M PRN PRN Reason: Chest Pain Ondansetron HCl (Ondansetron 4 Mg/2 Ml Vial) 4 mg IV Q4-6HP PRN; Protocol PRN Reason: Nausea And Vomiting Pantoprazole Sodium (Pantoprazole 40 Mg Tablet) 40 mg PO QAMAC [facility] Last Admin: 02/16/22 07:12 Dose: 40 mg Documented by: Lipase-Protease- Amylase [Zenpep] 40, 000-126,000-168,000 Unit Cap 1 dose PO 0800,1100,1600 [facility] Last Admin: 02/16/22 15:19 Dose: 1 dose Documented by: Polyethylene Glycol (Polyethylene Glycol 3350 17 Gm Packet) 17 gm PO DAILYP PRN PRN Reason: Constipation Promethazine HCl (Promethazine 25 Mg/Ml Vial) 12.5 mg IV Q4-6HP PRN; Protocol PRN Reason: Nausea And Vomiting Propranolol HCl (Propranolol 10 Mg Tablet) 10 mg PO TID PEG Last Admin: 02/16/22 20:29 Dose: 10 mg Documented by: Quetiapine Fumarate (Quetiapine 25 Mg Tablet) 12.5 mg PO HS PRN PRN Reason: iNSOMNIA-2nd option Last Admin: 02/16/22 20:37 Dose: 12.5 mg Documented by: Senna (Sennosides 1 Tablet) 2 tab PO HSP PRN PRN Reason: Constipation Last Admin: 02/15/22 20:53 Dose: 2 tab Documented by: Tramadol HCl (Tramadol 50 Mg Tablet) 50 mg PO Q6HP PRN; Protocol PRN Reason: Pain Last Admin: 02/11/22 20:49 Dose: 50 mg Documented by: A/P Narrative A/P Narrative: A: #Diabetic ketoacidosis: -A1c 12.9 in December -Hypoglycemic again this morning, was not getting nighttime snack #Poorly controlled insulin-dependent diabetes mellitus: #SUDARSHAN: 2/2 diabetic ketoacidosis-improved #Hyponatremia due to hyperglycemia: improved #Coronary artery disease: stable #Hypothyroidism: #Chronic pancreatitis: #Transaminitis: slowly improving #Hypertriglyceridemia: Was on statin in past but that was stopped due to elevated liver enzymes. -improving #Electrolyte d/o (hypokalemia): #Essential tremor: #UTI (Staph, mssa): completed abx course Plan -started home basal(increased morning dose and now decreased evening dose) and sliding scale -nighttime snack -Replace electrolytes as needed -Continue home duloxetine/gabapentin/levothyroxine -started fenofibrate, LFT's no change -decreased BB for low normal Bp -Continue her home pancreatic enzyme supplements -PT and OT -CM for SNF placement -DVT prophylaxis: Heparin SQ CODE STATUS: Limited Time Spent With Patient Time: Total time spent is greater than 50% in coordination of care (as documented) at patient's floor/unit and/or counseling patient: Total time spent with greater than 50% in coordination of care (as documented) at patient's floor/unit and/or counseling patient:: 25 - 35 minutes
[2022-02-17] MEDS: CARVEDILOL 6.25 MG TABLET PO SCH ×2 (07:44→16:57)
[2022-02-17] MEDS: LEVOTHYROXINE 100 MCG TABLET PO SCH (07:44)
[2022-02-17] MEDS: PANTOPRAZOLE 40 MG TABLET PO SCH (07:45)
[2022-02-17] MEDS: INSULIN LISPRO 1 UNIT/0.01 ML UNIT SQ SCH ×4 (07:46→20:19)
[2022-02-17] MEDS: DICYCLOMINE 20 MG TABLET PO PRN ×3 (08:02→20:20)
[2022-02-17] MEDS: PROPRANOLOL 10 MG TABLET PO SCH ×3 (08:03→20:20)
[2022-02-17] MEDS: FENOFIBRATE 43 MG CAPSULE PO SCH (08:03)
[2022-02-17] MEDS: GABAPENTIN 300 MG CAPSULE PO SCH ×3 (08:03→20:19)
[2022-02-17] MEDS: AMYLASE PO SCH ×3 (08:04→16:17)
[2022-02-17] MEDS: DULoxetine 30 MG CAPSULE PO SCH (08:04)
[2022-02-17] MEDS: PROTEASE PO SCH ×3 (08:04→16:17)
[2022-02-17] MEDS: LIPASE PO SCH ×3 (08:04→16:17)
[2022-02-17] MEDS: ENOXAPARIN 30 MG/0.3 ML SYRINGE SQ SCH (08:08)
[2022-02-17] MEDS: INSULIN GLARGINE, HUMAN 1 UNIT/0.01 ML SQ SCH ×3 (09:16→20:27)
[2022-02-17] MEDS: traMADol 50 MG TABLET PO PRN ×2 (14:45→20:19)
[2022-02-17] MEDS: ATORVASTATIN 20 MG TABLET PO SCH (20:19)
[2022-02-17] MEDS: MELATONIN 3 MG TABLET PO SCH (20:20)
[2022-02-17] MEDS: QUEtiapine 25 MG TABLET PO PRN (20:20)
[2022-02-18] MEDS: traMADol 50 MG TABLET PO PRN ×3 (02:26→18:04)
[2022-02-18] MEDS: LEVOTHYROXINE 100 MCG TABLET PO SCH (06:57)
[2022-02-18] MEDS: PANTOPRAZOLE 40 MG TABLET PO SCH (06:57)
[2022-02-18] MEDS: INSULIN LISPRO 1 UNIT/0.01 ML UNIT SQ SCH ×4 (07:19→20:34)
[2022-02-18] MEDS: PROTEASE PO SCH ×3 (07:30→17:45)
[2022-02-18] MEDS: LIPASE PO SCH ×3 (07:30→17:45)
[2022-02-18] MEDS: CARVEDILOL 6.25 MG TABLET PO SCH (07:30)
[2022-02-18] MEDS: AMYLASE PO SCH ×3 (07:30→17:45)
--- NOTE | 2022-02-18 07:50 | Internal Med Progress Note ---
SUBJECTIVE Subjective Patient information: Note initiated : 02/18/22 at 7:48 am Service Date, if different from initiated Date: [] Patient: Tennille Castillo 76 y/o F admitted on 02/07/22 for HYPRGLYEMIC. Chief Complaint: [] Interval history: 6-year-old female with a history of type 2 diabetes had a recurrent hospital admissions for DKA, chronic pancreatitis hypothyroidism, coronary artery disease hyperlipidemia who is present to the ER with a blood glucose of more than 500 and tiredness. Patient continued having chronic abdominal pain no significant worsening she also complaining of some lower abdominal pain and her urine analysis was positive for UTI and started on ceftriaxone in the ED patient had a recent admissions for the same and was supposed to be discharged to a rehab facility when finally patient ended up choosing going home and she failed home multiple times. ED physician seriously doubt her insulin management at home CODE STATUS discussed with the patient and she want to be limited intervention which includes CPR vasopressors defibrillation resynchronization shock as indicated but no intubation 02/08 Patient is feeling better Blood sugar is better controlled she had an episode of hypoglycemia I seriously doubt her insulin management at home she lives alone and appears to be weak and having abdominal pain from chronic pancreatitis We will continue titrating her long-acting insulin 02/09 Patient appears to be very weak Not participating much with the physical therapy Hypoglycemia improved Discussed with case management about probably needing placement in [place] discussed with the patient she refused to go to rehab and continued to fail at home and failing insulin management 02/10 Patient blood sugar is better controlled Patient was complaining of rectal spasm she takes hyoscyamine at home and continued Patient is willing to go to subacute rehab encourage her to work with physical therapy 02/11 Blood sugar control Patient able to work with physical therapy 02/12 Patient continues to refuse Lovenox Educated her Working with physical therapy 02/13 Patient is progressing well with physical therapy Pending SNF placement 02/14 Patient states poor sleep, no other new complaints. Hypoglycemic yesterday afte rnoon evening. Will adjust her morning Lantus. Hypertriglyceridemia, start fibrate. 02/15 Patient seems to sleep better. Complains of mild headache. Blood glucose in the afternoon evening mildly improving Triglycerides better today. 02/16 Patient states poor sleep last night. Patient hypoglycemic this morning. Will decrease her evening Lantus. Complains of headache but otherwise no new complaints. 02/17 Blood sugar again in the morning. We will check to see if she is getting a nighttime snack. She was a bit lightheaded with hypoglycemia. able to confirm patient is not getting nighttime snack. Will instruct staff accordingly. 02/18 Patient's blood glucose still low. We will decrease her basal insulin. lasix for postive fluid balance and some mild bibase rales today. Review of Systems: denies fever/chills/nausea/vomiting/chest or abdominal pain/cough/dyspnea/diarrhea. Otherwise see above. Constitutional Vitals: Vital Signs Temp Pulse Resp BP Pulse Ox 97.4 F 67 18 130/74 97 02/18/22 07:20 02/18/22 07:20 02/18/22 07:20 02/18/22 07:20 02/18/22 07:20 Period Temp Pulse Resp BP Sys/Rosario Pulse Ox Last 24 Hr 96.8 F-98.2 F 66-71 14-18 110-147/62-74 93-97 Intake and Output 02/17/22 02/18/22 02/18/22 21:59 05:59 13:59 Intake Total 360 Balance 360 Weight 76.113 kg Intake & Output: Intake & Output 02/17/22 02/18/22 02/18/22 21:59 05:59 13:59 Intake Total 360 Balance 360 Weight 76.113 kg Intake: Oral 360 Other: Meal Dinner Percent of Meal Consumed 100% # Voids 2 Exam: General: Alert, Awake, No acute Distress Eyes/N/T: EOMI, Head/Neck: neck supple, CV: RRR, 2/6 SM Pulm: mild rales at base, no wheezing/rhonchi Abd: soft, nontender, +BS x4 Ext: no clubbing/cyanosis/edema Neuro: Alert, no focal deficits, moves all extremities, Skin: warm/dry OBJ DATA Labs CBC & Chem 7: 02/07/22 15:41 02/16/22 05:10 Labs: Abnormal Lab Results 02/16/22 05:10 GGT 126 H AST 64 H ALT 46 H Total Protein 5.4 L Globulin 2.0 L Triglycerides 157 H Meds: Medications Acetaminophen (Acetaminophen 325 Mg Tablet) 650 mg PO Q4-6HP PRN; Protocol PRN Reason: Per Pain Protocol/Fever > 101 Last Admin: 02/15/22 13:25 Dose: 650 mg Documented by: Albuterol/Ipratropium (Ipratropium/Albuterol 3 Ml Ampul.Neb) 3 ml NEB Q4HRT PRN PRN Reason: Wheezing Atorvastatin Calcium (Atorvastatin 20 Mg Tablet) 20 mg PO HS [facility] Last Admin: 02/17/22 20:19 Dose: 20 mg Documented by: Bisacodyl (Bisacodyl 10 Mg Supp.Rect) 10 mg ND Q2-3DAYS PRN PRN Reason: Constipation Carvedilol (Carvedilol 6.25 Mg Tablet) 6.25 mg PO BIDCC [facility] Last Admin: 02/18/22 07:30 Dose: 6.25 mg Documented by: Dextrose (Dextrose 50% 50 Ml Vial) 0 ml IV UD PRN PRN Reason: Per Sliding Scale Last Admin: 02/08/22 05:28 Dose: 25 ml Documented by: Diagnostic Test (Pha) (Accu-Chek 1 Each Strip) 1 each FS ACHS [facility] Last Admin: 02/18/22 06:57 Dose: 1 each Documented by: Dicyclomine HCl (Dicyclomine 20 Mg Tablet) 20 mg PO QID PRN PRN Reason: abdominal discomfort Last Admin: 02/17/22 20:20 Dose: 20 mg Documented by: Duloxetine HCl (Duloxetine 30 Mg Capsule) 30 mg PO QDAY [facility] Last Admin: 02/17/22 08:04 Dose: 30 mg Documented by: Enoxaparin Sodium (Enoxaparin 30 Mg/0.3 Ml Syringe) 30 mg SQ DAILY [facility] Last Admin: 02/17/22 08:08 Dose: Not Given Documented by: Fenofibrate (Fenofibrate 43 Mg Capsule) 86 mg PO DAILY [facility] Last Admin: 02/17/22 08:03 Dose: 86 mg Documented by: Gabapentin (Gabapentin 300 Mg Capsule) 300 mg PO TID [facility] Last Admin: 02/17/22 20:19 Dose: 300 mg Documented by: Glucose (Dextrose 31 Gm Oral.Susp) 15 gm PO PRN PRN PRN Reason: Hypoglycemia Hydralazine HCl (Hydralazine 20 Mg/Ml Vial) 10 mg IV Q4HP PRN PRN Reason: Hypertension Insulin Human Regular 50 unit/ (Sodium Chloride) 100.5 mls @ 2.93 mls/hr IV DUR [facility]; Protocol Insulin Glargine (Insulin Glargine, Human 1 Unit/0.01 Ml) 40 unit SQ DAILY [facility] Last Admin: 02/17/22 12:16 Dose: 40 units Documented by: Insulin Glargine (Insulin Glargine, Human 1 Unit/0.01 Ml) 20 unit SQ HS [facility] Last Admin: 02/17/22 20:27 Dose: 20 units Documented by: Insulin Human Lispro (Insulin Lispro 1 Unit/0.01 Ml Unit) 0 unit SQ ACHS [facility]; Protocol Last Admin: 02/18/22 07:19 Dose: Not Given Documented by: Levothyroxine Sodium (Levothyroxine 100 Mcg Tablet) 100 mcg PO ACB [facility] Last Admin: 02/18/22 06:57 Dose: 100 mcg Documented by: Melatonin (Melatonin 3 Mg Tablet) 3 mg PO HSP PRN PRN Reason: Insomnia Last Admin: 02/13/22 23:44 Dose: 3 mg Documented by: Melatonin (Melatonin 3 Mg Tablet) 3 mg PO QHS [facility] Last Admin: 02/17/22 20:20 Dose: 3 mg Documented by: Nitroglycerin (Nitroglycerin 0.4 Mg Tab.Subl) 0.4 mg SL Q5M PRN PRN Reason: Chest Pain Ondansetron HCl (Ondansetron 4 Mg/2 Ml Vial) 4 mg IV Q4-6HP PRN; Protocol PRN Reason: Nausea And Vomiting Pantoprazole Sodium (Pantoprazole 40 Mg Tablet) 40 mg PO QAMAC [facility] Last Admin: 02/18/22 06:57 Dose: 40 mg Documented by: Lipase-Protease- Amylase [Zenpep] 40, 000-126,000-168,000 Unit Cap 1 dose PO 0800,1100,1600 [facility] Last Admin: 02/18/22 07:30 Dose: 1 dose Documented by: Polyethylene Glycol (Polyethylene Glycol 3350 17 Gm Packet) 17 gm PO DAILYP PRN PRN Reason: Constipation Promethazine HCl (Promethazine 25 Mg/Ml Vial) 12.5 mg IV Q4-6HP PRN; Protocol PRN Reason: Nausea And Vomiting Propranolol HCl (Propranolol 10 Mg Tablet) 10 mg PO TID [facility] Last Admin: 02/17/22 20:20 Dose: 10 mg Documented by: Quetiapine Fumarate (Quetiapine 25 Mg Tablet) 12.5 mg PO HS PRN PRN Reason: iNSOMNIA-2nd option Last Admin: 02/17/22 20:20 Dose: 12.5 mg Documented by: Senna (Sennosides 1 Tablet) 2 tab PO HSP PRN PRN Reason: Constipation Last Admin: 02/15/22 20:53 Dose: 2 tab Documented by: Tramadol HCl (Tramadol 50 Mg Tablet) 50 mg PO Q6HP PRN; Protocol PRN Reason: Pain Last Admin: 02/18/22 02:26 Dose: 50 mg Documented by: A/P Narrative A/P Narrative: A: #Diabetic ketoacidosis: -A1c 12.9 in December -low BG #Poorly controlled insulin-dependent diabetes mellitus: #SUDARSHAN: 2/2 diabetic ketoacidosis-improved #Hyponatremia due to hyperglycemia: improved #Coronary artery disease: stable #Hypothyroidism: #Chronic pancreatitis: #Transaminitis: slowly improving #Hypertriglyceridemia: Was on statin in past but that was stopped due to elevated liver enzymes. -improving #Electrolyte d/o (hypokalemia): #Essential tremor: #UTI (Stap, mssa): completed abx course Plan -started home basal(increased morning dose by 10 but reduced to 5 today, and now decreased evening dose) and sliding scale -nighttime snack -Replace electrolytes as needed -Continue home duloxetine/gabapentin/levothyroxine -started fenofibrate, LFT's no change -lasix x1 today -decreased BB for low normal Bp -Continue her home pancreatic enzyme supplements -PT and OT -CM for SNF placement -DVT prophylaxis: Heparin SQ CODE STATUS: Limited Time Spent With Patient Time: Total time spent is greater than 50% in coordination of care (as documented) at patient's floor/unit and/or counseling patient:
[2022-02-18] MEDS: PROPRANOLOL 10 MG TABLET PO SCH ×3 (08:38→20:27)
[2022-02-18] MEDS: FENOFIBRATE 43 MG CAPSULE PO SCH (08:38)
[2022-02-18] MEDS: INSULIN GLARGINE, HUMAN 1 UNIT/0.01 ML SQ SCH ×2 (08:39→20:34)
[2022-02-18] MEDS: DULoxetine 30 MG CAPSULE PO SCH (08:39)
[2022-02-18] MEDS: GABAPENTIN 300 MG CAPSULE PO SCH ×3 (08:39→20:27)
[2022-02-18] MEDS: ENOXAPARIN 30 MG/0.3 ML SYRINGE SQ SCH (08:41)
[2022-02-18] MEDS ORDERED: FUROSEMIDE 40 MG/4 ML VIAL IV ONE (09:06)
[2022-02-18] MEDS ORDERED: FUROSEMIDE 80 MG TABLET PO ONE (10:40)
--- NOTE | 2022-02-18 11:56 | Discharge Summary ---
Discharge Provider Provider IMPORTANT FOLLOW-UP INFORMATION FOR PCP: Patient information: Note initiated : 02/18/22 at 11:53 am Service Date, if different from initiated Date: [] Patient: Tennille Castillo 76 y/o F admitted on 02/07/22 for HYPRGLYEMIC. Chief Complaint: [] Date of admission: 02/07/22 18:46 Discharge date: 02/18/22 Primary care physician: OSKAR Carvajal Consults: 02/07/22 Consult to Physician [CONS] Stat Comment: Consulting Provider: Giselle Curry Reason For Exam: Physician to Consult COURSE Hospital Course Hospital course: 6-year-old female with a history of type 2 diabetes had a recurrent hospital admissions for DKA, chronic pancreatitis hypothyroidism, coronary artery disease hyperlipidemia who is present to the ER with a blood glucose of more than 500 and tiredness. Patient continued having chronic abdominal pain no significant worsening she also complaining of some lower abdominal pain and her urine analysis was positive for UTI and started on ceftriaxone in the ED patient had a recent admissions for the same and was supposed to be discharged to a rehab facility when finally patient ended up choosing going home and she failed home multiple times. ED physician seriously doubt her insulin management at home CODE STATUS discussed with the patient and she want to be limited intervention which includes CPR vasopressors defibrillation resynchronization shock as indicated but no intubation 02/08 Patient is feeling better Blood sugar is better controlled she had an episode of hypoglycemia I seriously doubt her insulin management at home she lives alone and appears to be weak and having abdominal pain from chronic pancreatitis We will continue titrating her long-acting insulin 02/09 Patient appears to be very weak Not participating much with the physical therapy Hypoglycemia improved Discussed with case management about probably needing placement in [place] discussed with the patient she refused to go to rehab and continued to fail at home and failing insulin management 02/10 Patient blood sugar is better controlled Patient was complaining of rectal spasm she takes hyoscyamine at home and continued Patient is willing to go to subacute rehab encourage her to work with physical therapy 02/11 Blood sugar control Patient able to work with physical therapy 02/12 Patient continues to refuse Lovenox Educated her Working with physical therapy 02/13 Patient is progressing well with physical therapy Pending SNF placement 02/14 Patient states poor sleep, no other new complaints. Hypoglycemic yesterday afternoon evening. Will adjust her morning Lantus. Hypertriglyceridemia, start fibrate. 02/15 Patient seems to sleep better. Complains of mild headache. Blood glucose in the afternoon evening mildly improving Triglycerides better today. 02/16 Patient states poor sleep last night. Patient hypoglycemic this morning. Will decrease her evening Lantus. Complains of headache but otherwise no new complaints. 02/17 Blood sugar again in the morning. We will check to see if she is getting a nighttime snack. She was a bit lightheaded with hypoglycemia. able to confirm patient is not getting nighttime snack. Will instruct staff accordingly. 02/18 Patient's blood glucose still low. We will decrease her basal insulin. lasix for postive fluid balance and some mild bibase rales today. A: #Diabetic ketoacidosis: -A1c 12.9 in December -low BG #Poorly controlled insulin-dependent diabetes mellitus: #SUDARSHAN: 2/2 diabetic ketoacidosis-improved #Hyponatremia due to hyperglycemia: improved #Coronary artery disease: stable #Hypothyroidism: #Chronic pancreatitis: #Transaminitis: slowly improving #Hypertriglyceridemia: Was on statin in past but that was stopped due to elevated liver enzymes. #Electrolyte d/o (hypokalemia): #Essential tremor: #UTI (Staph, mssa): completed abx course Plan -started fenofibrate, LFT's no change Discharge diagnosis: DKA poorly controlled diabetes SUDARSHAN hyponatremia Secondary discharge diagnosis: CAD hypothyroidism chronic pancreatitis transaminitis hypertriglyceridemia central tremor UTI Time Spent with Patient Time attestation: Total time spent providing and/or coordinating discharge services: Time spent: Greater than 30 minutes EXAM Constitutional Vitals: Temp Pulse Resp BP Pulse Ox 97.4 F 67 18 130/74 97 02/18/22 07:20 02/18/22 07:20 02/18/22 07:20 02/18/22 07:20 02/18/22 07:20 Discharge Plan Patient/Caregiver Discharge Instructions Activity: increase activity as tolerated Diet: Consistent Carbohydrate Stand Alone Forms: Work/Release Restrictions Prescriptions: New fenofibrate micronized 43 mg Capsule 86 mg PO DAILY Qty: 30 0RF Tresiba U-100 Insulin 100 unit/mL solution 30 unit subcut BID Qty: 10 0RF Continued Acidophilus Tablet,Chewable 2 tab PO BID 0RF hyoscyamine sulfate 0.125 mg tablet, sublingual 0.125 mg PO Q6H PRN (Reason: Abdominal Discomfort) 0RF multivit [id number] 186 [Hair, Skin and Nails Advanced] 1 tab PO DAILY 0RF trazodone 100 mg tablet 100 mg PO HSP PRN (Reason: insomnia) 0RF Zenpep 40,000-126,000- 168,000 unit capsule,delayed release(DR/EC) 40,000 cap PO TID 0RF Label Comments: take 1 capsule by mouth three times a day duloxetine 30 mg Capsule,Delayed Release(Dr/Ec) 30 mg PO QDAY 0RF acyclovir 400 mg tablet 1 tab PO BID 0RF gabapentin 800 mg tablet 1 tab PO QID 0RF zinc 50 mg Tablet 50 mg PO DAILY 0RF cholecalciferol (vitamin D3) [Vitamin D3] 50 mcg (2,000 unit) Capsule 50 mcg PO DAILY 0RF Novolin R Regular U-100 Insuln 100 UNIT/ML solution See Protocol unit subcut AC Qty: 10 0RF Protocol: Insulin Sliding Scale, High Condition: HUMALOG/NOVALOG SC SLIDING Dose/Route: SCALE Condition: FSBS < 70 Dose/Route: Give 4 Oz juice, or 15gm oral Instruction: Glucose, or 25ml D50W IV if Dose/Route: unable to take PO. Recheck in Instruction: 15 min and repeat if FSBS < 70 Condition: FSBS 71-140 Dose/Route: NO COVERAGE Condition: FSBS 141-170 Dose/Route: 3 UNITS Condition: FSBS 171-200 Dose/Route: 6 UNITS Condition: FSBS 201-250 Dose/Route: 9 UNITS Condition: FSBS 251-300 Dose/Route: 12 UNITS Condition: FSBS 301-350 Dose/Route: 15 UNITS Condition: FSBS 351-400 Dose/Route: 18 UNITS Condition: FSBS > 400 Dose/Route: 20 UNITS; REPEAT Q2H X2 Instruction: CONTINUE FOLLOWING SLIDING Condition: SCALE; IF STILL > 400; CALL Dose/Route: PHYSICIAN Rx Instructions: 70-139 none subcut before meals and at bedtime; levothyroxine 100 mcg Tablet 100 mcg PO QDAY 0RF propranolol 30 mg tablet 10 mg PO TID 0RF Discontinued Tresiba U-100 Insulin 100 unit/mL solution 30 unit SUBCUT BID Qty: 1 0RF Follow Up Plan Follow up with: Jacque Severino FNP [Primary Care Provider] - Patient Disposition: Home Health Service Prognosis: Fair Overall status at discharge: patient is progressing back to baseline Discharge Orders: Discharge Order (Routine); Ordered 02/18/22 Ordered By: Jef Borges
[2022-02-18] MEDS: MELATONIN 3 MG TABLET PO SCH (20:27)
[2022-02-18] MEDS: ATORVASTATIN 20 MG TABLET PO SCH (20:27)
[2022-02-18] MEDS: DICYCLOMINE 20 MG TABLET PO PRN (20:36)
[2022-02-18] MEDS: QUEtiapine 25 MG TABLET PO PRN (20:36)
[2022-02-19] MEDS: LEVOTHYROXINE 100 MCG TABLET PO SCH (07:30)
[2022-02-19] MEDS: PANTOPRAZOLE 40 MG TABLET PO SCH (07:30)
[2022-02-19] MEDS: AMYLASE PO SCH ×2 (07:30→11:31)
[2022-02-19] MEDS: LIPASE PO SCH ×2 (07:30→11:31)
[2022-02-19] MEDS: INSULIN LISPRO 1 UNIT/0.01 ML UNIT SQ SCH ×2 (07:30→11:30)
[2022-02-19] MEDS: PROTEASE PO SCH ×2 (07:30→11:31)
[2022-02-19] MEDS: DICYCLOMINE 20 MG TABLET PO PRN (07:38)
[2022-02-19] MEDS: INSULIN GLARGINE, HUMAN 1 UNIT/0.01 ML SQ SCH (08:48)
[2022-02-19] MEDS: GABAPENTIN 300 MG CAPSULE PO SCH ×2 (08:49→14:44)
[2022-02-19] MEDS: PROPRANOLOL 10 MG TABLET PO SCH ×2 (08:49→14:44)
[2022-02-19] MEDS: FENOFIBRATE 43 MG CAPSULE PO SCH (08:49)
[2022-02-19] MEDS: DULoxetine 30 MG CAPSULE PO SCH (08:50)
[2022-02-19] MEDS: ENOXAPARIN 30 MG/0.3 ML SYRINGE SQ SCH (08:52)
[2022-02-19] MEDS: traMADol 50 MG TABLET PO PRN (13:04)
== END 2022-02-19 16:25 | disposition home health service (06) | DRG 638 ==
LOC: ED 15:03 → ICU 18:46 → MEDSUR 02-09 15:45
PROVIDERS: ADMIT Internal Medicine; ATTEND Internal Medicine

== ENCOUNTER 2022-04-23 02:17 | Inpatient (IN) ==
[2022-04-23] MEDS ORDERED: 0.9 % SODIUM CHLORIDE 1,780 ML IV ONE (02:32)
--- NOTE | 2022-04-23 02:47 | Emergency Department Note ---
HPI General Chief complaint: Anxiety Time Seen by Provider: 04/23/22 02:20 Source: patient Mode of arrival: EMS Limitations: no limitations History of Present Illness HPI Narrative: Narrative: Patient arrives to the ED via EMS with concerns about anxiety. Patient that she has been feeling well today and does not feel comfortable in her own skin. She states she has a history of diabetes but she has not checked her blood sugar today. She states she checked yesterday was in the 300s. EMS states is greater than 600. Patient states she has not been eating today so she does not know what caused her blood sugar to be elevated. She denies fever, chills, nausea, vomiting, abdominal pain, dysuria, hematuria, urinary frequency, cardiac chest pain, heart palpitation, cardiac chest pain, shortness of breath, cough. Patient denies any other alleviating or aggravating factors.. Related Data Home Medications Medication Instructions Recorded Confirmed [id number] 40,000 cap PO TID 06/01/21 02/07/22 40,000-126,000-168,000 unit capsule, delay rel (Zenpep) Lactobacillus acidophilus 2 tab PO BID 07/15/21 02/07/22 (Acidophilus chewable tablet) multivit [id number] 186 1 tab PO DAILY 07/15/21 02/07/22 [Hair, Skin and Nails Advanced] trazodone 100 mg tablet 100 mg PO HSP PRN insomnia 08/22/21 02/07/22 duloxetine 30 mg capsule,delayed 30 mg PO QDAY 09/20/21 02/07/22 release acyclovir 400 mg tablet 1 tab PO BID 09/21/21 02/07/22 gabapentin 800 mg tablet 1 tab PO QID 09/21/21 02/07/22 cholecalciferol (vitamin D3) 50 50 mcg PO DAILY 12/04/21 02/07/22 mcg (2,000 unit) capsule (Vitamin D3) zinc 50 mg tablet 50 mg PO DAILY 12/04/21 02/07/22 levothyroxine 100 mcg tablet 100 mcg PO QDAY 02/07/22 02/07/22 propranolol 10 mg PO TID 02/07/22 02/07/22 Previous Rx's Medication Instructions Recorded insulin regular human 100 unit/mL See Protocol subcut AC #10 mL 12/25/21 injection solution (Novolin R Regular U-100 Insulin) fenofibrate micronized 43 mg 86 mg PO DAILY #30 caps 02/14/22 capsule insulin degludec 100 unit/mL 30 unit (0.3 mL) subcut BID #10 mL 02/18/22 subcutaneous solution (Tresiba U-100 Insulin) hyoscyamine sulfate 0.125 mg 0.125 mg PO Q6H PRN Abdominal 02/19/22 sublingual tablet Discomfort #20 tabs Allergies Allergy/AdvReac Type Severity Reaction Status Date / Time cephalexin [From Keflex] Allergy Intermediate Swelling Verified 04/20/22 14:54 Penicillins Allergy Mild Rash Verified 04/20/22 14:54 Anistreplase [From Eminase] Allergy Unknown UNKNOWN Verified 04/20/22 14:54 fenugreek Allergy Unknown UNKNOWN Verified 04/20/22 14:54 codeine AdvReac Mild Itching Verified 04/20/22 14:54 Erythromycin Base AdvReac Mild Itching Verified 04/20/22 14:54 Nortriptyline AdvReac Mild Nausea Verified 04/20/22 14:54 promethazine AdvReac Mild Fainting Verified 04/20/22 14:54 trulicity AdvReac Intermediate Other Uncoded 12/04/21 06:40 Review of Systems ROS ROS Narrative: Narrative: All systems ED: reviewed and negative except as stated. [facility] Narrative Patient History Narrative: Narrative: Medical/Surgical/Family History All Active Problems (Updated 04/23/22 @ 03:47 by Abdi Grant DO) Hypoglycemia (Acute) DKA (diabetic ketoacidosis) (Acute) Acute hyponatremia (Acute) Acute hyperkalemia (Acute) Acidosis, lactic (Acute) Metabolic acidosis (Acute) Blood in urine (Chronic) Diabetic keto-acidosis (Chronic) Pseudohyponatremia (Chronic) DKA (diabetic ketoacidosis) (Chronic) Hypomagnesemia (Chronic) Generalized weakness (Chronic) Acute dehydration (Chronic) Diabetic ketosis (Chronic) Acute dyspnea (Chronic) Obstructive sleep apnea (Chronic) DKA (diabetic ketoacidosis) (Chronic) Vulvovaginitis due to yeast (Chronic) Sleepwalking (Chronic) REM sleep behavior disorder (Chronic) Hypersomnia (Chronic) Snoring (Chronic) Tremor (Chronic) Neurofibromatosis 2 (Chronic) Trigger finger (Chronic) Sleep disturbance (Chronic) Arthralgia (Chronic) Pancreatitis (Chronic) Macular degeneration (Chronic) Hepatitis A (Chronic) Glaucoma (Chronic) Fibromyalgia (Chronic) DDD (degenerative disc disease), cervical (Chronic) Diabetic retinopathy (Chronic) Opioid dependence (Chronic) Stress (Chronic) Hard of hearing (Chronic) Multiple environmental allergies (Chronic) Fracture of lumbar spine (Chronic) Compression fracture of lumbosacral spine (Chronic) Abdominal pain (Chronic) Chronic pancreatitis (Chronic) Liver mass (Chronic) Cirrhosis of liver (Chronic) Constipation (Chronic) Neuropathy (Chronic) Chronic pain (Chronic) Essential tremor (Chronic) Bimalleolar ankle fracture (Chronic) Chronic bronchitis with acute exacerbation (Chronic) Dehydration (Chronic) Epistaxis (Chronic) Hypoxia (Chronic) Anterior epistaxis (Chronic) Candidiasis of mouth (Chronic) DKA (diabetic ketoacidosis) (Chronic) Conjunctivitis (Chronic) Bronchitis (Chronic) Dehiscence of closure of skin (Chronic) Anemia (Chronic) Elevated liver enzymes (Chronic) 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) Radiculopathy, sacral and sacrococcygeal region (Chronic) Radiculopathy, lumbosacral region (Chronic) Insomnia (Chronic) Levator syndrome (Chronic) Sacrococcygeal pain (Chronic) History of surgery (Chronic) Hypothyroidism (Chronic) Chronic bronchitis (Chronic) 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) Depression (Chronic) Anxiety (Chronic) Hypertension (Chronic) Osteoporosis (Chronic) Rectal pain (Chronic) Low back pain (Chronic) Pain in thoracic spine (Chronic) Age-related osteoporosis with current pathological fracture, vertebra(e), initi al encounter for fracture (Chronic) Medical History Abdominal pain Acute exacerbation of chronic obstructive airways disease Age-related osteoporosis with current pathological fracture, vertebra(e), initial encounter for fracture Anemia Anterior epistaxis Anxiety Arthralgia Bilateral primary osteoarthritis of hip Bimalleolar ankle fracture Blood in urine Bronchitis Candidiasis of mouth Chronic bronchitis with acute exacerbation Chronic pain Chronic pancreatitis Cirrhosis of liver Compression fracture of lumbosacral spine Conjunctivitis Constipation DDD (degenerative disc disease), cervical Dehiscence of closure of skin Dehydration Depression Diabetic retinopathy DKA (diabetic ketoacidosis) Elevated liver enzymes Epistaxis Essential tremor Fibromyalgia Fracture of lumbar spine Glaucoma Hard of hearing Hepatitis A Hyperglycemia due to type 2 diabetes mellitus Hypersomnia Hypertension Hypothyroidism Hypoxia Insomnia Levator syndrome Lipomatosis Liver mass Low back pain Macular degeneration Multiple environmental allergies Neurofibromatosis 2 Neuropathy Obstructive sleep apnea Opioid dependence Osteoporosis Pain in thoracic spine Pancreatitis Radiculopathy, lumbosacral region Radiculopathy, sacral and sacrococcygeal region Rectal pain REM sleep behavior disorder Sacrococcygeal pain Sleep disturbance Sleepwalking Snoring Stress Tremor Trigger finger Surgical History History of appendectomy (~1969) History of arthroplasty of right ankle (~2017) History of cataract surgery (~2003) History of cholecystectomy History of colonoscopy (~06/26/18) History of decompression of median nerve (~2003) History of dilation and curettage History of eye surgery (~2005) Glaucoma History of hand surgery (~2003) Release of trigger finger, right History of left breast biopsy (~2005) History of oophorectomy History of surgery Vertebroplasty T12 w/sed 09/28/19 History of surgery retinopathy laser Stereotactic destruction of lesion using gamma radiation-2004 History of surgery on wrist History of tonsillectomy and adenoidectomy (~1969) Family History Mother Heart disease Fibromyalgia Father Malignant melanoma Malignant tumor of prostate Leukemia Social History Smoking Status: Never smoker Alcohol Intake Frequency: does not drink Substance Use: does not use Exam Narrative Narrative: Narrative: General Limitations: no limitations General appearance: Present anxious and other (Chronically ill-appearing) ENT ENT: Present normal oropharynx and mucous membranes dry Respiratory Respiratory: Present normal lung sounds bilaterally; Absent respiratory distress Cardiovascular Cardiovascular: Present normal rhythm and tachycardia Adbominal Abdominal: Present soft; Absent tenderness Neurological Neurological: Present alert and oriented X3 Psychiatric Psychiatric: Present anxious and serious Skin Skin: Present warm (WNL) and normal color Course Course Course Narrative: Patient was evaluated initially for anxiety. Blood work revealed that patient's blood sugar was greater than 700. Initial blood gas showed that her pH was less than 7 with a lactic acid of 5.5. Urine was noninfectious. Patient was bolused IV fluids at 30 mL/kg. She was given a bolus of IV insulin, 10 units. Repeat blood sugar was still too high to read on our machines. Patient was then started on a insulin drip. EKG was unremarkable with exception of sinus tachycardia. Patient's white cell count was elevated as well as a respiratory rate so she was given IV vancomycin and Rocephin prophylactically after blood cultures and urine's were obtained. Chest x-ray obtained with image reviewed myself with no acute cardiopulmonary findings. Case was discussed with hospitalist who has agreed to admit the patient for DKA. Patient will need ICU care. Plan discussed with patient she expressed verbal understanding agreement. Reevaluation(s) Reevaluation #1: Patient remains hemodynamically stable. No new complaints at this time. Time: 03:27 Consultations Consultation #1: Case was discussed with hospitalist, Dr. Perales, who has agreed to admit the patient for DKA Time: 06:32 Vital Signs Vital signs: Vital Signs Temperature 97.5 F 04/23/22 02:22 Pulse Rate 121 H 04/23/22 02:22 Respiratory Rate 24 H 04/23/22 02:22 Blood Pressure 160/68 04/23/22 02:22 Pulse Oximetry (%) 100 04/23/22 02:22 Oxygen Delivery Method 04/23/22 02:22 Temperature 97.5 F 04/23/22 02:22 Pulse Rate 109 H 04/23/22 06:32 Respiratory Rate 24 H 04/23/22 02:22 Blood Pressure 132/59 04/23/22 06:32 Pulse Oximetry (%) 100 04/23/22 06:32 Oxygen Delivery Method 04/23/22 02:22 [facility] MDM Narrative Medical decision making narrative: Narrative: Differential Diagnosis Differential Diagnosis: Anxiety, DKA, sepsis, UTI Medical Records Medical records reviewed: Yes I reviewed the patient's medical records. Lab Data Lab results reviewed: Yes I reviewed the patient's lab results. Result diagrams: 04/23/22 02:40 Labs: Lab Results 04/23/22 04/23/22 Range/Units 02:40 02:47 WBC 19.0 H (4.5-11.0) K/mcL RBC 4.29 (3.59-5.38) M/mcL Hgb 13.2 (11.2-15.7) g/dL Hct 43.5 (34.1-44.9) % POC Hct 42.0 (36-48) MCV 101.4 H (80.0-100.0) fL MCH 30.8 (26.0-34.0) pg MCHC 30.3 L (31.0-36.0) g/dL RDW 13.2 (11.5-14.5) % Plt Count 300 (140-440) K/mcL MPV 10.7 H (7.4-10.4) fL Immature Gran % (Auto) 1.6 H (0.0-0.5) % Neut % (Auto) 81.9 H (38.0-78.0) % Lymph % (Auto) 10.2 L (15.5-49.0) % [place] % (Auto) 5.5 (1.0-12.0) % Eos % (Auto) 0.3 (0.0-7.0) % Baso % (Auto) 0.5 (0.0-2.0) % Lymph # (Auto) 1.93 (1.50-4.80) K/mcL [place] # (Auto) 1.05 H (0.10-0.90) K/mcL Eos # (Auto) 0.05 (0.00-0.70) K/mcL Baso # (Auto) 0.09 (0.00-0.30) K/mcL Immature Gran # 0.31 H (0.00-0.05) K/mcl Absolute Neutrophils 15.58 H (1.80-8.00) K/mcL POC Sodium 124 L (133-145) POC Potassium 5.8 H (3.3-5.1) POC Chloride 97 (96-108) POC Total CO2 7.0 L* (22-30) POC BUN 28 H (6-20) POC Creatinine 1.1 (0.6-1.2) POC Glucose > 700 H* (70-105) POC WB Ioniz Calcium 1.21 (1.16-1.32) Radiology Data Radiology results reviewed: Yes I reviewed the patient's radiology results. Radiology results narrative: Chest x-ray obtained with image reviewed myself, no acute cardiopulmonary findings, official read pending. EKG Data EKG #1: EKG attestation: Yes I reviewed and interpreted this EKG. EKG shows normal: sinus rhythm Rate: tachycardia Rhythm: NSR [place]/QRS: normal P waves: LAE Heart block present: None ST segment elevation in: None ST segment depression in: None QTc: normal QRS morphology: Present normal Interpretation: no acute changes Core Measures AMI Core Measures Followed: Yes Discharge Plan Patient/Caregiver Discharge Instructions Pt seen by POWERHOUSE HELPER/PA only: No Clinical Impression: Acute hyponatremia, Acute hyperkalemia, Acidosis, lactic, Metabolic acidosis DKA (diabetic ketoacidosis) Qualifiers: Diabetes mellitus type: type 2 Diabetes mellitus complication detail: without coma Qualified Code(s): E11.10 - Type 2 diabetes mellitus with ketoacidosis without coma Patient Disposition: Xfer As Inpt ([facility]) Condition: Critical Follow up with: Jacque Severino FNP [Primary Care Provider] - Prescriptions: No Action Acidophilus Tablet,Chewable 2 tab PO BID multivit [id number] 186 [Hair, Skin and Nails Advanced] 1 tab PO DAILY trazodone 100 mg tablet 100 mg PO HSP PRN (Reason: insomnia) Zenpep 40,000-126,000- 168,000 unit capsule,delayed release(DR/EC) 40,000 cap PO TID Label Comments: take 1 capsule by mouth three times a day duloxetine 30 mg Capsule,Delayed Release(Dr/Ec) 30 mg PO QDAY acyclovir 400 mg tablet 1 tab PO BID gabapentin 800 mg tablet 1 tab PO QID zinc 50 mg Tablet 50 mg PO DAILY cholecalciferol (vitamin D3) [Vitamin D3] 50 mcg (2,000 unit) Capsule 50 mcg PO DAILY Novolin R Regular U-100 Insuln 100 UNIT/ML solution See Protocol subcut AC Qty: 10 0RF Protocol: Insulin Sliding Scale, High Condition: HUMALOG/NOVALOG SC SLIDING Dose/Route: SCALE Condition: FSBS < 70 Dose/Route: Give 4 Oz juice, or 15gm oral Instruction: Glucose, or 25ml D50W IV if Dose/Route: unable to take PO. Recheck in Instruction: 15 min and repeat if FSBS < 70 Condition: FSBS 71-140 Dose/Route: NO COVERAGE Condition: FSBS 141-170 Dose/Route: 3 UNITS Condition: FSBS 171-200 Dose/Route: 6 UNITS Condition: FSBS 201-250 Dose/Route: 9 UNITS Condition: FSBS 251-300 Dose/Route: 12 UNITS Condition: FSBS 301-350 Dose/Route: 15 UNITS Condition: FSBS 351-400 Dose/Route: 18 UNITS Condition: FSBS > 400 Dose/Route: 20 UNITS; REPEAT Q2H X2 Instruction: CONTINUE FOLLOWING SLIDING Condition: SCALE; IF STILL > 400; CALL Dose/Route: PHYSICIAN Rx Instructions: 70-139 none subcut before meals and at bedtime; levothyroxine 100 mcg Tablet 100 mcg PO QDAY propranolol 30 mg tablet 10 mg PO TID fenofibrate micronized 43 mg Capsule 86 mg PO DAILY Qty: 30 0RF Tresiba U-100 Insulin 100 unit/mL solution 30 unit subcut BID Qty: 10 0RF hyoscyamine sulfate 0.125 mg tablet, sublingual 0.125 mg PO Q6H PRN (Reason: Abdominal Discomfort) Qty: 20 0RF
[2022-04-23 02:52] LABS: POC Blood Urea Nitrogen 28 (6-20); POC Calcium, Ionized 1.21 (1.16-1.32); POC Chloride 97 (96-108); POC Creatinine 1.1 (0.6-1.2); POC Glucose, Random > 700 (70-105); POC Potassium 5.8 (3.3-5.1); POC Sodium 124 (133-145)
[2022-04-23 03:20] LABS: Basophils # (Auto) 0.09 K/mcL (0.00-0.30); Basophils % (Auto) 0.5 % (0.0-2.0); Eosinophils # (Auto) 0.05 K/mcL (0.00-0.70); Eosinophils % (Auto) 0.3 % (0.0-7.0); Hematocrit 43.5 % (34.1-44.9); Hemoglobin 13.2 g/dL (11.2-15.7); Lymphocytes # (Auto) 1.93 K/mcL (1.50-4.80); Lymphocytes % (Auto) 10.2 % (15.5-49.0); Mean Cell Volume 101.4 fL (80.0-100.0); Mean Corpuscular HGB Conc 30.3 g/dL (31.0-36.0); Mean Platelet Volume 10.7 fL (7.4-10.4); Monocytes # (Auto) 1.05 K/mcL (0.10-0.90); Monocytes % (Auto) 5.5 % (1.0-12.0); Neutrophils % (Auto) 81.9 % (38.0-78.0); Platelet Count 300 K/mcL (140-440); RBC 4.29 M/mcL (3.59-5.38); Red Cell Distribution Width 13.2 % (11.5-14.5)
[2022-04-23] MEDS ORDERED: PIPERACILLIN SODIUM/TAZOBACTAM 3.375 GM in DEXTROSE 5% IN WATER 50 ML IV ONE (03:33)
[2022-04-23] MEDS ORDERED: VANCOMYCIN 1,000 MG in 0.9 % SODIUM CHLORIDE 250 ML IV ONE (03:33)
[2022-04-23] MEDS ORDERED: diphenhydrAMINE 50 MG/ML VIAL IV ONE (03:34)
[2022-04-23] MEDS ORDERED: INSULIN REGULAR, HUMAN 1 UNIT/0.01 ML UNIT IV ONE ×4 (03:47→10:17)
[2022-04-23] MEDS ORDERED: INSULIN REGULAR, HUMAN 50 UNIT in 0.9 % SODIUM CHLORIDE 99.5 ML IV SCH ×2 (05:30→09:00)
--- NOTE | 2022-04-23 05:43 | XRay Report ---
INDICATION: sepsis TECHNIQUE: AP portable semiupright chest x-ray COMPARISON: Previous chest x-rays dated 04/20/2022, 02/07/2022, 12/20/2021 FINDINGS: Lungs:Lungs are negative. No focal pulmonary parenchymal infiltrate or mass Heart, vascular:No significant cardiomegaly. Pulmonary vascularity is normal. No pulmonary edema or pulmonary congestion Mediastinum, leroy:No mediastinal widening. No hilar mass Pleura:No pleural fluid. No pleural-based mass or calcification Skeletal:Negative. IMPRESSION: 1. Negative AP chest x-ray 2. No significant interval change Interpreted and Authenticated by: Will Peck 04/23/22
[2022-04-23] MEDS: 0.9 % SODIUM CHLORIDE 1,000 ML IV SCH ×3 (06:04→12:40)
[2022-04-23] MEDS ORDERED: ONDANSETRON 4 MG/2 ML VIAL IV PRN (07:03)
[2022-04-23] MEDS ORDERED: LACTATED RINGERS 1,000 ML IV SCH (07:15)
--- NOTE | 2022-04-23 08:18 | EKG ---
[facility] Test Date: 2022-04-23 Pat Name: Tennille Castillo Department: ED Room: Gender: Female Owner: GREGORIO : 1945 Requested By: Abdi Grant Order Number: [id number] Reading MD: Will Lawler M.D. Measurements Intervals Taylor Rate: 116 P: 79 AL: 169 QRS: 50 QRSD: 113 T: 91 QT: 335 QTc: 466 Interpretive Statements Sinus tachycardia Probable left atrial enlargement Borderline intraventricular conduction delay Electronically Signed On 04-23-2022 8:18:27 PDT by Will Lawler M.D. /[id number]/[email or web address]/[id number]
[2022-04-23] MEDS: ACETAMINOPHEN 325 MG TABLET PO PRN ×2 (08:22→12:44)
[2022-04-23 08:24] LABS: Blood Urea Nitrogen 26 mg/dL (8-23); Calcium 7.8 mg/dL (8.6-10.4); Carbon Dioxide 6 mmol/L (22-30); Chloride 97 mmol/L (96-108); Glomerular Filtration Rate 36; Glucose 545 mg/dL (70-105)
[2022-04-23] MEDS: ENOXAPARIN 40 MG/0.4 ML SYRINGE SQ SCH (09:18)
[2022-04-23] MEDS: GABAPENTIN 300 MG CAPSULE PO SCH ×3 (10:23→21:10)
--- NOTE | 2022-04-23 10:56 | Internal Med History&Physical ---
HPI History of Present Illness Patient information: Note initiated : 04/23/22 at 10:50 am Service Date, if different from initiated Date: [] Patient: Tennille Castillo a 76 y/o F admitted on 04/23/22 for Anxiety. Chief Complaint: [Nausea, tremors, weakness] Chief complaint: DKA History of present illness: Ms. Castillo is a 76 year old F with a complex past medical history significant for frequent hospitalization, brittle diabetes with prior DKA, fibromyalgia, cirrhosis, COPD, and hypothyroidism who presents to the hospital with 2-day history of malaise, nausea, and severe tremors. She called EMS and she was brought to the hospital where she was found to be severely hyperglycemic with a blood sugar of greater than 700. She was found to have severe metabolic acidosis, hyponatremia with a sodium of 124, anion gap that was elevated at 30. The patient has been hospitalized recently in February for severe urinary tract infection at that point. She was supposed to go to a [place] [facility] facility but declined and went home. It is unclear if she is able to look after her at home. She states that she developed severe tremors and was unable to give herself insulin. Yesterday, she felt extremely weak and there was nobody to help out. She states that she does not have caregiving support from Saturday to Saturday. She states that her daughter was busy at work. Social work and case management will be involved regarding disposition. The hospitalist service was asked admit the patient for further management and evaluation of her diabetic ketoacidosis. Review of Systems All systems: reviewed and no additional remarkable complaints except as stated Constitutional Constitutional: Present as per HPI EENT Eyes: Present as per HPI; Absent blurry vision Cardiovascular Cardiovascular: Present as per HPI; Absent chest pain, dyspnea, dyspnea on exertion, leg edema or palpatations Respiratory Respiratory: Present as per HPI; Absent cough, dyspnea, dyspnea on exertion, wheezing or stridor Gastrointestinal Gastrointestinal: Present as per HPI, nausea and vomiting; Absent abdominal pain, diarrhea, dysphagia, hematemesis or melena Musculoskeletal Musculoskeletal: Present as per HPI; Absent joint swelling, limited range of motion, muscle cramps, muscle weakness or myalgias Integumentary Integumentary: Present as per HPI; Absent erythema, new lesions, rash or wounds Neurological Neurological: Present as per HPI; Absent abnormal gait, behavioral changes, focal weakness, headache(s), loss of vision, numbness, sensory deficit or syncope Endocrine Endocrine: Absent change in body appearance, fatigue or heat intolerance Hematologic/Lymphatic Hematologic/Lymphatic: Present as per HPI PFSH PFSH All Active Problems (Updated 04/23/22 @ 03:47 by Abdi Grant DO) Hypoglycemia (Acute) DKA (diabetic ketoacidosis) (Acute) Acute hyponatremia (Acute) Acute hyperkalemia (Acute) Acidosis, lactic (Acute) Metabolic acidosis (Acute) Blood in urine (Chronic) Diabetic keto-acidosis (Chronic) Pseudohyponatremia (Chronic) DKA (diabetic ketoacidosis) (Chronic) Hypomagnesemia (Chronic) Generalized weakness (Chronic) Acute dehydration (Chronic) Diabetic ketosis (Chronic) Acute dyspnea (Chronic) Obstructive sleep apnea (Chronic) DKA (diabetic ketoacidosis) (Chronic) Vulvovaginitis due to yeast (Chronic) Sleepwalking (Chronic) REM sleep behavior disorder (Chronic) Hypersomnia (Chronic) Snoring (Chronic) Tremor (Chronic) Neurofibromatosis 2 (Chronic) Trigger finger (Chronic) Sleep disturbance (Chronic) Arthralgia (Chronic) Pancreatitis (Chronic) Macular degeneration (Chronic) Hepatitis A (Chronic) Glaucoma (Chronic) Fibromyalgia (Chronic) DDD (degenerative disc disease), cervical (Chronic) Diabetic retinopathy (Chronic) Opioid dependence (Chronic) Stress (Chronic) Hard of hearing (Chronic) Multiple environmental allergies (Chronic) Fracture of lumbar spine (Chronic) Compression fracture of lumbosacral spine (Chronic) Abdominal pain (Chronic) Chronic pancreatitis (Chronic) Liver mass (Chronic) Cirrhosis of liver (Chronic) Constipation (Chronic) Neuropathy (Chronic) Chronic pain (Chronic) Essential tremor (Chronic) Bimalleolar ankle fracture (Chronic) Chronic bronchitis with acute exacerbation (Chronic) Dehydration (Chronic) Epistaxis (Chronic) Hypoxia (Chronic) Anterior epistaxis (Chronic) Candidiasis of mouth (Chronic) DKA (diabetic ketoacidosis) (Chronic) Conjunctivitis (Chronic) Bronchitis (Chronic) Dehiscence of closure of skin (Chronic) Anemia (Chronic) Elevated liver enzymes (Chronic) 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) Radiculopathy, sacral and sacrococcygeal region (Chronic) Radiculopathy, lumbosacral region (Chronic) Insomnia (Chronic) Levator syndrome (Chronic) Sacrococcygeal pain (Chronic) History of surgery (Chronic) Hypothyroidism (Chronic) Chronic bronchitis (Chronic) 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) Depression (Chronic) Anxiety (Chronic) Hypertension (Chronic) Osteoporosis (Chronic) Rectal pain (Chronic) Low back pain (Chronic) Pain in thoracic spine (Chronic) Age-related osteoporosis with current pathological fracture, vertebra(e), initial encounter for fracture (Chronic) Medical History Abdominal pain Acute exacerbation of chronic obstructive airways disease Age-related osteoporosis with current pathological fracture, vertebra(e), initial encounter for fracture Anemia Anterior epistaxis Anxiety Arthralgia Bilateral primary osteoarthritis of hip Bimalleolar ankle fracture Blood in urine Bronchitis Candidiasis of mouth Chronic bronchitis with acute exacerbation Chronic pain Chronic pancreatitis Cirrhosis of liver Compression fracture of lumbosacral spine Conjunctivitis Constipation DDD (degenerative disc disease), cervical Dehiscence of closure of skin Dehydration Depression Diabetic retinopathy DKA (diabetic ketoacidosis) Elevated liver enzymes Epistaxis Essential tremor Fibromyalgia Fracture of lumbar spine Glaucoma Hard of hearing Hepatitis A Hyperglycemia due to type 2 diabetes mellitus Hypersomnia Hypertension Hypothyroidism Hypoxia Insomnia Levator syndrome Lipomatosis Liver mass Low back pain Macular degeneration Multiple environmental allergies Neurofibromatosis 2 Neuropathy Obstructive sleep apnea Opioid dependence Osteoporosis Pain in thoracic spine Pancreatitis Radiculopathy, lumbosacral region Radiculopathy, sacral and sacrococcygeal region Rectal pain REM sleep behavior disorder Sacrococcygeal pain Sleep disturbance Sleepwalking Snoring Stress Tremor Trigger finger Surgical History History of appendectomy (~1970) History of arthroplasty of right ankle (~2017) History of cataract surgery (~2003) History of cholecystectomy History of colonoscopy (~06/26/18) History of decompression of median nerve (~2003) History of dilation and curettage History of eye surgery (~2005) Glaucoma History of hand surgery (~2003) Release of trigger finger, right History of left breast biopsy (~2005) History of oophorectomy History of surgery Vertebroplasty T12 w/sed 09/28/19 History of surgery retinopathy laser Stereotactic destruction of lesion using gamma radiation-2004 History of surgery on wrist History of tonsillectomy and adenoidectomy (~1970) Family History Mother Heart disease Fibromyalgia Father Malignant melanoma Malignant tumor of prostate Leukemia Social History (Updated 02/22/22 @ 15:40 by Gi Vernon) lives independently: Yes marital status: education level: college occupational status: retired pets and animals: No other: 2 children physical activity: none smoking status: Never smoker alcohol intake frequency: does not drink substance use type: does not use seatbelt use: always working smoke detector in home: Yes carbon monox detector in home: Yes MEDS/ALLERGIES Home Medications and Allergies Home Medications Medication Instructions Recorded Confirmed Type [id number] 40,000 cap PO TID 06/01/21 04/23/22 History 40,000-126,000-168,000 unit capsule, delay rel (Zenpep) Lactobacillus acidophilus 2 tab PO BID 07/15/21 04/23/22 History (Acidophilus chewable tablet) multivit [id number] 186 1 tab PO DAILY 07/15/21 04/23/22 History [Hair, Skin and Nails Advanced] trazodone 100 mg tablet 100 mg PO HSP PRN insomnia 08/22/21 04/23/22 History duloxetine 30 mg capsule,delayed 30 mg PO QDAY 09/20/21 04/23/22 History release acyclovir 400 mg tablet 1 tab PO BID 09/21/21 04/23/22 History gabapentin 800 mg tablet 1 tab PO TID 09/21/21 04/23/22 History cholecalciferol (vitamin D3) 50 50 mcg PO DAILY 12/04/21 04/23/22 History mcg (2,000 unit) capsule (Vitamin D3) zinc 50 mg tablet 50 mg PO DAILY 12/04/21 04/23/22 History fenofibrate micronized 43 mg 86 mg PO DAILY #30 caps 02/14/22 04/23/22 Rx capsule insulin degludec 100 unit/mL 30 unit (0.3 mL) subcut BID #10 mL 02/18/22 04/23/22 Rx subcutaneous solution (Tresiba U-100 Insulin) hyoscyamine sulfate 0.125 mg 0.125 mg PO Q6H PRN Abdominal 02/19/22 04/23/22 Rx sublingual tablet Discomfort #20 tabs insulin aspart U-100 100 unit/mL See Protocol subcut ACHS 04/23/22 04/23/22 History (3 mL) subcutaneous pen (Novolog Flexpen U-100 Insulin aspart) levothyroxine 25 mcg tablet 1 tab PO QAM 04/23/22 04/23/22 History propranolol 10 mg tablet 1 tab PO TID 04/23/22 04/23/22 History Allergies Allergy/AdvReac Type Severity Reaction Status Date / Time cephalexin [From Keflex] Allergy Intermediate Swelling Verified 04/23/22 09:25 Penicillins Allergy Mild Rash Verified 04/23/22 09:25 Anistreplase [From Eminase] Allergy Unknown UNKNOWN Verified 04/23/22 09:25 fenugreek Allergy Unknown UNKNOWN Verified 04/23/22 09:25 codeine AdvReac Mild Itching Verified 04/23/22 09:25 Erythromycin Base AdvReac Mild Itching Verified 04/23/22 09:25 Nortriptyline AdvReac Mild Nausea Verified 04/23/22 09:25 promethazine AdvReac Mild Fainting Verified 04/23/22 09:25 trulicity AdvReac Intermediate Other Uncoded 12/04/21 06:40 EXAM Constitutional Vitals: Temp Pulse Resp BP Pulse Ox O2 Del Method 97.2 F 98 H 15 130/58 100 04/23/22 08:01 04/23/22 10:01 04/23/22 10:01 04/23/22 10:01 04/23/22 10:01 04/23/22 02:22 General appearance: average body habitus Head Head exam: Present atraumatic, normal inspection and normocephalic Eye Eye exam: Present EOMI, normal appearance and PERRL; Absent conjunctival injection ENT ENT exam: Present mucous membranes dry; Absent normal exam Neck Neck exam: Present full ROM; Absent lymphadenopathy Respiratory Respiratory exam: Present normal respiratory exam and CTAB; Absent decreased breath sounds, respiratory distress or wheezes Cardiovascular Cardiovascular exam: Present RRR and tachycardia; Absent JVD GI/Abdominal GI/Abdominal exam: Present normal bowel sounds and soft; Absent diminished bowel sounds, distended, guarding, mass, rebound or tenderness Neurological Exam Neurological exam: Present alert, CN II-XII intact and oriented X3 Psychiatric Psychiatric exam: Present normal affect and normal mood Skin Skin exam: Present intact and warm; Absent erythema, pallor, petechiae or rash DATA Data Completed and Pending Labs: Labs from last 24 hours 04/23/22 04/23/2204/23/22 07:18 02:47 02:40 WBC 19.0 H RBC 4.29 Hgb 13.2 Hct 43.5 POC Hct 42.0 MCV 101.4 H MCH 30.8 MCHC 30.3 L RDW 13.2 Plt Count 300 MPV 10.7 H Immature Gran % (Auto) 1.6 H Neut % (Auto) 81.9 H Lymph % (Auto) 10.2 L [place] % (Auto) 5.5 Eos % (Auto) 0.3 Baso % (Auto) 0.5 Lymph # (Auto) 1.93 [place] # (Auto) 1.05 H Eos # (Auto) 0.05 Baso # (Auto) 0.09 Immature Gran # 0.31 H Absolute Neutrophils 15.58 H POC Sodium 124 L Sodium 133 POC Potassium 5.8 H Potassium 4.5 POC Chloride 97 Chloride 97 Carbon Dioxide 6 L* POC Total CO2 7.0 L* Anion Gap 30.0 H POC BUN 28 H BUN 26 H Creatinine 1.4 H POC Creatinine 1.1 GFR Calculation 36 Glucose 545 H* POC Glucose > 700 H* Calcium 7.8 L POC WB Ioniz Calcium 1.21 A/P Assessment and plan (1) DKA (diabetic ketoacidosis): Status: Acute Qualifiers: Diabetes mellitus complication detail: without coma Diabetes mellitus type: type 2 Qualified Code(s): E11.10 - Type 2 diabetes mellitus with ketoacidosis without coma (2) Acute hyponatremia: Status: Acute (3) Acidosis, lactic: Status: Acute (4) Acute hyperkalemia: Status: Acute (5) Metabolic acidosis: Status: Acute Narrative A/P Narrative: The patient was unable to give herself insulin at home due to severe tremors. It is unclear if she is able to look after herself at home. She is found to have severe anion gap metabolic acidosis due to diabetic ketoacidosis. She has been placed on an insulin infusion and admitted to the ICU. She will be aggressively fluid resuscitated with NS 150 cc an hour. We will monitor and replete her electrolytes closely. Once her anion gap is closed, we will discontinue her insulin infusion. At this time she will be kept NPO. Medication reconciliation is pending. Time Spent With Patient Time: Total time spent is greater than 50% in coordination of care (as documented) at patient's floor/unit and/or counseling patient: Total time spent with greater than 50% in coordination of care (as documented) at patient's floor/unit and/or counseling patient:: Greater than 70 minutes Total Critical Care Time: 50
[2022-04-23] MEDS: DEXTROSE 5%-1/2NS 1,000 ML IV SCH ×2 (12:39→18:47)
[2022-04-23] MEDS: 0.9 % SODIUM CHLORIDE 10 ML SYRINGE IV SCH ×2 (14:12→21:10)
[2022-04-23 14:20] LABS: Blood Urea Nitrogen 23 mg/dL (8-23); Calcium 8.2 mg/dL (8.6-10.4); Carbon Dioxide 13 mmol/L (22-30); Chloride 105 mmol/L (96-108); Glomerular Filtration Rate 48; Glucose 180 mg/dL (70-105)
[2022-04-24 01:02] LABS: Blood Urea Nitrogen 17 mg/dL (8-23); Calcium 7.8 mg/dL (8.6-10.4); Carbon Dioxide 15 mmol/L (22-30); Chloride 109 mmol/L (96-108); Glomerular Filtration Rate 62; Glucose 212 mg/dL (70-105)
[2022-04-24] MEDS: DEXTROSE 5%-1/2NS 1,000 ML IV SCH (01:20)
[2022-04-24] MEDS ORDERED: 0.9 % SODIUM CHLORIDE 1,000 ML IV SCH (01:45)
[2022-04-24] MEDS: 0.9 % SODIUM CHLORIDE 10 ML SYRINGE IV SCH ×3 (05:07→20:28)
[2022-04-24 07:06] LABS: Basophils # (Auto) 0.03 K/mcL (0.00-0.30); Basophils % (Auto) 0.3 % (0.0-2.0); Eosinophils # (Auto) 0.06 K/mcL (0.00-0.70); Eosinophils % (Auto) 0.6 % (0.0-7.0); Hematocrit 32.9 % (34.1-44.9); Hemoglobin 11.2 g/dL (11.2-15.7); Lymphocytes # (Auto) 1.91 K/mcL (1.50-4.80); Lymphocytes % (Auto) 19.1 % (15.5-49.0); Mean Cell Volume 90.6 fL (80.0-100.0); Mean Platelet Volume 10.4 fL (7.4-10.4); Monocytes # (Auto) 0.51 K/mcL (0.10-0.90); Monocytes % (Auto) 5.1 % (1.0-12.0); Neutrophils % (Auto) 74.5 % (38.0-78.0); Platelet Count 155 K/mcL (140-440); RBC 3.63 M/mcL (3.59-5.38); Red Cell Distribution Width 13.5 % (11.5-14.5)
[2022-04-24] MEDS: ACETAMINOPHEN 325 MG TABLET PO PRN (07:06)
[2022-04-24 07:19] LABS: Blood Urea Nitrogen 15 mg/dL (8-23); Calcium 7.9 mg/dL (8.6-10.4); Carbon Dioxide 14 mmol/L (22-30); Chloride 112 mmol/L (96-108); Glomerular Filtration Rate 71; Glucose 365 mg/dL (70-105)
[2022-04-24] MEDS ORDERED: DEXTROSE 31 GM ORAL.SUSP PO PRN (07:29)
[2022-04-24] MEDS ORDERED: DEXTROSE 50% 50 ML VIAL IV PRN (07:29)
[2022-04-24] MEDS: GABAPENTIN 300 MG CAPSULE PO SCH (07:45)
[2022-04-24] MEDS: INSULIN LISPRO 1 UNIT/0.01 ML UNIT SQ SCH ×4 (07:45→20:32)
[2022-04-24] MEDS: ENOXAPARIN 40 MG/0.4 ML SYRINGE SQ SCH (07:45)
[2022-04-24] MEDS: LEVOTHYROXINE 25 MCG TABLET PO SCH (07:45)
[2022-04-24] MEDS: LEVOTHYROXINE 100 MCG TABLET PO SCH (07:50)
[2022-04-24] MEDS: PROPRANOLOL 10 MG TABLET PO SCH ×3 (07:50→20:27)
[2022-04-24] MEDS ORDERED: INSULIN GLARGINE, HUMAN 1 UNIT/0.01 ML SQ SCH (09:00)
[2022-04-24] MEDS: INSULIN GLARGINE, HUMAN 1 UNIT/0.01 ML SQ SCH ×2 (09:34→20:31)
--- NOTE | 2022-04-24 10:36 | Internal Med Progress Note ---
SUBJECTIVE Subjective Patient information: Note initiated : 04/24/22 at 10:34 am Service Date, if different from initiated Date: [] Patient: Tennille Castillo 76 y/o F admitted on 04/23/22 for Anxiety. Chief Complaint: [Nausea, weakness, tremors] Principal diagnosis: DKA Interval history: The patient was resting comfortably in bed. She had no active complaints or concerns. She is looking and feeling much better. Discussed the case with the RN. Constitutional Vitals: Vital Signs Temp Pulse Resp BP Pulse Ox O2 Del Method O2 Flow Rate 97.9 F 77 16 124/57 97 0 04/24/22 08:01 04/24/22 10:00 04/24/22 10:00 04/24/22 10:00 04/24/22 10:00 04/24/22 01:31 04/24/22 05:01 Period Temp Pulse Resp BP Sys/Rosario Pulse Ox O2 Del Method O2 Flow Rate Last 24 Hr 97.9 F-99.1 F 74-101 09-06 101-147/44-79 94-100 Room Air-Room Air 0-0 Intake and Output 04/23/22 04/24/22 04/24/22 21:59 05:59 13:59 Intake Total 949 1306 350 Output Total 0 900 1150 Balance 949 406 -800 Weight 72.62 kg Intake & Output: Intake & Output 04/23/22 04/24/22 04/24/22 21:59 05:59 13:59 Intake Total 949 1306 350 Output Total 0 900 1150 Balance 949 406 -800 Weight 72.62 kg Intake: IV 949 1056 Dextrose 5%-1/2Ns IV Solution 1 918 1038 ,000 ml @ 150 mls/hr IV .[id number] PEG Rx#:[id number] HumuLIN R 50 UNIT In Sodium 31 18 Chloride 0.9% 99.5 ml @ 4 UNIT/ HR 8 mls/hr IV DUR PEG Rx#: [id number] Oral 0 250 350 Output: Void Amount 0 0 1150 Urine/Stool Mix 900 Other: Meal Breakfast Percent of Meal Consumed 100% Feeding Ability Independent Urine Appearance Clear Urine Color Yellow Urine Odor Normal Stool Size Small Stool Color Brown Stool Consistency Soft Judy # Bowel Movements 0 Head Head exam: Present atraumatic and normal inspection Eye Eye exam: Present normal appearance ENT ENT exam: Present mucous membranes moist, normal exam and normal external ear exam Neck Neck exam: Present normal inspection Respiratory Respiratory exam: Present normal respiratory exam Cardiovascular Cardiovascular exam: Present normal rate and rhythm GI/Abdominal GI/Abdominal exam: Present normal bowel sounds Back Exam Back exam: Present normal inspection Neurological Exam Neurological exam: Present alert and oriented X3 Skin Skin exam: Present intact and warm OBJ DATA Labs CBC & Chem 7: 04/24/22 05:31 04/24/22 05:31 Labs: Abnormal Lab Results 04/24/22 04/24/22 04/23/22 05:31 05:31 23:59 WBC Hct 32.9 L MCV MCHC MPV Immature Gran % (Auto) Neut % (Auto) Lymph % (Auto) [place] # (Auto) Immature Gran # Absolute Neutrophils POC Sodium POC Potassium Chloride 112 H 109 H Carbon Dioxide 14 L 15 L POC Total CO2 Anion Gap POC BUN BUN Creatinine Glucose 365 H 212 H POC Glucose Calcium 7.9 L 7.8 L 04/23/22 04/23/22 04/23/22 13:22 07:18 02:47 WBC Hct MCV MCHC MPV Immature Gran % (Auto) Neut % (Auto) Lymph % (Auto) [place] # (Auto) Immature Gran # Absolute Neutrophils POC Sodium 124 L POC Potassium 5.8 H Chloride Carbon Dioxide 13 L 6 L* POC Total CO2 7.0 L* Anion Gap 18.0 H 30.0 H POC BUN 28 H BUN 26 H Creatinine 1.4 H Glucose 180 H 545 H* POC Glucose > 700 H* Calcium 8.2 L 7.8 L 04/23/22 02:40 WBC 19.0 H Hct MCV 101.4 H MCHC 30.3 L MPV 10.7 H Immature Gran % (Auto) 1.6 H Neut % (Auto) 81.9 H Lymph % (Auto) 10.2 L [place] # (Auto) 1.05 H Immature Gran # 0.31 H Absolute Neutrophils 15.58 H POC Sodium POC Potassium Chloride Carbon Dioxide POC Total CO2 Anion Gap POC BUN BUN Creatinine Glucose POC Glucose Calcium Meds: Medications Acetaminophen (Acetaminophen 325 Mg Tablet) 650 mg PO Q4-6HP PRN; Protocol PRN Reason: Per Pain Protocol/Fever > 101 Last Admin: 04/24/22 07:06 Dose: 650 mg Dextrose (Dextrose 50% 50 Ml Vial) 0 ml IV UD PRN PRN Reason: Per Sliding Scale Diagnostic Test (Pha) (Accu-Chek 1 Each Strip) 1 each FS ACHS [facility] Last Admin: 04/24/22 07:00 Dose: 1 each Enoxaparin Sodium (Enoxaparin 40 Mg/0.4 Ml Syringe) 40 mg SQ DAILY [facility] Last Admin: 04/24/22 07:45 Dose: 40 mg Gabapentin (Gabapentin 300 Mg Capsule) 300 mg PO TID [facility] Last Admin: 04/24/22 07:45 Dose: 300 mg Glucose (Dextrose 31 Gm Oral.Susp) 15 gm PO PRN PRN PRN Reason: Hypoglycemia Sodium Chloride (Sodium Chloride 0.9%) 1,000 mls @ 75 mls/hr IV .[id number] [facility] Last Admin: 04/24/22 01:45 Dose: 75 mls/hr Insulin Glargine (Insulin Glargine, Human 1 Unit/0.01 Ml) 30 unit SQ BID [facility] Last Admin: 04/24/22 09:34 Dose: Not Given Insulin Human Lispro (Insulin Lispro 1 Unit/0.01 Ml Unit) 0 unit SQ [facility]; Protocol Last Admin: 04/24/22 07:45 Dose: 18 unit Levothyroxine Sodium (Levothyroxine 25 Mcg Tablet) 25 mcg PO QAM [facility] Last Admin: 04/24/22 07:45 Dose: 25 mcg Levothyroxine Sodium (Levothyroxine 100 Mcg Tablet) 100 mcg PO QDAY [facility] Last Admin: 04/24/22 07:50 Dose: 100 mcg Ondansetron HCl (Ondansetron 4 Mg/2 Ml Vial) 4 mg IV Q4-6HP PRN; Protocol PRN Reason: Nausea And Vomiting Propranolol HCl (Propranolol 10 Mg Tablet) 10 mg PO TID [facility] Last Admin: 04/24/22 07:50 Dose: 10 mg Sodium Chloride (0.9 % Sodium Chloride 10 Ml Syringe) 10 ml IV Q8 [facility] Last Admin: 04/24/22 05:07 Dose: 10 ml A/P Assessment and plan (1) DKA (diabetic ketoacidosis): Status: Acute Qualifiers: Diabetes mellitus complication detail: without coma Diabetes mellitus type: type 2 Qualified Code(s): E11.10 - Type 2 diabetes mellitus with ketoacidosis without coma (2) Acute hyponatremia: Status: Acute (3) Acidosis, lactic: Status: Acute (4) Acute hyperkalemia: Status: Acute (5) Metabolic acidosis: Status: Acute Narrative A/P Narrative: The patient was unable to give herself insulin at home due to severe tremors. It is unclear if she is able to look after herself at home. She is found to have severe anion gap metabolic acidosis due to diabetic ketoacidosis. She has been placed on an insulin infusion and admitted to the ICU. She will be aggressively fluid resuscitated with NS 150 cc an hour. We will monitor and replete her electrolytes closely. Once her anion gap is closed, we will discontinue her insulin infusion. At this time she will be kept NPO. Medication reconciliation is pending. 04/24: The patient's insulin infusion has been off since 2 AM. Her anion gap is finally closed and her electrolyte derangements, and metabolic acidosis have improved. She has been switched to Lantus 30 units twice daily and high-dose insulin sliding scale. She is currently being assessed by occupational therapy and physical therapy. Social work and case management will work on disposition. Time Spent With Patient Time: Total time spent is greater than 50% in coordination of care (as documented) at patient's floor/unit and/or counseling patient: Total time spent with greater than 50% in coordination of care (as documented) at patient's floor/unit and/or counseling patient:: 25 - 35 minutes
--- NOTE | 2022-04-24 13:05 | Internal Med Progress Note ---
SUBJECTIVE Subjective Patient information: Note initiated : 04/24/22 at 1:01 pm Service Date, if different from initiated Date: [] Patient: Tennille Castillo 76 y/o F admitted on 04/23/22 for Anxiety. Chief Complaint: [] Principal diagnosis: DKA Interval history: The patient was unable to give herself insulin at home due to severe tremors. It is unclear if she is able to look after herself at home. She is found to have severe anion gap metabolic acidosis due to diabetic ketoacidosis. She has been placed on an insulin infusion and admitted to the ICU. She will be aggressively fluid resuscitated with NS 150 cc an hour. We will monitor and replete her electrolytes closely. Once her anion gap is closed, we will di scontinue her insulin infusion. At this time she will be kept NPO. Medication reconciliation is pending. 04/24: The patient's insulin infusion has been off since 2 AM. Her anion gap is finally closed and her electrolyte derangements, and metabolic acidosis have improved. She has been switched to Lantus 30 units twice daily and high-dose insulin sliding scale. She is currently being assessed by occupational therapy and physical therapy. Social work and case management will work on disposition. 04/25: Constitutional Vitals: Vital Signs Temp Pulse Resp BP Pulse Ox O2 Del Method O2 Flow Rate 97.9 F 73 19 118/41 97 0 04/24/22 08:01 04/24/22 11:01 04/24/22 11:01 04/24/22 11:01 04/24/22 11:01 04/24/22 01:31 04/24/22 05:01 Period Temp Pulse Resp BP Sys/Rosario Pulse Ox O2 Del Method O2 Flow Rate Last 24 Hr 97.9 F-99 F 73-89 12-19 101-147/41-79 94-100 Room Air-Room Air 0-0 Intake and Output 04/23/22 04/24/22 04/24/22 21:59 05:59 13:59 Intake Total 949 1306 350 Output Total 0 900 1150 Balance 949 406 -800 Weight 72.62 kg Intake & Output: Intake & Output 04/23/22 04/24/22 04/24/22 21:59 05:59 13:59 Intake Total 949 1306 350 Output Total 0 900 1150 Balance 949 406 -800 Weight 72.62 kg Intake: IV 949 1056 Dextrose 5%-1/2Ns IV Solution 1 918 1038 ,000 ml @ 150 mls/hr IV .[id number] [facility] Rx#:[id number] HumuLIN R 50 UNIT In Sodium 31 18 Chloride 0.9% 99.5 ml @ 4 UNIT/ HR 8 mls/hr IV DUR [facility] Rx#: [id number] Oral 0 250 350 Output: Void Amount 0 0 1150 Urine/Stool Mix 900 Other: Meal Breakfast Percent of Meal Consumed 100% Feeding Ability Independent Urine Appearance Clear Urine Color Yellow Urine Odor Normal Stool Size Small Stool Color Brown Stool Consistency Soft Judy # Bowel Movements 0 Exam: General: Alert, Awake, No acute Distress Eyes/N/T: EOMI, Head/Neck: neck supple, CV: RRR, 2/6 SM Pulm: mild rales at base, no wheezing/rhonchi Abd: soft, nontender, +BS x4 Ext: no clubbing/cyanosis/edema Neuro: Alert, no focal deficits, moves all extremities, Skin: warm/dry OBJ DATA Labs CBC & Chem 7: 04/24/22 05:31 04/24/22 05:31 Labs: Abnormal Lab Results 04/24/22 04/24/22 04/23/22 05:31 05:31 23:59 WBC Hct 32.9 L MCV MCHC MPV Immature Gran % (Auto) Neut % (Auto) Lymph % (Auto) [place] # (Auto) Immature Gran # Absolute Neutrophils POC Sodium POC Potassium Chloride 112 H 109 H Carbon Dioxide 14 L 15 L POC Total CO2 Anion Gap POC BUN BUN Creatinine Glucose 365 H 212 H POC Glucose Calcium 7.9 L 7.8 L 04/23/22 04/23/22 04/23/22 13:22 07:18 02:47 WBC Hct MCV MCHC MPV Immature Gran % (Auto) Neut % (Auto) Lymph % (Auto) [place] # (Auto) Immature Gran # Absolute Neutrophils POC Sodium 124 L POC Potassium 5.8 H Chloride Carbon Dioxide 13 L 6 L* POC Total CO2 7.0 L* Anion Gap 18.0 H 30.0 H POC BUN 28 H BUN 26 H Creatinine 1.4 H Glucose 180 H 545 H* POC Glucose > 700 H* Calcium 8.2 L 7.8 L 04/23/22 02:40 WBC 19.0 H Hct MCV 101.4 H MCHC 30.3 L MPV 10.7 H Immature Gran % (Auto) 1.6 H Neut % (Auto) 81.9 H Lymph % (Auto) 10.2 L [place] # (Auto) 1.05 H Immature Gran # 0.31 H Absolute Neutrophils 15.58 H POC Sodium POC Potassium Chloride Carbon Dioxide POC Total CO2 Anion Gap POC BUN BUN Creatinine Glucose POC Glucose Calcium Meds: Medications Acetaminophen (Acetaminophen 325 Mg Tablet) 650 mg PO Q4-6HP PRN; Protocol PRN Reason: Per Pain Protocol/Fever > 101 Last Admin: 04/24/22 07:06 Dose: 650 mg Dextrose (Dextrose 50% 50 Ml Vial) 0 ml IV UD PRN PRN Reason: Per Sliding Scale Diagnostic Test (Pha) (Accu-Chek 1 Each Strip) 1 each FS [facility] Last Admin: 04/24/22 11:21 Dose: 1 each Enoxaparin Sodium (Enoxaparin 40 Mg/0.4 Ml Syringe) 40 mg SQ DAILY [facility] Last Admin: 04/24/22 07:45 Dose: 40 mg Gabapentin (Gabapentin 300 Mg Capsule) 300 mg PO TID [facility] Last Admin: 04/24/22 07:45 Dose: 300 mg Glucose (Dextrose 31 Gm Oral.Susp) 15 gm PO PRN PRN PRN Reason: Hypoglycemia Sodium Chloride (Sodium Chloride 0.9%) 1,000 mls @ 75 mls/hr IV .[id number] [facility] Last Admin: 04/24/22 01:45 Dose: 75 mls/hr Insulin Glargine (Insulin Glargine, Human 1 Unit/0.01 Ml) 30 unit SQ BID [facility] Last Admin: 04/24/22 09:34 Dose: Not Given Insulin Human Lispro (Insulin Lispro 1 Unit/0.01 Ml Unit) 0 unit SQ [facility]; Protocol Last Admin: 04/24/22 11:23 Dose: 15 unit Levothyroxine Sodium (Levothyroxine 25 Mcg Tablet) 25 mcg PO QAM [facility] Last Admin: 04/24/22 07:45 Dose: 25 mcg Levothyroxine Sodium (Levothyroxine 100 Mcg Tablet) 100 mcg PO QDAY [facility] Last Admin: 04/24/22 07:50 Dose: 100 mcg Ondansetron HCl (Ondansetron 4 Mg/2 Ml Vial) 4 mg IV Q4-6HP PRN; Protocol PRN Reason: Nausea And Vomiting Propranolol HCl (Propranolol 10 Mg Tablet) 10 mg PO TID [facility] Last Admin: 04/24/22 07:50 Dose: 10 mg Sodium Chloride (0.9 % Sodium Chloride 10 Ml Syringe) 10 ml IV Q8 [facility] Last Admin: 04/24/22 05:07 Dose: 10 ml A/P Narrative A/P Narrative: A: #Diabetic ketoacidosis: -A1c 12.9 in December - #Poorly controlled insulin-dependent diabetes mellitus: #Metabolic acidosis: #Coronary artery disease: stable #Hypothyroidism: #Chronic pancreatitis: #Hypertriglyceridemia: #Essential tremor: Plan -started home basal 30 bid, nighttime snack -Replace electrolytes as needed -Continue home duloxetine/gabapentin/levothyroxine -cont fenofibrate -Continue her home pancreatic enzyme supplements -PT and OT -CM for SNF placement -DVT prophylaxis: lovenox CODE STATUS: Limited Time Spent With Patient Time: Total time spent is greater than 50% in coordination of care (as documented) at patient's floor/unit and/or counseling patient:
[2022-04-24] MEDS: ZENPEP PO SCH ×2 (14:15→20:30)
[2022-04-24] MEDS: SODIUM BICARBONATE 650 MG TABLET PO SCH ×3 (14:15→20:28)
[2022-04-24] MEDS: GABAPENTIN 400 MG CAPSULE PO SCH ×2 (14:15→20:30)
[2022-04-24] MEDS: HYOSCYAMINE SULFATE 0.125 MG TABLET PO PRN ×2 (14:29→20:41)
[2022-04-24] MEDS ORDERED: MAGNESIUM SULFATE 2 GM/50 ML BAG IV PRN (17:04)
[2022-04-24] MEDS ORDERED: POTASSIUM CHLORIDE 20 MEQ TABLET PO PRN ×2 (17:07→17:20)
[2022-04-24] MEDS ORDERED: POTASSIUM CHLORIDE 40 MEQ in DEXTROSE 5% IN WATER 500 ML IV PRN (17:11)
[2022-04-24 19:45] LABS: Appearance,Urine Clear (Clear); Bilirubin,Urine Negative (Negative); Color,Urine Yellow; Culture Indicated,Urine yes; Glucose,Urine (UA) >=1000 mg/dL mg/dL (Negative); Ketones,Urine Trace mg/dL (Negative); Leukocyte Esterase,Urine Trace /uL (Negative); Nitrate,Urine Negative (Negative); Protein,Urine Negative (Negative); Urine Blood Moderate ery/mcL (Negative); Urine RBC 10 /hpf (0-3); Urine Squamous Epithelial Cell < 1 /hpf (0-4); Urine WBC 30 /hpf (0-4); Urobilinogen,Urine Normal
[2022-04-24] MEDS: LACTOBACILLUS 1 CAPSULE PO SCH (20:27)
[2022-04-24] MEDS: traZODone HCL 100 MG TABLET PO PRN (22:09)
[2022-04-25] MEDS: HYOSCYAMINE SULFATE 0.125 MG TABLET PO PRN ×3 (03:10→15:18)
[2022-04-25] MEDS: 0.9 % SODIUM CHLORIDE 10 ML SYRINGE IV SCH ×3 (05:25→21:20)
[2022-04-25 07:09] LABS: Blood Urea Nitrogen 10 mg/dL (8-23); Calcium 8.2 mg/dL (8.6-10.4); Carbon Dioxide 20 mmol/L (22-30); Chloride 115 mmol/L (96-108); Glomerular Filtration Rate 88; Glucose 73 mg/dL (70-105)
[2022-04-25] MEDS: INSULIN LISPRO 1 UNIT/0.01 ML UNIT SQ SCH ×4 (07:41→21:05)
[2022-04-25] MEDS: ACETAMINOPHEN 325 MG TABLET PO PRN (07:50)
--- NOTE | 2022-04-25 07:54 | Internal Med Progress Note ---
SUBJECTIVE Subjective Patient information: Note initiated : 04/25/22 at 7:50 am Service Date, if different from initiated Date: [] Patient: Tennille Castillo 76 y/o F admitted on 04/23/22 for Anxiety. Chief Complaint: [] Principal diagnosis: DKA Interval history: The patient was unable to give herself insulin at home due to severe tremors. It is unclear if she is able to look after herself at home. She is found to have severe anion gap metabolic acidosis due to diabetic ketoacidosis. She has been placed on an insulin infusion and admitted to the ICU. She will be aggressively fluid resuscitated with NS 150 cc an hour. We will monitor and replete her electrolytes closely. Once her anion gap is closed, we will di scontinue her insulin infusion. At this time she will be kept NPO. Medication reconciliation is pending. 04/24: The patient's insulin infusion has been off since 2 AM. Her anion gap is finally closed and her electrolyte derangements, and metabolic acidosis have improved. She has been switched to Lantus 30 units twice daily and high-dose insulin sliding scale. She is currently being assessed by occupational therapy and physical therapy. Social work and case management will work on disposition. 04/25: Patient blood glucose was low range this morning, patient did not have a bedtime snack. She had a headache this morning has resolved. We will institute nighttime snack, she does take a nighttime snack at home. Patient states her latest insulin regimen was 30 in the morning and 20 5 at night of the long- acting. Hypokalemia this morning of 2.8. Bicarb improved. Elevated chloride. A1c 12.3. Constitutional Vitals: Vital Signs Temp Pulse Resp BP Pulse Ox O2 Del Method O2 Flow Rate 97.8 F 69 16 117/62 97 0 04/25/22 03:16 04/25/22 00:26 04/25/22 03:16 04/25/22 03:16 04/25/22 03:16 04/25/22 00:26 04/25/22 03:16 Period Temp Pulse Resp BP Sys/Rosario Pulse Ox O2 Del Method O2 Flow Rate Last 24 Hr 97.1 F-98.3 F 69-78 14-19 99-145/41-102 95-99 Room Air-Room Air 0-0 Intake and Output 04/24/22 04/25/22 04/25/22 21:59 05:59 13:59 Intake Total 1690 1050 240 Output Total 2300 1000 Balance -610 50 240 Weight 74.797 kg Intake & Output: Intake & Output 04/24/22 04/25/22 04/25/22 21:59 05:59 13:59 Intake Total 1690 1050 240 Output Total 2300 1000 Balance -610 50 240 Weight 74.797 kg Intake: IV 1000 Sodium Chloride 0.9% 1,000 ml @ 1000 75 mls/hr IV .[id number] [facility] Rx#: [id number] Oral 690 1050 240 Output: Void Amount 25 0 Urine/Stool Mix 2225 1000 Stool 50 Other: Meal Dinner Percent of Meal Consumed 100% Feeding Ability Independent Urine Appearance Clear Clear Urine Color Straw Straw Stool Size Small Small Stool Color Brown Stool Consistency Liquid Loose # Bowel Movements 1 Exam: General: Alert, Awake, No acute Distress Eyes/N/T: EOMI, Head/Neck: neck supple, CV: RRR, 2/6 SM Pulm: mild rales at base, no wheezing/rhonchi Abd: soft, nontender, +BS x4 Ext: no clubbing/cyanosis/edema Neuro: Alert, no focal deficits, moves all extremities, Skin: warm/dry OBJ DATA Labs CBC & Chem 7: 04/24/22 05:31 04/25/22 05:11 Labs: Abnormal Lab Results 04/25/22 04/24/22 04/24/22 05:11 18:40 05:31 WBC Hct MCV MCHC MPV Immature Gran % (Auto) Neut % (Auto) Lymph % (Auto) [place] # (Auto) Immature Gran # Absolute Neutrophils POC Sodium POC Potassium Potassium 2.8 L* Chloride 115 H 112 H Carbon Dioxide 20 L 14 L POC Total CO2 Anion Gap POC BUN BUN Creatinine Glucose 365 H POC Glucose Calcium 8.2 L 7.9 L Urine Glucose (UA) >=1000 mg/dl A Urine Ketones Trace A Urine Occult Blood Moderate A Ur Leukocyte Esterase Trace A Urine RBC 10 H Urine WBC 30 H 04/24/22 04/23/22 04/23/22 05:31 23:59 13:22 WBC Hct 32.9 L MCV MCHC MPV Immature Gran % (Auto) Neut % (Auto) Lymph % (Auto) [place] # (Auto) Immature Gran # Absolute Neutrophils POC Sodium POC Potassium Potassium Chloride 109 H Carbon Dioxide 15 L 13 L POC Total CO2 Anion Gap 18.0 H POC BUN BUN Creatinine Glucose 212 H 180 H POC Glucose Calcium 7.8 L 8.2 L Urine Glucose (UA) Urine Ketones Urine Occult Blood Ur Leukocyte Esterase Urine RBC Urine WBC 04/23/22 04/23/22 04/23/22 07:18 02:47 02:40 WBC 19.0 H Hct MCV 101.4 H MCHC 30.3 L MPV 10.7 H Immature Gran % (Auto) 1.6 H Neut % (Auto) 81.9 H Lymph % (Auto) 10.2 L [place] # (Auto) 1.05 H Immature Gran # 0.31 H Absolute Neutrophils 15.58 H POC Sodium 124 L POC Potassium 5.8 H Potassium Chloride Carbon Dioxide 6 L* POC Total CO2 7.0 L* Anion Gap 30.0 H POC BUN 28 H BUN 26 H Creatinine 1.4 H Glucose 545 H* POC Glucose > 700 H* Calcium 7.8 L Urine Glucose (UA) Urine Ketones Urine Occult Blood Ur Leukocyte Esterase Urine RBC Urine WBC Meds: Medications Acetaminophen (Acetaminophen 325 Mg Tablet) 650 mg PO Q4-6HP PRN; Protocol PRN Reason: Per Pain Protocol/Fever > 101 Last Admin: 04/24/22 07:06 Dose: 650 mg Dextrose (Dextrose 50% 50 Ml Vial) 0 ml IV UD PRN PRN Reason: Per Sliding Scale Diagnostic Test (Pha) (Accu-Chek 1 Each Strip) 1 each FS ACHS [facility] Last Admin: 04/25/22 07:40 Dose: 1 each Duloxetine HCl (Duloxetine 30 Mg Capsule) 30 mg PO QDAY [facility] Enoxaparin Sodium (Enoxaparin 40 Mg/0.4 Ml Syringe) 40 mg SQ DAILY [facility] Last Admin: 04/24/22 07:45 Dose: 40 mg Fenofibrate (Fenofibrate 43 Mg Capsule) 86 mg PO DAILY [facility] Gabapentin (Gabapentin 400 Mg Capsule) 800 mg PO TID [facility] Last Admin: 04/24/22 20:30 Dose: 800 mg Glucose (Dextrose 31 Gm Oral.Susp) 15 gm PO PRN PRN PRN Reason: Hypoglycemia Hyoscyamine (Hyoscyamine Sulfate 0.125 Mg Tablet) 0.125 mg PO Q6H PRN PRN Reason: Abdominal Discomfort Last Admin: 04/25/22 03:10 Dose: 0.125 mg Magnesium Sulfate (Magnesium Sulfate) 2 gm in 50 mls @ 25 mls/hr IV PRN PRN PRN Reason: Magnesium </= 1.6 Potassium Chloride 40 meq/ (Dextrose) 520 mls @ 130 mls/hr IV PRN PRN PRN Reason: Potassium < 3 Insulin Glargine (Insulin Glargine, Human 1 Unit/0.01 Ml) 30 unit SQ BID [facility] Last Admin: 04/24/22 20:31 Dose: 30 units Insulin Human Lispro (Insulin Lispro 1 Unit/0.01 Ml Unit) 0 unit SQ ACHS [facility]; Protocol Last Admin: 04/25/22 07:41 Dose: Not Given Lactobacillus Rhamnosus (Lactobacillus 1 Capsule) 2 cap PO BID [facility] Last Admin: 04/24/22 20:27 Dose: 2 cap Levothyroxine Sodium (Levothyroxine 25 Mcg Tablet) 25 mcg PO QAM [facility] Last Admin: 04/24/22 07:45 Dose: 25 mcg Levothyroxine Sodium (Levothyroxine 100 Mcg Tablet) 100 mcg PO QDAY [facility] Last Admin: 04/24/22 07:50 Dose: 100 mcg Ondansetron HCl (Ondansetron 4 Mg/2 Ml Vial) 4 mg IV Q4-6HP PRN; Protocol PRN Reason: Nausea And Vomiting Zenpep 40,000-126, (000-168,000) 1 dose PO TID [facility] Last Admin: 04/24/22 20:30 Dose: Not Given Potassium Chloride (Potassium Chloride 20 Meq Tablet) 40 meq PO PRN PRN PRN Reason: Potassium is < 3 Potassium Chloride (Potassium Chloride 20 Meq Tablet) 40 meq PO PRN PRN PRN Reason: Potassium is 3-3.5 Propranolol HCl (Propranolol 10 Mg Tablet) 10 mg PO TID [facility] Last Admin: 04/24/22 20:27 Dose: 10 mg Sodium Bicarbonate (Sodium Bicarbonate 650 Mg Tablet) 1,300 mg PO TID [facility] Last Admin: 04/24/22 20:28 Dose: 1,300 mg Sodium Chloride (0.9 % Sodium Chloride 10 Ml Syringe) 10 ml IV Q8 [facility] Last Admin: 04/25/22 05:25 Dose: 10 ml Trazodone HCl (Trazodone Hcl 100 Mg Tablet) 100 mg PO HSP PRN PRN Reason: insomnia Last Admin: 04/24/22 22:09 Dose: 100 mg A/P Narrative A/P Narrative: A: #Diabetic ketoacidosis: improved -A1c 12.3 #Poorly controlled insulin-dependent diabetes mellitus: #Hypokalemia: #Metabolic acidosis: improving #CAD: stable #Hypothyroidism: #Chronic pancreatitis: #Hypertriglyceridemia: #Essential tremor: Plan -started home basal 30 qam and 25 qhs, nighttime snack needed for am low BG -Replace electrolytes -Continue home duloxetine/gabapentin/levothyroxine -cont fenofibrate -Continue her home pancreatic enzyme supplements -PT and OT -CM for SNF placement -DVT prophylaxis: lovenox CODE STATUS: Limited Time Spent With Patient Time: Total time spent is greater than 50% in coordination of care (as documented) at patient's floor/unit and/or counseling patient:
[2022-04-25] MEDS: LEVOTHYROXINE 25 MCG TABLET PO SCH (07:58)
[2022-04-25] MEDS: LEVOTHYROXINE 100 MCG TABLET PO SCH (07:58)
[2022-04-25 08:26] LABS: Hemoglobin A1C 12.3 % Hgb (4.0-6.0)
[2022-04-25] MEDS: INSULIN GLARGINE, HUMAN 1 UNIT/0.01 ML SQ SCH (08:54)
[2022-04-25] MEDS: ENOXAPARIN 40 MG/0.4 ML SYRINGE SQ SCH (08:54)
[2022-04-25] MEDS: FENOFIBRATE 43 MG CAPSULE PO SCH (08:55)
[2022-04-25] MEDS: LACTOBACILLUS 1 CAPSULE PO SCH ×2 (08:55→21:19)
[2022-04-25] MEDS: DULoxetine 30 MG CAPSULE PO SCH (08:56)
[2022-04-25] MEDS: GABAPENTIN 400 MG CAPSULE PO SCH ×3 (08:56→21:19)
[2022-04-25] MEDS: PROPRANOLOL 10 MG TABLET PO SCH ×3 (08:59→21:21)
[2022-04-25] MEDS: ZENPEP PO SCH ×3 (09:00→21:20)
[2022-04-25] MEDS: SODIUM BICARBONATE 650 MG TABLET PO SCH ×3 (09:05→21:20)
--- NOTE | 2022-04-25 10:31 | Discharge Summary ---
Discharge Provider Provider IMPORTANT FOLLOW-UP INFORMATION FOR PCP: Patient information: Note initiated : 04/25/22 at 10:29 am Service Date, if different from initiated Date: [] Patient: Tennille Castillo 76 y/o F admitted on 04/23/22 for Anxiety. Chief Complaint: [] Date of admission: 04/23/22 07:44 Discharge date: 04/26/22 Primary care physician: OSKAR Carvajal Consults: 04/23/22 Consult to Physician [CONS] Stat Comment: Consulting Provider: Gonzalez Perales Reason For Exam: Physician to Consult COURSE Hospital Course Hospital course: Principal diagnosis: DKA Interval history: The patient was unable to give herself insulin at home due to severe tremors. It is unclear if she is able to look after herself at home. She is found to have severe anion gap metabolic acidosis due to diabetic ketoacidosis. She has been placed on an insulin infusion and admitted to the ICU. She will be aggressively fluid resuscitated with NS 150 cc an hour. We will monitor and replete her electrolytes closely. Once her anion gap is closed, we will discontinue her insulin infusion. At this time she will be kept NPO. Medication reconciliation is pending. 04/24: The patient's insulin infusion has been off since 2 AM. Her anion gap is finally closed and her electrolyte derangements, and metabolic acidosis have improved. She has been switched to Lantus 30 units twice daily and high-dose insulin sliding scale. She is currently being assessed by occupational therapy and physical therapy. Social work and case management will work on disposition. 04/25: Patient blood glucose was low range this morning, patient did not have a bedtime snack. She had a headache this morning has resolved. We will institute nighttime snack, she does take a nighttime snack at home. Patient states her latest insulin regimen was 30 in the morning and 20 5 at night of the long- acting. Hypokalemia this morning of 2.8. Bicarb improved. Elevated chloride. A1c 12.3. 04/26 Patient doing well. No overnight event or complaints. Blood glucose stable. Patient refuses [facility] facility and likely does not need to [facility] but would definitely benefit from an assisted living facility Patient high risk for readmission as she does not seem to be able to take care of herself very well A: #Diabetic ketoacidosis: improved -A1c 12.3 #Poorly controlled insulin-dependent diabetes mellitus: #Hypokalemia: #Metabolic acidosis: improving #CAD: stable #Hypothyroidism: #Chronic pancreatitis: #Hypertriglyceridemia: #Essential tremor: Plan: -Recommended at least assisted living facility to help patient monitor and take her medications correctly. Discharge diagnosis: DKA poorly controlled diabetes electrolyte disorder metabolic acidosis Secondary discharge diagnosis: CAD hypothyroidism chronic pancreatitis hypertriglyceridemia central tremor Time Spent with Patient Time attestation: Total time spent providing and/or coordinating discharge services: Time spent: Greater than 30 minutes EXAM Constitutional Vitals: Temp Pulse Resp BP Pulse Ox O2 Del Method O2 Flow Rate 97.3 F 65 16 134/63 96 0 04/25/22 08:00 04/25/22 08:00 04/25/22 08:00 04/25/22 08:00 04/25/22 08:00 04/25/22 08:00 04/25/22 03:16 Discharge Data Data Completed and Pending Labs on day of discharge: Labs from last 24 hours 04/25/22 04/25/22 04/25/22 05:12 05:11 05:11 Sodium Potassium Chloride Carbon Dioxide Anion Gap BUN Creatinine GFR Calculation Glucose Hemoglobin A1c 12.3 H Estim Average Glucose 306 Calcium Phosphorus 1.3 L Magnesium 2.0 Urine Color Urine Appearance Urine pH Ur Specific [place] Urine Protein Urine Glucose (UA) Urine Ketones Urine Occult Blood Urine Nitrate Urine Bilirubin Urine Urobilinogen Ur Leukocyte Esterase Urine RBC Urine WBC Ur Squamous Epith Cells Urine Bacteria Ur Culture Indicated? 04/25/22 04/24/22 05:11 18:40 Sodium 145 Potassium 2.8 L* Chloride 115 H Carbon Dioxide 20 L Anion Gap 10.0 BUN 10 Creatinine 0.6 GFR Calculation 88 Glucose 73 Hemoglobin A1c Estim Average Glucose Calcium 8.2 L Phosphorus Magnesium Urine Color Yellow Urine Appearance Clear Urine pH 6.0 Ur Specific [place] 1.020 Urine Protein Negative Urine Glucose (UA) >=1000 mg/dl A Urine Ketones Trace A Urine Occult Blood Moderate A Urine Nitrate Negative Urine Bilirubin Negative Urine Urobilinogen Normal Ur Leukocyte Esterase Trace A Urine RBC 10 H Urine WBC 30 H Ur Squamous Epith Cells < 1 Urine Bacteria None Ur Culture Indicated? yes Preliminary micro results at discharge 04/23/22 03:08 Blood Culture - Preliminary Blood 04/23/22 02:58 Blood Culture - Preliminary Blood Discharge Plan Patient/Caregiver Discharge Instructions Activity: increase activity as tolerated Diet: Consistent Carbohydrate Instructions: Diabetic Ketoacidosis (GEN) Activity Restrictions/Additional Instructions: have a bedtime snack. Prescriptions: Continued Acidophilus Tablet,Chewable 2 tab PO BID multivit [id number] [Hair, Skin and Nails Advanced] 1 tab PO DAILY trazodone 100 mg tablet 100 mg PO HSP PRN (Reason: insomnia) Zenpep 40,000-126,000- 168,000 unit capsule,delayed release(DR/EC) 40,000 cap PO TID Label Comments: take 1 capsule by mouth three times a day duloxetine 30 mg Capsule,Delayed Release(Dr/Ec) 30 mg PO QDAY acyclovir 400 mg tablet 1 tab PO BID gabapentin 800 mg tablet 1 tab PO TID zinc 50 mg Tablet 50 mg PO DAILY cholecalciferol (vitamin D3) [Vitamin D3] 50 mcg (2,000 unit) Capsule 50 mcg PO DAILY fenofibrate micronized 43 mg Capsule 86 mg PO DAILY Qty: 30 0RF hyoscyamine sulfate 0.125 mg tablet, sublingual 0.125 mg PO Q6H PRN (Reason: Abdominal Discomfort) Qty: 20 0RF levothyroxine 25 mcg tablet 1 tab PO QAM propranolol 10 mg tablet 1 tab PO TID insulin aspart U-100 [Novolog Flexpen U-100 Insulin] 100 unit/mL (3 mL) insulin pen See Protocol subcut ACHS Protocol: Insulin Sliding Scale, High Condition: HUMALOG/NOVALOG SC SLIDING Dose/Route: SCALE Condition: FSBS < 70 Dose/Route: Give 4 Oz juice, or 15gm oral Instruction: Glucose, or 25ml D50W IV if Dose/Route: unable to take PO. Recheck in Instruction: 15 min and repeat if FSBS < 70 Condition: FSBS 71-140 Dose/Route: NO COVERAGE Condition: FSBS 141-170 Dose/Route: 3 UNITS Condition: FSBS 171-200 Dose/Route: 6 UNITS Condition: FSBS 201-250 Dose/Route: 9 UNITS Condition: FSBS 251-300 Dose/Route: 12 UNITS Condition: FSBS 301-350 Dose/Route: 15 UNITS Condition: FSBS 351-400 Dose/Route: 18 UNITS Condition: FSBS > 400 Dose/Route: 20 UNITS; REPEAT Q2H X2 Instruction: CONTINUE FOLLOWING SLIDING Condition: SCALE; IF STILL > 400; CALL Dose/Route: PHYSICIAN levothyroxine 100 mcg tablet 1 tab PO QDAY Tresiba U-100 Insulin 100 unit/mL solution See Rx Instructions .ROUTE .COMPLEX Rx Instructions: 30 units QAM, 25 units QPM Follow Up Plan Follow up with: Jacque Severino FNP [Primary Care Provider] - Patient Disposition: Home Health Service Prognosis: Undetermined Rehab Potential: Fair Overall status at discharge: patient is progressing back to baseline Discharge Orders: Discharge Order (Routine); Ordered 04/26/22 Ordered By: Jef Borges
[2022-04-25] MEDS ORDERED: POTASSIUM PHOSPHATE 20 MEQ in DEXTROSE 5% IN WATER 250 ML IV SCH (11:00)
[2022-04-25] MEDS: NEUTRA PHOS 1 PACKET PO SCH ×2 (12:14→21:19)
[2022-04-25] MEDS ORDERED: INSULIN GLARGINE, HUMAN 1 UNIT/0.01 ML SQ SCH (21:00)
[2022-04-25] MEDS: traZODone HCL 100 MG TABLET PO PRN (22:46)
[2022-04-26] MEDS: ACETAMINOPHEN 325 MG TABLET PO PRN (02:19)
[2022-04-26] MEDS: INSULIN LISPRO 1 UNIT/0.01 ML UNIT SQ SCH (07:00)
[2022-04-26 07:13] LABS: Phosphorous 2.2 mg/dL (2.5-4.5)
[2022-04-26] MEDS: 0.9 % SODIUM CHLORIDE 10 ML SYRINGE IV SCH (07:13)
[2022-04-26 07:16] LABS: Blood Urea Nitrogen 10 mg/dL (8-23); Carbon Dioxide 25 mmol/L (22-30); Chloride 109 mmol/L (96-108); Glomerular Filtration Rate 88; Glucose 143 mg/dL (70-105)
[2022-04-26] MEDS ORDERED: PHOSPHORUS 250 MG TABLET PO SCH (07:45)
[2022-04-26] MEDS: FENOFIBRATE 43 MG CAPSULE PO SCH (08:47)
[2022-04-26] MEDS: LACTOBACILLUS 1 CAPSULE PO SCH (08:48)
[2022-04-26] MEDS: LEVOTHYROXINE 100 MCG TABLET PO SCH (08:48)
[2022-04-26] MEDS: PROPRANOLOL 10 MG TABLET PO SCH (08:48)
[2022-04-26] MEDS: LEVOTHYROXINE 25 MCG TABLET PO SCH (08:48)
[2022-04-26] MEDS: GABAPENTIN 400 MG CAPSULE PO SCH (08:48)
[2022-04-26] MEDS: DULoxetine 30 MG CAPSULE PO SCH (08:48)
[2022-04-26] MEDS: SODIUM BICARBONATE 650 MG TABLET PO SCH (08:48)
[2022-04-26] MEDS: ENOXAPARIN 40 MG/0.4 ML SYRINGE SQ SCH ×2 (08:49→08:58)
[2022-04-26] MEDS: ZENPEP PO SCH (08:59)
[2022-04-26] MEDS ORDERED: INSULIN GLARGINE, HUMAN 1 UNIT/0.01 ML SQ SCH (09:00)
== END 2022-04-26 11:00 | disposition home health service (06) | DRG 638 ==
LOC: ED 02:17 → ICU 07:44 → MEDSUR 04-25 15:12
PROVIDERS: ADMIT Student in an Organized Health Care Education/Training Program; ATTEND Student in an Organized Health Care Education/Training Program

== ENCOUNTER 2022-05-06 12:02 | Observation (INO) ==
[2022-05-06] MEDS ORDERED: IOPAMIDOL 100 ML BOTTLE IV ONE (12:03)
--- NOTE | 2022-05-06 12:07 | Emergency Department Note ---
HPI General Chief complaint: Fall Stated complaint: fall Time Seen by Provider: 05/06/22 12:07 Mode of arrival: EMS History of Present Illness HPI Narrative: Narrative: Patient is a 76-year-old female with a complex past medical history who presents to the emergency department due to a fall. Patient states that she felt that she was in her normal health this morning, but she had a brief period of room spinning dizziness, then fell backwards, hit the back of her head, and her back. She states that she began to have significant pain in her back in the middle and to the right. She endorses pain in her neck and abdomen as well. She endorses worsening with movement. She denies any other palliative or provocative factors. She does endorse some continued lightheadedness, but denies room spinning dizziness at this time. She denies changes in vision/hear ing/speech, numbness/tingling/weakness, facial droop, nausea, vomiting, or any other acute concerns. She does endorse approximately 1 month of dark-colored stool, but states that her stool is normal today. She denies any other concerns at this time. Related Data Home Medications Medication Instructions Recorded Confirmed [id number] 40,000 cap PO TID 06/01/21 04/23/22 40,000-126,000-168,000 unit capsule, delay rel (Zenpep) Lactobacillus acidophilus 2 tab PO BID 07/15/21 04/23/22 (Acidophilus chewable tablet) multivit [id number] 186 1 tab PO DAILY 07/15/21 04/23/22 [Hair, Skin and Nails Advanced] trazodone 100 mg tablet 100 mg PO HSP PRN insomnia 08/22/21 04/23/22 duloxetine 30 mg capsule,delayed 30 mg PO QDAY 09/20/21 04/23/22 release acyclovir 400 mg tablet 1 tab PO BID 09/21/21 04/23/22 gabapentin 800 mg tablet 1 tab PO TID 09/21/21 04/23/22 cholecalciferol (vitamin D3) 50 50 mcg PO DAILY 12/04/21 04/23/22 mcg (2,000 unit) capsule (Vitamin D3) zinc 50 mg tablet 50 mg PO DAILY 12/04/21 04/23/22 insulin aspart U-100 100 unit/mL See Protocol subcut ACHS 04/23/22 04/23/22 (3 mL) subcutaneous pen (Novolog Flexpen U-100 Insulin aspart) levothyroxine 100 mcg tablet 1 tab PO QDAY 04/23/22 04/23/22 levothyroxine 25 mcg tablet 1 tab PO QAM 04/23/22 04/23/22 propranolol 10 mg tablet 1 tab PO TID 04/23/22 04/23/22 insulin degludec 100 unit/mL See Rx Instructions .Route .COMPLEX 04/25/22 04/25/22 subcutaneous solution (Tresiba U-100 Insulin) Previous Rx's Medication Instructions Recorded fenofibrate micronized 43 mg 86 mg PO DAILY #30 caps 02/14/22 capsule hyoscyamine sulfate 0.125 mg 0.125 mg PO Q6H PRN Abdominal 02/19/22 sublingual tablet Discomfort #20 tabs Allergies Allergy/AdvReac Type Severity Reaction Status Date / Time cephalexin [From Keflex] Allergy Intermediate Swelling Verified 04/23/22 09:25 Penicillins Allergy Mild Rash Verified 04/23/22 09:25 Anistreplase [From Eminase] Allergy Unknown UNKNOWN Verified 04/23/22 09:25 fenugreek Allergy Unknown UNKNOWN Verified 04/23/22 09:25 codeine AdvReac Mild Itching Verified 04/23/22 09:25 Erythromycin Base AdvReac Mild Itching Verified 04/23/22 09:25 Nortriptyline AdvReac Mild Nausea Verified 04/23/22 09:25 promethazine AdvReac Mild Fainting Verified 04/23/22 09:25 trulicity AdvReac Intermediate Other Uncoded 12/04/21 06:40 Review of Systems ROS ROS Narrative: Narrative: Constitutional: Denies fever or weakness Eyes: Denies eye pain or vision change ENT ED: Denies throat pain, hearing loss or rhinorrhea Cardiovascular: Denies chest pain, dyspnea on exertion, orthopnea or edema Respiratory: Denies shortness of breath or cough Gastrointestinal: Reports abdominal pain; Denies nausea, vomiting, diarrhea, constipation, hematochezia or melena Musculoskeletal: Reports back pain; Denies myalgia Integumentary: Denies rash or lesions Neurological: Reports dizziness (Brief episode, no resolved) and other (Lightheaded); Denies headache, weakness, numbness, confusion or abnormal gait Psychiatric: Reports as per HPI; Denies anxiety Endocrine: Denies fatigue or polyuria PFSH Narrative Patient History Narrative: Narrative: Medical/Surgical/Family History All Active Problems (Updated 05/06/22 @ 16:18 by Wiley Patel MD) Compression fracture of body of thoracic vertebra (Acute) Pain in rib (Acute) Hypoglycemia (Acute) DKA (diabetic ketoacidosis) (Acute) Acute hyponatremia (Acute) Acute hyperkalemia (Acute) Acidosis, lactic (Acute) Metabolic acidosis (Acute) Blood in urine (Chronic) Diabetic keto-acidosis (Chronic) Pseudohyponatremia (Chronic) DKA (diabetic ketoacidosis) (Chronic) Hypomagnesemia (Chronic) Generalized weakness (Chronic) Acute dehydration (Chronic) Diabetic ketosis (Chronic) Acute dyspnea (Chronic) Obstructive sleep apnea (Chronic) DKA (diabetic ketoacidosis) (Chronic) Vulvovaginitis due to yeast (Chronic) Sleepwalking (Chronic) REM sleep behavior disorder (Chronic) Hypersomnia (Chronic) Snoring (Chronic) Tremor (Chronic) Neurofibromatosis 2 (Chronic) Trigger finger (Chronic) Sleep disturbance (Chronic) Arthralgia (Chronic) Pancreatitis (Chronic) Macular degeneration (Chronic) Hepatitis A (Chronic) Glaucoma (Chronic) Fibromyalgia (Chronic) DDD (degenerative disc disease), cervical (Chronic) Diabetic retinopathy (Chronic) Opioid dependence (Chronic) Stress (Chronic) Hard of hearing (Chronic) Multiple environmental allergies (Chronic) Fracture of lumbar spine (Chronic) Compression fracture of lumbosacral spine (Chronic) Abdominal pain (Chronic) Chronic pancreatitis (Chronic) Liver mass (Chronic) Cirrhosis of liver (Chronic) Constipation (Chronic) Neuropathy (Chronic) Chronic pain (Chronic) Essential tremor (Chronic) Bimalleolar ankle fracture (Chronic) Chronic bronchitis with acute exacerbation (Chronic) Dehydration (Chronic) Epistaxis (Chronic) Hypoxia (Chronic) Anterior epistaxis (Chronic) Candidiasis of mouth (Chronic) DKA (diabetic ketoacidosis) (Chronic) Conjunctivitis (Chronic) Bronchitis (Chronic) Dehiscence of closure of skin (Chronic) Anemia (Chronic) Elevated liver enzymes (Chronic) 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) Radiculopathy, sacral and sacrococcygeal region (Chronic) Radiculopathy, lumbosacral region (Chronic) Insomnia (Chronic) Levator syndrome (Chronic) Sacrococcygeal pain (Chronic) History of surgery (Chronic) Hypothyroidism (Chronic) Chronic bronchitis (Chronic) 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) Depression (Chronic) Anxiety (Chronic) Hypertension (Chronic) Osteoporosis (Chronic) Rectal pain (Chronic) Low back pain (Chronic) Pain in thoracic spine (Chronic) Age-related osteoporosis with current pathological fracture, vertebra(e), initial encounter for fracture (Chronic) Medical History Abdominal pain Acute exacerbation of chronic obstructive airways disease Age-related osteoporosis with current pathological fracture, vertebra(e), initial encounter for fracture Anemia Anterior epistaxis Anxiety Arthralgia Bilateral primary osteoarthritis of hip Bimalleolar ankle fracture Blood in urine Bronchitis Candidiasis of mouth Chronic bronchitis with acute exacerbation Chronic pain Chronic pancreatitis Cirrhosis of liver Compression fracture of lumbosacral spine Conjunctivitis Constipation DDD (degenerative disc disease), cervical Dehiscence of closure of skin Dehydration Depression Diabetic retinopathy DKA (diabetic ketoacidosis) Elevated liver enzymes Epistaxis Essential tremor Fibromyalgia Fracture of lumbar spine Glaucoma Hard of hearing Hepatitis A Hyperglycemia due to type 2 diabetes mellitus Hypersomnia Hypertension Hypothyroidism Hypoxia Insomnia Levator syndrome Lipomatosis Liver mass Low back pain Macular degeneration Multiple environmental allergies Neurofibromatosis 2 Neuropathy Obstructive sleep apnea Opioid dependence Osteoporosis Pain in thoracic spine Pancreatitis Radiculopathy, lumbosacral region Radiculopathy, sacral and sacrococcygeal region Rectal pain REM sleep behavior disorder Sacrococcygeal pain Sleep disturbance Sleepwalking Snoring Stress Tremor Trigger finger Surgical History History of appendectomy (~1970) History of arthroplasty of right ankle (~2017) History of cataract surgery (~2003) History of cholecystectomy History of colonoscopy (~06/26/18) History of decompression of median nerve (~2003) History of dilation and curettage History of eye surgery (~2005) Glaucoma History of hand surgery (~2003) Release of trigger finger, right History of left breast biopsy (~2005) History of oophorectomy History of surgery Vertebroplasty T12 w/sed 09/28/19 History of surgery retinopathy laser Stereotactic destruction of lesion using gamma radiation-2004 History of surgery on wrist History of tonsillectomy and adenoidectomy (~1970) Family History Mother Heart disease Fibromyalgia Father Malignant melanoma Malignant tumor of prostate Leukemia Social History Smoking Status: Never smoker Alcohol Intake Frequency: does not drink Substance Use: does not use Exam Narrative Narrative: Narrative: General General appearance: Present alert and in no apparent distress; Absent anxious or appears intoxicated Head Head: Present atraumatic and normocephalic Eye Eye: Present PERRL and EOMI; Absent scleral icterus or nystagmus ENT ENT: Present mucous membranes moist; Absent nasal congestion Neck Neck: Present full ROM and tenderness (Midline c spine) Chest Chest: Present normal inspection and symmetric chest wall rise; Absent tenderness Respiratory Respiratory: Present normal lung sounds bilaterally; Absent respiratory distress or accessory muscle use Cardiovascular Cardiovascular: Present regular rate, normal rhythm and normal heart sounds Adbominal Abdominal: Present soft, tenderness (Throughout abdomen) and normal bowel sounds; Absent distention Extremities Extremities: Present normal inspection and full ROM; Absent tenderness Back Back: Present normal inspection, full ROM, tenderness (C and T spine) and other (Right of T spine overlying inferior ribs) Neurological Neurological: Present alert, oriented X3, CN II-XII intact, normal gait and reflexes normal; Absent motor sensory deficit Psychiatric Psychiatric: Present normal affect and normal mood Skin Skin: Present warm (WNL), dry and normal color Course Vital Signs Vital signs: Vital Signs Temperature 97.8 F 05/06/22 12:07 Pulse Rate 85 05/06/22 12:07 Respiratory Rate 20 05/06/22 12:07 Blood Pressure 138/83 05/06/22 12:07 Pulse Oximetry (%) 96 05/06/22 12:07 Oxygen Delivery Method 05/06/22 12:07 Temperature 97.8 F 05/06/22 12:07 Pulse Rate 70 05/06/22 16:01 Respiratory Rate 20 05/06/22 12:07 Blood Pressure 127/55 05/06/22 16:01 Pulse Oximetry (%) 96 05/06/22 16:01 Oxygen Delivery Method 05/06/22 12:07 [facility] Narrative Medical decision making narrative: Narrative: Patient is a 76-year-old female with a complex past medical history who presents to the emergency department due to a fall. Due to concern for potential spinal, rib, and intracranial injuries images have been ordered. These images do demonstrate compression deformities of T7 and T8 with uncertain chronicity and mild T2 superior endplate compression deformity of uncertain chronicity. Cem bustillos has more significant pain to the right posterior ribs, but does not have rib fracture. It is possible the patient has bruising to her ribs. Due to significant pain we have given patient fentanyl which did not help her pain. We gave her Dilaudid with minimal improvement in pain. We have given her Toradol and gabapentin without improvement in pain. We have given her another dose of Dilaudid. Because patient has had minimal improvement in pain with multiple medications and only Dilaudid has helped, and because patient's saturations did decrease to the low 90s with the first dose of Dilaudid we will speak to Dr. Spence about admission for pain control. I have spoken to Dr. Spence who was agreed to see and evaluate patient for observation. Lab Data Result diagrams: 05/06/22 12:31 Labs: Lab Results 05/06/22 05/06/22 05/06/22 Range/Units 12:21 12:31 12:31 WBC 10.1 (4.5-11.0) K/mcL RBC 4.09 (3.59-5.38) M/mcL Hgb 12.4 (11.2-15.7) g/dL Hct 36.7 (34.1-44.9) % POC Hct 36.0 (36-48) MCV 89.7 (80.0-100.0) fL MCH 30.3 (26.0-34.0) pg MCHC 33.8 (31.0-36.0) g/dL RDW 13.2 (11.5-14.5) % Plt Count 190 (140-440) K/mcL MPV 10.2 (7.4-10.4) fL Immature Gran % (Auto) 0.8 H (0.0-0.5) % Neut % (Auto) 82.1 H (38.0-78.0) % Lymph % (Auto) 10.9 L (15.5-49.0) % [place] % (Auto) 4.9 (1.0-12.0) % Eos % (Auto) 0.7 (0.0-7.0) % Baso % (Auto) 0.6 (0.0-2.0) % Lymph # (Auto) 1.11 L (1.50-4.80) K/mcL [place] # (Auto) 0.50 (0.10-0.90) K/mcL Eos # (Auto) 0.07 (0.00-0.70) K/mcL Baso # (Auto) 0.06 (0.00-0.30) K/mcL Immature Gran # 0.08 H (0.00-0.05) K/mcl Absolute Neutrophils 8.32 H (1.80-8.00) K/mcL POC Sodium 136 (133-145) POC Potassium 3.7 (3.3-5.1) POC Chloride 101 (96-108) POC Total CO2 21.0 L (22-30) POC BUN 15 (6-20) POC Creatinine 0.6 (0.6-1.2) POC Glucose 390 H (70-105) POC WB Ioniz Calcium 1.10 L (1.16-1.32) Total Bilirubin 0.3 (0.1-1.0) mg/dL Direct Bilirubin < 0.2 (0-0.3) mg/dL AST 83 H (<32) U/L ALT 39 (<40) U/L Alkaline Phosphatase 111 (39-117) U/L Total Protein 6.3 (5.9-8.4) gm/dL Albumin 3.4 (3.2-5.2) gm/dL Globulin 2.9 (2.2-3.7) gm/dL Lipase 15 (7-60) U/L Urine Color Urine Appearance (Clear) Urine pH (5.0-9.0) Ur Specific [place] (1.000-1.035) Urine Protein (Negative) mg/dL Urine Glucose (UA) (Negative) mg/dL Urine Ketones (Negative) mg/dL Urine Occult Blood (Negative) vicki/mcL Urine Nitrate (Negative) Urine Bilirubin (Negative) mg/dL Urine Urobilinogen mg/dL Ur Leukocyte Esterase (Negative) /uL Urine RBC (0-3) /hpf Urine WBC (0-4) /hpf Ur Squamous Epith Cells (0-4) /hpf Urine Bacteria (0) /hpf Ur Culture Indicated? POC Troponin I (0.02-0.08) 05/06/22 05/06/22 Range/Units 12:34 14:52 WBC (4.5-11.0) K/mcL RBC (3.59-5.38) M/mcL Hgb (11.2-15.7) g/dL Hct (34.1-44.9) % POC Hct (36-48) MCV (80.0-100.0) fL MCH (26.0-34.0) pg MCHC (31.0-36.0) g/dL RDW (11.5-14.5) % Plt Count (140-440) K/mcL MPV (7.4-10.4) fL Immature Gran % (Auto) (0.0-0.5) % Neut % (Auto) (38.0-78.0) % Lymph % (Auto) (15.5-49.0) % [place] % (Auto) (1.0-12.0) % Eos % (Auto) (0.0-7.0) % Baso % (Auto) (0.0-2.0) % Lymph # (Auto) (1.50-4.80) K/mcL [place] # (Auto) (0.10-0.90) K/mcL Eos # (Auto) (0.00-0.70) K/mcL Baso # (Auto) (0.00-0.30) K/mcL Immature Gran # (0.00-0.05) K/mcl Absolute Neutrophils (1.80-8.00) K/mcL POC Sodium (133-145) POC Potassium (3.3-5.1) POC Chloride (96-108) POC Total CO2 (22-30) POC BUN (6-20) POC Creatinine (0.6-1.2) POC Glucose (70-105) POC WB Ioniz Calcium (1.16-1.32) Total Bilirubin (0.1-1.0) mg/dL Direct Bilirubin (0-0.3) mg/dL AST (<32) U/L ALT (<40) U/L Alkaline Phosphatase (39-117) U/L Total Protein (5.9-8.4) gm/dL Albumin (3.2-5.2) gm/dL Globulin (2.2-3.7) gm/dL Lipase (7-60) U/L Urine Color Yellow Urine Appearance Clear (Clear) Urine pH 5.5 (5.0-9.0) Ur Specific [place] 1.010 (1.000-1.035) Urine Protein Negative (Negative) mg/dL Urine Glucose (UA) 500 mg/dl A (Negative) mg/dL Urine Ketones 40 mg/dl A (Negative) mg/dL Urine Occult Blood Trace-intact A (Negative) vicki/mcL Urine Nitrate Negative (Negative) Urine Bilirubin Negative (Negative) mg/dL Urine Urobilinogen Normal mg/dL Ur Leukocyte Esterase Negative (Negative) /uL Urine RBC 2 (0-3) /hpf Urine WBC 3 (0-4) /hpf Ur Squamous Epith Cells 0 (0-4) /hpf Urine Bacteria None (0) /hpf Ur Culture Indicated? No POC Troponin I 0.01 L (0.02-0.08) EKG Data EKG #1: EKG attestation: Yes I reviewed and interpreted this EKG. EKG results narrative: Normal sinus rhythm with normal axis, CT of 161, QRS of 86, QTC of 535, T wave flattening in leads I, III, aVL, and aVF, and absence of ST elevation or depression Discharge Plan Patient/Caregiver Discharge Instructions Pt seen by TELEPHONE EXCHANGE OPERATOR/PA only: No Clinical Impression: Compression fracture of body of thoracic vertebra, Pain in rib Patient Disposition: Xfer As Outpt/Obs ([facility]) Follow up with: Jacque Severino FNP [Primary Care Provider] - Prescriptions: No Action Acidophilus Tablet,Chewable 2 tab PO BID multivit [id number] 186 [Hair, Skin and Nails Advanced] 1 tab PO DAILY trazodone 100 mg tablet 100 mg PO HSP PRN (Reason: insomnia) Zenpep 40,000-126,000- 168,000 unit capsule,delayed release(DR/EC) 40,000 cap PO TID Label Comments: take 1 capsule by mouth three times a day duloxetine 30 mg Capsule,Delayed Release(Dr/Ec) 30 mg PO QDAY acyclovir 400 mg tablet 1 tab PO BID gabapentin 800 mg tablet 1 tab PO TID zinc 50 mg Tablet 50 mg PO DAILY cholecalciferol (vitamin D3) [Vitamin D3] 50 mcg (2,000 unit) Capsule 50 mcg PO DAILY fenofibrate micronized 43 mg Capsule 86 mg PO DAILY Qty: 30 0RF hyoscyamine sulfate 0.125 mg tablet, sublingual 0.125 mg PO Q6H PRN (Reason: Abdominal Discomfort) Qty: 20 0RF levothyroxine 25 mcg tablet 1 tab PO QAM propranolol 10 mg tablet 1 tab PO TID insulin aspart U-100 [Novolog Flexpen U-100 Insulin] 100 unit/mL (3 mL) insulin pen See Protocol subcut ACHS Protocol: Insulin Sliding Scale, High Condition: HUMALOG/NOVALOG SC SLIDING Dose/Route: SCALE Condition: FSBS < 70 Dose/Route: Give 4 Oz juice, or 15gm oral Instruction: Glucose, or 25ml D50W IV if Dose/Route: unable to take PO. Recheck in Instruction: 15 min and repeat if FSBS < 70 Condition: FSBS 71-140 Dose/Route: NO COVERAGE Condition: FSBS 141-170 Dose/Route: 3 UNITS Condition: FSBS 171-200 Dose/Route: 6 UNITS Condition: FSBS 201-250 Dose/Route: 9 UNITS Condition: FSBS 251-300 Dose/Route: 12 UNITS Condition: FSBS 301-350 Dose/Route: 15 UNITS Condition: FSBS 351-400 Dose/Route: 18 UNITS Condition: FSBS > 400 Dose/Route: 20 UNITS; REPEAT Q2H X2 Instruction: CONTINUE FOLLOWING SLIDING Condition: SCALE; IF STILL > 400; CALL Dose/Route: PHYSICIAN levothyroxine 100 mcg tablet 1 tab PO QDAY Tresiba U-100 Insulin 100 unit/mL solution See Rx Instructions .ROUTE .COMPLEX Rx Instructions: 30 units QAM, 25 units QPM
[2022-05-06 12:24] LABS: POC Calcium, Ionized 1.1 (1.16-1.32); POC Creatinine 0.6 (0.6-1.2); POC Potassium 3.7 (3.3-5.1)
[2022-05-06] MEDS ORDERED: fentaNYL 100 MCG/2 ML VIAL IV ONE (12:25)
[2022-05-06] MEDS ORDERED: HYDROmorphone 0.5 MG/0.5 ML SYRINGE IV ONE ×2 (12:57→15:24)
[2022-05-06 13:06] LABS: Basophils # (Auto) 0.06 K/mcL (0.00-0.30); Basophils % (Auto) 0.6 % (0.0-2.0); Eosinophils # (Auto) 0.07 K/mcL (0.00-0.70); Eosinophils % (Auto) 0.7 % (0.0-7.0); Hematocrit 36.7 % (34.1-44.9); Hemoglobin 12.4 g/dL (11.2-15.7); Lymphocytes # (Auto) 1.11 K/mcL (1.50-4.80); Lymphocytes % (Auto) 10.9 % (15.5-49.0); Mean Cell Volume 89.7 fL (80.0-100.0); Mean Corpuscular HGB Conc 33.8 g/dL (31.0-36.0); Mean Platelet Volume 10.2 fL (7.4-10.4); Monocytes % (Auto) 4.9 % (1.0-12.0); Neutrophils % (Auto) 82.1 % (38.0-78.0); Platelet Count 190 K/mcL (140-440); RBC 4.09 M/mcL (3.59-5.38); Red Cell Distribution Width 13.2 % (11.5-14.5); WBC 10.1 K/mcL (4.5-11.0)
[2022-05-06 13:14] LABS: ALT/SGPT 39 U/L (<40); AST/SGOT 83 U/L (<32); Albumin 3.4 gm/dL (3.2-5.2); Alkaline Phosphatase 111 U/L (39-117); Bilirubin,Direct < 0.2 mg/dL (0-0.3); Bilirubin,Total 0.3 mg/dL (0.1-1.0); Globulin 2.9 gm/dL (2.2-3.7)
--- NOTE | 2022-05-06 13:19 | Cat Scan Report ---
INDICATION: Fall, T-spine, right posterior rib, abd tenderness COMPARISON: INDICATION: Fall, T-spine, right posterior rib, abd tenderness COMPARISON: Previous abdominal pelvic CT scan dated 12/20/2021 TECHNIQUE: Axial images were obtained through the chest,abdomen and pelvis. Sagittally and coronally reformatted images. 80ml Isovue 370 injected intravenously. FINDINGS: Chest CT: Lungs:No pulmonary contusion or focal pulmonary parenchymal infiltrate. No posttraumatic abnormality Mediastinum:No mediastinal hematoma. Thoracic aorta is negative. No dissection or aneurysmal dilatation Heart:No significant cardiomegaly. No pericardial effusion. There is severe coronary artery calcification Pleura:There is no pneumothorax or hemothorax Axilla, supraclavicular regions, chest wall:No chest wall hematoma. No acute or focal abnormality. Musculoskeletal:No rib fractures. Scapula and clavicles are negative. Sternum is negative. Mild compression deformities of the T7 and T8 vertebral bodies. There is no retropulsion. No paraspinal hematoma. Chronicity of these mild compression fractures is not certain. Chronic compression deformity of the T12 vertebral body. Previous vertebral body augmentation. Abdomen/Pelvis: Liver:No hepatic injury. No hepatic laceration or fracture. No perihepatic hemorrhage Gallbladder, bilary:Previous cholecystectomy. Common bile duct measures approximately 12 mm. There is slight intrahepatic bile duct dilatation Spleen:Spleen is negative. No splenic injury. No perisplenic hemorrhage. Normal enhancement of splenic and portal veins Pancreas:No pancreatic mass. No peripancreatic abnormality. No retroperitoneal abnormality Adrenal glands:Left adrenal gland is prominent, unchanged Kidneys,ureters,bladder:No solid renal mass. No hydronephrosis. No obstructing or nonobstructing calculi. There are benign renal cysts. No evidence for renal No hydroureter. No ureteral calculus. No bladder stone. No detectable bladder mass. Gastrointestinal:Colon is negative. No diverticulitis. No detectable colonic mass. There is prominent fecal material suggesting constipation Negative small bowel. No mechanical small bowel obstruction. No bowel wall thickening. No focal abnormality. Negative stomach and duodenum. No focal abnormality. Probable small hiatal hernia Appendix: The appendix is negative Vascular:There is calcification of the abdominal aorta. No abdominal aortic aneurysm Lymphatic:No pathologic retroperitoneal or mesenteric adenopathy Mesentery, peritoneum:No free intraperitoneal fluid. No intra-abdominal abscess. There is no hemoperitoneum or pneumoperitoneum Reproductive:Uterus is not visualized. No adnexal mass Musculoskeletal:Mild compression deformity of the L2 vertebral body, unchanged since 12/20/2021. Sacrum is negative. There is no insufficiency fracture. Pelvis is negative. Fracture. Hips are negative No anterior abdominal wall or inguinal hernia. IMPRESSION: 1. Severe coronary artery calcification 2. Mild compression deformities of T7 and T8 vertebral bodies. Chronicity is not certain. Chronic compression deformities of the T12 and L2 vertebral bodies 3. Calcification of the abdominal aorta. No abdominal aortic aneurysm 4. No pneumoperitoneum or hemoperitoneum. No splenic or hepatic injury 5. Previous cholecystectomy. Mild intrahepatic bile duct dilatation. Chronic dilatation of the common bile duct The exam was performed using radiation dose optimization techniques including, but not limited to, automated exposure control, adjustment of the mA and/or kV according to patient size and use of iterative reconstruction technique. Interpreted and Authenticated by: Will Peck 05/06/22
--- NOTE | 2022-05-06 13:21 | Cat Scan Report ---
INDICATION: Fall, hit head COMPARISON: Previous brain CT scans dated 04/20/2022, 12/10/2021, 09/20/2021 TECHNIQUE: Axial noncontrast-enhanced images through the brain. Sagittally and coronally reformatted images. FINDINGS: Cerebral hemispheres:Negative. No intra-axial abnormality. No intra-axial hematoma. No localized mass effect. There is cerebral atrophy, probably age appropriate. No acute or focal intra-axial attenuation abnormality Brainstem and cerebellum:No intra-axial abnormality Extra-axial:No acute hemorrhage. No subdural or epidural hematoma. No subarachnoid hemorrhage. Basilar cisterns are normal Calvarial:No calvarial fracture. No lytic lesion Temporal bones are negative. No destructive lesions Soft tissue, orbits, sinuses:Orbits and visualized facial soft tissues and paranasal sinuses are negative. There is mild chronic mucosal thickening within sphenoid sinuses IMPRESSION: Negative post trauma brain CT scan The exam was performed using radiation dose optimization techniques including, but not limited to, automated exposure control, adjustment of the mA and/or kV according to patient size and use of iterative reconstruction technique. Interpreted and Authenticated by: Will Peck 05/06/22
--- NOTE | 2022-05-06 13:25 | Cat Scan Report ---
INDICATION: Fall, c spine tenderness COMPARISON: None. TECHNIQUE: Axial thin section images through the cervical spine. Sagittally and coronally reformatted images. The exam was performed using radiation dose optimization techniques including, but not limited to, automated exposure control, adjustment of the mA and/or kV according to patient size and use of iterative reconstruction technique. FINDINGS: Vertebral bodies, spinous processes: Mild superior endplate compression deformity of the T2 vertebral body. Chronicity is not certain. Vertebral bodies and spinous processes are otherwise negative. Alignment is anatomic without anterolisthesis Normal odontoid process. No fracture. Occipital condyles and C1 are negative. No atlantoaxial subluxation. Facets:No perched or locked facet. No facet complex fracture. Disc spaces:Severe degenerative disc disease at C5-6 and C6-7 Temporal bones:Negative. No basilar skull fracture. There is mild mucosal thickening within sphenoid sinuses. Does not consider posttraumatic Cervical soft tissues:Negative. No prevertebral soft tissue swelling. No focal soft tissue mass or acute abnormality Lung apices:No pneumothorax. No pulmonary contusion. IMPRESSION: 1. Degenerative disc disease at C5-6 and C6-7 2. Mild T2 superior endplate compression deformity. Uncertain chronicity Interpreted and Authenticated by: Will Peck 05/06/22
[2022-05-06] MEDS ORDERED: LIDOCAINE PATCH TOPICAL ONE (13:45)
[2022-05-06] MEDS ORDERED: KETOROLAC 30 MG/ML VIAL IV ONE (14:17)
[2022-05-06] MEDS ORDERED: GABAPENTIN 100 MG CAPSULE PO ONE (14:17)
[2022-05-06] MEDS ORDERED: GABAPENTIN 400 MG CAPSULE PO ONE ×2 (14:29→14:31)
[2022-05-06 15:41] LABS: Appearance,Urine Clear (Clear); Bilirubin,Urine Negative (Negative); Color,Urine Yellow; Culture Indicated,Urine No; Ketones,Urine 40 mg/dL mg/dL (Negative); Leukocyte Esterase,Urine Negative /uL (Negative); Nitrate,Urine Negative (Negative); PH,Urine 5.5 (5.0-9.0); Protein,Urine Negative (Negative); Urine Blood Trace-intact ery/mcL (Negative); Urine RBC 2 /hpf (0-3); Urine Squamous Epithelial Cell 0 /hpf (0-4); Urine WBC 3 /hpf (0-4); Urobilinogen,Urine Normal
[2022-05-06] MEDS ORDERED: INSULIN REGULAR, HUMAN 1 UNIT/0.01 ML UNIT IV ONE (16:16)
[2022-05-06] MEDS ORDERED: DEXTROSE 50% 50 ML VIAL IV PRN (17:53)
[2022-05-06] MEDS ORDERED: ONDANSETRON 4 MG/2 ML VIAL IV PRN (17:53)
[2022-05-06] MEDS ORDERED: ACETAMINOPHEN 325 MG TABLET PO PRN (17:53)
[2022-05-06] MEDS ORDERED: DEXTROSE 31 GM ORAL.SUSP PO PRN (17:53)
--- NOTE | 2022-05-06 19:12 | Internal Med History&Physical ---
HPI History of Present Illness Patient information: Note initiated : 05/06/22 at 7:12 pm Service Date, if different from initiated Date: [] Patient: Tennille Castillo a 76 y/o F admitted on 05/06/22 for fall. Chief Complaint: [] Chief complaint: Back pain following a fall. History of present illness: Ms. 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 Patient states she had been up for about an hour this morning went into the bathroom, felt spinning and fell hitting her back. She has had recent falls in the past, including one about July 2020 that also resulted in a forehead laceration and loss of memory. After the fall today, the patient felt it very difficult to get up. She was experiencing mid to low thoracic back pain, also off to the right in the mid to lower thoracic region. She did not have weakness in the legs, no focal neurologic symptoms, it was difficult for her to get up due to pain. Because of ongoing pain she presents to the ED. The emergency department imaging showed mild T7 and T8 compression fractures of undetermined duration. There are no evidence of rib fractures. She did have tenderness over the right lower rib cage. She received fentanyl with minimal effect. She received a dose of hydromorphone with mild drop in her oxygen saturations but mild effect on the pain. Subsequently she received ketorolac and a dose of her usual gabapentin which provided some mild relief, she subsequently received another dose of hydromorphone. She is now being hospitalized for further pain control. I discussed with the patient, she notes that she often has a vertiginous feeling and sensation. She did not have lightheadedness. She had no loss of consciousness with the event today. No associated chest pain or dyspnea. Most of the pain is off to the right in the lower thoracic back. By the time I see her she notes that it has crossed over to the left. She did have some shortness of breath secondary to pain, that is now resolved. Constitutional Constitutional: Absent fever(s) EENT Eyes: Present change in vision (Chronic, secondary to diabetes) Ears: Absent tinnitus Nose, mouth and throat: Present disequilibrium; Absent sore throat Cardiovascular Cardiovascular: Absent chest pain, chest pain at rest, edema or syncope Respiratory Respiratory: Present dyspnea (Transient, associated with back pain, resolved); Absent cough or pain with cough Gastrointestinal Gastrointestinal: Absent abdominal pain, nausea or vomiting Genitourinary Genitourinary: Absent dysuria or urinary urgency Musculoskeletal Musculoskeletal: Present as per HPI Integumentary Integumentary: Absent rash or jaundice Neurological Neurological: Present as per HPI and tremor(s); Absent radicular pain or syncope Endocrine Endocrine: Absent polydipsia Hematologic/Lymphatic Hematologic/Lymphatic: Absent easy bleeding PFSH PFSH All Active Problems (Updated 05/06/22 @ 16:18 by Wiley Patel MD) Compression fracture of body of thoracic vertebra (Acute) Pain in rib (Acute) Hypoglycemia (Acute) DKA (diabetic ketoacidosis) (Acute) Acute hyponatremia (Acute) Acute hyperkalemia (Acute) Acidosis, lactic (Acute) Metabolic acidosis (Acute) Blood in urine (Chronic) Diabetic keto-acidosis (Chronic) Pseudohyponatremia (Chronic) DKA (diabetic ketoacidosis) (Chronic) Hypomagnesemia (Chronic) Generalized weakness (Chronic) Acute dehydration (Chronic) Diabetic ketosis (Chronic) Acute dyspnea (Chronic) Obstructive sleep apnea (Chronic) DKA (diabetic ketoacidosis) (Chronic) Vulvovaginitis due to yeast (Chronic) Sleepwalking (Chronic) REM sleep behavior disorder (Chronic) Hypersomnia (Chronic) Snoring (Chronic) Tremor (Chronic) Neurofibromatosis 2 (Chronic) Trigger finger (Chronic) Sleep disturbance (Chronic) Arthralgia (Chronic) Pancreatitis (Chronic) Macular degeneration (Chronic) Hepatitis A (Chronic) Glaucoma (Chronic) Fibromyalgia (Chronic) DDD (degenerative disc disease), cervical (Chronic) Diabetic retinopathy (Chronic) Opioid dependence (Chronic) Stress (Chronic) Hard of hearing (Chronic) Multiple environmental allergies (Chronic) Fracture of lumbar spine (Chronic) Compression fracture of lumbosacral spine (Chronic) Abdominal pain (Chronic) Chronic pancreatitis (Chronic) Liver mass (Chronic) Cirrhosis of liver (Chronic) Constipation (Chronic) Neuropathy (Chronic) Chronic pain (Chronic) Essential tremor (Chronic) Bimalleolar ankle fracture (Chronic) Chronic bronchitis with acute exacerbation (Chronic) Dehydration (Chronic) Epistaxis (Chronic) Hypoxia (Chronic) Anterior epistaxis (Chronic) Candidiasis of mouth (Chronic) DKA (diabetic ketoacidosis) (Chronic) Conjunctivitis (Chronic) Bronchitis (Chronic) Dehiscence of closure of skin (Chronic) Anemia (Chronic) Elevated liver enzymes (Chronic) 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) Radiculopathy, sacral and sacrococcygeal region (Chronic) Radiculopathy, lumbosacral region (Chronic) Insomnia (Chronic) Levator syndrome (Chronic) Sacrococcygeal pain (Chronic) History of surgery (Chronic) Hypothyroidism (Chronic) Chronic bronchitis (Chronic) 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) Depression (Chronic) Anxiety (Chronic) Hypertension (Chronic) Osteoporosis (Chronic) Rectal pain (Chronic) Low back pain (Chronic) Pain in thoracic spine (Chronic) Age-related osteoporosis with current pathological fracture, vertebra(e), initial encounter for fracture (Chronic) Medical History Abdominal pain Acute exacerbation of chronic obstructive airways disease Age-related osteoporosis with current pathological fracture, vertebra(e), initial encounter for fracture Anemia Anterior epistaxis Anxiety Arthralgia Bilateral primary osteoarthritis of hip Bimalleolar ankle fracture Blood in urine Bronchitis Candidiasis of mouth Chronic bronchitis with acute exacerbation Chronic pain Chronic pancreatitis Cirrhosis of liver Compression fracture of lumbosacral spine Conjunctivitis Constipation DDD (degenerative disc disease), cervical Dehiscence of closure of skin Dehydration Depression Diabetic retinopathy DKA (diabetic ketoacidosis) Elevated liver enzymes Epistaxis Essential tremor Fibromyalgia Fracture of lumbar spine Glaucoma Hard of hearing Hepatitis A Hyperglycemia due to type 2 diabetes mellitus Hypersomnia Hypertension Hypothyroidism Hypoxia Insomnia Levator syndrome Lipomatosis Liver mass Low back pain Macular degeneration Multiple environmental allergies Neurofibromatosis 2 Neuropathy Obstructive sleep apnea Opioid dependence Osteoporosis Pain in thoracic spine Pancreatitis Radiculopathy, lumbosacral region Radiculopathy, sacral and sacrococcygeal region Rectal pain REM sleep behavior disorder Sacrococcygeal pain Sleep disturbance Sleepwalking Snoring Stress Tremor Trigger finger Surgical History History of appendectomy (~1970) History of arthroplasty of right ankle (~2017) History of cataract surgery (~2003) History of cholecystectomy History of colonoscopy (~06/26/18) History of decompression of median nerve (~2003) History of dilation and curettage History of eye surgery (~2005) Glaucoma History of hand surgery (~2003) Release of trigger finger, right History of left breast biopsy (~2005) History of oophorectomy History of surgery Vertebroplasty T12 w/sed 09/28/19 History of surgery retinopathy laser Stereotactic destruction of lesion using gamma radiation-2004 History of surgery on wrist History of tonsillectomy and adenoidectomy (~1969) Family History Mother Heart disease Fibromyalgia Father Malignant melanoma Malignant tumor of prostate Leukemia Social History (Updated 02/22/22 @ 15:40 by Gi Vernon) lives independently: Yes marital status: education level: college occupational status: retired pets and animals: No other: 2 children physical activity: none smoking status: Never smoker alcohol intake frequency: does not drink substance use type: does not use seatbelt use: always working smoke detector in home: Yes carbon monox detector in home: Yes MEDS/ALLERGIES Home Medications and Allergies Home Medications Medication Instructions Recorded Confirmed Type [id number] 40,000 cap PO TID 06/01/21 05/06/22 History 40,000-126,000-168,000 unit capsule, delay rel (Zenpep) multivit [id number] 186 1 tab PO DAILY 07/15/21 05/06/22 History [Hair, Skin and Nails Advanced] trazodone 100 mg tablet 100 mg PO HSP PRN insomnia 08/22/21 05/06/22 History acyclovir 400 mg tablet 1 tab PO BID 09/21/21 05/06/22 History gabapentin 800 mg tablet 1 tab PO TID 09/21/21 05/06/22 History cholecalciferol (vitamin D3) 50 50 mcg PO DAILY 12/04/21 05/06/22 History mcg (2,000 unit) capsule (Vitamin D3) zinc 50 mg tablet 50 mg PO DAILY 12/04/21 05/06/22 History hyoscyamine sulfate 0.125 mg 0.125 mg PO Q6H PRN Abdominal 02/19/22 05/06/22 Rx sublingual tablet Discomfort #20 tabs insulin aspart U-100 100 unit/mL See Protocol subcut ACHS 04/23/22 05/06/22 History (3 mL) subcutaneous pen (Novolog Flexpen U-100 Insulin aspart) levothyroxine 100 mcg tablet 1 tab PO QDAY 04/23/22 05/06/22 History levothyroxine 25 mcg tablet 1 tab PO QAM 04/23/22 05/06/22 History propranolol 10 mg tablet 1 tab PO TID 04/23/22 05/06/22 History insulin degludec 100 unit/mL See Rx Instructions .Route .COMPLEX 04/25/22 05/06/22 History subcutaneous solution (Tresiba U-100 Insulin) Allergies Allergy/AdvReac Type Severity Reaction Status Date / Time cephalexin [From Keflex] Allergy Intermediate Swelling Verified 04/23/22 09:25 lidocaine Allergy Intermediate Blister Verified 05/06/22 16:53 Penicillins Allergy Mild Rash Verified 04/23/22 09:25 Anistreplase [From Eminase] Allergy Unknown UNKNOWN Verified 04/23/22 09:25 fenugreek Allergy Unknown UNKNOWN Verified 04/23/22 09:25 codeine AdvReac Mild Itching Verified 04/23/22 09:25 Erythromycin Base AdvReac Mild Itching Verified 04/23/22 09:25 Nortriptyline AdvReac Mild Nausea Verified 04/23/22 09:25 promethazine AdvReac Mild Fainting Verified 04/23/22 09:25 trulicity AdvReac Intermediate Other Uncoded 12/04/21 06:40 EXAM Constitutional Vitals: Temp Pulse Resp BP Pulse Ox O2 Del Method 97.6 F 82 20 105/67 95 05/06/22 17:58 05/06/22 17:58 05/06/22 17:58 05/06/22 17:58 05/06/22 17:58 05/06/22 17:58 General appearance: average body habitus, cooperative and mild distress Head Head exam: Present normal inspection Eye Eye exam: Present EOMI (Physiologic nystagmus present) and PERRL; Absent conjunctival injection or scleral icterus ENT ENT exam: Present mucous membranes moist and normal oropharynx Neck Neck exam: Present full ROM; Absent meningismus or tenderness Respiratory Respiratory exam: Present normal respiratory exam; Absent accessory muscle use, rales or wheezes Cardiovascular Cardiovascular exam: Present normal rate and rhythm and systolic murmur (Upper right sternal border without radiation) Expanded Cardiovascular Exam Peripheral pulses: 2+: carotid (L) and carotid (R) GI/Abdominal GI/Abdominal exam: Present normal bowel sounds and soft; Absent distended, guarding or tenderness Extremities Exam Extremities exam: Present full ROM and normal inspection; Absent joint swelling Back Exam Back exam: Present paraspinal tenderness, tenderness (Mid to lower thoracic spine with tenderness over the posterior right lower rib cage.) and vertebral tenderness Neurological Exam Neurological exam: Present alert, CN II-XII intact (Visual cedillo not tested) and oriented X3; Absent motor sensory deficit Expanded Neurological Exam Cranial nerves: EOM's intact: Normal, facial palsy with forehead movement: Normal, facial palsy without forehead movement: Normal, facial sensation: Normal, gag reflex: Normal, nystagmus: Normal and tongue deviation: Normal Sensory exam: lower extremity light touch: Normal and upper extremity light touch: Normal Neuro motor strength exam: LLE: 5 and RLE: 5 DTR: bicep (L): 1+, bicep (R): 1+, patellar (L): 1+ and patellar (R): 1+ Psychiatric Psychiatric exam: Present normal affect and normal mood Skin Skin exam: Present dry and warm DATA Data Completed and Pending Labs: Labs from last 24 hours 05/06/22 05/06/22 05/06/22 14:52 12:34 12:31 WBC RBC Hgb Hct POC Hct MCV MCH MCHC RDW Plt Count MPV Immature Gran % (Auto) Neut % (Auto) Lymph % (Auto) Bartholomew % (Auto) Eos % (Auto) Baso % (Auto) Lymph # (Auto) Bartholomew # (Auto) Eos # (Auto) Baso # (Auto) Immature Gran # Absolute Neutrophils POC Sodium POC Potassium POC Chloride POC Total CO2 POC BUN POC Creatinine POC Glucose POC WB Ioniz Calcium Total Bilirubin 0.3 Direct Bilirubin < 0.2 AST 83 H ALT 39 Alkaline Phosphatase 111 Total Protein 6.3 Albumin 3.4 Globulin 2.9 Lipase 15 Urine Color Yellow Urine Appearance Clear Urine pH 5.5 Ur Specific Sigel 1.010 Urine Protein Negative Urine Glucose (UA) 500 mg/dl A Urine Ketones 40 mg/dl A Urine Occult Blood Trace-intact A Urine Nitrate Negative Urine Bilirubin Negative Urine Urobilinogen Normal Ur Leukocyte Esterase Negative Urine RBC 2 Urine WBC 3 Ur Squamous Epith Cells 0 Urine Bacteria None Ur Culture Indicated? No POC Troponin I 0.01 L 05/06/22 05/06/22 12:31 12:21 WBC 10.1 RBC 4.09 Hgb 12.4 Hct 36.7 POC Hct 36.0 MCV 89.7 MCH 30.3 MCHC 33.8 RDW 13.2 Plt Count 190 MPV 10.2 Immature Gran % (Auto) 0.8 H Neut % (Auto) 82.1 H Lymph % (Auto) 10.9 L Bartholomew % (Auto) 4.9 Eos % (Auto) 0.7 Baso % (Auto) 0.6 Lymph # (Auto) 1.11 L Bartholomew # (Auto) 0.50 Eos # (Auto) 0.07 Baso # (Auto) 0.06 Immature Gran # 0.08 H Absolute Neutrophils 8.32 H POC Sodium 136 POC Potassium 3.7 POC Chloride 101 POC Total CO2 21.0 L POC BUN 15 POC Creatinine 0.6 POC Glucose 390 H POC WB Ioniz Calcium 1.10 L Total Bilirubin Direct Bilirubin AST ALT Alkaline Phosphatase Total Protein Albumin Globulin Lipase Urine Color Urine Appearance Urine pH Ur Specific Sigel Urine Protein Urine Glucose (UA) Urine Ketones Urine Occult Blood Urine Nitrate Urine Bilirubin Urine Urobilinogen Ur Leukocyte Esterase Urine RBC Urine WBC Ur Squamous Epith Cells Urine Bacteria Ur Culture Indicated? POC Troponin I Imaging and Cardiology CT -Chest/abdomen/pelvis: Status: image reviewed by me Additional comments: IMPRESSION: 1. Severe coronary artery calcification 2. Mild compression deformities of T7 and T8 vertebral bodies. Chronicity is not certain. Chronic compression deformities of the T12 and L2 vertebral bodies 3. Calcification of the abdominal aorta. No abdominal aortic aneurysm 4. No pneumoperitoneum or hemoperitoneum. No splenic or hepatic injury 5. Previous cholecystectomy. Mild intrahepatic bile duct dilatation. Chronic dilatation of the common bile duct CT scan - head: Status: image reviewed by me Additional comments: IMPRESSION: Negative post trauma brain CT scan CT scan - cervical spine: Additional comments: IMPRESSION: 1. Degenerative disc disease at C5-6 and C6-7 2. Mild T2 superior endplate compression deformity. Uncertain chronicity A/P Narrative A/P Narrative: 76-year-old female with a history of falls presents after fall from home. Significant back pain, hospitalized for further pain control, evaluation by physical therapy. Fall with back pain -Ground-level fall -She does not think she tripped on anything -No loss of consciousness -Did have dizziness/spinning sensation prior to fall, which has been chronic for her -Does have an aortic murmur, will evaluate for aortic stenosis as etiology (felt less likely) -Requiring intravenous opioids for adequate pain control Type 2 diabetes mellitus, insulin requiring -Uses Tresiba 30 units in the morning and 25 units p.m. -Uses sliding scale NovoLog -Hospitalization for DKA earlier this month -Current fall not associated with hypoglycemia Tremor -Ongoing for at least 5 years by her daughters estimate -Follows with neurology at [facility] -On propranolol -At times so severe, she must use a walker and not her cane Chronic pancreatitis -On pancreatic enzymes Coronary artery disease -No current symptoms Hypothyroidism -On levothyroxine Plan: -Hospitalize on observation -Oral oxycodone, intravenous hydromorphone for pain control -Continue home gabapentin -Has lidocaine patch allergy, unable to use that modality -Lantus 25 units twice daily instead of Tresiba -Sliding scale insulin with meals -Continue pancreatic enzymes -Continue propranolol -PT eval and treat CODE STATUS: DO NOT RESUSCITATE DVT prophylaxis: Enoxaparin
[2022-05-06] MEDS: HYDROmorphone 0.5 MG/0.5 ML SYRINGE IV PRN (19:21)
[2022-05-06] MEDS: SENNOSIDES 1 TABLET PO SCH (21:03)
[2022-05-06] MEDS: GABAPENTIN 400 MG CAPSULE PO SCH (21:03)
[2022-05-06] MEDS: FAMOTIDINE 20 MG TABLET PO SCH (21:04)
[2022-05-06] MEDS: DOCUSATE SODIUM 100 MG CAPSULE PO SCH (21:04)
[2022-05-06] MEDS: ACYCLOVIR 400 MG TABLET PO SCH (21:04)
[2022-05-06] MEDS: PROPRANOLOL 10 MG TABLET PO SCH (21:04)
[2022-05-06] MEDS: INSULIN GLARGINE, HUMAN 1 UNIT/0.01 ML SQ SCH (21:05)
[2022-05-06] MEDS: LIPASE PROTEASE AMYLASE PO SCH (21:14)
[2022-05-06] MEDS: 0.9 % SODIUM CHLORIDE 10 ML SYRINGE IV SCH (21:15)
[2022-05-06] MEDS: INSULIN LISPRO 1 UNIT/0.01 ML UNIT SQ SCH ×2 (21:34→23:30)
[2022-05-06] MEDS: traZODone HCL 100 MG TABLET PO PRN (21:36)
[2022-05-06] MEDS: oxyCODONE HCL 5 MG TABLET PO PRN (21:36)
[2022-05-07] MEDS: HYDROmorphone 0.5 MG/0.5 ML SYRINGE IV PRN ×6 (01:18→23:00)
[2022-05-07] MEDS: 0.9 % SODIUM CHLORIDE 10 ML SYRINGE IV SCH ×3 (05:57→20:59)
[2022-05-07] MEDS: INSULIN LISPRO 1 UNIT/0.01 ML UNIT SQ SCH ×4 (07:33→21:11)
[2022-05-07] MEDS: ACYCLOVIR 400 MG TABLET PO SCH ×2 (08:24→20:56)
[2022-05-07] MEDS: GABAPENTIN 400 MG CAPSULE PO SCH ×3 (08:24→20:56)
[2022-05-07] MEDS: LEVOTHYROXINE 125 MCG TABLET PO SCH (08:25)
[2022-05-07] MEDS: PROPRANOLOL 10 MG TABLET PO SCH ×3 (08:25→20:56)
[2022-05-07] MEDS: DOCUSATE SODIUM 100 MG CAPSULE PO SCH ×2 (08:25→20:56)
[2022-05-07] MEDS: FAMOTIDINE 20 MG TABLET PO SCH ×2 (08:25→20:56)
[2022-05-07] MEDS: INSULIN GLARGINE, HUMAN 1 UNIT/0.01 ML SQ SCH ×2 (08:25→20:59)
[2022-05-07] MEDS: LIPASE PROTEASE AMYLASE PO SCH ×3 (08:27→23:01)
[2022-05-07] MEDS: ENOXAPARIN 40 MG/0.4 ML SYRINGE SQ SCH (08:28)
[2022-05-07] MEDS ORDERED: LEVOTHYROXINE 100 MCG TABLET PO SCH (09:00)
[2022-05-07] MEDS: METHOCARBAMOL 500 MG TABLET PO PRN ×2 (13:42→21:11)
[2022-05-07] MEDS: oxyCODONE HCL 5 MG TABLET PO PRN ×2 (13:44→23:00)
[2022-05-07] MEDS: SENNOSIDES 1 TABLET PO SCH (20:56)
--- NOTE | 2022-05-07 20:56 | Internal Med Progress Note ---
SUBJECTIVE Subjective Patient information: Note initiated : 05/07/22 at 8:52 pm Service Date, if different from initiated Date: [] Patient: Tennille Castillo a 76 y/o F admitted on 05/06/22 for fall. Chief Complaint: [] Principal diagnosis: Back pain following ground-level fall Interval history: 05/06: Ms. 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 Patient states she had been up for about an hour this morning went into the bathroom, felt spinning and fell hitting her back. She has had recent falls in the past, including one about July 2020 that also resulted in a forehead laceration and loss of memory. After the fall today, the patient felt it very difficult to get up. She was experiencing mid to low thoracic back pain, also off to the right in the mid to lower thoracic region. She did not have weakness in the legs, no focal neurologic symptoms, it was difficult for her to get up due to pain. Because of ongoing pain she presents to the ED. Evaluation in the emergency department imaging showed mild T7 and T8 compression fractures of undetermined duration. There are no evidence of rib fractures. She did have tenderness over the right lower rib cage. She received fentanyl with minimal effect. She received a dose of hydromorphone with mild drop in her oxygen saturations but mild effect on the pain. Subsequently she received ketorolac and a dose of her usual gabapentin which provided some mild relief, she subsequently received another dose of hydromorphone. She is now being hospitalized for further pain control. 05/07: Patient still with significant back pain and spasms. Methocarbamol has been added to the regimen. Working with physical therapy. Constitutional Vitals: Vital Signs Temp Pulse Resp BP Pulse Ox O2 Del Method O2 Flow Rate 97.1 F 66 20 140/60 99 2 05/07/22 19:16 05/07/22 19:16 05/07/22 19:16 05/07/22 19:16 05/07/22 19:16 05/07/22 19:16 05/07/22 19:16 Period Temp Pulse Resp BP Sys/Rosario Pulse Ox O2 Del Method O2 Flow Rate Last 24 Hr 96.2 F-98.2 F 65-72 16-20 93-140/54-67 92-100 Nasal Cannula- Nasal Cannula 2-2 Intake and Output 05/07/22 05/07/22 05/07/22 05:59 13:59 21:59 Intake Total 400 480 Output Total 900 Balance -500 480 Weight 167 lb 3.2 oz Patient Weight 05/08/22 05:59 Weight 167 lb 3.2 oz Intake & Output: Intake & Output 05/07/22 05/07/22 05/07/22 05:59 13:59 21:59 Intake Total 400 480 Output Total 900 Balance -500 480 Weight 167 lb 3.2 oz Intake: Oral 400 480 Output: Void Amount 900 Other: Meal Lunch Percent of Meal Consumed 100% Feeding Ability Independent GENERAL: In bed, appears uncomfortable RESPIRATORY: Unlabored, clear CARDIOVASCULAR: Regular ABDOMEN: Soft, nontender EXTREMITIES: No edema NEURO: Alert, oriented to person, place and situation. Strength 5/5 at the ankles bilaterally OBJ DATA Labs CBC & Chem 7: 05/06/22 12:31 Labs: Abnormal Lab Results 05/06/22 05/06/22 05/06/22 14:52 12:34 12:31 Immature Gran % (Auto) Neut % (Auto) Lymph % (Auto) Lymph # (Auto) Immature Gran # Absolute Neutrophils POC Total CO2 POC Glucose POC WB Ioniz Calcium AST 83 H Urine Glucose (UA) 500 mg/dl A Urine Ketones 40 mg/dl A Urine Occult Blood Trace-intact A POC Troponin I 0.01 L 05/06/22 05/06/22 12:31 12:21 Immature Gran % (Auto) 0.8 H Neut % (Auto) 82.1 H Lymph % (Auto) 10.9 L Lymph # (Auto) 1.11 L Immature Gran # 0.08 H Absolute Neutrophils 8.32 H POC Total CO2 21.0 L POC Glucose 390 H POC WB Ioniz Calcium 1.10 L AST Urine Glucose (UA) Urine Ketones Urine Occult Blood POC Troponin I Meds: Medications Acetaminophen (Acetaminophen 325 Mg Tablet) 650 mg PO Q6HP PRN; Protocol PRN Reason: Per Pain Protocol/Fever > 101 Acyclovir (Acyclovir 400 Mg Tablet) 400 mg PO BID PEG; Protocol Last Admin: 05/07/22 08:24 Dose: 400 mg Dextrose (Dextrose 50% 50 Ml Vial) 0 ml IV UD PRN PRN Reason: Per Sliding Scale Diagnostic Test (Pha) (Accu-Chek 1 Each Strip) 1 each FS ACHS [facility] Last Admin: 05/07/22 18:14 Dose: 1 each Docusate Sodium (Docusate Sodium 100 Mg Capsule) 100 mg PO BID [facility] Last Admin: 05/07/22 08:25 Dose: 100 mg Enoxaparin Sodium (Enoxaparin 40 Mg/0.4 Ml Syringe) 40 mg SQ DAILY [facility] Last Admin: 05/07/22 08:28 Dose: 40 mg Famotidine (Famotidine 20 Mg Tablet) 20 mg PO BID [facility] Last Admin: 05/07/22 08:25 Dose: 20 mg Gabapentin (Gabapentin 400 Mg Capsule) 800 mg PO TID [facility] Last Admin: 05/07/22 15:58 Dose: 800 mg Glucose (Dextrose 31 Gm Oral.Susp) 15 gm PO PRN PRN PRN Reason: Hypoglycemia Hydromorphone HCl (Hydromorphone 0.5 Mg/0.5 Ml Syringe) 0.5 mg IV Q2HP PRN; Protocol PRN Reason: Per Pain Protocol Last Admin: 05/07/22 18:57 Dose: 0.5 mg Insulin Glargine (Insulin Glargine, Human 1 Unit/0.01 Ml) 25 unit SQ BID [facility] Last Admin: 05/07/22 08:25 Dose: 25 units Insulin Human Lispro (Insulin Lispro 1 Unit/0.01 Ml Unit) 0 unit SQ [facility]; Protocol Last Admin: 05/07/22 18:25 Dose: 8 units Levothyroxine Sodium (Levothyroxine 125 Mcg Tablet) 125 mcg PO QAMAC [facility] Last Admin: 05/07/22 08:25 Dose: 125 mcg Methocarbamol (Methocarbamol 500 Mg Tablet) 500 mg PO TIDP PRN PRN Reason: Muscle Spasm Last Admin: 05/07/22 13:42 Dose: 500 mg Ondansetron HCl (Ondansetron 4 Mg/2 Ml Vial) 4 mg IV Q6HP PRN PRN Reason: Nausea And Vomiting Oxycodone HCl (Oxycodone Hcl 5 Mg Tablet) 5 mg PO Q4HP PRN; Protocol PRN Reason: Per Pain Protocol Last Admin: 05/07/22 13:44 Dose: 5 mg Lipase-Protease- Amylase [Zenpep] 40, 000-126,000- 168,000 40,000 dose PO TID [facility] Last Admin: 05/07/22 15:59 Dose: 40,000 dose Propranolol HCl (Propranolol 10 Mg Tablet) 10 mg PO TID [facility] Last Admin: 05/07/22 15:58 Dose: 10 mg Senna (Sennosides 1 Tablet) 2 tab PO HS [facility] Last Admin: 05/06/22 21:03 Dose: 2 tab Sodium Chloride (0.9 % Sodium Chloride 10 Ml Syringe) 10 ml IV Q8 [facility] Last Admin: 05/07/22 16:02 Dose: 10 ml Trazodone HCl (Trazodone Hcl 100 Mg Tablet) 100 mg PO HSP PRN PRN Reason: insomnia Last Admin: 05/06/22 21:36 Dose: 100 mg A/P Narrative A/P Narrative: 76-year-old female with a history of falls presents after fall from home. Significant back pain, hospitalized for further pain control, evaluation by physical therapy. Fall with back pain -Ground-level fall -She does not think she tripped on anything -No loss of consciousness -Did have dizziness/spinning sensation prior to fall, which has been chronic for her -Does have an aortic murmur, will evaluate for aortic stenosis as etiology (felt less likely) -Requiring intravenous opioids for adequate pain control Type 2 diabetes mellitus, insulin requiring -Uses Tresiba 30 units in the morning and 25 units p.m. -Uses sliding scale NovoLog -Hospitalization for DKA earlier this month -Current fall not associated with hypoglycemia Tremor -Ongoing for at least 5 years by her daughters estimate -Follows with neurology at [facility] -On propranolol -At times so severe, she must use a walker and not her cane Chronic pancreatitis -On pancreatic enzymes Coronary artery disease -No current symptoms Hypothyroidism -On levothyroxine Plan: * Continue with oral and IV pain control * Add methocarbamol * Continue with gabapentin at home doses * PT evaluation/treatment * Continue with Lantus 25 units twice daily (on Tresiba at home) * Continue sliding scale insulin * Continue pancreatic enzymes * Continue propranolol Disposition: Likely will need placement for rehab; ultimately patient would like assisted living facility Time Spent With Patient Time: Total time spent is greater than 50% in coordination of care (as documented) at patient's floor/unit and/or counseling patient: Total time spent with greater than 50% in coordination of care (as documented) at patient's floor/unit and/or counseling patient:: 25 - 35 minutes
[2022-05-07] MEDS: traZODone HCL 100 MG TABLET PO PRN (21:11)
[2022-05-08] MEDS: 0.9 % SODIUM CHLORIDE 10 ML SYRINGE IV SCH ×3 (07:32→21:34)
[2022-05-08] MEDS: METHOCARBAMOL 500 MG TABLET PO PRN ×3 (07:42→21:27)
[2022-05-08] MEDS: oxyCODONE HCL 5 MG TABLET PO PRN ×4 (07:42→21:27)
[2022-05-08] MEDS: LEVOTHYROXINE 125 MCG TABLET PO SCH (07:42)
[2022-05-08] MEDS: INSULIN LISPRO 1 UNIT/0.01 ML UNIT SQ SCH ×4 (07:44→21:40)
[2022-05-08 09:46] LABS: Albumin 3.4 gm/dL (3.2-5.2); Blood Urea Nitrogen 9 mg/dL (8-23); Calcium 9.3 mg/dL (8.6-10.4); Carbon Dioxide 27 mmol/L (22-30); Chloride 105 mmol/L (96-108); Glomerular Filtration Rate 84; Glucose 178 mg/dL (70-105); Phosphorous 3.1 mg/dL (2.5-4.5)
[2022-05-08] MEDS: GABAPENTIN 400 MG CAPSULE PO SCH ×3 (10:24→21:26)
[2022-05-08] MEDS: INSULIN GLARGINE, HUMAN 1 UNIT/0.01 ML SQ SCH ×2 (10:25→21:40)
[2022-05-08] MEDS: FAMOTIDINE 20 MG TABLET PO SCH ×2 (10:25→21:27)
[2022-05-08] MEDS: ENOXAPARIN 40 MG/0.4 ML SYRINGE SQ SCH (10:25)
[2022-05-08] MEDS: DOCUSATE SODIUM 100 MG CAPSULE PO SCH ×2 (10:25→21:26)
[2022-05-08] MEDS: PROPRANOLOL 10 MG TABLET PO SCH ×3 (10:25→21:26)
[2022-05-08] MEDS: LIPASE PROTEASE AMYLASE PO SCH ×3 (10:25→21:27)
[2022-05-08] MEDS: ACYCLOVIR 400 MG TABLET PO SCH ×2 (10:25→21:26)
--- NOTE | 2022-05-08 12:11 | Internal Med Progress Note ---
SUBJECTIVE Subjective Patient information: Note initiated : 05/08/22 at 12:08 pm Service Date, if different from initiated Date: [] Patient: Tennille Castillo a 76 y/o F admitted on 05/06/22 for fall. Chief Complaint: [] Principal diagnosis: Back pain following ground-level fall Interval history: 05/06: Ms. Castillo is a 76 year old F with a history of type 2 diabetes which is insulin requiring and with recent admission for diabetic ketoacidosis, hypothyroidism, tremor, coronary artery disease, chronic pancreatitis, fibromyal jd, cirrhosis presents the ED after a fall. Patient states she had been up for about an hour this morning went into the bathroom, felt spinning and fell hitting her back. She has had recent falls in the past, including one about July 2020 that also resulted in a forehead laceration and loss of memory. After the fall today, the patient felt it very difficult to get up. She was experiencing mid to low thoracic back pain, also off to the right in the mid to lower thoracic region. She did not have weakness in the legs, no focal neurologic symptoms, it was difficult for her to get up due to pain. Because of ongoing pain she presents to the ED. Evaluation in the emergency department imaging showed mild T7 and T8 compression fractures of undetermined duration. There are no evidence of rib fractures. She did have tenderness over the right lower rib cage. She received fentanyl with minimal effect. She received a dose of hydromorphone with mild drop in her oxygen saturations but mild effect on the pain. Subsequently she received ketorolac and a dose of her usual gabapentin which provided some mild relief, she subsequently received another dose of hydromorphone. She is now being hospitalized for further pain control. 05/07: Patient still with significant back pain and spasms. Methocarbamol has been added to the regimen. Working with physical therapy. 05/08: Still with back pain spasms from the right lower thoracic region across to the left. Using methocarbamol and oxycodone. Patient tends to hold her breath desaturates secondary to pain, not taking good deep inspirations. Has an allergy to lidocaine patches. Voltaren gel is nonformulary at this hospital. May benefit from IPC referral at discharge. Constitutional Vitals: Vital Signs Temp Pulse Resp BP Pulse Ox O2 Del Method O2 Flow Rate 96.4 F L 70 14 123/64 97 2 05/08/22 08:00 05/08/22 08:00 05/08/22 08:00 05/08/22 08:00 05/08/22 08:00 05/08/22 08:00 05/08/22 08:00 Period Temp Pulse Resp BP Sys/Rosario Pulse Ox O2 Del Method O2 Flow Rate Last 24 Hr 96.2 F-97.5 F 65-70 14-20 123-154/60-72 95-100 Nasal Cannula- Nasal Cannula 2-2 Intake and Output 05/07/22 05/08/22 05/08/22 21:59 05:59 13:59 Intake Total 400 150 240 Output Total 1050 Balance 400 -900 240 Weight 167 lb 3.2 oz Intake & Output: Intake & Output 05/07/22 05/08/22 05/08/22 21:59 05:59 13:59 Intake Total 400 150 240 Output Total 1050 Balance 400 -900 240 Weight 167 lb 3.2 oz Intake: Oral 400 150 240 Output: Void Amount 1050 Other: Meal Breakfast Percent of Meal Consumed 100% GENERAL: Laying in bed, mildly uncomfortable, she has just woken up RESPIRATORY: Clear bilaterally CARDIOVASCULAR: Regular ABDOMEN: Soft, nontender MUSCULOSKELETAL: Tenderness in the right lower thorax paraspinous region EXTREMITIES: No edema NEURO: Alert, oriented x3, lower extremities neurologically intact OBJ DATA Labs CBC & Chem 7: 05/06/22 12:31 05/08/22 05:42 Labs: Abnormal Lab Results 05/08/22 05/06/22 05/06/22 05:42 14:52 12:34 Immature Gran % (Auto) Neut % (Auto) Lymph % (Auto) Lymph # (Auto) Immature Gran # Absolute Neutrophils POC Total CO2 Glucose 178 H POC Glucose POC WB Ioniz Calcium AST Urine Glucose (UA) 500 mg/dl A Urine Ketones 40 mg/dl A Urine Occult Blood Trace-intact A POC Troponin I 0.01 L 05/06/22 05/06/22 05/06/22 12:31 12:31 12:21 Immature Gran % (Auto) 0.8 H Neut % (Auto) 82.1 H Lymph % (Auto) 10.9 L Lymph # (Auto) 1.11 L Immature Gran # 0.08 H Absolute Neutrophils 8.32 H POC Total CO2 21.0 L Glucose POC Glucose 390 H POC WB Ioniz Calcium 1.10 L AST 83 H Urine Glucose (UA) Urine Ketones Urine Occult Blood POC Troponin I Meds: Medications Acetaminophen (Acetaminophen 325 Mg Tablet) 650 mg PO Q6HP PRN; Protocol PRN Reason: Per Pain Protocol/Fever > 101 Acyclovir (Acyclovir 400 Mg Tablet) 400 mg PO BID [facility]; Protocol Last Admin: 05/08/22 10:25 Dose: 400 mg Dextrose (Dextrose 50% 50 Ml Vial) 0 ml IV UD PRN PRN Reason: Per Sliding Scale Diagnostic Test (Pha) (Accu-Chek 1 Each Strip) 1 each FS ACHS [facility] Last Admin: 05/08/22 11:42 Dose: 1 each Docusate Sodium (Docusate Sodium 100 Mg Capsule) 100 mg PO BID [facility] Last Admin: 05/08/22 10:25 Dose: 100 mg Enoxaparin Sodium (Enoxaparin 40 Mg/0.4 Ml Syringe) 40 mg SQ DAILY [facility] Last Admin: 05/08/22 10:25 Dose: 40 mg Famotidine (Famotidine 20 Mg Tablet) 20 mg PO BID [facility] Last Admin: 05/08/22 10:25 Dose: 20 mg Gabapentin (Gabapentin 400 Mg Capsule) 800 mg PO TID [facility] Last Admin: 05/08/22 10:24 Dose: 800 mg Glucose (Dextrose 31 Gm Oral.Susp) 15 gm PO PRN PRN PRN Reason: Hypoglycemia Hydromorphone HCl (Hydromorphone 0.5 Mg/0.5 Ml Syringe) 0.5 mg IV Q2HP PRN; Pro tocol PRN Reason: Per Pain Protocol Last Admin: 05/07/22 23:00 Dose: 0.5 mg Insulin Glargine (Insulin Glargine, Human 1 Unit/0.01 Ml) 25 unit SQ BID [facility] Last Admin: 05/08/22 10:25 Dose: 25 units Insulin Human Lispro (Insulin Lispro 1 Unit/0.01 Ml Unit) 0 unit SQ [facility]; Protocol Last Admin: 05/08/22 11:50 Dose: 8 units Levothyroxine Sodium (Levothyroxine 125 Mcg Tablet) 125 mcg PO QAMAC [facility] Last Admin: 05/08/22 07:42 Dose: 125 mcg Methocarbamol (Methocarbamol 500 Mg Tablet) 500 mg PO TIDP PRN PRN Reason: Muscle Spasm Last Admin: 05/08/22 07:42 Dose: 500 mg Ondansetron HCl (Ondansetron 4 Mg/2 Ml Vial) 4 mg IV Q6HP PRN PRN Reason: Nausea And Vomiting Oxycodone HCl (Oxycodone Hcl 5 Mg Tablet) 5 mg PO Q4HP PRN; Protocol PRN Reason: Per Pain Protocol Last Admin: 05/08/22 07:42 Dose: 5 mg Lipase-Protease- Amylase [Zenpep] 40, 000-126,000- 168,000 1 dose PO TID [facility] Last Admin: 05/08/22 10:25 Dose: 1 dose Propranolol HCl (Propranolol 10 Mg Tablet) 10 mg PO TID [facility] Last Admin: 05/08/22 10:25 Dose: 10 mg Senna (Sennosides 1 Tablet) 2 tab PO HS [facility] Last Admin: 05/07/22 20:56 Dose: 2 tab Sodium Chloride (0.9 % Sodium Chloride 10 Ml Syringe) 10 ml IV Q8 [facility] Last Admin: 05/08/22 07:32 Dose: Not Given Trazodone HCl (Trazodone Hcl 100 Mg Tablet) 100 mg PO HSP PRN PRN Reason: insomnia Last Admin: 05/07/22 21:11 Dose: 100 mg A/P Narrative A/P Narrative: 76-year-old female with a history of falls presents after fall from home. Significant back pain, hospitalized for further pain control, evaluation by physical therapy. Fall with back pain -Ground-level fall -She does not think she tripped on anything -No loss of consciousness -Did have dizziness/spinning sensation prior to fall, which has been chronic for her -Does have an aortic murmur, will evaluate for aortic stenosis as etiology (felt less likely) -Requiring intravenous opioids for adequate pain control Type 2 diabetes mellitus, insulin requiring -Uses Tresiba 30 units in the morning and 25 units p.m. -Uses sliding scale NovoLog -Hospitalization for DKA earlier this month -Current fall not associated with hypoglycemia Tremor -Ongoing for at least 5 years by her daughters estimate -Follows with neurology at [facility] -On propranolol -At times so severe, she must use a walker and not her cane Chronic pancreatitis -On pancreatic enzymes Coronary artery disease -No current symptoms Hypothyroidism -On levothyroxine Plan: * Continue current pain control * Continue methocarbamol * Continue home dose to gabapentin * Continue with skilled therapies * Continue with diabetes, tremor, pancreatic insufficiency care * Reevaluate later today for possible discharge Disposition: Likely will need placement for rehab, though the patient is not interested currently; ultimately patient would like assisted living facility Time Spent With Patient Time: Total time spent is greater than 50% in coordination of care (as documented) at patient's floor/unit and/or counseling patient: Total time spent with greater than 50% in coordination of care (as documented) at patient's floor/unit and/or counseling patient:: 25 - 35 minutes
--- NOTE | 2022-05-08 13:00 | Discharge Summary ---
Discharge Provider Provider IMPORTANT FOLLOW-UP INFORMATION FOR PCP: Patient information: Note initiated : 05/08/22 at 12:57 pm Service Date, if different from initiated Date: [] Patient: Tennille Castillo a 76 y/o F admitted on 05/06/22 for fall. Chief Complaint: [] Date of admission: 05/06/22 17:41 Discharge date: 05/09/22 Primary care physician: OSKAR Carvajal Consults: 05/06/22 Consult to Physician [CONS] Stat Comment: Consulting Provider: Sharon Segura Reason For Exam: Physician to Consult COURSE Hospital Course Hospital course: Ms. 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 Patient states she had been up for about an hour this morning went into the bathroom, felt spinning and fell hitting her back. She has had recent falls in the past, including one about July 2020 that also resulted in a forehead laceration and loss of memory. After the fall today, the patient felt it very difficult to get up. She was experiencing mid to low thoracic back pain, also off to the right in the mid to lower thoracic region. She did not have weakness in the legs, no focal neurologic symptoms, it was difficult for her to get up due to pain. Because of ongoing pain she presents to the ED. Evaluation in the emergency department imaging showed mild T7 and T8 compression fractures of undetermined duration. There are no evidence of rib fractures. She did have tenderness over the right lower rib cage. She received fentanyl with minimal effect. She received a dose of hydromorphone with mild drop in her oxygen saturations but mild effect on the pain. Subsequently she received ketorolac and a dose of her usual gabapentin which provided some mild relief, she subsequently received another dose of hydromorphone. She is now being ho spitalized for further pain control. 05/07: Patient still with significant back pain and spasms. Methocarbamol has been added to the regimen. Working with physical therapy. 05/08: Still with back pain spasms from the right lower thoracic region across to the left. Using methocarbamol and oxycodone. Patient tends to hold her breath desaturates secondary to pain, not taking good deep inspirations. Has an allergy to lidocaine patches. Voltaren gel is nonformulary at this hospital. May benefit from IPC referral at discharge. 05/09 Feeling better. Pain better controlled. No overnight event or new complaints. high risk for readmission given multiple hospitalizations. Patient needs to transition to at least an assisted living facility. A: -Fall with back pain,Ground-level fall -Type 2 diabetes mellitus, insulin requiring -Tremor -Chronic pancreatitis -Coronary artery disease -Hypothyroidism Plan: * Continue current pain control * Continue methocarbamol * Continue home dose to gabapentin Discharge diagnosis: fall with back pain Secondary discharge diagnosis: diabetes, tremor, pancreatitis Time Spent with Patient Time attestation: Total time spent providing and/or coordinating discharge services: Time spent: Greater than 30 minutes EXAM Constitutional Vitals: Temp Pulse Resp BP Pulse Ox O2 Del Method O2 Flow Rate 96.4 F L 70 14 123/64 97 2 05/08/22 08:00 05/08/22 08:00 05/08/22 08:00 05/08/22 08:00 05/08/22 08:00 05/08/22 08:00 05/08/22 08:00 Discharge Data Data Completed and Pending Labs on day of discharge: Labs from last 24 hours 05/08/22 05:42 Sodium 142 Potassium 4.4 Chloride 105 Carbon Dioxide 27 Anion Gap 10.0 BUN 9 Creatinine 0.7 GFR Calculation 84 Glucose 178 H Calcium 9.3 Phosphorus 3.1 Albumin 3.4 Discharge Plan Patient/Caregiver Discharge Instructions Activity: increase activity as tolerated Diet: Consistent Carbohydrate Activity Restrictions/Additional Instructions: follow up with [facility] or SNF placement outpt. Prescriptions: New methocarbamol 500 mg Tablet 500 mg PO TIDP PRN (Reason: Muscle Spasm) Qty: 30 0RF oxycodone 5 mg Tablet 5 mg PO Q4HP PRN (Reason: Per Pain Protocol) Qty: 20 0RF Continued multivit [id number] [Hair, Skin and Nails Advanced] 1 tab PO DAILY trazodone 100 mg tablet 100 mg PO HSP PRN (Reason: insomnia) Zenpep 40,000-126,000- 168,000 unit capsule,delayed release(DR/EC) 40,000 cap PO TID Label Comments: take 1 capsule by mouth three times a day acyclovir 400 mg tablet 1 tab PO BID gabapentin 800 mg tablet 1 tab PO TID zinc 50 mg Tablet 50 mg PO DAILY cholecalciferol (vitamin D3) [Vitamin D3] 50 mcg (2,000 unit) Capsule 50 mcg PO DAILY hyoscyamine sulfate 0.125 mg tablet, sublingual 0.125 mg PO Q6H PRN (Reason: Abdominal Discomfort) Qty: 20 0RF levothyroxine 25 mcg tablet 1 tab PO QAM propranolol 10 mg tablet 1 tab PO TID insulin aspart U-100 [Novolog Flexpen U-100 Insulin] 100 unit/mL (3 mL) insulin pen See Protocol subcut ACHS Protocol: Insulin Sliding Scale, High Condition: HUMALOG/NOVALOG SC SLIDING Dose/Route: SCALE Condition: FSBS < 70 Dose/Route: Give 4 Oz juice, or 15gm oral Instruction: Glucose, or 25ml D50W IV if Dose/Route: unable to take PO. Recheck in Instruction: 15 min and repeat if FSBS < 70 Condition: FSBS 71-140 Dose/Route: NO COVERAGE Condition: FSBS 141-170 Dose/Route: 3 UNITS Condition: FSBS 171-200 Dose/Route: 6 UNITS Condition: FSBS 201-250 Dose/Route: 9 UNITS Condition: FSBS 251-300 Dose/Route: 12 UNITS Condition: FSBS 301-350 Dose/Route: 15 UNITS Condition: FSBS 351-400 Dose/Route: 18 UNITS Condition: FSBS > 400 Dose/Route: 20 UNITS; REPEAT Q2H X2 Instruction: CO NTINUE FOLLOWING SLIDING Condition: SCALE; IF STILL > 400; CALL Dose/Route: PHYSICIAN levothyroxine 100 mcg tablet 1 tab PO QDAY Tresiba U-100 Insulin 100 unit/mL solution See Rx Instructions .ROUTE .COMPLEX Rx Instructions: 30 units QAM, 25 units QPM atorvastatin 40 mg tablet 1 tab PO QDAY duloxetine 30 mg capsule,delayed release(DR/EC) 1 cap PO QDAY Follow Up Plan Follow up with: Jacque Severino FNP [Primary Care Provider] - Patient Disposition: Home Health Service Prognosis: Fair Rehab Potential: Fair Overall status at discharge: patient is progressing back to baseline Discharge Orders: Discharge Order (Routine); Ordered 05/09/22 Ordered By: Jef Borges
[2022-05-08] MEDS: HYDROmorphone 0.5 MG/0.5 ML SYRINGE IV PRN ×3 (15:26→22:57)
[2022-05-08] MEDS: SENNOSIDES 1 TABLET PO SCH (21:26)
[2022-05-08] MEDS: traZODone HCL 100 MG TABLET PO PRN (21:27)
[2022-05-09] MEDS: oxyCODONE HCL 5 MG TABLET PO PRN ×3 (03:30→14:07)
[2022-05-09] MEDS: HYDROmorphone 0.5 MG/0.5 ML SYRINGE IV PRN (04:33)
[2022-05-09] MEDS: 0.9 % SODIUM CHLORIDE 10 ML SYRINGE IV SCH ×2 (04:33→14:07)
[2022-05-09] MEDS: INSULIN LISPRO 1 UNIT/0.01 ML UNIT SQ SCH ×2 (08:02→11:50)
[2022-05-09] MEDS: FAMOTIDINE 20 MG TABLET PO SCH (08:13)
[2022-05-09] MEDS: LEVOTHYROXINE 125 MCG TABLET PO SCH (08:13)
[2022-05-09] MEDS: PROPRANOLOL 10 MG TABLET PO SCH ×2 (08:13→14:07)
[2022-05-09] MEDS: DOCUSATE SODIUM 100 MG CAPSULE PO SCH (08:13)
[2022-05-09] MEDS: ACYCLOVIR 400 MG TABLET PO SCH (08:13)
[2022-05-09] MEDS: INSULIN GLARGINE, HUMAN 1 UNIT/0.01 ML SQ SCH (08:14)
[2022-05-09] MEDS: LIPASE PROTEASE AMYLASE PO SCH ×2 (08:14→14:08)
[2022-05-09] MEDS: GABAPENTIN 400 MG CAPSULE PO SCH ×2 (08:14→14:07)
[2022-05-09] MEDS: ENOXAPARIN 40 MG/0.4 ML SYRINGE SQ SCH (08:14)
[2022-05-09] MEDS: METHOCARBAMOL 500 MG TABLET PO PRN ×2 (09:47→14:07)
== END 2022-05-09 15:45 | disposition home health service (06) ==
LOC: MEDSUR 12:02 → ED 12:02 → MEDSUR 17:00
PROVIDERS: ADMIT Internal Medicine; ATTEND Internal Medicine

== ENCOUNTER 2022-08-15 14:47 | Inpatient (IN) ==
[2022-08-15] MEDS ORDERED: 0.9 % SODIUM CHLORIDE 1,000 ML IV ONE (15:02)
[2022-08-15 15:38] LABS: Basophils # (Auto) 0.06 K/mcL (0.00-0.30); Basophils % (Auto) 1.1 % (0.0-2.0); Eosinophils # (Auto) 0.06 K/mcL (0.00-0.70); Eosinophils % (Auto) 1.1 % (0.0-7.0); Hematocrit 41.8 % (34.1-44.9); Hemoglobin 13.2 g/dL (11.2-15.7); Lymphocytes # (Auto) 1.63 K/mcL (1.50-4.80); Lymphocytes % (Auto) 29.8 % (15.5-49.0); Mean Cell Volume 93.5 fL (80.0-100.0); Mean Corpuscular HGB Conc 31.6 g/dL (31.0-36.0); Mean Platelet Volume 10.2 fL (8.8-12.5); Monocytes # (Auto) 0.23 K/mcL (0.10-0.90); Monocytes % (Auto) 4.2 % (1.0-12.0); Neutrophils % (Auto) 63.4 % (38.0-78.0); Platelet Count 280 K/mcL (140-440); RBC 4.47 M/mcL (3.59-5.38); Red Cell Distribution Width 14.3 % (11.5-14.5); WBC 5.5 K/mcL (4.5-11.0)
[2022-08-15 16:11] LABS: ALT/SGPT 19 U/L (<40); AST/SGOT 18 U/L (<32); Albumin 3.7 gm/dL (3.2-5.2); Albumin/Globulin Ratio 1.1 (1.0-2.3); Alkaline Phosphatase 159 U/L (39-117); Bilirubin,Total 0.4 mg/dL (0.1-1.0); Blood Urea Nitrogen 22 mg/dL (8-23); Calcium 9.2 mg/dL (8.6-10.4); Carbon Dioxide 11 mmol/L (22-30); Chloride 90 mmol/L (96-108); Globulin 3.3 gm/dL (2.2-3.7); Glomerular Filtration Rate 40; Glucose 561 mg/dL (70-105)
[2022-08-15] MEDS ORDERED: INSULIN REGULAR, HUMAN 1 UNIT/0.01 ML UNIT IV ONE (16:12)
[2022-08-15] MEDS ORDERED: DEXTROSE 50% 50 ML SYRINGE IV ONE (16:12)
[2022-08-15] MEDS ORDERED: INSULIN REGULAR, HUMAN 50 UNIT in 0.9 % SODIUM CHLORIDE 99.5 ML IV SCH (16:15)
[2022-08-15] MEDS: INSULIN REGULAR, HUMAN 50 UNIT in 0.9 % SODIUM CHLORIDE 99.5 ML IV ONE (16:45)
[2022-08-15 17:19] LABS: ALT/SGPT 18 U/L (<40); AST/SGOT 18 U/L (<32); Albumin 3.8 gm/dL (3.2-5.2); Albumin/Globulin Ratio 1.2 (1.0-2.3); Alkaline Phosphatase 166 U/L (39-117); Bilirubin,Direct < 0.2 mg/dL (0-0.3); Bilirubin,Total 0.3 mg/dL (0.1-1.0); Blood Urea Nitrogen 21 mg/dL (8-23); Calcium 9.4 mg/dL (8.6-10.4); Carbon Dioxide 8 mmol/L (22-30); Chloride 92 mmol/L (96-108); Globulin 3.3 gm/dL (2.2-3.7); Glomerular Filtration Rate 36; Glucose 599 mg/dL (70-105); Lactate Dehydrogenase 247 U/L (135-225); Phosphorous 3.7 mg/dL (2.5-4.5); Triglycerides 509 mg/dL (<150); Uric Acid 11.6 mg/dL (2.5-8.0)
[2022-08-15] MEDS ORDERED: oxyCODONE HCL 5 MG TABLET PO ONE (17:31)
--- NOTE | 2022-08-15 17:31 | Emergency Department Note ---
HPI General Chief complaint: Blood Sugar Problem Stated complaint: BG HI Time Seen by Provider: 08/15/22 15:01 Source: EMS Mode of arrival: EMS Limitations: no limitations History of Present Illness HPI Narrative: 77-year-old female with type 2 diabetes presents with a.m. blood glucose that read high on her glucometer this morning. This typically means her blood glucose is over 600. Her daughter called EMS to bring her to the hospital and they noted that their glucometer also read high. The patient is on Tresiba 25 units a.m. and 20 units p.m. and notes that she stopped taking this about a week ago because her a.m. blood sugars over several days were routinely in the 40s. She has been taking her sliding scale regular insulin per protocol. She notes that this morning she took 30 units prior to coming to the ER. She does endorse significant thirst and polyuria over the last week. She is also endorsing some abdominal pain and states she has "liver cirrhosis." She also carries a history of chronic pancreatitis and is on enzyme supplements. CT imaging from 05/06/2022 notes a T7/T8 compression fracture and she endorses chronic back pain. It also notes she is status post cholecystectomy. She st ates that her back pain and her abdominal pain are chronic but she feels like they are somewhat worse today. She denies F/C/S. She denies melena or hematochezia. Related Data Home Medications Medication Instructions Recorded Confirmed [id number] 40,000 cap PO TID 06/01/21 05/06/22 40,000-126,000-168,000 unit capsule, delay rel (Zenpep) multivit [id number] 186 1 tab PO DAILY 07/15/21 05/06/22 [Hair, Skin and Nails Advanced] trazodone 100 mg tablet 100 mg PO HSP PRN insomnia 08/22/21 05/06/22 acyclovir 400 mg tablet 1 tab PO BID 09/21/21 05/06/22 gabapentin 800 mg tablet 1 tab PO TID 09/21/21 05/06/22 cholecalciferol (vitamin D3) 50 50 mcg PO DAILY 12/04/21 05/06/22 mcg (2,000 unit) capsule (Vitamin D3) zinc 50 mg tablet 50 mg PO DAILY 12/04/21 05/06/22 insulin aspart U-100 100 unit/mL See Protocol subcut ACHS 04/23/22 05/06/22 (3 mL) subcutaneous pen (Novolog Flexpen U-100 Insulin aspart) levothyroxine 100 mcg tablet 1 tab PO QDAY 04/23/22 05/06/22 levothyroxine 25 mcg tablet 1 tab PO QAM 04/23/22 05/06/22 propranolol 10 mg tablet 1 tab PO TID 04/23/22 05/06/22 insulin degludec 100 unit/mL See Rx Instructions .Route .COMPLEX 04/25/2205/06 subcutaneous solution (Tresiba U-100 Insulin) atorvastatin 40 mg tablet 1 tab PO QDAY 05/06/22 05/06/22 duloxetine 30 mg capsule,delayed 1 cap PO QDAY 05/06/22 05/06/22 release Previous Rx's Medication Instructions Recorded hyoscyamine sulfate 0.125 mg 0.125 mg PO Q6H PRN Abdominal 02/19/22 sublingual tablet Discomfort #20 tabs methocarbamol 500 mg tablet 500 mg PO TIDP PRN Muscle Spasm 05/08/22 #30 tabs oxycodone 5 mg tablet 5 mg PO Q4HP PRN Per Pain Protocol 05/08/22 #20 tabs Allergies Allergy/AdvReac Type Severity Reaction Status Date / Time cephalexin [From Keflex] Allergy Intermediate Swelling Verified 08/15/22 14:49 lidocaine Allergy Intermediate Blister Verified 08/15/22 14:49 Penicillins Allergy Mild Rash Verified 08/15/22 14:49 Anistreplase [From Eminase] Allergy Unknown UNKNOWN Verified 08/15/22 14:49 fenugreek Allergy Unknown UNKNOWN Verified 08/15/22 14:49 codeine AdvReac Mild Itching Verified 08/15/22 14:49 Erythromycin Base AdvReac Mild Itching Verified 08/15/22 14:49 Nortriptyline AdvReac Mild Nausea Verified 08/15/22 14:49 promethazine AdvReac Mild Fainting Verified 08/15/22 14:49 trulicity AdvReac Intermediate Other Uncoded 12/04/21 06:40 Review of Systems ROS ROS Narrative: Narrative: All systems ED: reviewed and negative except as stated. [facility] Narrative Patient History Narrative: Narrative: Medical/Surgical/Family History All Active Problems (Updated 08/15/22 @ 18:20 by Emi Romero PA-C) Compression fracture of body of thoracic vertebra (Acute) Pain in rib (Acute) Hyperglycemia due to type 2 diabetes mellitus (Acute) Chronic pain syndrome (Acute) DKA, type 2 (Acute) Hypoglycemia (Acute) DKA (diabetic ketoacidosis) (Acute) Acute hyponatremia (Acute) Acute hyperkalemia (Acute) Acidosis, lactic (Acute) Metabolic acidosis (Acute) Blood in urine (Chronic) Diabetic keto-acidosis (Chronic) Pseudohyponatremia (Chronic) DKA (diabetic ketoacidosis) (Chronic) Hypomagnesemia (Chronic) Generalized weakness (Chronic) Acute dehydration (Chronic) Diabetic ketosis (Chronic) Acute dyspnea (Chronic) Obstructive sleep apnea (Chronic) DKA (diabetic ketoacidosis) (Chronic) Vulvovaginitis due to yeast (Chronic) Sleepwalking (Chronic) REM sleep behavior disorder (Chronic) Hypersomnia (Chronic) Snoring (Chronic) Tremor (Chronic) Neurofibromatosis 2 (Chronic) Trigger finger (Chronic) Sleep disturbance (Chronic) Arthralgia (Chronic) Pancreatitis (Chronic) Macular degeneration (Chronic) Hepatitis A (Chronic) Glaucoma (Chronic) Fibromyalgia (Chronic) DDD (degenerative disc disease), cervical (Chronic) Diabetic retinopathy (Chronic) Opioid dependence (Chronic) Stress (Chronic) Hard of hearing (Chronic) Multiple environmental allergies (Chronic) Fracture of lumbar spine (Chronic) Compression fracture of lumbosacral spine (Chronic) Abdominal pain (Chronic) Chronic pancreatitis (Chronic) Liver mass (Chronic) Cirrhosis of liver (Chronic) Constipation (Chronic) Neuropathy (Chronic) Chronic pain (Chronic) Essential tremor (Chronic) Bimalleolar ankle fracture (Chronic) Chronic bronchitis with acute exacerbation (Chronic) Dehydration (Chronic) Epistaxis (Chronic) Hypoxia (Chronic) Anterior epistaxis (Chronic) Candidiasis of mouth (Chronic) DKA (diabetic ketoacidosis) (Chronic) Conjunctivitis (Chronic) Bronchitis (Chronic) Dehiscence of closure of skin (Chronic) Anemia (Chronic) Elevated liver enzymes (Chronic) 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) Radiculopathy, sacral and sacrococcygeal region (Chronic) Radiculopathy, lumbosacral region (Chronic) Insomnia (Chronic) Levator syndrome (Chronic) Sacrococcygeal pain (Chronic) History of surgery (Chronic) Hypothyroidism (Chronic) Chronic bronchitis (Chronic) 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) Depression (Chronic) Anxiety (Chronic) Hypertension (Chronic) Osteoporosis (Chronic) Rectal pain (Chronic) Low back pain (Chronic) Pain in thoracic spine (Chronic) Age-related osteoporosis with current pathological fracture, vertebra(e), initia l encounter for fracture (Chronic) Medical History Abdominal pain Acute exacerbation of chronic obstructive airways disease Age-related osteoporosis with current pathological fracture, vertebra(e), initial encounter for fracture Anemia Anterior epistaxis Anxiety Arthralgia Bilateral primary osteoarthritis of hip Bimalleolar ankle fracture Blood in urine Bronchitis Candidiasis of mouth Chronic bronchitis with acute exacerbation Chronic pain Chronic pancreatitis Cirrhosis of liver Compression fracture of lumbosacral spine Conjunctivitis Constipation DDD (degenerative disc disease), cervical Dehiscence of closure of skin Dehydration Depression Diabetic retinopathy DKA (diabetic ketoacidosis) Elevated liver enzymes Epistaxis Essential tremor Fibromyalgia Fracture of lumbar spine Glaucoma Hard of hearing Hepatitis A Hyperglycemia due to type 2 diabetes mellitus Hypersomnia Hypertension Hypothyroidism Hypoxia Insomnia Levator syndrome Lipomatosis Liver mass Low back pain Macular degeneration Multiple environmental allergies Neurofibromatosis 2 Neuropathy Obstructive sleep apnea Opioid dependence Osteoporosis Pain in thoracic spine Pancreatitis Radiculopathy, lumbosacral region Radiculopathy, sacral and sacrococcygeal region Rectal pain REM sleep behavior disorder Sacrococcygeal pain Sleep disturbance Sleepwalking Snoring Stress Tremor Trigger finger Surgical History History of appendectomy (~1969) History of arthroplasty of right ankle (~2017) History of cataract surgery (~2003) History of cholecystectomy History of colonoscopy (~06/26/18) History of decompression of median nerve (~2003) History of dilation and curettage History of eye surgery (~2005) Glaucoma History of hand surgery (~2003) Release of trigger finger, right History of left breast biopsy (~2005) History of oophorectomy History of surgery Vertebroplasty T12 w/sed 09/28/19 History of surgery retinopathy laser Stereotactic destruction of lesion using gamma radiation-2004 History of surgery on wrist History of tonsillectomy and adenoidectomy (~1969) Family History Mother Heart disease Fibromyalgia Father Malignant melanoma Malignant tumor of prostate Leukemia Social History Smoking Status: Never smoker Alcohol Intake Frequency: does not drink Substance Use: does not use Exam Narrative Narrative: General: AOx3, NAD, nontoxic appearing. Pleasant and conversant. HEENT: PERRL, EOMI, normocephalic. Dry mucous membranes. Normal facies and normal dentition. Respiratory: Lungs clear to auscultation bilaterally. No respiratory distress. Unlabored breathing. Heart: Regular rate and rhythm, no murmurs/clicks/rubs. Abdomen: Right upper quadrant tenderness, she is non distended, normal bowel tones. No organomegaly. Extremities: Warm and well perfused. No edema. DP 2+ bilaterally. No venous stasis. Neuro: No focal deficits. Cranial nerves II-XII grossly normal. Skin: Warm dry, pale, no rashes or lesions Psych: Normal mood and affect Heme/Lymph: No abnormal bruising General Limitations: no limitations Course Course Course Narrative: 77-year-old female with history of T2DM presents for acute hyperglycemia Reevaluation(s) Reevaluation #1: Obtain basic labs, start IV and give 1 L IV fluids. Reevaluation #2: VBG with pH of 7.18, lactic acid of 3.3, and anion gap is 34 on her CMP. Blood glucose is 599. She has creatinine 1.4, with baseline normal back on 05/14/2022. I did check a serum osmolality which is slightly elevated at 320. LFTs with alk phos 166, lactate dehydrogenase of 247, and GGT of 81. AST and ALT are within normal limits. Bilirubin is also within normal limits. I have initiated DKA protocol Vital Signs Vital signs: Vital Signs Temperature 97.6 F 08/15/22 14:47 Pulse Rate 86 08/15/22 14:47 Respiratory Rate 16 08/15/22 14:47 Blood Pressure 148/60 08/15/22 14:47 Pulse Oximetry (%) 100 08/15/22 14:47 Oxygen Delivery Method 08/15/22 14:47 Temperature 97.6 F 08/15/22 14:47 Pulse Rate 76 08/15/22 17:16 Respiratory Rate 16 08/15/22 17:16 Blood Pressure 120/51 08/15/22 17:16 Pulse Oximetry (%) 95 08/15/22 17:16 Oxygen Delivery Method 08/15/22 14:47 MDM MDM Narrative Medical decision making narrative: DKA Chronic abdominal and back pain DKA protocol has been initiated. We will recheck her VBG and blood glucose at 1800. 10 mg oral oxycodone for abdominal and back pain. I have reached out to Dr. Borges for admission and he has accepted the patient for admission. Lab Data Result diagrams: 08/15/22 15:08 08/15/22 15:08 Labs: Lab Results 08/15/22 08/15/22 08/15/22 Range/Units 14:57 15:08 15:08 WBC 5.5 (4.5-11.0) K/mcL RBC 4.47 (3.59-5.38) M/mcL Hgb 13.2 (11.2-15.7) g/dL Hct 41.8 (34.1-44.9) % MCV 93.5 (80.0-100.0) fL MCH 29.5 (26.0-34.0) pg MCHC 31.6 (31.0-36.0) g/dL RDW 14.3 (11.5-14.5) % Plt Count 280 (140-440) K/mcL MPV 10.2 (8.8-12.5) fL Immature Gran % (Auto) 0.4 (0.0-0.5) % Neut % (Auto) 63.4 (38.0-78.0) % Lymph % (Auto) 29.8 (15.5-49.0) % [place] % (Auto) 4.2 (1.0-12.0) % Eos % (Auto) 1.1 (0.0-7.0) % Baso % (Auto) 1.1 (0.0-2.0) % Lymph # (Auto) 1.63 (1.50-4.80) K/mcL [place] # (Auto) 0.23 (0.10-0.90) K/mcL Eos # (Auto) 0.06 (0.00-0.70) K/mcL Baso # (Auto) 0.06 (0.00-0.30) K/mcL Immature Gran # 0.02 (0.00-0.05) K/mcl Absolute Neutrophils 3.47 (1.80-8.00) K/mcL ABG Methemoglobin (0.4-1.5) % VBG pH (7.32-7.42) U POC VBG pH 7.18 L* (7.32-7.42) VBG pCO2 (41.0-51.0) mmHg POC VBG pCO2 at Temp 31.4 L (41-51) VBG pO2 (25.0-40.0) mmHg POC VBG pO2 25 (25-40) VBG HCO3 (24.0-28.0) mmol/L POC VBG HCO3 11.6 L (24-28) VBG Total CO2 (25.0-29.0) mmol/L POC VBG Total CO2 13.0 L (25-29) VBG O2 Saturation (40.0-70.0) % POC Venous O2 Sat 33.0 L (40-70) VBG Base Excess (-2-3) POC VBG Base Excess -17.0 L (-2-2) VBG Lactic Acid 3.3 H (0.5-2) Carboxyhemoglobin (0.0-1.5) % THgb Total Hemoglobin (12.0-15.0) gm/Dl Sodium 131 L (133-145) mmol/L Potassium 4.3 (3.3-5.1) mmol/L Chloride 90 L (96-108) mmol/L Carbon Dioxide 11 L (22-30) mmol/L Anion Gap 30.0 H (8.0-16.0) BUN 22 (8-23) mg/dL Creatinine 1.3 H (0.6-1.1) mg/dL GFR Calculation 40 Glucose 561 H* (70-105) mg/dL Osmolality (280-300) mOSM/kg Uric Acid (2.5-8.0) mg/dL Calcium 9.2 (8.6-10.4) mg/dL Phosphorus (2.5-4.5) mg/dL Magnesium (1.6-2.5) mg/dL Total Bilirubin 0.4 (0.1-1.0) mg/dL Direct Bilirubin (0-0.3) mg/dL GGT (5-36) U/L AST 18 (<32) U/L ALT 19 (<40) U/L Alkaline Phosphatase 159 H (39-117) U/L Lactate Dehydrogenase (135-225) U/L Total Protein 7.0 (5.9-8.4) gm/dL Albumin 3.7 (3.2-5.2) gm/dL Globulin 3.3 (2.2-3.7) gm/dL Albumin/Globulin Ratio 1.1 (1.0-2.3) Triglycerides (<150) mg/dL 08/15/22 08/15/22 08/15/22 Range/Units 15:08 15:08 17:30 WBC (4.5-11.0) K/mcL RBC (3.59-5.38) M/mcL Hgb (11.2-15.7) g/dL Hct (34.1-44.9) % MCV (80.0-100.0) fL MCH (26.0-34.0) pg MCHC (31.0-36.0) g/dL RDW (11.5-14.5) % Plt Count (140-440) K/mcL MPV (8.8-12.5) fL Immature Gran % (Auto) (0.0-0.5) % Neut % (Auto) (38.0-78.0) % Lymph % (Auto) (15.5-49.0) % [place] % (Auto) (1.0-12.0) % Eos % (Auto) (0.0-7.0) % Baso % (Auto) (0.0-2.0) % Lymph # (Auto) (1.50-4.80) K/mcL [place] # (Auto) (0.10-0.90) K/mcL Eos # (Auto) (0.00-0.70) K/mcL Baso # (Auto) (0.00-0.30) K/mcL Immature Gran # (0.00-0.05) K/mcl Absolute Neutrophils (1.80-8.00) K/mcL ABG Methemoglobin 0.3 L (0.4-1.5) % VBG pH 7.28 L (7.32-7.42) U POC VBG pH (7.32-7.42) VBG pCO2 37.6 L (41.0-51.0) mmHg POC VBG pCO2 at Temp (41-51) VBG pO2 43.7 H (25.0-40.0) mmHg POC VBG pO2 (25-40) VBG HCO3 17.2 L (24.0-28.0) mmol/L POC VBG HCO3 (24-28) VBG Total CO2 18.3 L (25.0-29.0) mmol/L POC VBG Total CO2 (25-29) VBG O2 Saturation 76.4 H (40.0-70.0) % POC Venous O2 Sat (40-70) VBG Base Excess -9 L (-2-3) POC VBG Base Excess (-2-2) VBG Lactic Acid (0.5-2) Carboxyhemoglobin 3.2 H (0.0-1.5) % THgb Total Hemoglobin 13.9 (12.0-15.0) gm/Dl Sodium 134 (133-145) mmol/L Potassium 4.2 (3.3-5.1) mmol/L Chloride 92 L (96-108) mmol/L Carbon Dioxide 8 L* (22-30) mmol/L Anion Gap 34.0 H (8.0-16.0) BUN 21 (8-23) mg/dL Creatinine 1.4 H (0.6-1.1) mg/dL GFR Calculation 36 Glucose 599 H* (70-105) mg/dL Osmolality 320 H (280-300) mOSM/kg Uric Acid 11.6 H (2.5-8.0) mg/dL Calcium 9.4 (8.6-10.4) mg/dL Phosphorus 3.7 (2.5-4.5) mg/dL Magnesium 2.0 (1.6-2.5) mg/dL Total Bilirubin 0.3 (0.1-1.0) mg/dL Direct Bilirubin < 0.2 (0-0.3) mg/dL GGT 81 H (5-36) U/L AST 18 (<32) U/L ALT 18 (<40) U/L Alkaline Phosphatase 166 H (39-117) U/L Lactate Dehydrogenase 247 H (135-225) U/L Total Protein 7.1 (5.9-8.4) gm/dL Albumin 3.8 (3.2-5.2) gm/dL Globulin 3.3 (2.2-3.7) gm/dL Albumin/Globulin Ratio 1.2 (1.0-2.3) Triglycerides 509 H (<150) mg/dL Discharge Plan Patient/Caregiver Discharge Instructions Pt seen by [facility]ER/PA only: Yes Clinical Impression: DKA, type 2 Patient Disposition: Xfer As Inpt ([facility]) Follow up with: Jacque Severino FNP [Primary Care Provider] - Prescriptions: No Action multivit [id number] 186 [Hair, Skin and Nails Advanced] 1 tab PO DAILY trazodone 100 mg tablet 100 mg PO HSP PRN (Reason: insomnia) Zenpep 40,000-126,000- 168,000 unit capsule,delayed release(DR/EC) 40,000 cap PO TID Label Comments: take 1 capsule by mouth three times a day acyclovir 400 mg tablet 1 tab PO BID gabapentin 800 mg tablet 1 tab PO TID zinc 50 mg Tablet 50 mg PO DAILY cholecalciferol (vitamin D3) [Vitamin D3] 50 mcg (2,000 unit) Capsule 50 mcg PO DAILY hyoscyamine sulfate 0.125 mg tablet, sublingual 0.125 mg PO Q6H PRN (Reason: Abdominal Discomfort) Qty: 20 0RF levothyroxine 25 mcg tablet 1 tab PO QAM propranolol 10 mg tablet 1 tab PO TID insulin aspart U-100 [Novolog Flexpen U-100 Insulin] 100 unit/mL (3 mL) insulin pen See Protocol subcut ACHS Protocol: Insulin Sliding Scale, High Condition: HUMALOG/NOVALOG SC SLIDING Dose/Route: SCALE Condition: FSBS < 70 Dose/Route: Give 4 Oz juice, or 15gm oral Instruction: Glucose, or 25ml D50W IV if Dose/Route: unable to take PO. Recheck in Instruction: 15 min and repeat if FSBS < 70 Condition: FSBS 71-140 Dose/Route: NO COVERAGE Condition: FSBS 141-170 Dose/Route: 3 UNITS Condition: FSBS 171-200 Dose/Route: 6 UNITS Condition: FSBS 201-250 Dose/Route: 9 UNITS Condition: FSBS 251-300 Dose/Route: 12 UNITS Condition: FSBS 301-350 Dose/Route: 15 UNITS Condition: FSBS 351-400 Dose/Route: 18 UNITS Condition: FSBS > 400 Dose/Route: 20 UNITS; REPEAT Q2H X2 Instruction: CONTINUE FOLLOWING SLIDING Condition: SCALE; IF STILL > 400; CALL Dose/Route: PHYSICIAN levothyroxine 100 mcg tablet 1 tab PO QDAY Tresiba U-100 Insulin 100 unit/mL solution See Rx Instructions .ROUTE .COMPLEX Rx Instructions: 30 units QAM, 25 units QPM atorvastatin 40 mg tablet 1 tab PO QDAY duloxetine 30 mg capsule,delayed release(DR/EC) 1 cap PO QDAY methocarbamol 500 mg Tablet 500 mg PO TIDP PRN (Reason: Muscle Spasm) Qty: 30 0RF oxycodone 5 mg Tablet 5 mg PO Q4HP PRN (Reason: Per Pain Protocol) Qty: 20 0RF
[2022-08-15 17:52] LABS: ABG Methemoglobin 0.3 % (0.4-1.5); Total Hemoglobin 13.9 gm/Dl (12.0-15.0); VBG Base Excess -9 (-2-3); VBG HCO3 17.2 mmol/L (24.0-28.0); VBG Oxygen Saturation 76.4 % (40.0-70.0); VBG PCO2 37.6 mmHg (41.0-51.0); VBG PH 7.28 U (7.32-7.42); VBG PO2 43.7 mmHg (25.0-40.0); VBG Total CO2 18.3 mmol/L (25.0-29.0)
--- NOTE | 2022-08-15 17:57 | Internal Med History&Physical ---
HPI History of Present Illness Patient information: Note initiated : 08/15/22 at 5:48 pm Service Date, if different from initiated Date: [] Patient: Tennille Castillo a 77 y/o F admitted on for BG HI. Chief Complaint: [] History of present illness: Ms. Castillo is a 77 year old F Presents to the ED with elevated blood glucose. Patient states she is also have some dizziness weakness headache nausea. She is on Tresiba and stopped taking this several weeks ago because her morning blood sugars are in the 40s. She has been taking sliding scale insulin. She complains of polyuria and polydipsia. She has some mild abdominal pain. In the ED she was found to be in DKA and started on insulin drip and IV fluids. pH is 7.18. Blood glucose 599 with a BUN of 21 creatinine 1.4. Bicarb of 8. Lactate elevated 2.3. Elevated triglycerides of 509. She does not recall if she is taking fenofibrate. Review of Systems: Pertinent positives as above. Denies vomiting/chest pain/cough/dyspnea/diarrhea. Remaining 10 point review of system reviewed osbaldo boudreaux [facility] All Active Problems (Updated 08/15/22 @ 18:20 by Emi Romero PA-C) Compression fracture of body of thoracic vertebra (Acute) Pain in rib (Acute) Hyperglycemia due to type 2 diabetes mellitus (Acute) Chronic pain syndrome (Acute) DKA, type 2 (Acute) Hypoglycemia (Acute) DKA (diabetic ketoacidosis) (Acute) Acute hyponatremia (Acute) Acute hyperkalemia (Acute) Acidosis, lactic (Acute) Metabolic acidosis (Acute) Blood in urine (Chronic) Diabetic keto-acidosis (Chronic) Pseudohyponatremia (Chronic) DKA (diabetic ketoacidosis) (Chronic) Hypomagnesemia (Chronic) Generalized weakness (Chronic) Acute dehydration (Chronic) Diabetic ketosis (Chronic) Acute dyspnea (Chronic) Obstructive sleep apnea (Chronic) DKA (diabetic ketoacidosis) (Chronic) Vulvovaginitis due to yeast (Chronic) Sleepwalking (Chronic) REM sleep behavior disorder (Chronic) Hypersomnia (Chronic) Snoring (Chronic) Tremor (Chronic) Neurofibromatosis 2 (Chronic) Trigger finger (Chronic) Sleep disturbance (Chronic) Arthralgia (Chronic) Pancreatitis (Chronic) Macular degeneration (Chronic) Hepatitis A (Chronic) Glaucoma (Chronic) Fibromyalgia (Chronic) DDD (degenerative disc disease), cervical (Chronic) Diabetic retinopathy (Chronic) Opioid dependence (Chronic) Stress (Chronic) Hard of hearing (Chronic) Multiple environmental allergies (Chronic) Fracture of lumbar spine (Chronic) Compression fracture of lumbosacral spine (Chronic) Abdominal pain (Chronic) Chronic pancreatitis (Chronic) Liver mass (Chronic) Cirrhosis of liver (Chronic) Constipation (Chronic) Neuropathy (Chronic) Chronic pain (Chronic) Essential tremor (Chronic) Bimalleolar ankle fracture (Chronic) Chronic bronchitis with acute exacerbation (Chronic) Dehydration (Chronic) Epistaxis (Chronic) Hypoxia (Chronic) Anterior epistaxis (Chronic) Candidiasis of mouth (Chronic) DKA (diabetic ketoacidosis) (Chronic) Conjunctivitis (Chronic) Bronchitis (Chronic) Dehiscence of closure of skin (Chronic) Anemia (Chronic) Elevated liver enzymes (Chronic) 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) Radiculopathy, sacral and sacrococcygeal region (Chronic) Radiculopathy, lumbosacral region (Chronic) Insomnia (Chronic) Levator syndrome (Chronic) Sacrococcygeal pain (Chronic) History of surgery (Chronic) Hypothyroidism (Chronic) Chronic bronchitis (Chronic) 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) Depression (Chronic) Anxiety (Chronic) Hypertension (Chronic) Osteoporosis (Chronic) Rectal pain (Chronic) Low back pain (Chronic) Pain in thoracic spine (Chronic) Age-related osteoporosis with current pathological fracture, vertebra(e), initial encounter for fracture (Chronic) Medical History Abdominal pain Acute exacerbation of chronic obstructive airways disease Age-related osteoporosis with current pathological fracture, vertebra(e), initial encounter for fracture Anemia Anterior epistaxis Anxiety Arthralgia Bilateral primary osteoarthritis of hip Bimalleolar ankle fracture Blood in urine Bronchitis Candidiasis of mouth Chronic bronchitis with acute exacerbation Chronic pain Chronic pancreatitis Cirrhosis of liver Compression fracture of lumbosacral spine Conjunctivitis Constipation DDD (degenerative disc disease), cervical Dehiscence of closure of skin Dehydration Depression Diabetic retinopathy DKA (diabetic ketoacidosis) Elevated liver enzymes Epistaxis Essential tremor Fibromyalgia Fracture of lumbar spine Glaucoma Hard of hearing Hepatitis A Hyperglycemia due to type 2 diabetes mellitus Hypersomnia Hypertension Hypothyroidism Hypoxia Insomnia Levator syndrome Lipomatosis Liver mass Low back pain Macular degeneration Multiple environmental allergies Neurofibromatosis 2 Neuropathy Obstructive sleep apnea Opioid dependence Osteoporosis Pain in thoracic spine Pancreatitis Radiculopathy, lumbosacral region Radiculopathy, sacral and sacrococcygeal region Rectal pain REM sleep behavior disorder Sacrococcygeal pain Sleep disturbance Sleepwalking Snoring Stress Tremor Trigger finger Surgical History History of appendectomy (~1969) History of arthroplasty of right ankle (~2017) History of cataract surgery (~2003) History of cholecystectomy History of colonoscopy (~06/26/18) History of decompression of median nerve (~2003) History of dilation and curettage History of eye surgery (~2005) Glaucoma History of hand surgery (~2003) Release of trigger finger, right History of left breast biopsy (~2005) History of oophorectomy History of surgery Vertebroplasty T12 w/sed 09/28/19 History of surgery retinopathy laser Stereotactic destruction of lesion using gamma radiation-2004 History of surgery on wrist History of tonsillectomy and adenoidectomy (~1969) Family History Mother Heart disease Fibromyalgia Father Malignant melanoma Malignant tumor of prostate Leukemia Social History (Updated 02/22/22 @ 15:40 by Gi Vernon) lives independently: Yes marital status: education level: college occupational status: retired pets and animals: No other: 2 children physical activity: none smoking status: Never smoker alcohol intake frequency: does not drink substance use type: does not use seatbelt use: always working smoke detector in home: Yes carbon monox detector in home: Yes MEDS/ALLERGIES Home Medications and Allergies Home Medications Medication Instructions Recorded Confirmed Type [id number] 40,000 cap PO TID 06/01/21 05/06/22 History 40,000-126,000-168,000 unit capsule, delay rel (Zenpep) multivit [id number] 186 1 tab PO DAILY 07/15/21 05/06/22 History [Hair, Skin and Nails Advanced] trazodone 100 mg tablet 100 mg PO HSP PRN insomnia 08/22/21 05/06/22 History acyclovir 400 mg tablet 1 tab PO BID 09/21/21 05/06/22 History gabapentin 800 mg tablet 1 tab PO TID 09/21/21 05/06/22 History cholecalciferol (vitamin D3) 50 50 mcg PO DAILY 12/04/21 05/06/22 History mcg (2,000 unit) capsule (Vitamin D3) zinc 50 mg tablet 50 mg PO DAILY 12/04/21 05/06/22 History hyoscyamine sulfate 0.125 mg 0.125 mg PO Q6H PRN Abdominal 02/19/22 05/06/22 Rx sublingual tablet Discomfort #20 tabs insulin aspart U-100 100 unit/mL See Protocol subcut ACHS 04/23/22 05/06/22 History (3 mL) subcutaneous pen (Novolog Flexpen U-100 Insulin aspart) levothyroxine 100 mcg tablet 1 tab PO QDAY 04/23/22 05/06/22 History levothyroxine 25 mcg tablet 1 tab PO QAM 04/23/22 05/06/22 History propranolol 10 mg tablet 1 tab PO TID 04/23/22 05/06/22 History insulin degludec 100 unit/mL See Rx Instructions .Route .COMPLEX 04/25/22 05/06/22 History subcutaneous solution (Tresiba U-100 Insulin) atorvastatin 40 mg tablet 1 tab PO QDAY 05/06/22 05/06/22 History duloxetine 30 mg capsule,delayed 1 cap PO QDAY 05/06/22 05/06/22 History release methocarbamol 500 mg tablet 500 mg PO TIDP PRN Muscle Spasm 05/08/22 Rx #30 tabs oxycodone 5 mg tablet 5 mg PO Q4HP PRN Per Pain Protocol 05/08/22 Rx #20 tabs Allergies Allergy/AdvReac Type Severity Reaction Status Date / Time cephalexin [From Keflex] Allergy Intermediate Swelling Verified 08/15/22 14:49 lidocaine Allergy Intermediate Blister Verified 08/15/22 14:49 Penicillins Allergy Mild Rash Verified 08/15/22 14:49 Anistreplase [From Eminase] Allergy Unknown UNKNOWN Verified 08/15/22 14:49 fenugreek Allergy Unknown UNKNOWN Verified 08/15/22 14:49 codeine AdvReac Mild Itching Verified 08/15/22 14:49 Erythromycin Base AdvReac Mild Itching Verified 08/15/22 14:49 Nortriptyline AdvReac Mild Nausea Verified 08/15/22 14:49 promethazine AdvReac Mild Fainting Verified 08/15/22 14:49 trulicity AdvReac Intermediate Other Uncoded 12/04/21 06:40 EXAM Constitutional Vitals: Temp Pulse Resp BP Pulse Ox O2 Del Method 97.6 F 76 16 120/51 95 08/15/22 14:47 08/15/22 17:16 08/15/22 17:16 08/15/22 17:16 08/15/22 17:16 08/15/22 14:47 DATA Data Completed and Pending Labs: Labs from last 24 hours 08/15/22 08/15/22 08/15/22 17:30 15:08 15:08 WBC RBC Hgb Hct MCV MCH MCHC RDW Plt Count MPV Immature Gran % (Auto) Neut % (Auto) Lymph % (Auto) [place] % (Auto) Eos % (Auto) Baso % (Auto) Lymph # (Auto) [place] # (Auto) Eos # (Auto) Baso # (Auto) Immature Gran # Absolute Neutrophils ABG Methemoglobin Pending VBG pH Pending POC VBG pH VBG pCO2 Pending POC VBG pCO2 at Temp VBG pO2 Pending POC VBG pO2 VBG HCO3 Pending POC VBG HCO3 VBG Total CO2 Pending POC VBG Total CO2 VBG O2 Saturation Pending POC Venous O2 Sat VBG Base Excess Pending POC VBG Base Excess VBG Lactic Acid Carboxyhemoglobin Pending Total Hemoglobin Pending Sodium 134 Potassium 4.2 Chloride 92 L Carbon Dioxide 8 L* Anion Gap 34.0 H BUN 21 Creatinine 1.4 H GFR Calculation 36 Glucose 599 H* Osmolality 320 H Uric Acid 11.6 H Calcium 9.4 Phosphorus 3.7 Magnesium 2.0 Total Bilirubin 0.3 Direct Bilirubin < 0.2 GGT 81 H AST 18 ALT 18 Alkaline Phosphatase 166 H Lactate Dehydrogenase 247 H Total Protein 7.1 Albumin 3.8 Globulin 3.3 Albumin/Globulin Ratio 1.2 Triglycerides 509 H 08/15/22 08/15/22 08/15/22 15:08 15:08 14:57 WBC 5.5 RBC 4.47 Hgb 13.2 Hct 41.8 MCV 93.5 MCH 29.5 MCHC 31.6 RDW 14.3 Plt Count 280 MPV 10.2 Immature Gran % (Auto) 0.4 Neut % (Auto) 63.4 Lymph % (Auto) 29.8 [place] % (Auto) 4.2 Eos % (Auto) 1.1 Baso % (Auto) 1.1 Lymph # (Auto) 1.63 [place] # (Auto) 0.23 Eos # (Auto) 0.06 Baso # (Auto) 0.06 Immature Gran # 0.02 Absolute Neutrophils 3.47 ABG Methemoglobin VBG pH POC VBG pH 7.18 L* VBG pCO2 POC VBG pCO2 at Temp 31.4 L VBG pO2 POC VBG pO2 25 VBG HCO3 POC VBG HCO3 11.6 L VBG Total CO2 POC VBG Total CO2 13.0 L VBG O2 Saturation POC Venous O2 Sat 33.0 L VBG Base Excess POC VBG Base Excess -17.0 L VBG Lactic Acid 3.3 H Carboxyhemoglobin Total Hemoglobin Sodium 131 L Potassium 4.3 Chloride 90 L Carbon Dioxide 11 L Anion Gap 30.0 H BUN 22 Creatinine 1.3 H GFR Calculation 40 Glucose 561 H* Osmolality Uric Acid Calcium 9.2 Phosphorus Magnesium Total Bilirubin 0.4 Direct Bilirubin GGT AST 18 ALT 19 Alkaline Phosphatase 159 H Lactate Dehydrogenase Total Protein 7.0 Albumin 3.7 Globulin 3.3 Albumin/Globulin Ratio 1.1 Triglycerides A/P Narrative A/P Narrative: A: #DKA/HHS: -stopped tresiba b/c morning BG was in 40's -A1c #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: #Metabolic acidosis with lactic acidosis: #SUDARSHAN w/volume depletion: 2/2 above #CAD: #Hypothyroidism: #Chronic pancreatitis: #Hypertriglyceridemia: #chronically elevated LFT's #Essential tremor: #chr back pain: Plan: -insulin gtt -adjust home tresiba upon d/c and reminder of qhs snack -IVF -f/u and Replace electrolytes -uop, i/o -a1c -Continue home duloxetine/gabapentin/levothyroxine -cont fenofibrate -Continue her home pancreatic enzyme supplements -PT/OT -CM for SNF placement -Home medication reconciliation -DVT prophylaxis: lovenox CODE STATUS: DNR Time Spent With Patient Time: Total time spent is greater than 50% in coordination of care (as documented) at patient's floor/unit and/or counseling patient: Critical Care Time: Yes Total Critical Care Time: 70
[2022-08-15] MEDS: DEXTROSE 5%-1/2NS 1,000 ML IV SCH ×2 (18:16→22:40)
[2022-08-15 18:54] LABS: Beta Hydroxybutyrate 8.68 mmol/L (<0.27)
[2022-08-15 19:02] LABS: Albumin 3.9 gm/dL (3.2-5.2); Blood Urea Nitrogen 22 mg/dL (8-23); Calcium 9.4 mg/dL (8.6-10.4); Carbon Dioxide 13 mmol/L (22-30); Chloride 92 mmol/L (96-108); Glomerular Filtration Rate 36; Glucose 587 mg/dL (70-105); Phosphorous 3.9 mg/dL (2.5-4.5)
[2022-08-15] MEDS ORDERED: POTASSIUM CHLORIDE 20 MEQ TABLET PO PRN ×2 (19:55)
[2022-08-15] MEDS ORDERED: POLYETHYLENE GLYCOL 3350 17 GM PACKET PO PRN (19:55)
[2022-08-15] MEDS ORDERED: POTASSIUM CHLORIDE 40 MEQ in DEXTROSE 5% IN WATER 500 ML IV PRN (19:55)
[2022-08-15] MEDS ORDERED: ONDANSETRON 4 MG/2 ML VIAL IV PRN (19:55)
[2022-08-15] MEDS ORDERED: SENNOSIDES 1 TABLET PO PRN (19:55)
[2022-08-15] MEDS ORDERED: MAGNESIUM SULFATE 2 GM/50 ML BAG IV PRN (19:55)
[2022-08-15] MEDS ORDERED: IPRATROPIUM/ALBUTEROL 3 ML AMPUL.NEB NEB PRN (19:55)
[2022-08-15] MEDS ORDERED: ACETAMINOPHEN 325 MG TABLET PO PRN (19:55)
[2022-08-15] MEDS: 0.9 % SODIUM CHLORIDE 1,000 ML IV SCH (20:54)
[2022-08-15] MEDS: 0.9 % SODIUM CHLORIDE 10 ML SYRINGE IV SCH (21:45)
[2022-08-15] MEDS: PROPRANOLOL 10 MG TABLET PO SCH (22:26)
[2022-08-15] MEDS: HYOSCYAMINE SULFATE 0.125 MG TABLET PO PRN (22:26)
[2022-08-15] MEDS: DOCUSATE SODIUM 100 MG CAPSULE PO SCH (22:26)
[2022-08-15] MEDS: traZODone HCL 100 MG TABLET PO PRN (22:26)
[2022-08-16 01:17] LABS: Hemoglobin A1C 11.4 % Hgb (4.0-6.0)
[2022-08-16] MEDS: DEXTROSE 5%-1/2NS 1,000 ML IV SCH ×2 (02:19→06:12)
[2022-08-16] MEDS: oxyCODONE HCL 5 MG TABLET PO PRN ×3 (02:19→21:17)
[2022-08-16] MEDS: 0.9 % SODIUM CHLORIDE 1,000 ML IV SCH ×2 (03:35→04:19)
[2022-08-16 04:22] LABS: Appearance,Urine CLEAR (Clear); Bilirubin,Urine Negative (Negative); Color,Urine LT. YELLOW; Culture Indicated,Urine yes; Glucose,Urine (UA) 500 mg/dL (Negative); Ketones,Urine 40 mg/dL (Negative); Leukocyte Esterase,Urine TRACE /uL (Negative); Nitrate,Urine NEGATIVE (Negative); Protein,Urine NEGATIVE (Negative); Specific Gravity,Urine <= 1.005 (1.000-1.035); Urine Blood NEGATIVE ery/mcL (Negative); Urine Hyaline Cast 3 /lph (0-2); Urine RBC 0 /hpf (0-3); Urine Squamous Epithelial Cell 0 /hpf (0-4); Urine WBC 10 /hpf (0-4); Urobilinogen,Urine Normal
[2022-08-16] MEDS: 0.9 % SODIUM CHLORIDE 10 ML SYRINGE IV SCH ×4 (06:10→21:29)
[2022-08-16 06:43] LABS: ABG Methemoglobin 0.1 % (0.4-1.5); VBG Base Excess -4 (-2-3); VBG HCO3 20.6 mmol/L (24.0-28.0); VBG Oxygen Saturation 93.2 % (40.0-70.0); VBG PCO2 35.7 mmHg (41.0-51.0); VBG PH 7.38 U (7.32-7.42); VBG PO2 140.1 mmHg (25.0-40.0); VBG Total CO2 21.7 mmol/L (25.0-29.0)
[2022-08-16 06:49] LABS: Basophils # (Auto) 0.04 K/mcL (0.00-0.30); Basophils % (Auto) 0.8 % (0.0-2.0); Eosinophils # (Auto) 0.24 K/mcL (0.00-0.70); Eosinophils % (Auto) 4.8 % (0.0-7.0); Hematocrit 32.2 % (34.1-44.9); Hemoglobin 10.6 g/dL (11.2-15.7); Lymphocytes # (Auto) 2.23 K/mcL (1.50-4.80); Lymphocytes % (Auto) 44.6 % (15.5-49.0); Mean Cell Volume 89.9 fL (80.0-100.0); Mean Corpuscular HGB Conc 32.9 g/dL (31.0-36.0); Mean Platelet Volume 9.4 fL (8.8-12.5); Monocytes # (Auto) 0.29 K/mcL (0.10-0.90); Monocytes % (Auto) 5.8 % (1.0-12.0); Neutrophils % (Auto) 43.8 % (38.0-78.0); Platelet Count 196 K/mcL (140-440); RBC 3.58 M/mcL (3.59-5.38); Red Cell Distribution Width 14.2 % (11.5-14.5)
[2022-08-16] MEDS: LEVOTHYROXINE 125 MCG TABLET PO SCH (07:26)
[2022-08-16 07:27] LABS: ALT/SGPT 13 U/L (<40); AST/SGOT 17 U/L (<32); Albumin/Globulin Ratio 1.3 (1.0-2.3); Alkaline Phosphatase 119 U/L (39-117); Bilirubin,Direct < 0.2 mg/dL (0-0.3); Bilirubin,Total 0.3 mg/dL (0.1-1.0); Blood Urea Nitrogen 11 mg/dL (8-23); Calcium 8.3 mg/dL (8.6-10.4); Carbon Dioxide 20 mmol/L (22-30); Chloride 103 mmol/L (96-108); Globulin 2.3 gm/dL (2.2-3.7); Glomerular Filtration Rate 71; Glucose 177 mg/dL (70-105); Lactate Dehydrogenase 173 U/L (135-225); Phosphorous 1.7 mg/dL (2.5-4.5); Triglycerides 149 mg/dL (<150); Uric Acid 9.3 mg/dL (2.5-8.0)
[2022-08-16] MEDS ORDERED: 0.9 % SODIUM CHLORIDE 250 ML IV SCH (07:45)
[2022-08-16] MEDS ORDERED: INSULIN REGULAR, HUMAN 50 UNIT in 0.9 % SODIUM CHLORIDE 99.5 ML IV SCH (07:45)
[2022-08-16] MEDS ORDERED: DEXTROSE 5%-NS 1,000 ML IV SCH (07:45)
[2022-08-16] MEDS ORDERED: DEXTROSE 50% 50 ML VIAL IV PRN (08:22)
[2022-08-16] MEDS ORDERED: DEXTROSE 31 GM ORAL.SUSP PO PRN (08:22)
--- NOTE | 2022-08-16 08:23 | Internal Med Progress Note ---
SUBJECTIVE Subjective Patient information: Note initiated : 08/16/22 at 8:16 am Service Date, if different from initiated Date: [] Patient: Tennille Castillo a 77 y/o F admitted on 08/15/22 for BG HI. Chief Complaint: [] Interval history: History of present illness: Ms. Castillo is a 77 year old F Presents to the ED with elevated blood glucose. Patient states she is also have some dizziness weakness headache nausea. She is on Tresiba and stopped taking this several weeks ago because her morning blood sugars are in the 40s. She has been taking sliding scale insulin. She complains of polyuria and polydipsia. She has some mild abdominal pain. In the ED she was found to be in DKA and started on insulin drip and IV fluids. pH is 7.18. Blood glucose 599 with a BUN of 21 creatinine 1.4. Bicarb of 8. Lactate elevated 2.3. Elevated triglycerides of 509. She does not recall if she is taking fenofibrate. 08/16 Patient complains of a headache but otherwise is feeling better. Transition off insulin drip to subcu insulin and titrate as needed. Acidosis improved. Hypokalemia. Acidosis present but improving. Hypophosphatemia. Review of Systems: denies fever/chills/nausea/vomiting/chest or abdominal pain/cough/dyspnea/diarrhea. Otherwise see above. Constitutional Vitals: Vital Signs Temp Pulse Resp BP Pulse Ox O2 Del Method 97.4 F 58 L 14 119/54 96 08/16/22 03:32 08/16/22 05:01 08/16/22 05:31 08/16/22 04:01 08/16/22 05:31 08/16/22 02:00 Period Temp Pulse Resp BP Sys/Rosario Pulse Ox O2 Del Method O2 Flow Rate Last 24 Hr 97.4 F-98.3 F 58-86 10-17 99-153/37-97 91-100 Room Air-Room Air Intake and Output 08/15/22 08/16/22 08/16/22 19:59 03:59 11:59 Intake Total 1004 2104 1825 Output Total 0 1200 Balance 3203 146 7396 Weight 68.492 kg 65.317 kg Intake & Output: Intake & Output 08/15/22 08/16/22 08/16/22 19:59 03:59 11:59 Intake Total 1004 2104 1825 Output Total 0 1200 Balance 8984 663 2982 Weight 68.492 kg 65.317 kg Intake: IV 1004 1924 1375 Sodium Chloride 0.9% 1,000 ml @ 1000 Wide Open IV BOLUS ONE Rx#: [id number] Dextrose 5%-1/2Ns IV Solution 1 1912 1350 ,000 ml @ 250 mls/hr IV .Q4H PEG Rx#:[id number] HumuLIN R 50 UNIT In Sodium 4 11 25 Chloride 0.9% 99.5 ml @ 3 UNIT/ HR 6 mls/hr IV DUR PEG Rx#: [id number] Oral 0 180 450 Output: Void Amount 0 1200 Other: Meal 4 cracker packs since admit Percent of Meal Consumed 100% Urine Appearance Cloudy Sediment Urine Color Dark Yellow Urine Odor Normal Exam: General: Alert, Awake, No acute Distress Eyes/N/T: EOMI, Head/Neck: neck supple, CV: RRR, 3/6SM, Pulm: Clear b/l, no wheezing/rhonchi/rales Abd: soft, nontender, +BS x4 Ext: no clubbing/cyanosis/edema Neuro: Alert, no focal deficits, moves all extremities, Skin: warm/dry OBJ DATA Labs CBC & Chem 7: 08/16/22 06:16 08/16/22 06:16 Labs: Abnormal Lab Results 08/16/22 08/16/22 08/16/22 06:17 06:16 06:16 RBC 3.58 L Hgb 10.6 L Hct 32.2 L ABG Methemoglobin 0.1 L VBG pH POC VBG pH VBG pCO2 35.7 L POC VBG pCO2 at Temp VBG pO2 140.1 H VBG HCO3 20.6 L POC VBG HCO3 VBG Total CO2 21.7 L POC VBG Total CO2 VBG O2 Saturation 93.2 H POC Venous O2 Sat VBG Base Excess -4 L POC VBG Base Excess VBG Lactic Acid Carboxyhemoglobin 5.2 H Sodium Potassium 3.0 L Chloride Carbon Dioxide 20 L Anion Gap Creatinine Glucose 177 H Hemoglobin A1c Osmolality Uric Acid 9.3 H Calcium 8.3 L Phosphorus 1.7 L GGT 62 H Alkaline Phosphatase 119 H Lactate Dehydrogenase Total Protein 5.3 L Albumin 3.0 L Triglycerides Beta-Hydroxybutyrate Urine Glucose (UA) Urine Ketones Ur Leukocyte Esterase Urine WBC Hyaline Casts 08/15/22 08/15/22 08/15/22 17:30 15:08 15:08 RBC Hgb Hct ABG Methemoglobin 0.3 L VBG pH 7.28 L POC VBG pH VBG pCO2 37.6 L POC VBG pCO2 at Temp VBG pO2 43.7 H VBG HCO3 17.2 L POC VBG HCO3 VBG Total CO2 18.3 L POC VBG Total CO2 VBG O2 Saturation 76.4 H POC Venous O2 Sat VBG Base Excess -9 L POC VBG Base Excess VBG Lactic Acid Carboxyhemoglobin 3.2 H Sodium Potassium Chloride 92 L 92 L Carbon Dioxide 13 L 8 L* Anion Gap 29.0 H 34.0 H Creatinine 1.4 H 1.4 H Glucose 587 H* 599 H* Hemoglobin A1c Osmolality Uric Acid 11.6 H Calcium Phosphorus GGT 81 H Alkaline Phosphatase 166 H Lactate Dehydrogenase 247 H Total Protein Albumin Triglycerides 509 H Beta-Hydroxybutyrate 8.68 H Urine Glucose (UA) Urine Ketones Ur Leukocyte Esterase Urine WBC Hyaline Casts 08/15/22 08/15/22 08/15/22 15:08 15:08 15:05 RBC Hgb Hct ABG Methemoglobin VBG pH POC VBG pH VBG pCO2 POC VBG pCO2 at Temp VBG pO2 VBG HCO3 POC VBG HCO3 VBG Total CO2 POC VBG Total CO2 VBG O2 Saturation POC Venous O2 Sat VBG Base Excess POC VBG Base Excess VBG Lactic Acid Carboxyhemoglobin Sodium 131 L Potassium Chloride 90 L Carbon Dioxide 11 L Anion Gap 30.0 H Creatinine 1.3 H Glucose 561 H* Hemoglobin A1c 11.4 H Osmolality 320 H Uric Acid Calcium Phosphorus GGT Alkaline Phosphatase 159 H Lactate Dehydrogenase Total Protein Albumin Triglycerides Beta-Hydroxybutyrate Urine Glucose (UA) Urine Ketones Ur Leukocyte Esterase Urine WBC Hyaline Casts 08/15/22 08/15/22 14:57 03:15 RBC Hgb Hct ABG Methemoglobin VBG pH POC VBG pH 7.18 L* VBG pCO2 POC VBG pCO2 at Temp 31.4 L VBG pO2 VBG HCO3 POC VBG HCO3 11.6 L VBG Total CO2 POC VBG Total CO2 13.0 L VBG O2 Saturation POC Venous O2 Sat 33.0 L VBG Base Excess POC VBG Base Excess -17.0 L VBG Lactic Acid 3.3 H Carboxyhemoglobin Sodium Potassium Chloride Carbon Dioxide Anion Gap Creatinine Glucose Hemoglobin A1c Osmolality Uric Acid Calcium Phosphorus GGT Alkaline Phosphatase Lactate Dehydrogenase Total Protein Albumin Triglycerides Beta-Hydroxybutyrate Urine Glucose (UA) 500 A Urine Ketones 40 A Ur Leukocyte Esterase Trace A Urine WBC 10 H Hyaline Casts 3 H Meds: Medications Acetaminophen (Acetaminophen 325 Mg Tablet) 650 mg PO Q6HP PRN; Protocol PRN Reason: Per Pain Protocol/Fever > 101 Albuterol/Ipratropium (Ipratropium/Albuterol 3 Ml Ampul.Neb) 3 ml NEB Q4HP PRN PRN Reason: Shortness Of Breath Lipase/Protease/Amylase (Lipase/Protease/Amylase 1 Cap Capsule) 1 cap PO TIDCC PEG Atorvastatin Calcium (Atorvastatin 40 Mg Tablet) 40 mg PO QDAY [facility] Diagnostic Test (Pha) (Accu-Chek 1 Each Strip) 1 each FS Q1 PEG Last Admin: 08/16/22 08:08 Dose: 1 each Docusate Sodium (Docusate Sodium 100 Mg Capsule) 100 mg PO BID [facility] Last Admin: 08/15/22 22:26 Dose: 100 mg Duloxetine HCl (Duloxetine 30 Mg Capsule) 30 mg PO QDAY [facility] Enoxaparin Sodium (Enoxaparin 40 Mg/0.4 Ml Syringe) 40 mg SQ DAILY [facility] Gabapentin (Gabapentin 400 Mg Capsule) 800 mg PO TID PEG Hyoscyamine (Hyoscyamine Sulfate 0.125 Mg Tablet) 0.125 mg PO Q6HP PRN PRN Reason: Abdominal Discomfort Last Admin: 08/15/22 22:26 Dose: 0.125 mg Potassium Chloride 40 meq/ (Dextrose) 520 mls @ 130 mls/hr IV UD PRN PRN Reason: Potassium < 3 Magnesium Sulfate (Magnesium Sulfate) 2 gm in 50 mls @ 50 mls/hr IV UD PRN PRN Reason: Magnesium </= 1.6 Insulin Human Regular 50 unit/ (Sodium Chloride) 100 mls @ 6 mls/hr IV DUR [facility]; Protocol Last Titration: 08/16/22 08:09 Dose: 2 unit/hr, 4 mls/hr Dextrose/Sodium Chloride (Dextrose 5%-Ns Iv Solution) 1,000 mls @ 125 mls/hr IV .Q8H PEG Last Admin: 08/16/22 07:41 Dose: 125 mls/hr Sodium Chloride (Sodium Chloride 0.9%) 250 mls @ 20 mls/hr IV .[id number] [facility] Last Admin: 08/16/22 07:41 Dose: 20 mls/hr Levothyroxine Sodium (Levothyroxine 125 Mcg Tablet) 125 mcg PO QAMAC [facility] Last Admin: 08/16/22 07:26 Dose: 125 mcg Methocarbamol (Methocarbamol 500 Mg Tablet) 500 mg PO TIDP PRN PRN Reason: Muscle Spasm Ondansetron HCl (Ondansetron 4 Mg/2 Ml Vial) 4 mg IV Q4HP PRN PRN Reason: Nausea And Vomiting Oxycodone HCl (Oxycodone Hcl 5 Mg Tablet) 5 mg PO Q4HP PRN; Protocol PRN Reason: Per Pain Protocol Last Admin: 08/16/22 07:27 Dose: 5 mg Polyethylene Glycol (Polyethylene Glycol 3350 17 Gm Packet) 17 gm PO DAILYP PRN PRN Reason: Constipation Potassium Chloride (Potassium Chloride 20 Meq Tablet) 40 meq PO UD PRN PRN Reason: Potssium is 3-3.5 Potassium Chloride (Potassium Chloride 20 Meq Tablet) 40 meq PO UD PRN PRN Reason: Potassium < 3 Propranolol HCl (Propranolol 10 Mg Tablet) 10 mg PO TID [facility] Last Admin: 08/15/22 22:26 Dose: 10 mg Senna (Sennosides 1 Tablet) 2 tab PO DAILYP PRN PRN Reason: Constipation Sodium Chloride (0.9 % Sodium Chloride 10 Ml Syringe) 10 ml IV Q8 [facility] Last Admin: 08/16/22 06:10 Dose: Not Given Trazodone HCl (Trazodone Hcl 100 Mg Tablet) 100 mg PO HSP PRN PRN Reason: insomnia Last Admin: 08/15/22 22:26 Dose: 100 mg ABG Interpretation ABG results: 08/15/22 08/16/22 17:30 06:17 ABG Methemoglobin 0.3 L 0.1 L VBG pH 7.28 L 7.38 VBG pCO2 37.6 L 35.7 L VBG pO2 43.7 H 140.1 H VBG HCO3 17.2 L 20.6 L VBG Total CO2 18.3 L 21.7 L VBG O2 Saturation 76.4 H 93.2 H VBG Base Excess -9 L -4 L A/P Narrative A/P Narrative: 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: #Metabolic acidosis with lactic acidosis(improved): #SUDARSHAN w/volume depletion: 2/2 above -improving #Hypokalemia/hypophosphatemia: #CAD: #Hypothyroidism: #Chronic pancreatitis: #Hypertriglyceridemia: #chronically elevated LFT's #Essential tremor: #chr back pain: Plan: -insulin gtt to home tresiba at lower dose and titrate -QHS snack -adjust home tresiba upon d/c and reminder of qhs snack -IVF d/c, f/u lactate -f/u and Replace electrolytes -uop, i/o -Continue home duloxetine/gabapentin/levothyroxine -Continue her home pancreatic enzyme supplements -PT/OT -CM for SNF placement -DVT prophylaxis: lovenox CODE STATUS: DNR Time Spent With Patient Time: Total time spent is greater than 50% in coordination of care (as documented) at patient's floor/unit and/or counseling patient: Total time spent with greater than 50% in coordination of care (as documented) at patient's floor/unit and/or counseling patient:: 35 - 50 minutes
[2022-08-16] MEDS: DULoxetine 30 MG CAPSULE PO SCH (08:57)
[2022-08-16] MEDS: GABAPENTIN 400 MG CAPSULE PO SCH ×3 (08:57→21:17)
[2022-08-16] MEDS: ATORVASTATIN 40 MG TABLET PO SCH (08:57)
[2022-08-16] MEDS: DOCUSATE SODIUM 100 MG CAPSULE PO SCH ×2 (08:57→21:05)
[2022-08-16] MEDS: PROPRANOLOL 10 MG TABLET PO SCH ×3 (08:57→21:17)
[2022-08-16] MEDS: ENOXAPARIN 40 MG/0.4 ML SYRINGE SQ SCH (08:58)
[2022-08-16] MEDS: NEUTRA PHOS 1 PACKET PO SCH ×2 (08:58→21:17)
[2022-08-16] MEDS ORDERED: LEVOTHYROXINE 100 MCG TABLET PO SCH (09:00)
[2022-08-16] MEDS: LIPASE/PROTEASE/AMYLASE 1 CAP CAPSULE PO SCH ×3 (09:39→16:47)
[2022-08-16] MEDS: INSULIN LISPRO 1 UNIT/0.01 ML UNIT SQ SCH ×5 (10:10→21:22)
[2022-08-16] MEDS: INSULIN GLARGINE, HUMAN 1 UNIT/0.01 ML SQ SCH (10:33)
--- NOTE | 2022-08-16 15:54 | Discharge Summary ---
Discharge Provider Provider IMPORTANT FOLLOW-UP INFORMATION FOR PCP: Patient information: Note initiated : 08/16/22 at 3:52 pm Service Date, if different from initiated Date: [] Patient: Tennille Castillo a 77 y/o F admitted on 08/15/22 for BG HI. Chief Complaint: [] Date of admission: 08/15/22 19:50 Discharge date: 08/17/22 Primary care physician: OSKAR Carvajal Consults: 08/15/22 Consult to Physician [CONS] Stat Comment: Consulting Provider: Jef Borges Reason For Exam: Physician to Consult COURSE Hospital Course Hospital course: Interval history: History of present illness: Ms. Castillo is a 77 year old F Presents to the ED with elevated blood glucose. Patient states she is also have some dizziness weakness headache nausea. She is on Tresiba and stopped taking this several weeks ago because her morning blood sugars are in the 40s. She has been taking sliding scale insulin. She complains of polyuria and polydipsia. She has some mild abdominal pain. In the ED she was found to be in DKA and started on insulin drip and IV fluids. pH is 7.18. Blood glucose 599 with a BUN of 21 creatinine 1.4. Bicarb of 8. Lactate elevated 2.3. Elevated triglycerides of 509. She does not recall if she is taking fenofibrate. 08/16 Patient complains of a headache but otherwise is feeling better. Transition off insulin drip to subcu insulin and titrate as needed. Acidosis improved. Hypokalemia. Acidosis present but improving. Hypophosphatemia. 08/17 Patient doing better. Acid-base improved blood glucose improved electrolytes improved. Patient stable for discharge Patient extremely high risk for readmission given multiple admissions and attempt to get to assisted living facility but unable, this is being worked on outpatient. 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: #Metabolic acidosis with lactic acidosis(improved): #SUDARSHAN w/volume depletion: 2/2 above #Hypokalemia/hypophosphatemia: #CAD: #Hypothyroidism: #Chronic pancreatitis: #Hypertriglyceridemia: #chronically elevated LFT's #Essential tremor: #chr back pain: Plan: -QHS snack -adjust home tresiba upon d/c and reminder of qhs snack Discharge diagnosis: DKA/HHS acidosis post renal diabetes acute kidney injury electrolyte distur Secondary discharge diagnosis: Electrolyte disturbance CAD hypothyroidism chronic pancreatitis hypertriglyceridemia chronically elevated LFTs essential tremor chronic back pain Time Spent with Patient Time attestation: Total time spent providing and/or coordinating discharge services: Time spent: Greater than 30 minutes EXAM Constitutional Vitals: Temp Pulse Resp BP Pulse Ox O2 Del Method 97.6 F 63 13 140/50 96 08/16/22 12:36 08/16/22 12:01 08/16/22 12:01 08/16/22 12:01 08/16/22 12:01 08/16/22 08:00 Discharge Data Data Completed and Pending Labs on day of discharge: Labs from last 24 hours 08/16/22 08/16/22 08/16/22 06:17 06:16 06:16 WBC 5.0 RBC 3.58 L Hgb 10.6 L Hct 32.2 L MCV 89.9 MCH 29.6 MCHC 32.9 RDW 14.2 Plt Count 196 MPV 9.4 Immature Gran % (Auto) 0.2 Neut % (Auto) 43.8 Lymph % (Auto) 44.6 [place] % (Auto) 5.8 Eos % (Auto) 4.8 Baso % (Auto) 0.8 Lymph # (Auto) 2.23 [place] # (Auto) 0.29 Eos # (Auto) 0.24 Baso # (Auto) 0.04 Immature Gran # 0.01 Absolute Neutrophils 2.19 ABG Methemoglobin 0.1 L VBG pH 7.38 VBG pCO2 35.7 L VBG pO2 140.1 H VBG HCO3 20.6 L VBG Total CO2 21.7 L VBG O2 Saturation 93.2 H VBG Base Excess -4 L VBG Lactic Acid Carboxyhemoglobin 5.2 H Total Hemoglobin 12.0 Sodium 133 Potassium 3.0 L Chloride 103 Carbon Dioxide 20 L Anion Gap 10.0 BUN 11 Creatinine 0.8 GFR Calculation 71 Glucose 177 H Hemoglobin A1c Estim Average Glucose Osmolality Uric Acid 9.3 H Calcium 8.3 L Phosphorus 1.7 L Magnesium 1.6 Total Bilirubin 0.3 Direct Bilirubin < 0.2 GGT 62 H AST 17 ALT 13 Alkaline Phosphatase 119 H Lactate Dehydrogenase 173 Total Protein 5.3 L Albumin 3.0 L Globulin 2.3 Albumin/Globulin Ratio 1.3 Triglycerides 149 Beta-Hydroxybutyrate 0.10 Urine Color Urine Appearance Urine pH Ur Specific Reubens Urine Protein Urine Glucose (UA) Urine Ketones Urine Occult Blood Urine Nitrate Urine Bilirubin Urine Urobilinogen Ur Leukocyte Esterase Urine RBC Urine WBC Ur Squamous Epith Cells Urine Bacteria Hyaline Casts Ur Culture Indicated? 08/15/22 08/15/22 08/15/22 19:44 17:30 15:08 WBC RBC Hgb Hct MCV MCH MCHC RDW Plt Count MPV Immature Gran % (Auto) Neut % (Auto) Lymph % (Auto) [place] % (Auto) Eos % (Auto) Baso % (Auto) Lymph # (Auto) [place] # (Auto) Eos # (Auto) Baso # (Auto) Immature Gran # Absolute Neutrophils ABG Methemoglobin 0.3 L VBG pH 7.28 L VBG pCO2 37.6 L VBG pO2 43.7 H VBG HCO3 17.2 L VBG Total CO2 18.3 L VBG O2 Saturation 76.4 H VBG Base Excess -9 L VBG Lactic Acid 1.4 Carboxyhemoglobin 3.2 H Total Hemoglobin 13.9 Sodium 134 Potassium 4.6 Chloride 92 L Carbon Dioxide 13 L Anion Gap 29.0 H BUN 22 Creatinine 1.4 H GFR Calculation 36 Glucose 587 H* Hemoglobin A1c Estim Average Glucose Osmolality Uric Acid Calcium 9.4 Phosphorus 3.9 Magnesium 2.0 Total Bilirubin Direct Bilirubin GGT AST ALT Alkaline Phosphatase Lactate Dehydrogenase Total Protein Albumin 3.9 Globulin Albumin/Globulin Ratio Triglycerides Beta-Hydroxybutyrate 8.68 H Urine Color Urine Appearance Urine pH Ur Specific Reubens Urine Protein Urine Glucose (UA) Urine Ketones Urine Occult Blood Urine Nitrate Urine Bilirubin Urine Urobilinogen Ur Leukocyte Esterase Urine RBC Urine WBC Ur Squamous Epith Cells Urine Bacteria Hyaline Casts Ur Culture Indicated? 08/15/22 08/15/22 08/15/22 15:08 15:08 15:08 WBC RBC Hgb Hct MCV MCH MCHC RDW Plt Count MPV Immature Gran % (Auto) Neut % (Auto) Lymph % (Auto) [place] % (Auto) Eos % (Auto) Baso % (Auto) Lymph # (Auto) [place] # (Auto) Eos # (Auto) Baso # (Auto) Immature Gran # Absolute Neutrophils ABG Methemoglobin VBG pH VBG pCO2 VBG pO2 VBG HCO3 VBG Total CO2 VBG O2 Saturation VBG Base Excess VBG Lactic Acid Carboxyhemoglobin Total Hemoglobin Sodium 134 131 L Potassium 4.2 4.3 Chloride 92 L 90 L Carbon Dioxide 8 L* 11 L Anion Gap 34.0 H 30.0 H BUN 21 22 Creatinine 1.4 H 1.3 H GFR Calculation 36 40 Glucose 599 H* 561 H* Hemoglobin A1c Estim Average Glucose Osmolality 320 H Uric Acid 11.6 H Calcium 9.4 9.2 Phosphorus 3.7 Magnesium 2.0 Total Bilirubin 0.3 0.4 Direct Bilirubin < 0.2 GGT 81 H AST 18 18 ALT 18 19 Alkaline Phosphatase 166 H 159 H Lactate Dehydrogenase 247 H Total Protein 7.1 7.0 Albumin 3.8 3.7 Globulin 3.3 3.3 Albumin/Globulin Ratio 1.2 1.1 Triglycerides 509 H Beta-Hydroxybutyrate Urine Color Urine Appearance Urine pH Ur Specific Reubens Urine Protein Urine Glucose (UA) Urine Ketones Urine Occult Blood Urine Nitrate Urine Bilirubin Urine Urobilinogen Ur Leukocyte Esterase Urine RBC Urine WBC Ur Squamous Epith Cells Urine Bacteria Hyaline Casts Ur Culture Indicated? 08/15/22 08/15/22 15:05 03:15 WBC RBC Hgb Hct MCV MCH MCHC RDW Plt Count MPV Immature Gran % (Auto) Neut % (Auto) Lymph % (Auto) [place] % (Auto) Eos % (Auto) Baso % (Auto) Lymph # (Auto) [place] # (Auto) Eos # (Auto) Baso # (Auto) Immature Gran # Absolute Neutrophils ABG Methemoglobin VBG pH VBG pCO2 VBG pO2 VBG HCO3 VBG Total CO2 VBG O2 Saturation VBG Base Excess VBG Lactic Acid Carboxyhemoglobin Total Hemoglobin Sodium Potassium Chloride Carbon Dioxide Anion Gap BUN Creatinine GFR Calculation Glucose Hemoglobin A1c 11.4 H Estim Average Glucose 280 Osmolality Uric Acid Calcium Phosphorus Magnesium Total Bilirubin Direct Bilirubin GGT AST ALT Alkaline Phosphatase Lactate Dehydrogenase Total Protein Albumin Globulin Albumin/Globulin Ratio Triglycerides Beta-Hydroxybutyrate Urine Color Lt. yellow Urine Appearance Clear Urine pH 6.0 Ur Specific Reubens <= 1.005 Urine Protein Negative Urine Glucose (UA) 500 A Urine Ketones 40 A Urine Occult Blood Negative Urine Nitrate Negative Urine Bilirubin Negative Urine Urobilinogen Normal Ur Leukocyte Esterase Trace A Urine RBC 0 Urine WBC 10 H Ur Squamous Epith Cells 0 Urine Bacteria None Hyaline Casts 3 H Ur Culture Indicated? yes Discharge Plan Patient/Caregiver Discharge Instructions Activity: increase activity as tolerated Diet: Consistent Carbohydrate Activity Restrictions/Additional Instructions: Call your PCP if your blood sugars are running low. Remember to have a nighttime snack before bed. Prescriptions: Continued multivit [id number] [Hair, Skin and Nails Advanced] 1 tab PO DAILY trazodone 100 mg tablet 100 mg PO HSP PRN (Reason: insomnia) Zenpep 40,000-126,000- 168,000 unit capsule,delayed release(DR/EC) 40,000 cap PO TID Label Comments: take 1 capsule by mouth three times a day took one does this am acyclovir 400 mg tablet 1 tab PO BID gabapentin 800 mg tablet 1 tab PO TID Label Comments: morning and noon dose zinc 50 mg Tablet 50 mg PO DAILY cholecalciferol (vitamin D3) [Vitamin D3] 50 mcg (2,000 unit) Capsule 50 mcg PO DAILY hyoscyamine sulfate 0.125 mg tablet, sublingual 0.125 mg PO Q6H PRN (Reason: Abdominal Discomfort) Qty: 20 0RF Rx Instructions: PRN for rectal spasms levothyroxine 25 mcg tablet 1 tab PO QAM propranolol 10 mg tablet 1 tab PO TID Label Comments: Took 1 dose this am insulin aspart U-100 [Novolog Flexpen U-100 Insulin] 100 unit/mL (3 mL) insulin pen See Protocol subcut ACHS Protocol: Insulin Sliding Scale, High Condition: HUMALOG/NOVALOG SC SLIDING Dose/Route: SCALE Condition: FSBS < 70 Dose/Route: Give 4 Oz juice, or 15gm oral Instruction: Glucose, or 25ml D50W IV if Dose/Route: unable to take PO. Recheck in Instruction: 15 min and repeat if FSBS < 70 Condition: FSBS 71-140 Dose/Route: NO COVERAGE Condition: FSBS 141-170 Dose/Route: 3 UNITS Condition: FSBS 171-200 Dose/Route: 6 UNITS Condition: FSBS 201-250 Dose/Route: 9 UNITS Condition: FSBS 251-300 Dose/Route: 12 UNITS Condition: FSBS 301-350 Dose/Route: 15 UNITS Condition: FSBS 351-400 Dose/Route: 18 UNITS Condition: FSBS > 400 Dose/Route: 20 UNITS; REPEAT Q2H X2 Instruction: CONTINUE FOLLOWING SLIDING Condition: SCALE; IF STILL > 400; CALL Dose/Route: PHYSICIAN levothyroxine 100 mcg tablet 1 tab PO QDAY Label Comments: takes total 125 mcg of levothyroxine a day atorvastatin 40 mg tablet 1 tab PO QDAY duloxetine 30 mg capsule,delayed release(DR/EC) 1 cap PO QDAY methocarbamol 500 mg Tablet 500 mg PO TIDP PRN (Reason: Muscle Spasm) Qty: 30 0RF Label Comments: "Took one this morning 08/15/22" oxycodone 5 mg Tablet 5 mg PO Q4HP PRN (Reason: Per Pain Protocol) Qty: 20 0RF Label Comments: "I havent used that for two years." ibuprofen 200 mg Tablet 200 mg PO Q6H PRN (Reason: Pain) Label Comments: Takes a few times a day as needed otc Took unknown amount thiis am; takes for generalized pain/lower back pain insulin degludec [Tresiba U-100 Insulin] 100 unit/mL solution 25 unit subcut AC Changed insulin degludec [Tresiba U-100 Insulin] 100 unit/mL solution 15 unit subcut HS Qty: 10 0RF Follow Up Plan Follow up with: Jacque Severino FNP [Primary Care Provider] - Patient Disposition: Home Health Service Prognosis: Undetermined Overall status at discharge: patient is progressing back to baseline Discharge Orders: Discharge Order (Routine); Ordered 08/17/22 Ordered By: Jef Borges
[2022-08-16] MEDS: METHOCARBAMOL 500 MG TABLET PO PRN (19:30)
[2022-08-16] MEDS ORDERED: INSULIN GLARGINE, HUMAN 1 UNIT/0.01 ML SQ SCH (21:00)
[2022-08-16] MEDS: traZODone HCL 100 MG TABLET PO PRN (21:17)
[2022-08-16] MEDS: HYOSCYAMINE SULFATE 0.125 MG TABLET PO PRN (21:17)
[2022-08-17] MEDS: METHOCARBAMOL 500 MG TABLET PO PRN ×2 (02:08→08:26)
[2022-08-17] MEDS: oxyCODONE HCL 5 MG TABLET PO PRN ×2 (02:08→08:27)
[2022-08-17] MEDS: 0.9 % SODIUM CHLORIDE 10 ML SYRINGE IV SCH (04:31)
[2022-08-17] MEDS: LEVOTHYROXINE 125 MCG TABLET PO SCH (07:37)
[2022-08-17] MEDS: INSULIN LISPRO 1 UNIT/0.01 ML UNIT SQ SCH ×2 (07:37→11:27)
[2022-08-17] MEDS: LIPASE/PROTEASE/AMYLASE 1 CAP CAPSULE PO SCH ×2 (07:37→11:27)
[2022-08-17 07:38] LABS: ALT/SGPT 30 U/L (<40); AST/SGOT 104 U/L (<32); Albumin 2.9 gm/dL (3.2-5.2); Albumin/Globulin Ratio 1.1 (1.0-2.3); Alkaline Phosphatase 129 U/L (39-117); Bilirubin,Direct < 0.2 mg/dL (0-0.3); Bilirubin,Total 0.2 mg/dL (0.1-1.0); Blood Urea Nitrogen 7 mg/dL (8-23); Calcium 8.6 mg/dL (8.6-10.4); Carbon Dioxide 20 mmol/L (22-30); Chloride 106 mmol/L (96-108); Globulin 2.6 gm/dL (2.2-3.7); Glomerular Filtration Rate 88; Glucose 196 mg/dL (70-105); Lactate Dehydrogenase 244 U/L (135-225); Phosphorous 2.5 mg/dL (2.5-4.5); Triglycerides 121 mg/dL (<150); Uric Acid 6.3 mg/dL (2.5-8.0)
[2022-08-17] MEDS: DOCUSATE SODIUM 100 MG CAPSULE PO SCH (08:26)
[2022-08-17] MEDS: GABAPENTIN 400 MG CAPSULE PO SCH (08:27)
[2022-08-17] MEDS: INSULIN GLARGINE, HUMAN 1 UNIT/0.01 ML SQ SCH (08:28)
[2022-08-17] MEDS: DULoxetine 30 MG CAPSULE PO SCH (08:28)
[2022-08-17] MEDS: ENOXAPARIN 40 MG/0.4 ML SYRINGE SQ SCH (08:28)
[2022-08-17] MEDS: ATORVASTATIN 40 MG TABLET PO SCH (08:28)
[2022-08-17] MEDS: PROPRANOLOL 10 MG TABLET PO SCH (08:28)
--- NOTE | 2022-08-17 08:43 | Internal Med Progress Note ---
SUBJECTIVE Subjective Patient information: Note initiated : 08/17/22 at 8:42 am Service Date, if different from initiated Date: [] Patient: Tennille Castillo a 77 y/o F admitted on 08/15/22 for BG HI. Chief Complaint: [] Interval history: History of present illness: Ms. Castillo is a 77 year old F Presents to the ED with elevated blood glucose. Patient states she is also have some dizziness weakness headache nausea. She is on Tresiba and stopped taking this several weeks ago because her morning blood sugars are in the 40s. She has been taking sliding scale insulin. She complains of polyuria and polydipsia. She has some mild abdominal pain. In the ED she was found to be in DKA and started on insulin drip and IV fluids. pH is 7.18. Blood glucose 599 with a BUN of 21 creatinine 1.4. Bicarb of 8. Lactate elevated 2.3. Elevated triglycerides of 509. She does not recall if she is taking fenofibrate. 08/16 Patient complains of a headache but otherwise is feeling better. Transition off insulin drip to subcu insulin and titrate as needed. Acidosis improved. Hypokalemia. Acidosis present but improving. Hypophosphatemia. Review of Systems: denies fever/chills/nausea/vomiting/chest or abdominal pain/cough/dyspnea/diarrhea. Otherwise see above. Constitutional Vitals: Vital Signs Temp Pulse Resp BP Pulse Ox O2 Del Method 98.4 F 62 16 115/57 100 08/17/22 07:33 08/17/22 07:33 08/17/22 07:33 08/17/22 07:33 08/17/22 07:33 08/17/22 07:33 Period Temp Pulse Resp BP Sys/Rosario Pulse Ox O2 Del Method O2 Flow Rate Last 24 Hr 97.3 F-98.8 F 62-65 13-18 109-140/50-63 95-100 Room Air-Room Air Intake and Output 08/16/22 08/17/22 08/17/22 19:59 03:59 11:59 Intake Total 720 600 200 Output Total 1050 Balance -330 600 200 Weight 65.317 kg 68.765 kg Intake & Output: Intake & Output 08/16/22 08/17/22 08/17/22 19:59 03:59 11:59 Intake Total 720 600 200 Output Total 1050 Balance -330 600 200 Weight 65.317 kg 68.765 kg Intake: IV 0 Sodium Chloride 0.9% 250 ml @ 0 20 mls/hr IV .[id number] [facility] Rx#: [id number] HumuLIN R 50 UNIT In Sodium 0 Chloride 0.9% 99.5 ml @ 3 UNIT/ HR 6 mls/hr IV DUR PEG Rx#: [id number] Oral 720 600 200 Output: Void Amount 1050 Other: Meal Dinner Percent of Meal Consumed 100% Feeding Ability Independent Urine Appearance Clear Urine Color Dark Yellow Stool Color Brown Stool Consistency Loose # Voids 3 2 # Bowel Movements 5 1 Exam: General: Alert, Awake, No acute Distress Eyes/N/T: EOMI, Head/Neck: neck supple, CV: RRR, 3/6SM, Pulm: Clear b/l, no wheezing/rhonchi/rales Abd: soft, nontender, +BS x4 Ext: no clubbing/cyanosis/edema Neuro: Alert, no focal deficits, moves all extremities, Skin: warm/dry OBJ DATA Labs CBC & Chem 7: 08/16/22 06:16 08/17/22 05:30 Labs: Abnormal Lab Results 08/17/22 08/16/22 08/16/22 05:30 06:17 06:16 RBC Hgb Hct ABG Methemoglobin 0.1 L VBG pH POC VBG pH VBG pCO2 35.7 L POC VBG pCO2 at Temp VBG pO2 140.1 H VBG HCO3 20.6 L POC VBG HCO3 VBG Total CO2 21.7 L POC VBG Total CO2 VBG O2 Saturation 93.2 H POC Venous O2 Sat VBG Base Excess -4 L POC VBG Base Excess VBG Lactic Acid Carboxyhemoglobin 5.2 H Sodium Potassium 3.0 L Chloride Carbon Dioxide 20 L 20 L Anion Gap BUN 7 L Creatinine Glucose 196 H 177 H Hemoglobin A1c Osmolality Uric Acid 9.3 H Calcium 8.3 L Phosphorus 1.7 L GGT 72 H 62 H AST 104 H Alkaline Phosphatase 129 H 119 H Lactate Dehydrogenase 244 H Total Protein 5.5 L 5.3 L Albumin 2.9 L 3.0 L Triglycerides Beta-Hydroxybutyrate Urine Glucose (UA) Urine Ketones Ur Leukocyte Esterase Urine WBC Hyaline Casts 08/16/22 08/15/22 08/15/22 06:16 17:30 15:08 RBC 3.58 L Hgb 10.6 L Hct 32.2 L ABG Methemoglobin 0.3 L VBG pH 7.28 L POC VBG pH VBG pCO2 37.6 L POC VBG pCO2 at Temp VBG pO2 43.7 H VBG HCO3 17.2 L POC VBG HCO3 VBG Total CO2 18.3 L POC VBG Total CO2 VBG O2 Saturation 76.4 H POC Venous O2 Sat VBG Base Excess -9 L POC VBG Base Excess VBG Lactic Acid Carboxyhemoglobin 3.2 H Sodium Potassium Chloride 92 L Carbon Dioxide 13 L Anion Gap 29.0 H BUN Creatinine 1.4 H Glucose 587 H* Hemoglobin A1c Osmolality Uric Acid Calcium Phosphorus GGT AST Alkaline Phosphatase Lactate Dehydrogenase Total Protein Albumin Triglycerides Beta-Hydroxybutyrate 8.68 H Urine Glucose (UA) Urine Ketones Ur Leukocyte Esterase Urine WBC Hyaline Casts 08/15/22 08/15/22 08/15/22 15:08 15:08 15:08 RBC Hgb Hct ABG Methemoglobin VBG pH POC VBG pH VBG pCO2 POC VBG pCO2 at Temp VBG pO2 VBG HCO3 POC VBG HCO3 VBG Total CO2 POC VBG Total CO2 VBG O2 Saturation POC Venous O2 Sat VBG Base Excess POC VBG Base Excess VBG Lactic Acid Carboxyhemoglobin Sodium 131 L Potassium Chloride 92 L 90 L Carbon Dioxide 8 L* 11 L Anion Gap 34.0 H 30.0 H BUN Creatinine 1.4 H 1.3 H Glucose 599 H* 561 H* Hemoglobin A1c Osmolality 320 H Uric Acid 11.6 H Calcium Phosphorus GGT 81 H AST Alkaline Phosphatase 166 H 159 H Lactate Dehydrogenase 247 H Total Protein Albumin Triglycerides 509 H Beta-Hydroxybutyrate Urine Glucose (UA) Urine Ketones Ur Leukocyte Esterase Urine WBC Hyaline Casts 08/15/22 08/15/22 08/15/22 15:05 14:57 03:15 RBC Hgb Hct ABG Methemoglobin VBG pH POC VBG pH 7.18 L* VBG pCO2 POC VBG pCO2 at Temp 31.4 L VBG pO2 VBG HCO3 POC VBG HCO3 11.6 L VBG Total CO2 POC VBG Total CO2 13.0 L VBG O2 Saturation POC Venous O2 Sat 33.0 L VBG Base Excess POC VBG Base Excess -17.0 L VBG Lactic Acid 3.3 H Carboxyhemoglobin Sodium Potassium Chloride Carbon Dioxide Anion Gap BUN Creatinine Glucose Hemoglobin A1c 11.4 H Osmolality Uric Acid Calcium Phosphorus GGT AST Alkaline Phosphatase Lactate Dehydrogenase Total Protein Albumin Triglycerides Beta-Hydroxybutyrate Urine Glucose (UA) 500 A Urine Ketones 40 A Ur Leukocyte Esterase Trace A Urine WBC 10 H Hyaline Casts 3 H Meds: Medications Acetaminophen (Acetaminophen 325 Mg Tablet) 650 mg PO Q6HP PRN; Protocol PRN Reason: Per Pain Protocol/Fever > 101 Last Admin: 08/16/22 11:51 Dose: 650 mg Albuterol/Ipratropium (Ipratropium/Albuterol 3 Ml Ampul.Neb) 3 ml NEB Q4HP PRN PRN Reason: Shortness Of Breath Lipase/Protease/Amylase (Lipase/Protease/Amylase 1 Cap Capsule) 1 cap PO TIDCC [facility] Last Admin: 08/17/22 07:37 Dose: 1 cap Atorvastatin Calcium (Atorvastatin 40 Mg Tablet) 40 mg PO QDAY [facility] [place] Last Admin: 08/17/22 08:28 Dose: 40 mg Dextrose (Dextrose 50% 50 Ml Vial) 0 ml IV UD PRN PRN Reason: Per Sliding Scale Diagnostic Test (Pha) (Accu-Chek 1 Each Strip) 1 each FS ACHS [facility] [place] Last Admin: 08/17/22 07:37 Dose: 1 each Docusate Sodium (Docusate Sodium 100 Mg Capsule) 100 mg PO BID [facility] [place] Last Admin: 08/17/22 08:26 Dose: Not Given Duloxetine HCl (Duloxetine 30 Mg Capsule) 30 mg PO QDAY [facility] [place] Last Admin: 08/17/22 08:28 Dose: 30 mg Enoxaparin Sodium (Enoxaparin 40 Mg/0.4 Ml Syringe) 40 mg SQ DAILY [facility] [place] Last Admin: 08/17/22 08:28 Dose: 40 mg Gabapentin (Gabapentin 400 Mg Capsule) 800 mg PO TID [facility] [place] Last Admin: 08/17/22 08:27 Dose: 800 mg Glucose (Dextrose 31 Gm Oral.Susp) 15 gm PO PRN PRN PRN Reason: Hypoglycemia Hyoscyamine (Hyoscyamine Sulfate 0.125 Mg Tablet) 0.125 mg PO Q6HP PRN PRN Reason: Abdominal Discomfort Last Admin: 08/16/22 21:17 Dose: 0.125 mg Potassium Chloride 40 meq/ (Dextrose) 520 mls @ 130 mls/hr IV UD PRN PRN Reason: Potassium < 3 Magnesium Sulfate (Magnesium Sulfate) 2 gm in 50 mls @ 50 mls/hr IV UD PRN PRN Reason: Magnesium </= 1.6 Last Infusion: 08/16/22 11:40 Dose: Infused Insulin Human Lispro (Insulin Lispro 1 Unit/0.01 Ml Unit) 0 unit SQ ACHS [facility] [place]; Protocol Last Admin: 08/17/22 07:37 Dose: 6 units Levothyroxine Sodium (Levothyroxine 125 Mcg Tablet) 125 mcg PO QAMAC PEG Last Admin: 08/17/22 07:37 Dose: 125 mcg Methocarbamol (Methocarbamol 500 Mg Tablet) 500 mg PO TIDP PRN PRN Reason: Muscle Spasm Last Admin: 08/17/22 08:26 Dose: 500 mg Ondansetron HCl (Ondansetron 4 Mg/2 Ml Vial) 4 mg IV Q4HP PRN PRN Reason: Nausea And Vomiting Oxycodone HCl (Oxycodone Hcl 5 Mg Tablet) 5 mg PO Q4HP PRN; Protocol PRN Reason: Per Pain Protocol Last Admin: 08/17/22 08:27 Dose: 5 mg Polyethylene Glycol (Polyethylene Glycol 3350 17 Gm Packet) 17 gm PO DAILYP PRN PRN Reason: Constipation Potassium Chloride (Potassium Chloride 20 Meq Tablet) 40 meq PO UD PRN PRN Reason: Potssium is 3-3.5 Last Admin: 08/16/22 09:01 Dose: 40 meq Potassium Chloride (Potassium Chloride 20 Meq Tablet) 40 meq PO UD PRN PRN Reason: Potassium < 3 Propranolol HCl (Propranolol 10 Mg Tablet) 10 mg PO TID [facility] [place] Last Admin: 08/17/22 08:28 Dose: 10 mg Senna (Sennosides 1 Tablet) 2 tab PO DAILYP PRN PRN Reason: Constipation Sodium Chloride (0.9 % Sodium Chloride 10 Ml Syringe) 10 ml IV Q8 [facility] [place] Last Admin: 08/17/22 04:31 Dose: 10 ml Trazodone HCl (Trazodone Hcl 100 Mg Tablet) 100 mg PO HSP PRN PRN Reason: insomnia Last Admin: 08/16/22 21:17 Dose: 100 mg ABG Interpretation ABG results: 08/15/22 08/16/22 17:30 06:17 ABG Methemoglobin 0.3 L 0.1 L VBG pH 7.28 L 7.38 VBG pCO2 37.6 L 35.7 L VBG pO2 43.7 H 140.1 H VBG HCO3 17.2 L 20.6 L VBG Total CO2 18.3 L 21.7 L VBG O2 Saturation 76.4 H 93.2 H VBG Base Excess -9 L -4 L A/P Narrative A/P Narrative: 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: #Metabolic acidosis with lactic acidosis(improved): #SUDARSHAN w/volume depletion: 2/2 above -improving #Hypokalemia/hypophosphatemia: #CAD: #Hypothyroidism: #Chronic pancreatitis: #Hypertriglyceridemia: #chronically elevated LFT's #Essential tremor: #chr back pain: Plan: -restarted home basal insulin at lower dose, increase back to 25qam but qhs only at 20 -QHS snack -adjust home tresiba upon d/c and reminder of qhs snack -f/u and Replace electrolytes -uop, i/o -Continue home duloxetine/gabapentin/levothyroxine -Continue her home pancreatic enzyme supplements -PT/OT -CM for SNF placement -DVT prophylaxis: lovenox CODE STATUS: DNR Time Spent With Patient Time: Total time spent is greater than 50% in coordination of care (as documented) at patient's floor/unit and/or counseling patient: Total time spent with greater than 50% in coordination of care (as documented) at patient's floor/unit and/or counseling patient:: 35 - 50 minutes
[2022-08-17] MEDS ORDERED: INSULIN GLARGINE, HUMAN 1 UNIT/0.01 ML SQ SCH ×2 (09:00→21:00)
== END 2022-08-17 15:15 | disposition home health service (06) | DRG 638 ==
LOC: ED 14:47 → ICU 19:50 → MEDSUR 08-16 13:00
PROVIDERS: ADMIT Internal Medicine; ATTEND Internal Medicine

== ENCOUNTER 2022-08-21 14:21 | Inpatient (IN) ==
[2022-08-21] MEDS ORDERED: 0.9 % SODIUM CHLORIDE 1,000 ML IV ONE ×2 (14:45→14:50)
[2022-08-21 15:00] LABS: POC Blood Urea Nitrogen 29 (6-20); POC Calcium, Ionized 1.16 (1.16-1.32); POC Chloride 101 (96-108); POC Creatinine 1.2 (0.6-1.2); POC Glucose, Random > 700 (70-105); POC Potassium 5.9 (3.3-5.1); POC Sodium 125 (133-145)
[2022-08-21] MEDS ORDERED: INSULIN REGULAR, HUMAN 1 UNIT/0.01 ML UNIT IV ONE ×2 (15:50→18:15)
--- NOTE | 2022-08-21 16:12 | Emergency Department Note ---
HPI General Chief complaint: Blood Sugar Problem Stated complaint: shortness of breath, elevated blood sugar Time Seen by Provider: 08/21/22 14:49 Source: patient and EMS Mode of arrival: EMS Limitations: no limitations History of Present Illness HPI Narrative: 77-year-old female with longstanding type 2 diabetes and recent admission to [facility] from 08/15-08/17 for DKA presents for the same today. Patient is very weak and having difficulty answering my questions. She states that she "does not know what happened." It looks like her Tresiba was stopped due to low blood sugars at her discharge. The patient is endorsing significant weakness and dehydration. She was brought in by EMS today. She states she feels very weak and short of breath. She does not usually require oxygen and is on 2 L here. Related Data Home Medications Medication Instructions Recorded Confirmed [id number] 40,000 cap PO TID 06/01/21 08/21/22 40,000-126,000-168,000 unit capsule, delay rel (Zenpep) multivit [id number] 186 1 tab PO DAILY 07/15/21 08/21/22 [Hair, Skin and Nails Advanced] trazodone 100 mg tablet 100 mg PO HSP PRN insomnia 08/22/21 08/21/22 acyclovir 400 mg tablet 1 tab PO BID 09/21/21 08/21/22 gabapentin 800 mg tablet 1 tab PO TID 09/21/21 08/21/22 cholecalciferol (vitamin D3) 50 50 mcg PO DAILY 12/04/21 08/21/22 mcg (2,000 unit) capsule (Vitamin D3) zinc 50 mg tablet 50 mg PO DAILY 12/04/21 08/21/22 insulin aspart U-100 100 unit/mL See Protocol subcut ACHS 04/23/22 08/21/22 (3 mL) subcutaneous pen (Novolog Flexpen U-100 Insulin aspart) propranolol 10 mg tablet 1 tab PO TID 04/23/22 08/21/22 atorvastatin 40 mg tablet 1 tab PO QDAY 05/06/22 08/21/22 duloxetine 30 mg capsule,delayed 1 cap PO QDAY 05/06/22 08/21/22 release ibuprofen 200 mg tablet 200 mg PO Q6H PRN Pain 08/15/22 08/21/22 insulin degludec 100 unit/mL 25 unit subcut AC 08/16/22 08/21/22 subcutaneous solution (Tresiba U-100 Insulin) blood sugar diagnostic (True 08/21/22 08/21/22 Metrix Glucose Test Strip) levothyroxine 125 mcg tablet 1 tab PO QAM 08/21/22 08/21/22 Previous Rx's Medication Instructions Recorded hyoscyamine sulfate 0.125 mg 0.125 mg PO Q6H PRN Abdominal 02/19/22 sublingual tablet Discomfort #20 tabs methocarbamol 500 mg tablet 500 mg PO TIDP PRN Muscle Spasm 05/08/22 #30 tabs insulin degludec 100 unit/mL 15 unit (0.15 mL) subcut HS #10 mL 08/17/22 subcutaneous solution (Tresiba U-100 Insulin) Allergies Allergy/AdvReac Type Severity Reaction Status Date / Time cephalexin [From Keflex] Allergy Intermediate Swelling Verified 08/15/22 20:56 lidocaine Allergy Intermediate Blister Verified 08/15/22 20:56 Penicillins Allergy Mild Rash Verified 08/15/22 20:56 Anistreplase [From Eminase] Allergy Unknown UNKNOWN Verified 08/15/22 20:56 fenugreek Allergy Unknown UNKNOWN Verified 08/15/22 20:56 codeine AdvReac Mild Itching Verified 08/15/22 20:56 Erythromycin Base AdvReac Mild Itching Verified 08/15/22 20:56 Nortriptyline AdvReac Mild Nausea Verified 08/15/22 20:56 promethazine AdvReac Mild Fainting Verified 08/15/22 20:56 trulicity AdvReac Intermediate Other Uncoded 12/04/21 06:40 Review of Systems ROS ROS Narrative: Narrative: All systems ED: reviewed and negative except as stated. [facility] Narrative Patient History Narrative: Narrative: Medical/Surgical/Family History All Active Problems (Updated 08/21/22 @ 19:36 by Emi Romero PA-C) DKA, type 2 (Acute) Essential hypertension (Acute) Mixed dyslipidemia (Acute) Hyperkalemia (Acute) Compression fracture of body of thoracic vertebra (Acute) Pain in rib (Acute) Hyperglycemia due to type 2 diabetes mellitus (Acute) Chronic pain syndrome (Acute) DKA, type 2 (Acute) Hypoglycemia (Acute) DKA (diabetic ketoacidosis) (Acute) Acute hyponatremia (Acute) Acute hyperkalemia (Acute) Acidosis, lactic (Acute) Metabolic acidosis (Acute) Blood in urine (Chronic) Diabetic keto-acidosis (Chronic) Pseudohyponatremia (Chronic) DKA (diabetic ketoacidosis) (Chronic) Hypomagnesemia (Chronic) Generalized weakness (Chronic) Acute dehydration (Chronic) Diabetic ketosis (Chronic) Acute dyspnea (Chronic) Obstructive sleep apnea (Chronic) DKA (diabetic ketoacidosis) (Chronic) Vulvovaginitis due to yeast (Chronic) Sleepwalking (Chronic) REM sleep behavior disorder (Chronic) Hypersomnia (Chronic) Snoring (Chronic) Tremor (Chronic) Neurofibromatosis 2 (Chronic) Trigger finger (Chronic) Sleep disturbance (Chronic) Arthralgia (Chronic) Pancreatitis (Chronic) Macular degeneration (Chronic) Hepatitis A (Chronic) Glaucoma (Chronic) Fibromyalgia (Chronic) DDD (degenerative disc disease), cervical (Chronic) Diabetic retinopathy (Chronic) Opioid dependence (Chronic) Stress (Chronic) Hard of hearing (Chronic) Multiple environmental allergies (Chronic) Fracture of lumbar spine (Chronic) Compression fracture of lumbosacral spine (Chronic) Abdominal pain (Chronic) Chronic pancreatitis (Chronic) Liver mass (Chronic) Cirrhosis of liver (Chronic) Constipation (Chronic) Neuropathy (Chronic) Chronic pain (Chronic) Essential tremor (Chronic) Bimalleolar ankle fracture (Chronic) Chronic bronchitis with acute exacerbation (Chronic) Dehydration (Chronic) Epistaxis (Chronic) Hypoxia (Chronic) Anterior epistaxis (Chronic) Candidiasis of mouth (Chronic) DKA (diabetic ketoacidosis) (Chronic) Conjunctivitis (Chronic) Bronchitis (Chronic) Dehiscence of closure of skin (Chronic) Anemia (Chronic) Elevated liver enzymes (Chronic) 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) Radiculopathy, sacral and sacrococcygeal region (Chronic) Radiculopathy, lumbosacral region (Chronic) Insomnia (Chronic) Levator syndrome (Chronic) Sacrococcygeal pain (Chronic) History of surgery (Chronic) Hypothyroidism (Chronic) Chronic bronchitis (Chronic) 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) Depression (Chronic) Anxiety (Chronic) Hypertension (Chronic) Osteoporosis (Chronic) Rectal pain (Chronic) Low back pain (Chronic) Pain in thoracic spine (Chronic) Age-related osteoporosis with current pathological fracture, vertebra(e), initial encounter for fracture (Chronic) Medical History Abdominal pain Acute exacerbation of chronic obstructive airways disease Age-related osteoporosis with current pathological fracture, vertebra(e), initial encounter for fracture Anemia Anterior epistaxis Anxiety Arthralgia Bilateral primary osteoarthritis of hip Bimalleolar ankle fracture Blood in urine Bronchitis Candidiasis of mouth Chronic bronchitis with acute exacerbation Chronic pain Chronic pancreatitis Cirrhosis of liver Compression fracture of lumbosacral spine Conjunctivitis Constipation DDD (degenerative disc disease), cervical Dehiscence of closure of skin Dehydration Depression Diabetic retinopathy DKA (diabetic ketoacidosis) Elevated liver enzymes Epistaxis Essential tremor Fibromyalgia Fracture of lumbar spine Glaucoma Hard of hearing Hepatitis A Hyperglycemia due to type 2 diabetes mellitus Hypersomnia Hypertension Hypothyroidism Hypoxia Insomnia Levator syndrome Lipomatosis Liver mass Low back pain Macular degeneration Multiple environmental allergies Neurofibromatosis 2 Neuropathy Obstructive sleep apnea Opioid dependence Osteoporosis Pain in thoracic spine Pancreatitis Radiculopathy, lumbosacral region Radiculopathy, sacral and sacrococcygeal region Rectal pain REM sleep behavior disorder Sacrococcygeal pain Sleep disturbance Sleepwalking Snoring Stress Tremor Trigger finger Surgical History History of appendectomy (~1970) History of arthroplasty of right ankle (~2017) History of cataract surgery (~2003) History of cholecystectomy History of colonoscopy (~06/26/18) History of decompression of median nerve (~2003) History of dilation and curettage History of eye surgery (~2005) Glaucoma History of hand surgery (~2003) Release of trigger finger, right History of left breast biopsy (~2005) History of oophorectomy History of surgery Vertebroplasty T12 w/sed 09/28/19 History of surgery retinopathy laser Stereotactic destruction of lesion using gamma radiation-2004 History of surgery on wrist History of tonsillectomy and adenoidectomy (~1969) Family History Mother Heart disease Fibromyalgia Father Malignant melanoma Malignant tumor of prostate Leukemia Social History Smoking Status: Never smoker Alcohol Intake Frequency: does not drink Substance Use: does not use Exam Narrative Narrative: General: AOx3, ill and weak appearing. Following commands, answering questions appropriately. Conversant HEENT: PERRL, EOMI, normocephalic. Severely dry mucous membranes. Normal facies and normal dentition. Chest: Symmetric, no pain to palpation Respiratory: Lungs clear to auscultation bilaterally. No respiratory distress. Unlabored breathing. Heart: Regular rate and rhythm, no murmurs/clicks/rubs. Abdomen: Mild hypogastric discomfort, negative rebound, non distended, normal bowel tones. No organomegaly. Extremities: Warm and well perfused. No edema. DP 2+ bilaterally. No venous stasis. Neuro: No focal deficits. Cranial nerves II-XII grossly normal. Skin: Warm dry, no rashes or lesions, no cyanosis. Psych: Normal mood and affect Heme/Lymph: No abnormal bruising General Limitations: no limitations Course Course Course Narrative: 77-year-old type II diabetic with recent admission for DKA presents to the ER for weakness and shortness of breath. Reevaluation(s) Reevaluation #1: Obtain DKA laboratory work-up Start IV give 1 L IV fluids now Obtain chest x-ray, CBC Reevaluation #2: Patient is in severe DKA with an anion gap of 40. pH is 6.85, PCO2 is 18.7, bicarb is 3.2, corrected sodium is 139 Initiate DKA protocol Chest x-ray is negative. UA is pending. Patient has significant leukocytosis with a white blood cell count of 16,000 with left shift. Vital Signs Vital signs: Vital Signs Pulse Rate 99 H 08/21/22 14:31 Respiratory Rate 20 08/21/22 14:31 Blood Pressure 134/48 08/21/22 14:31 Pulse Oximetry (%) 100 08/21/22 14:31 Oxygen Delivery Method 08/21/22 14:31 Temperature 96.3 F L 08/21/22 17:41 Pulse Rate 93 H 08/21/22 17:00 Respiratory Rate 15 08/21/22 19:30 Blood Pressure 120/50 08/21/22 19:30 Pulse Oximetry (%) 100 08/21/22 19:30 Oxygen Delivery Method 08/21/22 17:41 MDM MDM Narrative Medical decision making narrative: DKA Leukocytosis Hyperkalemia Patient will need to be admitted inpatient for management of her severe DKA. UA is currently pending, chest x-ray is negative. I have reached out to the hospitalist for admission and she has been accepted. Lab Data Result diagrams: 08/21/22 15:38 08/21/22 14:42 Labs: Lab Results 08/21/22 08/21/22 08/21/22 Range/Units 14:42 14:42 15:38 WBC 16.0 H (4.5-11.0) K/mcL RBC 4.12 (3.59-5.38) M/mcL Hgb 12.9 (11.2-15.7) g/dL Hct 42.3 (34.1-44.9) % POC Hct 40.0 (36-48) MCV 102.7 H (80.0-100.0) fL MCH 31.3 (26.0-34.0) pg MCHC 30.5 L (31.0-36.0) g/dL RDW 14.9 H (11.5-14.5) % Plt Count 277 (140-440) K/mcL MPV 11.0 (8.8-12.5) fL Immature Gran % (Auto) 1.8 H (0.0-0.5) % Neut % (Auto) 78.9 H (38.0-78.0) % Lymph % (Auto) 14.0 L (15.5-49.0) % Sharkey % (Auto) 4.2 (1.0-12.0) % Eos % (Auto) 0.4 (0.0-7.0) % Baso % (Auto) 0.7 (0.0-2.0) % Lymph # (Auto) 2.25 (1.50-4.80) K/mcL Sharkey # (Auto) 0.67 (0.10-0.90) K/mcL Eos # (Auto) 0.06 (0.00-0.70) K/mcL Baso # (Auto) 0.11 (0.00-0.30) K/mcL Immature Gran # 0.29 H (0.00-0.05) K/mcl Absolute Neutrophils 12.66 H (1.80-8.00) K/mcL ABG Methemoglobin (0.4-1.5) % VBG pH (7.32-7.42) U VBG pCO2 (41.0-51.0) mmHg VBG pO2 (25.0-40.0) mmHg VBG HCO3 (24.0-28.0) mmol/L VBG Total CO2 (25.0-29.0) mmol/L VBG O2 Saturation (40.0-70.0) % VBG Base Excess (-2-3) Carboxyhemoglobin (0.0-1.5) % THgb Total Hemoglobin (12.0-15.0) gm/Dl POC Sodium 125 L (133-145) Sodium 126 L (133-145) mmol/L POC Potassium 5.9 H* (3.3-5.1) Potassium 6.1 H* (3.3-5.1) mmol/L POC Chloride 101 (96-108) Chloride 84 L (96-108) mmol/L Carbon Dioxide 2 L* (22-30) mmol/L POC Total CO2 5.0 L* (22-30) Anion Gap 40.0 H (8.0-16.0) POC BUN 29 H (6-20) BUN 25 H (8-23) mg/dL Creatinine 1.6 H (0.6-1.1) mg/dL POC Creatinine 1.2 (0.6-1.2) GFR Calculation 31 Glucose 996 H* (70-105) mg/dL POC Glucose > 700 H* (70-105) Calcium 9.1 (8.6-10.4) mg/dL POC WB Ioniz Calcium 1.16 (1.16-1.32) Phosphorus (2.5-4.5) mg/dL Total Bilirubin 0.4 (0.1-1.0) mg/dL AST 20 (<32) U/L ALT 21 (<40) U/L Alkaline Phosphatase 166 H (39-117) U/L Total Protein 6.5 (5.9-8.4) gm/dL Albumin 3.6 (3.2-5.2) gm/dL Globulin 2.9 (2.2-3.7) gm/dL Albumin/Globulin Ratio 1.2 (1.0-2.3) 08/21/22 08/21/22 Range/Units 15:55 16:15 WBC (4.5-11.0) K/mcL RBC (3.59-5.38) M/mcL Hgb (11.2-15.7) g/dL Hct (34.1-44.9) % POC Hct (36-48) MCV (80.0-100.0) fL MCH (26.0-34.0) pg MCHC (31.0-36.0) g/dL RDW (11.5-14.5) % Plt Count (140-440) K/mcL MPV (8.8-12.5) fL Immature Gran % (Auto) (0.0-0.5) % Neut % (Auto) (38.0-78.0) % Lymph % (Auto) (15.5-49.0) % Sharkey % (Auto) (1.0-12.0) % Eos % (Auto) (0.0-7.0) % Baso % (Auto) (0.0-2.0) % Lymph # (Auto) (1.50-4.80) K/mcL Sharkey # (Auto) (0.10-0.90) K/mcL Eos # (Auto) (0.00-0.70) K/mcL Baso # (Auto) (0.00-0.30) K/mcL Immature Gran # (0.00-0.05) K/mcl Absolute Neutrophils (1.80-8.00) K/mcL ABG Methemoglobin 0.3 L (0.4-1.5) % VBG pH 6.85 L* (7.32-7.42) U VBG pCO2 18.7 L* (41.0-51.0) mmHg VBG pO2 132.3 H (25.0-40.0) mmHg VBG HCO3 3.2 L* (24.0-28.0) mmol/L VBG Total CO2 3.7 L* (25.0-29.0) mmol/L VBG O2 Saturation 90.4 H (40.0-70.0) % VBG Base Excess -30 L (-2-3) Carboxyhemoglobin 6.7 H (0.0-1.5) % THgb Total Hemoglobin 13.3 (12.0-15.0) gm/Dl POC Sodium (133-145) Sodium (133-145) mmol/L POC Potassium (3.3-5.1) Potassium (3.3-5.1) mmol/L POC Chloride (96-108) Chloride (96-108) mmol/L Carbon Dioxide (22-30) mmol/L POC Total CO2 (22-30) Anion Gap (8.0-16.0) POC BUN (6-20) BUN (8-23) mg/dL Creatinine (0.6-1.1) mg/dL POC Creatinine (0.6-1.2) GFR Calculation Glucose (70-105) mg/dL POC Glucose (70-105) Calcium (8.6-10.4) mg/dL POC WB Ioniz Calcium (1.16-1.32) Phosphorus 8.1 H* (2.5-4.5) mg/dL Total Bilirubin (0.1-1.0) mg/dL AST (<32) U/L ALT (<40) U/L Alkaline Phosphatase (39-117) U/L Total Protein (5.9-8.4) gm/dL Albumin (3.2-5.2) gm/dL Globulin (2.2-3.7) gm/dL Albumin/Globulin Ratio (1.0-2.3) Discharge Plan Patient/Caregiver Discharge Instructions Pt seen by SENIOR BILLING CONSULTANT/PA only: Yes Clinical Impression: DKA, type 2 Patient Disposition: Xfer As Inpt ([facility]) Condition: Fair Discharge Date/Time: 08/21/22 17:23
[2022-08-21 16:38] LABS: Basophils # (Auto) 0.11 K/mcL (0.00-0.30); Basophils % (Auto) 0.7 % (0.0-2.0); Eosinophils # (Auto) 0.06 K/mcL (0.00-0.70); Eosinophils % (Auto) 0.4 % (0.0-7.0); Hematocrit 42.3 % (34.1-44.9); Hemoglobin 12.9 g/dL (11.2-15.7); Lymphocytes # (Auto) 2.25 K/mcL (1.50-4.80); Mean Cell Volume 102.7 fL (80.0-100.0); Mean Corpuscular HGB Conc 30.5 g/dL (31.0-36.0); Monocytes # (Auto) 0.67 K/mcL (0.10-0.90); Monocytes % (Auto) 4.2 % (1.0-12.0); Neutrophils % (Auto) 78.9 % (38.0-78.0); Platelet Count 277 K/mcL (140-440); RBC 4.12 M/mcL (3.59-5.38); Red Cell Distribution Width 14.9 % (11.5-14.5)
[2022-08-21 16:41] LABS: ABG Methemoglobin 0.3 % (0.4-1.5); Total Hemoglobin 13.3 gm/Dl (12.0-15.0); VBG Base Excess -30 (-2-3); VBG HCO3 3.2 mmol/L (24.0-28.0); VBG Oxygen Saturation 90.4 % (40.0-70.0); VBG PCO2 18.7 mmHg (41.0-51.0); VBG PH 6.85 U (7.32-7.42); VBG PO2 132.3 mmHg (25.0-40.0); VBG Total CO2 3.7 mmol/L (25.0-29.0)
[2022-08-21] MEDS: INSULIN REGULAR, HUMAN 50 UNIT in 0.9 % SODIUM CHLORIDE 99.5 ML IV SCH ×2 (17:00→21:32)
--- NOTE | 2022-08-21 17:08 | Internal Med History&Physical ---
HPI History of Present Illness Patient information: Note initiated : 08/21/22 at 5:05 pm Service Date, if different from initiated Date: [] Patient: Tennille Castillo a 77 y/o F admitted on for shortness of breath, elevated blood sugar. Chief Complaint: [extreme weakness, no appetite, shortness of breath] Chief complaint: extreme weakness, no appetite, shortness of breath History of present illness: Ms. Castillo is a 77 year old F history of type 2 diabetes mellitus, chronic back pain from compression fracture of thoracic vertebra, hypothyroidism, essential tremor, dyslipidemia, presenting with a 4-day history of general weakness, loss of appetite, short of breath. She was recently hospitalized in our facility for the treatment of diabetic ketoacidosis and was being discharged home 4 days ago. She claims that since she got back home, she is continue to feel extremely weak, loss of appetite, as well as shortness of breath. She further stated that she did not have her home health physical therapy sections since she was being discharged home. Labs showing leukocytosis with WBCs 16.0. Blood glucose level greater than 700. VBH pH 6.85, bicarb 3.2, anion gap 19. Serum ketone pending. Admission request was called for another round of diabetic ketoacidosis associated with type 2 diabetes mellitus. Pending chest x-ray and urinalysis to rule out infections as trigger of diabetic ketoacidosis. Constitutional Constitutional: Present weakness; Absent chills, excessive sweating, fatigue or fever(s) Additional comments: Loss of appetite EENT Eyes: Absent blurry vision, change in vision, loss of vision or other visual disturbances Ears: Absent decreased hearing or tinnitus Nose, mouth and throat: Absent abnormal hearing, dry mouth, headache(s), nasal congestion or sore throat Cardiovascular Cardiovascular: Absent chest pain, chest pain at rest, edema, irregular heart rhythm or palpatations Respiratory Respiratory: Present dyspnea; Absent cough or wheezing Gastrointestinal Gastrointestinal: Absent abdominal pain, constipation, diarrhea, nausea or vomiting Musculoskeletal Musculoskeletal: Absent back pain, deformity, limited range of motion, muscle cramps, muscle weakness or numbness Integumentary Integumentary: Absent lesions, rash or wounds Neurological Neurological: Absent focal weakness, headache(s) or numbness Psychiatric Psychiatric: Absent anxiety, depression or hallucinations PFSH PFSH All Active Problems (Updated 08/21/22 @ 17:12 by Devon Mcdaniel MD) Essential hypertension (Acute) Mixed dyslipidemia (Acute) Hyperkalemia (Acute) Compression fracture of body of thoracic vertebra (Acute) Pain in rib (Acute) Hyperglycemia due to type 2 diabetes mellitus (Acute) Chronic pain syndrome (Acute) DKA, type 2 (Acute) Hypoglycemia (Acute) DKA (diabetic ketoacidosis) (Acute) Acute hyponatremia (Acute) Acute hyperkalemia (Acute) Acidosis, lactic (Acute) Metabolic acidosis (Acute) Blood in urine (Chronic) Diabetic keto-acidosis (Chronic) Pseudohyponatremia (Chronic) DKA (diabetic ketoacidosis) (Chronic) Hypomagnesemia (Chronic) Generalized weakness (Chronic) Acute dehydration (Chronic) Diabetic ketosis (Chronic) Acute dyspnea (Chronic) Obstructive sleep apnea (Chronic) DKA (diabetic ketoacidosis) (Chronic) Vulvovaginitis due to yeast (Chronic) Sleepwalking (Chronic) REM sleep behavior disorder (Chronic) Hypersomnia (Chronic) Snoring (Chronic) Tremor (Chronic) Neurofibromatosis 2 (Chronic) Trigger finger (Chronic) Sleep disturbance (Chronic) Arthralgia (Chronic) Pancreatitis (Chronic) Macular degeneration (Chronic) Hepatitis A (Chronic) Glaucoma (Chronic) Fibromyalgia (Chronic) DDD (degenerative disc disease), cervical (Chronic) Diabetic retinopathy (Chronic) Opioid dependence (Chronic) Stress (Chronic) Hard of hearing (Chronic) Multiple environmental allergies (Chronic) Fracture of lumbar spine (Chronic) Compression fracture of lumbosacral spine (Chronic) Abdominal pain (Chronic) Chronic pancreatitis (Chronic) Liver mass (Chronic) Cirrhosis of liver (Chronic) Constipation (Chronic) Neuropathy (Chronic) Chronic pain (Chronic) Essential tremor (Chronic) Bimalleolar ankle fracture (Chronic) Chronic bronchitis with acute exacerbation (Chronic) Dehydration (Chronic) Epistaxis (Chronic) Hypoxia (Chronic) Anterior epistaxis (Chronic) Candidiasis of mouth (Chronic) DKA (diabetic ketoacidosis) (Chronic) Conjunctivitis (Chronic) Bronchitis (Chronic) Dehiscence of closure of skin (Chronic) Anemia (Chronic) Elevated liver enzymes (Chronic) 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) Radiculopathy, sacral and sacrococcygeal region (Chronic) Radiculopathy, lumbosacral region (Chronic) Insomnia (Chronic) Levator syndrome (Chronic) Sacrococcygeal pain (Chronic) History of surgery (Chronic) Hypothyroidism (Chronic) Chronic bronchitis (Chronic) 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) Depression (Chronic) Anxiety (Chronic) Hypertension (Chronic) Osteoporosis (Chronic) Rectal pain (Chronic) Low back pain (Chronic) Pain in thoracic spine (Chronic) Age-related osteoporosis with current pathological fracture, vertebra(e), initial encounter for fracture (Chronic) Medical History Abdominal pain Acute exacerbation of chronic obstructive airways disease Age-related osteoporosis with current pathological fracture, vertebra(e), initial encounter for fracture Anemia Anterior epistaxis Anxiety Arthralgia Bilateral primary osteoarthritis of hip Bimalleolar ankle fracture Blood in urine Bronchitis Candidiasis of mouth Chronic bronchitis with acute exacerbation Chronic pain Chronic pancreatitis Cirrhosis of liver Compression fracture of lumbosacral spine Conjunctivitis Constipation DDD (degenerative disc disease), cervical Dehiscence of closure of skin Dehydration Depression Diabetic retinopathy DKA (diabetic ketoacidosis) Elevated liver enzymes Epistaxis Essential tremor Fibromyalgia Fracture of lumbar spine Glaucoma Hard of hearing Hepatitis A Hyperglycemia due to type 2 diabetes mellitus Hypersomnia Hypertension Hypothyroidism Hypoxia Insomnia Levator syndrome Lipomatosis Liver mass Low back pain Macular degeneration Multiple environmental allergies Neurofibromatosis 2 Neuropathy Obstructive sleep apnea Opioid dependence Osteoporosis Pain in thoracic spine Pancreatitis Radiculopathy, lumbosacral region Radiculopathy, sacral and sacrococcygeal region Rectal pain REM sleep behavior disorder Sacrococcygeal pain Sleep disturbance Sleepwalking Snoring Stress Tremor Trigger finger Surgical History History of appendectomy (~1969) History of arthroplasty of right ankle (~2017) History of cataract surgery (~2003) History of cholecystectomy History of colonoscopy (~06/26/18) History of decompression of median nerve (~2003) History of dilation and curettage History of eye surgery (~2005) Glaucoma History of hand surgery (~2003) Release of trigger finger, right History of left breast biopsy (~2005) History of oophorectomy History of surgery Vertebroplasty T12 w/sed 09/28/19 History of surgery retinopathy laser Stereotactic destruction of lesion using gamma radiation-2004 History of surgery on wrist History of tonsillectomy and adenoidectomy (~1969) Family History Mother Heart disease Fibromyalgia Father Malignant melanoma Malignant tumor of prostate Leukemia Social History (Updated 02/22/22 @ 15:40 by Gi Vernon) lives independently: Yes marital status: education level: college occupational status: retired pets and animals: No other: 2 children physical activity: none smoking status: Never smoker alcohol intake frequency: does not drink substance use type: does not use seatbelt use: always working smoke detector in home: Yes carbon monox detector in home: Yes MEDS/ALLERGIES Home Medications and Allergies Home Medications Medication Instructions Recorded Confirmed Type [id number] 40,000 cap PO TID 06/01/21 08/15/22 History 40,000-126,000-168,000 unit capsule, delay rel (Zenpep) multivit [id number] 186 1 tab PO DAILY 07/15/21 08/15/22 History [Hair, Skin and Nails Advanced] trazodone 100 mg tablet 100 mg PO HSP PRN insomnia 08/22/21 08/15/22 History acyclovir 400 mg tablet 1 tab PO BID 09/21/21 08/15/22 History gabapentin 800 mg tablet 1 tab PO TID 09/21/21 08/15/22 History cholecalciferol (vitamin D3) 50 50 mcg PO DAILY 12/04/21 08/15/22 History mcg (2,000 unit) capsule (Vitamin D3) zinc 50 mg tablet 50 mg PO DAILY 12/04/21 08/15/22 History hyoscyamine sulfate 0.125 mg 0.125 mg PO Q6H PRN Abdominal 02/19/22 08/15/22 Rx sublingual tablet Discomfort #20 tabs insulin aspart U-100 100 unit/mL See Protocol subcut ACHS 04/23/22 08/15/22 History (3 mL) subcutaneous pen (Novolog Flexpen U-100 Insulin aspart) levothyroxine 100 mcg tablet 1 tab PO QDAY 04/23/22 08/15/22 History levothyroxine 25 mcg tablet 1 tab PO QAM 04/23/22 08/15/22 History propranolol 10 mg tablet 1 tab PO TID 04/23/22 08/15/22 History atorvastatin 40 mg tablet 1 tab PO QDAY 05/06/22 08/15/22 History duloxetine 30 mg capsule,delayed 1 cap PO QDAY 05/06/22 08/15/22 History release methocarbamol 500 mg tablet 500 mg PO TIDP PRN Muscle Spasm 05/08/22 08/15/22 Rx #30 tabs oxycodone 5 mg tablet 5 mg PO Q4HP PRN Per Pain Protocol 05/08/22 08/15/22 Rx #20 tabs ibuprofen 200 mg tablet 200 mg PO Q6H PRN Pain 08/15/22 08/15/22 History insulin degludec 100 unit/mL 25 unit subcut AC 08/16/22 08/16/22 History subcutaneous solution (Tresiba U-100 Insulin) insulin degludec 100 unit/mL 15 unit (0.15 mL) subcut HS #10 mL 08/17/22 Rx subcutaneous solution (Tresiba U-100 Insulin) Allergies Allergy/AdvReac Type Severity Reaction Status Date / Time cephalexin [From Keflex] Allergy Intermediate Swelling Verified 08/15/22 20:56 lidocaine Allergy Intermediate Blister Verified 08/15/22 20:56 Penicillins Allergy Mild Rash Verified 08/15/22 20:56 Anistreplase [From Eminase] Allergy Unknown UNKNOWN Verified 08/15/22 20:56 fenugreek Allergy Unknown UNKNOWN Verified 08/15/22 20:56 codeine AdvReac Mild Itching Verified 08/15/22 20:56 Erythromycin Base AdvReac Mild Itching Verified 08/15/22 20:56 Nortriptyline AdvReac Mild Nausea Verified 08/15/22 20:56 promethazine AdvReac Mild Fainting Verified 08/15/22 20:56 trulicity AdvReac Intermediate Other Uncoded 12/04/21 06:40 EXAM Constitutional Vitals: Pulse Resp BP Pulse Ox O2 Del Method 93 H 17 119/45 100 08/21/22 17:00 08/21/22 17:00 08/21/22 17:00 08/21/22 17:00 08/21/22 14:31 General appearance: cooperative and moderate distress Head Head exam: Present atraumatic and normocephalic Eye Eye exam: Present EOMI and PERRL ENT ENT exam: Present mucous membranes moist, normal exam and normal external ear exam Neck Neck exam: Present normal inspection; Absent lymphadenopathy, tenderness or thyromegaly Respiratory Respiratory exam: Absent accessory muscle use, respiratory distress or wheezes Cardiovascular Cardiovascular exam: Present normal rate and rhythm; Absent JVD GI/Abdominal GI/Abdominal exam: Present normal bowel sounds and soft; Absent organomegaly or tenderness Extremities Exam Extremities exam: Present full ROM, normal capillary refill and normal inspection; Absent tenderness Neurological Exam Neurological exam: Present alert, CN II-XII intact and oriented X3; Absent motor sensory deficit Additional comments: Increased hand tremor Psychiatric Psychiatric exam: Present normal affect and normal mood; Absent anxious or depressed Skin Skin exam: Present dry and intact DATA Data Completed and Pending Labs: Labs from last 24 hours 08/21/22 08/21/22 08/21/22 16:15 15:55 15:38 WBC 16.0 H RBC 4.12 Hgb 12.9 Hct 42.3 POC Hct MCV 102.7 H MCH 31.3 MCHC 30.5 L RDW 14.9 H Plt Count 277 MPV 11.0 Immature Gran % (Auto) 1.8 H Neut % (Auto) 78.9 H Lymph % (Auto) 14.0 L [place] % (Auto) 4.2 Eos % (Auto) 0.4 Baso % (Auto) 0.7 Lymph # (Auto) 2.25 [place] # (Auto) 0.67 Eos # (Auto) 0.06 Baso # (Auto) 0.11 Immature Gran # 0.29 H Absolute Neutrophils 12.66 H ABG Methemoglobin 0.3 L VBG pH 6.85 L* VBG pCO2 18.7 L* VBG pO2 132.3 H VBG HCO3 3.2 L* VBG Total CO2 3.7 L* VBG O2 Saturation 90.4 H VBG Base Excess -30 L Carboxyhemoglobin 6.7 H Total Hemoglobin 13.3 POC Sodium Sodium POC Potassium Potassium POC Chloride Chloride Carbon Dioxide POC Total CO2 Anion Gap POC BUN BUN Creatinine POC Creatinine GFR Calculation Glucose POC Glucose Calcium POC WB Ioniz Calcium Phosphorus Pending Total Bilirubin AST ALT Alkaline Phosphatase Total Protein Albumin Globulin Albumin/Globulin Ratio 08/21/22 08/21/22 14:42 14:42 WBC RBC Hgb Hct POC Hct 40.0 MCV MCH MCHC RDW Plt Count MPV Immature Gran % (Auto) Neut % (Auto) Lymph % (Auto) [place] % (Auto) Eos % (Auto) Baso % (Auto) Lymph # (Auto) [place] # (Auto) Eos # (Auto) Baso # (Auto) Immature Gran # Absolute Neutrophils ABG Methemoglobin VBG pH VBG pCO2 VBG pO2 VBG HCO3 VBG Total CO2 VBG O2 Saturation VBG Base Excess Carboxyhemoglobin Total Hemoglobin POC Sodium 125 L Sodium Pending POC Potassium 5.9 H* Potassium Pending POC Chloride 101 Chloride Pending Carbon Dioxide Pending POC Total CO2 5.0 L* Anion Gap Pending POC BUN 29 H BUN Pending Creatinine Pending POC Creatinine 1.2 GFR Calculation Pending Glucose Pending POC Glucose > 700 H* Calcium Pending POC WB Ioniz Calcium 1.16 Phosphorus Total Bilirubin Pending AST Pending ALT Pending Alkaline Phosphatase Pending Total Protein Pending Albumin Pending Globulin Pending Albumin/Globulin Ratio Pending A/P Assessment and plan (1) DKA, type 2: Status: Acute (2) Compression fracture of body of thoracic vertebra: Status: Acute (3) Hyperkalemia: Status: Acute (4) Hypothyroidism: Status: Chronic (5) Mixed dyslipidemia: Status: Acute (6) Essential tremor: Status: Chronic Narrative A/P Narrative: Assessment and Plans: 1. Diabetic ketoacidosis associated with type 2 diabetes mellitus: Inpatient ICU CXR and UA to rule out infections as trigger of DKA; patient claims to be complaint to her medications including insulin NPO with IV fluid as following: NS@250cc/hr when anion gap is elevated (>14) and blood glucose >=200 D5 1/2NS@2550cc/hr when anion gap is elevated (>14) and blood glucose <200 Insulin drip according to DKA protocol Neurotin HgA1c Accu Check q1hr BMP q6hr clinical nurse educator referral 2. Chronic back pain secondary to compression fracture of thoracic vertebra: Tylenol Oxycodone Morphine IV Physical therapy evaluation and treatment 3. Hypothyroidism: Continue thyroid replacement therapy 4. Mixed dyslipidemia: Continue Lipitor 5. Essential tremor: Propranolol 6. Hyperkalemia: Calcium gluconate Insulin drip according to DKA protocol BMP q6hr to trend serum potassium level When serum potassium level trended down to low normal, consider adding potassium chloride into the IV fluid GI ppx: not currently indicated DVT ppx: Lovenox Code status: Full Prognosis: extremely guarded Disposition: inpatient ICU; PT Critical Care Time: 60min Time Spent With Patient Time: Total time spent is greater than 50% in coordination of care (as documented) at patient's floor/unit and/or counseling patient: Total time spent with greater than 50% in coordination of care (as documented) at patient's floor/unit and/or counseling patient:: 50 - 70 minutes Critical Care Time: Yes Total Critical Care Time: 60
[2022-08-21] MEDS ORDERED: CALCIUM GLUCONATE 4.65 MEQ/10 ML VIAL IV ONE (17:10)
--- NOTE | 2022-08-21 17:17 | XRay Report ---
INDICATION: SOB TECHNIQUE: AP portable upright chest x-ray COMPARISON: Previous examinations dated 04/23/2022, 04/20/2022 FINDINGS: Lungs:Lungs are negative. No focal pulmonary parenchymal infiltrate or mass Heart, vascular:No significant cardiomegaly. Pulmonary vascularity is normal. No pulmonary edema or pulmonary congestion Mediastinum, leroy:No mediastinal widening. No hilar mass Pleura:No pleural fluid. No pleural-based mass or calcification Skeletal:Negative. IMPRESSION: 1. Negative AP chest x-ray 2. No interval change Interpreted and Authenticated by: Will Peck 08/21/22
[2022-08-21 17:26] LABS: ALT/SGPT 21 U/L (<40); AST/SGOT 20 U/L (<32); Albumin 3.6 gm/dL (3.2-5.2); Albumin/Globulin Ratio 1.2 (1.0-2.3); Alkaline Phosphatase 166 U/L (39-117); Bilirubin,Total 0.4 mg/dL (0.1-1.0); Blood Urea Nitrogen 25 mg/dL (8-23); Calcium 9.1 mg/dL (8.6-10.4); Carbon Dioxide 2 mmol/L (22-30); Chloride 84 mmol/L (96-108); Globulin 2.9 gm/dL (2.2-3.7); Glomerular Filtration Rate 31; Glucose 996 mg/dL (70-105)
[2022-08-21] MEDS ORDERED: IPRATROPIUM/ALBUTEROL 3 ML AMPUL.NEB NEB PRN (17:27)
[2022-08-21] MEDS ORDERED: ONDANSETRON 4 MG/2 ML VIAL IV PRN (17:27)
[2022-08-21] MEDS ORDERED: PROMETHAZINE 25 MG/ML VIAL IV PRN (17:27)
[2022-08-21] MEDS: 0.9 % SODIUM CHLORIDE 1,000 ML IV SCH ×2 (17:33→21:27)
[2022-08-21] MEDS: DEXTROSE 5%-1/2NS 1,000 ML IV SCH (17:34)
[2022-08-21] MEDS: CALCIUM GLUCONATE 4.65 MEQ in DEXTROSE 5% IN WATER 50 ML IV SCH ×2 (17:44→18:25)
[2022-08-21] MEDS ORDERED: INSULIN REGULAR, HUMAN 1 UNIT/0.01 ML UNIT IV SCH (17:45)
[2022-08-21] MEDS ORDERED: INSULIN REGULAR, HUMAN 1 UNIT/0.01 ML UNIT IV PRN (18:27)
[2022-08-21] MEDS ORDERED: INSULIN REGULAR, HUMAN 1 UNIT/0.01 ML UNIT ONE (19:14)
[2022-08-21] MEDS: morphine 4 MG/ML VIAL IV PRN (20:21)
[2022-08-21 20:56] LABS: Appearance,Urine CLEAR (Clear); Bacteria,Urine 0 /hpf (0); Bilirubin,Urine NEGATIVE (Negative); Color,Urine LT. YELLOW; Culture Indicated,Urine No; Glucose,Urine (UA) >=1000 mg/dL (Negative); Ketones,Urine >=80 mg/dL (Negative); Leukocyte Esterase,Urine NEGATIVE /uL (Negative); Nitrate,Urine NEGATIVE (Negative); PH,Urine 5.5 (5.0-9.0); Protein,Urine TRACE mg/dL (Negative); Specific Gravity,Urine 1.025 (1.000-1.035); Urine Blood SMALL ery/mcL (Negative); Urine Hyaline Cast < 1 /lph (0-2); Urine RBC 0 /hpf (0-3); Urine Squamous Epithelial Cell < 1 /hpf (0-4); Urine WBC < 1 /hpf (0-4); Urobilinogen,Urine Normal
[2022-08-21] MEDS ORDERED: PROPRANOLOL 10 MG TABLET PO SCH (21:00)
[2022-08-21 21:35] LABS: ALT/SGPT 17 U/L (<40); AST/SGOT 16 U/L (<32); Albumin 3.1 gm/dL (3.2-5.2); Albumin/Globulin Ratio 1.2 (1.0-2.3); Alkaline Phosphatase 144 U/L (39-117); Bilirubin,Direct < 0.2 mg/dL (0-0.3); Bilirubin,Total 0.3 mg/dL (0.1-1.0); Blood Urea Nitrogen 24 mg/dL (8-23); Calcium 7.6 mg/dL (8.6-10.4); Carbon Dioxide 5 mmol/L (22-30); Chloride 103 mmol/L (96-108); Globulin 2.5 gm/dL (2.2-3.7); Glomerular Filtration Rate 44; Glucose 508 mg/dL (70-105); Lactate Dehydrogenase 218 U/L (135-225); Phosphorous 4.3 mg/dL (2.5-4.5); Triglycerides 344 mg/dL (<150); Uric Acid 8.5 mg/dL (2.5-8.0)
[2022-08-21] MEDS: ACYCLOVIR 400 MG TABLET PO SCH (21:43)
[2022-08-21] MEDS: GABAPENTIN 400 MG CAPSULE PO SCH (21:43)
[2022-08-21] MEDS: DOCUSATE SODIUM 100 MG CAPSULE PO SCH (21:43)
[2022-08-21 21:51] LABS: ABG Methemoglobin 0.4 % (0.4-1.5); Total Hemoglobin 12.7 gm/Dl (12.0-15.0); VBG Base Excess -23 (-2-3); VBG Oxygen Saturation 74.8 % (40.0-70.0); VBG PCO2 26.9 mmHg (41.0-51.0); VBG PH 7.03 U (7.32-7.42); VBG Total CO2 7.8 mmol/L (25.0-29.0)
[2022-08-21 22:35] LABS: Beta Hydroxybutyrate 8.81 mmol/L (<0.27)
[2022-08-21] MEDS: 0.9 % SODIUM CHLORIDE 10 ML SYRINGE IV SCH (22:39)
[2022-08-21] MEDS: NACL 0.9% W/KCL 20MEQ 1,000 ML IV SCH (23:05)
[2022-08-22 00:23] LABS: ABG Methemoglobin 0.3 % (0.4-1.5); Total Hemoglobin 12.7 gm/Dl (12.0-15.0); VBG Base Excess -17 (-2-3); VBG HCO3 10.8 mmol/L (24.0-28.0); VBG Oxygen Saturation 78.1 % (40.0-70.0); VBG PCO2 32.1 mmHg (41.0-51.0); VBG PH 7.14 U (7.32-7.42); VBG PO2 45.9 mmHg (25.0-40.0); VBG Total CO2 11.7 mmol/L (25.0-29.0)
[2022-08-22] MEDS: DEXTROSE 5%-1/2NS 1,000 ML IV SCH (00:24)
[2022-08-22] MEDS ORDERED: INSULIN REGULAR, HUMAN 1 UNIT/0.01 ML UNIT ONE (01:12)
[2022-08-22] MEDS: morphine 4 MG/ML VIAL IV PRN (01:17)
[2022-08-22] MEDS: INSULIN REGULAR, HUMAN 50 UNIT in 0.9 % SODIUM CHLORIDE 99.5 ML IV SCH (02:11)
[2022-08-22 02:36] LABS: Blood Urea Nitrogen 26 mg/dL (8-23); Calcium 8.9 mg/dL (8.6-10.4); Carbon Dioxide 10 mmol/L (22-30); Chloride 102 mmol/L (96-108); Glomerular Filtration Rate 40; Glucose 223 mg/dL (70-105)
[2022-08-22] MEDS ORDERED: VANCOMYCIN 1,000 MG in 0.9 % SODIUM CHLORIDE 250 ML IV SCH (04:30)
[2022-08-22] MEDS ORDERED: MEROPENEM 0.5 GM in 0.9 % SODIUM CHLORIDE 50 ML IV SCH (04:30)
[2022-08-22] MEDS ORDERED: NOREPINEPHRINE BITARTRATE 4 MG/4 ML VIAL IV ONE (04:31)
[2022-08-22] MEDS: NOREPINEPHRINE BITARTRATE 8 MG in 0.9 % SODIUM CHLORIDE 242 ML IV SCH (04:35)
[2022-08-22] MEDS: DEXTROSE 5%-1/2NS W/20MEQ KCL 1,000 ML IV SCH ×4 (05:59→15:48)
[2022-08-22] MEDS ORDERED: DEXTROSE 50% 50 ML VIAL IV ONE (06:12)
[2022-08-22] MEDS ORDERED: DEXTROSE 50% 50 ML SYRINGE IV ONE ×2 (06:13→06:30)
[2022-08-22] MEDS: MEROPENEM 1 GM in 0.9 % SODIUM CHLORIDE 50 ML IV SCH (06:16)
[2022-08-22] MEDS: 0.9 % SODIUM CHLORIDE 10 ML SYRINGE IV SCH ×3 (06:18→20:16)
[2022-08-22] MEDS: NACL 0.9% W/KCL 20MEQ 1,000 ML IV SCH (06:24)
[2022-08-22 08:02] LABS: ABG Methemoglobin 0 % (0.4-1.5); Total Hemoglobin 13.6 gm/Dl (12.0-15.0); VBG Base Excess -10 (-2-3); VBG HCO3 14.5 mmol/L (24.0-28.0); VBG Oxygen Saturation 85.1 % (40.0-70.0); VBG PCO2 27.5 mmHg (41.0-51.0); VBG PH 7.34 U (7.32-7.42); VBG PO2 129.7 mmHg (25.0-40.0); VBG Total CO2 15.3 mmol/L (25.0-29.0)
[2022-08-22 08:18] LABS: Basophils # (Auto) 0.02 K/mcL (0.00-0.30); Basophils % (Auto) 0.2 % (0.0-2.0); Eosinophils # (Auto) 0.12 K/mcL (0.00-0.70); Eosinophils % (Auto) 1.1 % (0.0-7.0); Hematocrit 33.8 % (34.1-44.9); Hemoglobin 11.4 g/dL (11.2-15.7); Lymphocytes # (Auto) 2.14 K/mcL (1.50-4.80); Mean Cell Volume 90.6 fL (80.0-100.0); Mean Corpuscular HGB Conc 33.7 g/dL (31.0-36.0); Mean Platelet Volume 9.9 fL (8.8-12.5); Monocytes # (Auto) 0.89 K/mcL (0.10-0.90); Monocytes % (Auto) 7.9 % (1.0-12.0); Neutrophils % (Auto) 71.3 % (38.0-78.0); Platelet Count 205 K/mcL (140-440); RBC 3.73 M/mcL (3.59-5.38); Red Cell Distribution Width 14.4 % (11.5-14.5); WBC 11.2 K/mcL (4.5-11.0)
[2022-08-22] MEDS ORDERED: SUCRETS LOZENGE PO PRN (08:36)
[2022-08-22] MEDS ORDERED: PHENOL/SODIUM PHENOLATE 5 SPRAY BOTTLE 180ML SSP PRN (08:36)
[2022-08-22] MEDS: LIPASE/PROTEASE/AMYLASE 1 CAP CAPSULE PO SCH ×3 (08:38→17:11)
--- NOTE | 2022-08-22 08:42 | Internal Med Progress Note ---
SUBJECTIVE Subjective Patient information: Note initiated : 08/22/22 at 8:38 am Service Date, if different from initiated Date: [] Patient: Tennille Castillo a 77 y/o F admitted on 08/21/22 for shortness of breath, elevated blood sugar. Chief Complaint: [] Interval history: Ms. Castillo is a 77 year old F history of type 2 diabetes mellitus, chronic back pain from compression fracture of thoracic vertebra, hypothyroidism, essential tremor, dyslipidemia, presenting with a 4-day history of general weakness, loss of appetite, short of breath. She was recently hospitalized in our facility for the treatment of diabetic ketoacidosis and was being discharged home 4 days ago. She claims that since she got back home, she is continue to feel extremely weak, loss of appetite, as well as shortness of breath. She further stated that she did not have her home health physical therapy sections since she was being discharged home. Labs showing leukocytosis with WBCs 16.0. Blood glucose level greater than 700. VBH pH 6.85, bicarb 3.2, anion gap 19. Serum ketone pending. Admission request was called for another round of diabetic ketoacidosis associated with type 2 diabetes mellitus. Pending chest x-ray and urinalysis to rule out infections as trigger of diabetic ketoacidosis. 08/22: Patient's blood pressure dropped to 80s over 40s mmHg earlier this morning. Patient still on insulin drip at 1 unit/hr, and IV fluid D5 1/2NS w/ KCl 20mEq @150cc/hr. Still on Levophed drip, currently at 7 mcg/min. Morning labs pending. Latest blood glucose level 178. Patient is still complaining of severe general weakness. She is coming of shortness of breath. She is complaining of nonproductive cough and respiratory wheezings. She is complaining of shaking chills. She is complaining of sore throat. Blood culture x2 collected. CEPHEID for influenza and CoVID pending. Will also order rapid strep test. Started on Vancomycin and Meropenem (due to penicillin allergy) as empiric broad spectrum antibiotics for clinical sepsis. Continue NPO status with insulin drip, IV fluid infusion, Levophed drip, and the aforementioned antibiotics. Still extremely guarded. Stay in ICU. Constitutional Vitals: Vital Signs Temp Pulse Resp BP Pulse Ox O2 Del Method 37.2 C 93 H 16 113/68 99 08/22/22 08:11 08/21/22 17:00 08/22/22 08:11 08/22/22 08:11 08/22/22 08:11 08/22/22 08:11 Period Temp Pulse Resp BP Sys/Rosario Pulse Ox O2 Del Method O2 Flow Rate Last 24 Hr 33.8 C-37.4 C 93-99 8-22 81-134/39-71 95-100 Room Air-Room Air Intake and Output 08/21/22 08/22/22 08/22/22 19:59 03:59 11:59 Intake Total 2096 1768 623 Output Total 1100 305 304 Balance 996 1463 319 Weight 66.542 kg 63.412 kg Intake & Output: Intake & Output 08/21/22 08/22/22 08/22/22 19:59 03:59 11:59 Intake Total 2096 1768 623 Output Total 1100 305 304 Balance 996 1463 319 Weight 66.542 kg 63.412 kg Intake: IV 2095 1768 383 Sodium Chloride 0.9% 1,000 ml @ 2000 1383 250 mls/hr IV .Q4H PEG Rx#: [id number] Calcium Gluconate 4.65 Meq In 60 60 Dextrose 5% in Water 50 ml @ 100 mls/hr IV 1715,1815 PEG Rx# :[id number] HumuLIN R 50 UNIT In Sodium 36 148 23 Chloride 0.9% 99.5 ml @ Per Protocol IV DUR PEG Rx#: [id number] Merrem 1 gm In Sodium Chloride 50 0.9% 50 ml @ 100 mls/hr IV Q24H PEG Rx#:[id number] NaCl 0.9% W/KCl 20Meq 1000ML 1, 177 000 ml @ 150 mls/hr IV .Q6H40M PEG Rx#:[id number] Levophed 8 mg In Sodium 60 Chloride 0.9% 242 ml @ 10 MCG/ MIN 18.75 mls/hr IV Q14H PEG Rx #:[id number] Vancomycin 1,000 mg In Sodium 250 Chloride 0.9% 250 ml @ 250 mls/ hr IV Q12H PEG Rx#:[id number] Oral 240 Output: Urine Catheter Amount 305 304 Void Amount 1100 Other: Urine Appearance Clear Clear Clear Uretheral ([place]azar) Clear Urine Color Dark Yellow Dark Yellow Yellow Uretheral ([place]cazar) Yellow Urine Odor Strong Normal Normal General appearance: average body habitus, cooperative and mild distress Head Head exam: Present atraumatic and normal inspection Eye Eye exam: Present normal appearance ENT ENT exam: Present mucous membranes moist, normal exam and normal external ear exam Neck Neck exam: Present normal inspection Respiratory Respiratory exam: Present normal respiratory exam Cardiovascular Cardiovascular exam: Present normal rate and rhythm GI/Abdominal GI/Abdominal exam: Present normal bowel sounds Back Exam Back exam: Present normal inspection Neurological Exam Neurological exam: Present alert and oriented X3 Skin Skin exam: Present intact and warm OBJ DATA Labs CBC & Chem 7: 08/22/22 07:40 08/21/22 23:49 Labs: Abnormal Lab Results 08/22/22 08/22/22 08/21/22 07:40 07:39 23:57 WBC 11.2 H Hct 33.8 L MCV MCHC RDW Immature Gran % (Auto) Neut % (Auto) Lymph % (Auto) Immature Gran # 0.06 H Absolute Neutrophils 8.01 H ABG Methemoglobin 0 L 0.3 L VBG pH 7.14 L* VBG pCO2 27.5 L 32.1 L VBG pO2 129.7 H 45.9 H VBG HCO3 14.5 L 10.8 L* VBG Total CO2 15.3 L 11.7 L VBG O2 Saturation 85.1 H 78.1 H VBG Base Excess -10 L -17 L Carboxyhemoglobin 13.3 H 6.0 H POC Sodium Sodium POC Potassium Potassium Chloride Carbon Dioxide POC Total CO2 Anion Gap POC BUN BUN Creatinine Glucose POC Glucose Hemoglobin A1c Uric Acid Calcium Phosphorus GGT Alkaline Phosphatase Total Protein Albumin Triglycerides Beta-Hydroxybutyrate Urine Protein Urine Glucose (UA) Urine Ketones Urine Occult Blood 08/21/22 08/21/22 08/21/22 23:49 21:27 19:37 WBC Hct MCV MCHC RDW Immature Gran % (Auto) Neut % (Auto) Lymph % (Auto) Immature Gran # Absolute Neutrophils ABG Methemoglobin VBG pH 7.03 L* VBG pCO2 26.9 L VBG pO2 45.0 H VBG HCO3 7.0 L* VBG Total CO2 7.8 L* VBG O2 Saturation 74.8 H VBG Base Excess -23 L Carboxyhemoglobin 4.0 H POC Sodium Sodium POC Potassium Potassium Chloride Carbon Dioxide 10 L* POC Total CO2 Anion Gap 22.0 H POC BUN BUN 26 H Creatinine 1.3 H Glucose 223 H POC Glucose Hemoglobin A1c 12.0 H Uric Acid Calcium Phosphorus GGT Alkaline Phosphatase Total Protein Albumin Triglycerides Beta-Hydroxybutyrate Urine Protein Urine Glucose (UA) Urine Ketones Urine Occult Blood 08/21/22 08/21/22 08/21/22 19:36 19:36 17:08 WBC Hct MCV MCHC RDW Immature Gran % (Auto) Neut % (Auto) Lymph % (Auto) Immature Gran # Absolute Neutrophils ABG Methemoglobin VBG pH VBG pCO2 VBG pO2 VBG HCO3 VBG Total CO2 VBG O2 Saturation VBG Base Excess Carboxyhemoglobin POC Sodium Sodium POC Potassium Potassium Chloride Carbon Dioxide 5 L* POC Total CO2 Anion Gap 27.0 H POC BUN BUN 24 H Creatinine 1.2 H Glucose 508 H* POC Glucose Hemoglobin A1c Uric Acid 8.5 H Calcium 7.6 L Phosphorus GGT 69 H Alkaline Phosphatase 144 H Total Protein 5.6 L Albumin 3.1 L Triglycerides 344 H Beta-Hydroxybutyrate 8.81 H Urine Protein Trace A Urine Glucose (UA) >=1000 A Urine Ketones >=80 A Urine Occult Blood Small A 08/21/22 08/21/22 08/21/22 16:15 15:55 15:38 WBC 16.0 H Hct MCV 102.7 H MCHC 30.5 L RDW 14.9 H Immature Gran % (Auto) 1.8 H Neut % (Auto) 78.9 H Lymph % (Auto) 14.0 L Immature Gran # 0.29 H Absolute Neutrophils 12.66 H ABG Methemoglobin 0.3 L VBG pH 6.85 L* VBG pCO2 18.7 L* VBG pO2 132.3 H VBG HCO3 3.2 L* VBG Total CO2 3.7 L* VBG O2 Saturation 90.4 H VBG Base Excess -30 L Carboxyhemoglobin 6.7 H POC Sodium Sodium POC Potassium Potassium Chloride Carbon Dioxide POC Total CO2 Anion Gap POC BUN BUN Creatinine Glucose POC Glucose Hemoglobin A1c Uric Acid Calcium Phosphorus 8.1 H* GGT Alkaline Phosphatase Total Protein Albumin Triglycerides Beta-Hydroxybutyrate Urine Protein Urine Glucose (UA) Urine Ketones Urine Occult Blood 08/21/22 08/21/22 14:42 14:42 WBC Hct MCV MCHC RDW Immature Gran % (Auto) Neut % (Auto) Lymph % (Auto) Immature Gran # Absolute Neutrophils ABG Methemoglobin VBG pH VBG pCO2 VBG pO2 VBG HCO3 VBG Total CO2 VBG O2 Saturation VBG Base Excess Carboxyhemoglobin POC Sodium 125 L Sodium 126 L POC Potassium 5.9 H* Potassium 6.1 H* Chloride 84 L Carbon Dioxide 2 L* POC Total CO2 5.0 L* Anion Gap 40.0 H POC BUN 29 H BUN 25 H Creatinine 1.6 H Glucose 996 H* POC Glucose > 700 H* Hemoglobin A1c Uric Acid Calcium Phosphorus GGT Alkaline Phosphatase 166 H Total Protein Albumin Triglycerides Beta-Hydroxybutyrate Urine Protein Urine Glucose (UA) Urine Ketones Urine Occult Blood Meds: Medications Acetaminophen (Acetaminophen 325 Mg Tablet) 650 mg PO Q4-6HP PRN; Protocol PRN Reason: Per Pain Protocol/Fever > 101 Acyclovir (Acyclovir 400 Mg Tablet) 400 mg PO BID [facility]; Protocol Last Admin: 08/21/22 21:43 Dose: 400 mg Albuterol/Ipratropium (Ipratropium/Albuterol 3 Ml Ampul.Neb) 3 ml NEB Q4HRT PRN PRN Reason: Wheezing Lipase/Protease/Amylase (Lipase/Protease/Amylase 1 Cap Capsule) 1 cap PO TIDCC [facility] Atorvastatin Calcium (Atorvastatin 40 Mg Tablet) 40 mg PO QDAY [facility] Diagnostic Test (Pha) (Accu-Chek 1 Each Strip) 1 each FS Q1 [facility] Last Admin: 08/22/22 08:10 Dose: 1 each Docusate Sodium (Docusate Sodium 100 Mg Capsule) 100 mg PO BID [facility] Last Admin: 08/21/22 21:43 Dose: 100 mg Duloxetine HCl (Duloxetine 30 Mg Capsule) 30 mg PO QDAY [facility] Enoxaparin Sodium (Enoxaparin 40 Mg/0.4 Ml Syringe) 40 mg SQ DAILY [facility] Gabapentin (Gabapentin 400 Mg Capsule) 800 mg PO TID [facility] Last Admin: 08/21/22 21:43 Dose: 800 mg Hyoscyamine (Hyoscyamine Sulfate 0.125 Mg Tablet) 0.125 mg PO Q6HP PRN PRN Reason: Abdominal Discomfort Insulin Human Regular 50 unit/ (Sodium Chloride) 100 mls @ 0 mls/hr IV DUR PEG; Protocol Last Titration: 08/22/22 07:00 Dose: 1 unit/hr, 2 mls/hr Potassium Chloride/Dextrose/Sod Cl (Dextrose 5%-1/2ns W/20meq Kcl) 1,000 mls @ 150 mls/hr IV .Q6H40M [facility] Last Admin: 08/22/22 00:00 Dose: 150 mls/hr Norepinephrine Bitartrate 8 mg (/ Sodium Chloride) 250 mls @ 18.75 mls/hr IV Q14H [facility]; Protocol Last Titration: 08/22/22 08:00 Dose: 7 mcg/min, 13.125 mls/hr Vancomycin HCl 1,000 mg/ (Sodium Chloride) 250 mls @ 250 mls/hr IV Q12H [facility]; Protocol Last Infusion: 08/22/22 06:20 Dose: Infused Meropenem 1 gm/ Sodium (Chloride) 50 mls @ 100 mls/hr IV Q24H [facility]; Protocol Last Infusion: 08/22/22 07:30 Dose: Infused Ibuprofen (Ibuprofen 200 Mg Tablet) 200 mg PO Q6HP PRN PRN Reason: Pain Iron Carb/Multivit/[place]/Folic Acid (Multivit,Ther Iron,Ca,Fa & Min 1 Tablet) 1 tab PO DAILY [facility] Levothyroxine Sodium (Levothyroxine 125 Mcg Tablet) 125 mcg PO QAMAC [facility] Methocarbamol (Methocarbamol 500 Mg Tablet) 500 mg PO TIDP PRN PRN Reason: Muscle Spasm Morphine Sulfate (Morphine 4 Mg/Ml Vial) 4 mg IV Q2HP PRN; Protocol PRN Reason: Per Pain Protocol Last Admin: 08/22/22 01:17 Dose: 4 mg Ondansetron HCl (Ondansetron 4 Mg/2 Ml Vial) 4 mg IV Q4-6HP PRN; Protocol PRN Reason: Nausea And Vomiting Phenol (Phenol/Sodium Phenolate 5 [place] 180ml) 5 spray SSP Q2HP PRN PRN Reason: Sore Throat Promethazine HCl (Promethazine 25 Mg/Ml Vial) 25 mg IV Q4-6HP PRN; Protocol PRN Reason: Nausea And Vomiting Propranolol HCl (Propranolol 10 Mg Tablet) 10 mg PO TID [facility] Last Admin: 08/21/22 21:44 Dose: 10 mg Senna (Sennosides 1 Tablet) 1 tab PO DAILY [facility] Sodium Chloride (0.9 % Sodium Chloride 10 Ml Syringe) 10 ml IV Q8 [facility] Last Admin: 08/22/22 06:18 Dose: Not Given Trazodone HCl (Trazodone Hcl 100 Mg Tablet) 100 mg PO HSP PRN PRN Reason: insomnia Vitamin D (Vitamin D3 25 Mcg Tablet) 50 mcg PO DAILY PEG Zinc Sulfate (Zinc Sulfate 50 Mg Capsule) 50 mg PO DAILY PEG ABG Interpretation ABG results: 08/21/22 08/21/22 08/21/22 16:15 20:07 21:27 ABG Methemoglobin 0.3 L TNP 0.4 VBG pH 6.85 L* TNP 7.03 L* VBG pCO2 18.7 L* TNP 26.9 L VBG pO2 132.3 H TNP 45.0 H VBG HCO3 3.2 L* TNP 7.0 L* VBG Total CO2 3.7 L* TNP 7.8 L* VBG O2 Saturation 90.4 H TNP 74.8 H VBG Base Excess -30 L TNP -23 L 08/21/22 08/22/22 23:57 07:39 ABG Methemoglobin 0.3 L 0 L VBG pH 7.14 L* 7.34 VBG pCO2 32.1 L 27.5 L VBG pO2 45.9 H 129.7 H VBG HCO3 10.8 L* 14.5 L VBG Total CO2 11.7 L 15.3 L VBG O2 Saturation 78.1 H 85.1 H VBG Base Excess -17 L -10 L A/P Assessment and plan (1) DKA, type 2: Status: Acute (2) Compression fracture of body of thoracic vertebra: Status: Acute (3) Hyperkalemia: Status: Acute (4) Hypothyroidism: Status: Chronic (5) Mixed dyslipidemia: Status: Acute (6) Essential tremor: Status: Chronic (7) Clinical sepsis: Status: Acute (8) Septic shock: Status: Acute Narrative A/P Narrative: Assessment and Plans: 1. Diabetic ketoacidosis associated with type 2 diabetes mellitus: Inpatient ICU NPO with IV fluid as following: NS w/ KCl 20mEq@150cc/hr when anion gap is elevated (>14) and blood glucose >=200 D5 1/2NS w/ KCl 20mEq@150cc/hr when anion gap is elevated (>14) and blood glucose <200 Insulin drip according to DKA protocol Neurontin HgA1c 12.0 Accu Check q1hr BMP q6hr diabetes educator referral 2. Chronic back pain secondary to compression fracture of thoracic vertebra: Tylenol Oxycodone Morphine IV Physical therapy evaluation and treatment 3. Hypothyroidism: Continue thyroid replacement therapy 4. Mixed dyslipidemia: Continue Lipitor 5. Essential tremor: Hold Propranolol due to septic shock 6. Hyperkalemia: RESOLVED Calcium gluconate Insulin drip according to DKA protocol BMP q6hr to trend serum potassium level 7. Clinical sepsis with septic shock: Blood culture X2 pending Rapid strep test CEPHEID for influenza and CoVID pending cbc w/ auto diff in the morning to trend WBC Broad spectrum antibiotics with Vancomycin and Meropenem (penicillin allergy) Levophed drip goal MAP>=65mmHg IV fluid according to DKA protocol, see #1 GI ppx: not currently indicated DVT ppx: Lovenox Code status: DNR Prognosis: extremely guarded Disposition: inpatient ICU; PT Critical Care Time: 60min Time Spent With Patient Time: Total time spent is greater than 50% in coordination of care (as documented) at patient's floor/unit and/or counseling patient: Total time spent with greater than 50% in coordination of care (as documented) at patient's floor/unit and/or counseling patient:: 50 - 70 minutes Critical Care Time: Yes Total Critical Care Time: 60 QUALITY VTE Deep Vein Thrombosis/Pulmonary Embolism Present on Admission: No
[2022-08-22 08:48] LABS: ALT/SGPT 16 U/L (<40); AST/SGOT 19 U/L (<32); Albumin 3.1 gm/dL (3.2-5.2); Albumin/Globulin Ratio 1.3 (1.0-2.3); Alkaline Phosphatase 133 U/L (39-117); Bilirubin,Total 0.4 mg/dL (0.1-1.0); Blood Urea Nitrogen 19 mg/dL (8-23); Calcium 8.3 mg/dL (8.6-10.4); Carbon Dioxide 13 mmol/L (22-30); Chloride 108 mmol/L (96-108); Globulin 2.3 gm/dL (2.2-3.7); Glomerular Filtration Rate 44; Glucose 180 mg/dL (70-105); Phosphorous 1.8 mg/dL (2.5-4.5)
[2022-08-22] MEDS ORDERED: VANCOMYCIN PER PHARMACY IV SCH (08:51)
[2022-08-22] MEDS: LEVOTHYROXINE 125 MCG TABLET PO SCH (08:55)
[2022-08-22] MEDS: ZINC SULFATE 50 MG CAPSULE PO SCH (10:17)
[2022-08-22] MEDS: SENNOSIDES 1 TABLET PO SCH (10:17)
[2022-08-22] MEDS: VITAMIN D3 25 MCG TABLET PO SCH (10:17)
[2022-08-22] MEDS: MULTIVIT,THER IRON,CA,FA & MIN 1 TABLET PO SCH (10:17)
[2022-08-22] MEDS: ENOXAPARIN 40 MG/0.4 ML SYRINGE SQ SCH (10:17)
[2022-08-22] MEDS: ATORVASTATIN 40 MG TABLET PO SCH (10:17)
[2022-08-22] MEDS: DOCUSATE SODIUM 100 MG CAPSULE PO SCH ×2 (10:18→20:17)
[2022-08-22] MEDS: DULoxetine 30 MG CAPSULE PO SCH (10:27)
[2022-08-22] MEDS: ACYCLOVIR 400 MG TABLET PO SCH ×2 (10:27→20:16)
[2022-08-22] MEDS: GABAPENTIN 400 MG CAPSULE PO SCH ×3 (10:27→20:16)
[2022-08-22 11:11] LABS: ABG Methemoglobin 0.3 % (0.4-1.5); Total Hemoglobin 12.8 gm/Dl (12.0-15.0); VBG Base Excess -11 (-2-3); VBG HCO3 13.5 mmol/L (24.0-28.0); VBG Oxygen Saturation 91.6 % (40.0-70.0); VBG PCO2 25.9 mmHg (41.0-51.0); VBG PH 7.34 U (7.32-7.42); VBG PO2 140.2 mmHg (25.0-40.0); VBG Total CO2 14.3 mmol/L (25.0-29.0)
[2022-08-22 13:32] LABS: Blood Urea Nitrogen 20 mg/dL (8-23); Calcium 8.4 mg/dL (8.6-10.4); Carbon Dioxide 14 mmol/L (22-30); Chloride 106 mmol/L (96-108); Glomerular Filtration Rate 48; Glucose 202 mg/dL (70-105)
[2022-08-22] MEDS ORDERED: DEXTROSE 31 GM ORAL.SUSP PO PRN (13:39)
[2022-08-22] MEDS ORDERED: DEXTROSE 50% 50 ML VIAL IV PRN (13:39)
[2022-08-22] MEDS ORDERED: INSULIN GLARGINE, HUMAN 1 UNIT/0.01 ML SQ SCH ×2 (14:00→21:00)
[2022-08-22] MEDS ORDERED: INSULIN DEGLUDEC 100 UNIT SUB-Q SCH (17:00)
[2022-08-22] MEDS: INSULIN LISPRO 1 UNIT/0.01 ML UNIT SQ SCH ×2 (17:10→20:17)
[2022-08-22] MEDS: INSULIN GLARGINE, HUMAN 1 UNIT/0.01 ML SQ SCH (20:17)
[2022-08-22] MEDS ORDERED: MAGNESIUM SULFATE 2 GM/50 ML BAG IV ONE (21:12)
[2022-08-23] MEDS: NOREPINEPHRINE BITARTRATE 8 MG in 0.9 % SODIUM CHLORIDE 242 ML IV SCH ×2 (05:14→09:03)
[2022-08-23] MEDS: 0.9 % SODIUM CHLORIDE 10 ML SYRINGE IV SCH ×3 (05:14→22:07)
[2022-08-23 07:26] LABS: Basophils # (Auto) 0.04 K/mcL (0.00-0.30); Basophils % (Auto) 0.6 % (0.0-2.0); Eosinophils % (Auto) 1.5 % (0.0-7.0); Hematocrit 31.5 % (34.1-44.9); Hemoglobin 10.8 g/dL (11.2-15.7); Lymphocytes # (Auto) 2.36 K/mcL (1.50-4.80); Lymphocytes % (Auto) 34.5 % (15.5-49.0); Mean Cell Volume 87.5 fL (80.0-100.0); Mean Corpuscular HGB Conc 34.3 g/dL (31.0-36.0); Mean Platelet Volume 10.5 fL (8.8-12.5); Monocytes # (Auto) 0.34 K/mcL (0.10-0.90); Platelet Count 135 K/mcL (140-440); WBC 6.9 K/mcL (4.5-11.0)
[2022-08-23 07:47] LABS: Phosphorous 1.8 mg/dL (2.5-4.5)
[2022-08-23] MEDS ORDERED: VANCOMYCIN 750 MG in 0.9 % SODIUM CHLORIDE 250 ML IV SCH (08:00)
[2022-08-23 08:23] LABS: ALT/SGPT 18 U/L (<40); AST/SGOT 44 U/L (<32); Albumin 2.7 gm/dL (3.2-5.2); Albumin/Globulin Ratio 1.2 (1.0-2.3); Alkaline Phosphatase 121 U/L (39-117); Bilirubin,Total 0.2 mg/dL (0.1-1.0); Blood Urea Nitrogen 12 mg/dL (8-23); Calcium 8.5 mg/dL (8.6-10.4); Carbon Dioxide 18 mmol/L (22-30); Chloride 112 mmol/L (96-108); Globulin 2.2 gm/dL (2.2-3.7); Glomerular Filtration Rate 62; Glucose 203 mg/dL (70-105)
[2022-08-23] MEDS: LEVOTHYROXINE 125 MCG TABLET PO SCH (08:40)
[2022-08-23] MEDS: LIPASE/PROTEASE/AMYLASE 1 CAP CAPSULE PO SCH ×3 (08:41→16:45)
[2022-08-23] MEDS: MEROPENEM 1 GM in 0.9 % SODIUM CHLORIDE 50 ML IV SCH (08:41)
[2022-08-23] MEDS: INSULIN GLARGINE, HUMAN 1 UNIT/0.01 ML SQ SCH ×2 (08:46→22:06)
[2022-08-23] MEDS: INSULIN LISPRO 1 UNIT/0.01 ML UNIT SQ SCH ×4 (08:46→22:06)
--- NOTE | 2022-08-23 08:46 | Internal Med Progress Note ---
SUBJECTIVE Subjective Patient information: Note initiated : 08/23/22 at 8:42 am Service Date, if different from initiated Date: [] Patient: Tennille Castillo a 77 y/o F admitted on 08/21/22 for shortness of breath, elevated blood sugar. Chief Complaint: [] Interval history: Ms. Castillo is a 77 year old F history of type 2 diabetes mellitus, chronic back pain from compression fracture of thoracic vertebra, hypothyroidism, essential tremor, dyslipidemia, presenting with a 4-day history of general weakness, loss of appetite, short of breath. She was recently hospitalized in our facility for the treatment of diabetic ketoacidosis and was being discharged home 4 days ago. She claims that since she got back home, she is continue to feel extremely weak, loss of appetite, as well as shortness of breath. She further stated that she did not have her home health physical therapy sections since she was being discharged home. Labs showing leukocytosis with WBCs 16.0. Blood glucose level greater than 700. VBH pH 6.85, bicarb 3.2, anion gap 19. Serum ketone pending. Admission request was called for another round of diabetic ketoacidosis associated with type 2 diabetes mellitus. Pending chest x-ray and urinalysis to rule out infections as trigger of diabetic ketoacidosis. 08/22: Patient's blood pressure dropped to 80s over 40s mmHg earlier this morning. Patient still on insulin drip at 1 unit/hr, and IV fluid D5 1/2NS w/ KCl 20mEq @150cc/hr. Still on Levophed drip, currently at 7 mcg/min. Morning labs pending. Latest blood glucose level 178. Patient is still complaining of severe general weakness. She is coming of shortness of breath. She is complaining of nonproductive cough and respiratory wheezings. She is complaining of shaking chills. She is complaining of sore throat. Blood culture x2 collected. CEPHEID for influenza and CoVID pending. Will also order rapid strep test. Started on Vancomycin and Meropenem (due to penicillin allergy) as empiric broad spectrum antibiotics for clinical sepsis. Continue NPO status with insulin drip, IV fluid infusion, Levophed drip, and the aforementioned antibiotics. Still extremely guarded. Stay in ICU. 08/23: CEPHEID negative for CoVID pneumonia. Rapid strep also negative. Fasting glucose 176 this morning. Levophed drip was being switched off at around 3 AM this morning. Urine output borderline at around 30 cc/h as of this morning. Order cultures no growth today. Patient is feeling better this morning, denies any pain including abdominal pain. She also denies any nausea or vomiting. She denies any insomnia overnight. She has a good appetite and is ready to have her breakfast. Continue vancomycin and Zosyn while monitoring blood culture results. Continuing basal bolus insulin therapy. We will have the Levophed drip standby. We will keep the patient in the ICU for now because patient is still guarded. Physical therapy evaluation and treatments today. Constitutional Vitals: Vital Signs Temp Pulse Resp BP Pulse Ox O2 Del Method 36.3 C 93 H 14 102/49 96 08/23/22 07:00 08/21/22 17:00 08/23/22 07:00 08/23/22 07:00 08/23/22 07:00 08/23/22 07:00 Period Temp Pulse Resp BP Sys/Rosario Pulse Ox O2 Del Method O2 Flow Rate Last 24 Hr 36.3 C-37.5 C 9-21 90-193/42-90 95-100 Room Air-Room Air Intake and Output 08/22/22 08/23/22 08/23/22 19:59 03:59 11:59 Intake Total 2303 40 50 Output Total 958 1017 376 Balance 1345 -977 -326 Weight 63.004 kg Intake & Output: Intake & Output 08/22/22 08/23/22 08/23/22 19:59 03:59 11:59 Intake Total 2303 40 50 Output Total 958 1017 376 Balance 1345 -977 -326 Weight 63.004 kg Intake: IV 1103 40 50 Dextrose 5%-1/2Ns W/20Meq KCl 1 1000 ,000 ml @ 150 mls/hr IV .Q6H40M PEG Rx#:[id number] HumuLIN R 50 UNIT In Sodium 21 Chloride 0.9% 99.5 ml @ Per Protocol IV DUR PEG Rx#: [id number] Levophed 8 mg In Sodium 82 40 Chloride 0.9% 242 ml @ 10 MCG/ MIN 18.75 mls/hr IV Q14H PEG Rx #:[id number] Oral 1200 Output: Urine Catheter Amount 958 1017 335 Void Amount 41 Other: Meal Dinner Percent of Meal Consumed 100% Feeding Ability Independent Urine Appearance Clear Clear Clear Uretheral (Alcazar) Clear Clear Urine Color Yellow Pale Yellow Uretheral (Alcazar) Bright Yellow Pale Urine Odor Normal Stool Size Moderate Stool Color Brown Stool Consistency Watery Judy Loose # Bowel Movements 1 # of times incontinent of 0 Bowels Head Head exam: Present atraumatic and normal inspection Eye Eye exam: Present normal appearance ENT ENT exam: Present mucous membranes moist, normal exam and normal external ear exam Neck Neck exam: Present normal inspection Respiratory Respiratory exam: Present normal respiratory exam Cardiovascular Cardiovascular exam: Present normal rate and rhythm GI/Abdominal GI/Abdominal exam: Present normal bowel sounds Additional comments: Alcazar catheter in place Back Exam Back exam: Present normal inspection Neurological Exam Neurological exam: Present alert and oriented X3 Skin Skin exam: Present intact and warm OBJ DATA Labs CBC & Chem 7: 08/23/22 05:56 08/23/22 05:56 Labs: Abnormal Lab Results 08/23/22 08/23/22 08/22/22 05:56 05:56 12:08 WBC Hgb 10.8 L Hct 31.5 L MCV MCHC RDW 15.0 H Plt Count 135 L Immature Gran % (Auto) Neut % (Auto) Lymph % (Auto) Immature Gran # Absolute Neutrophils ABG Methemoglobin VBG pH VBG pCO2 VBG pO2 VBG HCO3 VBG Total CO2 VBG O2 Saturation VBG Base Excess Carboxyhemoglobin POC Sodium Sodium 132 L POC Potassium Potassium Chloride 112 H Carbon Dioxide 18 L 14 L POC Total CO2 Anion Gap POC BUN BUN Creatinine Glucose 203 H 202 H POC Glucose Hemoglobin A1c Uric Acid Calcium 8.5 L 8.4 L Phosphorus 1.8 L Magnesium GGT AST 44 H Alkaline Phosphatase 121 H Total Protein 4.9 L Albumin 2.7 L Triglycerides Beta-Hydroxybutyrate Urine Protein Urine Glucose (UA) Urine Ketones Urine Occult Blood 08/22/22 08/22/22 08/22/22 10:44 10:44 07:40 WBC Hgb Hct MCV MCHC RDW Plt Count Immature Gran % (Auto) Neut % (Auto) Lymph % (Auto) Immature Gran # Absolute Neutrophils ABG Methemoglobin 0.3 L VBG pH VBG pCO2 25.9 L VBG pO2 140.2 H VBG HCO3 13.5 L VBG Total CO2 14.3 L VBG O2 Saturation 91.6 H VBG Base Excess -11 L Carboxyhemoglobin 6.5 H POC Sodium Sodium 132 L POC Potassium Potassium Chloride Carbon Dioxide 13 L 13 L POC Total CO2 Anion Gap POC BUN BUN Creatinine 1.2 H Glucose 180 H POC Glucose Hemoglobin A1c Uric Acid Calcium 8.3 L Phosphorus 1.8 L Magnesium 1.5 L GGT AST Alkaline Phosphatase 133 H Total Protein 5.4 L Albumin 3.1 L Triglycerides Beta-Hydroxybutyrate Urine Protein Urine Glucose (UA) Urine Ketones Urine Occult Blood 08/22/22 08/22/22 08/21/22 07:40 07:39 23:57 WBC 11.2 H Hgb Hct 33.8 L MCV MCHC RDW Plt Count Immature Gran % (Auto) Neut % (Auto) Lymph % (Auto) Immature Gran # 0.06 H Absolute Neutrophils 8.01 H ABG Methemoglobin 0 L 0.3 L VBG pH 7.14 L* VBG pCO2 27.5 L 32.1 L VBG pO2 129.7 H 45.9 H VBG HCO3 14.5 L 10.8 L* VBG Total CO2 15.3 L 11.7 L VBG O2 Saturation 85.1 H 78.1 H VBG Base Excess -10 L -17 L Carboxyhemoglobin 13.3 H 6.0 H POC Sodium Sodium POC Potassium Potassium Chloride Carbon Dioxide POC Total CO2 Anion Gap POC BUN BUN Creatinine Glucose POC Glucose Hemoglobin A1c Uric Acid Calcium Phosphorus Magnesium GGT AST Alkaline Phosphatase Total Protein Albumin Triglycerides Beta-Hydroxybutyrate Urine Protein Urine Glucose (UA) Urine Ketones Urine Occult Blood 08/21/22 08/21/22 08/21/22 23:49 21:27 19:37 WBC Hgb Hct MCV MCHC RDW Plt Count Immature Gran % (Auto) Neut % (Auto) Lymph % (Auto) Immature Gran # Absolute Neutrophils ABG Methemoglobin VBG pH 7.03 L* VBG pCO2 26.9 L VBG pO2 45.0 H VBG HCO3 7.0 L* VBG Total CO2 7.8 L* VBG O2 Saturation 74.8 H VBG Base Excess -23 L Carboxyhemoglobin 4.0 H POC Sodium Sodium POC Potassium Potassium Chloride Carbon Dioxide 10 L* POC Total CO2 Anion Gap 22.0 H POC BUN BUN 26 H Creatinine 1.3 H Glucose 223 H POC Glucose Hemoglobin A1c 12.0 H Uric Acid Calcium Phosphorus Magnesium GGT AST Alkaline Phosphatase Total Protein Albumin Triglycerides Beta-Hydroxybutyrate Urine Protein Urine Glucose (UA) Urine Ketones Urine Occult Blood 08/21/22 08/21/22 08/21/22 19:36 19:36 17:08 WBC Hgb Hct MCV MCHC RDW Plt Count Immature Gran % (Auto) Neut % (Auto) Lymph % (Auto) Immature Gran # Absolute Neutrophils ABG Methemoglobin VBG pH VBG pCO2 VBG pO2 VBG HCO3 VBG Total CO2 VBG O2 Saturation VBG Base Excess Carboxyhemoglobin POC Sodium Sodium POC Potassium Potassium Chloride Carbon Dioxide 5 L* POC Total CO2 Anion Gap 27.0 H POC BUN BUN 24 H Creatinine 1.2 H Glucose 508 H* POC Glucose Hemoglobin A1c Uric Acid 8.5 H Calcium 7.6 L Phosphorus Magnesium GGT 69 H AST Alkaline Phosphatase 144 H Total Protein 5.6 L Albumin 3.1 L Triglycerides 344 H Beta-Hydroxybutyrate 8.81 H Urine Protein Trace A Urine Glucose (UA) >=1000 A Urine Ketones >=80 A Urine Occult Blood Small A 08/21/22 08/21/22 08/21/22 16:15 15:55 15:38 WBC 16.0 H Hgb Hct MCV 102.7 H MCHC 30.5 L RDW 14.9 H Plt Count Immature Gran % (Auto) 1.8 H Neut % (Auto) 78.9 H Lymph % (Auto) 14.0 L Immature Gran # 0.29 H Absolute Neutrophils 12.66 H ABG Methemoglobin 0.3 L VBG pH 6.85 L* VBG pCO2 18.7 L* VBG pO2 132.3 H VBG HCO3 3.2 L* VBG Total CO2 3.7 L* VBG O2 Saturation 90.4 H VBG Base Excess -30 L Carboxyhemoglobin 6.7 H POC Sodium Sodium POC Potassium Potassium Chloride Carbon Dioxide POC Total CO2 Anion Gap POC BUN BUN Creatinine Glucose POC Glucose Hemoglobin A1c Uric Acid Calcium Phosphorus 8.1 H* Magnesium GGT AST Alkaline Phosphatase Total Protein Albumin Triglycerides Beta-Hydroxybutyrate Urine Protein Urine Glucose (UA) Urine Ketones Urine Occult Blood 08/21/22 08/21/22 14:42 14:42 WBC Hgb Hct MCV MCHC RDW Plt Count Immature Gran % (Auto) Neut % (Auto) Lymph % (Auto) Immature Gran # Absolute Neutrophils ABG Methemoglobin VBG pH VBG pCO2 VBG pO2 VBG HCO3 VBG Total CO2 VBG O2 Saturation VBG Base Excess Carboxyhemoglobin POC Sodium 125 L Sodium 126 L POC Potassium 5.9 H* Potassium 6.1 H* Chloride 84 L Carbon Dioxide 2 L* POC Total CO2 5.0 L* Anion Gap 40.0 H POC BUN 29 H BUN 25 H Creatinine 1.6 H Glucose 996 H* POC Glucose > 700 H* Hemoglobin A1c Uric Acid Calcium Phosphorus Magnesium GGT AST Alkaline Phosphatase 166 H Total Protein Albumin Triglycerides Beta-Hydroxybutyrate Urine Protein Urine Glucose (UA) Urine Ketones Urine Occult Blood Meds: Medications Acetaminophen (Acetaminophen 325 Mg Tablet) 650 mg PO Q4-6HP PRN; Protocol PRN Reason: Per Pain Protocol/Fever > 101 Acyclovir (Acyclovir 400 Mg Tablet) 400 mg PO BID [facility]; Protocol Last Admin: 08/22/22 20:16 Dose: 400 mg Albuterol/Ipratropium (Ipratropium/Albuterol 3 Ml Ampul.Neb) 3 ml NEB Q4HRT PRN PRN Reason: Wheezing Lipase/Protease/Amylase (Lipase/Protease/Amylase 1 Cap Capsule) 1 cap PO TIDCC [facility] Last Admin: 08/23/22 08:41 Dose: 1 cap Atorvastatin Calcium (Atorvastatin 40 Mg Tablet) 40 mg PO QDAY [facility] Last Admin: 08/22/22 10:17 Dose: 40 mg Dextrose (Dextrose 50% 50 Ml Vial) 0 ml IV UD PRN PRN Reason: Per Sliding Scale Diagnostic Test (Pha) (Accu-Chek 1 Each Strip) 1 each FS ACHS [facility] Last Admin: 08/23/22 08:20 Dose: 1 each Docusate Sodium (Docusate Sodium 100 Mg Capsule) 100 mg PO BID [facility] Last Admin: 08/22/22 20:17 Dose: Not Given Duloxetine HCl (Duloxetine 30 Mg Capsule) 30 mg PO QDAY [facility] Last Admin: 08/22/22 10:27 Dose: 30 mg Enoxaparin Sodium (Enoxaparin 40 Mg/0.4 Ml Syringe) 40 mg SQ DAILY [facility] Last Admin: 08/22/22 10:17 Dose: 40 mg Gabapentin (Gabapentin 400 Mg Capsule) 800 mg PO TID [facility] Last Admin: 08/22/22 20:16 Dose: 800 mg Glucose (Dextrose 31 Gm Oral.Susp) 15 gm PO PRN PRN PRN Reason: Hypoglycemia Hyoscyamine (Hyoscyamine Sulfate 0.125 Mg Tablet) 0.125 mg PO Q6HP PRN PRN Reason: Abdominal Discomfort Insulin Human Regular 50 unit/ (Sodium Chloride) 100 mls @ 0 mls/hr IV DUR [facility]; Protocol Last Titration: 08/22/22 18:12 Dose: Infused Norepinephrine Bitartrate 8 mg (/ Sodium Chloride) 250 mls @ 18.75 mls/hr IV Q14H [facility]; Protocol Last Admin: 08/23/22 05:14 Dose: Not Given Meropenem 1 gm/ Sodium (Chloride) 50 mls @ 100 mls/hr IV Q24H [facility]; Protocol Last Admin: 08/23/22 08:41 Dose: 100 mls/hr Vancomycin HCl 750 mg/ Sodium (Chloride) 250 mls @ 250 mls/hr IV Q24H PEG; Protocol Ibuprofen (Ibuprofen 200 Mg Tablet) 200 mg PO Q6HP PRN PRN Reason: Pain Insulin Glargine (Insulin Glargine, Human 1 Unit/0.01 Ml) 30 unit SQ BID [facility] Last Admin: 08/22/22 20:17 Dose: 30 unit Insulin Human Lispro (Insulin Lispro 1 Unit/0.01 Ml Unit) 0 unit SQ ACHS [facility]; Protocol Last Admin: 08/22/22 20:17 Dose: 10 unit Iron Carb/Multivit/Inbound Telemarketer/Folic Acid (Multivit,Ther Iron,Ca,Fa & Min 1 Tablet) 1 tab PO DAILY [facility] Last Admin: 08/22/22 10:17 Dose: 1 tab Levothyroxine Sodium (Levothyroxine 125 Mcg Tablet) 125 mcg PO QAMAC [facility] Last Admin: 08/23/22 08:40 Dose: 125 mcg Methocarbamol (Methocarbamol 500 Mg Tablet) 500 mg PO TIDP PRN PRN Reason: Muscle Spasm Morphine Sulfate (Morphine 4 Mg/Ml Vial) 4 mg IV Q2HP PRN; Protocol PRN Reason: Per Pain Protocol Last Admin: 08/22/22 01:17 Dose: 4 mg Ondansetron HCl (Ondansetron 4 Mg/2 Ml Vial) 4 mg IV Q4-6HP PRN; Protocol PRN Reason: Nausea And Vomiting Phenol (Phenol/Sodium Phenolate 5 [place] Bottle 180ml) 5 spray SSP Q2HP PRN PRN Reason: Sore Throat Last Admin: 08/22/22 20:29 Dose: 5 spray Promethazine HCl (Promethazine 25 Mg/Ml Vial) 25 mg IV Q4-6HP PRN; Protocol PRN Reason: Nausea And Vomiting Senna (Sennosides 1 Tablet) 1 tab PO DAILY [facility] Last Admin: 08/22/22 10:17 Dose: 1 tab Sodium Chloride (0.9 % Sodium Chloride 10 Ml Syringe) 10 ml IV Q8 [facility] Last Admin: 08/23/22 05:14 Dose: 10 ml Trazodone HCl (Trazodone Hcl 100 Mg Tablet) 100 mg PO HSP PRN PRN Reason: insomnia Vancomycin HCl (Vancomycin Per Pharmacy) 1 order IV UD [facility]; Protocol Vitamin D (Vitamin D3 25 Mcg Tablet) 50 mcg PO DAILY [facility] Last Admin: 08/22/22 10:17 Dose: 50 mcg Zinc Sulfate (Zinc Sulfate 50 Mg Capsule) 50 mg PO DAILY [facility] Last Admin: 08/22/22 10:17 Dose: 50 mg ABG Interpretation ABG results: 08/21/22 08/21/22 08/21/22 16:15 20:07 21:27 ABG Methemoglobin 0.3 L TNP 0.4 VBG pH 6.85 L* TNP 7.03 L* VBG pCO2 18.7 L* TNP 26.9 L VBG pO2 132.3 H TNP 45.0 H VBG HCO3 3.2 L* TNP 7.0 L* VBG Total CO2 3.7 L* TNP 7.8 L* VBG O2 Saturation 90.4 H TNP 74.8 H VBG Base Excess -30 L TNP -23 L 08/21/22 08/22/22 08/22/22 23:57 07:39 10:44 ABG Methemoglobin 0.3 L 0 L 0.3 L VBG pH 7.14 L* 7.34 7.34 VBG pCO2 32.1 L 27.5 L 25.9 L VBG pO2 45.9 H 129.7 H 140.2 H VBG HCO3 10.8 L* 14.5 L 13.5 L VBG Total CO2 11.7 L 15.3 L 14.3 L VBG O2 Saturation 78.1 H 85.1 H 91.6 H VBG Base Excess -17 L -10 L -11 L A/P Assessment and plan (1) DKA, type 2: Status: Acute (2) Compression fracture of body of thoracic vertebra: Status: Acute (3) Hyperkalemia: Status: Acute (4) Hypothyroidism: Status: Chronic (5) Mixed dyslipidemia: Status: Acute (6) Essential tremor: Status: Chronic (7) Clinical sepsis: Status: Acute (8) Septic shock: Status: Acute Narrative A/P Narrative: Assessment and Plans: 1. Diabetic ketoacidosis associated with type 2 diabetes mellitus: Inpatient ICU Neurontin HgA1c 12.0 Insulin Lantus 30 unit BID Accu Check AC HS Insulin Lispro SSI AC HS BMP q6hr clinical nurse educator referral Diabetic diet 2. Chronic back pain secondary to compression fracture of thoracic vertebra: Tylenol Oxycodone Morphine IV Physical therapy evaluation and treatment 3. Hypothyroidism: Continue thyroid replacement therapy 4. Mixed dyslipidemia: Continue Lipitor 5. Essential tremor: Hold Propranolol due to recent septic shock 6. Hyperkalemia: RESOLVED Calcium gluconate Insulin drip according to DKA protocol BMP q6hr to trend serum potassium level 7. Clinical sepsis with septic shock: Blood culture X2, no growth to date Rapid strep test negative CEPHEID for influenza and CoVID negative cbc w/ auto diff in the morning to trend WBC Broad spectrum antibiotics with Vancomycin and Meropenem (penicillin allergy) Levophed drip goal MAP>=65mmHg, stands b Saline lock GI ppx: not currently indicated DVT ppx: Lovenox Code status: DNR Prognosis: Guarded Disposition: inpatient ICU; PT Critical Care Time: 60min Time Spent With Patient Time: Total time spent is greater than 50% in coordination of care (as documented) at patient's floor/unit and/or counseling patient: Total time spent with greater than 50% in coordination of care (as documented) at patient's floor/unit and/or counseling patient:: 50 - 70 minutes Critical Care Time: Yes Total Critical Care Time: 60 QUALITY VTE Deep Vein Thrombosis/Pulmonary Embolism Present on Admission: No
[2022-08-23] MEDS: ENOXAPARIN 40 MG/0.4 ML SYRINGE SQ SCH (09:01)
[2022-08-23] MEDS: ATORVASTATIN 40 MG TABLET PO SCH (09:02)
[2022-08-23] MEDS: DULoxetine 30 MG CAPSULE PO SCH (09:02)
[2022-08-23] MEDS: ACYCLOVIR 400 MG TABLET PO SCH ×2 (09:02→22:06)
[2022-08-23] MEDS: GABAPENTIN 400 MG CAPSULE PO SCH ×3 (09:02→22:06)
[2022-08-23] MEDS: MULTIVIT,THER IRON,CA,FA & MIN 1 TABLET PO SCH (09:02)
[2022-08-23] MEDS: ACETAMINOPHEN 325 MG TABLET PO PRN (09:02)
[2022-08-23] MEDS: DOCUSATE SODIUM 100 MG CAPSULE PO SCH ×2 (09:02→22:07)
[2022-08-23] MEDS: VITAMIN D3 25 MCG TABLET PO SCH (09:02)
[2022-08-23] MEDS: SENNOSIDES 1 TABLET PO SCH (09:02)
[2022-08-23] MEDS: ZINC SULFATE 50 MG CAPSULE PO SCH (09:03)
[2022-08-23] MEDS ORDERED: NOREPINEPHRINE BITARTRATE 8 MG in 0.9 % SODIUM CHLORIDE 242 ML IV PRN (16:18)
[2022-08-23] MEDS: IBUPROFEN 200 MG TABLET PO PRN (16:45)
[2022-08-23] MEDS: METHOCARBAMOL 500 MG TABLET PO PRN (18:37)
[2022-08-23] MEDS: traZODone HCL 100 MG TABLET PO PRN (22:06)
[2022-08-23] MEDS: morphine 4 MG/ML VIAL IV PRN (23:09)
[2022-08-24] MEDS: 0.9 % SODIUM CHLORIDE 10 ML SYRINGE IV SCH ×3 (06:17→22:00)
[2022-08-24] MEDS: INSULIN LISPRO 1 UNIT/0.01 ML UNIT SQ SCH ×4 (07:07→20:52)
[2022-08-24] MEDS: HYOSCYAMINE SULFATE 0.125 MG TABLET PO PRN (07:11)
[2022-08-24] MEDS: METHOCARBAMOL 500 MG TABLET PO PRN ×2 (07:12→19:01)
[2022-08-24] MEDS: LEVOTHYROXINE 125 MCG TABLET PO SCH (07:12)
--- NOTE | 2022-08-24 07:22 | EKG ---
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 Measurements Intervals [place] Rate: 97 P: 59 MD: 162 QRS: 37 QRSD: 103 T: 131 QT: 384 QTc: 489 Interpretive Statements Sinus rhythm Nonspecific T abnormalities, lateral leads Borderline prolonged QT interval Electronically Signed On 08-24-2022 7:22:27 PST by Will Lawler M.D. /[id number]
[2022-08-24 07:23] LABS: Basophils # (Auto) 0.03 K/mcL (0.00-0.30); Basophils % (Auto) 0.9 % (0.0-2.0); Eosinophils # (Auto) 0.08 K/mcL (0.00-0.70); Eosinophils % (Auto) 2.5 % (0.0-7.0); Hematocrit 32.7 % (34.1-44.9); Hemoglobin 11.1 g/dL (11.2-15.7); Lymphocytes # (Auto) 1.61 K/mcL (1.50-4.80); Lymphocytes % (Auto) 49.5 % (15.5-49.0); Mean Corpuscular HGB Conc 33.9 g/dL (31.0-36.0); Mean Platelet Volume 10.3 fL (8.8-12.5); Monocytes # (Auto) 0.22 K/mcL (0.10-0.90); Monocytes % (Auto) 6.8 % (1.0-12.0); Platelet Count 109 K/mcL (140-440); RBC 3.76 M/mcL (3.59-5.38); WBC 3.3 K/mcL (4.5-11.0)
[2022-08-24] MEDS: ACETAMINOPHEN 325 MG TABLET PO PRN (07:54)
[2022-08-24] MEDS: LIPASE/PROTEASE/AMYLASE 1 CAP CAPSULE PO SCH ×3 (07:54→17:18)
[2022-08-24] MEDS: MEROPENEM 1 GM in 0.9 % SODIUM CHLORIDE 50 ML IV SCH (07:55)
[2022-08-24 08:06] LABS: ALT/SGPT 28 U/L (<40); AST/SGOT 70 U/L (<32); Albumin 2.6 gm/dL (3.2-5.2); Albumin/Globulin Ratio 1.2 (1.0-2.3); Alkaline Phosphatase 128 U/L (39-117); Bilirubin,Total 0.3 mg/dL (0.1-1.0); Blood Urea Nitrogen 7 mg/dL (8-23); Calcium 8.3 mg/dL (8.6-10.4); Carbon Dioxide 25 mmol/L (22-30); Chloride 111 mmol/L (96-108); Globulin 2.2 gm/dL (2.2-3.7); Glomerular Filtration Rate 93; Glucose 98 mg/dL (70-105); Phosphorous 2.4 mg/dL (2.5-4.5)
[2022-08-24] MEDS: ZINC SULFATE 50 MG CAPSULE PO SCH (09:21)
[2022-08-24] MEDS: SENNOSIDES 1 TABLET PO SCH (09:21)
[2022-08-24] MEDS: DOCUSATE SODIUM 100 MG CAPSULE PO SCH ×2 (09:21→20:51)
[2022-08-24] MEDS: ATORVASTATIN 40 MG TABLET PO SCH (09:21)
[2022-08-24] MEDS: ACYCLOVIR 400 MG TABLET PO SCH ×2 (09:21→20:51)
[2022-08-24] MEDS: VITAMIN D3 25 MCG TABLET PO SCH (09:21)
[2022-08-24] MEDS: DULoxetine 30 MG CAPSULE PO SCH (09:21)
[2022-08-24] MEDS: ENOXAPARIN 40 MG/0.4 ML SYRINGE SQ SCH (09:21)
[2022-08-24] MEDS: GABAPENTIN 400 MG CAPSULE PO SCH ×3 (09:21→20:51)
[2022-08-24] MEDS: MULTIVIT,THER IRON,CA,FA & MIN 1 TABLET PO SCH (09:21)
[2022-08-24] MEDS: INSULIN GLARGINE, HUMAN 1 UNIT/0.01 ML SQ SCH ×2 (09:22→20:53)
--- NOTE | 2022-08-24 10:10 | Internal Med Progress Note ---
SUBJECTIVE Subjective Patient information: Note initiated : 08/24/22 at 10:06 am Service Date, if different from initiated Date: [] Patient: Tennille Castillo a 77 y/o F admitted on 08/21/22 for shortness of breath, elevated blood sugar. Chief Complaint: [] Interval history: Ms. Castillo is a 77 year old F history of type 2 diabetes mellitus, chronic back pain from compression fracture of thoracic vertebra, hypothyroidism, essential tremor, dyslipidemia, presenting with a 4-day history of general weakness, loss of appetite, short of breath. She was recently hospitalized in our facility for the treatment of diabetic ketoacidosis and was being discharged home 4 days ago. She claims that since she got back home, she is continue to feel extremely weak, loss of appetite, as well as shortness of breath. She further stated that she did not have her home health physical therapy sections since she was being discharged home. Labs showing leukocytosis with WBCs 16.0. Blood glucose level greater than 700. VBH pH 6.85, bicarb 3.2, anion gap 19. Serum ketone pending. Admission request was called for another round of diabetic ketoacidosis associated with type 2 diabetes mellitus. Pending chest x-ray and urinalysis to rule out infections as trigger of diabetic ketoacidosis. 08/22: Patient's blood pressure dropped to 80s over 40s mmHg earlier this morning. Patient still on insulin drip at 1 unit/hr, and IV fluid D5 1/2NS w/ KCl 20mEq @150cc/hr. Still on Levophed drip, currently at 7 mcg/min. Morning labs pending. Latest blood glucose level 178. Patient is still complaining of severe general weakness. She is coming of shortness of breath. She is complaining of nonproductive cough and respiratory wheezings. She is complaining of shaking chills. She is complaining of sore throat. Blood culture x2 collected. CEPHEID for influenza and CoVID pending. Will also order rapid strep test. Started on Vancomycin and Meropenem (due to penicillin allergy) as empiric broad spectrum antibiotics for clinical sepsis. Continue NPO status with insulin drip, IV fluid infusion, Levophed drip, and the aforementioned antibiotics. Still extremely guarded. Stay in ICU. 08/23: CEPHEID negative for CoVID pneumonia. Rapid strep also negative. Fasting glucose 176 this morning. Levophed drip was being switched off at around 3 AM this morning. Urine output borderline at around 30 cc/h as of this morning. Order cultures no growth today. Patient is feeling better this morning, denies any pain including abdominal pain. She also denies any nausea or vomiting. She denies any insomnia overnight. She has a good appetite and is ready to have her breakfast. Continue vancomycin and Zosyn while monitoring blood culture results. Continuing basal bolus insulin therapy. We will have the Levophed drip standby. We will keep the patient in the ICU for now because patient is still guarded. Physical therapy evaluation and treatments today. 08/24: Fasting glucose 87 this morning. Blood pressure has been okay without Levophed drip. s/p physical therapy evaluation and treatment, and SNF is recommended. Blood cultures no growth to date. She is complaining of mild RUQ abdominal pain, denies nausea vomiting diarrhea or constipation. Good appetite, finished all the food provided. She denies any insomnia overnight. Continue Zosyn while monitoring blood culture results. Abdominal US to rule out any abdominal pathologies. Cut Insulin Lantus from 30 to 25 unit BID and medium scale insulin Lispro SSI AC HS. Transfer to med surg telemetry. Pending SNF placement. Constitutional Vitals: Vital Signs Temp Pulse Resp BP Pulse Ox O2 Del Method O2 Flow Rate 36.1 C 69 10 L 134/76 99 0 08/24/22 08:39 08/24/22 00:39 08/24/22 08:00 08/24/22 08:00 08/24/22 08:00 08/24/22 07:34 08/24/22 04:00 Period Temp Pulse Resp BP Sys/Rosario Pulse Ox O2 Del Method O2 Flow Rate Last 24 Hr 34.9 C-37.2 C 69-71 10-18 109-150/55-90 95-100 Room Air-Room Air 0-0 Intake and Output 08/23/22 08/24/22 08/24/22 19:59 03:59 11:59 Intake Total 360 675 50 Output Total 1154 5564 562 Balance -795 -1275 -512 Weight 68.402 kg Intake & Output: Intake & Output 08/23/22 08/24/22 08/24/22 19:59 03:59 11:59 Intake Total 360 675 50 Output Total 1155 1139 562 Balance -795 -1275 -512 Weight 68.402 kg Intake: IV 0 50 Merrem 1 gm In Sodium Chloride 50 0.9% 50 ml @ 100 mls/hr IV Q24H [facility] Rx#:[id number] Levophed 8 mg In Sodium 0 Chloride 0.9% 242 ml @ 10 MCG/ MIN 18.75 mls/hr IV Q14H [facility] Rx #:[id number] Oral 360 675 Output: Urine Catheter Amount 1156 4984 562 Other: Meal Lunch snack Percent of Meal Consumed 50% 100% Feeding Ability Independent Nourishment/Supplement name peanut butter, krista and saltine crackers Urine Appearance Clear Clear Clear Uretheral (Alcazar) Clear Clear Urine Color Yellow Yellow Bright Yellow Pale Uretheral (Alcazar) Yellow Yellow Yellow Pale Pale Urine Odor Normal Uretheral (Alcazar) Normal Stool Size Moderate Stool Color Brown Stool Consistency Liquid Loose # Bowel Movements 1 0 Head Head exam: Present atraumatic and normal inspection Eye Eye exam: Present normal appearance ENT ENT exam: Present mucous membranes moist, normal exam and normal external ear exam Neck Neck exam: Present normal inspection Respiratory Respiratory exam: Present normal respiratory exam Cardiovascular Cardiovascular exam: Present normal rate and rhythm GI/Abdominal GI/Abdominal exam: Present normal bowel sounds and tenderness Back Exam Back exam: Present normal inspection Neurological Exam Neurological exam: Present alert and oriented X3 Skin Skin exam: Present intact and warm OBJ DATA Labs CBC & Chem 7: 08/24/22 05:28 08/24/22 05:28 Labs: Abnormal Lab Results 08/24/22 08/24/22 08/23/22 05:28 05:28 05:56 WBC 3.3 L Hgb 11.1 L Hct 32.7 L MCV MCHC RDW 15.0 H Plt Count 109 L Immature Gran % (Auto) Neut % (Auto) Lymph % (Auto) 49.5 H Immature Gran # Absolute Neutrophils 1.30 L ABG Methemoglobin VBG pH VBG pCO2 VBG pO2 VBG HCO3 VBG Total CO2 VBG O2 Saturation VBG Base Excess Carboxyhemoglobin POC Sodium Sodium POC Potassium Potassium Chloride 111 H 112 H Carbon Dioxide 18 L POC Total CO2 Anion Gap 7.0 L POC BUN BUN 7 L Creatinine 0.5 L Glucose 203 H POC Glucose Hemoglobin A1c Uric Acid Calcium 8.3 L 8.5 L Phosphorus 2.4 L 1.8 L Magnesium GGT AST 70 H 44 H Alkaline Phosphatase 128 H 121 H Total Protein 4.8 L 4.9 L Albumin 2.6 L 2.7 L Triglycerides Beta-Hydroxybutyrate Urine Protein Urine Glucose (UA) Urine Ketones Urine Occult Blood 08/23/22 08/22/22 08/22/22 05:56 12:08 10:44 WBC Hgb 10.8 L Hct 31.5 L MCV MCHC RDW 15.0 H Plt Count 135 L Immature Gran % (Auto) Neut % (Auto) Lymph % (Auto) Immature Gran # Absolute Neutrophils ABG Methemoglobin 0.3 L VBG pH VBG pCO2 25.9 L VBG pO2 140.2 H VBG HCO3 13.5 L VBG Total CO2 14.3 L VBG O2 Saturation 91.6 H VBG Base Excess -11 L Carboxyhemoglobin 6.5 H POC Sodium Sodium 132 L POC Potassium Potassium Chloride Carbon Dioxide 14 L POC Total CO2 Anion Gap POC BUN BUN Creatinine Glucose 202 H POC Glucose Hemoglobin A1c Uric Acid Calcium 8.4 L Phosphorus Magnesium GGT AST Alkaline Phosphatase Total Protein Albumin Triglycerides Beta-Hydroxybutyrate Urine Protein Urine Glucose (UA) Urine Ketones Urine Occult Blood 08/22/22 08/22/22 08/22/22 10:44 07:40 07:40 WBC 11.2 H Hgb Hct 33.8 L MCV MCHC RDW Plt Count Immature Gran % (Auto) Neut % (Auto) Lymph % (Auto) Immature Gran # 0.06 H Absolute Neutrophils 8.01 H ABG Methemoglobin VBG pH VBG pCO2 VBG pO2 VBG HCO3 VBG Total CO2 VBG O2 Saturation VBG Base Excess Carboxyhemoglobin POC Sodium Sodium 132 L POC Potassium Potassium Chloride Carbon Dioxide 13 L 13 L POC Total CO2 Anion Gap POC BUN BUN Creatinine 1.2 H Glucose 180 H POC Glucose Hemoglobin A1c Uric Acid Calcium 8.3 L Phosphorus 1.8 L Magnesium 1.5 L GGT AST Alkaline Phosphatase 133 H Total Protein 5.4 L Albumin 3.1 L Triglycerides Beta-Hydroxybutyrate Urine Protein Urine Glucose (UA) Urine Ketones Urine Occult Blood 08/22/22 08/21/22 08/21/22 07:39 23:57 23:49 WBC Hgb Hct MCV MCHC RDW Plt Count Immature Gran % (Auto) Neut % (Auto) Lymph % (Auto) Immature Gran # Absolute Neutrophils ABG Methemoglobin 0 L 0.3 L VBG pH 7.14 L* VBG pCO2 27.5 L 32.1 L VBG pO2 129.7 H 45.9 H VBG HCO3 14.5 L 10.8 L* VBG Total CO2 15.3 L 11.7 L VBG O2 Saturation 85.1 H 78.1 H VBG Base Excess -10 L -17 L Carboxyhemoglobin 13.3 H 6.0 H POC Sodium Sodium POC Potassium Potassium Chloride Carbon Dioxide 10 L* POC Total CO2 Anion Gap 22.0 H POC BUN BUN 26 H Creatinine 1.3 H Glucose 223 H POC Glucose Hemoglobin A1c Uric Acid Calcium Phosphorus Magnesium GGT AST Alkaline Phosphatase Total Protein Albumin Triglycerides Beta-Hydroxybutyrate Urine Protein Urine Glucose (UA) Urine Ketones Urine Occult Blood 08/21/22 08/21/22 08/21/22 21:27 19:37 19:36 WBC Hgb Hct MCV MCHC RDW Plt Count Immature Gran % (Auto) Neut % (Auto) Lymph % (Auto) Immature Gran # Absolute Neutrophils ABG Methemoglobin VBG pH 7.03 L* VBG pCO2 26.9 L VBG pO2 45.0 H VBG HCO3 7.0 L* VBG Total CO2 7.8 L* VBG O2 Saturation 74.8 H VBG Base Excess -23 L Carboxyhemoglobin 4.0 H POC Sodium Sodium POC Potassium Potassium Chloride Carbon Dioxide POC Total CO2 Anion Gap POC BUN BUN Creatinine Glucose POC Glucose Hemoglobin A1c 12.0 H Uric Acid Calcium Phosphorus Magnesium GGT AST Alkaline Phosphatase Total Protein Albumin Triglycerides Beta-Hydroxybutyrate 8.81 H Urine Protein Urine Glucose (UA) Urine Ketones Urine Occult Blood 08/21/22 08/21/22 08/21/22 19:36 17:08 16:15 WBC Hgb Hct MCV MCHC RDW Plt Count Immature Gran % (Auto) Neut % (Auto) Lymph % (Auto) Immature Gran # Absolute Neutrophils ABG Methemoglobin 0.3 L VBG pH 6.85 L* VBG pCO2 18.7 L* VBG pO2 132.3 H VBG HCO3 3.2 L* VBG Total CO2 3.7 L* VBG O2 Saturation 90.4 H VBG Base Excess -30 L Carboxyhemoglobin 6.7 H POC Sodium Sodium POC Potassium Potassium Chloride Carbon Dioxide 5 L* POC Total CO2 Anion Gap 27.0 H POC BUN BUN 24 H Creatinine 1.2 H Glucose 508 H* POC Glucose Hemoglobin A1c Uric Acid 8.5 H Calcium 7.6 L Phosphorus Magnesium GGT 69 H AST Alkaline Phosphatase 144 H Total Protein 5.6 L Albumin 3.1 L Triglycerides 344 H Beta-Hydroxybutyrate Urine Protein Trace A Urine Glucose (UA) >=1000 A Urine Ketones >=80 A Urine Occult Blood Small A 08/21/22 08/21/22 08/21/22 15:55 15:38 14:42 WBC 16.0 H Hgb Hct MCV 102.7 H MCHC 30.5 L RDW 14.9 H Plt Count Immature Gran % (Auto) 1.8 H Neut % (Auto) 78.9 H Lymph % (Auto) 14.0 L Immature Gran # 0.29 H Absolute Neutrophils 12.66 H ABG Methemoglobin VBG pH VBG pCO2 VBG pO2 VBG HCO3 VBG Total CO2 VBG O2 Saturation VBG Base Excess Carboxyhemoglobin POC Sodium Sodium 126 L POC Potassium Potassium 6.1 H* Chloride 84 L Carbon Dioxide 2 L* POC Total CO2 Anion Gap 40.0 H POC BUN BUN 25 H Creatinine 1.6 H Glucose 996 H* POC Glucose Hemoglobin A1c Uric Acid Calcium Phosphorus 8.1 H* Magnesium GGT AST Alkaline Phosphatase 166 H Total Protein Albumin Triglycerides Beta-Hydroxybutyrate Urine Protein Urine Glucose (UA) Urine Ketones Urine Occult Blood 08/21/22 14:42 WBC Hgb Hct MCV MCHC RDW Plt Count Immature Gran % (Auto) Neut % (Auto) Lymph % (Auto) Immature Gran # Absolute Neutrophils ABG Methemoglobin VBG pH VBG pCO2 VBG pO2 VBG HCO3 VBG Total CO2 VBG O2 Saturation VBG Base Excess Carboxyhemoglobin POC Sodium 125 L Sodium POC Potassium 5.9 H* Potassium Chloride Carbon Dioxide POC Total CO2 5.0 L* Anion Gap POC BUN 29 H BUN Creatinine Glucose POC Glucose > 700 H* Hemoglobin A1c Uric Acid Calcium Phosphorus Magnesium GGT AST Alkaline Phosphatase Total Protein Albumin Triglycerides Beta-Hydroxybutyrate Urine Protein Urine Glucose (UA) Urine Ketones Urine Occult Blood Meds: Medications Acetaminophen (Acetaminophen 325 Mg Tablet) 650 mg PO Q4-6HP PRN; Protocol PRN Reason: Per Pain Protocol/Fever > 101 Last Admin: 08/24/22 07:54 Dose: 650 mg Acyclovir (Acyclovir 400 Mg Tablet) 400 mg PO BID PEG; Protocol Last Admin: 08/24/22 09:21 Dose: 400 mg Albuterol/Ipratropium (Ipratropium/Albuterol 3 Ml Ampul.Neb) 3 ml NEB Q4HRT PRN PRN Reason: Wheezing Lipase/Protease/Amylase (Lipase/Protease/Amylase 1 Cap Capsule) 1 cap PO TIDCC [facility] Last Admin: 08/24/22 07:54 Dose: 1 cap Atorvastatin Calcium (Atorvastatin 40 Mg Tablet) 40 mg PO QDAY [facility] Last Admin: 08/24/22 09:21 Dose: 40 mg Dextrose (Dextrose 50% 50 Ml Vial) 0 ml IV UD PRN PRN Reason: Per Sliding Scale Diagnostic Test (Pha) (Accu-Chek 1 Each Strip) 1 each FS ACHS [facility] Last Admin: 08/24/22 07:06 Dose: 1 each Docusate Sodium (Docusate Sodium 100 Mg Capsule) 100 mg PO BID [facility] Last Admin: 08/24/22 09:21 Dose: 100 mg Duloxetine HCl (Duloxetine 30 Mg Capsule) 30 mg PO QDAY [facility] Last Admin: 08/24/22 09:21 Dose: 30 mg Enoxaparin Sodium (Enoxaparin 40 Mg/0.4 Ml Syringe) 40 mg SQ DAILY [facility] Last Admin: 08/24/22 09:21 Dose: 40 mg Gabapentin (Gabapentin 400 Mg Capsule) 800 mg PO TID [facility] Last Admin: 08/24/22 09:21 Dose: 800 mg Glucose (Dextrose 31 Gm Oral.Susp) 15 gm PO PRN PRN PRN Reason: Hypoglycemia Hyoscyamine (Hyoscyamine Sulfate 0.125 Mg Tablet) 0.125 mg PO Q6HP PRN PRN Reason: Abdominal Discomfort Last Admin: 08/24/22 07:11 Dose: 0.125 mg Meropenem 1 gm/ Sodium (Chloride) 50 mls @ 100 mls/hr IV Q24H [facility]; Protocol Last Infusion: 08/24/22 08:25 Dose: Infused Norepinephrine Bitartrate 8 mg (/ Sodium Chloride) 250 mls @ 18.75 mls/hr IV PRN PRN; Protocol PRN Reason: hypotension Ibuprofen (Ibuprofen 200 Mg Tablet) 200 mg PO Q6HP PRN PRN Reason: Pain Last Admin: 08/23/22 16:45 Dose: 200 mg Insulin Glargine (Insulin Glargine, Human 1 Unit/0.01 Ml) 25 unit SQ BID [facility] Last Admin: 08/24/22 09:22 Dose: 25 units Insulin Human Lispro (Insulin Lispro 1 Unit/0.01 Ml Unit) 0 unit SQ ACHS [facility]; Protocol Last Admin: 08/24/22 07:07 Dose: Not Given Iron Carb/Multivit/Cano [place] Pena/Folic Acid (Multivit,Ther Iron,Ca,Fa & Min 1 Tablet) 1 tab PO DAILY [facility] Last Admin: 08/24/22 09:21 Dose: 1 tab Levothyroxine Sodium (Levothyroxine 125 Mcg Tablet) 125 mcg PO QAMAC [facility] Last Admin: 08/24/22 07:12 Dose: 125 mcg Methocarbamol (Methocarbamol 500 Mg Tablet) 500 mg PO TIDP PRN PRN Reason: Muscle Spasm Last Admin: 08/24/22 07:12 Dose: 500 mg Morphine Sulfate (Morphine 4 Mg/Ml Vial) 4 mg IV Q2HP PRN; Protocol PRN Reason: Per Pain Protocol Last Admin: 08/23/22 23:09 Dose: 4 mg Ondansetron HCl (Ondansetron 4 Mg/2 Ml Vial) 4 mg IV Q4-6HP PRN; Protocol PRN Reason: Nausea And Vomiting Phenol (Phenol/Sodium Phenolate 5 [place] Bottle 180ml) 5 spray SSP Q2HP PRN PRN Reason: Sore Throat Last Admin: 08/22/22 20:29 Dose: 5 spray Promethazine HCl (Promethazine 25 Mg/Ml Vial) 25 mg IV Q4-6HP PRN; Protocol PRN Reason: Nausea And Vomiting Senna (Sennosides 1 Tablet) 1 tab PO DAILY [facility] Last Admin: 08/24/22 09:21 Dose: 1 tab Sodium Chloride (0.9 % Sodium Chloride 10 Ml Syringe) 10 ml IV Q8 [facility] Last Admin: 08/24/22 06:17 Dose: 10 ml Trazodone HCl (Trazodone Hcl 100 Mg Tablet) 100 mg PO HSP PRN PRN Reason: insomnia Last Admin: 08/23/22 22:06 Dose: 100 mg Vitamin D (Vitamin D3 25 Mcg Tablet) 50 mcg PO DAILY [facility] Last Admin: 08/24/22 09:21 Dose: 50 mcg Zinc Sulfate (Zinc Sulfate 50 Mg Capsule) 50 mg PO DAILY [facility] Last Admin: 08/24/22 09:21 Dose: 50 mg ABG Interpretation ABG results: 08/21/22 08/21/22 08/21/22 16:15 20:07 21:27 ABG Methemoglobin 0.3 L TNP 0.4 VBG pH 6.85 L* TNP 7.03 L* VBG pCO2 18.7 L* TNP 26.9 L VBG pO2 132.3 H TNP 45.0 H VBG HCO3 3.2 L* TNP 7.0 L* VBG Total CO2 3.7 L* TNP 7.8 L* VBG O2 Saturation 90.4 H TNP 74.8 H VBG Base Excess -30 L TNP -23 L 08/21/22 08/22/22 08/22/22 23:57 07:39 10:44 ABG Methemoglobin 0.3 L 0 L 0.3 L VBG pH 7.14 L* 7.34 7.34 VBG pCO2 32.1 L 27.5 L 25.9 L VBG pO2 45.9 H 129.7 H 140.2 H VBG HCO3 10.8 L* 14.5 L 13.5 L VBG Total CO2 11.7 L 15.3 L 14.3 L VBG O2 Saturation 78.1 H 85.1 H 91.6 H VBG Base Excess -17 L -10 L -11 L A/P Assessment and plan (1) DKA, type 2: Status: Acute (2) Compression fracture of body of thoracic vertebra: Status: Acute (3) Hyperkalemia: Status: Acute (4) Hypothyroidism: Status: Chronic (5) Mixed dyslipidemia: Status: Acute (6) Essential tremor: Status: Chronic (7) Clinical sepsis: Status: Acute (8) Septic shock: Status: Acute (9) Transaminitis: Status: Acute Narrative A/P Narrative: Assessment and Plans: 1. Diabetic ketoacidosis associated with type 2 diabetes mellitus: Inpatient med surg telemetry Neurontin HgA1c 12.0 Insulin Lantus 30-->25 unit BID to avoid hypoglycemia Accu Check AC HS Insulin Lispro SSI AC HS medical educator referral Diabetic diet 2. Chronic back pain secondary to compression fracture of thoracic vertebra: Tylenol Oxycodone Morphine IV Physical therapy evaluation and treatment-->recs. SNF placement 3. Hypothyroidism: Continue thyroid replacement therapy 4. Mixed dyslipidemia: Continue Lipitor 5. Essential tremor: Hold Propranolol due to recent septic shock 6. Hyperkalemia: RESOLVED Calcium gluconate Insulin drip according to DKA protocol BMP q6hr to trend serum potassium level 7. Clinical sepsis with septic shock: Blood culture X2, no growth to date Rapid strep test negative CEPHEID for influenza and CoVID negative cbc w/ auto diff in the morning to trend WBC Broad spectrum antibiotics with Meropenem (penicillin allergy) Saline lock 8. RUQ abdominal pain with transaminitis: US abdomen to rule out any liver/gallbladder pathologies GI ppx: not currently indicated DVT ppx: Lovenox Code status: DNR Prognosis: Stable Disposition: inpatient med surg telemetry; pending SNF placement Time Spent With Patient Time: Total time spent is greater than 50% in coordination of care (as documented) at patient's floor/unit and/or counseling patient: Total time spent with greater than 50% in coordination of care (as documented) at patient's floor/unit and/or counseling patient:: 25 - 35 minutes QUALITY VTE Deep Vein Thrombosis/Pulmonary Embolism Present on Admission: No
--- NOTE | 2022-08-24 15:06 | Ultrasound Report ---
INDICATION: RUQ abdominal pain TECHNIQUE: Grayscale and color flow Doppler spectral imaging COMPARISON: Previous CT scan dated 05/06/2022 FINDINGS: Pancreas:Visualized portions of the pancreas are negative Gallbladder:Previous cholecystectomy Bile Ducts:No intra or extrahepatic bile duct dilatation. Common bile duct measures8 mm Liver:Mildly heterogeneous parenchyma. No focal hepatic mass Liver [id number] cm Spleen:No splenomegaly. No focal intrasplenic abnormality. Normal hepatopedal portal venous flow Kidneys: Right kidney measures 10.8 x 4.6 x 4.6 cm. No solid or cystic mass. No hydronephrosis Left kidney measures 11.2 x 5.4 x 4.4 cm. Images are suspicious for a possible solid left upper pole renal mass. This measures 2.0 x 1.9 x 2.1 cm. This is not identified on prior examination and is not considered a definite lesion. Follow-up CT scan or MRI scan are recommended. Vascular:No abdominal aortic aneurysm IMPRESSION: 1. Previous cholecystectomy. No bile duct dilatation 2. Possible left upper pole solid renal mass. This is not identified on 05/06/2022. Follow-up CT scan or MRI scan recommended Interpreted and Authenticated by: Will Peck 08/24/22
[2022-08-24] MEDS: morphine 4 MG/ML VIAL IV PRN (15:17)
[2022-08-24] MEDS ORDERED: POTASSIUM CHLORIDE 20 MEQ TABLET PO SCH (17:30)
[2022-08-24] MEDS: traZODone HCL 100 MG TABLET PO PRN (23:43)
[2022-08-25] MEDS: 0.9 % SODIUM CHLORIDE 10 ML SYRINGE IV SCH ×3 (05:33→21:22)
[2022-08-25 06:51] LABS: Basophils # (Auto) 0.02 K/mcL (0.00-0.30); Basophils % (Auto) 0.6 % (0.0-2.0); Eosinophils # (Auto) 0.11 K/mcL (0.00-0.70); Eosinophils % (Auto) 3.3 % (0.0-7.0); Hematocrit 32.6 % (34.1-44.9); Hemoglobin 11.2 g/dL (11.2-15.7); Mean Cell Volume 86.9 fL (80.0-100.0); Mean Corpuscular HGB Conc 34.4 g/dL (31.0-36.0); Mean Platelet Volume 10.8 fL (8.8-12.5); Monocytes # (Auto) 0.25 K/mcL (0.10-0.90); Monocytes % (Auto) 7.5 % (1.0-12.0); Neutrophils % (Auto) 43.3 % (38.0-78.0); Platelet Count 110 K/mcL (140-440); RBC 3.75 M/mcL (3.59-5.38); Red Cell Distribution Width 14.8 % (11.5-14.5); WBC 3.3 K/mcL (4.5-11.0)
[2022-08-25 07:06] LABS: Phosphorous 2.6 mg/dL (2.5-4.5)
[2022-08-25 07:11] LABS: ALT/SGPT 34 U/L (<40); AST/SGOT 93 U/L (<32); Albumin 2.6 gm/dL (3.2-5.2); Alkaline Phosphatase 129 U/L (39-117); Bilirubin,Total 0.3 mg/dL (0.1-1.0); Blood Urea Nitrogen 7 mg/dL (8-23); Calcium 8.2 mg/dL (8.6-10.4); Carbon Dioxide 28 mmol/L (22-30); Chloride 108 mmol/L (96-108); Globulin 2.5 gm/dL (2.2-3.7); Glomerular Filtration Rate 88; Glucose 114 mg/dL (70-105)
--- NOTE | 2022-08-25 07:31 | Internal Med Progress Note ---
SUBJECTIVE Subjective Patient information: Note initiated : 08/25/22 at 7:29 am Service Date, if different from initiated Date: [] Patient: Tennille Castillo a 77 y/o F admitted on 08/21/22 for shortness of breath, elevated blood sugar. Chief Complaint: [] Interval history: Ms. Castillo is a 77 year old F history of type 2 diabetes mellitus, chronic back pain from compression fracture of thoracic vertebra, hypothyroidism, essential tremor, dyslipidemia, presenting with a 4-day history of general weakness, loss of appetite, short of breath. She was recently hospitalized in our facility for the treatment of diabetic ketoacidosis and was being discharged home 4 days ago. She claims that since she got back home, she is continue to feel extremely weak, loss of appetite, as well as shortness of breath. She further stated that she did not have her home health physical therapy sections since she was being discharged home. Labs showing leukocytosis with WBCs 16.0. Blood glucose level greater than 700. VBH pH 6.85, bicarb 3.2, anion gap 19. Serum ketone pending. Admission request was called for another round of diabetic ketoacidosis associated with type 2 diabetes mellitus. Pending chest x-ray and urinalysis to rule out infections as trigger of diabetic ketoacidosis. 08/22: Patient's blood pressure dropped to 80s over 40s mmHg earlier this morning. Patient still on insulin drip at 1 unit/hr, and IV fluid D5 1/2NS w/ KCl 20mEq @150cc/hr. Still on Levophed drip, currently at 7 mcg/min. Morning labs pending. Latest blood glucose level 178. Patient is still complaining of severe general weakness. She is coming of shortness of breath. She is complaining of nonproductive cough and respiratory wheezings. She is complaining of shaking chills. She is complaining of sore throat. Blood culture x2 collected. CEPHEID for influenza and CoVID pending. Will also order rapid strep test. Started on Vancomycin and Meropenem (due to penicillin allergy) as empiric broad spectrum antibiotics for clinical sepsis. Continue NPO status with insulin drip, IV fluid infusion, Levophed drip, and the aforementioned antibiotics. Still extremely guarded. Stay in ICU. 08/23: CEPHEID negative for CoVID pneumonia. Rapid strep also negative. Fasting glucose 176 this morning. Levophed drip was being switched off at around 3 AM this morning. Urine output borderline at around 30 cc/h as of this morning. Order cultures no growth today. Patient is feeling better this morning, denies any pain including abdominal pain. She also denies any nausea or vomiting. She denies any insomnia overnight. She has a good appetite and is ready to have her breakfast. Continue vancomycin and Zosyn while monitoring blood culture results. Continuing basal bolus insulin therapy. We will have the Levophed drip standby. We will keep the patient in the ICU for now because patient is still guarded. Physical therapy evaluation and treatments today. 08/24: Fasting glucose 87 this morning. Blood pressure has been okay without Levophed drip. s/p physical therapy evaluation and treatment, and SNF is recommended. Blood cultures no growth to date. She is complaining of mild RUQ abdominal pain, denies nausea vomiting diarrhea or constipation. Good appetite, finished all the food provided. She denies any insomnia overnight. Continue Zosyn while monitoring blood culture results. Abdominal US to rule out any abdominal pathologies. Cut Insulin Lantus from 30 to 25 unit BID and medium scale insulin Lispro SSI AC HS. Transfer to med surg telemetry. Pending SNF placement. 08/25: Patient was up all night, finally went to sleep, currently sleeping. Blood cultures no growth to date. Serum potassium level 3.0. Serum Mg level 1.7. Fasting glucose 114. Abdominal US showing 2.0X1.9X2.1cm possible solid left upper pole renal mass. CT abdomen pelvis w/ contrast to follow up the possible left renal mass. Increase potassium chloride from 20 to 40mEq PO BID for better potassium replacement. Continue Lantus 25 unit BID and medium scale insulin Lispro SSI AC HS. Continue Zosyn while monitoring blood culture results. Stays in med surg telemetry. Pending SNF placement. Constitutional Vitals: Vital Signs Temp Pulse Resp BP Pulse Ox O2 Del Method O2 Flow Rate 36.1 C L 154 H 12 136/47 95 0 08/25/22 04:00 08/24/22 20:23 08/25/22 04:26 08/25/22 04:00 08/25/22 04:26 08/25/22 04:00 08/25/22 04:00 Period Temp Pulse Resp BP Sys/Roasrio Pulse Ox O2 Del Method O2 Flow Rate Last 24 Hr 36.1 C-36.6 C 70-154 10-18 134-161/47-85 95-100 Room Air-Room Air 0-0 Intake and Output 08/24/22 08/25/22 08/25/22 19:59 03:59 11:59 Intake Total 1360 480 240 Output Total 1225 1775 Balance 135 -1295 240 Weight 67.495 kg Intake & Output: Intake & Output 08/24/22 08/25/22 08/25/22 19:59 03:59 11:59 Intake Total 1360 480 240 Output Total 1225 1775 Balance 135 -1295 240 Weight 67.495 kg Intake: Nourishment/Supplement quantity 240 (ml) Oral 1360 240 240 Output: Void Amount 1225 1775 Other: Meal Dinner snack Percent of Meal Consumed 100% 100% Nourishment/Supplement name peanut butter, saltine and krista crackers. Tyler diet cola Urine Appearance Clear Clear Urine Color Yellow Bright Yellow Urine Odor Normal Stool Size Smear Stool Color Brown Stool Consistency Normal for Patient Exam: Sleeping Head Head exam: Present atraumatic and normal inspection Eye Eye exam: Present normal appearance ENT ENT exam: Present mucous membranes moist, normal exam and normal external ear e xam Neck Neck exam: Present normal inspection Respiratory Respiratory exam: Present normal respiratory exam Cardiovascular Cardiovascular exam: Present normal rate and rhythm GI/Abdominal GI/Abdominal exam: Present normal bowel sounds Back Exam Back exam: Present normal inspection Neurological Exam Additional comments: Sleeping Skin Skin exam: Present intact and warm OBJ DATA Labs CBC & Chem 7: 08/25/22 05:15 08/25/22 05:15 Labs: Abnormal Lab Results 08/25/22 08/25/22 08/24/22 05:15 05:15 05:28 WBC 3.3 L Hgb Hct 32.6 L RDW 14.8 H Plt Count 110 L Lymph % (Auto) Immature Gran # Absolute Neutrophils 1.44 L ABG Methemoglobin VBG pCO2 VBG pO2 VBG HCO3 VBG Total CO2 VBG O2 Saturation VBG Base Excess Carboxyhemoglobin Sodium Potassium 3.0 L Chloride 111 H Carbon Dioxide Anion Gap 7.0 L 7.0 L BUN 7 L 7 L Creatinine 0.5 L Glucose 114 H Calcium 8.2 L 8.3 L Phosphorus 2.4 L Magnesium AST 93 H 70 H Alkaline Phosphatase 129 H 128 H Total Protein 5.1 L 4.8 L Albumin 2.6 L 2.6 L 08/24/22 08/23/22 08/23/22 05:28 05:56 05:56 WBC 3.3 L Hgb 11.1 L 10.8 L Hct 32.7 L 31.5 L RDW 15.0 H 15.0 H Plt Count 109 L 135 L Lymph % (Auto) 49.5 H Immature Gran # Absolute Neutrophils 1.30 L ABG Methemoglobin VBG pCO2 VBG pO2 VBG HCO3 VBG Total CO2 VBG O2 Saturation VBG Base Excess Carboxyhemoglobin Sodium Potassium Chloride 112 H Carbon Dioxide 18 L Anion Gap BUN Creatinine Glucose 203 H Calcium 8.5 L Phosphorus 1.8 L Magnesium AST 44 H Alkaline Phosphatase 121 H Total Protein 4.9 L Albumin 2.7 L 08/22/22 08/22/22 08/22/22 12:08 10:44 10:44 WBC Hgb Hct RDW Plt Count Lymph % (Auto) Immature Gran # Absolute Neutrophils ABG Methemoglobin 0.3 L VBG pCO2 25.9 L VBG pO2 140.2 H VBG HCO3 13.5 L VBG Total CO2 14.3 L VBG O2 Saturation 91.6 H VBG Base Excess -11 L Carboxyhemoglobin 6.5 H Sodium 132 L 132 L Potassium Chloride Carbon Dioxide 14 L 13 L Anion Gap BUN Creatinine Glucose 202 H Calcium 8.4 L Phosphorus Magnesium 1.5 L AST Alkaline Phosphatase Total Protein Albumin 08/22/22 08/22/22 08/22/22 07:40 07:40 07:39 WBC 11.2 H Hgb Hct 33.8 L RDW Plt Count Lymph % (Auto) Immature Gran # 0.06 H Absolute Neutrophils 8.01 H ABG Methemoglobin 0 L VBG pCO2 27.5 L VBG pO2 129.7 H VBG HCO3 14.5 L VBG Total CO2 15.3 L VBG O2 Saturation 85.1 H VBG Base Excess -10 L Carboxyhemoglobin 13.3 H Sodium Potassium Chloride Carbon Dioxide 13 L Anion Gap BUN Creatinine 1.2 H Glucose 180 H Calcium 8.3 L Phosphorus 1.8 L Magnesium AST Alkaline Phosphatase 133 H Total Protein 5.4 L Albumin 3.1 L Meds: Medications Acetaminophen (Acetaminophen 325 Mg Tablet) 650 mg PO Q4-6HP PRN; Protocol PRN Reason: Per Pain Protocol/Fever > 101 Last Admin: 08/24/22 07:54 Dose: 650 mg Acyclovir (Acyclovir 400 Mg Tablet) 400 mg PO BID ON LICENSE OF [facility]; Protocol Last Admin: 08/24/22 20:51 Dose: 400 mg Albuterol/Ipratropium (Ipratropium/Albuterol 3 Ml Ampul.Neb) 3 ml NEB Q4HRT PRN PRN Reason: Wheezing Lipase/Protease/Amylase (Lipase/Protease/Amylase 1 Cap Capsule) 1 cap PO TIDCC ON LICENSE OF [facility] Last Admin: 08/24/22 17:18 Dose: 1 cap Atorvastatin Calcium (Atorvastatin 40 Mg Tablet) 40 mg PO QDAY ON LICENSE OF [facility] Last Admin: 08/24/22 09:21 Dose: 40 mg Dextrose (Dextrose 50% 50 Ml Vial) 0 ml IV UD PRN PRN Reason: Per Sliding Scale Diagnostic Test (Pha) (Accu-Chek 1 Each Strip) 1 each FS ACHS ON LICENSE OF [facility] Last Admin: 08/25/22 00:35 Dose: 1 each Docusate Sodium (Docusate Sodium 100 Mg Capsule) 100 mg PO BID ON LICENSE OF [facility] Last Admin: 08/24/22 20:51 Dose: 100 mg Duloxetine HCl (Duloxetine 30 Mg Capsule) 30 mg PO QDAY ON LICENSE OF [facility] Last Admin: 08/24/22 09:21 Dose: 30 mg Enoxaparin Sodium (Enoxaparin 40 Mg/0.4 Ml Syringe) 40 mg SQ DAILY ON LICENSE OF [facility] Last Admin: 08/24/22 09:21 Dose: 40 mg Gabapentin (Gabapentin 400 Mg Capsule) 800 mg PO TID ON LICENSE OF [facility] Last Admin: 08/24/22 20:51 Dose: 800 mg Glucose (Dextrose 31 Gm Oral.Susp) 15 gm PO PRN PRN PRN Reason: Hypoglycemia Hyoscyamine (Hyoscyamine Sulfate 0.125 Mg Tablet) 0.125 mg PO Q6HP PRN PRN Reason: Abdominal Discomfort Last Admin: 08/24/22 07:11 Dose: 0.125 mg Meropenem 1 gm/ Sodium (Chloride) 50 mls @ 100 mls/hr IV Q24H PEG; Protocol Last Infusion: 08/24/22 08:25 Dose: Infused Ibuprofen (Ibuprofen 200 Mg Tablet) 200 mg PO Q6HP PRN PRN Reason: Pain Last Admin: 08/23/22 16:45 Dose: 200 mg Insulin Glargine (Insulin Glargine, Human 1 Unit/0.01 Ml) 25 unit SQ BID ON LICENSE OF [facility] Last Admin: 08/24/22 20:53 Dose: 25 units Insulin Human Lispro (Insulin Lispro 1 Unit/0.01 Ml Unit) 0 unit SQ ACHS ON LICENSE OF [facility]; Protocol Last Admin: 08/24/22 20:52 Dose: 2 unit Iron Carb/Multivit/Upson/Folic Acid (Multivit,Ther Iron,Ca,Fa & Min 1 Tablet) 1 tab PO DAILY ON LICENSE OF [facility] Last Admin: 08/24/22 09:21 Dose: 1 tab Levothyroxine Sodium (Levothyroxine 125 Mcg Tablet) 125 mcg PO QAMAC ON LICENSE OF [facility] Last Admin: 08/24/22 07:12 Dose: 125 mcg Methocarbamol (Methocarbamol 500 Mg Tablet) 500 mg PO TIDP PRN PRN Reason: Muscle Spasm Last Admin: 08/24/22 19:01 Dose: 500 mg Morphine Sulfate (Morphine 4 Mg/Ml Vial) 4 mg IV Q2HP PRN; Protocol PRN Reason: Per Pain Protocol Last Admin: 08/24/22 15:17 Dose: 4 mg Ondansetron HCl (Ondansetron 4 Mg/2 Ml Vial) 4 mg IV Q4-6HP PRN; Protocol PRN Reason: Nausea And Vomiting Phenol (Phenol/Sodium Phenolate 5 [place] Bottle 180ml) 5 spray SSP Q2HP PRN PRN Reason: Sore Throat Last Admin: 08/22/22 20:29 Dose: 5 spray Potassium Chloride (Potassium Chloride 20 Meq Tablet) 40 meq PO BIDCC ON LICENSE OF [facility] Promethazine HCl (Promethazine 25 Mg/Ml Vial) 25 mg IV Q4-6HP PRN; Protocol PRN Reason: Nausea And Vomiting Senna (Sennosides 1 Tablet) 1 tab PO DAILY ON LICENSE OF [facility] Last Admin: 08/24/22 09:21 Dose: 1 tab Sodium Chloride (0.9 % Sodium Chloride 10 Ml Syringe) 10 ml IV Q8 ON LICENSE OF [facility] Last Admin: 08/25/22 05:33 Dose: 10 ml Trazodone HCl (Trazodone Hcl 100 Mg Tablet) 100 mg PO HSP PRN PRN Reason: insomnia Last Admin: 08/24/22 23:43 Dose: 100 mg Vitamin D (Vitamin D3 25 Mcg Tablet) 50 mcg PO DAILY ON LICENSE OF [facility] Last Admin: 08/24/22 09:21 Dose: 50 mcg Zinc Sulfate (Zinc Sulfate 50 Mg Capsule) 50 mg PO DAILY PEG Last Admin: 08/24/22 09:21 Dose: 50 mg ABG Interpretation ABG results: 08/21/22 08/21/22 08/21/22 16:15 20:07 21:27 ABG Methemoglobin 0.3 L TNP 0.4 VBG pH 6.85 L* TNP 7.03 L* VBG pCO2 18.7 L* TNP 26.9 L VBG pO2 132.3 H TNP 45.0 H VBG HCO3 3.2 L* TNP 7.0 L* VBG Total CO2 3.7 L* TNP 7.8 L* VBG O2 Saturation 90.4 H TNP 74.8 H VBG Base Excess -30 L TNP -23 L 08/21/22 08/22/22 08/22/22 23:57 07:39 10:44 ABG Methemoglobin 0.3 L 0 L 0.3 L VBG pH 7.14 L* 7.34 7.34 VBG pCO2 32.1 L 27.5 L 25.9 L VBG pO2 45.9 H 129.7 H 140.2 H VBG HCO3 10.8 L* 14.5 L 13.5 L VBG Total CO2 11.7 L 15.3 L 14.3 L VBG O2 Saturation 78.1 H 85.1 H 91.6 H VBG Base Excess -17 L -10 L -11 L A/P Assessment and plan (1) DKA, type 2: Status: Acute (2) Compression fracture of body of thoracic vertebra: Status: Acute (3) Hypothyroidism: Status: Chronic (4) Mixed dyslipidemia: Status: Acute (5) Essential tremor: Status: Chronic (6) Clinical sepsis: Status: Acute (7) Septic shock: Status: Acute (8) Transaminitis: Status: Acute (9) Left renal mass: Status: Acute (10) Hypokalemia: Status: Acute Narrative A/P Narrative: Assessment and Plans: 1. Diabetic ketoacidosis associated with type 2 diabetes mellitus: Inpatient med surg telemetry Neurontin HgA1c 12.0 Insulin Lantus 25 unit BID Accu Check AC HS Insulin Lispro SSI AC HS primary special educator referral Diabetic diet 2. Chronic back pain secondary to compression fracture of thoracic vertebra: Tylenol Oxycodone Morphine IV Physical therapy evaluation and treatment-->recs. SNF placement 3. Hypothyroidism: Continue thyroid replacement therapy 4. Mixed dyslipidemia: Continue Lipitor 5. Essential tremor: Hold Propranolol due to recent septic shock 6. Hypokalemia: Potassium chloride oral replacement CMP in the morning to trend serum potassium level Also check serum Mg level, and replace if needed 7. Clinical sepsis with septic shock: Blood culture X2, no growth to date Rapid strep test negative CEPHEID for influenza and CoVID negative cbc w/ auto diff in the morning to trend WBC Broad spectrum antibiotics with Meropenem (penicillin allergy) Saline lock 8. RUQ abdominal pain with transaminitis: US abdomen to rule out any liver/gallbladder pathologies-->showing possible left renal mass, follow up with CT abdomen pelvis w/ contrast 9. Possible left renal mass: CT abdomen pelvis w/ contrast to follow up GI ppx: not currently indicated DVT ppx: Lovenox Code status: DNR Prognosis: Stable Disposition: inpatient med surg telemetry; pending SNF placement Time Spent With Patient Time: Total time spent is greater than 50% in coordination of care (as documented) at patient's floor/unit and/or counseling patient: Total time spent with greater than 50% in coordination of care (as documented) at patient's floor/unit and/or counseling patient:: 25 - 35 minutes QUALITY VTE Deep Vein Thrombosis/Pulmonary Embolism Present on Admission: No
[2022-08-25] MEDS: LEVOTHYROXINE 125 MCG TABLET PO SCH (07:32)
[2022-08-25] MEDS: INSULIN LISPRO 1 UNIT/0.01 ML UNIT SQ SCH ×4 (07:42→20:44)
[2022-08-25] MEDS ORDERED: IOPAMIDOL 100 ML BOTTLE IV ONE (08:16)
[2022-08-25] MEDS: LIPASE/PROTEASE/AMYLASE 1 CAP CAPSULE PO SCH ×3 (08:17→16:57)
[2022-08-25] MEDS: POTASSIUM CHLORIDE 20 MEQ TABLET PO SCH ×2 (08:21→16:57)
[2022-08-25] MEDS: INSULIN GLARGINE, HUMAN 1 UNIT/0.01 ML SQ SCH ×2 (08:33→20:50)
[2022-08-25] MEDS: GABAPENTIN 400 MG CAPSULE PO SCH ×3 (08:34→20:42)
[2022-08-25] MEDS: ATORVASTATIN 40 MG TABLET PO SCH (08:34)
[2022-08-25] MEDS: DOCUSATE SODIUM 100 MG CAPSULE PO SCH ×2 (08:34→20:42)
[2022-08-25] MEDS: VITAMIN D3 25 MCG TABLET PO SCH (08:34)
[2022-08-25] MEDS: ACYCLOVIR 400 MG TABLET PO SCH ×2 (08:34→20:42)
[2022-08-25] MEDS: DULoxetine 30 MG CAPSULE PO SCH (08:34)
[2022-08-25] MEDS: SENNOSIDES 1 TABLET PO SCH (08:34)
[2022-08-25] MEDS: ENOXAPARIN 40 MG/0.4 ML SYRINGE SQ SCH (08:34)
[2022-08-25] MEDS: MULTIVIT,THER IRON,CA,FA & MIN 1 TABLET PO SCH (08:34)
[2022-08-25] MEDS: ZINC SULFATE 50 MG CAPSULE PO SCH (08:34)
[2022-08-25] MEDS: MEROPENEM 1 GM in 0.9 % SODIUM CHLORIDE 50 ML IV SCH (08:55)
--- NOTE | 2022-08-25 10:05 | Cat Scan Report ---
INDICATION: lef renal mass COMPARISON: Previous examinations dated 05/06/2022, 02/25/2018. Previous ultrasound dated 08/24/2022 TECHNIQUE: Axial images were obtained through the abdomen and pelvis. Sagittally and coronally reformatted images. 80 mL Isovue 370 injected intravenously. Oral contrast material was not administered. Arterial phase, venous phase, delayed phase imaging performed FINDINGS: Lung bases:Negative. No pulmonary parenchymal nodule. No pleural fluid or pericardial fluid. There is severe coronary artery calcification Liver:Negative. No focal intrahepatic mass. No focal abnormality. Liver contour is smooth. No evidence for cirrhosis Gallbladder, bilary:Previous cholecystectomy. No dilated bile ducts Spleen:No splenomegaly. Normal enhancement of splenic and portal veins. Pancreas:No pancreatic mass. No peripancreatic abnormality Adrenal glands:Negative Kidneys,ureters,bladder:Previous ultrasound was suggestive of a possible left renal mass. 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 This is stable since 02/25/2018. No solid renal mass. No significant abnormality. There are small benign cysts bilaterally No hydroureter. No ureteral calculus. Bladder is distended. There is gas within the nondependent portion of the urinary bladder. Clinical correlation for history of previous instrumentation is necessary. In the absence of catheterization a fistula or infection are possible Gastrointestinal:No detectable colonic mass. There is no diverticulitis. Negative small bowel. No mechanical small bowel obstruction. No bowel wall thickening. No focal abnormality. Negative stomach and duodenum. No focal abnormality. Appendix: The appendix is negative Vascular: There is calcification of the abdominal aorta. No abdominal aortic aneurysm. Celiac trunk and superior mesenteric artery are normal. Lymphatic:No retroperitoneal or mesenteric adenopathy Mesentery, peritoneum: No free intraperitoneal fluid. No mesenteric or retroperitoneal mass. No intra-abdominal abscess. Reproductive:Uterus is not visualized consistent with hysterectomy. No adnexal mass Musculoskeletal:Previous T12 compression fracture with vertebroplasty or kyphoplasty. No acute compression fracture. No interval change. Sacrum and pelvis are negative There are densities in calcification within the subcutaneous fat of the abdominal wall. These are bilateral. Findings are probably secondary to previous injections IMPRESSION: 1. No solid renal mass. 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 This is stable since 02/25/2018 2. Chronic T12 compression fracture with previous vertebral body augmentation 3. Calcification of the abdominal aorta. No abdominal aortic aneurysm. Prominent coronary artery calcifications 4. Previous cholecystectomy. Previous hysterectomy. 5. Gas within the urinary bladder. Correlation for previous instrumentation recommended 6. Subcutaneous soft tissue density and calcifications. This may be secondary to injections 7. No significant interval change since 05/06/2022 The exam was performed using radiation dose optimization techniques including, but not limited to, automated exposure control, adjustment of the mA and/or kV according to patient size and use of iterative reconstruction technique. Interpreted and Authenticated by: Will Peck 08/25/22
[2022-08-25] MEDS: METHOCARBAMOL 500 MG TABLET PO PRN ×2 (10:34→20:42)
[2022-08-25] MEDS: IBUPROFEN 200 MG TABLET PO PRN (10:37)
[2022-08-25] MEDS: HYOSCYAMINE SULFATE 0.125 MG TABLET PO PRN (20:42)
[2022-08-25] MEDS: morphine 4 MG/ML VIAL IV PRN (21:21)
[2022-08-25] MEDS: traZODone HCL 100 MG TABLET PO PRN (23:13)
[2022-08-26] MEDS: HYOSCYAMINE SULFATE 0.125 MG TABLET PO PRN ×2 (03:36→09:36)
[2022-08-26] MEDS: METHOCARBAMOL 500 MG TABLET PO PRN ×2 (03:36→10:09)
[2022-08-26] MEDS: morphine 4 MG/ML VIAL IV PRN ×3 (03:36→18:26)
[2022-08-26] MEDS: 0.9 % SODIUM CHLORIDE 10 ML SYRINGE IV SCH ×5 (03:43→21:56)
[2022-08-26 07:11] LABS: Basophils # (Auto) 0.02 K/mcL (0.00-0.30); Basophils % (Auto) 0.6 % (0.0-2.0); Eosinophils # (Auto) 0.13 K/mcL (0.00-0.70); Eosinophils % (Auto) 3.9 % (0.0-7.0); Hemoglobin 11.9 g/dL (11.2-15.7); Lymphocytes # (Auto) 1.44 K/mcL (1.50-4.80); Lymphocytes % (Auto) 42.9 % (15.5-49.0); Mean Cell Volume 87.5 fL (80.0-100.0); Mean Platelet Volume 10.9 fL (8.8-12.5); Monocytes # (Auto) 0.28 K/mcL (0.10-0.90); Monocytes % (Auto) 8.3 % (1.0-12.0); Platelet Count 115 K/mcL (140-440); Red Cell Distribution Width 14.6 % (11.5-14.5); WBC 3.4 K/mcL (4.5-11.0)
[2022-08-26] MEDS: LEVOTHYROXINE 125 MCG TABLET PO SCH (07:25)
[2022-08-26] MEDS: LIPASE/PROTEASE/AMYLASE 1 CAP CAPSULE PO SCH ×3 (07:26→16:59)
[2022-08-26] MEDS: POTASSIUM CHLORIDE 20 MEQ TABLET PO SCH ×2 (07:26→16:58)
[2022-08-26] MEDS: INSULIN LISPRO 1 UNIT/0.01 ML UNIT SQ SCH ×4 (07:29→21:58)
[2022-08-26 07:41] LABS: Phosphorous 2.5 mg/dL (2.5-4.5)
[2022-08-26 07:53] LABS: ALT/SGPT 31 U/L (<40); AST/SGOT 69 U/L (<32); Albumin 3.2 gm/dL (3.2-5.2); Albumin/Globulin Ratio 1.3 (1.0-2.3); Alkaline Phosphatase 145 U/L (39-117); Bilirubin,Total 0.2 mg/dL (0.1-1.0); Blood Urea Nitrogen 10 mg/dL (8-23); Calcium 8.6 mg/dL (8.6-10.4); Carbon Dioxide 33 mmol/L (22-30); Chloride 104 mmol/L (96-108); Globulin 2.5 gm/dL (2.2-3.7); Glomerular Filtration Rate 93; Glucose 53 mg/dL (70-105)
[2022-08-26] MEDS: DOCUSATE SODIUM 100 MG CAPSULE PO SCH ×3 (08:36→22:02)
[2022-08-26] MEDS: MULTIVIT,THER IRON,CA,FA & MIN 1 TABLET PO SCH (08:36)
[2022-08-26] MEDS: ENOXAPARIN 40 MG/0.4 ML SYRINGE SQ SCH (08:37)
[2022-08-26] MEDS: ACYCLOVIR 400 MG TABLET PO SCH ×2 (08:37→21:57)
[2022-08-26] MEDS: SENNOSIDES 1 TABLET PO SCH (08:37)
[2022-08-26] MEDS: VITAMIN D3 25 MCG TABLET PO SCH (08:37)
[2022-08-26] MEDS: GABAPENTIN 400 MG CAPSULE PO SCH ×3 (08:37→21:57)
[2022-08-26] MEDS: ZINC SULFATE 50 MG CAPSULE PO SCH (08:37)
[2022-08-26] MEDS: DULoxetine 30 MG CAPSULE PO SCH (08:37)
[2022-08-26] MEDS: ATORVASTATIN 40 MG TABLET PO SCH (08:37)
[2022-08-26] MEDS: INSULIN GLARGINE, HUMAN 1 UNIT/0.01 ML SQ SCH ×2 (09:36→21:58)
--- NOTE | 2022-08-26 10:04 | Internal Med Progress Note ---
SUBJECTIVE Subjective Patient information: Note initiated : 08/26/22 at 10:01 am Service Date, if different from initiated Date: [] Patient: Tennille Castillo a 77 y/o F admitted on 08/21/22 for shortness of breath, elevated blood sugar. Chief Complaint: [] Interval history: Ms. Castillo is a 77 year old F history of type 2 diabetes mellitus, chronic back pain from compression fracture of thoracic vertebra, hypothyroidism, essential tremor, dyslipidemia, presenting with a 4-day history of general weakness, loss of appetite, short of breath. She was recently hospitalized in our facility for the treatment of diabetic ketoacidosis and was being discharged home 4 days ago. She claims that since she got back home, she is continue to feel extremely weak, loss of appetite, as well as shortness of breath. She further stated that she did not have her home health physical therapy sections since she was being discharged home. Labs showing leukocytosis with WBCs 16.0. Blood glucose level greater than 700. VBH pH 6.85, bicarb 3.2, anion gap 19. Serum ketone pending. Admission request was called for another round of diabetic ketoacidosis associated with type 2 diabetes mellitus. Pending chest x-ray and urinalysis to rule out infections as trigger of diabetic ketoacidosis. 08/22: Patient's blood pressure dropped to 80s over 40s mmHg earlier this morning. Patient still on insulin drip at 1 unit/hr, and IV fluid D5 1/2NS w/ KCl 20mEq @150cc/hr. Still on Levophed drip, currently at 7 mcg/min. Morning labs pending. Latest blood glucose level 178. Patient is still complaining of severe general weakness. She is coming of shortness of breath. She is complaining of nonproductive cough and respiratory wheezings. She is complaining of shaking chills. She is complaining of sore throat. Blood culture x2 collected. CEPHEID for influenza and CoVID pending. Will also order rapid strep test. Started on Vancomycin and Meropenem (due to penicillin allergy) as empiric broad spectrum antibiotics for clinical sepsis. Continue NPO status with insulin drip, IV fluid infusion, Levophed drip, and the aforementioned antibiotics. Still extremely guarded. Stay in ICU. 08/23: CEPHEID negative for CoVID pneumonia. Rapid strep also negative. Fasting glucose 176 this morning. Levophed drip was being switched off at around 3 AM this morning. Urine output borderline at around 30 cc/h as of this morning. Order cultures no growth today. Patient is feeling better this morning, denies any pain including abdominal pain. She also denies any nausea or vomiting. She denies any insomnia overnight. She has a good appetite and is ready to have her breakfast. Continue vancomycin and Meropenem while monitoring blood culture results. Continuing basal bolus insulin therapy. We will have the Levophed drip standby. We will keep the patient in the ICU for now because patient is still guarded. Physical therapy evaluation and treatments today. 08/24: Fasting glucose 87 this morning. Blood pressure has been okay without Levophed drip. s/p physical therapy evaluation and treatment, and SNF is recommended. Blood cultures no growth to date. She is complaining of mild RUQ abdominal pain, denies nausea vomiting diarrhea or constipation. Good appetite, finished all the food provided. She denies any insomnia overnight. Continue Meropenem while monitoring blood culture results. Abdominal US to rule out any abdominal pathologies. Cut Insulin Lantus from 30 to 25 unit BID and medium scale insulin Lispro SSI AC HS. Transfer to med surg telemetry. Pending SNF placement. 08/25: Patient was up all night, finally went to sleep, currently sleeping. Blood cultures no growth to date. Serum potassium level 3.0. Serum Mg level 1.7. Fasting glucose 114. Abdominal US showing 2.0X1.9X2.1cm possible solid left upper pole renal mass. CT abdomen pelvis w/ contrast to follow up the possible left renal mass. Increase potassium chloride from 20 to 40mEq PO BID for better potassium replacement. Continue Lantus 25 unit BID and medium scale insulin Lispro SSI AC HS. Continue Meropenem while monitoring blood culture results. Stays in med surg telemetry. Pending SNF placement. 08/26: Serum potassium level 3.4. Serum Mg level 1.8. Fasting glucose [address] abdomen pelvis w/ contrast did not see any left renal mass. Patient is c omplaining of nausea and back pain. Continue potassium chloride oral replacement. Continue Lantus 25 unit BID and medium scale insulin Lispro SSI AC HS. d/c Meropenem. Stays in med surg. Pending SNF placement. Constitutional Vitals: Vital Signs Temp Pulse Resp BP Pulse Ox O2 Del Method O2 Flow Rate 36.8 C 88 16 97/54 94 0 08/26/22 08:00 08/26/22 08:00 08/26/22 08:00 08/26/22 08:00 08/26/22 08:00 08/26/22 08:00 08/25/22 04:00 Period Temp Pulse Resp BP Sys/Rosario Pulse Ox O2 Del Method O2 Flow Rate Last 24 Hr 36.2 C-36.9 C 76-88 16-18 97-161/54-82 94-100 Room Air-Room Air Intake and Output 08/25/22 08/26/22 08/26/22 19:59 03:59 11:59 Intake Total 1080 550 240 Output Total 1300 Balance -220 550 240 Weight 69.536 kg Intake & Output: Intake & Output 08/25/22 08/26/22 08/26/22 19:59 03:59 11:59 Intake Total 1080 550 240 Output Total 1300 Balance -220 550 240 Weight 69.536 kg Intake: Oral 1080 550 240 Output: Void Amount 1300 Other: Meal Dinner Breakfast Percent of Meal Consumed 100% 100% Feeding Ability Assist with Tray Set Up Independent Urine Appearance Clear Urine Color Dark Yellow Pale Urine Odor Normal Stool Size Small Moderate Stool Color Brown Black Stool Consistency Dry and Hard Normal for Patient Formed # Voids 1 1 # of times incontinent of 1 Bowels Exam: Sleeping Head Head exam: Present atraumatic and normal inspection Eye Eye exam: Present normal appearance ENT ENT exam: Present mucous membranes moist, normal exam and normal external ear exam Neck Neck exam: Present normal inspection Respiratory Respiratory exam: Present normal respiratory exam Cardiovascular Cardiovascular exam: Present normal rate and rhythm GI/Abdominal GI/Abdominal exam: Present normal bowel sounds Back Exam Back exam: Present normal inspection Neurological Exam Neurological exam: Present alert and oriented X3 Skin Skin exam: Present intact and warm OBJ DATA Labs CBC & Chem 7: 08/26/22 05:16 08/26/22 05:16 Labs: Abnormal Lab Results 08/26/22 08/26/22 08/25/22 05:16 05:16 05:15 WBC 3.4 L Hgb Hct RDW 14.6 H Plt Count 115 L Lymph % (Auto) Lymph # (Auto) 1.44 L Absolute Neutrophils 1.48 L Potassium 3.0 L Chloride Carbon Dioxide 33 H Anion Gap 7.0 L 7.0 L BUN 7 L Creatinine 0.5 L Glucose 53 L 114 H Calcium 8.2 L Phosphorus AST 69 H 93 H Alkaline Phosphatase 145 H 129 H Total Protein 5.7 L 5.1 L Albumin 2.6 L 08/25/22 08/24/22 08/24/22 05:15 05:28 05:28 WBC 3.3 L 3.3 L Hgb 11.1 L Hct 32.6 L 32.7 L RDW 14.8 H 15.0 H Plt Count 110 L 109 L Lymph % (Auto) 49.5 H Lymph # (Auto) Absolute Neutrophils 1.44 L 1.30 L Potassium Chloride 111 H Carbon Dioxide Anion Gap 7.0 L BUN 7 L Creatinine 0.5 L Glucose Calcium 8.3 L Phosphorus 2.4 L AST 70 H Alkaline Phosphatase 128 H Total Protein 4.8 L Albumin 2.6 L Meds: Medications Acetaminophen (Acetaminophen 325 Mg Tablet) 650 mg PO Q4-6HP PRN; Protocol PRN Reason: Per Pain Protocol/Fever > 101 Last Admin: 08/24/22 07:54 Dose: 650 mg Acyclovir (Acyclovir 400 Mg Tablet) 400 mg PO BID [facility]; Protocol Last Admin: 08/26/22 08:37 Dose: 400 mg Albuterol/Ipratropium (Ipratropium/Albuterol 3 Ml Ampul.Neb) 3 ml NEB Q4HRT PRN PRN Reason: Wheezing Lipase/Protease/Amylase (Lipase/Protease/Amylase 1 Cap Capsule) 1 cap PO TIDCC [facility] Last Admin: 08/26/22 07:26 Dose: 1 cap Atorvastatin Calcium (Atorvastatin 40 Mg Tablet) 40 mg PO QDAY [facility] Last Admin: 08/26/22 08:37 Dose: 40 mg Dextrose (Dextrose 50% 50 Ml Vial) 0 ml IV UD PRN PRN Reason: Per Sliding Scale Diagnostic Test (Pha) (Accu-Chek 1 Each Strip) 1 each FS ACHS [facility] Last Admin: 08/26/22 07:29 Dose: 1 each Docusate Sodium (Docusate Sodium 100 Mg Capsule) 100 mg PO BID [facility] Last Admin: 08/26/22 08:36 Dose: 100 mg Duloxetine HCl (Duloxetine 30 Mg Capsule) 30 mg PO QDAY [facility] Last Admin: 08/26/22 08:37 Dose: 30 mg Enoxaparin Sodium (Enoxaparin 40 Mg/0.4 Ml Syringe) 40 mg SQ DAILY [facility] Last Admin: 08/26/22 08:37 Dose: 40 mg Gabapentin (Gabapentin 400 Mg Capsule) 800 mg PO TID [facility] Last Admin: 08/26/22 08:37 Dose: 800 mg Glucose (Dextrose 31 Gm Oral.Susp) 15 gm PO PRN PRN PRN Reason: Hypoglycemia Hyoscyamine (Hyoscyamine Sulfate 0.125 Mg Tablet) 0.125 mg PO Q6HP PRN PRN Reason: Abdominal Discomfort Last Admin: 08/26/22 09:36 Dose: 0.125 mg Ibuprofen (Ibuprofen 200 Mg Tablet) 200 mg PO Q6HP PRN PRN Reason: Pain Last Admin: 08/25/22 10:37 Dose: 200 mg Insulin Glargine (Insulin Glargine, Human 1 Unit/0.01 Ml) 25 unit SQ BID [facility] Last Admin: 08/26/22 09:36 Dose: 25 units Insulin Human Lispro (Insulin Lispro 1 Unit/0.01 Ml Unit) 0 unit SQ ACHS [facility]; Protocol Last Admin: 08/26/22 07:29 Dose: Not Given Iron Carb/Multivit/[place]/Folic Acid (Multivit,Ther Iron,Ca,Fa & Min 1 Tablet) 1 tab PO DAILY [facility] Last Admin: 08/26/22 08:36 Dose: 1 tab Levothyroxine Sodium (Levothyroxine 125 Mcg Tablet) 125 mcg PO QAMAC [facility] Last Admin: 08/26/22 07:25 Dose: 125 mcg Methocarbamol (Methocarbamol 500 Mg Tablet) 500 mg PO TIDP PRN PRN Reason: Muscle Spasm Last Admin: 08/26/22 03:36 Dose: 500 mg Morphine Sulfate (Morphine 4 Mg/Ml Vial) 4 mg IV Q2HP PRN; Protocol PRN Reason: Per Pain Protocol Last Admin: 08/26/22 03:36 Dose: 4 mg Ondansetron HCl (Ondansetron 4 Mg/2 Ml Vial) 4 mg IV Q4-6HP PRN; Protocol PRN Reason: Nausea And Vomiting Phenol (Phenol/Sodium Phenolate 5 [place] Bottle 180ml) 5 spray SSP Q2HP PRN PRN Reason: Sore Throat Last Admin: 08/22/22 20:29 Dose: 5 spray Potassium Chloride (Potassium Chloride 20 Meq Tablet) 40 meq PO BIDCC [facility] Last Admin: 08/26/22 07:26 Dose: 40 meq Promethazine HCl (Promethazine 25 Mg/Ml Vial) 25 mg IV Q4-6HP PRN; Protocol PRN Reason: Nausea And Vomiting Senna (Sennosides 1 Tablet) 1 tab PO DAILY [facility] Last Admin: 08/26/22 08:37 Dose: 1 tab Sodium Chloride (0.9 % Sodium Chloride 10 Ml Syringe) 10 ml IV Q8 [facility] Last Admin: 08/26/22 05:23 Dose: Not Given Trazodone HCl (Trazodone Hcl 100 Mg Tablet) 100 mg PO HSP PRN PRN Reason: insomnia Last Admin: 08/25/22 23:13 Dose: 100 mg Vitamin D (Vitamin D3 25 Mcg Tablet) 50 mcg PO DAILY [facility] Last Admin: 08/26/22 08:37 Dose: 50 mcg Zinc Sulfate (Zinc Sulfate 50 Mg Capsule) 50 mg PO DAILY [facility] Last Admin: 08/26/22 08:37 Dose: 50 mg ABG Interpretation ABG results: 08/21/22 08/21/22 08/21/22 16:15 20:07 21:27 ABG Methemoglobin 0.3 L TNP 0.4 VBG pH 6.85 L* TNP 7.03 L* VBG pCO2 18.7 L* TNP 26.9 L VBG pO2 132.3 H TNP 45.0 H VBG HCO3 3.2 L* TNP 7.0 L* VBG Total CO2 3.7 L* TNP 7.8 L* VBG O2 Saturation 90.4 H TNP 74.8 H VBG Base Excess -30 L TNP -23 L 08/21/22 08/22/22 08/22/22 23:57 07:39 10:44 ABG Methemoglobin 0.3 L 0 L 0.3 L VBG pH 7.14 L* 7.34 7.34 VBG pCO2 32.1 L 27.5 L 25.9 L VBG pO2 45.9 H 129.7 H 140.2 H VBG HCO3 10.8 L* 14.5 L 13.5 L VBG Total CO2 11.7 L 15.3 L 14.3 L VBG O2 Saturation 78.1 H 85.1 H 91.6 H VBG Base Excess -17 L -10 L -11 L A/P Assessment and plan (1) DKA, type 2: Status: Acute (2) Compression fracture of body of thoracic vertebra: Status: Acute (3) Hypothyroidism: Status: Chronic (4) Mixed dyslipidemia: Status: Acute (5) Essential tremor: Status: Chronic (6) Clinical sepsis: Status: Acute (7) Septic shock: Status: Acute (8) Transaminitis: Status: Acute (9) Left renal mass: Status: Acute (10) Hypokalemia: Status: Acute Narrative A/P Narrative: Assessment and Plans: 1. Diabetic ketoacidosis associated with type 2 diabetes mellitus: Inpatient med surg telemetry Neurontin HgA1c 12.0 Insulin Lantus 25 unit BID Accu Check AC HS Insulin Lispro SSI AC HS pegger referral Diabetic diet 2. Chronic back pain secondary to compression fracture of thoracic vertebra: Tylenol Oxycodone Morphine IV Physical therapy evaluation and treatment-->recs. SNF placement 3. Hypothyroidism: Continue thyroid replacement therapy 4. Mixed dyslipidemia: Continue Lipitor 5. Essential tremor: Hold Propranolol due to recent septic shock 6. Hypokalemia: Potassium chloride oral replacement CMP in the morning to trend serum potassium level Also check serum Mg level, and replace if needed 7. Clinical sepsis with septic shock: Blood culture X2, no growth to date Rapid strep test negative CEPHEID for influenza and CoVID negative cbc w/ auto diff in the morning to trend WBC d/c Meropenem Saline lock 8. RUQ abdominal pain with transaminitis: US abdomen to rule out any liver/gallbladder pathologies-->showing possible left renal mass, follow up with CT abdomen pelvis w/ contrast CT abdomen pelvis w/ contrast did not see any left renal mass 9. Possible left renal mass: CT abdomen pelvis w/ contrast to follow up CT abdomen pelvis w/ contrast did not see any left renal mass GI ppx: not currently indicated DVT ppx: Lovenox Code status: DNR Prognosis: Stable Disposition: inpatient med surg; pending SNF placement Time Spent With Patient Time: Total time spent is greater than 50% in coordination of care (as documented) at patient's floor/unit and/or counseling patient: Total time spent with greater than 50% in coordination of care (as documented) at patient's floor/unit and/or counseling patient:: 25 - 35 minutes QUALITY VTE Deep Vein Thrombosis/Pulmonary Embolism Present on Admission: No
[2022-08-26] MEDS: IBUPROFEN 200 MG TABLET PO PRN (13:43)
[2022-08-26] MEDS: LOPERAMIDE 2 MG CAPSULE PO PRN ×2 (16:12→18:04)
[2022-08-26] MEDS: traZODone HCL 100 MG TABLET PO PRN (23:01)
[2022-08-27] MEDS: 0.9 % SODIUM CHLORIDE 10 ML SYRINGE IV SCH ×3 (05:49→20:59)
[2022-08-27] MEDS: morphine 4 MG/ML VIAL IV PRN ×3 (06:07→21:12)
[2022-08-27 07:17] LABS: Basophils # (Auto) 0.01 K/mcL (0.00-0.30); Basophils % (Auto) 0.2 % (0.0-2.0); Eosinophils # (Auto) 0.12 K/mcL (0.00-0.70); Eosinophils % (Auto) 2.8 % (0.0-7.0); Hemoglobin 10.8 g/dL (11.2-15.7); Lymphocytes # (Auto) 1.79 K/mcL (1.50-4.80); Lymphocytes % (Auto) 41.4 % (15.5-49.0); Mean Cell Volume 94.6 fL (80.0-100.0); Mean Corpuscular HGB Conc 32.7 g/dL (31.0-36.0); Mean Platelet Volume 11.1 fL (8.8-12.5); Monocytes # (Auto) 0.42 K/mcL (0.10-0.90); Monocytes % (Auto) 9.7 % (1.0-12.0); Neutrophils % (Auto) 45.7 % (38.0-78.0); Platelet Count 118 K/mcL (140-440); RBC 3.49 M/mcL (3.59-5.38); Red Cell Distribution Width 15.5 % (11.5-14.5); WBC 4.3 K/mcL (4.5-11.0)
[2022-08-27] MEDS: POTASSIUM CHLORIDE 20 MEQ TABLET PO SCH ×2 (07:35→16:46)
[2022-08-27] MEDS: LEVOTHYROXINE 125 MCG TABLET PO SCH (07:35)
[2022-08-27] MEDS: INSULIN LISPRO 1 UNIT/0.01 ML UNIT SQ SCH ×4 (07:36→21:11)
[2022-08-27] MEDS: LIPASE/PROTEASE/AMYLASE 1 CAP CAPSULE PO SCH ×3 (07:36→16:45)
[2022-08-27 07:50] LABS: Phosphorous 2.6 mg/dL (2.5-4.5)
[2022-08-27 07:59] LABS: ALT/SGPT 25 U/L (<40); AST/SGOT 50 U/L (<32); Albumin 2.8 gm/dL (3.2-5.2); Albumin/Globulin Ratio 1.2 (1.0-2.3); Alkaline Phosphatase 108 U/L (39-117); Bilirubin,Total 0.3 mg/dL (0.1-1.0); Blood Urea Nitrogen 14 mg/dL (8-23); Calcium 8.4 mg/dL (8.6-10.4); Carbon Dioxide 26 mmol/L (22-30); Chloride 107 mmol/L (96-108); Globulin 2.3 gm/dL (2.2-3.7); Glomerular Filtration Rate 93; Glucose 61 mg/dL (70-105)
[2022-08-27] MEDS: MULTIVIT,THER IRON,CA,FA & MIN 1 TABLET PO SCH (08:54)
[2022-08-27] MEDS: ATORVASTATIN 40 MG TABLET PO SCH (08:54)
[2022-08-27] MEDS: ENOXAPARIN 40 MG/0.4 ML SYRINGE SQ SCH (08:54)
[2022-08-27] MEDS: ACYCLOVIR 400 MG TABLET PO SCH ×2 (08:54→20:56)
[2022-08-27] MEDS: ZINC SULFATE 50 MG CAPSULE PO SCH (08:54)
[2022-08-27] MEDS: VITAMIN D3 25 MCG TABLET PO SCH (08:54)
[2022-08-27] MEDS: DULoxetine 30 MG CAPSULE PO SCH (08:54)
[2022-08-27] MEDS: HYOSCYAMINE SULFATE 0.125 MG TABLET PO PRN (08:54)
[2022-08-27] MEDS: DOCUSATE SODIUM 100 MG CAPSULE PO SCH ×2 (08:54→20:59)
[2022-08-27] MEDS: GABAPENTIN 400 MG CAPSULE PO SCH ×3 (08:54→20:56)
[2022-08-27] MEDS: SENNOSIDES 1 TABLET PO SCH (08:55)
[2022-08-27] MEDS: INSULIN GLARGINE, HUMAN 1 UNIT/0.01 ML SQ SCH ×2 (08:55→21:12)
[2022-08-27] MEDS ORDERED: DEXTROSE 31 GM ORAL.SUSP PO PRN (10:19)
[2022-08-27] MEDS ORDERED: DEXTROSE 50% 50 ML VIAL IV PRN (10:19)
--- NOTE | 2022-08-27 10:26 | Internal Med Progress Note ---
SUBJECTIVE Subjective Patient information: Note initiated : 08/27/22 at 10:19 am Service Date, if different from initiated Date: [] Patient: Tennille Castillo a 77 y/o F admitted on 08/21/22 for shortness of breath, elevated blood sugar. Chief Complaint: [] Interval history: Ms. Castillo is a 77 year old F history of type 2 diabetes mellitus, chronic back pain from compression fracture of thoracic vertebra, hypothyroidism, essential tremor, dyslipidemia, presenting with a 4-day history of general weakness, loss of appetite, short of breath. She was recently hospitalized in our facility for the treatment of diabetic ketoacidosis and was being discharged home 4 days ago. She claims that since she got back home, she is continue to feel extremely weak, loss of appetite, as well as shortness of breath. She further stated that she did not have her home health physical therapy sections since she was being discharged home. Labs showing leukocytosis with WBCs 16.0. Blood glucose level greater than 700. VBH pH 6.85, bicarb 3.2, anion gap 19. Serum ketone pending. Admission request was called for another round of diabetic ketoacidosis associated with type 2 diabetes mellitus. Pending chest x-ray and urinalysis to rule out infections as trigger of diabetic ketoacidosis. 08/22: Patient's blood pressure dropped to 80s over 40s mmHg earlier this morning. Patient still on insulin drip at 1 unit/hr, and IV fluid D5 1/2NS w/ KCl 20mEq @150cc/hr. Still on Levophed drip, currently at 7 mcg/min. Morning labs pending. Latest blood glucose level 178. Patient is still complaining of severe general weakness. She is coming of shortness of breath. She is complaining of nonproductive cough and respiratory wheezings. She is complaining of shaking chills. She is complaining of sore throat. Blood culture x2 collected. CEPHEID for influenza and CoVID pending. Will also order rapid strep test. Started on Vancomycin and Meropenem (due to penicillin allergy) as empiric broad spectrum antibiotics for clinical sepsis. Continue NPO status with insulin drip, IV fluid infusion, Levophed drip, and the aforementioned antibiotics. Still extremely guarded. Stay in ICU. 08/23: CEPHEID negative for CoVID pneumonia. Rapid strep also negative. Fasting glucose 176 this morning. Levophed drip was being switched off at around 3 AM this morning. Urine output borderline at around 30 cc/h as of this morning. Order cultures no growth today. Patient is feeling better this morning, denies any pain including abdominal pain. She also denies any nausea or vomiting. She denies any insomnia overnight. She has a good appetite and is ready to have her breakfast. Continue vancomycin and Meropenem while monitoring blood culture results. Continuing basal bolus insulin therapy. We will have the Levophed drip standby. We will keep the patient in the ICU for now because patient is still guarded. Physical therapy evaluation and treatments today. 08/24: Fasting glucose 87 this morning. Blood pressure has been okay without Levophed drip. s/p physical therapy evaluation and treatment, and SNF is recommended. Blood cultures no growth to date. She is complaining of mild RUQ abdominal pain, denies nausea vomiting diarrhea or constipation. Good appetite, finished all the food provided. She denies any insomnia overnight. Continue Meropenem while monitoring blood culture results. Abdominal US to rule out any abdominal pathologies. Cut Insulin Lantus from 30 to 25 unit BID and medium scale insulin Lispro SSI AC HS. Transfer to med surg telemetry. Pending SNF placement. 08/25: Patient was up all night, finally went to sleep, currently sleeping. Blood cultures no growth to date. Serum potassium level 3.0. Serum Mg level 1.7. Fasting glucose 114. Abdominal US showing 2.0X1.9X2.1cm possible solid left upper pole renal mass. CT abdomen pelvis w/ contrast to follow up the possible left renal mass. Increase potassium chloride from 20 to 40mEq PO BID for better potassium replacement. Continue Lantus 25 unit BID and medium scale insulin Lispro SSI AC HS. Continue Meropenem while monitoring blood culture results. Stays in med surg telemetry. Pending SNF placement. 08/26: Serum potassium level 3.4. Serum Mg level 1.8. Fasting glucose [address] abdomen pelvis w/ contrast did not see any left renal mass. Patient is c omplaining of nausea and back pain. Continue potassium chloride oral replacement. Continue Lantus 25 unit BID and medium scale insulin Lispro SSI AC HS. d/c Meropenem. Stays in med surg. Pending SNF placement. 08/27: Fasting glucose 49 this morning. Patient was confused and had hand shakes at the same time. Such hypoglycemia was resolved after OJ was given. Otherwise there was no other major overnight events. Decreased Lantus from 25 to 20 unit BID. Switch from medium to low scale insulin Lispro SSI AC HS. Reached clinical stability, pending SNF placement. Constitutional Vitals: Vital Signs Temp Pulse Resp BP Pulse Ox O2 Del Method O2 Flow Rate 36.4 C 68 16 113/62 97 0 08/27/22 06:45 08/27/22 06:45 08/27/22 06:45 08/27/22 06:45 08/27/22 06:45 08/27/22 06:45 08/25/22 04:00 Period Temp Pulse Resp BP Sys/Rosario Pulse Ox O2 Del Method O2 Flow Rate Last 24 Hr 36.4 C-36.8 C 68-84 14-18 113-153/62-93 95-100 Room Air-Room A ir Intake and Output 08/26/22 08/27/22 08/27/22 19:59 03:59 11:59 Intake Total 960 640 Output Total 202 1000 Balance 758 -360 Weight 69.037 kg Intake & Output: Intake & Output 08/26/22 08/27/22 08/27/22 19:59 03:59 11:59 Intake Total 960 640 Output Total 202 1000 Balance 758 -360 Weight 69.037 kg Intake: Oral 960 640 Output: Void Amount 200 1000 Urine/Stool Mix 2 Other: Meal Dinner Breakfast Percent of Meal Consumed 90 100% Feeding Ability Independent Independent Urine Appearance Clear Clear Clear Urine Color Dark Yellow Yellow Dark Yellow Urine Odor Normal Normal Normal Stool Size Small Stool Color Brown Brown Stool Consistency Loose Loose # Voids 3 # Bowel Movements 2 Exam: Sleeping Head Head exam: Present atraumatic and normal inspection Eye Eye exam: Present normal appearance ENT ENT exam: Present mucous membranes moist, normal exam and normal external ear exam Neck Neck exam: Present normal inspection Respiratory Respiratory exam: Present normal respiratory exam Cardiovascular Cardiovascular exam: Present normal rate and rhythm GI/Abdominal GI/Abdominal exam: Present normal bowel sounds Back Exam Back exam: Present normal inspection Neurological Exam Neurological exam: Present alert and oriented X3 Skin Skin exam: Present intact and warm OBJ DATA Labs CBC & Chem 7: 08/27/22 05:28 08/27/22 05:28 Labs: Abnormal Lab Results 08/27/22 08/27/22 08/26/22 05:28 05:28 05:16 WBC 4.3 L RBC 3.49 L Hgb 10.8 L Hct 33.0 L RDW 15.5 H Plt Count 118 L Lymph # (Auto) Absolute Neutrophils Potassium Carbon Dioxide 33 H Anion Gap 7.0 L 7.0 L BUN Creatinine 0.5 L 0.5 L Glucose 61 L 53 L Calcium 8.4 L AST 50 H 69 H Alkaline Phosphatase 145 H Total Protein 5.1 L 5.7 L Albumin 2.8 L 08/26/22 08/25/22 08/25/22 05:16 05:15 05:15 WBC 3.4 L 3.3 L RBC Hgb Hct 32.6 L RDW 14.6 H 14.8 H Plt Count 115 L 110 L Lymph # (Auto) 1.44 L Absolute Neutrophils 1.48 L 1.44 L Potassium 3.0 L Carbon Dioxide Anion Gap 7.0 L BUN 7 L Creatinine Glucose 114 H Calcium 8.2 L AST 93 H Alkaline Phosphatase 129 H Total Protein 5.1 L Albumin 2.6 L Meds: Medications Acetaminophen (Acetaminophen 325 Mg Tablet) 650 mg PO Q4-6HP PRN; Protocol PRN Reason: Per Pain Protocol/Fever > 101 Last Admin: 08/24/22 07:54 Dose: 650 mg Acyclovir (Acyclovir 400 Mg Tablet) 400 mg PO BID [facility]; Protocol Last Admin: 08/27/22 08:54 Dose: 400 mg Albuterol/Ipratropium (Ipratropium/Albuterol 3 Ml Ampul.Neb) 3 ml NEB Q4HRT PRN PRN Reason: Wheezing Lipase/Protease/Amylase (Lipase/Protease/Amylase 1 Cap Capsule) 1 cap PO TIDCC [facility] Last Admin: 08/27/22 07:36 Dose: 1 cap Atorvastatin Calcium (Atorvastatin 40 Mg Tablet) 40 mg PO QDAY [facility] Last Admin: 08/27/22 08:54 Dose: 40 mg Dextrose (Dextrose 50% 50 Ml Vial) 0 ml IV UD PRN PRN Reason: Per Sliding Scale Diagnostic Test (Pha) (Accu-Chek 1 Each Strip) 1 each FS ACHS [facility] Last Admin: 08/27/22 07:36 Dose: 1 each Docusate Sodium (Docusate Sodium 100 Mg Capsule) 100 mg PO BID [facility] Last Admin: 08/27/22 08:54 Dose: Not Given Duloxetine HCl (Duloxetine 30 Mg Capsule) 30 mg PO QDAY [facility] Last Admin: 08/27/22 08:54 Dose: 30 mg Enoxaparin Sodium (Enoxaparin 40 Mg/0.4 Ml Syringe) 40 mg SQ DAILY [facility] Last Admin: 08/27/22 08:54 Dose: 40 mg Gabapentin (Gabapentin 400 Mg Capsule) 800 mg PO TID [facility] Last Admin: 08/27/22 08:54 Dose: 800 mg Glucose (Dextrose 31 Gm Oral.Susp) 15 gm PO PRN PRN PRN Reason: Hypoglycemia Hyoscyamine (Hyoscyamine Sulfate 0.125 Mg Tablet) 0.125 mg PO Q6HP PRN PRN Reason: Abdominal Discomfort Last Admin: 08/27/22 08:54 Dose: 0.125 mg Ibuprofen (Ibuprofen 200 Mg Tablet) 200 mg PO Q6HP PRN PRN Reason: Pain Last Admin: 08/26/22 13:43 Dose: 200 mg Insulin Glargine (Insulin Glargine, Human 1 Unit/0.01 Ml) 20 unit SQ BID [facility] Last Admin: 08/27/22 08:55 Dose: 20 unit Iron Carb/Multivit/[place]/Folic Acid (Multivit,Ther Iron,Ca,Fa & Min 1 Tablet) 1 tab PO DAILY [facility] Last Admin: 08/27/22 08:54 Dose: 1 tab Levothyroxine Sodium (Levothyroxine 125 Mcg Tablet) 125 mcg PO QAMAC [facility] Last Admin: 08/27/22 07:35 Dose: 125 mcg Loperamide HCl (Loperamide 2 Mg Capsule) 2 mg PO PRN PRN PRN Reason: Diarrhea Last Admin: 08/26/22 18:04 Dose: 2 mg Methocarbamol (Methocarbamol 500 Mg Tablet) 500 mg PO TIDP PRN PRN Reason: Muscle Spasm Last Admin: 08/26/22 10:09 Dose: 500 mg Morphine Sulfate (Morphine 4 Mg/Ml Vial) 4 mg IV Q2HP PRN; Protocol PRN Reason: Per Pain Protocol Last Admin: 08/27/22 06:07 Dose: 4 mg Ondansetron HCl (Ondansetron 4 Mg/2 Ml Vial) 4 mg IV Q4-6HP PRN; Protocol PRN Reason: Nausea And Vomiting Last Admin: 08/26/22 10:10 Dose: 4 mg Phenol (Phenol/Sodium Phenolate 5 [place] Bottle 180ml) 5 spray SSP Q2HP PRN PRN Reason: Sore Throat Last Admin: 08/22/22 20:29 Dose: 5 spray Potassium Chloride (Potassium Chloride 20 Meq Tablet) 40 meq PO BIDCC [facility] Last Admin: 08/27/22 07:35 Dose: 40 meq Promethazine HCl (Promethazine 25 Mg/Ml Vial) 25 mg IV Q4-6HP PRN; Protocol PRN Reason: Nausea And Vomiting Senna (Sennosides 1 Tablet) 1 tab PO DAILY [facility] Last Admin: 08/27/22 08:55 Dose: Not Given Sodium Chloride (0.9 % Sodium Chloride 10 Ml Syringe) 10 ml IV Q8 [facility] Last Admin: 08/27/22 05:49 Dose: 10 ml Trazodone HCl (Trazodone Hcl 100 Mg Tablet) 100 mg PO HSP PRN PRN Reason: insomnia Last Admin: 08/26/22 23:01 Dose: 100 mg Vitamin D (Vitamin D3 25 Mcg Tablet) 50 mcg PO DAILY [facility] Last Admin: 08/27/22 08:54 Dose: 50 mcg Zinc Sulfate (Zinc Sulfate 50 Mg Capsule) 50 mg PO DAILY [facility] Last Admin: 08/27/22 08:54 Dose: 50 mg ABG Interpretation ABG results: 08/21/22 08/21/22 08/21/22 16:15 20:07 21:27 ABG Methemoglobin 0.3 L TNP 0.4 VBG pH 6.85 L* TNP 7.03 L* VBG pCO2 18.7 L* TNP 26.9 L VBG pO2 132.3 H TNP 45.0 H VBG HCO3 3.2 L* TNP 7.0 L* VBG Total CO2 3.7 L* TNP 7.8 L* VBG O2 Saturation 90.4 H TNP 74.8 H VBG Base Excess -30 L TNP -23 L 08/21/22 08/22/22 08/22/22 23:57 07:39 10:44 ABG Methemoglobin 0.3 L 0 L 0.3 L VBG pH 7.14 L* 7.34 7.34 VBG pCO2 32.1 L 27.5 L 25.9 L VBG pO2 45.9 H 129.7 H 140.2 H VBG HCO3 10.8 L* 14.5 L 13.5 L VBG Total CO2 11.7 L 15.3 L 14.3 L VBG O2 Saturation 78.1 H 85.1 H 91.6 H VBG Base Excess -17 L -10 L -11 L A/P Assessment and plan (1) DKA, type 2: Status: Acute (2) Compression fracture of body of thoracic vertebra: Status: Acute (3) Hypothyroidism: Status: Chronic (4) Mixed dyslipidemia: Status: Acute (5) Essential tremor: Status: Chronic (6) Clinical sepsis: Status: Acute (7) Septic shock: Status: Acute (8) Transaminitis: Status: Acute (9) Left renal mass: Status: Acute (10) Hypokalemia: Status: Acute Narrative A/P Narrative: Assessment and Plans: 1. Diabetic ketoacidosis associated with type 2 diabetes mellitus: Inpatient med surg telemetry Neurontin HgA1c 12.0 Decrease Insulin Lantus 25-->20 unit BID to avoid hypoglycemia Accu Check AC HS Decrease Insulin Lispro SSI AC HS from medium to low scale to avoid hypoglycemia informatics educator referral Diabetic diet 2. Chronic back pain secondary to compression fracture of thoracic vertebra: Tylenol Oxycodone Morphine IV Physical therapy evaluation and treatment-->recs. SNF placement 3. Hypothyroidism: Continue thyroid replacement therapy 4. Mixed dyslipidemia: Continue Lipitor 5. Essential tremor: Hold Propranolol due to recent septic shock 6. Hypokalemia: Potassium chloride oral replacement CMP in the morning to trend serum potassium level Also check serum Mg level, and replace if needed 7. Clinical sepsis with septic shock: RESOLVED Blood culture X2, no growth to date Rapid strep test negative CEPHEID for influenza and CoVID negative cbc w/ auto diff in the morning to trend WBC d/c Meropenem Saline lock 8. RUQ abdominal pain with transaminitis: US abdomen to rule out any liver/gallbladder pathologies-->showing possible left renal mass, follow up with CT abdomen pelvis w/ contrast CT abdomen pelvis w/ contrast did not see any left renal mass 9. Possible left renal mass: CT abdomen pelvis w/ contrast to follow up CT abdomen pelvis w/ contrast did not see any left renal mass GI ppx: not currently indicated DVT ppx: Lovenox Code status: DNR Prognosis: Stable Disposition: inpatient med surg; pending SNF placement Time Spent With Patient Time: Total time spent is greater than 50% in coordination of care (as documented) at patient's floor/unit and/or counseling patient: Total time spent with greater than 50% in coordination of care (as documented) at patient's floor/unit and/or counseling patient:: 25 - 35 minutes QUALITY VTE Deep Vein Thrombosis/Pulmonary Embolism Present on Admission: No
[2022-08-27] MEDS: CALCIUM CARBONATE 500 MG TAB.CHEW CHEWED PRN ×2 (10:39→19:06)
[2022-08-27] MEDS: METHOCARBAMOL 500 MG TABLET PO PRN (11:42)
--- NOTE | 2022-08-27 14:07 | Internal Med Progress Note ---
SUBJECTIVE Subjective Patient information: Note initiated : 08/27/22 at 2:00 pm Service Date, if different from initiated Date: [] Patient: Tennille Castillo a 77 y/o F admitted on 08/21/22 for shortness of breath, elevated blood sugar. Chief Complaint: [] Interval history: Ms. Castillo is a 77 year old F history of type 2 diabetes mellitus, chronic back pain from compression fracture of thoracic vertebra, hypothyroidism, essential tremor, dyslipidemia, presenting with a 4-day history of general weakness, loss of appetite, short of breath. She was recently hospitalized in our facility for the treatment of diabetic ketoacidosis and was being discharged home 4 days ago. She claims that since she got back home, she is continue to feel extremely weak, loss of appetite, as well as shortness of breath. She further stated that she did not have her home health physical therapy sections since she was being discharged home. Labs showing leukocytosis with WBCs 16.0. Blood glucose level greater than 700. VBH pH 6.85, bicarb 3.2, anion gap 19. Serum ketone pending. Admission request was called for another round of diabetic ketoacidosis associated with type 2 diabetes mellitus. Pending chest x-ray and urinalysis to rule out infections as trigger of diabetic ketoacidosis. 08/22: Patient's blood pressure dropped to 80s over 40s mmHg earlier this morning. Patient still on insulin drip at 1 unit/hr, and IV fluid D5 1/2NS w/ KCl 20mEq @150cc/hr. Still on Levophed drip, currently at 7 mcg/min. Morning labs pending. Latest blood glucose level 178. Patient is still complaining of severe general weakness. She is coming of shortness of breath. She is complaining of nonproductive cough and respiratory wheezings. She is complaining of shaking chills. She is complaining of sore throat. Blood culture x2 collected. CEPHEID for influenza and CoVID pending. Will also order rapid strep test. Started on Vancomycin and Meropenem (due to penicillin allergy) as empiric broad spectrum antibiotics for clinical sepsis. Continue NPO status with insulin drip, IV fluid infusion, Levophed drip, and the aforementioned antibiotics. Still extremely guarded. Stay in ICU. 08/23: CEPHEID negative for CoVID pneumonia. Rapid strep also negative. Fasting glucose 176 this morning. Levophed drip was being switched off at around 3 AM this morning. Urine output borderline at around 30 cc/h as of this morning. Order cultures no growth today. Patient is feeling better this morning, denies any pain including abdominal pain. She also denies any nausea or vomiting. She denies any insomnia overnight. She has a good appetite and is ready to have her breakfast. Continue vancomycin and Meropenem while monitoring blood culture results. Continuing basal bolus insulin therapy. We will have the Levophed drip standby. We will keep the patient in the ICU for now because patient is still guarded. Physical therapy evaluation and treatments today. 08/24: Fasting glucose 87 this morning. Blood pressure has been okay without Levophed drip. s/p physical therapy evaluation and treatment, and SNF is recommended. Blood cultures no growth to date. She is complaining of mild RUQ abdominal pain, denies nausea vomiting diarrhea or constipation. Good appetite, finished all the food provided. She denies any insomnia overnight. Continue Meropenem while monitoring blood culture results. Abdominal US to rule out any abdominal pathologies. Cut Insulin Lantus from 30 to 25 unit BID and medium scale insulin Lispro SSI AC HS. Transfer to med surg telemetry. Pending SNF placement. 08/25: Patient was up all night, finally went to sleep, currently sleeping. Blood cultures no growth to date. Serum potassium level 3.0. Serum Mg level 1.7. Fasting glucose 114. Abdominal US showing 2.0X1.9X2.1cm possible solid left upper pole renal mass. CT abdomen pelvis w/ contrast to follow up the possible left renal mass. Increase potassium chloride from 20 to 40mEq PO BID for better potassium replacement. Continue Lantus 25 unit BID and medium scale insulin Lispro SSI AC HS. Continue Meropenem while monitoring blood culture results. Stays in med surg telemetry. Pending SNF placement. 08/26: Serum potassium level 3.4. Serum Mg level 1.8. Fasting glucose [address] abdomen pelvis w/ contrast did not see any left renal mass. Patient is co mplaining of nausea and back pain. Continue potassium chloride oral replacement. Continue Lantus 25 unit BID and medium scale insulin Lispro SSI AC HS. d/c Meropenem. Stays in med surg. Pending SNF placement. 08/27: Fasting glucose 49 this morning. Patient was confused and had hand shakes at the same time. Such hypoglycemia was resolved after OJ was given. Otherwise there was no other major overnight events. Decreased Lantus from 25 to 20 unit BID. Switch from medium to low scale insulin Lispro SSI AC HS. Reached clinical stability, pending SNF placement. Constitutional Vitals: Vital Signs Temp Pulse Resp BP Pulse Ox O2 Del Method O2 Flow Rate 97.7 F 71 14 134/71 96 0 08/27/22 10:57 08/27/22 10:57 08/27/22 10:57 08/27/22 10:57 08/27/22 10:57 08/27/22 10:57 08/25/22 04:00 Period Temp Pulse Resp BP Sys/Rosario Pulse Ox O2 Del Method O2 Flow Rate Last 24 Hr 97.5 F-98.2 F 68-84 14-18 113-153/62-93 95-100 Room Air-Room Air Intake and Output 08/27/22 08/27/22 08/27/22 03:59 11:59 19:59 Intake Total 640 480 Output Total 1500 500 Balance -860 -20 Weight 69.037 kg Intake & Output: Intake & Output 08/27/22 08/27/22 08/27/22 03:59 11:59 19:59 Intake Total 640 480 Output Total 1500 500 Balance -860 -20 Weight 69.037 kg Intake: Oral 640 480 Output: Void Amount 1500 500 Other: Meal Breakfast Lunch Percent of Meal Consumed 100% 100% Feeding Ability Independent Independent Urine Appearance Clear Clear Urine Color Yellow Dark Yellow Urine Odor Normal Normal Stool Size Small Stool Color Brown Stool Consistency Loose Exam: General: Alert, awake, No acute Distress Eyes/N/T: EOMI, Head/Neck: neck supple, CV: RRR, No murmurs, Pulm: Clear b/l, no wheezing/rhonchi/rales Abd: soft, nontender, +BS x4 Ext: no clubbing/cyanosis/edema Neuro: Alert, no focal deficits, moves all extremities, Skin: warm/dry OBJ DATA Labs CBC & Chem 7: 08/27/22 05:28 08/27/22 05:28 Labs: Abnormal Lab Results 08/27/22 08/27/22 08/26/22 05:28 05:28 05:16 WBC 4.3 L RBC 3.49 L Hgb 10.8 L Hct 33.0 L RDW 15.5 H Plt Count 118 L Lymph # (Auto) Absolute Neutrophils Potassium Carbon Dioxide 33 H Anion Gap 7.0 L 7.0 L BUN Creatinine 0.5 L 0.5 L Glucose 61 L 53 L Calcium 8.4 L AST 50 H 69 H Alkaline Phosphatase 145 H Total Protein 5.1 L 5.7 L Albumin 2.8 L 08/26/22 08/25/22 08/25/22 05:16 05:15 05:15 WBC 3.4 L 3.3 L RBC Hgb Hct 32.6 L RDW 14.6 H 14.8 H Plt Count 115 L 110 L Lymph # (Auto) 1.44 L Absolute Neutrophils 1.48 L 1.44 L Potassium 3.0 L Carbon Dioxide Anion Gap 7.0 L BUN 7 L Creatinine Glucose 114 H Calcium 8.2 L AST 93 H Alkaline Phosphatase 129 H Total Protein 5.1 L Albumin 2.6 L Meds: Medications Acetaminophen (Acetaminophen 325 Mg Tablet) 650 mg PO Q4-6HP PRN; Protocol PRN Reason: Per Pain Protocol/Fever > 101 Last Admin: 08/24/22 07:54 Dose: 650 mg Acyclovir (Acyclovir 400 Mg Tablet) 400 mg PO BID PEG; Protocol Last Admin: 08/27/22 08:54 Dose: 400 mg Albuterol/Ipratropium (Ipratropium/Albuterol 3 Ml Ampul.Neb) 3 ml NEB Q4HRT PRN PRN Reason: Wheezing Lipase/Protease/Amylase (Lipase/Protease/Amylase 1 Cap Capsule) 1 cap PO TIDCC [facility] Last Admin: 08/27/22 11:41 Dose: 1 cap Atorvastatin Calcium (Atorvastatin 40 Mg Tablet) 40 mg PO QDAY PEG Last Admin: 08/27/22 08:54 Dose: 40 mg Calcium Carbonate/Glycine (Calcium Carbonate 500 Mg Tab.Chew) 500 mg CHEWED Q4HP PRN PRN Reason: Dyspepsia Last Admin: 08/27/22 10:39 Dose: 500 mg Dextrose (Dextrose 50% 50 Ml Vial) 0 ml IV UD PRN PRN Reason: Per Sliding Scale Diagnostic Test (Pha) (Accu-Chek 1 Each Strip) 1 each FS ACHS [facility] Last Admin: 08/27/22 12:15 Dose: 1 each Docusate Sodium (Docusate Sodium 100 Mg Capsule) 100 mg PO BID [facility] Last Admin: 08/27/22 08:54 Dose: Not Given Duloxetine HCl (Duloxetine 30 Mg Capsule) 30 mg PO QDAY [facility] Last Admin: 08/27/22 08:54 Dose: 30 mg Enoxaparin Sodium (Enoxaparin 40 Mg/0.4 Ml Syringe) 40 mg SQ DAILY [facility] Last Admin: 08/27/22 08:54 Dose: 40 mg Gabapentin (Gabapentin 400 Mg Capsule) 800 mg PO TID [facility] Last Admin: 08/27/22 08:54 Dose: 800 mg Glucose (Dextrose 31 Gm Oral.Susp) 15 gm PO PRN PRN PRN Reason: Hypoglycemia Hyoscyamine (Hyoscyamine Sulfate 0.125 Mg Tablet) 0.125 mg PO Q6HP PRN PRN Reason: Abdominal Discomfort Last Admin: 08/27/22 08:54 Dose: 0.125 mg Ibuprofen (Ibuprofen 200 Mg Tablet) 200 mg PO Q6HP PRN PRN Reason: Pain Last Admin: 08/26/22 13:43 Dose: 200 mg Insulin Glargine (Insulin Glargine, Human 1 Unit/0.01 Ml) 20 unit SQ BID [facility] Last Admin: 08/27/22 08:55 Dose: 20 unit Insulin Human Lispro (Insulin Lispro 1 Unit/0.01 Ml Unit) 0 unit SQ ACHS [facility]; Protocol Last Admin: 08/27/22 11:41 Dose: 1 unit Iron Carb/Multivit/[place]/Folic Acid (Multivit,Ther Iron,Ca,Fa & Min 1 Tablet) 1 tab PO DAILY [facility] Last Admin: 08/27/22 08:54 Dose: 1 tab Levothyroxine Sodium (Levothyroxine 125 Mcg Tablet) 125 mcg PO QAMAC [facility] Last Admin: 08/27/22 07:35 Dose: 125 mcg Loperamide HCl (Loperamide 2 Mg Capsule) 2 mg PO PRN PRN PRN Reason: Diarrhea Last Admin: 08/26/22 18:04 Dose: 2 mg Methocarbamol (Methocarbamol 500 Mg Tablet) 500 mg PO TIDP PRN PRN Reason: Muscle Spasm Last Admin: 08/27/22 11:42 Dose: 500 mg Morphine Sulfate (Morphine 4 Mg/Ml Vial) 4 mg IV Q2HP PRN; Protocol PRN Reason: Per Pain Protocol Last Admin: 08/27/22 06:07 Dose: 4 mg Ondansetron HCl (Ondansetron 4 Mg/2 Ml Vial) 4 mg IV Q4-6HP PRN; Protocol PRN Reason: Nausea And Vomiting Last Admin: 08/26/22 10:10 Dose: 4 mg Phenol (Phenol/Sodium Phenolate 5 [place] Bottle 180ml) 5 spray SSP Q2HP PRN PRN Reason: Sore Throat Last Admin: 08/22/22 20:29 Dose: 5 spray Potassium Chloride (Potassium Chloride 20 Meq Tablet) 40 meq PO BIDCC [facility] Last Admin: 08/27/22 07:35 Dose: 40 meq Promethazine HCl (Promethazine 25 Mg/Ml Vial) 25 mg IV Q4-6HP PRN; Protocol PRN Reason: Nausea And Vomiting Senna (Sennosides 1 Tablet) 1 tab PO DAILY [facility] Last Admin: 08/27/22 08:55 Dose: Not Given Sodium Chloride (0.9 % Sodium Chloride 10 Ml Syringe) 10 ml IV Q8 [facility] Last Admin: 08/27/22 05:49 Dose: 10 ml Trazodone HCl (Trazodone Hcl 100 Mg Tablet) 100 mg PO HSP PRN PRN Reason: insomnia Last Admin: 08/26/22 23:01 Dose: 100 mg Vitamin D (Vitamin D3 25 Mcg Tablet) 50 mcg PO DAILY [facility] Last Admin: 08/27/22 08:54 Dose: 50 mcg Zinc Sulfate (Zinc Sulfate 50 Mg Capsule) 50 mg PO DAILY [facility] Last Admin: 08/27/22 08:54 Dose: 50 mg ABG Interpretation ABG results: 08/21/22 08/21/22 08/21/22 16:15 20:07 21:27 ABG Methemoglobin 0.3 L TNP 0.4 VBG pH 6.85 L* TNP 7.03 L* VBG pCO2 18.7 L* TNP 26.9 L VBG pO2 132.3 H TNP 45.0 H VBG HCO3 3.2 L* TNP 7.0 L* VBG Total CO2 3.7 L* TNP 7.8 L* VBG O2 Saturation 90.4 H TNP 74.8 H VBG Base Excess -30 L TNP -23 L 08/21/22 08/22/22 08/22/22 23:57 07:39 10:44 ABG Methemoglobin 0.3 L 0 L 0.3 L VBG pH 7.14 L* 7.34 7.34 VBG pCO2 32.1 L 27.5 L 25.9 L VBG pO2 45.9 H 129.7 H 140.2 H VBG HCO3 10.8 L* 14.5 L 13.5 L VBG Total CO2 11.7 L 15.3 L 14.3 L VBG O2 Saturation 78.1 H 85.1 H 91.6 H VBG Base Excess -17 L -10 L -11 L A/P Narrative A/P Narrative: Assessment and Plans: *Diabetic ketoacidosis associated with type 2 diabetes mellitus w/neuropathya: -HgA1c 12.0 -Decrease Lantus 25-->20 unit BID to avoid hypoglycemia , SSI -hospice educator referral -gabapentin *Hypokalemia: -Potassium chloride oral replacement, CMP in the morning to trend serum potassium level -Monitor and replace other electrolytes as needed *Clinical sepsis with septic shock: RESOLVED -Blood culture X2, no growth to date -CEPHEID for influenza and CoVID negative -d/c Meropenem *RUQ abdominal pain with transaminitis: -US abdomen showing possible left renal mass, follow up CT abd/pelv did not see any left renal mass * Chronic back pain: 2/2 compression fracture of thoracic vertebra: -Tylenol , Oxycodone , Morphine IV *Hypothyroidism: Continue thyroid replacement therapy *Essential tremor: Hold Propranolol due to recent septic shock *Chronic pancreatitis: *Generalized weakness/deconditioning: Physical therapy evaluation and treatment-->recs. SNF placement *ppx: Lovenox Code status: DNR Time Spent With Patient Time: Total time spent is greater than 50% in coordination of care (as documented) at patient's floor/unit and/or counseling patient: QUALITY VTE Deep Vein Thrombosis/Pulmonary Embolism Present on Admission: No
--- NOTE | 2022-08-27 14:09 | Discharge Summary ---
Discharge Provider Provider IMPORTANT FOLLOW-UP INFORMATION FOR PCP: Patient information: Note initiated : 08/27/22 at 2:08 pm Service Date, if different from initiated Date: [] Patient: Tennille Castillo 77 y/o F admitted on 08/21/22 for shortness of breath, elevated blood sugar. Chief Complaint: [] Date of admission: 08/21/22 17:23 Discharge date: 08/29/22 Primary care physician: OSKAR Carvajal Consults: 08/21/22 16:37 Consult to Physician [CONS] Stat Comment: Consulting Provider: Devon Mcdaniel Reason For Exam: Physician to Consult 08/27/22 11:48 Consult to Physician [CONS] Routine Comment: snf referral Consulting Provider: [facility] Gaby Reason For Exam: Physician to Consult COURSE Hospital Course Hospital course: Interval history: Ms. Castillo is a 77 year old F history of type 2 diabetes mellitus, chronic back pain from compression fracture of thoracic vertebra, hypothyroidism, essential tremor, dyslipidemia, presenting with a 4-day history of general weakness, loss of appetite, short of breath. She was recently hospitalized in our facility for the treatment of diabetic ketoacidosis and was being discharged home 4 days ago. She claims that since she got back home, she is continue to feel extremely weak, loss of appetite, as well as shortness of breath. She further stated that she did not have her home health physical therapy sections since she was being discharged home. Labs showing leukocytosis with WBCs 16.0. Blood glucose level greater than 700. VBH pH 6.85, bicarb 3.2, anion gap 19. Serum ketone pending. Admission request was called for another round of diabetic ketoacidosis associated with type 2 diabetes mellitus. Pending chest x-ray and urinalysis to rule out infections as trigger of diabetic ketoacidosis. 08/22: Patient's blood pressure dropped to 80s over 40s mmHg earlier this morning. Patient still on insulin drip at 1 unit/hr, and IV fluid D5 1/2NS w/ KCl 20mEq @150cc/hr. Still on Levophed drip, currently at 7 mcg/min. Morning labs pending. Latest blood glucose level 178. Patient is still complaining of severe general weakness. She is coming of shortness of breath. She is complaining of nonpr oductive cough and respiratory wheezings. She is complaining of shaking chills. She is complaining of sore throat. Blood culture x2 collected. CEPHEID for influenza and CoVID pending. Will also order rapid strep test. Started on Vancomycin and Meropenem (due to penicillin allergy) as empiric broad spectrum antibiotics for clinical sepsis. Continue NPO status with insulin drip, IV fluid infusion, Levophed drip, and the aforementioned antibiotics. Still extremely guarded. Stay in ICU. 08/23: CEPHEID negative for CoVID pneumonia. Rapid strep also negative. Fasting glucose 176 this morning. Levophed drip was being switched off at around 3 AM this morning. Urine output borderline at around 30 cc/h as of this morning. Order cultures no growth today. Patient is feeling better this morning, denies any pain including abdominal pain. She also denies any nausea or vomiting. She denies any insomnia overnight. She has a good appetite and is ready to have her breakfast. Continue vancomycin and Meropenem while monitoring blood culture results. Continuing basal bolus insulin therapy. We will have the Levophed drip standby. We will keep the patient in the ICU for now because patient is still guarded. Physical therapy evaluation and treatments today. 08/24: Fasting glucose 87 this morning. Blood pressure has been okay without Levophed drip. s/p physical therapy evaluation and treatment, and SNF is recommended. Blood cultures no growth to date. She is complaining of mild RUQ abdominal pain, denies nausea vomiting diarrhea or constipation. Good appetite, finished all the food provided. She denies any insomnia overnight. Continue Meropenem while monitoring blood culture results. Abdominal US to rule out any abdominal pathologies. Cut Insulin Lantus from 30 to 25 unit BID and medium scale insulin Lispro SSI AC HS. Transfer to med surg telemetry. Pending SNF placement. 08/25: Patient was up all night, finally went to sleep, currently sleeping. Blood cultures no growth to date. Serum potassium level 3.0. Serum Mg level 1.7. Fasting glucose 114. Abdominal US showing 2.0X1.9X2.1cm possible solid left upper pole renal mass. CT abdomen pelvis w/ contrast to follow up the possible left renal mass. Increase potassium chloride from 20 to 40mEq PO BID for better potassium replacement. Continue Lantus 25 unit BID and medium scale insulin Lispro SSI AC HS. Continue Meropenem while monitoring blood culture results. Stays in med surg telemetry. Pending SNF placement. 08/26: Serum potassium level 3.4. Serum Mg level 1.8. Fasting glucose [address] abdomen pelvis w/ contrast did not see any left renal mass. Patient is complaining of nausea and back pain. Continue potassium chloride oral replacement. Continue Lantus 25 unit BID and medium scale insulin Lispro SSI AC HS. d/c Meropenem. Stays in med surg. Pending SNF placement. 08/27: Fasting glucose 49 this morning. Patient was confused and had hand shakes at the same time. Such hypoglycemia was resolved after OJ was given. Otherwise there was no other major overnight events. Decreased Lantus from 25 to 20 unit BID. Switch from medium to low scale insulin Lispro SSI AC HS. Reached clinical stability, pending SNF placement. 08/28 No overnight events or new complaints. Patient seems to be tolerating the change in her Lantus. 08/29 Seems to be feeling well. No overnight event or new complaints. Stable blood glucose. Assessment and Plans: *Diabetic ketoacidosis associated with type 2 diabetes mellitus w/neuropathya: -HgA1c 12.0 -Decrease Lantus 25-->20 unit BID *Hypokalemia: *Chronic back pain: 2/2 compression fracture of thoracic vertebra: *Hypothyroidism: *Essential tremor: *Chronic pancreatitis: *Generalized weakness/deconditioning:-Physical therapy evaluation and treatment-->recs. SNF placement Discharge diagnosis: DKA chronic pain sepsis Secondary discharge diagnosis: Hypothyroidism tremor chronic pancreatitis essential tremor chronic back pain Time Spent with Patient Time attestation: Total time spent providing and/or coordinating discharge services: Time spent: Greater than 30 minutes EXAM Constitutional Vitals: Temp Pulse Resp BP Pulse Ox O2 Del Method O2 Flow Rate 97.7 F 71 14 134/71 96 0 08/27/22 10:57 08/27/22 10:57 08/27/22 10:57 08/27/22 10:57 08/27/22 10:57 08/27/22 10:57 08/25/22 04:00 Discharge Data Data Completed and Pending Labs on day of discharge: Labs from last 24 hours 08/27/22 08/27/22 05:28 05:28 WBC 4.3 L RBC 3.49 L Hgb 10.8 L Hct 33.0 L MCV 94.6 MCH 30.9 MCHC 32.7 RDW 15.5 H Plt Count 118 L MPV 11.1 Immature Gran % (Auto) 0.2 Neut % (Auto) 45.7 Lymph % (Auto) 41.4 [place] % (Auto) 9.7 Eos % (Auto) 2.8 Baso % (Auto) 0.2 Lymph # (Auto) 1.79 [place] # (Auto) 0.42 Eos # (Auto) 0.12 Baso # (Auto) 0.01 Immature Gran # 0.01 Absolute Neutrophils 1.97 Sodium 140 Potassium 4.2 Chloride 107 Carbon Dioxide 26 Anion Gap 7.0 L BUN 14 Creatinine 0.5 L GFR Calculation 93 Glucose 61 L Calcium 8.4 L Phosphorus 2.6 Magnesium 1.8 Total Bilirubin 0.3 AST 50 H ALT 25 Alkaline Phosphatase 108 Total Protein 5.1 L Albumin 2.8 L Globulin 2.3 Albumin/Globulin Ratio 1.2 Discharge Plan Patient/Caregiver Discharge Instructions Activity: increase activity as tolerated Diet: Consistent Carbohydrate Prescriptions: Continued multivit [id number] [Hair, Skin and Nails Advanced] 1 tab PO DAILY trazodone 100 mg tablet 100 mg PO HSP PRN (Reason: insomnia) Zenpep 40,000-126,000- 168,000 unit capsule,delayed release(DR/EC) 40,000 cap PO TID Label Comments: take 1 capsule by mouth three times a day took one does this am acyclovir 400 mg tablet 1 tab PO BID gabapentin 800 mg tablet 1 tab PO TID Label Comments: morning and noon dose zinc 50 mg Tablet 50 mg PO DAILY cholecalciferol (vitamin D3) [Vitamin D3] 50 mcg (2,000 unit) Capsule 50 mcg PO DAILY hyoscyamine sulfate 0.125 mg tablet, sublingual 0.125 mg PO Q6H PRN (Reason: Abdominal Discomfort) Qty: 20 0RF Rx Instructions: PRN for rectal spasms propranolol 10 mg tablet 1 tab PO TID Label Comments: Took 1 dose this am insulin aspart U-100 [Novolog Flexpen U-100 Insulin] 100 unit/mL (3 mL) insulin pen See Protocol subcut ACHS Protocol: Insulin Sliding Scale, High Condition: HUMALOG/NOVALOG SC SLIDING Dose/Route: SCALE Condition: FSBS < 70 Dose/Route: Give 4 Oz juice, or 15gm oral Instruction: Glucose, or 25ml D50W IV if Dose/Route: unable to take PO. Recheck in Instruction: 15 min and repeat if FSBS < 70 Condition: FSBS 71-140 Dose/Route: NO COVERAGE Condition: FSBS 141-170 Dose/Route: 3 UNITS Condition: FSBS 171-200 Dose/Route: 6 UNITS Condition: FSBS 201-250 Dose/Route: 9 UNITS Condition: FSBS 251-300 Dose/Route: 12 UNITS Condition: FSBS 301-350 Dose/Route: 15 UNITS Condition: FSBS 351-400 Dose/Route: 18 UNITS Condition: FSBS > 400 Dose/Route: 20 UNITS; REPEAT Q2H X2 Instruction: CONTINUE FOLLOWING SLIDING Condition: SCALE; IF STILL > 400; CALL Dose/Route: PHYSICIAN atorvastatin 40 mg tablet 1 tab PO QDAY duloxetine 30 mg capsule,delayed release(DR/EC) 1 cap PO QDAY methocarbamol 500 mg Tablet 500 mg PO TIDP PRN (Reason: Muscle Spasm) Qty: 30 0RF ibuprofen 200 mg Tablet 200 mg PO Q6H PRN (Reason: Pain) Label Comments: Takes a few times a day as needed otc Took unknown amount thiis am; takes for generalized pain/lower back pain levothyroxine 125 mcg tablet 1 tab PO QAM (DME) True Metrix Glucose Test Strip Strip 1 strip MISCELLANEOUS QID Changed insulin degludec [Tresiba U-100 Insulin] 100 unit/mL solution 20 unit subcut BID Qty: 10 0RF Follow Up Plan Follow up with: Jacque Severino FNP [Primary Care Provider] - Patient Disposition: Xfer SNF Prognosis: Fair Rehab Potential: Fair I certify that the patient requires SNF services: Yes Overall status at discharge: patient is progressing back to baseline Discharge Orders: Discharge Order (Routine); Ordered 08/29/22 Ordered By: Jef Jackson [facility] VTE Deep Vein Thrombosis/Pulmonary Embolism Present on Admission: No
[2022-08-28] MEDS: traZODone HCL 100 MG TABLET PO PRN ×2 (00:31→23:15)
[2022-08-28] MEDS: 0.9 % SODIUM CHLORIDE 10 ML SYRINGE IV SCH ×3 (05:45→21:34)
[2022-08-28] MEDS: INSULIN LISPRO 1 UNIT/0.01 ML UNIT SQ SCH ×4 (07:14→21:39)
[2022-08-28 07:45] LABS: Basophils # (Auto) 0.02 K/mcL (0.00-0.30); Basophils % (Auto) 0.3 % (0.0-2.0); Eosinophils # (Auto) 0.12 K/mcL (0.00-0.70); Eosinophils % (Auto) 2.1 % (0.0-7.0); Hematocrit 34.5 % (34.1-44.9); Hemoglobin 11.2 g/dL (11.2-15.7); Lymphocytes # (Auto) 2.01 K/mcL (1.50-4.80); Lymphocytes % (Auto) 34.7 % (15.5-49.0); Mean Corpuscular HGB Conc 32.5 g/dL (31.0-36.0); Monocytes # (Auto) 0.59 K/mcL (0.10-0.90); Monocytes % (Auto) 10.2 % (1.0-12.0); Neutrophils % (Auto) 52.4 % (38.0-78.0); Platelet Count 132 K/mcL (140-440); RBC 3.71 M/mcL (3.59-5.38); Red Cell Distribution Width 14.8 % (11.5-14.5); WBC 5.8 K/mcL (4.5-11.0)
[2022-08-28 07:55] LABS: ALT/SGPT 22 U/L (<40); AST/SGOT 36 U/L (<32); Albumin 2.9 gm/dL (3.2-5.2); Albumin/Globulin Ratio 1.2 (1.0-2.3); Alkaline Phosphatase 112 U/L (39-117); Bilirubin,Direct < 0.2 mg/dL (0-0.3); Bilirubin,Total 0.2 mg/dL (0.1-1.0); Blood Urea Nitrogen 11 mg/dL (8-23); Calcium 9.5 mg/dL (8.6-10.4); Carbon Dioxide 31 mmol/L (22-30); Chloride 103 mmol/L (96-108); Globulin 2.4 gm/dL (2.2-3.7); Glomerular Filtration Rate 88; Glucose 101 mg/dL (70-105); Lactate Dehydrogenase 238 U/L (135-225); Phosphorous 2.5 mg/dL (2.5-4.5); Triglycerides 235 mg/dL (<150); Uric Acid 3.6 mg/dL (2.5-8.0)
[2022-08-28] MEDS: MULTIVIT,THER IRON,CA,FA & MIN 1 TABLET PO SCH (08:09)
[2022-08-28] MEDS: GABAPENTIN 400 MG CAPSULE PO SCH ×3 (08:09→21:31)
[2022-08-28] MEDS: ATORVASTATIN 40 MG TABLET PO SCH (08:10)
[2022-08-28] MEDS: DOCUSATE SODIUM 100 MG CAPSULE PO SCH ×2 (08:10→21:32)
[2022-08-28] MEDS: DULoxetine 30 MG CAPSULE PO SCH (08:10)
[2022-08-28] MEDS: POTASSIUM CHLORIDE 20 MEQ TABLET PO SCH ×2 (08:11→16:22)
[2022-08-28] MEDS: ZINC SULFATE 50 MG CAPSULE PO SCH (08:11)
[2022-08-28] MEDS: LEVOTHYROXINE 125 MCG TABLET PO SCH (08:11)
[2022-08-28] MEDS: ACYCLOVIR 400 MG TABLET PO SCH ×2 (08:11→21:31)
[2022-08-28] MEDS: VITAMIN D3 25 MCG TABLET PO SCH (08:12)
[2022-08-28] MEDS: LIPASE/PROTEASE/AMYLASE 1 CAP CAPSULE PO SCH ×3 (08:12→16:22)
[2022-08-28] MEDS: INSULIN GLARGINE, HUMAN 1 UNIT/0.01 ML SQ SCH ×2 (08:13→21:40)
[2022-08-28] MEDS: ENOXAPARIN 40 MG/0.4 ML SYRINGE SQ SCH (08:13)
[2022-08-28] MEDS: SENNOSIDES 1 TABLET PO SCH (08:14)
[2022-08-28] MEDS: IBUPROFEN 200 MG TABLET PO PRN (08:23)
--- NOTE | 2022-08-28 08:23 | Internal Med Progress Note ---
SUBJECTIVE Subjective Patient information: Note initiated : 08/28/22 at 8:21 am Service Date, if different from initiated Date: [] Patient: Tennille Castillo a 77 y/o F admitted on 08/21/22 for shortness of breath, elevated blood sugar. Chief Complaint: [] Interval history: Ms. Castillo is a 77 year old F history of type 2 diabetes mellitus, chronic back pain from compression fracture of thoracic vertebra, hypothyroidism, essential tremor, dyslipidemia, presenting with a 4-day history of general weakness, loss of appetite, short of breath. She was recently hospitalized in our facility for the treatment of diabetic ketoacidosis and was being discharged home 4 days ago. She claims that since she got back home, she is continue to feel extremely weak, loss of appetite, as well as shortness of breath. She further stated that she did not have her home health physical therapy sections since she was being discharged home. Labs showing leukocytosis with WBCs 16.0. Blood glucose level greater than 700. VBH pH 6.85, bicarb 3.2, anion gap 19. Serum ketone pending. Admission request was called for another round of diabetic ketoacidosis associated with type 2 diabetes mellitus. Pending chest x-ray and urinalysis to rule out infections as trigger of diabetic ketoacidosis. 08/22: Patient's blood pressure dropped to 80s over 40s mmHg earlier this morning. Patient still on insulin drip at 1 unit/hr, and IV fluid D5 1/2NS w/ KCl 20mEq @150cc/hr. Still on Levophed drip, currently at 7 mcg/min. Morning labs pending. Latest blood glucose level 178. Patient is still complaining of severe general weakness. She is coming of shortness of breath. She is complaining of nonproductive cough and respiratory wheezings. She is complaining of shaking chills. She is complaining of sore throat. Blood culture x2 collected. CEPHEID for influenza and CoVID pending. Will also order rapid strep test. Started on Vancomycin and Meropenem (due to penicillin allergy) as empiric broad spectrum antibiotics for clinical sepsis. Continue NPO status with insulin drip, IV fluid infusion, Levophed drip, and the aforementioned antibiotics. Still extremely guarded. Stay in ICU. 08/23: CEPHEID negative for CoVID pneumonia. Rapid strep also negative. Fasting glucose 176 this morning. Levophed drip was being switched off at around 3 AM this morning. Urine output borderline at around 30 cc/h as of this morning. Order cultures no growth today. Patient is feeling better this morning, denies any pain including abdominal pain. She also denies any nausea or vomiting. She denies any insomnia overnight. She has a good appetite and is ready to have her breakfast. Continue vancomycin and Meropenem while monitoring blood culture results. Continuing basal bolus insulin therapy. We will have the Levophed drip standby. We will keep the patient in the ICU for now because patient is still guarded. Physical therapy evaluation and treatments today. 08/24: Fasting glucose 87 this morning. Blood pressure has been okay without Levophed drip. s/p physical therapy evaluation and treatment, and SNF is recommended. Blood cultures no growth to date. She is complaining of mild RUQ abdominal pain, denies nausea vomiting diarrhea or constipation. Good appetite, finished all the food provided. She denies any insomnia overnight. Continue Meropenem while monitoring blood culture results. Abdominal US to rule out any abdominal pathologies. Cut Insulin Lantus from 30 to 25 unit BID and medium scale insulin Lispro SSI AC HS. Transfer to med surg telemetry. Pending SNF placement. 08/25: Patient was up all night, finally went to sleep, currently sleeping. Blood cultures no growth to date. Serum potassium level 3.0. Serum Mg level 1.7. Fasting glucose 114. Abdominal US showing 2.0X1.9X2.1cm possible solid left upper pole renal mass. CT abdomen pelvis w/ contrast to follow up the possible left renal mass. Increase potassium chloride from 20 to 40mEq PO BID for better potassium replacement. Continue Lantus 25 unit BID and medium scale insulin Lispro SSI AC HS. Continue Meropenem while monitoring blood culture results. Stays in med surg telemetry. Pending SNF placement. 08/26: Serum potassium level 3.4. Serum Mg level 1.8. Fasting glucose [address] abdomen pelvis w/ contrast did not see any left renal mass. Patient is co mplaining of nausea and back pain. Continue potassium chloride oral replacement. Continue Lantus 25 unit BID and medium scale insulin Lispro SSI AC HS. d/c Meropenem. Stays in med surg. Pending SNF placement. 08/27: Fasting glucose 49 this morning. Patient was confused and had hand shakes at the same time. Such hypoglycemia was resolved after OJ was given. Otherwise there was no other major overnight events. Decreased Lantus from 25 to 20 unit BID. Switch from medium to low scale insulin Lispro SSI AC HS. Reached clinical stability, pending SNF placement. 08/28 No overnight events or new complaints. Patient seems to be tolerating the change in her Lantus. Review of Systems: denies headache/fever/chills/nausea/vomiting/chest or abdominal pain/cough/dyspnea/diarrhea. Otherwise see above. Constitutional Vitals: Vital Signs Temp Pulse Resp BP Pulse Ox O2 Del Method O2 Flow Rate 97.9 F 72 14 112/68 96 0 08/28/22 07:45 08/28/22 07:45 08/28/22 07:45 08/28/22 07:45 08/28/22 07:45 08/28/22 07:45 08/25/22 04:00 Period Temp Pulse Resp BP Sys/Rosario Pulse Ox O2 Del Method O2 Flow Rate Last 24 Hr 97.1 F-98.3 F 71-84 14-16 112-151/68-86 92-96 Room Air-Room Air Intake and Output 08/27/22 08/28/22 08/28/22 19:59 03:59 11:59 Intake Total 1440 400 Output Total 1050 1650 Balance 390 -1250 Weight 70.67 kg Intake & Output: Intake & Output 08/27/22 08/28/22 08/28/22 19:59 03:59 11:59 Intake Total 1440 400 Output Total 1050 1650 Balance 390 -1250 Weight 70.67 kg Intake: Oral 1440 400 Output: Void Amount 1050 1650 Other: Meal Dinner Percent of Meal Consumed 100% Feeding Ability Assist with Tray Set Up Urine Appearance Clear Clear Urine Color Yellow Pale Urine Odor Normal Normal # Voids 3 Exam: General: Alert, awake, No acute Distress Eyes/N/T: EOMI, Head/Neck: neck supple, CV: RRR, No murmurs, Pulm: Clear b/l, no wheezing/rhonchi/rales Abd: soft, nontender, +BS x4 Ext: no clubbing/cyanosis/edema Neuro: Alert, no focal deficits, moves all extremities, Skin: warm/dry OBJ DATA Labs CBC & Chem 7: 08/28/22 05:23 08/28/22 05:23 Labs: Abnormal Lab Results 08/28/22 08/28/22 08/27/22 05:23 05:23 05:28 WBC RBC Hgb Hct RDW 14.8 H Plt Count 132 L Lymph # (Auto) Absolute Neutrophils Carbon Dioxide 31 H Anion Gap 4.0 L 7.0 L Creatinine 0.5 L Glucose 61 L Calcium 8.4 L GGT 64 H AST 36 H 50 H Alkaline Phosphatase Lactate Dehydrogenase 238 H Total Protein 5.3 L 5.1 L Albumin 2.9 L 2.8 L Triglycerides 235 H 08/27/22 08/26/22 08/26/22 05:28 05:16 05:16 WBC 4.3 L 3.4 L RBC 3.49 L Hgb 10.8 L Hct 33.0 L RDW 15.5 H 14.6 H Plt Count 118 L 115 L Lymph # (Auto) 1.44 L Absolute Neutrophils 1.48 L Carbon Dioxide 33 H Anion Gap 7.0 L Creatinine 0.5 L Glucose 53 L Calcium GGT AST 69 H Alkaline Phosphatase 145 H Lactate Dehydrogenase Total Protein 5.7 L Albumin Triglycerides Meds: Medications Acetaminophen (Acetaminophen 325 Mg Tablet) 650 mg PO Q4-6HP PRN; Protocol PRN Reason: Per Pain Protocol/Fever > 101 Last Admin: 08/24/22 07:54 Dose: 650 mg Acyclovir (Acyclovir 400 Mg Tablet) 400 mg PO BID PEG; Protocol Last Admin: 08/28/22 08:11 Dose: 400 mg Albuterol/Ipratropium (Ipratropium/Albuterol 3 Ml Ampul.Neb) 3 ml NEB Q4HRT PRN PRN Reason: Wheezing Lipase/Protease/Amylase (Lipase/Protease/Amylase 1 Cap Capsule) 1 cap PO TIDCC PEG Last Admin: 08/28/22 08:12 Dose: 1 cap Atorvastatin Calcium (Atorvastatin 40 Mg Tablet) 40 mg PO QDAY PEG Last Admin: 08/28/22 08:10 Dose: 40 mg Calcium Carbonate/Glycine (Calcium Carbonate 500 Mg Tab.Chew) 500 mg CHEWED Q4HP PRN PRN Reason: Dyspepsia Last Admin: 08/27/22 19:06 Dose: 500 mg Dextrose (Dextrose 50% 50 Ml Vial) 0 ml IV UD PRN PRN Reason: Per Sliding Scale Diagnostic Test (Pha) (Accu-Chek 1 Each Strip) 1 each FS ACHS [facility] Last Admin: 08/28/22 07:14 Dose: 1 each Docusate Sodium (Docusate Sodium 100 Mg Capsule) 100 mg PO BID [facility] Last Admin: 08/28/22 08:10 Dose: 100 mg Duloxetine HCl (Duloxetine 30 Mg Capsule) 30 mg PO QDAY [facility] Last Admin: 08/28/22 08:10 Dose: 30 mg Enoxaparin Sodium (Enoxaparin 40 Mg/0.4 Ml Syringe) 40 mg SQ DAILY [facility] Last Admin: 08/28/22 08:13 Dose: 40 mg Gabapentin (Gabapentin 400 Mg Capsule) 800 mg PO TID [facility] Last Admin: 08/28/22 08:09 Dose: 800 mg Glucose (Dextrose 31 Gm Oral.Susp) 15 gm PO PRN PRN PRN Reason: Hypoglycemia Hyoscyamine (Hyoscyamine Sulfate 0.125 Mg Tablet) 0.125 mg PO Q6HP PRN PRN Reason: Abdominal Discomfort Last Admin: 08/27/22 08:54 Dose: 0.125 mg Ibuprofen (Ibuprofen 200 Mg Tablet) 200 mg PO Q6HP PRN PRN Reason: Pain Last Admin: 08/26/22 13:43 Dose: 200 mg Insulin Glargine (Insulin Glargine, Human 1 Unit/0.01 Ml) 20 unit SQ BID [facility] Last Admin: 08/28/22 08:13 Dose: 20 unit Insulin Human Lispro (Insulin Lispro 1 Unit/0.01 Ml Unit) 0 unit SQ [facility]; Protocol Last Admin: 08/28/22 07:14 Dose: Not Given Iron Carb/Multivit/August/Folic Acid (Multivit,Ther Iron,Ca,Fa & Min 1 Tablet) 1 tab PO DAILY [facility] Last Admin: 08/28/22 08:09 Dose: 1 tab Levothyroxine Sodium (Levothyroxine 125 Mcg Tablet) 125 mcg PO QAMAC [facility] Last Admin: 08/28/22 08:11 Dose: 125 mcg Loperamide HCl (Loperamide 2 Mg Capsule) 2 mg PO PRN PRN PRN Reason: Diarrhea Last Admin: 08/26/22 18:04 Dose: 2 mg Methocarbamol (Methocarbamol 500 Mg Tablet) 500 mg PO TIDP PRN PRN Reason: Muscle Spasm Last Admin: 08/27/22 11:42 Dose: 500 mg Morphine Sulfate (Morphine 4 Mg/Ml Vial) 4 mg IV Q2HP PRN; Protocol PRN Reason: Per Pain Protocol Last Admin: 08/27/22 21:12 Dose: 4 mg Ondansetron HCl (Ondansetron 4 Mg/2 Ml Vial) 4 mg IV Q4-6HP PRN; Protocol PRN Reason: Nausea And Vomiting Last Admin: 08/26/22 10:10 Dose: 4 mg Phenol (Phenol/Sodium Phenolate 5 [place] Bottle 180ml) 5 spray SSP Q2HP PRN PRN Reason: Sore Throat Last Admin: 08/22/22 20:29 Dose: 5 spray Potassium Chloride (Potassium Chloride 20 Meq Tablet) 40 meq PO BIDCC [facility] Last Admin: 08/28/22 08:11 Dose: 40 meq Promethazine HCl (Promethazine 25 Mg/Ml Vial) 25 mg IV Q4-6HP PRN; Protocol PRN Reason: Nausea And Vomiting Senna (Sennosides 1 Tablet) 1 tab PO DAILY [facility] Last Admin: 08/28/22 08:14 Dose: 1 tab Sodium Chloride (0.9 % Sodium Chloride 10 Ml Syringe) 10 ml IV Q8 [facility] Last Admin: 08/28/22 05:45 Dose: 10 ml Trazodone HCl (Trazodone Hcl 100 Mg Tablet) 100 mg PO HSP PRN PRN Reason: insomnia Last Admin: 08/28/22 00:31 Dose: 100 mg Vitamin D (Vitamin D3 25 Mcg Tablet) 50 mcg PO DAILY [facility] Last Admin: 08/28/22 08:12 Dose: 50 mcg Zinc Sulfate (Zinc Sulfate 50 Mg Capsule) 50 mg PO DAILY [facility] Last Admin: 08/28/22 08:11 Dose: 50 mg ABG Interpretation ABG results: 08/21/22 08/21/22 08/21/22 16:15 20:07 21:27 ABG Methemoglobin 0.3 L TNP 0.4 VBG pH 6.85 L* TNP 7.03 L* VBG pCO2 18.7 L* TNP 26.9 L VBG pO2 132.3 H TNP 45.0 H VBG HCO3 3.2 L* TNP 7.0 L* VBG Total CO2 3.7 L* TNP 7.8 L* VBG O2 Saturation 90.4 H TNP 74.8 H VBG Base Excess -30 L TNP -23 L 08/21/22 08/22/22 08/22/22 23:57 07:39 10:44 ABG Methemoglobin 0.3 L 0 L 0.3 L VBG pH 7.14 L* 7.34 7.34 VBG pCO2 32.1 L 27.5 L 25.9 L VBG pO2 45.9 H 129.7 H 140.2 H VBG HCO3 10.8 L* 14.5 L 13.5 L VBG Total CO2 11.7 L 15.3 L 14.3 L VBG O2 Saturation 78.1 H 85.1 H 91.6 H VBG Base Excess -17 L -10 L -11 L A/P Narrative A/P Narrative: Assessment and Plans: *Diabetic ketoacidosis associated with type 2 diabetes mellitus w/neuropathya: -HgA1c 12.0 -Decrease Lantus 25-->20 unit BID to avoid hypoglycemia , SSI -wellness educator referral -gabapentin *Hypokalemia: -Potassium chloride oral replacement, CMP in the morning to trend serum potassium level -Monitor and replace other electrolytes as needed *Clinical sepsis with septic shock: RESOLVED -Blood culture X2, no growth to date -CEPHEID for influenza and CoVID negative -d/c Meropenem *RUQ abdominal pain with transaminitis: -US abdomen showing possible left renal mass, follow up CT abd/pelv did not see any left renal mass *Chronic back pain: 2/2 compression fracture of thoracic vertebra: -Tylenol , Oxycodone , Morphine IV *Hypothyroidism: Continue thyroid replacement therapy *Essential tremor: Hold Propranolol due to recent septic shock *Chronic pancreatitis: *Generalized weakness/deconditioning: Physical therapy evaluation and treatment-->recs. SNF placement *ppx: Lovenox Code status: DNR Time Spent With Patient Time: Total time spent is greater than 50% in coordination of care (as documented) at patient's floor/unit and/or counseling patient: Total time spent with greater than 50% in coordination of care (as documented) at patient's floor/unit and/or counseling patient:: 35 - 50 minutes QUALITY VTE Deep Vein Thrombosis/Pulmonary Embolism Present on Admission: No
[2022-08-28] MEDS: morphine 4 MG/ML VIAL IV PRN ×4 (09:50→22:08)
[2022-08-28] MEDS: CALCIUM CARBONATE 500 MG TAB.CHEW CHEWED PRN (22:07)
[2022-08-29] MEDS: 0.9 % SODIUM CHLORIDE 10 ML SYRINGE IV SCH (05:30)
[2022-08-29] MEDS: LEVOTHYROXINE 125 MCG TABLET PO SCH (07:25)
[2022-08-29] MEDS: POTASSIUM CHLORIDE 20 MEQ TABLET PO SCH (07:25)
[2022-08-29] MEDS: LIPASE/PROTEASE/AMYLASE 1 CAP CAPSULE PO SCH ×2 (07:26→12:18)
[2022-08-29] MEDS: INSULIN LISPRO 1 UNIT/0.01 ML UNIT SQ SCH ×2 (07:26→11:15)
--- NOTE | 2022-08-29 08:12 | Internal Med Progress Note ---
SUBJECTIVE Subjective Patient information: Note initiated : 08/29/22 at 8:11 am Service Date, if different from initiated Date: [] Patient: Tennille Castillo a 77 y/o F admitted on 08/21/22 for shortness of breath, elevated blood sugar. Chief Complaint: [] Interval history: Ms. Castillo is a 77 year old F history of type 2 diabetes mellitus, chronic back pain from compression fracture of thoracic vertebra, hypothyroidism, essential tremor, dyslipidemia, presenting with a 4-day history of general weakness, loss of appetite, short of breath. She was recently hospitalized in our facility for the treatment of diabetic ketoacidosis and was being discharged home 4 days ago. She claims that since she got back home, she is continue to feel extremely weak, loss of appetite, as well as shortness of breath. She further stated that she did not have her home health physical therapy sections since she was being discharged home. Labs showing leukocytosis with WBCs 16.0. Blood glucose level greater than 700. VBH pH 6.85, bicarb 3.2, anion gap 19. Serum ketone pending. Admission request was called for another round of diabetic ketoacidosis associated with type 2 diabetes mellitus. Pending chest x-ray and urinalysis to rule out infections as trigger of diabetic ketoacidosis. 08/22: Patient's blood pressure dropped to 80s over 40s mmHg earlier this morning. Patient still on insulin drip at 1 unit/hr, and IV fluid D5 1/2NS w/ KCl 20mEq @150cc/hr. Still on Levophed drip, currently at 7 mcg/min. Morning labs pending. Latest blood glucose level 178. Patient is still complaining of severe general weakness. She is coming of shortness of breath. She is complaining of nonproductive cough and respiratory wheezings. She is complaining of shaking chills. She is complaining of sore throat. Blood culture x2 collected. CEPHEID for influenza and CoVID pending. Will also order rapid strep test. Started on Vancomycin and Meropenem (due to penicillin allergy) as empiric broad spectrum antibiotics for clinical sepsis. Continue NPO status with insulin drip, IV fluid infusion, Levophed drip, and the aforementioned antibiotics. Still extremely guarded. Stay in ICU. 08/23: CEPHEID negative for CoVID pneumonia. Rapid strep also negative. Fasting glucose 176 this morning. Levophed drip was being switched off at around 3 AM this morning. Urine output borderline at around 30 cc/h as of this morning. Order cultures no growth today. Patient is feeling better this morning, denies any pain including abdominal pain. She also denies any nausea or vomiting. She denies any insomnia overnight. She has a good appetite and is ready to have her breakfast. Continue vancomycin and Meropenem while monitoring blood culture results. Continuing basal bolus insulin therapy. We will have the Levophed drip standby. We will keep the patient in the ICU for now because patient is still guarded. Physical therapy evaluation and treatments today. 08/24: Fasting glucose 87 this morning. Blood pressure has been okay without Levophed drip. s/p physical therapy evaluation and treatment, and SNF is recommended. Blood cultures no growth to date. She is complaining of mild RUQ abdominal pain, denies nausea vomiting diarrhea or constipation. Good appetite, finished all the food provided. She denies any insomnia overnight. Continue Meropenem while monitoring blood culture results. Abdominal US to rule out any abdominal pathologies. Cut Insulin Lantus from 30 to 25 unit BID and medium scale insulin Lispro SSI AC HS. Transfer to med surg telemetry. Pending SNF placement. 08/25: Patient was up all night, finally went to sleep, currently sleeping. Blood cultures no growth to date. Serum potassium level 3.0. Serum Mg level 1.7. Fasting glucose 114. Abdominal US showing 2.0X1.9X2.1cm possible solid left upper pole renal mass. CT abdomen pelvis w/ contrast to follow up the possible left renal mass. Increase potassium chloride from 20 to 40mEq PO BID for better potassium replacement. Continue Lantus 25 unit BID and medium scale insulin Lispro SSI AC HS. Continue Meropenem while monitoring blood culture results. Stays in med surg telemetry. Pending SNF placement. 08/26: Serum potassium level 3.4. Serum Mg level 1.8. Fasting glucose [address] abdomen pelvis w/ contrast did not see any left renal mass. Patient is co mplaining of nausea and back pain. Continue potassium chloride oral replacement. Continue Lantus 25 unit BID and medium scale insulin Lispro SSI AC HS. d/c Meropenem. Stays in med surg. Pending SNF placement. 08/27: Fasting glucose 49 this morning. Patient was confused and had hand shakes at the same time. Such hypoglycemia was resolved after OJ was given. Otherwise there was no other major overnight events. Decreased Lantus from 25 to 20 unit BID. Switch from medium to low scale insulin Lispro SSI AC HS. Reached clinical stability, pending SNF placement. 08/28 No overnight events or new complaints. Patient seems to be tolerating the change in her Lantus. 08/29 Seems to be feeling well. No overnight event or new complaints. Stable blood glucose. Review of Systems: denies headache/fever/chills/nausea/vomiting/chest or abdominal pain/cough/dyspnea/diarrhea. Otherwise see above. Constitutional Vitals: Vital Signs Temp Pulse Resp BP Pulse Ox O2 Del Method O2 Flow Rate 98.1 F 75 16 106/58 95 0 08/29/22 07:10 08/29/22 07:10 08/29/22 07:10 08/29/22 07:10 08/29/22 07:10 08/29/22 07:10 08/25/22 04:00 Period Temp Pulse Resp BP Sys/Rosario Pulse Ox O2 Del Method O2 Flow Rate Last 24 Hr 96.7 F-98.1 F 70-87 14-18 103-144/58-83 94-97 Room Air-Room Air Intake and Output 08/28/22 08/29/22 08/29/22 19:59 03:59 11:59 Intake Total 240 200 Output Total 1500 1000 Balance -1260 -800 Weight 68.901 kg Intake & Output: Intake & Output 08/28/22 08/29/22 08/29/22 19:59 03:59 11:59 Intake Total 240 200 Output Total 1500 1000 Balance -1260 -800 Weight 68.901 kg Intake: Oral 240 200 Output: Void Amount 1500 1000 Other: Urine Appearance Clear Cloudy Urine Color Yellow Yellow Urine Odor Normal Stool Size Small Exam: General: Alert, awake, No acute Distress Eyes/N/T: EOMI, Head/Neck: neck supple, CV: RRR, No murmurs, Pulm: Clear b/l, no wheezing/rhonchi/rales Abd: soft, nontender, +BS x4 Ext: no clubbing/cyanosis/edema Neuro: Alert, no focal deficits, moves all extremities, Skin: warm/dry OBJ DATA Labs CBC & Chem 7: 08/28/22 05:23 08/28/22 05:23 Labs: Abnormal Lab Results 08/28/22 08/28/22 08/27/22 05:23 05:23 05:28 WBC RBC Hgb Hct RDW 14.8 H Plt Count 132 L Carbon Dioxide 31 H Anion Gap 4.0 L 7.0 L Creatinine 0.5 L Glucose 61 L Calcium 8.4 L GGT 64 H AST 36 H 50 H Lactate Dehydrogenase 238 H Total Protein 5.3 L 5.1 L Albumin 2.9 L 2.8 L Triglycerides 235 H 08/27/22 05:28 WBC 4.3 L RBC 3.49 L Hgb 10.8 L Hct 33.0 L RDW 15.5 H Plt Count 118 L Carbon Dioxide Anion Gap Creatinine Glucose Calcium GGT AST Lactate Dehydrogenase Total Protein Albumin Triglycerides Meds: Medications Acetaminophen (Acetaminophen 325 Mg Tablet) 650 mg PO Q4-6HP PRN; Protocol PRN Reason: Per Pain Protocol/Fever > 101 Last Admin: 08/24/22 07:54 Dose: 650 mg Acyclovir (Acyclovir 400 Mg Tablet) 400 mg PO BID [facility]; Protocol Last Admin: 08/28/22 21:31 Dose: 400 mg Albuterol/Ipratropium (Ipratropium/Albuterol 3 Ml Ampul.Neb) 3 ml NEB Q4HRT PRN PRN Reason: Wheezing Lipase/Protease/Amylase (Lipase/Protease/Amylase 1 Cap Capsule) 1 cap PO TIDCC [facility] Last Admin: 08/29/22 07:26 Dose: 1 cap Atorvastatin Calcium (Atorvastatin 40 Mg Tablet) 40 mg PO QDAY [facility] Last Admin: 08/28/22 08:10 Dose: 40 mg Calcium Carbonate/Glycine (Calcium Carbonate 500 Mg Tab.Chew) 500 mg CHEWED Q4HP PRN PRN Reason: Dyspepsia Last Admin: 08/28/22 22:07 Dose: 500 mg Dextrose (Dextrose 50% 50 Ml Vial) 0 ml IV UD PRN PRN Reason: Per Sliding Scale Diagnostic Test (Pha) (Accu-Chek 1 Each Strip) 1 each FS ACHS [facility] Last Admin: 08/29/22 07:26 Dose: 1 each Docusate Sodium (Docusate Sodium 100 Mg Capsule) 100 mg PO BID [facility] Last Admin: 08/28/22 21:32 Dose: Not Given Duloxetine HCl (Duloxetine 30 Mg Capsule) 30 mg PO QDAY [facility] Last Admin: 08/28/22 08:10 Dose: 30 mg Enoxaparin Sodium (Enoxaparin 40 Mg/0.4 Ml Syringe) 40 mg SQ DAILY [facility] Last Admin: 08/28/22 08:13 Dose: 40 mg Gabapentin (Gabapentin 400 Mg Capsule) 800 mg PO TID [facility] Last Admin: 08/28/22 21:31 Dose: 800 mg Glucose (Dextrose 31 Gm Oral.Susp) 15 gm PO PRN PRN PRN Reason: Hypoglycemia Hyoscyamine (Hyoscyamine Sulfate 0.125 Mg Tablet) 0.125 mg PO Q6HP PRN PRN Reason: Abdominal Discomfort Last Admin: 08/27/22 08:54 Dose: 0.125 mg Ibuprofen (Ibuprofen 200 Mg Tablet) 200 mg PO Q6HP PRN PRN Reason: Pain Last Admin: 08/28/22 08:23 Dose: 200 mg Insulin Glargine (Insulin Glargine, Human 1 Unit/0.01 Ml) 20 unit SQ BID [facility] Last Admin: 08/28/22 21:40 Dose: 20 unit Insulin Human Lispro (Insulin Lispro 1 Unit/0.01 Ml Unit) 0 unit SQ ACHS [facility]; Protocol Last Admin: 08/29/22 07:26 Dose: 2 unit Iron Carb/Multivit/Mesa/Folic Acid (Multivit,Ther Iron,Ca,Fa & Min 1 Tablet) 1 tab PO DAILY [facility] Last Admin: 08/28/22 08:09 Dose: 1 tab Levothyroxine Sodium (Levothyroxine 125 Mcg Tablet) 125 mcg PO QAMAC [facility] Last Admin: 08/29/22 07:25 Dose: 125 mcg Loperamide HCl (Loperamide 2 Mg Capsule) 2 mg PO PRN PRN PRN Reason: Diarrhea Last Admin: 08/26/22 18:04 Dose: 2 mg Methocarbamol (Methocarbamol 500 Mg Tablet) 500 mg PO TIDP PRN PRN Reason: Muscle Spasm Last Admin: 08/27/22 11:42 Dose: 500 mg Morphine Sulfate (Morphine 4 Mg/Ml Vial) 4 mg IV Q2HP PRN; Protocol PRN Reason: Per Pain Protocol Last Admin: 08/28/22 22:08 Dose: 4 mg Ondansetron HCl (Ondansetron 4 Mg/2 Ml Vial) 4 mg IV Q4-6HP PRN; Protocol PRN Reason: Nausea And Vomiting Last Admin: 08/26/22 10:10 Dose: 4 mg Phenol (Phenol/Sodium Phenolate 5 Lamar Bottle 180ml) 5 spray SSP Q2HP PRN PRN Reason: Sore Throat Last Admin: 08/22/22 20:29 Dose: 5 spray Potassium Chloride (Potassium Chloride 20 Meq Tablet) 40 meq PO BIDCC [facility] Last Admin: 08/29/22 07:25 Dose: 40 meq Promethazine HCl (Promethazine 25 Mg/Ml Vial) 25 mg IV Q4-6HP PRN; Protocol PRN Reason: Nausea And Vomiting Senna (Sennosides 1 Tablet) 1 tab PO DAILY [facility] Last Admin: 08/28/22 08:14 Dose: 1 tab Sodium Chloride (0.9 % Sodium Chloride 10 Ml Syringe) 10 ml IV Q8 [facility] Last Admin: 08/29/22 05:30 Dose: 10 ml Trazodone HCl (Trazodone Hcl 100 Mg Tablet) 100 mg PO HSP PRN PRN Reason: insomnia Last Admin: 08/28/22 23:15 Dose: 100 mg Vitamin D (Vitamin D3 25 Mcg Tablet) 50 mcg PO DAILY [facility] Last Admin: 08/28/22 08:12 Dose: 50 mcg Zinc Sulfate (Zinc Sulfate 50 Mg Capsule) 50 mg PO DAILY [facility] Last Admin: 08/28/22 08:11 Dose: 50 mg ABG Interpretation ABG results: 08/21/22 08/21/22 08/21/22 16:15 20:07 21:27 ABG Methemoglobin 0.3 L TNP 0.4 VBG pH 6.85 L* TNP 7.03 L* VBG pCO2 18.7 L* TNP 26.9 L VBG pO2 132.3 H TNP 45.0 H VBG HCO3 3.2 L* TNP 7.0 L* VBG Total CO2 3.7 L* TNP 7.8 L* VBG O2 Saturation 90.4 H TNP 74.8 H VBG Base Excess -30 L TNP -23 L 08/21/22 08/22/22 08/22/22 23:57 07:39 10:44 ABG Methemoglobin 0.3 L 0 L 0.3 L VBG pH 7.14 L* 7.34 7.34 VBG pCO2 32.1 L 27.5 L 25.9 L VBG pO2 45.9 H 129.7 H 140.2 H VBG HCO3 10.8 L* 14.5 L 13.5 L VBG Total CO2 11.7 L 15.3 L 14.3 L VBG O2 Saturation 78.1 H 85.1 H 91.6 H VBG Base Excess -17 L -10 L -11 L A/P Narrative A/P Narrative: Assessment and Plans: *Diabetic ketoacidosis associated with type 2 diabetes mellitus w/neuropathya: -HgA1c 12.0 -Decrease Lantus 25-->20 unit BID to avoid hypoglycemia , SSI -certified diabetes educator referral -gabapentin *Hypokalemia: -Potassium chloride oral replacement, CMP in the morning to trend serum potassium level -Monitor and replace other electrolytes as needed *Clinical sepsis with septic shock: RESOLVED -Blood culture X2, no growth to date, CEPHEID for influenza and CoVID negative, d/c Meropenem *RUQ abdominal pain with transaminitis: -US abdomen showing possible left renal mass, follow up CT abd/pelv did not see any left renal mass *Chronic back pain: 2/2 compression fracture of thoracic vertebra: -Tylenol , Oxycodone , Morphine IV *Hypothyroidism: Continue thyroid replacement therapy *Essential tremor: Hold Propranolol due to recent septic shock *Chronic pancreatitis: *Generalized weakness/deconditioning: -Physical therapy evaluation and treatment-->recs. SNF placement *ppx: Lovenox Code status: DNR Time Spent With Patient Time: Total time spent is greater than 50% in coordination of care (as documented) at patient's floor/unit and/or counseling patient: Total time spent with greater than 50% in coordination of care (as documented) at patient's floor/unit and/or counseling patient:: 25 - 35 minutes QUALITY VTE Deep Vein Thrombosis/Pulmonary Embolism Present on Admission: No
[2022-08-29] MEDS: VITAMIN D3 25 MCG TABLET PO SCH (08:26)
[2022-08-29] MEDS: GABAPENTIN 400 MG CAPSULE PO SCH (08:26)
[2022-08-29] MEDS: SENNOSIDES 1 TABLET PO SCH (08:27)
[2022-08-29] MEDS: DULoxetine 30 MG CAPSULE PO SCH (08:27)
[2022-08-29] MEDS: ZINC SULFATE 50 MG CAPSULE PO SCH (08:27)
[2022-08-29] MEDS: ACYCLOVIR 400 MG TABLET PO SCH (08:27)
[2022-08-29] MEDS: ATORVASTATIN 40 MG TABLET PO SCH (08:28)
[2022-08-29] MEDS: DOCUSATE SODIUM 100 MG CAPSULE PO SCH (08:28)
[2022-08-29] MEDS: MULTIVIT,THER IRON,CA,FA & MIN 1 TABLET PO SCH (08:28)
[2022-08-29] MEDS: INSULIN GLARGINE, HUMAN 1 UNIT/0.01 ML SQ SCH (08:28)
[2022-08-29] MEDS: ENOXAPARIN 40 MG/0.4 ML SYRINGE SQ SCH (08:28)
[2022-08-29] MEDS: morphine 4 MG/ML VIAL IV PRN (11:15)
== END 2022-08-29 13:14 | DRG 637 ==
LOC: ED 14:21 → ICU 17:23 → MEDSUR 08-25 16:27
PROVIDERS: ADMIT Internal Medicine; ATTEND Internal Medicine

== ENCOUNTER 2022-10-13 18:29 | Inpatient (IN) ==
[2022-10-13] MEDS ORDERED: 0.9 % SODIUM CHLORIDE 1,000 ML IV ONE ×2 (18:37→19:15)
--- NOTE | 2022-10-13 18:37 | Emergency Department Note ---
HPI General Chief complaint: Blood Sugar Problem Stated complaint: Pain all over, "HI" blood glucose. Time Seen by Provider: 10/13/22 18:37 Source: patient and EMS Mode of arrival: EMS Limitations: no limitations History of Present Illness HPI Narrative: Narrative: Patient is a 77-year-old female with history of type 2 diabetes that presents to the emergency department today by EMS indicating that that her glucometer at home read "high". She reports that typically this means her blood sugars over 600. She has a history of DKA. She has been having some mild nausea without any vomiting, chest pain, shortness of breath, difficulty breathing. She reports feeling body aches and has not been feeling well for about 1 week. She has been having abdominal aching sensation throughout her entire abdomen for the last couple of weeks. Patient denies having any constipation, diarrhea, melena, or hematochezia. She had a bowel movement yesterday that was soft and brown. She did not take her insulin today. She is prescribed Tresiba 20 units twice daily. She has not been taking her medication today as she could not find her medication. She reports that her caregiver placed her medication box somewhere that she could not find it. Patient has not had any fevers or chills. She has not had any dysuria, urinary frequency polyuria, polydipsia, or polyphagia. She has not had any falls, confusion, vision changes. Related Data Home Medications Medication Instructions Recorded Confirmed multivit [id number] 1 tab PO DAILY 07/15/21 10/14/22 [Hair, Skin and Nails Advanced] trazodone 100 mg tablet 100 mg PO HSP PRN insomnia 08/22/21 10/14/22 acyclovir 400 mg tablet 1 tab PO BID 09/21/21 10/14/22 cholecalciferol (vitamin D3) 50 50 mcg PO DAILY 12/04/21 10/14/22 mcg (2,000 unit) capsule (Vitamin D3) insulin aspart U-100 100 unit/mL See Protocol subcut ACHS 04/23/22 10/14/22 (3 mL) subcutaneous pen (Novolog FlexPen U-100 Insulin aspart) blood sugar diagnostic (True 08/21/22 10/14/22 Metrix Glucose Test Strip) levothyroxine 125 mcg tablet 1 tab PO QAM 08/21/22 10/14/22 ketoconazole 2 % shampoo 1 applic topical DAILY 10/14/22 10/14/22 Previous Rx's Medication Instructions Recorded methocarbamol 500 mg tablet 500 mg PO TIDP PRN Muscle Spasm 05/08/22 #30 tabs insulin degludec 100 unit/mL 20 unit (0.2 mL) subcut BID #10 mL 08/29/22 subcutaneous solution (Tresiba U-100 Insulin) Allergies Allergy/AdvReac Type Severity Reaction Status Date / Time cephalexin [From Keflex] Allergy Intermediate Swelling Verified 08/15/22 20:56 lidocaine Allergy Intermediate Blister Verified 08/15/22 20:56 Penicillins Allergy Mild Rash Verified 08/15/22 20:56 Anistreplase [From Eminase] Allergy Unknown UNKNOWN Verified 08/15/22 20:56 fenugreek Allergy Unknown UNKNOWN Verified 08/15/22 20:56 codeine AdvReac Mild Itching Verified 08/15/22 20:56 Erythromycin Base AdvReac Mild Itching Verified 08/15/22 20:56 Nortriptyline AdvReac Mild Nausea Verified 08/15/22 20:56 promethazine AdvReac Mild Fainting Verified 08/15/22 20:56 trulicity AdvReac Intermediate Other Uncoded 12/04/21 06:40 Review of Systems ROS ROS Narrative: Narrative: All systems ED: reviewed and negative except as stated. [facility] Narrative Patient History Narrative: Narrative: Medical/Surgical/Family History All Active Problems (Updated 10/13/22 @ 20:13 by PAULINA Chatman) Hypokalemia (Acute) Left renal mass (Acute) Transaminitis (Acute) Septic shock (Acute) Clinical sepsis (Acute) DKA, type 2 (Acute) Essential hypertension (Acute) Mixed dyslipidemia (Acute) Hyperkalemia (Acute) Compression fracture of body of thoracic vertebra (Acute) Pain in rib (Acute) Hyperglycemia due to type 2 diabetes mellitus (Acute) Chronic pain syndrome (Acute) DKA, type 2 (Acute) Hypoglycemia (Acute) DKA (diabetic ketoacidosis) (Acute) Acute hyponatremia (Acute) Acute hyperkalemia (Acute) Acidosis, lactic (Acute) Metabolic acidosis (Acute) Blood in urine (Chronic) Diabetic keto-acidosis (Chronic) Pseudohyponatremia (Chronic) DKA (diabetic ketoacidosis) (Chronic) Hypomagnesemia (Chronic) Generalized weakness (Chronic) Acute dehydration (Chronic) Diabetic ketosis (Chronic) Acute dyspnea (Chronic) Obstructive sleep apnea (Chronic) DKA (diabetic ketoacidosis) (Chronic) Vulvovaginitis due to yeast (Chronic) Sleepwalking (Chronic) REM sleep behavior disorder (Chronic) Hypersomnia (Chronic) Snoring (Chronic) Tremor (Chronic) Neurofibromatosis 2 (Chronic) Trigger finger (Chronic) Sleep disturbance (Chronic) Arthralgia (Chronic) Pancreatitis (Chronic) Macular degeneration (Chronic) Hepatitis A (Chronic) Glaucoma (Chronic) Fibromyalgia (Chronic) DDD (degenerative disc disease), cervical (Chronic) Diabetic retinopathy (Chronic) Opioid dependence (Chronic) Stress (Chronic) Hard of hearing (Chronic) Multiple environmental allergies (Chronic) Fracture of lumbar spine (Chronic) Compression fracture of lumbosacral spine (Chronic) Abdominal pain (Chronic) Chronic pancreatitis (Chronic) Liver mass (Chronic) Cirrhosis of liver (Chronic) Constipation (Chronic) Neuropathy (Chronic) Chronic pain (Chronic) Essential tremor (Chronic) Bimalleolar ankle fracture (Chronic) Chronic bronchitis with acute exacerbation (Chronic) Dehydration (Chronic) Epistaxis (Chronic) Hypoxia (Chronic) Anterior epistaxis (Chronic) Candidiasis of mouth (Chronic) DKA (diabetic ketoacidosis) (Chronic) Conjunctivitis (Chronic) Bronchitis (Chronic) Dehiscence of closure of skin (Chronic) Anemia (Chronic) Elevated liver enzymes (Chronic) 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) Radiculopathy, sacral and sacrococcygeal region (Chronic) Radiculopathy, lumbosacral region (Chronic) Insomnia (Chronic) Levator syndrome (Chronic) Sacrococcygeal pain (Chronic) History of surgery (Chronic) Hypothyroidism (Chronic) Chronic bronchitis (Chronic) 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) Depression (Chronic) Anxiety (Chronic) Hypertension (Chronic) Osteoporosis (Chronic) Rectal pain (Chronic) Low back pain (Chronic) Pain in thoracic spine (Chronic) Age-related osteoporosis with current pathological fracture, vertebra(e), initial encounter for fracture (Chronic) Medical History Abdominal pain Acute exacerbation of chronic obstructive airways disease Age-related osteoporosis with current pathological fracture, vertebra(e), i nitial encounter for fracture Anemia Anterior epistaxis Anxiety Arthralgia Bilateral primary osteoarthritis of hip Bimalleolar ankle fracture Blood in urine Bronchitis Candidiasis of mouth Chronic bronchitis with acute exacerbation Chronic pain Chronic pancreatitis Cirrhosis of liver Compression fracture of lumbosacral spine Conjunctivitis Constipation DDD (degenerative disc disease), cervical Dehiscence of closure of skin Dehydration Depression Diabetic retinopathy DKA (diabetic ketoacidosis) Elevated liver enzymes Epistaxis Essential tremor Fibromyalgia Fracture of lumbar spine Glaucoma Hard of hearing Hepatitis A Hyperglycemia due to type 2 diabetes mellitus Hypersomnia Hypertension Hypothyroidism Hypoxia Insomnia Levator syndrome Lipomatosis Liver mass Low back pain Macular degeneration Multiple environmental allergies Neurofibromatosis 2 Neuropathy Obstructive sleep apnea Opioid dependence Osteoporosis Pain in thoracic spine Pancreatitis Radiculopathy, lumbosacral region Radiculopathy, sacral and sacrococcygeal region Rectal pain REM sleep behavior disorder Sacrococcygeal pain Sleep disturbance Sleepwalking Snoring Stress Tremor Trigger finger Surgical History History of appendectomy (~1969) History of arthroplasty of right ankle (~2017) History of cataract surgery (~2003) History of cholecystectomy History of colonoscopy (~06/26/18) History of decompression of median nerve (~2003) History of dilation and curettage History of eye surgery (~2005) Glaucoma History of hand surgery (~2003) Release of trigger finger, right History of left breast biopsy (~2005) History of oophorectomy History of surgery Vertebroplasty T12 w/sed 09/28/19 History of surgery retinopathy laser Stereotactic destruction of lesion using gamma radiation-2004 History of surgery on wrist History of tonsillectomy and adenoidectomy (~1969) Family History Mother Heart disease Fibromyalgia Father Malignant melanoma Malignant tumor of prostate Leukemia Social History Smoking Status: Never smoker Alcohol Intake Frequency: does not drink Substance Use: does not use Exam Narrative Narrative: Narrative: General Limitations: no limitations General appearance: Present alert and in no apparent distress Eye Eye: Present normal appearance; Absent scleral icterus ENT ENT: Present normal oropharynx and mucous membranes dry Neck Neck: Present normal inspection and full ROM; Absent tenderness or lymphadenopathy Chest Chest: Present symmetric chest wall rise Respiratory Respiratory: Present normal lung sounds bilaterally; Absent respiratory distres s, rales/crackles, wheezes, stridor or accessory muscle use Cardiovascular Cardiovascular: Present regular rate, normal rhythm and normal heart sounds Adbominal Abdominal: Present soft, tenderness (Moderate diffuse abdominal tenderness in all 4 quadrants.) and normal bowel sounds; Absent distention, rebound, rigidity, Spence's sign, tenderness at McBurney's Point or mass Extremities Extremities: Present normal inspection, full ROM and normal capillary refill; Absent tenderness, pedal edema, pretibial edema or cyanosis Neurological Neurological: Present alert, oriented X3 and CN II-XII intact Expanded Neurological Patient oriented to: Present person, place and time CRANIAL NERVES: EOM function (II, III, IV, ): Normal, facial sensation (V): Normal, facial palsy (VII): Normal, gag reflex (IX): Normal, spinal accessory fu nction (XI): Normal and tongue deviation (XII): Normal CEREBELLAR FUNCTION: finger to nose: Normal and heel to jin: Normal CEREBELLAR FUNCTION: normal gait Motor strength - LUE: 5/5 Motor strength - RUE: 5/5 Motor strength - LLE: 5/5 Motor strength - RLE: 5/5 SENSORY EXAM UPPER EXTREMITY: Normal: light touch SENSORY EXAM LOWER EXTREMITY: Normal: light touch Coma Scale Eye Opening: Spontaneous Coma Scale Motor Response: Obeys Commands Coma Scale Verbal Response: Oriented Coma Scale Total: 15 Psychiatric Psychiatric: Present normal affect and normal mood Skin Skin: Present warm (WNL), dry and normal color Course Vital Signs Vital signs: Vital Signs Temperature 96.5 F L 10/13/22 18:30 Pulse Rate 91 H 10/13/22 18:30 Respiratory Rate 26 H 10/13/22 18:30 Blood Pressure 127/35 10/13/22 18:30 Oxygen Delivery Method Room Air 10/13/22 18:30 Temperature 97.5 F 10/14/22 12:04 Pulse Rate 73 10/14/22 12:04 Respiratory Rate 10 L 10/14/22 12:04 Blood Pressure 107/43 10/14/22 12:04 Pulse Oximetry (%) 100 10/14/22 12:04 Oxygen Delivery Method Room Air 10/14/22 07:17 MDM MDM Narrative Medical decision making narrative: Narrative: 77-year-old female presented the emergency department today by EMS with complaint of abdominal aching sensation, glucometer reading as "high" and she did not take her insulin today as she could not find her medication. She has been having weakness over the last week. Began work-up with labs today. Evaluated for DKA today. Patient's pH on venous ABG is 7.04, HCO3 4.8, lactic acid 1.76, potassium 5.6, sodium 127, and blood glucose greater than 700. Ordered for the patient 1 L normal saline for hydration, and 10 units of regular insulin IV for elevated blood sugar. CBC does not show any leukocytosis or anemia. Patient's beta hydroxybutyrate is 11. Patient's work-up today reveals diabetic ketoacidosis. 1 hour after IV insulin given patient's blood sugar remains "high" on the glucometer. I feel the patient would benefit from hospital admission today at [facility]. I was able to speak with hospitalist, Dr. Mcdaniel today, and he agrees to accept the patient for hospital admission at [facility] for DKA. Currently awaiting a urinalysis to evaluate ketones. Will need to straight cath patient to collect urine specimen as she has not voided yet. Lab Data Lab results reviewed: Yes I reviewed the patient's lab results. 10/13/22 18:52 Labs: Lab Results 10/13/22 10/13/22 10/13/22 Range/Units 18:52 18:52 18:52 WBC 5.5 (4.5-11.0) K/mcL RBC 4.52 (3.59-5.38) M/mcL Hgb 13.3 (11.2-15.7) g/dL Hct 43.5 (34.1-44.9) % POC Hct (36-48) MCV 96.2 (80.0-100.0) fL MCH 29.4 (26.0-34.0) pg MCHC 30.6 L (31.0-36.0) g/dL RDW 13.9 (11.5-14.5) % Plt Count 220 (140-440) K/mcL MPV 11.2 (8.8-12.5) fL Immature Gran % (Auto) 1.1 H (0.0-0.5) % Neut % (Auto) 68.7 (38.0-78.0) % Lymph % (Auto) 24.9 (15.5-49.0) % Bryan % (Auto) 4.2 (1.0-12.0) % Eos % (Auto) 0.4 (0.0-7.0) % Baso % (Auto) 0.7 (0.0-2.0) % Lymph # (Auto) 1.36 L (1.50-4.80) K/mcL Bryan # (Auto) 0.23 (0.10-0.90) K/mcL Eos # (Auto) 0.02 (0.00-0.70) K/mcL Baso # (Auto) 0.04 (0.00-0.30) K/mcL Immature Gran # 0.06 H (0.00-0.05) K/mcl Absolute Neutrophils 3.76 (1.80-8.00) K/mcL POC VBG pH (7.32-7.42) POC VBG pCO2 at Temp (41-51) POC VBG pO2 (25-40) POC VBG HCO3 (24-28) POC VBG Total CO2 (25-29) POC Venous O2 Sat (40-70) POC VBG Base Excess (-2-2) VBG Lactic Acid (0.5-2) POC Sodium (133-145) POC Potassium (3.3-5.1) POC Chloride (96-108) POC Total CO2 (22-30) POC BUN (6-20) POC Creatinine (0.6-1.2) POC Glucose (70-105) Hemoglobin A1c (4.0-6.0) % Hgb Estim Average Glucose mg/dL POC WB Ioniz Calcium (1.16-1.32) Magnesium 2.2 (1.6-2.5) mg/dL Total Bilirubin 0.4 (0.1-1.0) mg/dL Direct Bilirubin 0.2 (<0.3) mg/dL AST 17 (<32) U/L ALT 18 (<40) U/L Alkaline Phosphatase 167 H (39-117) U/L Total Protein 6.9 (5.9-8.4) gm/dL Albumin 4.0 (3.2-5.2) gm/dL Globulin 2.9 (2.2-3.7) gm/dL Beta-Hydroxybutyrate 11.00 H (<0.27) mmol/L 10/13/22 10/13/22 10/13/22 Range/Units 18:52 18:55 19:00 WBC (4.5-11.0) K/mcL RBC (3.59-5.38) M/mcL Hgb (11.2-15.7) g/dL Hct (34.1-44.9) % POC Hct 44.0 (36-48) MCV (80.0-100.0) fL MCH (26.0-34.0) pg MCHC (31.0-36.0) g/dL RDW (11.5-14.5) % Plt Count (140-440) K/mcL MPV (8.8-12.5) fL Immature Gran % (Auto) (0.0-0.5) % Neut % (Auto) (38.0-78.0) % Lymph % (Auto) (15.5-49.0) % Bryan % (Auto) (1.0-12.0) % Eos % (Auto) (0.0-7.0) % Baso % (Auto) (0.0-2.0) % Lymph # (Auto) (1.50-4.80) K/mcL Bryan # (Auto) (0.10-0.90) K/mcL Eos # (Auto) (0.00-0.70) K/mcL Baso # (Auto) (0.00-0.30) K/mcL Immature Gran # (0.00-0.05) K/mcl Absolute Neutrophils (1.80-8.00) K/mcL POC VBG pH 7.04 L* (7.32-7.42) POC VBG pCO2 at Temp 17.7 L* (41-51) POC VBG pO2 36 (25-40) POC VBG HCO3 4.8 L* (24-28) POC VBG Total CO2 5.0 L (25-29) POC Venous O2 Sat 47.0 (40-70) POC VBG Base Excess -26.0 L (-2-2) VBG Lactic Acid 1.8 (0.5-2) POC Sodium 127 L (133-145) POC Potassium 5.6 H (3.3-5.1) POC Chloride 102 (96-108) POC Total CO2 7.0 L* (22-30) POC BUN 29 H (6-20) POC Creatinine 1.2 (0.6-1.2) POC Glucose > 700 H* (70-105) Hemoglobin A1c 11.0 H (4.0-6.0) % Hgb Estim Average Glucose 269 mg/dL POC WB Ioniz Calcium 1.15 L (1.16-1.32) Magnesium (1.6-2.5) mg/dL Total Bilirubin (0.1-1.0) mg/dL Direct Bilirubin (<0.3) mg/dL AST (<32) U/L ALT (<40) U/L Alkaline Phosphatase (39-117) U/L Total Protein (5.9-8.4) gm/dL Albumin (3.2-5.2) gm/dL Globulin (2.2-3.7) gm/dL Beta-Hydroxybutyrate (<0.27) mmol/L Discharge Plan Patient/Caregiver Discharge Instructions Pt seen by SENIOR GIS ANALYST/PA only: Yes Clinical Impression: DKA (diabetic ketoacidosis) Patient Disposition: Xfer As Inpt ([facility]) Discharge Date/Time: 10/13/22 21:56
[2022-10-13] MEDS ORDERED: INSULIN REGULAR, HUMAN 1 UNIT/0.01 ML UNIT IV ONE (18:48)
[2022-10-13 19:03] LABS: POC Blood Urea Nitrogen 29 (6-20); POC Calcium, Ionized 1.15 (1.16-1.32); POC Chloride 102 (96-108); POC Creatinine 1.2 (0.6-1.2); POC Glucose, Random > 700 (70-105); POC Potassium 5.6 (3.3-5.1); POC Sodium 127 (133-145)
[2022-10-13 19:25] LABS: Basophils # (Auto) 0.04 K/mcL (0.00-0.30); Basophils % (Auto) 0.7 % (0.0-2.0); Eosinophils # (Auto) 0.02 K/mcL (0.00-0.70); Eosinophils % (Auto) 0.4 % (0.0-7.0); Hematocrit 43.5 % (34.1-44.9); Hemoglobin 13.3 g/dL (11.2-15.7); Lymphocytes # (Auto) 1.36 K/mcL (1.50-4.80); Lymphocytes % (Auto) 24.9 % (15.5-49.0); Mean Cell Volume 96.2 fL (80.0-100.0); Mean Corpuscular HGB Conc 30.6 g/dL (31.0-36.0); Mean Platelet Volume 11.2 fL (8.8-12.5); Monocytes # (Auto) 0.23 K/mcL (0.10-0.90); Monocytes % (Auto) 4.2 % (1.0-12.0); Neutrophils % (Auto) 68.7 % (38.0-78.0); Platelet Count 220 K/mcL (140-440); RBC 4.52 M/mcL (3.59-5.38); Red Cell Distribution Width 13.9 % (11.5-14.5); WBC 5.5 K/mcL (4.5-11.0)
[2022-10-13 19:43] LABS: ALT/SGPT 18 U/L (<40); AST/SGOT 17 U/L (<32); Alkaline Phosphatase 167 U/L (39-117); Bilirubin,Direct 0.2 mg/dL (<0.3); Bilirubin,Total 0.4 mg/dL (0.1-1.0); Globulin 2.9 gm/dL (2.2-3.7)
--- NOTE | 2022-10-13 20:49 | Internal Med History&Physical ---
HPI History of Present Illness Patient information: Note initiated : 10/13/22 at 8:47 pm Service Date, if different from initiated Date: [] Patient: Tennille Castillo a 77 y/o F admitted on for Pain all over, "HI" blood glucose.. Chief Complaint: [high blood glucose, weakness] Chief complaint: high blood glucose, weakness History of present illness: Ms. Castillo is a 77 year old F history of type 2 diabetes mellitus, essential hypertensions, dyslipidemia, hypothyroidism, presenting with 1 week history of weakness, dizziness, and suprapubic abdominal pain. Patient stated that she is not compliant to her insulin therapy for approximately about a week because she cannot find the box. Today when she checked her blood glucose with glucometer it read above 700. She is complaining of sharp constant severe bilateral suprap ubic abdominal pain. She denies GI upset such as diarrhea or nausea or vomiting. She is coming of weakness and dizziness. Upon arrival to the ED, multiple repeat blood glucose levels are indicated acute blood glucose above 700. VBG showing pH 7.04, bicarb 4.8, and calculated anion gap of 20. Serum potassium level 5.6. Serum beta hydroxybutyrate 11.0, elevated. Admission request is called for diabetic ketoacidosis associated with uncontrolled type 2 diabetes mellitus due to medications noncompliance. Constitutional Constitutional: Present weakness; Absent chills, excessive sweating, fatigue or fever(s) Additional comments: dizziness EENT Eyes: Absent blurry vision, change in vision, loss of vision or other visual disturbances Ears: Absent decreased hearing or tinnitus Nose, mouth and throat: Absent abnormal hearing, dry mouth, headache(s), nasal congestion or sore throat Cardiovascular Cardiovascular: Absent chest pain, chest pain at rest, edema, irregular heart rhythm or palpatations Respiratory Respiratory: Absent cough, dyspnea or wheezing Gastrointestinal Gastrointestinal: Present abdominal pain; Absent constipation, diarrhea, nausea or vomiting Musculoskeletal Musculoskeletal: Absent back pain, deformity, limited range of motion, muscle cramps, muscle weakness or numbness Integumentary Integumentary: Absent lesions, rash or wounds Neurological Neurological: Absent focal weakness, headache(s) or numbness Psychiatric Psychiatric: Absent anxiety, depression or hallucinations PFSH PFSH All Active Problems (Updated 10/13/22 @ 20:13 by PAULINA Chatman) Hypokalemia (Acute) Left renal mass (Acute) Transaminitis (Acute) Septic shock (Acute) Clinical sepsis (Acute) DKA, type 2 (Acute) Essential hypertension (Acute) Mixed dyslipidemia (Acute) Hyperkalemia (Acute) Compression fracture of body of thoracic vertebra (Acute) Pain in rib (Acute) Hyperglycemia due to type 2 diabetes mellitus (Acute) Chronic pain syndrome (Acute) DKA, type 2 (Acute) Hypoglycemia (Acute) DKA (diabetic ketoacidosis) (Acute) Acute hyponatremia (Acute) Acute hyperkalemia (Acute) Acidosis, lactic (Acute) Metabolic acidosis (Acute) Blood in urine (Chronic) Diabetic keto-acidosis (Chronic) Pseudohyponatremia (Chronic) DKA (diabetic ketoacidosis) (Chronic) Hypomagnesemia (Chronic) Generalized weakness (Chronic) Acute dehydration (Chronic) Diabetic ketosis (Chronic) Acute dyspnea (Chronic) Obstructive sleep apnea (Chronic) DKA (diabetic ketoacidosis) (Chronic) Vulvovaginitis due to yeast (Chronic) Sleepwalking (Chronic) REM sleep behavior disorder (Chronic) Hypersomnia (Chronic) Snoring (Chronic) Tremor (Chronic) Neurofibromatosis 2 (Chronic) Trigger finger (Chronic) Sleep disturbance (Chronic) Arthralgia (Chronic) Pancreatitis (Chronic) Macular degeneration (Chronic) Hepatitis A (Chronic) Glaucoma (Chronic) Fibromyalgia (Chronic) DDD (degenerative disc disease), cervical (Chronic) Diabetic retinopathy (Chronic) Opioid dependence (Chronic) Stress (Chronic) Hard of hearing (Chronic) Multiple environmental allergies (Chronic) Fracture of lumbar spine (Chronic) Compression fracture of lumbosacral spine (Chronic) Abdominal pain (Chronic) Chronic pancreatitis (Chronic) Liver mass (Chronic) Cirrhosis of liver (Chronic) Constipation (Chronic) Neuropathy (Chronic) Chronic pain (Chronic) Essential tremor (Chronic) Bimalleolar ankle fracture (Chronic) Chronic bronchitis with acute exacerbation (Chronic) Dehydration (Chronic) Epistaxis (Chronic) Hypoxia (Chronic) Anterior epistaxis (Chronic) Candidiasis of mouth (Chronic) DKA (diabetic ketoacidosis) (Chronic) Conjunctivitis (Chronic) Bronchitis (Chronic) Dehiscence of closure of skin (Chronic) Anemia (Chronic) Elevated liver enzymes (Chronic) 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) Radiculopathy, sacral and sacrococcygeal region (Chronic) Radiculopathy, lumbosacral region (Chronic) Insomnia (Chronic) Levator syndrome (Chronic) Sacrococcygeal pain (Chronic) History of surgery (Chronic) Hypothyroidism (Chronic) Chronic bronchitis (Chronic) 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) Depression (Chronic) Anxiety (Chronic) Hypertension (Chronic) Osteoporosis (Chronic) Rectal pain (Chronic) Low back pain (Chronic) Pain in thoracic spine (Chronic) Age-related osteoporosis with current pathological fracture, vertebra(e), init ial encounter for fracture (Chronic) Medical History Abdominal pain Acute exacerbation of chronic obstructive airways disease Age-related osteoporosis with current pathological fracture, vertebra(e), initial encounter for fracture Anemia Anterior epistaxis Anxiety Arthralgia Bilateral primary osteoarthritis of hip Bimalleolar ankle fracture Blood in urine Bronchitis Candidiasis of mouth Chronic bronchitis with acute exacerbation Chronic pain Chronic pancreatitis Cirrhosis of liver Compression fracture of lumbosacral spine Conjunctivitis Constipation DDD (degenerative disc disease), cervical Dehiscence of closure of skin Dehydration Depression Diabetic retinopathy DKA (diabetic ketoacidosis) Elevated liver enzymes Epistaxis Essential tremor Fibromyalgia Fracture of lumbar spine Glaucoma Hard of hearing Hepatitis A Hyperglycemia due to type 2 diabetes mellitus Hypersomnia Hypertension Hypothyroidism Hypoxia Insomnia Levator syndrome Lipomatosis Liver mass Low back pain Macular degeneration Multiple environmental allergies Neurofibromatosis 2 Neuropathy Obstructive sleep apnea Opioid dependence Osteoporosis Pain in thoracic spine Pancreatitis Radiculopathy, lumbosacral region Radiculopathy, sacral and sacrococcygeal region Rectal pain REM sleep behavior disorder Sacrococcygeal pain Sleep disturbance Sleepwalking Snoring Stress Tremor Trigger finger Surgical History History of appendectomy (~1969) History of arthroplasty of right ankle (~2017) History of cataract surgery (~2003) History of cholecystectomy History of colonoscopy (~06/26/18) History of decompression of median nerve (~2003) History of dilation and curettage History of eye surgery (~2005) Glaucoma History of hand surgery (~2003) Release of trigger finger, right History of left breast biopsy (~2005) History of oophorectomy History of surgery Vertebroplasty T12 w/sed 09/28/19 History of surgery retinopathy laser Stereotactic destruction of lesion using gamma radiation-2004 History of surgery on wrist History of tonsillectomy and adenoidectomy (~1969) Family History Mother Heart disease Fibromyalgia Father Malignant melanoma Malignant tumor of prostate Leukemia Social History (Updated 02/22/22 @ 15:40 by Gi Vernon) lives independently: Yes marital status: education level: college occupational status: retired pets and animals: No other: 2 children physical activity: none smoking status: Never smoker alcohol intake frequency: does not drink substance use type: does not use seatbelt use: always working smoke detector in home: Yes carbon monox detector in home: Yes MEDS/ALLERGIES Home Medications and Allergies Home Medications Medication Instructions Recorded Confirmed Type [id number] 40,000 cap PO TID 06/01/21 08/21/22 History 40,000-126,000-168,000 unit capsule, delay rel (Zenpep) multivit [id number] 186 1 tab PO DAILY 07/15/21 08/21/22 History [Hair, Skin and Nails Advanced] trazodone 100 mg tablet 100 mg PO HSP PRN insomnia 08/22/21 08/21/22 History acyclovir 400 mg tablet 1 tab PO BID 09/21/21 08/21/22 History gabapentin 800 mg tablet 1 tab PO TID 09/21/21 08/21/22 History cholecalciferol (vitamin D3) 50 50 mcg PO DAILY 12/04/21 08/21/22 History mcg (2,000 unit) capsule (Vitamin D3) zinc 50 mg tablet 50 mg PO DAILY 12/04/21 08/21/22 History hyoscyamine sulfate 0.125 mg 0.125 mg PO Q6H PRN Abdominal 02/19/22 08/21/22 Rx sublingual tablet Discomfort #20 tabs insulin aspart U-100 100 unit/mL See Protocol subcut ACHS 04/23/22 08/21/22 History (3 mL) subcutaneous pen (Novolog FlexPen U-100 Insulin aspart) propranolol 10 mg tablet 1 tab PO TID 04/23/22 08/21/22 History atorvastatin 40 mg tablet 1 tab PO QDAY 05/06/22 08/21/22 History duloxetine 30 mg capsule,delayed 1 cap PO QDAY 05/06/22 08/21/22 History release methocarbamol 500 mg tablet 500 mg PO TIDP PRN Muscle Spasm 05/08/22 08/21/22 Rx #30 tabs ibuprofen 200 mg tablet 200 mg PO Q6H PRN Pain 08/15/22 08/21/22 History blood sugar diagnostic (True 08/21/22 08/21/22 History Metrix Glucose Test Strip) levothyroxine 125 mcg tablet 1 tab PO QAM 08/21/22 08/21/22 History insulin degludec 100 unit/mL 20 unit (0.2 mL) subcut BID #10 mL 08/29/22 Rx subcutaneous solution (Tresiba U-100 Insulin) Allergies Allergy/AdvReac Type Severity Reaction Status Date / Time cephalexin [From Keflex] Allergy Intermediate Swelling Verified 08/15/22 20:56 lidocaine Allergy Intermediate Blister Verified 08/15/22 20:56 Penicillins Allergy Mild Rash Verified 08/15/22 20:56 Anistreplase [From Eminase] Allergy Unknown UNKNOWN Verified 08/15/22 20:56 fenugreek Allergy Unknown UNKNOWN Verified 08/15/22 20:56 codeine AdvReac Mild Itching Verified 08/15/22 20:56 Erythromycin Base AdvReac Mild Itching Verified 08/15/22 20:56 Nortriptyline AdvReac Mild Nausea Verified 08/15/22 20:56 promethazine AdvReac Mild Fainting Verified 08/15/22 20:56 trulicity AdvReac Intermediate Other Uncoded 12/04/21 06:40 EXAM Constitutional Vitals: Temp Pulse Resp BP Pulse Ox O2 Del Method 35.8 C L 91 H 18 123/43 100 Room Air 10/13/22 18:30 10/13/22 20:03 10/13/22 20:03 10/13/22 20:03 10/13/22 20:03 10/13/22 19:31 General appearance: cooperative, disheveled and mild distress Head Head exam: Present atraumatic and normocephalic Eye Eye exam: Present EOMI and PERRL ENT ENT exam: Present mucous membranes moist, normal exam and normal external ear exam Neck Neck exam: Present normal inspection; Absent lymphadenopathy, tenderness or thyromegaly Respiratory Respiratory exam: Absent accessory muscle use, respiratory distress or wheezes Cardiovascular Cardiovascular exam: Present normal rate and rhythm; Absent JVD GI/Abdominal GI/Abdominal exam: Present normal bowel sounds, soft and tenderness; Absent organomegaly Extremities Exam Extremities exam: Present full ROM, normal capillary refill and normal inspection; Absent tenderness Neurological Exam Neurological exam: Present alert, CN II-XII intact and oriented X3; Absent motor sensory deficit Psychiatric Psychiatric exam: Present normal affect and normal mood; Absent anxious or depressed Skin Skin exam: Present dry and intact DATA Data Completed and Pending Labs: Labs from last 24 hours 10/13/22 10/13/22 10/13/22 19:00 18:55 18:52 WBC RBC Hgb Hct POC Hct 44.0 MCV MCH MCHC RDW Plt Count MPV Immature Gran % (Auto) Neut % (Auto) Lymph % (Auto) [place] % (Auto) Eos % (Auto) Baso % (Auto) Lymph # (Auto) [place] # (Auto) Eos # (Auto) Baso # (Auto) Immature Gran # Absolute Neutrophils POC VBG pH 7.04 L* POC VBG pCO2 at Temp 17.7 L* POC VBG pO2 36 POC VBG HCO3 4.8 L* POC VBG Total CO2 5.0 L POC Venous O2 Sat 47.0 POC VBG Base Excess -26.0 L VBG Lactic Acid 1.8 POC Sodium 127 L POC Potassium 5.6 H POC Chloride 102 POC Total CO2 7.0 L* POC BUN 29 H POC Creatinine 1.2 POC Glucose > 700 H* POC WB Ioniz Calcium 1.15 L Magnesium 2.2 Total Bilirubin Direct Bilirubin AST ALT Alkaline Phosphatase Total Protein Albumin Globulin Beta-Hydroxybutyrate 10/13/22 10/13/22 18:52 18:52 WBC 5.5 RBC 4.52 Hgb 13.3 Hct 43.5 POC Hct MCV 96.2 MCH 29.4 MCHC 30.6 L RDW 13.9 Plt Count 220 MPV 11.2 Immature Gran % (Auto) 1.1 H Neut % (Auto) 68.7 Lymph % (Auto) 24.9 [place] % (Auto) 4.2 Eos % (Auto) 0.4 Baso % (Auto) 0.7 Lymph # (Auto) 1.36 L [place] # (Auto) 0.23 Eos # (Auto) 0.02 Baso # (Auto) 0.04 Immature Gran # 0.06 H Absolute Neutrophils 3.76 POC VBG pH POC VBG pCO2 at Temp POC VBG pO2 POC VBG HCO3 POC VBG Total CO2 POC Venous O2 Sat POC VBG Base Excess VBG Lactic Acid POC Sodium POC Potassium POC Chloride POC Total CO2 POC BUN POC Creatinine POC Glucose POC WB Ioniz Calcium Magnesium Total Bilirubin 0.4 Direct Bilirubin 0.2 AST 17 ALT 18 Alkaline Phosphatase 167 H Total Protein 6.9 Albumin 4.0 Globulin 2.9 Beta-Hydroxybutyrate 11.00 H A/P Assessment and plan (1) DKA, type 2: Status: Acute (2) Hyperkalemia: Status: Acute (3) Essential hypertension: Status: Acute (4) Mixed dyslipidemia: Status: Acute (5) Hypothyroidism: Status: Chronic Narrative A/P Narrative: 1. DKA type 2 due to medication non compliant: Admit to inpatient ICU HgA1c Accu Check q1hr Chemistry q6hr VBG q6hr Insulin drip, NPO while the insulin drip is running NS@125cc/hr when anion gap is elevated (>14) and when glucose is >=200 D5NS@125cc/hr when anion gap is elevated (>14) and when glucose is <200 Diabetes education 2. Hyperkalemia: Insulin drip will help drive down serum potassium level Chemistry q6hr to trend serum potassium level When serum potassium level normalized, will add KCl into the IV fluid 3. Essential HTN: Currently normotensive Propranolol 4. Mixed dyslipidemia: Continue statin therapy 5. Hypothyroidism: Continue oral thyroid replacement therapy GI ppx: not indicated DVT ppx: Lovenox Code status: Full Prognosis: extremely guarded Disposition: inpatient ICU Critical Care Time: 60min Time Spent With Patient Time: Total time spent is greater than 50% in coordination of care (as documented) at patient's floor/unit and/or counseling patient: Initial: Total time with patient: 55 - 74 minutes Critical Care Time: Yes Total Critical Care Time: 60
[2022-10-13] MEDS: INSULIN REGULAR, HUMAN 50 UNIT in 0.9 % SODIUM CHLORIDE 99.5 ML IV SCH (20:55)
[2022-10-13] MEDS ORDERED: NALOXONE HCL 0.4 MG/ML VIAL IV PRN (21:58)
[2022-10-13] MEDS ORDERED: IPRATROPIUM/ALBUTEROL 3 ML AMPUL.NEB NEB PRN (21:58)
[2022-10-13] MEDS ORDERED: ACETAMINOPHEN 325 MG TABLET PO PRN (21:58)
[2022-10-13] MEDS ORDERED: oxyCODONE HCL 5 MG TABLET PO ONE (22:07)
[2022-10-13] MEDS ORDERED: morphine 4 MG/ML VIAL ONE (22:08)
[2022-10-13] MEDS: morphine 4 MG/ML VIAL IV PRN (22:09)
[2022-10-13] MEDS: oxyCODONE HCL 5 MG TABLET PO PRN (22:09)
[2022-10-13] MEDS: 0.9 % SODIUM CHLORIDE 10 ML SYRINGE IV SCH (22:42)
[2022-10-13] MEDS: 0.9 % SODIUM CHLORIDE 1,000 ML IV SCH (22:42)
[2022-10-13] MEDS: DEXTROSE 5%-NS 1,000 ML IV SCH (22:43)
[2022-10-13] MEDS: DOCUSATE SODIUM 100 MG CAPSULE PO SCH (22:45)
[2022-10-13] MEDS ORDERED: traZODone HCL 100 MG TABLET PO PRN (23:03)
[2022-10-13] MEDS ORDERED: traZODone HCL 50 MG TABLET ONE (23:21)
[2022-10-13] MEDS ORDERED: INSULIN REGULAR, HUMAN 1 UNIT/0.01 ML UNIT ONE (23:28)
[2022-10-13] MEDS: INSULIN REGULAR, HUMAN 1 UNIT/0.01 ML UNIT IV PRN (23:31)
[2022-10-14] MEDS: INSULIN REGULAR, HUMAN 1 UNIT/0.01 ML UNIT IV PRN (00:10)
[2022-10-14] MEDS ORDERED: INSULIN REGULAR, HUMAN 1 UNIT/0.01 ML UNIT ONE ×2 (00:11→02:37)
[2022-10-14] MEDS ORDERED: morphine 4 MG/ML VIAL ONE (01:13)
[2022-10-14] MEDS: morphine 4 MG/ML VIAL IV PRN ×2 (01:15→22:18)
[2022-10-14 01:16] LABS: ABG Methemoglobin 0.3 % (0.4-1.5); Total Hemoglobin 15.4 gm/Dl (12.0-15.0); VBG Base Excess -20 (-2-3); VBG HCO3 7.5 mmol/L (24.0-28.0); VBG PCO2 23.1 mmHg (41.0-51.0); VBG PH 7.13 U (7.32-7.42); VBG PO2 64.6 mmHg (25.0-40.0); VBG Total CO2 8.3 mmol/L (25.0-29.0)
[2022-10-14 01:51] LABS: Blood Urea Nitrogen 28 mg/dL (8-23); Calcium 8.9 mg/dL (8.6-10.4); Carbon Dioxide 6 mmol/L (22-30); Chloride 102 mmol/L (96-108); Glomerular Filtration Rate 44; Glucose 407 mg/dL (70-105)
[2022-10-14] MEDS ORDERED: oxyCODONE HCL 5 MG TABLET PO ONE (02:30)
[2022-10-14] MEDS: oxyCODONE HCL 5 MG TABLET PO PRN ×4 (02:30→20:13)
[2022-10-14] MEDS: INSULIN REGULAR, HUMAN 50 UNIT in 0.9 % SODIUM CHLORIDE 99.5 ML IV SCH (02:41)
[2022-10-14] MEDS: DEXTROSE 5%-NS 1,000 ML IV SCH ×4 (03:07→20:14)
[2022-10-14] MEDS: 0.9 % SODIUM CHLORIDE 1,000 ML IV SCH ×3 (05:13→20:14)
[2022-10-14] MEDS ORDERED: DEXTROSE 50% 50 ML SYRINGE IV ONE (06:05)
[2022-10-14] MEDS ORDERED: DEXTROSE 50% 50 ML VIAL IV PRN ×2 (06:06→10:33)
[2022-10-14] MEDS: 0.9 % SODIUM CHLORIDE 10 ML SYRINGE IV SCH ×3 (06:09→20:14)
[2022-10-14 07:45] LABS: Basophils # (Auto) 0.04 K/mcL (0.00-0.30); Basophils % (Auto) 0.3 % (0.0-2.0); Eosinophils % (Auto) 2.5 % (0.0-7.0); Hematocrit 42.3 % (34.1-44.9); Hemoglobin 13.2 g/dL (11.2-15.7); Lymphocytes # (Auto) 3.35 K/mcL (1.50-4.80); Lymphocytes % (Auto) 27.8 % (15.5-49.0); Mean Cell Volume 94.2 fL (80.0-100.0); Mean Corpuscular HGB Conc 31.2 g/dL (31.0-36.0); Mean Platelet Volume 10.8 fL (8.8-12.5); Monocytes # (Auto) 1.12 K/mcL (0.10-0.90); Monocytes % (Auto) 9.3 % (1.0-12.0); Neutrophils % (Auto) 59.8 % (38.0-78.0); Platelet Count 156 K/mcL (140-440); RBC 4.49 M/mcL (3.59-5.38); Red Cell Distribution Width 13.8 % (11.5-14.5); WBC 12.1 K/mcL (4.5-11.0)
[2022-10-14 08:05] LABS: Blood Urea Nitrogen 24 mg/dL (8-23); Calcium 8.4 mg/dL (8.6-10.4); Carbon Dioxide 15 mmol/L (22-30); Chloride 106 mmol/L (96-108); Glomerular Filtration Rate 54; Glucose 152 mg/dL (70-105)
[2022-10-14] MEDS: DOCUSATE SODIUM 100 MG CAPSULE PO SCH ×2 (08:26→20:13)
[2022-10-14] MEDS: SENNOSIDES 1 TABLET PO SCH (08:27)
[2022-10-14] MEDS: ENOXAPARIN 40 MG/0.4 ML SYRINGE SQ SCH (09:09)
[2022-10-14] MEDS ORDERED: INSULIN GLARGINE, HUMAN 1 UNIT/0.01 ML SQ ONE (09:22)
[2022-10-14] MEDS ORDERED: DEXTROSE 31 GM ORAL.SUSP PO PRN (10:33)
[2022-10-14] MEDS ORDERED: POTASSIUM CHLORIDE 20 MEQ TABLET PO ONE (10:52)
--- NOTE | 2022-10-14 11:00 | Internal Med Progress Note ---
SUBJECTIVE Subjective Patient information: Note initiated : 10/14/22 at 10:53 am Service Date, if different from initiated Date: [] Patient: Tennille Castillo a 77 y/o F admitted on 10/13/22 for Pain all over, "HI" blood glucose.. Chief Complaint: [] Interval history: Ms. Castillo is a 77 year old F history of type 2 diabetes mellitus, essential hypertensions, dyslipidemia, hypothyroidism, presenting with 1 week history of weakness, dizziness, and suprapubic abdominal pain. Patient stated that she is not compliant to her insulin therapy for approximately about a week because she cannot find the box. Today when she checked her blood glucose with glucometer it read above 700. She is complaining of sharp constant severe bilateral suprapubic abdominal pain. She denies GI upset such as diarrhea or nausea or vomiting. She is coming of weakness and dizziness. Upon arrival to the ED, multiple repeat blood glucose levels are indicated acute blood glucose above 700. VBG showing pH 7.04, bicarb 4.8, and calculated anion gap of 20. Serum potassium level 5.6. Serum beta hydroxybutyrate 11.0, elevated. Admission request is called for diabetic ketoacidosis associated with uncontrolled type 2 diabetes mellitus due to medications noncompliance. 10/14: Blood glucose 152, serum bicarb 15, anion gap 13. Currently still have insulin drip running at 1 unit/hr, and IV fluid D5NS@125cc/hr running as well. Soft blood pressure latest set 99/41mmHg. Patient is sleeping. Stays in inpatient ICU. Transition to SQ insulin with insulin Lantus 20 unit once. Keep insulin drip and IV fluid running for 2 more hours. Then will switch off both insulin drip and IV fluid. Accu Check AC HS and Insulin Lispro SSI AC HS. Will offer diabetic diet. d/c q6h BMP/VBG. Potassium chloride 40 mEq PO once. Pending diabetes education. Pending physical therapy evaluation and treatment. Constitutional Vitals: Vital Signs Temp Pulse Resp BP Pulse Ox O2 Del Method 36.4 C 76 11 L 99/41 95 Room Air 10/14/22 08:13 10/14/22 10:01 10/14/22 10:01 10/14/22 10:01 10/14/22 10:10/14/22 07:17 Period Temp Pulse Resp BP Sys/Rosario Pulse Ox O2 Del Method O2 Flow Rate Last 24 Hr 35.8 C-36.7 C 72-93 9-26 92-137/30-59 95-100 Room Air-Room Air Intake and Output 10/13/22 10/14/22 10/14/22 19:59 03:59 11:59 Intake Total 1000 1648 317 Output Total 0 Balance 1000 1648 317 Weight 61.689 kg 62.851 kg Intake & Output: Intake & Output 10/13/22 10/14/22 10/14/22 19:59 03:59 11:59 Intake Total 1000 1648 317 Output Total 0 Balance 1000 1648 317 Weight 61.689 kg 62.851 kg Intake: IV 1000 1648 67 Sodium Chloride 0.9% 1,000 ml @ 1000 1554 125 mls/hr IV .Q8H PEG Rx#: [id number] HumuLIN R 50 UNIT In Sodium 94 67 Chloride 0.9% 99.5 ml @ 6 UNIT/ HR 12 mls/hr IV DUR PEG Rx#: [id number] Oral 0 250 Output: Void Amount 0 Exam: sleeping Head Head exam: Present atraumatic and normal inspection Eye Eye exam: Present normal appearance ENT ENT exam: Present mucous membranes moist, normal exam and normal external ear exam Neck Neck exam: Present normal inspection Respiratory Respiratory exam: Present normal respiratory exam Cardiovascular Cardiovascular exam: Present normal rate and rhythm GI/Abdominal GI/Abdominal exam: Present normal bowel sounds Back Exam Back exam: Present normal inspection Neurological Exam Additional comments: Sleeping Skin Skin exam: Present intact and warm OBJ DATA Labs 10/14/22 05:24 10/14/22 06:48 Labs: Abnormal Lab Results 10/14/22 10/14/22 10/14/22 09:31 06:48 05:24 WBC 12.1 H MCHC Immature Gran % (Auto) Lymph # (Auto) [place] # (Auto) 1.12 H Immature Gran # ABG Methemoglobin VBG pH POC VBG pH 7.30 L VBG pCO2 POC VBG pCO2 at Temp 29.9 L VBG pO2 POC VBG pO2 112 H VBG HCO3 POC VBG HCO3 14.6 L VBG Total CO2 POC VBG Total CO2 15.0 L VBG O2 Saturation POC Venous O2 Sat 98.0 H VBG Base Excess POC VBG Base Excess -12.0 L Carboxyhemoglobin Total Hemoglobin POC Sodium Sodium POC Potassium Carbon Dioxide 15 L POC Total CO2 Anion Gap POC BUN BUN 24 H Creatinine Glucose 152 H POC Glucose Hemoglobin A1c Calcium 8.4 L POC WB Ioniz Calcium Alkaline Phosphatase Beta-Hydroxybutyrate 10/14/22 10/14/22 10/13/22 00:49 00:49 19:00 WBC MCHC Immature Gran % (Auto) Lymph # (Auto) [place] # (Auto) Immature Gran # ABG Methemoglobin 0.3 L VBG pH 7.13 L* POC VBG pH 7.04 L* VBG pCO2 23.1 L POC VBG pCO2 at Temp 17.7 L* VBG pO2 64.6 H POC VBG pO2 VBG HCO3 7.5 L* POC VBG HCO3 4.8 L* VBG Total CO2 8.3 L* POC VBG Total CO2 5.0 L VBG O2 Saturation 85.0 H POC Venous O2 Sat VBG Base Excess -20 L POC VBG Base Excess -26.0 L Carboxyhemoglobin 6.7 H Total Hemoglobin 15.4 H POC Sodium Sodium 131 L POC Potassium Carbon Dioxide 6 L* POC Total CO2 Anion Gap 23.0 H POC BUN BUN 28 H Creatinine 1.2 H Glucose 407 H POC Glucose Hemoglobin A1c Calcium POC WB Ioniz Calcium Alkaline Phosphatase Beta-Hydroxybutyrate 10/13/22 10/13/22 10/13/22 18:55 18:52 18:52 WBC MCHC Immature Gran % (Auto) Lymph # (Auto) [place] # (Auto) Immature Gran # ABG Methemoglobin VBG pH POC VBG pH VBG pCO2 POC VBG pCO2 at Temp VBG pO2 POC VBG pO2 VBG HCO3 POC VBG HCO3 VBG Total CO2 POC VBG Total CO2 VBG O2 Saturation POC Venous O2 Sat VBG Base Excess POC VBG Base Excess Carboxyhemoglobin Total Hemoglobin POC Sodium 127 L Sodium POC Potassium 5.6 H Carbon Dioxide POC Total CO2 7.0 L* Anion Gap POC BUN 29 H BUN Creatinine Glucose POC Glucose > 700 H* Hemoglobin A1c 11.0 H Calcium POC WB Ioniz Calcium 1.15 L Alkaline Phosphatase 167 H Beta-Hydroxybutyrate 11.00 H 10/13/22 18:52 WBC MCHC 30.6 L Immature Gran % (Auto) 1.1 H Lymph # (Auto) 1.36 L [place] # (Auto) Immature Gran # 0.06 H ABG Methemoglobin VBG pH POC VBG pH VBG pCO2 POC VBG pCO2 at Temp VBG pO2 POC VBG pO2 VBG HCO3 POC VBG HCO3 VBG Total CO2 POC VBG Total CO2 VBG O2 Saturation POC Venous O2 Sat VBG Base Excess POC VBG Base Excess Carboxyhemoglobin Total Hemoglobin POC Sodium Sodium POC Potassium Carbon Dioxide POC Total CO2 Anion Gap POC BUN BUN Creatinine Glucose POC Glucose Hemoglobin A1c Calcium POC WB Ioniz Calcium Alkaline Phosphatase Beta-Hydroxybutyrate Meds: Medications Acetaminophen (Acetaminophen 325 Mg Tablet) 650 mg PO Q4-6HP PRN; Protocol PRN Reason: Per Pain Protocol/Fever > 101 Acyclovir (Acyclovir 400 Mg Tablet) mg PO BID PEG; Protocol Albuterol/Ipratropium (Ipratropium/Albuterol 3 Ml Ampul.Neb) 3 ml NEB Q4HRT PRN PRN Reason: Wheezing Dextrose (Dextrose 50% 50 Ml Vial) 25 ml IV PRN PRN PRN Reason: hypoglycemia Last Admin: 10/14/22 06:11 Dose: 25 ml Dextrose (Dextrose 50% 50 Ml Vial) 0 ml IV UD PRN PRN Reason: Per Sliding Scale Diagnostic Test (Pha) (Accu-Chek 1 Each Strip) 1 each FS ACHS [facility] Docusate Sodium (Docusate Sodium 100 Mg Capsule) 100 mg PO BID [facility] Last Admin: 10/14/22 08:26 Dose: Not Given Enoxaparin Sodium (Enoxaparin 40 Mg/0.4 Ml Syringe) 40 mg SQ DAILY [facility] Last Admin: 10/14/22 09:09 Dose: 40 mg Glucose (Dextrose 31 Gm Oral.Susp) 15 gm PO PRN PRN PRN Reason: Hypoglycemia Insulin Human Regular 50 unit/ (Sodium Chloride) 100 mls @ 12 mls/hr IV DUR [facility]; Protocol Last Titration: 10/14/22 08:03 Dose: 1 unit/hr, 2 mls/hr Dextrose/Sodium Chloride (Dextrose 5%-Ns Iv Solution) 1,000 mls @ 125 mls/hr IV .Q8H [facility] Last Admin: 10/14/22 05:16 Dose: Not Given Sodium Chloride (Sodium Chloride 0.9%) 1,000 mls @ 125 mls/hr IV .Q8H [facility] Last Admin: 10/14/22 05:13 Dose: Not Given Insulin Human Lispro (Insulin Lispro 1 Unit/0.01 Ml Unit) 0 unit SQ ACHS PEG; Protocol Levothyroxine Sodium (Levothyroxine 125 Mcg Tablet) 125 mcg PO QAMAC PEG Methocarbamol (Methocarbamol 500 Mg Tablet) 500 mg PO TIDP PRN PRN Reason: Muscle Spasm Morphine Sulfate (Morphine 4 Mg/Ml Vial) 4 mg IV Q2HP PRN; Protocol PRN Reason: Per Pain Protocol Last Admin: 10/14/22 01:15 Dose: 4 mg Naloxone HCl (Naloxone Hcl 0.4 Mg/Ml Vial) 0.1 mg IV Q2MIN PRN PRN Reason: Opiate Reversal Non-Formulary Medication (Insulin Degludec [Tresiba U-100 Insulin]) 20 unit SUB-Q BID [facility] Non-Formulary Medication (Ketoconazole) 1 applic TOPICAL DAILY [facility] Non-Formulary Medication (Cholecalciferol (Vitamin D3) [Vitamin D3]) 50 mcg PO DAILY [facility] Non-Formulary Medication (Multivit Wfo-Pobw-Dp-Herb 186) 1 tab PO DAILY [facility] Ondansetron HCl (Ondansetron 4 Mg/2 Ml Vial) 4 mg IV Q4-6HP PRN; Protocol PRN Reason: Nausea And Vomiting Oxycodone HCl (Oxycodone Hcl 5 Mg Tablet) 5 mg PO Q4-6HP PRN; Protocol PRN Reason: Per Pain Protocol Last Admin: 10/14/22 02:30 Dose: 5 mg Senna (Sennosides 1 Tablet) 1 tab PO DAILY [facility] Last Admin: 10/14/22 08:27 Dose: Not Given Sodium Chloride (0.9 % Sodium Chloride 10 Ml Syringe) 10 ml IV Q8 [facility] Last Admin: 10/14/22 06:09 Dose: Not Given Trazodone HCl (Trazodone Hcl 100 Mg Tablet) 100 mg PO HS PRN PRN Reason: Insomnia Last Admin: 10/13/22 23:32 Dose: 100 mg Trazodone HCl (Trazodone Hcl 100 Mg Tablet) 100 mg PO HSP PRN PRN Reason: insomnia ABG Interpretation ABG results: 10/14/22 00:49 ABG Methemoglobin 0.3 L VBG pH 7.13 L* VBG pCO2 23.1 L VBG pO2 64.6 H VBG HCO3 7.5 L* VBG Total CO2 8.3 L* VBG O2 Saturation 85.0 H VBG Base Excess -20 L A/P Assessment and plan (1) DKA, type 2: Status: Acute (2) Hyperkalemia: Status: Acute (3) Essential hypertension: Status: Acute (4) Mixed dyslipidemia: Status: Acute (5) Hypothyroidism: Status: Chronic Narrative A/P Narrative: 1. DKA type 2 due to medication non compliant: Stays in inpatient ICU HgA1c Transition to SQ insulin with insulin Lantus 20 unit once. Keep insulin drip and IV fluid running for 2 more hours. Then will switch off both insulin drip and IV fluid. Accu Check AC HS and Insulin Lispro SSI AC HS. Will offer diabetic diet. d/c q6h BMP/VBG. Pending diabetes education. Pending physical therapy evaluation and treatment. 2. Hyperkalemia: Potassium chloride 40 mEq PO once BMP daily to trend level Also check serum Mg level and replace as needed 3. Essential HTN: Currently normotensive Propranolol 4. Mixed dyslipidemia: Continue statin therapy 5. Hypothyroidism: Continue oral thyroid replacement therapy GI ppx: not indicated DVT ppx: Lovenox Code status: DNR Prognosis: guarded Disposition: inpatient ICU Critical Care Time: 45min Time Spent With Patient Time: Total time spent is greater than 50% in coordination of care (as documented) at patient's floor/unit and/or counseling patient: Critical Care Time: Yes Total Critical Care Time: 45 QUALITY VTE Deep Vein Thrombosis/Pulmonary Embolism Present on Admission: No
[2022-10-14] MEDS: INSULIN GLARGINE, HUMAN 1 UNIT/0.01 ML SQ SCH ×2 (11:17→20:13)
[2022-10-14] MEDS: INSULIN LISPRO 1 UNIT/0.01 ML UNIT SQ SCH ×5 (11:23→22:11)
[2022-10-14] MEDS: METHOCARBAMOL 500 MG TABLET PO PRN ×2 (12:03→20:13)
[2022-10-14] MEDS ORDERED: 0.9 % SODIUM CHLORIDE 1,000 ML IV ONE (14:14)
[2022-10-14] MEDS ORDERED: COLD 0.9 % SODIUM CHLORIDE 1,000 ML IV SCH (14:15)
[2022-10-14] MEDS: ACYCLOVIR 400 MG TABLET PO SCH (17:28)
[2022-10-15] MEDS: INSULIN LISPRO 1 UNIT/0.01 ML UNIT SQ SCH ×5 (00:33→20:31)
[2022-10-15] MEDS: oxyCODONE HCL 5 MG TABLET PO PRN ×2 (00:34→20:32)
[2022-10-15] MEDS: morphine 4 MG/ML VIAL IV PRN (00:37)
[2022-10-15] MEDS: DEXTROSE 5%-NS 1,000 ML IV SCH (05:29)
[2022-10-15] MEDS: 0.9 % SODIUM CHLORIDE 10 ML SYRINGE IV SCH ×3 (05:29→20:33)
[2022-10-15] MEDS: 0.9 % SODIUM CHLORIDE 1,000 ML IV SCH (05:29)
[2022-10-15 06:20] LABS: Basophils # (Auto) 0.03 K/mcL (0.00-0.30); Basophils % (Auto) 0.5 % (0.0-2.0); Eosinophils # (Auto) 0.21 K/mcL (0.00-0.70); Eosinophils % (Auto) 3.6 % (0.0-7.0); Hematocrit 39.6 % (34.1-44.9); Hemoglobin 12.2 g/dL (11.2-15.7); Lymphocytes # (Auto) 1.97 K/mcL (1.50-4.80); Lymphocytes % (Auto) 33.8 % (15.5-49.0); Mean Cell Volume 96.1 fL (80.0-100.0); Mean Corpuscular HGB Conc 30.8 g/dL (31.0-36.0); Mean Platelet Volume 11.4 fL (8.8-12.5); Monocytes # (Auto) 0.33 K/mcL (0.10-0.90); Monocytes % (Auto) 5.7 % (1.0-12.0); Neutrophils % (Auto) 56.2 % (38.0-78.0); Platelet Count 105 K/mcL (140-440); RBC 4.12 M/mcL (3.59-5.38); Red Cell Distribution Width 14.4 % (11.5-14.5); WBC 5.8 K/mcL (4.5-11.0)
[2022-10-15 06:54] LABS: Blood Urea Nitrogen 16 mg/dL (8-23); Calcium 8.5 mg/dL (8.6-10.4); Carbon Dioxide 14 mmol/L (22-30); Chloride 113 mmol/L (96-108); Glomerular Filtration Rate 71; Glucose 221 mg/dL (70-105)
[2022-10-15] MEDS: LEVOTHYROXINE 125 MCG TABLET PO SCH (07:09)
[2022-10-15] MEDS: INSULIN GLARGINE, HUMAN 1 UNIT/0.01 ML SQ SCH ×2 (07:34→20:31)
[2022-10-15] MEDS: SENNOSIDES 1 TABLET PO SCH (07:34)
[2022-10-15] MEDS: ACYCLOVIR 400 MG TABLET PO SCH ×2 (07:35→16:29)
[2022-10-15] MEDS: METHOCARBAMOL 500 MG TABLET PO PRN ×2 (07:35→20:32)
[2022-10-15] MEDS: ENOXAPARIN 40 MG/0.4 ML SYRINGE SQ SCH ×2 (07:59→08:14)
[2022-10-15] MEDS: MULTIVIT,THER IRON,CA,FA & MIN 1 TABLET PO SCH (07:59)
[2022-10-15] MEDS: VITAMIN D3 25 MCG TABLET PO SCH (07:59)
[2022-10-15] MEDS: DOCUSATE SODIUM 100 MG CAPSULE PO SCH ×2 (07:59→20:32)
--- NOTE | 2022-10-15 08:54 | Internal Med Progress Note ---
SUBJECTIVE Subjective Patient information: Note initiated : 10/15/22 at 8:49 am Service Date, if different from initiated Date: [] Patient: Tennille Castillo a 77 y/o F admitted on 10/13/22 for Pain all over, "HI" blood glucose.. Chief Complaint: [] Interval history: Ms. Castillo is a 77 year old F history of type 2 diabetes mellitus, essential hypertensions, dyslipidemia, hypothyroidism, presenting with 1 week history of weakness, dizziness, and suprapubic abdominal pain. Patient stated that she is not compliant to her insulin therapy for approximately about a week because she cannot find the box. Today when she checked her blood glucose with glucometer it read above 700. She is complaining of sharp constant severe bilateral suprapubic abdominal pain. She denies GI upset such as diarrhea or nausea or vomiting. She is coming of weakness and dizziness. Upon arrival to the ED, multiple repeat blood glucose levels are indicated acute blood glucose above 700. VBG showing pH 7.04, bicarb 4.8, and calculated anion gap of 20. Serum potassium level 5.6. Serum beta hydroxybutyrate 11.0, elevated. Admission request is called for diabetic ketoacidosis associated with uncontrolled type 2 diabetes mellitus due to medications noncompliance. 10/14: Blood glucose 152, serum bicarb 15, anion gap 13. Currently still have insulin drip running at 1 unit/hr, and IV fluid D5NS@125cc/hr running as well. Soft blood pressure latest set 99/41mmHg. Patient is sleeping. Stays in inpatient ICU. Transition to SQ insulin with insulin Lantus 20 unit once. Keep insulin drip and IV fluid running for 2 more hours. Then will switch off both insulin drip and IV fluid. Accu Check AC HS and Insulin Lispro SSI AC HS. Will offer diabetic diet. d/c q6h BMP/VBG. Potassium chloride 40 mEq PO once. Pending diabetes education. Pending physical therapy evaluation and treatment. 10/15: Fasting glucose 221. Been off insulin drip. Blood pressure 134/69mmHg, good urine output, mentation back to baseline. c/o general weakness. c/o chronic back pain. Transfer from ICU to med surg. d/c cardiac monitoring. Continue Insulin Lantus 20 unit BID plus Insulin Lispro SSI AC HS. Accu Check AC HS for blood glucose monitoring. Physical therapy evaluation and treatment. Constitutional Vitals: Vital Signs Temp Pulse Resp BP Pulse Ox O2 Del Method 36.5 C 79 14 134/69 100 Room Air 10/15/22 08:01 10/15/22 07:00 10/15/22 08:01 10/15/22 08:01 10/15/22 08:01 10/14/22 18:00 Period Temp Pulse Resp BP Sys/Rosario Pulse Ox O2 Del Method O2 Flow Rate Last 24 Hr 36.4 C-36.7 C 70-85 9-24 92-135/37-73 94-100 Room Air-Room Air Intake and Output 10/14/22 10/15/22 10/15/22 19:59 03:59 11:59 Intake Total 2480 540 480 Output Total 1150 Balance 1330 540 480 Weight 66.395 kg Intake & Output: Intake & Output 10/14/22 10/15/22 10/15/22 19:59 03:59 11:59 Intake Total 2480 540 480 Output Total 1150 Balance 1330 540 480 Weight 66.395 kg Intake: IV 1000 Sodium Chloride 0.9% 1,000 ml @ 1000 Wide Open IV BOLUS ONE Rx#: [id number] HumuLIN R 50 UNIT In Sodium 0 Chloride 0.9% 99.5 ml @ 6 UNIT/ HR 12 mls/hr IV DUR PEG Rx#: [id number] Oral 1480 540 480 Output: Void Amount 1150 # of times incontinent of urine 0 Other: Meal Dinner Breakfast Percent of Meal Consumed 100% 100% Feeding Ability Independent Urine Appearance Sediment Urine Color Bright Yellow Urine Odor Normal # Voids 0 # Bowel Movements 0 # of times incontinent of 0 Bowels Exam: sleeping Head Head exam: Present atraumatic and normal inspection Eye Eye exam: Present normal appearance ENT ENT exam: Present mucous membranes moist, normal exam and normal external ear exam Neck Neck exam: Present normal inspection Respiratory Respiratory exam: Present normal respiratory exam Cardiovascular Cardiovascular exam: Present normal rate and rhythm GI/Abdominal GI/Abdominal exam: Present normal bowel sounds Back Exam Back exam: Present normal inspection Neurological Exam Neurological exam: Present alert and oriented X3 Skin Skin exam: Present intact and warm OBJ DATA Labs 10/15/22 05:12 10/15/22 05:13 Labs: Abnormal Lab Results 10/15/22 10/15/22 10/14/22 05:13 05:12 09:31 WBC MCHC 30.8 L Plt Count 105 L Immature Gran % (Auto) Lymph # (Auto) [place] # (Auto) Immature Gran # ABG Methemoglobin VBG pH POC VBG pH 7.30 L VBG pCO2 POC VBG pCO2 at Temp 29.9 L VBG pO2 POC VBG pO2 112 H VBG HCO3 POC VBG HCO3 14.6 L VBG Total CO2 POC VBG Total CO2 15.0 L VBG O2 Saturation POC Venous O2 Sat 98.0 H VBG Base Excess POC VBG Base Excess -12.0 L Carboxyhemoglobin Total Hemoglobin POC Sodium Sodium POC Potassium Chloride 113 H Carbon Dioxide 14 L POC Total CO2 Anion Gap POC BUN BUN Creatinine Glucose 221 H POC Glucose Hemoglobin A1c Calcium 8.5 L POC WB Ioniz Calcium Alkaline Phosphatase Beta-Hydroxybutyrate 10/14/22 10/14/22 10/14/22 06:48 05:24 00:49 WBC 12.1 H MCHC Plt Count Immature Gran % (Auto) Lymph # (Auto) [place] # (Auto) 1.12 H Immature Gran # ABG Methemoglobin 0.3 L VBG pH 7.13 L* POC VBG pH VBG pCO2 23.1 L POC VBG pCO2 at Temp VBG pO2 64.6 H POC VBG pO2 VBG HCO3 7.5 L* POC VBG HCO3 VBG Total CO2 8.3 L* POC VBG Total CO2 VBG O2 Saturation 85.0 H POC Venous O2 Sat VBG Base Excess -20 L POC VBG Base Excess Carboxyhemoglobin 6.7 H Total Hemoglobin 15.4 H POC Sodium Sodium POC Potassium Chloride Carbon Dioxide 15 L POC Total CO2 Anion Gap POC BUN BUN 24 H Creatinine Glucose 152 H POC Glucose Hemoglobin A1c Calcium 8.4 L POC WB Ioniz Calcium Alkaline Phosphatase Beta-Hydroxybutyrate 10/14/22 10/13/22 10/13/22 00:49 19:00 18:55 WBC MCHC Plt Count Immature Gran % (Auto) Lymph # (Auto) [place] # (Auto) Immature Gran # ABG Methemoglobin VBG pH POC VBG pH 7.04 L* VBG pCO2 POC VBG pCO2 at Temp 17.7 L* VBG pO2 POC VBG pO2 VBG HCO3 POC VBG HCO3 4.8 L* VBG Total CO2 POC VBG Total CO2 5.0 L VBG O2 Saturation POC Venous O2 Sat VBG Base Excess POC VBG Base Excess -26.0 L Carboxyhemoglobin Total Hemoglobin POC Sodium 127 L Sodium 131 L POC Potassium 5.6 H Chloride Carbon Dioxide 6 L* POC Total CO2 7.0 L* Anion Gap 23.0 H POC BUN 29 H BUN 28 H Creatinine 1.2 H Glucose 407 H POC Glucose > 700 H* Hemoglobin A1c Calcium POC WB Ioniz Calcium 1.15 L Alkaline Phosphatase Beta-Hydroxybutyrate 10/13/22 10/13/22 10/13/22 18:52 18:52 18:52 WBC MCHC 30.6 L Plt Count Immature Gran % (Auto) 1.1 H Lymph # (Auto) 1.36 L [place] # (Auto) Immature Gran # 0.06 H ABG Methemoglobin VBG pH POC VBG pH VBG pCO2 POC VBG pCO2 at Temp VBG pO2 POC VBG pO2 VBG HCO3 POC VBG HCO3 VBG Total CO2 POC VBG Total CO2 VBG O2 Saturation POC Venous O2 Sat VBG Base Excess POC VBG Base Excess Carboxyhemoglobin Total Hemoglobin POC Sodium Sodium POC Potassium Chloride Carbon Dioxide POC Total CO2 Anion Gap POC BUN BUN Creatinine Glucose POC Glucose Hemoglobin A1c 11.0 H Calcium POC WB Ioniz Calcium Alkaline Phosphatase 167 H Beta-Hydroxybutyrate 11.00 H Meds: Medications Acetaminophen (Acetaminophen 325 Mg Tablet) 650 mg PO Q4-6HP PRN; Protocol PRN Reason: Per Pain Protocol/Fever > 101 Last Admin: 10/15/22 07:34 Dose: 650 mg Acyclovir (Acyclovir 400 Mg Tablet) 400 mg PO BIDCC PEG; Protocol Last Admin: 10/15/22 07:35 Dose: 400 mg Albuterol/Ipratropium (Ipratropium/Albuterol 3 Ml Ampul.Neb) 3 ml NEB Q4HRT PRN PRN Reason: Wheezing Dextrose (Dextrose 50% 50 Ml Vial) 25 ml IV PRN PRN PRN Reason: hypoglycemia Last Admin: 10/14/22 06:11 Dose: 25 ml Dextrose (Dextrose 50% 50 Ml Vial) 0 ml IV UD PRN PRN Reason: Per Sliding Scale Diagnostic Test (Pha) (Accu-Chek 1 Each Strip) 1 each FS ACHS [facility] Last Admin: 10/15/22 07:08 Dose: 1 each Docusate Sodium (Docusate Sodium 100 Mg Capsule) 100 mg PO BID [facility] Last Admin: 10/15/22 07:59 Dose: 100 mg Enoxaparin Sodium (Enoxaparin 40 Mg/0.4 Ml Syringe) 40 mg SQ DAILY [facility] Last Admin: 10/15/22 08:14 Dose: Not Given Glucose (Dextrose 31 Gm Oral.Susp) 15 gm PO PRN PRN PRN Reason: Hypoglycemia Insulin Human Regular 50 unit/ (Sodium Chloride) 100 mls @ 12 mls/hr IV DUR [facility]; Protocol Last Titration: 10/14/22 17:05 Dose: Infused Insulin Glargine (Insulin Glargine, Human 1 Unit/0.01 Ml) 20 unit SQ BID [facility] Last Admin: 10/15/22 07:34 Dose: 20 units Insulin Human Lispro (Insulin Lispro 1 Unit/0.01 Ml Unit) 0 unit SQ ACHS [facility]; Protocol Last Admin: 10/15/22 07:34 Dose: 6 unit Iron Carb/Multivit/[place]/Folic Acid (Multivit,Ther Iron,Ca,Fa & Min 1 Tablet) 1 tab PO DAILY [facility] Last Admin: 10/15/22 07:59 Dose: 1 tab Levothyroxine Sodium (Levothyroxine 125 Mcg Tablet) 125 mcg PO QAMAC [facility] Last Admin: 10/15/22 07:09 Dose: 125 mcg Methocarbamol (Methocarbamol 500 Mg Tablet) 500 mg PO TIDP PRN PRN Reason: Muscle Spasm Last Admin: 10/15/22 07:35 Dose: 500 mg Morphine Sulfate (Morphine 4 Mg/Ml Vial) 4 mg IV Q2HP PRN; Protocol PRN Reason: Per Pain Protocol Last Admin: 10/15/22 00:37 Dose: 4 mg Naloxone HCl (Naloxone Hcl 0.4 Mg/Ml Vial) 0.1 mg IV Q2MIN PRN PRN Reason: Opiate Reversal Ondansetron HCl (Ondansetron 4 Mg/2 Ml Vial) 4 mg IV Q4-6HP PRN; Protocol PRN Reason: Nausea And Vomiting Oxycodone HCl (Oxycodone Hcl 5 Mg Tablet) 5 mg PO Q4-6HP PRN; Protocol PRN Reason: Per Pain Protocol Last Admin: 10/15/22 00:34 Dose: 5 mg Senna (Sennosides 1 Tablet) 1 tab PO DAILY [facility] Last Admin: 01/30/23 07:34 Dose: 1 tab Sodium Chloride (0.9 % Sodium Chloride 10 Ml Syringe) 10 ml IV Q8 [facility] Last Admin: 10/15/22 05:29 Dose: 10 ml Trazodone HCl (Trazodone Hcl 100 Mg Tablet) 100 mg PO HS PRN PRN Reason: Insomnia Last Admin: 10/13/22 23:32 Dose: 100 mg Trazodone HCl (Trazodone Hcl 100 Mg Tablet) 100 mg PO HSP PRN PRN Reason: insomnia Vitamin D (Vitamin D3 25 Mcg Tablet) 50 mcg PO DAILY [facility] Last Admin: 10/15/22 07:59 Dose: 50 mcg ABG Interpretation ABG results: 10/14/22 00:49 ABG Methemoglobin 0.3 L VBG pH 7.13 L* VBG pCO2 23.1 L VBG pO2 64.6 H VBG HCO3 7.5 L* VBG Total CO2 8.3 L* VBG O2 Saturation 85.0 H VBG Base Excess -20 L A/P Assessment and plan (1) DKA, type 2: Status: Acute (2) Hyperkalemia: Status: Acute (3) Essential hypertension: Status: Acute (4) Mixed dyslipidemia: Status: Acute (5) Hypothyroidism: Status: Chronic Narrative A/P Narrative: 1. DKA type 2 due to medication non compliant: Transfer to inpatient med surg, d/c cardiac monitoring HgA1c 11.0 Continue Insulin Lantus 20 unit BID Accu Check AC HS and Insulin Lispro SSI AC HS Diabetic diet Pending diabetes education Pending physical therapy evaluation and treatment 2. Hyperkalemia: s/p Potassium chloride 40 mEq PO replacement once BMP daily to trend level Also check serum Mg level and replace as needed 3. Essential hypertension: Currently normotensive Propranolol 4. Mixed dyslipidemia: Continue statin therapy 5. Hypothyroidism: Continue oral thyroid replacement therapy GI ppx: not indicated DVT ppx: Lovenox Code status: DNR Prognosis: Stable Disposition: inpatient med surg; PT Time Spent With Patient Time: Total time spent is greater than 50% in coordination of care (as documented) at patient's floor/unit and/or counseling patient: Subsequent: Total time with patient: 35 - 49 minutes QUALITY VTE Deep Vein Thrombosis/Pulmonary Embolism Present on Admission: No
[2022-10-15] MEDS: IBUPROFEN 600 MG TABLET PO PRN (08:59)
[2022-10-15] MEDS ORDERED: KETOCONAZOLE 2% TOPICAL SCH (09:00)
[2022-10-15] MEDS: traZODone HCL 100 MG TABLET PO PRN (20:32)
[2022-10-16] MEDS: oxyCODONE HCL 5 MG TABLET PO PRN ×3 (02:19→21:04)
[2022-10-16] MEDS: 0.9 % SODIUM CHLORIDE 10 ML SYRINGE IV SCH ×3 (05:39→21:30)
[2022-10-16 06:30] LABS: Basophils # (Auto) 0.02 K/mcL (0.00-0.30); Basophils % (Auto) 0.4 % (0.0-2.0); Eosinophils # (Auto) 0.13 K/mcL (0.00-0.70); Eosinophils % (Auto) 2.9 % (0.0-7.0); Hematocrit 35.4 % (34.1-44.9); Hemoglobin 11.8 g/dL (11.2-15.7); Lymphocytes # (Auto) 1.92 K/mcL (1.50-4.80); Lymphocytes % (Auto) 42.8 % (15.5-49.0); Mean Corpuscular HGB Conc 33.3 g/dL (31.0-36.0); Mean Platelet Volume 10.8 fL (8.8-12.5); Monocytes # (Auto) 0.28 K/mcL (0.10-0.90); Monocytes % (Auto) 6.2 % (1.0-12.0); Neutrophils % (Auto) 47.5 % (38.0-78.0); Platelet Count 124 K/mcL (140-440); RBC 4.07 M/mcL (3.59-5.38); WBC 4.5 K/mcL (4.5-11.0)
[2022-10-16] MEDS: LEVOTHYROXINE 125 MCG TABLET PO SCH (07:08)
[2022-10-16] MEDS: METHOCARBAMOL 500 MG TABLET PO PRN ×3 (07:08→21:04)
[2022-10-16 07:09] LABS: Blood Urea Nitrogen 11 mg/dL (8-23); Calcium 8.1 mg/dL (8.6-10.4); Carbon Dioxide 23 mmol/L (22-30); Chloride 111 mmol/L (96-108); Glomerular Filtration Rate 93; Glucose 163 mg/dL (70-105)
[2022-10-16] MEDS: VITAMIN D3 25 MCG TABLET PO SCH (08:00)
[2022-10-16] MEDS: ACYCLOVIR 400 MG TABLET PO SCH ×2 (08:01→17:28)
[2022-10-16] MEDS: MULTIVIT,THER IRON,CA,FA & MIN 1 TABLET PO SCH (08:01)
[2022-10-16] MEDS: INSULIN LISPRO 1 UNIT/0.01 ML UNIT SQ SCH ×4 (08:01→21:07)
[2022-10-16] MEDS: DOCUSATE SODIUM 100 MG CAPSULE PO SCH ×2 (08:01→21:04)
[2022-10-16] MEDS: INSULIN GLARGINE, HUMAN 1 UNIT/0.01 ML SQ SCH ×2 (08:02→21:08)
[2022-10-16] MEDS: ENOXAPARIN 40 MG/0.4 ML SYRINGE SQ SCH (08:03)
[2022-10-16] MEDS: SENNOSIDES 1 TABLET PO SCH (08:03)
[2022-10-16] MEDS ORDERED: POTASSIUM CHLORIDE 20 MEQ in DEXTROSE 5% IN WATER 250 ML IV SCH ×2 (09:30→14:30)
[2022-10-16] MEDS: IBUPROFEN 600 MG TABLET PO PRN ×2 (10:16→16:40)
[2022-10-16] MEDS ORDERED: HYOSCYAMINE SULFATE 0.125 MG TABLET SL PRN (14:08)
[2022-10-16] MEDS: traMADol 50 MG TABLET PO PRN (15:20)
--- NOTE | 2022-10-16 16:09 | Internal Med Progress Note ---
SUBJECTIVE Subjective Patient information: Note initiated : 10/16/22 at 4:04 pm Service Date, if different from initiated Date: [] Patient: Tennille Castillo a 77 y/o F admitted on 10/13/22 for Pain all over, "HI" blood glucose.. Chief Complaint: [] Interval history: Ms. Castillo is a 77 year old F history of type 2 diabetes mellitus, essential hypertensions, dyslipidemia, hypothyroidism, presenting with 1 week history of weakness, dizziness, and suprapubic abdominal pain. Patient stated that she is not compliant to her insulin therapy for approximately about a week because she cannot find the box. Today when she checked her blood glucose with glucometer it read above 700. She is complaining of sharp constant severe bilateral suprapubic abdominal pain. She denies GI upset such as diarrhea or nausea or vomiting. She is coming of weakness and dizziness. Upon arrival to the ED, multiple repeat blood glucose levels are indicated acute blood glucose above 700. VBG showing pH 7.04, bicarb 4.8, and calculated anion gap of 20. Serum potassium level 5.6. Serum beta hydroxybutyrate 11.0, elevated. Admission request is called for diabetic ketoacidosis associated with uncontrolled type 2 diabetes mellitus due to medications noncompliance. 10/14: Blood glucose 152, serum bicarb 15, anion gap 13. Currently still have insulin drip running at 1 unit/hr, and IV fluid D5NS@125cc/hr running as well. Soft blood pressure latest set 99/41mmHg. Patient is sleeping. Stays in inpatient ICU. Transition to SQ insulin with insulin Lantus 20 unit once. Keep insulin drip and IV fluid running for 2 more hours. Then will switch off both insulin drip and IV fluid. Accu Check AC HS and Insulin Lispro SSI AC HS. Will offer diabetic diet. d/c q6h BMP/VBG. Potassium chloride 40 mEq PO once. Pending diabetes education. Pending physical therapy evaluation and treatment. 10/15: Fasting glucose 221. Been off insulin drip. Blood pressure 134/69mmHg, good urine output, mentation back to baseline. c/o general weakness. c/o chronic back pain. Transfer from ICU to med surg. d/c cardiac monitoring. Continue Insulin Lantus 20 unit BID plus Insulin Lispro SSI AC HS. Accu Check AC HS for blood glucose monitoring. Physical therapy evaluation and treatment. 10/16: Serum potassium level 2.9, and after KCl 20mEq IV replacement, repeat serum potassium level was still 2.9. Serum Mg level 1.7. Fasting glucose 163. Patient is complaining of muscle weakness and cramps. She denies any palpitations or chest pain. She denies any nausea vomiting or diarrhea. Repeat potassium chloride 20 M EQ IV replacement and will repeat serum potassium level at this evening. Will switch to KCl PO replacement once serum potassium level >=3.0. Continue Insulin Lantus 20 unit BID plus Insulin Lispro SSI AC HS. Accu Check AC HS for blood glucose monitoring. Tentative date of discharge: 10/17/22. Constitutional Vitals: Vital Signs Temp Pulse Resp BP Pulse Ox O2 Del Method 36.3 C 74 18 143/69 98 Room Air 10/16/22 11:35 10/16/22 11:35 10/16/22 11:35 10/16/22 11:35 10/16/22 11:35 10/16/22 11:35 Period Temp Pulse Resp BP Sys/Rosario Pulse Ox O2 Del Method O2 Flow Rate Last 24 Hr 36.1 C-36.9 C 74-80 14-18 134-173/56-70 97-100 Room Air-Room Air Intake and Output 10/16/22 10/16/22 10/16/22 03:59 11:59 19:59 Intake Total 200 260 240 Output Total 700 600 900 Balance -500 -340 -660 Intake & Output: Intake & Output 10/16/22 10/16/22 10/16/22 03:59 11:59 19:59 Intake Total 200 260 240 Output Total 700 600 900 Balance -500 -340 -660 Intake: IV 260 Potassium Chloride 20 Meq In 260 Dextrose 5% in Water 250 ml @ 130 mls/hr IV ONCE [facility] Rx#: [id number] Oral 200 240 Output: Void Amount 700 600 900 Other: Meal Lunch Percent of Meal Consumed 100% Feeding Ability Assist with Tray Set Up Urine Appearance Clear Clear Urine Color Yellow Yellow Stool Size Moderate Small Small Stool Color Brown Brown Brown Stool Consistency Formed Soft Formed # Bowel Movements 1 Exam: sleeping Head Head exam: Present atraumatic and normal inspection Eye Eye exam: Present normal appearance ENT ENT exam: Present mucous membranes moist, normal exam and normal external ear exam Neck Neck exam: Present normal inspection Respiratory Respiratory exam: Present normal respiratory exam Cardiovascular Cardiovascular exam: Present normal rate and rhythm GI/Abdominal GI/Abdominal exam: Present normal bowel sounds Back Exam Back exam: Present normal inspection Neurological Exam Neurological exam: Present alert and oriented X3 Skin Skin exam: Present intact and warm OBJ DATA Labs 10/16/22 05:34 10/16/22 13:01 Labs: Abnormal Lab Results 10/16/22 10/16/22 10/16/22 13:01 05:34 05:34 WBC MCHC Plt Count 124 L Immature Gran % (Auto) Lymph # (Auto) Stafford # (Auto) Immature Gran # ABG Methemoglobin VBG pH POC VBG pH VBG pCO2 POC VBG pCO2 at Temp VBG pO2 POC VBG pO2 VBG HCO3 POC VBG HCO3 VBG Total CO2 POC VBG Total CO2 VBG O2 Saturation POC Venous O2 Sat VBG Base Excess POC VBG Base Excess Carboxyhemoglobin Total Hemoglobin POC Sodium Sodium POC Potassium Potassium 2.9 L* 2.9 L* Chloride 111 H Carbon Dioxide POC Total CO2 Anion Gap POC BUN BUN Creatinine 0.5 L Glucose 163 H POC Glucose Hemoglobin A1c Calcium 8.1 L POC WB Ioniz Calcium Alkaline Phosphatase Beta-Hydroxybutyrate 10/15/22 10/15/22 10/14/22 05:13 05:12 09:31 WBC MCHC 30.8 L Plt Count 105 L Immature Gran % (Auto) Lymph # (Auto) Stafford # (Auto) Immature Gran # ABG Methemoglobin VBG pH POC VBG pH 7.30 L VBG pCO2 POC VBG pCO2 at Temp 29.9 L VBG pO2 POC VBG pO2 112 H VBG HCO3 POC VBG HCO3 14.6 L VBG Total CO2 POC VBG Total CO2 15.0 L VBG O2 Saturation POC Venous O2 Sat 98.0 H VBG Base Excess POC VBG Base Excess -12.0 L Carboxyhemoglobin Total Hemoglobin POC Sodium Sodium POC Potassium Potassium Chloride 113 H Carbon Dioxide 14 L POC Total CO2 Anion Gap POC BUN BUN Creatinine Glucose 221 H POC Glucose Hemoglobin A1c Calcium 8.5 L POC WB Ioniz Calcium Alkaline Phosphatase Beta-Hydroxybutyrate 10/14/22 10/14/22 10/14/22 06:48 05:24 00:49 WBC 12.1 H MCHC Plt Count Immature Gran % (Auto) Lymph # (Auto) Stafford # (Auto) 1.12 H Immature Gran # ABG Methemoglobin 0.3 L VBG pH 7.13 L* POC VBG pH VBG pCO2 23.1 L POC VBG pCO2 at Temp VBG pO2 64.6 H POC VBG pO2 VBG HCO3 7.5 L* POC VBG HCO3 VBG Total CO2 8.3 L* POC VBG Total CO2 VBG O2 Saturation 85.0 H POC Venous O2 Sat VBG Base Excess -20 L POC VBG Base Excess Carboxyhemoglobin 6.7 H Total Hemoglobin 15.4 H POC Sodium Sodium POC Potassium Potassium Chloride Carbon Dioxide 15 L POC Total CO2 Anion Gap POC BUN BUN 24 H Creatinine Glucose 152 H POC Glucose Hemoglobin A1c Calcium 8.4 L POC WB Ioniz Calcium Alkaline Phosphatase Beta-Hydroxybutyrate 10/14/22 10/13/22 10/13/22 00:49 19:00 18:55 WBC MCHC Plt Count Immature Gran % (Auto) Lymph # (Auto) Stafford # (Auto) Immature Gran # ABG Methemoglobin VBG pH POC VBG pH 7.04 L* VBG pCO2 POC VBG pCO2 at Temp 17.7 L* VBG pO2 POC VBG pO2 VBG HCO3 POC VBG HCO3 4.8 L* VBG Total CO2 POC VBG Total CO2 5.0 L VBG O2 Saturation POC Venous O2 Sat VBG Base Excess POC VBG Base Excess -26.0 L Carboxyhemoglobin Total Hemoglobin POC Sodium 127 L Sodium 131 L POC Potassium 5.6 H Potassium Chloride Carbon Dioxide 6 L* POC Total CO2 7.0 L* Anion Gap 23.0 H POC BUN 29 H BUN 28 H Creatinine 1.2 H Glucose 407 H POC Glucose > 700 H* Hemoglobin A1c Calcium POC WB Ioniz Calcium 1.15 L Alkaline Phosphatase Beta-Hydroxybutyrate 10/13/22 10/13/22 10/13/22 18:52 18:52 18:52 WBC MCHC 30.6 L Plt Count Immature Gran % (Auto) 1.1 H Lymph # (Auto) 1.36 L Stafford # (Auto) Immature Gran # 0.06 H ABG Methemoglobin VBG pH POC VBG pH VBG pCO2 POC VBG pCO2 at Temp VBG pO2 POC VBG pO2 VBG HCO3 POC VBG HCO3 VBG Total CO2 POC VBG Total CO2 VBG O2 Saturation POC Venous O2 Sat VBG Base Excess POC VBG Base Excess Carboxyhemoglobin Total Hemoglobin POC Sodium Sodium POC Potassium Potassium Chloride Carbon Dioxide POC Total CO2 Anion Gap POC BUN BUN Creatinine Glucose POC Glucose Hemoglobin A1c 11.0 H Calcium POC WB Ioniz Calcium Alkaline Phosphatase 167 H Beta-Hydroxybutyrate 11.00 H Meds: Medications Acetaminophen (Acetaminophen 325 Mg Tablet) 650 mg PO Q4-6HP PRN; Protocol PRN Reason: Per Pain Protocol/Fever > 101 Last Admin: 10/15/22 07:34 Dose: 650 mg [facility]cycl[facility] ([facility] 400 Mg [facility]) [facility] Last Admin: 10/16/22 08:01 Dose: 400 mg Albuterol/Ipratropium (Ipratropium/Albuterol 3 Ml Ampul.Neb) 3 ml NEB Q4HRT PRN PRN Reason: Wheezing Dextrose (Dextrose 50% 50 Ml Vial) 25 ml IV PRN PRN PRN Reason: hypoglycemia Last Admin: 10/14/22 06:11 Dose: 25 ml Dextrose (Dextrose 50% 50 Ml Vial) 0 ml IV UD PRN PRN Reason: Per Sliding Scale Diagnostic Test (Pha) (Accu-Chek 1 Each Strip) 1 each FS ACHS [facility] Last Admin: 10/16/22 12:00 Dose: 1 each Docusate Sodium (Docusate Sodium 100 Mg Capsule) 100 mg PO BID [facility] Last Admin: 10/16/22 08:01 Dose: 100 mg Enoxaparin Sodium (Enoxaparin 40 Mg/0.4 Ml Syringe) 40 mg SQ DAILY [facility] Last Admin: 10/16/22 08:03 Dose: Not Given Glucose (Dextrose 31 Gm Oral.Susp) 15 gm PO PRN PRN PRN Reason: Hypoglycemia Hyoscyamine (Hyoscyamine Sulfate 0.125 Mg Tablet) 0.125 mg SL Q6HP PRN PRN Reason: muscle spasm Potassium Chloride 20 meq/ (Dextrose) 260 mls @ 130 mls/hr IV 1430 [facility] Stop: 10/16/22 17:00 Last Admin: 10/16/22 14:31 Dose: 130 mls/hr Ibuprofen (Ibuprofen 600 Mg Tablet) 600 mg PO QIDP PRN; Protocol PRN Reason: PAIN/FEVER > 101 Last Admin: 10/16/22 10:16 Dose: 600 mg Insulin Glargine (Insulin Glargine, Human 1 Unit/0.01 Ml) 20 unit SQ BID [facility] Last Admin: 10/16/22 08:02 Dose: 20 units Insulin Human Lispro (Insulin Lispro 1 Unit/0.01 Ml Unit) 0 unit SQ ACHS [facility]; Protocol Last Admin: 10/16/22 12:03 Dose: 8 unit Iron Carb/Multivit/Toe Trimmer/Folic Acid (Multivit,Ther Iron,Ca,Fa & Min 1 Tablet) 1 tab PO DAILY [facility] Last Admin: 10/16/22 08:01 Dose: 1 tab Levothyroxine Sodium (Levothyroxine 125 Mcg Tablet) 125 mcg PO QAMAC [facility] Last Admin: 10/16/22 07:08 Dose: 125 mcg Methocarbamol (Methocarbamol 500 Mg Tablet) 500 mg PO TIDP PRN PRN Reason: Muscle Spasm Last Admin: 10/16/22 15:21 Dose: 500 mg Ondansetron HCl (Ondansetron 4 Mg/2 Ml Vial) 4 mg IV Q4-6HP PRN; Protocol PRN Reason: Nausea And Vomiting Oxycodone HCl (Oxycodone Hcl 5 Mg Tablet) 5 mg PO Q4-6HP PRN; Protocol PRN Reason: Per Pain Protocol Last Admin: 10/16/22 07:08 Dose: 5 mg Senna (Sennosides 1 Tablet) 1 tab PO DAILY [facility] Last Admin: 10/16/22 08:03 Dose: Not Given Sodium Chloride (0.9 % Sodium Chloride 10 Ml Syringe) 10 ml IV Q8 [facility] Last Admin: 10/16/22 13:53 Dose: 10 ml Tramadol HCl (Tramadol 50 Mg Tablet) 50 mg PO Q4HP PRN PRN Reason: Pain Last Admin: 10/16/22 15:20 Dose: 50 mg Trazodone HCl (Trazodone Hcl 100 Mg Tablet) 100 mg PO HS PRN PRN Reason: Insomnia Last Admin: 10/13/22 23:32 Dose: 100 mg Trazodone HCl (Trazodone Hcl 100 Mg Tablet) 100 mg PO HSP PRN PRN Reason: insomnia Last Admin: 10/15/22 20:32 Dose: 100 mg Vitamin D (Vitamin D3 25 Mcg Tablet) 50 mcg PO DAILY [facility] Last Admin: 10/16/22 08:00 Dose: 50 mcg ABG Interpretation ABG results: 10/14/22 00:49 ABG Methemoglobin 0.3 L VBG pH 7.13 L* VBG pCO2 23.1 L VBG pO2 64.6 H VBG HCO3 7.5 L* VBG Total CO2 8.3 L* VBG O2 Saturation 85.0 H VBG Base Excess -20 L A/P Assessment and plan (1) DKA, type 2: Status: Acute (2) Essential hypertension: Status: Acute (3) Mixed dyslipidemia: Status: Acute (4) Hypothyroidism: Status: Chronic (5) Hypokalemia: Status: Acute Narrative A/P Narrative: 1. DKA type 2 due to medication non compliant: Transfer to inpatient med surg, d/c cardiac monitoring HgA1c 11.0 Continue Insulin Lantus 20 unit BID Accu Check AC HS and Insulin Lispro SSI AC HS Diabetic diet Pending diabetes education Pending physical therapy evaluation and treatment 2. Hypokalemia: Serum potassium level 2.9, and after KCl 20mEq IV replacement, repeat serum potassium level was still 2.9. Serum Mg level 1.7. Repeat potassium chloride 20 M EQ IV replacement and will repeat serum potassium level at this evening. Will switch to KCl PO replacement once serum potassium level >=3.0. 3. Essential hypertension: Currently normotensive Propranolol 4. Mixed dyslipidemia: Continue statin therapy 5. Hypothyroidism: Continue oral thyroid replacement therapy GI ppx: not indicated DVT ppx: Lovenox Code status: DNR Prognosis: Guarded Disposition: inpatient med surg; PT Time Spent With Patient Time: Total time spent is greater than 50% in coordination of care (as documented) at patient's floor/unit and/or counseling patient: Subsequent: Total time with patient: 35 - 49 minutes QUALITY VTE Deep Vein Thrombosis/Pulmonary Embolism Present on Admission: No
[2022-10-16] MEDS: POTASSIUM CHLORIDE 20 MEQ TABLET PO SCH (21:04)
[2022-10-16] MEDS: traZODone HCL 100 MG TABLET PO PRN (21:04)
[2022-10-17] MEDS: oxyCODONE HCL 5 MG TABLET PO PRN ×3 (02:48→16:52)
[2022-10-17] MEDS: 0.9 % SODIUM CHLORIDE 10 ML SYRINGE IV SCH ×3 (05:45→21:41)
[2022-10-17] MEDS: METHOCARBAMOL 500 MG TABLET PO PRN (05:51)
[2022-10-17] MEDS: LEVOTHYROXINE 125 MCG TABLET PO SCH (07:03)
[2022-10-17] MEDS: ENOXAPARIN 40 MG/0.4 ML SYRINGE SQ SCH (07:13)
[2022-10-17 07:33] LABS: Basophils # (Auto) 0.01 K/mcL (0.00-0.30); Basophils % (Auto) 0.2 % (0.0-2.0); Eosinophils # (Auto) 0.15 K/mcL (0.00-0.70); Eosinophils % (Auto) 3.1 % (0.0-7.0); Hematocrit 38.9 % (34.1-44.9); Hemoglobin 13.1 g/dL (11.2-15.7); Lymphocytes # (Auto) 1.78 K/mcL (1.50-4.80); Lymphocytes % (Auto) 37.2 % (15.5-49.0); Mean Corpuscular HGB Conc 33.7 g/dL (31.0-36.0); Mean Platelet Volume 11.4 fL (8.8-12.5); Monocytes # (Auto) 0.27 K/mcL (0.10-0.90); Monocytes % (Auto) 5.6 % (1.0-12.0); Neutrophils % (Auto) 53.7 % (38.0-78.0); Platelet Count 145 K/mcL (140-440); RBC 4.47 M/mcL (3.59-5.38); Red Cell Distribution Width 13.5 % (11.5-14.5); WBC 4.8 K/mcL (4.5-11.0)
[2022-10-17] MEDS: INSULIN LISPRO 1 UNIT/0.01 ML UNIT SQ SCH ×4 (08:07→20:48)
[2022-10-17] MEDS: POTASSIUM CHLORIDE 20 MEQ TABLET PO SCH ×2 (08:07→16:53)
[2022-10-17] MEDS: VITAMIN D3 25 MCG TABLET PO SCH (08:07)
[2022-10-17] MEDS: INSULIN GLARGINE, HUMAN 1 UNIT/0.01 ML SQ SCH ×2 (08:07→20:49)
[2022-10-17] MEDS: DOCUSATE SODIUM 100 MG CAPSULE PO SCH ×2 (08:08→20:48)
[2022-10-17] MEDS: ACYCLOVIR 400 MG TABLET PO SCH ×2 (08:08→16:52)
[2022-10-17] MEDS: MULTIVIT,THER IRON,CA,FA & MIN 1 TABLET PO SCH (08:08)
[2022-10-17] MEDS: SENNOSIDES 1 TABLET PO SCH (08:08)
[2022-10-17 08:54] LABS: Blood Urea Nitrogen 11 mg/dL (8-23); Calcium 8.7 mg/dL (8.6-10.4); Carbon Dioxide 27 mmol/L (22-30); Chloride 101 mmol/L (96-108); Glomerular Filtration Rate 93; Glucose 136 mg/dL (70-105)
[2022-10-17] MEDS ORDERED: POTASSIUM CHLORIDE 20 MEQ in DEXTROSE 5% IN WATER 250 ML IV ONE (09:46)
[2022-10-17] MEDS ORDERED: MAGNESIUM SULFATE 2 GM/50 ML BAG IV ONE (09:46)
[2022-10-17] MEDS: traMADol 50 MG TABLET PO PRN (10:12)
[2022-10-17] MEDS: ONDANSETRON 4 MG/2 ML VIAL IV PRN (10:54)
--- NOTE | 2022-10-17 15:48 | Internal Med Progress Note ---
SUBJECTIVE Subjective Patient information: Note initiated : 10/17/22 at 3:44 pm Service Date, if different from initiated Date: [] Patient: Tennille Castillo a 77 y/o F admitted on 10/13/22 for Pain all over, "HI" blood glucose.. Chief Complaint: [] Interval history: Ms. Castillo is a 77 year old F history of type 2 diabetes mellitus, essential hypertensions, dyslipidemia, hypothyroidism, presenting with 1 week history of weakness, dizziness, and suprapubic abdominal pain. Patient stated that she is not compliant to her insulin therapy for approximately about a week because she cannot find the box. Today when she checked her blood glucose with glucometer it read above 700. She is complaining of sharp constant severe bilateral suprapubic abdominal pain. She denies GI upset such as diarrhea or nausea or vomiting. She is coming of weakness and dizziness. Upon arrival to the ED, multiple repeat blood glucose levels are indicated acute blood glucose above 700. VBG showing pH 7.04, bicarb 4.8, and calculated anion gap of 20. Serum potassium level 5.6. Serum beta hydroxybutyrate 11.0, elevated. Admission request is called for diabetic ketoacidosis associated with uncontrolled type 2 diabetes mellitus due to medications noncompliance. 10/14: Blood glucose 152, serum bicarb 15, anion gap 13. Currently still have insulin drip running at 1 unit/hr, and IV fluid D5NS@125cc/hr running as well. Soft blood pressure latest set 99/41mmHg. Patient is sleeping. Stays in inpatient ICU. Transition to SQ insulin with insulin Lantus 20 unit once. Keep insulin drip and IV fluid running for 2 more hours. Then will switch off both insulin drip and IV fluid. Accu Check AC HS and Insulin Lispro SSI AC HS. Will offer diabetic diet. d/c q6h BMP/VBG. Potassium chloride 40 mEq PO once. Pending diabetes education. Pending physical therapy evaluation and treatment. 10/15: Fasting glucose 221. Been off insulin drip. Blood pressure 134/69mmHg, good urine output, mentation back to baseline. c/o general weakness. c/o chronic back pain. Transfer from ICU to med surg. d/c cardiac monitoring. Continue Insulin Lantus 20 unit BID plus Insulin Lispro SSI AC HS. Accu Check AC HS for blood glucose monitoring. Physical therapy evaluation and treatment. 10/16: Serum potassium level 2.9, and after KCl 20mEq IV replacement, repeat serum potassium level was still 2.9. Serum Mg level 1.7. Fasting glucose 163. Patient is complaining of muscle weakness and cramps. She denies any palpitations or chest pain. She denies any nausea vomiting or diarrhea. Repeat potassium chloride 20 M EQ IV replacement and will repeat serum potassium level at this evening. Will switch to KCl PO replacement once serum potassium level >=3.0. Continue Insulin Lantus 20 unit BID plus Insulin Lispro SSI AC HS. Accu Check AC HS for blood glucose monitoring. Tentative date of discharge: 10/17/22. 10/17: Fasting glucose 136. Potassium and Magnesium 2.9 and 1.5, respectively. Patient denies any nausea or vomiting. She is c/o chronic mild abdominal and back pain. KCl 20mEq IV once and MgSO4 2gm IV once, in addition to KCl 40mEq PO BID. Repeat chemistry level in the morning to trend serum potassium and admitting serum level, respectively. Continue Insulin Lantus 20 unit BID plus Insulin Lispro SSI AC HS. patient is only interested in going home for the time being although she stated her daughter is helping her to look at a assisted living facility that would take her cats. Constitutional Vitals: Vital Signs Temp Pulse Resp BP Pulse Ox O2 Del Method 37.3 C H 78 20 139/75 97 Room Air 10/17/22 12:00 10/17/22 12:00 10/17/22 12:00 10/17/22 12:00 10/17/22 12:10/17/22 12:00 Period Temp Pulse Resp BP Sys/Rosario Pulse Ox O2 Del Method O2 Flow Rate Last 24 Hr 36.2 C-37.3 C 76-84 12-20 139-163/73-81 97-99 Room Air-Room Air Intake and Output 10/17/22 10/17/22 10/17/22 03:59 11:59 19:59 Intake Total 360 310 Output Total 700 Balance -340 310 Weight 64.093 kg Intake & Output: Intake & Output 10/17/22 10/17/22 10/17/22 03:59 11:59 19:59 Intake Total 360 310 Output Total 700 Balance -340 310 Weight 64.093 kg Intake: IV 310 Potassium Chloride 20 Meq In 260 Dextrose 5% in Water 250 ml @ 130 mls/hr IV ONCE ONE Rx#: [id number] Oral 360 Output: Void Amount 700 Other: Urine Appearance Clear Urine Color Yellow Stool Size Small Stool Color Brown Pale Stool Consistency Normal for Patient Soft # Voids 1 # Bowel Movements 0 # of times incontinent of 0 Bowels Exam: sleeping Head Head exam: Present atraumatic and normal inspection Eye Eye exam: Present normal appearance ENT ENT exam: Present mucous membranes moist, normal exam and normal external ear exam Neck Neck exam: Present normal inspection Respiratory Respiratory exam: Present normal respiratory exam Cardiovascular Cardiovascular exam: Present normal rate and rhythm GI/Abdominal GI/Abdominal exam: Present normal bowel sounds Back Exam Back exam: Present normal inspection Neurological Exam Neurological exam: Present alert and oriented X3 Skin Skin exam: Present intact and warm OBJ DATA Labs 10/17/22 05:37 10/17/22 05:37 Labs: Abnormal Lab Results 10/17/22 10/16/22 10/16/22 05:37 18:32 13:01 MCHC Plt Count Potassium 2.9 L* 3.1 L 2.9 L* Chloride Carbon Dioxide Creatinine 0.5 L Glucose 136 H Calcium Magnesium 1.5 L 10/16/22 10/16/22 10/15/22 05:34 05:34 05:13 MCHC Plt Count 124 L Potassium 2.9 L* Chloride 111 H 113 H Carbon Dioxide 14 L Creatinine 0.5 L Glucose 163 H 221 H Calcium 8.1 L 8.5 L Magnesium 10/15/22 05:12 MCHC 30.8 L Plt Count 105 L Potassium Chloride Carbon Dioxide Creatinine Glucose Calcium Magnesium Meds: Medications Acetaminophen (Acetaminophen 325 Mg Tablet) 650 mg PO Q4-6HP PRN; Protocol PRN Reason: Per Pain Protocol/Fever > 101 Last Admin: 10/15/22 07:34 Dose: 650 mg Acyclovir (Acyclovir 400 Mg Tablet) 400 mg PO BIDCC PEG; Protocol Last Admin: 10/17/22 08:08 Dose: 400 mg Albuterol/Ipratropium (Ipratropium/Albuterol 3 Ml Ampul.Neb) 3 ml NEB Q4HRT PRN PRN Reason: Wheezing Dextrose (Dextrose 50% 50 Ml Vial) 25 ml IV PRN PRN PRN Reason: hypoglycemia Last Admin: 10/14/22 06:11 Dose: 25 ml Dextrose (Dextrose 50% 50 Ml Vial) 0 ml IV UD PRN PRN Reason: Per Sliding Scale Diagnostic Test (Pha) (Accu-Chek 1 Each Strip) 1 each FS ACHS [facility] Last Admin: 10/17/22 11:49 Dose: 1 each Docusate Sodium (Docusate Sodium 100 Mg Capsule) 100 mg PO BID [facility] Last Admin: 10/17/22 08:08 Dose: 100 mg Enoxaparin Sodium (Enoxaparin 40 Mg/0.4 Ml Syringe) 40 mg SQ DAILY [facility] Last Admin: 10/17/22 07:13 Dose: Not Given Glucose (Dextrose 31 Gm Oral.Susp) 15 gm PO PRN PRN PRN Reason: Hypoglycemia Hyoscyamine (Hyoscyamine Sulfate 0.125 Mg Tablet) 0.125 mg SL Q6HP PRN PRN Reason: muscle spasm Last Admin: 10/16/22 21:04 Dose: 0.125 mg Ibuprofen (Ibuprofen 600 Mg Tablet) 600 mg PO QIDP PRN; Protocol PRN Reason: PAIN/FEVER > 101 Last Admin: 10/16/22 16:40 Dose: 600 mg Insulin Glargine (Insulin Glargine, Human 1 Unit/0.01 Ml) 20 unit SQ BID [facility] Last Admin: 10/17/22 08:07 Dose: 20 units Insulin Human Lispro (Insulin Lispro 1 Unit/0.01 Ml Unit) 0 unit SQ [facility]; Protocol Last Admin: 10/17/22 11:50 Dose: Not Given Iron Carb/Multivit/Fonda/Folic Acid (Multivit,Ther Iron,Ca,Fa & Min 1 Tablet) 1 tab PO DAILY [facility] Last Admin: 10/17/22 08:08 Dose: 1 tab Levothyroxine Sodium (Levothyroxine 125 Mcg Tablet) 125 mcg PO QAMAC [facility] Last Admin: 10/17/22 07:03 Dose: 125 mcg Methocarbamol (Methocarbamol 500 Mg Tablet) 500 mg PO TIDP PRN PRN Reason: Muscle Spasm Last Admin: 10/17/22 05:51 Dose: 500 mg Ondansetron HCl (Ondansetron 4 Mg/2 Ml Vial) 4 mg IV Q4-6HP PRN; Protocol PRN Reason: Nausea And Vomiting Last Admin: 10/17/22 10:54 Dose: 4 mg Oxycodone HCl (Oxycodone Hcl 5 Mg Tablet) 5 mg PO Q4-6HP PRN; Protocol PRN Reason: Per Pain Protocol Last Admin: 10/17/22 07:03 Dose: 5 mg Potassium Chloride (Potassium Chloride 20 Meq Tablet) 40 meq PO BIDCC [facility] Last Admin: 10/17/22 08:07 Dose: 40 meq Senna (Sennosides 1 Tablet) 1 tab PO DAILY [facility] Last Admin: 10/17/22 08:08 Dose: 1 tab Sodium Chloride (0.9 % Sodium Chloride 10 Ml Syringe) 10 ml IV Q8 [facility] Last Admin: 10/17/22 12:22 Dose: 10 ml Tramadol HCl (Tramadol 50 Mg Tablet) 50 mg PO Q4HP PRN PRN Reason: Pain Last Admin: 10/17/22 10:12 Dose: 50 mg Trazodone HCl (Trazodone Hcl 100 Mg Tablet) 100 mg PO HS PRN PRN Reason: Insomnia Last Admin: 10/13/22 23:32 Dose: 100 mg Trazodone HCl (Trazodone Hcl 100 Mg Tablet) 100 mg PO HSP PRN PRN Reason: insomnia Last Admin: 10/16/22 21:04 Dose: 100 mg Vitamin D (Vitamin D3 25 Mcg Tablet) 50 mcg PO DAILY [facility] Last Admin: 10/17/22 08:07 Dose: 50 mcg ABG Interpretation ABG results: 10/14/22 00:49 ABG Methemoglobin 0.3 L VBG pH 7.13 L* VBG pCO2 23.1 L VBG pO2 64.6 H VBG HCO3 7.5 L* VBG Total CO2 8.3 L* VBG O2 Saturation 85.0 H VBG Base Excess -20 L A/P Assessment and plan (1) DKA, type 2: Status: Acute (2) Essential hypertension: Status: Acute (3) Mixed dyslipidemia: Status: Acute (4) Hypothyroidism: Status: Chronic (5) Hypokalemia: Status: Acute (6) Hypomagnesemia: Status: Chronic Narrative A/P Narrative: 1. DKA type 2 due to medication non compliant: Transfer to inpatient med surg, d/c cardiac monitoring HgA1c 11.0 Continue Insulin Lantus 20 unit BID Accu Check AC HS and Insulin Lispro SSI AC HS Diabetic diet Pending diabetes education Pending physical therapy evaluation and treatment--> patient refused to go a nywhere but home upon hospital discharge 2. Hypokalemia/Hypomagnesemia: KCl 20mEq IV once and MgSO4 2gm IV once, in addition to KCl 40mEq PO BID Repeat chemistry level in the morning to trend serum potassium and admitting serum level, respectively 3. Essential hypertension: Currently normotensive Propranolol 4. Mixed dyslipidemia: Continue statin therapy 5. Hypothyroidism: Continue oral thyroid replacement therapy GI ppx: not indicated DVT ppx: Lovenox Code status: DNR Prognosis: Guarded Disposition: inpatient med surg Time Spent With Patient Time: Total time spent is greater than 50% in coordination of care (as documented) at patient's floor/unit and/or counseling patient: Subsequent: Total time with patient: 35 - 49 minutes QUALITY VTE Deep Vein Thrombosis/Pulmonary Embolism Present on Admission: No
[2022-10-18] MEDS: oxyCODONE HCL 5 MG TABLET PO PRN ×3 (01:24→11:13)
[2022-10-18] MEDS: 0.9 % SODIUM CHLORIDE 10 ML SYRINGE IV SCH ×3 (05:34→13:34)
[2022-10-18] MEDS: INSULIN LISPRO 1 UNIT/0.01 ML UNIT SQ SCH ×2 (06:39→11:35)
[2022-10-18 06:41] LABS: Basophils # (Auto) 0.03 K/mcL (0.00-0.30); Basophils % (Auto) 0.6 % (0.0-2.0); Eosinophils # (Auto) 0.22 K/mcL (0.00-0.70); Eosinophils % (Auto) 4.1 % (0.0-7.0); Hematocrit 40.7 % (34.1-44.9); Hemoglobin 13.4 g/dL (11.2-15.7); Lymphocytes # (Auto) 2.31 K/mcL (1.50-4.80); Lymphocytes % (Auto) 42.6 % (15.5-49.0); Mean Cell Volume 88.1 fL (80.0-100.0); Mean Corpuscular HGB Conc 32.9 g/dL (31.0-36.0); Mean Platelet Volume 11.3 fL (8.8-12.5); Monocytes # (Auto) 0.34 K/mcL (0.10-0.90); Monocytes % (Auto) 6.3 % (1.0-12.0); Platelet Count 161 K/mcL (140-440); RBC 4.62 M/mcL (3.59-5.38); Red Cell Distribution Width 13.8 % (11.5-14.5); WBC 5.4 K/mcL (4.5-11.0)
[2022-10-18] MEDS: ONDANSETRON 4 MG/2 ML VIAL IV PRN ×2 (06:43→10:39)
[2022-10-18] MEDS: LEVOTHYROXINE 125 MCG TABLET PO SCH (07:16)
[2022-10-18 07:21] LABS: Blood Urea Nitrogen 8 mg/dL (8-23); Carbon Dioxide 28 mmol/L (22-30); Chloride 104 mmol/L (96-108); Glomerular Filtration Rate 93; Glucose 65 mg/dL (70-105)
[2022-10-18] MEDS: ENOXAPARIN 40 MG/0.4 ML SYRINGE SQ SCH (08:06)
[2022-10-18] MEDS: POTASSIUM CHLORIDE 20 MEQ TABLET PO SCH (08:20)
[2022-10-18] MEDS: DOCUSATE SODIUM 100 MG CAPSULE PO SCH (08:22)
[2022-10-18] MEDS: ACYCLOVIR 400 MG TABLET PO SCH (08:22)
[2022-10-18] MEDS: SENNOSIDES 1 TABLET PO SCH (08:22)
[2022-10-18] MEDS: VITAMIN D3 25 MCG TABLET PO SCH (08:23)
[2022-10-18] MEDS: MULTIVIT,THER IRON,CA,FA & MIN 1 TABLET PO SCH (08:23)
[2022-10-18] MEDS: INSULIN GLARGINE, HUMAN 1 UNIT/0.01 ML SQ SCH (08:36)
--- NOTE | 2022-10-18 09:26 | Discharge Summary ---
Discharge Provider Provider IMPORTANT FOLLOW-UP INFORMATION FOR PCP: Patient information: Note initiated : 10/18/22 at 9:24 am Service Date, if different from initiated Date: [] Patient: Tennille Castillo 77 y/o F admitted on 10/13/22 for Pain all over, "HI" blood glucose.. Chief Complaint: [] Date of admission: 10/13/22 21:56 Discharge date: 10/18/22 Primary care physician: OSKAR Carvajal Attending physician on admission: Devon Mcdaniel Consults: 10/13/22 Consult to Physician [CONS] Stat Comment: DKA Consulting Provider: Devon Mcdaniel Reason For Exam: Physician to Consult Attending physician on discharge: Devon Mcdaniel COURSE Hospital Course Hospital course: Ms. Castillo is a 77 year old F history of type 2 diabetes mellitus, essential hypertensions, dyslipidemia, hypothyroidism, presenting with 1 week history of weakness, dizziness, and suprapubic abdominal pain. Patient stated that she is not compliant to her insulin therapy for approximately about a week because she cannot find the box. Today when she checked her blood glucose with glucometer it read above 700. She is complaining of sharp constant severe bilateral suprapubic abdominal pain. She denies GI upset such as diarrhea or nausea or vomiting. She is coming of weakness and dizziness. Upon arrival to the ED, multiple repeat blood glucose levels are indicated acute blood glucose above 700. VBG showing pH 7.04, bicarb 4.8, and calculated anion gap of 20. Serum potassium level 5.6. Serum beta hydroxybutyrate 11.0, elevated. Admission request is called for diabetic ketoacidosis associated with uncontrolled type 2 diabetes mellitus due to medications noncompliance. 10/14: Blood glucose 152, serum bicarb 15, anion gap 13. Currently still have insulin drip running at 1 unit/hr, and IV fluid D5NS@125cc/hr running as well. Soft blood pressure latest set 99/41mmHg. Patient is sleeping. Stays in inpatient ICU. Transition to SQ insulin with insulin Lantus 20 unit once. Keep insulin drip and IV fluid running for 2 more hours. Then will switch off both insulin drip and IV fluid. Accu Check AC HS and Insulin Lispro SSI AC HS. Will offer diabetic diet. d/c q6h BMP/VBG. Potassium chloride 40 mEq PO once. Pending diabetes education. Pending physical therapy evaluation and treatment. 10/15: Fasting glucose 221. Been off insulin drip. Blood pressure 134/69mmHg, good urine output, mentation back to baseline. c/o general weakness. c/o chronic back pain. Transfer from ICU to med surg. d/c cardiac monitoring. Continue Insulin Lantus 20 unit BID plus Insulin Lispro SSI AC HS. Accu Check AC HS for blood glucose monitoring. Physical therapy evaluation and treatment. 10/16: Serum potassium level 2.9, and after KCl 20mEq IV replacement, repeat serum potassium level was still 2.9. Serum Mg level 1.7. Fasting glucose 163. Patient is complaining of muscle weakness and cramps. She denies any palpitations or chest pain. She denies any nausea vomiting or diarrhea. Repeat potassium chloride 20 M EQ IV replacement and will repeat serum potassium level at this evening. Will switch to KCl PO replacement once serum potassium level >=3.0. Continue Insulin Lantus 20 unit BID plus Insulin Lispro SSI AC HS. Accu Check AC HS for blood glucose monitoring. Tentative date of discharge: 10/17/22. 10/17: Fasting glucose 136. Potassium and Magnesium 2.9 and 1.5, respectively. Patient denies any nausea or vomiting. She is c/o chronic mild abdominal and back pain. KCl 20mEq IV once and MgSO4 2gm IV once, in addition to KCl 40mEq PO BID. Repeat chemistry level in the morning to trend serum potassium and admitting serum level, respectively. Continue Insulin Lantus 20 unit BID plus Insulin Lispro SSI AC HS. patient is only interested in going home for the time being although she stated her daughter is helping her to look at a assisted living facility that would take her cats. 10/18: Discharged home. 2 week PCP follow up made for her. All questions were answered prior to patient being physically discharged. Discharge diagnosis: DKA Time Spent with Patient Time attestation: Total time spent providing and/or coordinating discharge services: Time spent: Less than 30 minutes EXAM Constitutional Vitals: Temp Pulse Resp BP Pulse Ox O2 Del Method 36.1 C 79 16 152/78 98 Room Air 10/18/22 09:01 10/18/22 09:01 10/18/22 09:01 10/18/22 09:01 10/18/22 09:01 10/18/22 09:01 General appearance: cooperative and no acute distress Head Head exam: Present atraumatic and normocephalic Eye Eye exam: Present EOMI and PERRL ENT ENT exam: Present mucous membranes moist, normal exam and normal external ear exam Neck Neck exam: Present normal inspection; Absent lymphadenopathy, tenderness or thyromegaly Respiratory Respiratory exam: Absent accessory muscle use, respiratory distress or wheezes Cardiovascular Cardiovascular exam: Present normal rate and rhythm; Absent JVD GI/Abdominal GI/Abdominal exam: Present normal bowel sounds and soft; Absent organomegaly or tenderness Extremities Exam Extremities exam: Present full ROM, normal capillary refill and normal inspection; Absent tenderness Neurological Exam Neurological exam: Present alert, CN II-XII intact and oriented X3; Absent motor sensory deficit Psychiatric Psychiatric exam: Present normal affect and normal mood; Absent anxious or depressed Skin Skin exam: Present dry and intact Discharge Data Data Completed and Pending Labs on day of discharge: Labs from last 24 hours 10/18/22 10/18/22 05:29 05:29 WBC 5.4 RBC 4.62 Hgb 13.4 Hct 40.7 MCV 88.1 MCH 29.0 MCHC 32.9 RDW 13.8 Plt Count 161 MPV 11.3 Immature Gran % (Auto) 0.4 Neut % (Auto) 46.0 Lymph % (Auto) 42.6 Turner % (Auto) 6.3 Eos % (Auto) 4.1 Baso % (Auto) 0.6 Lymph # (Auto) 2.31 Turner # (Auto) 0.34 Eos # (Auto) 0.22 Baso # (Auto) 0.03 Immature Gran # 0.02 Absolute Neutrophils 2.50 Sodium 143 Potassium 3.6 Chloride 104 Carbon Dioxide 28 Anion Gap 11.0 BUN 8 Creatinine 0.5 L GFR Calculation 93 Glucose 65 L Calcium 9.0 Magnesium 1.9 Discharge Plan Patient/Caregiver Discharge Instructions Activity: increase activity as tolerated Diet: Consistent Carbohydrate Instructions: Diabetic Ketoacidosis (GEN) Activity Restrictions/Additional Instructions: [employer] [facility] will contact you after discharge to schedule an appointment. Prescriptions: Continued multivit [id number] 186 [Hair, Skin and Nails Advanced] 1 tab PO DAILY trazodone 100 mg tablet 100 mg PO HSP PRN (Reason: insomnia) acyclovir 400 mg tablet 1 tab PO BID cholecalciferol (vitamin D3) [Vitamin D3] 50 mcg (2,000 unit) Capsule 50 mcg PO DAILY insulin aspart U-100 [Novolog FlexPen U-100 Insulin] 100 unit/mL (3 mL) insulin pen See Protocol subcut ACHS Protocol: Insulin Sliding Scale, High Condition: HUMALOG/NOVALOG SC SLIDING Dose/Route: SCALE Condition: FSBS < 70 Dose/Route: Give 4 Oz juice, or 15gm oral Instruction: Glucose, or 25ml D50W IV if Dose/Route: unable to take PO. Recheck in Instruction: 15 min and repeat if FSBS < 70 Condition: FSBS 71-140 Dose/Route: NO COVERAGE Condition: FSBS 141-170 Dose/Route: 3 UNITS Condition: FSBS 171-200 Dose/Route: 6 UNITS Condition: FSBS 201-250 Dose/Route: 9 UNITS Condition: FSBS 251-300 Dose/Route: 12 UNITS Condition: FSBS 301-350 Dose/Route: 15 UNITS Condition: FSBS 351-400 Dose/Route: 18 UNITS Condition: FSBS > 400 Dose/Route: 20 UNITS; REPEAT Q2H X2 Instruction: CONTINUE FOLLOWING SLIDING Condition: SCALE; IF STILL > 400; CALL Dose/Route: PHYSICIAN methocarbamol 500 mg Tablet 500 mg PO TIDP PRN (Reason: Muscle Spasm) Qty: 30 0RF levothyroxine 125 mcg tablet 1 tab PO QAM (DME) True Metrix Glucose Test Strip Strip 1 strip MISCELLANEOUS QID insulin degludec [Tresiba U-100 Insulin] 100 unit/mL solution 20 unit subcut BID Qty: 10 0RF ketoconazole 2 % shampoo 1 applic topical DAILY hyoscyamine sulfate 0.125 mg tablet,disintegrating 0.125 mg sublingual Q6HP PRN (Reason: muscle spasm) tramadol 50 mg tablet 50 - 100 mg PO Q6HP PRN (Reason: pain) Follow Up Plan Follow up with: Jacque Severino FNP [Primary Care Provider] - 10/22/22 1:30 pm (Please arrive 15 minutes early) Patient Disposition: Home, Self-Care Rehab Potential: Good I certify that the patient requires SNF services: No Overall status at discharge: patient is back to baseline Discharge Orders: Discharge Order (Routine); Ordered 10/18/22 Ordered By: Devon GASCA VTE Deep Vein Thrombosis/Pulmonary Embolism Present on Admission: No
[2022-10-18] MEDS: IBUPROFEN 600 MG TABLET PO PRN (14:32)
== END 2022-10-18 16:00 | disposition home or self-care (01) | DRG 639 ==
LOC: ED 18:29 → ICU 21:56 → MEDSUR 10-16 22:27
PROVIDERS: ADMIT Internal Medicine; ATTEND Internal Medicine

== ENCOUNTER 2022-10-29 09:34 | Inpatient (IN) ==
[2022-10-29] MEDS ORDERED: IOPAMIDOL 100 ML BOTTLE IV ONE (09:35)
--- NOTE | 2022-10-29 09:37 | Emergency Department Note ---
HPI General Chief complaint: Abdominal Pain Stated complaint: UTI, abd pain Time Seen by Provider: 10/29/22 09:37 Mode of arrival: EMS History of Present Illness HPI Narrative: Narrative: Patient is a 77-year-old female with a complex medical history who presents to the emergency department due to abdominal pain and concern for worsening UTI. She states that she was diagnosed with a UTI on Saturday. She began taking Macrobid Saturday night and today began to have worsened lower abdominal pain and flank pain bilaterally. She denies any further radiation of the pain. She states that she does have pain with urination, but denies any other palliative or provocative factors. She does endorse chills, but states that she also has runny nose, sore throat, and productive cough that started on Saturday. This morning she noticed shortness of breath, and states that it worsens with activity. She states a couple times over the weekend she had chest pain that s he describes as a sharp chest pain, but states that she does not have chest pain now. She denies any other symptoms at this time. Related Data Home Medications Medication Instructions Recorded Confirmed multivit [id number] 1 tab PO DAILY 07/15/21 10/29/22 [Hair, Skin and Nails Advanced] trazodone 100 mg tablet 100 mg PO HSP PRN insomnia 08/22/21 10/29/22 acyclovir 400 mg tablet 1 tab PO BID 09/21/21 10/29/22 cholecalciferol (vitamin D3) 50 50 mcg PO DAILY 12/04/21 10/29/22 mcg (2,000 unit) capsule (Vitamin D3) insulin aspart U-100 100 unit/mL See Protocol subcut ACHS 04/23/22 10/29/22 (3 mL) subcutaneous pen (Novolog FlexPen U-100 Insulin aspart) blood sugar diagnostic (True 08/21/22 10/29/22 Metrix Glucose Test Strip) levothyroxine 125 mcg tablet 1 tab PO QAM 08/21/22 10/29/22 ketoconazole 2 % shampoo 1 applic topical DAILY 10/14/22 10/29/22 hyoscyamine sulfate 0.125 mg 0.125 mg sublingual Q6HP PRN 10/15/22 10/29/22 disintegrating tablet muscle spasm tramadol 50 mg tablet 50 - 100 mg PO Q6HP PRN pain 10/16/22 10/29/22 nitrofurantoin 1 cap PO BID 10/29/22 10/29/22 monohydrate/macrocrystals 100 mg capsule Previous Rx's Medication Instructions Recorded methocarbamol 500 mg tablet 500 mg PO TIDP PRN Muscle Spasm 05/08/22 #30 tabs insulin degludec 100 unit/mL 20 unit (0.2 mL) subcut BID #10 mL 08/29/22 subcutaneous solution (Tresiba U-100 Insulin) nitrofurantoin 1 cap PO Q12H IFAbx Urinary Tract 10/26/22 monohydrate/macrocrystals 100 mg Infection 5 days #10 caps capsule (Macrobid) Allergies Allergy/AdvReac Type Severity Reaction Status Date / Time cephalexin [From Keflex] Allergy Intermediate Swelling Verified 08/15/22 20:56 lidocaine Allergy Intermediate Blister Verified 08/15/22 20:56 Penicillins Allergy Mild Rash Verified 08/15/22 20:56 Anistreplase [From Eminase] Allergy Unknown UNKNOWN Verified 08/15/22 20:56 fenugreek Allergy Unknown UNKNOWN Verified 08/15/22 20:56 codeine AdvReac Mild Itching Verified 08/15/22 20:56 Erythromycin Base AdvReac Mild Itching Verified 08/15/22 20:56 Nortriptyline AdvReac Mild Nausea Verified 08/15/22 20:56 promethazine AdvReac Mild Fainting Verified 08/15/22 20:56 trulicity AdvReac Intermediate Other Uncoded 12/04/21 06:40 Review of Systems ROS ROS Narrative: Narrative: Constitutional: Denies fever or weakness Eyes: Denies eye pain or vision change ENT ED: Reports rhinorrhea; Denies throat pain Cardiovascular: Denies chest pain, dyspnea on exertion, orthopnea or edema Respiratory: Reports shortness of breath; Denies cough Gastrointestinal: Reports abdominal pain and nausea; Denies vomiting, diarrhea, constipation, hematochezia or melena Genitourinary: Reports dysuria Musculoskeletal: Denies back pain or myalgia Integumentary: Denies rash or lesions Neurological: Denies headache, weakness, numbness, confusion, abnormal gait or dizziness Endocrine: Denies fatigue or polyuria Hematological/Lymphatic: Denies easy bleeding or easy bruising PFSH Narrative Patient History Narrative: Narrative: Medical/Surgical/Family History All Active Problems (Updated 10/30/22 @ 13:43 by Wiley Patel MD) Hypoxemia (Acute) Acute viral syndrome (Acute) Hypokalemia (Acute) Left renal mass (Acute) Transaminitis (Acute) Septic shock (Acute) Clinical sepsis (Acute) DKA, type 2 (Acute) Essential hypertension (Acute) Mixed dyslipidemia (Acute) Hyperkalemia (Acute) Compression fracture of body of thoracic vertebra (Acute) Pain in rib (Acute) Hyperglycemia due to type 2 diabetes mellitus (Acute) Chronic pain syndrome (Acute) DKA, type 2 (Acute) Hypoglycemia (Acute) DKA (diabetic ketoacidosis) (Acute) Acute hyponatremia (Acute) Acute hyperkalemia (Acute) Acidosis, lactic (Acute) Metabolic acidosis (Acute) Blood in urine (Chronic) Diabetic keto-acidosis (Chronic) Pseudohyponatremia (Chronic) DKA (diabetic ketoacidosis) (Chronic) Hypomagnesemia (Chronic) Generalized weakness (Chronic) Acute dehydration (Chronic) Diabetic ketosis (Chronic) Acute dyspnea (Chronic) Obstructive sleep apnea (Chronic) DKA (diabetic ketoacidosis) (Chronic) Vulvovaginitis due to yeast (Chronic) Sleepwalking (Chronic) REM sleep behavior disorder (Chronic) Hypersomnia (Chronic) Snoring (Chronic) Tremor (Chronic) Neurofibromatosis 2 (Chronic) Trigger finger (Chronic) Sleep disturbance (Chronic) Arthralgia (Chronic) Pancreatitis (Chronic) Macular degeneration (Chronic) Hepatitis A (Chronic) Glaucoma (Chronic) Fibromyalgia (Chronic) DDD (degenerative disc disease), cervical (Chronic) Diabetic retinopathy (Chronic) Opioid dependence (Chronic) Stress (Chronic) Hard of hearing (Chronic) Multiple environmental allergies (Chronic) Fracture of lumbar spine (Chronic) Compression fracture of lumbosacral spine (Chronic) Abdominal pain (Chronic) Chronic pancreatitis (Chronic) Liver mass (Chronic) Cirrhosis of liver (Chronic) Constipation (Chronic) Neuropathy (Chronic) Chronic pain (Chronic) Essential tremor (Chronic) Bimalleolar ankle fracture (Chronic) Chronic bronchitis with acute exacerbation (Chronic) Dehydration (Chronic) Epistaxis (Chronic) Hypoxia (Chronic) Anterior epistaxis (Chronic) Candidiasis of mouth (Chronic) DKA (diabetic ketoacidosis) (Chronic) Conjunctivitis (Chronic) Bronchitis (Chronic) Dehiscence of closure of skin (Chronic) Anemia (Chronic) Elevated liver enzymes (Chronic) 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) Radiculopathy, sacral and sacrococcygeal region (Chronic) Radiculopathy, lumbosacral region (Chronic) Insomnia (Chronic) Levator syndrome (Chronic) Sacrococcygeal pain (Chronic) History of surgery (Chronic) Hypothyroidism (Chronic) Chronic bronchitis (Chronic) 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) Depression (Chronic) Anxiety (Chronic) Hypertension (Chronic) Osteoporosis (Chronic) Rectal pain (Chronic) Low back pain (Chronic) Pain in thoracic spine (Chronic) Age-related osteoporosis with current pathological fracture, vertebra(e), initial encounter for fracture (Chronic) Medical History Abdominal pain Acute exacerbation of chronic obstructive airways disease Age-related osteoporosis with current pathological fracture, vertebra(e), initial encounter for fracture Anemia Anterior epistaxis Anxiety Arthralgia Bilateral primary osteoarthritis of hip Bimalleolar ankle fracture Blood in urine Bronchitis Candidiasis of mouth Chronic bronchitis with acute exacerbation Chronic pain Chronic pancreatitis Cirrhosis of liver Compression fracture of lumbosacral spine Conjunctivitis Constipation DDD (degenerative disc disease), cervical Dehiscence of closure of skin Dehydration Depression Diabetic retinopathy DKA (diabetic ketoacidosis) Elevated liver enzymes Epistaxis Essential tremor Fibromyalgia Fracture of lumbar spine Glaucoma Hard of hearing Hepatitis A Hyperglycemia due to type 2 diabetes mellitus Hypersomnia Hypertension Hypothyroidism Hypoxia Insomnia Levator syndrome Lipomatosis Liver mass Low back pain Macular degeneration Multiple environmental allergies Neurofibromatosis 2 Neuropathy Obstructive sleep apnea Opioid dependence Osteoporosis Pain in thoracic spine Pancreatitis Radiculopathy, lumbosacral region Radiculopathy, sacral and sacrococcygeal region Rectal pain REM sleep behavior disorder Sacrococcygeal pain Sleep disturbance Sleepwalking Snoring Stress Tremor Trigger finger Surgical History History of appendectomy (~1970) History of arthroplasty of right ankle (~2017) History of cataract surgery (~2003) History of cholecystectomy History of colonoscopy (~06/26/18) History of decompression of median nerve (~2003) History of dilation and curettage History of eye surgery (~2005) Glaucoma History of hand surgery (~2003) Release of trigger finger, right History of left breast biopsy (~2005) History of oophorectomy History of surgery Vertebroplasty T12 w/sed 09/28/19 History of surgery retinopathy laser Stereotactic destruction of lesion using gamma radiation-2004 History of surgery on wrist History of tonsillectomy and adenoidectomy (~1970) Family History Mother Heart disease Fibromyalgia Father Malignant melanoma Malignant tumor of prostate Leukemia Social History Smoking Status: Never smoker Alcohol Intake Frequency: does not drink Substance Use: does not use Exam Narrative Narrative: Narrative: General General appearance: Present alert and in no apparent distress; Absent anxious, appears intoxicated or sleepy Head Head: Present atraumatic and normocephalic Eye Eye: Present EOMI; Absent scleral icterus or nystagmus ENT ENT: Present mucous membranes moist; Absent nasal congestion Neck Neck: Present full ROM and trachea midline Chest Chest: Present normal inspection and symmetric chest wall rise Respiratory Respiratory: Present normal lung sounds bilaterally; Absent respiratory distress or accessory muscle use Cardiovascular Cardiovascular: Present regular rate, normal rhythm and normal heart sounds Adbominal Abdominal: Present soft, tenderness, guarding and normal bowel sounds; Absent distention, rebound or rigidity Extremities Extremities: Present normal inspection and full ROM; Absent pedal edema or pretibial edema Back Back: Present normal inspection and full ROM; Absent CVA tenderness (R) or CVA tenderness (L) Neurological Neurological: Present alert and oriented X3 Psychiatric Psychiatric: Present normal affect and normal mood Skin Skin: Present warm (WNL), dry and normal color Course Vital Signs Vital signs: Vital Signs Temperature 101.2 F H 10/29/22 09:35 Pulse Rate 96 H 10/29/22 09:35 Respiratory Rate 19 10/29/22 09:35 Blood Pressure 138/57 10/29/22 09:35 Pulse Oximetry (%) 93 10/29/22 09:35 Oxygen Delivery Method Room Air 10/29/22 09:35 Temperature 98.1 F 10/30/22 07:26 Pulse Rate 70 10/30/22 07:26 Respiratory Rate 12 10/30/22 07:26 Blood Pressure 121/63 10/30/22 07:26 Pulse Oximetry (%) 99 10/30/22 07:26 Oxygen Delivery Method Room Air 10/30/22 07:26 Oxygen Flow Rate (L/min) 2 10/29/22 15:24 MDM MDM Narrative Medical decision making narrative: Narrative: Patient is a 77-year-old female with a complex medical history who presents to the emergency department due to abdominal pain and concern for worsening UTI. Differential diagnoses include SBO, pancreatitis, gastroenteritis, colitis, and viral infection. Patient's influenza/COVID swab is negative. Her labs overall are reassuring. CT scan does not show any acute processes that would explain her symptoms. During patient's evaluation her oxygen saturation was dropping into the 80s. She does not use oxygen at home. We do not have an explanation on chest x-ray or in labs for this drop in O2 saturation. Given her hypoxemia I have spoken to Dr. Borges who has agreed to see and evaluate patient for admission. Lab Data 10/29/22 09:53 Labs: Lab Results 10/29/22 10/29/22 10/29/22 Range/Units 09:48 09:53 09:53 WBC 10.7 (4.5-11.0) K/mcL RBC 3.89 (3.59-5.38) M/mcL Hgb 11.4 (11.2-15.7) g/dL Hct 34.5 (34.1-44.9) % POC Hct 36.0 (36-48) MCV 88.7 (80.0-100.0) fL MCH 29.3 (26.0-34.0) pg MCHC 33.0 (31.0-36.0) g/dL RDW 14.1 (11.5-14.5) % Plt Count 138 L (140-440) K/mcL MPV 10.9 (8.8-12.5) fL Immature Gran % (Auto) 0.4 (0.0-0.5) % Neut % (Auto) 92.0 H (38.0-78.0) % Lymph % (Auto) 3.0 L (15.5-49.0) % Wilcox % (Auto) 4.0 (1.0-12.0) % Eos % (Auto) 0.3 (0.0-7.0) % Baso % (Auto) 0.3 (0.0-2.0) % Lymph # (Auto) 0.32 L (1.50-4.80) K/mcL [place] # (Auto) 0.43 (0.10-0.90) K/mcL Eos # (Auto) 0.03 (0.00-0.70) K/mcL Baso # (Auto) 0.03 (0.00-0.30) K/mcL Seg Neutrophils % (38-78) % Band Neutrophils % (0-10) % Lymphocytes % (15-49) % Monocytes % (Manual) (1-12) % Immature Gran # 0.04 (0.00-0.05) K/mcl Absolute Neutrophils 9.83 H (1.80-8.00) K/mcL Reactive Lymphocytes (0-2) % Platelet Estimate (Normal) RBC Morphology (Normal) D-Dimer (0.27-0.50) ug/mL POC Sodium 135 (133-145) POC Potassium 3.7 (3.3-5.1) POC Chloride 98 (96-108) POC Total CO2 26.0 (22-30) POC BUN 18 (6-20) POC Creatinine 0.6 (0.6-1.2) POC Glucose 533 H* (70-105) POC WB Ioniz Calcium 1.04 L (1.16-1.32) Phosphorus (2.5-4.5) mg/dL Magnesium (1.6-2.5) mg/dL Total Bilirubin 0.6 (0.1-1.0) mg/dL Direct Bilirubin < 0.2 (0-0.3) mg/dL AST 137 H (<32) U/L ALT 62 H (<40) U/L Alkaline Phosphatase 112 (39-117) U/L C-Reactive Protein (0.03-0.80) mg/dL Total Protein 6.1 (5.9-8.4) gm/dL Albumin 3.7 (3.2-5.2) gm/dL Globulin 2.4 (2.2-3.7) gm/dL Lipase 17 (7-60) U/L Procalcitonin (<0.10) ng/mL Urine Color Urine Appearance (Clear) Urine pH (5.0-9.0) Ur Specific [place] (1.000-1.035) Urine Protein (Negative) mg/dL Urine Glucose (UA) (Negative) mg/dL Urine Ketones (Negative) mg/dL Urine Occult Blood (Negative) vicki/mcL Urine Nitrate (Negative) Urine Bilirubin (Negative) mg/dL Urine Urobilinogen mg/dL Ur Leukocyte Esterase (Negative) /uL Urine RBC (0-3) /hpf Urine WBC (0-4) /hpf Ur Squamous Epith Cells (0-4) /hpf Urine Bacteria (0) /hpf Hyaline Casts (0-2) /lph Urine Mucus (None) /hpf Ur Culture Indicated? Ur Strep pneumoniae Ag (Negative) POC Troponin I (0.00-0.08) 10/29/22 10/29/22 10/29/22 Range/Units 09:53 09:53 09:53 WBC (4.5-11.0) K/mcL RBC (3.59-5.38) M/mcL Hgb (11.2-15.7) g/dL Hct (34.1-44.9) % POC Hct (36-48) MCV (80.0-100.0) fL MCH (26.0-34.0) pg MCHC (31.0-36.0) g/dL RDW (11.5-14.5) % Plt Count (140-440) K/mcL MPV (8.8-12.5) fL Immature Gran % (Auto) (0.0-0.5) % Neut % (Auto) (38.0-78.0) % Lymph % (Auto) (15.5-49.0) % Wilcox % (Auto) (1.0-12.0) % Eos % (Auto) (0.0-7.0) % Baso % (Auto) (0.0-2.0) % Lymph # (Auto) (1.50-4.80) K/mcL [place] # (Auto) (0.10-0.90) K/mcL Eos # (Auto) (0.00-0.70) K/mcL Baso # (Auto) (0.00-0.30) K/mcL Seg Neutrophils % 83 H (38-78) % Band Neutrophils % 10 (0-10) % Lymphocytes % 3 L (15-49) % Monocytes % (Manual) 3 (1-12) % Immature Gran # (0.00-0.05) K/mcl Absolute Neutrophils (1.80-8.00) K/mcL Reactive Lymphocytes 1 (0-2) % Platelet Estimate Normal (Normal) RBC Morphology Normal (Normal) D-Dimer (0.27-0.50) ug/mL POC Sodium (133-145) POC Potassium (3.3-5.1) POC Chloride (96-108) POC Total CO2 (22-30) POC BUN (6-20) POC Creatinine (0.6-1.2) POC Glucose (70-105) POC WB Ioniz Calcium (1.16-1.32) Phosphorus (2.5-4.5) mg/dL Magnesium (1.6-2.5) mg/dL Total Bilirubin (0.1-1.0) mg/dL Direct Bilirubin (0-0.3) mg/dL AST (<32) U/L ALT (<40) U/L Alkaline Phosphatase (39-117) U/L C-Reactive Protein 0.90 H (0.03-0.80) mg/dL Total Protein (5.9-8.4) gm/dL Albumin (3.2-5.2) gm/dL Globulin (2.2-3.7) gm/dL Lipase (7-60) U/L Procalcitonin 0.39 H (<0.10) ng/mL Urine Color Urine Appearance (Clear) Urine pH (5.0-9.0) Ur Specific [place] (1.000-1.035) Urine Protein (Negative) mg/dL Urine Glucose (UA) (Negative) mg/dL Urine Ketones (Negative) mg/dL Urine Occult Blood (Negative) vicki/mcL Urine Nitrate (Negative) Urine Bilirubin (Negative) mg/dL Urine Urobilinogen mg/dL Ur Leukocyte Esterase (Negative) /uL Urine RBC (0-3) /hpf Urine WBC (0-4) /hpf Ur Squamous Epith Cells (0-4) /hpf Urine Bacteria (0) /hpf Hyaline Casts (0-2) /lph Urine Mucus (None) /hpf Ur Culture Indicated? Ur Strep pneumoniae Ag (Negative) POC Troponin I (0.00-0.08) 10/29/22 10/29/22 10/29/22 Range/Units 09:53 10:35 10:35 WBC (4.5-11.0) K/mcL RBC (3.59-5.38) M/mcL Hgb (11.2-15.7) g/dL Hct (34.1-44.9) % POC Hct (36-48) MCV (80.0-100.0) fL MCH (26.0-34.0) pg MCHC (31.0-36.0) g/dL RDW (11.5-14.5) % Plt Count (140-440) K/mcL MPV (8.8-12.5) fL Immature Gran % (Auto) (0.0-0.5) % Neut % (Auto) (38.0-78.0) % Lymph % (Auto) (15.5-49.0) % Wilcox % (Auto) (1.0-12.0) % Eos % (Auto) (0.0-7.0) % Baso % (Auto) (0.0-2.0) % Lymph # (Auto) (1.50-4.80) K/mcL Wilcox # (Auto) (0.10-0.90) K/mcL Eos # (Auto) (0.00-0.70) K/mcL Baso # (Auto) (0.00-0.30) K/mcL Seg Neutrophils % (38-78) % Band Neutrophils % (0-10) % Lymphocytes % (15-49) % Monocytes % (Manual) (1-12) % Immature Gran # (0.00-0.05) K/mcl Absolute Neutrophils (1.80-8.00) K/mcL Reactive Lymphocytes (0-2) % Platelet Estimate (Normal) RBC Morphology (Normal) D-Dimer (0.27-0.50) ug/mL POC Sodium (133-145) POC Potassium (3.3-5.1) POC Chloride (96-108) POC Total CO2 (22-30) POC BUN (6-20) POC Creatinine (0.6-1.2) POC Glucose (70-105) POC WB Ioniz Calcium (1.16-1.32) Phosphorus 2.9 (2.5-4.5) mg/dL Magnesium 1.4 L (1.6-2.5) mg/dL Total Bilirubin (0.1-1.0) mg/dL Direct Bilirubin (0-0.3) mg/dL AST (<32) U/L ALT (<40) U/L Alkaline Phosphatase (39-117) U/L C-Reactive Protein (0.03-0.80) mg/dL Total Protein (5.9-8.4) gm/dL Albumin (3.2-5.2) gm/dL Globulin (2.2-3.7) gm/dL Lipase (7-60) U/L Procalcitonin (<0.10) ng/mL Urine Color Yellow Urine Appearance Clear (Clear) Urine pH 6.0 (5.0-9.0) Ur Specific [place] 1.010 (1.000-1.035) Urine Protein Negative (Negative) mg/dL Urine Glucose (UA) >=1000 A (Negative) mg/dL Urine Ketones 40 A (Negative) mg/dL Urine Occult Blood Negative (Negative) vicki/mcL Urine Nitrate Negative (Negative) Urine Bilirubin Negative (Negative) mg/dL Urine Urobilinogen Normal mg/dL Ur Leukocyte Esterase Negative (Negative) /uL Urine RBC 1 (0-3) /hpf Urine WBC 2 (0-4) /hpf Ur Squamous Epith Cells 1 (0-4) /hpf Urine Bacteria None (0) /hpf Hyaline Casts 6 H (0-2) /lph Urine Mucus Few A (None) /hpf Ur Culture Indicated? No Ur Strep pneumoniae Ag Negative (Negative) POC Troponin I (0.00-0.08) 10/29/22 10/29/22 Range/Units 10:49 11:51 WBC (4.5-11.0) K/mcL RBC (3.59-5.38) M/mcL Hgb (11.2-15.7) g/dL Hct (34.1-44.9) % POC Hct (36-48) MCV (80.0-100.0) fL MCH (26.0-34.0) pg MCHC (31.0-36.0) g/dL RDW (11.5-14.5) % Plt Count (140-440) K/mcL MPV (8.8-12.5) fL Immature Gran % (Auto) (0.0-0.5) % Neut % (Auto) (38.0-78.0) % Lymph % (Auto) (15.5-49.0) % Wilcox % (Auto) (1.0-12.0) % Eos % (Auto) (0.0-7.0) % Baso % (Auto) (0.0-2.0) % Lymph # (Auto) (1.50-4.80) K/mcL [place] # (Auto) (0.10-0.90) K/mcL Eos # (Auto) (0.00-0.70) K/mcL Baso # (Auto) (0.00-0.30) K/mcL Seg Neutrophils % (38-78) % Band Neutrophils % (0-10) % Lymphocytes % (15-49) % Monocytes % (Manual) (1-12) % Immature Gran # (0.00-0.05) K/mcl Absolute Neutrophils (1.80-8.00) K/mcL Reactive Lymphocytes (0-2) % Platelet Estimate (Normal) RBC Morphology (Normal) D-Dimer 0.68 H (0.27-0.50) ug/mL POC Sodium (133-145) POC Potassium (3.3-5.1) POC Chloride (96-108) POC Total CO2 (22-30) POC BUN (6-20) POC Creatinine (0.6-1.2) POC Glucose (70-105) POC WB Ioniz Calcium (1.16-1.32) Phosphorus (2.5-4.5) mg/dL Magnesium (1.6-2.5) mg/dL Total Bilirubin (0.1-1.0) mg/dL Direct Bilirubin (0-0.3) mg/dL AST (<32) U/L ALT (<40) U/L Alkaline Phosphatase (39-117) U/L C-Reactive Protein (0.03-0.80) mg/dL Total Protein (5.9-8.4) gm/dL Albumin (3.2-5.2) gm/dL Globulin (2.2-3.7) gm/dL Lipase (7-60) U/L Procalcitonin (<0.10) ng/mL Urine Color Urine Appearance (Clear) Urine pH (5.0-9.0) Ur Specific [place] (1.000-1.035) Urine Protein (Negative) mg/dL Urine Glucose (UA) (Negative) mg/dL Urine Ketones (Negative) mg/dL Urine Occult Blood (Negative) vicki/mcL Urine Nitrate (Negative) Urine Bilirubin (Negative) mg/dL Urine Urobilinogen mg/dL Ur Leukocyte Esterase (Negative) /uL Urine RBC (0-3) /hpf Urine WBC (0-4) /hpf Ur Squamous Epith Cells (0-4) /hpf Urine Bacteria (0) /hpf Hyaline Casts (0-2) /lph Urine Mucus (None) /hpf Ur Culture Indicated? Ur Strep pneumoniae Ag (Negative) POC Troponin I < 0.02 (0.00-0.08) ED POC Tests ED POC Tests: SHAHID - Influenza A Negative SHAHID - Influenza B Negative SHAHID - SARS Antigen Negative EKG Data EKG #1: EKG attestation: Yes I reviewed and interpreted this EKG. EKG results narrative: Normal sinus rhythm with a rate of 93, normal axis, UT 157, QRS of 83, QTc of 467, T wave flattening in leads I, II, III, aVL, aVF, V5, and V6, in absence of ST elevation or depression. Discharge Plan Patient/Caregiver Discharge Instructions Pt seen by COLLECTIONS MANAGER/PA only: No Clinical Impression: Hypoxemia, Acute viral syndrome Patient Disposition: Xfer As Inpt ([facility]) Condition: Fair Discharge Date/Time: 10/29/22 14:10
[2022-10-29] MEDS ORDERED: ONDANSETRON 4 MG/2 ML VIAL IV ONE (09:52)
[2022-10-29] MEDS ORDERED: morphine 4 MG/ML VIAL IV ONE (09:52)
[2022-10-29] MEDS ORDERED: 0.9 % SODIUM CHLORIDE 500 ML IV ONE (09:52)
[2022-10-29 09:57] LABS: POC Calcium, Ionized 1.04 (1.16-1.32); POC Creatinine 0.6 (0.6-1.2); POC Potassium 3.7 (3.3-5.1)
[2022-10-29] MEDS ORDERED: 0.9 % SODIUM CHLORIDE 1,000 ML IV ONE (10:00)
[2022-10-29 10:35] LABS: Basophils # (Auto) 0.03 K/mcL (0.00-0.30); Basophils % (Auto) 0.3 % (0.0-2.0); Eosinophils # (Auto) 0.03 K/mcL (0.00-0.70); Eosinophils % (Auto) 0.3 % (0.0-7.0); Hematocrit 34.5 % (34.1-44.9); Hemoglobin 11.4 g/dL (11.2-15.7); Lymphocytes # (Auto) 0.32 K/mcL (1.50-4.80); Mean Cell Volume 88.7 fL (80.0-100.0); Mean Platelet Volume 10.9 fL (8.8-12.5); Monocytes # (Auto) 0.43 K/mcL (0.10-0.90); Platelet Count 138 K/mcL (140-440); RBC 3.89 M/mcL (3.59-5.38); Red Cell Distribution Width 14.1 % (11.5-14.5); WBC 10.7 K/mcL (4.5-11.0)
--- NOTE | 2022-10-29 10:38 | XRay Report ---
CLINICAL INFORMATION: Cough and shortness of breath COMPARISON: 08/21/2022 TECHNIQUE: Portable FINDINGS: The heart size, mediastinum and pulmonary vessels are unremarkable. The lungs are clear. There are no effusions. The bones and soft tissues are within normal limits. IMPRESSION: Normal chest. Interpreted and Authenticated by: Will Brito 10/29/22
[2022-10-29 10:56] LABS: ALT/SGPT 62 U/L (<40); AST/SGOT 137 U/L (<32); Albumin 3.7 gm/dL (3.2-5.2); Alkaline Phosphatase 112 U/L (39-117); Bilirubin,Direct < 0.2 mg/dL (0-0.3); Bilirubin,Total 0.6 mg/dL (0.1-1.0); Globulin 2.4 gm/dL (2.2-3.7)
--- NOTE | 2022-10-29 11:01 | Cat Scan Report ---
CLINICAL INFORMATION: Abdomen pain COMPARISON: Abdomen and pelvic CT 02/25/2018 and 08/25/2022 TECHNIQUE: Following enteric contrast, 80 cc of Isovue-370 were injected intravenously, and 60 seconds later, 0.625 mm helical slices were obtained from the mid heart through the subtrochanteric regions. Following reconstruction, 2.5 mm sagittal, coronal and axial reformatted images were processed and reviewed at bone, lung and soft tissue windows. Five minutes later, 0.625 mm helical slices were obtained from the mid heart through the kidneys and viewed at soft tissue windows.The exam was performed using radiation dose optimization techniques including, but not limited to, automated exposure control, adjustment of the mA and/or kV according to patient size and use of iterative reconstruction technique. FINDINGS: The lung bases are clear. No effusions. The visualized heart is normal size with extremely heavy calcific plaque in the coronary arteries-as previously seen. There is also heavy calcification mitral annulus. Abdominal images show the gallbladder is surgically absent. There is moderate dilatation of the intrahepatic, common hepatic and common bile ducts. The common bile duct is 14 mm. Presumably, patient has post cholecystomy papillary stenosis. There is no mass or stone in the ampullary region. There are several low-attenuation pancreatic lesions: 12 mm in the uncinate process 5 mm the pancreatic head and 12 mm in the pancreatic body. There are unchanged from most recent exam likely represent cysts although IPMN is not excluded. The pancreatic duct is normal. Both adrenal glands, spleen and aorta. The splenic vein is diminutive and there are splenic varices as previously seen. There is no free air, free fluid or adenopathy. Pelvic images show normal urinary bladder. Uterus and both ovaries are surgically absent. The stomach, small and large bowel are grossly normal. The appendix is surgically absent. Bone windows mild chronic T8, T9 and T12 chronic compression fractures with severe T12 compression fracture treated kyphoplasty. No radiographic change. Moderate diffuse osteoporosis noted. She likely fibrosis within Camper's fascia of the lower abdominal wall has been stable since 2018. IMPRESSION: 1. No cause identified for acute abdominal pain. 2. Moderate dilatation of the common bile duct which has progressed modestly since the 2018 CT. Findings suspicious for post cholecystomy papillary stenosis. Consider GI referral 3. Scattered low-attenuation lesions in the pancreatic head and body are unchanged from most recent exam but show a slow increase in size in 2018. Simple cysts are suspected, although IPMN not excluded. 4. Heavy calcific plaque in the coronary arteries. There is also calcification mitral valve. 5. Diminutive splenic vein with enlarged splenic varices stable. 6. Moderate diffuse osteoporosis with osteoarthritic chronic compression fractures in the thoracic and lumbar spine-stable Interpreted and Authenticated by: Will Brito 10/29/22
[2022-10-29 12:02] LABS: Appearance,Urine CLEAR (Clear); Bilirubin,Urine NEGATIVE (Negative); Color,Urine YELLOW; Culture Indicated,Urine No; Glucose,Urine (UA) >=1000 mg/dL (Negative); Ketones,Urine 40 mg/dL (Negative); Leukocyte Esterase,Urine NEGATIVE /uL (Negative); Mucus,Urine FEW /hpf; Nitrate,Urine NEGATIVE (Negative); Protein,Urine NEGATIVE (Negative); Urine Blood NEGATIVE ery/mcL (Negative); Urine Hyaline Cast 6 /lph (0-2); Urine RBC 1 /hpf (0-3); Urine Squamous Epithelial Cell 1 /hpf (0-4); Urine WBC 2 /hpf (0-4); Urobilinogen,Urine Normal
[2022-10-29] MEDS ORDERED: DEXTROSE 50% 50 ML VIAL IV PRN (12:38)
[2022-10-29] MEDS ORDERED: DEXTROSE 31 GM ORAL.SUSP PO PRN (12:38)
--- NOTE | 2022-10-29 13:12 | Internal Med History&Physical ---
HPI History of Present Illness Patient information: Note initiated : 10/29/22 at 12:47 pm Service Date, if different from initiated Date: [] Patient: Tennille Castillo a 77 y/o F admitted on for UTI, abd pain. Chief Complaint: [] History of present illness: Ms. Castillo is a 77 year old F Patient states she called EMS because she severely weak dizzy and lightheaded and her sugars were high. Patient states that over the past few days she has developed a sore throat with rhinorrhea a productive cough of thick green sputum and chest congestion. She says she felt like she could not get a deep breath Has some mild shortness of breath from that. She also recently treated with UTI and complains of some suprapubic discomfort. She is also complained of fevers and chills. In the ED she was worked up including a CT abdomen pelvis which was unremark able. Urinalysis is unremarkable. She had a D-dimer which was unremarkable after age adjustment. Chest x-ray showed no obvious. Was quite hyperglycemic at 533. She did have a fever of 101.5 as well as tachycardia 95. Her oxygen saturation on room air was consistent at 88% and patient was put on oxygen. She had some mild transaminitis of AST of 137 and ALT of 62. Troponin was negative. Review of Systems: Pertinent positives as above. Denies headache/nausea/vomiting/chest or abdominal pain/diarrhea. Remaining 10 point review of system reviewed negative PHYSICAL EXAM: General: Alert, Awake, No acute Distress Eyes/N/T: EOMI, no scleral icterus, PERRL, dry MM Head/Neck: neck supple, full ROM, normocephalic atraumatic CV: RRR, No murmurs, normal s1/s2 Pulm: Clear b/l, no wheezing/rhonchi/rales, no respiratory distress Abd: soft, nontender, +BS x4 Ext: no clubbing/cyanosis/edema, nontender Neuro: Alert, no focal deficits, moves all extremities, CN 2-12 grossly intact, sensations intact b/l upper/lower Psychiatric: Skin: warm/dry, normal color PFSH PFSH All Active Problems Hypokalemia (Acute) Left renal mass (Acute) Transaminitis (Acute) Septic shock (Acute) Clinical sepsis (Acute) DKA, type 2 (Acute) Essential hypertension (Acute) Mixed dyslipidemia (Acute) Hyperkalemia (Acute) Compression fracture of body of thoracic vertebra (Acute) Pain in rib (Acute) Hyperglycemia due to type 2 diabetes mellitus (Acute) Chronic pain syndrome (Acute) DKA, type 2 (Acute) Hypoglycemia (Acute) DKA (diabetic ketoacidosis) (Acute) Acute hyponatremia (Acute) Acute hyperkalemia (Acute) Acidosis, lactic (Acute) Metabolic acidosis (Acute) Blood in urine (Chronic) Diabetic keto-acidosis (Chronic) Pseudohyponatremia (Chronic) DKA (diabetic ketoacidosis) (Chronic) Hypomagnesemia (Chronic) Generalized weakness (Chronic) Acute dehydration (Chronic) Diabetic ketosis (Chronic) Acute dyspnea (Chronic) Obstructive sleep apnea (Chronic) DKA (diabetic ketoacidosis) (Chronic) Vulvovaginitis due to yeast (Chronic) Sleepwalking (Chronic) REM sleep behavior disorder (Chronic) Hypersomnia (Chronic) Snoring (Chronic) Tremor (Chronic) Neurofibromatosis 2 (Chronic) Trigger finger (Chronic) Sleep disturbance (Chronic) Arthralgia (Chronic) Pancreatitis (Chronic) Macular degeneration (Chronic) Hepatitis A (Chronic) Glaucoma (Chronic) Fibromyalgia (Chronic) DDD (degenerative disc disease), cervical (Chronic) Diabetic retinopathy (Chronic) Opioid dependence (Chronic) Stress (Chronic) Hard of hearing (Chronic) Multiple environmental allergies (Chronic) Fracture of lumbar spine (Chronic) Compression fracture of lumbosacral spine (Chronic) Abdominal pain (Chronic) Chronic pancreatitis (Chronic) Liver mass (Chronic) Cirrhosis of liver (Chronic) Constipation (Chronic) Neuropathy (Chronic) Chronic pain (Chronic) Essential tremor (Chronic) Bimalleolar ankle fracture (Chronic) Chronic bronchitis with acute exacerbation (Chronic) Dehydration (Chronic) Epistaxis (Chronic) Hypoxia (Chronic) Anterior epistaxis (Chronic) Candidiasis of mouth (Chronic) DKA (diabetic ketoacidosis) (Chronic) Conjunctivitis (Chronic) Bronchitis (Chronic) Dehiscence of closure of skin (Chronic) Anemia (Chronic) Elevated liver enzymes (Chronic) 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) Radiculopathy, sacral and sacrococcygeal region (Chronic) Radiculopathy, lumbosacral region (Chronic) Insomnia (Chronic) Levator syndrome (Chronic) Sacrococcygeal pain (Chronic) History of surgery (Chronic) Hypothyroidism (Chronic) Chronic bronchitis (Chronic) 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) Depression (Chronic) Anxiety (Chronic) Hypertension (Chronic) Osteoporosis (Chronic) Rectal pain (Chronic) Low back pain (Chronic) Pain in thoracic spine (Chronic) Age-related osteoporosis with current pathological fracture, vertebra(e), initial encounter for fracture (Chronic) Medical History Abdominal pain Acute exacerbation of chronic obstructive airways disease Age-related osteoporosis with current pathological fracture, vertebra(e), initial encounter for fracture Anemia Anterior epistaxis Anxiety Arthralgia Bilateral primary osteoarthritis of hip Bimalleolar ankle fracture Blood in urine Bronchitis Candidiasis of mouth Chronic bronchitis with acute exacerbation Chronic pain Chronic pancreatitis Cirrhosis of liver Compression fracture of lumbosacral spine Conjunctivitis Constipation DDD (degenerative disc disease), cervical Dehiscence of closure of skin Dehydration Depression Diabetic retinopathy DKA (diabetic ketoacidosis) Elevated liver enzymes Epistaxis Essential tremor Fibromyalgia Fracture of lumbar spine Glaucoma Hard of hearing Hepatitis A Hyperglycemia due to type 2 diabetes mellitus Hypersomnia Hypertension Hypothyroidism Hypoxia Insomnia Levator syndrome Lipomatosis Liver mass Low back pain Macular degeneration Multiple environmental allergies Neurofibromatosis 2 Neuropathy Obstructive sleep apnea Opioid dependence Osteoporosis Pain in thoracic spine Pancreatitis Radiculopathy, lumbosacral region Radiculopathy, sacral and sacrococcygeal region Rectal pain REM sleep behavior disorder Sacrococcygeal pain Sleep disturbance Sleepwalking Snoring Stress Tremor Trigger finger Surgical History History of appendectomy (~1970) History of arthroplasty of right ankle (~2017) History of cataract surgery (~2003) History of cholecystectomy History of colonoscopy (~06/26/18) History of decompression of median nerve (~2003) History of dilation and curettage History of eye surgery (~2005) Glaucoma History of hand surgery (~2003) Release of trigger finger, right History of left breast biopsy (~2005) History of oophorectomy History of surgery Vertebroplasty T12 w/sed 09/28/19 History of surgery retinopathy laser Stereotactic destruction of lesion using gamma radiation-2004 History of surgery on wrist History of tonsillectomy and adenoidectomy (~1970) Family History Mother Heart disease Fibromyalgia Father Malignant melanoma Malignant tumor of prostate Leukemia Social History lives independently: Yes marital status: education level: college occupational status: retired pets and animals: No other: 2 children physical activity: none smoking status: Never smoker alcohol intake frequency: does not drink substance use type: does not use seatbelt use: always working smoke detector in home: Yes carbon monox detector in home: Yes MEDS/ALLERGIES Home Medications and Allergies Home Medications Medication Instructions Recorded Confirmed Type multivit [id number] 1 tab PO DAILY 07/15/21 10/29/22 History [Hair, Skin and Nails Advanced] trazodone 100 mg tablet 100 mg PO HSP PRN insomnia 08/22/21 10/29/22 History acyclovir 400 mg tablet 1 tab PO BID 09/21/21 10/29/22 History cholecalciferol (vitamin D3) 50 50 mcg PO DAILY 12/04/21 10/29/22 History mcg (2,000 unit) capsule (Vitamin D3) insulin aspart U-100 100 unit/mL See Protocol subcut ACHS 04/23/22 10/29/22 History (3 mL) subcutaneous pen (Novolog FlexPen U-100 Insulin aspart) methocarbamol 500 mg tablet 500 mg PO TIDP PRN Muscle Spasm 05/08/22 10/29/22 Rx #30 tabs blood sugar diagnostic (True 08/21/22 10/29/22 History Metrix Glucose Test Strip) levothyroxine 125 mcg tablet 1 tab PO QAM 08/21/22 10/29/22 History insulin degludec 100 unit/mL 20 unit (0.2 mL) subcut BID #10 mL 08/29/22 10/29/22 Rx subcutaneous solution (Tresiba U-100 Insulin) ketoconazole 2 % shampoo 1 applic topical DAILY 10/14/22 10/29/22 History hyoscyamine sulfate 0.125 mg 0.125 mg sublingual Q6HP PRN 10/15/22 10/29/22 History disintegrating tablet muscle spasm tramadol 50 mg tablet 50 - 100 mg PO Q6HP PRN pain 10/16/22 10/29/22 History nitrofurantoin 1 cap PO Q12H IFAbx Urinary Tract 10/26/22 10/29/22 Rx monohydrate/macrocrystals 100 mg Infection 5 days #10 caps capsule (Macrobid) nitrofurantoin 1 cap PO BID 10/29/22 10/29/22 History monohydrate/macrocrystals 100 mg capsule Allergies Allergy/AdvReac Type Severity Reaction Status Date / Time cephalexin [From Keflex] Allergy Intermediate Swelling Verified 08/15/22 20:56 lidocaine Allergy Intermediate Blister Verified 08/15/22 20:56 Penicillins Allergy Mild Rash Verified 08/15/22 20:56 Anistreplase [From Eminase] Allergy Unknown UNKNOWN Verified 08/15/22 20:56 fenugreek Allergy Unknown UNKNOWN Verified 08/15/22 20:56 codeine AdvReac Mild Itching Verified 08/15/22 20:56 Erythromycin Base AdvReac Mild Itching Verified 08/15/22 20:56 Nortriptyline AdvReac Mild Nausea Verified 08/15/22 20:56 promethazine AdvReac Mild Fainting Verified 08/15/22 20:56 trulicity AdvReac Intermediate Other Uncoded 12/04/21 06:40 EXAM Constitutional Vitals: Temp Pulse Resp BP Pulse Ox O2 Del Method O2 Flow Rate 101.2 F H 87 19 126/56 93 Nasal Cannula 2 10/29/22 09:35 10/29/22 11:31 10/29/22 09:35 10/29/22 11:31 10/29/22 11:31 10/29/22 11:31 10/29/22 11:31 DATA Data Completed and Pending Labs: Labs from last 24 hours 10/29/22 10/29/22 10/29/22 11:51 10:49 10:35 WBC RBC Hgb Hct POC Hct MCV MCH MCHC RDW Plt Count MPV Immature Gran % (Auto) Neut % (Auto) Lymph % (Auto) [place] % (Auto) Eos % (Auto) Baso % (Auto) Lymph # (Auto) [place] # (Auto) Eos # (Auto) Baso # (Auto) Immature Gran # Absolute Neutrophils Platelet Estimate RBC Morphology D-Dimer 0.68 H POC Sodium POC Potassium POC Chloride POC Total CO2 POC BUN POC Creatinine POC Glucose POC WB Ioniz Calcium Total Bilirubin Direct Bilirubin AST ALT Alkaline Phosphatase C-Reactive Protein Total Protein Albumin Globulin Lipase Procalcitonin Urine Color Yellow Urine Appearance Clear Urine pH 6.0 Ur Specific [place] 1.010 Urine Protein Negative Urine Glucose (UA) >=1000 A Urine Ketones 40 A Urine Occult Blood Negative Urine Nitrate Negative Urine Bilirubin Negative Urine Urobilinogen Normal Ur Leukocyte Esterase Negative Urine RBC 1 Urine WBC 2 Ur Squamous Epith Cells 1 Urine Bacteria None Hyaline Casts 6 H Urine Mucus Few A Ur Culture Indicated? No POC Troponin I < 0.02 10/29/22 10/29/22 10/29/22 09:53 09:53 09:53 WBC RBC Hgb Hct POC Hct MCV MCH MCHC RDW Plt Count MPV Immature Gran % (Auto) Neut % (Auto) Lymph % (Auto) [place] % (Auto) Eos % (Auto) Baso % (Auto) Lymph # (Auto) [place] # (Auto) Eos # (Auto) Baso # (Auto) Immature Gran # Absolute Neutrophils Platelet Estimate Pending RBC Morphology Pending D-Dimer POC Sodium POC Potassium POC Chloride POC Total CO2 POC BUN POC Creatinine POC Glucose POC WB Ioniz Calcium Total Bilirubin Direct Bilirubin AST ALT Alkaline Phosphatase C-Reactive Protein Pending Total Protein Albumin Globulin Lipase Procalcitonin Pending Urine Color Urine Appearance Urine pH Ur Specific [place] Urine Protein Urine Glucose (UA) Urine Ketones Urine Occult Blood Urine Nitrate Urine Bilirubin Urine Urobilinogen Ur Leukocyte Esterase Urine RBC Urine WBC Ur Squamous Epith Cells Urine Bacteria Hyaline Casts Urine Mucus Ur Culture Indicated? POC Troponin I 10/29/22 10/29/22 10/29/22 09:53 09:53 09:48 WBC 10.7 RBC 3.89 Hgb 11.4 Hct 34.5 POC Hct 36.0 MCV 88.7 MCH 29.3 MCHC 33.0 RDW 14.1 Plt Count 138 L MPV 10.9 Immature Gran % (Auto) 0.4 Neut % (Auto) 92.0 H Lymph % (Auto) 3.0 L [place] % (Auto) 4.0 Eos % (Auto) 0.3 Baso % (Auto) 0.3 Lymph # (Auto) 0.32 L [place] # (Auto) 0.43 Eos # (Auto) 0.03 Baso # (Auto) 0.03 Immature Gran # 0.04 Absolute Neutrophils 9.83 H Platelet Estimate RBC Morphology D-Dimer POC Sodium 135 POC Potassium 3.7 POC Chloride 98 POC Total CO2 26.0 POC BUN 18 POC Creatinine 0.6 POC Glucose 533 H* POC WB Ioniz Calcium 1.04 L Total Bilirubin 0.6 Direct Bilirubin < 0.2 AST 137 H ALT 62 H Alkaline Phosphatase 112 C-Reactive Protein Total Protein 6.1 Albumin 3.7 Globulin 2.4 Lipase 17 Procalcitonin Urine Color Urine Appearance Urine pH Ur Specific [place] Urine Protein Urine Glucose (UA) Urine Ketones Urine Occult Blood Urine Nitrate Urine Bilirubin Urine Urobilinogen Ur Leukocyte Esterase Urine RBC Urine WBC Ur Squamous Epith Cells Urine Bacteria Hyaline Casts Urine Mucus Ur Culture Indicated? POC Troponin I A/P Narrative A/P Narrative: A: *Acute hypoxic respiratory failure: 2/2 early pna not yet obvious on cxr vs acute bronchitis with poor inspiration -on 1-2L NC *Acute Bronchitis: *Sepsis(febrile/tachycardia): 2/2 above *Generalized weakness/deconditioning: *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: and Hyperglycemia 533 on admit -A1c 11.0 * /hypophosphatemia: *CAD: *Hypothyroidism: cont levothyroxine *Chronic pancreatitis: cont home pancreatic enzyme supplements *Hypertriglyceridemia: *chronically elevated LFT's: *Essential tremor: *chr back pain: Plan: -O2 supp and wean off as able -IS/Acapella, prn nebs -check pct/crp/rvp -hold abx until further infectious w/u including BC -f/u chest imaging in AM - -f/u and Replace electrolytes, monitor uop and i/o -basal and SSI -QHS snack -Continue home -Home medication reconciliation -PT/OT -CM for SNF placement -DVT prophylaxis: lovenox CODE STATUS: DNR Time Spent With Patient Time: Total time spent is greater than 50% in coordination of care (as documented) at patient's floor/unit and/or counseling patient: Initial: Total time with patient: 75 - 90 minutes
[2022-10-29] MEDS ORDERED: MAGNESIUM SULFATE 2 GM/50 ML BAG IV ONE (13:33)
[2022-10-29 13:34] LABS: Band Neutrophils % 10 % (0-10); Lymphocytes % 3 % (15-49); Monocytes % (Manual) 3 % (1-12); Platelet Estimate NORMAL (Normal); RBC Morphology NORMAL (Normal); Reactive Lymphocytes 1 % (0-2); Segmented Neutrophils % 83 % (38-78)
[2022-10-29 13:49] LABS: Phosphorous 2.9 mg/dL (2.5-4.5)
[2022-10-29] MEDS ORDERED: ONDANSETRON 4 MG/2 ML VIAL IV PRN (14:20)
[2022-10-29] MEDS ORDERED: POTASSIUM CHLORIDE 40 MEQ in DEXTROSE 5% IN WATER 500 ML IV PRN (14:20)
[2022-10-29] MEDS ORDERED: SENNOSIDES 1 TABLET PO PRN (14:20)
[2022-10-29] MEDS ORDERED: POTASSIUM CHLORIDE 20 MEQ TABLET PO PRN ×2 (14:20)
[2022-10-29] MEDS ORDERED: ACETAMINOPHEN 325 MG TABLET PO PRN (14:20)
[2022-10-29] MEDS ORDERED: 0.9 % SODIUM CHLORIDE 1,000 ML IV SCH (14:20)
[2022-10-29] MEDS ORDERED: IPRATROPIUM/ALBUTEROL 3 ML AMPUL.NEB NEB PRN (14:20)
[2022-10-29] MEDS ORDERED: MAGNESIUM SULFATE 2 GM/50 ML BAG IV PRN (14:20)
[2022-10-29] MEDS ORDERED: POLYETHYLENE GLYCOL 3350 17 GM PACKET PO PRN (14:20)
[2022-10-29] MEDS: LEVOFLOXACIN 750 MG/150 ML BAG IV SCH (14:40)
[2022-10-29] MEDS: 0.9 % SODIUM CHLORIDE 10 ML SYRINGE IV SCH ×2 (14:41→20:39)
[2022-10-29] MEDS ORDERED: HYOSCYAMINE SULFATE 0.125 MG TABLET SL PRN (14:55)
[2022-10-29] MEDS: traMADol 50 MG TABLET PO PRN ×2 (15:06→20:56)
[2022-10-29] MEDS: INSULIN LISPRO 1 UNIT/0.01 ML UNIT SQ SCH ×2 (16:32→20:51)
[2022-10-29] MEDS: DOCUSATE SODIUM 100 MG CAPSULE PO SCH (20:37)
[2022-10-29] MEDS: traZODone HCL 100 MG TABLET PO PRN (20:50)
[2022-10-29] MEDS: METHOCARBAMOL 500 MG TABLET PO PRN (20:50)
[2022-10-29] MEDS: INSULIN GLARGINE, HUMAN 1 UNIT/0.01 ML SQ SCH (20:51)
[2022-10-30] MEDS: 0.9 % SODIUM CHLORIDE 10 ML SYRINGE IV SCH ×3 (04:01→21:01)
[2022-10-30] MEDS: traMADol 50 MG TABLET PO PRN ×2 (05:39→19:02)
[2022-10-30] MEDS: LEVOTHYROXINE 125 MCG TABLET PO SCH (07:07)
[2022-10-30] MEDS: INSULIN LISPRO 1 UNIT/0.01 ML UNIT SQ SCH ×4 (07:13→21:08)
--- NOTE | 2022-10-30 07:22 | Internal Med Progress Note ---
SUBJECTIVE Subjective Patient information: Note initiated : 10/30/22 at 7:19 am Service Date, if different from initiated Date: [] Patient: Tennille Castillo a 77 y/o F admitted on 10/29/22 for UTI, abd pain. Chief Complaint: [] Interval history: History of present illness: Ms. Castillo is a 77 year old F Patient states she called EMS because she severely weak dizzy and lightheaded and her sugars were high. Patient states that over the past few days she has developed a sore throat with rhinorrhea a productive cough of thick green sputum and chest congestion. She says she felt like she could not get a deep breath Has some mild shortness of breath from that. She also recently treated with UTI and complains of some suprapubic discomfort. She is also complained of fevers and chills. In the ED she was worked up including a CT abdomen pelvis which was unremarkable. Urinalysis is unremarkable. She had a D-dimer which was unremarkable after age adjustment. Chest x-ray showed no obvious. Was quite hyperglycemic at 533. She did have a fever of 101.5 as well as tachycardia 95. Her oxygen saturation on room air was consistent at 88% and patient was put on oxygen. She had some mild transaminitis of AST of 137 and ALT of 62. Troponin was neg ative. 10/30 Patient on room air this morning. He still complains of productive cough, shortness of breath. CT chest showed mild interstitial edema and infiltrate right upper lobe suspicious for infection and mild lower lobe infiltrates atelectasis versus infection. Bands at 10% yesterday. Hypomagnesemia noted yesterday evening and replaced. Review of Systems: denies headache/fever/chills/nausea/vomiting/chest or abdominal pain/diarrhea. Otherwise see above. PHYSICAL EXAM: General: Alert, Awake, No acute Distress Eyes/N/T: EOMI, no scleral icterus, Head/Neck: neck supple, full ROM, CV: RRR, No murmurs, Pulm: Clear b/l, no wheezing/rhonchi/rales, no respiratory distress Abd: soft, nontender, +BS x4 Ext: no clubbing/cyanosis/edema, Neuro: Alert, no focal deficits, moves all extremities, sensations intact b/l upper/lower Psychiatric: Skin: warm/dry, normal color Constitutional Vitals: Vital Signs Temp Pulse Resp BP Pulse Ox O2 Del Method O2 Flow Rate 98.1 F 74 12 98/52 90 Room Air 2 10/30/22 03:10 10/30/22 03:10 10/30/22 03:10 10/30/22 03:10 10/30/22 03:10 10/30/22 03:10 10/29/22 15:24 Period Temp Pulse Resp BP Sys/Rosario Pulse Ox O2 Del Method O2 Flow Rate Last 24 Hr 98.1 F-101.2 F 74-96 12-19 85-138/47-87 89-98 Nasal Cannula- Room Air 2-2 Intake and Output 10/29/22 10/30/22 10/30/22 19:59 03:59 11:59 Intake Total 6578 866 4483 Output Total 500 651 Balance 890 -211 1000 Weight 71.169 kg Intake & Output: Intake & Output 10/29/22 10/30/22 10/30/22 19:59 03:59 11:59 Intake Total 6498 505 2839 Output Total 500 651 Balance 890 -211 1000 Weight 71.169 kg Intake: IV 1150 1000 Sodium Chloride 0.9% 1,000 ml @ 1000 1000 75 mls/hr IV .[id number] [facility] Rx#: [id number] Oral 240 440 Output: Void Amount 500 650 # of times incontinent of urine 1 Other: Meal Dinner Percent of Meal Consumed 100% Feeding Ability Independent Urine Appearance Clear Clear Urine Color Yellow Yellow OBJ DATA Labs 10/29/22 09:53 10/30/22 06:13 Labs: Abnormal Lab Results 10/29/22 10/29/22 10/29/22 10:49 10:35 09:53 Plt Count Neut % (Auto) Lymph % (Auto) Lymph # (Auto) Seg Neutrophils % Lymphocytes % Absolute Neutrophils D-Dimer 0.68 H POC Glucose POC WB Ioniz Calcium Magnesium 1.4 L AST ALT C-Reactive Protein Procalcitonin Urine Glucose (UA) >=1000 A Urine Ketones 40 A Hyaline Casts 6 H Urine Mucus Few A 10/29/22 10/29/22 10/29/22 09:53 09:53 09:53 Plt Count Neut % (Auto) Lymph % (Auto) Lymph # (Auto) Seg Neutrophils % 83 H Lymphocytes % 3 L Absolute Neutrophils D-Dimer POC Glucose POC WB Ioniz Calcium Magnesium AST ALT C-Reactive Protein 0.90 H Procalcitonin 0.39 H Urine Glucose (UA) Urine Ketones Hyaline Casts Urine Mucus 10/29/22 10/29/22 10/29/22 09:53 09:53 09:48 Plt Count 138 L Neut % (Auto) 92.0 H Lymph % (Auto) 3.0 L Lymph # (Auto) 0.32 L Seg Neutrophils % Lymphocytes % Absolute Neutrophils 9.83 H D-Dimer POC Glucose 533 H* POC WB Ioniz Calcium 1.04 L Magnesium AST 137 H ALT 62 H C-Reactive Protein Procalcitonin Urine Glucose (UA) Urine Ketones Hyaline Casts Urine Mucus Meds: Medications Acetaminophen (Acetaminophen 325 Mg Tablet) 650 mg PO Q6HP PRN; Protocol PRN Reason: Per Pain Protocol/Fever > 101 Albuterol/Ipratropium (Ipratropium/Albuterol 3 Ml Ampul.Neb) 3 ml NEB Q4HP PRN PRN Reason: Shortness Of Breath Dextrose (Dextrose 50% 50 Ml Vial) 0 ml IV UD PRN PRN Reason: Per Sliding Scale Diagnostic Test (Pha) (Accu-Chek 1 Each Strip) 1 each FS ACHS [facility] Last Admin: 10/30/22 07:07 Dose: 1 each Docusate Sodium (Docusate Sodium 100 Mg Capsule) 100 mg PO BID [facility] Last Admin: 10/29/22 20:37 Dose: 100 mg Enoxaparin Sodium (Enoxaparin 40 Mg/0.4 Ml Syringe) 40 mg SQ DAILY [facility] Glucose (Dextrose 31 Gm Oral.Susp) 15 gm PO PRN PRN PRN Reason: Hypoglycemia Hyoscyamine (Hyoscyamine Sulfate 0.125 Mg Tablet) 0.125 mg SL Q6HP PRN PRN Reason: muscle spasm Levofloxacin (Levaquin) 750 mg in 150 mls @ 100 mls/hr IV Q24H [facility] Last Infusion: 10/29/22 17:04 Dose: Infused Potassium Chloride 40 meq/ (Dextrose) 520 mls @ 130 mls/hr IV UD PRN PRN Reason: Potassium < 3 Magnesium Sulfate (Magnesium Sulfate) 2 gm in 50 mls @ 50 mls/hr IV UD PRN PRN Reason: Magnesium </= 1.6 Insulin Glargine (Insulin Glargine, Human 1 Unit/0.01 Ml) 20 unit SQ BID [facility] Last Admin: 10/29/22 20:51 Dose: 20 units Insulin Human Lispro (Insulin Lispro 1 Unit/0.01 Ml Unit) 0 unit SQ ACHS [facility]; Protocol Last Admin: 10/30/22 07:13 Dose: 18 units Levothyroxine Sodium (Levothyroxine 125 Mcg Tablet) 125 mcg PO QAMAC [facility] Last Admin: 10/30/22 07:07 Dose: 125 mcg Methocarbamol (Methocarbamol 500 Mg Tablet) 500 mg PO TIDP PRN PRN Reason: Muscle Spasm Last Admin: 10/29/22 20:50 Dose: 500 mg Ondansetron HCl (Ondansetron 4 Mg/2 Ml Vial) 4 mg IV Q4HP PRN PRN Reason: Nausea And Vomiting Polyethylene Glycol (Polyethylene Glycol 3350 17 Gm Packet) 17 gm PO DAILYP PRN PRN Reason: Constipation Potassium Chloride (Potassium Chloride 20 Meq Tablet) 40 meq PO UD PRN PRN Reason: Potssium is 3-3.5 Potassium Chloride (Potassium Chloride 20 Meq Tablet) 40 meq PO UD PRN PRN Reason: Potassium < 3 Senna (Sennosides 1 Tablet) 2 tab PO DAILYP PRN PRN Reason: Constipation Sodium Chloride (0.9 % Sodium Chloride 10 Ml Syringe) 10 ml IV Q8 [facility] Last Admin: 10/30/22 04:01 Dose: Not Given Tramadol HCl (Tramadol 50 Mg Tablet) 50 - 100 mg PO Q6HP PRN PRN Reason: Pain Last Admin: 10/30/22 05:39 Dose: 50 mg Trazodone HCl (Trazodone Hcl 100 Mg Tablet) 100 mg PO HSP PRN PRN Reason: insomnia Last Admin: 10/29/22 20:50 Dose: 100 mg A/P Narrative A/P Narrative: A: *Acute hypoxic respiratory failure: 2/2 early pna vs acute bronchitis with poor inspiration -now on room air at rest -CT chest with mild edema, possible pna RUL, atelectasis vs pna lower lobes *PNA: -elevated PCT, strep/flu/rsv/covid neg *Sepsis(febrile/tachycardia): 2/2 above -borderline bandemia *Generalized weakness/deconditioning: *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: and Hyperglycemia 533 on admit -A1c 11.0 *Hypomagnesemia/hypophosphatemia: *CAD: *Hypothyroidism: cont levothyroxine *Chronic pancreatitis: cont home pancreatic enzyme supplements *Hypertriglyceridemia: *chronically elevated LFT's: *Essential tremor: *chr back pain: Plan: -O2 supp and wean off as able -IS/Acapella, prn nebs -trend pct -IV levaquin pending BC/SC -f/u chest imaging -check bnp, ?echo -trend and Replace electrolytes, monitor uop and i/o -basal and SSI, QHS snack -PT/OT -CM for SNF placement -DVT prophylaxis: lovenox CODE STATUS: DNR Time Spent With Patient Time: Total time spent is greater than 50% in coordination of care (as documented) at patient's floor/unit and/or counseling patient: Subsequent: Total time with patient: 50 - 65 Minutes QUALITY Stroke Symptom Onset Unknown: No VTE Deep Vein Thrombosis/Pulmonary Embolism Present on Admission: No
[2022-10-30 07:29] LABS: Basophils # (Auto) 0.03 K/mcL (0.00-0.30); Basophils % (Auto) 0.5 % (0.0-2.0); Eosinophils # (Auto) 0.14 K/mcL (0.00-0.70); Eosinophils % (Auto) 2.3 % (0.0-7.0); Hematocrit 30.4 % (34.1-44.9); Hemoglobin 9.6 g/dL (11.2-15.7); Lymphocytes # (Auto) 0.82 K/mcL (1.50-4.80); Lymphocytes % (Auto) 13.3 % (15.5-49.0); Mean Cell Volume 92.1 fL (80.0-100.0); Mean Corpuscular HGB Conc 31.6 g/dL (31.0-36.0); Mean Platelet Volume 11.1 fL (8.8-12.5); Monocytes # (Auto) 0.26 K/mcL (0.10-0.90); Monocytes % (Auto) 4.2 % (1.0-12.0); Neutrophils % (Auto) 79.2 % (38.0-78.0); Platelet Count 100 K/mcL (140-440); Red Cell Distribution Width 14.3 % (11.5-14.5); WBC 6.2 K/mcL (4.5-11.0)
[2022-10-30 07:43] LABS: ALT/SGPT 42 U/L (<40); AST/SGOT 52 U/L (<32); Albumin 2.9 gm/dL (3.2-5.2); Albumin/Globulin Ratio 1.3 (1.0-2.3); Alkaline Phosphatase 93 U/L (39-117); Bilirubin,Direct < 0.2 mg/dL (0-0.3); Bilirubin,Total 0.3 mg/dL (0.1-1.0); Blood Urea Nitrogen 14 mg/dL (8-23); Calcium 7.8 mg/dL (8.6-10.4); Carbon Dioxide 27 mmol/L (22-30); Chloride 99 mmol/L (96-108); Globulin 2.3 gm/dL (2.2-3.7); Glomerular Filtration Rate 88; Glucose 345 mg/dL (70-105); Lactate Dehydrogenase 202 U/L (135-225); Phosphorous 2.5 mg/dL (2.5-4.5); Triglycerides 90 mg/dL (<150); Uric Acid 3.7 mg/dL (2.5-8.0)
[2022-10-30] MEDS ORDERED: ALBUMIN HUMAN 12.5 GM/50 ML VIAL IV ONE (08:03)
[2022-10-30] MEDS ORDERED: FUROSEMIDE 40 MG/4 ML VIAL IV ONE (08:04)
[2022-10-30] MEDS: INSULIN GLARGINE, HUMAN 1 UNIT/0.01 ML SQ SCH ×2 (08:54→21:08)
[2022-10-30] MEDS: DOCUSATE SODIUM 100 MG CAPSULE PO SCH ×2 (08:54→20:58)
[2022-10-30] MEDS ORDERED: ENOXAPARIN 40 MG/0.4 ML SYRINGE SQ SCH (09:00)
[2022-10-30] MEDS: LEVOFLOXACIN 750 MG/150 ML BAG IV SCH (09:01)
--- NOTE | 2022-10-30 10:36 | EKG ---
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
--- NOTE | 2022-10-30 15:14 | Discharge Summary ---
Discharge Provider Provider IMPORTANT FOLLOW-UP INFORMATION FOR PCP: Patient information: Note initiated : 10/30/22 at 3:12 pm Service Date, if different from initiated Date: [] Patient: Tennille Castillo a 77 y/o F admitted on 10/29/22 for UTI, abd pain. Chief Complaint: [] Date of admission: 10/29/22 14:10 Discharge date: 10/31/22 Primary care physician: OSKAR Carvajal Consults: 10/29/22 Consult to Physician [CONS] Stat Comment: Consulting Provider: Jef Borges Reason For Exam: Physician to Consult COURSE Hospital Course Hospital course: istory of present illness: Ms. Castillo is a 77 year old F Patient states she called EMS because she severely weak dizzy and lightheaded and her sugars were high. Patient states that over the past few days she has developed a sore throat with rhinorrhea a productive cough of thick green sputum and chest congestion. She says she felt like she could not get a deep breath Has some mild shortness of breath from that. She also recently treated with UTI and complains of some suprapubic discomfort. She is also complained of fevers and chills. In the ED she was worked up including a CT abdomen pelvis which was unremark able. Urinalysis is unremarkable. She had a D-dimer which was unremarkable after age adjustment. Chest x-ray showed no obvious. Was quite hyperglycemic at 533. She did have a fever of 101.5 as well as tachycardia 95. Her oxygen saturation on room air was consistent at 88% and patient was put on oxygen. She had some mild transaminitis of AST of 137 and ALT of 62. Troponin was negative. 10/30 Patient on room air this morning. He still complains of productive cough, shortness of breath. CT chest showed mild interstitial edema and infiltrate right upper lobe suspicious for infection and mild lower lobe infiltrates atelectasis versus infection. Bands at 10% yesterday. Hypomagnesemia noted yesterday evening and replaced. 10/31 Patient still has productive cough. Shortness of breath is improving. Patient feeling better. Little wheezy this morning I will give a breathing treatment. Patient doing well and desired to go home. Ambulating on room air. A: *Acute hypoxic respiratory failure: 2/ early pna vs acute bronchitis with poor inspiration *PNA: *Sepsis(febrile/tachycardia): 2/2 above *Generalized weakness/deconditioning: *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: and Hyperglycemia 533 on admit -A1c 11.0 *Hypomagnesemia/hypophosphatemia: *CAD: *Hypothyroidism: cont levothyroxine *Chronic pancreatitis: cont home pancreatic enzyme supplements *Hypertriglyceridemia: *chronically elevated LFT's: *Essential tremor: *chr back pain: Plan: -abx Discharge diagnosis: Acute hypoxic respiratory failure pneumonia sepsis Secondary discharge diagnosis: Generalized weakness poorly controlled diabetes electrolyte disturbance CAD hypothyroidism chronic pancreatitis chronic transaminitis essential tremor chronic back pain Time Spent with Patient Time attestation: Total time spent providing and/or coordinating discharge services: Time spent: Greater than 30 minutes EXAM Constitutional Vitals: Temp Pulse Resp BP Pulse Ox O2 Del Method O2 Flow Rate 98.1 F 70 12 121/63 99 Room Air 2 10/30/22 07:26 10/30/22 07:26 10/30/22 07:26 10/30/22 07:26 10/30/22 07:26 10/30/22 07:26 10/29/22 15:24 Discharge Data Data Completed and Pending Labs on day of discharge: Labs from last 24 hours 10/30/22 10/30/22 10/30/22 08:31 06:13 06:13 WBC 6.2 RBC 3.30 L Hgb 9.6 L Hct 30.4 L MCV 92.1 MCH 29.1 MCHC 31.6 RDW 14.3 Plt Count 100 L MPV 11.1 Immature Gran % (Auto) 0.5 Neut % (Auto) 79.2 H Lymph % (Auto) 13.3 L Richardson % (Auto) 4.2 Eos % (Auto) 2.3 Baso % (Auto) 0.5 Lymph # (Auto) 0.82 L Richardson # (Auto) 0.26 Eos # (Auto) 0.14 Baso # (Auto) 0.03 Immature Gran # 0.03 Absolute Neutrophils 4.87 Sodium 133 Potassium 3.9 Chloride 99 Carbon Dioxide 27 Anion Gap 7.0 L BUN 14 Creatinine 0.6 GFR Calculation 88 Glucose 345 H Uric Acid 3.7 Calcium 7.8 L Phosphorus 2.5 Magnesium 1.7 Total Bilirubin 0.3 Direct Bilirubin < 0.2 GGT 57 H AST 52 H ALT 42 H Alkaline Phosphatase 93 Lactate Dehydrogenase 202 NT-Pro-B Natriuret Pep 1167.0 H Total Protein 5.2 L Albumin 2.9 L Globulin 2.3 Albumin/Globulin Ratio 1.3 Triglycerides 90 Preliminary micro results at discharge 10/29/22 13:27 Blood Culture - Preliminary Blood 10/29/22 13:22 Blood Culture - Preliminary Blood Discharge Plan Patient/Caregiver Discharge Instructions Activity: increase activity as tolerated Diet: Consistent Carbohydrate Prescriptions: New levofloxacin 750 mg tablet 750 mg PO Q24H Qty: 2 0RF Rx Instructions: start on 11/01/2022 Continued nitrofurantoin monohyd/m-cryst [Macrobid] 100 mg capsule 1 cap PO Q12H 5 Days Qty: 10 0RF multivit [id number] [Hair, Skin and Nails Advanced] 1 tab PO DAILY trazodone 100 mg tablet 100 mg PO HSP PRN (Reason: insomnia) acyclovir 400 mg tablet 1 tab PO BID cholecalciferol (vitamin D3) [Vitamin D3] 50 mcg (2,000 unit) Capsule 50 mcg PO DAILY insulin aspart U-100 [Novolog FlexPen U-100 Insulin] 100 unit/mL (3 mL) insulin pen See Protocol subcut ACHS Protocol: Insulin Sliding Scale, High Condition: HUMALOG/NOVALOG SC SLIDING Dose/Route: SCALE Condition: FSBS < 70 Dose/Route: Give 4 Oz juice, or 15gm oral Instruction: Glucose, or 25ml D50W IV if Dose/Route: unable to take PO. Recheck in Instruction: 15 min and repeat if FSBS < 70 Condition: FSBS 71-140 Dose/Route: NO COVERAGE Condition: FSBS 141-170 Dose/Route: 3 UNITS Condition: FSBS 171-200 Dose/Route: 6 UNITS Condition: FSBS 201-250 Dose/Route: 9 UNITS Condition: FSBS 251-300 Dose/Route: 12 UNITS Condition: FSBS 301-350 Dose/Route: 15 UNITS Condition: FSBS 351-400 Dose/Route: 18 UNITS Condition: FSBS > 400 Dose/Route: 20 UNITS; REPEAT Q2H X2 Instruction: CONTINUE FOLLOWING SLIDING Condition: SCALE; IF STILL > 400; CALL Dose/Route: PHYSICIAN methocarbamol 500 mg Tablet 500 mg PO TIDP PRN (Reason: Muscle Spasm) Qty: 30 0RF levothyroxine 125 mcg tablet 1 tab PO QAM (DME) True Metrix Glucose Test Strip Strip 1 strip MISCELLANEOUS QID insulin degludec [Tresiba U-100 Insulin] 100 unit/mL solution 20 unit subcut BID Qty: 10 0RF ketoconazole 2 % shampoo 1 applic topical DAILY hyoscyamine sulfate 0.125 mg tablet,disintegrating 0.125 mg sublingual Q6HP PRN (Reason: muscle spasm) tramadol 50 mg tablet 50 - 100 mg PO Q6HP PRN (Reason: pain) nitrofurantoin monohyd/m-cryst 100 mg capsule 1 cap PO BID Follow Up Plan Follow up with: Jacque Severino FNP [Primary Care Provider] - Patient Disposition: Home Health Service Prognosis: Fair Overall status at discharge: patient is progressing back to baseline Discharge Orders: Discharge Order (Routine); Ordered 10/31/22 Ordered By: Jef GASCA VTE Deep Vein Thrombosis/Pulmonary Embolism Present on Admission: No
[2022-10-30] MEDS: METHOCARBAMOL 500 MG TABLET PO PRN (19:02)
[2022-10-30] MEDS: traZODone HCL 100 MG TABLET PO PRN (23:46)
--- NOTE | 2022-10-31 03:18 | Cat Scan Report ---
CLINICAL INFORMATION: Hypoxia. Cough and shortness of breath COMPARISON: Chest CT 05/06/2022. TECHNIQUE: 0.625 mm helical slices were obtained from the lung apices through the lung bases. Following reconstruction, 2.5 mm sagittal, coronal and axial reformatted images were processed and reviewed at multiple windows and levels. 7 mm MIP reconstructions were obtained through the lungs to optimize nodule detection.The exam was performed using radiation dose optimization techniques including, but not limited to, automated exposure control, adjustment of the mA and/or kV according to patient size and use of iterative reconstruction technique. FINDINGS: Pulmonary parenchymal windows show mild elevation in lung volumes and mild wall thickening of the bronchi suggesting bronchitis or asthma. There is moderate thickening of the interlobular septa within the apical region and the peripheral upper and lower lobes. There is very minimal vague tree-in-bud airspace disease in the posterior peripheral right upper lobe and scattered within the peripheral left upper and both lower lobes. This could indicate developing infection or aspiration. Subsegmental atelectasis seen in both posterior lower lobes. Pleural spaces are unremarkable-no effusions. Mediastinal windows show the heart is grossly normal in size and configuration. Extremely heavy calcific plaque present within the coronary arteries. The central pulmonary arteries are mildly enlarged: noncontrasted main pulmonary artery 3.5 cm in diameter. Thoracic aorta contains plaque, but is normal diameter. Mildly enlarged mediastinal lymph nodes, ranging up to 12 mm in the right peritracheal region, have increased size and number from the comparison examination six months prior. This mild concentric wall thickening the distal esophagus which could indicate peptic disease or other infiltrative pathology. The superior esophagus is mildly dilated. Bones windows show severe T12 compression fracture treated with kyphoplasty. Mild T7 moderate T8 and T9 compression fractures progressed from the previous exam and compatible with osteoporosis. No abnormality seen in the soft tissues the chest wall. Images should superior abdomen show no abnormality. IMPRESSION: 1. Very minimal patchy tree-in-bud airspace disease with mild thickening of the interlobular septa the peripheral upper and lower lobes. This is a nonspecific pattern. Tree-in-bud airspace disease typically indicate infection or or aspiration. 2. Chronic bronchitis 3. Mild enlargement central pulmonary arteries which could indicate pulmonary hypertension. 4. Moderate wall thickening of the distal esophagus suggesting peptic disease or other infiltrative pathology. This would increase the patient's risk for aspiration pneumonia. 5. Very heavy calcific plaque in the coronary arteries. 6. Osteoporotic compression fractures as described Interpreted and Authenticated by: Will Brito 10/31/22
[2022-10-31] MEDS: METHOCARBAMOL 500 MG TABLET PO PRN (05:02)
[2022-10-31] MEDS: traMADol 50 MG TABLET PO PRN (05:02)
[2022-10-31] MEDS: 0.9 % SODIUM CHLORIDE 10 ML SYRINGE IV SCH ×2 (05:03→13:32)
[2022-10-31 06:52] LABS: Hematocrit 34.3 % (34.1-44.9); Hemoglobin 10.8 g/dL (11.2-15.7); Mean Corpuscular HGB Conc 31.5 g/dL (31.0-36.0); Mean Platelet Volume 11.1 fL (8.8-12.5); Platelet Count 118 K/mcL (140-440); RBC 3.73 M/mcL (3.59-5.38); Red Cell Distribution Width 14.1 % (11.5-14.5); WBC 4.8 K/mcL (4.5-11.0)
[2022-10-31] MEDS: LEVOTHYROXINE 125 MCG TABLET PO SCH (07:20)
[2022-10-31] MEDS: INSULIN LISPRO 1 UNIT/0.01 ML UNIT SQ SCH ×2 (07:24→11:36)
--- NOTE | 2022-10-31 07:31 | Internal Med Progress Note ---
SUBJECTIVE Subjective Patient information: Note initiated : 10/31/22 at 7:28 am Service Date, if different from initiated Date: [] Patient: Tennille Castillo a 77 y/o F admitted on 10/29/22 for UTI, abd pain. Chief Complaint: [] Interval history: History of present illness: Ms. Castillo is a 77 year old F Patient states she called EMS because she severely weak dizzy and lightheaded and her sugars were high. Patient states that over the past few days she has developed a sore throat with rhinorrhea a productive cough of thick green sputum and chest congestion. She says she felt like she could not get a deep breath Has some mild shortness of breath from that. She also recently treated with UTI and complains of some suprapubic discomfort. She is also complained of fevers and chills. In the ED she was worked up including a CT abdomen pelvis which was unremarkable. Urinalysis is unremarkable. She had a D-dimer which was unremarkable after age adjustment. Chest x-ray showed no obvious. Was quite hyperglycemic at 533. She did have a fever of 101.5 as well as tachycardia 95. Her oxygen saturation on room air was consistent at 88% and patient was put on oxygen. She had some mild transaminitis of AST of 137 and ALT of 62. Troponin was neg ative. 10/30 Patient on room air this morning. He still complains of productive cough, shortness of breath. CT chest showed mild interstitial edema and infiltrate right upper lobe suspicious for infection and mild lower lobe infiltrates atelectasis versus infection. Bands at 10% yesterday. Hypomagnesemia noted yesterday evening and replaced. 10/31 Patient still has productive cough. Shortness of breath is improving. Patient feeling better. Little wheezy this morning I will give a breathing treatment. Review of Systems: denies headache/fever/chills/nausea/vomiting/chest or abdominal pain/diarrhea. Otherwise see above. PHYSICAL EXAM: General: Alert, Awake, No acute Distress Eyes/N/T: EOMI, no scleral icterus, Head/Neck: neck supple, full ROM, CV: RRR, No murmurs, Pulm: mild wheezing b/l, no rhonchi/rales, no respiratory distress Abd: soft, nontender, +BS x4 Ext: no clubbing/cyanosis/edema, Neuro: Alert, no focal deficits, moves all extremities, sensations intact b/l upper/lower Psychiatric: Skin: warm/dry, normal color Constitutional Vitals: Vital Signs Temp Pulse Resp BP Pulse Ox O2 Del Method O2 Flow Rate 97.5 F 76 12 128/56 90 Room Air 2 10/31/22 02:56 10/31/22 02:56 10/31/22 02:56 10/31/22 02:56 10/31/22 02:56 10/31/22 02:56 10/29/22 15:24 Period Temp Pulse Resp BP Sys/Rosario Pulse Ox O2 Del Method O2 Flow Rate Last 24 Hr 97.5 F-98.4 F 70-80 12-12 115-135/56-75 90-99 Room Air-Room Air Intake and Output 10/30/22 10/31/22 10/31/22 19:59 03:59 11:59 Intake Total 1200 240 Output Total 1050 775 150 Balance 150 -535 -150 Weight 71.35 kg Intake & Output: Intake & Output 10/30/22 10/31/22 10/31/22 19:59 03:59 11:59 Intake Total 1200 240 Output Total 1050 775 150 Balance 150 -535 -150 Weight 71.35 kg Intake: Oral 1200 240 Output: Void Amount 1050 775 150 Other: Meal Dinner Percent of Meal Consumed 90 Feeding Ability Independent Urine Appearance Clear Clear Clear Urine Color Yellow Yellow Yellow Urine Odor Normal Stool Size Large Stool Color Brown Pale Stool Consistency Formed # Voids 1 # Bowel Movements 1 OBJ DATA Labs 10/31/22 05:26 10/30/22 06:13 Labs: Abnormal Lab Results 10/31/22 10/31/22 10/30/22 05:26 05:26 08:31 RBC Hgb 10.8 L Hct Plt Count 118 L Neut % (Auto) Lymph % (Auto) Lymph # (Auto) Seg Neutrophils % Lymphocytes % Absolute Neutrophils D-Dimer Anion Gap Glucose POC Glucose Calcium POC WB Ioniz Calcium Magnesium GGT AST ALT C-Reactive Protein NT-Pro-B Natriuret Pep 1167.0 H Total Protein Albumin Procalcitonin 0.20 H Urine Glucose (UA) Urine Ketones Hyaline Casts Urine Mucus 10/30/22 10/30/22 10/29/22 06:13 06:13 10:49 RBC 3.30 L Hgb 9.6 L Hct 30.4 L Plt Count 100 L Neut % (Auto) 79.2 H Lymph % (Auto) 13.3 L Lymph # (Auto) 0.82 L Seg Neutrophils % Lymphocytes % Absolute Neutrophils D-Dimer 0.68 H Anion Gap 7.0 L Glucose 345 H POC Glucose Calcium 7.8 L POC WB Ioniz Calcium Magnesium GGT 57 H AST 52 H ALT 42 H C-Reactive Protein NT-Pro-B Natriuret Pep Total Protein 5.2 L Albumin 2.9 L Procalcitonin Urine Glucose (UA) Urine Ketones Hyaline Casts Urine Mucus 10/29/22 10/29/22 10/29/22 10:35 09:53 09:53 RBC Hgb Hct Plt Count Neut % (Auto) Lymph % (Auto) Lymph # (Auto) Seg Neutrophils % Lymphocytes % Absolute Neutrophils D-Dimer Anion Gap Glucose POC Glucose Calcium POC WB Ioniz Calcium Magnesium 1.4 L GGT AST ALT C-Reactive Protein NT-Pro-B Natriuret Pep Total Protein Albumin Procalcitonin 0.39 H Urine Glucose (UA) >=1000 A Urine Ketones 40 A Hyaline Casts 6 H Urine Mucus Few A 10/29/22 10/29/22 10/29/22 09:53 09:53 09:53 RBC Hgb Hct Plt Count Neut % (Auto) Lymph % (Auto) Lymph # (Auto) Seg Neutrophils % 83 H Lymphocytes % 3 L Absolute Neutrophils D-Dimer Anion Gap Glucose POC Glucose Calcium POC WB Ioniz Calcium Magnesium GGT AST 137 H ALT 62 H C-Reactive Protein 0.90 H NT-Pro-B Natriuret Pep Total Protein Albumin Procalcitonin Urine Glucose (UA) Urine Ketones Hyaline Casts Urine Mucus 10/29/22 10/29/22 09:53 09:48 RBC Hgb Hct Plt Count 138 L Neut % (Auto) 92.0 H Lymph % (Auto) 3.0 L Lymph # (Auto) 0.32 L Seg Neutrophils % Lymphocytes % Absolute Neutrophils 9.83 H D-Dimer Anion Gap Glucose POC Glucose 533 H* Calcium POC WB Ioniz Calcium 1.04 L Magnesium GGT AST ALT C-Reactive Protein NT-Pro-B Natriuret Pep Total Protein Albumin Procalcitonin Urine Glucose (UA) Urine Ketones Hyaline Casts Urine Mucus Meds: Medications Acetaminophen (Acetaminophen 325 Mg Tablet) 650 mg PO Q6HP PRN; Protocol PRN Reason: Per Pain Protocol/Fever > 101 Albuterol/Ipratropium (Ipratropium/Albuterol 3 Ml Ampul.Neb) 3 ml NEB Q4HP PRN PRN Reason: Shortness Of Breath Dextrose (Dextrose 50% 50 Ml Vial) 0 ml IV UD PRN PRN Reason: Per Sliding Scale Diagnostic Test (Pha) (Accu-Chek 1 Each Strip) 1 each FS ACHS [facility] Last Admin: 10/31/22 07:19 Dose: 1 each Docusate Sodium (Docusate Sodium 100 Mg Capsule) 100 mg PO BID [facility] Last Admin: 10/30/22 20:58 Dose: 100 mg Glucose (Dextrose 31 Gm Oral.Susp) 15 gm PO PRN PRN PRN Reason: Hypoglycemia Hyoscyamine (Hyoscyamine Sulfate 0.125 Mg Tablet) 0.125 mg SL Q6HP PRN PRN Reason: muscle spasm Levofloxacin (Levaquin) 750 mg in 150 mls @ 100 mls/hr IV Q24H [facility] Last Infusion: 10/30/22 10:35 Dose: Infused Potassium Chloride 40 meq/ (Dextrose) 520 mls @ 130 mls/hr IV UD PRN PRN Reason: Potassium < 3 Magnesium Sulfate (Magnesium Sulfate) 2 gm in 50 mls @ 50 mls/hr IV UD PRN PRN Reason: Magnesium </= 1.6 Insulin Glargine (Insulin Glargine, Human 1 Unit/0.01 Ml) 20 unit SQ BID [facility] Last Admin: 10/30/22 21:08 Dose: 20 units Insulin Human Lispro (Insulin Lispro 1 Unit/0.01 Ml Unit) 0 unit SQ [facility]; Protocol Last Admin: 10/31/22 07:24 Dose: 3 units Levothyroxine Sodium (Levothyroxine 125 Mcg Tablet) 125 mcg PO QAMAC [facility] Last Admin: 10/31/22 07:20 Dose: 125 mcg Methocarbamol (Methocarbamol 500 Mg Tablet) 500 mg PO TIDP PRN PRN Reason: Muscle Spasm Last Admin: 10/31/22 05:02 Dose: 500 mg Ondansetron HCl (Ondansetron 4 Mg/2 Ml Vial) 4 mg IV Q4HP PRN PRN Reason: Nausea And Vomiting Polyethylene Glycol (Polyethylene Glycol 3350 17 Gm Packet) 17 gm PO DAILYP PRN PRN Reason: Constipation Last Admin: 10/31/22 05:02 Dose: 17 gm Potassium Chloride (Potassium Chloride 20 Meq Tablet) 40 meq PO UD PRN PRN Reason: Potssium is 3-3.5 Potassium Chloride (Potassium Chloride 20 Meq Tablet) 40 meq PO UD PRN PRN Reason: Potassium < 3 Senna (Sennosides 1 Tablet) 2 tab PO DAILYP PRN PRN Reason: Constipation Sodium Chloride (0.9 % Sodium Chloride 10 Ml Syringe) 10 ml IV Q8 PEG Last Admin: 10/31/22 05:03 Dose: 10 ml Tramadol HCl (Tramadol 50 Mg Tablet) 50 - 100 mg PO Q6HP PRN PRN Reason: Pain Last Admin: 10/31/22 05:02 Dose: 50 mg Trazodone HCl (Trazodone Hcl 100 Mg Tablet) 100 mg PO HSP PRN PRN Reason: insomnia Last Admin: 10/30/22 23:46 Dose: 100 mg A/P Narrative A/P Narrative: A: *Acute hypoxic respiratory failure: 2/2 early pna vs acute bronchitis with poor inspiration -now on room air at rest -CT chest infiltrate b/l lower lobes *PNA: -elevated PCT improving, strep/flu/rsv/covid neg *Sepsis(febrile/tachycardia): 2/2 above -borderline bandemia *Generalized weakness/deconditioning: *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: and Hyperglycemia 533 on admit -A1c 11.0 *Hypomagnesemia/hypophosphatemia: *CAD: *Hypothyroidism: cont levothyroxine *Chronic pancreatitis: cont home pancreatic enzyme supplements *Hypertriglyceridemia: *chronically elevated LFT's: *Essential tremor: *chr back pain: Plan: -O2 supp prn -IS/Acapella, prn nebs -trend pct -IV levaquin pending BC/SC -trend and Replace electrolytes, monitor uop and i/o -basal and SSI, QHS snack -PT/OT -CM for SNF placement -DVT prophylaxis: lovenox CODE STATUS: DNR Time Spent With Patient Time: Total time spent is greater than 50% in coordination of care (as documented) at patient's floor/unit and/or counseling patient: Subsequent: Total time with patient: 35 - 49 minutes QUALITY Stroke Symptom Onset Unknown: No VTE Deep Vein Thrombosis/Pulmonary Embolism Present on Admission: No
[2022-10-31 07:36] LABS: ALT/SGPT 36 U/L (<40); AST/SGOT 39 U/L (<32); Albumin 3.2 gm/dL (3.2-5.2); Albumin/Globulin Ratio 1.1 (1.0-2.3); Alkaline Phosphatase 104 U/L (39-117); Bilirubin,Direct < 0.2 mg/dL (0-0.3); Bilirubin,Total 0.3 mg/dL (0.1-1.0); Blood Urea Nitrogen 12 mg/dL (8-23); Calcium 8.3 mg/dL (8.6-10.4); Carbon Dioxide 29 mmol/L (22-30); Chloride 100 mmol/L (96-108); Globulin 2.8 gm/dL (2.2-3.7); Glomerular Filtration Rate 93; Glucose 164 mg/dL (70-105); Lactate Dehydrogenase 225 U/L (135-225); Phosphorous 2.7 mg/dL (2.5-4.5); Triglycerides 201 mg/dL (<150); Uric Acid 3.8 mg/dL (2.5-8.0)
[2022-10-31 08:09] LABS: Basophils % (Manual) 1 % (0-2); Eosinophils % (Manual) 5 % (0-7); Lymphocytes % 20 % (15-49); Monocytes % (Manual) 2 % (1-12); Platelet Estimate DECREASED (Normal); RBC Morphology NORMAL (Normal); Segmented Neutrophils % 72 % (38-78)
[2022-10-31] MEDS: LEVOFLOXACIN 750 MG/150 ML BAG IV SCH ×2 (08:44→11:18)
[2022-10-31] MEDS: DOCUSATE SODIUM 100 MG CAPSULE PO SCH (08:44)
[2022-10-31] MEDS: INSULIN GLARGINE, HUMAN 1 UNIT/0.01 ML SQ SCH (08:44)
[2022-10-31] MEDS ORDERED: IPRATROPIUM/ALBUTEROL 3 ML AMPUL.NEB NEB ONE (09:19)
== END 2022-10-31 15:35 | disposition home health service (06) | DRG 871 ==
LOC: ED 09:34 → MEDSUR 14:10
PROVIDERS: ADMIT Internal Medicine; ATTEND Internal Medicine

== ENCOUNTER 2022-11-17 15:33 | Inpatient (IN) ==
--- NOTE | 2022-11-17 15:44 | Emergency Department Note ---
HPI General Chief complaint: Blood Sugar Problem Stated complaint: DKA Time Seen by Provider: 11/17/22 15:43 Source: EMS Mode of arrival: EMS Limitations: no limitations History of Present Illness HPI Narrative: Narrative: Patient is a 77-year-old female with history of type 2 diabetes that presented to the emergency department today by EMS with concern of her glucometer at home reading "high". Patient states that she feels that she may be in DKA again. Patient does state that she was treated for bronchitis last month and feels better after treatment and denies any further coughing. She started to feel weak over the last couple of days and did not feel like taking her insulin. She reports that she started feeling tired 2 days ago and feels some mild nausea. She has not taken her insulin for the last 2 days because of forgetting and she did not feel well. She is reporting that her daughter is currently looking at facilities of assisted living and she plans on moving into a facility here in the near future. Patient has had some mild nausea without any vomiting. She denies any chest pain, shortness of breath, or difficulty breathing. She has not had any fevers, chills, cough, dysuria, urinary frequency, hesitancy, diarrhea, confusion, weakness, vision changes, or headache. Related Data Home Medications Medication Instructions Recorded Confirmed multivit [id number] 1 tab PO DAILY 07/15/21 10/29/22 [Hair, Skin and Nails Advanced] trazodone 100 mg tablet 100 mg PO HSP PRN insomnia 08/22/21 10/29/22 acyclovir 400 mg tablet 1 tab PO BID 09/21/21 10/29/22 cholecalciferol (vitamin D3) 50 50 mcg PO DAILY 12/04/21 10/29/22 mcg (2,000 unit) capsule (Vitamin D3) insulin aspart U-100 100 unit/mL See Protocol subcut ACHS 04/23/22 10/29/22 (3 mL) subcutaneous pen (Novolog FlexPen U-100 Insulin aspart) blood sugar diagnostic (True 08/21/22 10/29/22 Metrix Glucose Test Strip) levothyroxine 125 mcg tablet 1 tab PO QAM 08/21/22 10/29/22 ketoconazole 2 % shampoo 1 applic topical DAILY 10/14/22 10/29/22 hyoscyamine sulfate 0.125 mg 0.125 mg sublingual Q6HP PRN 10/15/22 10/29/22 disintegrating tablet muscle spasm tramadol 50 mg tablet 50 - 100 mg PO Q6HP PRN pain 10/16/22 10/29/22 nitrofurantoin 1 cap PO BID 10/29/22 10/29/22 monohydrate/macrocrystals 100 mg capsule Previous Rx's Medication Instructions Recorded methocarbamol 500 mg tablet 500 mg PO TIDP PRN Muscle Spasm 05/08/22 #30 tabs insulin degludec 100 unit/mL 20 unit (0.2 mL) subcut BID #10 mL 08/29/22 subcutaneous solution (Tresiba U-100 Insulin) levofloxacin 750 mg tablet 750 mg PO Q24H #2 tabs 10/31/22 Allergies Allergy/AdvReac Type Severity Reaction Status Date / Time cephalexin [From Keflex] Allergy Intermediate Swelling Verified 11/17/22 15:51 lidocaine Allergy Intermediate Blister Verified 11/17/22 15:51 Penicillins Allergy Mild Rash Verified 11/17/22 15:51 Anistreplase [From Eminase] Allergy Unknown UNKNOWN Verified 11/17/22 15:51 fenugreek Allergy Unknown UNKNOWN Verified 11/17/22 15:51 codeine AdvReac Mild Itching Verified 11/17/22 15:51 Erythromycin Base AdvReac Mild Itching Verified 11/17/22 15:51 Nortriptyline AdvReac Mild Nausea Verified 11/17/22 15:51 promethazine AdvReac Mild Fainting Verified 11/17/22 15:51 trulicity AdvReac Intermediate Other Uncoded 12/04/21 06:40 Review of Systems ROS ROS Narrative: Narrative: All systems ED: reviewed and negative except as stated. [facility] Narrative Patient History Narrative: Narrative: Medical/Surgical/Family History All Active Problems (Updated 11/17/22 @ 21:23 by PAULINA Chatman) Hypoxemia (Acute) Acute viral syndrome (Acute) Hypokalemia (Acute) Left renal mass (Acute) Transaminitis (Acute) Septic shock (Acute) Clinical sepsis (Acute) DKA, type 2 (Acute) Essential hypertension (Acute) Mixed dyslipidemia (Acute) Hyperkalemia (Acute) Compression fracture of body of thoracic vertebra (Acute) Pain in rib (Acute) Hyperglycemia due to type 2 diabetes mellitus (Acute) Chronic pain syndrome (Acute) DKA, type 2 (Acute) Hypoglycemia (Acute) DKA (diabetic ketoacidosis) (Acute) Acute hyponatremia (Acute) Acute hyperkalemia (Acute) Acidosis, lactic (Acute) Metabolic acidosis (Acute) Blood in urine (Chronic) Diabetic keto-acidosis (Chronic) Pseudohyponatremia (Chronic) DKA (diabetic ketoacidosis) (Chronic) Hypomagnesemia (Chronic) Generalized weakness (Chronic) Acute dehydration (Chronic) Diabetic ketosis (Chronic) Acute dyspnea (Chronic) Obstructive sleep apnea (Chronic) DKA (diabetic ketoacidosis) (Chronic) Vulvovaginitis due to yeast (Chronic) Sleepwalking (Chronic) REM sleep behavior disorder (Chronic) Hypersomnia (Chronic) Snoring (Chronic) Tremor (Chronic) Neurofibromatosis 2 (Chronic) Trigger finger (Chronic) Sleep disturbance (Chronic) Arthralgia (Chronic) Pancreatitis (Chronic) Macular degeneration (Chronic) Hepatitis A (Chronic) Glaucoma (Chronic) Fibromyalgia (Chronic) DDD (degenerative disc disease), cervical (Chronic) Diabetic retinopathy (Chronic) Opioid dependence (Chronic) Stress (Chronic) Hard of hearing (Chronic) Multiple environmental allergies (Chronic) Fracture of lumbar spine (Chronic) Compression fracture of lumbosacral spine (Chronic) Abdominal pain (Chronic) Chronic pancreatitis (Chronic) Liver mass (Chronic) Cirrhosis of liver (Chronic) Constipation (Chronic) Neuropathy (Chronic) Chronic pain (Chronic) Essential tremor (Chronic) Bimalleolar ankle fracture (Chronic) Chronic bronchitis with acute exacerbation (Chronic) Dehydration (Chronic) Epistaxis (Chronic) Hypoxia (Chronic) Anterior epistaxis (Chronic) Candidiasis of mouth (Chronic) DKA (diabetic ketoacidosis) (Chronic) Conjunctivitis (Chronic) Bronchitis (Chronic) Dehiscence of closure of skin (Chronic) Anemia (Chronic) Elevated liver enzymes (Chronic) 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) Radiculopathy, sacral and sacrococcygeal region (Chronic) Radiculopathy, lumbosacral region (Chronic) Insomnia (Chronic) Levator syndrome (Chronic) Sacrococcygeal pain (Chronic) History of surgery (Chronic) Hypothyroidism (Chronic) Chronic bronchitis (Chronic) 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) Depression (Chronic) Anxiety (Chronic) Hypertension (Chronic) Osteoporosis (Chronic) Rectal pain (Chronic) Low back pain (Chronic) Pain in thoracic spine (Chronic) Age-related osteoporosis with current pathological fracture, vertebra(e), initial encounter for fracture (Chronic) Medical History Abdominal pain Acute exacerbation of chronic obstructive airways disease Age-related osteoporosis with current pathological fracture, vertebra(e), initial encounter for fracture Anemia Anterior epistaxis Anxiety Arthralgia Bilateral primary osteoarthritis of hip Bimalleolar ankle fracture Blood in urine Bronchitis Candidiasis of mouth Chronic bronchitis with acute exacerbation Chronic pain Chronic pancreatitis Cirrhosis of liver Compression fracture of lumbosacral spine Conjunctivitis Constipation DDD (degenerative disc disease), cervical Dehiscence of closure of skin Dehydration Depression Diabetic retinopathy DKA (diabetic ketoacidosis) Elevated liver enzymes Epistaxis Essential tremor Fibromyalgia Fracture of lumbar spine Glaucoma Hard of hearing Hepatitis A Hyperglycemia due to type 2 diabetes mellitus Hypersomnia Hypertension Hypothyroidism Hypoxia Insomnia Levator syndrome Lipomatosis Liver mass Low back pain Macular degeneration Multiple environmental allergies Neurofibromatosis 2 Neuropathy Obstructive sleep apnea Opioid dependence Osteoporosis Pain in thoracic spine Pancreatitis Radiculopathy, lumbosacral region Radiculopathy, sacral and sacrococcygeal region Rectal pain REM sleep behavior disorder Sacrococcygeal pain Sleep disturbance Sleepwalking Snoring Stress Tremor Trigger finger Surgical History History of appendectomy (~1970) History of arthroplasty of right ankle (~2017) History of cataract surgery (~2003) History of cholecystectomy History of colonoscopy (~06/26/18) History of decompression of median nerve (~2003) History of dilation and curettage History of eye surgery (~2005) Glaucoma History of hand surgery (~2003) Release of trigger finger, right History of left breast biopsy (~2005) History of oophorectomy History of surgery Vertebroplasty T12 w/sed 09/28/19 History of surgery retinopathy laser Stereotactic destruction of lesion using gamma radiation-2004 History of surgery on wrist History of tonsillectomy and adenoidectomy (~1969) Family History Mother Heart disease Fibromyalgia Father Malignant melanoma Malignant tumor of prostate Leukemia Social History Smoking Status: Never smoker Alcohol Intake Frequency: does not drink Substance Use: does not use Exam Narrative Narrative: Narrative: General Limitations: no limitations General appearance: Present in no apparent distress and lethargic Head Head: Present atraumatic, normocephalic and normal inspection Eye Eye: Present normal appearance; Absent scleral icterus ENT ENT: Present normal oropharynx and mucous membranes dry Neck Neck: Present lymphadenopathy Chest Chest: Present symmetric chest wall rise Respiratory Respiratory: Present normal lung sounds bilaterally; Absent respiratory distress, rales/crackles, wheezes or accessory muscle use Cardiovascular Cardiovascular: Present regular rate, normal rhythm and normal heart sounds Adbominal Abdominal: Present soft; Absent distention or tenderness Extremities Extremities: Present normal inspection, full ROM and normal capillary refill; Absent pretibial edema or cyanosis Neurological Neurological: Present alert and oriented X3 Psychiatric Psychiatric: Present normal affect and normal mood Skin Skin: Present warm (WNL), dry and normal color Course Vital Signs Vital signs: Vital Signs Temperature 97 F 11/17/22 15:41 Pulse Rate 98 H 11/17/22 15:41 Respiratory Rate 28 H 11/17/22 15:41 Blood Pressure 148/45 11/17/22 15:41 Pulse Oximetry (%) 100 11/17/22 15:41 Oxygen Delivery Method Room Air 11/17/22 15:41 Temperature 97 F 11/17/22 15:41 Pulse Rate 88 11/17/22 20:31 Respiratory Rate 20 11/17/22 20:31 Blood Pressure 126/49 11/17/22 20:31 Pulse Oximetry (%) 100 11/17/22 15:41 Oxygen Delivery Method Room Air 11/17/22 19:52 MDM [facility] Narrative Medical decision making narrative: Narrative: Patient is a 77-year-old female who reports that she stopped taking her insulin 2 days ago and has a history of DKA. She called EMS feeling that she may be in DKA as she is having some nausea and fatigue. She was reporting some aching sensation in her lower back and typically takes tramadol for pain. Proceed with 15 mg of IV Toradol, and 1 L normal saline. Patient's blood glucose here in the emergency department read "high". Proceed with 10 units of IV regular insulin. After patient received 1 L normal saline and 10 units of IV insulin her blood sugar had still read "high". An additional 10 units of IV insulin was given today. Blood sugars still read as high. Patient's CO2 is 5. Glucose 801 on chemistry panel. Started insulin drip with this patient. I Ordered an ABG as I did not have the VBG back yet and this was apparently not done. Based on patient's labs it appears that she is in DKA with her carbon dioxide is 5, anion gap is 30, creatinine 1.5, BUN 35, beta hydroxybutyrate 10.75. Patient's ABG shows a pH of 7.09, PCO2 less than 15, PO2 121, lactic acid 1.91. Patient's labs today reveal rather normal CBC. There is no leukocytosis or anemia. Patient was given a total of 20 units IV insulin today and 3 L normal saline. Insulin drip was started in the emergency department. I was able to speak with Dr. Borges who is the hospitalist here at [facility] and he accepted patient for hospital admission for DKA. Patient will be admitted to [facility] today for DKA. Sepsis Sepsis Identified: No Lab Data Lab results reviewed: Yes I reviewed the patient's lab results. 11/17/22 17:51 11/17/22 17:51 Labs: Lab Results 11/17/22 11/17/22 11/17/22 Range/Units 17:51 17:51 17:51 WBC 9.7 (4.5-11.0) K/mcL RBC 4.47 (3.59-5.38) M/mcL Hgb 12.9 (11.2-15.7) g/dL Hct 42.3 (34.1-44.9) % MCV 94.6 (80.0-100.0) fL MCH 28.9 (26.0-34.0) pg MCHC 30.5 L (31.0-36.0) g/dL RDW 13.4 (11.5-14.5) % Plt Count 311 (140-440) K/mcL MPV 11.0 (8.8-12.5) fL Immature Gran % (Auto) 0.7 H (0.0-0.5) % Neut % (Auto) 77.5 (38.0-78.0) % Lymph % (Auto) 15.3 L (15.5-49.0) % Ceiba % (Auto) 5.8 (1.0-12.0) % Eos % (Auto) 0 (0.0-7.0) % Baso % (Auto) 0.7 (0.0-2.0) % Lymph # (Auto) 1.49 L (1.50-4.80) K/mcL Ceiba # (Auto) 0.56 (0.10-0.90) K/mcL Eos # (Auto) 0 (0.00-0.70) K/mcL Baso # (Auto) 0.07 (0.00-0.30) K/mcL Immature Gran # 0.07 H (0.00-0.05) K/mcl Absolute Neutrophils 7.54 (1.80-8.00) K/mcL Sodium 125 L (133-145) mmol/L Potassium 5.0 (3.3-5.1) mmol/L Chloride 90 L (96-108) mmol/L Carbon Dioxide 5 L* (22-30) mmol/L Anion Gap 30.0 H (8.0-16.0) BUN 35 H (8-23) mg/dL Creatinine 1.5 H (0.6-1.1) mg/dL GFR Calculation 33 Glucose 801 H* (70-105) mg/dL Osmolality (280-300) mOSM/kg Calcium 8.5 L (8.6-10.4) mg/dL Phosphorus (2.5-4.5) mg/dL Magnesium (1.6-2.5) mg/dL Total Bilirubin 0.4 (0.1-1.0) mg/dL AST 21 (<32) U/L ALT 35 (<40) U/L Alkaline Phosphatase 163 H (39-117) U/L Total Protein 6.8 (5.9-8.4) gm/dL Albumin 4.1 (3.2-5.2) gm/dL Globulin 2.7 (2.2-3.7) gm/dL Albumin/Globulin Ratio 1.5 (1.0-2.3) Beta-Hydroxybutyrate 10.75 H (<0.27) mmol/L TSH 3.33 (0.27-5.01) uIU/mL 11/17/22 Range/Units 17:51 WBC (4.5-11.0) K/mcL RBC (3.59-5.38) M/mcL Hgb (11.2-15.7) g/dL Hct (34.1-44.9) % MCV (80.0-100.0) fL MCH (26.0-34.0) pg MCHC (31.0-36.0) g/dL RDW (11.5-14.5) % Plt Count (140-440) K/mcL MPV (8.8-12.5) fL Immature Gran % (Auto) (0.0-0.5) % Neut % (Auto) (38.0-78.0) % Lymph % (Auto) (15.5-49.0) % Ceiba % (Auto) (1.0-12.0) % Eos % (Auto) (0.0-7.0) % Baso % (Auto) (0.0-2.0) % Lymph # (Auto) (1.50-4.80) K/mcL Ceiba # (Auto) (0.10-0.90) K/mcL Eos # (Auto) (0.00-0.70) K/mcL Baso # (Auto) (0.00-0.30) K/mcL Immature Gran # (0.00-0.05) K/mcl Absolute Neutrophils (1.80-8.00) K/mcL Sodium (133-145) mmol/L Potassium (3.3-5.1) mmol/L Chloride (96-108) mmol/L Carbon Dioxide (22-30) mmol/L Anion Gap (8.0-16.0) BUN (8-23) mg/dL Creatinine (0.6-1.1) mg/dL GFR Calculation Glucose (70-105) mg/dL Osmolality 337 H (280-300) mOSM/kg Calcium (8.6-10.4) mg/dL Phosphorus 4.9 H (2.5-4.5) mg/dL Magnesium 2.1 (1.6-2.5) mg/dL Total Bilirubin (0.1-1.0) mg/dL AST (<32) U/L ALT (<40) U/L Alkaline Phosphatase (39-117) U/L Total Protein (5.9-8.4) gm/dL Albumin (3.2-5.2) gm/dL Globulin (2.2-3.7) gm/dL Albumin/Globulin Ratio (1.0-2.3) Beta-Hydroxybutyrate (<0.27) mmol/L TSH (0.27-5.01) uIU/mL Discharge Plan Patient/Caregiver Discharge Instructions Pt seen by CASTING MACHINE ADJUSTER/PA only: No Clinical Impression: DKA (diabetic ketoacidosis) Patient Disposition: Xfer As Inpt ([facility]) Follow up with: Jacque Severino FNP [Primary Care Provider] - Prescriptions: No Action multivit [id number] 186 [Hair, Skin and Nails Advanced] 1 tab PO DAILY trazodone 100 mg tablet 100 mg PO HSP PRN (Reason: insomnia) acyclovir 400 mg tablet 1 tab PO BID cholecalciferol (vitamin D3) [Vitamin D3] 50 mcg (2,000 unit) Capsule 50 mcg PO DAILY insulin aspart U-100 [Novolog FlexPen U-100 Insulin] 100 unit/mL (3 mL) insulin pen See Protocol subcut ACHS Protocol: Insulin Sliding Scale, High Condition: HUMALOG/NOVALOG SC SLIDING Dose/Route: SCALE Condition: FSBS < 70 Dose/Route: Give 4 Oz juice, or 15gm oral Instruction: Glucose, or 25ml D50W IV if Dose/Route: unable to take PO. Recheck in Instruction: 15 min and repeat if FSBS < 70 Condition: FSBS 71-140 Dose/Route: NO COVERAGE Condition: FSBS 141-170 Dose/Route: 3 UNITS Condition: FSBS 171-200 Dose/Route: 6 UNITS Condition: FSBS 201-250 Dose/Route: 9 UNITS Condition: FSBS 251-300 Dose/Route: 12 UNITS Condition: FSBS 301-350 Dose/Route: 15 UNITS Condition: FSBS 351-400 Dose/Route: 18 UNITS Condition: FSBS > 400 Dose/Route: 20 UNITS; REPEAT Q2H X2 Instruction: CONT INUE FOLLOWING SLIDING Condition: SCALE; IF STILL > 400; CALL Dose/Route: PHYSICIAN methocarbamol 500 mg Tablet 500 mg PO TIDP PRN (Reason: Muscle Spasm) Qty: 30 0RF levothyroxine 125 mcg tablet 1 tab PO QAM (DME) True Metrix Glucose Test Strip Strip 1 strip MISCELLANEOUS QID insulin degludec [Tresiba U-100 Insulin] 100 unit/mL solution 20 unit subcut BID Qty: 10 0RF ketoconazole 2 % shampoo 1 applic topical DAILY hyoscyamine sulfate 0.125 mg tablet,disintegrating 0.125 mg sublingual Q6HP PRN (Reason: muscle spasm) tramadol 50 mg tablet 50 - 100 mg PO Q6HP PRN (Reason: pain) nitrofurantoin monohyd/m-cryst 100 mg capsule 1 cap PO BID levofloxacin 750 mg tablet 750 mg PO Q24H Qty: 2 0RF Rx Instructions: start on 11/01/2022
[2022-11-17] MEDS ORDERED: KETOROLAC 30 MG/ML VIAL IV ONE (16:22)
[2022-11-17] MEDS ORDERED: 0.9 % SODIUM CHLORIDE 1,000 ML IV ONE ×3 (16:54→19:14)
[2022-11-17] MEDS ORDERED: INSULIN REGULAR, HUMAN 1 UNIT/0.01 ML UNIT IV ONE ×2 (16:58→18:29)
[2022-11-17 18:24] LABS: Basophils # (Auto) 0.07 K/mcL (0.00-0.30); Basophils % (Auto) 0.7 % (0.0-2.0); Eosinophils # (Auto) 0 K/mcL (0.00-0.70); Eosinophils % (Auto) 0 % (0.0-7.0); Hematocrit 42.3 % (34.1-44.9); Hemoglobin 12.9 g/dL (11.2-15.7); Lymphocytes # (Auto) 1.49 K/mcL (1.50-4.80); Lymphocytes % (Auto) 15.3 % (15.5-49.0); Mean Cell Volume 94.6 fL (80.0-100.0); Mean Corpuscular HGB Conc 30.5 g/dL (31.0-36.0); Monocytes # (Auto) 0.56 K/mcL (0.10-0.90); Monocytes % (Auto) 5.8 % (1.0-12.0); Neutrophils % (Auto) 77.5 % (38.0-78.0); Platelet Count 311 K/mcL (140-440); RBC 4.47 M/mcL (3.59-5.38); Red Cell Distribution Width 13.4 % (11.5-14.5); WBC 9.7 K/mcL (4.5-11.0)
[2022-11-17 19:04] LABS: ALT/SGPT 35 U/L (<40); AST/SGOT 21 U/L (<32); Albumin 4.1 gm/dL (3.2-5.2); Albumin/Globulin Ratio 1.5 (1.0-2.3); Alkaline Phosphatase 163 U/L (39-117); Bilirubin,Total 0.4 mg/dL (0.1-1.0); Blood Urea Nitrogen 35 mg/dL (8-23); Calcium 8.5 mg/dL (8.6-10.4); Carbon Dioxide 5 mmol/L (22-30); Chloride 90 mmol/L (96-108); Globulin 2.7 gm/dL (2.2-3.7); Glomerular Filtration Rate 33; Glucose 801 mg/dL (70-105)
[2022-11-17] MEDS ORDERED: INSULIN REGULAR, HUMAN 50 UNIT in 0.9 % SODIUM CHLORIDE 99.5 ML IV SCH (19:15)
[2022-11-17 19:27] LABS: Beta Hydroxybutyrate 10.75 mmol/L (<0.27)
--- NOTE | 2022-11-17 20:20 | Internal Med History&Physical ---
HPI History of Present Illness Patient information: Note initiated : 11/17/22 at 8:09 pm Service Date, if different from initiated Date: [] Patient: Tennille Castillo a 77 y/o F admitted on for DKA. Chief Complaint: [] History of present illness: Ms. Castillo is a 77 year old F Presents today for elevated blood glucose and weakness feeling like she is in DKA. Patient was last admitted in the middle of October for bronchitis. Patient states she has a little residual cough and shortness of breath but that is been improving. Patient states about a week ago she just cannot became progressively weak. She has not entirely compliant with her insulin and has not been taking it regularly and the past couple days she has not taken it at all. The daughter has been trying to get her into a nursing facility. Patient complains of severe weakness and not able to minimally get out of bed. She has chronic back pain which really bothers her. She has had some mild nausea but none today and no vomiting. She denies chest pain or shortness of breath. She denies diarrhea or constipation or abdominal pain. In the ED she is found to have a pH of 7.09 with a bicarb of 5. Beta hydroxybutyric acid of 10 with a BUN of 35 and creatinine 1.5 chloride at 90 and a sodium of 125 but that is not corrected for hyperglycemia. Her glucose was 801. Patient was given several fluid boluses in the ED as well as a regular insulin IV push and an insulin drip started. Patient denies any recent illnesses other than the acute bronchitis that she was admitted for in October. Patient is lethargic. Review of Systems: Pertinent positive as above. Denies headache/fever/chills/vomiting/chest or abdominal pain/diarrhea. Remaining 10 point review of system reviewed negative PHYSICAL EXAM General: Awake, mild distress Eyes/N/T: EOMI, no scleral icterus, PERRL, dry MM Head/Neck: neck supple, full ROM, normocephalic atraumatic CV: RRR, 3/6SM, normal s1/s2 Pulm: Clear b/l, no wheezing/rhonchi/rales, no respiratory distress Abd: soft, nontender, +BS x4 Ext: no clubbing/cyanosis/edema, nontender Neuro: Lethargic, no focal deficits, moves all extremities, CN 2-12 grossly intact, sensations intact b/l upper/lower Psychiatric: Skin: warm/dry, normal color PFSH PFSH All Active Problems (Updated 10/30/22 @ 13:43 by Wiley Patel MD) Hypoxemia (Acute) Acute viral syndrome (Acute) Hypokalemia (Acute) Left renal mass (Acute) Transaminitis (Acute) Septic shock (Acute) Clinical sepsis (Acute) DKA, type 2 (Acute) Essential hypertension (Acute) Mixed dyslipidemia (Acute) Hyperkalemia (Acute) Compression fracture of body of thoracic vertebra (Acute) Pain in rib (Acute) Hyperglycemia due to type 2 diabetes mellitus (Acute) Chronic pain syndrome (Acute) DKA, type 2 (Acute) Hypoglycemia (Acute) DKA (diabetic ketoacidosis) (Acute) Acute hyponatremia (Acute) Acute hyperkalemia (Acute) Acidosis, lactic (Acute) Metabolic acidosis (Acute) Blood in urine (Chronic) Diabetic keto-acidosis (Chronic) Pseudohyponatremia (Chronic) DKA (diabetic ketoacidosis) (Chronic) Hypomagnesemia (Chronic) Generalized weakness (Chronic) Acute dehydration (Chronic) Diabetic ketosis (Chronic) Acute dyspnea (Chronic) Obstructive sleep apnea (Chronic) DKA (diabetic ketoacidosis) (Chronic) Vulvovaginitis due to yeast (Chronic) Sleepwalking (Chronic) REM sleep behavior disorder (Chronic) Hypersomnia (Chronic) Snoring (Chronic) Tremor (Chronic) Neurofibromatosis 2 (Chronic) Trigger finger (Chronic) Sleep disturbance (Chronic) Arthralgia (Chronic) Pancreatitis (Chronic) Macular degeneration (Chronic) Hepatitis A (Chronic) Glaucoma (Chronic) Fibromyalgia (Chronic) DDD (degenerative disc disease), cervical (Chronic) Diabetic retinopathy (Chronic) Opioid dependence (Chronic) Stress (Chronic) Hard of hearing (Chronic) Multiple environmental allergies (Chronic) Fracture of lumbar spine (Chronic) Compression fracture of lumbosacral spine (Chronic) Abdominal pain (Chronic) Chronic pancreatitis (Chronic) Liver mass (Chronic) Cirrhosis of liver (Chronic) Constipation (Chronic) Neuropathy (Chronic) Chronic pain (Chronic) Essential tremor (Chronic) Bimalleolar ankle fracture (Chronic) Chronic bronchitis with acute exacerbation (Chronic) Dehydration (Chronic) Epistaxis (Chronic) Hypoxia (Chronic) Anterior epistaxis (Chronic) Candidiasis of mouth (Chronic) DKA (diabetic ketoacidosis) (Chronic) Conjunctivitis (Chronic) Bronchitis (Chronic) Dehiscence of closure of skin (Chronic) Anemia (Chronic) Elevated liver enzymes (Chronic) 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) Radiculopathy, sacral and sacrococcygeal region (Chronic) Radiculopathy, lumbosacral region (Chronic) Insomnia (Chronic) Levator syndrome (Chronic) Sacrococcygeal pain (Chronic) History of surgery (Chronic) Hypothyroidism (Chronic) Chronic bronchitis (Chronic) 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) Depression (Chronic) Anxiety (Chronic) Hypertension (Chronic) Osteoporosis (Chronic) Rectal pain (Chronic) Low back pain (Chronic) Pain in thoracic spine (Chronic) Age-related osteoporosis with current pathological fracture, vertebra(e), init ial encounter for fracture (Chronic) Medical History Abdominal pain Acute exacerbation of chronic obstructive airways disease Age-related osteoporosis with current pathological fracture, vertebra(e), initial encounter for fracture Anemia Anterior epistaxis Anxiety Arthralgia Bilateral primary osteoarthritis of hip Bimalleolar ankle fracture Blood in urine Bronchitis Candidiasis of mouth Chronic bronchitis with acute exacerbation Chronic pain Chronic pancreatitis Cirrhosis of liver Compression fracture of lumbosacral spine Conjunctivitis Constipation DDD (degenerative disc disease), cervical Dehiscence of closure of skin Dehydration Depression Diabetic retinopathy DKA (diabetic ketoacidosis) Elevated liver enzymes Epistaxis Essential tremor Fibromyalgia Fracture of lumbar spine Glaucoma Hard of hearing Hepatitis A Hyperglycemia due to type 2 diabetes mellitus Hypersomnia Hypertension Hypothyroidism Hypoxia Insomnia Levator syndrome Lipomatosis Liver mass Low back pain Macular degeneration Multiple environmental allergies Neurofibromatosis 2 Neuropathy Obstructive sleep apnea Opioid dependence Osteoporosis Pain in thoracic spine Pancreatitis Radiculopathy, lumbosacral region Radiculopathy, sacral and sacrococcygeal region Rectal pain REM sleep behavior disorder Sacrococcygeal pain Sleep disturbance Sleepwalking Snoring Stress Tremor Trigger finger Surgical History History of appendectomy (~1970) History of arthroplasty of right ankle (~2017) History of cataract surgery (~2003) History of cholecystectomy History of colonoscopy (~06/26/18) History of decompression of median nerve (~2003) History of dilation and curettage History of eye surgery (~2005) Glaucoma History of hand surgery (~2003) Release of trigger finger, right History of left breast biopsy (~2005) History of oophorectomy History of surgery Vertebroplasty T12 w/sed 09/28/19 History of surgery retinopathy laser Stereotactic destruction of lesion using gamma radiation-2004 History of surgery on wrist History of tonsillectomy and adenoidectomy (~1969) Family History Mother Heart disease Fibromyalgia Father Malignant melanoma Malignant tumor of prostate Leukemia Social History lives independently: Yes marital status: education level: college occupational status: retired pets and animals: No other: 2 children physical activity: none smoking status: Never smoker alcohol intake frequency: does not drink substance use type: does not use seatbelt use: always working smoke detector in home: Yes carbon monox detector in home: Yes MEDS/ALLERGIES Home Medications and Allergies Home Medications Medication Instructions Recorded Confirmed Type multivit [id number] 1 tab PO DAILY 07/15/21 10/29/22 History [Hair, Skin and Nails Advanced] trazodone 100 mg tablet 100 mg PO HSP PRN insomnia 08/22/21 10/29/22 History acyclovir 400 mg tablet 1 tab PO BID 09/21/21 10/29/22 History cholecalciferol (vitamin D3) 50 50 mcg PO DAILY 12/04/21 10/29/22 History mcg (2,000 unit) capsule (Vitamin D3) insulin aspart U-100 100 unit/mL See Protocol subcut ACHS 04/23/22 10/29/22 History (3 mL) subcutaneous pen (Novolog FlexPen U-100 Insulin aspart) methocarbamol 500 mg tablet 500 mg PO TIDP PRN Muscle Spasm 05/08/22 10/29/22 Rx #30 tabs blood sugar diagnostic (True 08/21/22 10/29/22 History Metrix Glucose Test Strip) levothyroxine 125 mcg tablet 1 tab PO QAM 08/21/22 10/29/22 History insulin degludec 100 unit/mL 20 unit (0.2 mL) subcut BID #10 mL 08/29/22 10/29/22 Rx subcutaneous solution (Tresiba U-100 Insulin) ketoconazole 2 % shampoo 1 applic topical DAILY 10/14/22 10/29/22 History hyoscyamine sulfate 0.125 mg 0.125 mg sublingual Q6HP PRN 10/15/22 10/29/22 History disintegrating tablet muscle spasm tramadol 50 mg tablet 50 - 100 mg PO Q6HP PRN pain 10/16/22 10/29/22 History nitrofurantoin 1 cap PO BID 10/29/22 10/29/22 History monohydrate/macrocrystals 100 mg capsule levofloxacin 750 mg tablet 750 mg PO Q24H #2 tabs 10/31/22 Rx Allergies Allergy/AdvReac Type Severity Reaction Status Date / Time cephalexin [From Keflex] Allergy Intermediate Swelling Verified 11/17/22 15:51 lidocaine Allergy Intermediate Blister Verified 11/17/22 15:51 Penicillins Allergy Mild Rash Verified 11/17/22 15:51 Anistreplase [From Eminase] Allergy Unknown UNKNOWN Verified 11/17/22 15:51 fenugreek Allergy Unknown UNKNOWN Verified 11/17/22 15:51 codeine AdvReac Mild Itching Verified 11/17/22 15:51 Erythromycin Base AdvReac Mild Itching Verified 11/17/22 15:51 Nortriptyline AdvReac Mild Nausea Verified 11/17/22 15:51 promethazine AdvReac Mild Fainting Verified 11/17/22 15:51 trulicity AdvReac Intermediate Other Uncoded 12/04/21 06:40 EXAM Constitutional Vitals: Temp Pulse Resp BP Pulse Ox O2 Del Method 97 F 93 H 19 124/47 100 Room Air 11/17/22 15:41 11/17/22 19:31 11/17/22 19:31 11/17/22 19:31 11/17/22 15:41 11/17/22 19:52 DATA Data Completed and Pending Labs: Labs from last 24 hours 11/17/22 11/17/22 11/17/22 17:51 17:51 17:51 WBC 9.7 RBC 4.47 Hgb 12.9 Hct 42.3 MCV 94.6 MCH 28.9 MCHC 30.5 L RDW 13.4 Plt Count 311 MPV 11.0 Immature Gran % (Auto) 0.7 H Neut % (Auto) 77.5 Lymph % (Auto) 15.3 L [place] % (Auto) 5.8 Eos % (Auto) 0 Baso % (Auto) 0.7 Lymph # (Auto) 1.49 L [place] # (Auto) 0.56 Eos # (Auto) 0 Baso # (Auto) 0.07 Immature Gran # 0.07 H Absolute Neutrophils 7.54 Sodium 125 L Potassium 5.0 Chloride 90 L Carbon Dioxide 5 L* Anion Gap 30.0 H BUN 35 H Creatinine 1.5 H GFR Calculation 33 Glucose 801 H* Calcium 8.5 L Total Bilirubin 0.4 AST 21 ALT 35 Alkaline Phosphatase 163 H Total Protein 6.8 Albumin 4.1 Globulin 2.7 Albumin/Globulin Ratio 1.5 Beta-Hydroxybutyrate 10.75 H TSH Pending A/P Narrative A/P Narrative: A: #DKA/HHS, severe: -Is noncompliant with home insulin #DM2 Poorly controlled insulin-dependent w/neuropathy: -A1c 11.0 #Metabolic acidosis, severe: #SUDARSHAN w/severe volume depletion: 2/2 above #h/o CAD: #Hypothyroidism: cont levothyroxine #Chronic pancreatitis: #Hypertriglyceridemia: #chronically elevated LFT's #Essential tremor: #chr back pain: #Long-term prognosis quite guarded with multiple admissions and poor compliance Plan: -insulin gtt -IVF's -Monitor electrolytes closely Replace electrolytes -Monitor renal function, avoid nephrotoxic meds -uop, i/o -check tsh/t4 -Continue home duloxetine/gabapentin -Continue her home pancreatic enzyme supplements, levothyroxine, fenofibrate -qhs snack when back on home regimen -Home medication reconciliation -PT/OT -CM for SNF placement -DVT prophylaxis: lovenox CODE STATUS: DNR Time Spent With Patient Time: Total time spent is greater than 50% in coordination of care (as documented) at patient's floor/unit and/or counseling patient: Critical Care Time: Yes Total Critical Care Time: 65
[2022-11-17 20:32] LABS: Phosphorous 4.9 mg/dL (2.5-4.5)
[2022-11-17] MEDS ORDERED: HYDROmorphone 0.5 MG/0.5 ML SYRINGE IV ONE (20:34)
[2022-11-17] MEDS ORDERED: SENNOSIDES 1 TABLET PO PRN (21:54)
[2022-11-17] MEDS ORDERED: POTASSIUM CHLORIDE 40 MEQ in DEXTROSE 5% IN WATER 500 ML IV PRN (21:54)
[2022-11-17] MEDS ORDERED: ACETAMINOPHEN 325 MG TABLET PO PRN (21:54)
[2022-11-17] MEDS ORDERED: ONDANSETRON 4 MG/2 ML VIAL IV PRN (21:54)
[2022-11-17] MEDS ORDERED: IPRATROPIUM/ALBUTEROL 3 ML AMPUL.NEB NEB PRN (21:54)
[2022-11-17] MEDS ORDERED: POLYETHYLENE GLYCOL 3350 17 GM PACKET PO PRN (21:54)
[2022-11-17] MEDS ORDERED: 0.9 % SODIUM CHLORIDE 1,000 ML IV SCH (21:54)
[2022-11-17] MEDS ORDERED: POTASSIUM CHLORIDE 20 MEQ TABLET PO PRN (21:54)
[2022-11-17] MEDS ORDERED: MAGNESIUM SULFATE 2 GM/50 ML BAG IV PRN (21:54)
[2022-11-17] MEDS ORDERED: INSULIN REGULAR, HUMAN 1 UNIT/0.01 ML UNIT ONE (22:53)
[2022-11-17] MEDS: 0.9 % SODIUM CHLORIDE 10 ML SYRINGE IV SCH (22:58)
[2022-11-17] MEDS: DOCUSATE SODIUM 100 MG CAPSULE PO SCH (23:35)
[2022-11-18] MEDS: 0.9 % SODIUM CHLORIDE 250 ML IV SCH ×2 (00:22→13:27)
[2022-11-18] MEDS: DEXTROSE 5%-NS 1,000 ML IV SCH ×4 (00:22→17:50)
[2022-11-18] MEDS: morphine 4 MG/ML VIAL IV PRN ×4 (00:25→19:28)
[2022-11-18] MEDS ORDERED: INSULIN REGULAR, HUMAN 1 UNIT/0.01 ML UNIT ONE (03:14)
[2022-11-18] MEDS: 0.9 % SODIUM CHLORIDE 10 ML SYRINGE IV SCH ×3 (06:23→22:00)
[2022-11-18 07:17] LABS: Basophils # (Auto) 0.05 K/mcL (0.00-0.30); Basophils % (Auto) 0.6 % (0.0-2.0); Eosinophils # (Auto) 0.13 K/mcL (0.00-0.70); Eosinophils % (Auto) 1.6 % (0.0-7.0); Hematocrit 33.5 % (34.1-44.9); Lymphocytes # (Auto) 2.76 K/mcL (1.50-4.80); Lymphocytes % (Auto) 33.8 % (15.5-49.0); Mean Cell Volume 89.6 fL (80.0-100.0); Mean Corpuscular HGB Conc 32.8 g/dL (31.0-36.0); Mean Platelet Volume 10.3 fL (8.8-12.5); Monocytes # (Auto) 0.93 K/mcL (0.10-0.90); Monocytes % (Auto) 11.4 % (1.0-12.0); Neutrophils % (Auto) 52.5 % (38.0-78.0); Platelet Count 204 K/mcL (140-440); RBC 3.74 M/mcL (3.59-5.38); Red Cell Distribution Width 13.5 % (11.5-14.5); WBC 8.2 K/mcL (4.5-11.0)
[2022-11-18 07:21] LABS: Appearance,Urine CLEAR (Clear); Bilirubin,Urine Negative (Negative); Color,Urine YELLOW; Culture Indicated,Urine No; Glucose,Urine (UA) >=500 mg/dL (Negative); Ketones,Urine 80 mg/dL (Negative); Leukocyte Esterase,Urine Negative /uL (Negative); Mucus,Urine FEW /hpf; Nitrate,Urine Negative (Negative); Protein,Urine Negative (Negative); Specific Gravity,Urine 1.017 (1.000-1.035); Urine Blood 0.03 mg/dL (Negative); Urine Hyaline Cast 1 /lph (0-2); Urine RBC 1 /hpf (0-3); Urine Squamous Epithelial Cell 1 /hpf (0-4); Urine Transitional Epi Cells < 1 /hpf (0-2); Urine WBC 6 /hpf (0-4); Urobilinogen,Urine Negative
[2022-11-18 07:45] LABS: ABG Methemoglobin 0.2 % (0.4-1.5); Total Hemoglobin 11.9 gm/Dl (12.0-15.0); VBG Base Excess -11 (-2-3); VBG HCO3 14.4 mmol/L (24.0-28.0); VBG Oxygen Saturation 91.1 % (40.0-70.0); VBG PH 7.27 U (7.32-7.42); VBG PO2 140.4 mmHg (25.0-40.0); VBG Total CO2 15.4 mmol/L (25.0-29.0)
--- NOTE | 2022-11-18 08:07 | Internal Med Progress Note ---
SUBJECTIVE Subjective Patient information: Note initiated : 11/18/22 at 8:04 am Service Date, if different from initiated Date: [] Patient: Tennille Castillo a 77 y/o F admitted on 11/17/22 for DKA. Chief Complaint: [] Interval history: History of present illness: Ms. Castillo is a 77 year old F Presents today for elevated blood glucose and weakness feeling like she is in DKA. Patient was last admitted in the middle of October for bronchitis. Pat ient states she has a little residual cough and shortness of breath but that is been improving. Patient states about a week ago she just cannot became progressively weak. She has not entirely compliant with her insulin and has not been taking it regularly and the past couple days she has not taken it at all. The daughter has been trying to get her into a nursing facility. Patient complains of severe weakness and not able to minimally get out of bed. She has chronic back pain which really bothers her. She has had some mild nausea but none today and no vomiting. She denies chest pain or shortness of breath. She denies diarrhea or constipation or abdominal pain. In the ED she is found to have a pH of 7.09 with a bicarb of 5. Beta hydroxybutyric acid of 10 with a BUN of 35 and creatinine 1.5 chloride at 90 and a sodium of 125 but that is not corrected for hyperglycemia. Her glucose was 801. Patient was given several fluid boluses in the ED as well as a regular insulin IV push and an insulin drip started. Patient denies any recent illnesses other than the acute bronchitis that she was admitted for in October. Patient is lethargic. 3/5 Still quite weak but she does feel like she is feeling a lot better. Beta hydroxybutyric acid still elevated but much improved. Anion gap resolved. Still mildly acidotic on VBG this morning. Bicarb low but improving. Hypophosphatemia. Replace electrolytes continue IV fluids. Insulin. Review of Systems: Pertinent positive as above. Denies headache/fever/chills/vomiting/chest or abdominal pain/diarrhea. Remaining 10 point review of system reviewed negative PHYSICAL EXAM General: Awake, no acute distress Eyes/N/T: EOMI, no scleral icterus, PERRL, dry MM Head/Neck: neck supple, full ROM, normocephalic atraumatic CV: RRR, 3/6SM, normal s1/s2 Pulm: Clear b/l, no wheezing/rhonchi/rales, no respiratory distress Abd: soft, nontender, +BS x4 Ext: no clubbing/cyanosis/edema, nontender Neuro: drowsy, no focal deficits, moves all extremities, CN 2-12 grossly intact, sensations intact b/l upper/lower Psychiatric: Skin: warm/dry, normal color Constitutional Vitals: Vital Signs Temp Pulse Resp BP Pulse Ox O2 Del Method 97.8 F 70 14 120/50 96 Room Air 11/18/22 05:14 11/18/22 08:00 11/18/22 08:00 11/18/22 08:00 11/18/22 08:00 11/18/22 05:14 Period Temp Pulse Resp BP Sys/Rosario Pulse Ox O2 Del Method O2 Flow Rate Last 24 Hr 97 F-98.0 F 70-103 10-28 96-161/38-56 96-100 Room Air-Room Air Intake and Output 11/17/22 11/18/22 11/18/22 19:59 03:59 11:59 Intake Total 1999 1589 1267 Output Total 1 1000 Balance 1999 1588 267 Weight 66.678 kg 62.097 kg Intake & Output: Intake & Output 11/17/22 11/18/22 11/18/22 19:59 03:59 11:59 Intake Total 1999 1589 1267 Output Total 1 1000 Balance 1999 1588 267 Weight 66.678 kg 62.097 kg Intake: IV 1999 1269 1027 Sodium Chloride 0.9% 1,000 ml @ 2000 1200 150 mls/hr IV .Q6H40M PEG Rx#: [id number] Sodium Chloride 0.9% 250 ml @ 39 23 20 mls/hr IV .[id number] PEG Rx#: [id number] Dextrose 5%-Ns IV Solution 1, 1000 000 ml @ 150 mls/hr IV .Q6H40M PEG Rx#:[id number] HumuLIN R 50 UNIT In Sodium 30 4 Chloride 0.9% 99.5 ml @ Per Protocol IV DUR PEG Rx#: [id number] Oral 320 240 Output: Void Amount 0 1000 # of times incontinent of urine 1 Other: Urine Appearance Clear Urine Color Yellow # Bowel Movements 0 OBJ DATA Labs 11/18/22 05:20 11/17/22 17:51 Labs: Abnormal Lab Results 11/18/22 11/18/22 11/18/22 05:56 05:20 05:20 Hgb 11.0 L Hct 33.5 L MCHC Immature Gran % (Auto) Lymph % (Auto) Lymph # (Auto) [place] # (Auto) 0.93 H Immature Gran # ABG Methemoglobin 0.2 L VBG pH 7.27 L VBG pCO2 32.0 L VBG pO2 140.4 H VBG HCO3 14.4 L VBG Total CO2 15.4 L VBG O2 Saturation 91.1 H VBG Base Excess -11 L Carboxyhemoglobin 6.9 H Total Hemoglobin 11.9 L Sodium Chloride Carbon Dioxide Anion Gap BUN Creatinine Glucose Osmolality Calcium Phosphorus Alkaline Phosphatase Beta-Hydroxybutyrate Free T4 Urine Glucose (UA) >=500 A Urine Ketones 80 A Urine WBC 6 H Urine Mucus Few A 11/17/22 11/17/22 11/17/22 22:11 17:51 17:51 Hgb Hct MCHC Immature Gran % (Auto) Lymph % (Auto) Lymph # (Auto) [place] # (Auto) Immature Gran # ABG Methemoglobin VBG pH VBG pCO2 VBG pO2 VBG HCO3 VBG Total CO2 VBG O2 Saturation VBG Base Excess Carboxyhemoglobin Total Hemoglobin Sodium Chloride Carbon Dioxide Anion Gap BUN Creatinine Glucose Osmolality 337 H Calcium Phosphorus 4.9 H Alkaline Phosphatase Beta-Hydroxybutyrate Free T4 0.60 L 0.66 L Urine Glucose (UA) Urine Ketones Urine WBC Urine Mucus 11/17/22 11/17/22 17:51 17:51 Hgb Hct MCHC 30.5 L Immature Gran % (Auto) 0.7 H Lymph % (Auto) 15.3 L Lymph # (Auto) 1.49 L [place] # (Auto) Immature Gran # 0.07 H ABG Methemoglobin VBG pH VBG pCO2 VBG pO2 VBG HCO3 VBG Total CO2 VBG O2 Saturation VBG Base Excess Carboxyhemoglobin Total Hemoglobin Sodium 125 L Chloride 90 L Carbon Dioxide 5 L* Anion Gap 30.0 H BUN 35 H Creatinine 1.5 H Glucose 801 H* Osmolality Calcium 8.5 L Phosphorus Alkaline Phosphatase 163 H Beta-Hydroxybutyrate 10.75 H Free T4 Urine Glucose (UA) Urine Ketones Urine WBC Urine Mucus Meds: Medications Acetaminophen (Acetaminophen 325 Mg Tablet) 650 mg PO Q6HP PRN; Protocol PRN Reason: Per Pain Protocol/Fever > 101 Hydrocodone Bitart/Acetaminophen (Hydrocodone/Apap 5/325mg Tablet) 1 tab PO Q4HP PRN PRN Reason: PAIN LEVEL 3-6 Albuterol/Ipratropium (Ipratropium/Albuterol 3 Ml Ampul.Neb) 3 ml NEB Q4HP PRN PRN Reason: Shortness Of Breath Diagnostic Test (Pha) (Accu-Chek 1 Each Strip) 1 each FS Q1 PEG Last Admin: 11/18/22 07:10 Dose: 1 each Docusate Sodium (Docusate Sodium 100 Mg Capsule) 100 mg PO BID [facility] Last Admin: 11/17/22 23:35 Dose: Not Given Enoxaparin Sodium (Enoxaparin 40 Mg/0.4 Ml Syringe) 40 mg SQ DAILY [facility] Insulin Human Regular 50 unit/ (Sodium Chloride) 100 mls @ 0 mls/hr IV DUR [facility]; Protocol Last Titration: 11/18/22 04:00 Dose: 0 mls/hr Potassium Chloride 40 meq/ (Dextrose) 520 mls @ 130 mls/hr IV UD PRN PRN Reason: Potassium < 3 Magnesium Sulfate (Magnesium Sulfate) 2 gm in 50 mls @ 50 mls/hr IV UD PRN PRN Reason: Magnesium </= 1.6 Sodium Chloride (Sodium Chloride 0.9%) 250 mls @ 20 mls/hr IV .[id number] [facility] Last Infusion: 11/18/22 04:10 Dose: 0 mls/hr Dextrose/Sodium Chloride (Dextrose 5%-Ns Iv Solution) 1,000 mls @ 150 mls/hr IV .Q6H40M [facility] Last Admin: 11/18/22 07:04 Dose: 150 mls/hr Morphine Sulfate (Morphine 4 Mg/Ml Vial) 0 mg IV Q3HP PRN PRN Reason: Pain Last Admin: 11/18/22 05:48 Dose: 3 mg Ondansetron HCl (Ondansetron 4 Mg/2 Ml Vial) 4 mg IV Q4HP PRN PRN Reason: Nausea And Vomiting Pantoprazole Sodium (Pantoprazole 40 Mg Vial) 40 mg IV QAMAC [facility] Polyethylene Glycol (Polyethylene Glycol 3350 17 Gm Packet) 17 gm PO DAILYP PRN PRN Reason: Constipation Potassium Chloride (Potassium Chloride 20 Meq Tablet) 40 meq PO UD PRN PRN Reason: Potssium is 3-3.5 Potassium Chloride (Potassium Chloride 20 Meq Tablet) 40 meq PO UD PRN PRN Reason: Potassium < 3 Senna (Sennosides 1 Tablet) 2 tab PO DAILYP PRN PRN Reason: Constipation Sodium Chloride (0.9 % Sodium Chloride 10 Ml Syringe) 10 ml IV Q8 PEG Last Admin: 11/18/22 06:23 Dose: Not Given ABG Interpretation ABG results: 11/18/22 05:20 ABG Methemoglobin 0.2 L VBG pH 7.27 L VBG pCO2 32.0 L VBG pO2 140.4 H VBG HCO3 14.4 L VBG Total CO2 15.4 L VBG O2 Saturation 91.1 H VBG Base Excess -11 L A/P Narrative A/P Narrative: A: #DKA/HHS, severe: -Is noncompliant with home insulin #Encephalopathy: 2/2 above, improving #DM2 Poorly controlled insulin-dependent w/neuropathy: -A1c 11.0 #Metabolic acidosis, severe:. #SUDARSHAN w/severe volume depletion: 2/2 above, improved #Hypophosphatemia: #h/o CAD: #Hypothyroidism: cont levothyroxine #Chronic pancreatitis: #Hypertriglyceridemia: #chronically elevated LFT's #Essential tremor: #chr back pain: #Long-term prognosis quite guarded with multiple admissions and poor compliance Plan: -insulin gtt -IVF's -Monitor electrolytes closely Replace electrolytes -Monitor renal function, avoid nephrotoxic meds -uop, i/o -f/u vbg/bhb -Continue home duloxetine/gabapentin -Continue her home pancreatic enzyme supplements, levothyroxine, fenofibrate -qhs snack when back on home regimen -PT/OT -CM for SNF placement -ppx: lovenox CODE STATUS: DNR Time Spent With Patient Time: Total time spent is greater than 50% in coordination of care (as documented) at patient's floor/unit and/or counseling patient: Subsequent: Total time with patient: 50 - 65 Minutes QUALITY Stroke Symptom Onset Unknown: No VTE Deep Vein Thrombosis/Pulmonary Embolism Present on Admission: No
[2022-11-18] MEDS ORDERED: traMADol 50 MG TABLET PO PRN (08:16)
[2022-11-18] MEDS: PANTOPRAZOLE 40 MG VIAL IV SCH (08:20)
[2022-11-18] MEDS ORDERED: PHOSPHORUS 250 MG TABLET PO SCH (09:00)
[2022-11-18] MEDS: INSULIN GLARGINE, HUMAN 1 UNIT/0.01 ML SQ SCH ×2 (09:52→20:20)
[2022-11-18] MEDS: PROPRANOLOL 10 MG TABLET PO SCH ×3 (09:53→20:19)
[2022-11-18] MEDS: DOCUSATE SODIUM 100 MG CAPSULE PO SCH ×2 (09:53→20:20)
[2022-11-18] MEDS: GABAPENTIN 400 MG CAPSULE PO SCH ×4 (09:53→20:19)
[2022-11-18] MEDS: LEVOTHYROXINE 125 MCG TABLET PO SCH (09:54)
[2022-11-18] MEDS: ENOXAPARIN 40 MG/0.4 ML SYRINGE SQ SCH (09:54)
[2022-11-18 10:09] LABS: Beta Hydroxybutyrate 2.42 mmol/L (<0.27)
[2022-11-18 10:20] LABS: ALT/SGPT 25 U/L (<40); AST/SGOT 18 U/L (<32); Albumin 3.4 gm/dL (3.2-5.2); Albumin/Globulin Ratio 1.6 (1.0-2.3); Alkaline Phosphatase 123 U/L (39-117); Bilirubin,Direct < 0.2 mg/dL (0-0.3); Bilirubin,Total 0.3 mg/dL (0.1-1.0); Blood Urea Nitrogen 30 mg/dL (8-23); Calcium 8.1 mg/dL (8.6-10.4); Carbon Dioxide 14 mmol/L (22-30); Chloride 104 mmol/L (96-108); Globulin 2.1 gm/dL (2.2-3.7); Glomerular Filtration Rate 54; Glucose 182 mg/dL (70-105); Lactate Dehydrogenase 172 U/L (135-225); Phosphorous 1.9 mg/dL (2.5-4.5); Triglycerides 105 mg/dL (<150); Uric Acid 9.9 mg/dL (2.5-8.0)
[2022-11-18] MEDS ORDERED: INSULIN REGULAR, HUMAN 1 UNIT/0.01 ML UNIT IV SCH (10:29)
[2022-11-18] MEDS: [UNRECOGNIZED DRUG - OTHER] PO SCH ×3 (10:57→19:28)
[2022-11-18] MEDS: LIPASE PROTEASE AMYLASE PO SCH ×3 (10:57→19:28)
[2022-11-18] MEDS ORDERED: POTASSIUM PHOSPHATE 20 MEQ in DEXTROSE 5% IN WATER 250 ML IV SCH (12:00)
[2022-11-18] MEDS ORDERED: 0.9 % SODIUM CHLORIDE 1,000 ML BAG IV ONE (12:13)
[2022-11-18] MEDS ORDERED: 0.9 % SODIUM CHLORIDE 1,000 ML IV SCH (12:30)
[2022-11-18] MEDS: PHOSPHORUS 250 MG TABLET PO SCH ×3 (12:42→20:19)
[2022-11-18] MEDS: HYDROcodone/APAP 5/325MG TABLET PO PRN (12:43)
[2022-11-18] MEDS: INSULIN LISPRO 1 UNIT/0.01 ML UNIT SQ SCH ×3 (14:47→20:11)
[2022-11-18] MEDS: diphenhydrAMINE 25 MG CAPSULE PO SCH (20:19)
[2022-11-19] MEDS: INSULIN LISPRO 1 UNIT/0.01 ML UNIT SQ SCH ×7 (00:38→23:54)
[2022-11-19] MEDS: 0.9 % SODIUM CHLORIDE 10 ML SYRINGE IV SCH ×3 (05:33→20:50)
[2022-11-19 06:25] LABS: ABG Methemoglobin 0.3 % (0.4-1.5); Total Hemoglobin 11.2 gm/Dl (12.0-15.0); VBG Base Excess -7 (-2-3); VBG HCO3 17.2 mmol/L (24.0-28.0); VBG Oxygen Saturation 89.9 % (40.0-70.0); VBG PCO2 29.6 mmHg (41.0-51.0); VBG PH 7.38 U (7.32-7.42); VBG PO2 140.8 mmHg (25.0-40.0); VBG Total CO2 18.1 mmol/L (25.0-29.0)
[2022-11-19 07:10] LABS: ALT/SGPT 22 U/L (<40); AST/SGOT 28 U/L (<32); Albumin 3.1 gm/dL (3.2-5.2); Albumin/Globulin Ratio 1.7 (1.0-2.3); Alkaline Phosphatase 117 U/L (39-117); Bilirubin,Direct < 0.2 mg/dL (0-0.3); Bilirubin,Total 0.2 mg/dL (0.1-1.0); Blood Urea Nitrogen 21 mg/dL (8-23); Calcium 8.1 mg/dL (8.6-10.4); Carbon Dioxide 15 mmol/L (22-30); Chloride 115 mmol/L (96-108); Globulin 1.8 gm/dL (2.2-3.7); Glomerular Filtration Rate 83; Glucose 206 mg/dL (70-105); Lactate Dehydrogenase 160 U/L (135-225); Phosphorous 2.4 mg/dL (2.5-4.5); Triglycerides 133 mg/dL (<150); Uric Acid 6.6 mg/dL (2.5-8.0)
[2022-11-19] MEDS: PANTOPRAZOLE 40 MG VIAL IV SCH (07:15)
--- NOTE | 2022-11-19 07:50 | Internal Med Progress Note ---
SUBJECTIVE Subjective Patient information: Note initiated : 11/19/22 at 7:46 am Service Date, if different from initiated Date: [] Patient: Tennille Castillo a 77 y/o F admitted on 11/17/22 for DKA. Chief Complaint: [] Interval history: History of present illness: Ms. Castillo is a 77 year old F Presents today for elevated blood glucose and weakness feeling like she is in DKA. Patient was last admitted in the middle of October for bronchitis. Pat ient states she has a little residual cough and shortness of breath but that is been improving. Patient states about a week ago she just cannot became progressively weak. She has not entirely compliant with her insulin and has not been taking it regularly and the past couple days she has not taken it at all. The daughter has been trying to get her into a nursing facility. Patient complains of severe weakness and not able to minimally get out of bed. She has chronic back pain which really bothers her. She has had some mild nausea but none today and no vomiting. She denies chest pain or shortness of breath. She denies diarrhea or constipation or abdominal pain. In the ED she is found to have a pH of 7.09 with a bicarb of 5. Beta hydroxybutyric acid of 10 with a BUN of 35 and creatinine 1.5 chloride at 90 and a sodium of 125 but that is not corrected for hyperglycemia. Her glucose was 801. Patient was given several fluid boluses in the ED as well as a regular insulin IV push and an insulin drip started. Patient denies any recent illnesses other than the acute bronchitis that she was admitted for in October. Patient is lethargic. 3/5 Still quite weak but she does feel like she is feeling a lot better. Beta hydroxybutyric acid still elevated but much improved. Anion gap resolved. Still mildly acidotic on VBG this morning. Bicarb low but improving. Hypophosphatemia. Replace electrolytes continue IV fluids. Insulin. 3/6 Again patient still very weak with very gradual improvement. Acid-base status is much better. Patient on subcu insulin now. Metabolic acidosis still noted but better. Monitor sugars closely and adjust insulin as needed. Continue to work with PT. Review of Systems: Pertinent positive as above. Denies headache/fever/chills/vomiting/chest or abdominal pain/diarrhea. Remaining 10 point review of system reviewed negative PHYSICAL EXAM General: Awake, no acute distress Eyes/N/T: EOMI, no scleral icterus, Head/Neck: neck supple, full ROM, normocephalic atraumatic CV: RRR, 3/6SM, normal s1/s2 Pulm: Clear b/l, no wheezing/rhonchi/rales, no respiratory distress Abd: soft, nontender, +BS x4 Ext: no clubbing/cyanosis/edema, nontender Neuro: drowsy, no focal deficits, moves all extremities, CN 2-12 grossly intact, sensations intact b/l upper/lower Psychiatric: Skin: warm/dry, normal color Constitutional Vitals: Vital Signs Temp Pulse Resp BP Pulse Ox O2 Del Method O2 Flow Rate 97.8 F 55 L 12 110/56 93 Room Air 0 11/19/22 04:00 11/19/22 07:01 11/19/22 07:01 11/19/22 07:01 11/19/22 07:01 11/19/22 07:01 11/19/22 04:00 Period Temp Pulse Resp BP Sys/Rosario Pulse Ox O2 Del Method O2 Flow Rate Last 24 Hr 97 F-98.7 F 55-70 7-19 98-131/34-118 91-100 Room Air-Room Air 0-0 Intake and Output 11/18/22 11/19/22 11/19/22 19:59 03:59 11:59 Intake Total 6390 086.5030 Output Total 800 0 Balance 6856 386.3719 0 Weight 65.091 kg Intake & Output: Intake & Output 11/18/22 11/19/22 11/19/22 19:59 03:59 11:59 Intake Total 8493 116.3045 Output Total 800 0 Balance 2009 383.6774 0 Weight 65.091 kg Intake: IV 713 179.4971 Sodium Chloride 0.9% 250 ml @ 101 20 mls/hr IV .[id number] PEG Rx#: [id number] Dextrose 5%-Ns IV Solution 1, 790 000 ml @ 150 mls/hr IV .[id number] PEG Rx#:[id number] HumuLIN R 50 UNIT In Sodium 3 Chloride 0.9% 99.5 ml @ Per Protocol IV DUR PEG Rx#: [id number] Potassium Phosphate 20 Meq In 254.5455 Dextrose 5% in Water 250 ml @ 31.818 mls/hr IV ONCE [facility] Rx#: [id number] Oral 960 Output: Void Amount 800 0 Other: Meal snack Percent of Meal Consumed 100% Feeding Ability Assist with Tray Set Up Urine Color Yellow # Bowel Movements 0 OBJ DATA Labs 11/18/22 05:20 11/19/22 05:06 Labs: Abnormal Lab Results 11/19/22 11/19/22 11/18/22 05:06 05:06 05:56 Hgb Hct MCHC Immature Gran % (Auto) Lymph % (Auto) Lymph # (Auto) [place] # (Auto) Immature Gran # ABG Methemoglobin 0.3 L VBG pH VBG pCO2 29.6 L VBG pO2 140.8 H VBG HCO3 17.2 L VBG Total CO2 18.1 L VBG O2 Saturation 89.9 H VBG Base Excess -7 L Carboxyhemoglobin 7.7 H Total Hemoglobin 11.2 L Sodium Chloride 115 H Carbon Dioxide 15 L Anion Gap BUN Creatinine Glucose 206 H Osmolality Uric Acid Calcium 8.1 L Phosphorus 2.4 L GGT 78 H Alkaline Phosphatase Total Protein 4.9 L Albumin 3.1 L Globulin 1.8 L Beta-Hydroxybutyrate Free T4 Urine Glucose (UA) >=500 A Urine Ketones 80 A Urine WBC 6 H Urine Mucus Few A 11/18/22 11/18/22 11/18/22 05:20 05:20 05:20 Hgb 11.0 L Hct 33.5 L MCHC Immature Gran % (Auto) Lymph % (Auto) Lymph # (Auto) [place] # (Auto) 0.93 H Immature Gran # ABG Methemoglobin 0.2 L VBG pH 7.27 L VBG pCO2 32.0 L VBG pO2 140.4 H VBG HCO3 14.4 L VBG Total CO2 15.4 L VBG O2 Saturation 91.1 H VBG Base Excess -11 L Carboxyhemoglobin 6.9 H Total Hemoglobin 11.9 L Sodium 131 L Chloride Carbon Dioxide 14 L Anion Gap BUN 30 H Creatinine Glucose 182 H Osmolality Uric Acid 9.9 H Calcium 8.1 L Phosphorus 1.9 L GGT 91 H Alkaline Phosphatase 123 H Total Protein 5.5 L Albumin Globulin 2.1 L Beta-Hydroxybutyrate 2.42 H Free T4 Urine Glucose (UA) Urine Ketones Urine WBC Urine Mucus 03/01/0611/17/22 11/17/22 22:11 17:51 17:51 Hgb Hct MCHC Immature Gran % (Auto) Lymph % (Auto) Lymph # (Auto) [place] # (Auto) Immature Gran # ABG Methemoglobin VBG pH VBG pCO2 VBG pO2 VBG HCO3 VBG Total CO2 VBG O2 Saturation VBG Base Excess Carboxyhemoglobin Total Hemoglobin Sodium Chloride Carbon Dioxide Anion Gap BUN Creatinine Glucose Osmolality 337 H Uric Acid Calcium Phosphorus 4.9 H GGT Alkaline Phosphatase Total Protein Albumin Globulin Beta-Hydroxybutyrate Free T4 0.60 L 0.66 L Urine Glucose (UA) Urine Ketones Urine WBC Urine Mucus 11/17/22 11/17/22 17:51 17:51 Hgb Hct MCHC 30.5 L Immature Gran % (Auto) 0.7 H Lymph % (Auto) 15.3 L Lymph # (Auto) 1.49 L [place] # (Auto) Immature Gran # 0.07 H ABG Methemoglobin VBG pH VBG pCO2 VBG pO2 VBG HCO3 VBG Total CO2 VBG O2 Saturation VBG Base Excess Carboxyhemoglobin Total Hemoglobin Sodium 125 L Chloride 90 L Carbon Dioxide 5 L* Anion Gap 30.0 H BUN 35 H Creatinine 1.5 H Glucose 801 H* Osmolality Uric Acid Calcium 8.5 L Phosphorus GGT Alkaline Phosphatase 163 H Total Protein Albumin Globulin Beta-Hydroxybutyrate 10.75 H Free T4 Urine Glucose (UA) Urine Ketones Urine WBC Urine Mucus Meds: Medications Acetaminophen (Acetaminophen 325 Mg Tablet) 650 mg PO Q6HP PRN; Protocol PRN Reason: Per Pain Protocol/Fever > 101 Hydrocodone Bitart/Acetaminophen (Hydrocodone/Apap 5/325mg Tablet) 1 tab PO Q4HP PRN PRN Reason: PAIN LEVEL 3-6 Last Admin: 11/18/22 12:43 Dose: 1 tab Albuterol/Ipratropium (Ipratropium/Albuterol 3 Ml Ampul.Neb) 3 ml NEB Q4HP PRN PRN Reason: Shortness Of Breath Diagnostic Test (Pha) (Accu-Chek 1 Each Strip) 1 each FS Q4 PEG Last Admin: 11/19/22 05:32 Dose: 1 each Diphenhydramine HCl (Diphenhydramine 25 Mg Capsule) 50 mg PO QHS PEG Last Admin: 11/18/22 20:19 Dose: 50 mg Docusate Sodium (Docusate Sodium 100 Mg Capsule) 100 mg PO BID [facility] Last Admin: 11/18/22 20:20 Dose: 100 mg Enoxaparin Sodium (Enoxaparin 40 Mg/0.4 Ml Syringe) 40 mg SQ DAILY [facility] Last Admin: 11/18/22 09:54 Dose: 40 mg Gabapentin (Gabapentin 400 Mg Capsule) 400 mg PO QID [facility] Last Admin: 11/18/22 20:19 Dose: 400 mg Hyoscyamine (Hyoscyamine Sulfate 0.125 Mg Tablet) 0.125 mg SL Q6HP PRN PRN Reason: muscle spasm Insulin Human Regular 50 unit/ (Sodium Chloride) 100 mls @ 0 mls/hr IV DUR [facility]; Protocol Last Titration: 11/18/22 17:51 Dose: Infused Potassium Chloride 40 meq/ (Dextrose) 520 mls @ 130 mls/hr IV UD PRN PRN Reason: Potassium < 3 Magnesium Sulfate (Magnesium Sulfate) 2 gm in 50 mls @ 50 mls/hr IV UD PRN PRN Reason: Magnesium </= 1.6 Insulin Glargine (Insulin Glargine, Human 1 Unit/0.01 Ml) 20 unit SQ BID [facility] Last Admin: 11/18/22 20:20 Dose: 20 units Insulin Human Lispro (Insulin Lispro 1 Unit/0.01 Ml Unit) 0 unit SQ Q4 [facility]; Protocol Last Admin: 11/19/22 05:32 Dose: 4 units Levothyroxine Sodium ([facility]othy[facility]ine 125 Mcg Tablet) [facility] Last Admin: 11/18/22 09:54 Dose: 125 mcg Morphine Sulfate (Morphine 4 Mg/Ml Vial) 0 mg IV Q3HP PRN PRN Reason: Pain Last Admin: 11/18/22 19:28 Dose: 3 mg Ondansetron HCl (Ondansetron 4 Mg/2 Ml Vial) 4 mg IV Q4HP PRN PRN Reason: Nausea And Vomiting Pantoprazole Sodium (Pantoprazole 40 Mg Vial) [facility] Last Admin: 11/19/22 07:15 Dose: 40 mg Lipase-Protease- Amylase [Zenpep] 40, 000-126,000- 1 dose PO TID [facility] Last Admin: 11/18/22 19:28 Dose: 1 dose Polyethylene Glycol (Polyethylene Glycol 3350 17 Gm Packet) 17 gm PO DAILYP PRN PRN Reason: Constipation Potassium Chloride (Potassium Chloride 20 Meq Tablet) 40 meq PO UD PRN PRN Reason: Potssium is 3-3.5 Potassium Chloride (Potassium Chloride 20 Meq Tablet) 40 meq PO UD PRN PRN Reason: Potassium < 3 Propranolol HCl (Propranolol 10 Mg Tablet) 10 mg PO TID [facility] Last Admin: 11/18/22 20:19 Dose: 10 mg Senna (Sennosides 1 Tablet) 2 tab PO DAILYP PRN PRN Reason: Constipation Last Admin: 11/18/22 20:20 Dose: 2 tab Sodium Chloride (0.9 % Sodium Chloride 10 Ml Syringe) 10 ml IV Q8 [facility] Last Admin: 11/19/22 05:33 Dose: 10 ml Sodium Phosphate (Phosphorus 250 Mg Tablet) 250 mg PO QID [facility] Stop: 11/19/22 09:01 Last Admin: 11/18/22 20:19 Dose: 250 mg Tramadol HCl (Tramadol 50 Mg Tablet) 50 mg PO Q6HP PRN PRN Reason: pain Trazodone HCl (Trazodone Hcl 100 Mg Tablet) 100 mg PO HSP PRN PRN Reason: insomnia ABG Interpretation ABG results: 11/18/22 11/19/22 05:20 05:06 ABG Methemoglobin 0.2 L 0.3 L VBG pH 7.27 L 7.38 VBG pCO2 32.0 L 29.6 L VBG pO2 140.4 H 140.8 H VBG HCO3 14.4 L 17.2 L VBG Total CO2 15.4 L 18.1 L VBG O2 Saturation 91.1 H 89.9 H VBG Base Excess -11 L -7 L A/P Narrative A/P Narrative: A: #DKA-HHS, severe: resolved -Is noncompliant with home insulin #Encephalopathy: 2/2 above, improving #DM2 Poorly controlled insulin-dependent w/neuropathy: -A1c 11.0 #Metabolic acidosis, severe: improving #SUDARSHAN w/severe volume depletion: 2/2 above, improved #Hypophosphatemia: #h/o CAD: #Hypothyroidism: cont levothyroxine #Chronic pancreatitis: #Hypertriglyceridemia: #chronically elevated LFT's #Essential tremor: #chr back pain: #Long-term prognosis quite guarded with multiple admissions and poor compliance Plan: -insulin gtt to SQ and SSI -IVF's d/c -Monitor electrolytes closely Replace electrolytes -Monitor renal function, avoid nephrotoxic meds -uop, i/o -f/u vbg/bhb -Continue home duloxetine/gabapentin -Continue her home pancreatic enzyme supplements, levothyroxine, fenofibrate -qhs snack when back on home regimen -PT/OT -CM for SNF placement -ppx: lovenox CODE STATUS: DNR Time Spent With Patient Time: Total time spent is greater than 50% in coordination of care (as documented) at patient's floor/unit and/or counseling patient: Subsequent: Total time with patient: 35 - 49 minutes QUALITY Stroke Symptom Onset Unknown: No VTE Deep Vein Thrombosis/Pulmonary Embolism Present on Admission: No
[2022-11-19] MEDS: DOCUSATE SODIUM 100 MG CAPSULE PO SCH ×2 (08:03→20:32)
[2022-11-19] MEDS: GABAPENTIN 400 MG CAPSULE PO SCH ×4 (08:03→20:49)
[2022-11-19] MEDS: LEVOTHYROXINE 125 MCG TABLET PO SCH (08:03)
[2022-11-19] MEDS: PHOSPHORUS 250 MG TABLET PO SCH (08:03)
[2022-11-19] MEDS: PROPRANOLOL 10 MG TABLET PO SCH ×3 (08:03→20:49)
[2022-11-19] MEDS: ENOXAPARIN 40 MG/0.4 ML SYRINGE SQ SCH (08:03)
[2022-11-19] MEDS: SODIUM BICARBONATE 650 MG TABLET PO SCH ×3 (08:03→20:49)
[2022-11-19] MEDS: HYDROcodone/APAP 5/325MG TABLET PO PRN ×3 (08:08→19:17)
[2022-11-19] MEDS: LIPASE PROTEASE AMYLASE PO SCH ×3 (08:59→20:50)
[2022-11-19] MEDS: [UNRECOGNIZED DRUG - OTHER] PO SCH ×3 (08:59→20:50)
[2022-11-19] MEDS: INSULIN GLARGINE, HUMAN 1 UNIT/0.01 ML SQ SCH ×2 (09:00→20:49)
--- NOTE | 2022-11-19 13:20 | Internal Med Progress Note ---
SUBJECTIVE Subjective Patient information: Note initiated : 11/19/22 at 1:19 pm Service Date, if different from initiated Date: [] Patient: Tennille Castillo a 77 y/o F admitted on 11/17/22 for DKA. Chief Complaint: [] Interval history: History of present illness: Ms. Castillo is a 77 year old F Presents today for elevated blood glucose and weakness feeling like she is in DKA. Patient was last admitted in the middle of October for bronchitis. Pat ient states she has a little residual cough and shortness of breath but that is been improving. Patient states about a week ago she just cannot became progressively weak. She has not entirely compliant with her insulin and has not been taking it regularly and the past couple days she has not taken it at all. The daughter has been trying to get her into a nursing facility. Patient complains of severe weakness and not able to minimally get out of bed. She has chronic back pain which really bothers her. She has had some mild nausea but none today and no vomiting. She denies chest pain or shortness of breath. She denies diarrhea or constipation or abdominal pain. In the ED she is found to have a pH of 7.09 with a bicarb of 5. Beta hydroxybutyric acid of 10 with a BUN of 35 and creatinine 1.5 chloride at 90 and a sodium of 125 but that is not corrected for hyperglycemia. Her glucose was 801. Patient was given several fluid boluses in the ED as well as a regular insulin IV push and an insulin drip started. Patient denies any recent illnesses other than the acute bronchitis that she was admitted for in October. Patient is lethargic. 3/5 Still quite weak but she does feel like she is feeling a lot better. Beta hydroxybutyric acid still elevated but much improved. Anion gap resolved. Still mildly acidotic on VBG this morning. Bicarb low but improving. Hypophosphatemia. Replace electrolytes continue IV fluids. Insulin. 36 Again patient still very weak with very gradual improvement. Acid-base status is much better. Patient on subcu insulin now. Metabolic acidosis still noted but better. Monitor sugars closely and adjust insulin as needed. Continue to work with PT. 3/7 No significant events overnight. Blood sugar slightly elevated. LFTs slightly elevated, will continue to monitor. Discussed low intensity rehab with the patient, she would prefer to go home but will think about senior care facility for rehab. Physical Exam Head: Atraumatic, normal inspection. Eyes: normal appearance, no scleral icterus. Neck: full ROM Respiratory: no respiratory distress. Cardiovascular: normal rate and rhythm, S1, S2. GI/Abdominal: soft, nontender, no guarding. Extremities: full range of motion, nontender. Neurological: CN II-XII intact, intact motor, intact sensation. Psychiatric: normal mood. Skin: warm, normal color Constitutional Vitals: Vital Signs Temp Pulse Resp BP Pulse Ox O2 Del Method O2 Flow Rate 97.1 F 57 L 13 116/49 98 Room Air 0 11/19/22 12:01 11/19/22 12:01 11/19/22 12:01 11/19/22 12:01 11/19/22 12:01 11/19/22 12:01 11/19/22 04:00 Period Temp Pulse Resp BP Sys/Rosario Pulse Ox O2 Del Method O2 Flow Rate Last 24 Hr 97 F-98.7 F 55-72 7-21 98-131/34-118 91-100 Room Air-Room Air 0-0 Intake and Output 11/19/22 11/19/22 11/19/22 03:59 11:59 19:59 Intake Total 254.5455 1000 Output Total 0 Balance 254.5455 1000 Weight 65.091 kg Intake & Output: Intake & Output 11/19/22 11/19/22 11/19/22 03:59 11:59 19:59 Intake Total 254.5455 1000 Output Total 0 Balance 254.5455 1000 Weight 65.091 kg Intake: IV 254.5455 1000 Sodium Chloride 0.9% 1,000 ml @ 1000 75 mls/hr IV ONCE PEG Rx#: [id number] Potassium Phosphate 20 Meq In 254.5455 Dextrose 5% in Water 250 ml @ 31.818 mls/hr IV ONCE PEG Rx#: [id number] Output: Void Amount 0 Other: Meal Breakfast Percent of Meal Consumed 100% Feeding Ability Assist with Tray Set Up # Bowel Movements 0 OBJ DATA Labs 11/18/22 05:20 11/19/22 05:06 Labs: Abnormal Lab Results 11/19/22 11/19/22 11/18/22 05:06 05:06 05:56 Hgb Hct MCHC Immature Gran % (Auto) Lymph % (Auto) Lymph # (Auto) [place] # (Auto) Immature Gran # ABG Methemoglobin 0.3 L VBG pH VBG pCO2 29.6 L VBG pO2 140.8 H VBG HCO3 17.2 L VBG Total CO2 18.1 L VBG O2 Saturation 89.9 H VBG Base Excess -7 L Carboxyhemoglobin 7.7 H Total Hemoglobin 11.2 L Sodium Chloride 115 H Carbon Dioxide 15 L Anion Gap BUN Creatinine Glucose 206 H Osmolality Uric Acid Calcium 8.1 L Phosphorus 2.4 L GGT 78 H Alkaline Phosphatase Total Protein 4.9 L Albumin 3.1 L Globulin 1.8 L Beta-Hydroxybutyrate Free T4 Urine Glucose (UA) >=500 A Urine Ketones 80 A Urine WBC 6 H Urine Mucus Few A 11/18/22 11/18/22 11/18/22 05:20 05:20 05:20 Hgb 11.0 L Hct 33.5 L MCHC Immature Gran % (Auto) Lymph % (Auto) Lymph # (Auto) [place] # (Auto) 0.93 H Immature Gran # ABG Methemoglobin 0.2 L VBG pH 7.27 L VBG pCO2 32.0 L VBG pO2 140.4 H VBG HCO3 14.4 L VBG Total CO2 15.4 L VBG O2 Saturation 91.1 H VBG Base Excess -11 L Carboxyhemoglobin 6.9 H Total Hemoglobin 11.9 L Sodium 131 L Chloride Carbon Dioxide 14 L Anion Gap BUN 30 H Creatinine Glucose 182 H Osmolality Uric Acid 9.9 H Calcium 8.1 L Phosphorus 1.9 L GGT 91 H Alkaline Phosphatase 123 H Total Protein 5.5 L Albumin Globulin 2.1 L Beta-Hydroxybutyrate 2.42 H Free T4 Urine Glucose (UA) Urine Ketones Urine WBC Urine Mucus 11/17/22 11/17/22 11/17/22 22:11 17:51 17:51 Hgb Hct MCHC Immature Gran % (Auto) Lymph % (Auto) Lymph # (Auto) [place] # (Auto) Immature Gran # ABG Methemoglobin VBG pH VBG pCO2 VBG pO2 VBG HCO3 VBG Total CO2 VBG O2 Saturation VBG Base Excess Carboxyhemoglobin Total Hemoglobin Sodium Chloride Carbon Dioxide Anion Gap BUN Creatinine Glucose Osmolality 337 H Uric Acid Calcium Phosphorus 4.9 H GGT Alkaline Phosphatase Total Protein Albumin Globulin Beta-Hydroxybutyrate Free T4 0.60 L 0.66 L Urine Glucose (UA) Urine Ketones Urine WBC Urine Mucus 11/17/22 11/17/22 17:51 17:51 Hgb Hct MCHC 30.5 L Immature Gran % (Auto) 0.7 H Lymph % (Auto) 15.3 L Lymph # (Auto) 1.49 L [place] # (Auto) Immature Gran # 0.07 H ABG Methemoglobin VBG pH VBG pCO2 VBG pO2 VBG HCO3 VBG Total CO2 VBG O2 Saturation VBG Base Excess Carboxyhemoglobin Total Hemoglobin Sodium 125 L Chloride 90 L Carbon Dioxide 5 L* Anion Gap 30.0 H BUN 35 H Creatinine 1.5 H Glucose 801 H* Osmolality Uric Acid Calcium 8.5 L Phosphorus GGT Alkaline Phosphatase 163 H Total Protein Albumin Globulin Beta-Hydroxybutyrate 10.75 H Free T4 Urine Glucose (UA) Urine Ketones Urine WBC Urine Mucus Meds: Medications Acetaminophen (Acetaminophen 325 Mg Tablet) 650 mg PO Q6HP PRN; Protocol PRN Reason: Per Pain Protocol/Fever > 101 Hydrocodone Bitart/Acetaminophen (Hydrocodone/Apap 5/325mg Tablet) 1 tab PO Q4HP PRN PRN Reason: PAIN LEVEL 3-6 Last Admin: 11/19/22 08:08 Dose: 1 tab Albuterol/Ipratropium (Ipratropium/Albuterol 3 Ml Ampul.Neb) 3 ml NEB Q4HP PRN PRN Reason: Shortness Of Breath Diagnostic Test (Pha) (Accu-Chek 1 Each Strip) 1 each FS Q4 [facility] Last Admin: 11/19/22 11:51 Dose: 1 each Diphenhydramine HCl (Diphenhydramine 25 Mg Capsule) 50 mg PO QHS [facility] Last Admin: 11/18/22 20:19 Dose: 50 mg Docusate Sodium (Docusate Sodium 100 Mg Capsule) 100 mg PO BID [facility] Last Admin: 11/19/22 08:03 Dose: 100 mg Enoxaparin Sodium (Enoxaparin 40 Mg/0.4 Ml Syringe) 40 mg SQ DAILY [facility] Last Admin: 11/19/22 08:03 Dose: 40 mg Gabapentin (Gabapentin 400 Mg Capsule) 400 mg PO QID [facility] Last Admin: 11/19/22 08:03 Dose: 400 mg Hyoscyamine (Hyoscyamine Sulfate 0.125 Mg Tablet) 0.125 mg SL Q6HP PRN PRN Reason: muscle spasm Insulin Human Regular 50 unit/ (Sodium Chloride) 100 mls @ 0 mls/hr IV DUR [facility]; Protocol Last Titration: 11/18/22 17:51 Dose: Infused Potassium Chloride 40 meq/ (Dextrose) 520 mls @ 130 mls/hr IV UD PRN PRN Reason: Potassium < 3 Magnesium Sulfate (Magnesium Sulfate) 2 gm in 50 mls @ 50 mls/hr IV UD PRN PRN Reason: Magnesium </= 1.6 Insulin Glargine (Insulin Glargine, Human 1 Unit/0.01 Ml) 20 unit SQ BID [facility] Last Admin: 11/19/22 09:00 Dose: 20 units Insulin Human Lispro (Insulin Lispro 1 Unit/0.01 Ml Unit) 0 unit SQ Q4 [facility]; Protocol Last Admin: 11/19/22 11:51 Dose: Not Given Levothyroxine Sodium ([facility] 125 Mcg Tablet) [facility] Admin: 11/19/22 08:03 Dose: 125 mcg Morphine Sulfate (Morphine 4 Mg/Ml Vial) 0 mg IV Q3HP PRN PRN Reason: Pain Last Admin: 11/18/22 19:28 Dose: 3 mg Ondansetron HCl (Ondansetron 4 Mg/2 Ml Vial) 4 mg IV Q4HP PRN PRN Reason: Nausea And Vomiting Pantoprazole Sodium (Pantoprazole 40 Mg Vial) [facility] Last Admin: 11/19/22 07:15 Dose: 40 mg Lipase-Protease- Amylase [Zenpep] 40, 000-126,000- 1 dose PO TID [facility] Last Admin: 11/19/22 08:59 Dose: 1 dose Polyethylene Glycol (Polyethylene Glycol 3350 17 Gm Packet) 17 gm PO DAILYP PRN PRN Reason: Constipation Potassium Chloride (Potassium Chloride 20 Meq Tablet) 40 meq PO UD PRN PRN Reason: Potssium is 3-3.5 Potassium Chloride (Potassium Chloride 20 Meq Tablet) 40 meq PO UD PRN PRN Reason: Potassium < 3 Propranolol HCl (Propranolol 10 Mg Tablet) 10 mg PO TID [facility] Last Admin: 11/19/22 08:03 Dose: 10 mg Senna (Sennosides 1 Tablet) 2 tab PO DAILYP PRN PRN Reason: Constipation Last Admin: 11/18/22 20:20 Dose: 2 tab Sodium Bicarbonate (Sodium Bicarbonate 650 Mg Tablet) 1,300 mg PO TID [facility] Stop: 11/19/22 21:01 Last Admin: 11/19/22 08:03 Dose: 1,300 mg Sodium Chloride (0.9 % Sodium Chloride 10 Ml Syringe) 10 ml IV Q8 PEG Last Admin: 11/19/22 05:33 Dose: 10 ml Tramadol HCl (Tramadol 50 Mg Tablet) 50 mg PO Q6HP PRN PRN Reason: pain Trazodone HCl (Trazodone Hcl 100 Mg Tablet) 100 mg PO HSP PRN PRN Reason: insomnia ABG Interpretation ABG results: 11/18/22 11/19/22 05:20 05:06 ABG Methemoglobin 0.2 L 0.3 L VBG pH 7.27 L 7.38 VBG pCO2 32.0 L 29.6 L VBG pO2 140.4 H 140.8 H VBG HCO3 14.4 L 17.2 L VBG Total CO2 15.4 L 18.1 L VBG O2 Saturation 91.1 H 89.9 H VBG Base Excess -11 L -7 L A/P Narrative A/P Narrative: Assessment: #Resolved DKA-HHS -Secondary to noncompliance with insulin #Resolved encephalopathy #DM2 Poorly controlled insulin-dependent w/neuropathy: -A1c 11.0 #Transaminitis #Resolved prerenal SUDARSHAN #Hypophosphatemia: #h/o CAD: #Hypothyroidism: cont levothyroxine #Chronic pancreatitis: #Hypertriglyceridemia: #chronically elevated LFT's #Essential tremor: #chr back pain: #Long-term prognosis quite guarded with multiple admissions and poor compliance Plan: -Continue basal bolus insulin regimen. -Replace electrolytes as needed. -Monitor LFTs. -Monitor renal function, avoid nephrotoxic meds -Continue home duloxetine/gabapentin -Continue home pancreatic enzyme supplements, levothyroxine, fenofibrate -qhs snack when back on home regimen -PT/OT -CM for SNF placement -ppx: lovenox -CODE STATUS: DNR Time Spent With Patient Time: Total time spent is greater than 50% in coordination of care (as documented) at patient's floor/unit and/or counseling patient: QUALITY Stroke Symptom Onset Unknown: No VTE Deep Vein Thrombosis/Pulmonary Embolism Present on Admission: No
[2022-11-19] MEDS: POTASSIUM CHLORIDE 20 MEQ TABLET PO PRN (17:45)
[2022-11-19] MEDS: diphenhydrAMINE 25 MG CAPSULE PO SCH (20:48)
[2022-11-19] MEDS: traZODone HCL 100 MG TABLET PO PRN (20:49)
[2022-11-19] MEDS: HYOSCYAMINE SULFATE 0.125 MG TABLET SL PRN (23:04)
[2022-11-20] MEDS: INSULIN LISPRO 1 UNIT/0.01 ML UNIT SQ SCH ×6 (05:19→23:41)
[2022-11-20] MEDS: 0.9 % SODIUM CHLORIDE 10 ML SYRINGE IV SCH ×3 (05:20→20:52)
[2022-11-20] MEDS: HYDROcodone/APAP 5/325MG TABLET PO PRN (05:35)
[2022-11-20 07:34] LABS: ALT/SGPT 64 U/L (<40); AST/SGOT 177 U/L (<32); Albumin/Globulin Ratio 1.4 (1.0-2.3); Alkaline Phosphatase 128 U/L (39-117); Bilirubin,Direct < 0.2 mg/dL (0-0.3); Bilirubin,Total 0.2 mg/dL (0.1-1.0); Blood Urea Nitrogen 13 mg/dL (8-23); Carbon Dioxide 20 mmol/L (22-30); Chloride 109 mmol/L (96-108); Globulin 2.2 gm/dL (2.2-3.7); Glomerular Filtration Rate 93; Glucose 154 mg/dL (70-105); Lactate Dehydrogenase 246 U/L (135-225); Phosphorous 0.9 mg/dL (2.5-4.5); Triglycerides 335 mg/dL (<150); Uric Acid 4.9 mg/dL (2.5-8.0)
[2022-11-20] MEDS: LEVOTHYROXINE 125 MCG TABLET PO SCH (08:04)
[2022-11-20] MEDS: PROPRANOLOL 10 MG TABLET PO SCH ×3 (08:04→20:38)
[2022-11-20] MEDS: GABAPENTIN 400 MG CAPSULE PO SCH ×4 (08:04→20:38)
[2022-11-20] MEDS: PANTOPRAZOLE 40 MG VIAL IV SCH (08:04)
[2022-11-20] MEDS: DOCUSATE SODIUM 100 MG CAPSULE PO SCH ×2 (08:04→20:40)
[2022-11-20] MEDS: ENOXAPARIN 40 MG/0.4 ML SYRINGE SQ SCH (08:05)
[2022-11-20] MEDS: LIPASE PROTEASE AMYLASE PO SCH ×5 (08:11→20:43)
[2022-11-20] MEDS: [UNRECOGNIZED DRUG - OTHER] PO SCH ×5 (08:11→20:43)
[2022-11-20] MEDS: INSULIN GLARGINE, HUMAN 1 UNIT/0.01 ML SQ SCH ×2 (08:26→20:39)
[2022-11-20] MEDS ORDERED: POTASSIUM PHOSPHATE 40 MEQ in DEXTROSE 5% IN WATER 500 ML IV ONE (10:29)
[2022-11-20] MEDS: diphenhydrAMINE 25 MG CAPSULE PO SCH (20:38)
[2022-11-20] MEDS: traZODone HCL 100 MG TABLET PO PRN (23:36)
[2022-11-21] MEDS: INSULIN LISPRO 1 UNIT/0.01 ML UNIT SQ SCH ×5 (04:06→20:46)
[2022-11-21] MEDS: 0.9 % SODIUM CHLORIDE 10 ML SYRINGE IV SCH ×3 (06:35→20:47)
[2022-11-21 06:44] LABS: ALT/SGPT 38 U/L (<40); AST/SGOT 56 U/L (<32); Albumin 2.9 gm/dL (3.2-5.2); Albumin/Globulin Ratio 1.4 (1.0-2.3); Alkaline Phosphatase 130 U/L (39-117); Bilirubin,Direct < 0.2 mg/dL (0-0.3); Bilirubin,Total < 0.2 mg/dL (0.1-1.0); Blood Urea Nitrogen 13 mg/dL (8-23); Calcium 7.9 mg/dL (8.6-10.4); Carbon Dioxide 28 mmol/L (22-30); Chloride 108 mmol/L (96-108); Globulin 2.1 gm/dL (2.2-3.7); Glomerular Filtration Rate 93; Glucose 160 mg/dL (70-105); Lactate Dehydrogenase 157 U/L (135-225); Phosphorous 2.1 mg/dL (2.5-4.5); Triglycerides 275 mg/dL (<150); Uric Acid 3.8 mg/dL (2.5-8.0)
[2022-11-21] MEDS: PANTOPRAZOLE 40 MG VIAL IV SCH (07:08)
[2022-11-21] MEDS: LEVOTHYROXINE 125 MCG TABLET PO SCH (07:08)
[2022-11-21] MEDS: POTASSIUM CHLORIDE 20 MEQ TABLET PO PRN (07:08)
[2022-11-21] MEDS: morphine 4 MG/ML VIAL IV PRN ×3 (08:09→18:38)
[2022-11-21] MEDS: HYDROcodone/APAP 5/325MG TABLET PO PRN ×3 (08:09→16:51)
[2022-11-21] MEDS: PROPRANOLOL 10 MG TABLET PO SCH ×3 (08:10→20:26)
[2022-11-21] MEDS: ENOXAPARIN 40 MG/0.4 ML SYRINGE SQ SCH (08:10)
[2022-11-21] MEDS: GABAPENTIN 400 MG CAPSULE PO SCH ×4 (08:10→20:25)
[2022-11-21] MEDS: INSULIN GLARGINE, HUMAN 1 UNIT/0.01 ML SQ SCH ×2 (08:10→20:30)
[2022-11-21] MEDS: DOCUSATE SODIUM 100 MG CAPSULE PO SCH ×2 (08:11→20:47)
[2022-11-21] MEDS: [UNRECOGNIZED DRUG - OTHER] PO SCH ×3 (08:25→16:53)
[2022-11-21] MEDS: LIPASE PROTEASE AMYLASE PO SCH ×3 (08:25→16:53)
[2022-11-21] MEDS ORDERED: MAGNESIUM SULFATE 2 GM/50 ML BAG IV ONE (13:02)
--- NOTE | 2022-11-21 13:03 | Internal Med Progress Note ---
SUBJECTIVE Subjective Patient information: Note initiated : 11/21/22 at 1:01 pm Service Date, if different from initiated Date: [] Patient: Tennille Castillo a 77 y/o F admitted on 11/17/22 for DKA. Chief Complaint: [] Interval history: History of present illness: Ms. Castillo is a 77 year old F Presents today for elevated blood glucose and weakness feeling like she is in DKA. Patient was last admitted in the middle of October for bronchitis. Pat ient states she has a little residual cough and shortness of breath but that is been improving. Patient states about a week ago she just cannot became progressively weak. She has not entirely compliant with her insulin and has not been taking it regularly and the past couple days she has not taken it at all. The daughter has been trying to get her into a nursing facility. Patient complains of severe weakness and not able to minimally get out of bed. She has chronic back pain which really bothers her. She has had some mild nausea but none today and no vomiting. She denies chest pain or shortness of breath. She denies diarrhea or constipation or abdominal pain. In the ED she is found to have a pH of 7.09 with a bicarb of 5. Beta hydroxybutyric acid of 10 with a BUN of 35 and creatinine 1.5 chloride at 90 and a sodium of 125 but that is not corrected for hyperglycemia. Her glucose was 801. Patient was given several fluid boluses in the ED as well as a regular insulin IV push and an insulin drip started. Patient denies any recent illnesses other than the acute bronchitis that she was admitted for in October. Patient is lethargic. 3/5 Still quite weak but she does feel like she is feeling a lot better. Beta hydroxybutyric acid still elevated but much improved. Anion gap resolved. Still mildly acidotic on VBG this morning. Bicarb low but improving. Hypophosphatemia. Replace electrolytes continue IV fluids. Insulin. 36 Again patient still very weak with very gradual improvement. Acid-base status is much better. Patient on subcu insulin now. Metabolic acidosis still noted but better. Monitor sugars closely and adjust insulin as needed. Continue to work with PT. 3/7 No significant events overnight. Blood sugar slightly elevated. LFTs slightly elevated, will continue to monitor. Discussed low intensity rehab with the patient, she would prefer to go home but will think about shelter facility for rehab. 11/21 Stable glycemic control, vitals stable. Elevated LFTs improving, replaced low potassium. Awaiting placement. Physical Exam Head: Atraumatic, normal inspection. Eyes: normal appearance, no scleral icterus. Neck: full ROM Respiratory: no respiratory distress. Cardiovascular: normal rate and rhythm, S1, S2. GI/Abdominal: soft, nontender, no guarding. Extremities: full range of motion, nontender. Neurological: CN II-XII intact, intact motor, intact sensation. Psychiatric: normal mood. Skin: warm, normal color Constitutional Vitals: Vital Signs Temp Pulse Resp BP Pulse Ox O2 Del Method O2 Flow Rate 97.2 F 65 18 155/78 98 Room Air 0 11/21/22 12:00 11/21/22 12:00 11/21/22 12:00 11/21/22 12:00 11/21/22 12:00 11/21/22 12:00 11/19/22 04:00 Period Temp Pulse Resp BP Sys/Rosario Pulse Ox O2 Del Method O2 Flow Rate Last 24 Hr 97.0 F-97.9 F 59-72 14-18 000-156/00-89 94-100 Room Air-Room Air Intake and Output 11/21/22 11/21/22 11/21/22 03:59 11:59 19:59 Intake Total 400 100 240 Balance 400 100 240 Intake & Output: Intake & Output 11/21/22 11/21/22 11/21/22 03:59 11:59 19:59 Intake Total 400 100 240 Balance 400 100 240 Intake: IV 50 Oral 400 50 240 Other: Meal PButter/gram crackers Lunch Percent of Meal Consumed 100% 100% Feeding Ability Independent Assist with Tray Set Up Stool Size Moderate Stool Color Brown Stool Consistency Soft # Voids 1 1 # Bowel Movements 1 OBJ DATA Labs 11/18/22 05:20 11/21/22 05:37 Labs: Abnormal Lab Results 11/21/22 11/20/22 11/19/22 05:37 05:19 05:06 ABG Methemoglobin 0.3 L VBG pCO2 29.6 L VBG pO2 140.8 H VBG HCO3 17.2 L VBG Total CO2 18.1 L VBG O2 Saturation 89.9 H VBG Base Excess -7 L Carboxyhemoglobin 7.7 H Total Hemoglobin 11.2 L Potassium 3.0 L Chloride 109 H Carbon Dioxide 20 L Anion Gap 7.0 L Creatinine 0.5 L 0.5 L Glucose 160 H 154 H Calcium 7.9 L 8.0 L Phosphorus 2.1 L 0.9 L Magnesium 1.5 L GGT 103 H 114 H AST 56 H 177 H ALT 64 H Alkaline Phosphatase 130 H 128 H Lactate Dehydrogenase 246 H Total Protein 5.0 L 5.2 L Albumin 2.9 L 3.0 L Globulin 2.1 L Triglycerides 275 H 335 H 11/19/22 05:06 ABG Methemoglobin VBG pCO2 VBG pO2 VBG HCO3 VBG Total CO2 VBG O2 Saturation VBG Base Excess Carboxyhemoglobin Total Hemoglobin Potassium Chloride 115 H Carbon Dioxide 15 L Anion Gap Creatinine Glucose 206 H Calcium 8.1 L Phosphorus 2.4 L Magnesium GGT 78 H AST ALT Alkaline Phosphatase Lactate Dehydrogenase Total Protein 4.9 L Albumin 3.1 L Globulin 1.8 L Triglycerides Meds: Medications Acetaminophen (Acetaminophen 325 Mg Tablet) 650 mg PO Q6HP PRN; Protocol PRN Reason: Per Pain Protocol/Fever > 101 Hydrocodone Bitart/Acetaminophen (Hydrocodone/Apap 5/325mg Tablet) 1 tab PO Q4HP PRN PRN Reason: PAIN LEVEL 3-6 Last Admin: 11/21/22 12:57 Dose: 1 tab Albuterol/Ipratropium (Ipratropium/Albuterol 3 Ml Ampul.Neb) 3 ml NEB Q4HP PRN PRN Reason: Shortness Of Breath Diagnostic Test (Pha) (Accu-Chek 1 Each Strip) 1 each FS ACHS [facility] Last Admin: 11/21/22 11:51 Dose: 1 each Diphenhydramine HCl (Diphenhydramine 25 Mg Capsule) 50 mg PO QHS [facility] Last Admin: 11/20/22 20:38 Dose: 50 mg Docusate Sodium (Docusate Sodium 100 Mg Capsule) 100 mg PO BID [facility] Last Admin: 11/21/22 08:11 Dose: Not Given Enoxaparin Sodium (Enoxaparin 40 Mg/0.4 Ml Syringe) 40 mg SQ DAILY [facility] Last Admin: 11/21/22 08:10 Dose: 40 mg Gabapentin (Gabapentin 400 Mg Capsule) 400 mg PO QID [facility] Last Admin: 11/21/22 12:57 Dose: 400 mg Hyoscyamine (Hyoscyamine Sulfate 0.125 Mg Tablet) 0.125 mg SL Q6HP PRN PRN Reason: muscle spasm Last Admin: 11/19/22 23:04 Dose: 0.125 mg Potassium Chloride 40 meq/ (Dextrose) 520 mls @ 130 mls/hr IV UD PRN PRN Reason: Potassium < 3 Magnesium Sulfate (Magnesium Sulfate) 2 gm in 50 mls @ 50 mls/hr IV UD PRN PRN Reason: Magnesium </= 1.6 Last Infusion: 11/21/22 08:27 Dose: Infused Insulin Glargine (Insulin Glargine, Human 1 Unit/0.01 Ml) 20 unit SQ BID [facility] Last Admin: 11/21/22 08:10 Dose: 20 units Insulin Human Lispro (Insulin Lispro 1 Unit/0.01 Ml Unit) 0 unit SQ Q4 [facility]; Protocol Last Admin: 11/21/22 12:01 Dose: 8 units Levothyroxine Sodium (Levothy[facility]ine 125 Mcg Tablet) [facility] Last Admin: 11/21/22 07:08 Dose: 125 mcg Morphine Sulfate (Morphine 4 Mg/Ml Vial) 0 mg IV Q3HP PRN PRN Reason: Pain Last Admin: 11/21/22 08:09 Dose: 2 mg Ondansetron HCl (Ondansetron 4 Mg/2 Ml Vial) 4 mg IV Q4HP PRN PRN Reason: Nausea And Vomiting Pantoprazole Sodium (Pantoprazole 40 Mg Vial) [facility] Last Admin: 11/21/22 07:08 Dose: 40 mg Lipase-Protease- Amylase [Zenpep] 40, 000-126,000- 1 dose PO TIDCC [facility] Last Admin: 11/21/22 12:01 Dose: 1 dose Polyethylene Glycol (Polyethylene Glycol 3350 17 Gm Packet) 17 gm PO DAILYP PRN PRN Reason: Constipation Potassium Chloride (Potassium Chloride 20 Meq Tablet) 40 meq PO UD PRN PRN Reason: Potssium is 3-3.5 Last Admin: 11/21/22 07:08 Dose: 40 meq Potassium Chloride (Potassium Chloride 20 Meq Tablet) 40 meq PO UD PRN PRN Reason: Potassium < 3 Propranolol HCl (Propranolol 10 Mg Tablet) 10 mg PO TID [facility] Last Admin: 11/21/22 08:10 Dose: 10 mg Senna (Sennosides 1 Tablet) 2 tab PO DAILYP PRN PRN Reason: Constipation Last Admin: 11/18/22 20:20 Dose: 2 tab Sodium Chloride (0.9 % Sodium Chloride 10 Ml Syringe) 10 ml IV Q8 PEG Last Admin: 11/21/22 12:58 Dose: 10 ml Tramadol HCl (Tramadol 50 Mg Tablet) 50 mg PO Q6HP PRN PRN Reason: pain Last Admin: 11/19/22 23:00 Dose: 50 mg Trazodone HCl (Trazodone Hcl 100 Mg Tablet) 100 mg PO HSP PRN PRN Reason: insomnia Last Admin: 11/20/22 23:36 Dose: 100 mg ABG Interpretation ABG results: 11/18/22 11/19/22 05:20 05:06 ABG Methemoglobin 0.2 L 0.3 L VBG pH 7.27 L 7.38 VBG pCO2 32.0 L 29.6 L VBG pO2 140.4 H 140.8 H VBG HCO3 14.4 L 17.2 L VBG Total CO2 15.4 L 18.1 L VBG O2 Saturation 91.1 H 89.9 H VBG Base Excess -11 L -7 L A/P Narrative A/P Narrative: Assessment: #Resolved DKA-HHS -Secondary to noncompliance with insulin #Resolved encephalopathy #DM2 Poorly controlled insulin-dependent w/neuropathy: -A1c 11.0 #Improving transaminitis #Resolved prerenal SUDARSHAN #Hypokalemia #h/o CAD: #Hypothyroidism: cont levothyroxine #Chronic pancreatitis: #Hypertriglyceridemia: #chronically elevated LFT's #Essential tremor: #chr back pain: #Long-term prognosis quite guarded with multiple admissions and poor compliance Plan: -Awaiting placement. -Continue basal bolus insulin regimen. -Replace electrolytes as needed. -Continue home duloxetine/gabapentin -Continue home pancreatic enzyme supplements, levothyroxine, fenofibrate -qhs snack when back on home regimen -PT/OT -CM for SNF placement -ppx: lovenox -CODE STATUS: DNR Time Spent With Patient Time: Total time spent is greater than 50% in coordination of care (as documented) at patient's floor/unit and/or counseling patient: QUALITY Stroke Symptom Onset Unknown: No VTE Deep Vein Thrombosis/Pulmonary Embolism Present on Admission: No
[2022-11-21] MEDS: HYOSCYAMINE SULFATE 0.125 MG TABLET SL PRN (19:01)
[2022-11-21] MEDS: diphenhydrAMINE 25 MG CAPSULE PO SCH (20:26)
[2022-11-21] MEDS: traZODone HCL 100 MG TABLET PO PRN (22:39)
[2022-11-22] MEDS: HYDROcodone/APAP 5/325MG TABLET PO PRN ×4 (02:58→17:09)
[2022-11-22] MEDS: 0.9 % SODIUM CHLORIDE 10 ML SYRINGE IV SCH ×3 (06:44→20:42)
[2022-11-22] MEDS: INSULIN LISPRO 1 UNIT/0.01 ML UNIT SQ SCH ×4 (07:25→20:41)
[2022-11-22] MEDS: PANTOPRAZOLE 40 MG VIAL IV SCH (07:48)
[2022-11-22] MEDS: LEVOTHYROXINE 125 MCG TABLET PO SCH (07:49)
[2022-11-22] MEDS: LIPASE PROTEASE AMYLASE PO SCH ×3 (07:49→17:09)
[2022-11-22] MEDS: [UNRECOGNIZED DRUG - OTHER] PO SCH ×3 (07:49→17:09)
[2022-11-22] MEDS: INSULIN GLARGINE, HUMAN 1 UNIT/0.01 ML SQ SCH ×2 (08:52→20:41)
[2022-11-22] MEDS: ENOXAPARIN 40 MG/0.4 ML SYRINGE SQ SCH (08:52)
[2022-11-22] MEDS: GABAPENTIN 400 MG CAPSULE PO SCH ×4 (08:53→20:42)
[2022-11-22] MEDS: DOCUSATE SODIUM 100 MG CAPSULE PO SCH ×2 (08:53→20:42)
[2022-11-22] MEDS: PROPRANOLOL 10 MG TABLET PO SCH ×3 (08:53→20:42)
[2022-11-22 10:09] LABS: ALT/SGPT 24 U/L (<40); AST/SGOT 28 U/L (<32); Albumin 2.7 gm/dL (3.2-5.2); Albumin/Globulin Ratio 1.2 (1.0-2.3); Alkaline Phosphatase 104 U/L (39-117); Bilirubin,Direct < 0.2 mg/dL (0-0.3); Bilirubin,Total 0.2 mg/dL (0.1-1.0); Blood Urea Nitrogen 13 mg/dL (8-23); Calcium 8.1 mg/dL (8.6-10.4); Carbon Dioxide 27 mmol/L (22-30); Chloride 108 mmol/L (96-108); Globulin 2.2 gm/dL (2.2-3.7); Glomerular Filtration Rate 100; Glucose 84 mg/dL (70-105); Lactate Dehydrogenase 140 U/L (135-225); Phosphorous 2.5 mg/dL (2.5-4.5); Triglycerides 204 mg/dL (<150); Uric Acid 3.4 mg/dL (2.5-8.0)
[2022-11-22] MEDS: HYOSCYAMINE SULFATE 0.125 MG TABLET SL PRN ×2 (12:20→23:10)
[2022-11-22] MEDS: morphine 4 MG/ML VIAL IV PRN ×3 (12:20→23:10)
--- NOTE | 2022-11-22 13:07 | Internal Med Progress Note ---
SUBJECTIVE Subjective Patient information: Note initiated : 11/22/22 at 1:06 pm Service Date, if different from initiated Date: [] Patient: Tennille Castillo a 77 y/o F admitted on 11/17/22 for DKA. Chief Complaint: [] Interval history: History of present illness: Ms. Castillo is a 77 year old F Presents today for elevated blood glucose and weakness feeling like she is in DKA. Patient was last admitted in the middle of October for bronchitis. Pat ient states she has a little residual cough and shortness of breath but that is been improving. Patient states about a week ago she just cannot became progressively weak. She has not entirely compliant with her insulin and has not been taking it regularly and the past couple days she has not taken it at all. The daughter has been trying to get her into a nursing facility. Patient complains of severe weakness and not able to minimally get out of bed. She has chronic back pain which really bothers her. She has had some mild nausea but none today and no vomiting. She denies chest pain or shortness of breath. She denies diarrhea or constipation or abdominal pain. In the ED she is found to have a pH of 7.09 with a bicarb of 5. Beta hydroxybutyric acid of 10 with a BUN of 35 and creatinine 1.5 chloride at 90 and a sodium of 125 but that is not corrected for hyperglycemia. Her glucose was 801. Patient was given several fluid boluses in the ED as well as a regular insulin IV push and an insulin drip started. Patient denies any recent illnesses other than the acute bronchitis that she was admitted for in October. Patient is lethargic. 3/5 Still quite weak but she does feel like she is feeling a lot better. Beta hydroxybutyric acid still elevated but much improved. Anion gap resolved. Still mildly acidotic on VBG this morning. Bicarb low but improving. Hypophosphatemia. Replace electrolytes continue IV fluids. Insulin. 6 Again patient still very weak with very gradual improvement. Acid-base status is much better. Patient on subcu insulin now. Metabolic acidosis still noted but better. Monitor sugars closely and adjust insulin as needed. Continue to work with PT. 3/7 No significant events overnight. Blood sugar slightly elevated. LFTs slightly elevated, will continue to monitor. Discussed low intensity rehab with the patient, she would prefer to go home but will think about [facility] facility for rehab. 11/21 Stable glycemic control, vitals stable. Elevated LFTs improving, replaced low potassium. Awaiting placement. 11/22 No significant events overnight. LFTs trended back to normal. Awaiting placement. Physical Exam Head: Atraumatic, normal inspection. Eyes: normal appearance, no scleral icterus. Neck: full ROM Respiratory: no respiratory distress. Cardiovascular: normal rate and rhythm, S1, S2. GI/Abdominal: soft, nontender, no guarding. Extremities: full range of motion, nontender. Neurological: CN II-XII intact, intact motor, intact sensation. Psychiatric: normal mood. Skin: warm, normal color Constitutional Vitals: Vital Signs Temp Pulse Resp BP Pulse Ox O2 Del Method O2 Flow Rate 97.5 F 61 12 136/66 95 Room Air 0 11/22/22 07:39 11/22/22 07:39 11/22/22 07:39 11/22/22 07:39 11/22/22 07:39 11/22/22 07:39 11/19/22 04:00 Period Temp Pulse Resp BP Sys/Rosario Pulse Ox O2 Del Method O2 Flow Rate Last 24 Hr 97.1 F-98.2 F 61-69 12-18 128-149/66-79 94-98 Room Air-Room Air Intake and Output 11/22/22 11/22/22 11/22/22 03:59 11:59 19:59 Intake Total 480 Balance 480 Weight 67.767 kg Intake & Output: Intake & Output 11/22/22 11/22/22 11/22/22 03:59 11:59 19:59 Intake Total 480 Balance 480 Weight 67.767 kg Intake: Oral 480 Other: # Voids 1 OBJ DATA Labs 11/18/22 05:20 11/22/22 08:41 Labs: Abnormal Lab Results 11/22/22 11/21/22 11/20/22 08:41 05:37 05:19 Potassium 3.0 L Chloride 109 H Carbon Dioxide 20 L Anion Gap 7.0 L 7.0 L Creatinine 0.4 L 0.5 L 0.5 L Glucose 160 H 154 H Calcium 8.1 L 7.9 L 8.0 L Phosphorus 2.1 L 0.9 L Magnesium 1.5 L GGT 91 H 103 H 114 H AST 56 H 177 H ALT 64 H Alkaline Phosphatase 130 H 128 H Lactate Dehydrogenase 246 H Total Protein 4.9 L 5.0 L 5.2 L Albumin 2.7 L 2.9 L 3.0 L Globulin 2.1 L Triglycerides 204 H 275 H 335 H Meds: Medications Acetaminophen (Acetaminophen 325 Mg Tablet) 650 mg PO Q6HP PRN; Protocol PRN Reason: Per Pain Protocol/Fever > 101 Hydrocodone Bitart/Acetaminophen (Hydrocodone/Apap 5/325mg Tablet) 1 tab PO Q4HP PRN PRN Reason: PAIN LEVEL 3-6 Last Admin: 11/22/22 12:20 Dose: 1 tab Albuterol/Ipratropium (Ipratropium/Albuterol 3 Ml Ampul.Neb) 3 ml NEB Q4HP PRN PRN Reason: Shortness Of Breath Diagnostic Test (Pha) (Accu-Chek 1 Each Strip) 1 each FS ACHS [facility] Last Admin: 11/22/22 12:13 Dose: 1 each Diphenhydramine HCl (Diphenhydramine 25 Mg Capsule) 50 mg PO QHS [facility] Last Admin: 11/21/22 20:26 Dose: 50 mg Docusate Sodium (Docusate Sodium 100 Mg Capsule) 100 mg PO BID [facility] Last Admin: 11/22/22 08:53 Dose: 100 mg Enoxaparin Sodium (Enoxaparin 40 Mg/0.4 Ml Syringe) 40 mg SQ DAILY [facility] Last Admin: 11/22/22 08:52 Dose: 40 mg Gabapentin (Gabapentin 400 Mg Capsule) 400 mg PO QID [facility] Last Admin: 11/22/22 08:53 Dose: 400 mg Hyoscyamine (Hyoscyamine Sulfate 0.125 Mg Tablet) 0.125 mg SL Q6HP PRN PRN Reason: muscle spasm Last Admin: 11/22/22 12:20 Dose: 0.125 mg Potassium Chloride 40 meq/ (Dextrose) 520 mls @ 130 mls/hr IV UD PRN PRN Reason: Potassium < 3 Magnesium Sulfate (Magnesium Sulfate) 2 gm in 50 mls @ 50 mls/hr IV UD PRN PRN Reason: Magnesium </= 1.6 Last Infusion: 11/21/22 08:27 Dose: Infused Insulin Glargine (Insulin Glargine, Human 1 Unit/0.01 Ml) 20 unit SQ BID [facility] Last Admin: 11/22/22 08:52 Dose: 20 units Insulin Human Lispro (Insulin Lispro 1 Unit/0.01 Ml Unit) 0 unit SQ [facility]; Protocol Last Admin: 11/22/22 12:21 Dose: 4 unit Levothyroxine Sodium (Levothyroxine 125 Mcg Tablet) 125 mcg PO QAMAC [facility] Last Admin: 11/22/22 07:49 Dose: 125 mcg Morphine Sulfate (Morphine 4 Mg/Ml Vial) 0 mg IV Q3HP PRN PRN Reason: Pain Last Admin: 11/22/22 12:20 Dose: 4 mg Ondansetron HCl (Ondansetron 4 Mg/2 Ml Vial) 4 mg IV Q4HP PRN PRN Reason: Nausea And Vomiting Pantoprazole Sodium ([facility] 40 Mg [facility]) [facility] Last Admin: 11/22/22 07:48 Dose: 40 mg Lipase-Protease- Amylase [Zenpep] 40, 000-126,000- 1 dose PO TIDCC [facility] Last Admin: 11/22/22 12:21 Dose: 1 dose Polyethylene Glycol (Polyethylene Glycol 3350 17 Gm Packet) 17 gm PO DAILYP PRN PRN Reason: Constipation Potassium Chloride (Potassium Chloride 20 Meq Tablet) 40 meq PO UD PRN PRN Reason: Potssium is 3-3.5 Last Admin: 11/21/22 07:08 Dose: 40 meq Potassium Chloride (Potassium Chloride 20 Meq Tablet) 40 meq PO UD PRN PRN Reason: Potassium < 3 Propranolol HCl (Propranolol 10 Mg Tablet) 10 mg PO TID [facility] Last Admin: 11/22/22 08:53 Dose: 10 mg Senna (Sennosides 1 Tablet) 2 tab PO DAILYP PRN PRN Reason: Constipation Last Admin: 11/18/22 20:20 Dose: 2 tab Sodium Chloride (0.9 % Sodium Chloride 10 Ml Syringe) 10 ml IV Q8 PEG Last Admin: 11/22/22 12:21 Dose: 10 ml Tramadol HCl (Tramadol 50 Mg Tablet) 50 mg PO Q6HP PRN PRN Reason: pain Last Admin: 11/19/22 23:00 Dose: 50 mg Trazodone HCl (Trazodone Hcl 100 Mg Tablet) 100 mg PO HSP PRN PRN Reason: insomnia Last Admin: 11/21/22 22:39 Dose: 100 mg ABG Interpretation ABG results: 11/18/22 11/19/22 05:20 05:06 ABG Methemoglobin 0.2 L 0.3 L VBG pH 7.27 L 7.38 VBG pCO2 32.0 L 29.6 L VBG pO2 140.4 H 140.8 H VBG HCO3 14.4 L 17.2 L VBG Total CO2 15.4 L 18.1 L VBG O2 Saturation 91.1 H 89.9 H VBG Base Excess -11 L -7 L A/P Narrative A/P Narrative: Assessment: #Resolved DKA-HHS -Secondary to noncompliance with insulin #Resolved encephalopathy #DM2 Poorly controlled insulin-dependent w/neuropathy: -A1c 11.0 #Improving transaminitis #Resolved prerenal SUDARSHAN #Hypokalemia #h/o CAD: #Hypothyroidism: cont levothyroxine #Chronic pancreatitis: #Hypertriglyceridemia: #chronically elevated LFT's #Essential tremor: #chr back pain: #Long-term prognosis quite guarded with multiple admissions and poor compliance Plan: -Awaiting placement. -Continue basal bolus insulin regimen. -Replace electrolytes as needed. -Continue home duloxetine/gabapentin -Continue home pancreatic enzyme supplements, levothyroxine, fenofibrate -Diabetic diet. -PT/OT -CM for SNF placement -ppx: lovenox -CODE STATUS: DNR Time Spent With Patient Time: Total time spent is greater than 50% in coordination of care (as documented) at patient's floor/unit and/or counseling patient: QUALITY Stroke Symptom Onset Unknown: No VTE Deep Vein Thrombosis/Pulmonary Embolism Present on Admission: No
[2022-11-22] MEDS: diphenhydrAMINE 25 MG CAPSULE PO SCH (20:42)
[2022-11-22] MEDS: traZODone HCL 100 MG TABLET PO PRN (23:10)
[2022-11-23] MEDS: morphine 4 MG/ML VIAL IV PRN ×3 (03:40→11:22)
[2022-11-23] MEDS: 0.9 % SODIUM CHLORIDE 10 ML SYRINGE IV SCH ×2 (03:41→04:18)
[2022-11-23] MEDS: INSULIN LISPRO 1 UNIT/0.01 ML UNIT SQ SCH (07:17)
[2022-11-23] MEDS: PANTOPRAZOLE 40 MG VIAL IV SCH (08:12)
[2022-11-23] MEDS: ENOXAPARIN 40 MG/0.4 ML SYRINGE SQ SCH (08:12)
[2022-11-23] MEDS: GABAPENTIN 400 MG CAPSULE PO SCH (08:13)
[2022-11-23] MEDS: LIPASE PROTEASE AMYLASE PO SCH (08:13)
[2022-11-23] MEDS: HYOSCYAMINE SULFATE 0.125 MG TABLET SL PRN (08:13)
[2022-11-23] MEDS: [UNRECOGNIZED DRUG - OTHER] PO SCH (08:13)
[2022-11-23] MEDS: DOCUSATE SODIUM 100 MG CAPSULE PO SCH (08:13)
[2022-11-23] MEDS: HYDROcodone/APAP 5/325MG TABLET PO PRN (08:14)
[2022-11-23] MEDS: LEVOTHYROXINE 125 MCG TABLET PO SCH (08:14)
[2022-11-23] MEDS: PROPRANOLOL 10 MG TABLET PO SCH (08:14)
[2022-11-23] MEDS: INSULIN GLARGINE, HUMAN 1 UNIT/0.01 ML SQ SCH (08:15)
[2022-11-23] MEDS ORDERED: INSULIN GLARGINE, HUMAN 1 UNIT/0.01 ML SQ SCH (09:00)
[2022-11-23] MEDS ORDERED: BISOPROLOL 5 MG TABLET PO SCH (09:00)
--- NOTE | 2022-11-23 10:36 | Discharge Summary ---
Discharge Provider Provider IMPORTANT FOLLOW-UP INFORMATION FOR PCP: Patient information: Note initiated : 11/23/22 at 10:35 am Service Date, if different from initiated Date: [] Patient: Tennille Castillo a 77 y/o F admitted on 11/17/22 for DKA. Chief Complaint: [] Date of admission: 11/17/22 21:48 Discharge date: 11/23/22 Primary care physician: OSKAR Carvajal Consults: 11/17/22 Consult to Physician [CONS] Stat Comment: Consulting Provider: Jef Borges Reason For Exam: Physician to Consult COURSE Hospital Course Hospital course: Ms. Castillo is a 77 year old F Presents today for elevated blood glucose and weakness feeling like she is in DKA. Patient was last admitted in the middle of October for bronchitis. Patient states she has a little residual cough and shortness of breath but that is been improving. Patient states about a week ago she just cannot became progressively weak. She has not entirely compliant with her insulin and has not been taking it regularly and the past couple days she has not taken it at all. The daughter has been trying to get her into a nursing facility. Patient complains of severe weakness and not able to minimally get out of bed. She has chronic back pain which really bothers her. She has had some mild nausea but none today and no vomiting. She denies chest pain or shortness of breath. She denies diarrhea or constipation or abdominal pain. In the ED she is found to have a pH of 7.09 with a bicarb of 5. Beta hydroxybutyric acid of 10 with a BUN of 35 and creatinine 1.5 chloride at 90 and a sodium of 125 but that is not corrected for hyperglycemia. Her glucose was 801. Patient was given several fluid boluses in the ED as well as a regular insulin IV push and an insulin drip started. Patient denies any recent illnesses other than the acute bronchitis that she was admitted for in October. Patient is lethargic. 3/5 Still quite weak but she does feel like she is feeling a lot better. Beta hydr oxybutyric acid still elevated but much improved. Anion gap resolved. Still mildly acidotic on VBG this morning. Bicarb low but improving. Hypophosphatemia. Replace electrolytes continue IV fluids. Insulin. 36 Again patient still very weak with very gradual improvement. Acid-base status is much better. Patient on subcu insulin now. Metabolic acidosis still noted but better. Monitor sugars closely and adjust insulin as needed. Continue to work with PT. 11/20 No significant events overnight. Blood sugar slightly elevated. LFTs slightly elevated, will continue to monitor. Discussed low intensity rehab with the patient, she would prefer to go home but will think about residential facility for rehab. 11/21 Stable glycemic control, vitals stable. Elevated LFTs improving, replaced low potassium. Awaiting placement. 11/22 No significant events overnight. LFTs trended back to normal. Awaiting placement. 11/23 Patient stable overnight, discharged to low intensity rehab. Physical Exam Head: Atraumatic, normal inspection. Eyes: normal appearance, no scleral icterus. Neck: full ROM Respiratory: no respiratory distress. Cardiovascular: normal rate and rhythm, S1, S2. GI/Abdominal: soft, nontender, no guarding. Extremities: full range of motion, nontender. Neurological: CN II-XII intact, intact motor, intact sensation. Psychiatric: normal mood. Skin: warm, normal color Discharge diagnosis: Diabetic ketoacidosis Secondary discharge diagnosis: Metabolic encephalopathy Time Spent with Patient Time attestation: Total time spent providing and/or coordinating discharge services: Time spent: Greater than 30 minutes EXAM Constitutional Vitals: Temp Pulse Resp BP Pulse Ox O2 Del Method O2 Flow Rate 97.1 F 86 16 120/52 96 Room Air 0 11/23/22 08:00 11/23/22 08:00 11/23/22 08:00 11/23/22 08:00 11/23/22 08:00 11/23/22 08:00 11/19/22 04:00 Discharge Plan Patient/Caregiver Discharge Instructions Activity: as per physical therapy Diet: Consistent Carbohydrate Prescriptions: Continued multivit [id number] [Hair, Skin and Nails Advanced] 1 tab PO DAILY trazodone 100 mg tablet 100 mg PO HSP PRN (Reason: insomnia) acyclovir 400 mg tablet 1 tab PO BID cholecalciferol (vitamin D3) [Vitamin D3] 50 mcg (2,000 unit) Capsule 50 mcg PO DAILY insulin aspart U-100 [Novolog FlexPen U-100 Insulin] 100 unit/mL (3 mL) insulin pen See Protocol subcut ACHS Protocol: Insulin Sliding Scale, High Condition: HUMALOG/NOVALOG SC SLIDING Dose/Route: SCALE Condition: FSBS < 70 Dose/Route: Give 4 Oz juice, or 15gm oral Instruction: Glucose, or 25ml D50W IV if Dose/Route: unable to take PO. Recheck in Instruction: 15 min and repeat if FSBS < 70 Condition: FSBS 71-140 Dose/Route: NO COVERAGE Condition: FSBS 141-170 Dose/Route: 3 UNITS Condition: FSBS 171-200 Dose/Route: 6 UNITS Condition: FSBS 201-250 Dose/Route: 9 UNITS Condition: FSBS 251-300 Dose/Route: 12 UNITS Condition: FSBS 301-350 Dose/Route: 15 UNITS Condition: FSBS 351-400 Dose/Route: 18 UNITS Condition: FSBS > 400 Dose/Route: 20 UNITS; REPEAT Q2H X2 Instruction: CONTINUE FOLLOWING SLIDING Condition: SCALE; IF STILL > 400; CALL Dose/Route: PHYSICIAN levothyroxine 125 mcg tablet 1 tab PO QAM (DME) True Metrix Glucose Test Strip Strip 1 strip MISCELLANEOUS QID insulin degludec [Tresiba U-100 Insulin] 100 unit/mL solution 20 unit subcut BID Qty: 10 0RF hyoscyamine sulfate 0.125 mg tablet,disintegrating 0.125 mg sublingual Q6HP PRN (Reason: muscle spasm) tramadol 50 mg tablet 50 - 100 mg PO Q6HP PRN (Reason: pain) diphenhydramine HCl [Sleep Aid (diphenhydramine)] 50 mg Capsule 50 mg PO QHS gabapentin 400 mg Capsule 400 mg PO QID propranolol 10 mg tablet 10 mg PO TID albuterol sulfate 90 mcg/actuation HFA aerosol inhaler 2 puff INHALATION Q4-6HP PRN (Reason: wheezing) Zenpep 40,000-126,000- 168,000 unit capsule,delayed release(DR/EC) 1 cap PO TID Other Ambulatory Orders: OT Discharge Order (Routine) Location: None Selected Ordered By: Tom Montenegro Physical Therapy at Discharge - General (Routine) Location: None Selected Ordered By: Tom Montenegro Follow Up Plan Follow up with: Jacque Severino FNP [Primary Care Provider] - Patient Disposition: Xfer SNF Rehab Potential: Fair I certify that the patient requires SNF services: Yes Overall status at discharge: patient is progressing back to baseline Discharge Orders: Discharge Order (Routine); Ordered 11/23/22 Ordered By: Tom GASCA VTE Deep Vein Thrombosis/Pulmonary Embolism Present on Admission: No
== END 2022-11-23 12:13 | DRG 637 ==
LOC: ED 15:33 → ICU 21:48 → MEDSUR 11-20 17:50 → UNDODISIN 11-23 11:38
PROVIDERS: ADMIT Internal Medicine; ATTEND Internal Medicine

== ENCOUNTER 2023-01-03 14:13 | Inpatient (IN) ==
[2023-01-03 14:32] LABS: POC Blood Urea Nitrogen 35 (6-20); POC Calcium, Ionized 1.21 (1.16-1.32); POC Chloride 93 (96-108); POC Creatinine 1.2 (0.6-1.2); POC Glucose, Random > 700 (70-105); POC Potassium 5.2 (3.3-5.1); POC Sodium 123 (133-145)
[2023-01-03] MEDS ORDERED: 0.9 % SODIUM CHLORIDE 1,000 ML IV ONE ×3 (14:37→19:00)
[2023-01-03 15:26] LABS: Basophils # (Auto) 0.04 K/mcL (0.00-0.30); Basophils % (Auto) 0.4 % (0.0-2.0); Eosinophils # (Auto) 0.01 K/mcL (0.00-0.70); Eosinophils % (Auto) 0.1 % (0.0-7.0); Hematocrit 39.2 % (34.1-44.9); Hemoglobin 12.3 g/dL (11.2-15.7); Lymphocytes % (Auto) 10.7 % (15.5-49.0); Mean Cell Volume 91.8 fL (80.0-100.0); Mean Corpuscular HGB Conc 31.4 g/dL (31.0-36.0); Mean Platelet Volume 11.6 fL (8.8-12.5); Monocytes # (Auto) 0.25 K/mcL (0.10-0.90); Monocytes % (Auto) 2.4 % (1.0-12.0); Neutrophils % (Auto) 85.8 % (38.0-78.0); Platelet Count 269 K/mcL (140-440); RBC 4.27 M/mcL (3.59-5.38); Red Cell Distribution Width 14.2 % (11.5-14.5); WBC 10.3 K/mcL (4.5-11.0)
[2023-01-03] MEDS ORDERED: ONDANSETRON 4 MG/2 ML VIAL IV ONE (15:26)
[2023-01-03] MEDS ORDERED: morphine 4 MG/ML VIAL IV ONE (15:26)
--- NOTE | 2023-01-03 15:33 | XRay Report ---
HISTORY: Cough, short of breath, chronic bronchitis FINDINGS: The lungs are clear and well expanded. The mild inflammatory changes seen in both lungs on the recent CT done on 10/30/22 appear to have resolved. The heart size and pulmonary vasculature are normal. The mediastinum, leroy and pleura are normal. There is chronic calcific tendinitis in the left shoulder. IMPRESSION: Normal chest. Interpreted and Authenticated by: Allan Lawler 01/03/23
--- NOTE | 2023-01-03 15:55 | Emergency Department Note ---
SOB HPI General Chief Complaint: Shortness of Breath/Dyspnea Stated Complaint: SOB/HI BG Time Seen by Provider: 01/03/23 14:16 Source: EMS Mode of arrival: EMS Limitations: no limitations History of Present Illness HPI Narrative: The patient is a 77-year-old female with a history of COPD, chronic back pain, uncontrolled diabetes, neurofibromatosis 2 who presents to the ED with shortness of breath. Patient states that for the past 3 weeks she has had bronchitis. She reports a cough as well as some intermittent wheezing. No chest pain. No abdominal pain. She has back pain which is chronic and unchanged from baseline. No urinary complaints. No fevers. No nausea, vomiting. She had some diarrhea 3 days ago but has not had a bowel movement since then. She states she has not been taking her insulin regularly and has not taken it for the last 2 days because she has not really been eating. There has been concern in the past regarding patient's ability to care for self and manage her diabetes at home. She does live alone. She has been admitted multiple times with DKA. Related Data Home Medications Medication Instructions Recorded Confirmed multivit [id number] 186 1 tab PO DAILY 07/15/21 01/03/23 [Hair, Skin and Nails Advanced] acyclovir 400 mg tablet 1 tab PO BID 09/21/21 01/03/23 cholecalciferol (vitamin D3) 50 50 mcg PO DAILY 12/04/21 01/03/23 mcg (2,000 unit) capsule (Vitamin D3) insulin aspart U-100 100 unit/mL See Protocol subcut ACHS 04/23/22 01/03/23 (3 mL) subcutaneous pen (Novolog FlexPen U-100 Insulin aspart) blood sugar diagnostic (True 08/21/22 01/03/23 Metrix Glucose Test Strip) levothyroxine 125 mcg tablet 1 tab PO QAM 08/21/22 01/03/23 hyoscyamine sulfate 0.125 mg 0.125 mg sublingual Q6HP PRN 10/15/22 01/03/23 disintegrating tablet muscle spasm diphenhydramine HCl 50 mg capsule 50 mg PO QHS 11/17/22 01/03/23 (Sleep Aid (diphenhydramine)) [id number] 1 cap PO TID 11/17/22 01/03/23 40,000-126,000-168,000 unit capsule, delay rel (Zenpep) propranolol 10 mg tablet 10 mg PO TID 11/17/22 01/03/23 gabapentin 400 mg capsule 400 mg PO QID 12/25/22 01/03/23 Previous Rx's Medication Instructions Recorded insulin degludec 100 unit/mL 20 unit (0.2 mL) subcut BID #10 mL 08/29/22 subcutaneous solution (Tresiba U-100 Insulin) tramadol 50 mg tablet 50 mg PO Q6HP PRN pain #7 tabs 11/23/22 trazodone 100 mg tablet 100 mg PO HSP PRN insomnia #7 tabs 11/23/22 albuterol sulfate 90 mcg/actuation 2 puff inhalation .q4-6h PRN 12/25/22 aerosol inhaler (ProAir HFA) cough, shortness of breath, wheezing #8.5 grams Allergies Allergy/AdvReac Type Severity Reaction Status Date / Time cephalexin [From Keflex] Allergy Intermediate Swelling Verified 01/03/23 14:17 lidocaine Allergy Intermediate Blister Verified 01/03/23 14:17 fenugreek Allergy Mild Itching Verified 01/03/23 14:17 Penicillins Allergy Mild Rash Verified 01/03/23 14:17 Anistreplase [From Eminase] Allergy Unknown UNKNOWN Verified 01/03/23 14:17 codeine AdvReac Mild Itching Verified 01/03/23 14:17 Erythromycin Base AdvReac Mild Itching Verified 01/03/23 14:17 Nortriptyline AdvReac Mild Nausea Verified 01/03/23 14:17 promethazine AdvReac Mild Fainting Verified 01/03/23 14:17 trulicity AdvReac Intermediate Other Uncoded 12/25/22 14:24 Review of Systems ROS ROS Narrative: Narrative: All systems ED: reviewed and negative except as stated. PFSH Narrative Patient History Narrative: Narrative: Medical/Surgical/Family History All Active Problems (Updated 01/03/23 @ 17:42 by Raz Morales MD) DKA (diabetic ketoacidosis) (Acute) Acidosis, lactic (Acute) Schwannoma (Chronic) Hypoxemia (Chronic) Acute viral syndrome (Chronic) Hypokalemia (Chronic) Left renal mass (Chronic) Transaminitis (Chronic) Septic shock (Chronic) Clinical sepsis (Chronic) DKA, type 2 (Chronic) Essential hypertension (Chronic) Mixed dyslipidemia (Chronic) Hyperkalemia (Chronic) Compression fracture of body of thoracic vertebra (Chronic) Pain in rib (Chronic) 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) Chronic pain syndrome (Chronic) DKA, type 2 (Chronic) Hypoglycemia (Chronic) DKA (diabetic ketoacidosis) (Chronic) Acute hyponatremia (Chronic) Acute hyperkalemia (Chronic) Acidosis, lactic (Chronic) Metabolic acidosis (Chronic) Blood in urine (Chronic) Diabetic keto-acidosis (Chronic) Pseudohyponatremia (Chronic) DKA (diabetic ketoacidosis) (Chronic) Hypomagnesemia (Chronic) Generalized weakness (Chronic) Acute dehydration (Chronic) Diabetic ketosis (Chronic) Acute dyspnea (Chronic) Obstructive sleep apnea (Chronic) DKA (diabetic ketoacidosis) (Chronic) Vulvovaginitis due to yeast (Chronic) Sleepwalking (Chronic) REM sleep behavior disorder (Chronic) Hypersomnia (Chronic) Snoring (Chronic) Tremor (Chronic) Neurofibromatosis 2 (Chronic) Trigger finger (Chronic) Sleep disturbance (Chronic) Arthralgia (Chronic) Pancreatitis (Chronic) Macular degeneration (Chronic) Hepatitis A (Chronic) Glaucoma (Chronic) Fibromyalgia (Chronic) DDD (degenerative disc disease), cervical (Chronic) Diabetic retinopathy (Chronic) Opioid dependence (Chronic) Stress (Chronic) Hard of hearing (Chronic) Multiple environmental allergies (Chronic) Fracture of lumbar spine (Chronic) Compression fracture of lumbosacral spine (Chronic) Abdominal pain (Chronic) Chronic pancreatitis (Chronic) Liver mass (Chronic) Cirrhosis of liver (Chronic) Constipation (Chronic) Neuropathy (Chronic) Chronic pain (Chronic) Essential tremor (Chronic) Bimalleolar ankle fracture (Chronic) Chronic bronchitis with acute exacerbation (Chronic) Dehydration (Chronic) Epistaxis (Chronic) Hypoxia (Chronic) Anterior epistaxis (Chronic) Candidiasis of mouth (Chronic) DKA (diabetic ketoacidosis) (Chronic) Conjunctivitis (Chronic) Bronchitis (Chronic) Dehiscence of closure of skin (Chronic) Anemia (Chronic) Elevated liver enzymes (Chronic) 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) Radiculopathy, sacral and sacrococcygeal region (Chronic) Radiculopathy, lumbosacral region (Chronic) Insomnia (Chronic) Levator syndrome (Chronic) Sacrococcygeal pain (Chronic) History of surgery (Chronic) Hypothyroidism (Chronic) Chronic bronchitis (Chronic) 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) Depression (Chronic) Anxiety (Chronic) Hypertension (Chronic) Osteoporosis (Chronic) Rectal pain (Chronic) Low back pain (Chronic) Pain in thoracic spine (Chronic) Age-related osteoporosis with current pathological fracture, vertebra(e), initial encounter for fracture (Chronic) Medical History (Updated 01/03/23 @ 17:42 by Raz Morales MD) Abdominal pain Acute exacerbation of chronic obstructive airways disease Age-related osteoporosis with current pathological fracture, vertebra(e), initial encounter for fracture Anemia Anterior epistaxis Anxiety Arthralgia Bilateral primary osteoarthritis of hip Bimalleolar ankle fracture Blood in urine Bronchitis Candidiasis of mouth Chronic bronchitis with acute exacerbation Chronic pain Chronic pancreatitis Cirrhosis of liver Compression fracture of lumbosacral spine Conjunctivitis Constipation DDD (degenerative disc disease), cervical Dehiscence of closure of skin Dehydration Depression Diabetic retinopathy DKA (diabetic ketoacidosis) Elevated liver enzymes Epistaxis Essential tremor Fibromyalgia Fracture of lumbar spine Glaucoma Hard of hearing Hepatitis A Hyperglycemia due to type 2 diabetes mellitus Hypersomnia Hypertension Hypothyroidism Hypoxia Insomnia Levator syndrome Lipomatosis Liver mass Low back pain Macular degeneration Multiple environmental allergies Neurofibromatosis 2 Neuropathy Obstructive sleep apnea Opioid dependence Osteoporosis Pain in thoracic spine Pancreatitis Radiculopathy, lumbosacral region Radiculopathy, sacral and sacrococcygeal region Rectal pain REM sleep behavior disorder Sacrococcygeal pain Schwannoma Sleep disturbance Sleepwalking Snoring Stress Tremor Trigger finger Surgical History History of appendectomy (~1969) History of arthroplasty of right ankle (~2017) History of cataract surgery (~2003) History of cholecystectomy History of colonoscopy (~06/26/18) History of decompression of median nerve (~2003) History of dilation and curettage History of eye surgery (~2005) Glaucoma History of hand surgery (~2003) Release of trigger finger, right History of left breast biopsy (~2005) History of oophorectomy History of surgery Vertebroplasty T12 w/sed 09/28/19 History of surgery retinopathy laser Stereotactic destruction of lesion using gamma radiation-2004 History of surgery on wrist History of tonsillectomy and adenoidectomy (~1969) Family History (Updated 12/31/22 @ 11:30 by Sujatha Junior) Mother Heart disease Fibromyalgia Father Malignant melanoma Malignant tumor of prostate Leukemia Social History Smoking Status: Never smoker Alcohol Intake Frequency: does not drink Substance Use: does not use Exam Narrative Narrative: Constitutional: Thin. Anxious. HEENT: Normocephalic. Atraumatic. EOMI. Conjunctive are clear bilaterally. OP clear. Uvula midline. Moist mucous membranes. Throat supple without adenopathy. Cardiovascular: Rapid rate, regular rhythm, 3/6 holosystolic murmur. No rubs or gallops. Pulmonary: Patient is tachypneic. Bibasilar rales. No wheezing or rhonchi. Abdomen: Soft, nondistended. No HSM. TTP in the right upper quadrant and epigastric region. Musculoskeletal: Normal muscular development. No obvious deformities. No lower extremity edema. Skin: Warm, dry. No rash. Neurologic: Awake, alert, and oriented x4. Motor function grossly intact. Afocal. General Limitations: no limitations Course Course Course Narrative: The patient is HD stable. She is saturating 100% on room air on arrival. She is tachycardic into the low 100s. She is in DKA with glucose greater than 700. pH 7.17. PCO2 17.9. PO2 138. Lactic acid 4.0. Sodium 123. Hyponatremia is secondary to DKA. Chloride 93. Potassium 5.2. Paradox butyrate 8.25. Lipase 80. Patient does have tenderness in the right upper quadrant and epigastric region which I think is probably most likely due to DKA though she did have a CT scan a few months ago which showed possible developing postcholecystectomy papillary stenosis for which GI follow-up was recommended. She also was noted to have some nonspecific spots on the pancreas. Lipase is 80. ALT/AST WNL. Total bilirubin very mildly elevated at 0.3. BNP 1344. Troponin negative. CXR shows no acute pathology. Patient does not appear volume overloaded. Suspect that her shortness of breath is secondary to DKA. She did desaturate after getting 4 mg of morphine for her chronic low back pain and was given another breathing treatment here. Magnesium WNL. Phos pending. Patient given 1 L NS. She was seen in the ED by Dr. Borges and given another 1 L NS. She was started on an insulin drip. Patient accepted for admission to the ICU here. UA has yet to be collected. Consultations Consultation #1: Dr. Borges, hospitalist Time: 17:00 Vital Signs Vital signs: Vital Signs Pulse Rate 105 H 01/03/23 14:15 Respiratory Rate 25 H 01/03/23 14:15 Blood Pressure 111/36 01/03/23 14:15 Pulse Oximetry (%) 100 01/03/23 14:15 Oxygen Delivery Method Room Air 01/03/23 14:15 Pulse Rate 104 H 01/03/23 17:16 Respiratory Rate 18 01/03/23 17:16 Blood Pressure 114/39 01/03/23 17:16 Pulse Oximetry (%) 100 01/03/23 17:16 Oxygen Delivery Method Room Air 01/03/23 16:38 MDM MDM Narrative Medical decision making narrative: Narrative: Differential Diagnosis Differential Diagnosis: COPD exacerbation, URI, PE, DKA, sepsis Lab Data 01/03/23 14:57 01/03/23 15:30 Labs: Lab Results 01/03/23 01/03/23 01/03/23 Range/Units 14:28 14:48 14:56 WBC (4.5-11.0) K/mcL RBC (3.59-5.38) M/mcL Hgb (11.2-15.7) g/dL Hct (34.1-44.9) % POC Hct 38.0 (36-48) MCV (80.0-100.0) fL MCH (26.0-34.0) pg MCHC (31.0-36.0) g/dL RDW (11.5-14.5) % Plt Count (140-440) K/mcL MPV (8.8-12.5) fL Immature Gran % (Auto) (0.0-0.5) % Neut % (Auto) (38.0-78.0) % Lymph % (Auto) (15.5-49.0) % Carson % (Auto) (1.0-12.0) % Eos % (Auto) (0.0-7.0) % Baso % (Auto) (0.0-2.0) % Lymph # (Auto) (1.50-4.80) K/mcL Carson # (Auto) (0.10-0.90) K/mcL Eos # (Auto) (0.00-0.70) K/mcL Baso # (Auto) (0.00-0.30) K/mcL Immature Gran # (0.00-0.05) K/mcl Absolute Neutrophils (1.80-8.00) K/mcL D-Dimer 0.27 (0.27-0.50) ug/mL POC VBG pH (7.32-7.42) POC VBG pCO2 at Temp (41-51) POC VBG pO2 (25-40) POC VBG HCO3 (24-28) POC VBG Total CO2 (25-29) POC Venous O2 Sat (40-70) POC VBG Base Excess (-2-2) VBG Lactic Acid (0.5-2) POC Sodium 123 L (133-145) POC Potassium 5.2 H (3.3-5.1) POC Chloride 93 L (96-108) POC Total CO2 10.0 L (22-30) POC BUN 35 H (6-20) POC Creatinine 1.2 (0.6-1.2) POC Glucose > 700 H* (70-105) POC WB Ioniz Calcium 1.21 (1.16-1.32) Magnesium (1.6-2.5) mg/dL Total Bilirubin (0.1-1.0) mg/dL Direct Bilirubin (<0.3) mg/dL AST (<32) U/L ALT (<40) U/L Alkaline Phosphatase (39-117) U/L NT-Pro-B Natriuret Pep (<450.0) pg/mL Total Protein (5.9-8.4) gm/dL Albumin (3.2-5.2) gm/dL Globulin (2.2-3.7) gm/dL Lipase (7-60) U/L Beta-Hydroxybutyrate (<0.27) mmol/L POC Troponin I 0.02 (0.00-0.08) 01/03/23 01/03/23 01/03/23 Range/Units 14:57 14:57 14:57 WBC 10.3 (4.5-11.0) K/mcL RBC 4.27 (3.59-5.38) M/mcL Hgb 12.3 (11.2-15.7) g/dL Hct 39.2 (34.1-44.9) % POC Hct (36-48) MCV 91.8 (80.0-100.0) fL MCH 28.8 (26.0-34.0) pg MCHC 31.4 (31.0-36.0) g/dL RDW 14.2 (11.5-14.5) % Plt Count 269 (140-440) K/mcL MPV 11.6 (8.8-12.5) fL Immature Gran % (Auto) 0.6 H (0.0-0.5) % Neut % (Auto) 85.8 H (38.0-78.0) % Lymph % (Auto) 10.7 L (15.5-49.0) % Carson % (Auto) 2.4 (1.0-12.0) % Eos % (Auto) 0.1 (0.0-7.0) % Baso % (Auto) 0.4 (0.0-2.0) % Lymph # (Auto) 1.10 L (1.50-4.80) K/mcL Carson # (Auto) 0.25 (0.10-0.90) K/mcL Eos # (Auto) 0.01 (0.00-0.70) K/mcL Baso # (Auto) 0.04 (0.00-0.30) K/mcL Immature Gran # 0.06 H (0.00-0.05) K/mcl Absolute Neutrophils 8.80 H (1.80-8.00) K/mcL D-Dimer (0.27-0.50) ug/mL POC VBG pH (7.32-7.42) POC VBG pCO2 at Temp (41-51) POC VBG pO2 (25-40) POC VBG HCO3 (24-28) POC VBG Total CO2 (25-29) POC Venous O2 Sat (40-70) POC VBG Base Excess (-2-2) VBG Lactic Acid (0.5-2) POC Sodium (133-145) POC Potassium (3.3-5.1) POC Chloride (96-108) POC Total CO2 (22-30) POC BUN (6-20) POC Creatinine (0.6-1.2) POC Glucose (70-105) POC WB Ioniz Calcium (1.16-1.32) Magnesium 2.0 (1.6-2.5) mg/dL Total Bilirubin 0.6 (0.1-1.0) mg/dL Direct Bilirubin 0.3 H (<0.3) mg/dL AST 18 (<32) U/L ALT 15 (<40) U/L Alkaline Phosphatase 150 H (39-117) U/L NT-Pro-B Natriuret Pep 1344.0 H (<450.0) pg/mL Total Protein 6.1 (5.9-8.4) gm/dL Albumin 3.4 (3.2-5.2) gm/dL Globulin 2.7 (2.2-3.7) gm/dL Lipase 80 H (7-60) U/L Beta-Hydroxybutyrate 8.25 H (<0.27) mmol/L POC Troponin I (0.00-0.08) 01/03/23 Range/Units 15:52 WBC (4.5-11.0) K/mcL RBC (3.59-5.38) M/mcL Hgb (11.2-15.7) g/dL Hct (34.1-44.9) % POC Hct (36-48) MCV (80.0-100.0) fL MCH (26.0-34.0) pg MCHC (31.0-36.0) g/dL RDW (11.5-14.5) % Plt Count (140-440) K/mcL MPV (8.8-12.5) fL Immature Gran % (Auto) (0.0-0.5) % Neut % (Auto) (38.0-78.0) % Lymph % (Auto) (15.5-49.0) % Carson % (Auto) (1.0-12.0) % Eos % (Auto) (0.0-7.0) % Baso % (Auto) (0.0-2.0) % Lymph # (Auto) (1.50-4.80) K/mcL Carson # (Auto) (0.10-0.90) K/mcL Eos # (Auto) (0.00-0.70) K/mcL Baso # (Auto) (0.00-0.30) K/mcL Immature Gran # (0.00-0.05) K/mcl Absolute Neutrophils (1.80-8.00) K/mcL D-Dimer (0.27-0.50) ug/mL POC VBG pH 7.17 L* (7.32-7.42) POC VBG pCO2 at Temp 17.9 L* (41-51) POC VBG pO2 138 H (25-40) POC VBG HCO3 6.5 L* (24-28) POC VBG Total CO2 7.0 L (25-29) POC Venous O2 Sat 98.0 H (40-70) POC VBG Base Excess -22.0 L (-2-2) VBG Lactic Acid 4.0 H* (0.5-2) POC Sodium (133-145) POC Potassium (3.3-5.1) POC Chloride (96-108) POC Total CO2 (22-30) POC BUN (6-20) POC Creatinine (0.6-1.2) POC Glucose (70-105) POC WB Ioniz Calcium (1.16-1.32) Magnesium (1.6-2.5) mg/dL Total Bilirubin (0.1-1.0) mg/dL Direct Bilirubin (<0.3) mg/dL AST (<32) U/L ALT (<40) U/L Alkaline Phosphatase (39-117) U/L NT-Pro-B Natriuret Pep (<450.0) pg/mL Total Protein (5.9-8.4) gm/dL Albumin (3.2-5.2) gm/dL Globulin (2.2-3.7) gm/dL Lipase (7-60) U/L Beta-Hydroxybutyrate (<0.27) mmol/L POC Troponin I (0.00-0.08) Radiology Data Radiology results reviewed: Yes I reviewed the patient's radiology results. Radiology results narrative: CXR clear. EKG Data EKG #1: EKG attestation: Yes I reviewed and interpreted this EKG. EKG results narrative: Sinus tachycardia. Rate 102. Normal axis. No ST elevation or depression. Normal T waves. Nonspecific repolarization abnormality. CC TIME Critical Care Time Critical Care Time: Yes Total Critical Care Time: 40 Attestation: Approximately [30] minutes of critical care time was used in order to assess and manage the high probability of imminent or life threatening deterioration to dk a and lactic acidosis which required my highest level of preparedness and interventions with frequent patient assessments. This time is excluding time spent on separately billable procedures. Discharge Plan Patient/Caregiver Discharge Instructions Pt seen by KNIFE MACHINE OPERATOR/PA only: No Clinical Impression: DKA (diabetic ketoacidosis), Acidosis, lactic Patient Disposition: Xfer As Inpt ([facility]) Condition: Serious Follow up with: Eugenio March MD [Primary Care Provider] - Prescriptions: No Action multivit [id number] 186 [Hair, Skin and Nails Advanced] 1 tab PO DAILY albuterol sulfate [ProAir HFA] 90 mcg/actuation HFA aerosol inhaler 2 puff inhalation .q4-6h PRN (Reason: cough, shortness of breath, wheezing) Qty: 8.5 0RF Rx Instructions: administer with spacer acyclovir 400 mg tablet 1 tab PO BID cholecalciferol (vitamin D3) [Vitamin D3] 50 mcg (2,000 unit) Capsule 50 mcg PO DAILY insulin aspart U-100 [Novolog FlexPen U-100 Insulin] 100 unit/mL (3 mL) insulin pen See Protocol subcut ACHS Protocol: Insulin Sliding Scale, High Condition: HUMALOG/NOVALOG SC SLIDING Dose/Route: SCALE Condition: FSBS < 70 Dose/Route: Give 4 Oz juice, or 15gm oral Instruction: Glucose, or 25ml D50W IV if Dose/Route: unable to take PO. Recheck in Instruction: 15 min and repeat if FSBS < 70 Condition: FSBS 71-140 Dose/Route: NO COVERAGE Condition: FSBS 141-170 Dose/Route: 3 UNITS Condition: FSBS 171-200 Dose/Route: 6 UNITS Condition: FSBS 201-250 Dose/Route: 9 UNITS Condition: FSBS 251-300 Dose/Route: 12 UNITS Condition: FSBS 301-350 Dose/Route: 15 UNITS Condition: FSBS 351-400 Dose/Route: 18 UNITS Condition: FSBS > 400 Dose/Route: 20 UNITS; REPEAT Q2H X2 Instruction: CONTINUE FOLLOWING SLIDING Condition: SCALE; IF STILL > 400; CALL Dose/Route: PHYSICIAN levothyroxine 125 mcg tablet 1 tab PO QAM (DME) True Metrix Glucose Test Strip Strip 1 strip MISCELLANEOUS QID insulin degludec [Tresiba U-100 Insulin] 100 unit/mL solution 20 unit subcut BID Qty: 10 0RF hyoscyamine sulfate 0.125 mg tablet,disintegrating 0.125 mg sublingual Q6HP PRN (Reason: muscle spasm) diphenhydramine HCl [Sleep Aid (diphenhydramine)] 50 mg Capsule 50 mg PO QHS propranolol 10 mg tablet 10 mg PO TID Zenpep 40,000-126,000- 168,000 unit capsule,delayed release(DR/EC) 1 cap PO TID tramadol 50 mg Tablet 50 mg PO Q6HP PRN (Reason: pain) Qty: 7 0RF trazodone 100 mg Tablet 100 mg PO HSP PRN (Reason: insomnia) Qty: 7 0RF gabapentin 400 mg capsule 400 mg PO QID
[2023-01-03] MEDS ORDERED: INSULIN REGULAR, HUMAN 1 UNIT/0.01 ML UNIT IV ONE ×3 (15:57→18:43)
[2023-01-03 16:00] LABS: ALT/SGPT 15 U/L (<40); AST/SGOT 18 U/L (<32); Albumin 3.4 gm/dL (3.2-5.2); Alkaline Phosphatase 150 U/L (39-117); Bilirubin,Direct 0.3 mg/dL (<0.3); Bilirubin,Total 0.6 mg/dL (0.1-1.0); Globulin 2.7 gm/dL (2.2-3.7)
[2023-01-03] MEDS: INSULIN REGULAR, HUMAN 50 UNIT in 0.9 % SODIUM CHLORIDE 99.5 ML IV SCH ×4 (16:25→22:58)
--- NOTE | 2023-01-03 16:44 | Internal Med History&Physical ---
HPI History of Present Illness Patient information: Note initiated : 01/03/23 at 4:42 pm Service Date, if different from initiated Date: [] Patient: Tennille Castillo a 77 y/o F admitted on for SOB/HI BG. Chief Complaint: [] History of present illness: Ms. Castillo is a 77 year old F Presents the ED with shortness of breath for 3 weeks and cough. Per EMS her blood glucose was read as "high". Patient states she has developed cough shortness of breath and weakness which started 2 to 3 weeks ago she went to [facility] and got doxycycline but has not improved. She has not seen her PCP because she says her PCP fired her. She has not gotten a new PCP yet. She says her cough is productive of yellow-green sputum. She denies chest pain or stomach pain. She does complain of headache and chills but no fever. Chest x-ray in ED unremarkable. Rapid flu and COVID-negative Patient has not been taking her insulin for the past couple days because she has had a poor appetite. Patient has had multiple hospitalizations for DKA usual elated to noncompliance of medications. Last admission was November Records from last admission reported that the daughter has been trying to get her into a nursing facility. Patient complains of severe weakness and not able to minimally get out of bed. She has chronic back pain which really bothers her. She has had some mild nausea but none today and no vomiting. She denies chest pain or shortness of breath. She denies diarrhea or constipation or abdominal pain. In the ED she is found to have a pH of 7.17 with a bicarb of 5. Beta hydroxybutyric acid of 8.2 with a BUN of 39 and creatinine 1.5 chloride at 93 and a sodium of 123 but that is not corrected for hyperglycemia. Her glucose was 877. Patient was given several fluid boluses in the ED as well as a regular insulin IV push and an insulin drip started. Patient denies any recent illnesses other than the acute bronchitis Patient is lethargic. Review of Systems: Pertinent positive as above. Denies headache/fever/chills/vomiting/chest or abdominal pain/diarrhea. Remaining 10 point review of system reviewed negative PHYSICAL EXAM General: Awake, mild distress Eyes/N/T: EOMI, no scleral icterus, PERRL, dry MM Head/Neck: neck supple, full ROM, normocephalic atraumatic CV: Tacky but regular, 3/6SM, normal s1/s2 Pulm: Rhonchi b/l, no wheezing, no respiratory distress Abd: soft, nontender, +BS x4 Ext: no clubbing/cyanosis/edema, nontender Neuro: Lethargic, no focal deficits, moves all extremities, CN 2-12 grossly intact, sensations intact b/l upper/lower Psychiatric: Skin: warm/dry, normal color PFSH PFSH All Active Problems (Updated 01/03/23 @ 17:42 by Raz Morales MD) DKA (diabetic ketoacidosis) (Acute) Acidosis, lactic (Acute) Schwannoma (Chronic) Hypoxemia (Chronic) Acute viral syndrome (Chronic) Hypokalemia (Chronic) Left renal mass (Chronic) Transaminitis (Chronic) Septic shock (Chronic) Clinical sepsis (Chronic) DKA, type 2 (Chronic) Essential hypertension (Chronic) Mixed dyslipidemia (Chronic) Hyperkalemia (Chronic) Compression fracture of body of thoracic vertebra (Chronic) Pain in rib (Chronic) 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) Chronic pain syndrome (Chronic) DKA, type 2 (Chronic) Hypoglycemia (Chronic) DKA (diabetic ketoacidosis) (Chronic) Acute hyponatremia (Chronic) Acute hyperkalemia (Chronic) Acidosis, lactic (Chronic) Metabolic acidosis (Chronic) Blood in urine (Chronic) Diabetic keto-acidosis (Chronic) Pseudohyponatremia (Chronic) DKA (diabetic ketoacidosis) (Chronic) Hypomagnesemia (Chronic) Generalized weakness (Chronic) Acute dehydration (Chronic) Diabetic ketosis (Chronic) Acute dyspnea (Chronic) Obstructive sleep apnea (Chronic) DKA (diabetic ketoacidosis) (Chronic) Vulvovaginitis due to yeast (Chronic) Sleepwalking (Chronic) REM sleep behavior disorder (Chronic) Hypersomnia (Chronic) Snoring (Chronic) Tremor (Chronic) Neurofibromatosis 2 (Chronic) Trigger finger (Chronic) Sleep disturbance (Chronic) Arthralgia (Chronic) Pancreatitis (Chronic) Macular degeneration (Chronic) Hepatitis A (Chronic) Glaucoma (Chronic) Fibromyalgia (Chronic) DDD (degenerative disc disease), cervical (Chronic) Diabetic retinopathy (Chronic) Opioid dependence (Chronic) Stress (Chronic) Hard of hearing (Chronic) Multiple environmental allergies (Chronic) Fracture of lumbar spine (Chronic) Compression fracture of lumbosacral spine (Chronic) Abdominal pain (Chronic) Chronic pancreatitis (Chronic) Liver mass (Chronic) Cirrhosis of liver (Chronic) Constipation (Chronic) Neuropathy (Chronic) Chronic pain (Chronic) Essential tremor (Chronic) Bimalleolar ankle fracture (Chronic) Chronic bronchitis with acute exacerbation (Chronic) Dehydration (Chronic) Epistaxis (Chronic) Hypoxia (Chronic) Anterior epistaxis (Chronic) Candidiasis of mouth (Chronic) DKA (diabetic ketoacidosis) (Chronic) Conjunctivitis (Chronic) Bronchitis (Chronic) Dehiscence of closure of skin (Chronic) Anemia (Chronic) Elevated liver enzymes (Chronic) 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) Radiculopathy, sacral and sacrococcygeal region (Chronic) Radiculopathy, lumbosacral region (Chronic) Insomnia (Chronic) Levator syndrome (Chronic) Sacrococcygeal pain (Chronic) History of surgery (Chronic) Hypothyroidism (Chronic) Chronic bronchitis (Chronic) 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) Depression (Chronic) Anxiety (Chronic) Hypertension (Chronic) Osteoporosis (Chronic) Rectal pain (Chronic) Low back pain (Chronic) Pain in thoracic spine (Chronic) Age-related osteoporosis with current pathological fracture, vertebra(e), initial encounter for fracture (Chronic) Medical History (Updated 01/03/23 @ 17:42 by Raz Morales MD) Abdominal pain Acute exacerbation of chronic obstructive airways disease Age-related osteoporosis with current pathological fracture, vertebra(e), initial encounter for fracture Anemia Anterior epistaxis Anxiety Arthralgia Bilateral primary osteoarthritis of hip Bimalleolar ankle fracture Blood in urine Bronchitis Candidiasis of mouth Chronic bronchitis with acute exacerbation Chronic pain Chronic pancreatitis Cirrhosis of liver Compression fracture of lumbosacral spine Conjunctivitis Constipation DDD (degenerative disc disease), cervical Dehiscence of closure of skin Dehydration Depression Diabetic retinopathy DKA (diabetic ketoacidosis) Elevated liver enzymes Epistaxis Essential tremor Fibromyalgia Fracture of lumbar spine Glaucoma Hard of hearing Hepatitis A Hyperglycemia due to type 2 diabetes mellitus Hypersomnia Hypertension Hypothyroidism Hypoxia Insomnia Levator syndrome Lipomatosis Liver mass Low back pain Macular degeneration Multiple environmental allergies Neurofibromatosis 2 Neuropathy Obstructive sleep apnea Opioid dependence Osteoporosis Pain in thoracic spine Pancreatitis Radiculopathy, lumbosacral region Radiculopathy, sacral and sacrococcygeal region Rectal pain REM sleep behavior disorder Sacrococcygeal pain Schwannoma Sleep disturbance Sleepwalking Snoring Stress Tremor Trigger finger Surgical History History of appendectomy (~1969) History of arthroplasty of right ankle (~2017) History of cataract surgery (~2003) History of cholecystectomy History of colonoscopy (~06/26/18) History of decompression of median nerve (~2003) History of dilation and curettage History of eye surgery (~2005) Glaucoma History of hand surgery (~2003) Release of trigger finger, right History of left breast biopsy (~2005) History of oophorectomy History of surgery Vertebroplasty T12 w/sed 09/28/19 History of surgery retinopathy laser Stereotactic destruction of lesion using gamma radiation-2004 History of surgery on wrist History of tonsillectomy and adenoidectomy (~1969) Family History (Updated 12/31/22 @ 11:30 by Sujatha Junior) Mother Heart disease Fibromyalgia Father Malignant melanoma Malignant tumor of prostate Leukemia Social History lives independently: Yes marital status: education level: college occupational status: retired pets and animals: No other: 2 children physical activity: none smoking status: Never smoker alcohol intake frequency: does not drink substance use type: does not use seatbelt use: always working smoke detector in home: Yes carbon monox detector in home: Yes MEDS/ALLERGIES Home Medications and Allergies Home Medications Medication Instructions Recorded Confirmed Type multivit [id number] 186 1 tab PO DAILY 07/15/21 01/03/23 History [Hair, Skin and Nails Advanced] acyclovir 400 mg tablet 1 tab PO BID 09/21/21 01/03/23 History cholecalciferol (vitamin D3) 50 50 mcg PO DAILY 12/04/21 01/03/23 History mcg (2,000 unit) capsule (Vitamin D3) insulin aspart U-100 100 unit/mL See Protocol subcut ACHS 04/23/22 01/03/23 History (3 mL) subcutaneous pen (Novolog FlexPen U-100 Insulin aspart) blood sugar diagnostic (True 08/21/22 01/03/23 History Metrix Glucose Test Strip) levothyroxine 125 mcg tablet 1 tab PO QAM 08/21/22 01/03/23 History insulin degludec 100 unit/mL 20 unit (0.2 mL) subcut BID #10 mL 08/29/22 01/03/23 Rx subcutaneous solution (Tresiba U-100 Insulin) hyoscyamine sulfate 0.125 mg 0.125 mg sublingual Q6HP PRN 10/15/22 01/03/23 History disintegrating tablet muscle spasm diphenhydramine HCl 50 mg capsule 50 mg PO QHS 11/17/22 01/03/23 History (Sleep Aid (diphenhydramine)) [id number] 1 cap PO TID 11/17/22 01/03/23 History 40,000-126,000-168,000 unit capsule, delay rel (Zenpep) propranolol 10 mg tablet 10 mg PO TID 11/17/22 01/03/23 History tramadol 50 mg tablet 50 mg PO Q6HP PRN pain #7 tabs 11/23/22 01/03/23 Rx trazodone 100 mg tablet 100 mg PO HSP PRN insomnia #7 tabs 11/23/22 01/03/23 Rx albuterol sulfate 90 mcg/actuation 2 puff inhalation .q4-6h PRN 12/25/22 01/03/23 Rx aerosol inhaler (ProAir HFA) cough, shortness of breath, wheezing #8.5 grams gabapentin 400 mg capsule 400 mg PO QID 12/25/22 01/03/23 History Allergies Allergy/AdvReac Type Severity Reaction Status Date / Time cephalexin [From Keflex] Allergy Intermediate Swelling Verified 01/03/23 14:17 lidocaine Allergy Intermediate Blister Verified 01/03/23 14:17 fenugreek Allergy Mild Itching Verified 01/03/23 14:17 Penicillins Allergy Mild Rash Verified 01/03/23 14:17 Anistreplase [From Eminase] Allergy Unknown UNKNOWN Verified 01/03/23 14:17 codeine AdvReac Mild Itching Verified 01/03/23 14:17 Erythromycin Base AdvReac Mild Itching Verified 01/03/23 14:17 Nortriptyline AdvReac Mild Nausea Verified 01/03/23 14:17 promethazine AdvReac Mild Fainting Verified 01/03/23 14:17 trulicity AdvReac Intermediate Other Uncoded 12/25/22 14:24 EXAM Constitutional Vitals: Pulse Resp BP Pulse Ox O2 Del Method 115 H 24 H 120/36 100 Room Air 01/03/23 16:36 01/03/23 16:38 01/03/23 16:31 01/03/23 16:36 01/03/23 16:38 DATA Data Completed and Pending Labs: Labs from last 24 hours 01/03/23 01/03/23 01/03/23 15:52 14:57 14:57 WBC 10.3 RBC 4.27 Hgb 12.3 Hct 39.2 POC Hct MCV 91.8 MCH 28.8 MCHC 31.4 RDW 14.2 Plt Count 269 MPV 11.6 Immature Gran % (Auto) 0.6 H Neut % (Auto) 85.8 H Lymph % (Auto) 10.7 L [place] % (Auto) 2.4 Eos % (Auto) 0.1 Baso % (Auto) 0.4 Lymph # (Auto) 1.10 L [place] # (Auto) 0.25 Eos # (Auto) 0.01 Baso # (Auto) 0.04 Immature Gran # 0.06 H Absolute Neutrophils 8.80 H D-Dimer POC VBG pH 7.17 L* POC VBG pCO2 at Temp 17.9 L* POC VBG pO2 138 H POC VBG HCO3 6.5 L* POC VBG Total CO2 7.0 L POC Venous O2 Sat 98.0 H POC VBG Base Excess -22.0 L VBG Lactic Acid 4.0 H* POC Sodium POC Potassium POC Chloride POC Total CO2 POC BUN POC Creatinine POC Glucose POC WB Ioniz Calcium Phosphorus Pending Magnesium Pending Total Bilirubin Direct Bilirubin AST ALT Alkaline Phosphatase NT-Pro-B Natriuret Pep Total Protein Albumin Globulin Lipase Beta-Hydroxybutyrate POC Troponin I 01/03/23 01/03/23 01/03/23 14:57 14:56 14:48 WBC RBC Hgb Hct POC Hct MCV MCH MCHC RDW Plt Count MPV Immature Gran % (Auto) Neut % (Auto) Lymph % (Auto) [place] % (Auto) Eos % (Auto) Baso % (Auto) Lymph # (Auto) [place] # (Auto) Eos # (Auto) Baso # (Auto) Immature Gran # Absolute Neutrophils D-Dimer 0.27 POC VBG pH POC VBG pCO2 at Temp POC VBG pO2 POC VBG HCO3 POC VBG Total CO2 POC Venous O2 Sat POC VBG Base Excess VBG Lactic Acid POC Sodium POC Potassium POC Chloride POC Total CO2 POC BUN POC Creatinine POC Glucose POC WB Ioniz Calcium Phosphorus Magnesium Total Bilirubin 0.6 Direct Bilirubin 0.3 H AST 18 ALT 15 Alkaline Phosphatase 150 H NT-Pro-B Natriuret Pep 1344.0 H Total Protein 6.1 Albumin 3.4 Globulin 2.7 Lipase 80 H Beta-Hydroxybutyrate Pending POC Troponin I 0.02 01/03/23 14:28 WBC RBC Hgb Hct POC Hct 38.0 MCV MCH MCHC RDW Plt Count MPV Immature Gran % (Auto) Neut % (Auto) Lymph % (Auto) [place] % (Auto) Eos % (Auto) Baso % (Auto) Lymph # (Auto) [place] # (Auto) Eos # (Auto) Baso # (Auto) Immature Gran # Absolute Neutrophils D-Dimer POC VBG pH POC VBG pCO2 at Temp POC VBG pO2 POC VBG HCO3 POC VBG Total CO2 POC Venous O2 Sat POC VBG Base Excess VBG Lactic Acid POC Sodium 123 L POC Potassium 5.2 H POC Chloride 93 L POC Total CO2 10.0 L POC BUN 35 H POC Creatinine 1.2 POC Glucose > 700 H* POC WB Ioniz Calcium 1.21 Phosphorus Magnesium Total Bilirubin Direct Bilirubin AST ALT Alkaline Phosphatase NT-Pro-B Natriuret Pep Total Protein Albumin Globulin Lipase Beta-Hydroxybutyrate POC Troponin I A/P Narrative A/P Narrative: A: #DKA/HHS, mod-severe: -has been off insulin past several days b/c was not feeling well #DM2 Poorly controlled insulin-dependent w/neuropathy: -A1c 11.0 in september #Hypotension, hypovolemic: #Encephalopathy: 2/2 above #Metabolic acidosis, severe: #SUDARSHAN w/severe volume depletion: 2/2 above #Acute bronchitis: #Generalized weakness/deconditioning: #h/o CAD: #Hypothyroidism: cont levothyroxine #Chronic pancreatitis: #Hypertriglyceridemia: #chronically elevated LFT's #Essential tremor: #chr back pain: #Long-term prognosis quite guarded with multiple admissions and poor compliance -Family has been trying to get her into a nursing facility Plan: -insulin gtt -IVF's -f/u vbg/bhb, osmol -ua pending -Monitor electrolytes closely Replace as needed -Monitor renal function, avoid nephrotoxic meds -uop, i/o -duonebs, IS/Acapella, RT -rvp/covid/rsv -Continue home duloxetine/gabapentin -Continue her home pancreatic enzyme supplements, levothyroxine, fenofibrate -qhs snack when back on home regimen -Home medication reconciliation -PT/OT -CM for SNF placement -DVT prophylaxis: lovenox CODE STATUS: DNR Time Spent With Patient Time: Total time spent is greater than 50% in coordination of care (as documented) at patient's floor/unit and/or counseling patient: Critical Care Time: Yes Total Critical Care Time: 60
[2023-01-03 17:12] LABS: Beta Hydroxybutyrate 8.25 mmol/L (<0.27)
[2023-01-03] MEDS ORDERED: INSULIN REGULAR, HUMAN 1 UNIT/0.01 ML UNIT ONE ×3 (17:37→22:42)
[2023-01-03 18:04] LABS: Phosphorous 6.3 mg/dL (2.5-4.5)
[2023-01-03 18:04] LABS: Blood Urea Nitrogen 39 mg/dL (8-23); Calcium 8.9 mg/dL (8.6-10.4); Carbon Dioxide 5 mmol/L (22-30); Chloride 84 mmol/L (96-108); Glomerular Filtration Rate 33; Glucose 877 mg/dL (70-105)
[2023-01-03] MEDS ORDERED: ONDANSETRON 4 MG/2 ML VIAL IV PRN (19:17)
[2023-01-03] MEDS ORDERED: POTASSIUM CHLORIDE 40 MEQ in DEXTROSE 5% IN WATER 500 ML IV PRN (19:17)
[2023-01-03] MEDS ORDERED: IPRATROPIUM/ALBUTEROL 3 ML AMPUL.NEB NEB PRN (19:17)
[2023-01-03] MEDS ORDERED: POLYETHYLENE GLYCOL 3350 17 GM PACKET PO PRN (19:17)
[2023-01-03] MEDS ORDERED: SENNOSIDES 1 TABLET PO PRN (19:17)
[2023-01-03] MEDS ORDERED: POTASSIUM CHLORIDE 20 MEQ TABLET PO PRN ×2 (19:17)
[2023-01-03] MEDS ORDERED: MAGNESIUM SULFATE 2 GM/50 ML BAG IV PRN (19:17)
[2023-01-03 19:53] LABS: Appearance,Urine CLEAR (Clear); Bacteria,Urine 0 /hpf (0); Bilirubin,Urine Negative (Negative); Color,Urine YELLOW; Culture Indicated,Urine No; Glucose,Urine (UA) >=500 mg/dL (Negative); Ketones,Urine 80 mg/dL (Negative); Leukocyte Esterase,Urine Negative /uL (Negative); Nitrate,Urine Negative (Negative); Protein,Urine Negative (Negative); Specific Gravity,Urine 1.018 (1.000-1.035); Urine Blood Negative (Negative); Urine RBC 0 /hpf (0-3); Urine Squamous Epithelial Cell 3 /hpf (0-4); Urine WBC 7 /hpf (0-4); Urobilinogen,Urine Negative
[2023-01-03] MEDS: 0.9 % SODIUM CHLORIDE 1,000 ML IV SCH (19:57)
[2023-01-03] MEDS: IPRATROPIUM/ALBUTEROL 3 ML AMPUL.NEB NEB SCH (20:12)
[2023-01-03] MEDS: DOCUSATE SODIUM 100 MG CAPSULE PO SCH (20:28)
[2023-01-03] MEDS: PROPRANOLOL 10 MG TABLET PO SCH (20:28)
[2023-01-03] MEDS: diphenhydrAMINE 25 MG CAPSULE PO SCH (20:34)
[2023-01-03] MEDS: INSULIN GLARGINE, HUMAN 1 UNIT/0.01 ML SQ SCH (20:34)
[2023-01-03] MEDS: GABAPENTIN 400 MG CAPSULE PO SCH (20:35)
[2023-01-03] MEDS: traZODone HCL 100 MG TABLET PO PRN (20:35)
[2023-01-03] MEDS: traMADol 50 MG TABLET PO PRN (20:35)
[2023-01-03] MEDS: 0.9 % SODIUM CHLORIDE 10 ML SYRINGE IV SCH (20:36)
[2023-01-03] MEDS: LIPASE PROTEASE AMYLASE PO SCH (20:36)
--- NOTE | 2023-01-03 20:36 | Cat Scan Report ---
History: Abdominal pain, hypertension TECHNIQUE: Following injection of intravenous nonionic contrast the patient was imaged during the portal venous phase from above the diaphragm through the symphysis pubis. Sagittal and coronal reformats were created. The radiation exposure was limited using dose reduction technology. FINDINGS: The lung bases are clear. The liver is normal in size and homogeneous. The capsule is smooth. There are multiple varices in the left upper quadrant around the spleen and extending inferiorly along the left gonadal vein. No paraesophageal varices are present. Radiographically the liver does not appear cirrhotic. The gallbladder has been removed. There is chronic dilatation of the intra and extrahepatic bile ducts. Common bile duct measures up to 1.5 cm. There is no apparent mass or stone at the ampulla. There are stable small cystic lesions in the pancreas. There is one in the uncinate process, another in the body and the third in the tail. These have not enlarged compared with the prior CTs done on 08/25/2022 and 10/29/2022. There is no evidence of acute pancreatitis and no solid mass in the pancreas is detected. The adrenals are normal. There are several small cysts in both kidneys. No solid mass is detected. There is no kidney stone or hydronephrosis. Moderate amount of calcified plaque is present along the wall of normal caliber aorta. There is no aneurysm or dissection. No intra-abdominal hemorrhage or free fluid are present. The bowel pattern is normal without evidence of obstruction or inflammation. Moderate amount stool is present in the distal large bowel. Urinary bladder is well distended but unopacified. The wall is smooth. Uterus and ovaries have been removed. No adenopathy is present. There is an old moderate to severe biconcave wedge compression fracture at T12 and a milder compression fracture involving the inferior endplate of L2. These are unchanged from the prior CT. There are thick bands of scar tissue in the subcutaneous fat of the anterior pelvic wall bilaterally, right worse than left. These are also stable and there is no evidence of acute inflammation in the subcutaneous fat. IMPRESSION: No acute intra-abdominal abnormality to explain the patient's symptoms nor the hypotension. Stable dilatation of the bile ducts. This may be due to a reservoir effect following a prior cholecystectomy or stricture at the ampulla. Stable small low-attenuation cystic lesions in the pancreas. Varicosities in the left upper quadrant The hospitalist was called with the report Interpreted and Authenticated by: Allan Lawler 01/03/23
[2023-01-03] MEDS ORDERED: LACTATED RINGERS 500 ML IV ONE (22:35)
[2023-01-03] MEDS ORDERED: NOREPINEPHRINE BITARTRATE 4 MG/4 ML VIAL IV ONE (22:39)
[2023-01-03] MEDS: 0.9 % SODIUM CHLORIDE 250 ML IV SCH (22:57)
[2023-01-03] MEDS: NOREPINEPHRINE BITARTRATE 8 MG in 0.9 % SODIUM CHLORIDE 242 ML IV SCH (23:26)
[2023-01-04] MEDS: BENZONATATE 100 MG CAPSULE PO PRN ×4 (00:08→23:37)
[2023-01-04] MEDS: ACETAMINOPHEN 325 MG TABLET PO PRN (00:08)
[2023-01-04] MEDS: BENZOCAINE/MENTHOL 1 LOZENGE PO PRN (00:08)
[2023-01-04] MEDS: HYOSCYAMINE SULFATE 0.125 MG TABLET SL PRN ×2 (00:09→23:45)
[2023-01-04] MEDS: NOREPINEPHRINE BITARTRATE 8 MG in 0.9 % SODIUM CHLORIDE 242 ML IV SCH ×5 (00:15→12:54)
[2023-01-04 00:57] LABS: Appearance,Urine CLEAR (Clear); Bacteria,Urine 0 /hpf (0); Bilirubin,Urine Negative (Negative); Color,Urine YELLOW; Culture Indicated,Urine No; Glucose,Urine (UA) >=500 mg/dL (Negative); Ketones,Urine 20 mg/dL (Negative); Leukocyte Esterase,Urine Negative /uL (Negative); Mucus,Urine Few /hpf; Nitrate,Urine Negative (Negative); Protein,Urine Negative (Negative); Specific Gravity,Urine 1.027 (1.000-1.035); Urine Blood Negative (Negative); Urine Hyaline Cast < 1 /lph (0-2); Urine RBC 1 /hpf (0-3); Urine Squamous Epithelial Cell 0 /hpf (0-4); Urine WBC 2 /hpf (0-4); Urobilinogen,Urine Negative
[2023-01-04] MEDS: DEXTROSE 5%-NS 1,000 ML IV SCH ×2 (01:00→07:04)
[2023-01-04] MEDS: 0.9 % SODIUM CHLORIDE 1,000 ML IV SCH ×4 (01:01→20:09)
[2023-01-04] MEDS: INSULIN REGULAR, HUMAN 50 UNIT in 0.9 % SODIUM CHLORIDE 99.5 ML IV SCH ×3 (02:00→04:14)
[2023-01-04] MEDS: IPRATROPIUM/ALBUTEROL 3 ML AMPUL.NEB NEB SCH ×3 (04:13→20:08)
[2023-01-04] MEDS: 0.9 % SODIUM CHLORIDE 10 ML SYRINGE IV SCH ×3 (05:10→20:22)
[2023-01-04 06:30] LABS: Basophils # (Auto) 0.07 K/mcL (0.00-0.30); Basophils % (Auto) 0.4 % (0.0-2.0); Eosinophils # (Auto) 0.19 K/mcL (0.00-0.70); Eosinophils % (Auto) 1.2 % (0.0-7.0); Hematocrit 33.3 % (34.1-44.9); Hemoglobin 11.2 g/dL (11.2-15.7); Lymphocytes # (Auto) 4.22 K/mcL (1.50-4.80); Lymphocytes % (Auto) 26.1 % (15.5-49.0); Mean Cell Volume 85.8 fL (80.0-100.0); Mean Corpuscular HGB Conc 33.6 g/dL (31.0-36.0); Mean Platelet Volume 11.1 fL (8.8-12.5); Monocytes # (Auto) 1.42 K/mcL (0.10-0.90); Monocytes % (Auto) 8.8 % (1.0-12.0); Neutrophils % (Auto) 63.2 % (38.0-78.0); Platelet Count 151 K/mcL (140-440); RBC 3.88 M/mcL (3.59-5.38); Red Cell Distribution Width 13.9 % (11.5-14.5); WBC 16.2 K/mcL (4.5-11.0)
[2023-01-04 06:41] LABS: ALT/SGPT 10 U/L (<40); AST/SGOT 23 U/L (<32); Albumin 2.9 gm/dL (3.2-5.2); Albumin/Globulin Ratio 1.4 (1.0-2.3); Alkaline Phosphatase 118 U/L (39-117); Beta Hydroxybutyrate 0.69 mmol/L (<0.27); Bilirubin,Direct < 0.2 mg/dL (0-0.3); Bilirubin,Total 0.4 mg/dL (0.1-1.0); Blood Urea Nitrogen 31 mg/dL (8-23); Carbon Dioxide 18 mmol/L (22-30); Chloride 108 mmol/L (96-108); Globulin 2.1 gm/dL (2.2-3.7); Glomerular Filtration Rate 61; Glucose 181 mg/dL (70-105); Lactate Dehydrogenase 247 U/L (135-225); Phosphorous 2.3 mg/dL (2.5-4.5); Triglycerides 58 mg/dL (<150); Uric Acid 7.4 mg/dL (2.5-8.0)
[2023-01-04] MEDS: LEVOTHYROXINE 125 MCG TABLET PO SCH (07:35)
[2023-01-04] MEDS: LIPASE PROTEASE AMYLASE PO SCH ×2 (07:53→16:58)
[2023-01-04] MEDS: guaiFENesin/CODEINE 10 ML UDC PO PRN ×2 (08:02→16:58)
[2023-01-04] MEDS: PROPRANOLOL 10 MG TABLET PO SCH ×3 (08:03→20:21)
[2023-01-04] MEDS: DOCUSATE SODIUM 100 MG CAPSULE PO SCH ×2 (08:03→20:21)
[2023-01-04] MEDS: GABAPENTIN 400 MG CAPSULE PO SCH ×3 (08:04→20:20)
[2023-01-04] MEDS: ENOXAPARIN 40 MG/0.4 ML SYRINGE SQ SCH (08:04)
[2023-01-04] MEDS ORDERED: ALBUMIN HUMAN 12.5 GM/50 ML VIAL IV SCH (08:41)
--- NOTE | 2023-01-04 08:42 | Internal Med Progress Note ---
SUBJECTIVE Subjective Patient information: Note initiated : 01/04/23 at 8:31 am Service Date, if different from initiated Date: [] Patient: Tennille Castillo a 77 y/o F admitted on 01/03/23 for SOB/HI BG. Chief Complaint: [] Interval history: History of present illness: Ms. Castillo is a 77 year old F Presents the ED with shortness of breath for 3 weeks and cough. Per EMS her blood glucose was read as "high". Patient states she has developed cough shortness of breath and weakness which started 2 to 3 weeks ago she went to [facility] and got doxycycline but has not improved. She has not seen her PCP because she says her PCP fired her. She has not gotten a new PCP yet. She says her cough is productive of yellow-green sputum. She denies chest pain or stomach pain. She does complain of headache and chills but no fever. Chest x-ray in ED unremarkable. Rapid flu and COVID-negative Patient has not been taking her insulin for the past couple days because she has had a poor appetite. Patient has had multiple hospitalizations for DKA usual elated to noncompliance of medications. Last admission was November Records from last admission reported that the daughter has been trying to get her into a nursing facility. Patient complains of severe weakness and not able to minimally get out of bed. She has chronic back pain which really bothers her. She has had some mild nausea but none today and no vomiting. She denies chest pain or shortness of breath. She denies diarrhea or constipation or abdominal pain. In the ED she is found to have a pH of 7.17 with a bicarb of 5. Beta hydroxybutyric acid of 8.2 with a BUN of 39 and creatinine 1.5 chloride at 93 and a sodium of 123 but that is not corrected for hyperglycemia. Her glucose was 877. Patient was given several fluid boluses in the ED as well as a regular insulin IV push and an insulin drip started. Patient denies any recent illnesses other than the acute bronchitis Patient is lethargic. 01/04 Patient weak and tired, has continued cough. Denies shortness of breath at rest. Patient on Levophed and required last night. Despite fluid boluses. Acid-base balance improving. Hyperkalemia resolved. Still acidotic. Renal function improving. Good urine output. A.m. cortisol okay. Attempt to wean down off Levophed. Review of Systems: Pertinent positive as above. Denies headache/fever/chills/vomiting/chest or abdominal pain/diarrhea. PHYSICAL EXAM General: Awake, no acute distress Eyes/N/T: EOMI, no scleral icterus, Head/Neck: neck supple, full ROM, CV: RRR, 3/6SM, Pulm: mild Rhonchi b/l, no wheezing, no respiratory distress Abd: soft, nontender, +BS x4 Ext: no clubbing/cyanosis/edema, nontender Neuro: drowsy but awakens, no focal deficits, moves all extremities, sensations intact b/l upper/lower Psychiatric: Skin: warm/dry, normal color Constitutional Vitals: Vital Signs Temp Pulse Resp BP Pulse Ox O2 Del Method 96.8 F L 79 17 130/45 92 Room Air 01/04/23 04:01 01/04/23 06:01 01/04/23 06:01 01/04/23 06:01 01/04/23 06:01 01/04/23 06:01 Period Temp Pulse Resp BP Sys/Rosario Pulse Ox O2 Del Method O2 Flow Rate Last 24 Hr 96.8 F-97.9 F 48-115 11-25 84-144/33-60 86-100 Room Air-Room Air Intake and Output 01/03/23 01/04/23 01/04/23 19:59 03:59 11:59 Intake Total 2027 1979 1825 Output Total 625 250 Balance 2027 1355 1576 Weight 68.583 kg Intake & Output: Intake & Output 01/03/23 01/04/23 01/04/23 19:59 03:59 11:59 Intake Total 2027 1979 1825 Output Total 625 250 Balance 2027 1355 1576 Weight 68.583 kg Intake: IV 2027 1620 1826 Sodium Chloride 0.9% 1,000 ml @ 2000 1000 600 150 mls/hr IV .Q6H40M PEG Rx#: [id number] Dextrose 5%-Ns IV Solution 1, 1000 000 ml @ 150 mls/hr IV .Q6H40M PEG Rx#:[id number] HumuLIN R 50 UNIT In Sodium 28 103 9 Chloride 0.9% 99.5 ml @ 6 UNIT/ HR 12 mls/hr IV DUR PEG Rx#: [id number] Lactated Ringers 500 ml @ Wide 500 Open IV BOLUS ONE Rx#: [id number] Levophed 8 mg In Sodium 17 217 Chloride 0.9% 242 ml @ 5 MCG/ MIN 9.375 mls/hr IV Q14H [facility] Rx #:[id number] Oral 360 Output: Urine Catheter Amount 625 250 Other: Urine Appearance Clear Clear Uretheral (Alcazar) Clear Urine Color Dark Yellow Yellow Uretheral (Alcazar) Dark Yellow Urine Odor Normal Normal OBJ DATA Labs 01/04/23 05:37 01/04/23 05:37 Labs: Abnormal Lab Results 01/04/23 01/04/23 01/04/23 08:27 05:37 05:37 WBC 16.2 H Hct 33.3 L Immature Gran % (Auto) Neut % (Auto) Lymph % (Auto) Lymph # (Auto) [place] # (Auto) 1.42 H Immature Gran # Absolute Neutrophils 10.22 H POC VBG pH 7.66 H* POC VBG pCO2 at Temp 12.2 L* POC VBG pO2 176 H POC VBG HCO3 13.9 L POC VBG Total CO2 14.0 L POC Venous O2 Sat 100.0 H POC VBG Base Excess -7.0 L VBG Lactic Acid POC Sodium Sodium POC Potassium Potassium POC Chloride Chloride Carbon Dioxide 18 L POC Total CO2 Anion Gap POC BUN BUN 31 H Creatinine Glucose 181 H POC Glucose Osmolality Calcium 8.0 L Phosphorus 2.3 L Direct Bilirubin Alkaline Phosphatase 118 H Lactate Dehydrogenase 247 H NT-Pro-B Natriuret Pep Total Protein 5.0 L Albumin 2.9 L Globulin 2.1 L Lipase Beta-Hydroxybutyrate 0.69 H Urine Glucose (UA) Urine Ketones Urine WBC Urine Mucus 01/03/23 01/03/23 01/03/23 23:53 19:17 18:20 WBC Hct Immature Gran % (Auto) Neut % (Auto) Lymph % (Auto) Lymph # (Auto) [place] # (Auto) Immature Gran # Absolute Neutrophils POC VBG pH POC VBG pCO2 at Temp POC VBG pO2 POC VBG HCO3 POC VBG Total CO2 POC Venous O2 Sat POC VBG Base Excess VBG Lactic Acid POC Sodium Sodium POC Potassium Potassium POC Chloride Chloride Carbon Dioxide POC Total CO2 Anion Gap POC BUN BUN Creatinine Glucose POC Glucose Osmolality 334 H Calcium Phosphorus Direct Bilirubin Alkaline Phosphatase Lactate Dehydrogenase NT-Pro-B Natriuret Pep Total Protein Albumin Globulin Lipase Beta-Hydroxybutyrate Urine Glucose (UA) >=500 A >=500 A Urine Ketones 20 A 80 A Urine WBC 7 H Urine Mucus Few A 01/03/23 01/03/23 01/03/23 15:52 15:30 14:57 WBC Hct Immature Gran % (Auto) Neut % (Auto) Lymph % (Auto) Lymph # (Auto) [place] # (Auto) Immature Gran # Absolute Neutrophils POC VBG pH 7.17 L* POC VBG pCO2 at Temp 17.9 L* POC VBG pO2 138 H POC VBG HCO3 6.5 L* POC VBG Total CO2 7.0 L POC Venous O2 Sat 98.0 H POC VBG Base Excess -22.0 L VBG Lactic Acid 4.0 H* POC Sodium Sodium 122 L POC Potassium Potassium 6.0 H* POC Chloride Chloride 84 L Carbon Dioxide 5 L* POC Total CO2 Anion Gap 33.0 H POC BUN BUN 39 H Creatinine 1.5 H Glucose 877 H* POC Glucose Osmolality Calcium Phosphorus 6.3 H* Direct Bilirubin Alkaline Phosphatase Lactate Dehydrogenase NT-Pro-B Natriuret Pep Total Protein Albumin Globulin Lipase Beta-Hydroxybutyrate Urine Glucose (UA) Urine Ketones Urine WBC Urine Mucus 01/03/23 01/03/23 01/03/23 14:57 14:57 14:28 WBC Hct Immature Gran % (Auto) 0.6 H Neut % (Auto) 85.8 H Lymph % (Auto) 10.7 L Lymph # (Auto) 1.10 L [place] # (Auto) Immature Gran # 0.06 H Absolute Neutrophils 8.80 H POC VBG pH POC VBG pCO2 at Temp POC VBG pO2 POC VBG HCO3 POC VBG Total CO2 POC Venous O2 Sat POC VBG Base Excess VBG Lactic Acid POC Sodium 123 L Sodium POC Potassium 5.2 H Potassium POC Chloride 93 L Chloride Carbon Dioxide POC Total CO2 10.0 L Anion Gap POC BUN 35 H BUN Creatinine Glucose POC Glucose > 700 H* Osmolality Calcium Phosphorus Direct Bilirubin 0.3 H Alkaline Phosphatase 150 H Lactate Dehydrogenase NT-Pro-B Natriuret Pep 1344.0 H Total Protein Albumin Globulin Lipase 80 H Beta-Hydroxybutyrate 8.25 H Urine Glucose (UA) Urine Ketones Urine WBC Urine Mucus Meds: Medications Acetaminophen (Acetaminophen 325 Mg Tablet) 650 mg PO Q6HP PRN; Protocol PRN Reason: Per Pain Protocol/Fever > 101 Last Admin: 01/04/23 00:08 Dose: 650 mg Albuterol/Ipratropium (Ipratropium/Albuterol 3 Ml Ampul.Neb) 3 ml NEB Q4HP PRN PRN Reason: Shortness Of Breath Albuterol/Ipratropium (Ipratropium/Albuterol 3 Ml Ampul.Neb) 3 ml NEB Q8H PEG Stop: 01/05/23 11:18 Last Admin: 01/04/23 04:13 Dose: Not Given Benzonatate (Benzonatate 100 Mg Capsule) 200 mg PO TIDP PRN PRN Reason: Cough Last Admin: 01/04/23 08:02 Dose: 200 mg Diagnostic Test (Pha) (Accu-Chek 1 Each Strip) 1 each FS Q1 [facility] Last Admin: 01/04/23 08:02 Dose: 1 each Diphenhydramine HCl (Diphenhydramine 25 Mg Capsule) 50 mg PO QHS [facility] Last Admin: 01/03/23 20:34 Dose: 50 mg Docusate Sodium (Docusate Sodium 100 Mg Capsule) 100 mg PO BID [facility] Last Admin: 01/04/23 08:03 Dose: 100 mg Enoxaparin Sodium (Enoxaparin 40 Mg/0.4 Ml Syringe) 40 mg SQ DAILY [facility] Last Admin: 01/04/23 08:04 Dose: 40 mg Gabapentin (Gabapentin 400 Mg Capsule) 400 mg PO TID [facility] Last Admin: 01/04/23 08:04 Dose: 400 mg Guaifenesin/Codeine Phosphate (Guaifenesin/Codeine 10 Ml Udc) 10 ml PO Q4HP PRN PRN Reason: Cough Last Admin: 01/04/23 08:02 Dose: 10 ml Hyoscyamine (Hyoscyamine Sulfate 0.125 Mg Tablet) 0.125 mg SL Q6HP PRN PRN Reason: muscle spasm Last Admin: 01/04/23 00:09 Dose: 0.125 mg Insulin Human Regular 50 unit/ (Sodium Chloride) 100 mls @ 12 mls/hr IV DUR PEG; Protocol Last Titration: 01/04/23 08:02 Dose: 1.5 unit/hr, 3 mls/hr Potassium Chloride 40 meq/ (Dextrose) 520 mls @ 130 mls/hr IV UD PRN PRN Reason: Potassium < 3 Magnesium Sulfate (Magnesium Sulfate) 2 gm in 50 mls @ 50 mls/hr IV UD PRN PRN Reason: Magnesium </= 1.6 Last Admin: 01/04/23 07:42 Dose: 50 mls/hr Sodium Chloride (Sodium Chloride 0.9%) 1,000 mls @ 150 mls/hr IV .Q6H40M [facility] Last Admin: 01/04/23 08:03 Dose: Not Given Norepinephrine Bitartrate 8 mg (/ Sodium Chloride) 250 mls @ 9.375 mls/hr IV Q14H [facility]; Protocol Last Titration: 01/04/23 08:03 Dose: 10 mcg/min, 18.75 mls/hr Sodium Chloride (Sodium Chloride 0.9%) 250 mls @ 20 mls/hr IV .[id number] [facility] Last Admin: 01/03/23 22:57 Dose: Not Given Dextrose/Sodium Chloride (Dextrose 5%-Ns Iv Solution) 1,000 mls @ 150 mls/hr IV .Q6H40M [facility] Last Admin: 01/04/23 07:04 Dose: 150 mls/hr Insulin Glargine (Insulin Glargine, Human 1 Unit/0.01 Ml) 20 unit SQ BID [facility] Last Admin: 01/03/23 20:34 Dose: 20 units Levothyroxine Sodium (Levothyroxine 125 Mcg Tablet) 125 mcg PO QAMAC [facility] Last Admin: 01/04/23 07:35 Dose: 125 mcg Ondansetron HCl (Ondansetron 4 Mg/2 Ml Vial) 4 mg IV Q4HP PRN PRN Reason: Nausea And Vomiting Lipase-Protease- Amylase [Zenpep] 40, 000-126,000-168,000 1 dose PO TID [facility] Last Admin: 01/04/23 07:53 Dose: 1 dose Polyethylene Glycol (Polyethylene Glycol 3350 17 Gm Packet) 17 gm PO DAILYP PRN PRN Reason: Constipation Potassium Chloride (Potassium Chloride 20 Meq Tablet) 40 meq PO UD PRN PRN Reason: Potssium is 3-3.5 Potassium Chloride (Potassium Chloride 20 Meq Tablet) 40 meq PO UD PRN PRN Reason: Potassium < 3 Propranolol HCl (Propranolol 10 Mg Tablet) 10 mg PO TID [facility] Last Admin: 01/04/23 08:03 Dose: 10 mg Senna (Sennosides 1 Tablet) 2 tab PO DAILYP PRN PRN Reason: Constipation Sodium Chloride (0.9 % Sodium Chloride 10 Ml Syringe) 10 ml IV Q8 PEG Last Admin: 01/04/23 05:10 Dose: 10 ml Throat Lozenges (Benzocaine/Menthol 1 Lozenge) 1 lozenge PO PRN PRN PRN Reason: Sore Throat Last Admin: 01/04/23 00:08 Dose: 1 lozenge Tramadol HCl (Tramadol 50 Mg Tablet) 50 mg PO Q6HP PRN PRN Reason: pain Last Admin: 01/03/23 20:35 Dose: 50 mg Trazodone HCl (Trazodone Hcl 100 Mg Tablet) 100 mg PO HSP PRN PRN Reason: insomnia Last Admin: 01/03/23 20:35 Dose: 100 mg A/P Narrative A/P Narrative: A: #DKA/HHS, mod-severe: -has been off insulin past several days b/c was not feeling well #Hypovolemic Shock: -levophed started -BC neg, UA/cxr neg #DM2 Poorly controlled insulin-dependent w/neuropathy: -A1c 11.0 in september #Hypotension, hypovolemic: #Encephalopathy: 2/2 above #Metabolic acidosis, severe, and Lactic Acidosis(improved): improving #SUDARSHAN w/severe volume depletion: 2/2 above #Acute bronchitis: -covid/flu/rsv/rvp2 neg #Hyperkalemia/Hyperphos: improved #Generalized weakness/deconditioning: #h/o CAD: #Hypothyroidism: cont levothyroxine #Chronic pancreatitis: #Hypertriglyceridemia: #chronically elevated LFT's #Essential tremor: #chr back pain: #Long-term prognosis quite guarded with multiple admissions and poor compliance -Family has been trying to get her into a nursing facility Plan: -insulin gtt to SQ and SSI -IVF's, wean off levophed -f/u vbg/bhb, osmol -Monitor electrolytes closely Replace as needed -Monitor renal function, avoid nephrotoxic meds -uop, i/o -duonebs, IS/Acapella, RT -man diff for leukocytosis -Continue home duloxetine/gabapentin -Continue her home pancreatic enzyme supplements, levothyroxine, fenofibrate -qhs snack when back on home regimen -PT/OT -CM for SNF placement -DVT prophylaxis: lovenox CODE STATUS: DNR Time Spent With Patient Time: Total time spent is greater than 50% in coordination of care (as documented) at patient's floor/unit and/or counseling patient: Critical Care Time: Yes Total Critical Care Time: 60
[2023-01-04] MEDS: INSULIN GLARGINE, HUMAN 1 UNIT/0.01 ML SQ SCH ×2 (08:46→20:21)
[2023-01-04 09:44] LABS: Basophils % (Manual) 1 % (0-2); Eosinophils % (Manual) 1 % (0-7); Lymphocytes % 20 % (15-49); Monocytes % (Manual) 5 % (1-12); RBC Morphology NORMAL (Normal); Segmented Neutrophils % 73 % (38-78)
[2023-01-04] MEDS ORDERED: DEXTROSE 50% 50 ML VIAL IV PRN (10:47)
[2023-01-04] MEDS ORDERED: DEXTROSE 31 GM ORAL.SUSP PO PRN (10:47)
[2023-01-04] MEDS: 0.9 % SODIUM CHLORIDE 250 ML IV SCH ×2 (11:35→22:33)
[2023-01-04 12:03] LABS: Platelet Estimate NORMAL (Normal)
[2023-01-04] MEDS: INSULIN LISPRO 1 UNIT/0.01 ML UNIT SQ SCH ×4 (12:12→23:37)
[2023-01-04] MEDS: traMADol 50 MG TABLET PO PRN ×2 (12:49→20:22)
--- NOTE | 2023-01-04 16:23 | EKG ---
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 Measurements Intervals [place] Rate: 102 P: 47 OR: 160 QRS: 15 QRSD: 93 T: 103 QT: 358 QTc: 467 Interpretive Statements Sinus tachycardia Borderline repolarization abnormality Electronically Signed On 01-04-2023 16:23:40 PDT by Will Lawler M.D. /[id number]
[2023-01-04] MEDS: diphenhydrAMINE 25 MG CAPSULE PO SCH (20:20)
[2023-01-04] MEDS: traZODone HCL 100 MG TABLET PO PRN (23:37)
[2023-01-05] MEDS: NOREPINEPHRINE BITARTRATE 8 MG in 0.9 % SODIUM CHLORIDE 242 ML IV SCH (03:33)
[2023-01-05] MEDS: traMADol 50 MG TABLET PO PRN ×4 (03:57→20:35)
[2023-01-05] MEDS: IPRATROPIUM/ALBUTEROL 3 ML AMPUL.NEB NEB SCH ×2 (03:58→10:07)
[2023-01-05] MEDS: INSULIN LISPRO 1 UNIT/0.01 ML UNIT SQ SCH ×5 (03:58→20:43)
[2023-01-05] MEDS: 0.9 % SODIUM CHLORIDE 10 ML SYRINGE IV SCH ×3 (05:37→20:35)
[2023-01-05] MEDS: 0.9 % SODIUM CHLORIDE 1,000 ML IV SCH (06:33)
[2023-01-05] MEDS: DOCUSATE SODIUM 100 MG CAPSULE PO SCH ×3 (07:47→20:35)
[2023-01-05] MEDS: LEVOTHYROXINE 125 MCG TABLET PO SCH (07:48)
[2023-01-05] MEDS: GABAPENTIN 400 MG CAPSULE PO SCH ×3 (07:48→20:35)
[2023-01-05] MEDS: LIPASE PROTEASE AMYLASE PO SCH ×3 (07:49→17:24)
[2023-01-05] MEDS: PROPRANOLOL 10 MG TABLET PO SCH ×3 (08:04→20:35)
[2023-01-05] MEDS: ENOXAPARIN 40 MG/0.4 ML SYRINGE SQ SCH (08:05)
[2023-01-05] MEDS: INSULIN GLARGINE, HUMAN 1 UNIT/0.01 ML SQ SCH ×2 (08:05→20:43)
--- NOTE | 2023-01-05 08:20 | Internal Med Progress Note ---
SUBJECTIVE Subjective Patient information: Note initiated : 01/05/23 at 8:16 am Service Date, if different from initiated Date: [] Patient: Tennille Castillo a 77 y/o F admitted on 01/03/23 for SOB/HI BG. Chief Complaint: [] Interval history: History of present illness: Ms. Castillo is a 77 year old F Presents the ED with shortness of breath for 3 weeks and cough. Per EMS her blood glucose was read as "high". Patient states she has developed cough shortness of breath and weakness which started 2 to 3 weeks ago she went to [facility] and got doxycycline but has not improved. She has not seen her PCP because she says her PCP fired her. She has not gotten a new PCP yet. She says her cough is productive of yellow-green sputum. She denies chest pain or stomach pain. She does complain of headache and chills but no fever. Chest x-ray in ED unremarkable. Rapid flu and COVID-negative Patient has not been taking her insulin for the past couple days because she has had a poor appetite. Patient has had multiple hospitalizations for DKA usual elated to noncompliance of medications. Last admission was November Records from last admission reported that the daughter has been trying to get her into a nursing facility. Patient complains of severe weakness and not able to minimally get out of bed. She has chronic back pain which really bothers her. She has had some mild nausea but none today and no vomiting. She denies chest pain or shortness of breath. She denies diarrhea or constipation or abdominal pain. In the ED she is found to have a pH of 7.17 with a bicarb of 5. Beta hydroxybutyric acid of 8.2 with a BUN of 39 and creatinine 1.5 chloride at 93 and a sodium of 123 but that is not corrected for hyperglycemia. Her glucose was 877. Patient was given several fluid boluses in the ED as well as a regular insulin IV push and an insulin drip started. Patient denies any recent illnesses other than the acute bronchitis Patient is lethargic. 01/04 Patient weak and tired, has continued cough. Denies shortness of breath at rest. Patient on Levophed and required last night. Despite fluid boluses. Acid-base balance improving. Hyperkalemia resolved. Still acidotic. Renal function improving. Good urine output. A.m. cortisol okay. Attempt to wean down off Levophed. 01/05 Patient complains of cough and some wheezing. States he slept okay. still weak. Patient off Levophed since yesterday evening. Patient complains of chills headache some wheezing. Review of Systems: Pertinent positive as above. Denies headache/fever/chills/vomiting/chest or abdominal pain/diarrhea. PHYSICAL EXAM General: Awake, no acute distress Eyes/N/T: EOMI, no scleral icterus, Head/Neck: neck supple, full ROM, CV: RRR, 3/6SM, Pulm: mild Rhonchi b/l, no wheezing, no respiratory distress Abd: soft, nontender, +BS x4 Ext: no clubbing/cyanosis/edema, nontender Neuro: Alert, no focal deficits, moves all extremities, sensations intact b/l upper/lower Psychiatric: Skin: warm/dry, normal color Constitutional Vitals: Vital Signs Temp Pulse Resp BP Pulse Ox O2 Del Method 97.3 F 68 16 106/77 92 Room Air 01/05/23 06:41 01/04/23 20:10 01/05/23 05:09 01/05/23 06:41 01/05/23 05:09 01/05/23 06:55 Period Temp Pulse Resp BP Sys/Rosario Pulse Ox O2 Del Method O2 Flow Rate Last 24 Hr 97.3 F-98.4 F 61-78 16-20 80-151/42-91 90-99 Room Air-Room Air Intake and Output 01/04/23 01/05/23 01/05/23 19:59 03:59 11:59 Intake Total 1416 1297 1000 Output Total 775 1950 Balance 641 1297 -950 Weight 68.13 kg Intake & Output: Intake & Output 01/04/23 01/05/23 01/05/23 19:59 03:59 11:59 Intake Total 1416 1297 1000 Output Total 775 1950 Balance 641 1297 -950 Weight 68.13 kg Intake: IV 610 037 9650 Sodium Chloride 0.9% 1,000 ml @ 857 1000 100 mls/hr IV .Q10H PEG Rx#: [id number] Levophed 8 mg In Sodium 116 Chloride 0.9% 242 ml @ 5 MCG/ MIN 9.375 mls/hr IV Q14H PEG Rx #:[id number] Oral 1300 440 Output: Urine Catheter Amount 775 Void Amount 1950 Other: Meal Dinner Percent of Meal Consumed 100% Feeding Ability Independent Urine Appearance Clear Clear Uretheral (Alcazar) Clear Clear Urine Color Yellow Pale Uretheral (Alcazar) Yellow Yellow Urine Odor Normal Stool Size Large Stool Color Brown Stool Consistency Soft Loose # Bowel Movements 1 OBJ DATA Labs 01/05/23 07:04 01/05/23 07:04 Labs: Abnormal Lab Results 01/04/23 01/04/23 01/04/23 08:27 05:37 05:37 WBC 16.2 H Hct 33.3 L Immature Gran % (Auto) Neut % (Auto) Lymph % (Auto) Lymph # (Auto) [place] # (Auto) 1.42 H Immature Gran # Absolute Neutrophils 10.22 H POC VBG pH 7.66 H* POC VBG pCO2 at Temp 12.2 L* POC VBG pO2 176 H POC VBG HCO3 13.9 L POC VBG Total CO2 14.0 L POC Venous O2 Sat 100.0 H POC VBG Base Excess -7.0 L VBG Lactic Acid POC Sodium Sodium POC Potassium Potassium POC Chloride Chloride Carbon Dioxide 18 L POC Total CO2 Anion Gap POC BUN BUN 31 H Creatinine Glucose 181 H POC Glucose Osmolality Calcium 8.0 L Phosphorus 2.3 L Direct Bilirubin Alkaline Phosphatase 118 H Lactate Dehydrogenase 247 H NT-Pro-B Natriuret Pep Total Protein 5.0 L Albumin 2.9 L Globulin 2.1 L Lipase Beta-Hydroxybutyrate 0.69 H Urine Glucose (UA) Urine Ketones Urine WBC Urine Mucus 01/03/23 01/03/23 01/03/23 23:53 19:17 18:20 WBC Hct Immature Gran % (Auto) Neut % (Auto) Lymph % (Auto) Lymph # (Auto) [place] # (Auto) Immature Gran # Absolute Neutrophils POC VBG pH POC VBG pCO2 at Temp POC VBG pO2 POC VBG HCO3 POC VBG Total CO2 POC Venous O2 Sat POC VBG Base Excess VBG Lactic Acid POC Sodium Sodium POC Potassium Potassium POC Chloride Chloride Carbon Dioxide POC Total CO2 Anion Gap POC BUN BUN Creatinine Glucose POC Glucose Osmolality 334 H Calcium Phosphorus Direct Bilirubin Alkaline Phosphatase Lactate Dehydrogenase NT-Pro-B Natriuret Pep Total Protein Albumin Globulin Lipase Beta-Hydroxybutyrate Urine Glucose (UA) >=500 A >=500 A Urine Ketones 20 A 80 A Urine WBC 7 H Urine Mucus Few A 01/03/23 01/03/23 01/03/23 15:52 15:30 14:57 WBC Hct Immature Gran % (Auto) Neut % (Auto) Lymph % (Auto) Lymph # (Auto) [place] # (Auto) Immature Gran # Absolute Neutrophils POC VBG pH 7.17 L* POC VBG pCO2 at Temp 17.9 L* POC VBG pO2 138 H POC VBG HCO3 6.5 L* POC VBG Total CO2 7.0 L POC Venous O2 Sat 98.0 H POC VBG Base Excess -22.0 L VBG Lactic Acid 4.0 H* POC Sodium Sodium 122 L POC Potassium Potassium 6.0 H* POC Chloride Chloride 84 L Carbon Dioxide 5 L* POC Total CO2 Anion Gap 33.0 H POC BUN BUN 39 H Creatinine 1.5 H Glucose 877 H* POC Glucose Osmolality Calcium Phosphorus 6.3 H* Direct Bilirubin Alkaline Phosphatase Lactate Dehydrogenase NT-Pro-B Natriuret Pep Total Protein Albumin Globulin Lipase Beta-Hydroxybutyrate Urine Glucose (UA) Urine Ketones Urine WBC Urine Mucus 01/03/23 01/03/23 01/03/23 14:57 14:57 14:28 WBC Hct Immature Gran % (Auto) 0.6 H Neut % (Auto) 85.8 H Lymph % (Auto) 10.7 L Lymph # (Auto) 1.10 L [place] # (Auto) Immature Gran # 0.06 H Absolute Neutrophils 8.80 H POC VBG pH POC VBG pCO2 at Temp POC VBG pO2 POC VBG HCO3 POC VBG Total CO2 POC Venous O2 Sat POC VBG Base Excess VBG Lactic Acid POC Sodium 123 L Sodium POC Potassium 5.2 H Potassium POC Chloride 93 L Chloride Carbon Dioxide POC Total CO2 10.0 L Anion Gap POC BUN 35 H BUN Creatinine Glucose POC Glucose > 700 H* Osmolality Calcium Phosphorus Direct Bilirubin 0.3 H Alkaline Phosphatase 150 H Lactate Dehydrogenase NT-Pro-B Natriuret Pep 1344.0 H Total Protein Albumin Globulin Lipase 80 H Beta-Hydroxybutyrate 8.25 H Urine Glucose (UA) Urine Ketones Urine WBC Urine Mucus Meds: Medications Acetaminophen (Acetaminophen 325 Mg Tablet) 650 mg PO Q6HP PRN; Protocol PRN Reason: Per Pain Protocol/Fever > 101 Last Admin: 01/04/23 00:08 Dose: 650 mg Albuterol/Ipratropium (Ipratropium/Albuterol 3 Ml Ampul.Neb) 3 ml NEB Q4HP PRN PRN Reason: Shortness Of Breath Albuterol/Ipratropium (Ipratropium/Albuterol 3 Ml Ampul.Neb) 3 ml NEB Q8H [facility] Stop: 01/05/23 11:18 Last Admin: 01/05/23 03:58 Dose: 3 ml Benzonatate (Benzonatate 100 Mg Capsule) 200 mg PO TIDP PRN PRN Reason: Cough Last Admin: 01/04/23 23:37 Dose: 200 mg Dextrose (Dextrose 50% 50 Ml Vial) 0 ml IV UD PRN PRN Reason: Per Sliding Scale Diagnostic Test (Pha) (Accu-Chek 1 Each Strip) 1 each FS Q4 [facility] Last Admin: 01/05/23 08:04 Dose: 1 each Diphenhydramine HCl (Diphenhydramine 25 Mg Capsule) 50 mg PO QHS [facility] Last Admin: 01/04/23 20:20 Dose: 50 mg Docusate Sodium (Docusate Sodium 100 Mg Capsule) 100 mg PO BID [facility] Last Admin: 01/05/23 08:05 Dose: Not Given Enoxaparin Sodium (Enoxaparin 40 Mg/0.4 Ml Syringe) 40 mg SQ DAILY [facility] Last Admin: 01/05/23 08:05 Dose: Not Given Gabapentin (Gabapentin 400 Mg Capsule) 400 mg PO TID [facility] Last Admin: 01/05/23 07:48 Dose: 400 mg Glucose (Dextrose 31 Gm Oral.Susp) 15 gm PO PRN PRN PRN Reason: Hypoglycemia Guaifenesin/Codeine Phosphate (Guaifenesin/Codeine 10 Ml Udc) 10 ml PO Q4HP PRN PRN Reason: Cough Last Admin: 01/04/23 16:58 Dose: 10 ml Hyoscyamine (Hyoscyamine Sulfate 0.125 Mg Tablet) 0.125 mg SL Q6HP PRN PRN Reason: muscle spasm Last Admin: 01/04/23 23:45 Dose: 0.125 mg Potassium Chloride 40 meq/ (Dextrose) 520 mls @ 130 mls/hr IV UD PRN PRN Reason: Potassium < 3 Magnesium Sulfate (Magnesium Sulfate) 2 gm in 50 mls @ 50 mls/hr IV UD PRN PRN Reason: Magnesium </= 1.6 Last Infusion: 01/04/23 08:59 Dose: Infused Norepinephrine Bitartrate 8 mg (/ Sodium Chloride) 250 mls @ 9.375 mls/hr IV Q14H [facility]; Protocol Last Admin: 01/05/23 03:33 Dose: Not Given Sodium Chloride (Sodium Chloride 0.9%) 250 mls @ 20 mls/hr IV .[id number] [facility] Last Admin: 01/04/23 22:33 Dose: Not Given Sodium Chloride (Sodium Chloride 0.9%) 1,000 mls @ 100 mls/hr IV .Q10H [facility] Last Admin: 01/05/23 06:33 Dose: 100 mls/hr Insulin Glargine (Insulin Glargine, Human 1 Unit/0.01 Ml) 20 unit SQ BID [facility] Last Admin: 01/05/23 08:05 Dose: 20 units Insulin Human Lispro (Insulin Lispro 1 Unit/0.01 Ml Unit) 0 unit SQ Q4 [facility]; P rotocol Last Admin: 01/05/23 08:04 Dose: Not Given Levothyroxine Sodium (Levothyroxine 125 Mcg Tablet) 125 mcg PO QAMAC [facility] Last Admin: 01/05/23 07:48 Dose: 125 mcg Ondansetron HCl (Ondansetron 4 Mg/2 Ml Vial) 4 mg IV Q4HP PRN PRN Reason: Nausea And Vomiting Lipase-Protease- Amylase [Zenpep] 40, 000-126,000-168,000 1 dose PO AC [facility] Last Admin: 01/05/23 07:49 Dose: 1 dose Polyethylene Glycol (Polyethylene Glycol 3350 17 Gm Packet) 17 gm PO DAILYP PRN PRN Reason: Constipation Potassium Chloride (Potassium Chloride 20 Meq Tablet) 40 meq PO UD PRN PRN Reason: Potssium is 3-3.5 Last Admin: 01/04/23 08:46 Dose: 40 meq Potassium Chloride (Potassium Chloride 20 Meq Tablet) 40 meq PO UD PRN PRN Reason: Potassium < 3 Propranolol HCl (Propranolol 10 Mg Tablet) 10 mg PO TID [facility] Last Admin: 01/05/23 08:04 Dose: 10 mg Senna (Sennosides 1 Tablet) 2 tab PO DAILYP PRN PRN Reason: Constipation Sodium Chloride (0.9 % Sodium Chloride 10 Ml Syringe) 10 ml IV Q8 [facility] Last Admin: 01/05/23 05:37 Dose: 10 ml Throat Lozenges (Benzocaine/Menthol 1 Lozenge) 1 lozenge PO PRN PRN PRN Reason: Sore Throat Last Admin: 01/04/23 00:08 Dose: 1 lozenge Tramadol HCl (Tramadol 50 Mg Tablet) 50 mg PO Q6HP PRN PRN Reason: pain Last Admin: 01/05/23 03:57 Dose: 50 mg Trazodone HCl (Trazodone Hcl 100 Mg Tablet) 100 mg PO HSP PRN PRN Reason: insomnia Last Admin: 01/04/23 23:37 Dose: 100 mg A/P Narrative A/P Narrative: A: #DKA/HHS, mod-severe: improved -had been off insulin past several days b/c was not feeling well #Hypovolemic Shock: resolved -levophed off last night -BC neg, UA/cxr neg #DM2 Poorly controlled insulin-dependent w/neuropathy: -A1c 11.0 in september #Hypotension, hypovolemic: improving #Encephalopathy: 2/2 above, #Metabolic acidosis, severe, and Lactic Acidosis(improved): improving #SUDARSHAN w/severe volume depletion: 2/2 above, improving #Acute bronchitis: -covid/flu/rsv/rvp2 neg #Hyperkalemia/Hyperphos: improved #Generalized weakness/deconditioning: #h/o CAD: #Anemia, acute on chronic / Thrombocytopenia, acute on chronic: #Hypothyroidism: cont levothyroxine #Chronic pancreatitis: #Hypertriglyceridemia: #chronically elevated LFT's #Essential tremor: #chr back pain: #Long-term prognosis quite guarded with multiple admissions and poor compliance -Family has been trying to get her into a nursing facility Plan: -cont basal SQ insulin and SSI. titrate as needed -IVF's d/c -Monitor electrolytes closely Replace as needed -Monitor renal function, avoid nephrotoxic meds -uop, i/o -duonebs, IS/Acapella, RT -antitussin -Continue home duloxetine/gabapentin -Continue her home pancreatic enzyme supplements, levothyroxine, fenofibrate -qhs snack when back on home regimen -PT/OT -CM for SNF placement -DVT prophylaxis: lovenox CODE STATUS: DNR Time Spent With Patient Time: Total time spent is greater than 50% in coordination of care (as documented) at patient's floor/unit and/or counseling patient: Subsequent: Total time with patient: 50 - 65 Minutes
[2023-01-05 08:21] LABS: ALT/SGPT 9 U/L (<40); AST/SGOT 14 U/L (<32); Albumin 2.6 gm/dL (3.2-5.2); Albumin/Globulin Ratio 1.4 (1.0-2.3); Alkaline Phosphatase 96 U/L (39-117); Basophils # (Auto) 0.04 K/mcL (0.00-0.30); Basophils % (Auto) 0.7 % (0.0-2.0); Bilirubin,Direct < 0.2 mg/dL (0-0.3); Bilirubin,Total 0.2 mg/dL (0.1-1.0); Blood Urea Nitrogen 15 mg/dL (8-23); Calcium 7.9 mg/dL (8.6-10.4); Carbon Dioxide 21 mmol/L (22-30); Chloride 113 mmol/L (96-108); Eosinophils # (Auto) 0.15 K/mcL (0.00-0.70); Eosinophils % (Auto) 2.5 % (0.0-7.0); Globulin 1.8 gm/dL (2.2-3.7); Glomerular Filtration Rate 88; Glucose 132 mg/dL (70-105); Hematocrit 29.9 % (34.1-44.9); Hemoglobin 9.9 g/dL (11.2-15.7); Lactate Dehydrogenase 170 U/L (135-225); Lymphocytes # (Auto) 2.54 K/mcL (1.50-4.80); Lymphocytes % (Auto) 41.8 % (15.5-49.0); Mean Cell Volume 86.9 fL (80.0-100.0); Mean Corpuscular HGB Conc 33.1 g/dL (31.0-36.0); Mean Platelet Volume 10.8 fL (8.8-12.5); Monocytes # (Auto) 0.32 K/mcL (0.10-0.90); Monocytes % (Auto) 5.3 % (1.0-12.0); Neutrophils % (Auto) 49.4 % (38.0-78.0); Phosphorous 2.3 mg/dL (2.5-4.5); Platelet Count 119 K/mcL (140-440); RBC 3.44 M/mcL (3.59-5.38); Red Cell Distribution Width 14.6 % (11.5-14.5); Triglycerides 62 mg/dL (<150); Uric Acid 5.3 mg/dL (2.5-8.0); WBC 6.1 K/mcL (4.5-11.0)
[2023-01-05] MEDS: BENZONATATE 100 MG CAPSULE PO PRN ×2 (09:52→16:03)
[2023-01-05] MEDS: ACETAMINOPHEN 325 MG TABLET PO PRN (09:55)
[2023-01-05] MEDS: guaiFENesin/CODEINE 10 ML UDC PO PRN (11:03)
[2023-01-05] MEDS: diphenhydrAMINE 25 MG CAPSULE PO SCH (20:34)
[2023-01-05] MEDS: traZODone HCL 100 MG TABLET PO PRN (20:35)
[2023-01-06] MEDS: traMADol 50 MG TABLET PO PRN ×2 (04:20→11:34)
[2023-01-06] MEDS: 0.9 % SODIUM CHLORIDE 10 ML SYRINGE IV SCH ×3 (05:07→20:51)
[2023-01-06 06:35] LABS: Basophils # (Auto) 0.04 K/mcL (0.00-0.30); Basophils % (Auto) 0.7 % (0.0-2.0); Eosinophils % (Auto) 3.7 % (0.0-7.0); Hemoglobin 10.8 g/dL (11.2-15.7); Lymphocytes # (Auto) 2.37 K/mcL (1.50-4.80); Lymphocytes % (Auto) 43.6 % (15.5-49.0); Mean Cell Volume 86.6 fL (80.0-100.0); Mean Corpuscular HGB Conc 32.7 g/dL (31.0-36.0); Mean Platelet Volume 10.8 fL (8.8-12.5); Monocytes # (Auto) 0.29 K/mcL (0.10-0.90); Monocytes % (Auto) 5.3 % (1.0-12.0); Neutrophils % (Auto) 46.5 % (38.0-78.0); Platelet Count 141 K/mcL (140-440); RBC 3.81 M/mcL (3.59-5.38); Red Cell Distribution Width 14.6 % (11.5-14.5); WBC 5.4 K/mcL (4.5-11.0)
[2023-01-06 07:05] LABS: ALT/SGPT 10 U/L (<40); AST/SGOT 20 U/L (<32); Albumin 2.8 gm/dL (3.2-5.2); Albumin/Globulin Ratio 1.4 (1.0-2.3); Alkaline Phosphatase 102 U/L (39-117); Bilirubin,Direct < 0.2 mg/dL (0-0.3); Bilirubin,Total 0.2 mg/dL (0.1-1.0); Blood Urea Nitrogen 11 mg/dL (8-23); Calcium 8.4 mg/dL (8.6-10.4); Carbon Dioxide 23 mmol/L (22-30); Chloride 111 mmol/L (96-108); Glomerular Filtration Rate 93; Glucose 133 mg/dL (70-105); Lactate Dehydrogenase 167 U/L (135-225); Phosphorous 2.5 mg/dL (2.5-4.5); Triglycerides 77 mg/dL (<150); Uric Acid 4.4 mg/dL (2.5-8.0)
[2023-01-06] MEDS: INSULIN LISPRO 1 UNIT/0.01 ML UNIT SQ SCH ×4 (07:39→20:56)
[2023-01-06] MEDS: LEVOTHYROXINE 125 MCG TABLET PO SCH (07:41)
[2023-01-06] MEDS: LIPASE PROTEASE AMYLASE PO SCH ×3 (07:42→17:41)
--- NOTE | 2023-01-06 08:17 | Internal Med Progress Note ---
SUBJECTIVE Subjective Patient information: Note initiated : 01/06/23 at 8:15 am Service Date, if different from initiated Date: [] Patient: Tennille Castillo a 77 y/o F admitted on 01/03/23 for SOB/HI BG. Chief Complaint: [] Interval history: History of present illness: Ms. Castillo is a 77 year old F Presents the ED with shortness of breath for 3 weeks and cough. Per EMS her blood glucose was read as "high". Patient states she has developed cough shortness of breath and weakness which started 2 to 3 weeks ago she went to [facility] care and got doxycycline but has not improved. She has not seen her PCP because she says her PCP fired her. She has not gotten a new PCP yet. She says her cough is productive of yellow-green sputum. She denies chest pain or stomach pain. She does complain of headache and chills but no fever. Chest x-ray in ED unremarkable. Rapid flu and COVID-negative Patient has not been taking her insulin for the past couple days because she has had a poor appetite. Patient has had multiple hospitalizations for DKA usual elated to noncompliance of medications. Last admission was November Records from last admission reported that the daughter has been trying to get her into a nursing facility. Patient complains of severe weakness and not able to minimally get out of bed. She has chronic back pain which really bothers her. She has had some mild nausea but none today and no vomiting. She denies chest pain or shortness of breath. She denies diarrhea or constipation or abdominal pain. In the ED she is found to have a pH of 7.17 with a bicarb of 5. Beta hydroxybutyric acid of 8.2 with a BUN of 39 and creatinine 1.5 chloride at 93 and a sodium of 123 but that is not corrected for hyperglycemia. Her glucose was 877. Patient was given several fluid boluses in the ED as well as a regular insulin IV push and an insulin drip started. Patient denies any recent illnesses other than the acute bronchitis Patient is lethargic. 01/04 Patient weak and tired, has continued cough. Denies shortness of breath at rest. Patient on Levophed and required last night. Despite fluid boluses. Acid-base balance improving. Hyperkalemia resolved. Still acidotic. Renal function improving. Good urine output. A.m. cortisol okay. Attempt to wean down off Levophed. 01/05 Patient complains of cough and some wheezing. States he slept okay. still weak. Patient off Levophed since yesterday evening. Patient complains of chills headache some wheezing. 01/06 Patient feeling better but still weak. Continued cough but a little bit better. Acid-base balance much improved. Titrate insulin . PT OT eval. Patient likely need SNF. Review of Systems: Pertinent positive as above. Denies headache/fever/chills/vomiting/chest or abdominal pain/diarrhea. PHYSICAL EXAM General: Awake, no acute distress Eyes/N/T: EOMI, no scleral icterus, Head/Neck: neck supple, full ROM, CV: RRR, 3/6SM, Pulm: mild Rhonchi b/l improving, no wheezing, no respiratory distress Abd: soft, nontender, +BS x4 Ext: no clubbing/cyanosis/edema, nontender Neuro: Alert, no focal deficits, moves all extremities, sensations intact b/l upper/lower Psychiatric: Skin: warm/dry, normal color Constitutional Vitals: Vital Signs Temp Pulse Resp BP Pulse Ox O2 Del Method O2 Flow Rate 97.3 F 61 18 144/63 98 Room Air 0 01/06/23 08:13 01/06/23 08:13 01/06/23 08:13 01/06/23 08:13 01/06/23 08:13 01/06/23 08:13 01/06/23 08:13 Period Temp Pulse Resp BP Sys/Rosario Pulse Ox O2 Del Method O2 Flow Rate Last 24 Hr 97.3 F-98.2 F 61-80 16- 109-153/49-102 90-98 Room Air-Room Air 0-98 Intake and Output 01/05/23 01/06/23 01/06/23 19:59 03:59 11:59 Intake Total 1079 2079 Output Total 800 1999 1199 Balance 280 80 -1200 Weight 67.812 kg Intake & Output: Intake & Output 01/05/23 01/06/23 01/06/23 19:59 03:59 11:59 Intake Total 1079 2079 Output Total 800 1999 1200 Balance 280 80 -1200 Weight 67.812 kg Intake: Oral 1079 2079 Output: Urine Catheter Amount 800 Void Amount 2000 1200 Other: Meal Dinner Percent of Meal Consumed 100% Feeding Ability Independent Urine Appearance Clear Clear Clear Urine Color Yellow Pale Pale Urine Odor Normal Normal OBJ DATA Labs 01/06/23 05:25 01/06/23 05:25 Labs: Abnormal Lab Results 01/06/23 01/06/23 01/05/23 05:25 05:25 07:04 WBC RBC Hgb 10.8 L Hct 33.0 L RDW 14.6 H Plt Count Immature Gran % (Auto) Neut % (Auto) Lymph % (Auto) Lymph # (Auto) [place] # (Auto) Immature Gran # Absolute Neutrophils POC VBG pH POC VBG pCO2 at Temp POC VBG pO2 POC VBG HCO3 POC VBG Total CO2 POC Venous O2 Sat POC VBG Base Excess VBG Lactic Acid POC Sodium Sodium POC Potassium Potassium POC Chloride Chloride 111 H 113 H Carbon Dioxide 21 L POC Total CO2 Anion Gap 7.0 L POC BUN BUN Creatinine 0.5 L Glucose 133 H 132 H POC Glucose Osmolality Calcium 8.4 L 7.9 L Phosphorus 2.3 L Direct Bilirubin Alkaline Phosphatase Lactate Dehydrogenase NT-Pro-B Natriuret Pep Total Protein 4.8 L 4.4 L Albumin 2.8 L 2.6 L Globulin 2.0 L 1.8 L Lipase Beta-Hydroxybutyrate Urine Glucose (UA) Urine Ketones Urine WBC Urine Mucus 01/05/23 01/04/23 01/04/23 07:04 08:27 05:37 WBC RBC 3.44 L Hgb 9.9 L Hct 29.9 L RDW 14.6 H Plt Count 119 L Immature Gran % (Auto) Neut % (Auto) Lymph % (Auto) Lymph # (Auto) [place] # (Auto) Immature Gran # Absolute Neutrophils POC VBG pH 7.66 H* POC VBG pCO2 at Temp 12.2 L* POC VBG pO2 176 H POC VBG HCO3 13.9 L POC VBG Total CO2 14.0 L POC Venous O2 Sat 100.0 H POC VBG Base Excess -7.0 L VBG Lactic Acid POC Sodium Sodium POC Potassium Potassium POC Chloride Chloride Carbon Dioxide 18 L POC Total CO2 Anion Gap POC BUN BUN 31 H Creatinine Glucose 181 H POC Glucose Osmolality Calcium 8.0 L Phosphorus 2.3 L Direct Bilirubin Alkaline Phosphatase 118 H Lactate Dehydrogenase 247 H NT-Pro-B Natriuret Pep Total Protein 5.0 L Albumin 2.9 L Globulin 2.1 L Lipase Beta-Hydroxybutyrate 0.69 H Urine Glucose (UA) Urine Ketones Urine WBC Urine Mucus 01/04/23 01/03/23 01/03/23 05:37 23:53 19:17 WBC 16.2 H RBC Hgb Hct 33.3 L RDW Plt Count Immature Gran % (Auto) Neut % (Auto) Lymph % (Auto) Lymph # (Auto) [place] # (Auto) 1.42 H Immature Gran # Absolute Neutrophils 10.22 H POC VBG pH POC VBG pCO2 at Temp POC VBG pO2 POC VBG HCO3 POC VBG Total CO2 POC Venous O2 Sat POC VBG Base Excess VBG Lactic Acid POC Sodium Sodium POC Potassium Potassium POC Chloride Chloride Carbon Dioxide POC Total CO2 Anion Gap POC BUN BUN Creatinine Glucose POC Glucose Osmolality 334 H Calcium Phosphorus Direct Bilirubin Alkaline Phosphatase Lactate Dehydrogenase NT-Pro-B Natriuret Pep Total Protein Albumin Globulin Lipase Beta-Hydroxybutyrate Urine Glucose (UA) >=500 A Urine Ketones 20 A Urine WBC Urine Mucus Few A 01/03/23 01/03/23 01/03/23 18:20 15:52 15:30 WBC RBC Hgb Hct RDW Plt Count Immature Gran % (Auto) Neut % (Auto) Lymph % (Auto) Lymph # (Auto) [place] # (Auto) Immature Gran # Absolute Neutrophils POC VBG pH 7.17 L* POC VBG pCO2 at Temp 17.9 L* POC VBG pO2 138 H POC VBG HCO3 6.5 L* POC VBG Total CO2 7.0 L POC Venous O2 Sat 98.0 H POC VBG Base Excess -22.0 L VBG Lactic Acid 4.0 H* POC Sodium Sodium 122 L POC Potassium Potassium 6.0 H* POC Chloride Chloride 84 L Carbon Dioxide 5 L* POC Total CO2 Anion Gap 33.0 H POC BUN BUN 39 H Creatinine 1.5 H Glucose 877 H* POC Glucose Osmolality Calcium Phosphorus Direct Bilirubin Alkaline Phosphatase Lactate Dehydrogenase NT-Pro-B Natriuret Pep Total Protein Albumin Globulin Lipase Beta-Hydroxybutyrate Urine Glucose (UA) >=500 A Urine Ketones 80 A Urine WBC 7 H Urine Mucus 01/03/23 01/03/23 01/03/23 14:57 14:57 14:57 WBC RBC Hgb Hct RDW Plt Count Immature Gran % (Auto) 0.6 H Neut % (Auto) 85.8 H Lymph % (Auto) 10.7 L Lymph # (Auto) 1.10 L [place] # (Auto) Immature Gran # 0.06 H Absolute Neutrophils 8.80 H POC VBG pH POC VBG pCO2 at Temp POC VBG pO2 POC VBG HCO3 POC VBG Total CO2 POC Venous O2 Sat POC VBG Base Excess VBG Lactic Acid POC Sodium Sodium POC Potassium Potassium POC Chloride Chloride Carbon Dioxide POC Total CO2 Anion Gap POC BUN BUN Creatinine Glucose POC Glucose Osmolality Calcium Phosphorus 6.3 H* Direct Bilirubin 0.3 H Alkaline Phosphatase 150 H Lactate Dehydrogenase NT-Pro-B Natriuret Pep 1344.0 H Total Protein Albumin Globulin Lipase 80 H Beta-Hydroxybutyrate 8.25 H Urine Glucose (UA) Urine Ketones Urine WBC Urine Mucus 01/03/23 14:28 WBC RBC Hgb Hct RDW Plt Count Immature Gran % (Auto) Neut % (Auto) Lymph % (Auto) Lymph # (Auto) [place] # (Auto) Immature Gran # Absolute Neutrophils POC VBG pH POC VBG pCO2 at Temp POC VBG pO2 POC VBG HCO3 POC VBG Total CO2 POC Venous O2 Sat POC VBG Base Excess VBG Lactic Acid POC Sodium 123 L Sodium POC Potassium 5.2 H Potassium POC Chloride 93 L Chloride Carbon Dioxide POC Total CO2 10.0 L Anion Gap POC BUN 35 H BUN Creatinine Glucose POC Glucose > 700 H* Osmolality Calcium Phosphorus Direct Bilirubin Alkaline Phosphatase Lactate Dehydrogenase NT-Pro-B Natriuret Pep Total Protein Albumin Globulin Lipase Beta-Hydroxybutyrate Urine Glucose (UA) Urine Ketones Urine WBC Urine Mucus Meds: Medications Acetaminophen (Acetaminophen 325 Mg Tablet) 650 mg PO Q6HP PRN; Protocol PRN Reason: Per Pain Protocol/Fever > 101 Last Admin: 01/05/23 09:55 Dose: 650 mg Albuterol/Ipratropium (Ipratropium/Albuterol 3 Ml Ampul.Neb) 3 ml NEB Q4HP PRN PRN Reason: Shortness Of Breath Benzonatate (Benzonatate 100 Mg Capsule) 200 mg PO TIDP PRN PRN Reason: Cough Last Admin: 01/05/23 16:03 Dose: 200 mg Dextrose (Dextrose 50% 50 Ml Vial) 0 ml IV UD PRN PRN Reason: Per Sliding Scale Diagnostic Test (Pha) (Accu-Chek 1 Each Strip) 1 each FS ACHS PEG Last Admin: 01/06/23 07:38 Dose: 1 each Diphenhydramine HCl (Diphenhydramine 25 Mg Capsule) 50 mg PO QHS [facility] Last Admin: 01/05/23 20:34 Dose: 50 mg Docusate Sodium (Docusate Sodium 100 Mg Capsule) 100 mg PO BID [facility] Last Admin: 01/05/23 20:35 Dose: 100 mg Enoxaparin Sodium (Enoxaparin 40 Mg/0.4 Ml Syringe) 40 mg SQ DAILY [facility] Last Admin: 01/05/23 08:05 Dose: Not Given Gabapentin (Gabapentin 400 Mg Capsule) 400 mg PO TID [facility] Last Admin: 01/05/23 20:35 Dose: 400 mg Glucose (Dextrose 31 Gm Oral.Susp) 15 gm PO PRN PRN PRN Reason: Hypoglycemia Guaifenesin/Codeine Phosphate (Guaifenesin/Codeine 10 Ml Udc) 10 ml PO Q4HP PRN PRN Reason: Cough Last Admin: 01/04/23 16:58 Dose: 10 ml Hyoscyamine (Hyoscyamine Sulfate 0.125 Mg Tablet) 0.125 mg SL Q6HP PRN PRN Reason: muscle spasm Last Admin: 01/04/23 23:45 Dose: 0.125 mg Potassium Chloride 40 meq/ (Dextrose) 520 mls @ 130 mls/hr IV UD PRN PRN Reason: Potassium < 3 Magnesium Sulfate (Magnesium Sulfate) 2 gm in 50 mls @ 50 mls/hr IV UD PRN PRN Reason: Magnesium </= 1.6 Last Infusion: 01/04/23 08:59 Dose: Infused Insulin Glargine (Insulin Glargine, Human 1 Unit/0.01 Ml) 20 unit SQ BID [facility] Last Admin: 01/05/23 20:43 Dose: 20 units Insulin Human Lispro (Insulin Lispro 1 Unit/0.01 Ml Unit) 0 unit SQ ACHS [facility]; Protocol Last Admin: 01/06/23 07:39 Dose: Not Given Levothyroxine Sodium (Levothyroxine 125 Mcg Tablet) 125 mcg PO QAMAC [facility] Last Admin: 01/06/23 07:41 Dose: 125 mcg Ondansetron HCl (Ondansetron 4 Mg/2 Ml Vial) 4 mg IV Q4HP PRN PRN Reason: Nausea And Vomiting Lipase-Protease- Amylase [Zenpep] 40, 000-126,000-168,000 1 dose PO AC [facility] Last Admin: 01/06/23 07:42 Dose: 1 dose Polyethylene Glycol (Polyethylene Glycol 3350 17 Gm Packet) 17 gm PO DAILYP PRN PRN Reason: Constipation Potassium Chloride (Potassium Chloride 20 Meq Tablet) 40 meq PO UD PRN PRN Reason: Potssium is 3-3.5 Last Admin: 01/04/23 08:46 Dose: 40 meq Potassium Chloride (Potassium Chloride 20 Meq Tablet) 40 meq PO UD PRN PRN Reason: Potassium < 3 Propranolol HCl (Propranolol 10 Mg Tablet) 10 mg PO TID [facility] Last Admin: 01/05/23 20:35 Dose: 10 mg Senna (Sennosides 1 Tablet) 2 tab PO DAILYP PRN PRN Reason: Constipation Sodium Chloride (0.9 % Sodium Chloride 10 Ml Syringe) 10 ml IV Q8 [facility] Last Admin: 01/06/23 05:07 Dose: 10 ml Throat Lozenges (Benzocaine/Menthol 1 Lozenge) 1 lozenge PO PRN PRN PRN Reason: Sore Throat Last Admin: 01/04/23 00:08 Dose: 1 lozenge Tramadol HCl (Tramadol 50 Mg Tablet) 50 mg PO Q6HP PRN PRN Reason: pain Last Admin: 01/06/23 04:20 Dose: 50 mg Trazodone HCl (Trazodone Hcl 100 Mg Tablet) 100 mg PO HSP PRN PRN Reason: insomnia Last Admin: 01/05/23 20:35 Dose: 100 mg A/P Narrative A/P Narrative: A: #DKA/HHS, mod-severe: improved -had been off insulin past several days b/c was not feeling well #Hypovolemic Shock: resolved -BC neg, UA/cxr neg #DM2 Poorly controlled insulin-dependent w/neuropathy: -A1c 11.0 in september #Hypotension, hypovolemic: improved #Encephalopathy: 2/2 above, #Metabolic acidosis, severe, and Lactic Acidosis(improved): improving #SUDARSHAN w/severe volume depletion: 2/2 above, improving #Acute bronchitis: -covid/flu/rsv/rvp2 neg #Hyperkalemia/Hyperphos: improved #Generalized weakness/deconditioning: #h/o CAD: #Anemia, acute on chronic / Thrombocytopenia, acute on chronic: stable #Hypothyroidism: cont levothyroxine #Chronic pancreatitis: #Hypertriglyceridemia: #chronically elevated LFT's #Essential tremor: #chr back pain: #Long-term prognosis quite guarded with multiple admissions and poor compliance -Family has been trying to get her into a nursing facility Plan: -cont basal SQ insulin and SSI. titrate as needed -Monitor electrolytes closely Replace as needed -Monitor renal function, avoid nephrotoxic meds -uop, i/o -duonebs, IS/Acapella, RT -antitussin -monitor for O2 need -Continue home duloxetine/gabapentin -Continue her home pancreatic enzyme supplements, levothyroxine, fenofibrate -cont home BB -qhs snack when back on home regimen -PT/OT -CM for likely SNF placement -DVT prophylaxis: lovenox CODE STATUS: DNR Time Spent With Patient Time: Total time spent is greater than 50% in coordination of care (as documented) at patient's floor/unit and/or counseling patient:
[2023-01-06] MEDS: DOCUSATE SODIUM 100 MG CAPSULE PO SCH ×2 (08:43→20:50)
[2023-01-06] MEDS: GABAPENTIN 400 MG CAPSULE PO SCH ×3 (08:43→20:51)
[2023-01-06] MEDS: guaiFENesin/CODEINE 10 ML UDC PO PRN (08:44)
[2023-01-06] MEDS: BENZONATATE 100 MG CAPSULE PO PRN (08:44)
[2023-01-06] MEDS: ENOXAPARIN 40 MG/0.4 ML SYRINGE SQ SCH (08:44)
[2023-01-06] MEDS: PROPRANOLOL 10 MG TABLET PO SCH ×3 (08:44→20:51)
[2023-01-06] MEDS: INSULIN GLARGINE, HUMAN 1 UNIT/0.01 ML SQ SCH ×2 (08:45→20:56)
[2023-01-06] MEDS: ACETAMINOPHEN 325 MG TABLET PO PRN (14:51)
[2023-01-06] MEDS: diphenhydrAMINE 25 MG CAPSULE PO SCH (20:51)
[2023-01-07] MEDS: traZODone HCL 100 MG TABLET PO PRN (00:17)
[2023-01-07] MEDS: traMADol 50 MG TABLET PO PRN (00:18)
[2023-01-07] MEDS: 0.9 % SODIUM CHLORIDE 10 ML SYRINGE IV SCH ×2 (05:45→13:53)
[2023-01-07 07:06] LABS: Estimated Average Glucose(eAG) 243 mg/dL; Hemoglobin A1C 10.1 % Hgb (4.0-6.0)
[2023-01-07] MEDS: INSULIN LISPRO 1 UNIT/0.01 ML UNIT SQ SCH ×3 (07:13→16:52)
[2023-01-07] MEDS: LEVOTHYROXINE 125 MCG TABLET PO SCH (07:36)
[2023-01-07] MEDS: LIPASE PROTEASE AMYLASE PO SCH ×2 (07:37→11:51)
[2023-01-07] MEDS: DOCUSATE SODIUM 100 MG CAPSULE PO SCH (09:16)
[2023-01-07] MEDS: PROPRANOLOL 10 MG TABLET PO SCH ×2 (09:17→14:58)
[2023-01-07] MEDS: ENOXAPARIN 40 MG/0.4 ML SYRINGE SQ SCH (09:18)
[2023-01-07] MEDS: GABAPENTIN 400 MG CAPSULE PO SCH ×2 (09:19→14:59)
[2023-01-07] MEDS: BENZOCAINE/MENTHOL 1 LOZENGE PO PRN (09:20)
[2023-01-07] MEDS: INSULIN GLARGINE, HUMAN 1 UNIT/0.01 ML SQ SCH (09:31)
[2023-01-07] MEDS: ACETAMINOPHEN 325 MG TABLET PO PRN (09:41)
--- NOTE | 2023-01-07 12:59 | Discharge Summary ---
Discharge Provider Provider IMPORTANT FOLLOW-UP INFORMATION FOR PCP: Patient information: Note initiated : 01/07/23 at 12:57 pm Service Date, if different from initiated Date: [] Patient: Tennille Castillo 77 y/o F admitted on 01/03/23 for SOB/HI BG. Chief Complaint: [] Date of admission: 01/03/23 19:10 Discharge date: 01/07/23 Primary care physician: Eugenio March MD Attending physician on admission: Jef Borges Consults: 01/03/23 Consult to Physician [CONS] Stat Comment: Consulting Provider: Jef Borges Reason For Exam: Physician to Consult Attending physician on discharge: [place] Pui COURSE Hospital Course Hospital course: Ms. Castillo is a 77 year old F Presents the ED with shortness of breath for 3 weeks and cough. Per EMS her blood glucose was read as "high". Patient states she has developed cough shortness of breath and weakness which started 2 to 3 weeks ago [facility] and got doxy[facility]ine but has not improved. She has not seen her PCP because she says her PCP fired her. She has not gotten a new PCP yet. She says her cough is productive of yellow-green sputum. She denies chest pain or stomach pain. She does complain of headache and chills but no fever. Chest x-ray in ED unremarkable. Rapid flu and COVID-negative Patient has not been taking her insulin for the past couple days because she has had a poor appetite. Patient has had multiple hospitalizations for DKA usual elated to noncompliance of medications. Last admission was November Records from last admission reported that the daughter has been trying to get her into a nursing facility. Patient complains of severe weakness and not able to minimally get out of bed. She has chronic back pain which really bothers her. She has had some mild nausea but none today and no vomiting. She denies chest pain or shortness of breath. She denies diarrhea or constipation or abdominal pain. In the ED she is found to have a pH of 7.17 with a bicarb of 5. Beta hydroxybutyric acid of 8.2 with a BUN of 39 and creatinine 1.5 chloride at 93 and a sodium of 123 but that is not corrected for hyperglycemia. Her glucose was 877. Patient was given several fluid boluses in the ED as well as a regular insulin IV push and an insulin drip started. Patient denies any recent illnesses other than the acute bronchitis Patient is lethargic. 01/04 Patient weak and tired, has continued cough. Denies shortness of breath at rest. Patient on Levophed and required last night. Despite fluid boluses. Acid-base balance improving. Hyperkalemia resolved. Still acidotic. Renal function improving. Good urine output. A.m. cortisol okay. Attempt to wean down off Levophed. 01/05 Patient complains of cough and some wheezing. States he slept okay. still weak. Patient off Levophed since yesterday evening. Patient complains of chills headache some wheezing. 01/06 Patient feeling better but still weak. Continued cough but a little bit better. Acid-base balance much improved. Titrate insulin . PT OT eval. Patient likely need SNF. 01/07: Patient did well with physical therapy for now recommend patient can go home with home health physical therapy. Patient's which clinical stability and blood sugar are well controlled. Decision made to discharge patient home with home health physical therapy. 1 to 2 weeks PCP follow-up appointment made for the patient. All questions answered prior to patient being physically discharged. Discharge diagnosis: DKA Time Spent with Patient Time attestation: Total time spent providing and/or coordinating discharge services: Time spent: Less than 30 minutes EXAM Constitutional Vitals: Temp Pulse Resp BP Pulse Ox O2 Del Method O2 Flow Rate 37.0 C 66 12 116/52 98 Room Air 0 01/07/23 11:57 01/07/23 11:57 01/07/23 07:45 01/07/23 11:57 01/07/23 11:57 01/07/23 11:57 01/06/23 15:20 General appearance: cooperative and no acute distress Head Head exam: Present atraumatic and normocephalic Eye Eye exam: Present EOMI and PERRL ENT ENT exam: Present mucous membranes moist, normal exam and normal external ear exam Neck Neck exam: Present normal inspection; Absent lymphadenopathy, tenderness or thyromegaly Respiratory Respiratory exam: Absent accessory muscle use, respiratory distress or wheezes Cardiovascular Cardiovascular exam: Present normal rate and rhythm; Absent JVD GI/Abdominal GI/Abdominal exam: Present normal bowel sounds and soft; Absent organomegaly or tenderness Extremities Exam Extremities exam: Present full ROM, normal capillary refill and normal inspection; Absent tenderness Neurological Exam Neurological exam: Present alert, CN II-XII intact and oriented X3; Absent motor sensory deficit Psychiatric Psychiatric exam: Present normal affect and normal mood; Absent anxious or depressed Skin Skin exam: Present dry and intact Discharge Data Data Completed and Pending Labs on day of discharge: Labs from last 24 hours 01/07/23 05:32 Hemoglobin A1c 10.1 H Estim Average Glucose 243 Preliminary micro results at discharge 01/03/23 14:52 Blood Culture - Preliminary Blood 01/03/23 14:52 Blood Culture - Preliminary Blood Discharge Plan Patient/Caregiver Discharge Instructions Activity: increase activity as tolerated Diet: Consistent Carbohydrate Prescriptions: Continued multivit [id number] 186 [Hair, Skin and Nails Advanced] 1 tab PO DAILY albuterol sulfate [ProAir HFA] 90 mcg/actuation HFA aerosol inhaler 2 puff inhalation .q4-6h PRN (Reason: cough, shortness of breath, wheezing) Qty: 8.5 0RF Rx Instructions: administer with spacer acyclovir 400 mg tablet 1 tab PO BID cholecalciferol (vitamin D3) [Vitamin D3] 50 mcg (2,000 unit) Capsule 50 mcg PO DAILY insulin aspart U-100 [Novolog FlexPen U-100 Insulin] 100 unit/mL (3 mL) insulin pen See Protocol subcut ACHS Protocol: Insulin Sliding Scale, High Condition: HUMALOG/NOVALOG SC SLIDING Dose/Route: SCALE Condition: FSBS < 70 Dose/Route: Give 4 Oz juice, or 15gm oral Instruction: Glucose, or 25ml D50W IV if Dose/Route: unable to take PO. Recheck in Instruction: 15 min and repeat if FSBS < 70 Condition: FSBS 71-140 Dose/Route: NO COVERAGE Condition: FSBS 141-170 Dose/Route: 3 UNITS Condition: FSBS 171-200 Dose/Route: 6 UNITS Condition: FSBS 201-250 Dose/Route: 9 UNITS Condition: FSBS 251-300 Dose/Route: 12 UNITS Condition: FSBS 301-350 Dose/Route: 15 UNITS Condition: FSBS 351-400 Dose/Route: 18 UNITS Condition: FSBS > 400 Dose/Route: 20 UNITS; REPEAT Q2H X2 Instruction: CONTINUE FOLLOWING SLIDING Condition: SCALE; IF STILL > 400; CALL Dose/Route: PHYSICIAN levothyroxine 125 mcg tablet 1 tab PO QAM (DME) True Metrix Glucose Test Strip Strip 1 strip MISCELLANEOUS QID insulin degludec [Tresiba U-100 Insulin] 100 unit/mL solution 20 unit subcut BID Qty: 10 0RF hyoscyamine sulfate 0.125 mg tablet,disintegrating 0.125 mg sublingual Q6HP PRN (Reason: muscle spasm) diphenhydramine HCl [Sleep Aid (diphenhydramine)] 50 mg Capsule 50 mg PO QHS propranolol 10 mg tablet 10 mg PO TID Zenpep 40,000-126,000- 168,000 unit capsule,delayed release(DR/EC) 1 cap PO TID tramadol 50 mg Tablet 50 mg PO Q6HP PRN (Reason: pain) Qty: 7 0RF trazodone 100 mg Tablet 100 mg PO HSP PRN (Reason: insomnia) Qty: 7 0RF gabapentin 400 mg capsule 400 mg PO QID Follow Up Plan Follow up with: Eugenio March MD [Primary Care Provider] - Patient Disposition: Home Health Service Prognosis: Serious Rehab Potential: Good I certify that the patient requires SNF services: No Overall status at discharge: patient is back to baseline Discharge Orders: Discharge Order (Routine); Ordered 01/07/23 Ordered By: Devon Mcdaniel
[2023-01-07] MEDS: HYOSCYAMINE SULFATE 0.125 MG TABLET SL PRN (13:49)
== END 2023-01-07 17:26 | disposition home health service (06) | DRG 638 ==
LOC: ED 14:13 → ICU 19:10 → MEDSUR 01-05 18:09
PROVIDERS: ADMIT Internal Medicine; ATTEND Internal Medicine

== ENCOUNTER 2023-02-25 15:12 | Inpatient (IN) ==
[2023-02-25] MEDS ORDERED: 0.9 % SODIUM CHLORIDE 2,000 ML IV ONE (15:27)
--- NOTE | 2023-02-25 15:50 | Emergency Department Note ---
Altered Mental Status HPI General Chief Complaint: Blood Sugar Problem Stated Complaint: blood sugar over 550. Time Seen by Provider: 02/25/23 15:27 Source: patient and EMS Mode of arrival: EMS Limitations: no limitations History of Present Illness HPI Narrative: Narrative: This is a 77-year-old female who presents to the emergency department via EMS for altered mental status. EMS noted that her blood sugar was greater than 500 when they did her fingerstick. Patient lives alone and has caregivers come in twice a week. She cannot recall when her caregiver was in last. She states that she feels weak and has no appetite. She cannot recall the last time she took her insulin. She states that she aches all over. She denies any chest pain or shortness of breath. She denies nausea or vomiting. She denies abdominal pain. Related Data Home Medications Medication Instructions Recorded Confirmed acyclovir 400 mg tablet 1 tab PO BID 09/21/21 01/17/23 insulin aspart U-100 100 unit/mL See Protocol subcut ACHS 04/23/22 01/17/23 (3 mL) subcutaneous pen (Novolog FlexPen U-100 Insulin aspart) blood sugar diagnostic (True 08/21/22 01/17/23 Metrix Glucose Test Strip) levothyroxine 125 mcg tablet 1 tab PO QAM 08/21/22 01/17/23 hyoscyamine sulfate 0.125 mg 0.125 mg sublingual Q6HP PRN 10/15/22 01/17/23 disintegrating tablet muscle spasm diphenhydramine HCl 50 mg capsule 50 mg PO QHS 11/17/22 01/17/23 (Sleep Aid (diphenhydramine)) [id number] 1 cap PO TID 11/17/22 01/17/23 40,000-126,000-168,000 unit capsule, delay rel (Zenpep) propranolol 10 mg tablet 10 mg PO TID 11/17/22 01/17/23 gabapentin 400 mg capsule 400 mg PO QIDP PRN Pain 12/25/22 01/17/23 betamethasone valerate 0.1 % 1 applic topical BID PRN 01/17/23 01/17/23 topical ointment bisacodyl 5 mg tablet,delayed 15 mg PO ONCE PRN 01/17/23 01/17/23 release cholecalciferol (vitamin D3) 50 100 mcg PO DAILY 01/17/23 01/17/23 mcg (2,000 unit) capsule (Vitamin D3) hylands leg cramps, [id number] PO PRN 01/17/23 ibuprofen 200 mg tablet 200 mg PO Q6H PRN 01/17/23 01/17/23 ketoconazole 2 % shampoo 1 applic topical 3XW 01/17/23 01/17/23 melatonin 1 mg tablet 4 mg PO HS PRN 01/17/23 01/17/23 trazodone 100 mg tablet 100 mg PO HSP insomnia 01/17/23 zinc 50mg, magnesium 500mg PO 01/17/23 Previous Rx's Medication Instructions Recorded aspirin 81 mg tablet,delayed 81 mg PO QDAY #90 tabs 01/17/23 release atorvastatin 40 mg tablet (Lipitor) 40 mg PO QDAY #60 tabs 01/17/23 tramadol 50 mg tablet 50 mg PO QDAY PRN pain #20 tabs 01/18/23 albuterol sulfate 90 mcg/actuation 2 puff inhalation .q4-6h PRN 01/22/23 aerosol inhaler (ProAir HFA) cough, shortness of breath, wheezing #8.5 grams insulin degludec 100 unit/mL 23 unit (0.23 mL) subcut BID 30 02/14/23 subcutaneous solution (Tresiba days #13.8 mL U-100 Insulin) tramadol 50 mg tablet 50 mg PO Q8H PRN pain #20 tabs 02/15/23 oxycodone 5 mg tablet 5 mg PO BID PRN breakthrough pain 02/19/23 #20 tabs Allergies Allergy/AdvReac Type Severity Reaction Status Date / Time cephalexin [From Keflex] Allergy Intermediate Swelling Verified 01/17/23 12:53 lidocaine Allergy Intermediate Blister Verified 01/17/23 12:53 fenugreek Allergy Mild Itching Verified 01/17/23 12:53 Penicillins Allergy Mild Rash Verified 01/17/23 12:53 Anistreplase [From Eminase] Allergy Unknown UNKNOWN Verified 01/17/23 12:53 codeine AdvReac Mild Itching Verified 01/17/23 12:53 Erythromycin Base AdvReac Mild Itching Verified 01/17/23 12:53 Nortriptyline AdvReac Mild Nausea Verified 05/04/23 12:53 promethazine AdvReac Mild Fainting Verified 01/17/23 12:53 trulicity AdvReac Intermediate Other Uncoded 01/17/23 12:53 Review of Systems ROS ROS Narrative: Narrative: All systems ED: reviewed and negative except as stated. PFSH Narrative Patient History Narrative: Narrative: Medical/Surgical/Family History All Active Problems (Updated 02/25/23 @ 19:54 by Machelle Lucia PA-C) Acute UTI (Acute) Confused (Acute) Anterior epistaxis (Chronic) Anemia (Chronic) Bimalleolar ankle fracture (Chronic) Elevated liver enzymes (Chronic) Chronic bronchitis with acute exacerbation (Chronic) Hypoxia (Chronic) Dehydration (Chronic) Epistaxis (Chronic) 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) Age-related osteoporosis with current pathological fracture, vertebra(e), initial encounter for fracture (Chronic) Pain in thoracic spine (Chronic) Low back pain (Chronic) Rectal pain (Chronic) Osteoporosis (Chronic) Hypertension (Chronic) Anxiety (Chronic) Depression (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) Chronic bronchitis (Chronic) Hypothyroidism (Chronic) History of surgery (Chronic) Dehiscence of closure of skin (Chronic) Sacrococcygeal pain (Chronic) Levator syndrome (Chronic) Insomnia (Chronic) Radiculopathy, lumbosacral region (Chronic) Radiculopathy, sacral and sacrococcygeal region (Chronic) DKA (diabetic ketoacidosis) (Chronic) Bronchitis (Chronic) Conjunctivitis (Chronic) Candidiasis of mouth (Chronic) Essential tremor (Chronic) Chronic pain (Chronic) Neuropathy (Chronic) Constipation (Chronic) Cirrhosis of liver (Chronic) Liver mass (Chronic) Chronic pancreatitis (Chronic) Abdominal pain (Chronic) Compression fracture of lumbosacral spine (Chronic) Fracture of lumbar spine (Chronic) Multiple environmental allergies (Chronic) Hard of hearing (Chronic) Stress (Chronic) Opioid dependence (Chronic) Diabetic retinopathy (Chronic) DDD (degenerative disc disease), cervical (Chronic) Fibromyalgia (Chronic) Glaucoma (Chronic) Hepatitis A (Chronic) Macular degeneration (Chronic) Pancreatitis (Chronic) Arthralgia (Chronic) Sleep disturbance (Chronic) Trigger finger (Chronic) Neurofibromatosis 2 (Chronic) Tremor (Chronic) Snoring (Chronic) Hypersomnia (Chronic) REM sleep behavior disorder (Chronic) Sleepwalking (Chronic) DKA (diabetic ketoacidosis) (Chronic) Vulvovaginitis due to yeast (Chronic) Obstructive sleep apnea (Chronic) Generalized weakness (Chronic) Acute dehydration (Chronic) Diabetic ketosis (Chronic) Acute dyspnea (Chronic) Hypomagnesemia (Chronic) Diabetic keto-acidosis (Chronic) Pseudohyponatremia (Chronic) DKA (diabetic ketoacidosis) (Chronic) Blood in urine (Chronic) Hypoglycemia (Chronic) DKA (diabetic ketoacidosis) (Chronic) Acute hyponatremia (Chronic) Acute hyperkalemia (Chronic) Acidosis, lactic (Chronic) Metabolic acidosis (Chronic) Compression fracture of body of thoracic vertebra (Chronic) Pain in rib (Chronic) 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) Chronic pain syndrome (Chronic) DKA, type 2 (Chronic) Hyperkalemia (Chronic) Mixed dyslipidemia (Chronic) Essential hypertension (Chronic) DKA, type 2 (Chronic) Clinical sepsis (Chronic) Septic shock (Chronic) Transaminitis (Chronic) Left renal mass (Chronic) Hypokalemia (Chronic) Hypoxemia (Chronic) Acute viral syndrome (Chronic) Schwannoma (Chronic) DKA (diabetic ketoacidosis) (Acute) Acidosis, lactic (Acute) Anemia, normocytic normochromic (Acute) Constipation (Acute) Abdominal pain, LLQ (Acute) Pancreatic insufficiency (Acute) Uncontrolled type 2 diabetes with neuropathy (Acute) CAD (coronary artery disease) (Acute) Medical History Abdominal pain Acute exacerbation of chronic obstructive airways disease Age-related osteoporosis with current pathological fracture, vertebra(e), initial encounter for fracture Anemia Anterior epistaxis Anxiety Arthralgia Bilateral primary osteoarthritis of hip Bimalleolar ankle fracture Blood in urine Bronchitis CAD (coronary artery disease) Candidiasis of mouth Chronic bronchitis with acute exacerbation Chronic pain Chronic pancreatitis Cirrhosis of liver Compression fracture of lumbosacral spine Conjunctivitis Constipation DDD (degenerative disc disease), cervical Dehiscence of closure of skin Dehydration Depression Diabetic retinopathy DKA (diabetic ketoacidosis) Elevated liver enzymes Epistaxis Essential tremor Fibromyalgia Fracture of lumbar spine Glaucoma Hard of hearing Hepatitis A Hyperglycemia due to type 2 diabetes mellitus Hypersomnia Hypertension Hypothyroidism Hypoxia Insomnia Levator syndrome Lipomatosis Liver mass Low back pain Macular degeneration Multiple environmental allergies Neurofibromatosis 2 Neuropathy Obstructive sleep apnea Did not tolerate CPAP Opioid dependence Osteoporosis Pain in thoracic spine Pancreatic insufficiency Pancreatitis Radiculopathy, lumbosacral region Radiculopathy, sacral and sacrococcygeal region Rectal pain REM sleep behavior disorder Sacrococcygeal pain Schwannoma Sleep disturbance Sleepwalking Snoring Stress Tremor Trigger finger Uncontrolled type 2 diabetes with neuropathy Surgical History History of appendectomy (~1969) History of arthroplasty of right ankle (~2017) History of cataract surgery (~2003) History of cholecystectomy History of colonoscopy (~06/26/18) History of decompression of median nerve (~2003) History of dilation and curettage History of eye surgery (~2005) Glaucoma History of hand surgery (~2003) Release of trigger finger, right History of left breast biopsy (~2005) History of oophorectomy History of surgery Vertebroplasty T12 w/sed 09/28/19 History of surgery retinopathy laser Stereotactic destruction of lesion using gamma radiation-2004 History of surgery on wrist History of tonsillectomy and adenoidectomy (~1969) Family History Mother Heart disease Fibromyalgia Father Malignant melanoma Malignant tumor of prostate Leukemia Social History Smoking Status: Never smoker Alcohol Intake Frequency: does not drink Substance Use: does not use Exam Narrative Narrative: Narrative: General Limitations: no limitations General appearance: Present alert, anxious, appears intoxicated, in no apparent distress and obese Head Head: Present atraumatic and normocephalic Eye Eye: Present normal appearance; Absent scleral icterus Chest Chest: Present normal inspection and symmetric chest wall rise Respiratory Respiratory: Present normal lung sounds bilaterally; Absent respiratory distress Cardiovascular Cardiovascular: Present regular rate, normal rhythm and normal heart sounds Adbominal Abdominal: Present soft; Absent distention, tenderness, guarding, rebound or rigidity Extremities Extremities: Present full ROM and other (pt has multiple bandages all over her body: back, legs, arms) Neurological Neurological: Present alert, oriented X3 and normal gait Psychiatric Psychiatric: Present depressed, anxious and pleasant Course Vital Signs Vital signs: Vital Signs Oxygen Delivery Method Room Air 02/25/23 15:13 Pulse Rate 91 H 02/25/23 19:16 Respiratory Rate 18 02/25/23 19:16 Blood Pressure 137/47 02/25/23 19:16 Oxygen Delivery Method Room Air 02/25/23 15:13 [facility] MDM Narrative Medical decision making narrative: Narrative: This is a 77-year-old female brought to the emergency department via EMS after being found by her caregiver with altered mental status. IV access was established for administration of fluids and medications. Upon arrival to the emergency department it was noted that her blood sugar level was greater than 700 via fingerstick her sodium was 124 potassium 5.2 chloride was 84 BUN was 40 and creatinine was 1.3. Her beta hydroxybutyrate was 8.23 "Pro-Calc was 0.12 and her VBG showed that her pH was 7.19 with a lactate of 3.4. Most likely due to dehydration. Patient was not running a fever upon arrival to the emergency department. She was immediately given 2 L of fluid once the access was established. She was then immediately started on an insulin drip while in the emergency department. I spoke with Dr. Borges about admission. Patient would need to be admitted to the ICU secondary to her having the insulin drip. He did agree to the admission and came down and evaluated the patient. And did state that she was actually starting to feel better. And she did seem to be more coherent as to what was going on. Repeat fingersticks showed that her glucose level was slowly coming down. At 1844 it was 567 and when repeated at 1940 it was known to be 478. Patient had also been given a dose of ceftriaxone while in the emergency department. Considering that her urine did show leukocytes and white blood cells. At the time of admitting this patient they were stable for this particular service/floor this Dr. Borges have excepted the patient to his service based on review of the medical work-up vitals history and physical he feels comfortable that with this patient on his service occasionally, patient's clinical status may worsen in the emergency department or on the floor from the pathology presenting requiring further work-up or a higher level of care. Sepsis Sepsis Identified: No Differential Diagnosis Differential Diagnosis: DKA, HHS, hyperglycemia, UTI, sepsis Medical Records Medical records reviewed: Yes I reviewed the patient's medical records. Medical records narrative: I noted multiple visits and admissions to the the ER in hospital secondary to DKA. Lab Data Lab results reviewed: Yes I reviewed the patient's lab results. 02/25/23 15:54 02/25/23 15:54 Labs: Lab Results 02/25/23 02/25/2302/25/23 Range/Units 15:54 15:54 15:54 WBC 10.0 (4.5-11.0) K/mcL RBC 4.02 (3.59-5.38) M/mcL Hgb 11.8 (11.2-15.7) g/dL Hct 38.1 (34.1-44.9) % POC Hct (36-48) MCV 94.8 (80.0-100.0) fL MCH 29.4 (26.0-34.0) pg MCHC 31.0 (31.0-36.0) g/dL RDW 15.4 H (11.5-14.5) % Plt Count 303 (140-440) K/mcL MPV 10.3 (8.8-12.5) fL Immature Gran % (Auto) 0.5 (0.0-0.5) % Neut % (Auto) 79.8 H (38.0-78.0) % Lymph % (Auto) 16.1 (15.5-49.0) % Brantley % (Auto) 3.2 (1.0-12.0) % Eos % (Auto) 0.1 (0.0-7.0) % Baso % (Auto) 0.3 (0.0-2.0) % Lymph # (Auto) 1.61 (1.50-4.80) K/mcL Brantley # (Auto) 0.32 (0.10-0.90) K/mcL Eos # (Auto) 0.01 (0.00-0.70) K/mcL Baso # (Auto) 0.03 (0.00-0.30) K/mcL Immature Gran # 0.05 (0.00-0.05) K/mcl Absolute Neutrophils 7.97 (1.80-8.00) K/mcL POC VBG pH (7.32-7.42) POC VBG pCO2 at Temp (41-51) POC VBG pO2 (25-40) POC VBG HCO3 (24-28) POC VBG Total CO2 (25-29) POC Venous O2 Sat (40-70) POC VBG Base Excess (-2-2) VBG Lactic Acid (0.5-2) POC Sodium (133-145) Sodium (133-145) mmol/L POC Potassium (3.3-5.1) Potassium (3.3-5.1) mmol/L POC Chloride (96-108) Chloride (96-108) mmol/L Carbon Dioxide (22-30) mmol/L POC Total CO2 (22-30) Anion Gap (8.0-16.0) POC Anion Gap (8.0-16.0) POC BUN (6-20) BUN (8-23) mg/dL Creatinine (0.6-1.1) mg/dL POC Creatinine (0.6-1.2) GFR Calculation Glucose (70-105) mg/dL POC Glucose (70-105) Osmolality (280-300) mOSM/kg Uric Acid (2.5-8.0) mg/dL Calcium (8.6-10.4) mg/dL POC WB Ioniz Calcium (1.16-1.32) Phosphorus (2.5-4.5) mg/dL Magnesium (1.6-2.5) mg/dL Total Bilirubin 0.7 (0.1-1.0) mg/dL Direct Bilirubin 0.3 H (<0.3) mg/dL GGT (5-36) U/L AST 24 (<32) U/L ALT 23 (<40) U/L Alkaline Phosphatase 276 H (39-117) U/L Lactate Dehydrogenase (135-225) U/L Total Protein 7.2 (5.9-8.4) gm/dL Albumin 3.9 (3.2-5.2) gm/dL Globulin 3.3 (2.2-3.7) gm/dL Albumin/Globulin Ratio (1.0-2.3) Triglycerides (<150) mg/dL Beta-Hydroxybutyrate 8.23 H (<0.27) mmol/L Procalcitonin 0.12 H (<0.10) ng/mL Urine Color Urine Appearance (Clear) Urine pH (5.0-9.0) Ur Specific Mulberry (1.000-1.035) Urine Protein (Negative) mg/dL Urine Glucose (UA) (Negative) mg/dL Urine Ketones (Negative) mg/dL Urine Occult Blood (Negative) mg/dL Urine Nitrate (Negative) Urine Bilirubin (Negative) mg/dL Urine Urobilinogen mg/dL Ur Leukocyte Esterase (Negative) /uL Urine RBC (0-3) /hpf Urine WBC (0-4) /hpf Ur Squamous Epith Cells (0-4) /hpf Urine Bacteria (0) /hpf Urine Mucus (None) /hpf Ur Culture Indicated? 02/25/23 02/25/23 02/25/23 Range/Units 15:54 15:54 15:55 WBC (4.5-11.0) K/mcL RBC (3.59-5.38) M/mcL Hgb (11.2-15.7) g/dL Hct (34.1-44.9) % POC Hct (36-48) MCV (80.0-100.0) fL MCH (26.0-34.0) pg MCHC (31.0-36.0) g/dL RDW (11.5-14.5) % Plt Count (140-440) K/mcL MPV (8.8-12.5) fL Immature Gran % (Auto) (0.0-0.5) % Neut % (Auto) (38.0-78.0) % Lymph % (Auto) (15.5-49.0) % Brantley % (Auto) (1.0-12.0) % Eos % (Auto) (0.0-7.0) % Baso % (Auto) (0.0-2.0) % Lymph # (Auto) (1.50-4.80) K/mcL Brantley # (Auto) (0.10-0.90) K/mcL Eos # (Auto) (0.00-0.70) K/mcL Baso # (Auto) (0.00-0.30) K/mcL Immature Gran # (0.00-0.05) K/mcl Absolute Neutrophils (1.80-8.00) K/mcL POC VBG pH 7.19 L* (7.32-7.42) POC VBG pCO2 at Temp 21.7 L (41-51) POC VBG pO2 47 H (25-40) POC VBG HCO3 8.4 L* (24-28) POC VBG Total CO2 9.0 L (25-29) POC Venous O2 Sat 74.0 H (40-70) POC VBG Base Excess -20.0 L (-2-2) VBG Lactic Acid 3.4 H (0.5-2) POC Sodium (133-145) Sodium 124 L (133-145) mmol/L POC Potassium (3.3-5.1) Potassium 5.2 H (3.3-5.1) mmol/L POC Chloride (96-108) Chloride 84 L (96-108) mmol/L Carbon Dioxide 5 L* (22-30) mmol/L POC Total CO2 (22-30) Anion Gap 35.0 H (8.0-16.0) POC Anion Gap (8.0-16.0) POC BUN (6-20) BUN 40 H (8-23) mg/dL Creatinine 1.3 H (0.6-1.1) mg/dL POC Creatinine (0.6-1.2) GFR Calculation 39 Glucose 788 H* (70-105) mg/dL POC Glucose (70-105) Osmolality 330 H (280-300) mOSM/kg Uric Acid 10.4 H (2.5-8.0) mg/dL Calcium 8.7 (8.6-10.4) mg/dL POC WB Ioniz Calcium (1.16-1.32) Phosphorus 4.9 H (2.5-4.5) mg/dL Magnesium 2.0 (1.6-2.5) mg/dL Total Bilirubin 0.6 (0.1-1.0) mg/dL Direct Bilirubin 0.3 H (<0.3) mg/dL GGT 61 H (5-36) U/L AST 25 (<32) U/L ALT 25 (<40) U/L Alkaline Phosphatase 266 H (39-117) U/L Lactate Dehydrogenase 222 (135-225) U/L Total Protein 6.9 (5.9-8.4) gm/dL Albumin 4.0 (3.2-5.2) gm/dL Globulin 2.9 (2.2-3.7) gm/dL Albumin/Globulin Ratio 1.4 (1.0-2.3) Triglycerides 278 H (<150) mg/dL Beta-Hydroxybutyrate (<0.27) mmol/L Procalcitonin (<0.10) ng/mL Urine Color Urine Appearance (Clear) Urine pH (5.0-9.0) Ur Specific Mulberry (1.000-1.035) Urine Protein (Negative) mg/dL Urine Glucose (UA) (Negative) mg/dL Urine Ketones (Negative) mg/dL Urine Occult Blood (Negative) mg/dL Urine Nitrate (Negative) Urine Bilirubin (Negative) mg/dL Urine Urobilinogen mg/dL Ur Leukocyte Esterase (Negative) /uL Urine RBC (0-3) /hpf Urine WBC (0-4) /hpf Ur Squamous Epith Cells (0-4) /hpf Urine Bacteria (0) /hpf Urine Mucus (None) /hpf Ur Culture Indicated? 02/25/23 02/25/23 Range/Units 15:59 16:06 WBC (4.5-11.0) K/mcL RBC (3.59-5.38) M/mcL Hgb (11.2-15.7) g/dL Hct (34.1-44.9) % POC Hct 40.0 (36-48) MCV (80.0-100.0) fL MCH (26.0-34.0) pg MCHC (31.0-36.0) g/dL RDW (11.5-14.5) % Plt Count (140-440) K/mcL MPV (8.8-12.5) fL Immature Gran % (Auto) (0.0-0.5) % Neut % (Auto) (38.0-78.0) % Lymph % (Auto) (15.5-49.0) % Brantley % (Auto) (1.0-12.0) % Eos % (Auto) (0.0-7.0) % Baso % (Auto) (0.0-2.0) % Lymph # (Auto) (1.50-4.80) K/mcL Brantley # (Auto) (0.10-0.90) K/mcL Eos # (Auto) (0.00-0.70) K/mcL Baso # (Auto) (0.00-0.30) K/mcL Immature Gran # (0.00-0.05) K/mcl Absolute Neutrophils (1.80-8.00) K/mcL POC VBG pH (7.32-7.42) POC VBG pCO2 at Temp (41-51) POC VBG pO2 (25-40) POC VBG HCO3 (24-28) POC VBG Total CO2 (25-29) POC Venous O2 Sat (40-70) POC VBG Base Excess (-2-2) VBG Lactic Acid (0.5-2) POC Sodium 124 L (133-145) Sodium (133-145) mmol/L POC Potassium 5.2 H (3.3-5.1) Potassium (3.3-5.1) mmol/L POC Chloride 96 (96-108) Chloride (96-108) mmol/L Carbon Dioxide (22-30) mmol/L POC Total CO2 9.0 L* (22-30) Anion Gap (8.0-16.0) POC Anion Gap 25.0 H (8.0-16.0) POC BUN 38 H (6-20) BUN (8-23) mg/dL Creatinine (0.6-1.1) mg/dL POC Creatinine 0.9 (0.6-1.2) GFR Calculation Glucose (70-105) mg/dL POC Glucose > 700 H* (70-105) Osmolality (280-300) mOSM/kg Uric Acid (2.5-8.0) mg/dL Calcium (8.6-10.4) mg/dL POC WB Ioniz Calcium 1.07 L (1.16-1.32) Phosphorus (2.5-4.5) mg/dL Magnesium (1.6-2.5) mg/dL Total Bilirubin (0.1-1.0) mg/dL Direct Bilirubin (<0.3) mg/dL GGT (5-36) U/L AST (<32) U/L ALT (<40) U/L Alkaline Phosphatase (39-117) U/L Lactate Dehydrogenase (135-225) U/L Total Protein (5.9-8.4) gm/dL Albumin (3.2-5.2) gm/dL Globulin (2.2-3.7) gm/dL Albumin/Globulin Ratio (1.0-2.3) Triglycerides (<150) mg/dL Beta-Hydroxybutyrate (<0.27) mmol/L Procalcitonin (<0.10) ng/mL Urine Color Yellow Urine Appearance Cloudy A (Clear) Urine pH 5.0 (5.0-9.0) Ur Specific Mulberry 1.020 (1.000-1.035) Urine Protein Negative (Negative) mg/dL Urine Glucose (UA) >=500 A (Negative) mg/dL Urine Ketones 80 A (Negative) mg/dL Urine Occult Blood 0.20 (Negative) mg/dL Urine Nitrate Negative (Negative) Urine Bilirubin Negative (Negative) mg/dL Urine Urobilinogen Negative mg/dL Ur Leukocyte Esterase 500 A (Negative) /uL Urine RBC 8 H (0-3) /hpf Urine WBC > 182 H (0-4) /hpf Ur Squamous Epith Cells 2 (0-4) /hpf Urine Bacteria None (0) /hpf Urine Mucus Few A (None) /hpf Ur Culture Indicated? yes EKG Data EKG #1: EKG attestation: Yes I reviewed and interpreted this EKG. EKG results narrative: with Dr. Patel EKG shows normal: sinus rhythm and axis Rate: normal Rhythm: NSR Dumont/QRS: normal P waves: normal ST segment elevation in: None ST segment depression in: None QTc: normal When compared to previous EKG there are: no significant changes Interpretation: no acute changes and unchanged compared to prior tracing (date) (01/03/23) Discharge Plan Patient/Caregiver Discharge Instructions Pt seen by TEMPERATURE CONTROL INSPECTOR/PA only: Yes Clinical Impression: DKA (diabetic ketoacidosis), Acute UTI Patient Disposition: Xfer As Inpt ([facility]) Condition: Fair Follow up with: Eugenio March MD [Primary Care Provider] - Prescriptions: No Action tramadol 50 mg tablet 50 mg PO QDAY PRN (Reason: pain) Qty: 20 0RF Rx Instructions: must last 20 days albuterol sulfate [ProAir HFA] 90 mcg/actuation HFA aerosol inhaler 2 puff inhalation .q4-6h PRN (Reason: cough, shortness of breath, wheezing) Qty: 8.5 0RF Rx Instructions: administer with spacer insulin degludec [Tresiba U-100 Insulin] 100 unit/mL solution 23 unit subcut BID 30 Days Qty: 13.8 0RF oxycodone 5 mg tablet 5 mg PO BID PRN (Reason: breakthrough pain) Qty: 20 0RF trazodone 100 mg tablet 100 mg PO HSP betamethasone valerate 0.1 % ointment 1 applic topical BID PRN ketoconazole 2 % shampoo 1 applic topical 3XW melatonin 1 mg tablet 4 mg PO HS PRN zinc 50mg, magnesium 500mg PO bisacodyl 5 mg tablet,delayed release (DR/EC) 15 mg PO ONCE PRN ibuprofen 200 mg tablet 200 mg PO Q6H PRN hylands leg cramps, [id number] PO PRN aspirin 81 mg tablet,delayed release (DR/EC) 81 mg PO QDAY Qty: 90 3RF atorvastatin [Lipitor] 40 mg tablet 40 mg PO QDAY Qty: 60 0RF tramadol 50 mg tablet 50 mg PO Q8H PRN (Reason: pain) Qty: 20 0RF acyclovir 400 mg tablet 1 tab PO BID cholecalciferol (vitamin D3) [Vitamin D3] 50 mcg (2,000 unit) capsule 100 mcg PO DAILY insulin aspart U-100 [Novolog FlexPen U-100 Insulin] 100 unit/mL (3 mL) insul in pen See Protocol subcut ACHS Protocol: Insulin Sliding Scale, High Condition: HUMALOG/NOVALOG SC SLIDING Dose/Route: SCALE Condition: FSBS < 70 Dose/Route: Give 4 Oz juice, or 15gm oral Instruction: Glucose, or 25ml D50W IV if Dose/Route: unable to take PO. Recheck in Instruction: 15 min and repeat if FSBS < 70 Condition: FSBS 71-140 Dose/Route: NO COVERAGE Condition: FSBS 141-170 Dose/Route: 3 UNITS Condition: FSBS 171-200 Dose/Route: 6 UNITS Condition: FSBS 201-250 Dose/Route: 9 UNITS Condition: FSBS 251-300 Dose/Route: 12 UNITS Condition: FSBS 301-350 Dose/Route: 15 UNITS Condition: FSBS 351-400 Dose/Route: 18 UNITS Condition: FSBS > 400 Dose/Route: 20 UNITS; REPEAT Q2H X2 Instruction: CONTINUE FOLLOWING SLIDING Condition: SCALE; IF STILL > 400; CALL Dose/Route: PHYSICIAN levothyroxine 125 mcg tablet 1 tab PO QAM (DME) True Metrix Glucose Test Strip Strip 1 strip MISCELLANEOUS QID hyoscyamine sulfate 0.125 mg tablet,disintegrating 0.125 mg sublingual Q6HP PRN (Reason: muscle spasm) diphenhydramine HCl [Sleep Aid (diphenhydramine)] 50 mg Capsule 50 mg PO QHS propranolol 10 mg tablet 10 mg PO TID Zenpep 40,000-126,000- 168,000 unit capsule,delayed release(DR/EC) 1 cap PO TID gabapentin 400 mg capsule 400 mg PO QIDP PRN (Reason: Pain)
[2023-02-25 16:02] LABS: POC Blood Urea Nitrogen 38 (6-20); POC Calcium, Ionized 1.07 (1.16-1.32); POC Chloride 96 (96-108); POC Creatinine 0.9 (0.6-1.2); POC Glucose, Random > 700 (70-105); POC Potassium 5.2 (3.3-5.1); POC Sodium 124 (133-145)
[2023-02-25] MEDS ORDERED: INSULIN REGULAR, HUMAN 1 UNIT/0.01 ML UNIT IV ONE (16:11)
[2023-02-25] MEDS ORDERED: INSULIN REGULAR, HUMAN 50 UNIT in 0.9 % SODIUM CHLORIDE 99.5 ML IV ONE (16:12)
[2023-02-25 16:37] LABS: Basophils # (Auto) 0.03 K/mcL (0.00-0.30); Basophils % (Auto) 0.3 % (0.0-2.0); Eosinophils # (Auto) 0.01 K/mcL (0.00-0.70); Eosinophils % (Auto) 0.1 % (0.0-7.0); Hematocrit 38.1 % (34.1-44.9); Hemoglobin 11.8 g/dL (11.2-15.7); Lymphocytes # (Auto) 1.61 K/mcL (1.50-4.80); Lymphocytes % (Auto) 16.1 % (15.5-49.0); Mean Cell Volume 94.8 fL (80.0-100.0); Mean Platelet Volume 10.3 fL (8.8-12.5); Monocytes # (Auto) 0.32 K/mcL (0.10-0.90); Monocytes % (Auto) 3.2 % (1.0-12.0); Neutrophils % (Auto) 79.8 % (38.0-78.0); Platelet Count 303 K/mcL (140-440); RBC 4.02 M/mcL (3.59-5.38); Red Cell Distribution Width 15.4 % (11.5-14.5)
[2023-02-25 17:01] LABS: ALT/SGPT 23 U/L (<40); AST/SGOT 24 U/L (<32); Albumin 3.9 gm/dL (3.2-5.2); Alkaline Phosphatase 276 U/L (39-117); Bilirubin,Direct 0.3 mg/dL (<0.3); Bilirubin,Total 0.7 mg/dL (0.1-1.0); Globulin 3.3 gm/dL (2.2-3.7)
[2023-02-25 17:13] LABS: Beta Hydroxybutyrate 8.23 mmol/L (<0.27)
[2023-02-25 17:20] LABS: Appearance,Urine CLOUDY (Clear); Bilirubin,Urine Negative (Negative); Color,Urine YELLOW; Culture Indicated,Urine yes; Glucose,Urine (UA) >=500 mg/dL (Negative); Ketones,Urine 80 mg/dL (Negative); Leukocyte Esterase,Urine 500 /uL (Negative); Mucus,Urine FEW /hpf; Nitrate,Urine Negative (Negative); Protein,Urine Negative (Negative); Urine RBC 8 /hpf (0-3); Urine Squamous Epithelial Cell 2 /hpf (0-4); Urine WBC > 182 /hpf (0-4); Urobilinogen,Urine Negative
[2023-02-25] MEDS ORDERED: cefTRIAXone 1 GM VIAL IV ONE (17:30)
--- NOTE | 2023-02-25 17:52 | Internal Med History&Physical ---
HPI History of Present Illness Patient information: Note initiated : 02/25/23 at 5:30 pm Service Date, if different from initiated Date: [] Patient: Tennille Castillo a 77 y/o F admitted on for blood sugar over 550.. Chief Complaint: [] History of present illness: Ms. 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 EMS arrived her blood sugar was greater than 550. Patient has caregivers twice weekly. She says she thinks she has been feeling ill for the past few days with increased confusion and weakness. She does not recall Her last dose of insulin taken. Patient is a poor historian. There has been concern each admission that she is not safe at home to take care of herself and she has been at rehabs but then is eventually discharged home. I think long-term care has been more issue of insurance related. Patient has headache but denies fever chills nausea vomiting abdominal pain. Work-up in the ED revealed a mild tachycardia. Elevated beta hydroxybutyric acid 8. Lactate 3.4. Elevated BUN to creatinine ratio. And most notably her VBG showed a pH of 7.19 and on chemistry her qlimy-sm-hzrw bicarb was 9. Pending the rest of the chemistry panel. Shedv-vx-rksb glucose was greater than 700 and awaiting the actual level from the chemistry panel. Jzrdj-so-ylhm sodium was 124 which is not corrected for hyperglycemia. Patient started on IV fluids and insulin drip in the ED. Patient has had multiple admissions for DKA. Looks like about 6 admissions in 2021 and 4 so far in 2022. Review of Systems: Pertinent positives as above. Denies fever/chills/nausea/vomiting/chest or abdominal pain/cough/dyspnea/diarrhea. Remaining 10 point review of system reviewed negative PHYSICAL EXAM General: Awake, No acute Distress Eyes/N/T: EOMI, no scleral icterus, PERRL, dry MM Head/Neck: neck supple, full ROM, normocephalic atraumatic CV: RRR, No murmurs, normal s1/s2 Pulm: Clear b/l, no wheezing/rhonchi/rales, no respiratory distress Abd: soft, nontender, +BS x4 Ext: no clubbing/cyanosis/edema, nontender Neuro: Mildly lethargic mild confusion, CN 2-12 grossly intact, no focal deficits, moves all extremities, , sensations intact b/l upper/lower Psychiatric: Skin: warm/dry, normal color PFSH PFSH All Active Problems Confused (Acute) Anterior epistaxis (Chronic) Anemia (Chronic) Bimalleolar ankle fracture (Chronic) Elevated liver enzymes (Chronic) Chronic bronchitis with acute exacerbation (Chronic) Hypoxia (Chronic) Dehydration (Chronic) Epistaxis (Chronic) 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) Age-related osteoporosis with current pathological fracture, vertebra(e), initial encounter for fracture (Chronic) Pain in thoracic spine (Chronic) Low back pain (Chronic) Rectal pain (Chronic) Osteoporosis (Chronic) Hypertension (Chronic) Anxiety (Chronic) Depression (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) Chronic bronchitis (Chronic) Hypothyroidism (Chronic) History of surgery (Chronic) Dehiscence of closure of skin (Chronic) Sacrococcygeal pain (Chronic) Levator syndrome (Chronic) Insomnia (Chronic) Radiculopathy, lumbosacral region (Chronic) Radiculopathy, sacral and sacrococcygeal region (Chronic) DKA (diabetic ketoacidosis) (Chronic) Bronchitis (Chronic) Conjunctivitis (Chronic) Candidiasis of mouth (Chronic) Essential tremor (Chronic) Chronic pain (Chronic) Neuropathy (Chronic) Constipation (Chronic) Cirrhosis of liver (Chronic) Liver mass (Chronic) Chronic pancreatitis (Chronic) Abdominal pain (Chronic) Compression fracture of lumbosacral spine (Chronic) Fracture of lumbar spine (Chronic) Multiple environmental allergies (Chronic) Hard of hearing (Chronic) Stress (Chronic) Opioid dependence (Chronic) Diabetic retinopathy (Chronic) DDD (degenerative disc disease), cervical (Chronic) Fibromyalgia (Chronic) Glaucoma (Chronic) Hepatitis A (Chronic) Macular degeneration (Chronic) Pancreatitis (Chronic) Arthralgia (Chronic) Sleep disturbance (Chronic) Trigger finger (Chronic) Neurofibromatosis 2 (Chronic) Tremor (Chronic) Snoring (Chronic) Hypersomnia (Chronic) REM sleep behavior disorder (Chronic) Sleepwalking (Chronic) DKA (diabetic ketoacidosis) (Chronic) Vulvovaginitis due to yeast (Chronic) Obstructive sleep apnea (Chronic) Generalized weakness (Chronic) Acute dehydration (Chronic) Diabetic ketosis (Chronic) Acute dyspnea (Chronic) Hypomagnesemia (Chronic) Diabetic keto-acidosis (Chronic) Pseudohyponatremia (Chronic) DKA (diabetic ketoacidosis) (Chronic) Blood in urine (Chronic) Hypoglycemia (Chronic) DKA (diabetic ketoacidosis) (Chronic) Acute hyponatremia (Chronic) Acute hyperkalemia (Chronic) Acidosis, lactic (Chronic) Metabolic acidosis (Chronic) Compression fracture of body of thoracic vertebra (Chronic) Pain in rib (Chronic) 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) Chronic pain syndrome (Chronic) DKA, type 2 (Chronic) Hyperkalemia (Chronic) Mixed dyslipidemia (Chronic) Essential hypertension (Chronic) DKA, type 2 (Chronic) Clinical sepsis (Chronic) Septic shock (Chronic) Transaminitis (Chronic) Left renal mass (Chronic) Hypokalemia (Chronic) Hypoxemia (Chronic) Acute viral syndrome (Chronic) Schwannoma (Chronic) DKA (diabetic ketoacidosis) (Acute) Acidosis, lactic (Acute) Anemia, normocytic normochromic (Acute) Constipation (Acute) Abdominal pain, LLQ (Acute) Pancreatic insufficiency (Acute) Uncontrolled type 2 diabetes with neuropathy (Acute) CAD (coronary artery disease) (Acute) Medical History Abdominal pain Acute exacerbation of chronic obstructive airways disease Age-related osteoporosis with current pathological fracture, vertebra(e), initial encounter for fracture Anemia Anterior epistaxis Anxiety Arthralgia Bilateral primary osteoarthritis of hip Bimalleolar ankle fracture Blood in urine Bronchitis CAD (coronary artery disease) Candidiasis of mouth Chronic bronchitis with acute exacerbation Chronic pain Chronic pancreatitis Cirrhosis of liver Compression fracture of lumbosacral spine Conjunctivitis Constipation DDD (degenerative disc disease), cervical Dehiscence of closure of skin Dehydration Depression Diabetic retinopathy DKA (diabetic ketoacidosis) Elevated liver enzymes Epistaxis Essential tremor Fibromyalgia Fracture of lumbar spine Glaucoma Hard of hearing Hepatitis A Hyperglycemia due to type 2 diabetes mellitus Hypersomnia Hypertension Hypothyroidism Hypoxia Insomnia Levator syndrome Lipomatosis Liver mass Low back pain Macular degeneration Multiple environmental allergies Neurofibromatosis 2 Neuropathy Obstructive sleep apnea Did not tolerate CPAP Opioid dependence Osteoporosis Pain in thoracic spine Pancreatic insufficiency Pancreatitis Radiculopathy, lumbosacral region Radiculopathy, sacral and sacrococcygeal region Rectal pain REM sleep behavior disorder Sacrococcygeal pain Schwannoma Sleep disturbance Sleepwalking Snoring Stress Tremor Trigger finger Uncontrolled type 2 diabetes with neuropathy Surgical History History of appendectomy (~1969) History of arthroplasty of right ankle (~2017) History of cataract surgery (~2003) History of cholecystectomy History of colonoscopy (~06/26/18) History of decompression of median nerve (~2003) History of dilation and curettage History of eye surgery (~2005) Glaucoma History of hand surgery (~2003) Release of trigger finger, right History of left breast biopsy (~2005) History of oophorectomy History of surgery Vertebroplasty T12 w/sed 09/28/19 History of surgery retinopathy laser Stereotactic destruction of lesion using gamma radiation-2004 History of surgery on wrist History of tonsillectomy and adenoidectomy (~1969) Family History Mother Heart disease Fibromyalgia Father Malignant melanoma Malignant tumor of prostate Leukemia Social History lives independently: Yes marital status: education level: college occupational status: retired pets and animals: No other: 2 children physical activity: none smoking status: Never smoker alcohol intake frequency: does not drink substance use type: does not use seatbelt use: always working smoke detector in home: Yes carbon monox detector in home: Yes MEDS/ALLERGIES Home Medications and Allergies Home Medications Medication Instructions Recorded Confirmed Type acyclovir 400 mg tablet 1 tab PO BID 09/21/21 01/17/23 History insulin aspart U-100 100 unit/mL See Protocol subcut ACHS 04/23/22 01/17/23 History (3 mL) subcutaneous pen (Novolog FlexPen U-100 Insulin aspart) blood sugar diagnostic (True 08/21/22 01/17/23 History Metrix Glucose Test Strip) levothyroxine 125 mcg tablet 1 tab PO QAM 08/21/22 01/17/23 History hyoscyamine sulfate 0.125 mg 0.125 mg sublingual Q6HP PRN 10/15/22 01/17/23 History disintegrating tablet muscle spasm diphenhydramine HCl 50 mg capsule 50 mg PO QHS 11/17/22 01/17/23 History (Sleep Aid (diphenhydramine)) [id number] 1 cap PO TID 11/17/22 01/17/23 History 40,000-126,000-168,000 unit capsule, delay rel (Zenpep) propranolol 10 mg tablet 10 mg PO TID 11/17/22 01/17/23 History gabapentin 400 mg capsule 400 mg PO QIDP PRN Pain 12/25/22 01/17/23 History aspirin 81 mg tablet,delayed 81 mg PO QDAY #90 tabs 01/17/23 01/17/23 Rx release atorvastatin 40 mg tablet (Lipitor) 40 mg PO QDAY #60 tabs 01/17/23 01/17/23 Rx betamethasone valerate 0.1 % 1 applic topical BID PRN 01/17/23 01/17/23 History topical ointment bisacodyl 5 mg tablet,delayed 15 mg PO ONCE PRN 01/17/23 01/17/23 History release cholecalciferol (vitamin D3) 50 100 mcg PO DAILY 01/17/23 01/17/23 History mcg (2,000 unit) capsule (Vitamin D3) hylands leg cramps, [id number] PO PRN 01/17/23 History ibuprofen 200 mg tablet 200 mg PO Q6H PRN 01/17/23 01/17/23 History ketoconazole 2 % shampoo 1 applic topical 3XW 01/17/23 01/17/23 History melatonin 1 mg tablet 4 mg PO HS PRN 01/17/23 01/17/23 History trazodone 100 mg tablet 100 mg PO HSP insomnia 01/17/23 History zinc 50mg, magnesium 500mg PO 01/17/23 History tramadol 50 mg tablet 50 mg PO QDAY PRN pain #20 tabs 01/18/23 Rx albuterol sulfate 90 mcg/actuation 2 puff inhalation .q4-6h PRN 01/22/23 Rx aerosol inhaler (ProAir HFA) cough, shortness of breath, wheezing #8.5 grams insulin degludec 100 unit/mL 23 unit (0.23 mL) subcut BID 30 02/14/23 Rx subcutaneous solution (Tresiba days #13.8 mL U-100 Insulin) tramadol 50 mg tablet 50 mg PO Q8H PRN pain #20 tabs 02/15/23 02/15/23 Rx oxycodone 5 mg tablet 5 mg PO BID PRN breakthrough pain 02/19/23 Rx #20 tabs Allergies Allergy/AdvReac Type Severity Reaction Status Date / Time cephalexin [From Keflex] Allergy Intermediate Swelling Verified 01/17/23 12:53 lidocaine Allergy Intermediate Blister Verified 01/17/23 12:53 fenugreek Allergy Mild Itching Verified 01/17/23 12:53 Penicillins Allergy Mild Rash Verified 01/17/23 12:53 Anistreplase [From Eminase] Allergy Unknown UNKNOWN Verified 01/17/23 12:53 codeine AdvReac Mild Itching Verified 01/17/23 12:53 Erythromycin Base AdvReac Mild Itching Verified 01/17/23 12:53 Nortriptyline AdvReac Mild Nausea Verified 01/17/23 12:53 promethazine AdvReac Mild Fainting Verified 01/17/23 12:53 trulicity AdvReac Intermediate Other Uncoded 01/17/23 12:53 EXAM Constitutional Vitals: Pulse Resp BP O2 Del Method 91 H 16 117/40 Room Air 02/25/23 17:16 02/25/23 17:16 02/25/23 17:16 02/25/23 15:13 DATA Data Completed and Pending Labs: Labs from last 24 hours 02/25/23 02/25/23 02/25/23 16:06 15:59 15:55 WBC RBC Hgb Hct POC Hct 40.0 MCV MCH MCHC RDW Plt Count MPV Immature Gran % (Auto) Neut % (Auto) Lymph % (Auto) [place] % (Auto) Eos % (Auto) Baso % (Auto) Lymph # (Auto) [place] # (Auto) Eos # (Auto) Baso # (Auto) Immature Gran # Absolute Neutrophils POC VBG pH 7.19 L* POC VBG pCO2 at Temp 21.7 L POC VBG pO2 47 H POC VBG HCO3 8.4 L* POC VBG Total CO2 9.0 L POC Venous O2 Sat 74.0 H POC VBG Base Excess -20.0 L VBG Lactic Acid 3.4 H POC Sodium 124 L Sodium POC Potassium 5.2 H Potassium POC Chloride 96 Chloride Carbon Dioxide POC Total CO2 9.0 L* Anion Gap POC Anion Gap 25.0 H POC BUN 38 H BUN Creatinine POC Creatinine 0.9 GFR Calculation Glucose POC Glucose > 700 H* Osmolality Uric Acid Calcium POC WB Ioniz Calcium 1.07 L Phosphorus Magnesium Total Bilirubin Direct Bilirubin GGT AST ALT Alkaline Phosphatase Lactate Dehydrogenase Total Protein Albumin Globulin Albumin/Globulin Ratio Triglycerides Beta-Hydroxybutyrate Procalcitonin Urine Color Yellow Urine Appearance Cloudy A Urine pH 5.0 Ur Specific [place] 1.020 Urine Protein Negative Urine Glucose (UA) >=500 A Urine Ketones 80 A Urine Occult Blood 0.20 Urine Nitrate Negative Urine Bilirubin Negative Urine Urobilinogen Negative Ur Leukocyte Esterase 500 A Urine RBC 8 H Urine WBC > 182 H Ur Squamous Epith Cells 2 Urine Bacteria None Urine Mucus Few A Ur Culture Indicated? yes 02/25/23 02/25/23 02/25/23 15:54 15:54 15:54 WBC RBC Hgb Hct POC Hct MCV MCH MCHC RDW Plt Count MPV Immature Gran % (Auto) Neut % (Auto) Lymph % (Auto) [place] % (Auto) Eos % (Auto) Baso % (Auto) Lymph # (Auto) [place] # (Auto) Eos # (Auto) Baso # (Auto) Immature Gran # Absolute Neutrophils POC VBG pH POC VBG pCO2 at Temp POC VBG pO2 POC VBG HCO3 POC VBG Total CO2 POC Venous O2 Sat POC VBG Base Excess VBG Lactic Acid POC Sodium Sodium Pending POC Potassium Potassium Pending POC Chloride Chloride Pending Carbon Dioxide Pending POC Total CO2 Anion Gap Pending POC Anion Gap POC BUN BUN Pending Creatinine Pending POC Creatinine GFR Calculation Pending Glucose Pending POC Glucose Osmolality Pending Uric Acid Pending Calcium Pending POC WB Ioniz Calcium Phosphorus Pending Magnesium Pending Total Bilirubin Pending Direct Bilirubin Pending GGT Pending AST Pending ALT Pending Alkaline Phosphatase Pending Lactate Dehydrogenase Pending Total Protein Pending Albumin Pending Globulin Pending Albumin/Globulin Ratio Pending Triglycerides Pending Beta-Hydroxybutyrate Procalcitonin 0.12 H Urine Color Urine Appearance Urine pH Ur Specific [place] Urine Protein Urine Glucose (UA) Urine Ketones Urine Occult Blood Urine Nitrate Urine Bilirubin Urine Urobilinogen Ur Leukocyte Esterase Urine RBC Urine WBC Ur Squamous Epith Cells Urine Bacteria Urine Mucus Ur Culture Indicated? 02/25/23 02/25/23 15:54 15:54 WBC 10.0 RBC 4.02 Hgb 11.8 Hct 38.1 POC Hct MCV 94.8 MCH 29.4 MCHC 31.0 RDW 15.4 H Plt Count 303 MPV 10.3 Immature Gran % (Auto) 0.5 Neut % (Auto) 79.8 H Lymph % (Auto) 16.1 [place] % (Auto) 3.2 Eos % (Auto) 0.1 Baso % (Auto) 0.3 Lymph # (Auto) 1.61 [place] # (Auto) 0.32 Eos # (Auto) 0.01 Baso # (Auto) 0.03 Immature Gran # 0.05 Absolute Neutrophils 7.97 POC VBG pH POC VBG pCO2 at Temp POC VBG pO2 POC VBG HCO3 POC VBG Total CO2 POC Venous O2 Sat POC VBG Base Excess VBG Lactic Acid POC Sodium Sodium POC Potassium Potassium POC Chloride Chloride Carbon Dioxide POC Total CO2 Anion Gap POC Anion Gap POC BUN BUN Creatinine POC Creatinine GFR Calculation Glucose POC Glucose Osmolality Uric Acid Calcium POC WB Ioniz Calcium Phosphorus Magnesium Total Bilirubin 0.7 Direct Bilirubin 0.3 H GGT AST 24 ALT 23 Alkaline Phosphatase 276 H Lactate Dehydrogenase Total Protein 7.2 Albumin 3.9 Globulin 3.3 Albumin/Globulin Ratio Triglycerides Beta-Hydroxybutyrate 8.23 H Procalcitonin Urine Color Urine Appearance Urine pH Ur Specific [place] Urine Protein Urine Glucose (UA) Urine Ketones Urine Occult Blood Urine Nitrate Urine Bilirubin Urine Urobilinogen Ur Leukocyte Esterase Urine RBC Urine WBC Ur Squamous Epith Cells Urine Bacteria Urine Mucus Ur Culture Indicated? A/P Narrative A/P Narrative: A: #DKA/HHS, severe: -multiple admission, poor self-care at home #AG Metabolic acidosis, severe; including Lactic acidosis: #DM2 Poorly controlled insulin-dependent w/neuropathy: -A1c 10.1 in December #Encephalopathy: 2/2 above #SUDARSHAN w/Volume depletion: 2/2 above #Hyponatremia: Corrected number is #Generalized weakness/deconditioning: #UTI: #h/o CAD: #Anemia, chronic: #Hypothyroidism: cont levothyroxine #Chronic pancreatitis: #Hypertriglyceridemia: #chronically elevated LFT's #Essential tremor: #chr back pain: #Long-term prognosis quite guarded with multiple admissions and poor compliance - Plan: -insulin gtt -IVF's, follow-up lactate -f/u vbg/bhb, osmol -rocephin pending UC -Monitor electrolytes closely Replace as needed -Monitor renal function, avoid nephrotoxic meds -Monitor UOP/fluid balance closely - -Continue home duloxetine/gabapentin -Continue her home pancreatic enzyme supplements, levothyroxine, fenofibrate -qhs snack when back on home regimen -Home medication reconciliation -PT/OT -CM for SNF placement, pt is not able to consistently care for herself at home even with twice weekly caregivers. -DVT prophylaxis: lovenox / H2 CODE STATUS: DNR Time Spent With Patient Time: Total time spent is greater than 50% in coordination of care (as documented) at patient's floor/unit and/or counseling patient: Critical Care Time: Yes Total Critical Care Time: 70
[2023-02-25 19:21] LABS: ALT/SGPT 25 U/L (<40); AST/SGOT 25 U/L (<32); Albumin/Globulin Ratio 1.4 (1.0-2.3); Alkaline Phosphatase 266 U/L (39-117); Bilirubin,Direct 0.3 mg/dL (<0.3); Bilirubin,Total 0.6 mg/dL (0.1-1.0); Blood Urea Nitrogen 40 mg/dL (8-23); Calcium 8.7 mg/dL (8.6-10.4); Carbon Dioxide 5 mmol/L (22-30); Chloride 84 mmol/L (96-108); Globulin 2.9 gm/dL (2.2-3.7); Glomerular Filtration Rate 39; Glucose 788 mg/dL (70-105); Lactate Dehydrogenase 222 U/L (135-225); Phosphorous 4.9 mg/dL (2.5-4.5); Triglycerides 278 mg/dL (<150); Uric Acid 10.4 mg/dL (2.5-8.0)
[2023-02-25] MEDS ORDERED: ONDANSETRON 4 MG/2 ML VIAL IV PRN (20:33)
[2023-02-25] MEDS ORDERED: INSULIN REGULAR, HUMAN 50 UNIT in 0.9 % SODIUM CHLORIDE 99.5 ML IV SCH (20:33)
[2023-02-25] MEDS ORDERED: 0.9 % SODIUM CHLORIDE 1,000 ML IV SCH (20:33)
[2023-02-25] MEDS ORDERED: POLYETHYLENE GLYCOL 3350 17 GM PACKET PO PRN (20:33)
[2023-02-25] MEDS ORDERED: MAGNESIUM SULFATE 2 GM/50 ML BAG IV PRN (20:33)
[2023-02-25] MEDS ORDERED: POTASSIUM CHLORIDE 40 MEQ in DEXTROSE 5% IN WATER 500 ML IV PRN (20:33)
[2023-02-25] MEDS ORDERED: IPRATROPIUM/ALBUTEROL 3 ML AMPUL.NEB NEB PRN (20:33)
[2023-02-25] MEDS ORDERED: POTASSIUM CHLORIDE 20 MEQ TABLET PO PRN ×2 (20:33)
[2023-02-25] MEDS: DOCUSATE SODIUM 100 MG CAPSULE PO SCH (20:42)
[2023-02-25] MEDS: 0.9 % SODIUM CHLORIDE 10 ML SYRINGE IV SCH (20:43)
[2023-02-25] MEDS: FAMOTIDINE 20 MG TABLET PO SCH (20:45)
[2023-02-25] MEDS ORDERED: INSULIN REGULAR, HUMAN 1 UNIT/0.01 ML UNIT ONE (21:09)
[2023-02-25] MEDS: DEXTROSE 5%-NS 1,000 ML IV SCH (22:12)
[2023-02-26] MEDS: 0.9 % SODIUM CHLORIDE 10 ML SYRINGE IV SCH ×3 (06:00→20:30)
[2023-02-26 06:37] LABS: Basophils # (Auto) 0.04 K/mcL (0.00-0.30); Basophils % (Auto) 0.4 % (0.0-2.0); Eosinophils % (Auto) 1.1 % (0.0-7.0); Hematocrit 31.5 % (34.1-44.9); Hemoglobin 10.6 g/dL (11.2-15.7); Lymphocytes # (Auto) 1.99 K/mcL (1.50-4.80); Lymphocytes % (Auto) 22.4 % (15.5-49.0); Mean Corpuscular HGB Conc 33.7 g/dL (31.0-36.0); Mean Platelet Volume 10.2 fL (8.8-12.5); Monocytes # (Auto) 0.72 K/mcL (0.10-0.90); Monocytes % (Auto) 8.1 % (1.0-12.0); Neutrophils % (Auto) 67.6 % (38.0-78.0); Platelet Count 262 K/mcL (140-440); RBC 3.58 M/mcL (3.59-5.38); Red Cell Distribution Width 15.1 % (11.5-14.5); WBC 8.9 K/mcL (4.5-11.0)
[2023-02-26 07:07] LABS: ALT/SGPT 17 U/L (<40); AST/SGOT 20 U/L (<32); Albumin 3.2 gm/dL (3.2-5.2); Albumin/Globulin Ratio 1.3 (1.0-2.3); Alkaline Phosphatase 218 U/L (39-117); Beta Hydroxybutyrate 1.93 mmol/L (<0.27); Bilirubin,Direct < 0.2 mg/dL (0-0.3); Bilirubin,Total 0.3 mg/dL (0.1-1.0); Blood Urea Nitrogen 29 mg/dL (8-23); Calcium 8.2 mg/dL (8.6-10.4); Carbon Dioxide 20 mmol/L (22-30); Chloride 104 mmol/L (96-108); Globulin 2.5 gm/dL (2.2-3.7); Glomerular Filtration Rate 61; Glucose 161 mg/dL (70-105); Lactate Dehydrogenase 196 U/L (135-225); Phosphorous 2.3 mg/dL (2.5-4.5); Triglycerides 93 mg/dL (<150); Uric Acid 10.3 mg/dL (2.5-8.0)
[2023-02-26] MEDS: DEXTROSE 5%-NS 1,000 ML IV SCH (07:56)
[2023-02-26] MEDS ORDERED: DEXTROSE 31 GM ORAL.SUSP PO PRN (07:58)
[2023-02-26] MEDS ORDERED: DEXTROSE 50% 50 ML VIAL IV PRN (07:58)
--- NOTE | 2023-02-26 07:59 | Internal Med Progress Note ---
SUBJECTIVE Subjective Patient information: Note initiated : 02/26/23 at 7:54 am Service Date, if different from initiated Date: [] Patient: Tennille Castillo a 77 y/o F admitted on 02/25/23 for blood sugar over 550./ severe DKA, encephalopathy. Chief Complaint: [] Interval history: History of present illness: Ms. 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 EMS arrived her blood sugar was greater than 550. Patient has caregivers twice weekly. She says she thinks she has been feeling ill for the past few days with increased confusion and weakness. She does not recall Her last dose of insulin taken. Patient is a poor historian. There has been concern each admission that she is not safe at home to take care of herself and she has been at rehabs but then is eventually discharged home. I think long-term care has been more issue of insurance related. Patient has headache but denies fever chills nausea vomiting abdominal pain. Work-up in the ED revealed a mild tachycardia. Elevated beta hydroxybutyric acid 8. Lactate 3.4. Elevated BUN to creatinine ratio. And most notably her VBG showed a pH of 7.19 and on chemistry her tqrlu-mc-gfay bicarb was 9. Pending the rest of the chemistry panel. Ubeuc-pt-lzoy glucose was greater than 700 and awaiting the actual level from the chemistry panel. Rthbs-vv-gzml sodium was 124 which is not corrected for hyperglycemia. Patient started on IV fluids and insulin drip in the ED. Patient has had multiple admissions for DKA. Looks like about 6 admissions in 2021 and 4 so far in 2022. 02/26 Patient did Sleep poorly last night. Feels weak and tired. Transitioning from insulin drip to subcu insulin today monitoring closely. Continue IV fluids. Start work with PT OT Monitor electrolytes. Review of Systems: Pertinent positives as above. Denies fever/chills/nausea/vomiting/chest or abdominal pain/cough/dyspnea/diarrhea. PHYSICAL EXAM General: Awake, No acute Distress Eyes/N/T: EOMI, no scleral icterus, Head/Neck: neck supple, full ROM, CV: RRR, No murmurs, Pulm: Clear b/l, no wheezing/rhonchi/rales, no respiratory distress Abd: soft, nontender, +BS x4 Ext: no clubbing/cyanosis/edema, nontender Neuro: drowsy, no focal deficits, moves all extremities, , sensations intact b/l upper/lower Psychiatric: Skin: warm/dry, normal color Constitutional Vitals: Vital Signs Temp Pulse Resp BP Pulse Ox O2 Del Method 97.5 F 75 15 130/52 97 Room Air 02/26/23 04:01 02/26/23 07:01 02/26/23 07:01 02/26/23 07:01 02/26/23 07:01 02/26/23 07:01 Period Temp Pulse Resp BP Sys/Rosario Pulse Ox O2 Del Method O2 Flow Rate Last 24 Hr 97.5 F-98.3 F 75-113 12-21 116-158/38-107 96-100 Room Air-Room Air Intake and Output 02/25/23 02/26/23 02/26/23 19:59 03:59 11:59 Intake Total 24 2223 Output Total 450 Balance 24 1773 Weight 66.678 kg 64.098 kg Intake & Output: Intake & Output 02/25/23 02/26/23 02/26/23 19:59 03:59 11:59 Intake Total 24 2223 Output Total 450 Balance 24 1773 Weight 66.678 kg 64.098 kg Intake: IV 24 2223 Sodium Chloride 0.9% 1,000 ml @ 2179 125 mls/hr IV .Q8H [facility] Rx#: [id number] HumuLIN R 50 UNIT In Sodium 24 44 Chloride 0.9% 99.5 ml @ Per Protocol IV ONCE ONE Rx#: [id number] Output: Void Amount 450 Other: Urine Color Yellow Stool Size Copious Stool Color Brown Stool Consistency Liquid Loose # Voids 1 # Bowel Movements 1 OBJ DATA Labs 02/26/23 05:19 02/26/23 05:19 Labs: Abnormal Lab Results 02/26/23 02/26/23 02/25/23 05:19 05:19 21:04 RBC 3.58 L Hgb 10.6 L Hct 31.5 L RDW 15.1 H Neut % (Auto) POC VBG pH 7.28 L POC VBG pCO2 at Temp 30.0 L POC VBG pO2 POC VBG HCO3 13.9 L POC VBG Total CO2 15.0 L POC Venous O2 Sat POC VBG Base Excess -13.0 L VBG Lactic Acid 2.6 H POC Sodium Sodium POC Potassium Potassium Chloride Carbon Dioxide 20 L POC Total CO2 Anion Gap POC Anion Gap POC BUN BUN 29 H Creatinine Glucose 161 H POC Glucose Osmolality 302 H Uric Acid 10.3 H Calcium 8.2 L POC WB Ioniz Calcium Phosphorus 2.3 L Direct Bilirubin GGT 49 H Alkaline Phosphatase 218 H Total Protein 5.7 L Triglycerides Beta-Hydroxybutyrate 1.93 H Procalcitonin Urine Appearance Urine Glucose (UA) Urine Ketones Ur Leukocyte Esterase Urine RBC Urine WBC Urine Mucus 02/25/23 02/25/23 02/25/23 16:06 15:59 15:55 RBC Hgb Hct RDW Neut % (Auto) POC VBG pH 7.19 L* POC VBG pCO2 at Temp 21.7 L POC VBG pO2 47 H POC VBG HCO3 8.4 L* POC VBG Total CO2 9.0 L POC Venous O2 Sat 74.0 H POC VBG Base Excess -20.0 L VBG Lactic Acid 3.4 H POC Sodium 124 L Sodium POC Potassium 5.2 H Potassium Chloride Carbon Dioxide POC Total CO2 9.0 L* Anion Gap POC Anion Gap 25.0 H POC BUN 38 H BUN Creatinine Glucose POC Glucose > 700 H* Osmolality Uric Acid Calcium POC WB Ioniz Calcium 1.07 L Phosphorus Direct Bilirubin GGT Alkaline Phosphatase Total Protein Triglycerides Beta-Hydroxybutyrate Procalcitonin Urine Appearance Cloudy A Urine Glucose (UA) >=500 A Urine Ketones 80 A Ur Leukocyte Esterase 500 A Urine RBC 8 H Urine WBC > 182 H Urine Mucus Few A 02/25/23 02/25/23 02/25/23 15:54 15:54 15:54 RBC Hgb Hct RDW Neut % (Auto) POC VBG pH POC VBG pCO2 at Temp POC VBG pO2 POC VBG HCO3 POC VBG Total CO2 POC Venous O2 Sat POC VBG Base Excess VBG Lactic Acid POC Sodium Sodium 124 L POC Potassium Potassium 5.2 H Chloride 84 L Carbon Dioxide 5 L* POC Total CO2 Anion Gap 35.0 H POC Anion Gap POC BUN BUN 40 H Creatinine 1.3 H Glucose 788 H* POC Glucose Osmolality 330 H Uric Acid 10.4 H Calcium POC WB Ioniz Calcium Phosphorus 4.9 H Direct Bilirubin 0.3 H GGT 61 H Alkaline Phosphatase 266 H Total Protein Triglycerides 278 H Beta-Hydroxybutyrate Procalcitonin 0.12 H Urine Appearance Urine Glucose (UA) Urine Ketones Ur Leukocyte Esterase Urine RBC Urine WBC Urine Mucus 02/25/23 02/25/23 15:54 15:54 RBC Hgb Hct RDW 15.4 H Neut % (Auto) 79.8 H POC VBG pH POC VBG pCO2 at Temp POC VBG pO2 POC VBG HCO3 POC VBG Total CO2 POC Venous O2 Sat POC VBG Base Excess VBG Lactic Acid POC Sodium Sodium POC Potassium Potassium Chloride Carbon Dioxide POC Total CO2 Anion Gap POC Anion Gap POC BUN BUN Creatinine Glucose POC Glucose Osmolality Uric Acid Calcium POC WB Ioniz Calcium Phosphorus Direct Bilirubin 0.3 H GGT Alkaline Phosphatase 276 H Total Protein Triglycerides Beta-Hydroxybutyrate 8.23 H Procalcitonin Urine Appearance Urine Glucose (UA) Urine Ketones Ur Leukocyte Esterase Urine RBC Urine WBC Urine Mucus Meds: Medications Acetaminophen (Acetaminophen 325 Mg Tablet) 650 mg PO Q4-6HP PRN PRN Reason: Fever >101 Albuterol/Ipratropium (Ipratropium/Albuterol 3 Ml Ampul.Neb) 3 ml NEB Q4HP PRN PRN Reason: Shortness Of Breath Ceftriaxone Sodium (Ceftriaxone 1 Gm Vial) 1 gm IV Q24H PEG; Protocol Diagnostic Test (Pha) (Accu-Chek 1 Each Strip) 1 each FS Q1 [facility] Last Admin: 02/26/23 07:02 Dose: 1 each Docusate Sodium (Docusate Sodium 100 Mg Capsule) 100 mg PO BID [facility] Last Admin: 02/25/23 20:42 Dose: Not Given Enoxaparin Sodium (Enoxaparin 40 Mg/0.4 Ml Syringe) 40 mg SQ DAILY [facility] Famotidine (Famotidine 20 Mg Tablet) 20 mg PO BID [facility] Last Admin: 02/25/23 20:45 Dose: 20 mg Potassium Chloride 40 meq/ (Dextrose) 520 mls @ 130 mls/hr IV PRN PRN PRN Reason: K+ < 3.0 Magnesium Sulfate (Magnesium Sulfate) 2 gm in 50 mls @ 25 mls/hr IV PRN PRN PRN Reason: Magnesium Level </= 1.6 Insulin Human Regular 50 unit/ (Sodium Chloride) 100 mls @ 10 mls/hr IV DUR PEG; Protocol Dextrose/Sodium Chloride (Dextrose 5%-Ns Iv Solution) 1,000 mls @ 125 mls/hr IV .Q8H [facility] Last Admin: 02/25/23 22:12 Dose: 125 mls/hr Ondansetron HCl (Ondansetron 4 Mg/2 Ml Vial) 4 mg IV Q4HP PRN PRN Reason: Nausea And Vomiting Polyethylene Glycol (Polyethylene Glycol 3350 17 Gm Packet) 17 gm PO DAILYP PRN PRN Reason: Constipation Potassium Chloride (Potassium Chloride 20 Meq Tablet) 40 meq PO ONCE PRN PRN Reason: Potassium Level < 3 Potassium Chloride (Potassium Chloride 20 Meq Tablet) 40 meq PO UD PRN PRN Reason: Potassium Level of 3-3.5 Senna (Sennosides 1 Tablet) 2 tab PO DAILY PRN PRN Reason: Constipation Sodium Chloride (0.9 % Sodium Chloride 10 Ml Syringe) 10 ml IV Q8 [facility] Last Admin: 02/26/23 06:00 Dose: 10 ml A/P Narrative A/P Narrative: A: #DKA/HHS, severe: improving -multiple admission, poor self-care at home #AG Metabolic acidosis, severe; including Lactic acidosis: #DM2 Poorly controlled insulin-dependent w/neuropathy: -A1c 10.1 in December #Encephalopathy: 2/2 above #SUDARSHAN w/Volume depletion: 2/2 above, improving #Hyponatremia: resolved #Generalized weakness/deconditioning: #UTI( ): #h/o CAD: #Anemia, chronic: #Hypothyroidism: cont levothyroxine #Chronic pancreatitis: #Hypertriglyceridemia: #chronically elevated LFT's #Essential tremor: #chr back pain: #Long-term prognosis quite guarded with multiple admissions and poor compliance -6 admits 2021, 4 admits this year so far Plan: -insulin gtt to SQ -IVF's, follow-up lactate -f/u vbg/bhb, osmol -rocephin pending UC -Monitor electrolytes closely Replace as needed -Monitor renal function, avoid nephrotoxic meds -Monitor UOP/fluid balance closely -cont asa/statin -Continue home duloxetine/gabapentin -Continue her home pancreatic enzyme supplements, levothyroxine, fenofibrate -qhs snack when back on home regimen -PT/OT -CM for SNF placement, pt is not able to consistently care for herself at home even with twice weekly caregivers. -DVT prophylaxis: lovenox / H2 CODE STATUS: DNR Time Spent With Patient Time: Total time spent is greater than 50% in coordination of care (as documented) at patient's floor/unit and/or counseling patient: Subsequent: Total time with patient: 50 - 65 Minutes QUALITY VTE Deep Vein Thrombosis/Pulmonary Embolism Present on Admission: No
[2023-02-26] MEDS: LEVOTHYROXINE 125 MCG TABLET PO SCH (08:19)
[2023-02-26] MEDS: FAMOTIDINE 20 MG TABLET PO SCH ×2 (08:19→20:27)
[2023-02-26] MEDS: ATORVASTATIN 40 MG TABLET PO SCH (08:19)
[2023-02-26] MEDS: INSULIN GLARGINE, HUMAN 1 UNIT/0.01 ML SQ SCH ×2 (08:19→20:27)
[2023-02-26] MEDS: ASPIRIN 81 MG TAB.CHEW PO SCH (08:19)
[2023-02-26] MEDS: DOCUSATE SODIUM 100 MG CAPSULE PO SCH ×2 (08:20→20:29)
[2023-02-26] MEDS: ENOXAPARIN 40 MG/0.4 ML SYRINGE SQ SCH (08:20)
[2023-02-26] MEDS ORDERED: cefTRIAXone 1 GM VIAL IV SCH (09:00)
[2023-02-26] MEDS ORDERED: 0.9 % SODIUM CHLORIDE 1,000 ML IV SCH (09:30)
[2023-02-26] MEDS: INSULIN LISPRO 1 UNIT/0.01 ML UNIT SQ SCH ×4 (10:30→21:05)
--- NOTE | 2023-02-26 11:06 | Discharge Summary ---
Discharge Provider Provider IMPORTANT FOLLOW-UP INFORMATION FOR PCP: Patient information: Note initiated : 02/26/23 at 11:04 am Service Date, if different from initiated Date: [] Patient: Tennille Castillo a 77 y/o F admitted on 02/25/23 for blood sugar over 550./ severe DKA, encephalopathy. Chief Complaint: [] Date of admission: 02/25/23 20:06 Primary care physician: Eugenio March MD Consults: 02/25/23 Consult to Physician [CONS] Stat Comment: Consulting Provider: Jef Borges Reason For Exam: Physician to Consult COURSE Hospital Course Hospital course: History of present illness: Ms. 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 EMS arrived her blood sugar was greater than 550. Patient has caregivers twice weekly. She says she thinks she has been feeling ill for the past few days with increased confusion and weakness. She does not recall Her last dose of insulin taken. Patient is a poor historian. There has been concern each admission that she is not safe at home to take care of herself and she has been at rehabs but then is eventually discharged home. I think long-term care has been more issue of insurance related. Patient has headache but denies fever chills nausea vomiting abdominal pain. Work-up in the ED revealed a mild tachycardia. Elevated beta hydroxybutyric acid 8. Lactate 3.4. Elevated BUN to creatinine ratio. And most notably her VBG showed a pH of 7.19 and on chemistry her lwnfp-fi-gsvq bicarb was 9. Pending the rest of the chemistry panel. Fhnso-ec-dolr glucose was greater than 700 and awaiting the actual level from the chemistry panel. Pdshr-jw-mzcp sodium was 124 which is not corrected for hyperglycemia. Patient started on IV fluids and insulin drip in the ED. Patient has had multiple admissions for DKA. Looks like about 6 admissions in 2021 and 4 so far in 2022. 02/26 Patient did Sleep poorly last night. Feels weak and tired. Transitioning from insulin drip to subcu insulin today monitoring closely. Continue IV fluids. Start work with PT OT Monitor electrolytes. 02/27 Patient states he did not sleep very well last night and has a history of insomnia. She has nausea vomiting this morning. Hypokalemic kalemia on lab this morning replete and trend. Hypophosphatemia replete. 02/28 Mild hypokalemia, improving. Patient seems to have a bit more severe dinner this morning. Adjusting insulin regimen. 03/01 No overnight events. Patient does complain of her chronic lower back pain. We will try heating pads Robaxin and Tylenol. monitoring sugars for any further insulin changes. High risk for readmission and likely given her repeated admissions and inability to care for self at home A: #DKA/HHS, severe: improving -multiple admission, poor self-care at home #AG Metabolic acidosis, severe; including Lactic acidosis: #DM2 Poorly controlled insulin-dependent w/neuropathy: -A1c 10.1 in December #Encephalopathy: 2/2 above #SUDARSHAN w/Volume depletion: 2/2 above #Hyponatremia: resolved #Generalized weakness/deconditioning: #UTI( ), complicated: #h/o CAD: #Anemia, chronic: #Hypothyroidism: cont levothyroxine #Chronic pancreatitis: #Hypertriglyceridemia: #chronically elevated LFT's #Essential tremor: #chr back pain: #Long-term prognosis quite guarded with multiple admissions and poor compliance -6 admits 2021, 4 admits this year so far Plan: -cm for snf placement -abx for uti Discharge diagnosis: Diabetes/HHS poorly controlled diabetes Secondary discharge diagnosis: Encephalopathy acute kidney injury hyponatremia generalized weakness deconditioning UTI CAD chronic anemia hypothyroidism chronic pancreatitis chronic pain poor self-care Time Spent with Patient Time attestation: Total time spent providing and/or coordinating discharge services: Time spent: Greater than 30 minutes EXAM Constitutional Vitals: Temp Pulse Resp BP Pulse Ox O2 Del Method 96.7 F L 80 20 123/40 97 Room Air 02/26/23 08:01 02/26/23 11:01 02/26/23 11:01 02/26/23 11:01 02/26/23 11:01 02/26/23 11:01 Discharge Data Data Completed and Pending Labs on day of discharge: Labs from last 24 hours 02/26/23 02/26/23 02/25/23 05:19 05:19 21:04 WBC 8.9 RBC 3.58 L Hgb 10.6 L Hct 31.5 L POC Hct MCV 88.0 MCH 29.6 MCHC 33.7 RDW 15.1 H Plt Count 262 MPV 10.2 Immature Gran % (Auto) 0.4 Neut % (Auto) 67.6 Lymph % (Auto) 22.4 [place] % (Auto) 8.1 Eos % (Auto) 1.1 Baso % (Auto) 0.4 Lymph # (Auto) 1.99 [place] # (Auto) 0.72 Eos # (Auto) 0.10 Baso # (Auto) 0.04 Immature Gran # 0.04 Absolute Neutrophils 6.01 POC VBG pH 7.28 L POC VBG pCO2 at Temp 30.0 L POC VBG pO2 33 POC VBG HCO3 13.9 L POC VBG Total CO2 15.0 L POC Venous O2 Sat 56.0 POC VBG Base Excess -13.0 L VBG Lactic Acid 1.0 2.6 H POC Sodium Sodium 136 POC Potassium Potassium 3.8 POC Chloride Chloride 104 Carbon Dioxide 20 L POC Total CO2 Anion Gap 12.0 POC Anion Gap POC BUN BUN 29 H Creatinine 0.9 POC Creatinine GFR Calculation 61 Glucose 161 H POC Glucose Osmolality 302 H Uric Acid 10.3 H Calcium 8.2 L POC WB Ioniz Calcium Phosphorus 2.3 L Magnesium 2.0 Total Bilirubin 0.3 Direct Bilirubin < 0.2 GGT 49 H AST 20 ALT 17 Alkaline Phosphatase 218 H Lactate Dehydrogenase 196 Total Protein 5.7 L Albumin 3.2 Globulin 2.5 Albumin/Globulin Ratio 1.3 Triglycerides 93 Beta-Hydroxybutyrate 1.93 H Procalcitonin Urine Color Urine Appearance Urine pH Ur Specific [place] Urine Protein Urine Glucose (UA) Urine Ketones Urine Occult Blood Urine Nitrate Urine Bilirubin Urine Urobilinogen Ur Leukocyte Esterase Urine RBC Urine WBC Ur Squamous Epith Cells Urine Bacteria Urine Mucus Ur Culture Indicated? 02/25/23 02/25/23 02/25/23 16:06 15:59 15:55 WBC RBC Hgb Hct POC Hct 40.0 MCV MCH MCHC RDW Plt Count MPV Immature Gran % (Auto) Neut % (Auto) Lymph % (Auto) [place] % (Auto) Eos % (Auto) Baso % (Auto) Lymph # (Auto) [place] # (Auto) Eos # (Auto) Baso # (Auto) Immature Gran # Absolute Neutrophils POC VBG pH 7.19 L* POC VBG pCO2 at Temp 21.7 L POC VBG pO2 47 H POC VBG HCO3 8.4 L* POC VBG Total CO2 9.0 L POC Venous O2 Sat 74.0 H POC VBG Base Excess -20.0 L VBG Lactic Acid 3.4 H POC Sodium 124 L Sodium POC Potassium 5.2 H Potassium POC Chloride 96 Chloride Carbon Dioxide POC Total CO2 9.0 L* Anion Gap POC Anion Gap 25.0 H POC BUN 38 H BUN Creatinine POC Creatinine 0.9 GFR Calculation Glucose POC Glucose > 700 H* Osmolality Uric Acid Calcium POC WB Ioniz Calcium 1.07 L Phosphorus Magnesium Total Bilirubin Direct Bilirubin GGT AST ALT Alkaline Phosphatase Lactate Dehydrogenase Total Protein Albumin Globulin Albumin/Globulin Ratio Triglycerides Beta-Hydroxybutyrate Procalcitonin Urine Color Yellow Urine Appearance Cloudy A Urine pH 5.0 Ur Specific [place] 1.020 Urine Protein Negative Urine Glucose (UA) >=500 A Urine Ketones 80 A Urine Occult Blood 0.20 Urine Nitrate Negative Urine Bilirubin Negative Urine Urobilinogen Negative Ur Leukocyte Esterase 500 A Urine RBC 8 H Urine WBC > 182 H Ur Squamous Epith Cells 2 Urine Bacteria None Urine Mucus Few A Ur Culture Indicated? yes 02/25/23 02/25/23 02/25/23 15:54 15:54 15:54 WBC RBC Hgb Hct POC Hct MCV MCH MCHC RDW Plt Count MPV Immature Gran % (Auto) Neut % (Auto) Lymph % (Auto) [place] % (Auto) Eos % (Auto) Baso % (Auto) Lymph # (Auto) [place] # (Auto) Eos # (Auto) Baso # (Auto) Immature Gran # Absolute Neutrophils POC VBG pH POC VBG pCO2 at Temp POC VBG pO2 POC VBG HCO3 POC VBG Total CO2 POC Venous O2 Sat POC VBG Base Excess VBG Lactic Acid POC Sodium Sodium 124 L POC Potassium Potassium 5.2 H POC Chloride Chloride 84 L Carbon Dioxide 5 L* POC Total CO2 Anion Gap 35.0 H POC Anion Gap POC BUN BUN 40 H Creatinine 1.3 H POC Creatinine GFR Calculation 39 Glucose 788 H* POC Glucose Osmolality 330 H Uric Acid 10.4 H Calcium 8.7 POC WB Ioniz Calcium Phosphorus 4.9 H Magnesium 2.0 Total Bilirubin 0.6 Direct Bilirubin 0.3 H GGT 61 H AST 25 ALT 25 Alkaline Phosphatase 266 H Lactate Dehydrogenase 222 Total Protein 6.9 Albumin 4.0 Globulin 2.9 Albumin/Globulin Ratio 1.4 Triglycerides 278 H Beta-Hydroxybutyrate Procalcitonin 0.12 H Urine Color Urine Appearance Urine pH Ur Specific [place] Urine Protein Urine Glucose (UA) Urine Ketones Urine Occult Blood Urine Nitrate Urine Bilirubin Urine Urobilinogen Ur Leukocyte Esterase Urine RBC Urine WBC Ur Squamous Epith Cells Urine Bacteria Urine Mucus Ur Culture Indicated? 02/25/23 02/25/23 15:54 15:54 WBC 10.0 RBC 4.02 Hgb 11.8 Hct 38.1 POC Hct MCV 94.8 MCH 29.4 MCHC 31.0 RDW 15.4 H Plt Count 303 MPV 10.3 Immature Gran % (Auto) 0.5 Neut % (Auto) 79.8 H Lymph % (Auto) 16.1 [place] % (Auto) 3.2 Eos % (Auto) 0.1 Baso % (Auto) 0.3 Lymph # (Auto) 1.61 [place] # (Auto) 0.32 Eos # (Auto) 0.01 Baso # (Auto) 0.03 Immature Gran # 0.05 Absolute Neutrophils 7.97 POC VBG pH POC VBG pCO2 at Temp POC VBG pO2 POC VBG HCO3 POC VBG Total CO2 POC Venous O2 Sat POC VBG Base Excess VBG Lactic Acid POC Sodium Sodium POC Potassium Potassium POC Chloride Chloride Carbon Dioxide POC Total CO2 Anion Gap POC Anion Gap POC BUN BUN Creatinine POC Creatinine GFR Calculation Glucose POC Glucose Osmolality Uric Acid Calcium POC WB Ioniz Calcium Phosphorus Magnesium Total Bilirubin 0.7 Direct Bilirubin 0.3 H GGT AST 24 ALT 23 Alkaline Phosphatase 276 H Lactate Dehydrogenase Total Protein 7.2 Albumin 3.9 Globulin 3.3 Albumin/Globulin Ratio Triglycerides Beta-Hydroxybutyrate 8.23 H Procalcitonin Urine Color Urine Appearance Urine pH Ur Specific [place] Urine Protein Urine Glucose (UA) Urine Ketones Urine Occult Blood Urine Nitrate Urine Bilirubin Urine Urobilinogen Ur Leukocyte Esterase Urine RBC Urine WBC Ur Squamous Epith Cells Urine Bacteria Urine Mucus Ur Culture Indicated? Discharge Plan Patient/Caregiver Discharge Instructions Activity: increase activity as tolerated Diet: Consistent Carbohydrate Activity Restrictions/Additional Instructions: To have follow up for black spots on left foot with wound care or Dr Rajat Padilla. Prescriptions: Continued albuterol sulfate [ProAir HFA] 90 mcg/actuation HFA aerosol inhaler 2 puff inhalation .q4-6h PRN (Reason: cough, shortness of breath, wheezing) Qty: 8.5 0RF Rx Instructions: administer with spacer insulin degludec [Tresiba U-100 Insulin] 100 unit/mL solution 23 unit subcut BID 30 Days Qty: 13.8 0RF oxycodone 5 mg tablet 5 mg PO BID PRN (Reason: breakthrough pain) Qty: 20 0RF gabapentin 400 mg capsule 400 mg PO QIDP PRN (Reason: Pain) Qty: 120 0RF tramadol 50 mg tablet 50 mg PO Q8H PRN (Reason: pain) Qty: 20 0RF trazodone 100 mg tablet 100 mg PO HSP betamethasone valerate 0.1 % ointment 1 applic topical BID PRN melatonin 1 mg tablet 4 mg PO HS PRN zinc 50mg, magnesium 500mg PO ibuprofen 200 mg tablet 200 mg PO Q6H PRN hylands leg cramps, [id number] PO PRN aspirin 81 mg tablet,delayed release (DR/EC) 81 mg PO QDAY Qty: 90 3RF atorvastatin [Lipitor] 40 mg tablet 40 mg PO QDAY Qty: 60 0RF cholecalciferol (vitamin D3) [Vitamin D3] 50 mcg (2,000 unit) capsule 100 mcg PO DAILY levothyroxine 125 mcg tablet 1 tab PO QAM (DME) True Metrix Glucose Test Strip Strip 1 strip MISCELLANEOUS QID hyoscyamine sulfate 0.125 mg tablet,disintegrating 0.125 mg sublingual Q6HP PRN (Reason: muscle spasm) diphenhydramine HCl [Sleep Aid (diphenhydramine)] 50 mg Capsule 50 mg PO QHS propranolol 10 mg tablet 10 mg PO TID Zenpep 40,000-126,000- 168,000 unit capsule,delayed release(DR/EC) 1 cap PO TIDCC insulin aspart U-100 [Novolog FlexPen U-100 Insulin] 100 unit/mL (3 mL) insulin pen See Rx Instructions .ROUTE .COMPLEX Rx Instructions: see original instructions Follow Up Plan Follow up with: Eugenio March MD [Primary Care Provider] - Patient Disposition: Xfer SNF Prognosis: Undetermined Rehab Potential: Fair I certify that the patient requires SNF services: Yes Overall status at discharge: patient is progressing back to baseline QUALITY VTE Deep Vein Thrombosis/Pulmonary Embolism Present on Admission: No
[2023-02-26] MEDS: AMYLASE PO SCH ×2 (12:44→14:45)
[2023-02-26] MEDS: LIPASE PO SCH ×2 (12:44→14:45)
[2023-02-26] MEDS: PROTEASE PO SCH ×2 (12:44→14:45)
[2023-02-26] MEDS ORDERED: VANCOMYCIN PER PHARMACY IV SCH (13:23)
--- NOTE | 2023-02-26 14:00 | EKG ---
[facility] Test Date: 2023-02-25 Pat Name: Tennille Castillo Department: ED Room: Gender: Female Theatrical Agent: : [id number] Requested By: Machelle Lucia Order Number: [id number] Reading MD: Grecia Duarte Measurements Intervals [place] Rate: 93 P: 64 DE: 160 QRS: 32 QRSD: 85 T: 87 QT: 382 QTc: 475 Interpretive Statements Sinus rhythm Nonspecific ST/T changes Compared to 01/03/23, no significant change Electronically Signed On 02-26-2023 13:59:52 PDT by Grecia Duarte /store/[email or web address]/[id number]
[2023-02-26] MEDS: VANCOMYCIN 1,000 MG in 0.9 % SODIUM CHLORIDE 250 ML IV SCH ×2 (14:43→23:19)
[2023-02-26] MEDS: oxyCODONE IR 5 MG TABLET PO PRN (19:19)
[2023-02-26] MEDS: traZODone HCL 100 MG TABLET PO SCH (20:27)
[2023-02-26] MEDS: GABAPENTIN 400 MG CAPSULE PO PRN (20:27)
[2023-02-27] MEDS: oxyCODONE IR 5 MG TABLET PO PRN ×3 (02:06→11:00)
[2023-02-27] MEDS: 0.9 % SODIUM CHLORIDE 10 ML SYRINGE IV SCH ×3 (05:58→22:53)
[2023-02-27] MEDS: LIPASE PO SCH ×3 (07:16→16:42)
[2023-02-27] MEDS: AMYLASE PO SCH ×3 (07:16→16:42)
[2023-02-27] MEDS: PROTEASE PO SCH ×3 (07:16→16:42)
[2023-02-27] MEDS: LEVOTHYROXINE 125 MCG TABLET PO SCH (07:16)
--- NOTE | 2023-02-27 07:30 | Internal Med Progress Note ---
SUBJECTIVE Subjective Patient information: Note initiated : 02/27/23 at 7:24 am Service Date, if different from initiated Date: [] Patient: Tennille Castillo a 77 y/o F admitted on 02/25/23 for blood sugar over 550./ severe DKA, encephalopathy. Chief Complaint: [] Interval history: History of present illness: Ms. Castillo is a 77 year old F Presents to the ED after her plant technician called EMS because she was weak and confused. EMS arrived her blood sugar was greater than 550. Patient has caregivers twice weekly. She says she thinks she has been feeling ill for the past few days with increased confusion and weakness. She does not recall Her last dose of insulin taken. Patient is a poor historian. There has been concern each admission that she is not safe at home to take care of herself and she has been at rehabs but then is eventually discharged home. I think long-term care has been more issue of insurance related. Patient has headache but denies fever chills nausea vomiting abdominal pain. Work-up in the ED revealed a mild tachycardia. Elevated beta hydroxybutyric acid 8. Lactate 3.4. Elevated BUN to creatinine ratio. And most notably her VBG showed a pH of 7.19 and on chemistry her cosso-lc-fiat bicarb was 9. Pending the rest of the chemistry panel. Jqbja-pn-ssoh glucose was greater than 700 and awaiting the actual level from the chemistry panel. Jbltp-wy-vaac sodium was 124 which is not corrected for hyperglycemia. Patient started on IV fluids and insulin drip in the ED. Patient has had multiple admissions for DKA. Looks like about 6 admissions in 2021 and 4 so far in 2022. 02/26 Patient did Sleep poorly last night. Feels weak and tired. Transitioning from insulin drip to subcu insulin today monitoring closely. Continue IV fluids. Start work with PT OT Monitor electrolytes. 02/27 Patient states he did not sleep very well last night and has a history of insomnia. She has nausea vomiting this morning. Hypokalemic kalemia on lab this morning replete and trend. Hypophosphatemia replete. Review of Systems: Pertinent positives as above. Denies fever/chills/nausea/vomiting/chest or abdominal pain/cough/dyspnea/diarrhea. PHYSICAL EXAM General: Awake, No acute Distress Eyes/N/T: EOMI, no scleral icterus, Head/Neck: neck supple, full ROM, CV: RRR, 1/6SM, Pulm: Clear b/l, no wheezing/rhonchi/rales, no respiratory distress Abd: soft, nontender, +BS x4 Ext: no clubbing/cyanosis/edema, nontender Neuro: drowsy, no focal deficits, moves all extremities, , sensations intact b/l upper/lower Psychiatric: Skin: warm/dry, normal color Constitutional Vitals: Vital Signs Temp Pulse Resp BP Pulse Ox O2 Del Method 97.7 F 76 16 150/69 98 Room Air 02/27/23 03:08 02/27/23 03:08 02/27/23 03:08 02/27/23 03:08 02/27/23 03:08 02/27/23 03:08 Period Temp Pulse Resp BP Sys/Rosario Pulse Ox O2 Del Method O2 Flow Rate Last 24 Hr 96.7 F-98.1 F 76-83 12-20 108-150/40-74 97-100 Room Air-Room Air Intake and Output 02/26/23 02/27/23 02/27/23 19:59 03:59 11:59 Intake Total 490 2150 Output Total 800 Balance -310 2150 Weight 67.041 kg Intake & Output: Intake & Output 02/26/23 02/27/23 02/27/23 19:59 03:59 11:59 Intake Total 490 2150 Output Total 800 Balance -310 2150 Weight 67.041 kg Intake: IV 250 1250 Sodium Chloride 0.9% 1,000 ml @ 1000 84 mls/hr IV .[id number] PEG Rx#: [id number] Vancomycin 1,000 mg In Sodium 250 250 Chloride 0.9% 250 ml @ 250 mls/ hr IV Q12H PEG Rx#:[id number] Oral 240 900 Output: Void Amount 800 Other: Meal Lunch Percent of Meal Consumed 50% Feeding Ability Independent Stool Size Moderate Small Stool Color Brown Brown Stool Consistency Soft Loose # Voids 1 # Bowel Movements 1 1 OBJ DATA Labs 02/26/23 05:19 02/27/23 05:49 Labs: Abnormal Lab Results 02/26/23 02/26/23 02/25/23 05:19 05:19 21:04 RBC 3.58 L Hgb 10.6 L Hct 31.5 L RDW 15.1 H Neut % (Auto) POC VBG pH 7.28 L POC VBG pCO2 at Temp 30.0 L POC VBG pO2 POC VBG HCO3 13.9 L POC VBG Total CO2 15.0 L POC Venous O2 Sat POC VBG Base Excess -13.0 L VBG Lactic Acid 2.6 H POC Sodium Sodium POC Potassium Potassium Chloride Carbon Dioxide 20 L POC Total CO2 Anion Gap POC Anion Gap POC BUN BUN 29 H Creatinine Glucose 161 H POC Glucose Osmolality 302 H Uric Acid 10.3 H Calcium 8.2 L POC WB Ioniz Calcium Phosphorus 2.3 L Direct Bilirubin GGT 49 H Alkaline Phosphatase 218 H Total Protein 5.7 L Triglycerides Beta-Hydroxybutyrate 1.93 H Procalcitonin Urine Appearance Urine Glucose (UA) Urine Ketones Ur Leukocyte Esterase Urine RBC Urine WBC Urine Mucus 02/25/23 02/25/23 02/25/23 16:06 15:59 15:55 RBC Hgb Hct RDW Neut % (Auto) POC VBG pH 7.19 L* POC VBG pCO2 at Temp 21.7 L POC VBG pO2 47 H POC VBG HCO3 8.4 L* POC VBG Total CO2 9.0 L POC Venous O2 Sat 74.0 H POC VBG Base Excess -20.0 L VBG Lactic Acid 3.4 H POC Sodium 124 L Sodium POC Potassium 5.2 H Potassium Chloride Carbon Dioxide POC Total CO2 9.0 L* Anion Gap POC Anion Gap 25.0 H POC BUN 38 H BUN Creatinine Glucose POC Glucose > 700 H* Osmolality Uric Acid Calcium POC WB Ioniz Calcium 1.07 L Phosphorus Direct Bilirubin GGT Alkaline Phosphatase Total Protein Triglycerides Beta-Hydroxybutyrate Procalcitonin Urine Appearance Cloudy A Urine Glucose (UA) >=500 A Urine Ketones 80 A Ur Leukocyte Esterase 500 A Urine RBC 8 H Urine WBC > 182 H Urine Mucus Few A 02/25/23 02/25/23 02/25/23 15:54 15:54 15:54 RBC Hgb Hct RDW Neut % (Auto) POC VBG pH POC VBG pCO2 at Temp POC VBG pO2 POC VBG HCO3 POC VBG Total CO2 POC Venous O2 Sat POC VBG Base Excess VBG Lactic Acid POC Sodium Sodium 124 L POC Potassium Potassium 5.2 H Chloride 84 L Carbon Dioxide 5 L* POC Total CO2 Anion Gap 35.0 H POC Anion Gap POC BUN BUN 40 H Creatinine 1.3 H Glucose 788 H* POC Glucose Osmolality 330 H Uric Acid 10.4 H Calcium POC WB Ioniz Calcium Phosphorus 4.9 H Direct Bilirubin 0.3 H GGT 61 H Alkaline Phosphatase 266 H Total Protein Triglycerides 278 H Beta-Hydroxybutyrate Procalcitonin 0.12 H Urine Appearance Urine Glucose (UA) Urine Ketones Ur Leukocyte Esterase Urine RBC Urine WBC Urine Mucus 02/25/23 02/25/23 15:54 15:54 RBC Hgb Hct RDW 15.4 H Neut % (Auto) 79.8 H POC VBG pH POC VBG pCO2 at Temp POC VBG pO2 POC VBG HCO3 POC VBG Total CO2 POC Venous O2 Sat POC VBG Base Excess VBG Lactic Acid POC Sodium Sodium POC Potassium Potassium Chloride Carbon Dioxide POC Total CO2 Anion Gap POC Anion Gap POC BUN BUN Creatinine Glucose POC Glucose Osmolality Uric Acid Calcium POC WB Ioniz Calcium Phosphorus Direct Bilirubin 0.3 H GGT Alkaline Phosphatase 276 H Total Protein Triglycerides Beta-Hydroxybutyrate 8.23 H Procalcitonin Urine Appearance Urine Glucose (UA) Urine Ketones Ur Leukocyte Esterase Urine RBC Urine WBC Urine Mucus Meds: Medications Acetaminophen (Acetaminophen 325 Mg Tablet) 650 mg PO Q4-6HP PRN PRN Reason: Fever >101 Albuterol/Ipratropium (Ipratropium/Albuterol 3 Ml Ampul.Neb) 3 ml NEB Q4HP PRN PRN Reason: Shortness Of Breath Aspirin (Aspirin 81 Mg Tab.Chew) 81 mg PO DAILY [facility] Last Admin: 02/26/23 08:19 Dose: 81 mg Atorvastatin Calcium (Atorvastatin 40 Mg Tablet) 40 mg PO QDAY [facility] Last Admin: 02/26/23 08:19 Dose: 40 mg Dextrose (Dextrose 50% 50 Ml Vial) 0 ml IV UD PRN PRN Reason: Per Sliding Scale Diagnostic Test (Pha) (Accu-Chek 1 Each Strip) 1 each FS ACHS [facility] Last Admin: 02/27/23 07:19 Dose: 1 each Docusate Sodium (Docusate Sodium 100 Mg Capsule) 100 mg PO BID [facility] Last Admin: 02/26/23 20:29 Dose: Not Given Enoxaparin Sodium (Enoxaparin 40 Mg/0.4 Ml Syringe) 40 mg SQ DAILY [facility] Last Admin: 02/26/23 08:20 Dose: Not Given Famotidine (Famotidine 20 Mg Tablet) 20 mg PO BID PEG Last Admin: 02/26/23 20:27 Dose: 20 mg Gabapentin (Gabapentin 400 Mg Capsule) 400 mg PO QIDP PRN PRN Reason: Pain Last Admin: 02/26/23 20:27 Dose: 400 mg Glucose (Dextrose 31 Gm Oral.Susp) 15 gm PO PRN PRN PRN Reason: Hypoglycemia Potassium Chloride 40 meq/ (Dextrose) 520 mls @ 130 mls/hr IV PRN PRN PRN Reason: K+ < 3.0 Magnesium Sulfate (Magnesium Sulfate) 2 gm in 50 mls @ 25 mls/hr IV PRN PRN PRN Reason: Magnesium Level </= 1.6 Insulin Human Regular 50 unit/ (Sodium Chloride) 100 mls @ 10 mls/hr IV DUR PEG; Protocol Vancomycin HCl 1,000 mg/ (Sodium Chloride) 250 mls @ 250 mls/hr IV Q12H [facility] Last Infusion: 02/27/23 00:25 Dose: Infused Insulin Glargine (Insulin Glargine, Human 1 Unit/0.01 Ml) 23 unit SQ BID [facility] Last Admin: 02/26/23 20:27 Dose: 23 units Insulin Human Lispro (Insulin Lispro 1 Unit/0.01 Ml Unit) 0 unit SQ ACHS [facility]; Protocol Last Admin: 02/26/23 21:05 Dose: 12 units Levothyroxine Sodium (Levothyroxine 125 Mcg Tablet) 125 mcg PO QAMAC [facility] Last Admin: 02/27/23 07:16 Dose: 125 mcg Ondansetron HCl (Ondansetron 4 Mg/2 Ml Vial) 4 mg IV Q4HP PRN PRN Reason: Nausea And Vomiting Last Admin: 02/27/23 07:16 Dose: 4 mg Oxycodone HCl (Oxycodone Ir 5 Mg Tablet) 5 mg PO BIDP PRN; Protocol PRN Reason: breakthrough pain Last Admin: 02/27/23 05:57 Dose: 5 mg Lipase-Protease- Amylase [Zenpep] 40, 000-126,000-168,000 Units Cap Pt Own Med 1 dose PO TIDCC [facility] Last Admin: 02/27/23 07:16 Dose: 1 dose Polyethylene Glycol (Polyethylene Glycol 3350 17 Gm Packet) 17 gm PO DAILYP PRN PRN Reason: Constipation Potassium Chloride (Potassium Chloride 20 Meq Tablet) 40 meq PO ONCE PRN PRN Reason: Potassium Level < 3 Potassium Chloride (Potassium Chloride 20 Meq Tablet) 40 meq PO UD PRN PRN Reason: Potassium Level of 3-3.5 Senna (Sennosides 1 Tablet) 2 tab PO DAILY PRN PRN Reason: Constipation Sodium Chloride (0.9 % Sodium Chloride 10 Ml Syringe) 10 ml IV Q8 [facility] Last Admin: 02/27/23 05:58 Dose: 10 ml Trazodone HCl (Trazodone Hcl 100 Mg Tablet) 100 mg PO HSP [facility] Last Admin: 02/26/23 20:27 Dose: 100 mg Vancomycin HCl (Vancomycin Per Pharmacy) 1 order IV UD PEG; Protocol A/P Narrative A/P Narrative: A: #DKA/HHS, severe: improving -multiple admission, poor self-care at home #AG Metabolic acidosis, severe; including Lactic acidosis: #DM2 Poorly controlled insulin-dependent w/neuropathy: -A1c 10.1 in December #Encephalopathy: 2/2 above #SUDARSHAN w/Volume depletion: 2/2 above, improving #Hyponatremia: resolved #Hypokalemia/hypophosphatemia: #Generalized weakness/deconditioning: #UTI(Staph aureus): BC pending to r/o seeding of urine by staph a #h/o CAD: #Anemia, chronic: #Hypothyroidism: cont levothyroxine #Chronic pancreatitis: #Hypertriglyceridemia: #chronically elevated LFT's #Essential tremor: #chr back pain: #insomnia: #Long-term prognosis quite guarded with multiple admissions and poor compliance -6 admits 2021, 4 admits this year so far Plan: -SQ basal insulin and titrate -IVF's d/c -Vanco pending UC/BC -Monitor electrolytes closely Replace as needed -Monitor renal function, avoid nephrotoxic meds -Monitor UOP/fluid balance closely -cont asa/statin -Continue home duloxetine/gabapentin -Continue her home pancreatic enzyme supplements, levothyroxine, fenofibrate -qhs snack when back on home regimen -PT/OT -CM for SNF placement, pt is not able to consistently care for herself at home even with twice weekly caregivers. -DVT prophylaxis: lovenox / H2 CODE STATUS: DNR Time Spent With Patient Time: Total time spent is greater than 50% in coordination of care (as documented) at patient's floor/unit and/or counseling patient: Subsequent: Total time with patient: 50 - 65 Minutes QUALITY VTE Deep Vein Thrombosis/Pulmonary Embolism Present on Admission: No
[2023-02-27] MEDS: INSULIN LISPRO 1 UNIT/0.01 ML UNIT SQ SCH ×5 (08:06→23:55)
[2023-02-27 08:32] LABS: ALT/SGPT 22 U/L (<40); AST/SGOT 46 U/L (<32); Albumin 2.9 gm/dL (3.2-5.2); Albumin/Globulin Ratio 1.3 (1.0-2.3); Alkaline Phosphatase 185 U/L (39-117); Bilirubin,Direct < 0.2 mg/dL (0-0.3); Bilirubin,Total 0.2 mg/dL (0.1-1.0); Blood Urea Nitrogen 11 mg/dL (8-23); Calcium 7.9 mg/dL (8.6-10.4); Carbon Dioxide 20 mmol/L (22-30); Chloride 108 mmol/L (96-108); Globulin 2.2 gm/dL (2.2-3.7); Glomerular Filtration Rate 93; Glucose 162 mg/dL (70-105); Lactate Dehydrogenase 185 U/L (135-225); Phosphorous 1.5 mg/dL (2.5-4.5); Triglycerides 73 mg/dL (<150); Uric Acid 6.5 mg/dL (2.5-8.0)
[2023-02-27] MEDS: ENOXAPARIN 40 MG/0.4 ML SYRINGE SQ SCH (08:41)
[2023-02-27] MEDS: ATORVASTATIN 40 MG TABLET PO SCH (08:41)
[2023-02-27] MEDS: ASPIRIN 81 MG TAB.CHEW PO SCH (08:41)
[2023-02-27] MEDS: FAMOTIDINE 20 MG TABLET PO SCH ×2 (08:41→20:54)
[2023-02-27] MEDS: DOCUSATE SODIUM 100 MG CAPSULE PO SCH ×2 (08:42→22:52)
[2023-02-27] MEDS: INSULIN GLARGINE, HUMAN 1 UNIT/0.01 ML SQ SCH ×2 (08:42→20:55)
[2023-02-27] MEDS: VANCOMYCIN 1,000 MG in 0.9 % SODIUM CHLORIDE 250 ML IV SCH ×2 (09:39→22:52)
[2023-02-27] MEDS: PHOSPHORUS 250 MG TABLET PO SCH ×4 (09:39→20:55)
[2023-02-27] MEDS ORDERED: PROMETHAZINE 25 MG/ML VIAL IV PRN (10:44)
[2023-02-27] MEDS: LEVOFLOXACIN 500 MG TABLET PO SCH (12:41)
[2023-02-27] MEDS: GABAPENTIN 400 MG CAPSULE PO PRN (20:11)
[2023-02-27] MEDS: diphenhydrAMINE 25 MG CAPSULE PO SCH (20:54)
[2023-02-27] MEDS: MELATONIN 3 MG TABLET PO SCH (20:55)
[2023-02-27] MEDS: traZODone HCL 100 MG TABLET PO SCH (20:55)
[2023-02-28] MEDS: INSULIN LISPRO 1 UNIT/0.01 ML UNIT SQ SCH ×5 (04:13→21:00)
[2023-02-28] MEDS: 0.9 % SODIUM CHLORIDE 10 ML SYRINGE IV SCH ×3 (04:14→21:01)
[2023-02-28 07:06] LABS: ALT/SGPT 52 U/L (<40); AST/SGOT 140 U/L (<32); Albumin 2.7 gm/dL (3.2-5.2); Albumin/Globulin Ratio 1.2 (1.0-2.3); Alkaline Phosphatase 176 U/L (39-117); Bilirubin,Direct < 0.2 mg/dL (0-0.3); Bilirubin,Total 0.2 mg/dL (0.1-1.0); Blood Urea Nitrogen 8 mg/dL (8-23); Calcium 8.2 mg/dL (8.6-10.4); Carbon Dioxide 23 mmol/L (22-30); Chloride 112 mmol/L (96-108); Globulin 2.2 gm/dL (2.2-3.7); Glomerular Filtration Rate 93; Glucose 94 mg/dL (70-105); Lactate Dehydrogenase 215 U/L (135-225); Phosphorous 2.5 mg/dL (2.5-4.5); Triglycerides 89 mg/dL (<150); Uric Acid 5.4 mg/dL (2.5-8.0)
--- NOTE | 2023-02-28 07:14 | Internal Med Progress Note ---
SUBJECTIVE Subjective Patient information: Note initiated : 02/28/23 at 7:13 am Service Date, if different from initiated Date: [] Patient: Tennille Castillo a 77 y/o F admitted on 02/25/23 for blood sugar over 550./ severe DKA, encephalopathy. Chief Complaint: [] Interval history: History of present illness: Ms. Castillo is a 77 year old F Presents to the ED after her ct technician called EMS because she was weak and confused. EMS arrived her blood sugar was greater than 550. Patient has caregivers twice weekly. She says she thinks she has been feeling ill for the past few days with increased confusion and weakness. She does not recall Her last dose of insulin taken. Patient is a poor historian. There has been concern each admission that she is not safe at home to take care of herself and she has been at rehabs but then is eventually discharged home. I think long-term care has been more issue of insurance related. Patient has headache but denies fever chills nausea vomiting abdominal pain. Work-up in the ED revealed a mild tachycardia. Elevated beta hydroxybutyric acid 8. Lactate 3.4. Elevated BUN to creatinine ratio. And most notably her VBG showed a pH of 7.19 and on chemistry her utthe-ri-pjlv bicarb was 9. Pending the rest of the chemistry panel. Hjklk-wz-rtsk glucose was greater than 700 and awaiting the actual level from the chemistry panel. Cojrf-ty-cnjc sodium was 124 which is not corrected for hyperglycemia. Patient started on IV fluids and insulin drip in the ED. Patient has had multiple admissions for DKA. Looks like about 6 admissions in 2021 and 4 so far in 2022. 02/26 Patient did Sleep poorly last night. Feels weak and tired. Transitioning from insulin drip to subcu insulin today monitoring closely. Continue IV fluids. Start work with PT OT Monitor electrolytes. 02/27 Patient states he did not sleep very well last night and has a history of insomnia. She has nausea vomiting this morning. Hypokalemic kalemia on lab this morning replete and trend. Hypophosphatemia replete. 02/28 Mild hypokalemia, improving. Patient seems to have a bit more severe dinner this morning. Adjusting insulin regimen. Review of Systems: Pertinent positives as above. Denies fever/chills/nausea/vomiting/chest or abdominal pain/cough/dyspnea/diarrhea. PHYSICAL EXAM General: Awake, No acute Distress Eyes/N/T: EOMI, no scleral icterus, Head/Neck: neck supple, full ROM, CV: RRR, 2/6SM, Pulm: Clear b/l, no wheezing/rhonchi/rales, no respiratory distress Abd: soft, nontender, +BS x4 Ext: no clubbing/cyanosis/edema, nontender Neuro: alert, no focal deficits, moves all extremities, , sensations intact b/l upper/lower Psychiatric: Skin: warm/dry, normal color Constitutional Vitals: Vital Signs Temp Pulse Resp BP Pulse Ox O2 Del Method 97.7 F 71 16 140/60 100 Room Air 02/28/23 04:09 02/28/23 04:09 02/28/23 04:09 02/28/23 04:09 02/28/23 04:09 02/28/23 04:09 Period Temp Pulse Resp BP Sys/Rosario Pulse Ox O2 Del Method O2 Flow Rate Last 24 Hr 97.5 F-98.3 F 69-80 12-18 114-156/46-77 95-100 Room Air-Room Air Intake and Output 02/27/23 02/28/23 02/28/23 19:59 03:59 11:59 Intake Total 940 200 Output Total 0 Balance 940 200 Weight 68.266 kg Intake & Output: Intake & Output 02/27/23 02/28/23 02/28/23 19:59 03:59 11:59 Intake Total 940 200 Output Total 0 Balance 940 200 Weight 68.266 kg Intake: IV 520 Potassium Chloride 40 Meq In 520 Dextrose 5% in Water 500 ml @ 130 mls/hr IV PRN PRN Rx#: [id number] Oral 420 200 Output: Void Amount 0 Other: Meal Lunch Percent of Meal Consumed 100% # Voids 1 OBJ DATA Labs 02/26/23 05:19 02/28/23 05:39 Labs: Abnormal Lab Results 02/28/23 02/27/23 02/26/23 05:39 05:49 05:19 RBC Hgb Hct RDW Neut % (Auto) POC VBG pH POC VBG pCO2 at Temp POC VBG pO2 POC VBG HCO3 POC VBG Total CO2 POC Venous O2 Sat POC VBG Base Excess VBG Lactic Acid POC Sodium Sodium POC Potassium Potassium 3.2 L 2.9 L* Chloride 112 H Carbon Dioxide 20 L 20 L POC Total CO2 Anion Gap 7.0 L POC Anion Gap POC BUN BUN 29 H Creatinine 0.5 L 0.5 L Glucose 162 H 161 H POC Glucose Osmolality 302 H Uric Acid 10.3 H Calcium 8.2 L 7.9 L 8.2 L POC WB Ioniz Calcium Phosphorus 1.5 L 2.3 L Direct Bilirubin GGT 63 H 44 H 49 H AST 140 H 46 H ALT 52 H Alkaline Phosphatase 176 H 185 H 218 H Total Protein 4.9 L 5.1 L 5.7 L Albumin 2.7 L 2.9 L Triglycerides Beta-Hydroxybutyrate 1.93 H Procalcitonin Urine Appearance Urine Glucose (UA) Urine Ketones Ur Leukocyte Esterase Urine RBC Urine WBC Urine Mucus 02/26/23 02/25/23 02/25/23 05:19 21:04 16:06 RBC 3.58 L Hgb 10.6 L Hct 31.5 L RDW 15.1 H Neut % (Auto) POC VBG pH 7.28 L POC VBG pCO2 at Temp 30.0 L POC VBG pO2 POC VBG HCO3 13.9 L POC VBG Total CO2 15.0 L POC Venous O2 Sat POC VBG Base Excess -13.0 L VBG Lactic Acid 2.6 H POC Sodium Sodium POC Potassium Potassium Chloride Carbon Dioxide POC Total CO2 Anion Gap POC Anion Gap POC BUN BUN Creatinine Glucose POC Glucose Osmolality Uric Acid Calcium POC WB Ioniz Calcium Phosphorus Direct Bilirubin GGT AST ALT Alkaline Phosphatase Total Protein Albumin Triglycerides Beta-Hydroxybutyrate Procalcitonin Urine Appearance Cloudy A Urine Glucose (UA) >=500 A Urine Ketones 80 A Ur Leukocyte Esterase 500 A Urine RBC 8 H Urine WBC > 182 H Urine Mucus Few A 02/25/23 02/25/23 02/25/23 15:59 15:55 15:54 RBC Hgb Hct RDW Neut % (Auto) POC VBG pH 7.19 L* POC VBG pCO2 at Temp 21.7 L POC VBG pO2 47 H POC VBG HCO3 8.4 L* POC VBG Total CO2 9.0 L POC Venous O2 Sat 74.0 H POC VBG Base Excess -20.0 L VBG Lactic Acid 3.4 H POC Sodium 124 L Sodium POC Potassium 5.2 H Potassium Chloride Carbon Dioxide POC Total CO2 9.0 L* Anion Gap POC Anion Gap 25.0 H POC BUN 38 H BUN Creatinine Glucose POC Glucose > 700 H* Osmolality 330 H Uric Acid Calcium POC WB Ioniz Calcium 1.07 L Phosphorus Direct Bilirubin GGT AST ALT Alkaline Phosphatase Total Protein Albumin Triglycerides Beta-Hydroxybutyrate Procalcitonin Urine Appearance Urine Glucose (UA) Urine Ketones Ur Leukocyte Esterase Urine RBC Urine WBC Urine Mucus 02/25/23 02/25/23 02/25/23 15:54 15:54 15:54 RBC Hgb Hct RDW 15.4 H Neut % (Auto) 79.8 H POC VBG pH POC VBG pCO2 at Temp POC VBG pO2 POC VBG HCO3 POC VBG Total CO2 POC Venous O2 Sat POC VBG Base Excess VBG Lactic Acid POC Sodium Sodium 124 L POC Potassium Potassium 5.2 H Chloride 84 L Carbon Dioxide 5 L* POC Total CO2 Anion Gap 35.0 H POC Anion Gap POC BUN BUN 40 H Creatinine 1.3 H Glucose 788 H* POC Glucose Osmolality Uric Acid 10.4 H Calcium POC WB Ioniz Calcium Phosphorus 4.9 H Direct Bilirubin 0.3 H GGT 61 H AST ALT Alkaline Phosphatase 266 H Total Protein Albumin Triglycerides 278 H Beta-Hydroxybutyrate Procalcitonin 0.12 H Urine Appearance Urine Glucose (UA) Urine Ketones Ur Leukocyte Esterase Urine RBC Urine WBC Urine Mucus 02/25/23 15:54 RBC Hgb Hct RDW Neut % (Auto) POC VBG pH POC VBG pCO2 at Temp POC VBG pO2 POC VBG HCO3 POC VBG Total CO2 POC Venous O2 Sat POC VBG Base Excess VBG Lactic Acid POC Sodium Sodium POC Potassium Potassium Chloride Carbon Dioxide POC Total CO2 Anion Gap POC Anion Gap POC BUN BUN Creatinine Glucose POC Glucose Osmolality Uric Acid Calcium POC WB Ioniz Calcium Phosphorus Direct Bilirubin 0.3 H GGT AST ALT Alkaline Phosphatase 276 H Total Protein Albumin Triglycerides Beta-Hydroxybutyrate 8.23 H Procalcitonin Urine Appearance Urine Glucose (UA) Urine Ketones Ur Leukocyte Esterase Urine RBC Urine WBC Urine Mucus Meds: Medications Acetaminophen (Acetaminophen 325 Mg Tablet) 650 mg PO Q4-6HP PRN PRN Reason: Fever >101 Albuterol/Ipratropium (Ipratropium/Albuterol 3 Ml Ampul.Neb) 3 ml NEB Q4HP PRN PRN Reason: Shortness Of Breath Aspirin (Aspirin 81 Mg Tab.Chew) 81 mg PO DAILY PEG Last Admin: 02/27/23 08:41 Dose: 81 mg Atorvastatin Calcium (Atorvastatin 40 Mg Tablet) 40 mg PO QDAY [facility] Last Admin: 02/27/23 08:41 Dose: 40 mg Dextrose (Dextrose 50% 50 Ml Vial) 0 ml IV UD PRN PRN Reason: Per Sliding Scale Diagnostic Test (Pha) (Accu-Chek 1 Each Strip) 1 each FS Q4 [facility] Last Admin: 02/28/23 04:13 Dose: 1 each Diphenhydramine HCl (Diphenhydramine 25 Mg Capsule) 25 mg PO HS [facility] Last Admin: 02/27/23 20:54 Dose: 25 mg Docusate Sodium (Docusate Sodium 100 Mg Capsule) 100 mg PO BID [facility] Last Admin: 02/27/23 22:52 Dose: Not Given Enoxaparin Sodium (Enoxaparin 40 Mg/0.4 Ml Syringe) 40 mg SQ DAILY [facility] Last Admin: 02/27/23 08:41 Dose: 40 mg Famotidine (Famotidine 20 Mg Tablet) 20 mg PO BID [facility] Last Admin: 02/27/23 20:54 Dose: 20 mg Gabapentin (Gabapentin 400 Mg Capsule) 400 mg PO QIDP PRN PRN Reason: Pain Last Admin: 02/27/23 20:11 Dose: 400 mg Glucose (Dextrose 31 Gm Oral.Susp) 15 gm PO PRN PRN PRN Reason: Hypoglycemia Potassium Chloride 40 meq/ (Dextrose) 520 mls @ 130 mls/hr IV PRN PRN PRN Reason: K+ < 3.0 Last Infusion: 02/27/23 18:02 Dose: Infused Magnesium Sulfate (Magnesium Sulfate) 2 gm in 50 mls @ 25 mls/hr IV PRN PRN PRN Reason: Magnesium Level </= 1.6 Insulin Human Regular 50 unit/ (Sodium Chloride) 100 mls @ 10 mls/hr IV DUR PEG; Protocol Insulin Glargine (Insulin Glargine, Human 1 Unit/0.01 Ml) 28 unit SQ BID [facility] Last Admin: 02/27/23 20:55 Dose: 28 units Insulin Human Lispro (Insulin Lispro 1 Unit/0.01 Ml Unit) 0 unit SQ Q4 [facility]; Protocol Last Admin: 02/28/23 04:13 Dose: Not Given Levofloxacin (Levofloxacin 500 Mg Tablet) 250 mg PO DAILY [facility]; Protocol Last Admin: 02/27/23 12:41 Dose: 250 mg Levothyroxine Sodium (Levothyroxine 125 Mcg Tablet) 125 mcg PO QAMAC [facility] Last Admin: 02/27/23 07:16 Dose: 125 mcg Melatonin (Melatonin 3 Mg Tablet) 3 mg PO QHS [facility] Last Admin: 02/27/23 20:55 Dose: 3 mg Ondansetron HCl (Ondansetron 4 Mg/2 Ml Vial) 4 mg IV Q4HP PRN PRN Reason: Nausea And Vomiting Last Admin: 02/27/23 07:16 Dose: 4 mg Oxycodone HCl (Oxycodone Ir 5 Mg Tablet) 5 mg PO BIDP PRN; Protocol PRN Reason: breakthrough pain Last Admin: 02/27/23 11:00 Dose: 5 mg Lipase-Protease- Amylase [Zenpep] 40, 000-126,000-168,000 Units Cap Pt Own Med 1 dose PO TIDCC [facility] Last Admin: 02/27/23 16:42 Dose: 1 dose Polyethylene Glycol (Polyethylene Glycol 3350 17 Gm Packet) 17 gm PO DAILYP PRN PRN Reason: Constipation Potassium Chloride (Potassium Chloride 20 Meq Tablet) 40 meq PO ONCE PRN PRN Reason: Potassium Level < 3 Last Admin: 02/27/23 08:42 Dose: 40 meq Potassium Chloride (Potassium Chloride 20 Meq Tablet) 40 meq PO UD PRN PRN Reason: Potassium Level of 3-3.5 Promethazine HCl (Promethazine 25 Mg/Ml Vial) 12.5 mg IV Q4-6HP PRN PRN Reason: Nausea And Vomiting Last Admin: 02/27/23 11:00 Dose: 12.5 mg Senna (Sennosides 1 Tablet) 2 tab PO DAILY PRN PRN Reason: Constipation Sodium Chloride (0.9 % Sodium Chloride 10 Ml Syringe) 10 ml IV Q8 [facility] Last Admin: 02/28/23 04:14 Dose: 10 ml Trazodone HCl (Trazodone Hcl 100 Mg Tablet) 100 mg PO HSP [facility] Last Admin: 02/27/23 20:55 Dose: 100 mg A/P Narrative A/P Narrative: A: #DKA/HHS, severe: improved -multiple admission, poor self-care at home #AG Metabolic acidosis, severe; including Lactic acidosis: #DM2 Poorly controlled insulin-dependent w/neuropathy: -A1c 10.1 in December #Encephalopathy: 2/2 above #SUDARSHAN w/Volume depletion: 2/2 above, improving #Hyponatremia: resolved #Hypokalemia/hypophosphatemia: #Generalized weakness/deconditioning: #UTI(MSSA): BC pending to r/o seeding of urine by mir a #h/o CAD: #Anemia, chronic: #Hypothyroidism: cont levothyroxine #Chronic pancreatitis: #Hypertriglyceridemia: #chronically elevated LFT's #Essential tremor: #chr back pain: #insomnia: #Long-term prognosis quite guarded with multiple admissions and poor compliance -6 admits 2021, 4 admits this year so far Plan: -SQ basal insulin and titrate -Abx for uti, BC pending -Monitor electrolytes closely Replace as needed -Monitor renal function, avoid nephrotoxic meds -Monitor UOP/fluid balance closely -cont asa/statin -Continue home duloxetine/gabapentin -Continue her home pancreatic enzyme supplements, levothyroxine, fenofibrate -qhs snack when back on home regimen -PT/OT -CM for SNF placement, pt is not able to consistently care for herself at home even with twice weekly caregivers. -DVT prophylaxis: lovenox / H2 CODE STATUS: DNR Time Spent With Patient Time: Total time spent is greater than 50% in coordination of care (as documented) at patient's floor/unit and/or counseling patient: Subsequent: Total time with patient: 35 - 49 minutes QUALITY VTE Deep Vein Thrombosis/Pulmonary Embolism Present on Admission: No
[2023-02-28] MEDS ORDERED: POTASSIUM CHLORIDE 20 MEQ TABLET PO ONE (07:15)
[2023-02-28] MEDS: LIPASE PO SCH ×3 (07:49→17:09)
[2023-02-28] MEDS: PROTEASE PO SCH ×3 (07:49→17:09)
[2023-02-28] MEDS: AMYLASE PO SCH ×3 (07:49→17:09)
[2023-02-28] MEDS: LEVOTHYROXINE 125 MCG TABLET PO SCH (07:49)
[2023-02-28] MEDS: LEVOFLOXACIN 500 MG TABLET PO SCH (08:48)
[2023-02-28] MEDS: ENOXAPARIN 40 MG/0.4 ML SYRINGE SQ SCH (08:48)
[2023-02-28] MEDS: FAMOTIDINE 20 MG TABLET PO SCH ×2 (08:49→21:01)
[2023-02-28] MEDS: DOCUSATE SODIUM 100 MG CAPSULE PO SCH ×2 (08:49→21:01)
[2023-02-28] MEDS: ASPIRIN 81 MG TAB.CHEW PO SCH (08:49)
[2023-02-28] MEDS: ATORVASTATIN 40 MG TABLET PO SCH (08:49)
[2023-02-28] MEDS: oxyCODONE IR 5 MG TABLET PO PRN ×2 (09:32→21:13)
[2023-02-28] MEDS: INSULIN GLARGINE, HUMAN 1 UNIT/0.01 ML SQ SCH ×2 (09:33→21:00)
[2023-02-28] MEDS: diphenhydrAMINE 25 MG CAPSULE PO SCH (21:01)
[2023-02-28] MEDS: MELATONIN 3 MG TABLET PO SCH (21:01)
[2023-03-01] MEDS: traZODone HCL 100 MG TABLET PO SCH ×2 (02:23→20:26)
--- NOTE | 2023-03-01 07:29 | Internal Med Progress Note ---
SUBJECTIVE Subjective Patient information: Note initiated : 03/01/23 at 7:27 am Service Date, if different from initiated Date: [] Patient: Tennille Castillo a 77 y/o F admitted on 02/25/23 for blood sugar over 550./ severe DKA, encephalopathy. Chief Complaint: [] Interval history: History of present illness: Ms. 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 EMS arrived her blood sugar was greater than 550. Patient has caregivers twice weekly. She says she thinks she has been feeling ill for the past few days with increased confusion and weakness. She does not recall Her last dose of insulin taken. Patient is a poor historian. There has been concern each admission that she is not safe at home to take care of herself and she has been at rehabs but then is eventually discharged home. I think long-term care has been more issue of insurance related. Patient has headache but denies fever chills nausea vomiting abdominal pain. Work-up in the ED revealed a mild tachycardia. Elevated beta hydroxybutyric acid 8. Lactate 3.4. Elevated BUN to creatinine ratio. And most notably her VBG showed a pH of 7.19 and on chemistry her bfgag-rx-woxi bicarb was 9. Pending the rest of the chemistry panel. Hupiv-cz-yxwl glucose was greater than 700 and awaiting the actual level from the chemistry panel. Jbfmi-lu-xrbt sodium was 124 which is not corrected for hyperglycemia. Patient started on IV fluids and insulin drip in the ED. Patient has had multiple admissions for DKA. Looks like about 6 admissions in 2021 and 4 so far in 2022. 02/26 Patient did Sleep poorly last night. Feels weak and tired. Transitioning from insulin drip to subcu insulin today monitoring closely. Continue IV fluids. Start work with PT OT Monitor electrolytes. 02/27 Patient states he did not sleep very well last night and has a history of insomnia. She has nausea vomiting this morning. Hypokalemic kalemia on lab this morning replete and trend. Hypophosphatemia replete. 02/28 Mild hypokalemia, improving. Patient seems to have a bit more severe dinner this morning. Adjusting insulin regimen. 03/01 No overnight events. Patient does complain of her chronic lower back pain. We will try heating pads Robaxin and Tylenol. monitoring sugars for any further insulin changes. Review of Systems: Pertinent positives as above. Denies fever/chills/nausea/vomiting/chest or abdominal pain/cough/dyspnea/diarrhea. PHYSICAL EXAM General: Awake, No acute Distress Eyes/N/T: EOMI, no scleral icterus, Head/Neck: neck supple, full ROM, CV: RRR, 2/6SM, Pulm: Clear b/l, no wheezing/rhonchi/rales, no respiratory distress Abd: soft, nontender, +BS x4 Ext: no clubbing/cyanosis/edema, nontender Neuro: alert, no focal deficits, moves all extremities, , sensations intact b/l upper/lower Psychiatric: Skin: warm/dry, normal color Constitutional Vitals: Vital Signs Temp Pulse Resp BP Pulse Ox O2 Del Method 98.1 F 67 14 130/60 99 Room Air 03/01/23 04:11 03/01/23 04:11 03/01/23 04:11 03/01/23 04:11 03/01/23 04:11 03/01/23 04:11 Period Temp Pulse Resp BP Sys/Rosario Pulse Ox O2 Del Method O2 Flow Rate Last 24 Hr 97.4 F-98.2 F 65-80 14-18 118-157/54-77 95-99 Room Air-Room Air Intake and Output 02/28/23 03/01/23 03/01/23 19:59 03:59 11:59 Intake Total 1760 1100 Output Total 1500 Balance 1760 -400 Weight 68.039 kg Intake & Output: Intake & Output 02/28/23 03/01/23 03/01/23 19:59 03:59 11:59 Intake Total 1760 1100 Output Total 1500 Balance 1760 -400 Weight 68.039 kg Intake: Oral 1760 1100 Output: Void Amount 1500 Other: Meal Lunch krista crackers and peanut butter Percent of Meal Consumed 100% 100% Feeding Ability Independent Urine Appearance Clear Urine Color Yellow # Voids 1 OBJ DATA Labs 02/26/23 05:19 02/28/23 05:39 Labs: Abnormal Lab Results 02/28/23 02/27/23 02/26/23 05:39 05:49 05:19 Potassium 3.2 L 2.9 L* Chloride 112 H Carbon Dioxide 20 L Anion Gap 7.0 L Creatinine 0.5 L 0.5 L Glucose 162 H Osmolality 302 H Calcium 8.2 L 7.9 L Phosphorus 1.5 L GGT 63 H 44 H AST 140 H 46 H ALT 52 H Alkaline Phosphatase 176 H 185 H Total Protein 4.9 L 5.1 L Albumin 2.7 L 2.9 L Meds: Medications Acetaminophen (Acetaminophen 325 Mg Tablet) 650 mg PO Q4-6HP PRN PRN Reason: Fever >101 Albuterol/Ipratropium (Ipratropium/Albuterol 3 Ml Ampul.Neb) 3 ml NEB Q4HP PRN PRN Reason: Shortness Of Breath Aspirin (Aspirin 81 Mg Tab.Chew) 81 mg PO DAILY [facility] Last Admin: 02/28/23 08:49 Dose: 81 mg Atorvastatin Calcium (Atorvastatin 40 Mg Tablet) 40 mg PO QDAY [facility] Last Admin: 02/28/23 08:49 Dose: 40 mg Dextrose (Dextrose 50% 50 Ml Vial) 0 ml IV UD PRN PRN Reason: Per Sliding Scale Diagnostic Test (Pha) (Accu-Chek 1 Each Strip) 1 each FS ACHS [facility] Last Admin: 02/28/23 20:49 Dose: 1 each Diphenhydramine HCl (Diphenhydramine 25 Mg Capsule) 25 mg PO HS [facility] Last Admin: 02/28/23 21:01 Dose: 25 mg Docusate Sodium (Docusate Sodium 100 Mg Capsule) 100 mg PO BID [facility] Last Admin: 02/28/23 21:01 Dose: 100 mg Enoxaparin Sodium (Enoxaparin 40 Mg/0.4 Ml Syringe) 40 mg SQ DAILY [facility] Last Admin: 02/28/23 08:48 Dose: 40 mg Famotidine (Famotidine 20 Mg Tablet) 20 mg PO BID [facility] Last Admin: 02/28/23 21:01 Dose: 20 mg Gabapentin (Gabapentin 400 Mg Capsule) 400 mg PO QIDP PRN PRN Reason: Pain Last Admin: 02/27/23 20:11 Dose: 400 mg Glucose (Dextrose 31 Gm Oral.Susp) 15 gm PO PRN PRN PRN Reason: Hypoglycemia Potassium Chloride 40 meq/ (Dextrose) 520 mls @ 130 mls/hr IV PRN PRN PRN Reason: K+ < 3.0 Last Infusion: 02/27/23 18:02 Dose: Infused Magnesium Sulfate (Magnesium Sulfate) 2 gm in 50 mls @ 25 mls/hr IV PRN PRN PRN Reason: Magnesium Level </= 1.6 Insulin Glargine (Insulin Glargine, Human 1 Unit/0.01 Ml) 28 unit SQ BID [facility] Last Admin: 02/28/23 21:00 Dose: 28 units Insulin Human Lispro (Insulin Lispro 1 Unit/0.01 Ml Unit) 0 unit SQ ACHS [facility]; Protocol Last Admin: 02/28/23 21:00 Dose: 10 units Levofloxacin (Levofloxacin 500 Mg Tablet) 250 mg PO DAILY [facility]; Protocol Last Admin: 02/28/23 08:48 Dose: 250 mg Levothyroxine Sodium (Levothyroxine 125 Mcg Tablet) 125 mcg PO QAMAC [facility] Last Admin: 02/28/23 07:49 Dose: 125 mcg Melatonin (Melatonin 3 Mg Tablet) 3 mg PO QHS [facility] Last Admin: 02/28/23 21:01 Dose: 3 mg Ondansetron HCl (Ondansetron 4 Mg/2 Ml Vial) 4 mg IV Q4HP PRN PRN Reason: Nausea And Vomiting Last Admin: 02/27/23 07:16 Dose: 4 mg Oxycodone HCl (Oxycodone Ir 5 Mg Tablet) 5 mg PO BIDP PRN; Protocol PRN Reason: breakthrough pain Last Admin: 02/28/23 21:13 Dose: 5 mg Lipase-Protease- Amylase [Zenpep] 40, 000-126,000-168,000 Units Cap Pt Own Med 1 dose PO TIDCC [facility] Last Admin: 02/28/23 17:09 Dose: 1 dose Polyethylene Glycol (Polyethylene Glycol 3350 17 Gm Packet) 17 gm PO DAILYP PRN PRN Reason: Constipation Potassium Chloride (Potassium Chloride 20 Meq Tablet) 40 meq PO ONCE PRN PRN Reason: Potassium Level < 3 Last Admin: 02/27/23 08:42 Dose: 40 meq Potassium Chloride (Potassium Chloride 20 Meq Tablet) 40 meq PO UD PRN PRN Reason: Potassium Level of 3-3.5 Promethazine HCl (Promethazine 25 Mg/Ml Vial) 12.5 mg IV Q4-6HP PRN PRN Reason: Nausea And Vomiting Last Admin: 02/27/23 11:00 Dose: 12.5 mg Senna (Sennosides 1 Tablet) 2 tab PO DAILY PRN PRN Reason: Constipation Sodium Chloride (0.9 % Sodium Chloride 10 Ml Syringe) 10 ml IV Q8 [facility] Last Admin: 02/28/23 21:01 Dose: 10 ml Trazodone HCl (Trazodone Hcl 100 Mg Tablet) 100 mg PO HSP [facility] Last Admin: 03/01/23 02:23 Dose: 100 mg A/P Narrative A/P Narrative: A: #DKA/HHS, severe: improved -multiple admission, poor self-care at home #AG Metabolic acidosis, severe; including Lactic acidosis: #DM2 Poorly controlled insulin-dependent w/neuropathy: -A1c 10.1 in December #Encephalopathy: 2/2 above #SUDARSHAN w/Volume depletion: 2/2 above, improving #Hyponatremia: resolved #Hypokalemia/hypophosphatemia: #Generalized weakness/deconditioning: #UTI(MSSA): BC negative, to r/o seeding of urine by mir bennett #h/o CAD: #Anemia, chronic: #Hypothyroidism: cont levothyroxine #Chronic pancreatitis: #Hypertriglyceridemia: #chronically elevated LFT's #Essential tremor: #chr back pain: #insomnia: #Long-term prognosis quite guarded with multiple admissions and poor compliance -6 admits 2021, 4 admits this year so far Plan: -SQ basal insulin and titrate -Abx for uti, BC neg -Monitor electrolytes closely Replace as needed -Monitor renal function, avoid nephrotoxic meds -Monitor UOP/fluid balance closely -cont asa/statin -Continue home duloxetine/gabapentin -Continue her home pancreatic enzyme supplements, levothyroxine, fenofibrate -qhs snack when back on home regimen -PT/OT -CM for SNF placement, pt is not able to consistently care for herself at home even with twice weekly caregivers. -DVT prophylaxis: lovenox / H2 CODE STATUS: DNR Time Spent With Patient Time: Total time spent is greater than 50% in coordination of care (as documented) at patient's floor/unit and/or counseling patient: Subsequent: Total time with patient: 35 - 49 minutes QUALITY VTE Deep Vein Thrombosis/Pulmonary Embolism Present on Admission: No
[2023-03-01] MEDS: LEVOTHYROXINE 125 MCG TABLET PO SCH (07:47)
[2023-03-01] MEDS: AMYLASE PO SCH ×3 (07:48→17:16)
[2023-03-01] MEDS: PROTEASE PO SCH ×3 (07:48→17:16)
[2023-03-01] MEDS: 0.9 % SODIUM CHLORIDE 10 ML SYRINGE IV SCH ×3 (07:48→20:25)
[2023-03-01] MEDS: INSULIN LISPRO 1 UNIT/0.01 ML UNIT SQ SCH ×4 (07:48→20:24)
[2023-03-01] MEDS: LIPASE PO SCH ×3 (07:48→17:16)
[2023-03-01] MEDS: DOCUSATE SODIUM 100 MG CAPSULE PO SCH ×2 (08:17→20:25)
[2023-03-01] MEDS: FAMOTIDINE 20 MG TABLET PO SCH ×2 (08:17→20:25)
[2023-03-01] MEDS: ENOXAPARIN 40 MG/0.4 ML SYRINGE SQ SCH (08:17)
[2023-03-01] MEDS: LEVOFLOXACIN 500 MG TABLET PO SCH (08:18)
[2023-03-01] MEDS: ASPIRIN 81 MG TAB.CHEW PO SCH (08:18)
[2023-03-01] MEDS: ATORVASTATIN 40 MG TABLET PO SCH (08:18)
[2023-03-01] MEDS: INSULIN GLARGINE, HUMAN 1 UNIT/0.01 ML SQ SCH ×2 (08:20→20:24)
[2023-03-01] MEDS: ACETAMINOPHEN 325 MG TABLET PO PRN (17:14)
[2023-03-01] MEDS: oxyCODONE IR 5 MG TABLET PO PRN (17:15)
[2023-03-01] MEDS: SENNOSIDES 1 TABLET PO PRN (18:04)
[2023-03-01] MEDS: diphenhydrAMINE 25 MG CAPSULE PO SCH (20:24)
[2023-03-01] MEDS: MELATONIN 3 MG TABLET PO SCH (20:25)
[2023-03-01] MEDS: METHOCARBAMOL 500 MG TABLET PO PRN (20:37)
[2023-03-02] MEDS: 0.9 % SODIUM CHLORIDE 10 ML SYRINGE IV SCH ×3 (05:35→21:47)
[2023-03-02] MEDS: LEVOTHYROXINE 125 MCG TABLET PO SCH (07:25)
[2023-03-02] MEDS: GABAPENTIN 400 MG CAPSULE PO PRN ×2 (07:25→21:58)
[2023-03-02] MEDS: AMYLASE PO SCH ×3 (07:26→16:45)
[2023-03-02] MEDS: PROTEASE PO SCH ×3 (07:26→16:45)
[2023-03-02] MEDS: LIPASE PO SCH ×3 (07:26→16:45)
[2023-03-02] MEDS: INSULIN LISPRO 1 UNIT/0.01 ML UNIT SQ SCH ×4 (07:33→21:45)
--- NOTE | 2023-03-02 07:45 | Internal Med Progress Note ---
SUBJECTIVE Subjective Patient information: Note initiated : 03/02/23 at 7:45 am Service Date, if different from initiated Date: [] Patient: Tennille Castillo a 77 y/o F admitted on 02/25/23 for blood sugar over 550./ severe DKA, encephalopathy. Chief Complaint: [] Interval history: History of present illness: Ms. 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 EMS arrived her blood sugar was greater than 550. Patient has caregivers twice weekly. She says she thinks she has been feeling ill for the past few days with increased confusion and weakness. She does not recall Her last dose of insulin taken. Patient is a poor historian. There has been concern each admission that she is not safe at home to take care of herself and she has been at rehabs but then is eventually discharged home. I think long-term care has been more issue of insurance related. Patient has headache but denies fever chills nausea vomiting abdominal pain. Work-up in the ED revealed a mild tachycardia. Elevated beta hydroxybutyric acid 8. Lactate 3.4. Elevated BUN to creatinine ratio. And most notably her VBG showed a pH of 7.19 and on chemistry her xsqob-mz-rqsz bicarb was 9. Pending the rest of the chemistry panel. Sfout-jo-yder glucose was greater than 700 and awaiting the actual level from the chemistry panel. Ltqxg-ab-uncy sodium was 124 which is not corrected for hyperglycemia. Patient started on IV fluids and insulin drip in the ED. Patient has had multiple admissions for DKA. Looks like about 6 admissions in 2021 and 4 so far in 2022. 02/26 Patient did Sleep poorly last night. Feels weak and tired. Transitioning from insulin drip to subcu insulin today monitoring closely. Continue IV fluids. Start work with PT OT Monitor electrolytes. 02/27 Patient states he did not sleep very well last night and has a history of insomnia. She has nausea vomiting this morning. Hypokalemic kalemia on lab this morning replete and trend. Hypophosphatemia replete. 02/28 Mild hypokalemia, improving. Patient seems to have a bit more severe dinner this morning. Adjusting insulin regimen. 03/01 No overnight events. Patient does complain of her chronic lower back pain. We will try heating pads Robaxin and Tylenol. monitoring sugars for any further insulin changes. 03/02 Patient complains of right rib pain which is chronic. Other than that no change. Monitoring glucose and adjusting insulin as needed. Review of Systems: Pertinent positives as above. Denies fever/chills/nausea/vomiting/chest or abdominal pain/cough/dyspnea/diarrhea. PHYSICAL EXAM General: Awake, No acute Distress Eyes/N/T: EOMI, no scleral icterus, Head/Neck: neck supple, full ROM, CV: RRR, 2/6SM, Pulm: Clear b/l, no wheezing/rhonchi/rales, no respiratory distress Abd: soft, nontender, +BS x4 Ext: no clubbing/cyanosis/edema, nontender Neuro: alert, no focal deficits, moves all extremities, , sensations intact b/l upper/lower Psychiatric: Skin: warm/dry, normal color Constitutional Vitals: Vital Signs Temp Pulse Resp BP Pulse Ox O2 Del Method 97.9 F 71 14 130/68 99 Room Air 03/02/23 03:44 03/02/23 03:44 03/02/23 03:44 03/02/23 03:44 03/02/23 03:44 03/02/23 03:44 Period Temp Pulse Resp BP Sys/Rosario Pulse Ox O2 Del Method O2 Flow Rate Last 24 Hr 97.7 F-98.8 F 71-85 14-16 130-161/63-77 98-100 Room Air-Room Air Intake and Output 03/01/23 03/02/23 03/02/23 19:59 03:59 11:59 Intake Total 480 Output Total 1525 Balance -1045 Weight 67.585 kg Intake & Output: Intake & Output 03/01/23 03/02/23 03/02/23 19:59 03:59 11:59 Intake Total 480 Output Total 1525 Balance -1045 Weight 67.585 kg Intake: Oral 480 Output: Void Amount 1525 Other: Meal Dinner Percent of Meal Consumed 100% Urine Appearance Clear Urine Color Yellow # Voids 3 OBJ DATA Labs 02/26/23 05:19 02/28/23 05:39 Labs: Abnormal Lab Results 02/28/23 02/27/23 05:39 05:49 Potassium 3.2 L 2.9 L* Chloride 112 H Carbon Dioxide 20 L Anion Gap 7.0 L Creatinine 0.5 L 0.5 L Glucose 162 H Calcium 8.2 L 7.9 L Phosphorus 1.5 L GGT 63 H 44 H AST 140 H 46 H ALT 52 H Alkaline Phosphatase 176 H 185 H Total Protein 4.9 L 5.1 L Albumin 2.7 L 2.9 L Meds: Medications Acetaminophen (Acetaminophen 325 Mg Tablet) 650 mg PO Q4-6HP PRN PRN Reason: Fever >101 Last Admin: 03/01/23 17:14 Dose: 650 mg Albuterol/Ipratropium (Ipratropium/Albuterol 3 Ml Ampul.Neb) 3 ml NEB Q4HP PRN PRN Reason: Shortness Of Breath Aspirin (Aspirin 81 Mg Tab.Chew) 81 mg PO DAILY [facility] Last Admin: 03/01/23 08:18 Dose: 81 mg Atorvastatin Calcium (Atorvastatin 40 Mg Tablet) 40 mg PO QDAY [facility] Last Admin: 03/01/23 08:18 Dose: 40 mg Dextrose (Dextrose 50% 50 Ml Vial) 0 ml IV UD PRN PRN Reason: Per Sliding Scale Diagnostic Test (Pha) (Accu-Chek 1 Each Strip) 1 each FS ACHS [facility] Last Admin: 03/02/23 07:28 Dose: 1 each Diphenhydramine HCl (Diphenhydramine 25 Mg Capsule) 25 mg PO HS [facility] Last Admin: 03/01/23 20:24 Dose: 25 mg Docusate Sodium (Docusate Sodium 100 Mg Capsule) 100 mg PO BID [facility] Last Admin: 03/01/23 20:25 Dose: 100 mg Enoxaparin Sodium (Enoxaparin 40 Mg/0.4 Ml Syringe) 40 mg SQ DAILY [facility] Last Admin: 03/01/23 08:17 Dose: 40 mg Famotidine (Famotidine 20 Mg Tablet) 20 mg PO BID [facility] Last Admin: 03/01/23 20:25 Dose: 20 mg Gabapentin (Gabapentin 400 Mg Capsule) 400 mg PO QIDP PRN PRN Reason: Pain Last Admin: 03/02/23 07:25 Dose: 400 mg Glucose (Dextrose 31 Gm Oral.Susp) 15 gm PO PRN PRN PRN Reason: Hypoglycemia Potassium Chloride 40 meq/ (Dextrose) 520 mls @ 130 mls/hr IV PRN PRN PRN Reason: K+ < 3.0 Last Infusion: 02/27/23 18:02 Dose: Infused Magnesium Sulfate (Magnesium Sulfate) 2 gm in 50 mls @ 25 mls/hr IV PRN PRN PRN Reason: Magnesium Level </= 1.6 Insulin Glargine (Insulin Glargine, Human 1 Unit/0.01 Ml) 28 unit SQ BID [facility] Last Admin: 03/01/23 20:24 Dose: 28 units Insulin Human Lispro (Insulin Lispro 1 Unit/0.01 Ml Unit) 0 unit SQ ACHS [facility]; Protocol Last Admin: 03/02/23 07:33 Dose: 4 units Levofloxacin (Levofloxacin 500 Mg Tablet) 250 mg PO DAILY [facility]; Protocol Last Admin: 03/01/23 08:18 Dose: 250 mg Levothyroxine Sodium (Levothyroxine 125 Mcg Tablet) 125 mcg PO QAMAC [facility] Last Admin: 03/02/23 07:25 Dose: 125 mcg Melatonin (Melatonin 3 Mg Tablet) 3 mg PO QHS [facility] Last Admin: 03/01/23 20:25 Dose: 3 mg Methocarbamol (Methocarbamol 500 Mg Tablet) 500 mg PO QIDP PRN PRN Reason: Muscle Spasm Last Admin: 03/01/23 20:37 Dose: 500 mg Ondansetron HCl (Ondansetron 4 Mg/2 Ml Vial) 4 mg IV Q4HP PRN PRN Reason: Nausea And Vomiting Last Admin: 02/27/23 07:16 Dose: 4 mg Oxycodone HCl (Oxycodone Ir 5 Mg Tablet) 5 mg PO BIDP PRN; Protocol PRN Reason: breakthrough pain Last Admin: 03/01/23 17:15 Dose: 5 mg Lipase-Protease- Amylase [Zenpep] 40, 000-126,000-168,000 Units Cap Pt Own Med 1 dose PO TIDCC [facility] Last Admin: 03/02/23 07:26 Dose: 1 dose Polyethylene Glycol (Polyethylene Glycol 3350 17 Gm Packet) 17 gm PO DAILYP PRN PRN Reason: Constipation Last Admin: 03/01/23 18:04 Dose: 17 gm Potassium Chloride (Potassium Chloride 20 Meq Tablet) 40 meq PO ONCE PRN PRN Reason: Potassium Level < 3 Last Admin: 02/27/23 08:42 Dose: 40 meq Potassium Chloride (Potassium Chloride 20 Meq Tablet) 40 meq PO UD PRN PRN Reason: Potassium Level of 3-3.5 Promethazine HCl (Promethazine 25 Mg/Ml Vial) 12.5 mg IV Q4-6HP PRN PRN Reason: Nausea And Vomiting Last Admin: 02/27/23 11:00 Dose: 12.5 mg Senna (Sennosides 1 Tablet) 2 tab PO DAILY PRN PRN Reason: Constipation Last Admin: 03/01/23 18:04 Dose: 2 tab Sodium Chloride (0.9 % Sodium Chloride 10 Ml Syringe) 10 ml IV Q8 PEG Last Admin: 03/02/23 05:35 Dose: 10 ml Trazodone HCl (Trazodone Hcl 100 Mg Tablet) 100 mg PO HSP [facility] Last Admin: 03/01/23 20:26 Dose: 100 mg A/P Narrative A/P Narrative: A: #DKA/HHS, severe: improved -multiple admission, poor self-care at home #AG Metabolic acidosis, severe; including Lactic acidosis: #DM2 Poorly controlled insulin-dependent w/neuropathy: -A1c 10.1 in December #Encephalopathy: 2/2 above #SUDARSHAN w/Volume depletion: 2/2 above, improving #Hyponatremia: resolved #Hypokalemia/hypophosphatemia: #Generalized weakness/deconditioning: #UTI(MSSA): BC negative, to r/o seeding of urine by mir bennett #h/o CAD: #Anemia, chronic: #Hypothyroidism: cont levothyroxine #Chronic pancreatitis: #Hypertriglyceridemia: #chronically elevated LFT's #Essential tremor: #chr back pain: #insomnia: #Long-term prognosis quite guarded with multiple admissions and poor compliance -6 admits 2021, 4 admits this year so far Plan: -SQ basal insulin and titrate -Abx for uti, BC neg -Monitor electrolytes closely Replace as needed -Monitor renal function, avoid nephrotoxic meds -Monitor UOP/fluid balance closely -cont asa/statin -Continue home duloxetine/gabapentin -Continue her home pancreatic enzyme supplements, levothyroxine, fenofibrate -pain meds for chronic pain -qhs snack when back on home regimen -PT/OT -CM for SNF placement, pt is not able to consistently care for herself at home even with twice weekly caregivers. -DVT prophylaxis: lovenox / H2 CODE STATUS: DNR Time Spent With Patient Time: Total time spent is greater than 50% in coordination of care (as documented) at patient's floor/unit and/or counseling patient: Subsequent: Total time with patient: 35 - 49 minutes QUALITY VTE Deep Vein Thrombosis/Pulmonary Embolism Present on Admission: No
[2023-03-02] MEDS: ATORVASTATIN 40 MG TABLET PO SCH (09:41)
[2023-03-02] MEDS: ENOXAPARIN 40 MG/0.4 ML SYRINGE SQ SCH (09:41)
[2023-03-02] MEDS: INSULIN GLARGINE, HUMAN 1 UNIT/0.01 ML SQ SCH ×2 (09:41→21:45)
[2023-03-02] MEDS: LIDOCAINE PATCH TOPICAL SCH (09:41)
[2023-03-02] MEDS: LEVOFLOXACIN 500 MG TABLET PO SCH (09:42)
[2023-03-02] MEDS: ASPIRIN 81 MG TAB.CHEW PO SCH (09:42)
[2023-03-02] MEDS: FAMOTIDINE 20 MG TABLET PO SCH ×2 (09:42→21:46)
[2023-03-02] MEDS: DOCUSATE SODIUM 100 MG CAPSULE PO SCH ×2 (09:42→21:46)
[2023-03-02] MEDS: METHOCARBAMOL 500 MG TABLET PO PRN (21:45)
[2023-03-02] MEDS: traZODone HCL 100 MG TABLET PO SCH (21:46)
[2023-03-02] MEDS: diphenhydrAMINE 25 MG CAPSULE PO SCH (21:46)
[2023-03-02] MEDS: MELATONIN 3 MG TABLET PO SCH (21:46)
[2023-03-02] MEDS: ACETAMINOPHEN 325 MG TABLET PO PRN (21:46)
[2023-03-02] MEDS: SENNOSIDES 1 TABLET PO PRN (21:58)
--- NOTE | 2023-03-03 07:15 | Internal Med Progress Note ---
SUBJECTIVE Subjective Patient information: Note initiated : 03/03/23 at 7:10 am Service Date, if different from initiated Date: [] Patient: Tennille Castillo a 77 y/o F admitted on 02/25/23 for blood sugar over 550./ severe DKA, encephalopathy. Chief Complaint: [] Interval history: History of present illness: Ms. Castillo is a 77 year old F Presents to the ED after her vice president compliance called EMS because she was weak and confused. EMS arrived her blood sugar was greater than 550. Patient has caregivers twice weekly. She says she thinks she has been feeling ill for the past few days with increased confusion and weakness. She does not recall Her last dose of insulin taken. Patient is a poor historian. There has been concern each admission that she is not safe at home to take care of herself and she has been at rehabs but then is eventually discharged home. I think long-term care has been more issue of insurance related. Patient has headache but denies fever chills nausea vomiting abdominal pain. Work-up in the ED revealed a mild tachycardia. Elevated beta hydroxybutyric acid 8. Lactate 3.4. Elevated BUN to creatinine ratio. And most notably her VBG showed a pH of 7.19 and on chemistry her mbfzn-iw-ypvs bicarb was 9. Pending the rest of the chemistry panel. Lopje-di-oqgb glucose was greater than 700 and awaiting the actual level from the chemistry panel. Tanea-mr-hxle sodium was 124 which is not corrected for hyperglycemia. Patient started on IV fluids and insulin drip in the ED. Patient has had multiple admissions for DKA. Looks like about 6 admissions in 2021 and 4 so far in 2022. 02/26 Patient did Sleep poorly last night. Feels weak and tired. Transitioning from insulin drip to subcu insulin today monitoring closely. Continue IV fluids. Start work with PT OT Monitor electrolytes. 02/27 Patient states he did not sleep very well last night and has a history of insomnia. She has nausea vomiting this morning. Hypokalemic kalemia on lab this morning replete and trend. Hypophosphatemia replete. 02/28 Mild hypokalemia, improving. Patient seems to have a bit more severe dinner this morning. Adjusting insulin regimen. 03/01 No overnight events. Patient does complain of her chronic lower back pain. We will try heating pads Robaxin and Tylenol. monitoring sugars for any further insulin changes. 03/02 Patient complains of right rib pain which is chronic. Other than that no change. Monitoring glucose and adjusting insulin as needed. 03/03 Slept okay. No complains of any of the chronic pain today. Long-acting insulin twice daily might need to be adjusted so higher dose in the morning and lower dose at night. Review of Systems: Pertinent positives as above. Denies fever/chills/nausea/vomiting/chest or abdominal pain/cough/dyspnea/diarrhea. PHYSICAL EXAM General: Awake, No acute Distress Eyes/N/T: EOMI, no scleral icterus, Head/Neck: neck supple, full ROM, CV: RRR, 2/6SM, Pulm: Clear b/l, no wheezing/rhonchi/rales, no respiratory distress Abd: soft, nontender, +BS x4 Ext: no clubbing/cyanosis/edema, nontender Neuro: alert, no focal deficits, moves all extremities, , sensations intact b/l upper/lower Psychiatric: Skin: warm/dry, normal color Constitutional Vitals: Vital Signs Temp Pulse Resp BP Pulse Ox O2 Del Method 97.7 F 71 16 123/60 96 Room Air 03/03/23 04:03 03/03/23 04:03 03/03/23 04:03 03/03/23 04:03 03/03/23 04:03 03/03/23 04:03 Period Temp Pulse Resp BP Sys/Rosario Pulse Ox O2 Del Method O2 Flow Rate Last 24 Hr 97.7 F-98.4 F 71-89 16-18 123-158/60-73 96-100 Room Air-Room Air Intake and Output 03/02/23 03/03/23 03/03/23 19:59 03:59 11:59 Intake Total 1200 240 380 Output Total 2500 Balance 1200 -2260 380 Weight 68.039 kg Intake & Output: Intake & Output 03/02/23 03/03/23 03/03/23 19:59 03:59 11:59 Intake Total 1200 240 380 Output Total 2500 Balance 1200 -2260 380 Weight 68.039 kg Intake: Oral 800 240 380 GI Tube Flush 400 Output: Void Amount 2500 Other: Meal Dinner Percent of Meal Consumed 100% Feeding Ability Independent Urine Appearance Clear Urine Color Yellow # Voids 4 OBJ DATA Labs 02/26/23 05:19 02/28/23 05:39 Meds: Medications Acetaminophen (Acetaminophen 325 Mg Tablet) 650 mg PO Q4-6HP PRN PRN Reason: Fever >101 Last Admin: 03/02/23 21:46 Dose: 650 mg Albuterol/Ipratropium (Ipratropium/Albuterol 3 Ml Ampul.Neb) 3 ml NEB Q4HP PRN PRN Reason: Shortness Of Breath Aspirin (Aspirin 81 Mg Tab.Chew) 81 mg PO DAILY [facility] Last Admin: 03/02/23 09:42 Dose: 81 mg Atorvastatin Calcium (Atorvastatin 40 Mg Tablet) 40 mg PO QDAY [facility] Last Admin: 03/02/23 09:41 Dose: 40 mg Dextrose (Dextrose 50% 50 Ml Vial) 0 ml IV UD PRN PRN Reason: Per Sliding Scale Diagnostic Test (Pha) (Accu-Chek 1 Each Strip) 1 each FS ACHS [facility] Last Admin: 03/02/23 20:24 Dose: 1 each Diphenhydramine HCl (Diphenhydramine 25 Mg Capsule) 25 mg PO HS [facility] Last Admin: 03/02/23 21:46 Dose: 25 mg Docusate Sodium (Docusate Sodium 100 Mg Capsule) 100 mg PO BID [facility] Last Admin: 03/02/23 21:46 Dose: 100 mg Enoxaparin Sodium (Enoxaparin 40 Mg/0.4 Ml Syringe) 40 mg SQ DAILY [facility] Last Admin: 03/02/23 09:41 Dose: 40 mg Famotidine (Famotidine 20 Mg Tablet) 20 mg PO BID [facility] Last Admin: 03/02/23 21:46 Dose: 20 mg Gabapentin (Gabapentin 400 Mg Capsule) 400 mg PO QIDP PRN PRN Reason: Pain Last Admin: 03/02/23 21:58 Dose: 400 mg Glucose (Dextrose 31 Gm Oral.Susp) 15 gm PO PRN PRN PRN Reason: Hypoglycemia Potassium Chloride 40 meq/ (Dextrose) 520 mls @ 130 mls/hr IV PRN PRN PRN Reason: K+ < 3.0 Last Infusion: 02/27/23 18:02 Dose: Infused Magnesium Sulfate (Magnesium Sulfate) 2 gm in 50 mls @ 25 mls/hr IV PRN PRN PRN Reason: Magnesium Level </= 1.6 Insulin Glargine (Insulin Glargine, Human 1 Unit/0.01 Ml) 28 unit SQ BID [facility] Last Admin: 03/02/23 21:45 Dose: 28 units Insulin Human Lispro (Insulin Lispro 1 Unit/0.01 Ml Unit) 0 unit SQ ACHS [facility]; Protocol Last Admin: 03/02/23 21:45 Dose: 10 units Levofloxacin (Levofloxacin 500 Mg Tablet) 250 mg PO DAILY [facility]; Protocol Last Admin: 03/02/23 09:42 Dose: 250 mg Levothyroxine Sodium (Levothyroxine 125 Mcg Tablet) 125 mcg PO QAMAC [facility] Last Admin: 03/02/23 07:25 Dose: 125 mcg Lidocaine (Lidocaine Patch) 1 patch TOPICAL DAILY@1000 [facility] Last Admin: 03/02/23 09:41 Dose: 1 patch Melatonin (Melatonin 3 Mg Tablet) 3 mg PO QHS [facility] Last Admin: 03/02/23 21:46 Dose: 3 mg Methocarbamol (Methocarbamol 500 Mg Tablet) 500 mg PO QIDP PRN PRN Reason: Muscle Spasm Last Admin: 03/02/23 21:45 Dose: 500 mg Ondansetron HCl (Ondansetron 4 Mg/2 Ml Vial) 4 mg IV Q4HP PRN PRN Reason: Nausea And Vomiting Last Admin: 02/27/23 07:16 Dose: 4 mg Oxycodone HCl (Oxycodone Ir 5 Mg Tablet) 5 mg PO BIDP PRN; Protocol PRN Reason: breakthrough pain Last Admin: 03/01/23 17:15 Dose: 5 mg Lipase-Protease- Amylase [Zenpep] 40, 000-126,000-168,000 Units Cap Pt Own Med 1 dose PO TIDCC [facility] Last Admin: 03/02/23 16:45 Dose: 1 dose Polyethylene Glycol (Polyethylene Glycol 3350 17 Gm Packet) 17 gm PO DAILYP PRN PRN Reason: Constipation Last Admin: 03/01/23 18:04 Dose: 17 gm Potassium Chloride (Potassium Chloride 20 Meq Tablet) 40 meq PO ONCE PRN PRN Reason: Potassium Level < 3 Last Admin: 02/27/23 08:42 Dose: 40 meq Potassium Chloride (Potassium Chloride 20 Meq Tablet) 40 meq PO UD PRN PRN Reason: Potassium Level of 3-3.5 Promethazine HCl (Promethazine 25 Mg/Ml Vial) 12.5 mg IV Q4-6HP PRN PRN Reason: Nausea And Vomiting Last Admin: 02/27/23 11:00 Dose: 12.5 mg Senna (Sennosides 1 Tablet) 2 tab PO DAILY PRN PRN Reason: Constipation Last Admin: 03/02/23 21:58 Dose: 2 tab Sodium Chloride (0.9 % Sodium Chloride 10 Ml Syringe) 10 ml IV Q8 [facility] Last Admin: 03/02/23 21:47 Dose: 10 ml Trazodone HCl (Trazodone Hcl 100 Mg Tablet) 100 mg PO HSP [facility] Last Admin: 03/02/23 21:46 Dose: 100 mg A/P Narrative A/P Narrative: A: #DKA/HHS, severe: improved -multiple admission, poor self-care at home #AG Metabolic acidosis, severe; including Lactic acidosis: #DM2 Poorly controlled insulin-dependent w/neuropathy: -A1c 10.1 in December #Encephalopathy: 2/2 above #SUDARSHAN w/Volume depletion: 2/2 above, improving #Hyponatremia: resolved #Hypokalemia/hypophosphatemia: #Generalized weakness/deconditioning: #UTI(MSSA): BC negative, to r/o seeding of urine by mir bennett #h/o CAD: #Anemia, chronic: #Hypothyroidism: cont levothyroxine #Chronic pancreatitis: #Hypertriglyceridemia: #chronically elevated LFT's #Essential tremor: #chr back pain: #insomnia: #Long-term prognosis quite guarded with multiple admissions and poor compliance -6 admits 2021, 4 admits this year so far Plan: -SQ basal insulin and titrate, may need greater long acting dose in morning than evening -Abx for uti finish today, BC neg -Monitor electrolytes closely Replace as needed -Monitor renal function, avoid nephrotoxic meds -Monitor UOP/fluid balance closely -cont asa/statin -Continue home duloxetine/gabapentin -Continue her home pancreatic enzyme supplements, levothyroxine, fenofibrate -pain meds for chronic pain -qhs snack when back on home regimen -PT/OT -CM for SNF placement, pt is not able to consistently care for herself at home even with twice weekly caregivers. -DVT prophylaxis: lovenox / H2 CODE STATUS: DNR Time Spent With Patient Time: Total time spent is greater than 50% in coordination of care (as documented) at patient's floor/unit and/or counseling patient: Subsequent: Total time with patient: 35 - 49 minutes QUALITY VTE Deep Vein Thrombosis/Pulmonary Embolism Present on Admission: No
[2023-03-03] MEDS: PROTEASE PO SCH ×3 (07:22→16:37)
[2023-03-03] MEDS: LIPASE PO SCH ×3 (07:22→16:37)
[2023-03-03] MEDS: INSULIN LISPRO 1 UNIT/0.01 ML UNIT SQ SCH ×4 (07:22→22:13)
[2023-03-03] MEDS: 0.9 % SODIUM CHLORIDE 10 ML SYRINGE IV SCH ×3 (07:22→22:05)
[2023-03-03] MEDS: AMYLASE PO SCH ×3 (07:22→16:37)
[2023-03-03] MEDS: LEVOTHYROXINE 125 MCG TABLET PO SCH (07:33)
[2023-03-03] MEDS: GABAPENTIN 400 MG CAPSULE PO PRN ×2 (07:36→19:57)
[2023-03-03] MEDS ORDERED: INSULIN GLARGINE, HUMAN 1 UNIT/0.01 ML SQ SCH (09:00)
[2023-03-03] MEDS: LIDOCAINE PATCH TOPICAL SCH (09:18)
[2023-03-03] MEDS: INSULIN GLARGINE, HUMAN 1 UNIT/0.01 ML SQ SCH ×2 (09:18→22:01)
[2023-03-03] MEDS: FAMOTIDINE 20 MG TABLET PO SCH ×2 (09:19→21:57)
[2023-03-03] MEDS: ATORVASTATIN 40 MG TABLET PO SCH (09:19)
[2023-03-03] MEDS: LEVOFLOXACIN 500 MG TABLET PO SCH (09:19)
[2023-03-03] MEDS: DOCUSATE SODIUM 100 MG CAPSULE PO SCH ×2 (09:19→21:57)
[2023-03-03] MEDS: ASPIRIN 81 MG TAB.CHEW PO SCH (09:19)
[2023-03-03] MEDS: ENOXAPARIN 40 MG/0.4 ML SYRINGE SQ SCH (09:19)
[2023-03-03] MEDS: oxyCODONE IR 5 MG TABLET PO PRN ×2 (13:31→21:57)
[2023-03-03] MEDS: ACETAMINOPHEN 325 MG TABLET PO PRN (13:31)
[2023-03-03] MEDS: diphenhydrAMINE 25 MG CAPSULE PO SCH (21:56)
[2023-03-03] MEDS: SENNOSIDES 1 TABLET PO PRN (21:57)
[2023-03-03] MEDS: MELATONIN 3 MG TABLET PO SCH (21:57)
[2023-03-03] MEDS: METHOCARBAMOL 500 MG TABLET PO PRN (21:57)
[2023-03-03] MEDS: traZODone HCL 100 MG TABLET PO SCH (21:58)
[2023-03-04] MEDS: INSULIN LISPRO 1 UNIT/0.01 ML UNIT SQ SCH ×2 (07:34→10:58)
[2023-03-04] MEDS: LEVOTHYROXINE 125 MCG TABLET PO SCH (07:34)
[2023-03-04] MEDS: PROTEASE PO SCH ×2 (07:34→10:52)
[2023-03-04] MEDS: 0.9 % SODIUM CHLORIDE 10 ML SYRINGE IV SCH (07:34)
[2023-03-04] MEDS: AMYLASE PO SCH ×2 (07:34→10:52)
[2023-03-04] MEDS: GABAPENTIN 400 MG CAPSULE PO PRN (07:34)
[2023-03-04] MEDS: LIPASE PO SCH ×2 (07:34→10:52)
[2023-03-04] MEDS: ENOXAPARIN 40 MG/0.4 ML SYRINGE SQ SCH (09:17)
[2023-03-04] MEDS: ATORVASTATIN 40 MG TABLET PO SCH (09:17)
[2023-03-04] MEDS: INSULIN GLARGINE, HUMAN 1 UNIT/0.01 ML SQ SCH (09:17)
[2023-03-04] MEDS: ASPIRIN 81 MG TAB.CHEW PO SCH (09:17)
[2023-03-04] MEDS: DOCUSATE SODIUM 100 MG CAPSULE PO SCH (09:17)
[2023-03-04] MEDS: FAMOTIDINE 20 MG TABLET PO SCH (09:17)
[2023-03-04] MEDS: LIDOCAINE PATCH TOPICAL SCH (09:17)
[2023-03-04] MEDS ORDERED: POTASSIUM CHLORIDE 20 MEQ TABLET PO SCH (09:48)
--- NOTE | 2023-03-04 11:52 | Discharge Summary ---
Discharge Provider Provider IMPORTANT FOLLOW-UP INFORMATION FOR PCP: Patient information: Note initiated : 03/04/23 at 11:50 am Service Date, if different from initiated Date: [] Patient: Tennille Castillo a 77 y/o F admitted on 02/25/23 for blood sugar over 550./ severe DKA, encephalopathy. Chief Complaint: [] Date of admission: 02/25/23 20:06 Discharge date: 03/04/23 Primary care physician: Eugenio March MD Consults: 02/25/23 Consult to Physician [CONS] Stat Comment: Consulting Provider: Jef Borges Reason For Exam: Physician to Consult COURSE Hospital Course Hospital course: Ms. Castillo is a 77 year old F Presents to the ED after her chart changer called EMS because she was weak and confused. EMS arrived her blood sugar was greater than 550. Patient has caregivers twice weekly. She says she thinks she has been feeling ill for the past few days with increased confusion and weakness. She does not recall Her last dose of insulin taken. Patient is a poor historian. There has been concern each admission that she is not safe at home to take care of herself and she has been at rehabs but then is eventually discharged home. I think long-term care has been more issue of insurance related. Patient has headache but denies fever chills nausea vomiting abdominal pain. Work-up in the ED revealed a mild tachycardia. Elevated beta hydroxybutyric acid 8. Lactate 3.4. Elevated BUN to creatinine ratio. And most notably her VBG showed a pH of 7.19 and on chemistry her [id number]-uy-[id number] bicarb was 9. Pending the rest of the chemistry panel. Ujadq-sh-euhg glucose was greater than 700 and awaiting the actual level from the chemistry panel. Awgiw-gb-evio sodium was 124 which is not corrected for hyperglycemia. Patient started on IV fluids and insulin drip in the ED. Patient has had multiple admissions for DKA. Looks like about 6 admissions in 2021 and 4 so far in 2022. 02/26 Patient did Sleep poorly last night. Feels weak and tired. Transitioning from insulin drip to subcu insulin today monitoring closely. Continue IV fluids. Start work with PT OT Monitor electrolytes. 02/27 Patient states he did not sleep very well last night and has a history of insomnia. She has nausea vomiting this morning. Hypokalemic kalemia on lab this morning replete and trend. Hypophosphatemia replete. 02/28 Mild hypokalemia, improving. Patient seems to have a bit more severe dinner this morning. Adjusting insulin regimen. 03/01 No overnight events. Patient does complain of her chronic lower back pain. We will try heating pads Robaxin and Tylenol. monitoring sugars for any further insulin changes. 03/02 Patient complains of right rib pain which is chronic. Other than that no change. Monitoring glucose and adjusting insulin as needed. 03/03 Slept okay. No complains of any of the chronic pain today. Long-acting insulin twice daily might need to be adjusted so higher dose in the morning and lower dose at night. 03/04. Patient blood glucose readings fluctuate, no N/V/D. Will adjust lantus dose. Review of Systems: Pertinent positives as above. Denies fever/chills/nausea/vomiting/chest or abdominal pain/cough/dyspnea/diarrhea. PHYSICAL EXAM General: Alert, awake, no acute distress Eyes/N/T: EOMI, no scleral icterus, Head/Neck: neck supple, full ROM, CV: RRR, 2/6SM, Pulm: Clear b/l, no wheezing/rhonchi/rales, no respiratory distress Abd: soft, nontender, +BS x4 Ext: no clubbing/cyanosis/edema, nontender Neuro: alert, no focal deficits, moves all extremities, , sensations intact b/l upper/lower Psychiatric: Skin: warm/dry, normal color Discharge diagnoses #DKA/HHS, severe: Resolved -multiple admissions, poor self-care at home, noncompliance -Discharged on Lantus 24 units twice daily. Insulin sliding scale. #AG Metabolic acidosis, including lactic acidosis, now resolved #DM2 Poorly controlled insulin-dependent w/neuropathy: -A1c 10.1 in December #Encephalopathy: 2/2 above, resolved #SUDARSHAN w/Volume depletion: 2/2 above, resolved #Hyponatremia: resolved #Hypokalemia/hypophosphatemia: Replaced #Generalized weakness/deconditioning: Improving. Discharge to SNF #UTI(MSSA): completed abx, BC negative,due to r/o seeding of urine by staph A. complete #h/o CAD: No chest pain #Anemia, chronic: H/H stable #Hypothyroidism: cont levothyroxine #Chronic pancreatitis :Continue her home pancreatic enzyme supplements #Hypertriglyceridemia:Statin, fenofibrate #chronically elevated LFT's #Essential tremor: on propranolol #chr back pain: continue pain medication #insomnia: Diphenhydramine, melatonin, trazadone #Long-term prognosis quite guarded with multiple admissions and poor compliance -6 admits 2021, 4 admits this year so far #Deconditioning. PT/OT/SNF. #CODE STATUS: DNR Total time with patient: 50 min Discharge diagnosis: DKA, metabolic acidosis, hyponatremia, hypokalemia, UTI Time Spent with Patient Time attestation: Total time spent providing and/or coordinating discharge services: Time spent: Greater than 30 minutes EXAM Constitutional Vitals: Temp Pulse Resp BP Pulse Ox O2 Del Method 97.7 F 72 18 135/69 98 Room Air 03/04/23 07:47 03/04/23 07:47 03/04/23 07:47 03/04/23 07:47 03/04/23 07:47 03/04/23 08:00 Discharge Plan Patient/Caregiver Discharge Instructions Activity: increase activity as tolerated Diet: Consistent Carbohydrate Instructions: Diabetic Ketoacidosis (GEN) Activity Restrictions/Additional Instructions: To have follow up for black spots on left foot with wound care or Dr Rajat Padilla. Prescriptions: Continued albuterol sulfate [ProAir HFA] 90 mcg/actuation HFA aerosol inhaler 2 puff inhalation .q4-6h PRN (Reason: cough, shortness of breath, wheezing) Qty: 8.5 0RF Rx Instructions: administer with spacer insulin degludec [Tresiba U-100 Insulin] 100 unit/mL solution 23 unit subcut BID 30 Days Qty: 13.8 0RF oxycodone 5 mg tablet 5 mg PO BID PRN (Reason: breakthrough pain) Qty: 20 0RF gabapentin 400 mg capsule 400 mg PO QIDP PRN (Reason: Pain) Qty: 120 0RF tramadol 50 mg tablet 50 mg PO Q8H PRN (Reason: pain) Qty: 20 0RF trazodone 100 mg tablet 100 mg PO HSP betamethasone valerate 0.1 % ointment 1 applic topical BID PRN (Reason: psoriosis) melatonin 1 mg tablet 4 mg PO HS PRN (Reason: sleep) zinc 50mg, magnesium 500mg PO ibuprofen 200 mg tablet 200 mg PO Q6H PRN (Reason: Pain) aspirin 81 mg tablet,delayed release (DR/EC) 81 mg PO QDAY Qty: 90 3RF atorvastatin [Lipitor] 40 mg tablet 40 mg PO QDAY Qty: 60 0RF cholecalciferol (vitamin D3) [Vitamin D3] 50 mcg (2,000 unit) capsule 100 mcg PO DAILY levothyroxine 125 mcg tablet 1 tab PO QAM (DME) True Metrix Glucose Test Strip Strip 1 strip MISCELLANEOUS QID hyoscyamine sulfate 0.125 mg tablet,disintegrating 0.125 mg sublingual Q6HP PRN (Reason: muscle spasm) diphenhydramine HCl [Sleep Aid (diphenhydramine)] 50 mg Capsule 50 mg PO QHS propranolol 10 mg tablet 10 mg PO TID Zenpep 40,000-126,000- 168,000 unit capsule,delayed release(DR/EC) 1 cap PO TIDCC insulin aspart U-100 [Novolog FlexPen U-100 Insulin] 100 unit/mL (3 mL) insulin pen See Rx Instructions .ROUTE .COMPLEX Rx Instructions: see original instructions Other Ambulatory Orders: OT Discharge Order (Routine) Location: None Selected Ordered By: Satish Bagley Physical Therapy at Discharge - General (Routine) Location: None Selected Ordered By: Satish Bagley Prescription drug monitoring program results: PDMP reviewed and no issues identified Follow Up Plan Follow up with: Eugenio aMrch MD [Primary Care Provider] - Patient Disposition: Xfer SNF Prognosis: Undetermined Rehab Potential: Fair I certify that the patient requires SNF services: Yes Overall status at discharge: patient is progressing back to baseline Discharge Orders: Discharge Order (Routine); Ordered 03/04/23 Ordered By: Satish Bagley QUALITY VTE Deep Vein Thrombosis/Pulmonary Embolism Present on Admission: No
== END 2023-03-04 13:40 | DRG 637 ==
LOC: ED 15:12 → ICU 20:06 → MEDSUR 02-26 16:16
PROVIDERS: ADMIT Internal Medicine; ATTEND Internal Medicine

== ENCOUNTER 2023-03-20 11:21 | Inpatient (IN) ==
[2023-03-20] MEDS ORDERED: 0.9 % SODIUM CHLORIDE 1,000 ML IV ONE ×4 (12:13→14:08)
[2023-03-20 13:22] LABS: POC Blood Urea Nitrogen 55 (6-20); POC Calcium, Ionized 1.03 (1.16-1.32); POC Chloride 94 (96-108); POC Creatinine 1.4 (0.6-1.2); POC Glucose, Random > 700 (70-105); POC Potassium 7.3 (3.3-5.1); POC Sodium 119 (133-145)
[2023-03-20] MEDS ORDERED: INSULIN REGULAR, HUMAN 50 UNIT in 0.9 % SODIUM CHLORIDE 99.5 ML IV SCH (13:30)
[2023-03-20 14:09] LABS: ALT/SGPT 52 U/L (<40); AST/SGOT 45 U/L (<32); Albumin 4.2 gm/dL (3.2-5.2); Alkaline Phosphatase 216 U/L (39-117); Bilirubin,Direct < 0.2 mg/dL (0-0.3); Bilirubin,Total 0.5 mg/dL (0.1-1.0); Globulin 2.8 gm/dL (2.2-3.7)
[2023-03-20] MEDS ORDERED: CALCIUM GLUCONATE 4.65 MEQ/10 ML VIAL IV ONE (14:09)
[2023-03-20] MEDS ORDERED: INSULIN REGULAR, HUMAN 1 UNIT/0.01 ML UNIT IV ONE ×5 (14:10→20:05)
--- NOTE | 2023-03-20 14:16 | Emergency Department Note ---
HPI General Chief complaint: Blood Sugar Problem Stated complaint: High Blood Glucose Time Seen by Provider: 03/20/23 12:13 Source: patient and EMS Mode of arrival: EMS Limitations: no limitations History of Present Illness HPI Narrative: Narrative: 77-year-old female with history of insulin-dependent diabetes presents with glucose reading high per EMS. States that she is having nausea vomiting for the last 5 days and has been unable to take her insulin. Complains of fatigue weakness. No chest pain shortness of breath cough fevers or chills. No urinary symptoms of dysuria urgency frequency materia. States normal stools. No abdominal pain. No recent travels or sick contacts. She has been in DKA in the past. Related Data Home Medications Medication Instructions Recorded Confirmed blood sugar diagnostic (True 08/21/22 01/17/23 Metrix Glucose Test Strip) levothyroxine 125 mcg tablet 1 tab PO QAM 08/21/22 02/25/23 hyoscyamine sulfate 0.125 mg 0.125 mg sublingual Q6HP PRN 10/15/22 02/25/23 disintegrating tablet muscle spasm diphenhydramine HCl 50 mg capsule 50 mg PO QHS 11/17/22 03/04/23 (Sleep Aid (diphenhydramine)) [id number] 1 cap PO TIDCC 11/17/22 02/26/23 40,000-126,000-168,000 unit capsule, delay rel (Zenpep) betamethasone valerate 0.1 % 1 applic topical BID PRN psoriosis 01/17/23 03/04/23 topical ointment cholecalciferol (vitamin D3) 50 100 mcg PO DAILY 01/17/23 03/04/23 mcg (2,000 unit) capsule (Vitamin D3) ibuprofen 200 mg tablet 200 mg PO Q6H PRN Pain 01/17/23 03/04/23 melatonin 1 mg tablet 4 mg PO HS PRN sleep 01/17/23 03/04/23 trazodone 100 mg tablet 100 mg PO HSP insomnia 01/17/23 02/25/23 insulin aspart U-100 100 unit/mL See Rx Instructions .Route .COMPLEX 02/25/23 02/26/23 (3 mL) subcutaneous pen (Novolog FlexPen U-100 Insulin aspart) Previous Rx's Medication Instructions Recorded aspirin 81 mg tablet,delayed 81 mg PO QDAY #90 tabs 01/17/23 release atorvastatin 40 mg tablet (Lipitor) 40 mg PO QDAY #60 tabs 01/17/23 albuterol sulfate 90 mcg/actuation 2 puff inhalation .q4-6h PRN 01/22/23 aerosol inhaler (ProAir HFA) cough, shortness of breath, wheezing #8.5 grams insulin degludec 100 unit/mL 23 unit (0.23 mL) subcut BID 30 02/14/23 subcutaneous solution (Tresiba days #13.8 mL U-100 Insulin) gabapentin 400 mg capsule 400 mg PO QIDP PRN Pain #120 caps 02/26/23 oxycodone 5 mg tablet 5 mg PO BID PRN breakthrough pain 03/04/23 #20 tabs tramadol 50 mg tablet 50 mg PO Q8H PRN pain #20 tabs 03/04/23 propranolol 10 mg tablet 10 mg PO TID #90 tabs 03/05/23 Allergies Allergy/AdvReac Type Severity Reaction Status Date / Time cephalexin [From Keflex] Allergy Intermediate Swelling Verified 02/25/23 21:13 lidocaine Allergy Intermediate Blister Verified 02/25/23 21:13 fenugreek Allergy Mild Itching Verified 02/25/23 21:13 Penicillins Allergy Mild Rash Verified 02/25/23 21:13 Anistreplase [From Eminase] Allergy Unknown UNKNOWN Verified 02/25/23 21:13 codeine AdvReac Mild Itching Verified 02/25/23 21:13 Erythromycin Base AdvReac Mild Itching Verified 02/25/23 21:13 Nortriptyline AdvReac Mild Nausea Verified 02/25/23 21:13 promethazine AdvReac Mild Fainting Verified 02/25/23 21:13 trulicity AdvReac Intermediate Other Uncoded 01/17/23 12:53 Review of Systems ROS ROS Narrative: Narrative: 10 point review of system is otherwise negative except as mentioned in HPI. PFSH Narrative Patient History Narrative: Narrative: Medical/Surgical/Family History All Active Problems (Updated 03/20/23 @ 14:17 by Sharon Antoine MD) Acute UTI (Acute) DKA (diabetic ketoacidosis) (Acute) Confused (Acute) Anterior epistaxis (Chronic) Anemia (Chronic) Bimalleolar ankle fracture (Chronic) Elevated liver enzymes (Chronic) Chronic bronchitis with acute exacerbation (Chronic) Hypoxia (Chronic) Dehydration (Chronic) Epistaxis (Chronic) 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) Age-related osteoporosis with current pathological fracture, vertebra(e), initial encounter for fracture (Chronic) Pain in thoracic spine (Chronic) Low back pain (Chronic) Rectal pain (Chronic) Osteoporosis (Chronic) Hypertension (Chronic) Anxiety (Chronic) Depression (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) Chronic bronchitis (Chronic) Hypothyroidism (Chronic) History of surgery (Chronic) Dehiscence of closure of skin (Chronic) Sacrococcygeal pain (Chronic) Levator syndrome (Chronic) Insomnia (Chronic) Radiculopathy, lumbosacral region (Chronic) Radiculopathy, sacral and sacrococcygeal region (Chronic) DKA (diabetic ketoacidosis) (Chronic) Bronchitis (Chronic) Conjunctivitis (Chronic) Candidiasis of mouth (Chronic) Essential tremor (Chronic) Chronic pain (Chronic) Neuropathy (Chronic) Constipation (Chronic) Cirrhosis of liver (Chronic) Liver mass (Chronic) Chronic pancreatitis (Chronic) Abdominal pain (Chronic) Compression fracture of lumbosacral spine (Chronic) Fracture of lumbar spine (Chronic) Multiple environmental allergies (Chronic) Hard of hearing (Chronic) Stress (Chronic) Opioid dependence (Chronic) Diabetic retinopathy (Chronic) DDD (degenerative disc disease), cervical (Chronic) Fibromyalgia (Chronic) Glaucoma (Chronic) Hepatitis A (Chronic) Macular degeneration (Chronic) Pancreatitis (Chronic) Arthralgia (Chronic) Sleep disturbance (Chronic) Trigger finger (Chronic) Neurofibromatosis 2 (Chronic) Tremor (Chronic) Snoring (Chronic) Hypersomnia (Chronic) REM sleep behavior disorder (Chronic) Sleepwalking (Chronic) DKA (diabetic ketoacidosis) (Chronic) Vulvovaginitis due to yeast (Chronic) Obstructive sleep apnea (Chronic) Generalized weakness (Chronic) Acute dehydration (Chronic) Diabetic ketosis (Chronic) Acute dyspnea (Chronic) Hypomagnesemia (Chronic) Diabetic keto-acidosis (Chronic) Pseudohyponatremia (Chronic) DKA (diabetic ketoacidosis) (Chronic) Blood in urine (Chronic) Hypoglycemia (Chronic) DKA (diabetic ketoacidosis) (Chronic) Acute hyponatremia (Chronic) Acute hyperkalemia (Chronic) Acidosis, lactic (Chronic) Metabolic acidosis (Chronic) Compression fracture of body of thoracic vertebra (Chronic) Pain in rib (Chronic) 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) Chronic pain syndrome (Chronic) DKA, type 2 (Chronic) Hyperkalemia (Chronic) Mixed dyslipidemia (Chronic) Essential hypertension (Chronic) DKA, type 2 (Chronic) Clinical sepsis (Chronic) Septic shock (Chronic) Transaminitis (Chronic) Left renal mass (Chronic) Hypokalemia (Chronic) Hypoxemia (Chronic) Acute viral syndrome (Chronic) Schwannoma (Chronic) DKA (diabetic ketoacidosis) (Acute) Acidosis, lactic (Acute) Anemia, normocytic normochromic (Acute) Constipation (Acute) Abdominal pain, LLQ (Acute) Pancreatic insufficiency (Acute) Uncontrolled type 2 diabetes with neuropathy (Acute) CAD (coronary artery disease) (Acute) Medical History Abdominal pain Acute exacerbation of chronic obstructive airways disease Age-related osteoporosis with current pathological fracture, vertebra(e), i nitial encounter for fracture Anemia Anterior epistaxis Anxiety Arthralgia Bilateral primary osteoarthritis of hip Bimalleolar ankle fracture Blood in urine Bronchitis CAD (coronary artery disease) Candidiasis of mouth Chronic bronchitis with acute exacerbation Chronic pain Chronic pancreatitis Cirrhosis of liver Compression fracture of lumbosacral spine Conjunctivitis Constipation DDD (degenerative disc disease), cervical Dehiscence of closure of skin Dehydration Depression Diabetic retinopathy DKA (diabetic ketoacidosis) Elevated liver enzymes Epistaxis Essential tremor Fibromyalgia Fracture of lumbar spine Glaucoma Hard of hearing Hepatitis A Hyperglycemia due to type 2 diabetes mellitus Hypersomnia Hypertension Hypothyroidism Hypoxia Insomnia Levator syndrome Lipomatosis Liver mass Low back pain Macular degeneration Multiple environmental allergies Neurofibromatosis 2 Neuropathy Obstructive sleep apnea Did not tolerate CPAP Opioid dependence Osteoporosis Pain in thoracic spine Pancreatic insufficiency Pancreatitis Radiculopathy, lumbosacral region Radiculopathy, sacral and sacrococcygeal region Rectal pain REM sleep behavior disorder Sacrococcygeal pain Schwannoma Sleep disturbance Sleepwalking Snoring Stress Tremor Trigger finger Uncontrolled type 2 diabetes with neuropathy Surgical History History of appendectomy (~1969) History of arthroplasty of right ankle (~2017) History of cataract surgery (~2003) History of cholecystectomy History of colonoscopy (~06/26/18) History of decompression of median nerve (~2003) History of dilation and curettage History of eye surgery (~2005) Glaucoma History of hand surgery (~2003) Release of trigger finger, right History of left breast biopsy (~2005) History of oophorectomy History of surgery Vertebroplasty T12 w/sed 09/28/19 History of surgery retinopathy laser Stereotactic destruction of lesion using gamma radiation-2004 History of surgery on wrist History of tonsillectomy and adenoidectomy (~1969) Family History Mother Heart disease Fibromyalgia Father Malignant melanoma Malignant tumor of prostate Leukemia Social History Smoking Status: Never smoker Alcohol Intake Frequency: does not drink Substance Use: does not use Exam Narrative Narrative: Narrative: (Please note that portions of this note may have been completed with a voice recognition program. Efforts were made to edit the dictations but occasionally words are mis-transcribed) CONSTITUTIONAL: Well-nourished ill-appearing thin elderly female 66 kg. Resting comfortably. Not in acute distress. Non toxic. Awake alert and oriented x3. Cooperative, follows commands. HEAD: Normocephalic. Atraumatic. EYES: EOMI PEERL ENT: No drooling stridor. speech clear fluent. MM dry NECK: Supple. Full range of motion. Trachea midline CARDIOVASCULAR: Adequate peripheral perfusion. S1-S2. Regular rate and rhythm. No murmurs rubs gallops. No JVD. No lower extremity edema. +2 radial pulses bilaterally. PULMONARY: Tachypneic Kussmaul's breathing pattern. speaking full sentences. No use of accessory muscles. Clear to auscultation bilaterally. No rhonchi wheeze or crackles. ABDOMINAL: Positive bowel sounds. Soft. Nondistended. Nontender. EXTREMITIES: No gross deformities. Moves all 4 extremities with good strength and tone. SKIN: Warm and dry. No rash. No petechiae. NEUROLOGY: Sensation is intact. No gross focal deficits. GCS of 15 General Limitations: no limitations Course Vital Signs Vital signs: Vital Signs Pulse Rate 81 03/20/23 11:30 Respiratory Rate 22 03/20/23 11:30 Pulse Oximetry (%) 96 03/20/23 11:30 Oxygen Delivery Method Room Air 03/20/23 11:30 Temperature 36.4 C 03/20/23 12:29 Pulse Rate 88 03/20/23 12:29 Respiratory Rate 16 03/20/23 12:29 Blood Pressure 119/31 03/20/23 12:29 Pulse Oximetry (%) 100 03/20/23 12:29 Oxygen Delivery Method Room Air 03/20/23 12:29 MDM MDM Narrative Medical decision making narrative: Narrative:ddx DKA hyperglycemia HHS acute renal failure electrolyte abnormality arrhythmia sepsis bacteremia UTI etc. IV fluid hydration 2 L. I-STAT was obtained. Does show severe metabolic acidosis as well as potassium over 7. Insulin drip has been ordered at 6 units. We will wait for lab potassium. EKG per EDMD" does show sinus rhythm at 88 bpm. Nonspecific intraventricular conduction delay. Normal axis. No ST elevations. However nonspecific ST changes in the inferior anterior lateral leads. No ectopy. Abnormal intervals. With mildly hyperacute T waves in anterior leads. I was informed that laboratory does confirm hyperkalemia. Calcium gluconate given. Was bolused 6 units of insulin prior to the drip. Additional 2 L 0.9 normal saline at been ordered. Labs do show leukocytosis at 14,000. Suspect reactive. No cough chest pain fevers chills hypoxia. She is 100% on room air lungs are clear to auscultation bilaterally. Breathing is secondary to her DKA. No abdominal tenderness on palpation. Urine dip has been ordered. Will admit to the ICU for DKA. Patient has been updated on results clinical impressions treatment plan. Vital signs otherwise remained stable. She is agreeable questions have answered at length. Hospitalist has been paged Critical care time is 35 minutes exclusive to this patient and excluding all billable procedures Final Impressions: 1. DKA on insulin drip 2. Hyperkalemia Disposition: ICU admit Condition: Critical Lab Data 03/20/23 13:59 03/20/23 13:05 Labs: Lab Results 03/20/23 03/20/23 03/20/23 Range/Units 13:05 13:05 13:05 WBC (4.5-11.0) K/mcL RBC (3.59-5.38) M/mcL Hgb (11.2-15.7) g/dL Hct (34.1-44.9) % POC Hct (36-48) MCV (80.0-100.0) fL MCH (26.0-34.0) pg MCHC (31.0-36.0) g/dL RDW (11.5-14.5) % Plt Count (140-440) K/mcL MPV (8.8-12.5) fL Immature Gran % (Auto) (0.0-0.5) % Neut % (Auto) (38.0-78.0) % Lymph % (Auto) (15.5-49.0) % [place] % (Auto) (1.0-12.0) % Eos % (Auto) (0.0-7.0) % Baso % (Auto) (0.0-2.0) % Lymph # (Auto) (1.50-4.80) K/mcL [place] # (Auto) (0.10-0.90) K/mcL Eos # (Auto) (0.00-0.70) K/mcL Baso # (Auto) (0.00-0.30) K/mcL Immature Gran # (0.00-0.05) K/mcl Absolute Neutrophils (1.80-8.00) K/mcL POC VBG pH (7.32-7.42) POC VBG pCO2 at Temp (41-51) POC VBG pO2 (25-40) POC VBG HCO3 (24-28) POC VBG Total CO2 (25-29) POC Venous O2 Sat (40-70) POC VBG Base Excess (-2-2) VBG Lactic Acid (0.5-2) POC Sodium (133-145) Sodium 122 L 120 L (133-145) mmol/L POC Potassium (3.3-5.1) Potassium 7.5 H* 7.5 H* (3.3-5.1) mmol/L POC Chloride (96-108) Chloride 81 L 79 L (96-108) mmol/L Carbon Dioxide 5 L* 4 L* (22-30) mmol/L POC Total CO2 (22-30) Anion Gap 36.0 H 37.0 H (8.0-16.0) POC Anion Gap (8.0-16.0) POC BUN (6-20) BUN 56 H (8-23) mg/dL Creatinine 1.6 H (0.6-1.1) mg/dL POC Creatinine (0.6-1.2) GFR Calculation 31 Glucose 868 H* (70-105) mg/dL POC Glucose (70-105) Calcium 8.7 (8.6-10.4) mg/dL POC WB Ioniz Calcium (1.16-1.32) Magnesium 2.2 (1.6-2.5) mg/dL Total Bilirubin 0.5 (0.1-1.0) mg/dL Direct Bilirubin < 0.2 (0-0.3) mg/dL AST 45 H (<32) U/L ALT 52 H (<40) U/L Alkaline Phosphatase 216 H (39-117) U/L Total Protein 7.0 (5.9-8.4) gm/dL Albumin 4.2 (3.2-5.2) gm/dL Globulin 2.8 (2.2-3.7) gm/dL Lipase 7 (7-60) U/L Beta-Hydroxybutyrate 13.79 H (<0.27) mmol/L POC Troponin I (0.00-0.08) 03/20/23 03/20/23 03/20/23 Range/Units 13:08 13:10 13:10 WBC (4.5-11.0) K/mcL RBC (3.59-5.38) M/mcL Hgb (11.2-15.7) g/dL Hct (34.1-44.9) % POC Hct 39.0 (36-48) MCV (80.0-100.0) fL MCH (26.0-34.0) pg MCHC (31.0-36.0) g/dL RDW (11.5-14.5) % Plt Count (140-440) K/mcL MPV (8.8-12.5) fL Immature Gran % (Auto) (0.0-0.5) % Neut % (Auto) (38.0-78.0) % Lymph % (Auto) (15.5-49.0) % [place] % (Auto) (1.0-12.0) % Eos % (Auto) (0.0-7.0) % Baso % (Auto) (0.0-2.0) % Lymph # (Auto) (1.50-4.80) K/mcL [place] # (Auto) (0.10-0.90) K/mcL Eos # (Auto) (0.00-0.70) K/mcL Baso # (Auto) (0.00-0.30) K/mcL Immature Gran # (0.00-0.05) K/mcl Absolute Neutrophils (1.80-8.00) K/mcL POC VBG pH 7.08 L* (7.32-7.42) POC VBG pCO2 at Temp 16.3 L* (41-51) POC VBG pO2 40 (25-40) POC VBG HCO3 4.9 L* (24-28) POC VBG Total CO2 5.0 L (25-29) POC Venous O2 Sat 56.0 (40-70) POC VBG Base Excess -25.0 L (-2-2) VBG Lactic Acid 2.2 H (0.5-2) POC Sodium 119 L (133-145) Sodium (133-145) mmol/L POC Potassium 7.3 H* (3.3-5.1) Potassium (3.3-5.1) mmol/L POC Chloride 94 L (96-108) Chloride (96-108) mmol/L Carbon Dioxide (22-30) mmol/L POC Total CO2 8.0 L* (22-30) Anion Gap (8.0-16.0) POC Anion Gap 26.0 H (8.0-16.0) POC BUN 55 H (6-20) BUN (8-23) mg/dL Creatinine (0.6-1.1) mg/dL POC Creatinine 1.4 H (0.6-1.2) GFR Calculation Glucose (70-105) mg/dL POC Glucose > 700 H* (70-105) Calcium (8.6-10.4) mg/dL POC WB Ioniz Calcium 1.03 L (1.16-1.32) Magnesium (1.6-2.5) mg/dL Total Bilirubin (0.1-1.0) mg/dL Direct Bilirubin (0-0.3) mg/dL AST (<32) U/L ALT (<40) U/L Alkaline Phosphatase (39-117) U/L Total Protein (5.9-8.4) gm/dL Albumin (3.2-5.2) gm/dL Globulin (2.2-3.7) gm/dL Lipase (7-60) U/L Beta-Hydroxybutyrate (<0.27) mmol/L POC Troponin I < 0.02 (0.00-0.08) 03/20/23 Range/Units 13:59 WBC 14.2 H (4.5-11.0) K/mcL RBC 3.68 (3.59-5.38) M/mcL Hgb 10.8 L (11.2-15.7) g/dL Hct 34.8 (34.1-44.9) % POC Hct (36-48) MCV 94.6 (80.0-100.0) fL MCH 29.3 (26.0-34.0) pg MCHC 31.0 (31.0-36.0) g/dL RDW 14.1 (11.5-14.5) % Plt Count 261 (140-440) K/mcL MPV 10.6 (8.8-12.5) fL Immature Gran % (Auto) 1.2 H (0.0-0.5) % Neut % (Auto) 79.5 H (38.0-78.0) % Lymph % (Auto) 14.6 L (15.5-49.0) % [place] % (Auto) 4.5 (1.0-12.0) % Eos % (Auto) 0.1 (0.0-7.0) % Baso % (Auto) 0.1 (0.0-2.0) % Lymph # (Auto) 2.08 (1.50-4.80) K/mcL [place] # (Auto) 0.64 (0.10-0.90) K/mcL Eos # (Auto) 0.01 (0.00-0.70) K/mcL Baso # (Auto) 0.02 (0.00-0.30) K/mcL Immature Gran # 0.17 H (0.00-0.05) K/mcl Absolute Neutrophils 11.29 H (1.80-8.00) K/mcL POC VBG pH (7.32-7.42) POC VBG pCO2 at Temp (41-51) POC VBG pO2 (25-40) POC VBG HCO3 (24-28) POC VBG Total CO2 (25-29) POC Venous O2 Sat (40-70) POC VBG Base Excess (-2-2) VBG Lactic Acid (0.5-2) POC Sodium (133-145) Sodium (133-145) mmol/L POC Potassium (3.3-5.1) Potassium (3.3-5.1) mmol/L POC Chloride (96-108) Chloride (96-108) mmol/L Carbon Dioxide (22-30) mmol/L POC Total CO2 (22-30) Anion Gap (8.0-16.0) POC Anion Gap (8.0-16.0) POC BUN (6-20) BUN (8-23) mg/dL Creatinine (0.6-1.1) mg/dL POC Creatinine (0.6-1.2) GFR Calculation Glucose (70-105) mg/dL POC Glucose (70-105) Calcium (8.6-10.4) mg/dL POC WB Ioniz Calcium (1.16-1.32) Magnesium (1.6-2.5) mg/dL Total Bilirubin (0.1-1.0) mg/dL Direct Bilirubin (0-0.3) mg/dL AST (<32) U/L ALT (<40) U/L Alkaline Phosphatase (39-117) U/L Total Protein (5.9-8.4) gm/dL Albumin (3.2-5.2) gm/dL Globulin (2.2-3.7) gm/dL Lipase (7-60) U/L Beta-Hydroxybutyrate (<0.27) mmol/L POC Troponin I (0.00-0.08) Discharge Plan Patient/Caregiver Discharge Instructions Pt seen by CERTIFIED ADAPTED PHYSICAL EDUCATOR/PA only: No Clinical Impression: DKA (diabetic ketoacidosis) Patient Disposition: Xfer As Inpt ([facility]) Condition: Critical Follow up with: Eugenio March MD [Primary Care Provider] - Prescriptions: No Action albuterol sulfate [ProAir HFA] 90 mcg/actuation HFA aerosol inhaler 2 puff inhalation .q4-6h PRN (Reason: cough, shortness of breath, wheezing) Qty: 8.5 0RF Rx Instructions: administer with spacer insulin degludec [Tresiba U-100 Insulin] 100 unit/mL solution 23 unit subcut BID 30 Days Qty: 13.8 0RF gabapentin 400 mg capsule 400 mg PO QIDP PRN (Reason: Pain) Qty: 120 0RF propranolol 10 mg tablet 10 mg PO TID Qty: 90 5RF trazodone 100 mg tablet 100 mg PO HSP betamethasone valerate 0.1 % ointment 1 applic topical BID PRN (Reason: psoriosis) melatonin 1 mg tablet 4 mg PO HS PRN (Reason: sleep) ibuprofen 200 mg tablet 200 mg PO Q6H PRN (Reason: Pain) aspirin 81 mg tablet,delayed release (DR/EC) 81 mg PO QDAY Qty: 90 3RF atorvastatin [Lipitor] 40 mg tablet 40 mg PO QDAY Qty: 60 0RF cholecalciferol (vitamin D3) [Vitamin D3] 50 mcg (2,000 unit) capsule 100 mcg PO DAILY levothyroxine 125 mcg tablet 1 tab PO QAM (DME) True Metrix Glucose Test Strip Strip 1 strip MISCELLANEOUS QID hyoscyamine sulfate 0.125 mg tablet,disintegrating 0.125 mg sublingual Q6HP PRN (Reason: muscle spasm) diphenhydramine HCl [Sleep Aid (diphenhydramine)] 50 mg Capsule 50 mg PO QHS Zenpep 40,000-126,000- 168,000 unit capsule,delayed release(DR/EC) 1 cap PO TIDCC insulin aspart U-100 [Novolog FlexPen U-100 Insulin] 100 unit/mL (3 mL) insulin pen See Rx Instructions .ROUTE .COMPLEX Rx Instructions: see original instructions tramadol 50 mg tablet 50 mg PO Q8H PRN (Reason: pain) Qty: 20 0RF oxycodone 5 mg tablet 5 mg PO BID PRN (Reason: breakthrough pain) Qty: 20 0RF
[2023-03-20 14:19] LABS: Beta Hydroxybutyrate 13.79 mmol/L (<0.27)
[2023-03-20 14:21] LABS: Blood Urea Nitrogen 56 mg/dL (8-23); Calcium 8.7 mg/dL (8.6-10.4); Carbon Dioxide 5 mmol/L (22-30); Chloride 81 mmol/L (96-108); Glomerular Filtration Rate 31; Glucose 868 mg/dL (70-105)
[2023-03-20 14:27] LABS: Basophils # (Auto) 0.02 K/mcL (0.00-0.30); Basophils % (Auto) 0.1 % (0.0-2.0); Eosinophils # (Auto) 0.01 K/mcL (0.00-0.70); Eosinophils % (Auto) 0.1 % (0.0-7.0); Hematocrit 34.8 % (34.1-44.9); Hemoglobin 10.8 g/dL (11.2-15.7); Lymphocytes # (Auto) 2.08 K/mcL (1.50-4.80); Lymphocytes % (Auto) 14.6 % (15.5-49.0); Mean Cell Volume 94.6 fL (80.0-100.0); Mean Platelet Volume 10.6 fL (8.8-12.5); Monocytes # (Auto) 0.64 K/mcL (0.10-0.90); Monocytes % (Auto) 4.5 % (1.0-12.0); Neutrophils % (Auto) 79.5 % (38.0-78.0); Platelet Count 261 K/mcL (140-440); RBC 3.68 M/mcL (3.59-5.38); Red Cell Distribution Width 14.1 % (11.5-14.5); WBC 14.2 K/mcL (4.5-11.0)
[2023-03-20 15:10] LABS: ALT/SGPT 45 U/L (<40); AST/SGOT 37 U/L (<32); Albumin 3.5 gm/dL (3.2-5.2); Albumin/Globulin Ratio 1.3 (1.0-2.3); Alkaline Phosphatase 187 U/L (39-117); Bilirubin,Total 0.4 mg/dL (0.1-1.0); Blood Urea Nitrogen 58 mg/dL (8-23); Calcium 7.8 mg/dL (8.6-10.4); Carbon Dioxide 5 mmol/L (22-30); Chloride 85 mmol/L (96-108); Globulin 2.8 gm/dL (2.2-3.7); Glomerular Filtration Rate 33; Glucose 868 mg/dL (70-105)
--- NOTE | 2023-03-20 16:15 | Internal Med History&Physical ---
HPI History of Present Illness Patient information: Note initiated : 03/20/23 at 4:11 pm Service Date, if different from initiated Date: [] Patient: Tennille Castillo 77 y/o F admitted on . Chief Complaint: [] History of present illness: Ms. Castillo is a 77 year old female with history of diabetes mellitus 2, frequent DKA/HHS, chronic tremors, insomnia presented with 4 to 5 days history of nausea and vomiting and generalized weakness. Patient reported she was feeling sick, had vomiting once a day without any hematemesis, have some lower abdominal pain and was unable to take her insulin secondary to nausea. Patient reports mild constipation. She also is mildly confused as she cannot recall her insulin regimen however able to answer most questions appropriately. Patient reports she is feeling cold and fatigued and very weak. She reports no fever. No chest pain, no palpitations. Denies any cough, sputum production. Reports no urinary symptoms of dysuria, frequency. No recent travels or sick contacts. On presentation patient with tachypnea respiratory rate 26, tachycardia 99 bpm, blood pressure stable, afebrile. Lab work with leukocytosis of 14,000, chronic anemia with hemoglobin 10.8. Severe metabolic acidosis on VBG with pH 7.04, PCO2 16, HCO3 4.9, lactic acid 2.2. Hyponatremia of 119, hyperkalemia 7.3, hypochloremia 94, creatinine 1.6 up from 0.5 consistent with acute kidney injury, CO2 5, anion gap 36, glucose 868, beta-hydroxybutyrate elevated at 13. Negative troponin. EKG showed sinus rhythm at 88 bpm, mildly hyperacute T wave changes in anterior leads and nonspecific ST-T wave changes. Patient was star marya on DKA protocol and admitted to ICU. Review of system 14 point review of system completed. Pertinent positive and negative as mentioned above Physical examination CONSTITUTIONAL: 77 years old female, chronically ill-appearing, with some tachypnea but no acute distress. HEAD: Normocephalic. Atraumatic. EYES: EOMI PEERL ENT: No drooling stridor. speech clear fluent. Dry oral mucosa NECK: Supple. Full range of motion. Trachea midline CARDIOVASCULAR: S1-S2. Regular rate and rhythm, systolic murmur. +2 radial pulses bilaterally. PULMONARY: Tachypneic Kussmaul's breathing pattern. speaking full sentences. No use of accessory muscles. Clear to auscultation bilaterally. No rhonchi wheeze or crackles. ABDOMINAL: Positive bowel sounds. Soft. Nondistended. Nontender. EXTREMITIES: No gross deformities. Moves all 4 extremities with good strength and tone. SKIN: Warm and dry. No rash. No petechiae. NEUROLOGY: Sensation is intact. No gross focal deficits. Assessment and plan Diabetic ketoacidosis. Severe. Multiple admissions. Patient with poor self- care and noncompliance with insulin therapy. She stopped taking her Lantus and sliding scale. Admit patient to ICU on DKA protocol, insulin drip, every hour blood glucose monitoring. Correct electrolytes, repeat labs frequently. Patient was recently discharged on Lantus 24 units twice daily Severe metabolic acidosis with anion gap, secondary to above. Hyponatremia, corrected sodium 131. Secondary to nausea and vomiting. Expected to correct with IV fluids. Hypochloremia, expected to improve with IV fluids Hyperkalemia 7.3 with EKG changes. EKG with hyperacute T waves in anterior leads. Status post calcium gluconate, insulin. Abdominal pain. CT scan abdomen and pelvis ordered Leukocytosis. Likely reactive secondary to DKA. No respiratory symptoms. Patient does complain of some abdominal pain CT scan abdomen ordered after discussion with ER physician. UA has been ordered and still pending. Will hold off on any antibiotic therapy. #DM2 Poorly controlled insulin-dependent w/neuropathy: -A1c 10.1 in December #Metabolic encephalopathy secondary to DKA Acute kidney injury, secondary to volume depletion, on IV fluids Generalized weakness/deconditioning. PT OT #CAD: No chest pain. Troponin negative #Anemia, chronic: H/H stable #Hypothyroidism: cont levothyroxine #Chronic pancreatitis :Continue her home pancreatic enzyme supplements #Hypertriglyceridemia:Statin, fenofibrate #chronically elevated LFT's, improved from before #Essential tremor: on propranolol #chr back pain: continue pain medication #insomnia: Diphenhydramine, melatonin, trazadone #Long-term prognosis quite guarded with multiple admissions and poor compliance -6 admits 2021, 5 admits this year so far #CODE STATUS: DNR Critical care time > 90 minutes PFS PFS All Active Problems (Updated 03/20/23 @ 14:17 by Sharon Antoine MD) Acute UTI (Acute) DKA (diabetic ketoacidosis) (Acute) Confused (Acute) Anterior epistaxis (Chronic) Anemia (Chronic) Bimalleolar ankle fracture (Chronic) Elevated liver enzymes (Chronic) Chronic bronchitis with acute exacerbation (Chronic) Hypoxia (Chronic) Dehydration (Chronic) Epistaxis (Chronic) 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) Age-related osteoporosis with current pathological fracture, vertebra(e), initial encounter for fracture (Chronic) Pain in thoracic spine (Chronic) Low back pain (Chronic) Rectal pain (Chronic) Osteoporosis (Chronic) Hypertension (Chronic) Anxiety (Chronic) Depression (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) Chronic bronchitis (Chronic) Hypothyroidism (Chronic) History of surgery (Chronic) Dehiscence of closure of skin (Chronic) Sacrococcygeal pain (Chronic) Levator syndrome (Chronic) Insomnia (Chronic) Radiculopathy, lumbosacral region (Chronic) Radiculopathy, sacral and sacrococcygeal region (Chronic) DKA (diabetic ketoacidosis) (Chronic) Bronchitis (Chronic) Conjunctivitis (Chronic) Candidiasis of mouth (Chronic) Essential tremor (Chronic) Chronic pain (Chronic) Neuropathy (Chronic) Constipation (Chronic) Cirrhosis of liver (Chronic) Liver mass (Chronic) Chronic pancreatitis (Chronic) Abdominal pain (Chronic) Compression fracture of lumbosacral spine (Chronic) Fracture of lumbar spine (Chronic) Multiple environmental allergies (Chronic) Hard of hearing (Chronic) Stress (Chronic) Opioid dependence (Chronic) Diabetic retinopathy (Chronic) DDD (degenerative disc disease), cervical (Chronic) Fibromyalgia (Chronic) Glaucoma (Chronic) Hepatitis A (Chronic) Macular degeneration (Chronic) Pancreatitis (Chronic) Arthralgia (Chronic) Sleep disturbance (Chronic) Trigger finger (Chronic) Neurofibromatosis 2 (Chronic) Tremor (Chronic) Snoring (Chronic) Hypersomnia (Chronic) REM sleep behavior disorder (Chronic) Sleepwalking (Chronic) DKA (diabetic ketoacidosis) (Chronic) Vulvovaginitis due to yeast (Chronic) Obstructive sleep apnea (Chronic) Generalized weakness (Chronic) Acute dehydration (Chronic) Diabetic ketosis (Chronic) Acute dyspnea (Chronic) Hypomagnesemia (Chronic) Diabetic keto-acidosis (Chronic) Pseudohyponatremia (Chronic) DKA (diabetic ketoacidosis) (Chronic) Blood in urine (Chronic) Hypoglycemia (Chronic) DKA (diabetic ketoacidosis) (Chronic) Acute hyponatremia (Chronic) Acute hyperkalemia (Chronic) Acidosis, lactic (Chronic) Metabolic acidosis (Chronic) Compression fracture of body of thoracic vertebra (Chronic) Pain in rib (Chronic) 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) Chronic pain syndrome (Chronic) DKA, type 2 (Chronic) Hyperkalemia (Chronic) Mixed dyslipidemia (Chronic) Essential hypertension (Chronic) DKA, type 2 (Chronic) Clinical sepsis (Chronic) Septic shock (Chronic) Transaminitis (Chronic) Left renal mass (Chronic) Hypokalemia (Chronic) Hypoxemia (Chronic) Acute viral syndrome (Chronic) Schwannoma (Chronic) DKA (diabetic ketoacidosis) (Acute) Acidosis, lactic (Acute) Anemia, normocytic normochromic (Acute) Constipation (Acute) Abdominal pain, LLQ (Acute) Pancreatic insufficiency (Acute) Uncontrolled type 2 diabetes with neuropathy (Acute) CAD (coronary artery disease) (Acute) Medical History Abdominal pain Acute exacerbation of chronic obstructive airways disease Age-related osteoporosis with current pathological fracture, vertebra(e), initial encounter for fracture Anemia Anterior epistaxis Anxiety Arthralgia Bilateral primary osteoarthritis of hip Bimalleolar ankle fracture Blood in urine Bronchitis CAD (coronary artery disease) Candidiasis of mouth Chronic bronchitis with acute exacerbation Chronic pain Chronic pancreatitis Cirrhosis of liver Compression fracture of lumbosacral spine Conjunctivitis Constipation DDD (degenerative disc disease), cervical Dehiscence of closure of skin Dehydration Depression Diabetic retinopathy DKA (diabetic ketoacidosis) Elevated liver enzymes Epistaxis Essential tremor Fibromyalgia Fracture of lumbar spine Glaucoma Hard of hearing Hepatitis A Hyperglycemia due to type 2 diabetes mellitus Hypersomnia Hypertension Hypothyroidism Hypoxia Insomnia Levator syndrome Lipomatosis Liver mass Low back pain Macular degeneration Multiple environmental allergies Neurofibromatosis 2 Neuropathy Obstructive sleep apnea Did not tolerate CPAP Opioid dependence Osteoporosis Pain in thoracic spine Pancreatic insufficiency Pancreatitis Radiculopathy, lumbosacral region Radiculopathy, sacral and sacrococcygeal region Rectal pain REM sleep behavior disorder Sacrococcygeal pain Schwannoma Sleep disturbance Sleepwalking Snoring Stress Tremor Trigger finger Uncontrolled type 2 diabetes with neuropathy Surgical History History of appendectomy (~1970) History of arthroplasty of right ankle (~2018) History of cataract surgery (~2004) History of cholecystectomy History of colonoscopy (~06/26/18) History of decompression of median nerve (~2003) History of dilation and curettage History of eye surgery (~2005) Glaucoma History of hand surgery (~2003) Release of trigger finger, right History of left breast biopsy (~2005) History of oophorectomy History of surgery Vertebroplasty T12 w/sed 09/28/19 History of surgery retinopathy laser Stereotactic destruction of lesion using gamma radiation-2004 History of surgery on wrist History of tonsillectomy and adenoidectomy (~1969) Family History Mother Heart disease Fibromyalgia Father Malignant melanoma Malignant tumor of prostate Leukemia Social History lives independently: Yes marital status: education level: college occupational status: retired pets and animals: No other: 2 children physical activity: none smoking status: Never smoker alcohol intake frequency: does not drink substance use type: does not use seatbelt use: always working smoke detector in home: Yes carbon monox detector in home: Yes MEDS/ALLERGIES Home Medications and Allergies Home Medications Medication Instructions Recorded Confirmed Type blood sugar diagnostic (True 08/21/22 01/17/23 History Metrix Glucose Test Strip) levothyroxine 125 mcg tablet 1 tab PO QAM 08/21/22 02/25/23 History hyoscyamine sulfate 0.125 mg 0.125 mg sublingual Q6HP PRN 10/15/22 02/25/23 History disintegrating tablet muscle spasm diphenhydramine HCl 50 mg capsule 50 mg PO QHS 11/17/22 03/04/23 History (Sleep Aid (diphenhydramine)) buiwax-[id number]-[id number] 1 cap PO TIDCC 11/17/22 02/26/23 History 40,000-126,000-168,000 unit capsule, delay rel (Zenpep) aspirin 81 mg tablet,delayed 81 mg PO QDAY #90 tabs 01/17/23 02/25/23 Rx release atorvastatin 40 mg tablet (Lipitor) 40 mg PO QDAY #60 tabs 01/17/23 02/25/23 Rx betamethasone valerate 0.1 % 1 applic topical BID PRN psoriosis 01/17/23 03/04/23 History topical ointment cholecalciferol (vitamin D3) 50 100 mcg PO DAILY 01/17/23 03/04/23 History mcg (2,000 unit) capsule (Vitamin D3) ibuprofen 200 mg tablet 200 mg PO Q6H PRN Pain 01/17/23 03/04/23 History melatonin 1 mg tablet 4 mg PO HS PRN sleep 01/17/23 03/04/23 History trazodone 100 mg tablet 100 mg PO HSP insomnia 01/17/23 02/25/23 History albuterol sulfate 90 mcg/actuation 2 puff inhalation .q4-6h PRN 01/22/23 02/25/23 Rx aerosol inhaler (ProAir HFA) cough, shortness of breath, wheezing #8.5 grams insulin degludec 100 unit/mL 23 unit (0.23 mL) subcut BID 30 02/14/23 02/25/23 Rx subcutaneous solution (Tresiba days #13.8 mL U-100 Insulin) insulin aspart U-100 100 unit/mL See Rx Instructions .Route .COMPLEX 02/25/23 02/26/23 History (3 mL) subcutaneous pen (Novolog FlexPen U-100 Insulin aspart) gabapentin 400 mg capsule 400 mg PO QIDP PRN Pain #120 caps 02/26/23 03/04/23 Rx oxycodone 5 mg tablet 5 mg PO BID PRN breakthrough pain 03/04/23 Rx #20 tabs tramadol 50 mg tablet 50 mg PO Q8H PRN pain #20 tabs 03/04/23 Rx propranolol 10 mg tablet 10 mg PO TID #90 tabs 03/05/23 Rx Allergies Allergy/AdvReac Type Severity Reaction Status Date / Time cephalexin [From Keflex] Allergy Intermediate Swelling Verified 02/25/23 21:13 lidocaine Allergy Intermediate Blister Verified 02/25/23 21:13 fenugreek Allergy Mild Itching Verified 02/25/23 21:13 Penicillins Allergy Mild Rash Verified 02/25/23 21:13 Anistreplase [From Eminase] Allergy Unknown UNKNOWN Verified 02/25/23 21:13 codeine AdvReac Mild Itching Verified 02/25/23 21:13 Erythromycin Base AdvReac Mild Itching Verified 02/25/23 21:13 Nortriptyline AdvReac Mild Nausea Verified 02/25/23 21:13 promethazine AdvReac Mild Fainting Verified 02/25/23 21:13 trulicity AdvReac Intermediate Other Uncoded 01/17/23 12:53 EXAM Constitutional Vitals: Temp Pulse Resp BP Pulse Ox O2 Del Method 97.6 F 95 H 19 119/31 100 Room Air 03/20/23 12:29 03/20/23 15:14 03/20/23 16:11 03/20/23 12:29 03/20/23 15:14 03/20/23 12:29 DATA Data Completed and Pending Labs: Labs from last 24 hours 03/20/23 03/20/23 03/20/23 13:59 13:59 13:10 WBC 14.2 H RBC 3.68 Hgb 10.8 L Hct 34.8 POC Hct MCV 94.6 MCH 29.3 MCHC 31.0 RDW 14.1 Plt Count 261 MPV 10.6 Immature Gran % (Auto) 1.2 H Neut % (Auto) 79.5 H Lymph % (Auto) 14.6 L [place] % (Auto) 4.5 Eos % (Auto) 0.1 Baso % (Auto) 0.1 Lymph # (Auto) 2.08 [place] # (Auto) 0.64 Eos # (Auto) 0.01 Baso # (Auto) 0.02 Immature Gran # 0.17 H Absolute Neutrophils 11.29 H POC VBG pH 7.08 L* POC VBG pCO2 at Temp 16.3 L* POC VBG pO2 40 POC VBG HCO3 4.9 L* POC VBG Total CO2 5.0 L POC Venous O2 Sat 56.0 POC VBG Base Excess -25.0 L VBG Lactic Acid 2.2 H POC Sodium Sodium 120 L POC Potassium Potassium 6.8 H* POC Chloride Chloride 85 L Carbon Dioxide 5 L* POC Total CO2 Anion Gap 30.0 H POC Anion Gap POC BUN BUN 58 H Creatinine 1.5 H POC Creatinine GFR Calculation 33 Glucose 868 H* POC Glucose Calcium 7.8 L POC WB Ioniz Calcium Magnesium Total Bilirubin 0.4 Direct Bilirubin AST 37 H ALT 45 H Alkaline Phosphatase 187 H Total Protein 6.3 Albumin 3.5 Globulin 2.8 Albumin/Globulin Ratio 1.3 Lipase Beta-Hydroxybutyrate POC Troponin I 03/20/23 03/20/23 03/20/23 13:10 13:08 13:05 WBC RBC Hgb Hct POC Hct 39.0 MCV MCH MCHC RDW Plt Count MPV Immature Gran % (Auto) Neut % (Auto) Lymph % (Auto) [place] % (Auto) Eos % (Auto) Baso % (Auto) Lymph # (Auto) [place] # (Auto) Eos # (Auto) Baso # (Auto) Immature Gran # Absolute Neutrophils POC VBG pH POC VBG pCO2 at Temp POC VBG pO2 POC VBG HCO3 POC VBG Total CO2 POC Venous O2 Sat POC VBG Base Excess VBG Lactic Acid POC Sodium 119 L Sodium 120 L POC Potassium 7.3 H* Potassium 7.5 H* POC Chloride 94 L Chloride 79 L Carbon Dioxide 4 L* POC Total CO2 8.0 L* Anion Gap 37.0 H POC Anion Gap 26.0 H POC BUN 55 H BUN Creatinine POC Creatinine 1.4 H GFR Calculation Glucose POC Glucose > 700 H* Calcium POC WB Ioniz Calcium 1.03 L Magnesium 2.2 Total Bilirubin Direct Bilirubin AST ALT Alkaline Phosphatase Total Protein Albumin Globulin Albumin/Globulin Ratio Lipase Beta-Hydroxybutyrate POC Troponin I < 0.02 03/20/23 03/20/23 13:05 13:05 WBC RBC Hgb Hct POC Hct MCV MCH MCHC RDW Plt Count MPV Immature Gran % (Auto) Neut % (Auto) Lymph % (Auto) [place] % (Auto) Eos % (Auto) Baso % (Auto) Lymph # (Auto) [place] # (Auto) Eos # (Auto) Baso # (Auto) Immature Gran # Absolute Neutrophils POC VBG pH POC VBG pCO2 at Temp POC VBG pO2 POC VBG HCO3 POC VBG Total CO2 POC Venous O2 Sat POC VBG Base Excess VBG Lactic Acid POC Sodium Sodium 122 L POC Potassium Potassium 7.5 H* POC Chloride Chloride 81 L Carbon Dioxide 5 L* POC Total CO2 Anion Gap 36.0 H POC Anion Gap POC BUN BUN 56 H Creatinine 1.6 H POC Creatinine GFR Calculation 31 Glucose 868 H* POC Glucose Calcium 8.7 POC WB Ioniz Calcium Magnesium Total Bilirubin 0.5 Direct Bilirubin < 0.2 AST 45 H ALT 52 H Alkaline Phosphatase 216 H Total Protein 7.0 Albumin 4.2 Globulin 2.8 Albumin/Globulin Ratio Lipase 7 Beta-Hydroxybutyrate 13.79 H POC Troponin I A/P Time Spent With Patient Time: Total time spent is greater than 50% in coordination of care (as documented) at patient's floor/unit and/or counseling patient:
[2023-03-20] MEDS ORDERED: PROMETHAZINE 25 MG/ML VIAL IV PRN (16:57)
[2023-03-20] MEDS ORDERED: ACETAMINOPHEN 325 MG TABLET PO PRN (16:57)
[2023-03-20] MEDS ORDERED: SENNOSIDES 1 TABLET PO PRN (16:57)
[2023-03-20] MEDS ORDERED: HYDROmorphone 0.5 MG/0.5 ML SYRINGE IV PRN (16:57)
[2023-03-20] MEDS ORDERED: MAG HYDROX/AL HYDROX/SIMETH 30 ML ORAL.SUSP PO PRN (16:57)
--- NOTE | 2023-03-20 17:08 | Cat Scan Report ---
History: Nausea, vomiting, abdominal pain, diabetic with hyperglycemia TECHNIQUE: The abdomen was imaged without contrast in axial plane at 2.5 mm intervals. Sagittal and coronal reformats were created. The radiation exposure was limited using dose reduction technology. FINDINGS: The lung bases are clear. Evaluation of the abdominal organs without contrast is somewhat limited. The liver is normal in size and homogeneous. There are multiple varices in the left upper quadrant. Radiographically the liver does not appear cirrhotic. Spleen is normal in size and homogeneous. The splenic vein is patent. The varices are unchanged from the prior CT done on 01/12/23. The gallbladder is surgically absent. The bile ducts are relatively large but have remained stable since 01/12/23. No stone is seen within the duct. The pancreas is difficult to evaluate but there is no evidence of acute pancreatitis and no gross pancreatic mass. The adrenals and kidneys are normal. There is no kidney stone or hydronephrosis. Stomach is normally distended. Small intestine is normal in caliber. Normal quantity of stool is present in the large intestine. Noninflamed diverticula are present in the sigmoid colon. There is no mass ascites or abscess in the abdomen or pelvis. There is a catheter in the urinary bladder. The catheter has been advanced high into the right side of the bladder causing tethering of the bladder wall. It has not penetrated through the wall. The uterus and ovaries are absent. There is a moderate amount of subcutaneous scar tissue in the anterior abdominal wall. This may be from multiple prior injections. There is no abdominal wall abscess. There are multiple old compression fractures in the lower thoracic and upper lumbar spine, unchanged since 01/12/23. IMPRESSION: No acute abnormality Dr. Antoine was called with the report Interpreted and Authenticated by: Allan Lawler 03/20/23
[2023-03-20] MEDS: LACTATED RINGERS 1,000 ML IV SCH (17:30)
[2023-03-20 17:46] LABS: Blood Urea Nitrogen 58 mg/dL (8-23); Calcium 8.4 mg/dL (8.6-10.4); Carbon Dioxide 5 mmol/L (22-30); Chloride 90 mmol/L (96-108); Glomerular Filtration Rate 31; Glucose 678 mg/dL (70-105)
[2023-03-20 18:02] LABS: ABG Methemoglobin 0.4 % (0.4-1.5); Total Hemoglobin 11.5 gm/Dl (12.0-15.0); VBG Base Excess -22 (-2-3); VBG HCO3 6.5 mmol/L (24.0-28.0); VBG Oxygen Saturation 84.7 % (40.0-70.0); VBG PCO2 23.4 mmHg (41.0-51.0); VBG PH 7.06 U (7.32-7.42); VBG PO2 65.6 mmHg (25.0-40.0); VBG Total CO2 7.2 mmol/L (25.0-29.0)
[2023-03-20] MEDS: INSULIN REGULAR, HUMAN 50 UNIT in 0.9 % SODIUM CHLORIDE 100 ML IV SCH ×2 (18:29→22:06)
[2023-03-20] MEDS ORDERED: INSULIN REGULAR, HUMAN 1 UNIT/0.01 ML UNIT ONE ×4 (18:38→22:06)
[2023-03-20 18:50] LABS: Blood Urea Nitrogen 56 mg/dL (8-23); Calcium 7.8 mg/dL (8.6-10.4); Carbon Dioxide 6 mmol/L (22-30); Chloride 97 mmol/L (96-108); Glomerular Filtration Rate 39; Glucose 592 mg/dL (70-105)
[2023-03-20 19:43] LABS: Estimated Average Glucose(eAG) 263 mg/dL; Hemoglobin A1C 10.8 % Hgb (4.0-6.0)
[2023-03-20] MEDS: 0.9 % SODIUM CHLORIDE 10 ML SYRINGE IV SCH (20:59)
[2023-03-21] MEDS: DEXTROSE 5%-LR 1,000 ML IV SCH ×2 (00:15→10:45)
[2023-03-21] MEDS ORDERED: INSULIN REGULAR, HUMAN 1 UNIT/0.01 ML UNIT ONE (01:13)
[2023-03-21] MEDS: INSULIN REGULAR, HUMAN 50 UNIT in 0.9 % SODIUM CHLORIDE 100 ML IV SCH (01:24)
[2023-03-21] MEDS ORDERED: DEXTROSE 50% 50 ML SYRINGE IV ONE ×3 (02:08→07:26)
[2023-03-21] MEDS: DEXTROSE 50% 50 ML VIAL IV PRN ×3 (02:11→07:32)
[2023-03-21 02:24] LABS: Blood Urea Nitrogen 46 mg/dL (8-23); Calcium 8.2 mg/dL (8.6-10.4); Carbon Dioxide 17 mmol/L (22-30); Chloride 107 mmol/L (96-108); Glomerular Filtration Rate 54; Glucose 72 mg/dL (70-105)
[2023-03-21] MEDS: 0.9 % SODIUM CHLORIDE 10 ML SYRINGE IV SCH ×3 (05:28→21:05)
[2023-03-21] MEDS: LACTATED RINGERS 1,000 ML IV SCH ×3 (05:30→19:04)
[2023-03-21 07:41] LABS: Basophils # (Auto) 0.02 K/mcL (0.00-0.30); Basophils % (Auto) 0.1 % (0.0-2.0); Eosinophils # (Auto) 0.07 K/mcL (0.00-0.70); Eosinophils % (Auto) 0.5 % (0.0-7.0); Hematocrit 31.8 % (34.1-44.9); Lymphocytes # (Auto) 1.48 K/mcL (1.50-4.80); Lymphocytes % (Auto) 9.9 % (15.5-49.0); Mean Cell Volume 84.8 fL (80.0-100.0); Mean Corpuscular HGB Conc 34.6 g/dL (31.0-36.0); Mean Platelet Volume 9.9 fL (8.8-12.5); Monocytes # (Auto) 0.84 K/mcL (0.10-0.90); Monocytes % (Auto) 5.6 % (1.0-12.0); Neutrophils % (Auto) 83.6 % (38.0-78.0); Platelet Count 209 K/mcL (140-440); RBC 3.75 M/mcL (3.59-5.38); Red Cell Distribution Width 13.9 % (11.5-14.5)
[2023-03-21 07:43] LABS: ABG Methemoglobin 0.6 % (0.4-1.5); Total Hemoglobin 12.4 gm/Dl (12.0-15.0); VBG Base Excess -5 (-2-3); VBG Oxygen Saturation 92.2 % (40.0-70.0); VBG PCO2 31.7 mmHg (41.0-51.0); VBG PO2 140.4 mmHg (25.0-40.0); VBG Total CO2 19.9 mmol/L (25.0-29.0)
[2023-03-21] MEDS ORDERED: GABAPENTIN 400 MG CAPSULE PO PRN (08:37)
[2023-03-21] MEDS ORDERED: ALBUTEROL SULFATE 60 PUFF INHALER INH PRN (08:42)
[2023-03-21] MEDS ORDERED: IBUPROFEN 200 MG TABLET PO PRN (08:48)
--- NOTE | 2023-03-21 08:48 | Internal Med Progress Note ---
SUBJECTIVE Subjective Patient information: Note initiated : 03/21/23 at 8:35 am Service Date, if different from initiated Date: [] Patient: Tennille Castillo 77 y/o F admitted on 03/20/23. Chief Complaint: [] Additional PMFSH (Level 3 Only): Ms. Castillo is a 77 year old female with history of diabetes mellitus 2, frequent DKA/HHS, chronic tremors, insomnia presented with 4 to 5 days history of nausea and vomiting and generalized weakness. Patient reported she was feeling sick, had vomiting once a day without any hematemesis, have some lower abdominal pain and was unable to take her insulin secondary to nausea. Patient reports mild constipation. She also is mildly confused as she cannot recall her insulin regimen however able to answer most questions appropriately. Patient reports she is feeling cold and fatigued and very weak. She reports no fever. No chest pain, no palpitations. Denies any cough, sputum production. Reports no ur inary symptoms of dysuria, frequency. No recent travels or sick contacts. On presentation patient with tachypnea respiratory rate 26, tachycardia 99 bpm, blood pressure stable, afebrile. Lab work with leukocytosis of 14,000, chronic anemia with hemoglobin 10.8. Severe metabolic acidosis on VBG with pH 7.04, PCO2 16, HCO3 4.9, lactic acid 2.2. Hyponatremia of 119, hyperkalemia 7.3, hypochloremia 94, creatinine 1.6 up from 0.5 consistent with acute kidney injury, CO2 5, anion gap 36, glucose 868, beta-hydroxybutyrate elevated at 13. Negative troponin. EKG showed sinus rhythm at 88 bpm, mildly hyperacute T wave changes in anterior leads and nonspecific ST-T wave changes. Patient was s tarted on DKA protocol and admitted to ICU. 03/21. Patient remains on IV insulin drip, glucose was down to 60s and was given D50 with appropriate improvement in blood glucose. Feels better but remains fatigued and tired. No nausea or vomiting. Some back pain. Discussed results of abdominal CT scan, no acute finding. Leukocytosis remains. Hyponatremia resolved. Anion gap closed, patient is still acidotic. Beta-hydroxybutyrate down to 0.42 from 13 Review of system 14 point review of system completed. Pertinent positive and negative as mentioned above Physical examination CONSTITUTIONAL: Alert and awake, chronically ill-appearing, in no acute distress HEAD: Normocephalic. Atraumatic. EYES: EOMI PEERL ENT: No drooling stridor. speech clear fluent. Dry oral mucosa NECK: Supple. Full range of motion. Trachea midline CARDIOVASCULAR: S1-S2. Regular rate and rhythm, systolic murmur. +2 radial pulses bilaterally. PULMONARY: Chest is clear bilaterally ABDOMINAL: Abdomen is soft and nontender EXTREMITIES: No gross deformities. Moves all 4 extremities with good strength and tone. SKIN: Warm and dry. No rash. No petechiae. NEUROLOGY: Sensation is intact. No gross focal deficits. Assessment and plan Diabetic ketoacidosis. Severe. Multiple admissions. Patient with poor self- care and noncompliance with insulin therapy. She stopped taking her Lantus and sliding scale. DKA improving. Anion gap closed however patient is still acidotic. Patient on IV insulin drip, will start her on Lantus 15 units twice daily and will overlap with IV insulin and will start diet. Severe metabolic acidosis with anion gap, secondary to above. Hyponatremia, corrected sodium 131. Secondary to nausea and vomiting. Resolved Hypochloremia, improving Hyperkalemia 7.3 with EKG changes. EKG with hyperacute T waves in anterior leads. Status post calcium gluconate, insulin. Now resolved Abdominal pain. CT scan abdomen and pelvis without any acute finding. Leukocytosis. Likely reactive secondary to DKA. No respiratory symptoms. CT scan abdomen and pelvis negative UA unremarkable. Will hold off on any antibiotic therapy. #DM2 Poorly controlled insulin-dependent w/neuropathy: -HbA1c of 10.8 on 03/20/2023 #Metabolic encephalopathy secondary to DKA, resolving Acute kidney injury, secondary to volume depletion, resolved with IV fluids Generalized weakness/deconditioning. PT OT #CAD: No chest pain. Troponin negative #Anemia, chronic: H/H stable #Hypothyroidism: cont levothyroxine #Chronic pancreatitis :Continue her home pancreatic enzyme supplements #Hypertriglyceridemia:Statin, fenofibrate #chronically elevated LFT's, improved from before #Essential tremor: on propranolol #chr back pain: continue pain medication #insomnia: Diphenhydramine, melatonin, trazadone #Long-term prognosis quite guarded with multiple admissions and poor compliance -6 admits 2021, 5 admits this year so far #CODE STATUS: DNR Critical care time > 50 minutes Constitutional Vitals: Vital Signs Temp Pulse Resp BP Pulse Ox O2 Del Method 97.8 F 88 12 135/54 99 Room Air 03/21/23 04:01 03/21/23 07:01 03/21/23 07:01 03/21/23 07:01 03/21/23 07:01 03/21/23 07:01 Period Temp Pulse Resp BP Sys/Rosario Pulse Ox O2 Del Method O2 Flow Rate Last 24 Hr 97.5 F-98.2 F 81-96 12-26 101-138/31-71 95-100 Room Air-Room Air Intake and Output 03/20/23 03/21/23 03/21/23 19:59 03:59 11:59 Intake Total 4117 714.5 39 Output Total 698 410 705 Balance 3419 304.5 -666 Weight 67.222 kg Intake & Output: Intake & Output 03/20/23 03/21/23 03/21/23 19:59 03:59 11:59 Intake Total 4117 714.5 39 Output Total 698 410 705 Balance 3419 304.5 -666 Weight 67.222 kg Intake: IV 4117 714.5 39 Sodium Chloride 0.9% 1,000 ml @ 4000 Wide Open IV [facility] Rx#: [id number] HumuLIN R 50 UNIT In Sodium 117 208.5 39 Chloride 0.9% 100 ml @ 0.02 UNIT/KG/HR 2.662 mls/hr IV DUR [facility] Rx#:[id number] Lactated Ringers 1,000 ml @ 75 506 mls/hr IV .[id number] [facility] Rx#: [id number] Oral 0 Output: Urine Catheter Amount 698 410 705 Other: Urine Appearance Clear Clear Clear Uretheral (Alcazar) Clear Urine Color Yellow Pale Yellow Uretheral (Alcazar) Yellow OBJ DATA Labs 03/21/23 07:10 03/21/23 05:28 Labs: Abnormal Lab Results 03/21/23 03/21/23 03/21/23 07:10 07:10 07:10 WBC 15.0 H Hgb 11.0 L Hct 31.8 L Immature Gran % (Auto) Neut % (Auto) 83.6 H Lymph % (Auto) 9.9 L Lymph # (Auto) 1.48 L Immature Gran # Absolute Neutrophils 12.50 H VBG pH POC VBG pH VBG pCO2 31.7 L POC VBG pCO2 at Temp VBG pO2 140.4 H VBG HCO3 19.0 L POC VBG HCO3 VBG Total CO2 19.9 L POC VBG Total CO2 VBG O2 Saturation 92.2 H VBG Base Excess -5 L POC VBG Base Excess VBG Lactic Acid Carboxyhemoglobin 5.4 H Total Hemoglobin POC Sodium Sodium POC Potassium Potassium POC Chloride Chloride Carbon Dioxide POC Total CO2 Anion Gap POC Anion Gap POC BUN BUN Creatinine POC Creatinine Glucose POC Glucose Hemoglobin A1c Calcium POC WB Ioniz Calcium AST ALT Alkaline Phosphatase Beta-Hydroxybutyrate 0.42 H 03/21/23 03/21/23 03/20/23 05:28 01:20 21:45 WBC Hgb Hct Immature Gran % (Auto) Neut % (Auto) Lymph % (Auto) Lymph # (Auto) Immature Gran # Absolute Neutrophils VBG pH POC VBG pH VBG pCO2 POC VBG pCO2 at Temp VBG pO2 VBG HCO3 POC VBG HCO3 VBG Total CO2 POC VBG Total CO2 VBG O2 Saturation VBG Base Excess POC VBG Base Excess VBG Lactic Acid Carboxyhemoglobin Total Hemoglobin POC Sodium Sodium 132 L POC Potassium Potassium POC Chloride Chloride 109 H Carbon Dioxide 19 L 17 L 12 L POC Total CO2 Anion Gap 17.0 H POC Anion Gap POC BUN BUN 46 H Creatinine POC Creatinine Glucose POC Glucose Hemoglobin A1c Calcium 8.2 L POC WB Ioniz Calcium AST ALT Alkaline Phosphatase Beta-Hydroxybutyrate 03/20/23 03/20/23 03/20/23 17:29 17:27 16:16 WBC Hgb Hct Immature Gran % (Auto) Neut % (Auto) Lymph % (Auto) Lymph # (Auto) Immature Gran # Absolute Neutrophils VBG pH 7.06 L* POC VBG pH VBG pCO2 23.4 L POC VBG pCO2 at Temp VBG pO2 65.6 H VBG HCO3 6.5 L* POC VBG HCO3 VBG Total CO2 7.2 L* POC VBG Total CO2 VBG O2 Saturation 84.7 H VBG Base Excess -22 L POC VBG Base Excess VBG Lactic Acid Carboxyhemoglobin 4.2 H Total Hemoglobin 11.5 L POC Sodium Sodium 129 L 127 L POC Potassium Potassium POC Chloride Chloride 90 L Carbon Dioxide 6 L* 5 L* POC Total CO2 Anion Gap 26.0 H 32.0 H POC Anion Gap POC BUN BUN 56 H 58 H Creatinine 1.3 H 1.6 H POC Creatinine Glucose 592 H* 678 H* POC Glucose Hemoglobin A1c 10.8 H Calcium 7.8 L 8.4 L POC WB Ioniz Calcium AST ALT Alkaline Phosphatase Beta-Hydroxybutyrate 03/20/23 03/20/23 03/20/23 13:59 13:59 13:10 WBC 14.2 H Hgb 10.8 L Hct Immature Gran % (Auto) 1.2 H Neut % (Auto) 79.5 H Lymph % (Auto) 14.6 L Lymph # (Auto) Immature Gran # 0.17 H Absolute Neutrophils 11.29 H VBG pH POC VBG pH 7.08 L* VBG pCO2 POC VBG pCO2 at Temp 16.3 L* VBG pO2 VBG HCO3 POC VBG HCO3 4.9 L* VBG Total CO2 POC VBG Total CO2 5.0 L VBG O2 Saturation VBG Base Excess POC VBG Base Excess -25.0 L VBG Lactic Acid 2.2 H Carboxyhemoglobin Total Hemoglobin POC Sodium Sodium 120 L POC Potassium Potassium 6.8 H* POC Chloride Chloride 85 L Carbon Dioxide 5 L* POC Total CO2 Anion Gap 30.0 H POC Anion Gap POC BUN BUN 58 H Creatinine 1.5 H POC Creatinine Glucose 868 H* POC Glucose Hemoglobin A1c Calcium 7.8 L POC WB Ioniz Calcium AST 37 H ALT 45 H Alkaline Phosphatase 187 H Beta-Hydroxybutyrate 03/20/23 03/20/23 03/20/23 13:08 13:05 13:05 WBC Hgb Hct Immature Gran % (Auto) Neut % (Auto) Lymph % (Auto) Lymph # (Auto) Immature Gran # Absolute Neutrophils VBG pH POC VBG pH VBG pCO2 POC VBG pCO2 at Temp VBG pO2 VBG HCO3 POC VBG HCO3 VBG Total CO2 POC VBG Total CO2 VBG O2 Saturation VBG Base Excess POC VBG Base Excess VBG Lactic Acid Carboxyhemoglobin Total Hemoglobin POC Sodium 119 L Sodium 120 L 122 L POC Potassium 7.3 H* Potassium 7.5 H* 7.5 H* POC Chloride 94 L Chloride 79 L 81 L Carbon Dioxide 4 L* 5 L* POC Total CO2 8.0 L* Anion Gap 37.0 H 36.0 H POC Anion Gap 26.0 H POC BUN 55 H BUN 56 H Creatinine 1.6 H POC Creatinine 1.4 H Glucose 868 H* POC Glucose > 700 H* Hemoglobin A1c Calcium POC WB Ioniz Calcium 1.03 L AST ALT Alkaline Phosphatase Beta-Hydroxybutyrate 03/20/23 13:05 WBC Hgb Hct Immature Gran % (Auto) Neut % (Auto) Lymph % (Auto) Lymph # (Auto) Immature Gran # Absolute Neutrophils VBG pH POC VBG pH VBG pCO2 POC VBG pCO2 at Temp VBG pO2 VBG HCO3 POC VBG HCO3 VBG Total CO2 POC VBG Total CO2 VBG O2 Saturation VBG Base Excess POC VBG Base Excess VBG Lactic Acid Carboxyhemoglobin Total Hemoglobin POC Sodium Sodium POC Potassium Potassium POC Chloride Chloride Carbon Dioxide POC Total CO2 Anion Gap POC Anion Gap POC BUN BUN Creatinine POC Creatinine Glucose POC Glucose Hemoglobin A1c Calcium POC WB Ioniz Calcium AST 45 H ALT 52 H Alkaline Phosphatase 216 H Beta-Hydroxybutyrate 13.79 H Meds: Medications Acetaminophen (Acetaminophen 325 Mg Tablet) 650 mg PO Q4-6HP PRN; Protocol PRN Reason: Per Pain Protocol/Fever > 101 Al Hydrox/Mg Hydrox/Simethicone (Mag Hydrox/Al Hydrox/Simeth 30 Ml Oral.Susp) 30 ml PO Q4-6HP PRN PRN Reason: Dyspepsia Dextrose (Dextrose 50% 50 Ml Vial) 25 ml IV UD PRN PRN Reason: Hypoglycemia Last Admin: 03/21/23 07:32 Dose: 25 ml Diagnostic Test (Pha) (Accu-Chek 1 Each Strip) 1 each FS Q1 PEG Last Admin: 03/21/23 08:00 Dose: 1 each Hydromorphone HCl (Hydromorphone 0.5 Mg/0.5 Ml Syringe) 0.5 mg IV Q6H PRN; Protocol PRN Reason: Per Pain Protocol Lactated Ringer's (Lactated Ringers) 1,000 mls @ 75 mls/hr IV .[id number] PEG Last Admin: 03/21/23 05:30 Dose: Not Given Insulin Human Regular 50 unit/ (Sodium Chloride) 100.5 mls @ 2.662 mls/hr IV DUR [facility]; Protocol Last Titration: 03/21/23 08:01 Dose: 0.02 unit/kg/hr, 2 mls/hr Dextrose/Lactated Ringer's (Dextrose 5%-Lactated Ringers) 1,000 mls @ 100 mls/hr IV .Q10H [facility] Last Admin: 03/21/23 00:15 Dose: 100 mls/hr Ondansetron HCl (Ondansetron 4 Mg/2 Ml Vial) 4 mg IV Q4-6HP PRN; Protocol PRN Reason: Nausea And Vomiting Promethazine HCl (Promethazine 25 Mg/Ml Vial) 12.5 mg IV Q4-6HP PRN; Protocol PRN Reason: Nausea And Vomiting Senna (Sennosides 1 Tablet) 1 tab PO HSP PRN PRN Reason: Constipation Sodium Chloride (0.9 % Sodium Chloride 10 Ml Syringe) 10 ml IV Q8 [facility] Last Admin: 03/21/23 05:28 Dose: Not Given ABG Interpretation ABG results: 03/20/23 03/21/23 17:27 07:10 ABG Methemoglobin 0.4 0.6 VBG pH 7.06 L* 7.40 VBG pCO2 23.4 L 31.7 L VBG pO2 65.6 H 140.4 H VBG HCO3 6.5 L* 19.0 L VBG Total CO2 7.2 L* 19.9 L VBG O2 Saturation 84.7 H 92.2 H VBG Base Excess -22 L -5 L A/P Time Spent With Patient Time: Total time spent is greater than 50% in coordination of care (as documented) at patient's floor/unit and/or counseling patient: QUALITY Stroke Symptom Onset Unknown: No
[2023-03-21] MEDS ORDERED: BETAMETHASONE VALERATE 0.1% TOPICAL PRN (08:52)
[2023-03-21] MEDS: INSULIN GLARGINE, HUMAN 1 UNIT/0.01 ML SQ SCH ×2 (09:21→21:05)
[2023-03-21] MEDS: ASPIRIN 81 MG TAB.CHEW PO SCH (09:21)
[2023-03-21] MEDS: LEVOTHYROXINE 125 MCG TABLET PO SCH (09:21)
[2023-03-21] MEDS: PROPRANOLOL 10 MG TABLET PO SCH ×3 (09:21→21:05)
[2023-03-21] MEDS: ATORVASTATIN 40 MG TABLET PO SCH (09:22)
[2023-03-21] MEDS: VITAMIN D3 25 MCG TABLET PO SCH (09:22)
[2023-03-21] MEDS: traMADol 50 MG TABLET PO PRN ×2 (09:22→21:06)
[2023-03-21] MEDS ORDERED: DEXTROSE 50% 50 ML VIAL IV PRN (11:40)
[2023-03-21] MEDS ORDERED: DEXTROSE 31 GM ORAL.SUSP PO PRN (11:40)
[2023-03-21] MEDS: LIPASE PROTEASE AMYLASE PO SCH ×2 (11:50→16:59)
[2023-03-21] MEDS: INSULIN LISPRO 1 UNIT/0.01 ML UNIT SQ SCH ×6 (11:55→21:04)
[2023-03-21] MEDS ORDERED: INSULIN LISPRO 1 UNIT/0.01 ML UNIT SQ SCH (17:00)
[2023-03-21] MEDS: diphenhydrAMINE 25 MG CAPSULE PO SCH (21:05)
[2023-03-21 22:15] LABS: Carbon Dioxide 19 mmol/L (22-30); Chloride 104 mmol/L (96-108)
[2023-03-22] MEDS: 0.9 % SODIUM CHLORIDE 10 ML SYRINGE IV SCH ×3 (05:52→21:23)
[2023-03-22] MEDS: LACTATED RINGERS 1,000 ML IV SCH ×4 (05:53→22:43)
[2023-03-22] MEDS: LIPASE PROTEASE AMYLASE PO SCH ×3 (06:39→17:10)
[2023-03-22] MEDS: INSULIN LISPRO 1 UNIT/0.01 ML UNIT SQ SCH ×6 (07:32→21:21)
[2023-03-22] MEDS: LEVOTHYROXINE 125 MCG TABLET PO SCH (07:32)
[2023-03-22 07:34] LABS: ALT/SGPT 97 U/L (<40); AST/SGOT 229 U/L (<32); Albumin 2.7 gm/dL (3.2-5.2); Albumin/Globulin Ratio 1.2 (1.0-2.3); Alkaline Phosphatase 132 U/L (39-117); Bilirubin,Direct < 0.2 mg/dL (0-0.3); Bilirubin,Total 0.4 mg/dL (0.1-1.0); Blood Urea Nitrogen 21 mg/dL (8-23); Carbon Dioxide 20 mmol/L (22-30); Chloride 107 mmol/L (96-108); Globulin 2.2 gm/dL (2.2-3.7); Glomerular Filtration Rate 88; Glucose 298 mg/dL (70-105); Lactate Dehydrogenase 261 U/L (135-225); Phosphorous 1.6 mg/dL (2.5-4.5); Triglycerides 83 mg/dL (<150); Uric Acid 6.7 mg/dL (2.5-8.0)
[2023-03-22 07:35] LABS: Basophils # (Auto) 0.01 K/mcL (0.00-0.30); Basophils % (Auto) 0.1 % (0.0-2.0); Eosinophils # (Auto) 0.13 K/mcL (0.00-0.70); Eosinophils % (Auto) 1.7 % (0.0-7.0); Hematocrit 32.4 % (34.1-44.9); Hemoglobin 10.4 g/dL (11.2-15.7); Lymphocytes # (Auto) 2.02 K/mcL (1.50-4.80); Lymphocytes % (Auto) 26.2 % (15.5-49.0); Mean Cell Volume 88.3 fL (80.0-100.0); Mean Corpuscular HGB Conc 32.1 g/dL (31.0-36.0); Mean Platelet Volume 10.4 fL (8.8-12.5); Monocytes # (Auto) 0.39 K/mcL (0.10-0.90); Monocytes % (Auto) 5.1 % (1.0-12.0); Neutrophils % (Auto) 66.5 % (38.0-78.0); Platelet Count 160 K/mcL (140-440); RBC 3.67 M/mcL (3.59-5.38); Red Cell Distribution Width 14.9 % (11.5-14.5); WBC 7.7 K/mcL (4.5-11.0)
[2023-03-22] MEDS: PROPRANOLOL 10 MG TABLET PO SCH ×3 (09:21→21:20)
[2023-03-22] MEDS: ASPIRIN 81 MG TAB.CHEW PO SCH (09:21)
[2023-03-22] MEDS: VITAMIN D3 25 MCG TABLET PO SCH (09:22)
[2023-03-22] MEDS: ATORVASTATIN 40 MG TABLET PO SCH (09:22)
[2023-03-22] MEDS: INSULIN GLARGINE, HUMAN 1 UNIT/0.01 ML SQ SCH ×2 (09:22→21:22)
--- NOTE | 2023-03-22 14:18 | Internal Med Progress Note ---
SUBJECTIVE Subjective Patient information: Note initiated : 03/22/23 at 2:02 pm Service Date, if different from initiated Date: [] Patient: Tennille Castillo 77 y/o F admitted on 03/20/23. Chief Complaint: [] Additional PMFSH (Level 3 Only): Ms. Castillo is a 77 year old female with history of diabetes mellitus 2, frequent DKA/HHS, chronic tremors, insomnia presented with 4 to 5 days history of nausea and vomiting and generalized weakness. Patient reported she was feeling sick, had vomiting once a day without any hematemesis, have some lower abdominal pain and was unable to take her insulin secondary to nausea. Patient reports mild constipation. She also is mildly confused as she cannot recall her insulin regimen however able to answer most questions appropriately. Patient reports she is feeling cold and fatigued and very weak. She reports no fever. No chest pain, no palpitations. Denies any cough, sputum production. Reports no ur inary symptoms of dysuria, frequency. No recent travels or sick contacts. On presentation patient with tachypnea respiratory rate 26, tachycardia 99 bpm, blood pressure stable, afebrile. Lab work with leukocytosis of 14,000, chronic anemia with hemoglobin 10.8. Severe metabolic acidosis on VBG with pH 7.04, PCO2 16, HCO3 4.9, lactic acid 2.2. Hyponatremia of 119, hyperkalemia 7.3, hypochloremia 94, creatinine 1.6 up from 0.5 consistent with acute kidney injury, CO2 5, anion gap 36, glucose 868, beta-hydroxybutyrate elevated at 13. Negative troponin. EKG showed sinus rhythm at 88 bpm, mildly hyperacute T wave changes in anterior leads and nonspecific ST-T wave changes. Patient was s tarted on DKA protocol and admitted to ICU. 03/21. Patient remains on IV insulin drip, glucose was down to 60s and was given D50 with appropriate improvement in blood glucose. Feels better but remains fatigued and tired. No nausea or vomiting. Some back pain. Discussed results of abdominal CT scan, no acute finding. Leukocytosis remains. Hyponatremia resolved. Anion gap closed, patient is still acidotic. Beta-hydroxybutyrate down to 0.42 from 13 03/22. Patient is feeling improved she is eating and drinking. Blood glucose this morning was between 200 and 300. Her insulin dose has been adjusted. Leukocytosis has resolved. Hemoglobin low but stable. Electrolytes within normal range. Hyponatremia resolved. Acidosis nearly resolved. LFTs elevated slightly more than baseline. Patient unsure about going home versus SNF. Review of system 14 point review of system completed. Pertinent positive and negative as mentioned above Physical examination CONSTITUTIONAL: Alert and awake, sitting up in bed, more perky today, no distre ss HEAD: Normocephalic. Atraumatic. EYES: EOMI PEERL ENT: No drooling stridor. speech clear fluent. Dry oral mucosa NECK: Supple. Full range of motion. Trachea midline CARDIOVASCULAR: S1-S2. Regular rate and rhythm, systolic murmur. +2 radial pulses bilaterally. PULMONARY: Chest is clear bilaterally ABDOMINAL: Abdomen is soft and nontender EXTREMITIES: No gross deformities. Moves all 4 extremities with good strength and tone. SKIN: Warm and dry. No rash. No petechiae. NEUROLOGY: Sensation is intact. No gross focal deficits. Assessment and plan Diabetic ketoacidosis. Severe. Multiple admissions. Patient with poor self- care and noncompliance with insulin therapy. Patient stopped taking her Lantus and sliding scale. DKA DKA resolved. Patient is off insulin GTT. Increase Lantus to 23 units twice daily, 6 units insulin scheduled with meals. High-dose sliding scale. Severe metabolic acidosis with anion gap, secondary to above. Hyponatremia, corrected sodium 131. Secondary to nausea and vomiting. Resolved Hypochloremia, resolved Hyperkalemia 7.3 with EKG changes. EKG with hyperacute T waves in anterior leads. Status post calcium gluconate, insulin. Now resolved Abdominal pain. CT scan abdomen and pelvis without any acute finding. Leukocytosis. Reactive secondary to DKA. No evidence of infectious etiology. Now resolved #DM2 Poorly controlled insulin-dependent w/neuropathy: -HbA1c of 10.8 on 03/20/2023 #Metabolic encephalopathy secondary to DKA, resolving Acute kidney injury, secondary to volume depletion, resolved with IV fluids Generalized weakness/deconditioning. PT OT #CAD: No chest pain. Troponin negative #Anemia, chronic: H/H stable #Hypothyroidism: cont levothyroxine #Chronic pancreatitis :Continue her home pancreatic enzyme supplements #Hypertriglyceridemia:Statin, fenofibrate #chronically elevated LFT's, improved from before #Essential tremor: on propranolol #chr back pain: continue pain medication #insomnia: Diphenhydramine, melatonin, trazadone #Long-term prognosis quite guarded with multiple admissions and poor compliance -6 admits 2021, 5 admits this year so far #CODE STATUS: DNR Disposition. After contemplating for a while and detailed multiple discussions. Patient is leaning towards going to SNF. Total time > 50 minutes Constitutional Vitals: Vital Signs Temp Pulse Resp BP Pulse Ox O2 Del Method 97.1 F 75 19 125/82 97 Room Air 03/22/23 12:01 03/22/23 13:00 03/22/23 13:00 03/22/23 13:00 03/22/23 13:00 03/22/23 13:00 Period Temp Pulse Resp BP Sys/Rosario Pulse Ox O2 Del Method O2 Flow Rate Last 24 Hr 97.1 F-98.1 F 66-78 12-19 99-157/46-84 92-100 Room Air-Room Air Intake and Output 03/22/23 03/22/23 03/22/23 03:59 11:59 19:59 Intake Total 360 1384 0 Output Total 585 436 171 Balance -225 948 -171 Intake & Output: Intake & Output 03/22/23 03/22/23 03/22/23 03:59 11:59 19:59 Intake Total 360 1384 0 Output Total 585 436 171 Balance -225 948 -171 Intake: IV 944 0 HumuLIN R 50 UNIT In Sodium 0 Chloride 0.9% 100 ml @ 0.02 UNIT/KG/HR 2.662 mls/hr IV DUR PEG Rx#:[id number] Lactated Ringers 1,000 ml @ 75 944 mls/hr IV .[id number] [facility] Rx#: [id number] Oral 360 440 Output: Urine Catheter Amount 585 436 171 Other: Meal Breakfast Lunch Percent of Meal Consumed 100% 100% Feeding Ability Assist with Tray Set Up Assist with Tray Set Up Urine Appearance Clear Clear Clear Uretheral (Alcazar) Clear Clear Urine Color Bright Yellow Yellow Yellow Uretheral (Alcazar) Bright Yellow Bright Yellow OBJ DATA Labs 03/22/23 05:34 03/22/23 05:34 Labs: Abnormal Lab Results 03/22/23 03/22/23 03/21/23 05:34 05:34 21:24 WBC Hgb 10.4 L Hct 32.4 L RDW 14.9 H Immature Gran % (Auto) Neut % (Auto) Lymph % (Auto) Lymph # (Auto) Immature Gran # Absolute Neutrophils VBG pH POC VBG pH VBG pCO2 POC VBG pCO2 at Temp VBG pO2 VBG HCO3 POC VBG HCO3 VBG Total CO2 POC VBG Total CO2 VBG O2 Saturation VBG Base Excess POC VBG Base Excess VBG Lactic Acid Carboxyhemoglobin Total Hemoglobin POC Sodium Sodium POC Potassium Potassium POC Chloride Chloride Carbon Dioxide 20 L 19 L POC Total CO2 Anion Gap POC Anion Gap POC BUN BUN Creatinine POC Creatinine Glucose 298 H POC Glucose Hemoglobin A1c Calcium 8.0 L POC WB Ioniz Calcium Phosphorus 1.6 L GGT 63 H AST 229 H ALT 97 H Alkaline Phosphatase 132 H Lactate Dehydrogenase 261 H Total Protein 4.9 L Albumin 2.7 L Beta-Hydroxybutyrate 03/21/23 03/21/23 03/21/23 13:35 07:10 07:10 WBC Hgb Hct RDW Immature Gran % (Auto) Neut % (Auto) Lymph % (Auto) Lymph # (Auto) Immature Gran # Absolute Neutrophils VBG pH POC VBG pH VBG pCO2 31.7 L POC VBG pCO2 at Temp VBG pO2 140.4 H VBG HCO3 19.0 L POC VBG HCO3 VBG Total CO2 19.9 L POC VBG Total CO2 VBG O2 Saturation 92.2 H VBG Base Excess -5 L POC VBG Base Excess VBG Lactic Acid Carboxyhemoglobin 5.4 H Total Hemoglobin POC Sodium Sodium POC Potassium Potassium POC Chloride Chloride Carbon Dioxide 21 L POC Total CO2 Anion Gap POC Anion Gap POC BUN BUN Creatinine POC Creatinine Glucose POC Glucose Hemoglobin A1c Calcium POC WB Ioniz Calcium Phosphorus GGT AST ALT Alkaline Phosphatase Lactate Dehydrogenase Total Protein Albumin Beta-Hydroxybutyrate 0.42 H 03/21/23 03/21/23 03/21/23 07:10 05:28 01:20 WBC 15.0 H Hgb 11.0 L Hct 31.8 L RDW Immature Gran % (Auto) Neut % (Auto) 83.6 H Lymph % (Auto) 9.9 L Lymph # (Auto) 1.48 L Immature Gran # Absolute Neutrophils 12.50 H VBG pH POC VBG pH VBG pCO2 POC VBG pCO2 at Temp VBG pO2 VBG HCO3 POC VBG HCO3 VBG Total CO2 POC VBG Total CO2 VBG O2 Saturation VBG Base Excess POC VBG Base Excess VBG Lactic Acid Carboxyhemoglobin Total Hemoglobin POC Sodium Sodium POC Potassium Potassium POC Chloride Chloride 109 H Carbon Dioxide 19 L 17 L POC Total CO2 Anion Gap POC Anion Gap POC BUN BUN 46 H Creatinine POC Creatinine Glucose POC Glucose Hemoglobin A1c Calcium 8.2 L POC WB Ioniz Calcium Phosphorus GGT AST ALT Alkaline Phosphatase Lactate Dehydrogenase Total Protein Albumin Beta-Hydroxybutyrate 03/20/23 03/20/23 03/20/23 21:45 17:29 17:27 WBC Hgb Hct RDW Immature Gran % (Auto) Neut % (Auto) Lymph % (Auto) Lymph # (Auto) Immature Gran # Absolute Neutrophils VBG pH 7.06 L* POC VBG pH VBG pCO2 23.4 L POC VBG pCO2 at Temp VBG pO2 65.6 H VBG HCO3 6.5 L* POC VBG HCO3 VBG Total CO2 7.2 L* POC VBG Total CO2 VBG O2 Saturation 84.7 H VBG Base Excess -22 L POC VBG Base Excess VBG Lactic Acid Carboxyhemoglobin 4.2 H Total Hemoglobin 11.5 L POC Sodium Sodium 132 L 129 L POC Potassium Potassium POC Chloride Chloride Carbon Dioxide 12 L 6 L* POC Total CO2 Anion Gap 17.0 H 26.0 H POC Anion Gap POC BUN BUN 56 H Creatinine 1.3 H POC Creatinine Glucose 592 H* POC Glucose Hemoglobin A1c 10.8 H Calcium 7.8 L POC WB Ioniz Calcium Phosphorus GGT AST ALT Alkaline Phosphatase Lactate Dehydrogenase Total Protein Albumin Beta-Hydroxybutyrate 03/20/23 03/20/23 03/20/23 16:16 13:59 13:59 WBC 14.2 H Hgb 10.8 L Hct RDW Immature Gran % (Auto) 1.2 H Neut % (Auto) 79.5 H Lymph % (Auto) 14.6 L Lymph # (Auto) Immature Gran # 0.17 H Absolute Neutrophils 11.29 H VBG pH POC VBG pH VBG pCO2 POC VBG pCO2 at Temp VBG pO2 VBG HCO3 POC VBG HCO3 VBG Total CO2 POC VBG Total CO2 VBG O2 Saturation VBG Base Excess POC VBG Base Excess VBG Lactic Acid Carboxyhemoglobin Total Hemoglobin POC Sodium Sodium 127 L 120 L POC Potassium Potassium 6.8 H* POC Chloride Chloride 90 L 85 L Carbon Dioxide 5 L* 5 L* POC Total CO2 Anion Gap 32.0 H 30.0 H POC Anion Gap POC BUN BUN 58 H 58 H Creatinine 1.6 H 1.5 H POC Creatinine Glucose 678 H* 868 H* POC Glucose Hemoglobin A1c Calcium 8.4 L 7.8 L POC WB Ioniz Calcium Phosphorus GGT AST 37 H ALT 45 H Alkaline Phosphatase 187 H Lactate Dehydrogenase Total Protein Albumin Beta-Hydroxybutyrate 03/20/23 03/20/23 03/20/23 13:10 13:08 13:05 WBC Hgb Hct RDW Immature Gran % (Auto) Neut % (Auto) Lymph % (Auto) Lymph # (Auto) Immature Gran # Absolute Neutrophils VBG pH POC VBG pH 7.08 L* VBG pCO2 POC VBG pCO2 at Temp 16.3 L* VBG pO2 VBG HCO3 POC VBG HCO3 4.9 L* VBG Total CO2 POC VBG Total CO2 5.0 L VBG O2 Saturation VBG Base Excess POC VBG Base Excess -25.0 L VBG Lactic Acid 2.2 H Carboxyhemoglobin Total Hemoglobin POC Sodium 119 L Sodium 120 L POC Potassium 7.3 H* Potassium 7.5 H* POC Chloride 94 L Chloride 79 L Carbon Dioxide 4 L* POC Total CO2 8.0 L* Anion Gap 37.0 H POC Anion Gap 26.0 H POC BUN 55 H BUN Creatinine POC Creatinine 1.4 H Glucose POC Glucose > 700 H* Hemoglobin A1c Calcium POC WB Ioniz Calcium 1.03 L Phosphorus GGT AST ALT Alkaline Phosphatase Lactate Dehydrogenase Total Protein Albumin Beta-Hydroxybutyrate 03/20/23 03/20/23 13:05 13:05 WBC Hgb Hct RDW Immature Gran % (Auto) Neut % (Auto) Lymph % (Auto) Lymph # (Auto) Immature Gran # Absolute Neutrophils VBG pH POC VBG pH VBG pCO2 POC VBG pCO2 at Temp VBG pO2 VBG HCO3 POC VBG HCO3 VBG Total CO2 POC VBG Total CO2 VBG O2 Saturation VBG Base Excess POC VBG Base Excess VBG Lactic Acid Carboxyhemoglobin Total Hemoglobin POC Sodium Sodium 122 L POC Potassium Potassium 7.5 H* POC Chloride Chloride 81 L Carbon Dioxide 5 L* POC Total CO2 Anion Gap 36.0 H POC Anion Gap POC BUN BUN 56 H Creatinine 1.6 H POC Creatinine Glucose 868 H* POC Glucose Hemoglobin A1c Calcium POC WB Ioniz Calcium Phosphorus GGT AST 45 H ALT 52 H Alkaline Phosphatase 216 H Lactate Dehydrogenase Total Protein Albumin Beta-Hydroxybutyrate 13.79 H Meds: Medications Acetaminophen (Acetaminophen 325 Mg Tablet) 650 mg PO Q4-6HP PRN; Protocol PRN Reason: Per Pain Protocol/Fever > 101 Al Hydrox/Mg Hydrox/Simethicone (Mag Hydrox/Al Hydrox/Simeth 30 Ml Oral.Susp) 30 ml PO Q4-6HP PRN PRN Reason: Dyspepsia Albuterol Sulfate (Albuterol Sulfate 60 Puff Inhaler) 2 puff INH Q4-6HP PRN PRN Reason: cough, shortness of breath, wheezing Aspirin (Aspirin 81 Mg Tab.Chew) 81 mg PO DAILY [facility] Last Admin: 03/22/23 09:21 Dose: 81 mg Atorvastatin Calcium (Atorvastatin 40 Mg Tablet) 40 mg PO QDAY [facility] Last Admin: 03/22/23 09:22 Dose: 40 mg Dextrose (Dextrose 50% 50 Ml Vial) 0 ml IV UD PRN PRN Reason: Per Sliding Scale Diagnostic Test (Pha) (Accu-Chek 1 Each Strip) 1 each FS ACHS [facility] Last Admin: 03/22/23 12:05 Dose: 1 each Diphenhydramine HCl (Diphenhydramine 25 Mg Capsule) 50 mg PO QHS PEG Last Admin: 03/21/23 21:05 Dose: 50 mg Gabapentin (Gabapentin 400 Mg Capsule) 400 mg PO QIDP PRN PRN Reason: Pain Glucose (Dextrose 31 Gm Oral.Susp) 15 gm PO PRN PRN PRN Reason: Hypoglycemia Hydromorphone HCl (Hydromorphone 0.5 Mg/0.5 Ml Syringe) 0.5 mg IV Q6H PRN; Protocol PRN Reason: Per Pain Protocol Hyoscyamine (Hyoscyamine Sulfate 0.125 Mg Tablet) 0.125 mg SL Q6HP PRN PRN Reason: muscle spasm Lactated Ringer's (Lactated Ringers) 1,000 mls @ 75 mls/hr IV .[id number] [facility] Last Admin: 03/22/23 09:32 Dose: Not Given Insulin Human Regular 50 unit/ (Sodium Chloride) 100.5 mls @ 2.662 mls/hr IV DUR [facility]; Protocol Last Titration: 03/22/23 12:10 Dose: Infused Ibuprofen (Ibuprofen 200 Mg Tablet) 200 mg PO Q6HP PRN PRN Reason: Pain Insulin Glargine (Insulin Glargine, Human 1 Unit/0.01 Ml) 23 unit SQ BID [facility] Last Admin: 03/22/23 09:22 Dose: 23 unit Insulin Human Lispro (Insulin Lispro 1 Unit/0.01 Ml Unit) 0 unit SQ ACHS [facility]; Protocol Last Admin: 03/22/23 12:05 Dose: 18 unit Insulin Human Lispro (Insulin Lispro 1 Unit/0.01 Ml Unit) 6 unit SQ AC [facility] Last Admin: 03/22/23 12:05 Dose: 6 unit Levothyroxine Sodium (Levothyroxine 125 Mcg Tablet) 125 mcg PO QAMAC [facility] Last Admin: 03/22/23 07:32 Dose: 125 mcg Melatonin (Melatonin 3 Mg Tablet) 3 mg PO [facility] PRN PRN Reason: sleep Ondansetron HCl (Ondansetron 4 Mg/2 Ml Vial) 4 mg IV Q4-6HP PRN; Protocol PRN Reason: Nausea And Vomiting Oxycodone HCl (Oxycodone Ir 5 Mg Tablet) 5 mg PO BIDP PRN; Protocol PRN Reason: breakthrough pain Lipase-Protease- Amylase [Zenpep] 40, 000-126,000-168,000 Cap 1 dose PO TIDCC [facility] Last Admin: 03/22/23 11:48 Dose: Not Given Betamethasone Valerate 0.1 % Ointment 1 dose TOPICAL BIDP PRN PRN Reason: psoriosis Promethazine HCl (Promethazine 25 Mg/Ml Vial) 12.5 mg IV Q4-6HP PRN; Protocol PRN Reason: Nausea And Vomiting Propranolol HCl (Propranolol 10 Mg Tablet) 10 mg PO TID [facility] Last Admin: 03/22/23 09:21 Dose: 10 mg Senna (Sennosides 1 Tablet) 1 tab PO HSP PRN PRN Reason: Constipation Sodium Chloride (0.9 % Sodium Chloride 10 Ml Syringe) 10 ml IV Q8 [facility] Last Admin: 03/22/23 05:52 Dose: 10 ml Tramadol HCl (Tramadol 50 Mg Tablet) 50 mg PO Q8HP PRN PRN Reason: Pain Last Admin: 03/21/23 21:06 Dose: 50 mg Trazodone HCl (Trazodone Hcl 100 Mg Tablet) 100 mg PO [facility] Vitamin D (Vitamin D3 25 Mcg Tablet) 100 mcg PO DAILY [facility] Last Admin: 03/22/23 09:22 Dose: 100 mcg ABG Interpretation ABG results: 03/20/23 03/21/23 17:27 07:10 ABG Methemoglobin 0.4 0.6 VBG pH 7.06 L* 7.40 VBG pCO2 23.4 L 31.7 L VBG pO2 65.6 H 140.4 H VBG HCO3 6.5 L* 19.0 L VBG Total CO2 7.2 L* 19.9 L VBG O2 Saturation 84.7 H 92.2 H VBG Base Excess -22 L -5 L A/P Time Spent With Patient Time: Total time spent is greater than 50% in coordination of care (as documented) at patient's floor/unit and/or counseling patient: QUALITY Stroke Symptom Onset Unknown: No
[2023-03-22] MEDS: traMADol 50 MG TABLET PO PRN (15:05)
[2023-03-22] MEDS: ONDANSETRON 4 MG/2 ML VIAL IV PRN (19:35)
[2023-03-22] MEDS: diphenhydrAMINE 25 MG CAPSULE PO SCH (21:21)
[2023-03-22] MEDS: oxyCODONE IR 5 MG TABLET PO PRN (21:21)
[2023-03-23] MEDS: traMADol 50 MG TABLET PO PRN ×2 (02:21→19:07)
[2023-03-23] MEDS: 0.9 % SODIUM CHLORIDE 10 ML SYRINGE IV SCH ×3 (06:03→21:44)
[2023-03-23 06:58] LABS: Basophils # (Auto) 0.02 K/mcL (0.00-0.30); Basophils % (Auto) 0.3 % (0.0-2.0); Eosinophils # (Auto) 0.23 K/mcL (0.00-0.70); Hematocrit 33.3 % (34.1-44.9); Hemoglobin 10.8 g/dL (11.2-15.7); Lymphocytes # (Auto) 2.43 K/mcL (1.50-4.80); Lymphocytes % (Auto) 41.8 % (15.5-49.0); Mean Cell Volume 88.1 fL (80.0-100.0); Mean Corpuscular HGB Conc 32.4 g/dL (31.0-36.0); Mean Platelet Volume 10.1 fL (8.8-12.5); Monocytes # (Auto) 0.36 K/mcL (0.10-0.90); Monocytes % (Auto) 6.2 % (1.0-12.0); Neutrophils % (Auto) 47.5 % (38.0-78.0); Platelet Count 140 K/mcL (140-440); RBC 3.78 M/mcL (3.59-5.38); Red Cell Distribution Width 14.6 % (11.5-14.5); WBC 5.8 K/mcL (4.5-11.0)
[2023-03-23] MEDS: LEVOTHYROXINE 125 MCG TABLET PO SCH (07:43)
[2023-03-23] MEDS: INSULIN LISPRO 1 UNIT/0.01 ML UNIT SQ SCH ×6 (07:43→21:44)
[2023-03-23] MEDS: LIPASE PROTEASE AMYLASE PO SCH ×3 (07:46→16:39)
[2023-03-23 08:34] LABS: ALT/SGPT 125 U/L (<40); AST/SGOT 219 U/L (<32); Albumin 2.9 gm/dL (3.2-5.2); Albumin/Globulin Ratio 1.3 (1.0-2.3); Alkaline Phosphatase 143 U/L (39-117); Bilirubin,Total 0.3 mg/dL (0.1-1.0); Blood Urea Nitrogen 11 mg/dL (8-23); Carbon Dioxide 26 mmol/L (22-30); Chloride 106 mmol/L (96-108); Globulin 2.3 gm/dL (2.2-3.7); Glomerular Filtration Rate 93; Glucose 72 mg/dL (70-105)
[2023-03-23] MEDS ORDERED: INSULIN GLARGINE, HUMAN 1 UNIT/0.01 ML SQ ONE (08:49)
[2023-03-23] MEDS: POTASSIUM CHLORIDE 20 MEQ TABLET PO SCH ×3 (09:37→16:39)
[2023-03-23] MEDS: ASPIRIN 81 MG TAB.CHEW PO SCH (09:37)
[2023-03-23] MEDS: ATORVASTATIN 40 MG TABLET PO SCH (09:37)
[2023-03-23] MEDS: oxyCODONE IR 5 MG TABLET PO PRN (09:37)
[2023-03-23] MEDS: ONDANSETRON 4 MG/2 ML VIAL IV PRN ×3 (09:38→21:42)
[2023-03-23] MEDS: VITAMIN D3 25 MCG TABLET PO SCH (09:38)
[2023-03-23] MEDS: PROPRANOLOL 10 MG TABLET PO SCH ×3 (09:38→21:42)
[2023-03-23] MEDS: LACTATED RINGERS 1,000 ML IV SCH (09:43)
--- NOTE | 2023-03-23 10:10 | Internal Med Progress Note ---
SUBJECTIVE Subjective Patient information: Note initiated : 03/23/23 at 10:07 am Service Date, if different from initiated Date: [] Patient: Tennille Castillo 77 y/o F admitted on 03/20/23. Chief Complaint: [] Additional PMFSH (Level 3 Only): Ms. Castillo is a 77 year old female with history of diabetes mellitus 2, frequent DKA/HHS, chronic tremors, insomnia presented with 4 to 5 days history of nausea and vomiting and generalized weakness. Patient reported she was feeling sick, had vomiting once a day without any hematemesis, have some lower abdominal pain and was unable to take her insulin secondary to nausea. Patient reports mild constipation. She also is mildly confused as she cannot recall her insulin regimen however able to answer most questions appropriately. Patient reports she is feeling cold and fatigued and very weak. She reports no fever. No chest pain, no palpitations. Denies any cough, sputum production. Reports no u rinary symptoms of dysuria, frequency. No recent travels or sick contacts. On presentation patient with tachypnea respiratory rate 26, tachycardia 99 bpm, blood pressure stable, afebrile. Lab work with leukocytosis of 14,000, chronic anemia with hemoglobin 10.8. Severe metabolic acidosis on VBG with pH 7.04, PCO2 16, HCO3 4.9, lactic acid 2.2. Hyponatremia of 119, hyperkalemia 7.3, hypochloremia 94, creatinine 1.6 up from 0.5 consistent with acute kidney injury, CO2 5, anion gap 36, glucose 868, beta-hydroxybutyrate elevated at 13. Negative troponin. EKG showed sinus rhythm at 88 bpm, mildly hyperacute T wave changes in anterior leads and nonspecific ST-T wave changes. Patient was started on DKA protocol and admitted to ICU. 03/21. Patient remains on IV insulin drip, glucose was down to 60s and was given D50 with appropriate improvement in blood glucose. Feels better but remains fatigued and tired. No nausea or vomiting. Some back pain. Discussed results of abdominal CT scan, no acute finding. Leukocytosis remains. Hyponatremia resolved. Anion gap closed, patient is still acidotic. Beta-hydroxybutyrate down to 0.42 from 13 03/22. Patient is feeling improved she is eating and drinking. Blood glucose this morning was between 200 and 300. Her insulin dose has been adjusted. Leukocytosis has resolved. Hemoglobin low but stable. Electrolytes within normal range. Hyponatremia resolved. Acidosis nearly resolved. LFTs elevated slightly more than baseline. Patient unsure about going home versus SNF. 03/23. Reports eating more however still has some nausea but no vomiting, abdominal discomfort is minimal. No fever or chills, leukocytosis is absent. Potassium is low at 2.7 and will be aggressively replaced. Patient was with relative hypoglycemia this morning. Review of system 14 point review of system completed. Pertinent positive and negative as mentioned above Physical examination CONSTITUTIONAL: Alert and awake, smiling appropriately appears improved HEAD: Normocephalic. Atraumatic. EYES: EOMI PEERL ENT: No drooling stridor. speech clear fluent. Dry oral mucosa NECK: Supple. Full range of motion. Trachea midline CARDIOVASCULAR: S1-S2. Regular rate and rhythm, systolic murmur. +2 radial pulses bilaterally. PULMONARY: Chest is clear bilaterally ABDOMINAL: Abdomen is soft and nontender EXTREMITIES: No swelling, no bruises SKIN: Warm and dry. No rash. No petechiae. NEUROLOGY: Sensation is intact. No gross focal deficits. Assessment and plan Diabetic ketoacidosis. Severe. Multiple admissions. Patient with poor self- care and noncompliance with insulin therapy. Patient stopped taking her Lantus and sliding scale. DKA resolved. IV insulin drip discontinued. At home takes 23 units basal insulin and sliding scale scale. Due to blood glucose reading of 79 this morning. Will only give 18 units of Lantus. If her oral intake improves then will restart Lantus 23 units at nighttime, reduce schedule insulin dose to 3 units with meals, on sliding scale. DC IV fluids Hypokalemia of 2.7. Will give 40 meq x 3 Severe metabolic acidosis with anion gap, secondary to above. Resolved Hyponatremia, corrected sodium 131. Secondary to nausea and vomiting. Resolved Hypochloremia, resolved Hyperkalemia 7.3 with EKG changes. EKG with hyperacute T waves in anterior leads. Status post calcium gluconate, insulin. Now resolved Abdominal pain. CT scan abdomen and pelvis without any acute finding. Leukocytosis. Reactive secondary to DKA. No evidence of infectious etiology. Now resolved #DM2 Poorly controlled insulin-dependent w/neuropathy: -HbA1c of 10.8 on 03/20/2023 #Metabolic encephalopathy secondary to DKA, resolving Acute kidney injury, secondary to volume depletion, resolved with IV fluids Generalized weakness/deconditioning. PT OT #CAD: No chest pain. Troponin negative #Anemia, chronic: H/H stable #Hypothyroidism: cont levothyroxine #Chronic pancreatitis :Continue her home pancreatic enzyme supplements #Hypertriglyceridemia:Statin, fenofibrate #chronically elevated LFT's, improved from before #Essential tremor: on propranolol #chr back pain: continue pain medication #insomnia: Diphenhydramine, melatonin, trazadone #Long-term prognosis quite guarded with multiple admissions and poor compliance -6 admits 2021, 5 admits this year so far #CODE STATUS: DNR Disposition. Awaiting SNF placement Total time > 50 minutes Constitutional Vitals: Vital Signs Temp Pulse Resp BP Pulse Ox O2 Del Method 98.4 F 67 16 146/69 96 Room Air 03/23/23 07:31 03/23/23 07:31 03/23/23 07:31 03/23/23 07:31 03/23/23 07:31 03/23/23 07:31 Period Temp Pulse Resp BP Sys/Rosario Pulse Ox O2 Del Method O2 Flow Rate Last 24 Hr 97.1 F-98.6 F 67-76 14-19 99-157/58-82 96-98 Room Air-Room Air Intake and Output 03/22/23 03/23/23 03/23/23 19:59 03:59 11:59 Intake Total 6984 854 0062 Output Total 621 1999 1650 Balance 544 -1550 -413 Weight 71.849 kg 70.125 kg Intake & Output: Intake & Output 03/22/23 03/23/23 03/23/23 19:59 03:59 11:59 Intake Total 6322 176 8870 Output Total 621 1999 1650 Balance 544 -1550 -413 Weight 71.849 kg 70.125 kg Intake: IV 965 1000 HumuLIN R 50 UNIT In Sodium 0 Chloride 0.9% 100 ml @ 0.02 UNIT/KG/HR 2.662 mls/hr IV DUR PEG Rx#:[id number] Lactated Ringers 1,000 ml @ 75 965 1000 mls/hr IV .[id number] PEG Rx#: [id number] Oral 200 450 237 Output: Urine Catheter Amount 621 1999 1650 Void Amount 0 Other: Meal Dinner Percent of Meal Consumed 75% Feeding Ability Independent Urine Appearance Clear Clear Clear Uretheral (Alcazar) Clear Urine Color Yellow Yellow Pale Uretheral (Alcazar) Yellow Urine Odor Normal Normal Uretheral (Alcazar) Normal Stool Size Small Moderate Stool Color Memo Colored Brown Yellow Stool Consistency Formed Formed # Bowel Movements 1 OBJ DATA Labs 03/23/23 05:54 03/23/23 05:54 Labs: Abnormal Lab Results 03/23/23 03/23/23 03/22/23 05:54 05:54 05:34 WBC Hgb 10.8 L Hct 33.3 L RDW 14.6 H Immature Gran % (Auto) Neut % (Auto) Lymph % (Auto) Lymph # (Auto) Immature Gran # Absolute Neutrophils VBG pH POC VBG pH VBG pCO2 POC VBG pCO2 at Temp VBG pO2 VBG HCO3 POC VBG HCO3 VBG Total CO2 POC VBG Total CO2 VBG O2 Saturation VBG Base Excess POC VBG Base Excess VBG Lactic Acid Carboxyhemoglobin Total Hemoglobin POC Sodium Sodium POC Potassium Potassium 2.7 L* POC Chloride Chloride Carbon Dioxide 20 L POC Total CO2 Anion Gap POC Anion Gap POC BUN BUN Creatinine 0.5 L POC Creatinine Glucose 298 H POC Glucose Hemoglobin A1c Calcium 8.0 L 8.0 L POC WB Ioniz Calcium Phosphorus 1.6 L GGT 63 H AST 219 H 229 H ALT 125 H 97 H Alkaline Phosphatase 143 H 132 H Lactate Dehydrogenase 261 H Total Protein 5.2 L 4.9 L Albumin 2.9 L 2.7 L Beta-Hydroxybutyrate 03/22/23 03/21/23 03/21/23 05:34 21:24 13:35 WBC Hgb 10.4 L Hct 32.4 L RDW 14.9 H Immature Gran % (Auto) Neut % (Auto) Lymph % (Auto) Lymph # (Auto) Immature Gran # Absolute Neutrophils VBG pH POC VBG pH VBG pCO2 POC VBG pCO2 at Temp VBG pO2 VBG HCO3 POC VBG HCO3 VBG Total CO2 POC VBG Total CO2 VBG O2 Saturation VBG Base Excess POC VBG Base Excess VBG Lactic Acid Carboxyhemoglobin Total Hemoglobin POC Sodium Sodium POC Potassium Potassium POC Chloride Chloride Carbon Dioxide 19 L 21 L POC Total CO2 Anion Gap POC Anion Gap POC BUN BUN Creatinine POC Creatinine Glucose POC Glucose Hemoglobin A1c Calcium POC WB Ioniz Calcium Phosphorus GGT AST ALT Alkaline Phosphatase Lactate Dehydrogenase Total Protein Albumin Beta-Hydroxybutyrate 03/21/23 03/21/23 03/21/23 07:10 07:10 07:10 WBC 15.0 H Hgb 11.0 L Hct 31.8 L RDW Immature Gran % (Auto) Neut % (Auto) 83.6 H Lymph % (Auto) 9.9 L Lymph # (Auto) 1.48 L Immature Gran # Absolute Neutrophils 12.50 H VBG pH POC VBG pH VBG pCO2 31.7 L POC VBG pCO2 at Temp VBG pO2 140.4 H VBG HCO3 19.0 L POC VBG HCO3 VBG Total CO2 19.9 L POC VBG Total CO2 VBG O2 Saturation 92.2 H VBG Base Excess -5 L POC VBG Base Excess VBG Lactic Acid Carboxyhemoglobin 5.4 H Total Hemoglobin POC Sodium Sodium POC Potassium Potassium POC Chloride Chloride Carbon Dioxide POC Total CO2 Anion Gap POC Anion Gap POC BUN BUN Creatinine POC Creatinine Glucose POC Glucose Hemoglobin A1c Calcium POC WB Ioniz Calcium Phosphorus GGT AST ALT Alkaline Phosphatase Lactate Dehydrogenase Total Protein Albumin Beta-Hydroxybutyrate 0.42 H 03/21/23 03/21/23 03/20/23 05:28 01:20 21:45 WBC Hgb Hct RDW Immature Gran % (Auto) Neut % (Auto) Lymph % (Auto) Lymph # (Auto) Immature Gran # Absolute Neutrophils VBG pH POC VBG pH VBG pCO2 POC VBG pCO2 at Temp VBG pO2 VBG HCO3 POC VBG HCO3 VBG Total CO2 POC VBG Total CO2 VBG O2 Saturation VBG Base Excess POC VBG Base Excess VBG Lactic Acid Carboxyhemoglobin Total Hemoglobin POC Sodium Sodium 132 L POC Potassium Potassium POC Chloride Chloride 109 H Carbon Dioxide 19 L 17 L 12 L POC Total CO2 Anion Gap 17.0 H POC Anion Gap POC BUN BUN 46 H Creatinine POC Creatinine Glucose POC Glucose Hemoglobin A1c Calcium 8.2 L POC WB Ioniz Calcium Phosphorus GGT AST ALT Alkaline Phosphatase Lactate Dehydrogenase Total Protein Albumin Beta-Hydroxybutyrate 03/20/23 03/20/23 03/20/23 17:29 17:27 16:16 WBC Hgb Hct RDW Immature Gran % (Auto) Neut % (Auto) Lymph % (Auto) Lymph # (Auto) Immature Gran # Absolute Neutrophils VBG pH 7.06 L* POC VBG pH VBG pCO2 23.4 L POC VBG pCO2 at Temp VBG pO2 65.6 H VBG HCO3 6.5 L* POC VBG HCO3 VBG Total CO2 7.2 L* POC VBG Total CO2 VBG O2 Saturation 84.7 H VBG Base Excess -22 L POC VBG Base Excess VBG Lactic Acid Carboxyhemoglobin 4.2 H Total Hemoglobin 11.5 L POC Sodium Sodium 129 L 127 L POC Potassium Potassium POC Chloride Chloride 90 L Carbon Dioxide 6 L* 5 L* POC Total CO2 Anion Gap 26.0 H 32.0 H POC Anion Gap POC BUN BUN 56 H 58 H Creatinine 1.3 H 1.6 H POC Creatinine Glucose 592 H* 678 H* POC Glucose Hemoglobin A1c 10.8 H Calcium 7.8 L 8.4 L POC WB Ioniz Calcium Phosphorus GGT AST ALT Alkaline Phosphatase Lactate Dehydrogenase Total Protein Albumin Beta-Hydroxybutyrate 03/20/23 03/20/23 03/20/23 13:59 13:59 13:10 WBC 14.2 H Hgb 10.8 L Hct RDW Immature Gran % (Auto) 1.2 H Neut % (Auto) 79.5 H Lymph % (Auto) 14.6 L Lymph # (Auto) Immature Gran # 0.17 H Absolute Neutrophils 11.29 H VBG pH POC VBG pH 7.08 L* VBG pCO2 POC VBG pCO2 at Temp 16.3 L* VBG pO2 VBG HCO3 POC VBG HCO3 4.9 L* VBG Total CO2 POC VBG Total CO2 5.0 L VBG O2 Saturation VBG Base Excess POC VBG Base Excess -25.0 L VBG Lactic Acid 2.2 H Carboxyhemoglobin Total Hemoglobin POC Sodium Sodium 120 L POC Potassium Potassium 6.8 H* POC Chloride Chloride 85 L Carbon Dioxide 5 L* POC Total CO2 Anion Gap 30.0 H POC Anion Gap POC BUN BUN 58 H Creatinine 1.5 H POC Creatinine Glucose 868 H* POC Glucose Hemoglobin A1c Calcium 7.8 L POC WB Ioniz Calcium Phosphorus GGT AST 37 H ALT 45 H Alkaline Phosphatase 187 H Lactate Dehydrogenase Total Protein Albumin Beta-Hydroxybutyrate 03/20/23 03/20/23 03/20/23 13:08 13:05 13:05 WBC Hgb Hct RDW Immature Gran % (Auto) Neut % (Auto) Lymph % (Auto) Lymph # (Auto) Immature Gran # Absolute Neutrophils VBG pH POC VBG pH VBG pCO2 POC VBG pCO2 at Temp VBG pO2 VBG HCO3 POC VBG HCO3 VBG Total CO2 POC VBG Total CO2 VBG O2 Saturation VBG Base Excess POC VBG Base Excess VBG Lactic Acid Carboxyhemoglobin Total Hemoglobin POC Sodium 119 L Sodium 120 L 122 L POC Potassium 7.3 H* Potassium 7.5 H* 7.5 H* POC Chloride 94 L Chloride 79 L 81 L Carbon Dioxide 4 L* 5 L* POC Total CO2 8.0 L* Anion Gap 37.0 H 36.0 H POC Anion Gap 26.0 H POC BUN 55 H BUN 56 H Creatinine 1.6 H POC Creatinine 1.4 H Glucose 868 H* POC Glucose > 700 H* Hemoglobin A1c Calcium POC WB Ioniz Calcium 1.03 L Phosphorus GGT AST ALT Alkaline Phosphatase Lactate Dehydrogenase Total Protein Albumin Beta-Hydroxybutyrate 03/20/23 13:05 WBC Hgb Hct RDW Immature Gran % (Auto) Neut % (Auto) Lymph % (Auto) Lymph # (Auto) Immature Gran # Absolute Neutrophils VBG pH POC VBG pH VBG pCO2 POC VBG pCO2 at Temp VBG pO2 VBG HCO3 POC VBG HCO3 VBG Total CO2 POC VBG Total CO2 VBG O2 Saturation VBG Base Excess POC VBG Base Excess VBG Lactic Acid Carboxyhemoglobin Total Hemoglobin POC Sodium Sodium POC Potassium Potassium POC Chloride Chloride Carbon Dioxide POC Total CO2 Anion Gap POC Anion Gap POC BUN BUN Creatinine POC Creatinine Glucose POC Glucose Hemoglobin A1c Calcium POC WB Ioniz Calcium Phosphorus GGT AST 45 H ALT 52 H Alkaline Phosphatase 216 H Lactate Dehydrogenase Total Protein Albumin Beta-Hydroxybutyrate 13.79 H Meds: Medications Acetaminophen (Acetaminophen 325 Mg Tablet) 650 mg PO Q4-6HP PRN; Protocol PRN Reason: Per Pain Protocol/Fever > 101 Al Hydrox/Mg Hydrox/Simethicone (Mag Hydrox/Al Hydrox/Simeth 30 Ml Oral.Susp) 30 ml PO Q4-6HP PRN PRN Reason: Dyspepsia Albuterol Sulfate (Albuterol Sulfate 60 Puff Inhaler) 2 puff INH Q4-6HP PRN PRN Reason: cough, shortness of breath, wheezing Aspirin (Aspirin 81 Mg Tab.Chew) 81 mg PO DAILY [facility] Last Admin: 03/23/23 09:37 Dose: 81 mg Atorvastatin Calcium (Atorvastatin 40 Mg Tablet) 40 mg PO QDAY [facility] Last Admin: 07/08/23 09:37 Dose: 40 mg Dextrose (Dextrose 50% 50 Ml Vial) 0 ml IV UD PRN PRN Reason: Per Sliding Scale Diagnostic Test (Pha) (Accu-Chek 1 Each Strip) 1 each FS ACHS [facility] Last Admin: 03/23/23 07:44 Dose: 1 each Diphenhydramine HCl (Diphenhydramine 25 Mg Capsule) 50 mg PO QHS [facility] Last Admin: 03/22/23 21:21 Dose: 50 mg Gabapentin (Gabapentin 400 Mg Capsule) 400 mg PO QIDP PRN PRN Reason: Pain Glucose (Dextrose 31 Gm Oral.Susp) 15 gm PO PRN PRN PRN Reason: Hypoglycemia Hydromorphone HCl (Hydromorphone 0.5 Mg/0.5 Ml Syringe) 0.5 mg IV Q6H PRN; Protocol PRN Reason: Per Pain Protocol Hyoscyamine (Hyoscyamine Sulfate 0.125 Mg Tablet) 0.125 mg SL Q6HP PRN PRN Reason: muscle spasm Lactated Ringer's (Lactated Ringers) 1,000 mls @ 75 mls/hr IV .[id number] [facility] Last Admin: 03/23/23 09:43 Dose: 75 mls/hr Insulin Human Regular 50 unit/ (Sodium Chloride) 100.5 mls @ 2.662 mls/hr IV DUR [facility]; Protocol Last Titration: 03/22/23 12:10 Dose: Infused Ibuprofen (Ibuprofen 200 Mg Tablet) 200 mg PO Q6HP PRN PRN Reason: Pain Insulin Glargine (Insulin Glargine, Human 1 Unit/0.01 Ml) 23 unit SQ BID [facility] Insulin Human Lispro (Insulin Lispro 1 Unit/0.01 Ml Unit) 0 unit SQ [facility]; Protocol Last Admin: 03/23/23 07:43 Dose: Not Given Insulin Human Lispro (Insulin Lispro 1 Unit/0.01 Ml Unit) 6 unit SQ AC [facility] Last Admin: 03/23/23 07:45 Dose: Not Given Levothyroxine Sodium (Levothyroxine 125 Mcg Tablet) 125 mcg PO QAMAC [facility] Last Admin: 03/23/23 07:43 Dose: 125 mcg Melatonin (Melatonin 3 Mg Tablet) 3 mg PO HSP PRN PRN Reason: sleep Ondansetron HCl (Ondansetron 4 Mg/2 Ml Vial) 4 mg IV Q4-6HP PRN; Protocol PRN Reason: Nausea And Vomiting Last Admin: 03/23/23 09:38 Dose: 4 mg Oxycodone HCl (Oxycodone Ir 5 Mg Tablet) 5 mg PO BIDP PRN; Protocol PRN Reason: breakthrough pain Last Admin: 03/23/23 09:37 Dose: 5 mg Lipase-Protease- Amylase [Zenpep] 40, 000-126,000-168,000 Cap 1 dose PO TIDCC [facility] Last Admin: 03/23/23 07:46 Dose: Not Given Betamethasone Valerate 0.1 % Ointment 1 dose TOPICAL BIDP PRN PRN Reason: psoriosis Potassium Chloride ([facility]assium Chloride 20 Meq Tablet) [facility] Stop: 03/23/23 17:31 Last Admin: 03/23/23 09:37 Dose: 40 meq Promethazine HCl (Promethazine 25 Mg/Ml Vial) 12.5 mg IV Q4-6HP PRN; Protocol PRN Reason: Nausea And Vomiting Propranolol HCl (Propranolol 10 Mg Tablet) 10 mg PO TID [facility] Last Admin: 03/23/23 09:38 Dose: 10 mg Senna (Sennosides 1 Tablet) 1 tab PO HSP PRN PRN Reason: Constipation Last Admin: 03/23/23 02:21 Dose: 1 tab Sodium Chloride (0.9 % Sodium Chloride 10 Ml Syringe) 10 ml IV Q8 [facility] Last Admin: 03/23/23 06:03 Dose: 10 ml Tramadol HCl (Tramadol 50 Mg Tablet) 50 mg PO Q8HP PRN PRN Reason: Pain Last Admin: 03/23/23 02:21 Dose: 50 mg Trazodone HCl (Trazodone Hcl 100 Mg Tablet) 100 mg PO [facility] Vitamin D (Vitamin D3 25 Mcg Tablet) 100 mcg PO DAILY [facility] Last Admin: 03/23/23 09:38 Dose: 100 mcg ABG Interpretation ABG results: 03/20/23 03/21/23 17:27 07:10 ABG Methemoglobin 0.4 0.6 VBG pH 7.06 L* 7.40 VBG pCO2 23.4 L 31.7 L VBG pO2 65.6 H 140.4 H VBG HCO3 6.5 L* 19.0 L VBG Total CO2 7.2 L* 19.9 L VBG O2 Saturation 84.7 H 92.2 H VBG Base Excess -22 L -5 L A/P Time Spent With Patient Time: Total time spent is greater than 50% in coordination of care (as documented) at patient's floor/unit and/or counseling patient: QUALITY Stroke Symptom Onset Unknown: No
[2023-03-23] MEDS: INSULIN GLARGINE, HUMAN 1 UNIT/0.01 ML SQ SCH (10:17)
[2023-03-23] MEDS: traZODone HCL 100 MG TABLET PO SCH (19:07)
[2023-03-23] MEDS ORDERED: INSULIN GLARGINE, HUMAN 1 UNIT/0.01 ML SQ SCH (21:00)
[2023-03-23] MEDS: diphenhydrAMINE 25 MG CAPSULE PO SCH (21:42)
[2023-03-24] MEDS: traMADol 50 MG TABLET PO PRN ×2 (05:51→15:21)
[2023-03-24] MEDS: 0.9 % SODIUM CHLORIDE 10 ML SYRINGE IV SCH ×3 (05:51→22:00)
[2023-03-24 06:17] LABS: Basophils # (Auto) 0.04 K/mcL (0.00-0.30); Basophils % (Auto) 0.7 % (0.0-2.0); Eosinophils # (Auto) 0.29 K/mcL (0.00-0.70); Eosinophils % (Auto) 5.2 % (0.0-7.0); Hematocrit 33.8 % (34.1-44.9); Hemoglobin 10.8 g/dL (11.2-15.7); Lymphocytes # (Auto) 2.48 K/mcL (1.50-4.80); Lymphocytes % (Auto) 44.4 % (15.5-49.0); Mean Cell Volume 89.9 fL (80.0-100.0); Mean Platelet Volume 10.1 fL (8.8-12.5); Monocytes % (Auto) 5.4 % (1.0-12.0); Neutrophils % (Auto) 44.1 % (38.0-78.0); Platelet Count 119 K/mcL (140-440); RBC 3.76 M/mcL (3.59-5.38); Red Cell Distribution Width 14.6 % (11.5-14.5); WBC 5.6 K/mcL (4.5-11.0)
[2023-03-24 06:53] LABS: ALT/SGPT 115 U/L (<40); AST/SGOT 176 U/L (<32); Albumin 2.9 gm/dL (3.2-5.2); Albumin/Globulin Ratio 1.2 (1.0-2.3); Alkaline Phosphatase 146 U/L (39-117); Bilirubin,Total 0.2 mg/dL (0.1-1.0); Blood Urea Nitrogen 8 mg/dL (8-23); Calcium 8.2 mg/dL (8.6-10.4); Carbon Dioxide 29 mmol/L (22-30); Chloride 102 mmol/L (96-108); Globulin 2.5 gm/dL (2.2-3.7); Glomerular Filtration Rate 93; Glucose 88 mg/dL (70-105)
[2023-03-24] MEDS: INSULIN LISPRO 1 UNIT/0.01 ML UNIT SQ SCH ×5 (07:08→21:59)
[2023-03-24] MEDS: LEVOTHYROXINE 125 MCG TABLET PO SCH (07:11)
--- NOTE | 2023-03-24 08:10 | Internal Med Progress Note ---
SUBJECTIVE Subjective Patient information: Note initiated : 03/24/23 at 8:08 am Service Date, if different from initiated Date: [] Patient: Tennille Castillo 77 y/o F admitted on 03/20/23. Chief Complaint: [] Additional PMFSH (Level 3 Only): Ms. Castillo is a 77 year old female with history of diabetes mellitus 2, frequent DKA/HHS, chronic tremors, insomnia presented with 4 to 5 days history of nausea and vomiting and generalized weakness. Patient reported she was feeling sick, had vomiting once a day without any hematemesis, have some lower abdominal pain and was unable to take her insulin secondary to nausea. Patient reports mild constipation. She also is mildly confused as she cannot recall her insulin regimen however able to answer most questions appropriately. Patient reports she is feeling cold and fatigued and very weak. She reports no fever. No chest pain, no palpitations. Denies any cough, sputum production. Reports no ur inary symptoms of dysuria, frequency. No recent travels or sick contacts. On presentation patient with tachypnea respiratory rate 26, tachycardia 99 bpm, blood pressure stable, afebrile. Lab work with leukocytosis of 14,000, chronic anemia with hemoglobin 10.8. Severe metabolic acidosis on VBG with pH 7.04, PCO2 16, HCO3 4.9, lactic acid 2.2. Hyponatremia of 119, hyperkalemia 7.3, hypochloremia 94, creatinine 1.6 up from 0.5 consistent with acute kidney injury, CO2 5, anion gap 36, glucose 868, beta-hydroxybutyrate elevated at 13. Negative troponin. EKG showed sinus rhythm at 88 bpm, mildly hyperacute T wave changes in anterior leads and nonspecific ST-T wave changes. Patient was s tarted on DKA protocol and admitted to ICU. 03/21. Patient remains on IV insulin drip, glucose was down to 60s and was given D50 with appropriate improvement in blood glucose. Feels better but remains fatigued and tired. No nausea or vomiting. Some back pain. Discussed results of abdominal CT scan, no acute finding. Leukocytosis remains. Hyponatremia resolved. Anion gap closed, patient is still acidotic. Beta-hydroxybutyrate down to 0.42 from 13 03/22. Patient is feeling improved she is eating and drinking. Blood glucose this morning was between 200 and 300. Her insulin dose has been adjusted. Leukocytosis has resolved. Hemoglobin low but stable. Electrolytes within normal range. Hyponatremia resolved. Acidosis nearly resolved. LFTs elevated slightly more than baseline. Patient unsure about going home versus SNF. 03/23. Reports eating more however still has some nausea but no vomiting, abdominal discomfort is minimal. No fever or chills, leukocytosis is absent. Potassium is low at 2.7 and will be aggressively replaced. Patient was with relative hypoglycemia this morning. 03/24. Patient has brittle diabetes, her morning glucose today is 88 and yesterday was 72. Her insulin regimen has been adjusted. Patient reports no symptoms of hypoglycemia. After receiving potassium supplementation hypokalemia has resolved and potassium is 4.0 this morning. She has chronic LFTs elevation, patient reports due to fatty liver. LFTs are improving. Review of system 14 point review of system completed. Pertinent positive and negative as mentio ophelia above Physical examination CONSTITUTIONAL: Alert and awake, appears perky, in no acute distress HEAD: Normocephalic. Atraumatic. EYES: EOMI PEERL ENT: No drooling stridor. speech clear fluent. Dry oral mucosa NECK: Supple. Full range of motion. Trachea midline CARDIOVASCULAR: S1-S2. Regular rate and rhythm, systolic murmur. +2 radial pulses bilaterally. PULMONARY: Chest is clear bilaterally ABDOMINAL: Abdomen is soft and nontender EXTREMITIES: No swelling, no bruises SKIN: Warm and dry. No rash. No petechiae. NEUROLOGY: Sensation is intact. No gross focal deficits. Assessment and plan Severe diabetic ketoacidosis. Multiple admissions. Patient with poor self- care and noncompliance with insulin therapy. Patient stopped taking her Lantus and sliding scale. DKA resolved. IV insulin drip discontinued. At home takes 23 units basal insulin and sliding scale scale. Blood glucose readings have been low in a.m. 88, was 72 last morning. Will reduce to Lantus 18 units twice daily. Will hold off on scheduled mealtime insulin. We will continue with sliding scale. Monitor BG's Severe metabolic acidosis with anion gap, secondary to above. Resolved Hypokalemia of 2.7. Replaced and corrected Hyponatremia, corrected sodium 131. Secondary to nausea and vomiting. Resolved Hypochloremia, resolved Hyperkalemia 7.3 with EKG changes. EKG with hyperacute T waves in anterior leads. Status post calcium gluconate, insulin. Now resolved Abdominal pain. CT scan abdomen and pelvis without any acute finding. Leukocytosis. Reactive secondary to DKA. No evidence of infectious etiology. Now resolved #DM2 Poorly controlled insulin-dependent w/neuropathy: -HbA1c of 10.8 on 03/20/2023 #Metabolic encephalopathy secondary to DKA, resolving Acute kidney injury, secondary to volume depletion, resolved with IV fluids Generalized weakness/deconditioning. PT OT #CAD: No chest pain. Troponin negative #Anemia, chronic: H/H stable #Hypothyroidism: cont levothyroxine #Chronic pancreatitis :Continue her home pancreatic enzyme supplements #Hypertriglyceridemia:Statin, fenofibrate #chronically elevated LFT's, improved from before #Essential tremor: on propranolol #chr back pain: continue pain medication #insomnia: Diphenhydramine, melatonin, trazadone #Long-term prognosis quite guarded with multiple admissions and poor compliance -6 admits 2021, 5 admits this year so far #CODE STATUS: DNR Disposition. Awaiting SNF placement Total time > 40 minutes Constitutional Vitals: Vital Signs Temp Pulse Resp BP Pulse Ox O2 Del Method 98.2 F 69 18 145/70 97 Room Air 03/24/23 04:34 03/24/23 04:34 03/24/23 04:34 03/24/23 04:34 03/24/23 04:34 03/24/23 04:34 Period Temp Pulse Resp BP Sys/Rosario Pulse Ox O2 Del Method O2 Flow Rate Last 24 Hr 98.2 F-98.8 F 69-73 16-20 138-172/67-76 97-100 Room Air-Room Air Intake and Output 03/23/23 03/24/23 03/24/23 19:59 03:59 11:59 Intake Total 700 800 237 Output Total 1650 1000 400 Balance -950 -200 -163 Weight 68.402 kg Intake & Output: Intake & Output 03/23/23 03/24/23 03/24/23 19:59 03:59 11:59 Intake Total 700 800 237 Output Total 1650 1000 400 Balance -950 -200 -163 Weight 68.402 kg Intake: IV 300 Lactated Ringers 1,000 ml @ 75 300 mls/hr IV .[id number] PEG Rx#: [id number] Oral 400 800 237 Output: Urine Catheter Amount 1650 Void Amount 1000 400 Other: Meal Lunch Percent of Meal Consumed 100% Feeding Ability Independent Urine Appearance Clear Clear Clear Uretheral (Alcazar) Clear Urine Color Pale Yellow Yellow Uretheral (Alcazar) Pale Urine Odor Normal Normal OBJ DATA Labs 03/24/23 05:37 03/24/23 05:37 Labs: Abnormal Lab Results 03/24/23 03/24/23 03/23/23 05:37 05:37 05:54 Hgb 10.8 L Hct 33.8 L RDW 14.6 H Plt Count 119 L Potassium 2.7 L* Carbon Dioxide Anion Gap 5.0 L Creatinine 0.5 L 0.5 L Glucose Calcium 8.2 L 8.0 L Phosphorus GGT AST 176 H 219 H ALT 115 H 125 H Alkaline Phosphatase 146 H 143 H Lactate Dehydrogenase Total Protein 5.4 L 5.2 L Albumin 2.9 L 2.9 L Beta-Hydroxybutyrate 03/23/23 03/22/23 03/22/23 05:54 05:34 05:34 Hgb 10.8 L 10.4 L Hct 33.3 L 32.4 L RDW 14.6 H 14.9 H Plt Count Potassium Carbon Dioxide 20 L Anion Gap Creatinine Glucose 298 H Calcium 8.0 L Phosphorus 1.6 L GGT 63 H AST 229 H ALT 97 H Alkaline Phosphatase 132 H Lactate Dehydrogenase 261 H Total Protein 4.9 L Albumin 2.7 L Beta-Hydroxybutyrate 03/21/23 03/21/23 03/21/23 21:24 13:35 07:10 Hgb Hct RDW Plt Count Potassium Carbon Dioxide 19 L 21 L Anion Gap Creatinine Glucose Calcium Phosphorus GGT AST ALT Alkaline Phosphatase Lactate Dehydrogenase Total Protein Albumin Beta-Hydroxybutyrate 0.42 H Meds: Medications Acetaminophen (Acetaminophen 325 Mg Tablet) 650 mg PO Q4-6HP PRN; Protocol PRN Reason: Per Pain Protocol/Fever > 101 Al Hydrox/Mg Hydrox/Simethicone (Mag Hydrox/Al Hydrox/Simeth 30 Ml Oral.Susp) 30 ml PO Q4-6HP PRN PRN Reason: Dyspepsia Albuterol Sulfate (Albuterol Sulfate 60 Puff Inhaler) 2 puff INH Q4-6HP PRN PRN Reason: cough, shortness of breath, wheezing Aspirin (Aspirin 81 Mg Tab.Chew) 81 mg PO DAILY PEG Last Admin: 03/23/23 09:37 Dose: 81 mg Atorvastatin Calcium (Atorvastatin 40 Mg Tablet) 40 mg PO QDAY [facility] Last Admin: 03/23/23 09:37 Dose: 40 mg Dextrose (Dextrose 50% 50 Ml Vial) 0 ml IV UD PRN PRN Reason: Per Sliding Scale Diagnostic Test (Pha) (Accu-Chek 1 Each Strip) 1 each FS ACHS [facility] Last Admin: 03/24/23 07:06 Dose: 1 each Diphenhydramine HCl (Diphenhydramine 25 Mg Capsule) 50 mg PO QHS [facility] Last Admin: 03/23/23 21:42 Dose: 50 mg Gabapentin (Gabapentin 400 Mg Capsule) 400 mg PO QIDP PRN PRN Reason: Pain Glucose (Dextrose 31 Gm Oral.Susp) 15 gm PO PRN PRN PRN Reason: Hypoglycemia Hydromorphone HCl (Hydromorphone 0.5 Mg/0.5 Ml Syringe) 0.5 mg IV Q6H PRN; Protocol PRN Reason: Per Pain Protocol Hyoscyamine (Hyoscyamine Sulfate 0.125 Mg Tablet) 0.125 mg SL Q6HP PRN PRN Reason: muscle spasm Insulin Human Regular 50 unit/ (Sodium Chloride) 100.5 mls @ 2.662 mls/hr IV DUR [facility]; Protocol Last Titration: 03/22/23 12:10 Dose: Infused Ibuprofen (Ibuprofen 200 Mg Tablet) 200 mg PO Q6HP PRN PRN Reason: Pain Insulin Glargine (Insulin Glargine, Human 1 Unit/0.01 Ml) 15 unit SQ BID [facility] Insulin Human Lispro (Insulin Lispro 1 Unit/0.01 Ml Unit) 0 unit SQ [facility]; Protocol Last Admin: 03/24/23 07:08 Dose: Not Given Levothyroxine Sodium ([facility] 125 Mcg Tablet) [facility] Last Admin: 03/24/23 07:11 Dose: 125 mcg Melatonin (Melatonin 3 Mg Tablet) 3 mg PO HSP PRN PRN Reason: sleep Ondansetron HCl (Ondansetron 4 Mg/2 Ml Vial) 4 mg IV Q4-6HP PRN; Protocol PRN Reason: Nausea And Vomiting Last Admin: 03/23/23 21:42 Dose: 4 mg Oxycodone HCl (Oxycodone Ir 5 Mg Tablet) 5 mg PO BIDP PRN; Protocol PRN Reason: breakthrough pain Last Admin: 03/23/23 09:37 Dose: 5 mg Lipase-Protease- Amylase [Zenpep] 40, 000-126,000-168,000 Cap 1 dose PO TIDCC [facility] Last Admin: 03/23/23 16:39 Dose: Not Given Betamethasone Valerate 0.1 % Ointment 1 dose TOPICAL BIDP PRN PRN Reason: psoriosis Promethazine HCl (Promethazine 25 Mg/Ml Vial) 12.5 mg IV Q4-6HP PRN; Protocol PRN Reason: Nausea And Vomiting Propranolol HCl (Propranolol 10 Mg Tablet) 10 mg PO TID [facility] Last Admin: 03/23/23 21:42 Dose: 10 mg Senna (Sennosides 1 Tablet) 1 tab PO HSP PRN PRN Reason: Constipation Last Admin: 03/23/23 02:21 Dose: 1 tab Sodium Chloride (0.9 % Sodium Chloride 10 Ml Syringe) 10 ml IV Q8 [facility] Last Admin: 03/24/23 05:51 Dose: 10 ml Tramadol HCl (Tramadol 50 Mg Tablet) 50 mg PO Q8HP PRN PRN Reason: Pain Last Admin: 03/24/23 05:51 Dose: 50 mg Trazodone HCl (Trazodone Hcl 100 Mg Tablet) 100 mg PO HSP [facility] Last Admin: 03/23/23 19:07 Dose: 100 mg Vitamin D (Vitamin D3 25 Mcg Tablet) 100 mcg PO DAILY [facility] Last Admin: 03/23/23 09:38 Dose: 100 mcg ABG Interpretation ABG results: 03/20/23 03/21/23 17:27 07:10 ABG Methemoglobin 0.4 0.6 VBG pH 7.06 L* 7.40 VBG pCO2 23.4 L 31.7 L VBG pO2 65.6 H 140.4 H VBG HCO3 6.5 L* 19.0 L VBG Total CO2 7.2 L* 19.9 L VBG O2 Saturation 84.7 H 92.2 H VBG Base Excess -22 L -5 L A/P Time Spent With Patient Time: Total time spent is greater than 50% in coordination of care (as documented) at patient's floor/unit and/or counseling patient: QUALITY Stroke Symptom Onset Unknown: No
[2023-03-24] MEDS: ASPIRIN 81 MG TAB.CHEW PO SCH (08:40)
[2023-03-24] MEDS: LIPASE PROTEASE AMYLASE PO SCH ×4 (08:40→22:06)
[2023-03-24] MEDS: ATORVASTATIN 40 MG TABLET PO SCH (08:40)
[2023-03-24] MEDS: VITAMIN D3 25 MCG TABLET PO SCH (08:40)
[2023-03-24] MEDS: PROPRANOLOL 10 MG TABLET PO SCH ×3 (08:40→21:58)
[2023-03-24] MEDS: INSULIN GLARGINE, HUMAN 1 UNIT/0.01 ML SQ SCH ×2 (08:41→21:59)
[2023-03-24] MEDS ORDERED: INSULIN GLARGINE, HUMAN 1 UNIT/0.01 ML SQ SCH (09:00)
[2023-03-24] MEDS: traZODone HCL 100 MG TABLET PO SCH (21:58)
[2023-03-24] MEDS: MELATONIN 3 MG TABLET PO PRN (21:58)
[2023-03-24] MEDS: diphenhydrAMINE 25 MG CAPSULE PO SCH (21:58)
[2023-03-25] MEDS: 0.9 % SODIUM CHLORIDE 10 ML SYRINGE IV SCH ×3 (04:21→21:39)
[2023-03-25 07:06] LABS: Basophils # (Auto) 0.03 K/mcL (0.00-0.30); Basophils % (Auto) 0.5 % (0.0-2.0); Eosinophils # (Auto) 0.31 K/mcL (0.00-0.70); Eosinophils % (Auto) 4.7 % (0.0-7.0); Hematocrit 32.5 % (34.1-44.9); Hemoglobin 10.5 g/dL (11.2-15.7); Lymphocytes # (Auto) 1.98 K/mcL (1.50-4.80); Lymphocytes % (Auto) 30.3 % (15.5-49.0); Mean Cell Volume 89.3 fL (80.0-100.0); Mean Corpuscular HGB Conc 32.3 g/dL (31.0-36.0); Mean Platelet Volume 11.3 fL (8.8-12.5); Monocytes # (Auto) 0.35 K/mcL (0.10-0.90); Monocytes % (Auto) 5.4 % (1.0-12.0); Neutrophils % (Auto) 58.9 % (38.0-78.0); Platelet Count 110 K/mcL (140-440); RBC 3.64 M/mcL (3.59-5.38); Red Cell Distribution Width 14.2 % (11.5-14.5); WBC 6.5 K/mcL (4.5-11.0)
[2023-03-25 07:24] LABS: ALT/SGPT 87 U/L (<40); AST/SGOT 92 U/L (<32); Albumin 2.9 gm/dL (3.2-5.2); Albumin/Globulin Ratio 1.3 (1.0-2.3); Alkaline Phosphatase 134 U/L (39-117); Bilirubin,Total 0.2 mg/dL (0.1-1.0); Blood Urea Nitrogen 13 mg/dL (8-23); Calcium 8.5 mg/dL (8.6-10.4); Carbon Dioxide 31 mmol/L (22-30); Chloride 103 mmol/L (96-108); Globulin 2.2 gm/dL (2.2-3.7); Glomerular Filtration Rate 88; Glucose 151 mg/dL (70-105)
[2023-03-25] MEDS: LIPASE PROTEASE AMYLASE PO SCH ×3 (07:25→17:02)
[2023-03-25] MEDS: LEVOTHYROXINE 125 MCG TABLET PO SCH (07:25)
[2023-03-25] MEDS: INSULIN LISPRO 1 UNIT/0.01 ML UNIT SQ SCH ×4 (07:25→21:46)
[2023-03-25] MEDS: INSULIN GLARGINE, HUMAN 1 UNIT/0.01 ML SQ SCH ×2 (08:45→21:36)
[2023-03-25] MEDS: VITAMIN D3 25 MCG TABLET PO SCH (08:46)
[2023-03-25] MEDS: ASPIRIN 81 MG TAB.CHEW PO SCH (08:46)
[2023-03-25] MEDS: PROPRANOLOL 10 MG TABLET PO SCH ×3 (08:46→21:35)
[2023-03-25] MEDS: ATORVASTATIN 40 MG TABLET PO SCH (08:46)
--- NOTE | 2023-03-25 14:21 | Internal Med Progress Note ---
SUBJECTIVE Subjective Patient information: Note initiated : 03/25/23 at 2:18 pm Service Date, if different from initiated Date: [] Patient: Tennille Castillo 77 y/o F admitted on 03/20/23. Chief Complaint: [] Interval history: Ms. Castillo is a 77 year old female with history of diabetes mellitus 2, frequent DKA/HHS, chronic tremors, insomnia presented with 4 to 5 days history of nausea and vomiting and generalized weakness. Patient reported she was feeling sick, had vomiting once a day without any hematemesis, have some lower abdominal pain and was unable to take her insulin secondary to nausea. Patient reports mild constipation. She also is mildly confused as she cannot recall her insulin regimen however able to answer most questions appropriately. Patient reports she is feeling cold and fatigued and very weak. She reports no fever. No chest pain, no palpitations. Denies any cough, sputum production. Reports no urinary symptoms of dysuria, frequency. No recent travels or sick contacts. On presentation patient with tachypnea respiratory rate 26, tachycardia 99 bpm, blood pressure stable, afebrile. Lab work with leukocytosis of 14,000, chronic anemia with hemoglobin 10.8. Severe metabolic acidosis on VBG with pH 7.04, PCO2 16, HCO3 4.9, lactic acid 2.2. Hyponatremia of 119, hyperkalemia 7.3, hypochloremia 94, creatinine 1.6 up from 0.5 consistent with acute kidney injury, CO2 5, anion gap 36, glucose 868, beta-hydroxybutyrate elevated at 13. Negative troponin. EKG showed sinus rhythm at 88 bpm, mildly hyperacute T wave changes in anterior leads and nonspecific ST-T wave changes. Patient was started on DKA protocol and admitted to ICU. 03/21. Patient remains on IV insulin drip, glucose was down to 60s and was given D50 with appropriate improvement in blood glucose. Feels better but remains fatigued and tired. No nausea or vomiting. Some back pain. Discussed results of abdominal CT scan, no acute finding. Leukocytosis remains. Hyponatremia resolved. Anion gap closed, patient is still acidotic. Beta-hydroxybutyrate down to 0.42 from 13 03/22. Patient is feeling improved she is eating and drinking. Blood glucose this morning was between 200 and 300. Her insulin dose has been adjusted. Nigel kocytosis has resolved. Hemoglobin low but stable. Electrolytes within normal range. Hyponatremia resolved. Acidosis nearly resolved. LFTs elevated slightly more than baseline. Patient unsure about going home versus SNF. 03/23. Reports eating more however still has some nausea but no vomiting, abdominal discomfort is minimal. No fever or chills, leukocytosis is absent. Potassium is low at 2.7 and will be aggressively replaced. Patient was with relative hypoglycemia this morning. 03/24. Patient has brittle diabetes, her morning glucose today is 88 and yesterday was 72. Her insulin regimen has been adjusted. Patient reports no symptoms of hypoglycemia. After receiving potassium supplementation hypokalemia has resolved and potassium is 4.0 this morning. She has chronic LFTs eleva tion, patient reports due to fatty liver. LFTs are improving. 03/25. No significant events overnight, vitals stable. Glycemic control stable. Stable morning labs, awaiting placement. Physical exam Head: Atraumatic, normal inspection. Eyes: normal appearance, no scleral icterus. Neck: full ROM Respiratory: no respiratory distress. Cardiovascular: normal rate and rhythm, S1, S2. GI/Abdominal: soft, nontender, no guarding. Extremities: full range of motion, nontender. Neurological: CN II-XII intact, intact motor, intact sensation. Psychiatric: normal mood. Skin: warm, normal color Constitutional Vitals: Vital Signs Temp Pulse Resp BP Pulse Ox O2 Del Method 98.8 F 68 16 131/74 98 Room Air 03/25/23 12:00 03/25/23 12:00 03/25/23 12:00 03/25/23 12:00 03/25/23 12:00 03/25/23 12:00 Period Temp Pulse Resp BP Sys/Rosario Pulse Ox O2 Del Method O2 Flow Rate Last 24 Hr 97.9 F-98.8 F 66-76 14-19 121-145/58-74 96-99 Room Air-Room Air Intake and Output 03/25/23 03/25/23 03/25/23 03:59 11:59 19:59 Intake Total 800 450 Output Total 600 700 Balance 200 -250 Weight 68.946 kg Intake & Output: Intake & Output 03/25/23 03/25/23 03/25/23 03:59 11:59 19:59 Intake Total 800 450 Output Total 600 700 Balance 200 -250 Weight 68.946 kg Intake: Oral 800 450 Output: Void Amount 600 700 Other: Urine Appearance Clear Clear Urine Color Yellow Yellow Urine Odor Normal Normal OBJ DATA Labs 03/25/23 05:33 03/25/23 05:32 Labs: Abnormal Lab Results 03/25/23 03/25/23 03/24/23 05:33 05:32 05:37 Hgb 10.5 L Hct 32.5 L RDW Plt Count 110 L Potassium Carbon Dioxide 31 H Anion Gap 7.0 L 5.0 L Creatinine 0.5 L Glucose 151 H Calcium 8.5 L 8.2 L AST 92 H 176 H ALT 87 H 115 H Alkaline Phosphatase 134 H 146 H Total Protein 5.1 L 5.4 L Albumin 2.9 L 2.9 L 03/24/23 03/23/23 03/23/23 05:37 05:54 05:54 Hgb 10.8 L 10.8 L Hct 33.8 L 33.3 L RDW 14.6 H 14.6 H Plt Count 119 L Potassium 2.7 L* Carbon Dioxide Anion Gap Creatinine 0.5 L Glucose Calcium 8.0 L AST 219 H ALT 125 H Alkaline Phosphatase 143 H Total Protein 5.2 L Albumin 2.9 L Meds: Medications Acetaminophen (Acetaminophen 325 Mg Tablet) 650 mg PO Q4-6HP PRN; Protocol PRN Reason: Per Pain Protocol/Fever > 101 Al Hydrox/Mg Hydrox/Simethicone (Mag Hydrox/Al Hydrox/Simeth 30 Ml Oral.Susp) 30 ml PO Q4-6HP PRN PRN Reason: Dyspepsia Albuterol Sulfate (Albuterol Sulfate 60 Puff Inhaler) 2 puff INH Q4-6HP PRN PRN Reason: cough, shortness of breath, wheezing Aspirin (Aspirin 81 Mg Tab.Chew) 81 mg PO DAILY [facility] Last Admin: 03/25/23 08:46 Dose: 81 mg Atorvastatin Calcium (Atorvastatin 40 Mg Tablet) 40 mg PO QDAY PEG Last Admin: 03/25/23 08:46 Dose: 40 mg Dextrose (Dextrose 50% 50 Ml Vial) 0 ml IV UD PRN PRN Reason: Per Sliding Scale Diagnostic Test (Pha) (Accu-Chek 1 Each Strip) 1 each FS ACHS [facility] Last Admin: 03/25/23 11:34 Dose: 1 each Diphenhydramine HCl (Diphenhydramine 25 Mg Capsule) 50 mg PO QHS [facility] Last Admin: 03/24/23 21:58 Dose: 50 mg Gabapentin (Gabapentin 400 Mg Capsule) 400 mg PO QIDP PRN PRN Reason: Pain Glucose (Dextrose 31 Gm Oral.Susp) 15 gm PO PRN PRN PRN Reason: Hypoglycemia Hydromorphone HCl (Hydromorphone 0.5 Mg/0.5 Ml Syringe) 0.5 mg IV Q6H PRN; Protocol PRN Reason: Per Pain Protocol Hyoscyamine (Hyoscyamine Sulfate 0.125 Mg Tablet) 0.125 mg SL Q6HP PRN PRN Reason: muscle spasm Insulin Human Regular 50 unit/ (Sodium Chloride) 100.5 mls @ 2.662 mls/hr IV DUR [facility]; Protocol Last Titration: 03/22/23 12:10 Dose: Infused Ibuprofen (Ibuprofen 200 Mg Tablet) 200 mg PO Q6HP PRN PRN Reason: Pain Insulin Glargine (Insulin Glargine, Human 1 Unit/0.01 Ml) 18 unit SQ BID [facility] Last Admin: 03/25/23 08:45 Dose: 18 units Insulin Human Lispro (Insulin Lispro 1 Unit/0.01 Ml Unit) 0 unit SQ [facility]; Protocol Last Admin: 03/25/23 11:34 Dose: 6 unit Levothyroxine Sodium (Levothyroxine 125 Mcg Tablet) 125 mcg PO QAMAC [facility] Last Admin: 03/25/23 07:25 Dose: 125 mcg Melatonin (Melatonin 3 Mg Tablet) 3 mg PO HSP PRN PRN Reason: sleep Last Admin: 03/24/23 21:58 Dose: 3 mg Ondansetron HCl (Ondansetron 4 Mg/2 Ml Vial) 4 mg IV Q4-6HP PRN; Protocol PRN Reason: Nausea And Vomiting Last Admin: 03/23/23 21:42 Dose: 4 mg Oxycodone HCl (Oxycodone Ir 5 Mg Tablet) 5 mg PO BIDP PRN; Protocol PRN Reason: breakthrough pain Last Admin: 03/23/23 09:37 Dose: 5 mg Lipase-Protease- Amylase [Zenpep] 40, 000-126,000-168,000 Cap 1 dose PO TIDCC [facility] Last Admin: 03/25/23 11:34 Dose: 1 dose Betamethasone Valerate 0.1 % Ointment 1 dose TOPICAL BIDP PRN PRN Reason: psoriosis Promethazine HCl (Promethazine 25 Mg/Ml Vial) 12.5 mg IV Q4-6HP PRN; Protocol PRN Reason: Nausea And Vomiting Propranolol HCl (Propranolol 10 Mg Tablet) 10 mg PO TID [facility] Last Admin: 03/25/23 08:46 Dose: 10 mg Senna (Sennosides 1 Tablet) 1 tab PO HSP PRN PRN Reason: Constipation Last Admin: 03/23/23 02:21 Dose: 1 tab Sodium Chloride (0.9 % Sodium Chloride 10 Ml Syringe) 10 ml IV Q8 [facility] Last Admin: 03/25/23 13:29 Dose: 10 ml Tramadol HCl (Tramadol 50 Mg Tablet) 50 mg PO Q8HP PRN PRN Reason: Pain Last Admin: 03/24/23 15:21 Dose: 50 mg Trazodone HCl (Trazodone Hcl 100 Mg Tablet) 100 mg PO HSP [facility] Last Admin: 03/24/23 21:58 Dose: 100 mg Vitamin D (Vitamin D3 25 Mcg Tablet) 100 mcg PO DAILY [facility] Last Admin: 03/25/23 08:46 Dose: 100 mcg ABG Interpretation ABG results: 03/20/23 03/21/23 17:27 07:10 ABG Methemoglobin 0.4 0.6 VBG pH 7.06 L* 7.40 VBG pCO2 23.4 L 31.7 L VBG pO2 65.6 H 140.4 H VBG HCO3 6.5 L* 19.0 L VBG Total CO2 7.2 L* 19.9 L VBG O2 Saturation 84.7 H 92.2 H VBG Base Excess -22 L -5 L A/P Narrative A/P Narrative: Assessment: 77-year-old female with a history of insulin-dependent type 2 diabetes mellitus and multiple medical comorbidities admitted for DKA which has resolved. The resident for DKA is likely medical noncompliance. The patient is currently awaiting placement. #Insulin-dependent type 2 diabetes mellitus #Resolved diabetic ketoacidosis #Resolved hyperkalemia #Resolved hypokalemia #Resolved hyponatremia #Resolved acute kidney injury #Coronary artery disease, stable #Chronic anemia #Chronic pancreatitis #Chronically elevated LFTs #Essential tremor #Hypothyroidism #Chronic pain on opioid #Generalized weakness #Medication noncompliance Plan -Awaiting placement for low intensity rehab. -Lantus 18 units twice daily. -Correction Humalog SSI high-dose. -Continue home albuterol, aspirin, atorvastatin, gabapentin, levothyroxine, oxycodone, Zenpep, propranolol, tramadol, trazodone. -PT and OT. -CODE STATUS: DNR/DNI. Time Spent With Patient Time: Total time spent is greater than 50% in coordination of care (as documented) at patient's floor/unit and/or counseling patient: QUALITY Stroke Symptom Onset Unknown: No
[2023-03-25] MEDS: HYOSCYAMINE SULFATE 0.125 MG TABLET SL PRN (17:02)
[2023-03-25] MEDS: MELATONIN 3 MG TABLET PO PRN (21:35)
[2023-03-25] MEDS: diphenhydrAMINE 25 MG CAPSULE PO SCH (21:35)
[2023-03-25] MEDS: traZODone HCL 100 MG TABLET PO SCH (21:35)
[2023-03-25] MEDS: ONDANSETRON 4 MG/2 ML VIAL IV PRN (21:47)
[2023-03-25] MEDS: traMADol 50 MG TABLET PO PRN (21:47)
[2023-03-26 06:38] LABS: Basophils # (Auto) 0.04 K/mcL (0.00-0.30); Basophils % (Auto) 0.6 % (0.0-2.0); Eosinophils # (Auto) 0.26 K/mcL (0.00-0.70); Eosinophils % (Auto) 4.1 % (0.0-7.0); Hemoglobin 10.6 g/dL (11.2-15.7); Lymphocytes # (Auto) 2.19 K/mcL (1.50-4.80); Lymphocytes % (Auto) 34.7 % (15.5-49.0); Mean Cell Volume 89.2 fL (80.0-100.0); Mean Corpuscular HGB Conc 32.1 g/dL (31.0-36.0); Mean Platelet Volume 11.2 fL (8.8-12.5); Monocytes # (Auto) 0.36 K/mcL (0.10-0.90); Monocytes % (Auto) 5.7 % (1.0-12.0); Neutrophils % (Auto) 54.4 % (38.0-78.0); Platelet Count 131 K/mcL (140-440); Red Cell Distribution Width 14.3 % (11.5-14.5); WBC 6.3 K/mcL (4.5-11.0)
[2023-03-26 06:59] LABS: ALT/SGPT 64 U/L (<40); AST/SGOT 46 U/L (<32); Albumin 2.8 gm/dL (3.2-5.2); Albumin/Globulin Ratio 1.2 (1.0-2.3); Alkaline Phosphatase 126 U/L (39-117); Bilirubin,Total 0.2 mg/dL (0.1-1.0); Blood Urea Nitrogen 14 mg/dL (8-23); Calcium 8.6 mg/dL (8.6-10.4); Carbon Dioxide 30 mmol/L (22-30); Chloride 100 mmol/L (96-108); Globulin 2.4 gm/dL (2.2-3.7); Glomerular Filtration Rate 88; Glucose 176 mg/dL (70-105)
[2023-03-26] MEDS: 0.9 % SODIUM CHLORIDE 10 ML SYRINGE IV SCH ×2 (07:19→14:38)
[2023-03-26] MEDS: INSULIN LISPRO 1 UNIT/0.01 ML UNIT SQ SCH ×4 (07:52→22:12)
[2023-03-26] MEDS: LEVOTHYROXINE 125 MCG TABLET PO SCH (07:59)
[2023-03-26] MEDS: LIPASE PROTEASE AMYLASE PO SCH ×3 (07:59→16:57)
[2023-03-26] MEDS: ASPIRIN 81 MG TAB.CHEW PO SCH (09:03)
[2023-03-26] MEDS: ATORVASTATIN 40 MG TABLET PO SCH (09:04)
[2023-03-26] MEDS: PROPRANOLOL 10 MG TABLET PO SCH ×3 (09:04→21:54)
[2023-03-26] MEDS: INSULIN GLARGINE, HUMAN 1 UNIT/0.01 ML SQ SCH ×2 (09:04→21:54)
[2023-03-26] MEDS: VITAMIN D3 25 MCG TABLET PO SCH (09:04)
--- NOTE | 2023-03-26 13:30 | Internal Med Progress Note ---
SUBJECTIVE Subjective Patient information: Note initiated : 03/26/23 at 1:29 pm Service Date, if different from initiated Date: [] Patient: Tennille Castillo 77 y/o F admitted on 03/20/23. Chief Complaint: [] Interval history: Ms. Castillo is a 77 year old female with history of diabetes mellitus 2, frequent DKA/HHS, chronic tremors, insomnia presented with 4 to 5 days history of nausea and vomiting and generalized weakness. Patient reported she was feeling sick, had vomiting once a day without any hematemesis, have some lower abdominal pain and was unable to take her insulin secondary to nausea. Patient reports mild constipation. She also is mildly confused as she cannot recall her insulin regimen however able to answer most questions appropriately. Patient reports she is feeling cold and fatigued and very weak. She reports no fever. No chest pain, no palpitations. Denies any cough, sputum production. Reports no urinary symptoms of dysuria, frequency. No recent travels or sick contacts. On presentation patient with tachypnea respiratory rate 26, tachycardia 99 bpm, blood pressure stable, afebrile. Lab work with leukocytosis of 14,000, chronic anemia with hemoglobin 10.8. Severe metabolic acidosis on VBG with pH 7.04, PCO2 16, HCO3 4.9, lactic acid 2.2. Hyponatremia of 119, hyperkalemia 7.3, hypochloremia 94, creatinine 1.6 up from 0.5 consistent with acute kidney injury, CO2 5, anion gap 36, glucose 868, beta-hydroxybutyrate elevated at 13. Negative troponin. EKG showed sinus rhythm at 88 bpm, mildly hyperacute T wave changes in anterior leads and nonspecific ST-T wave changes. Patient was started on DKA protocol and admitted to ICU. 03/21. Patient remains on IV insulin drip, glucose was down to 60s and was given D50 with appropriate improvement in blood glucose. Feels better but remains fatigued and tired. No nausea or vomiting. Some back pain. Discussed results of abdominal CT scan, no acute finding. Leukocytosis remains. Hyponatremia resolved. Anion gap closed, patient is still acidotic. Beta-hydroxybutyrate down to 0.42 from 13 03/22. Patient is feeling improved she is eating and drinking. Blood glucose this morning was between 200 and 300. Her insulin dose has been adjusted. Nigel kocytosis has resolved. Hemoglobin low but stable. Electrolytes within normal range. Hyponatremia resolved. Acidosis nearly resolved. LFTs elevated slightly more than baseline. Patient unsure about going home versus SNF. 03/23. Reports eating more however still has some nausea but no vomiting, abdominal discomfort is minimal. No fever or chills, leukocytosis is absent. Potassium is low at 2.7 and will be aggressively replaced. Patient was with relative hypoglycemia this morning. 03/24. Patient has brittle diabetes, her morning glucose today is 88 and yesterday was 72. Her insulin regimen has been adjusted. Patient reports no symptoms of hypoglycemia. After receiving potassium supplementation hypokalemia has resolved and potassium is 4.0 this morning. She has chronic LFTs eleva tion, patient reports due to fatty liver. LFTs are improving. 03/25. No significant events overnight, vitals stable. Glycemic control stable. Stable morning labs, awaiting placement. 03/26. Vital stable overnight. Glycemic control satisfactory. Awaiting prior authorization for low intensity rehab. Physical exam Head: Atraumatic, normal inspection. Eyes: normal appearance, no scleral icterus. Neck: full ROM Respiratory: no respiratory distress. Cardiovascular: normal rate and rhythm, S1, S2. GI/Abdominal: soft, nontender, no guarding. Extremities: full range of motion, nontender. Neurological: CN II-XII intact, intact motor, intact sensation. Psychiatric: normal mood. Skin: warm, normal color Constitutional Vitals: Vital Signs Temp Pulse Resp BP Pulse Ox O2 Del Method 98.4 F 72 16 121/55 96 Room Air 03/26/23 11:48 03/26/23 11:48 03/26/23 11:48 03/26/23 11:48 03/26/23 11:48 03/26/23 11:48 Period Temp Pulse Resp BP Sys/Rosario Pulse Ox O2 Del Method O2 Flow Rate Last 24 Hr 96.9 F-98.4 F 65-80 14-17 110-162/54-73 96-100 Room Air-Room Air Intake and Output 03/26/23 03/26/23 03/26/23 03:59 11:59 19:59 Intake Total 490 Output Total 300 1000 Balance 190 -1000 Intake & Output: Intake & Output 03/26/23 03/26/23 03/26/23 03:59 11:59 19:59 Intake Total 490 Output Total 300 1000 Balance 190 -1000 Intake: Oral 490 Output: Void Amount 300 1000 Other: Meal Julia Percent of Meal Consumed 100% Feeding Ability Independent Urine Appearance Clear Clear Urine Color Yellow Yellow OBJ DATA Labs 03/26/23 05:48 03/26/23 05:48 Labs: Abnormal Lab Results 03/26/23 03/26/23 03/25/23 05:48 05:48 05:33 Hgb 10.6 L 10.5 L Hct 33.0 L 32.5 L RDW Plt Count 131 L 110 L Carbon Dioxide Anion Gap 7.0 L Creatinine Glucose 176 H Calcium AST 46 H ALT 64 H Alkaline Phosphatase 126 H Total Protein 5.2 L Albumin 2.8 L 03/25/23 03/24/23 03/24/23 05:32 05:37 05:37 Hgb 10.8 L Hct 33.8 L RDW 14.6 H Plt Count 119 L Carbon Dioxide 31 H Anion Gap 7.0 L 5.0 L Creatinine 0.5 L Glucose 151 H Calcium 8.5 L 8.2 L AST 92 H 176 H ALT 87 H 115 H Alkaline Phosphatase 134 H 146 H Total Protein 5.1 L 5.4 L Albumin 2.9 L 2.9 L Meds: Medications Acetaminophen (Acetaminophen 325 Mg Tablet) 650 mg PO Q4-6HP PRN; Protocol PRN Reason: Per Pain Protocol/Fever > 101 Al Hydrox/Mg Hydrox/Simethicone (Mag Hydrox/Al Hydrox/Simeth 30 Ml Oral.Susp) 30 ml PO Q4-6HP PRN PRN Reason: Dyspepsia Albuterol Sulfate (Albuterol Sulfate 60 Puff Inhaler) 2 puff INH Q4-6HP PRN PRN Reason: cough, shortness of breath, wheezing Aspirin (Aspirin 81 Mg Tab.Chew) 81 mg PO DAILY [facility] Last Admin: 03/26/23 09:03 Dose: 81 mg Atorvastatin Calcium (Atorvastatin 40 Mg Tablet) 40 mg PO QDAY [facility] Last Admin: 03/26/23 09:04 Dose: 40 mg Dextrose (Dextrose 50% 50 Ml Vial) 0 ml IV UD PRN PRN Reason: Per Sliding Scale Diagnostic Test (Pha) (Accu-Chek 1 Each Strip) 1 each FS ACHS [facility] Last Admin: 03/26/23 12:01 Dose: 1 each Diphenhydramine HCl (Diphenhydramine 25 Mg Capsule) 50 mg PO QHS [facility] Last Admin: 03/25/23 21:35 Dose: 50 mg Gabapentin (Gabapentin 400 Mg Capsule) 400 mg PO QIDP PRN PRN Reason: Pain Glucose (Dextrose 31 Gm Oral.Susp) 15 gm PO PRN PRN PRN Reason: Hypoglycemia Hydromorphone HCl (Hydromorphone 0.5 Mg/0.5 Ml Syringe) 0.5 mg IV Q6H PRN; Protocol PRN Reason: Per Pain Protocol Hyoscyamine (Hyoscyamine Sulfate 0.125 Mg Tablet) 0.125 mg SL Q6HP PRN PRN Reason: muscle spasm Last Admin: 03/25/23 17:02 Dose: 0.125 mg Insulin Human Regular 50 unit/ (Sodium Chloride) 100.5 mls @ 2.662 mls/hr IV DUR [facility]; Protocol Last Titration: 03/22/23 12:10 Dose: Infused Insulin Glargine (Insulin Glargine, Human 1 Unit/0.01 Ml) 18 unit SQ BID [facility] Last Admin: 03/26/23 09:04 Dose: 18 units Insulin Human Lispro (Insulin Lispro 1 Unit/0.01 Ml Unit) 0 unit SQ ACHS [facility]; Protocol Last Admin: 03/26/23 12:00 Dose: 6 unit Levothyroxine Sodium (Levothyroxine 125 Mcg Tablet) 125 mcg PO QAMAC [facility] Last Admin: 03/26/23 07:59 Dose: 125 mcg Melatonin (Melatonin 3 Mg Tablet) 3 mg PO HSP PRN PRN Reason: sleep Last Admin: 03/25/23 21:35 Dose: 3 mg Ondansetron HCl (Ondansetron 4 Mg/2 Ml Vial) 4 mg IV Q4-6HP PRN; Protocol PRN Reason: Nausea And Vomiting Last Admin: 03/25/23 21:47 Dose: 4 mg Oxycodone HCl (Oxycodone Ir 5 Mg Tablet) 5 mg PO BIDP PRN; Protocol PRN Reason: breakthrough pain Last Admin: 03/23/23 09:37 Dose: 5 mg Lipase-Protease- Amylase [Zenpep] 40, 000-126,000-168,000 Cap 1 dose PO TIDCC [facility] Last Admin: 03/26/23 12:01 Dose: 1 dose Betamethasone Valerate 0.1 % Ointment 1 dose TOPICAL BIDP PRN PRN Reason: psoriosis Promethazine HCl (Promethazine 25 Mg/Ml Vial) 12.5 mg IV Q4-6HP PRN; Protocol PRN Reason: Nausea And Vomiting Propranolol HCl (Propranolol 10 Mg Tablet) 10 mg PO TID [facility] Last Admin: 03/26/23 09:04 Dose: 10 mg Senna (Sennosides 1 Tablet) 1 tab PO HSP PRN PRN Reason: Constipation Last Admin: 03/23/23 02:21 Dose: 1 tab Sodium Chloride (0.9 % Sodium Chloride 10 Ml Syringe) 10 ml IV Q8 [facility] Last Admin: 03/26/23 07:19 Dose: 10 ml Tramadol HCl (Tramadol 50 Mg Tablet) 50 mg PO Q8HP PRN PRN Reason: Pain Last Admin: 03/25/23 21:47 Dose: 50 mg Trazodone HCl (Trazodone Hcl 100 Mg Tablet) 100 mg PO HSP [facility] Last Admin: 03/25/23 21:35 Dose: 100 mg Vitamin D (Vitamin D3 25 Mcg Tablet) 100 mcg PO DAILY [facility] Last Admin: 03/26/23 09:04 Dose: 100 mcg ABG Interpretation ABG results: 03/20/23 03/21/23 17:27 07:10 ABG Methemoglobin 0.4 0.6 VBG pH 7.06 L* 7.40 VBG pCO2 23.4 L 31.7 L VBG pO2 65.6 H 140.4 H VBG HCO3 6.5 L* 19.0 L VBG Total CO2 7.2 L* 19.9 L VBG O2 Saturation 84.7 H 92.2 H VBG Base Excess -22 L -5 L A/P Narrative A/P Narrative: Assessment: 77-year-old female with a history of insulin-dependent type 2 diabetes mellitus and multiple medical comorbidities admitted for DKA which has resolved. The resident for DKA is likely medical noncompliance. The patient is currently awaiting placement. #Insulin-dependent type 2 diabetes mellitus #Resolved diabetic ketoacidosis #Resolved hyperkalemia #Resolved hypokalemia #Resolved hyponatremia #Resolved acute kidney injury #Coronary artery disease, stable #Chronic anemia #Chronic pancreatitis #Chronically elevated LFTs #Essential tremor #Hypothyroidism #Chronic pain on opioid #Generalized weakness #Medication noncompliance Plan -Awaiting placement for low intensity rehab. -Lantus 18 units twice daily. -Correction Humalog SSI high-dose. -Continue home albuterol, aspirin, atorvastatin, gabapentin, levothyroxine, oxycodone, Zenpep, propranolol, tramadol, trazodone. -PT and OT. -CODE STATUS: DNR/DNI. Time Spent With Patient Time: Total time spent is greater than 50% in coordination of care (as documented) at patient's floor/unit and/or counseling patient: QUALITY Stroke Symptom Onset Unknown: No
[2023-03-26] MEDS: HYOSCYAMINE SULFATE 0.125 MG TABLET SL PRN (19:08)
[2023-03-26] MEDS: traZODone HCL 100 MG TABLET PO SCH (21:54)
[2023-03-26] MEDS: MELATONIN 3 MG TABLET PO PRN (21:54)
[2023-03-26] MEDS: diphenhydrAMINE 25 MG CAPSULE PO SCH (21:54)
[2023-03-27 06:59] LABS: Basophils # (Auto) 0.05 K/mcL (0.00-0.30); Basophils % (Auto) 0.7 % (0.0-2.0); Eosinophils # (Auto) 0.23 K/mcL (0.00-0.70); Hematocrit 33.5 % (34.1-44.9); Hemoglobin 10.4 g/dL (11.2-15.7); Lymphocytes % (Auto) 33.9 % (15.5-49.0); Mean Cell Volume 94.1 fL (80.0-100.0); Mean Platelet Volume 11.4 fL (8.8-12.5); Monocytes # (Auto) 0.46 K/mcL (0.10-0.90); Platelet Count 152 K/mcL (140-440); RBC 3.56 M/mcL (3.59-5.38); Red Cell Distribution Width 14.6 % (11.5-14.5); WBC 7.7 K/mcL (4.5-11.0)
[2023-03-27] MEDS: 0.9 % SODIUM CHLORIDE 10 ML SYRINGE IV SCH ×4 (07:38→21:20)
[2023-03-27] MEDS: INSULIN LISPRO 1 UNIT/0.01 ML UNIT SQ SCH ×4 (07:50→21:26)
[2023-03-27] MEDS: LEVOTHYROXINE 125 MCG TABLET PO SCH (07:51)
[2023-03-27] MEDS: LIPASE PROTEASE AMYLASE PO SCH ×3 (07:51→17:40)
[2023-03-27] MEDS: ATORVASTATIN 40 MG TABLET PO SCH (07:51)
[2023-03-27] MEDS: ASPIRIN 81 MG TAB.CHEW PO SCH (07:51)
[2023-03-27] MEDS: VITAMIN D3 25 MCG TABLET PO SCH (07:51)
[2023-03-27] MEDS: PROPRANOLOL 10 MG TABLET PO SCH ×3 (07:51→21:15)
[2023-03-27] MEDS: INSULIN GLARGINE, HUMAN 1 UNIT/0.01 ML SQ SCH ×2 (07:51→21:27)
--- NOTE | 2023-03-27 13:03 | Internal Med Progress Note ---
SUBJECTIVE Subjective Patient information: Note initiated : 03/27/23 at 1:02 pm Service Date, if different from initiated Date: [] Patient: Tennille Castillo 77 y/o F admitted on 03/20/23. Chief Complaint: [] Interval history: Ms. Castillo is a 77 year old female with history of diabetes mellitus 2, frequent DKA/HHS, chronic tremors, insomnia presented with 4 to 5 days history of nausea and vomiting and generalized weakness. Patient reported she was feeling sick, had vomiting once a day without any hematemesis, have some lower abdominal pain and was unable to take her insulin secondary to nausea. Patient reports mild constipation. She also is mildly confused as she cannot recall her insulin regimen however able to answer most questions appropriately. Patient reports she is feeling cold and fatigued and very weak. She reports no fever. No chest pain, no palpitations. Denies any cough, sputum production. Reports no urinary symptoms of dysuria, frequency. No recent travels or sick contacts. On presentation patient with tachypnea respiratory rate 26, tachycardia 99 bpm, blood pressure stable, afebrile. Lab work with leukocytosis of 14,000, chronic anemia with hemoglobin 10.8. Severe metabolic acidosis on VBG with pH 7.04, PCO2 16, HCO3 4.9, lactic acid 2.2. Hyponatremia of 119, hyperkalemia 7.3, hypochloremia 94, creatinine 1.6 up from 0.5 consistent with acute kidney injury, CO2 5, anion gap 36, glucose 868, beta-hydroxybutyrate elevated at 13. Negative troponin. EKG showed sinus rhythm at 88 bpm, mildly hyperacute T wave changes in anterior leads and nonspecific ST-T wave changes. Patient was started on DKA protocol and admitted to ICU. 03/21. Patient remains on IV insulin drip, glucose was down to 60s and was given D50 with appropriate improvement in blood glucose. Feels better but remains fatigued and tired. No nausea or vomiting. Some back pain. Discussed results of abdominal CT scan, no acute finding. Leukocytosis remains. Hyponatremia resolved. Anion gap closed, patient is still acidotic. Beta-hydroxybutyrate down to 0.42 from 13 03/22. Patient is feeling improved she is eating and drinking. Blood glucose this morning was between 200 and 300. Her insulin dose has been adjusted. Nigel kocytosis has resolved. Hemoglobin low but stable. Electrolytes within normal range. Hyponatremia resolved. Acidosis nearly resolved. LFTs elevated slightly more than baseline. Patient unsure about going home versus SNF. 03/23. Reports eating more however still has some nausea but no vomiting, abdominal discomfort is minimal. No fever or chills, leukocytosis is absent. Potassium is low at 2.7 and will be aggressively replaced. Patient was with relative hypoglycemia this morning. 03/24. Patient has brittle diabetes, her morning glucose today is 88 and yesterday was 72. Her insulin regimen has been adjusted. Patient reports no symptoms of hypoglycemia. After receiving potassium supplementation hypokalemia has resolved and potassium is 4.0 this morning. She has chronic LFTs eleva tion, patient reports due to fatty liver. LFTs are improving. 03/25. No significant events overnight, vitals stable. Glycemic control stable. Stable morning labs, awaiting placement. 03/26. Vital stable overnight. Glycemic control satisfactory. Awaiting prior authorization for low intensity rehab. 03/27. No significant changes overnight. Awaiting placement. Physical exam Head: Atraumatic, normal inspection. Eyes: normal appearance, no scleral icterus. Neck: full ROM Respiratory: no respiratory distress. Cardiovascular: normal rate and rhythm, S1, S2. GI/Abdominal: soft, nontender, no guarding. Extremities: full range of motion, nontender. Neurological: CN II-XII intact, intact motor, intact sensation. Psychiatric: normal mood. Skin: warm, normal color Constitutional Vitals: Vital Signs Temp Pulse Resp BP Pulse Ox O2 Del Method 98.4 F 74 18 147/71 99 Room Air 03/27/23 12:00 03/27/23 12:00 03/27/23 12:00 03/27/23 12:00 03/27/23 12:00 03/27/23 12:00 Period Temp Pulse Resp BP Sys/Rosario Pulse Ox O2 Del Method O2 Flow Rate Last 24 Hr 96.9 F-98.6 F 68-79 14-20 117-147/57-80 95-99 Room Air-Room Air Intake and Output 03/27/23 03/27/23 03/27/23 03:59 11:59 19:59 Intake Total 300 400 Output Total 1400 Balance -1100 400 Intake & Output: Intake & Output 03/27/23 03/27/2323 03:59 11:59 19:59 Intake Total 300 400 Output Total 1400 Balance -1100 400 Intake: Oral 300 400 Output: Void Amount 1400 Other: Meal Peanut butter (X2), Andres crackers (2) Breakfast Percent of Meal Consumed 100% 100% Feeding Ability Independent Assist with Tray Set Up Urine Appearance Cloudy Urine Color Yellow OBJ DATA Labs 03/27/23 05:47 03/26/23 05:48 Labs: Abnormal Lab Results 03/27/23 03/26/23 03/26/23 05:47 05:48 05:48 RBC 3.56 L Hgb 10.4 L 10.6 L Hct 33.5 L 33.0 L RDW 14.6 H Plt Count 131 L Carbon Dioxide Anion Gap 7.0 L Glucose 176 H Calcium AST 46 H ALT 64 H Alkaline Phosphatase 126 H Total Protein 5.2 L Albumin 2.8 L 03/25/23 03/25/23 05:33 05:32 RBC Hgb 10.5 L Hct 32.5 L RDW Plt Count 110 L Carbon Dioxide 31 H Anion Gap 7.0 L Glucose 151 H Calcium 8.5 L AST 92 H ALT 87 H Alkaline Phosphatase 134 H Total Protein 5.1 L Albumin 2.9 L Meds: Medications Acetaminophen (Acetaminophen 325 Mg Tablet) 650 mg PO Q4-6HP PRN; Protocol PRN Reason: Per Pain Protocol/Fever > 101 Al Hydrox/Mg Hydrox/Simethicone (Mag Hydrox/Al Hydrox/Simeth 30 Ml Oral.Susp) 30 ml PO Q4-6HP PRN PRN Reason: Dyspepsia Albuterol Sulfate (Albuterol Sulfate 60 Puff Inhaler) 2 puff INH Q4-6HP PRN PRN Reason: cough, shortness of breath, wheezing Aspirin (Aspirin 81 Mg Tab.Chew) 81 mg PO DAILY [facility] Last Admin: 03/27/23 07:51 Dose: 81 mg Atorvastatin Calcium (Atorvastatin 40 Mg Tablet) 40 mg PO QDAY [facility] Last Admin: 03/27/23 07:51 Dose: 40 mg Dextrose (Dextrose 50% 50 Ml Vial) 0 ml IV UD PRN PRN Reason: Per Sliding Scale Diagnostic Test (Pha) (Accu-Chek 1 Each Strip) 1 each FS ACHS [facility] Last Admin: 03/27/23 12:12 Dose: 1 each Diphenhydramine HCl (Diphenhydramine 25 Mg Capsule) 50 mg PO QHS [facility] Last Admin: 03/26/23 21:54 Dose: 50 mg Gabapentin (Gabapentin 400 Mg Capsule) 400 mg PO QIDP PRN PRN Reason: Pain Glucose (Dextrose 31 Gm Oral.Susp) 15 gm PO PRN PRN PRN Reason: Hypoglycemia Hydromorphone HCl (Hydromorphone 0.5 Mg/0.5 Ml Syringe) 0.5 mg IV Q6H PRN; Protocol PRN Reason: Per Pain Protocol Hyoscyamine (Hyoscyamine Sulfate 0.125 Mg Tablet) 0.125 mg SL Q6HP PRN PRN Reason: muscle spasm Last Admin: 03/26/23 19:08 Dose: 0.125 mg Insulin Human Regular 50 unit/ (Sodium Chloride) 100.5 mls @ 2.662 mls/hr IV DUR [facility]; Protocol Last Titration: 03/22/23 12:10 Dose: Infused Insulin Glargine (Insulin Glargine, Human 1 Unit/0.01 Ml) 18 unit SQ BID [facility] Last Admin: 03/27/23 07:51 Dose: 18 units Insulin Human Lispro (Insulin Lispro 1 Unit/0.01 Ml Unit) 0 unit SQ ACHS [facility]; Protocol Last Admin: 03/27/23 12:16 Dose: 9 unit Levothyroxine Sodium (Levothyroxine 125 Mcg Tablet) 125 mcg PO QAMAC [facility] Last Admin: 03/27/23 07:51 Dose: 125 mcg Melatonin (Melatonin 3 Mg Tablet) 3 mg PO HSP PRN PRN Reason: sleep Last Admin: 03/26/23 21:54 Dose: 3 mg Ondansetron HCl (Ondansetron 4 Mg/2 Ml Vial) 4 mg IV Q4-6HP PRN; Protocol PRN Reason: Nausea And Vomiting Last Admin: 03/25/23 21:47 Dose: 4 mg Oxycodone HCl (Oxycodone Ir 5 Mg Tablet) 5 mg PO BIDP PRN; Protocol PRN Reason: breakthrough pain Last Admin: 03/23/23 09:37 Dose: 5 mg Lipase-Protease- Amylase [Zenpep] 40, 000-126,000-168,000 Cap 1 dose PO TIDCC [facility] Last Admin: 03/27/23 12:16 Dose: 1 dose Betamethasone Valerate 0.1 % Ointment 1 dose TOPICAL BIDP PRN PRN Reason: psoriosis Promethazine HCl (Promethazine 25 Mg/Ml Vial) 12.5 mg IV Q4-6HP PRN; Protocol PRN Reason: Nausea And Vomiting Propranolol HCl (Propranolol 10 Mg Tablet) 10 mg PO TID [facility] Last Admin: 03/27/23 07:51 Dose: 10 mg Senna (Sennosides 1 Tablet) 1 tab PO HSP PRN PRN Reason: Constipation Last Admin: 03/23/23 02:21 Dose: 1 tab Sodium Chloride (0.9 % Sodium Chloride 10 Ml Syringe) 10 ml IV Q8 [facility] Last Admin: 03/27/23 07:38 Dose: 10 ml Tramadol HCl (Tramadol 50 Mg Tablet) 50 mg PO Q8HP PRN PRN Reason: Pain Last Admin: 03/25/23 21:47 Dose: 50 mg Trazodone HCl (Trazodone Hcl 100 Mg Tablet) 100 mg PO HSP [facility] Last Admin: 03/26/23 21:54 Dose: 100 mg Vitamin D (Vitamin D3 25 Mcg Tablet) 100 mcg PO DAILY [facility] Last Admin: 03/27/23 07:51 Dose: 100 mcg ABG Interpretation ABG results: 03/20/23 03/21/23 17:27 07:10 ABG Methemoglobin 0.4 0.6 VBG pH 7.06 L* 7.40 VBG pCO2 23.4 L 31.7 L VBG pO2 65.6 H 140.4 H VBG HCO3 6.5 L* 19.0 L VBG Total CO2 7.2 L* 19.9 L VBG O2 Saturation 84.7 H 92.2 H VBG Base Excess -22 L -5 L A/P Narrative A/P Narrative: Assessment: 77-year-old female with a history of insulin-dependent type 2 di abetes mellitus and multiple medical comorbidities admitted for DKA which has resolved. The resident for DKA is likely medical noncompliance. The patient is currently awaiting placement. #Insulin-dependent type 2 diabetes mellitus #Resolved diabetic ketoacidosis #Resolved hyperkalemia #Resolved hypokalemia #Resolved hyponatremia #Resolved acute kidney injury #Coronary artery disease, stable #Chronic anemia #Chronic pancreatitis #Chronically elevated LFTs #Essential tremor #Hypothyroidism #Chronic pain on opioid #Generalized weakness #Medication noncompliance Plan -Awaiting placement for low intensity rehab. -Lantus 18 units twice daily. -Correction Humalog SSI high-dose. -Continue home albuterol, aspirin, atorvastatin, gabapentin, levothyroxine, oxycodone, Zenpep, propranolol, tramadol, trazodone. -PT and OT. -CODE STATUS: DNR/DNI. Time Spent With Patient Time: Total time spent is greater than 50% in coordination of care (as documented) at patient's floor/unit and/or counseling patient: QUALITY Stroke Symptom Onset Unknown: No
[2023-03-27] MEDS: traMADol 50 MG TABLET PO PRN ×2 (16:30→23:37)
[2023-03-27] MEDS: HYOSCYAMINE SULFATE 0.125 MG TABLET SL PRN (19:54)
[2023-03-27] MEDS: traZODone HCL 100 MG TABLET PO SCH (21:15)
[2023-03-27] MEDS: diphenhydrAMINE 25 MG CAPSULE PO SCH (21:15)
[2023-03-27] MEDS: MELATONIN 3 MG TABLET PO PRN (21:15)
[2023-03-28 06:19] LABS: Basophils # (Auto) 0.05 K/mcL (0.00-0.30); Basophils % (Auto) 0.8 % (0.0-2.0); Eosinophils # (Auto) 0.19 K/mcL (0.00-0.70); Eosinophils % (Auto) 2.9 % (0.0-7.0); Hemoglobin 10.1 g/dL (11.2-15.7); Lymphocytes # (Auto) 2.57 K/mcL (1.50-4.80); Lymphocytes % (Auto) 38.8 % (15.5-49.0); Mean Cell Volume 89.9 fL (80.0-100.0); Mean Corpuscular HGB Conc 31.6 g/dL (31.0-36.0); Mean Platelet Volume 11.1 fL (8.8-12.5); Monocytes # (Auto) 0.46 K/mcL (0.10-0.90); Monocytes % (Auto) 6.9 % (1.0-12.0); Neutrophils % (Auto) 50.1 % (38.0-78.0); Platelet Count 161 K/mcL (140-440); RBC 3.56 M/mcL (3.59-5.38); Red Cell Distribution Width 14.5 % (11.5-14.5); WBC 6.6 K/mcL (4.5-11.0)
[2023-03-28] MEDS: 0.9 % SODIUM CHLORIDE 10 ML SYRINGE IV SCH ×3 (07:57→21:15)
[2023-03-28] MEDS: INSULIN LISPRO 1 UNIT/0.01 ML UNIT SQ SCH ×4 (08:11→21:17)
[2023-03-28] MEDS: LEVOTHYROXINE 125 MCG TABLET PO SCH (08:11)
[2023-03-28] MEDS: LIPASE PROTEASE AMYLASE PO SCH ×3 (08:16→18:02)
[2023-03-28] MEDS: ASPIRIN 81 MG TAB.CHEW PO SCH (09:04)
[2023-03-28] MEDS: PROPRANOLOL 10 MG TABLET PO SCH ×3 (09:05→21:16)
[2023-03-28] MEDS: VITAMIN D3 25 MCG TABLET PO SCH (09:05)
[2023-03-28] MEDS: INSULIN GLARGINE, HUMAN 1 UNIT/0.01 ML SQ SCH ×2 (09:05→21:16)
[2023-03-28] MEDS: ATORVASTATIN 40 MG TABLET PO SCH (09:05)
[2023-03-28] MEDS: traMADol 50 MG TABLET PO PRN ×2 (09:08→21:15)
--- NOTE | 2023-03-28 10:06 | Internal Med Progress Note ---
SUBJECTIVE Subjective Patient information: Note initiated : 03/28/23 at 10:05 am Service Date, if different from initiated Date: [] Patient: Tennille Castillo 77 y/o F admitted on 03/20/23. Chief Complaint: [] Interval history: Ms. Castillo is a 77 year old female with history of diabetes mellitus 2, frequent DKA/HHS, chronic tremors, insomnia presented with 4 to 5 days history of nausea and vomiting and generalized weakness. Patient reported she was feeling sick, had vomiting once a day without any hematemesis, have some lower abdominal pain and was unable to take her insulin secondary to nausea. Patient reports mild constipation. She also is mildly confused as she cannot recall her insulin regimen however able to answer most questions appropriately. Patient reports she is feeling cold and fatigued and very weak. She reports no fever. No chest pain, no palpitations. Denies any cough, sputum production. Reports no urinary symptoms of dysuria, frequency. No recent travels or sick contacts. On presentation patient with tachypnea respiratory rate 26, tachycardia 99 bpm, blood pressure stable, afebrile. Lab work with leukocytosis of 14,000, chronic anemia with hemoglobin 10.8. Severe metabolic acidosis on VBG with pH 7.04, PCO2 16, HCO3 4.9, lactic acid 2.2. Hyponatremia of 119, hyperkalemia 7.3, hypochloremia 94, creatinine 1.6 up from 0.5 consistent with acute kidney injury, CO2 5, anion gap 36, glucose 868, beta-hydroxybutyrate elevated at 13. Negative troponin. EKG showed sinus rhythm at 88 bpm, mildly hyperacute T wave changes in anterior leads and nonspecific ST-T wave changes. Patient was started on DKA protocol and admitted to ICU. 03/21. Patient remains on IV insulin drip, glucose was down to 60s and was given D50 with appropriate improvement in blood glucose. Feels better but remains fatigued and tired. No nausea or vomiting. Some back pain. Discussed results of abdominal CT scan, no acute finding. Leukocytosis remains. Hyponatremia resolved. Anion gap closed, patient is still acidotic. Beta-hydroxybutyrate down to 0.42 from 13 03/22. Patient is feeling improved she is eating and drinking. Blood glucose this morning was between 200 and 300. Her insulin dose has been adjusted. Le ukocytosis has resolved. Hemoglobin low but stable. Electrolytes within normal range. Hyponatremia resolved. Acidosis nearly resolved. LFTs elevated slightly more than baseline. Patient unsure about going home versus SNF. 03/23. Reports eating more however still has some nausea but no vomiting, abdominal discomfort is minimal. No fever or chills, leukocytosis is absent. Potassium is low at 2.7 and will be aggressively replaced. Patient was with relative hypoglycemia this morning. 03/24. Patient has brittle diabetes, her morning glucose today is 88 and yesterday was 72. Her insulin regimen has been adjusted. Patient reports no symptoms of hypoglycemia. After receiving potassium supplementation hypokalemia has resolved and potassium is 4.0 this morning. She has chronic LFTs elev ation, patient reports due to fatty liver. LFTs are improving. 03/25. No significant events overnight, vitals stable. Glycemic control stable. Stable morning labs, awaiting placement. 03/26. Vital stable overnight. Glycemic control satisfactory. Awaiting prior authorization for low intensity rehab. 03/27. No significant changes overnight. Awaiting placement. 03/28. Vitals stable, stable glycemic control, the patient has a good appetite. Awaiting placement. Physical exam Head: Atraumatic, normal inspection. Eyes: normal appearance, no scleral icterus. Neck: full ROM Respiratory: no respiratory distress. Cardiovascular: normal rate and rhythm, S1, S2. GI/Abdominal: soft, nontender, no guarding. Extremities: full range of motion, nontender. Neurological: CN II-XII intact, intact motor, intact sensation. Psychiatric: normal mood. Skin: warm, normal color Constitutional Vitals: Vital Signs Temp Pulse Resp BP Pulse Ox O2 Del Method 97.9 F 66 16 115/59 98 Room Air 03/28/23 07:55 03/28/23 07:55 03/28/23 07:11 03/28/23 07:55 03/28/23 07:55 03/28/23 07:55 Period Temp Pulse Resp BP Sys/Rosario Pulse Ox O2 Del Method O2 Flow Rate Last 24 Hr 97.2 F-99.0 F 66-78 12-18 109-147/51-73 96-99 Room Air-Room Air Intake and Output 03/27/23 03/28/23 03/28/23 19:59 03:59 11:59 Intake Total 800 520 Output Total 1000 800 Balance -200 -800 520 Weight 68.901 kg Intake & Output: Intake & Output 03/27/23 03/28/23 03/28/23 19:59 03:59 11:59 Intake Total 800 520 Output Total 1000 800 Balance -200 -800 520 Weight 68.901 kg Intake: Oral 800 520 Output: Void Amount 1000 800 Other: Meal Lunch Breakfast Percent of Meal Consumed 100% 100% Feeding Ability Independent Urine Appearance Cloudy Urine Color Yellow # Voids 1 OBJ DATA Labs 03/28/23 05:23 03/26/23 05:48 Labs: Abnormal Lab Results 03/28/23 03/27/23 03/26/23 05:23 05:47 05:48 RBC 3.56 L 3.56 L Hgb 10.1 L 10.4 L Hct 32.0 L 33.5 L RDW 14.6 H Plt Count Anion Gap 7.0 L Glucose 176 H AST 46 H ALT 64 H Alkaline Phosphatase 126 H Total Protein 5.2 L Albumin 2.8 L 03/26/23 05:48 RBC Hgb 10.6 L Hct 33.0 L RDW Plt Count 131 L Anion Gap Glucose AST ALT Alkaline Phosphatase Total Protein Albumin Meds: Medications Acetaminophen (Acetaminophen 325 Mg Tablet) 650 mg PO Q4-6HP PRN; Protocol PRN Reason: Per Pain Protocol/Fever > 101 Al Hydrox/Mg Hydrox/Simethicone (Mag Hydrox/Al Hydrox/Simeth 30 Ml Oral.Susp) 30 ml PO Q4-6HP PRN PRN Reason: Dyspepsia Albuterol Sulfate (Albuterol Sulfate 60 Puff Inhaler) 2 puff INH Q4-6HP PRN PRN Reason: cough, shortness of breath, wheezing Aspirin (Aspirin 81 Mg Tab.Chew) 81 mg PO DAILY [facility] Last Admin: 03/28/23 09:04 Dose: 81 mg Atorvastatin Calcium (Atorvastatin 40 Mg Tablet) 40 mg PO QDAY [facility] Last Admin: 03/28/23 09:05 Dose: 40 mg Dextrose (Dextrose 50% 50 Ml Vial) 0 ml IV UD PRN PRN Reason: Per Sliding Scale Diagnostic Test (Pha) (Accu-Chek 1 Each Strip) 1 each FS ACHS [facility] Last Admin: 03/28/23 08:10 Dose: 1 each Diphenhydramine HCl (Diphenhydramine 25 Mg Capsule) 50 mg PO QHS PEG Last Admin: 03/27/23 21:15 Dose: 50 mg Gabapentin (Gabapentin 400 Mg Capsule) 400 mg PO QIDP PRN PRN Reason: Pain Last Admin: 03/28/23 00:37 Dose: 400 mg Glucose (Dextrose 31 Gm Oral.Susp) 15 gm PO PRN PRN PRN Reason: Hypoglycemia Hydromorphone HCl (Hydromorphone 0.5 Mg/0.5 Ml Syringe) 0.5 mg IV Q6H PRN; Protocol PRN Reason: Per Pain Protocol Hyoscyamine (Hyoscyamine Sulfate 0.125 Mg Tablet) 0.125 mg SL Q6HP PRN PRN Reason: muscle spasm Last Admin: 03/27/23 19:54 Dose: 0.125 mg Insulin Human Regular 50 unit/ (Sodium Chloride) 100.5 mls @ 2.662 mls/hr IV DUR [facility]; Protocol Last Titration: 03/22/23 12:10 Dose: Infused Insulin Glargine (Insulin Glargine, Human 1 Unit/0.01 Ml) 18 unit SQ BID [facility] Last Admin: 03/28/23 09:05 Dose: 18 units Insulin Human Lispro (Insulin Lispro 1 Unit/0.01 Ml Unit) 0 unit SQ ACHS [facility]; Protocol Last Admin: 03/28/23 08:11 Dose: 3 unit Levothyroxine Sodium (Levothyroxine 125 Mcg Tablet) 125 mcg PO QAMAC [facility] Last Admin: 03/28/23 08:11 Dose: 125 mcg Melatonin (Melatonin 3 Mg Tablet) 3 mg PO HSP PRN PRN Reason: sleep Last Admin: 03/27/23 21:15 Dose: 3 mg Ondansetron HCl (Ondansetron 4 Mg/2 Ml Vial) 4 mg IV Q4-6HP PRN; Protocol PRN Reason: Nausea And Vomiting Last Admin: 03/25/23 21:47 Dose: 4 mg Oxycodone HCl (Oxycodone Ir 5 Mg Tablet) 5 mg PO BIDP PRN; Protocol PRN Reason: breakthrough pain Last Admin: 03/23/23 09:37 Dose: 5 mg Lipase-Protease- Amylase [Zenpep] 40, 000-126,000-168,000 Cap 1 dose PO TIDCC [facility] Last Admin: 03/28/23 08:16 Dose: 1 dose Betamethasone Valerate 0.1 % Ointment 1 dose TOPICAL BIDP PRN PRN Reason: psoriosis Promethazine HCl (Promethazine 25 Mg/Ml Vial) 12.5 mg IV Q4-6HP PRN; Protocol PRN Reason: Nausea And Vomiting Propranolol HCl (Propranolol 10 Mg Tablet) 10 mg PO TID [facility] Last Admin: 03/28/23 09:05 Dose: 10 mg Senna (Sennosides 1 Tablet) 1 tab PO HSP PRN PRN Reason: Constipation Last Admin: 03/23/23 02:21 Dose: 1 tab Sodium Chloride (0.9 % Sodium Chloride 10 Ml Syringe) 10 ml IV Q8 [facility] Last Admin: 03/28/23 07:57 Dose: 10 ml Tramadol HCl (Tramadol 50 Mg Tablet) 50 mg PO Q8HP PRN PRN Reason: Pain Last Admin: 03/28/23 09:08 Dose: 50 mg Trazodone HCl (Trazodone Hcl 100 Mg Tablet) 100 mg PO HSP [facility] Last Admin: 03/27/23 21:15 Dose: 100 mg Vitamin D (Vitamin D3 25 Mcg Tablet) 100 mcg PO DAILY [facility] Last Admin: 03/28/23 09:05 Dose: 100 mcg ABG Interpretation ABG results: 03/20/23 03/21/23 17:27 07:10 ABG Methemoglobin 0.4 0.6 VBG pH 7.06 L* 7.40 VBG pCO2 23.4 L 31.7 L VBG pO2 65.6 H 140.4 H VBG HCO3 6.5 L* 19.0 L VBG Total CO2 7.2 L* 19.9 L VBG O2 Saturation 84.7 H 92.2 H VBG Base Excess -22 L -5 L A/P Narrative A/P Narrative: Assessment: 77-year-old female with a history of insulin-dependent type 2 diabetes mellitus and multiple medical comorbidities admitted for DKA which has resolved. The resident for DKA is likely medical noncompliance. The patient is currently awaiting placement. #Insulin-dependent type 2 diabetes mellitus #Resolved diabetic ketoacidosis #Resolved hyperkalemia #Resolved hypokalemia #Resolved hyponatremia #Resolved acute kidney injury #Coronary artery disease, stable #Chronic anemia #Chronic pancreatitis #Chronically elevated LFTs #Essential tremor #Hypothyroidism #Chronic pain on opioid #Generalized weakness #Medication noncompliance Plan -Awaiting placement for low intensity rehab. -Lantus 18 units twice daily. -Correction Humalog SSI high-dose. -Continue home albuterol, aspirin, atorvastatin, gabapentin, levothyroxine, oxycodone, Zenpep, propranolol, tramadol, trazodone. -PT and OT. -CODE STATUS: DNR/DNI. Time Spent With Patient Time: Total time spent is greater than 50% in coordination of care (as documented) at patient's floor/unit and/or counseling patient: QUALITY Stroke Symptom Onset Unknown: No
[2023-03-28] MEDS: diphenhydrAMINE 25 MG CAPSULE PO SCH (21:15)
[2023-03-28] MEDS: MELATONIN 3 MG TABLET PO PRN (21:15)
[2023-03-28] MEDS: traZODone HCL 100 MG TABLET PO SCH (21:16)
[2023-03-29] MEDS: 0.9 % SODIUM CHLORIDE 10 ML SYRINGE IV SCH ×2 (05:27→17:23)
[2023-03-29 06:29] LABS: Basophils # (Auto) 0.06 K/mcL (0.00-0.30); Basophils % (Auto) 1.1 % (0.0-2.0); Eosinophils # (Auto) 0.24 K/mcL (0.00-0.70); Eosinophils % (Auto) 4.3 % (0.0-7.0); Hematocrit 30.8 % (34.1-44.9); Hemoglobin 9.8 g/dL (11.2-15.7); Lymphocytes # (Auto) 2.19 K/mcL (1.50-4.80); Mean Cell Volume 90.6 fL (80.0-100.0); Mean Corpuscular HGB Conc 31.8 g/dL (31.0-36.0); Monocytes # (Auto) 0.54 K/mcL (0.10-0.90); Monocytes % (Auto) 9.6 % (1.0-12.0); Neutrophils % (Auto) 45.3 % (38.0-78.0); Platelet Count 160 K/mcL (140-440); Red Cell Distribution Width 14.5 % (11.5-14.5); WBC 5.6 K/mcL (4.5-11.0)
[2023-03-29 07:34] LABS: Blood Urea Nitrogen 21 mg/dL (8-23); Calcium 8.4 mg/dL (8.6-10.4); Carbon Dioxide 26 mmol/L (22-30); Chloride 106 mmol/L (96-108); Glomerular Filtration Rate 88; Glucose 184 mg/dL (70-105)
[2023-03-29] MEDS: LEVOTHYROXINE 125 MCG TABLET PO SCH (07:38)
[2023-03-29] MEDS: INSULIN LISPRO 1 UNIT/0.01 ML UNIT SQ SCH ×3 (07:43→17:26)
--- NOTE | 2023-03-29 09:05 | Internal Med Progress Note ---
SUBJECTIVE Subjective Patient information: Note initiated : 03/29/23 at 9:04 am Service Date, if different from initiated Date: [] Patient: Tennille Castillo 77 y/o F admitted on 03/20/23. Chief Complaint: [] Interval history: Ms. Castillo is a 77 year old female with history of diabetes mellitus 2, frequent DKA/HHS, chronic tremors, insomnia presented with 4 to 5 days history of nausea and vomiting and generalized weakness. Patient reported she was feeling sick, had vomiting once a day without any hematemesis, have some lower abdominal pain and was unable to take her insulin secondary to nausea. Patient reports mild constipation. She also is mildly confused as she cannot recall her insulin regimen however able to answer most questions appropriately. Patient reports she is feeling cold and fatigued and very weak. She reports no fever. No chest pain, no palpitations. Denies any cough, sputum production. Reports no urinary symptoms of dysuria, frequency. No recent travels or sick contacts. On presentation patient with tachypnea respiratory rate 26, tachycardia 99 bpm, blood pressure stable, afebrile. Lab work with leukocytosis of 14,000, chronic anemia with hemoglobin 10.8. Severe metabolic acidosis on VBG with pH 7.04, PCO2 16, HCO3 4.9, lactic acid 2.2. Hyponatremia of 119, hyperkalemia 7.3, hypochloremia 94, creatinine 1.6 up from 0.5 consistent with acute kidney injury, CO2 5, anion gap 36, glucose 868, beta-hydroxybutyrate elevated at 13. Negative troponin. EKG showed sinus rhythm at 88 bpm, mildly hyperacute T wave changes in anterior leads and nonspecific ST-T wave changes. Patient was started on DKA protocol and admitted to ICU. 03/21. Patient remains on IV insulin drip, glucose was down to 60s and was given D50 with appropriate improvement in blood glucose. Feels better but remains fatigued and tired. No nausea or vomiting. Some back pain. Discussed results of abdominal CT scan, no acute finding. Leukocytosis remains. Hyponatremia resolved. Anion gap closed, patient is still acidotic. Beta-hydroxybutyrate down to 0.42 from 13 03/22. Patient is feeling improved she is eating and drinking. Blood glucose this morning was between 200 and 300. Her insulin dose has been adjusted. Nigel kocytosis has resolved. Hemoglobin low but stable. Electrolytes within normal range. Hyponatremia resolved. Acidosis nearly resolved. LFTs elevated slightly more than baseline. Patient unsure about going home versus SNF. 03/23. Reports eating more however still has some nausea but no vomiting, abdominal discomfort is minimal. No fever or chills, leukocytosis is absent. Potassium is low at 2.7 and will be aggressively replaced. Patient was with relative hypoglycemia this morning. 03/24. Patient has brittle diabetes, her morning glucose today is 88 and yesterday was 72. Her insulin regimen has been adjusted. Patient reports no symptoms of hypoglycemia. After receiving potassium supplementation hypokalemia has resolved and potassium is 4.0 this morning. She has chronic LFTs eleva tion, patient reports due to fatty liver. LFTs are improving. 03/25. No significant events overnight, vitals stable. Glycemic control stable. Stable morning labs, awaiting placement. 03/26. Vital stable overnight. Glycemic control satisfactory. Awaiting prior authorization for low intensity rehab. 03/27. No significant changes overnight. Awaiting placement. 03/28. Vitals stable, stable glycemic control, the patient has a good appetite. Awaiting placement. 03/29. Patient had a couple high-grade temperatures overnight, no fevers. Vitals otherwise normal. No leukocytosis this morning. The patient is resting comfortably today. Awaiting placement. Physical exam Head: Atraumatic, normal inspection. Eyes: normal appearance, no scleral icterus. Neck: full ROM Respiratory: no respiratory distress. Cardiovascular: normal rate and rhythm, S1, S2. GI/Abdominal: soft, nontender, no guarding. Extremities: full range of motion, nontender. Neurological: CN II-XII intact, intact motor, intact sensation. Psychiatric: normal mood. Skin: warm, normal color Constitutional Vitals: Vital Signs Temp Pulse Resp BP Pulse Ox O2 Del Method 97.9 F 67 16 133/68 99 Room Air 03/29/23 07:43 03/29/23 07:43 03/29/23 07:43 03/29/23 07:43 03/29/23 07:43 03/29/23 08:00 Period Temp Pulse Resp BP Sys/Rosario Pulse Ox O2 Del Method O2 Flow Rate Last 24 Hr 97.8 F-99.3 F 67-119 12-16 110-133/55-99 95-99 Room Air-Room Air Intake and Output 03/28/23 03/29/23 03/29/23 19:59 03:59 11:59 Intake Total 540 300 Output Total 900 500 Balance -360 -200 Weight 69.717 kg Intake & Output: Intake & Output 03/28/23 03/29/23 03/29/23 19:59 03:59 11:59 Intake Total 540 300 Output Total 900 500 Balance -360 -200 Weight 69.717 kg Intake: Oral 540 300 Output: Void Amount 900 500 Other: Meal Dinner 2pk grahm crackers, & 3x peanutbutter cups Percent of Meal Consumed 100% 100% Feeding Ability Independent Independent Urine Appearance Clear Urine Color Yellow Yellow # of times incontinent of 1 Bowels OBJ DATA Labs 03/29/23 05:32 03/29/23 05:32 Labs: Abnormal Lab Results 03/29/23 03/29/23 03/28/23 05:32 05:32 05:23 RBC 3.40 L 3.56 L Hgb 9.8 L 10.1 L Hct 30.8 L 32.0 L RDW Immature Gran % (Auto) 0.7 H Anion Gap 7.0 L Glucose 184 H Calcium 8.4 L 03/27/23 05:47 RBC 3.56 L Hgb 10.4 L Hct 33.5 L RDW 14.6 H Immature Gran % (Auto) Anion Gap Glucose Calcium Meds: Medications Acetaminophen (Acetaminophen 325 Mg Tablet) 650 mg PO Q4-6HP PRN; Protocol PRN Reason: Per Pain Protocol/Fever > 101 Al Hydrox/Mg Hydrox/Simethicone (Mag Hydrox/Al Hydrox/Simeth 30 Ml Oral.Susp) 30 ml PO Q4-6HP PRN PRN Reason: Dyspepsia Albuterol Sulfate (Albuterol Sulfate 60 Puff Inhaler) 2 puff INH Q4-6HP PRN PRN Reason: cough, shortness of breath, wheezing Aspirin (Aspirin 81 Mg Tab.Chew) 81 mg PO DAILY [facility] Last Admin: 03/28/23 09:04 Dose: 81 mg Atorvastatin Calcium (Atorvastatin 40 Mg Tablet) 40 mg PO QDAY PEG Last Admin: 03/28/23 09:05 Dose: 40 mg Dextrose (Dextrose 50% 50 Ml Vial) 0 ml IV UD PRN PRN Reason: Per Sliding Scale Diagnostic Test (Pha) (Accu-Chek 1 Each Strip) 1 each FS ACHS [facility] Last Admin: 03/29/23 07:37 Dose: 1 each Diphenhydramine HCl (Diphenhydramine 25 Mg Capsule) 50 mg PO QHS [facility] Last Admin: 03/28/23 21:15 Dose: 50 mg Gabapentin (Gabapentin 400 Mg Capsule) 400 mg PO QIDP PRN PRN Reason: Pain Last Admin: 03/28/23 00:37 Dose: 400 mg Glucose (Dextrose 31 Gm Oral.Susp) 15 gm PO PRN PRN PRN Reason: Hypoglycemia Hyoscyamine (Hyoscyamine Sulfate 0.125 Mg Tablet) 0.125 mg SL Q6HP PRN PRN Reason: muscle spasm Last Admin: 03/27/23 19:54 Dose: 0.125 mg Insulin Glargine (Insulin Glargine, Human 1 Unit/0.01 Ml) 18 unit SQ BID [facility] Last Admin: 03/28/23 21:16 Dose: 18 units Insulin Human Lispro (Insulin Lispro 1 Unit/0.01 Ml Unit) 0 unit SQ [facility]; Protocol Last Admin: 03/29/23 07:43 Dose: 6 unit Levothyroxine Sodium (Levothyroxine 125 Mcg Tablet) 125 mcg PO QAMAC [facility] Last Admin: 03/29/23 07:38 Dose: 125 mcg Melatonin (Melatonin 3 Mg Tablet) 3 mg PO HSP PRN PRN Reason: sleep Last Admin: 03/28/23 21:15 Dose: 3 mg Ondansetron HCl (Ondansetron 4 Mg/2 Ml Vial) 4 mg IV Q4-6HP PRN; Protocol PRN Reason: Nausea And Vomiting Last Admin: 03/25/23 21:47 Dose: 4 mg Oxycodone HCl (Oxycodone Ir 5 Mg Tablet) 5 mg PO BIDP PRN; Protocol PRN Reason: breakthrough pain Last Admin: 03/23/23 09:37 Dose: 5 mg Lipase-Protease- Amylase [Zenpep] 40, 000-126,000-168,000 Cap 1 dose PO TIDCC [facility] Last Admin: 03/28/23 18:02 Dose: 1 dose Betamethasone Valerate 0.1 % Ointment 1 dose TOPICAL BIDP PRN PRN Reason: psoriosis Promethazine HCl (Promethazine 25 Mg/Ml Vial) 12.5 mg IV Q4-6HP PRN; Protocol PRN Reason: Nausea And Vomiting Propranolol HCl (Propranolol 10 Mg Tablet) 10 mg PO TID [facility] Last Admin: 03/28/23 21:16 Dose: 10 mg Senna (Sennosides 1 Tablet) 1 tab PO HSP PRN PRN Reason: Constipation Last Admin: 03/23/23 02:21 Dose: 1 tab Sodium Chloride (0.9 % Sodium Chloride 10 Ml Syringe) 10 ml IV Q8 [facility] Last Admin: 03/29/23 05:27 Dose: 10 ml Tramadol HCl (Tramadol 50 Mg Tablet) 50 mg PO Q8HP PRN PRN Reason: Pain Last Admin: 03/28/23 21:15 Dose: 50 mg Trazodone HCl (Trazodone Hcl 100 Mg Tablet) 100 mg PO HSP [facility] Last Admin: 03/28/23 21:16 Dose: 100 mg Vitamin D (Vitamin D3 25 Mcg Tablet) 100 mcg PO DAILY [facility] Last Admin: 03/28/23 09:05 Dose: 100 mcg ABG Interpretation ABG results: 03/20/23 03/21/23 17:27 07:10 ABG Methemoglobin 0.4 0.6 VBG pH 7.06 L* 7.40 VBG pCO2 23.4 L 31.7 L VBG pO2 65.6 H 140.4 H VBG HCO3 6.5 L* 19.0 L VBG Total CO2 7.2 L* 19.9 L VBG O2 Saturation 84.7 H 92.2 H VBG Base Excess -22 L -5 L A/P Narrative A/P Narrative: Assessment: 77-year-old female with a history of insulin-dependent type 2 diabe concepcion mellitus and multiple medical comorbidities admitted for DKA likely secondary to medication noncompliance. DKA has resolved. The patient is currently awaiting placement. #Insulin-dependent type 2 diabetes mellitus #Resolved diabetic ketoacidosis #Resolved hyperkalemia #Resolved hypokalemia #Resolved hyponatremia #Resolved acute kidney injury #Coronary artery disease, stable #Chronic anemia #Chronic pancreatitis #Chronically elevated LFTs #Essential tremor #Hypothyroidism #Chronic pain on opioid #Generalized weakness #Medication noncompliance Plan -Awaiting placement for low intensity rehab. -Lantus 18 units twice daily. -Correction Humalog SSI high-dose. -Continue home albuterol, aspirin, atorvastatin, gabapentin, levothyroxine, oxycodone, Zenpep, propranolol, tramadol, trazodone. -PT and OT. -CODE STATUS: DNR/DNI. Time Spent With Patient Time: Total time spent is greater than 50% in coordination of care (as documented) at patient's floor/unit and/or counseling patient: QUALITY Stroke Symptom Onset Unknown: No
[2023-03-29] MEDS: ASPIRIN 81 MG TAB.CHEW PO SCH (09:30)
[2023-03-29] MEDS: ATORVASTATIN 40 MG TABLET PO SCH (09:30)
[2023-03-29] MEDS: VITAMIN D3 25 MCG TABLET PO SCH (09:30)
[2023-03-29] MEDS: PROPRANOLOL 10 MG TABLET PO SCH ×2 (09:30→15:29)
[2023-03-29] MEDS: LIPASE PROTEASE AMYLASE PO SCH ×3 (09:31→17:24)
[2023-03-29] MEDS: INSULIN GLARGINE, HUMAN 1 UNIT/0.01 ML SQ SCH (09:31)
[2023-03-29] MEDS: HYOSCYAMINE SULFATE 0.125 MG TABLET SL PRN (11:11)
--- NOTE | 2023-03-29 13:28 | Internal Med Progress Note ---
SUBJECTIVE Subjective Patient information: Note initiated : 03/29/23 at 1:24 pm Service Date, if different from initiated Date: [] Patient: Tennille Castillo 77 y/o F admitted on 03/20/23. Chief Complaint: [] Interval history: Ms. Castillo is a 77 year old female with history of diabetes mellitus 2, frequent DKA/HHS, chronic tremors, insomnia presented with 4 to 5 days history of nausea and vomiting and generalized weakness. Patient reported she was feeling sick, had vomiting once a day without any hematemesis, have some lower abdominal pain and was unable to take her insulin secondary to nausea. Patient reports mild constipation. She also is mildly confused as she cannot recall her insulin regimen however able to answer most questions appropriately. Patient reports she is feeling cold and fatigued and very weak. She reports no fever. No chest pain, no palpitations. Denies any cough, sputum production. Reports no urinary symptoms of dysuria, frequency. No recent travels or sick contacts. On presentation patient with tachypnea respiratory rate 26, tachycardia 99 bpm, blood pressure stable, afebrile. Lab work with leukocytosis of 14,000, chronic anemia with hemoglobin 10.8. Severe metabolic acidosis on VBG with pH 7.04, PCO2 16, HCO3 4.9, lactic acid 2.2. Hyponatremia of 119, hyperkalemia 7.3, hypochloremia 94, creatinine 1.6 up from 0.5 consistent with acute kidney injury, CO2 5, anion gap 36, glucose 868, beta-hydroxybutyrate elevated at 13. Negative troponin. EKG showed sinus rhythm at 88 bpm, mildly hyperacute T wave changes in anterior leads and nonspecific ST-T wave changes. Patient was started on DKA protocol and admitted to ICU. 03/21. Patient remains on IV insulin drip, glucose was down to 60s and was given D50 with appropriate improvement in blood glucose. Feels better but remains fatigued and tired. No nausea or vomiting. Some back pain. Discussed results of abdominal CT scan, no acute finding. Leukocytosis remains. Hyponatremia resolved. Anion gap closed, patient is still acidotic. Beta-hydroxybutyrate down to 0.42 from 13 03/22. Patient is feeling improved she is eating and drinking. Blood glucose this morning was between 200 and 300. Her insulin dose has been adjusted. Nigel kocytosis has resolved. Hemoglobin low but stable. Electrolytes within normal range. Hyponatremia resolved. Acidosis nearly resolved. LFTs elevated slightly more than baseline. Patient unsure about going home versus SNF. 03/23. Reports eating more however still has some nausea but no vomiting, abdominal discomfort is minimal. No fever or chills, leukocytosis is absent. Potassium is low at 2.7 and will be aggressively replaced. Patient was with relative hypoglycemia this morning. 03/24. Patient has brittle diabetes, her morning glucose today is 88 and yesterday was 72. Her insulin regimen has been adjusted. Patient reports no symptoms of hypoglycemia. After receiving potassium supplementation hypokalemia has resolved and potassium is 4.0 this morning. She has chronic LFTs eleva tion, patient reports due to fatty liver. LFTs are improving. 03/25. No significant events overnight, vitals stable. Glycemic control stable. Stable morning labs, awaiting placement. 03/26. Vital stable overnight. Glycemic control satisfactory. Awaiting prior authorization for low intensity rehab. 03/27. No significant changes overnight. Awaiting placement. 03/28. Vitals stable, stable glycemic control, the patient has a good appetite. Awaiting placement. 03/29. Patient had a couple high-grade temperatures overnight, no fevers. Vitals otherwise normal. No leukocytosis this morning. The patient is resting comfortably today. Awaiting placement. 03/30 Review of Systems: Pertinent positives as above. Denies fever/chills/nausea/vomiting/chest or abdominal pain/cough/dyspnea/diarrhea. PHYSICAL EXAM General: Awake, No acute Distress Eyes/N/T: EOMI, no scleral icterus, Head/Neck: neck supple, full ROM, CV: RRR, 2/6SM, Pulm: Clear b/l, no wheezing/rhonchi/rales, no respiratory distress Abd: soft, nontender, +BS x4 Ext: no clubbing/cyanosis/edema, nontender Neuro: alert, no focal deficits, moves all extremities, , sensations intact b/l upper/lower Psychiatric: Skin: warm/dry, normal color Constitutional Vitals: Vital Signs Temp Pulse Resp BP Pulse Ox O2 Del Method 98.4 F 71 16 127/63 100 Room Air 03/29/23 11:29 03/29/23 11:29 03/29/23 07:43 03/29/23 11:29 03/29/23 11:29 03/29/23 08:00 Period Temp Pulse Resp BP Sys/Rosario Pulse Ox O2 Del Method O2 Flow Rate Last 24 Hr 97.9 F-99.3 F 67-80 12-16 110-133/55-68 95-100 Room Air-Room Air Intake and Output 03/29/23 03/29/23 03/29/23 03:59 11:59 19:59 Intake Total 300 Output Total 500 Balance -200 Weight 69.717 kg Intake & Output: Intake & Output 03/29/23 03/29/23 03/29/23 03:59 11:59 19:59 Intake Total 300 Output Total 500 Balance -200 Weight 69.717 kg Intake: Oral 300 Output: Void Amount 500 Other: Meal 2pk grahm crackers, & 3x peanutbutter cups Percent of Meal Consumed 100% Feeding Ability Independent Urine Appearance Clear Urine Color Yellow OBJ DATA Labs 03/29/23 05:32 03/29/23 05:32 Labs: Abnormal Lab Results 03/29/23 03/29/23 03/28/23 05:32 05:32 05:23 RBC 3.40 L 3.56 L Hgb 9.8 L 10.1 L Hct 30.8 L 32.0 L RDW Immature Gran % (Auto) 0.7 H Anion Gap 7.0 L Glucose 184 H Calcium 8.4 L 03/27/23 05:47 RBC 3.56 L Hgb 10.4 L Hct 33.5 L RDW 14.6 H Immature Gran % (Auto) Anion Gap Glucose Calcium Meds: Medications Acetaminophen (Acetaminophen 325 Mg Tablet) 650 mg PO Q4-6HP PRN; Protocol PRN Reason: Per Pain Protocol/Fever > 101 Al Hydrox/Mg Hydrox/Simethicone (Mag Hydrox/Al Hydrox/Simeth 30 Ml Oral.Susp) 30 ml PO Q4-6HP PRN PRN Reason: Dyspepsia Albuterol Sulfate (Albuterol Sulfate 60 Puff Inhaler) 2 puff INH Q4-6HP PRN PRN Reason: cough, shortness of breath, wheezing Aspirin (Aspirin 81 Mg Tab.Chew) 81 mg PO DAILY PEG Last Admin: 03/29/23 09:30 Dose: 81 mg Atorvastatin Calcium (Atorvastatin 40 Mg Tablet) 40 mg PO QDAY PEG Last Admin: 03/29/23 09:30 Dose: 40 mg Dextrose (Dextrose 50% 50 Ml Vial) 0 ml IV UD PRN PRN Reason: Per Sliding Scale Diagnostic Test (Pha) (Accu-Chek 1 Each Strip) 1 each FS ACHS [facility] Last Admin: 03/29/23 11:14 Dose: 1 each Diphenhydramine HCl (Diphenhydramine 25 Mg Capsule) 50 mg PO QHS [facility] Last Admin: 03/28/23 21:15 Dose: 50 mg Enoxaparin Sodium (Enoxaparin 40 Mg/0.4 Ml Syringe) 40 mg SQ DAILY [facility] Gabapentin (Gabapentin 400 Mg Capsule) 400 mg PO QIDP PRN PRN Reason: Pain Last Admin: 03/28/23 00:37 Dose: 400 mg Glucose (Dextrose 31 Gm Oral.Susp) 15 gm PO PRN PRN PRN Reason: Hypoglycemia Hyoscyamine (Hyoscyamine Sulfate 0.125 Mg Tablet) 0.125 mg SL Q6HP PRN PRN Reason: muscle spasm Last Admin: 03/29/23 11:11 Dose: 0.125 mg Insulin Glargine (Insulin Glargine, Human 1 Unit/0.01 Ml) 18 unit SQ BID [facility] Last Admin: 03/29/23 09:31 Dose: 18 units Insulin Human Lispro (Insulin Lispro 1 Unit/0.01 Ml Unit) 0 unit SQ [facility]; Protocol Last Admin: 03/29/23 11:15 Dose: Not Given Levothyroxine Sodium (Levothyroxine 125 Mcg Tablet) 125 mcg PO QAMAC [facility] Last Admin: 03/29/23 07:38 Dose: 125 mcg Melatonin (Melatonin 3 Mg Tablet) 3 mg PO HSP PRN PRN Reason: sleep Last Admin: 03/28/23 21:15 Dose: 3 mg Ondansetron HCl (Ondansetron 4 Mg/2 Ml Vial) 4 mg IV Q4-6HP PRN; Protocol PRN Reason: Nausea And Vomiting Last Admin: 03/25/23 21:47 Dose: 4 mg Oxycodone HCl (Oxycodone Ir 5 Mg Tablet) 5 mg PO BIDP PRN; Protocol PRN Reason: breakthrough pain Last Admin: 03/23/23 09:37 Dose: 5 mg Lipase-Protease- Amylase [Zenpep] 40, 000-126,000-168,000 Cap 1 dose PO TIDCC [facility] Last Admin: 03/29/23 11:56 Dose: 1 dose Betamethasone Valerate 0.1 % Ointment 1 dose TOPICAL BIDP PRN PRN Reason: psoriosis Promethazine HCl (Promethazine 25 Mg/Ml Vial) 12.5 mg IV Q4-6HP PRN; Protocol PRN Reason: Nausea And Vomiting Propranolol HCl (Propranolol 10 Mg Tablet) 10 mg PO TID [facility] Last Admin: 03/29/23 09:30 Dose: 10 mg Senna (Sennosides 1 Tablet) 1 tab PO HSP PRN PRN Reason: Constipation Last Admin: 03/23/23 02:21 Dose: 1 tab Sodium Chloride (0.9 % Sodium Chloride 10 Ml Syringe) 10 ml IV Q8 [facility] Last Admin: 03/29/23 05:27 Dose: 10 ml Tramadol HCl (Tramadol 50 Mg Tablet) 50 mg PO Q8HP PRN PRN Reason: Pain Last Admin: 03/28/23 21:15 Dose: 50 mg Trazodone HCl (Trazodone Hcl 100 Mg Tablet) 100 mg PO HSP [facility] Last Admin: 03/28/23 21:16 Dose: 100 mg Vitamin D (Vitamin D3 25 Mcg Tablet) 100 mcg PO DAILY [facility] Last Admin: 03/29/23 09:30 Dose: 100 mcg ABG Interpretation ABG results: 03/20/23 03/21/23 17:27 07:10 ABG Methemoglobin 0.4 0.6 VBG pH 7.06 L* 7.40 VBG pCO2 23.4 L 31.7 L VBG pO2 65.6 H 140.4 H VBG HCO3 6.5 L* 19.0 L VBG Total CO2 7.2 L* 19.9 L VBG O2 Saturation 84.7 H 92.2 H VBG Base Excess -22 L -5 L A/P Narrative A/P Narrative: A: #DKA/HHS, severe: improved -multiple admission, poor self-care at home #AG Metabolic acidosis: #DM2 Poorly controlled insulin-dependent w/neuropathy: -A1c 10.1 in December #SUDARSHAN w/Volume depletion: 2/2 above, improved #Hyponatremia: resolved #Hypokalemia/hypophosphatemia: #Generalized weakness/deconditioning: #h/o CAD: #Anemia, chronic: #Hypothyroidism: cont levothyroxine #Chronic pancreatitis: #Hypertriglyceridemia: #chronically elevated LFT's #Essential tremor: #chr back pain: #Long-term prognosis quite guarded with multiple admissions and poor compliance -6 admits 2021, 5 admits this year so far Plan: -SQ basal insulin and titrate, SSI -Monitor electrolytes closely Replace as needed -Monitor renal function, avoid nephrotoxic meds -Monitor UOP/fluid balance closely -cont asa/statin -Continue home duloxetine/gabapentin -Continue her home pancreatic enzyme supplements, levothyroxine, fenofibrate -pain meds for chronic pain -qhs snack when back on home regimen -PT/OT -CM for SNF placement, pt is not able to consistently care for herself at home even with twice weekly caregivers. -DVT prophylaxis: lovenox CODE STATUS: DNR Time Spent With Patient Time: Total time spent is greater than 50% in coordination of care (as documented) at patient's floor/unit and/or counseling patient: QUALITY Stroke Symptom Onset Unknown: No
--- NOTE | 2023-03-29 14:16 | Discharge Summary ---
Discharge Provider Provider IMPORTANT FOLLOW-UP INFORMATION FOR PCP: Patient information: Note initiated : 03/29/23 at 2:13 pm Service Date, if different from initiated Date: [] Patient: Tennille Castillo 77 y/o F admitted on 03/20/23. Chief Complaint: [] Date of admission: 03/20/23 16:52 Discharge date: 03/29/23 Primary care physician: Eugenio March MD Consults: 03/20/23 Consult to Physician [CONS] Stat Comment: Consulting Provider: Satish Bagley Reason For Exam: Physician to Consult COURSE Hospital Course Hospital course: Interval history: Ms. Castillo is a 77 year old female with history of diabetes mellitus 2, frequent DKA/HHS, chronic tremors, insomnia presented with 4 to 5 days history of nausea and vomiting and generalized weakness. Patient reported she was feeling sick, had vomiting once a day without any hematemesis, have some lower abdominal pain and was unable to take her insulin secondary to nausea. Patient reports mild constipation. She also is mildly confused as she cannot recall her insulin regimen however able to answer most questions appropriately. Patient reports she is feeling cold and fatigued and very weak. She reports no fever. No chest pain, no palpitations. Denies any cough, sputum production. Reports no urinary symptoms of dysuria, frequency. No recent travels or sick contacts. On presentation patient with tachypnea respiratory rate 26, tachycardia 99 bpm, blood pressure stable, afebrile. Lab work with leukocytosis of 14,000, chronic anemia with hemoglobin 10.8. Severe metabolic acidosis on VBG with pH 7.04, PC O2 16, HCO3 4.9, lactic acid 2.2. Hyponatremia of 119, hyperkalemia 7.3, hypochloremia 94, creatinine 1.6 up from 0.5 consistent with acute kidney injury, CO2 5, anion gap 36, glucose 868, beta-hydroxybutyrate elevated at 13. Negative troponin. EKG showed sinus rhythm at 88 bpm, mildly hyperacute T wave changes in anterior leads and nonspecific ST-T wave changes. Patient was started on DKA protocol and admitted to ICU. 03/21. Patient remains on IV insulin drip, glucose was down to 60s and was given D50 with appropriate improvement in blood glucose. Feels better but remains fatigued and tired. No nausea or vomiting. Some back pain. Discussed results of abdominal CT scan, no acute finding. Leukocytosis remains. Hyponatremia resolved. Anion gap closed, patient is still acidotic. Beta-hydroxybutyrate down to 0.42 from 13 03/22. Patient is feeling improved she is eating and drinking. Blood glucose this morning was between 200 and 300. Her insulin dose has been adjusted. Leukocytosis has resolved. Hemoglobin low but stable. Electrolytes within normal range. Hyponatremia resolved. Acidosis nearly resolved. LFTs elevated slightly more than baseline. Patient unsure about going home versus SNF. 03/23. Reports eating more however still has some nausea but no vomiting, abdominal discomfort is minimal. No fever or chills, leukocytosis is absent. Potassium is low at 2.7 and will be aggressively replaced. Patient was with relative hypoglycemia this morning. 03/24. Patient has brittle diabetes, her morning glucose today is 88 and yesterday was 72. Her insulin regimen has been adjusted. Patient reports no symptoms of hypoglycemia. After receiving potassium supplementation hypokalemia has resolved and potassium is 4.0 this morning. She has chronic LFTs elevati on, patient reports due to fatty liver. LFTs are improving. 03/25. No significant events overnight, vitals stable. Glycemic control stable. Stable morning labs, awaiting placement. 03/26. Vital stable overnight. Glycemic control satisfactory. Awaiting prior authorization for low intensity rehab. 03/27. No significant changes overnight. Awaiting placement. 03/28. Vitals stable, stable glycemic control, the patient has a good appetite. Awaiting placement. 03/29. Patient had a couple high-grade temperatures overnight, no fevers. Vitals otherwise normal. No leukocytosis this morning. The patient is resting comfortably today. Awaiting placement. 03/30 Patient did not qualify for SNF placement. We will plan for discharge with home health. Daughter would like to take her home today. Pt will no doubt return to hospital likely sooner than later due to poor self-care and inability to get into an assisted living facility, currently on waiting list. A: #DKA/HHS, severe: improved -multiple admission, poor self-care at home #AG Metabolic acidosis: #DM2 Poorly controlled insulin-dependent w/neuropathy: -A1c 10.1 in December #SUDARSHAN w/Volume depletion: #Hyponatremia: #Hypokalemia/hypophosphatemia: #Generalized weakness/deconditioning: #h/o CAD: #Anemia, chronic: #Hypothyroidism: #Chronic pancreatitis: #Hypertriglyceridemia: #chronically elevated LFT's #Essential tremor: #chr back pain: #Long-term prognosis quite guarded with multiple admissions and poor compliance -6 admits 2021, 5 admits this year so far Plan: -Needs to be place in an [facility] Discharge diagnosis: DKA HHS metabolic acidosis poorly controlled diabetes poor self-care SUDARSHAN Secondary discharge diagnosis: Electrolyte imbalance generalized weakness deconditioning history of CAD anemia hypothyroidism chronic pancreatitis hypertriglycerides colitis anemia left chronic LFTs elevated tremor chronic back pain Time Spent with Patient Time attestation: Total time spent providing and/or coordinating discharge services: Time spent: Greater than 30 minutes EXAM Constitutional Vitals: Temp Pulse Resp BP Pulse Ox O2 Del Method 98.4 F 71 16 127/63 100 Room Air 03/29/23 11:29 03/29/23 11:29 03/29/23 07:43 03/29/23 11:29 03/29/23 11:29 03/29/23 08:00 Discharge Data Data Completed and Pending Labs on day of discharge: Labs from last 24 hours 03/29/23 03/29/23 05:32 05:32 WBC 5.6 RBC 3.40 L Hgb 9.8 L Hct 30.8 L MCV 90.6 MCH 28.8 MCHC 31.8 RDW 14.5 Plt Count 160 MPV 11.0 Immature Gran % (Auto) 0.7 H Neut % (Auto) 45.3 Lymph % (Auto) 39.0 Nye % (Auto) 9.6 Eos % (Auto) 4.3 Baso % (Auto) 1.1 Lymph # (Auto) 2.19 Nye # (Auto) 0.54 Eos # (Auto) 0.24 Baso # (Auto) 0.06 Immature Gran # 0.04 Absolute Neutrophils 2.55 Sodium 139 Potassium 3.8 Chloride 106 Carbon Dioxide 26 Anion Gap 7.0 L BUN 21 Creatinine 0.6 GFR Calculation 88 Glucose 184 H Calcium 8.4 L Discharge Plan Patient/Caregiver Discharge Instructions Activity: increase activity as tolerated Diet: Renal/Consistent Carbs Instructions: Diabetic Ketoacidosis (GEN), Basic Carbohydrate Counting (GEN) Activity Restrictions/Additional Instructions: Continue with your current out patient Diabetic Education appointment. Prescriptions: Continued albuterol sulfate [ProAir HFA] 90 mcg/actuation HFA aerosol inhaler 2 puff inhalation .q4-6h PRN (Reason: cough, shortness of breath, wheezing) Qty: 8.5 0RF Rx Instructions: administer with spacer insulin degludec [Tresiba U-100 Insulin] 100 unit/mL solution 23 unit subcut BID 30 Days Qty: 13.8 0RF gabapentin 400 mg capsule 400 mg PO QIDP PRN (Reason: Pain) Qty: 120 0RF propranolol 10 mg tablet 10 mg PO TID Qty: 90 5RF trazodone 100 mg tablet 100 mg PO HSP betamethasone valerate 0.1 % ointment 1 applic topical BID PRN (Reason: psoriosis) melatonin 1 mg tablet 4 mg PO HS PRN (Reason: sleep) ibuprofen 200 mg tablet 200 mg PO Q6H PRN (Reason: Pain) aspirin 81 mg tablet,delayed release (DR/EC) 81 mg PO QDAY Qty: 90 3RF atorvastatin [Lipitor] 40 mg tablet 40 mg PO QDAY Qty: 60 0RF cholecalciferol (vitamin D3) [Vitamin D3] 50 mcg (2,000 unit) capsule 100 mcg PO DAILY levothyroxine 125 mcg tablet 1 tab PO QAM (DME) True Metrix Glucose Test Strip Strip 1 strip MISCELLANEOUS QID hyoscyamine sulfate 0.125 mg tablet,disintegrating 0.125 mg sublingual Q6HP PRN (Reason: muscle spasm) diphenhydramine HCl [Sleep Aid (diphenhydramine)] 50 mg Capsule 50 mg PO QHS Zenpep 40,000-126,000- 168,000 unit capsule,delayed release(DR/EC) 1 cap PO TIDCC insulin aspart U-100 [Novolog FlexPen U-100 Insulin] 100 unit/mL (3 mL) insulin pen See Rx Instructions .ROUTE .COMPLEX Rx Instructions: see original instructions tramadol 50 mg tablet 50 mg PO Q8H PRN (Reason: pain) Qty: 20 0RF oxycodone 5 mg tablet 5 mg PO BID PRN (Reason: breakthrough pain) Qty: 20 0RF Follow Up Plan Follow up with: Eugenio March MD [Primary Care Provider] - () Soni Brown RN, CDCES [Registered Nurse] - 04/03/23 1:00 pm (Continue with your current appointment.) Patient Disposition: Home Health Service Prognosis: Undetermined Overall status at discharge: patient is progressing back to baseline Discharge Orders: Discharge Order (Routine); Ordered 03/29/23 Ordered By: Jef Borges
[2023-03-30] MEDS ORDERED: ENOXAPARIN 40 MG/0.4 ML SYRINGE SQ SCH (09:00)
--- NOTE | 2023-04-01 07:11 | EKG ---
[facility] Test Date: 2023-03-20 Pat Name: Tennille Castillo Department: ED Room: Gender: Female Account Associate: : 1945 Requested By: Sharon Antoine Order Number: [id number] Reading MD: Will Lawler M.D. Measurements Intervals [place] Rate: 88 P: 77 NM: 203 QRS: 9 QRSD: 127 T: 77 QT: 415 QTc: 503 Interpretive Statements Sinus rhythm Nonspecific intraventricular conduction delay Electronically Signed On 04-01-2023 7:11:36 PDT by Will Lawler M.D. /[id number]
== END 2023-03-29 18:40 | disposition home health service (06) | DRG 638 ==
LOC: ED 11:21 → ICU 16:52 → MEDSUR 03-22 14:36
PROVIDERS: ADMIT Internal Medicine; ATTEND Internal Medicine

== ENCOUNTER 2023-06-22 18:51 | Inpatient (IN) ==
[2023-06-22] MEDS ORDERED: 0.9 % SODIUM CHLORIDE 1,000 ML IV ONE ×2 (19:03→19:31)
[2023-06-22 19:28] LABS: POC Blood Urea Nitrogen 28 (6-20); POC Calcium, Ionized 1.05 (1.16-1.32); POC Chloride 99 (96-108); POC Glucose, Random > 700 (70-105); POC Potassium 6.1 (3.3-5.1); POC Sodium 124 (133-145)
[2023-06-22] MEDS ORDERED: CALCIUM CHLORIDE 1,000 MG in DEXTROSE 5% IN WATER 50 ML IV ONE (19:28)
[2023-06-22] MEDS ORDERED: SODIUM BICARBONATE 50 MEQ/50 ML VIAL IV ONE (19:30)
[2023-06-22] MEDS ORDERED: INSULIN REGULAR, HUMAN 50 UNIT in 0.9 % SODIUM CHLORIDE 99.5 ML IV SCH (19:30)
[2023-06-22] MEDS ORDERED: morphine 2 MG/ML VIAL IV ONE ×2 (20:00→22:24)
[2023-06-22 20:41] LABS: ALT/SGPT 23 U/L (<40); AST/SGOT 21 U/L (<32); Alkaline Phosphatase 161 U/L (39-117); Basophils # (Auto) 0.08 K/mcL (0.00-0.30); Basophils % (Auto) 0.7 % (0.0-2.0); Bilirubin,Direct 0.3 mg/dL (<0.3); Bilirubin,Total 0.7 mg/dL (0.1-1.0); Eosinophils # (Auto) 0.01 K/mcL (0.00-0.70); Eosinophils % (Auto) 0.1 % (0.0-7.0); Globulin 3.4 gm/dL (2.2-3.7); Hematocrit 38.8 % (34.1-44.9); Hemoglobin 11.2 g/dL (11.2-15.7); Lymphocytes # (Auto) 1.36 K/mcL (1.50-4.80); Lymphocytes % (Auto) 11.8 % (15.5-49.0); Mean Cell Volume 94.6 fL (80.0-100.0); Mean Corpuscular HGB Conc 28.9 g/dL (31.0-36.0); Mean Platelet Volume 10.8 fL (8.8-12.5); Monocytes # (Auto) 0.49 K/mcL (0.10-0.90); Monocytes % (Auto) 4.3 % (1.0-12.0); Neutrophils % (Auto) 79.4 % (38.0-78.0); Platelet Count 369 K/mcL (140-440); WBC 11.5 K/mcL (4.5-11.0); proBNP 599.6 pg/mL (<450.0)
[2023-06-22 20:56] LABS: POC Blood Urea Nitrogen 25 (6-20); POC Calcium, Ionized 1.08 (1.16-1.32); POC Chloride 101 (96-108); POC Creatinine 0.9 (0.6-1.2); POC Glucose, Random > 700 (70-105); POC Potassium 5.9 (3.3-5.1); POC Sodium 127 (133-145)
[2023-06-22] MEDS ORDERED: 0.9 % SODIUM CHLORIDE 1,000 ML IV SCH (21:00)
[2023-06-22] MEDS: 0.9 % SODIUM CHLORIDE 250 ML IV SCH (23:00)
[2023-06-22] MEDS ORDERED: ALBUTEROL SULFATE 2.5 MG/3 ML NEBULIZER NEB PRN (23:15)
[2023-06-22] MEDS ORDERED: HYDROcodone/APAP 5/325MG TABLET PO PRN (23:15)
[2023-06-22] MEDS: 0.9 % SODIUM CHLORIDE 1,000 ML IV SCH (23:17)
[2023-06-22] MEDS: 0.9 % SODIUM CHLORIDE 10 ML SYRINGE IV SCH (23:24)
[2023-06-22] MEDS ORDERED: INSULIN REGULAR, HUMAN 1 UNIT/0.01 ML UNIT ONE (23:26)
[2023-06-23] MEDS ORDERED: INSULIN REGULAR, HUMAN 1 UNIT/0.01 ML UNIT ONE ×8 (00:03→19:20)
[2023-06-23] MEDS ORDERED: HYDROcodone/APAP 5/325MG TABLET PO ONE (00:18)
[2023-06-23 00:24] LABS: ABG Methemoglobin 0.3 % (0.4-1.5); Total Hemoglobin 10.7 gm/Dl (12.0-15.0); VBG Base Excess -17 (-2-3); VBG HCO3 8.8 mmol/L (24.0-28.0); VBG Oxygen Saturation 90.8 % (40.0-70.0); VBG PCO2 21.7 mmHg (41.0-51.0); VBG PH 7.23 U (7.32-7.42); VBG PO2 74.2 mmHg (25.0-40.0); VBG Total CO2 9.4 mmol/L (25.0-29.0)
[2023-06-23 00:49] LABS: Beta Hydroxybutyrate 7.21 mmol/L (<0.27)
[2023-06-23 00:50] LABS: Carbon Dioxide 8 mmol/L (22-30); Chloride 97 mmol/L (96-108)
[2023-06-23] MEDS: INSULIN REGULAR, HUMAN 50 UNIT in 0.9 % SODIUM CHLORIDE 99.5 ML IV SCH ×2 (01:14→20:17)
[2023-06-23] MEDS ORDERED: POTASSIUM CHLORIDE 20 MEQ in DEXTROSE 5% IN WATER 100 ML IV PRN (01:30)
[2023-06-23] MEDS: DEXTROSE 5%-1/2NS W/20MEQ KCL 1,000 ML IV SCH ×4 (03:15→15:30)
[2023-06-23 03:41] LABS: ABG Methemoglobin 0.1 % (0.4-1.5); Total Hemoglobin 10.2 gm/Dl (12.0-15.0); VBG Base Excess -9 (-2-3); VBG HCO3 15.8 mmol/L (24.0-28.0); VBG Oxygen Saturation 90.7 % (40.0-70.0); VBG PCO2 29.2 mmHg (41.0-51.0); VBG PH 7.35 U (7.32-7.42); VBG PO2 76.8 mmHg (25.0-40.0); VBG Total CO2 16.7 mmol/L (25.0-29.0)
[2023-06-23 03:55] LABS: Basophils # (Auto) 0.02 K/mcL (0.00-0.30); Basophils % (Auto) 0.2 % (0.0-2.0); Eosinophils # (Auto) 0.01 K/mcL (0.00-0.70); Eosinophils % (Auto) 0.1 % (0.0-7.0); Hematocrit 27.6 % (34.1-44.9); Hemoglobin 8.9 g/dL (11.2-15.7); Lymphocytes % (Auto) 17.4 % (15.5-49.0); Mean Cell Volume 85.7 fL (80.0-100.0); Mean Corpuscular HGB Conc 32.2 g/dL (31.0-36.0); Mean Platelet Volume 9.8 fL (8.8-12.5); Monocytes # (Auto) 1.03 K/mcL (0.10-0.90); Monocytes % (Auto) 8.5 % (1.0-12.0); Neutrophils % (Auto) 73.1 % (38.0-78.0); Platelet Count 267 K/mcL (140-440); RBC 3.22 M/mcL (3.59-5.38); Red Cell Distribution Width 15.2 % (11.5-14.5); WBC 12.1 K/mcL (4.5-11.0)
[2023-06-23 03:55] LABS: Appearance,Urine CLEAR (Clear); Bilirubin,Urine Negative (Negative); Color,Urine YELLOW; Culture Indicated,Urine No; Glucose,Urine (UA) >=500 mg/dL (Negative); Ketones,Urine 80 mg/dL (Negative); Leukocyte Esterase,Urine Negative /uL (Negative); Mucus,Urine FEW /hpf; Nitrate,Urine Negative (Negative); Protein,Urine Negative (Negative); Specific Gravity,Urine 1.018 (1.000-1.035); Urine Blood Negative (Negative); Urine Hyaline Cast 3 /lph (0-2); Urine RBC < 1 /hpf (0-3); Urine Squamous Epithelial Cell < 1 /hpf (0-4); Urine WBC 6 /hpf (0-4); Urobilinogen,Urine Negative
[2023-06-23 04:08] LABS: Hemoglobin A1C 12.6 % Hgb (4.0-6.0)
[2023-06-23] MEDS: 0.9 % SODIUM CHLORIDE 1,000 ML IV SCH (05:00)
[2023-06-23] MEDS: 0.9 % SODIUM CHLORIDE 10 ML SYRINGE IV SCH ×5 (05:00→22:00)
[2023-06-23] MEDS ORDERED: POTASSIUM CHLORIDE 20 MEQ in DEXTROSE 5% IN WATER 250 ML IV PRN (07:26)
[2023-06-23 08:52] LABS: Albumin 3.3 gm/dL (3.2-5.2); Blood Urea Nitrogen 29 mg/dL (8-23); Calcium 8.4 mg/dL (8.6-10.4); Carbon Dioxide 19 mmol/L (22-30); Chloride 105 mmol/L (96-108); Glomerular Filtration Rate 54; Glucose 151 mg/dL (70-105); Phosphorous 2.3 mg/dL (2.5-4.5)
[2023-06-23] MEDS ORDERED: IBUPROFEN 200 MG TABLET PO PRN (09:12)
[2023-06-23] MEDS: ENOXAPARIN 40 MG/0.4 ML SYRINGE SQ SCH ×2 (09:40→09:42)
[2023-06-23] MEDS: 0.9 % SODIUM CHLORIDE 250 ML IV SCH (12:26)
[2023-06-23 12:34] LABS: Albumin 3.3 gm/dL (3.2-5.2); Calcium 8.3 mg/dL (8.6-10.4); Phosphorous 2.1 mg/dL (2.5-4.5)
[2023-06-23] MEDS ORDERED: GABAPENTIN 400 MG CAPSULE PO PRN (16:29)
[2023-06-23] MEDS ORDERED: ALBUTEROL SULFATE 60 PUFF INHALER INH PRN (16:29)
[2023-06-23 16:57] LABS: Albumin 2.9 gm/dL (3.2-5.2); Phosphorous 1.5 mg/dL (2.5-4.5)
[2023-06-23] MEDS ORDERED: traMADol 50 MG TABLET PO PRN (19:20)
[2023-06-23] MEDS ORDERED: INSULIN REGULAR, HUMAN 1 UNIT/0.01 ML UNIT IV ONE (19:25)
[2023-06-23 20:41] LABS: Albumin 3.2 gm/dL (3.2-5.2); Calcium 8.3 mg/dL (8.6-10.4); Phosphorous 1.3 mg/dL (2.5-4.5)
[2023-06-23] MEDS: PROPRANOLOL 10 MG TABLET PO SCH (21:29)
[2023-06-23] MEDS: traZODone HCL 100 MG TABLET PO PRN (21:29)
[2023-06-23] MEDS: INSULIN GLARGINE, HUMAN 1 UNIT/0.01 ML SQ SCH (21:30)
[2023-06-23] MEDS ORDERED: 0.9 % SODIUM CHLORIDE 10 ML SYRINGE IV PRN (21:46)
[2023-06-23] MEDS: traMADol 50 MG TABLET PO PRN (23:25)
[2023-06-24] MEDS: 0.9 % SODIUM CHLORIDE 10 ML SYRINGE IV SCH ×6 (00:15→20:23)
[2023-06-24] MEDS: 0.9 % SODIUM CHLORIDE 250 ML IV SCH ×2 (00:27→13:03)
[2023-06-24 00:59] LABS: Calcium 8.1 mg/dL (8.6-10.4); Phosphorous 1.2 mg/dL (2.5-4.5)
[2023-06-24] MEDS: ACETAMINOPHEN 500 MG TABLET PO PRN ×3 (01:13→20:18)
[2023-06-24] MEDS ORDERED: POTASSIUM PHOSPHATE 40 MEQ in DEXTROSE 5% IN WATER 500 ML IV ONE (01:18)
[2023-06-24] MEDS ORDERED: POTASSIUM PHOSPHATE 66 MEQ/15 ML VIAL IV ONE (01:22)
[2023-06-24 06:58] LABS: ALT/SGPT 14 U/L (<40); AST/SGOT 22 U/L (<32); Albumin 2.7 gm/dL (3.2-5.2); Albumin/Globulin Ratio 1.4 (1.0-2.3); Alkaline Phosphatase 94 U/L (39-117); Bilirubin,Direct < 0.2 mg/dL (0-0.3); Bilirubin,Total 0.2 mg/dL (0.1-1.0); Blood Urea Nitrogen 17 mg/dL (8-23); Calcium 7.7 mg/dL (8.6-10.4); Carbon Dioxide 18 mmol/L (22-30); Chloride 107 mmol/L (96-108); Globulin 1.9 gm/dL (2.2-3.7); Glomerular Filtration Rate 71; Glucose 162 mg/dL (70-105); Lactate Dehydrogenase 136 U/L (135-225); Phosphorous 4.1 mg/dL (2.5-4.5); Triglycerides 68 mg/dL (<150); Uric Acid 5.1 mg/dL (2.5-8.0)
[2023-06-24 07:00] LABS: Basophils # (Auto) 0.02 K/mcL (0.00-0.30); Basophils % (Auto) 0.2 % (0.0-2.0); Eosinophils # (Auto) 0.06 K/mcL (0.00-0.70); Eosinophils % (Auto) 0.7 % (0.0-7.0); Hematocrit 24.1 % (34.1-44.9); Hemoglobin 7.6 g/dL (11.2-15.7); Lymphocytes # (Auto) 2.84 K/mcL (1.50-4.80); Mean Cell Volume 87.3 fL (80.0-100.0); Mean Corpuscular HGB Conc 31.5 g/dL (31.0-36.0); Mean Platelet Volume 10.2 fL (8.8-12.5); Monocytes % (Auto) 5.8 % (1.0-12.0); Neutrophils % (Auto) 59.8 % (38.0-78.0); Platelet Count 177 K/mcL (140-440); RBC 2.76 M/mcL (3.59-5.38); Red Cell Distribution Width 16.4 % (11.5-14.5); WBC 8.6 K/mcL (4.5-11.0)
[2023-06-24] MEDS ORDERED: DEXTROSE 31 GM ORAL.SUSP PO PRN (07:08)
[2023-06-24] MEDS ORDERED: DEXTROSE 50% 50 ML VIAL IV PRN (07:08)
[2023-06-24] MEDS: LEVOTHYROXINE 125 MCG TABLET PO SCH (07:08)
[2023-06-24] MEDS: INSULIN LISPRO 1 UNIT/0.01 ML UNIT SQ SCH ×4 (07:15→20:12)
[2023-06-24] MEDS ORDERED: DEXTROSE 50% 50 ML SYRINGE IV PRN (07:30)
[2023-06-24] MEDS: ATORVASTATIN 40 MG TABLET PO SCH (08:09)
[2023-06-24] MEDS: ASPIRIN 81 MG TAB.CHEW PO SCH (08:09)
[2023-06-24] MEDS: INSULIN GLARGINE, HUMAN 1 UNIT/0.01 ML SQ SCH ×2 (08:15→20:19)
[2023-06-24] MEDS: DULoxetine 20 MG CAPSULE PO SCH (08:15)
[2023-06-24] MEDS: ENOXAPARIN 40 MG/0.4 ML SYRINGE SQ SCH (08:16)
[2023-06-24] MEDS ORDERED: DULoxetine 20 MG CAPSULE PO SCH (09:00)
[2023-06-24] MEDS: PROPRANOLOL 10 MG TABLET PO SCH ×3 (09:52→20:19)
[2023-06-24] MEDS: traMADol 50 MG TABLET PO PRN (13:06)
[2023-06-25] MEDS: 0.9 % SODIUM CHLORIDE 250 ML IV SCH (01:06)
[2023-06-25] MEDS: 0.9 % SODIUM CHLORIDE 10 ML SYRINGE IV SCH ×3 (05:18→15:06)
[2023-06-25 06:59] LABS: Albumin 3.1 gm/dL (3.2-5.2); Blood Urea Nitrogen 11 mg/dL (8-23); Calcium 8.3 mg/dL (8.6-10.4); Carbon Dioxide 25 mmol/L (22-30); Chloride 106 mmol/L (96-108); Glomerular Filtration Rate 87; Glucose 68 mg/dL (70-105); Phosphorous 2.3 mg/dL (2.5-4.5)
[2023-06-25] MEDS: LEVOTHYROXINE 125 MCG TABLET PO SCH (07:38)
[2023-06-25] MEDS: INSULIN LISPRO 1 UNIT/0.01 ML UNIT SQ SCH ×4 (07:38→20:40)
[2023-06-25] MEDS: ASPIRIN 81 MG TAB.CHEW PO SCH (08:08)
[2023-06-25] MEDS: INSULIN GLARGINE, HUMAN 1 UNIT/0.01 ML SQ SCH ×2 (08:08→20:45)
[2023-06-25] MEDS: PROPRANOLOL 10 MG TABLET PO SCH ×3 (08:08→20:45)
[2023-06-25] MEDS: ENOXAPARIN 40 MG/0.4 ML SYRINGE SQ SCH (08:08)
[2023-06-25] MEDS: ATORVASTATIN 40 MG TABLET PO SCH (08:08)
[2023-06-25] MEDS: DULoxetine 20 MG CAPSULE PO SCH (08:08)
[2023-06-25] MEDS: traMADol 50 MG TABLET PO PRN (10:55)
[2023-06-25] MEDS ORDERED: IBUPROFEN 200 MG TABLET PO PRN (13:45)
[2023-06-25] MEDS ORDERED: BETAMETHASONE VALERATE 0.1% TOPICAL PRN (13:46)
[2023-06-25] MEDS: LIPASE PO SCH (16:30)
[2023-06-25] MEDS: AMYLASE PO SCH (16:30)
[2023-06-25] MEDS: PROTEASE PO SCH (16:30)
[2023-06-25] MEDS: ACETAMINOPHEN 500 MG TABLET PO PRN (18:13)
[2023-06-26] MEDS: INSULIN LISPRO 1 UNIT/0.01 ML UNIT SQ SCH ×4 (07:41→20:43)
[2023-06-26] MEDS: LEVOTHYROXINE 125 MCG TABLET PO SCH (07:42)
[2023-06-26] MEDS: LIPASE PO SCH ×3 (07:43→17:30)
[2023-06-26] MEDS: AMYLASE PO SCH ×3 (07:43→17:30)
[2023-06-26] MEDS: PROTEASE PO SCH ×3 (07:43→17:30)
[2023-06-26 08:18] LABS: Albumin 2.8 gm/dL (3.2-5.2); Blood Urea Nitrogen 6 mg/dL (8-23); Calcium 8.1 mg/dL (8.6-10.4); Carbon Dioxide 26 mmol/L (22-30); Chloride 100 mmol/L (96-108); Glomerular Filtration Rate 93; Glucose 200 mg/dL (70-105)
[2023-06-26] MEDS: ENOXAPARIN 40 MG/0.4 ML SYRINGE SQ SCH (08:31)
[2023-06-26] MEDS: ASPIRIN 81 MG TAB.CHEW PO SCH (08:32)
[2023-06-26] MEDS: ATORVASTATIN 40 MG TABLET PO SCH (08:32)
[2023-06-26] MEDS: DULoxetine 20 MG CAPSULE PO SCH (08:32)
[2023-06-26] MEDS: PROPRANOLOL 10 MG TABLET PO SCH ×3 (08:32→20:36)
[2023-06-26] MEDS: traMADol 50 MG TABLET PO PRN (10:35)
[2023-06-26] MEDS: INSULIN GLARGINE, HUMAN 1 UNIT/0.01 ML SQ SCH (20:36)
[2023-06-26] MEDS: traZODone HCL 100 MG TABLET PO PRN (20:44)
[2023-06-27] MEDS: traMADol 50 MG TABLET PO PRN ×2 (04:15→16:32)
[2023-06-27] MEDS: INSULIN LISPRO 1 UNIT/0.01 ML UNIT SQ SCH ×4 (07:08→21:17)
[2023-06-27] MEDS: LEVOTHYROXINE 125 MCG TABLET PO SCH (07:11)
[2023-06-27] MEDS: LIPASE PO SCH ×3 (07:20→16:29)
[2023-06-27] MEDS: AMYLASE PO SCH ×3 (07:20→16:29)
[2023-06-27] MEDS: PROTEASE PO SCH ×3 (07:20→16:29)
[2023-06-27] MEDS: DULoxetine 20 MG CAPSULE PO SCH (08:19)
[2023-06-27] MEDS: ASPIRIN 81 MG TAB.CHEW PO SCH (08:19)
[2023-06-27] MEDS: PROPRANOLOL 10 MG TABLET PO SCH ×3 (08:19→21:05)
[2023-06-27] MEDS: ATORVASTATIN 40 MG TABLET PO SCH (08:19)
[2023-06-27] MEDS: ENOXAPARIN 40 MG/0.4 ML SYRINGE SQ SCH (08:19)
[2023-06-27] MEDS: INSULIN GLARGINE, HUMAN 1 UNIT/0.01 ML SQ SCH (21:17)
[2023-06-28] MEDS: AMYLASE PO SCH ×4 (07:34→16:45)
[2023-06-28] MEDS: LIPASE PO SCH ×4 (07:34→16:45)
[2023-06-28] MEDS: INSULIN LISPRO 1 UNIT/0.01 ML UNIT SQ SCH ×4 (07:34→23:14)
[2023-06-28] MEDS: LEVOTHYROXINE 125 MCG TABLET PO SCH (07:34)
[2023-06-28] MEDS: PROTEASE PO SCH ×4 (07:34→16:45)
[2023-06-28] MEDS: ATORVASTATIN 40 MG TABLET PO SCH (08:26)
[2023-06-28] MEDS: DULoxetine 20 MG CAPSULE PO SCH (08:26)
[2023-06-28] MEDS: ASPIRIN 81 MG TAB.CHEW PO SCH (08:26)
[2023-06-28] MEDS: ENOXAPARIN 40 MG/0.4 ML SYRINGE SQ SCH (08:26)
[2023-06-28] MEDS: PROPRANOLOL 10 MG TABLET PO SCH ×3 (08:26→21:37)
[2023-06-28] MEDS ORDERED: INSULIN GLARGINE, HUMAN 1 UNIT/0.01 ML SQ SCH (11:17)
[2023-06-28] MEDS: INSULIN GLARGINE, HUMAN 1 UNIT/0.01 ML SQ SCH (21:37)
[2023-06-29] MEDS: LEVOTHYROXINE 125 MCG TABLET PO SCH (08:03)
[2023-06-29] MEDS: INSULIN LISPRO 1 UNIT/0.01 ML UNIT SQ SCH ×3 (08:03→17:01)
[2023-06-29] MEDS: PROTEASE PO SCH ×3 (08:04→17:02)
[2023-06-29] MEDS: LIPASE PO SCH ×3 (08:04→17:02)
[2023-06-29] MEDS: AMYLASE PO SCH ×3 (08:04→17:02)
[2023-06-29] MEDS: ENOXAPARIN 40 MG/0.4 ML SYRINGE SQ SCH ×2 (08:43→08:49)
[2023-06-29] MEDS: ASPIRIN 81 MG TAB.CHEW PO SCH (08:44)
[2023-06-29] MEDS: DULoxetine 20 MG CAPSULE PO SCH (08:44)
[2023-06-29] MEDS: PROPRANOLOL 10 MG TABLET PO SCH ×3 (08:44→21:00)
[2023-06-29] MEDS: ATORVASTATIN 40 MG TABLET PO SCH (08:44)
[2023-06-29] MEDS ORDERED: DEXTROSE 31 GM ORAL.SUSP PO PRN (13:24)
[2023-06-29] MEDS ORDERED: DEXTROSE 50% 50 ML VIAL IV PRN (13:24)
[2023-06-29] MEDS: INSULIN GLARGINE, HUMAN 1 UNIT/0.01 ML SQ SCH (21:00)
[2023-06-30] MEDS: INSULIN LISPRO 1 UNIT/0.01 ML UNIT SQ SCH ×5 (00:56→20:05)
[2023-06-30] MEDS: LEVOTHYROXINE 125 MCG TABLET PO SCH (07:49)
[2023-06-30] MEDS: DULoxetine 20 MG CAPSULE PO SCH (09:14)
[2023-06-30] MEDS: LIPASE PO SCH ×3 (09:14→17:53)
[2023-06-30] MEDS: PROTEASE PO SCH ×3 (09:14→17:53)
[2023-06-30] MEDS: ATORVASTATIN 40 MG TABLET PO SCH (09:14)
[2023-06-30] MEDS: PROPRANOLOL 10 MG TABLET PO SCH ×3 (09:14→19:58)
[2023-06-30] MEDS: AMYLASE PO SCH ×3 (09:14→17:53)
[2023-06-30] MEDS: ASPIRIN 81 MG TAB.CHEW PO SCH (09:14)
[2023-06-30] MEDS ORDERED: INSULIN GLARGINE, HUMAN 1 UNIT/0.01 ML SQ ONE (09:27)
[2023-06-30] MEDS: ENOXAPARIN 40 MG/0.4 ML SYRINGE SQ SCH (09:59)
[2023-06-30] MEDS: INSULIN GLARGINE, HUMAN 1 UNIT/0.01 ML SQ SCH (20:05)
[2023-06-30] MEDS ORDERED: INSULIN GLARGINE, HUMAN 1 UNIT/0.01 ML SQ SCH (21:00)
[2023-06-30] MEDS: traZODone HCL 100 MG TABLET PO PRN (22:27)
[2023-07-01] MEDS: traMADol 50 MG TABLET PO PRN (00:12)
[2023-07-01] MEDS: PROTEASE PO SCH ×2 (07:49→12:06)
[2023-07-01] MEDS: AMYLASE PO SCH ×2 (07:49→12:06)
[2023-07-01] MEDS: INSULIN LISPRO 1 UNIT/0.01 ML UNIT SQ SCH ×3 (07:49→13:37)
[2023-07-01] MEDS: LIPASE PO SCH ×2 (07:49→12:06)
[2023-07-01] MEDS: LEVOTHYROXINE 125 MCG TABLET PO SCH (07:49)
[2023-07-01] MEDS: DULoxetine 20 MG CAPSULE PO SCH (09:56)
[2023-07-01] MEDS: PROPRANOLOL 10 MG TABLET PO SCH (09:56)
[2023-07-01] MEDS: ASPIRIN 81 MG TAB.CHEW PO SCH (09:56)
[2023-07-01] MEDS: ENOXAPARIN 40 MG/0.4 ML SYRINGE SQ SCH (09:57)
[2023-07-01] MEDS: ATORVASTATIN 40 MG TABLET PO SCH (09:57)
[2023-07-01] MEDS: INSULIN GLARGINE, HUMAN 1 UNIT/0.01 ML SQ SCH (09:57)
== END 2023-07-01 13:40 | DRG 638 ==
LOC: ED 18:51 → ICU 22:58 → MEDSUR 06-26 15:54
PROVIDERS: ADMIT Internal Medicine; ATTEND Internal Medicine

== ENCOUNTER 2023-07-19 14:36 | Inpatient (IN) ==
[~2023-07-19 14:36] MED LIST: INSULIN REGULAR, HUMAN 1 UNIT/0.01 ML UNIT IV ONE
[2023-07-19] MEDS ORDERED: IOPAMIDOL 100 ML BOTTLE IV ONE (14:37)
[2023-07-19] MEDS ORDERED: 0.9 % SODIUM CHLORIDE 1,000 ML IV ONE (15:00)
[2023-07-19 15:47] LABS: POC Blood Urea Nitrogen 44 (6-20); POC Calcium, Ionized 1.12 (1.16-1.32); POC Chloride 100 (96-108); POC Creatinine 1.1 (0.6-1.2); POC Glucose, Random > 700 (70-105); POC Potassium 6.1 (3.3-5.1); POC Sodium 126 (133-145)
[2023-07-19] MEDS ORDERED: CALCIUM GLUCONATE 4.65 MEQ in DEXTROSE 5% IN WATER 50 ML IV ONE (16:00)
[2023-07-19] MEDS ORDERED: 0.9 % SODIUM CHLORIDE 1,000 ML IV SCH (16:15)
[2023-07-19 16:43] LABS: Basophils # (Auto) 0.04 K/mcL (0.00-0.30); Basophils % (Auto) 0.3 % (0.0-2.0); Eosinophils # (Auto) 0.03 K/mcL (0.00-0.70); Eosinophils % (Auto) 0.2 % (0.0-7.0); Hematocrit 31.4 % (34.1-44.9); Lymphocytes % (Auto) 8.8 % (15.5-49.0); Mean Cell Volume 90.8 fL (80.0-100.0); Mean Corpuscular HGB Conc 28.7 g/dL (31.0-36.0); Mean Platelet Volume 10.7 fL (8.8-12.5); Monocytes # (Auto) 0.91 K/mcL (0.10-0.90); Monocytes % (Auto) 6.1 % (1.0-12.0); Neutrophils % (Auto) 83.5 % (38.0-78.0); Platelet Count 279 K/mcL (140-440); RBC 3.46 M/mcL (3.59-5.38); Red Cell Distribution Width 14.4 % (11.5-14.5); WBC 14.8 K/mcL (4.5-11.0)
[2023-07-19 16:47] LABS: ALT/SGPT 40 U/L (<40); AST/SGOT 40 U/L (<32); Albumin 3.8 gm/dL (3.2-5.2); Alkaline Phosphatase 165 U/L (39-117); Bilirubin,Direct 0.3 mg/dL (<0.3); Bilirubin,Total 0.4 mg/dL (0.1-1.0); Globulin 2.8 gm/dL (2.2-3.7)
[2023-07-19] MEDS: INSULIN REGULAR, HUMAN 50 UNIT in 0.9 % SODIUM CHLORIDE 99.5 ML IV SCH (17:24)
[2023-07-19 17:30] LABS: Beta Hydroxybutyrate 11.95 mmol/L (<0.27)
[2023-07-19] MEDS ORDERED: INSULIN REGULAR, HUMAN 1 UNIT/0.01 ML UNIT IV ONE ×3 (17:58→23:05)
[2023-07-19] MEDS: 0.9 % SODIUM CHLORIDE 1,000 ML IV SCH (19:00)
[2023-07-19 19:14] LABS: Appearance,Urine CLEAR (Clear); Bacteria,Urine FEW /hpf (0); Bilirubin,Urine Negative (Negative); Color,Urine STRAW; Culture Indicated,Urine Yes; Glucose,Urine (UA) >=500 mg/dL (Negative); Ketones,Urine 20 mg/dL (Negative); Leukocyte Esterase,Urine Negative /uL (Negative); Nitrate,Urine Negative (Negative); Protein,Urine Negative (Negative); Specific Gravity,Urine 1.009 (1.000-1.035); Urine Blood 0.03 mg/dL (Negative); Urine RBC 0 /hpf (0-3); Urine Squamous Epithelial Cell < 1 /hpf (0-4); Urine WBC 1 /hpf (0-4); Urobilinogen,Urine Negative
[2023-07-19] MEDS ORDERED: POTASSIUM CHLORIDE 20 MEQ TABLET PO PRN (19:14)
[2023-07-19] MEDS ORDERED: MAGNESIUM SULFATE 2 GM/50 ML BAG IV PRN (19:14)
[2023-07-19] MEDS ORDERED: POTASSIUM CHLORIDE 40 MEQ in DEXTROSE 5% IN WATER 500 ML IV PRN (19:14)
[2023-07-19] MEDS ORDERED: SENNOSIDES 1 TABLET PO PRN (19:14)
[2023-07-19] MEDS ORDERED: POLYETHYLENE GLYCOL 3350 17 GM PACKET PO PRN (19:14)
[2023-07-19] MEDS ORDERED: ONDANSETRON 4 MG/2 ML VIAL IV PRN (19:14)
[2023-07-19] MEDS ORDERED: IPRATROPIUM/ALBUTEROL 3 ML AMPUL.NEB NEB PRN (19:14)
[2023-07-19 19:34] LABS: Blood Urea Nitrogen 49 mg/dL (8-23); Calcium 8.6 mg/dL (8.6-10.4); Carbon Dioxide 3 mmol/L (22-30); Chloride 89 mmol/L (96-108); Glomerular Filtration Rate 33; Glucose 882 mg/dL (70-105)
[2023-07-19] MEDS: DOCUSATE SODIUM 100 MG CAPSULE PO SCH (19:58)
[2023-07-19 20:38] LABS: Blood Urea Nitrogen 49 mg/dL (8-23); Calcium 8.4 mg/dL (8.6-10.4); Carbon Dioxide 4 mmol/L (22-30); Chloride 86 mmol/L (96-108); Glomerular Filtration Rate 36; Glucose 956 mg/dL (70-105)
[2023-07-19] MEDS ORDERED: GABAPENTIN 300 MG CAPSULE PO SCH (20:39)
[2023-07-19] MEDS ORDERED: INSULIN REGULAR, HUMAN 1 UNIT/0.01 ML UNIT ONE ×2 (22:06→23:04)
[2023-07-20] MEDS ORDERED: INSULIN REGULAR, HUMAN 1 UNIT/0.01 ML UNIT ONE ×2 (00:01→00:31)
[2023-07-20] MEDS: INSULIN REGULAR, HUMAN 50 UNIT in 0.9 % SODIUM CHLORIDE 99.5 ML IV SCH (00:36)
[2023-07-20] MEDS: 0.9 % SODIUM CHLORIDE 1,000 ML IV SCH (00:59)
[2023-07-20] MEDS: DEXTROSE 5%-1/2NS 1,000 ML IV SCH ×2 (02:01→08:47)
[2023-07-20] MEDS: traMADol 50 MG TABLET PO PRN ×3 (05:22→19:00)
[2023-07-20] MEDS: PANTOPRAZOLE 40 MG VIAL IV SCH (06:49)
[2023-07-20 07:33] LABS: Basophils # (Auto) 0.02 K/mcL (0.00-0.30); Basophils % (Auto) 0.1 % (0.0-2.0); Eosinophils # (Auto) 0.01 K/mcL (0.00-0.70); Eosinophils % (Auto) 0.1 % (0.0-7.0); Hematocrit 24.8 % (34.1-44.9); Hemoglobin 8.1 g/dL (11.2-15.7); Lymphocytes # (Auto) 1.59 K/mcL (1.50-4.80); Lymphocytes % (Auto) 11.8 % (15.5-49.0); Mean Cell Volume 81.8 fL (80.0-100.0); Mean Corpuscular HGB Conc 32.7 g/dL (31.0-36.0); Mean Platelet Volume 10.1 fL (8.8-12.5); Monocytes # (Auto) 1.45 K/mcL (0.10-0.90); Monocytes % (Auto) 10.7 % (1.0-12.0); Neutrophils % (Auto) 76.9 % (38.0-78.0); Platelet Count 231 K/mcL (140-440); RBC 3.03 M/mcL (3.59-5.38); Red Cell Distribution Width 13.7 % (11.5-14.5); WBC 13.5 K/mcL (4.5-11.0)
[2023-07-20 07:51] LABS: ALT/SGPT 33 U/L (<40); AST/SGOT 35 U/L (<32); Albumin 3.4 gm/dL (3.2-5.2); Albumin/Globulin Ratio 1.4 (1.0-2.3); Alkaline Phosphatase 135 U/L (39-117); Beta Hydroxybutyrate 1.37 mmol/L (<0.27); Bilirubin,Direct < 0.2 mg/dL (0-0.3); Bilirubin,Total 0.2 mg/dL (0.1-1.0); Blood Urea Nitrogen 44 mg/dL (8-23); Calcium 8.7 mg/dL (8.6-10.4); Carbon Dioxide 17 mmol/L (22-30); Chloride 106 mmol/L (96-108); Globulin 2.4 gm/dL (2.2-3.7); Glomerular Filtration Rate 43; Glucose 137 mg/dL (70-105); Lactate Dehydrogenase 189 U/L (135-225); Phosphorous 1.6 mg/dL (2.5-4.5); Triglycerides 73 mg/dL (<150); Uric Acid 12.7 mg/dL (2.5-8.0)
[2023-07-20] MEDS: DOCUSATE SODIUM 100 MG CAPSULE PO SCH (08:07)
[2023-07-20] MEDS: POTASSIUM CHLORIDE 20 MEQ TABLET PO PRN (08:38)
[2023-07-20] MEDS ORDERED: GABAPENTIN 400 MG CAPSULE PO PRN (08:58)
[2023-07-20] MEDS ORDERED: traZODone HCL 100 MG TABLET PO PRN (08:59)
[2023-07-20] MEDS: ENOXAPARIN 40 MG/0.4 ML SYRINGE SQ SCH (09:15)
[2023-07-20] MEDS: LEVOTHYROXINE 125 MCG TABLET PO SCH (09:28)
[2023-07-20] MEDS: ASPIRIN 81 MG TAB.CHEW PO SCH (09:28)
[2023-07-20] MEDS: DULoxetine 20 MG CAPSULE PO SCH (09:28)
[2023-07-20] MEDS: INSULIN GLARGINE, HUMAN 1 UNIT/0.01 ML SQ SCH ×2 (09:29→20:55)
[2023-07-20] MEDS: PROPRANOLOL 10 MG TABLET PO SCH ×3 (09:29→20:55)
[2023-07-20] MEDS: ATORVASTATIN 40 MG TABLET PO SCH (09:29)
[2023-07-20] MEDS ORDERED: POTASSIUM PHOSPHATE 40 MEQ in DEXTROSE 5% IN WATER 500 ML IV SCH (10:00)
[2023-07-20] MEDS ORDERED: VANCOMYCIN PER PHARMACY IV SCH (10:19)
[2023-07-20] MEDS ORDERED: 0.45 % SODIUM CHLORIDE 1,000 ML IV SCH (11:00)
[2023-07-20] MEDS: VANCOMYCIN 750 MG in 0.9 % SODIUM CHLORIDE 250 ML IV SCH (11:40)
[2023-07-20] MEDS ORDERED: INSULIN REGULAR, HUMAN 1 UNIT/0.01 ML UNIT IV ONE ×2 (12:14→14:08)
[2023-07-20] MEDS ORDERED: 0.9 % SODIUM CHLORIDE 1,000 ML IV SCH (12:30)
[2023-07-20] MEDS: LIPASE PROTEASE AMYLASE PO SCH ×2 (12:34→18:34)
[2023-07-20] MEDS: INSULIN LISPRO 1 UNIT/0.01 ML UNIT SQ SCH ×2 (16:23→20:30)
[2023-07-20] MEDS: ACETAMINOPHEN 325 MG TABLET PO PRN (16:24)
[2023-07-21] MEDS: traMADol 50 MG TABLET PO PRN ×4 (01:16→21:43)
[2023-07-21] MEDS: INSULIN LISPRO 1 UNIT/0.01 ML UNIT SQ SCH ×5 (04:07→21:42)
[2023-07-21 07:29] LABS: Basophils # (Auto) 0.05 K/mcL (0.00-0.30); Basophils % (Auto) 0.5 % (0.0-2.0); Eosinophils # (Auto) 0.11 K/mcL (0.00-0.70); Eosinophils % (Auto) 1.1 % (0.0-7.0); Hematocrit 24.5 % (34.1-44.9); Hemoglobin 7.6 g/dL (11.2-15.7); Lymphocytes # (Auto) 2.31 K/mcL (1.50-4.80); Lymphocytes % (Auto) 22.2 % (15.5-49.0); Mean Cell Volume 83.3 fL (80.0-100.0); Mean Platelet Volume 10.2 fL (8.8-12.5); Monocytes # (Auto) 0.61 K/mcL (0.10-0.90); Monocytes % (Auto) 5.9 % (1.0-12.0); Platelet Count 157 K/mcL (140-440); RBC 2.94 M/mcL (3.59-5.38); Red Cell Distribution Width 14.8 % (11.5-14.5); WBC 10.4 K/mcL (4.5-11.0)
[2023-07-21] MEDS: PANTOPRAZOLE 40 MG VIAL IV SCH (07:32)
[2023-07-21] MEDS: LEVOTHYROXINE 125 MCG TABLET PO SCH (07:32)
[2023-07-21 07:33] LABS: ALT/SGPT 26 U/L (<40); AST/SGOT 32 U/L (<32); Albumin 2.8 gm/dL (3.2-5.2); Albumin/Globulin Ratio 1.4 (1.0-2.3); Alkaline Phosphatase 113 U/L (39-117); Bilirubin,Direct < 0.2 mg/dL (0-0.3); Bilirubin,Total 0.2 mg/dL (0.1-1.0); Blood Urea Nitrogen 28 mg/dL (8-23); Calcium 7.9 mg/dL (8.6-10.4); Carbon Dioxide 18 mmol/L (22-30); Chloride 109 mmol/L (96-108); Glomerular Filtration Rate 83; Glucose 149 mg/dL (70-105); Lactate Dehydrogenase 184 U/L (135-225); Phosphorous 1.5 mg/dL (2.5-4.5); Triglycerides 102 mg/dL (<150); Uric Acid 7.6 mg/dL (2.5-8.0)
[2023-07-21] MEDS: POTASSIUM CHLORIDE 20 MEQ TABLET PO PRN (07:46)
[2023-07-21] MEDS: DULoxetine 20 MG CAPSULE PO SCH (07:46)
[2023-07-21] MEDS: PROPRANOLOL 10 MG TABLET PO SCH ×3 (07:46→21:43)
[2023-07-21] MEDS: ASPIRIN 81 MG TAB.CHEW PO SCH (07:47)
[2023-07-21] MEDS: ATORVASTATIN 40 MG TABLET PO SCH (07:47)
[2023-07-21] MEDS: PHOSPHORUS 250 MG TABLET PO SCH ×2 (08:07→21:42)
[2023-07-21] MEDS: NEUTRA PHOS 1 PACKET PO SCH ×2 (08:07→21:43)
[2023-07-21] MEDS: ENOXAPARIN 40 MG/0.4 ML SYRINGE SQ SCH (08:08)
[2023-07-21] MEDS: LIPASE PROTEASE AMYLASE PO SCH ×3 (08:08→16:38)
[2023-07-21] MEDS: INSULIN GLARGINE, HUMAN 1 UNIT/0.01 ML SQ SCH ×2 (08:08→21:42)
[2023-07-21] MEDS: VANCOMYCIN 750 MG in 0.9 % SODIUM CHLORIDE 250 ML IV SCH (11:41)
[2023-07-22] MEDS: traMADol 50 MG TABLET PO PRN ×2 (03:51→17:06)
[2023-07-22] MEDS: ACETAMINOPHEN 325 MG TABLET PO PRN (03:52)
[2023-07-22 06:33] LABS: Basophils # (Auto) 0.03 K/mcL (0.00-0.30); Basophils % (Auto) 0.5 % (0.0-2.0); Eosinophils # (Auto) 0.14 K/mcL (0.00-0.70); Eosinophils % (Auto) 2.2 % (0.0-7.0); Hemoglobin 8.4 g/dL (11.2-15.7); Lymphocytes # (Auto) 2.09 K/mcL (1.50-4.80); Lymphocytes % (Auto) 32.7 % (15.5-49.0); Mean Cell Volume 82.8 fL (80.0-100.0); Mean Corpuscular HGB Conc 31.1 g/dL (31.0-36.0); Mean Platelet Volume 10.3 fL (8.8-12.5); Monocytes # (Auto) 0.48 K/mcL (0.10-0.90); Monocytes % (Auto) 7.5 % (1.0-12.0); Neutrophils % (Auto) 56.9 % (38.0-78.0); Platelet Count 151 K/mcL (140-440); RBC 3.26 M/mcL (3.59-5.38); WBC 6.4 K/mcL (4.5-11.0)
[2023-07-22 07:00] LABS: ALT/SGPT 57 U/L (<40); AST/SGOT 124 U/L (<32); Albumin 2.9 gm/dL (3.2-5.2); Albumin/Globulin Ratio 1.2 (1.0-2.3); Alkaline Phosphatase 127 U/L (39-117); Bilirubin,Direct < 0.2 mg/dL (0-0.3); Bilirubin,Total 0.2 mg/dL (0.1-1.0); Blood Urea Nitrogen 16 mg/dL (8-23); Calcium 8.1 mg/dL (8.6-10.4); Carbon Dioxide 22 mmol/L (22-30); Chloride 106 mmol/L (96-108); Globulin 2.4 gm/dL (2.2-3.7); Glomerular Filtration Rate 87; Glucose 163 mg/dL (70-105); Lactate Dehydrogenase 241 U/L (135-225); Phosphorous 2.3 mg/dL (2.5-4.5); Triglycerides 89 mg/dL (<150); Uric Acid 4.7 mg/dL (2.5-8.0)
[2023-07-22] MEDS: PANTOPRAZOLE 40 MG VIAL IV SCH (07:47)
[2023-07-22] MEDS: INSULIN LISPRO 1 UNIT/0.01 ML UNIT SQ SCH ×4 (07:47→21:22)
[2023-07-22] MEDS: LIPASE PROTEASE AMYLASE PO SCH ×3 (07:58→17:06)
[2023-07-22] MEDS: LEVOTHYROXINE 125 MCG TABLET PO SCH (07:58)
[2023-07-22] MEDS: DULoxetine 20 MG CAPSULE PO SCH (08:33)
[2023-07-22] MEDS: INSULIN GLARGINE, HUMAN 1 UNIT/0.01 ML SQ SCH ×2 (08:33→21:21)
[2023-07-22] MEDS: ATORVASTATIN 40 MG TABLET PO SCH (08:33)
[2023-07-22] MEDS: PROPRANOLOL 10 MG TABLET PO SCH ×3 (08:33→21:21)
[2023-07-22] MEDS: ASPIRIN 81 MG TAB.CHEW PO SCH (08:33)
[2023-07-22] MEDS: ENOXAPARIN 40 MG/0.4 ML SYRINGE SQ SCH (08:35)
[2023-07-22] MEDS ORDERED: ACYCLOVIR 200 MG/5 ML PO SCH (09:30)
[2023-07-22] MEDS ORDERED: PHENOL/SODIUM PHENOLATE 5 SPRAY BOTTLE 180ML SSP PRN (09:57)
[2023-07-22] MEDS: valACYclovir 500 MG TABLET PO SCH (10:51)
[2023-07-22] MEDS: VANCOMYCIN 750 MG in 0.9 % SODIUM CHLORIDE 250 ML IV SCH (14:12)
[2023-07-22] MEDS: ceFAZolin 1 GM VIAL IV SCH ×2 (15:03→22:32)
[2023-07-22] MEDS: MELATONIN 3 MG TABLET PO SCH (19:41)
[2023-07-22] MEDS ORDERED: diphenhydrAMINE 25 MG CAPSULE PO PRN (21:00)
[2023-07-22] MEDS: traZODone HCL 100 MG TABLET PO SCH (21:21)
[2023-07-23] MEDS: ceFAZolin 1 GM VIAL IV SCH ×3 (05:50→22:47)
[2023-07-23] MEDS: LIPASE PROTEASE AMYLASE PO SCH ×3 (07:32→17:22)
[2023-07-23] MEDS: PANTOPRAZOLE 40 MG VIAL IV SCH (07:32)
[2023-07-23] MEDS: valACYclovir 500 MG TABLET PO SCH (07:32)
[2023-07-23] MEDS: INSULIN LISPRO 1 UNIT/0.01 ML UNIT SQ SCH ×4 (07:32→20:18)
[2023-07-23] MEDS: LEVOTHYROXINE 125 MCG TABLET PO SCH (07:32)
[2023-07-23 07:35] LABS: ALT/SGPT 41 U/L (<40); AST/SGOT 61 U/L (<32); Albumin 2.9 gm/dL (3.2-5.2); Albumin/Globulin Ratio 1.3 (1.0-2.3); Alkaline Phosphatase 121 U/L (39-117); Bilirubin,Direct < 0.2 mg/dL (0-0.3); Bilirubin,Total 0.3 mg/dL (0.1-1.0); Blood Urea Nitrogen 9 mg/dL (8-23); Calcium 8.1 mg/dL (8.6-10.4); Carbon Dioxide 27 mmol/L (22-30); Chloride 107 mmol/L (96-108); Globulin 2.2 gm/dL (2.2-3.7); Glomerular Filtration Rate 93; Glucose 55 mg/dL (70-105); Lactate Dehydrogenase 210 U/L (135-225); Phosphorous 2.5 mg/dL (2.5-4.5); Triglycerides 90 mg/dL (<150); Uric Acid 3.7 mg/dL (2.5-8.0)
[2023-07-23] MEDS: ENOXAPARIN 40 MG/0.4 ML SYRINGE SQ SCH (08:35)
[2023-07-23] MEDS: INSULIN GLARGINE, HUMAN 1 UNIT/0.01 ML SQ SCH ×2 (08:36→20:18)
[2023-07-23] MEDS: ATORVASTATIN 40 MG TABLET PO SCH (08:36)
[2023-07-23] MEDS: DULoxetine 20 MG CAPSULE PO SCH (08:36)
[2023-07-23] MEDS: PROPRANOLOL 10 MG TABLET PO SCH ×3 (08:36→20:19)
[2023-07-23] MEDS: ASPIRIN 81 MG TAB.CHEW PO SCH (08:36)
[2023-07-23] MEDS: POTASSIUM CHLORIDE 20 MEQ TABLET PO PRN (09:24)
[2023-07-23] MEDS: traMADol 50 MG TABLET PO PRN (15:07)
[2023-07-23 16:33] LABS: Hematocrit 31.6 % (34.1-44.9); Hemoglobin 9.6 g/dL (11.2-15.7)
[2023-07-23 16:43] LABS: Partial Thromboplastin Time 29.9 sec (20.0-37.0)
[2023-07-23 16:44] LABS: Prothrombin Time 13.9 sec (11.9-14.5)
[2023-07-23] MEDS: MELATONIN 3 MG TABLET PO SCH (20:19)
[2023-07-23] MEDS: traZODone HCL 100 MG TABLET PO SCH (20:19)
[2023-07-24] MEDS: ceFAZolin 1 GM VIAL IV SCH ×3 (05:13→21:46)
[2023-07-24 07:29] LABS: Blood Urea Nitrogen 15 mg/dL (8-23); Calcium 7.8 mg/dL (8.6-10.4); Carbon Dioxide 26 mmol/L (22-30); Chloride 104 mmol/L (96-108); Glomerular Filtration Rate 93; Glucose 299 mg/dL (70-105)
[2023-07-24] MEDS: INSULIN LISPRO 1 UNIT/0.01 ML UNIT SQ SCH ×4 (08:00→21:42)
[2023-07-24] MEDS: LEVOTHYROXINE 125 MCG TABLET PO SCH (08:01)
[2023-07-24] MEDS: PANTOPRAZOLE 40 MG VIAL IV SCH (08:01)
[2023-07-24] MEDS: LIPASE PROTEASE AMYLASE PO SCH ×3 (08:01→17:18)
[2023-07-24] MEDS: traMADol 50 MG TABLET PO PRN (10:05)
[2023-07-24] MEDS: PROPRANOLOL 10 MG TABLET PO SCH ×3 (10:31→21:41)
[2023-07-24] MEDS: INSULIN GLARGINE, HUMAN 1 UNIT/0.01 ML SQ SCH ×2 (10:31→21:42)
[2023-07-24] MEDS: ATORVASTATIN 40 MG TABLET PO SCH (10:31)
[2023-07-24] MEDS: DULoxetine 20 MG CAPSULE PO SCH (10:31)
[2023-07-24] MEDS: valACYclovir 500 MG TABLET PO SCH (10:32)
[2023-07-24] MEDS: MELATONIN 3 MG TABLET PO SCH (19:22)
[2023-07-24] MEDS: traZODone HCL 100 MG TABLET PO SCH (21:41)
[2023-07-25] MEDS: ceFAZolin 1 GM VIAL IV SCH ×3 (06:10→21:20)
[2023-07-25] MEDS: PANTOPRAZOLE 40 MG VIAL IV SCH (07:08)
[2023-07-25] MEDS: LEVOTHYROXINE 125 MCG TABLET PO SCH (07:08)
[2023-07-25] MEDS: LIPASE PROTEASE AMYLASE PO SCH ×3 (07:08→16:49)
[2023-07-25] MEDS: INSULIN LISPRO 1 UNIT/0.01 ML UNIT SQ SCH ×4 (07:55→20:28)
[2023-07-25] MEDS: valACYclovir 500 MG TABLET PO SCH (08:42)
[2023-07-25] MEDS: ATORVASTATIN 40 MG TABLET PO SCH (08:42)
[2023-07-25] MEDS: INSULIN GLARGINE, HUMAN 1 UNIT/0.01 ML SQ SCH ×2 (08:42→20:27)
[2023-07-25] MEDS: DULoxetine 20 MG CAPSULE PO SCH (08:43)
[2023-07-25] MEDS: PROPRANOLOL 10 MG TABLET PO SCH ×4 (08:55→20:08)
[2023-07-25] MEDS: traMADol 50 MG TABLET PO PRN ×2 (11:38→20:28)
[2023-07-25] MEDS: traZODone HCL 100 MG TABLET PO SCH (20:08)
[2023-07-25] MEDS: MELATONIN 3 MG TABLET PO SCH (20:08)
[2023-07-26] MEDS: ceFAZolin 1 GM VIAL IV SCH ×3 (05:14→21:11)
[2023-07-26] MEDS: LEVOTHYROXINE 125 MCG TABLET PO SCH (07:12)
[2023-07-26] MEDS: PANTOPRAZOLE 40 MG VIAL IV SCH (07:12)
[2023-07-26] MEDS: LIPASE PROTEASE AMYLASE PO SCH ×3 (07:12→16:27)
[2023-07-26] MEDS: INSULIN LISPRO 1 UNIT/0.01 ML UNIT SQ SCH ×4 (07:15→20:55)
[2023-07-26] MEDS: INSULIN GLARGINE, HUMAN 1 UNIT/0.01 ML SQ SCH ×2 (08:23→20:55)
[2023-07-26] MEDS: valACYclovir 500 MG TABLET PO SCH (08:24)
[2023-07-26] MEDS: PROPRANOLOL 10 MG TABLET PO SCH ×3 (08:24→20:55)
[2023-07-26] MEDS: ATORVASTATIN 40 MG TABLET PO SCH (08:24)
[2023-07-26] MEDS: DULoxetine 20 MG CAPSULE PO SCH (08:24)
[2023-07-26] MEDS: MELATONIN 3 MG TABLET PO SCH (20:55)
[2023-07-26] MEDS: traZODone HCL 100 MG TABLET PO SCH (20:55)
[2023-07-26] MEDS: traMADol 50 MG TABLET PO PRN (21:11)
[2023-07-27] MEDS: ceFAZolin 1 GM VIAL IV SCH ×3 (05:12→22:06)
[2023-07-27] MEDS: INSULIN LISPRO 1 UNIT/0.01 ML UNIT SQ SCH ×4 (07:51→21:09)
[2023-07-27] MEDS: PANTOPRAZOLE 40 MG VIAL IV SCH (07:52)
[2023-07-27] MEDS: LEVOTHYROXINE 125 MCG TABLET PO SCH (07:52)
[2023-07-27] MEDS: LIPASE PROTEASE AMYLASE PO SCH ×3 (07:53→16:39)
[2023-07-27] MEDS: DULoxetine 20 MG CAPSULE PO SCH (09:17)
[2023-07-27] MEDS: PROPRANOLOL 10 MG TABLET PO SCH ×3 (09:17→21:08)
[2023-07-27] MEDS: INSULIN GLARGINE, HUMAN 1 UNIT/0.01 ML SQ SCH ×2 (09:18→21:09)
[2023-07-27] MEDS: valACYclovir 500 MG TABLET PO SCH (09:18)
[2023-07-27] MEDS: ATORVASTATIN 40 MG TABLET PO SCH (09:18)
[2023-07-27] MEDS: MELATONIN 3 MG TABLET PO SCH (21:08)
[2023-07-27] MEDS: traZODone HCL 100 MG TABLET PO SCH (21:08)
[2023-07-28] MEDS: ceFAZolin 1 GM VIAL IV SCH ×4 (05:02→22:01)
[2023-07-28] MEDS: PANTOPRAZOLE 40 MG VIAL IV SCH (08:03)
[2023-07-28] MEDS: LEVOTHYROXINE 125 MCG TABLET PO SCH (08:03)
[2023-07-28] MEDS: INSULIN LISPRO 1 UNIT/0.01 ML UNIT SQ SCH ×4 (08:05→21:06)
[2023-07-28] MEDS: LIPASE PROTEASE AMYLASE PO SCH ×3 (08:08→17:33)
[2023-07-28] MEDS: DULoxetine 20 MG CAPSULE PO SCH (09:10)
[2023-07-28] MEDS: valACYclovir 500 MG TABLET PO SCH (09:10)
[2023-07-28] MEDS: ATORVASTATIN 40 MG TABLET PO SCH (09:10)
[2023-07-28] MEDS: PROPRANOLOL 10 MG TABLET PO SCH ×3 (09:10→21:05)
[2023-07-28] MEDS: INSULIN GLARGINE, HUMAN 1 UNIT/0.01 ML SQ SCH ×2 (09:12→21:06)
[2023-07-28] MEDS: traZODone HCL 100 MG TABLET PO SCH (21:06)
[2023-07-28] MEDS: MELATONIN 3 MG TABLET PO SCH (21:06)
[2023-07-28] MEDS: HEPARIN 5,000 UNIT/ML VIAL SQ SCH (21:15)
[2023-07-29] MEDS: ceFAZolin 1 GM VIAL IV SCH ×3 (05:30→21:27)
[2023-07-29] MEDS: HEPARIN 5,000 UNIT/ML VIAL SQ SCH ×3 (07:56→21:41)
[2023-07-29] MEDS: LIPASE PROTEASE AMYLASE PO SCH ×3 (07:57→16:51)
[2023-07-29] MEDS: LEVOTHYROXINE 125 MCG TABLET PO SCH (08:02)
[2023-07-29] MEDS: PANTOPRAZOLE 40 MG VIAL IV SCH (08:02)
[2023-07-29] MEDS: INSULIN LISPRO 1 UNIT/0.01 ML UNIT SQ SCH ×4 (08:02→21:45)
[2023-07-29] MEDS: INSULIN GLARGINE, HUMAN 1 UNIT/0.01 ML SQ SCH ×2 (08:53→21:27)
[2023-07-29] MEDS: ATORVASTATIN 40 MG TABLET PO SCH (08:54)
[2023-07-29] MEDS: DULoxetine 20 MG CAPSULE PO SCH (08:54)
[2023-07-29] MEDS: traMADol 50 MG TABLET PO PRN (08:54)
[2023-07-29] MEDS: PROPRANOLOL 10 MG TABLET PO SCH ×3 (09:06→21:26)
[2023-07-29] MEDS: MELATONIN 3 MG TABLET PO SCH (19:41)
[2023-07-29] MEDS: traZODone HCL 100 MG TABLET PO SCH (21:26)
[2023-07-30] MEDS: ceFAZolin 1 GM VIAL IV SCH ×3 (05:56→21:29)
[2023-07-30] MEDS: PANTOPRAZOLE 40 MG VIAL IV SCH (07:04)
[2023-07-30] MEDS: LEVOTHYROXINE 125 MCG TABLET PO SCH (07:04)
[2023-07-30] MEDS: PROPRANOLOL 10 MG TABLET PO SCH ×3 (08:17→21:29)
[2023-07-30] MEDS: INSULIN LISPRO 1 UNIT/0.01 ML UNIT SQ SCH ×4 (08:17→21:47)
[2023-07-30] MEDS: DULoxetine 20 MG CAPSULE PO SCH (08:17)
[2023-07-30] MEDS: ATORVASTATIN 40 MG TABLET PO SCH (08:17)
[2023-07-30] MEDS: INSULIN GLARGINE, HUMAN 1 UNIT/0.01 ML SQ SCH ×2 (08:17→21:29)
[2023-07-30] MEDS: LIPASE PROTEASE AMYLASE PO SCH ×3 (08:55→18:34)
[2023-07-30] MEDS: HEPARIN 5,000 UNIT/ML VIAL SQ SCH ×2 (08:55→21:31)
[2023-07-30] MEDS ORDERED: PNEUMOCOCCAL 23-VAL P-SAC VAC 0.5 ML SYRINGE IM ONE (10:00)
[2023-07-30] MEDS: traMADol 50 MG TABLET PO PRN (11:19)
[2023-07-30] MEDS: MELATONIN 3 MG TABLET PO SCH (19:32)
[2023-07-30] MEDS: traZODone HCL 100 MG TABLET PO SCH (21:29)
[2023-07-31] MEDS: ceFAZolin 1 GM VIAL IV SCH (05:46)
[2023-07-31] MEDS: ATORVASTATIN 40 MG TABLET PO SCH (08:05)
[2023-07-31] MEDS: PANTOPRAZOLE 40 MG VIAL IV SCH (08:05)
[2023-07-31] MEDS: LEVOTHYROXINE 125 MCG TABLET PO SCH (08:05)
[2023-07-31] MEDS: DULoxetine 20 MG CAPSULE PO SCH (08:06)
[2023-07-31] MEDS: LIPASE PROTEASE AMYLASE PO SCH (08:06)
[2023-07-31] MEDS: HEPARIN 5,000 UNIT/ML VIAL SQ SCH (08:06)
[2023-07-31] MEDS: INSULIN GLARGINE, HUMAN 1 UNIT/0.01 ML SQ SCH (08:13)
[2023-07-31] MEDS: PROPRANOLOL 10 MG TABLET PO SCH (08:13)
[2023-07-31] MEDS: INSULIN LISPRO 1 UNIT/0.01 ML UNIT SQ SCH (08:13)
== END 2023-07-31 10:55 | DRG 637 ==
LOC: ED 14:36 → ICU 18:50 → MEDSUR 07-21 19:30
PROVIDERS: ADMIT Internal Medicine; ATTEND Internal Medicine

== ENCOUNTER 2025-02-13 09:08 | Inpatient (IN) ==
[2025-02-13] MEDS ORDERED: IOPAMIDOL 100 ML BOTTLE IV ONE (09:09)
[2025-02-13] MEDS: IPRATROPIUM/ALBUTEROL 3 ML AMPUL.NEB NEB ONE (09:31)
[2025-02-13] MEDS: ERYTHROMYCIN OPHTH OINT 3.5GM TUBE OU ONE (09:35)
[2025-02-13] MEDS: methylPREDNISolone SOD SUCC 125 MG/2 ML VIAL IV ONE (09:42)
[2025-02-13] MEDS: ACETAMINOPHEN 1,000 MG/100 ML BAG IV ONE (09:44)
[2025-02-13 10:02] LABS: Basophils # (Auto) 0.02 K/mcL (0.00-0.30); Basophils % (Auto) 0.2 % (0.0-2.0); Eosinophils # (Auto) 0.03 K/mcL (0.00-0.70); Eosinophils % (Auto) 0.4 % (0.0-7.0); Hematocrit 36.5 % (34.1-44.9); Hemoglobin 11.3 g/dL (11.2-15.7); Lymphocytes % (Auto) 16.8 % (15.5-49.0); Mean Cell Volume 87.3 fL (80.0-100.0); Mean Platelet Volume 10.5 fL (8.8-12.5); Monocytes # (Auto) 0.93 K/mcL (0.10-0.90); Monocytes % (Auto) 11.2 % (1.0-12.0); Neutrophils % (Auto) 71.2 % (38.0-78.0); Platelet Count 168 K/mcL (140-440); RBC 4.18 M/mcL (3.59-5.38); Red Cell Distribution Width 14.1 % (11.5-14.5); WBC 8.3 K/mcL (4.5-11.0)
[2025-02-13 10:28] LABS: ALT/SGPT 12 U/L (<40); AST/SGOT 28 U/L (<32); Albumin 3.1 gm/dL (3.2-5.2); Albumin/Globulin Ratio 1.1 (1.0-2.3); Alkaline Phosphatase 115 U/L (39-117); Bilirubin,Total 0.6 mg/dL (0.1-1.0); Blood Urea Nitrogen 15 mg/dL (8-23); Calcium 8.4 mg/dL (8.6-10.4); Carbon Dioxide 23 mmol/L (22-30); Chloride 97 mmol/L (96-108); Globulin 2.8 gm/dL (2.2-3.7); Glomerular Filtration Rate 61; Glucose 193 mg/dL (70-105); Potassium 3.8 mmol/L (3.3-5.1); Sodium 132 mmol/L (133-145)
[2025-02-13] MEDS: LEVOFLOXACIN 750 MG/150 ML BAG IV ONE (10:32)
[2025-02-13 10:33] LABS: INR 1.2 (0.9-1.1); Prothrombin Time 16.3 sec (11.9-14.5)
[2025-02-13] MEDS: 0.9 % SODIUM CHLORIDE 500 ML IV ONE (11:40)
[2025-02-13] MEDS: 0.9 % SODIUM CHLORIDE 1,000 ML IV ONE (11:40)
[2025-02-13] MEDS ORDERED: SENNOSIDES 1 TABLET PO PRN (13:48)
[2025-02-13] MEDS ORDERED: DEXTROSE 31 GM ORAL.SUSP PO PRN (13:48)
[2025-02-13] MEDS ORDERED: POLYETHYLENE GLYCOL 3350 17 GM PACKET PO PRN (13:48)
[2025-02-13] MEDS ORDERED: METOCLOPRAMIDE 10 MG/2 ML VIAL IV PRN (13:48)
[2025-02-13] MEDS ORDERED: POTASSIUM CHLORIDE 20 MEQ TABLET PO PRN ×2 (13:48)
[2025-02-13] MEDS ORDERED: DEXTROSE 50% 50 ML VIAL IV PRN (13:48)
[2025-02-13] MEDS ORDERED: MAGNESIUM SULFATE 2 GM/50 ML BAG IV PRN (13:48)
[2025-02-13] MEDS ORDERED: POTASSIUM CHLORIDE 40 MEQ in DEXTROSE 5% IN WATER 500 ML IV PRN (13:48)
[2025-02-13] MEDS ORDERED: NITROGLYCERIN 0.4 MG TAB.SUBL SL PRN (14:12)
[2025-02-13] MEDS: MAGNESIUM SULFATE 2 GM/50 ML BAG IV ONE ×2 (14:37→14:44)
[2025-02-13] MEDS: 0.9 % SODIUM CHLORIDE 10 ML SYRINGE IV SCH (14:43)
[2025-02-13] MEDS: INSULIN LISPRO 1 UNIT/0.01 ML UNIT SQ SCH (17:30)
[2025-02-13] MEDS: PROTEASE PO SCH (17:37)
[2025-02-13] MEDS: LIPASE PO SCH (17:37)
[2025-02-13] MEDS: AMYLASE PO SCH (17:37)
[2025-02-13] MEDS: BUDESONIDE 0.5 MG/2 ML AMPUL.NEB NEB SCH (21:20)
[2025-02-13] MEDS: DOXEPIN 10 MG CAPSULE PO SCH (21:53)
[2025-02-13] MEDS: DOCUSATE SODIUM 100 MG CAPSULE PO SCH (21:53)
[2025-02-13] MEDS: methylPREDNISolone SOD SUCC 40 MG/ML VIAL IV SCH (21:53)
[2025-02-13] MEDS: GABAPENTIN 400 MG CAPSULE PO SCH (21:53)
[2025-02-13] MEDS: oxyCODONE IR 5 MG TABLET PO PRN (21:54)
[2025-02-13] MEDS: INSULIN GLARGINE, HUMAN 1 UNIT/0.01 ML SQ SCH (21:55)
[2025-02-14] MEDS: ACETAMINOPHEN 325 MG TABLET PO PRN (04:30)
[2025-02-14] MEDS: ONDANSETRON 4 MG/2 ML VIAL IV PRN (04:30)
[2025-02-14 05:53] LABS: Basophils # (Auto) 0.01 K/mcL (0.00-0.30); Basophils % (Auto) 0.1 % (0.0-2.0); Eosinophils # (Auto) 0 K/mcL (0.00-0.70); Eosinophils % (Auto) 0 % (0.0-7.0); Hematocrit 38.1 % (34.1-44.9); Hemoglobin 11.7 g/dL (11.2-15.7); Lymphocytes # (Auto) 0.92 K/mcL (1.50-4.80); Lymphocytes % (Auto) 7.7 % (15.5-49.0); Mean Cell Volume 88.2 fL (80.0-100.0); Mean Corpuscular HGB Conc 30.7 g/dL (31.0-36.0); Mean Platelet Volume 10.8 fL (8.8-12.5); Monocytes # (Auto) 0.34 K/mcL (0.10-0.90); Monocytes % (Auto) 2.8 % (1.0-12.0); Neutrophils % (Auto) 89.2 % (38.0-78.0); Platelet Count 169 K/mcL (140-440); RBC 4.32 M/mcL (3.59-5.38)
[2025-02-14 06:12] LABS: ALT/SGPT 15 U/L (<40); AST/SGOT 38 U/L (<32); Albumin 3.1 gm/dL (3.2-5.2); Alkaline Phosphatase 115 U/L (39-117); Bilirubin,Direct 0.2 mg/dL (<0.3); Bilirubin,Total 0.4 mg/dL (0.1-1.0); Blood Urea Nitrogen 23 mg/dL (8-23); Carbon Dioxide 24 mmol/L (22-30); Chloride 102 mmol/L (96-108); Glomerular Filtration Rate 70; Glucose 263 mg/dL (70-105); Lactate Dehydrogenase 189 U/L (135-225); Phosphorous 2.8 mg/dL (2.5-4.5); Potassium 3.8 mmol/L (3.3-5.1); Sodium 138 mmol/L (133-145); Triglycerides 50 mg/dL (<150); Uric Acid 8.3 mg/dL (2.5-8.0)
[2025-02-14 08:58] LABS: Hemoglobin A1C 8.5 % Hgb (4.0-6.0)
[2025-02-14] MEDS: IPRATROPIUM/ALBUTEROL 3 ML AMPUL.NEB NEB PRN (09:03)
[2025-02-14] MEDS: ATORVASTATIN 40 MG TABLET PO SCH (09:17)
[2025-02-14] MEDS: METOPROLOL SUCCINATE 25 MG TAB.XL.24H PO SCH (09:18)
[2025-02-14] MEDS: LEVOTHYROXINE 125 MCG TABLET PO SCH (09:20)
[2025-02-14] MEDS: ENOXAPARIN 40 MG/0.4 ML SYRINGE SQ SCH (09:21)
[2025-02-14] MEDS: 0.9 % SODIUM CHLORIDE 1,000 ML IV ONE (10:05)
[2025-02-14] MEDS: ASPIRIN 81 MG TAB.CHEW PO SCH (10:06)
[2025-02-14] MEDS: CYCLOBENZAPRINE 10 MG TABLET PO PRN (10:07)
[2025-02-14] MEDS: LEVOFLOXACIN 750 MG/150 ML BAG IV SCH (10:21)
[2025-02-14 13:12] LABS: Appearance,Urine Clear (Clear); Bilirubin,Urine Negative (Negative); Color,Urine Yellow; Glucose,Urine (UA) >=1000 mg/dL (Negative); Ketones,Urine Trace mg/dL (Negative); Leukocyte Esterase,Urine Negative /uL (Negative); Nitrate,Urine Negative (Negative); PH,Urine 5.5 (5.0-9.0); Protein,Urine Negative (Negative); Urine Blood Negative ery/mcL (Negative); Urine RBC 0 /hpf (0-3); Urine Squamous Epithelial Cell 0 /hpf (0-4); Urine WBC 0 /hpf (0-4); Urobilinogen,Urine Normal
[2025-02-15 06:34] LABS: C-Reactive Protein 7.22 mg/dL (0.03-0.80)
[2025-02-15] MEDS: predniSONE 20 MG TABLET PO SCH (08:38)
[2025-02-15] MEDS: guaiFENesin/CODEINE 10 ML UDC PO SCH (10:49)
[2025-02-15] MEDS: guaiFENesin/CODEINE 10 ML UDC PO PRN (14:16)
[2025-02-15] MEDS: traZODone HCL 100 MG TABLET PO PRN (23:09)
[2025-02-15] MEDS: MELATONIN 3 MG TABLET PO PRN (23:09)
[2025-02-16 07:44] LABS: ALT/SGPT 58 U/L (<40); AST/SGOT 112 U/L (<32); Albumin 3.1 gm/dL (3.2-5.2); Albumin/Globulin Ratio 1.3 (1.0-2.3); Alkaline Phosphatase 111 U/L (39-117); Bilirubin,Direct < 0.2 mg/dL (0-0.3); Bilirubin,Total 0.3 mg/dL (0.1-1.0); Blood Urea Nitrogen 13 mg/dL (8-23); C-Reactive Protein 3.78 mg/dL (0.03-0.80); Calcium 8.8 mg/dL (8.6-10.4); Carbon Dioxide 25 mmol/L (22-30); Chloride 106 mmol/L (96-108); Globulin 2.3 gm/dL (2.2-3.7); Glomerular Filtration Rate 82; Glucose 221 mg/dL (70-105); Lactate Dehydrogenase 206 U/L (135-225); Phosphorous 3.1 mg/dL (2.5-4.5); Potassium 4.5 mmol/L (3.3-5.1); Sodium 140 mmol/L (133-145); Triglycerides 57 mg/dL (<150); Uric Acid 6.7 mg/dL (2.5-8.0)
[2025-02-16 11:28] VITALS: TEMP 98.7; O2SAT 98
== END 2025-02-16 12:03 | DRG 190 ==
LOC: ED 09:08 → MEDSUR 13:35
PROVIDERS: ADMIT Internal Medicine; ATTEND Internal Medicine